=== PATIENT | female | born 1950 | race Caucasian/White ===

== ENCOUNTER → 2016-03-21 | Outpatient (CLI) | payer MEDICARE, BC ==
--- NOTE | 2016-03-21 13:51 | MM ---
Reason for exam: additional evaluation requested from prior study. Last mammogram was performed 1 year and 5 months ago. History: Patient is postmenopausal and history of other cancer. 2 implant removals of both breasts, 1997. Silicone gel implants in both breasts, 1973. Took estrogen for 5 years beginning at age 53. Took progesterone for 5 years beginning at age 53. Physical Findings: Nurse did not find any significant physical abnormalities on exam. MG 3D Diag Mammo W/Cad SLOANE Bilateral CC and MLO view(s) were taken. Prior study comparison: October 27, 2014, bilateral MG screening mammo w CAD. August 19, 2013, bilateral MG diagnostic mammo w CAD SLOANE. There are scattered fibroglandular densities. No significant new findings when compared with previous films. These results were verbally communicated with the patient and result sheet given to the patient on 03/21/16. ASSESSMENT: Benign, BI-RAD 2 RECOMMENDATION: Routine screening mammogram of both breasts in 1 year.
== END | disposition home or self-care (01) ==
LOC: RADMAMWWP 12:53
PROVIDERS: ATTEND Obstetrics & Gynecology
DX: R92.8 Other abnormal and inconclusive findings on diagnostic imaging of breast (principal)
CPT/HCPCS: G0204; G0279

== ENCOUNTER → 2016-11-25 | Outpatient (CLI) | payer MEDICARE ==
[2016-11-25 14:20] LABS: CH 33.5; CHCM 33.3; HCT 31.4 % (34.0-46.0); HDW 2.67; HGB 10.7 gm/dL (11.4-16.0); MCH 34.2 pg (25.0-35.0); MCHC 33.9 g/dL (31.0-37.0); MCV 100.9 fL (80.0-100.0); Macrocytosis Slight; Mean Platelet Volume 7.4; RBC 3.11 m/uL (3.80-5.40); RDW 15.2 % (11.5-15.5); WBC 5.2 k/uL (3.8-10.6)
[2016-11-25 14:25] LABS: Calcium 11.3 mg/dL (8.4-10.2); Potassium 4.4 mmol/L (3.5-5.1)
[2016-11-25 18:36] LABS: Iron Saturation 27.37 (12.00-45.00)
== END | disposition home or self-care (01) ==
LOC: LABWHC1 13:41
PROVIDERS: ATTEND Family Medicine
DX: R89.9 Unspecified abnormal finding in specimens from other organs, systems and tissues (principal)
CPT/HCPCS: 36415; 80048; 82728; 83540; 83550; 85027

== ENCOUNTER → 2016-11-25 | Outpatient (CLI) | payer MEDICARE ==
--- NOTE | 2016-11-25 16:06 | US ---
EXAMINATION TYPE: US kidneys/renal and bladder DATE OF EXAM: 11/25/2016 COMPARISON: [place] IVP 2010 CLINICAL HISTORY: R82.71 BACTERIURIA. Left renal stone; leukocyte esterase in urine; on Methotrexate for RA. EXAM MEASUREMENTS: Right Kidney: 10.5 x 4.8 x 3.7 cm Left Kidney: 10.6 x 4.1 x 3.7 cm Post Void Residual Volume: 0.2 mL Right Kidney: No hydronephrosis or masses seen Left Kidney: Hyperechoic, shadowing renal calcification is noted mid pole = 0.6 x 0.8 x 0.3cm Bladder: wnl Bilateral Jets seen: YesNormal Post Void Residual: Yes Cortical medullary differentiation is maintained bilaterally. IMPRESSION: Nonobstructive left nephrolithiasis.
== END | disposition home or self-care (01) ==
LOC: RADUSWWP 13:07
PROVIDERS: ATTEND Family Medicine
DX: N20.0 Calculus of kidney (principal); R82.71 Bacteriuria
CPT/HCPCS: 76770

== ENCOUNTER → 2016-12-23 | Outpatient (CLI) | payer MEDICARE ==
--- NOTE | 2016-12-25 12:45 | NM ---
EXAMINATION TYPE: NM bone scan whole body DATE OF EXAM: 12/23/2016 COMPARISON: NONE HISTORY: Pleural dyspnea Delayed whole-body scanning was performed following the injection of 27.7 mCi Tc 99m MDP. Images wer e acquired 3.5 hours post injection. FINDINGS: Spot images were obtained: There is some focal uptake in the lateral left 9th rib region. Posttraumatic change could be consider ed. Some slightly more subtle 8th rib uptake may be adjacent. There are couple of focal areas of uptake at the costovertebral junctions posterior left eighth and f ifth regions. This could be degenerative or posttraumatic. Whole-body imaging is performed. Some degenerative type uptake is at the bilateral shoulders and at t he ankles. Some degenerative type change appears to be at the bilateral hips. IMPRESSION: 1. Focal uptake left lateral ribs, most likely the eighth and ninth ribs, can be compatible with post traumatic change. Adjacent metastatic disease would be unusual. 2. Posterior left costovertebral junction uptake at the fifth and eighth levels most likely is degene rative. Posttraumatic change could be considered.
== END | disposition home or self-care (01) ==
LOC: RADBDWWP 11:33
PROVIDERS: ATTEND Family Medicine
DX: R07.81 Pleurodynia (principal)
CPT/HCPCS: 78306; A9503

== ENCOUNTER 2017-01-28 18:31 | Emergency (ER) | payer MEDICARE ==
[2017-01-28] MEDS ORDERED: SODIUM CHLORIDE 0.9% 500 ML IV STA (19:22)
[2017-01-28] MEDS ORDERED: MORPHINE SULFATE 2 MG/ML SYRINGE IVP STA (19:22)
[2017-01-28] MEDS ORDERED: SODIUM CHLORIDE 0.9% 1,000 ML IV STA (19:22)
--- NOTE | 2017-01-28 19:23 | ED ---
Recheck HPI - General Chief Complaint: Recheck/Abnormal Lab/Rx Stated Complaint: left rib pain Time Seen by Provider: 01/28/17 18:50 Source: patient, RN notes reviewed, old records reviewed Mode of arrival: ambulatory Limitations: no limitations - History of Present Illness Initial Comments: Patient is a 66-year-old female presents emergency Department chief complaint of left-sided rib pain has been intermittent since October. She reports that she 's been seen by her primary care provider multiple times. She states that they did bone scans which told her that she had a posttraumatic area over her ribs. She states that she's never had any falls or injuries to cause the pain. She denies any fever or chills. She reports is just getting over cold whenever she coughs or takes a deep breath she has to be. Patient states that she has been taking a lot of Motrin and was told that she has damaged her kidneys. She states that the pain is a 10 out of 10 whenever she takes a big deep breath. She denies any nausea or vomiting. She reports that she's had this occasional diarrhea as well. Patient states that she's had no falls or traumas to make the pain worse. It has been increasingly painful over the past 2 days. - Related Data Home Medications Medication Instructions Recorded Confirmed Brimonidine Tartrate [Alphagan P 1 drops BOTH EYES BID 01/28/17 01/28/17 0.1% Ophth Soln] Clopidogrel [Plavix] 75 mg PO W/LUNCH 01/28/17 01/28/17 Latanoprost Ophth [Xalatan 0.005%] 1 drops BOTH EYES HS 01/28/17 01/28/17 Losartan Potassium [Cozaar] 25 mg PO W/SUPPER 01/28/17 01/28/17 Methotrexate Sodium [Methotrexate] 12.5 mg PO GOMEZ 01/28/17 01/28/17 Rosuvastatin Calcium [Crestor] 5 mg PO MOWEFR 01/28/17 01/28/17 Sertraline [Zoloft] 200 mg PO W/LUNCH 01/28/17 01/28/17 Timolol [Betimol 0.5% Ophth Soln] 1 drop LEFT EYE BID 01/28/17 01/28/17 Previous Rx's Medication Instructions Recorded HYDROcodone/APAP 5-325MG [Alpine 1 tab PO Q6HR PRN #15 tab 01/28/17 5-325] Ondansetron Odt [Zofran Odt] 4 mg PO Q8HR PRN #15 tab 01/28/17 Allergies Allergy/AdvReac Type Severity Reaction Status Date / Time ciprofloxacin HCl Allergy Unknown Verified 01/28/17 19:12 [From Cipro] codeine Allergy Unknown Verified 01/28/17 19:12 Sulfa (Sulfonamide Allergy Unknown Verified 01/28/17 19:12 Antibiotics) Review of Systems ROS Statement: Those systems with pertinent positive or pertinent negative responses have been documented in the HPI. ROS Other: All systems not noted in ROS Statement are negative. Past Medical History Past Medical History: CVA/TIA, Rheumatoid Arthritis (RA) History of Any Multi-Drug Resistant Organisms: None Reported Past Surgical History: Back Surgery Past Psychological History: No Psychological Hx Reported Smoking Status: Current every day smoker Past Alcohol Use History: None Reported Past Drug Use History: None Reported General Exam - General Exam Comments Initial Comments: 66-year-old female. No acute distress. Limitations: no limitations General appearance: alert, in no apparent distress Head exam: Present: atraumatic, normocephalic, normal inspection Eye exam: Present: normal appearance, PERRL, EOMI. Absent: scleral icterus, conjunctival injection, periorbital swelling ENT exam: Present: normal exam, mucous membranes moist Neck exam: Present: normal inspection. Absent: tenderness, meningismus, lymphadenopathy Respiratory exam: Present: normal lung sounds bilaterally, chest wall tenderness (Patient has significant left-sided rib and chest wall tenderness.). Absent: respiratory distress, wheezes, rales, rhonchi, stridor Cardiovascular Exam: Present: regular rate, normal rhythm, normal heart sounds. Absent: systolic murmur, diastolic murmur, rubs, gallop, clicks GI/Abdominal exam: Present: soft, normal bowel sounds. Absent: distended, tenderness, guarding, rebound, rigid Extremities exam: Present: normal inspection, full ROM, normal capillary refill. Absent: tenderness, pedal edema, joint swelling, calf tenderness Back exam: Present: normal inspection Neurological exam: Present: alert, oriented X3, CN II-XII intact Psychiatric exam: Present: normal affect, normal mood Skin exam: Present: warm Course Vital Signs 01/28/17 01/28/17 18:39 20:43 Temperature 97.8 F Pulse Rate 96 Respiratory 18 18 Rate Blood Pressure 123/57 O2 Sat by Pulse 100 Oximetry Medical Decision Making - Medical Decision Making 66-year-old female presents emergency Department chief complaint of left-sided rib pain for the past few months due to intermittent periods and worse over the past few days. Worse over deep breath breath and coughing. Patient has significant tenderness to palpation over the left-sided rib cage. Patient labwork was reviewed, she has a known history of poor renal function, GFR today is 29. This is slightly improved from labs in November. We discussed that she cannot take any anti-inflammatory medicine as this will cause her kidney function to worsen. Patient has a history of rheumatoid arthritis as well. I discussed that combination of COPD causing chronic coughing plus are is most likely the cause of her rib pain. Discussed that she needs to follow-up with her primary care provider. Patient at this time will be discharged with pain medication and nausea medicine and she reports she does feel safe occasional she takes pain medicine. Patient will be discharged at this time. All questions were answered return parameters were discussed. - Lab Data Result diagrams: 01/28/17 19:40 01/28/17 19:40 Lab Results 01/28/17 01/28/17 01/28/17 Range/Units 19:40 19:40 19:40 WBC 6.5 (3.8-10.6) k/uL RBC 2.87 L (3.80-5.40) m/uL Hgb 9.6 L (11.4-16.0) gm/dL Hct 28.7 L (34.0-46.0) % MCV 100.2 H (80.0-100.0) fL MCH 33.6 (25.0-35.0) pg MCHC 33.5 (31.0-37.0) g/dL RDW 15.9 H (11.5-15.5) % Plt Count 193 (150-450) k/uL Neutrophils % 62 % Lymphocytes % 29 % Monocytes % 3 % Eosinophils % 3 % Basophils % 0 % Neutrophils # 4.0 (1.3-7.7) k/uL Lymphocytes # 1.9 (1.0-4.8) k/uL Monocytes # 0.2 (0-1.0) k/uL Eosinophils # 0.2 (0-0.7) k/uL Basophils # 0.0 (0-0.2) k/uL Macrocytosis Slight PT (9.0-12.0) sec INR (<1.2) APTT (22.0-30.0) sec Sodium 142 (137-145) mmol/L Potassium 4.2 (3.5-5.1) mmol/L Chloride 110 H (98-107) mmol/L Carbon Dioxide 21 L (22-30) mmol/L Anion Gap 11 mmol/L BUN 30 H (7-17) mg/dL Creatinine 2.10 H (0.52-1.04) mg/dL Est GFR (MDRD) Af Amer 29 (>60 ml/min/1.73 sqM) Est GFR (MDRD) Non-Af 24 (>60 ml/min/1.73 sqM) Glucose 126 H (74-99) mg/dL Calcium 10.0 (8.4-10.2) mg/dL Magnesium 2.0 (1.6-2.3) mg/dL Total Bilirubin 0.2 (0.2-1.3) mg/dL AST 23 (14-36) U/L ALT 32 (9-52) U/L Alkaline Phosphatase 72 (38-126) U/L Total Creatine Kinase 45 (30-135) U/L CK-MB (CK-2) 0.9 (0.0-2.4) ng/mL CK-MB (CK-2) Rel Index 2.0 Troponin I <0.012 (0.000-0.034) ng/mL C-Reactive Protein (<10.0) mg/L Total Protein 6.7 (6.3-8.2) g/dL Albumin 4.4 (3.5-5.0) g/dL Amylase 70 (30-110) U/L Lipase 157 (23-300) U/L 01/28/17 01/28/17 Range/Units 19:40 19:40 WBC (3.8-10.6) k/uL RBC (3.80-5.40) m/uL Hgb (11.4-16.0) gm/dL Hct (34.0-46.0) % MCV (80.0-100.0) fL MCH (25.0-35.0) pg MCHC (31.0-37.0) g/dL RDW (11.5-15.5) % Plt Count (150-450) k/uL Neutrophils % % Lymphocytes % % Monocytes % % Eosinophils % % Basophils % % Neutrophils # (1.3-7.7) k/uL Lymphocytes # (1.0-4.8) k/uL Monocytes # (0-1.0) k/uL Eosinophils # (0-0.7) k/uL Basophils # (0-0.2) k/uL Macrocytosis PT 10.3 (9.0-12.0) sec INR 1.0 (<1.2) APTT 23.2 (22.0-30.0) sec Sodium (137-145) mmol/L Potassium (3.5-5.1) mmol/L Chloride (98-107) mmol/L Carbon Dioxide (22-30) mmol/L Anion Gap mmol/L BUN (7-17) mg/dL Creatinine (0.52-1.04) mg/dL Est GFR (MDRD) Af Amer (>60 ml/min/1.73 sqM) Est GFR (MDRD) Non-Af (>60 ml/min/1.73 sqM) Glucose (74-99) mg/dL Calcium (8.4-10.2) mg/dL Magnesium (1.6-2.3) mg/dL Total Bilirubin (0.2-1.3) mg/dL AST (14-36) U/L ALT (9-52) U/L Alkaline Phosphatase (38-126) U/L Total Creatine Kinase (30-135) U/L CK-MB (CK-2) (0.0-2.4) ng/mL CK-MB (CK-2) Rel Index Troponin I (0.000-0.034) ng/mL C-Reactive Protein <5.0 (<10.0) mg/L Total Protein (6.3-8.2) g/dL Albumin (3.5-5.0) g/dL Amylase (30-110) U/L Lipase (23-300) U/L 01/28/17 21:07 EKG shows normal sinus rhythm, ventricular rate of 82 bpm. WV interval 196 ms. QRS duration 76. QT QTC reports that 397 ms. No evidence of ST elevation or T-wave inversions. No speech or ventricular arrhythmias. - Radiology Data Radiology results: report reviewed Chest x-ray today shows Chronic changes possible underlying COPD, no acute process noted. Bone scan on December 2016 shows Focal uptake in the left lateral ribs most likely the eighth and ninth ribs can be compatible with posttraumatic changes. Adjacent metastatic disease would be unusual. Posterior left costovertebral junction uptake at the fifth and eighth levels most likely is degenerative. Postemetic change could also be considered. Disposition Clinical Impression: Rib pain on left side, Poor kidney function Disposition: HOME SELF-CARE Condition: Good Instructions: Costochondritis (ED) Additional Instructions: Patient has a take the pain medication at night. Also use nausea medicine as needed. Patient should return to emergency department if any alarming signs or symptoms occur. Discussed close follow-up with primary care provider as well. Prescriptions: HYDROcodone/APAP 5-325MG [Alpine 5-325] 1 tab PO Q6HR PRN #15 tab PRN Reason: Pain Ondansetron Odt [Zofran Odt] 4 mg PO Q8HR PRN #15 tab PRN Reason: Nausea Referrals: Kirby Villalobos DO [Primary Care Provider] - 1-2 days Time of Disposition: 21:09
[2017-01-28 19:54] LABS: Basophils % (A) 0 %; CH 34.4; CHCM 34.5; Eosinophils # (A) 0.2 k/uL (0-0.7); Eosinophils % (A) 3 %; HCT 28.7 % (34.0-46.0); HDW 2.96; HGB 9.6 gm/dL (11.4-16.0); Luc # (Auto) 0.21; Luc % (Auto) 3; Lymphocytes # (A) 1.9 k/uL (1.0-4.8); Lymphocytes % (A) 29 %; MCH 33.6 pg (25.0-35.0); MCHC 33.5 g/dL (31.0-37.0); MCV 100.2 fL (80.0-100.0); Macrocytosis Slight; Mean Platelet Volume 7.4; Monocytes # (A) 0.2 k/uL (0-1.0); Monocytes % (A) 3 %; Neutrophils % (A) 62 %; RBC 2.87 m/uL (3.80-5.40); RDW 15.9 % (11.5-15.5); WBC 6.5 k/uL (3.8-10.6); WBC (Perox) 6.15
[2017-01-28 20:06] LABS: Potassium 4.2 mmol/L (3.5-5.1); Total Bilirubin 0.2 mg/dL (0.2-1.3); Total Protein 6.7 g/dL (6.3-8.2)
[2017-01-28 20:11] LABS: Partial Thromboplastin Time 23.2 sec (22.0-30.0); Prothrombin Time 10.3 sec (9.0-12.0)
[2017-01-28 20:14] LABS: Creatine Kinase 45 U/L (30-135)
[2017-01-28 20:27] LABS: Creatine Kinase MB 0.9 ng/mL (0.0-2.4); Troponin I <0.012 ng/mL (0.000-0.034)
--- NOTE | 2017-01-28 20:39 | XR ---
EXAMINATION TYPE: XR chest 2V DATE OF EXAM: 01/28/2017 COMPARISON: 06/03/2009 HISTORY: 66-year-old female with chest pain TECHNIQUE: PA and lateral views FINDINGS: Heart is normal size. Aorta and pulmonary vasculature within normal limits. Mild diffuse interstitial prominence is unchanged from 2009. Mild hyperinflation and flattening of the hemidiaphragms. No cons olidation or pleural effusion. IMPRESSION: Chronic changes, possible underlying COPD. No acute process seen.
[2017-01-28] MEDS ORDERED: traMADol 50 MG STARTER PACK 3 TAB BTL PO STA (21:11)
[2017-01-28 21:27] VITALS: BP 142/64; PULSE 77; RESP 16; TEMP 97
== END 2017-01-28 21:26 | disposition home or self-care (01) ==
LOC: EC 18:31
DX: R07.81 Pleurodynia (principal); N28.9 Disorder of kidney and ureter, unspecified; R19.7 Diarrhea, unspecified; M06.9 Rheumatoid arthritis, unspecified; F17.200 Nicotine dependence, unspecified, uncomplicated; Z79.02 Long term (current) use of antithrombotics/antiplatelets; Z79.899 Other long term (current) drug therapy; Z88.1 Allergy status to other antibiotic agents; Z88.2 Allergy status to sulfonamides; Z88.5 Allergy status to narcotic agent; Z86.73 Personal history of transient ischemic attack (TIA), and cerebral infarction without residual deficits
CPT/HCPCS: 99284; 96374; 96361; 36415; 93005; 80053; 82150; 82550; 82553; 83690; 83735; 84484; 85025; 85610; 85730; 86140; 71020; J2270

== ENCOUNTER → 2017-03-14 | Outpatient (CLI) | payer MEDICARE ==
--- NOTE | 2017-03-14 21:49 | CT ---
EXAMINATION TYPE: CT chest wo con DATE OF EXAM: 03/14/2017 COMPARISON: NONE HISTORY: Left sided chest pain. CT DLP: 403 mGycm. Automated Exposure Control for Dose Reduction was Utilized. TECHNIQUE: CT scan of the thorax is performed without IV contrast. FINDINGS: LUNGS: There is background moderate emphysematous change. Lungs are grossly clear. No concerning pare nchymal nodule or mass is present. No pleural effusion or pneumothorax is seen bilaterally. Tracheobr onchial tree is patent. MEDIASTINUM: Lack of IV contrast is noted to limit evaluation for mediastinal and especially hilar a denopathy. There are no definitive greater than 1 cm hilar or mediastinal lymph nodes. No cardiomeg kavon or pericardial effusion is seen. There are prominent right and left pulmonary arteries suggesting underlying pulmonary artery hypertension. There is mild to minimal calcified plaque in the visualize d thoracic aorta. More dense calcified plaque is seen in visualized portion of the infrarenal abdomin al aorta. Ascending aorta measures up to 3.2 cm in diameter. OTHER: There is mild multilevel spurring in the thoracic spine. Calcified disc is noted L1-L2 level. IMPRESSION: 1. No significant finding is seen to account for patient's symptoms of left-sided chest pain. 2. There is background moderate emphysematous change and probable underlying pulmonary artery hyperte nsion. No acute pulmonary process is seen.
== END ==
LOC: RADCTMAIN 16:30
PROVIDERS: ATTEND Family Medicine
DX: J43.9 Emphysema, unspecified (principal); R07.89 Other chest pain
CPT/HCPCS: 71250

== ENCOUNTER → 2017-03-31 | Outpatient (CLI) | payer MEDICARE ==
[2017-03-31 17:52] LABS: Albumin 3.9 g/dL (3.5-5.0); Calcium 12.2 mg/dL (8.4-10.2); Magnesium 2.1 mg/dL (1.6-2.3); Potassium 4.3 mmol/L (3.5-5.1); Uric Acid 9.5 mg/dL (3.7-7.4)
[2017-03-31 17:54] LABS: Anisocytosis Slight; Basophils % (A) 0 %; Eosinophils # (A) 0.2 k/uL (0-0.7); Eosinophils % (A) 3 %; HCT 26.2 % (34.0-46.0); HGB 8.3 gm/dL (11.4-16.0); Lymphocytes # (A) 0.7 k/uL (1.0-4.8); Lymphocytes % (A) 16 %; MCH 33.3 pg (25.0-35.0); MCHC 31.5 g/dL (31.0-37.0); Macrocytosis Moderate; Mean Platelet Volume 8.2; Monocytes # (A) 0.1 k/uL (0-1.0); Monocytes % (A) 2 %; Neutrophils # (A) 3.6 k/uL (1.3-7.7); Neutrophils % (A) 77 %; Platelet Count 159 k/uL (150-450); RBC 2.48 m/uL (3.80-5.40); WBC 4.7 k/uL (3.8-10.6)
[2017-03-31 18:00] LABS: MCV 105.8 fL (80.0-100.0)
[2017-03-31 18:14] LABS: Appearance,Urine Turbid (Clear); Bacteria,Urine Many /hpf; Bilirubin,Urine Negative (Negative); Blood,Urine Moderate (Negative); Calcium Oxalate Crystals,Urine Moderate /hpf; Color,Urine Yellow; Glucose,Urine (UA) Negative (Negative); Ketones,Urine Trace (Negative); Leukocyte Esterase,Urine Large (Negative); Mucus,Urine Occasional /hpf; Nitrite,Urine Negative (Negative); PH, Urine 5.5 (5.0-8.0); Protein,Urine 2+ (Negative); RBC,Urine 100 /hpf (0-5); Squamous Epithelial Cell,Urine 2 /hpf (0-4); Urobilinogen,Urine <2.0 mg/dL (<2.0); WBC,Urine >182 /hpf (0-5)
[2017-03-31 18:31] LABS: Creatinine,Urine Random 143.2 mg/dL
[2017-03-31 18:38] LABS: Total Protein,Urine Random >600 mg/dL (<12)
[2017-04-01 01:09] LABS: Anti-DNA, DS unit <1.0 IU/mL; DNA Double-Stranded NEGATIVE (NEGATIVE)
[2017-04-01 01:19] LABS: Iron Saturation 20.97 (12.00-45.00)
[2017-04-01 01:20] LABS: Vitamin D 25 Hydroxy 39.8 ng/mL (30.0-100.0)
[2017-04-01 02:02] LABS: Parathyroid Hormone Intact <5.5 pg/mL (14.0-72.0)
[2017-04-01 06:28] LABS: Angiotensin-1 Converting Enz. 42 U/L (8-52)
[2017-04-03 14:09] LABS: C-ANCA <1:20 Titer (<1:20); P-ANCA <1:20 Titer (<1:20)
== END | disposition home or self-care (01) ==
LOC: LABWHC1 17:02
PROVIDERS: ATTEND Nurse Practitioner Family
DX: E83.52 Hypercalcemia (principal); N17.9 Acute kidney failure, unspecified; R80.9 Proteinuria, unspecified; N39.0 Urinary tract infection, site not specified; D64.9 Anemia, unspecified; M10.9 Gout, unspecified
CPT/HCPCS: 36415; 80048; 81001; 82040; 82164; 82306; 82570; 82728; 83516; 83540; 83550; 83735; 83883; 83970; 84100; 84156; 84166; 84550; 85025; 86038; 86160; 86162; 86225; 86255; 86334

== ENCOUNTER 2017-04-05 17:10 | Inpatient (IN) | payer MEDICARE ==
[2017-04-05] MEDS ORDERED: ONDANSETRON 4 MG/2 ML VIAL IVP STA (19:47)
[2017-04-05] MEDS ORDERED: SODIUM CHLORIDE 0.9% 1,000 ML IV STA (19:47)
[2017-04-05] MEDS ORDERED: RX INFO: IV CONTRAST WAS GIVEN 1 EACH MISC MISCELLANE PRN (19:47)
[2017-04-05] MEDS ORDERED: SODIUM CHLORIDE 0.9% 500 ML IV STA (19:47)
[2017-04-05] MEDS ORDERED: MORPHINE SULFATE 5 MG/ML SYRINGE IV STA (19:49)
--- NOTE | 2017-04-05 19:50 | ED ---
General Adult HPI - General Chief complaint: Nausea/Vomiting/Diarrhea Stated complaint: Weakness Time Seen by Provider: 04/05/17 19:24 Source: patient, RN notes reviewed, old records reviewed Mode of arrival: wheelchair Limitations: no limitations - History of Present Illness Initial comments: This is a 66-year-old female to the ER for evaluation of chest pain, abdominal pain, nausea vomiting. Patient concern for nausea vomiting and change of her chest pain from her right side to her left side. Patient states she was taking [place] at the time for pain but currently is not taking any medication or no modifying factors. Pain is worse when she presses on it but is very severe. Patient states he feels like she is being stabbed with a knife. Patient denies shortness of breath no fevers. No recent travel history or sick contacts. Patient has had multiple evaluation regards to this pain with no significant findings - Related Data Home Medications Medication Instructions Recorded Confirmed Clopidogrel [Plavix] 75 mg PO W/LUNCH 01/28/17 04/05/17 Latanoprost Ophth [Xalatan 0.005%] 1 drops BOTH EYES HS 01/28/17 04/05/17 Losartan Potassium [Cozaar] 25 mg PO W/SUPPER 01/28/17 04/05/17 Methotrexate Sodium [Methotrexate] 12.5 mg PO GOMEZ 01/28/17 04/05/17 Rosuvastatin Calcium [Crestor] 5 mg PO MOWEFR 01/28/17 04/05/17 Sertraline [Zoloft] 200 mg PO W/LUNCH 01/28/17 04/05/17 Brimonidine Tartrate [Alphagan P 1 drops BOTH EYES BID 04/05/17 04/05/17 0.2% Ophth Soln] Allergies Allergy/AdvReac Type Severity Reaction Status Date / Time ciprofloxacin HCl Allergy Unknown Verified 04/05/17 19:31 [From Cipro] codeine Allergy Unknown Verified 04/05/17 19:31 Sulfa (Sulfonamide Allergy Unknown Verified 04/05/17 19:31 Antibiotics) Review of Systems ROS Statement: Those systems with pertinent positive or pertinent negative responses have been documented in the HPI. ROS Other: All systems not noted in ROS Statement are negative. Past Medical History Past Medical History: CVA/TIA, Rheumatoid Arthritis (RA) History of Any Multi-Drug Resistant Organisms: None Reported Past Surgical History: Back Surgery Past Psychological History: No Psychological Hx Reported Smoking Status: Current every day smoker Past Alcohol Use History: None Reported Past Drug Use History: None Reported General Exam Limitations: no limitations General appearance: alert, in no apparent distress Head exam: Present: atraumatic, normocephalic, normal inspection Eye exam: Present: normal appearance, PERRL, EOMI. Absent: scleral icterus, conjunctival injection, periorbital swelling ENT exam: Present: normal exam, mucous membranes moist Neck exam: Present: normal inspection. Absent: tenderness, meningismus, lymphadenopathy Respiratory exam: Present: normal lung sounds bilaterally. Absent: respiratory distress, wheezes, rales, rhonchi, stridor Cardiovascular Exam: Present: regular rate, normal rhythm, normal heart sounds. Absent: systolic murmur, diastolic murmur, rubs, gallop, clicks GI/Abdominal exam: Present: soft, normal bowel sounds. Absent: distended, tenderness, guarding, rebound, rigid Extremities exam: Present: normal inspection, full ROM, normal capillary refill. Absent: tenderness, pedal edema, joint swelling, calf tenderness Back exam: Present: normal inspection Neurological exam: Present: alert, oriented X3, CN II-XII intact Psychiatric exam: Present: normal affect, normal mood Skin exam: Present: warm, dry, intact, normal color. Absent: rash Course Vital Signs 04/05/17 04/05/17 17:13 21:39 Temperature 97.4 F L 97.7 F Pulse Rate 94 80 Respiratory 17 18 Rate Blood Pressure 133/59 147/77 O2 Sat by Pulse 100 99 Oximetry - Reevaluation(s) Reevaluation #1: 04/05/17 19:50 Medical records reviewed including prior CT, ultrasound, bone density scan Reevaluation #2: 04/05/17 19:50 Patient is achieved improved pain control at this time EKG Findings - EKG Comments: EKG Findings:: EKG shows normal sinus rhythm rate of 86, SD 180, QRS 80, QTC 397 Medical Decision Making - Medical Decision Making 66 female the ER for evaluation of chest pain rib pain body aches and pains, hypercalcemia dehydration, will admit for renal failure. He to be seen by nephrology - Lab Data Result diagrams: 04/05/17 20:18 04/05/17 20:18 Lab Results 0104/05/17 04/05/17 Range/Units 20:18 20:18 20:18 WBC 4.5 (3.8-10.6) k/uL RBC 2.63 L (3.80-5.40) m/uL Hgb 8.9 L (11.4-16.0) gm/dL Hct 27.4 L (34.0-46.0) % MCV 104.5 H (80.0-100.0) fL MCH 33.9 (25.0-35.0) pg MCHC 32.5 (31.0-37.0) g/dL RDW 17.5 H (11.5-15.5) % Plt Count 198 (150-450) k/uL Neutrophils % 74 % Lymphocytes % 18 % Monocytes % 2 % Eosinophils % 2 % Basophils % 0 % Neutrophils # 3.3 (1.3-7.7) k/uL Lymphocytes # 0.8 L (1.0-4.8) k/uL Monocytes # 0.1 (0-1.0) k/uL Eosinophils # 0.1 (0-0.7) k/uL Basophils # 0.0 (0-0.2) k/uL Hypochromasia Slight Anisocytosis Slight Macrocytosis Moderate PT (9.0-12.0) sec INR (<1.2) APTT (22.0-30.0) sec D-Dimer (<0.60) mg/L FEU Sodium 142 (137-145) mmol/L Potassium 4.5 (3.5-5.1) mmol/L Chloride 109 H (98-107) mmol/L Carbon Dioxide 22 (22-30) mmol/L Anion Gap 11 mmol/L BUN 37 H (7-17) mg/dL Creatinine 2.96 H (0.52-1.04) mg/dL Est GFR (MDRD) Af Amer 19 (>60 ml/min/1.73 sqM) Est GFR (MDRD) Non-Af 16 (>60 ml/min/1.73 sqM) Glucose 88 (74-99) mg/dL Calcium 13.4 H* (8.4-10.2) mg/dL Phosphorus 4.8 H (2.5-4.5) mg/dL Magnesium 2.1 (1.6-2.3) mg/dL Total Bilirubin 0.4 (0.2-1.3) mg/dL AST 47 H (14-36) U/L ALT 35 (9-52) U/L Alkaline Phosphatase 122 (38-126) U/L Total Creatine Kinase 28 L (30-135) U/L CK-MB (CK-2) 0.9 (0.0-2.4) ng/mL CK-MB (CK-2) Rel Index 3.2 Troponin I <0.012 (0.000-0.034) ng/mL Total Protein 6.7 (6.3-8.2) g/dL Albumin 3.9 (3.5-5.0) g/dL Lipase 109 (23-300) U/L 04/05/17 Range/Units 20:18 WBC (3.8-10.6) k/uL RBC (3.80-5.40) m/uL Hgb (11.4-16.0) gm/dL Hct (34.0-46.0) % MCV (80.0-100.0) fL MCH (25.0-35.0) pg MCHC (31.0-37.0) g/dL RDW (11.5-15.5) % Plt Count (150-450) k/uL Neutrophils % % Lymphocytes % % Monocytes % % Eosinophils % % Basophils % % Neutrophils # (1.3-7.7) k/uL Lymphocytes # (1.0-4.8) k/uL Monocytes # (0-1.0) k/uL Eosinophils # (0-0.7) k/uL Basophils # (0-0.2) k/uL Hypochromasia Anisocytosis Macrocytosis PT 9.8 (9.0-12.0) sec INR 1.0 (<1.2) APTT 19.7 L (22.0-30.0) sec D-Dimer 0.68 H (<0.60) mg/L FEU Sodium (137-145) mmol/L Potassium (3.5-5.1) mmol/L Chloride (98-107) mmol/L Carbon Dioxide (22-30) mmol/L Anion Gap mmol/L BUN (7-17) mg/dL Creatinine (0.52-1.04) mg/dL Est GFR (MDRD) Af Amer (>60 ml/min/1.73 sqM) Est GFR (MDRD) Non-Af (>60 ml/min/1.73 sqM) Glucose (74-99) mg/dL Calcium (8.4-10.2) mg/dL Phosphorus (2.5-4.5) mg/dL Magnesium (1.6-2.3) mg/dL Total Bilirubin (0.2-1.3) mg/dL AST (14-36) U/L ALT (9-52) U/L Alkaline Phosphatase (38-126) U/L Total Creatine Kinase (30-135) U/L CK-MB (CK-2) (0.0-2.4) ng/mL CK-MB (CK-2) Rel Index Troponin I (0.000-0.034) ng/mL Total Protein (6.3-8.2) g/dL Albumin (3.5-5.0) g/dL Lipase (23-300) U/L - Radiology Data Radiology results: report reviewed (Chest x-ray ultrasound gallbladder negative for acute disease), image reviewed Disposition Clinical Impression: Dehydration, Chest pain, ARF (acute renal failure), Hypercalcemia Disposition: HOME SELF-CARE Condition: Good Referrals: Kirby Villalobos DO [Primary Care Provider] - 1-2 days
[2017-04-05 20:37] LABS: Anisocytosis Slight; Basophils % (A) 0 %; Eosinophils # (A) 0.1 k/uL (0-0.7); Eosinophils % (A) 2 %; HCT 27.4 % (34.0-46.0); HGB 8.9 gm/dL (11.4-16.0); Hypochromasia Slight; Lymphocytes # (A) 0.8 k/uL (1.0-4.8); Lymphocytes % (A) 18 %; MCH 33.9 pg (25.0-35.0); MCHC 32.5 g/dL (31.0-37.0); MCV 104.5 fL (80.0-100.0); Macrocytosis Moderate; Mean Platelet Volume 9.2; Monocytes # (A) 0.1 k/uL (0-1.0); Monocytes % (A) 2 %; Neutrophils # (A) 3.3 k/uL (1.3-7.7); Neutrophils % (A) 74 %; Platelet Count 198 k/uL (150-450); RBC 2.63 m/uL (3.80-5.40); RDW 17.5 % (11.5-15.5); WBC 4.5 k/uL (3.8-10.6)
[2017-04-05 20:49] LABS: Albumin 3.9 g/dL (3.5-5.0); Magnesium 2.1 mg/dL (1.6-2.3); Phosphorus 4.8 mg/dL (2.5-4.5); Potassium 4.5 mmol/L (3.5-5.1); Total Bilirubin 0.4 mg/dL (0.2-1.3); Total Protein 6.7 g/dL (6.3-8.2)
[2017-04-05 20:55] LABS: Creatine Kinase 28 U/L (30-135)
[2017-04-05 20:56] LABS: Calcium 13.4 mg/dL (8.4-10.2)
[2017-04-05 21:08] LABS: Creatine Kinase MB 0.9 ng/mL (0.0-2.4); Troponin I <0.012 ng/mL (0.000-0.034)
[2017-04-05 21:15] LABS: D-Dimer 0.68 mg/L FEU (<0.60); Prothrombin Time 9.8 sec (9.0-12.0)
[2017-04-05 21:22] LABS: Partial Thromboplastin Time 19.7 sec (22.0-30.0)
--- NOTE | 2017-04-05 21:47 | XR ---
EXAMINATION TYPE: XR chest 2V DATE OF EXAM: 04/05/2017 COMPARISON: 01/28/2017 HISTORY: Weakness TECHNIQUE: Frontal and lateral views of the chest are obtained. FINDINGS: Heart and mediastinum are within normal limits. There is pulmonary hyperinflation and flat tening of the diaphragm. There are no hilar masses. There are chest leads. The bony thorax is intact. IMPRESSION: COPD. No acute lung disease. No change compared to old exam.
[2017-04-05] MEDS ORDERED: MORPHINE SULFATE 2 MG/ML SYRINGE IVP PRN (21:48)
[2017-04-05] MEDS ORDERED: SODIUM CHLORIDE 0.9% 1,000 ML IV ONE (21:48)
--- NOTE | 2017-04-05 22:22 | US ---
EXAMINATION TYPE: US gallbladder DATE OF EXAM: 04/05/2017 COMPARISON: CT 04/05/2017 CLINICAL HISTORY: Pain. EXAM MEASUREMENTS: Liver Length: 16.4 cm Gallbladder Wall: 0.1 cm CBD: 0.3 cm Right Kidney: 10.6 x 4.0 x 5.0 cm Liver: wnl Gallbladder: No stones seen Evidence for sonographic Julian's sign: no CBD: wnl Right Kidney: No hydronephrosis or masses seen Pancreas not seen. Essential normal scan. IMPRESSION: No gallstones or dilated ducts. Normal exam.
[2017-04-06] MEDS ORDERED: ENOXAPARIN 40 MG/0.4 ML SYRINGE SQ SCH (09:00)
--- NOTE | 2017-04-06 09:00 | NM ---
EXAMINATION TYPE: NM pul vent and perfuse DATE OF EXAM: 04/06/2017 COMPARISON: Chest radiograph dated 04/05/2017 HISTORY: COPD and shortness of breath TECHNIQUE: Utilizing inhalation of 76.1 mCi Tc 99m DTPA aerosol and intravenous injection of 5.4 mCi of Tc 99m MAA, ventilation and perfusion images are acquired post injection in multiple projections. FINDINGS: There is mild patchiness of the radiotracer uptake throughout the lungs with decreased uptake with mu ltiple matched defects and no distinct mismatched defects. Focal retention/trapping indicative of obs tructive lung disease. No focal opacity in the prior chest radiograph. IMPRESSION: Low probability for pulmonary embolus. Radiotracer trapping of COPD.
[2017-04-06] MEDS: BRIMONIDINE TARTRATE 0.2% DROPS 5 ML BTL BOTH EYES SCH ×2 (09:03→21:50)
--- NOTE | 2017-04-06 10:23 | P.NPCON ---
History of Present Illness - Reason for Consult acute renal failure - History of Present Illness Reason for consultation: Acute kidney injury on chronic kidney disease History of present illness: Patient is a 66-year-old female seen in renal consultation for acute kidney injury on chronic kidney disease. Her creatinine in November 2016 was 2.1 and was elevated at 2.9 as of March 31. This admission was 2.96. Patient does follow with us in the office and is unclear as to what her prior renal function was. Patient presented to the hospital with nausea and vomiting dusting going on for the last few days. She states she is having at least 2-3 episodes of vomiting and multiple episodes of loose bowel moments on a daily basis. She also admits to pain in her ribs. Gallbladder ultrasound was benign and VQ scan revealed low evidence of PE. She is currently resting in bed. States appetite is quite poor. Denies any dyspnea. She does have history of taking Motrin for several years which she stopped a few months ago. She also has serologic workup done last week which revealed significantly elevated Free light chains which was also positive immunofixation. No fever or chills. Hemodynamically stable. Vital signs are stable. General: The patient appeared well nourished and normally developed. HEENT: Head exam is unremarkable. Neck is without jugular venous distension. LUNGS: Lungs are clear to auscultation and percussion. Breath sounds decreased. HEART: Rate and Rhythm are regular. First and second heart sounds normal. No murmurs, rubs or gallops. ABDOMEN: Abdominal exam reveals normal bowel sounds. Non-tender and non- distended. No evidence of peritonitis. EXTREMITITES: No clubbing, cyanosis, or edema. Past Medical History Past Medical History: CVA/TIA, Hyperlipidemia, Hypertension, Rheumatoid Arthritis (RA) History of Any Multi-Drug Resistant Organisms: None Reported Past Surgical History: Back Surgery Additional Past Surgical History / Comment(s): LUMBAR FUSION 1.5 YRS AGO, BREAT IMPLANTS IN THE 70'S REMOVED MID 'S Past Anesthesia/Blood Transfusion Reactions: No Reported Reaction Past Psychological History: No Psychological Hx Reported Smoking Status: Former smoker Past Alcohol Use History: None Reported Past Drug Use History: None Reported - Past Family History Father Additional Family Medical History / Comment(s): FATHER 99 YRS OLD STILL LIVING [facility] PROSTATE ISSUES Mother Family Medical History: Cancer Additional Family Medical History / Comment(s): LUNG CANCER Medications and Allergies Home Medications Medication Instructions Recorded Confirmed Type Clopidogrel [Plavix] 75 mg PO W/LUNCH 01/28/17 04/05/17 History Latanoprost Ophth [Xalatan 0.005%] 1 drops BOTH EYES HS 01/28/17 04/05/17 History Losartan Potassium [Cozaar] 25 mg PO W/SUPPER 01/28/17 04/05/17 History Methotrexate Sodium [Methotrexate] 12.5 mg PO GOMEZ 01/28/17 04/05/17 History Rosuvastatin Calcium [Crestor] 5 mg PO MOWEFR 01/28/17 04/05/17 History Sertraline [Zoloft] 200 mg PO W/LUNCH 01/28/17 04/05/17 History Brimonidine Tartrate [Alphagan P 1 drops BOTH EYES BID 04/05/17 04/05/17 History 0.2% Ophth Soln] Allergies Allergy/AdvReac Type Severity Reaction Status Date / Time ciprofloxacin HCl Allergy Unknown Verified 04/05/17 19:31 [From Cipro] codeine Allergy Unknown Verified 04/05/17 19:31 Sulfa (Sulfonamide Allergy Unknown Verified 04/05/17 19:31 Antibiotics) Physical Exam Vitals: Vital Signs Temp Pulse Pulse Resp BP BP Pulse Ox 04/06/17 04:00 98.1 F 109 H 18 132/59 90 L 04/05/17 23:09 97.5 F L 83 18 140/63 95 04/05/17 23:00 97.5 F L 82 18 140/63 95 04/05/17 21:39 97.7 F 80 18 147/77 99 04/05/17 17:13 97.4 F L 94 17 133/59 100 Intake and Output 04/05/17 04/06/17 04/06/17 22:59 06:59 14:59 Other: Voiding Method Toilet # Voids 1 Weight 54.431 kg 54.43 kg Results - Lab Results Most recent lab results Calcium 13.4 mg/dL (8.4-10.2) H* 04/05/17 20:18 Phosphorus 4.8 mg/dL (2.5-4.5) H 04/05/17 20:18 Magnesium 2.1 mg/dL (1.6-2.3) 04/05/17 20:18 04/05/17 20:18 04/05/17 20:18 Assessment and Plan Plan: Assessment: #1. Nonoliguric acute kidney injury mostly prerenal from vomiting and diarrhea. Creatinine 2.96 on admission. #2. Chronic kidney disease stage 4 secondary to chronic interstitial nephritis from NSAID abuse and component of myeloma kidney as well. #3. Hypercalcemia secondary to multiple myeloma. She was taking calcium supplements which were discontinued as an outpatient. Her PTH was appropriately suppressed. Vitamin D and injury to the converting enzyme were in the normal limits. Her Light chains are noted to be significantly elevated. #4. Benign hypertension. Currently controlled. #5. Vomiting and diarrhea. Unclear etiology. Gallbladder ultrasound benign. Possibly gastroenteritis. Plan: Continue normal saline to be run at 100 mL an hour. Follow-up morning labs. If calcium not trending down, I will give her a dose of intramuscular calcitonin and a dose of intravenous pamidronate. Consider oncology consultation. Repeat electrolytes in the morning. Avoid nephrotoxic agents and hypotensive episodes. Thank you for the consultation. I will continue to follow the patient with you during her hospital stay.
[2017-04-06 10:55] LABS: Calcium 11.9 mg/dL (8.4-10.2); Potassium 4.3 mmol/L (3.5-5.1)
[2017-04-06] MEDS ORDERED: ACETAMINOPHEN TAB 325 MG TAB PO PRN (13:31)
[2017-04-06] MEDS: CLOPIDOGREL 75 MG TAB PO SCH (13:44)
[2017-04-06] MEDS: SERTRALINE 100 MG TAB PO SCH (13:44)
[2017-04-06] MEDS: ONDANSETRON 4 MG/2 ML VIAL IVP PRN (17:26)
[2017-04-06] MEDS ORDERED: LOSARTAN 25 MG TAB PO SCH (17:30)
[2017-04-06] MEDS ORDERED: PANTOPRAZOLE 40 MG TABLET PO SCH (18:30)
--- NOTE | 2017-04-06 20:04 | HP ---
HISTORY AND PHYSICAL DATE OF ADMISSION: 04/05/2017 PRESENTING COMPLAINT: Chest pain, nausea, vomiting. HISTORY OF PRESENTING COMPLAINT: A very pleasant 66-year-old patient of Dr. Villalobos whose chronic stable medical conditions include hypertension, hyperlipidemia and rheumatoid arthritis, the latter of which she follows with Dr. Plasencia, the cutter machine tender. The patient has rheumatoid arthritis, rather extensive, including hands, elbows, knees, ankles. The patient also has chronic kidney disease with a baseline creatinine of 2.1 as of January 2017. The patient presents with bilateral rib pain going on for several months. It is worse if she touches it or she moves her body. Hence, she is presenting here. She has not really talked to Dr. Plasencia about the same. The patient also is having nausea and oftentimes the patient states she was taking some pills, she will throw it right back up. The patient losing some weight because of the same. REVIEW OF SYSTEMS: CONSTITUTIONAL: Weak, tired, loss of appetite. HEENT: None. RESPIRATORY: None. CARDIOVASCULAR: None. MUSCULOSKELETAL: As above. DERMATOLOGICAL: None. HEMATOLOGIC: None. LYMPHATIC: None. PSYCHIATRY: None. NEUROLOGICAL: None. PAST HISTORY: Hypertension, hyperlipidemia, rheumatoid arthritis, chronic kidney disease. PAST SURGICAL HISTORY: Back surgery, lumbar fusion 1-1/2 years ago, breast implants in the , removed in the . SOCIAL HISTORY: The patient smoked in the past. . No alcohol. Family history of cancer. Father is 99, still around. HOME MEDICATIONS: 1. Zoloft 200 mg with lunch. 2. Crestor 5 mg Monday, Monday and Monday. 3. Methotrexate 12.5 p.o. on Monday. 4. Cozaar 25 mg with supper. 5. Xalatan 0.005% 1 drop to both eyes q.h.s. 6. Plavix 75 mg at lunch. 7. Alphagan 0.2% 1 drop to both eyes b.i.d. ALLERGIES: To CIPRO, CODEINE, SULFUR. EXAMINATION: VITAL SIGNS ON PRESENTATION: Temperature 97.4, pulse 94, respirations 17, blood pressure 133/59, pulse ox 100% on room air. GENERAL APPEARANCE: Average built, sitting up, very tired-appearing. EYES: Pupils normal. Conjunctivae pale. HEENT: Oral cavity normal. NECK: JVD not raised. Mass not palpable. RESPIRATORY: Effort normal. LUNGS: Fair air entry. CARDIOVASCULAR: First and second sounds normal. Minimal edema. ABDOMEN: Soft, nontender. Liver and spleen not palpable. LYMPHATIC: No lymph node palpable in neck or axillae. PSYCHIATRY: Alert and oriented x3. Mood and affect slightly anxious-appearing. MUSCULOSKELETAL: Patient has significant tenderness on both the anterior chest wall at the costochondral junction and also evidence of rheumatoid arthritis in the hands. INVESTIGATIONS: White count 4.5, hemoglobin 8.9 with macrocytosis with platelets 198. Potassium 4.5, BUN 37, creatinine 2.96. Calcium 13.4. EKG: Normal sinus rhythm. Ultrasound of the abdomen unremarkable. V/Q scan low probability. ASSESSMENT: 1. Acute renal failure, likely prerenal in a patient whose BUN and creatinine were 30/2.10 in January 2017, likely from poor oral intake. The patient is also on Cozaar. 2. Chronic kidney disease stage 4 from hypertensive nephrosclerosis. 3. Macrocytic anemia, cause unknown. Will check for B12, folate. 4. Essential hypertension. 5. Hyperlipidemia. 6. Depression, not otherwise specified. 7. Significant rheumatoid arthritis in multiple joints. 8. Bilateral chest pains, reproducible at the costochondral junction, likely costochondritis, could be related to rheumatoid arthritis. 9. Persistent nausea, vomiting. Oral cavity exam is unremarkable. This could be from reflux. The patient did take Motrin for quite a while and could be having underlying peptic ulcer disease. 10.Hypercalcemia. Could be from multiple myeloma. The patient's parathyroid hormone was suppressed. The patient had light chains as noted that were elevated. PLAN: At this point, patient's Cozaar will be discontinued. The patient is being hydrated. Nephrology, Dr. Gutierrez was consulted. Will also get a consultation from Oncology. Will consult GI with a view to EGD. The patient may well have underlying suspicious for peptic ulcer disease. Will use Reglan to see if that curtails the nausea. Will use for blood pressure control Norvasc 2.5 starting tonight. Other medications and treatment plan is to continue. Avoid the morphine, as will contribute to her nausea, vomiting. Care was discussed in detail with the patient. Questions were answered. We will also check patient's lipid profile to see whether she really needs Crestor and that could be contributing to muscle weakness. The patient seems to have very little muscle mass. MMODL / IJN: [id number] /
[2017-04-06] MEDS: Acetaminophen-Codeine 300-30mg TAB PO SCH ×2 (21:42→23:53)
[2017-04-06] MEDS: LATANOPROST 0.005% OPHTH DROPS 2.5 ML BTL BOTH EYES SCH (21:50)
[2017-04-06] MEDS: amLODIPine 2.5 MG TAB PO SCH (21:50)
[2017-04-06] MEDS: METOCLOPRAMIDE 5 MG TAB PO SCH (21:50)
[2017-04-07] MEDS: Acetaminophen-Codeine 300-30mg TAB PO SCH (06:09)
[2017-04-07] MEDS: PANTOPRAZOLE 40 MG TABLET PO SCH (06:25)
[2017-04-07] MEDS: METOCLOPRAMIDE 5 MG TAB PO SCH ×3 (06:25→18:58)
[2017-04-07 07:34] LABS: Calcium 11.2 mg/dL (8.4-10.2); Potassium 4.4 mmol/L (3.5-5.1)
[2017-04-07] MEDS ORDERED: ENOXAPARIN 30 MG/0.3 ML SYRINGE SQ SCH (09:00)
[2017-04-07] MEDS: BRIMONIDINE TARTRATE 0.2% DROPS 5 ML BTL BOTH EYES SCH ×2 (09:27→20:21)
[2017-04-07] MEDS: ACETAMINOPHEN TAB 500 MG TAB PO PRN (09:28)
[2017-04-07] MEDS: ATORVASTATIN 10 MG TAB PO SCH (09:28)
[2017-04-07] MEDS: amLODIPine 2.5 MG TAB PO SCH (09:28)
--- NOTE | 2017-04-07 10:34 | P.CONS ---
History of Present Illness - Reason for Consult Consult date: 04/07/17 Nausea vomiting diarrhea Requesting physician: Christopher Serrano - History of Present Illness 66-year-old female the history of possible multiple myeloma, rheumatoid arthritis, hypertension, chronic kidney disease admitted with chest discomfort, nonoliguric prerenal acute kidney injury secondary to intractable nausea vomiting and diarrhea. Serum calcium 13.4. Free [place] LC quantitative 4900. Patient reports nausea vomiting has been chronic for at least 3-4 months. Sometimes she vomits daily sometimes not. Diarrhea is new onset developed over the last week; 1 loose stool yesterday; upwards 2-3 times a day dependent on her diet. Tolerated her diet this morning. Last emesis yesterday. Chronic NSAID usage daily for arthritic pain until November when she stopped secondary to her kidney function. She is on Plavix unsure why. No history of EGD. Last colonoscopy 10 years ago. Denies fever chills hematemesis hematochezia melena. She reports an 15 pound weight loss over the last month. Current weight is 50.7 kg she was 57 kg in January 2017. Ultrasound abdomen no gallstones or dilated ducts; normal exam. Pulmonary perfusion exam low probability for PE. 03/14/2017 CT of chest for evaluation of left-sided chest pain no significant finding. White count 4.5. Hemoglobin 8.9. MCV 104. Platelet 198. INR 1.0. BUN 30. Creatinine 2.6. Iron 52. TIBC 248. Iron saturation 20%. Ferritin 357. LFTs within normal limits. Review of Systems Constitutional: Denies fever, chills, sweats, weight gain, or loss. HEENT: Negative for migraines, blurred vision or loss, earaches, drainage, tinnitus, oral mucosal lesions, dysphagia, or odynophagia. CARDIAC: Hypertension. Negative for chest pain, arrhythmias, or palpitation. RESPIRATORY: COPD. Negative for shortness of breath, hemoptysis, cough, or sputum production. GI: See HPI for pertinent findings. : Negative for hematuria, urgency, frequency, polyuria, or dysuria. GYNc: Denies possibility of . Negative vaginal discharge. MUSCULOSKELETAL: Rheumatoid arthritis. Negative for muscle aches, swelling, arthritis, and arthralgias. NEUROLOGIC: Negative for stroke or TIA. Nephrology: Chronic kidney disease. ENDOCRINE: Negative for thyroid problems. SKIN: Negative for rash or itching. PSYCHIATRIC: Negative history for depression and anxiety Past Medical History Past Medical History: CVA/TIA, Hyperlipidemia, Hypertension, Rheumatoid Arthritis (RA) History of Any Multi-Drug Resistant Organisms: None Reported Past Surgical History: Back Surgery Additional Past Surgical History / Comment(s): LUMBAR FUSION 1.5 YRS AGO, BREAT IMPLANTS IN THE 70'S REMOVED MID 90'S Past Anesthesia/Blood Transfusion Reactions: No Reported Reaction Past Psychological History: No Psychological Hx Reported Smoking Status: Former smoker Past Alcohol Use History: None Reported Past Drug Use History: None Reported - Past Family History Father Additional Family Medical History / Comment(s): FATHER 99 YRS OLD STILL LIVING [facility] PROSTATE ISSUES Mother Family Medical History: Cancer Additional Family Medical History / Comment(s): LUNG CANCER Medications and Allergies Home Medications Medication Instructions Recorded Confirmed Type Clopidogrel [Plavix] 75 mg PO W/LUNCH 01/28/17 04/05/17 History Latanoprost Ophth [Xalatan 0.005%] 1 drops BOTH EYES HS 01/28/17 04/05/17 History Losartan Potassium [Cozaar] 25 mg PO W/SUPPER 01/28/17 04/05/17 History Methotrexate Sodium [Methotrexate] 12.5 mg PO GOMEZ 01/28/17 04/05/17 History Rosuvastatin Calcium [Crestor] 5 mg PO MOWEFR 01/28/17 04/05/17 History Sertraline [Zoloft] 200 mg PO W/LUNCH 01/28/17 04/05/17 History Brimonidine Tartrate [Alphagan P 1 drops BOTH EYES BID 04/05/17 04/05/17 History 0.2% Ophth Soln] Allergies Allergy/AdvReac Type Severity Reaction Status Date / Time ciprofloxacin HCl Allergy Unknown Verified 04/05/17 19:31 [From Cipro] codeine Allergy Unknown Verified 04/05/17 19:31 Sulfa (Sulfonamide Allergy Unknown Verified 04/05/17 19:31 Antibiotics) Physical Exam Vitals: Vital Signs Temp Pulse Resp BP Pulse Ox 04/07/17 03:53 98.6 F 90 16 145/66 94 L 04/07/17 00:00 99.6 F 88 16 128/60 97 04/06/17 20:00 98.8 F 93 16 153/67 93 L 04/06/17 16:00 97.4 F L 92 18 139/62 95 04/06/17 12:00 97.6 F 90 18 126/70 95 Intake and Output 04/06/17 04/07/17 04/07/17 22:59 06:59 14:59 Intake Total 400 330 Balance 400 330 Intake: IV 400 Sodium Chloride 0.9% 1, 400 000 ml @ 100 mls/hr IV . Q10H ONE Rx#:[id number] Oral 330 Other: Voiding Method Toilet # Voids 2 0 Weight 50.7 kg General appearance: The patient is alert, oriented, in no acute distress. HET: Head is normocephalic and atraumatic. Pupils are equal and reactive. Oropharynx is clear without lesions. Neck: Supple without lymphadenopathy. Trachea midline. Heart: S1 S2. Regular rate and rhythm. Lungs: No crackles or wheezes are heard. Abdomen: Soft, nontender, nondistended with bowel sounds. No peritoneal signs. No palpable organomegaly or masses. Extremities: Normal skin color and turgor. No cyanosis, rash, ulceration, clubbing, or edema. Radial and pedal pulses are 2/4 bilaterally. Neurological: No focal deficits. Strength and sensation are grossly intact. Results CBC & Chem 7: 04/05/17 20:18 04/07/17 06:46 Labs: Abnormal Lab Results - Last 24 Hours (Table) 04/06/17 04/07/17 Range/Units 10:13 06:46 Chloride 115 H 117 H (98-107) mmol/L Carbon Dioxide 20 L 21 L (22-30) mmol/L BUN 35 H 30 H (7-17) mg/dL Creatinine 2.75 H 2.62 H (0.52-1.04) mg/dL Glucose 113 H (74-99) mg/dL Calcium 11.9 H 11.2 H (8.4-10.2) mg/dL US - abdomen: report reviewed (Dr. Bains) Assessment and Plan (1) Nausea & vomiting Narrative/Plan: 66-year-old female admitted with nonoliguric prerenal acute kidney injury underlying chronic kidney disease, chest discomfort with acute on chronic nausea vomiting 2-3 months duration with new onset diarrhea. Possible gastroenteritis gastritis. Chronic NSAID usage until November 2016. Current Visit: Yes Status: Acute Code(s): R11.2 - NAUSEA WITH VOMITING, UNSPECIFIED SNOMED Code(s): 93314177 (2) Chronic kidney disease Current Visit: Yes Status: Chronic Code(s): N18.9 - CHRONIC KIDNEY DISEASE, UNSPECIFIED SNOMED Code(s): 421137413 (3) Rheumatoid arthritis Current Visit: Yes Status: Chronic Code(s): M06.9 - RHEUMATOID ARTHRITIS, UNSPECIFIED SNOMED Code(s): 78626505 (4) ARF (acute renal failure) Current Visit: Yes Status: Acute Code(s): N17.9 - ACUTE KIDNEY FAILURE, UNSPECIFIED SNOMED Code(s): 59095299 (5) Hypercalcemia Current Visit: Yes Status: Acute Code(s): E83.52 - HYPERCALCEMIA SNOMED Code(s): 13707879 (6) Hypercalcemia Current Visit: Yes Status: Acute Code(s): E83.52 - HYPERCALCEMIA SNOMED Code(s): 08142122 (7) [place] light chain myeloma Narrative/Plan: Possible multiple myeloma with elevated quantitative free [place] light chain. Current Visit: Yes Status: Acute Code(s): C90.00 - MULTIPLE MYELOMA NOT HAVING ACHIEVED REMISSION SNOMED Code(s): 007525301 Plan: 1. Hematology evaluation. EGD evaluation tomorrow morning; patient received dose of Lovenox today. Lovenox discontinued. 2. Continue with bland diet small frequent meals. Nothing by mouth after midnight. 3. Protonix 40 mg daily. Zofran, Reglan as needed. The braille typist has discussed the risks, benefits and alternative therapies for the above-mentioned procedure and for both sedation/analgesia as well as necessary blood product administration, if indicated, as they pertain to this patient. The patient has indicated understanding and acceptance of the risks and procedures discussed. Thank you for this kind referral and the opportunity to participate in the care of your patient. This consultation was discussed with Dr. Bains. The impression and plan of care have been directed as dictated.
[2017-04-07] MEDS: CLOPIDOGREL 75 MG TAB PO SCH (11:31)
[2017-04-07] MEDS: SERTRALINE 100 MG TAB PO SCH (11:32)
[2017-04-07] MEDS: SODIUM CHLORIDE 0.9% 1,000 ML IV SCH ×2 (11:35→23:22)
[2017-04-07] MEDS ORDERED: LEVOFLOXACIN 750MG-D5W PMX 750 MG in DEXTROSE/WATER 1 150ML.BAG IVPB SCH (13:00)
[2017-04-07] MEDS: cefTRIAXone IN SWFI 1,000 MG/10 ML SYRINGE IVP SCH (14:02)
--- NOTE | 2017-04-07 14:03 | PN ---
PROGRESS NOTE Patient is seen for followup for acute kidney injury. Patient was admitted to the hospital with complaints of nausea, vomiting, not feeling well. She was found to be hypercalcemic with a calcium of 13.4. Serum creatinine was 2.9 mg/dL on initial admission, and it is now down to 2.6. Patient is currently maintained on normal saline. She states she is feeling better. Her previous creatinine was 2.1 in November of 2016. Workup revealed significantly elevated of 4900. The patient has been evaluated by Hematology. Patient received pamidronate yesterday. PHYSICAL EXAMINATION: Currently patient is comfortable. Blood pressure is 120/57, heart rate 83 per minute, she is afebrile. Examination of the heart, S1, S2. Examination of the lungs, bilateral breath sounds are heard. Abdomen is soft, nontender. Exam of the lower extremities shows no evidence of edema. ASSEMBLY MANAGER exam is grossly intact. LABS: Show sodium 143, potassium 4.4, chloride 117, BUN 30, serum creatinine 2.6, hemoglobin 8.9 g/dL, calcium down to 11.2. ASSESSMENT: 1. Acute kidney injury secondary to hypercalcemia and intravascular volume depletion, currently improving with IV hydration. 2. Chronic kidney disease, most likely secondary to underlying multiple myeloma and possibly related to chronic use of NSAIDs as well. Previous creatinine was 2.1, in November of 2016 at stage IV. 3. Hypercalcemia secondary to multiple myeloma, status post evaluation by Hematology. Patient will need a bone marrow biopsy. She is status post pamidronate. Calcium is decreasing. She is advised to avoid any calcium supplements upon discharge. 4. Hypertension, currently controlled. PLAN: Continue normal saline. Patient will need outpatient followup and avoid calcium supplements upon discharge. She will need to follow with Hematology as well. MMODL / IJN: [id number] /
--- NOTE | 2017-04-07 16:50 | P.CONS ---
History of Present Illness - Reason for Consult Consult date: 04/07/17 Hypercalcemia, light chain elevation - History of Present Illness The patient is a 66-year-old lady, with multiple medical problems. These are overall well controlled at baseline. She has extensive rheumatoid arthritis, currently stable on methotrexate. The patient also has chronic kidney disease with baseline creatinine in the low 2 range. Over the past 4-6 weeks, the patient had generally not been feeling well. She reports decrease in appetite, as well as some decreased endurance. She has been having nausea off and on due to which oral intake has declined. She has lost about 8-10 pounds during this time. She is also been having somewhat increased bone pain especially in the rib cage area. Due to progression of these symptoms, she came into the emergency room, where she was found to have elevation of creatinine from baseline into the 2.9 range. In addition calcium was elevated at 13.4. She was therefore admitted for further management. The patient had had labs done as an outpatient on 03/31/17. I'm not sure was the covering physician, but these labs included light chain levels showed marked elevation of A light chain at 4900 mg/dL, with lambda light chain normal. Review of Systems Constitutional: Reports chronic pain, Reports fatigue, Reports poor appetite, Reports weakness, Reports weight loss Eyes: denies blurred vision, denies pain Ears: deny: decreased hearing, ear discharge, earache, tinnitus Ears, nose, mouth and throat: Denies headache, Denies sore throat Cardiovascular: Reports decreased exercise tolerance Respiratory: Denies cough Gastrointestinal: Reports nausea, Reports vomiting Genitourinary: Denies dysuria, Denies hematuria Menstruation: Reports postmenopausal Musculoskeletal: Reports as per HPI (Polyarthralgia due to rheumatoid arthritis controlled. Increased pain in bilateral rib cages) Integumentary: Denies pruritus, Denies rash Neurological: Reports weakness, Denies numbness Psychiatric: Denies anxiety, Denies depression Endocrine: Reports fatigue, Reports weight change Hematologic/Lymphatic: Reports as per HPI Past Medical History Past Medical History: CVA/TIA, Hyperlipidemia, Hypertension, Rheumatoid Arthritis (RA) History of Any Multi-Drug Resistant Organisms: None Reported Past Surgical History: Back Surgery Additional Past Surgical History / Comment(s): LUMBAR FUSION 1.5 YRS AGO, BREAT IMPLANTS IN THE 70'S REMOVED MID 90'S Past Anesthesia/Blood Transfusion Reactions: No Reported Reaction Past Psychological History: No Psychological Hx Reported Smoking Status: Former smoker Past Alcohol Use History: None Reported Past Drug Use History: None Reported - Past Family History Father Additional Family Medical History / Comment(s): FATHER 99 YRS OLD STILL LIVING [facility] PROSTATE ISSUES Mother Family Medical History: Cancer Additional Family Medical History / Comment(s): LUNG CANCER Medications and Allergies Home Medications Medication Instructions Recorded Confirmed Type Clopidogrel [Plavix] 75 mg PO W/LUNCH 01/28/17 04/05/17 History Latanoprost Ophth [Xalatan 0.005%] 1 drops BOTH EYES HS 01/28/17 04/05/17 History Losartan Potassium [Cozaar] 25 mg PO W/SUPPER 01/28/17 04/05/17 History Methotrexate Sodium [Methotrexate] 12.5 mg PO GOMEZ 01/28/17 04/05/17 History Rosuvastatin Calcium [Crestor] 5 mg PO MOWEFR 01/28/17 04/05/17 History Sertraline [Zoloft] 200 mg PO W/LUNCH 01/28/17 04/05/17 History Brimonidine Tartrate [Alphagan P 1 drops BOTH EYES BID 04/05/17 04/05/17 History 0.2% Ophth Soln] Allergies Allergy/AdvReac Type Severity Reaction Status Date / Time ciprofloxacin HCl Allergy Lip Verified 04/07/17 11:35 [From Cipro] swelling, itching codeine Allergy Unknown Verified 04/05/17 19:31 Sulfa (Sulfonamide Allergy Unknown Verified 04/05/17 19:31 Antibiotics) Physical Exam Vitals: Vital Signs Temp Pulse Resp BP Pulse Ox 04/07/17 12:00 97.5 F L 83 16 120/57 95 04/07/17 08:00 97.4 F L 105 H 16 132/62 93 L 04/07/17 03:53 98.6 F 90 16 145/66 94 L 04/07/17 00:00 99.6 F 88 16 128/60 97 04/06/17 20:00 98.8 F 93 16 153/67 93 L Intake and Output 04/07/17 04/07/17 04/07/17 06:59 14:59 22:59 Intake Total 400 540 Balance 400 540 Intake: IV 400 Sodium Chloride 0.9% 1, 400 000 ml @ 100 mls/hr IV . Q10H ONE Rx#:[id number] Oral 540 Other: Voiding Method Toilet # Voids 1 1 # Bowel Movements 0 0 Weight 50.7 kg - Constitutional General appearance: no acute distress - EENT Eyes: EOMI, PERRLA ENT: hearing grossly normal, normal oropharynx - Neck Neck: no lymphadenopathy - Respiratory Respiratory: bilateral: CTA - Cardiovascular Rhythm: regular Heart sounds: normal: S1, S2 - Gastrointestinal General gastrointestinal: no organomegaly, soft, no tenderness - Integumentary Integumentary: normal - Neurologic Neurologic: CNII-XII intact - Musculoskeletal Musculoskeletal: generalized weakness, strength equal bilaterally - Psychiatric Psychiatric: A&O x's 3, appropriate affect Results CBC & Chem 7: 04/05/17 20:18 04/07/17 06:46 Labs: Abnormal Lab Results - Last 24 Hours (Table) 04/06/17 04/07/17 Range/Units 10:13 06:46 Chloride 117 H (98-107) mmol/L Carbon Dioxide 21 L (22-30) mmol/L BUN 30 H (7-17) mg/dL Creatinine 2.62 H (0.52-1.04) mg/dL Calcium 11.2 H (8.4-10.2) mg/dL Vit D 1,25-Dihydroxy 114 H (20 - 79) pg/mL Comments: VQ scan report reviewed Chest x-ray: report reviewed US - abdomen: report reviewed Assessment and Plan (1) [place] light chain myeloma Narrative/Plan: Based on the patient's clinical picture, with worsening of renal function, hypercalcemia as well as marked elevation of 1 light chain, multiple myeloma is strongly suspected. The clinical impression was discussed in detail with the patient. For additional workup, she will need a bone marrow aspiration biopsy, that'll be scheduled early next week. If the patient is stable and is discharged prior to that, this can be done as an outpatient. The procedure was discussed in detail with her. For additional workup, bone survey will be ordered. We will do a 24-hour urine for Bence-Ro protein as an outpatient Current Visit: Yes Status: Acute Code(s): C90.00 - MULTIPLE MYELOMA NOT HAVING ACHIEVED REMISSION SNOMED Code(s): 663493807 (2) Nausea & vomiting Narrative/Plan: This is more likely to be due to her hypercalcemia, as well as deterioration of renal function. Currently the patient is somewhat improved with some dramatic treatment. Monitor, with improvement in calcium. Gastroenterology is on the case. However his symptoms improved significantly but continues on calcium level, the GI workup would likely not be needed. Current Visit: Yes Status: Acute Code(s): R11.2 - NAUSEA WITH VOMITING, UNSPECIFIED SNOMED Code(s): 33258812 (3) Rheumatoid arthritis Narrative/Plan: The case was discussed with rheumatology. Methotrexate will be held given the likely new diagnosis, and worsening of renal function Current Visit: Yes Status: Chronic Code(s): M06.9 - RHEUMATOID ARTHRITIS, UNSPECIFIED SNOMED Code(s): 54804080 (4) Hypercalcemia Narrative/Plan: Calcium has improved with hydration. Given that I suspect that her symptoms are due to hypercalcemia, she will be administered pamidronate. I will start with a 30 mg dose, and administer additional doses if renal function remains stable. Current Visit: Yes Status: Acute Code(s): E83.52 - HYPERCALCEMIA SNOMED Code(s): 62735999 Plan: The above plan was discussed with the admitting service in detail
[2017-04-07] MEDS ORDERED: SODIUM CHLORIDE 0.9% 250 ML with PAMIDRONATE 30 MG IV ONE ×2 (18:00)
[2017-04-07] MEDS: LATANOPROST 0.005% OPHTH DROPS 2.5 ML BTL BOTH EYES SCH (20:39)
--- NOTE | 2017-04-07 22:24 | P.PN ---
Progress Note - Text Progress Note Date: 04/07/17 DATE OF SERVICE: 04/07/2017 PRESENTING COMPLAINT: Chest pain, nausea, vomiting HISTORY OF PRESENT ILLNESS: 66-year-old female who presents with bilateral rib pain for several months worse when she stretches or moves her body. Has also found herself having nausea and vomiting. Has lost some weight because of this. Was admitted for the same. INTERVAL HISTORY: 04/07/2017: Lying in bed appears comfortable. Patient states her rib pain still is fair but improved somewhat. Has been able to tolerate oral intake, no episodes of nausea or vomiting. Encouraged patient to be up out of bed at minimum for every meal. Tolerating her diet eating between 30 and 50%. Agreeable to sit on the edge of the bed and sit up in the chair for meals. Able to get around with some assistance. Last BM prior to admission REVIEW OF SYSTEMS: Done for constitutional ,cardiovascular, GI, pulmonary with relevant findings as above. CURRENT MEDICATIONS Tylenol, Norvasc, Lipitor, Alphagan, Rocephin, Plavix, latanoprost, Reglan, Zofran, Protonix, Zoloft, PHYSICAL EXAM VITAL SIGNS: Temperature 97.4, pulse 105, respiratory rate 16, blood pressure 132/62, oxygen saturation 93% on room air. GENERAL APPEARANCE: Lying in bed, not in distress. HENT: Normocephalic, JVD not raised. Mass not palpable. Oral cavity normal, external appearance of ears and nose normal. EYES:Pupils equal. Conjunctiva normal. RESPIRATORY: Respiratory effort normal. Lungs clear to auscultation. CARDIOVASCULAR: First and second sounds normal. No edema. ABDOMEN: Soft. Liver and spleen not palpable. No tenderness. No mass palpable. PSYCHIATRY: Alert and oriented x3. Mood and affect normal. NEUROLOGICAL: Cranial nerves grossly intact. No facial asymmetry. Power and sensation grossly intact INVESTIGATIONS: LABS: Chloride 117, carbon dioxide 21, BUN 30, creatinine 2.6 to, calcium 11.2. ASSESSMENT: -Acute renal failure likely prerenal in a patient whose BUN and creatinine were 30/2.10 in January 2017 likely from poor oral intake patient is also on Cozaar. -Chronic kidney disease stage IV from hypertensive nephrosclerosis. -Microcytic anemia, cause unknown. We'll check B12 and folate. -Essential hypertension. -Hyperlipidemia. -Depression not otherwise specified. -Significant rheumatoid arthritis to multiple joints. -Bilateral chest pains, reproducible at the costochondral junction likely costochondritis could be related to rheumatoid arthritis -Persistent nausea, vomiting. Oral cavity exam is unremarkable. This could be from reflux. Did take Motrin for quite a while and could be having underlying peptic ulcer disease. -Hypercalcemia, improving Could be from multiple myeloma, parathyroid hormone was suppressed. Had light chains that as noted were elevated PLAN: EGD planned for tomorrow. Nothing by mouth after midnight. Continue normal saline, clinical picture of worsening renal function hypercalcemia and marked elevation of one light chain makes multiple myeloma strongly suspected. Discussion was had by oncology with the patient and planning to give pamidronate per oncology. Will require additional workup of a bone marrow aspiration biopsy, bone survey, a 24-hour urine for Bence-Ro protein which can ideally be done outpatient. Methotrexate should be held given the new diagnosis and her current renal function. Plan of care discussed at the bedside with the patient she is agreeable. We will follow closely. ELECTRICAL INTEGRATOR statement: Patient was seen and examined by nurse practitioner Jessie Barksdale and all elements of the case discussed with attending Dr. Serrano
[2017-04-08] MEDS ORDERED: LIDOCAINE 1% INJ 10MG/ML (20 ML MDV) ONE (08:28)
[2017-04-08] MEDS ORDERED: PROPOFOL 10 MG/ML 20 ML VIAL IV ONE (08:28)
[2017-04-08] MEDS ORDERED: IV FLUID CONTINUATION 900 ML IV ONE (08:31)
--- NOTE | 2017-04-08 08:38 | P.PCN ---
Date of Procedure: 04/08/17 Procedure(s) Performed: BRIEF HISTORY: Patient is a 66-year-old, pleasant, white female, admitted to the hospital with intermittent nausea vomiting not feeling well on now for the last 2-3 months duration. She has these intermittent episodes of nausea vomiting happens once or twice a week. Has vague epigastric discomfort. Denies any heartburn, dysphagia or odynophagia. In view of this and she is scheduled for an upper endoscopy to evaluate further. PROCEDURE PERFORMED: Esophagogastroduodenoscopy. PREOPERATIVE DIAGNOSIS: Intermittent episodes of nausea vomiting weight loss of 10 pounds in the last 2-3 months duration. IV sedation per anesthesia. PROCEDURE: After informed consent was obtained, the patient was brought into the endoscopy unit. IV sedation was administered by Anesthesia under continuous monitoring. Initially the Olympus GIF-140 video endoscope was inserted into the mouth. Esophagus intubated without any difficulty. It was gradually advanced into the stomach and duodenum and carefully examined. The bulb and the second part of the duodenum appeared normal. The scope at this time was withdrawn to the stomach, adequately insufflated with air, and upon careful examination, mucosa of the antrum, body, cardia and the fundus appeared normal. The scope was then withdrawn into the esophagus. The GE junction was located at 39 cm from the incisors. Small sliding-type hiatal hernia noted. The esophagus appeared normal. There were no erosions or ulcerations seen and the patient tolerated the procedure well. IMPRESSION: 1. Small sliding-type hiatal hernia. 2. No evidence of esophagitis, gastritis or peptic ulcer disease. RECOMMENDATIONS: The findings of this examination were discussed with the patient. Diet will be advanced as tolerated. Continue antiemetics as needed.
[2017-04-08 09:03] LABS: Calcium 10.8 mg/dL (8.4-10.2); Phosphorus 2.9 mg/dL (2.5-4.5); Potassium 4.2 mmol/L (3.5-5.1)
--- NOTE | 2017-04-08 09:53 | PN ---
PROGRESS NOTE DATE OF SERVICE: 04/07/17 ATTENDING NOTE: Patient seen and examined by me on April 07, 2017. Discussed with nurse practitioner Ms. Barksdale. This patient admitted with multiple symptoms including diagnosis of acute renal failure has underlying chronic kidney disease, also hypercalcemia, strongly suspicious for multiple myeloma. The patient was seen by Dr. Larson who has given the patient IV pamidronate and will do a bone marrow biopsy as an outpatient. Feels a bit better. Also seen by Gastroenterology and planning to do EGD tomorrow. PHYSICAL EXAMINATION: Afebrile, pulse 105, respiratory 18, blood pressure 132/62, pulse ox 93% on room air. Lungs fair entry. Cardiovascular 1st and 2nd sounds normal. INVESTIGATIONS: BUN 30, creatinine 2.62, calcium 11.2, vitamin D came back a bit high. ASSESSMENT: 1. Acute renal failure on chronic kidney disease. 2. Anemia likely could be from anemia, could be nutritional. Also could be from renal failure. 3. Rheumatoid arthritis. 4. Nausea and vomiting blood, probably likely from underlying peptic ulcer disease, gastritis. 5. Hypercalcemia, multiple myeloma high probability. PLAN: We will have EGD planned. Did receive IV pamidronate. Repeat electrolytes in the morning. The patient to continue to get normal saline. MMODL / IJN: [id number] /
[2017-04-08] MEDS: amLODIPine 2.5 MG TAB PO SCH (10:28)
[2017-04-08] MEDS: PANTOPRAZOLE 40 MG TABLET PO SCH (10:28)
[2017-04-08] MEDS: BRIMONIDINE TARTRATE 0.2% DROPS 5 ML BTL BOTH EYES SCH ×2 (10:28→20:53)
[2017-04-08] MEDS: METOCLOPRAMIDE 5 MG TAB PO SCH ×3 (10:28→16:41)
[2017-04-08] MEDS: cefTRIAXone IN SWFI 1,000 MG/10 ML SYRINGE IVP SCH (10:29)
[2017-04-08] MEDS: SODIUM CHLORIDE 0.9% 1,000 ML IV SCH (10:29)
[2017-04-08 11:57] LABS: Protein, Total 4.9 g/dL (6.2-8.2)
--- NOTE | 2017-04-08 12:22 | P.PN ---
Subjective Progress Note Date: 04/08/17 Seen and examined for the follow-up of acute kidney injury Objective - Vital Signs Vital signs: Vital Signs Temp 98.6 F 04/08/17 08:00 Pulse 98 04/08/17 08:00 Resp 16 04/08/17 08:00 BP 139/63 04/08/17 08:00 Pulse Ox 98 04/08/17 08:00 Intake & Output 04/07/17 04/08/17 04/08/17 18:59 06:59 18:59 Intake Total 880 1110 1100 Balance 880 1110 1100 Weight 52.2 kg Intake: IV 50 Intake, IV Titration 1110 800 Amount Sodium Chloride 0.9% 1, 800 800 000 ml @ 100 mls/hr IV . Q10H OLIVE Rx#:[id number] Sodium Chloride 0.9% 250 310 ml @ 83 mls/hr IV .Q3H1M ONE with Pamidronate 30 mg Rx#:[id number] Oral 880 250 Other: Voiding Method Toilet Toilet Toilet # Voids 1 1 3 # Bowel Movements 0 - Exam Lying in bed no acute distress S1 and S2 heard lungs clear to auscultation No edema - Labs CBC & Chem 7: 04/05/17 20:18 04/08/17 05:58 Labs: Abnormal Lab Results - Last 24 Hours (Table) 04/06/17 04/08/17 04/08/17 Range/Units 10:13 05:58 05:58 Sodium 146 H (137-145) mmol/L Chloride 119 H (98-107) mmol/L Carbon Dioxide 18 L (22-30) mmol/L BUN 23 H (7-17) mg/dL Creatinine 2.44 H (0.52-1.04) mg/dL Calcium 10.7 H 10.8 H (8.4-10.2) mg/dL Vit D 1,25-Dihydroxy 114 H (20 - 79) pg/mL Assessment and Plan Assessment: Impression: #1 acute kidney injury secondary to prerenal process from intravascular volume depletion with hypercalcemia. #2 chronic kidney disease stage IV with baseline creatinine 2.1 secondary to underlying multiple myeloma #3 hypercalcemia secondary to multiple myeloma #4 hyponatremia secondary to IV fluid Recommendation: #1 change normal saline to half-normal saline. #2 renal functions improving monitor closely #3 appreciated hematology input. #4 repeat labs in the morning #5 avoid nephrotoxic agents and hypotensive episodes.
[2017-04-08] MEDS: CLOPIDOGREL 75 MG TAB PO SCH (12:38)
[2017-04-08] MEDS: SERTRALINE 100 MG TAB PO SCH (12:38)
[2017-04-08] MEDS: SODIUM CHLORIDE 0.45% 1,000 ML IV SCH (12:38)
[2017-04-08] MEDS: ACETAMINOPHEN TAB 500 MG TAB PO PRN (20:52)
[2017-04-08] MEDS: LATANOPROST 0.005% OPHTH DROPS 2.5 ML BTL BOTH EYES SCH (20:53)
--- NOTE | 2017-04-08 21:54 | XR ---
EXAMINATION TYPE: XR bone survey complete DATE OF EXAM: 04/07/2017 COMPARISON: NONE HISTORY: Multiple myeloma TECHNIQUE: Multiple images obtained over the axial and appendicular skeleton. COMPARISON: None FINDINGS: Chest x-ray: There is blunting of the right costophrenic angle. Some blunting left costophrenic angle is present. Minimal effusions may be present. Skull: Skull is examined in 2 projections. There is some lucency within the right parietal skull on t he frontal projection. Suspicious lytic areas on the lateral view are not identified. Sella appears u nremarkable. Bilateral humeri: Some subtle moth-eaten lucency within the proximal metaphyseal left humerus may be present. Cervical spine: Cervical spine is examined in 2 projections. Facet degenerative changes are present. There is narrowing of disc height C5-6. Prevertebral space is unremarkable. Posterior spinal lamellar line is intact. Thoracic spine: 3 view thoracic spine: Scoliosis is present. There are 12 thoracic type vertebral bod ies. The pedicles are intact. Lumbar spine: 2 view lumbar spine: Lumbar pedicle screws are present L5-S1. There 5 lumbar-type verte bral bodies. L1-L4 pedicles are intact. Bilateral femurs: No suspicious lytic lesions are evident. Joint spaces appear preserved. AP pelvis: Normal bowel gas is present. Femoral heads articulate with the acetabulum. Suspicious lyti c areas are not identified. IMPRESSION: 1. There is a questionable area of moth-eaten appearance of the proximal left humerus. 2. Suspicious lytic areas are not otherwise apparent. 3. Additional chronic changes discussed above
[2017-04-09] MEDS: SODIUM CHLORIDE 0.45% 1,000 ML IV SCH ×2 (02:45→15:07)
--- NOTE | 2017-04-09 07:01 | PN ---
PROGRESS NOTE DATE OF SERVICE: 04/08/17. PRESENTING COMPLAINT: Nausea, vomiting, chest pain. INTERVAL HISTORY: This is a patient who presented with bilateral chest pain now felt to be musculoskeletal. The patient pictures normal compatible kappa light chain multiple myeloma with hypercalcemia and renal failure, anemia. The patient's hypercalcemia is actually getting better and nausea actually much improved. Had the EGD done today reveals come back to be unremarkable. Overall feels better. The patient is able to actually tolerate some diet. Has been out of bed. REVIEW OF SYSTEMS: Done for constitutional, cardiovascular, GI, pulmonary; relevant findings as above. CURRENT MEDICATIONS: Reviewed that includes Norvasc, Lipitor, Plavix, Protonix, Zoloft. PHYSICAL EXAMINATION: On examination, afebrile, pulse 91, respirations 16, blood pressure 113/60, pulse ox 94% on room air. GENERAL APPEARANCE: The patient appears better, lying in bed. EYES: Pupils equal. Conjunctivae are pale. HEENT: External appearance of nose and ears normal. Oral cavity normal. NECK: JVD not raised. Mass not palpable. RESPIRATORY: Effort, lungs fair entry. CARDIOVASCULAR: First and second sounds no edema. ABDOMEN: Soft, nontender. Liver and spleen not palpable. PSYCHIATRY: Alert and oriented x3. Mood and affect slightly low. INVESTIGATIONS: Potassium 4.2, BUN 23, creatinine 2.44 down from 2.96. Calcium is down to 10.8, phosphorus down to 2.9. ASSESSMENT: 1. Acute renal failure likely prerenal from poor oral intake and the patient is on Cozaar, is improving. 2. Chronic kidney disease stage III to IV from multiple myeloma. 3. Microcytic anemia likely from underlying multiple myeloma. 4. Essential hypertension. 5. Hyperlipidemia. 6. Depression, not otherwise specified. 7. Persistent nausea vomiting from hypercalcemia. 8. Multiple myeloma kappa light chain type. PLAN: Overall doing better. If the patient is stable, patient should be able to be discharged tomorrow with outpatient bone marrow biopsy. The patient's methotrexate has been discontinued. I will stop the patient's ceftriaxone. The patient did have a bone survey done that did show some multi appearance of the proximal left humerus. MMODL / IJN: [id number] /
[2017-04-09] MEDS: amLODIPine 2.5 MG TAB PO SCH (08:35)
[2017-04-09] MEDS: BRIMONIDINE TARTRATE 0.2% DROPS 5 ML BTL BOTH EYES SCH ×2 (08:35→21:13)
[2017-04-09] MEDS ORDERED: METHOTREXATE SODIUM 2.5 MG TAB PO SCH (09:00)
--- NOTE | 2017-04-09 10:34 | P.PN ---
Subjective Progress Note Date: 04/09/17 Patient seen and examined for the follow-up of acute kidney injury. Doing better, anxious to go home Objective - Vital Signs Vital signs: Vital Signs Temp 98.6 F 04/09/17 08:00 Pulse 110 H 04/09/17 08:00 Resp 16 04/09/17 08:00 BP 142/61 04/09/17 08:00 Pulse Ox 93 L 04/09/17 08:00 Intake & Output 04/08/17 04/09/17 04/09/17 18:59 06:59 18:59 Intake Total 1880 345 Output Total 800 Balance 1080 345 Weight 52.9 kg Intake: IV 50 Intake, IV Titration 1200 45 Amount Sodium Chloride 0.45% 1, 45 000 ml @ 75 mls/hr IV . [id number] OLIVE Rx#:[id number] Sodium Chloride 0.9% 1, 1200 000 ml @ 100 mls/hr IV . Q10H OLIVE Rx#:[id number] Oral 630 300 Output: Urine 800 Other: Voiding Method Toilet Toilet Toilet # Voids 2 1 1 # Bowel Movements 1 - Exam No acute distress S1-S2 heard Lungs clear Or edema - Labs CBC & Chem 7: 04/05/17 20:18 04/08/17 05:58 Labs: Abnormal Lab Results - Last 24 Hours (Table) 04/08/17 Range/Units 05:58 Total Protein (PEP) 4.9 L (6.2-8.2) g/dL Assessment and Plan Assessment: Impression: #1 acute kidney injury secondary to prerenal process from intravascular volume depletion with hypercalcemia #2 CK D stage IV with a baseline creatinine of 2.1 MG per DL secondary to underlying multiple myeloma #3 hypercalcemia secondary to multiple myeloma #4 hypERnatremia secondary to IV fluids Recommendations: #1 no new labs today. Continue with half normal saline for today until we get repeat labs tomorrow. #2 calcium improving, no acute signs and symptoms. Continue with IV fluids #3 avoid nephrotoxic agents and hypotensive episodes. #4 supportive care
[2017-04-09] MEDS: CLOPIDOGREL 75 MG TAB PO SCH (11:32)
[2017-04-09] MEDS: SERTRALINE 100 MG TAB PO SCH (11:32)
[2017-04-09] MEDS ORDERED: SODIUM CHLORIDE 0.9% 250 ML with PAMIDRONATE 30 MG IV ONE ×2 (12:00)
[2017-04-09] MEDS ORDERED: RX INFO: IV CONTRAST WAS GIVEN 1 EACH MISC MISCELLANE PRN (13:15)
[2017-04-09 15:22] LABS: ABG Base Excess -7.4 mmol/L; ABG HCO3 17 mmol/L (21-25); ABG Oxygen Saturation 93.1 % (94-97); ABG PCO2 28 mmHg (35-45); ABG PH 7.41 (7.35-7.45); ABG PO2 65 mmHg (83-108); ABG TCO2 18 mmol/L (19-24)
[2017-04-09] MEDS: LATANOPROST 0.005% OPHTH DROPS 2.5 ML BTL BOTH EYES SCH (21:13)
[2017-04-09] MEDS: ONDANSETRON 4 MG/2 ML VIAL IVP PRN (21:33)
[2017-04-10] MEDS: ACETAMINOPHEN TAB 500 MG TAB PO PRN ×2 (00:10→08:52)
--- NOTE | 2017-04-10 05:49 | PN ---
PROGRESS NOTE DATE OF SERVICE: 04/09/2017 PRESENTING COMPLAINT: Short of breath. INTERVAL HISTORY: This patient initially presented with bilateral chest pain, felt to be musculoskeletal and the patient's picture has come back to be compatible with kappa light chain multiple myeloma with hypercalcemia, renal failure, anemia. The patient has received pamidronate. EGD was unremarkable. The patient is feeling better, was slightly short of breath earlier today, though overall looks much better a bit tired and anxious. REVIEW OF SYSTEMS: Review of systems done for constitutional, cardiovascular, GI, pulmonary; relevant findings as above. MEDICATIONS: Current medications are reviewed. PHYSICAL EXAMINATION: On examination, temperature 98.6, pulse 99, respiration 16, blood pressure 142/65, pulse ox 96% on room air, previously it was 89% on room air. GENERAL APPEARANCE: Lying in bed, comfortable. EYES: Pupils equal. Conjunctiva pale. HENT: External appearance of nose, ears and oral cavity normal. NECK: JVD not raised. Mass not palpable. RESPIRATORY: Effort normal. LUNGS: Fair entry. CARDIOVASCULAR: First and second sounds normal. No edema. ABDOMEN: Soft, nontender. Liver and spleen not palpable. No mass palpable. PSYCHIATRY: Alert and oriented x3. Mood and affect slightly low. INVESTIGATIONS: Blood gas on room air showed a pH of 7.41 and saturation 93.1%. The patient's BUN 23, creatinine 2.44. Calcium 10.8 as from yesterday. ASSESSMENT: 1. Acute renal failure likely prerenal from poor oral intake, which is improved. 2. Chronic kidney disease stage 3 to 4 from multiple myeloma. 3. Microcytic anemia likely from underlying multiple myeloma. 4. Essential hypertension. 5. Hyperlipidemia. 6. Depression, not otherwise specified. 7. Persistent nausea and vomiting from hypercalcemia, much improved. 8. Multiple myeloma, kappa light chain type. PLAN: Patient's pulse ox may be not reading correct I got blood gases done which is not too bad; hence, we will not do any further workup. Patient did get another dose of pamidronate today. The patient's labs will be checked tomorrow. I am hoping then patient can be discharged accordingly. MMODL / IJN: [id number] /
[2017-04-10 06:05] LABS: Albumin 2.5 g/dL (3.5-5.0); Calcium 10.4 mg/dL (8.4-10.2); Total Bilirubin 0.2 mg/dL (0.2-1.3); Total Protein 4.9 g/dL (6.3-8.2)
[2017-04-10 06:10] LABS: Potassium 3.7 mmol/L (3.5-5.1)
[2017-04-10] MEDS: BRIMONIDINE TARTRATE 0.2% DROPS 5 ML BTL BOTH EYES SCH ×2 (08:22→20:36)
[2017-04-10] MEDS: amLODIPine 2.5 MG TAB PO SCH (08:22)
[2017-04-10] MEDS: ATORVASTATIN 10 MG TAB PO SCH (08:22)
[2017-04-10] MEDS: SODIUM CHLORIDE 0.45% 1,000 ML IV SCH ×2 (08:26→20:36)
[2017-04-10] MEDS: SERTRALINE 100 MG TAB PO SCH (12:33)
[2017-04-10] MEDS: CLOPIDOGREL 75 MG TAB PO SCH (12:33)
[2017-04-10] MEDS: ONDANSETRON 4 MG/2 ML VIAL IVP PRN (12:37)
[2017-04-10 13:40] VITALS: BMI 22.6
[2017-04-10] MEDS: METOCLOPRAMIDE 5 MG TAB PO SCH (16:33)
--- NOTE | 2017-04-10 18:11 | P.PN ---
Subjective Progress Note Date: 04/10/17 The patient overall feels better, with less aching, as well as improvement in nausea and vomiting , and appetite. No fevers, chills, or obvious bleeding. Objective - Vital Signs Vital signs: Vital Signs Temp 96.1 F L 04/10/17 16:00 Pulse 92 04/10/17 16:00 Resp 18 04/10/17 16:00 BP 150/67 04/10/17 16:00 Pulse Ox 93 L 04/10/17 16:00 Intake & Output 04/09/17 04/10/17 04/10/17 18:59 06:59 18:59 Intake Total 465 625 Balance 465 625 Weight 52.5 kg 52.5 kg Intake: Intake, IV Titration 45 475 Amount Sodium Chloride 0.45% 1, 45 225 000 ml @ 75 mls/hr IV . [id number] [facility] Rx#:[id number] Sodium Chloride 0.9% 250 250 ml @ 83 mls/hr IV .Q3H1M ONE with Pamidronate 30 mg Rx#:[id number] Oral 420 150 Other: Voiding Method Toilet Toilet Toilet # Voids 1 1 1 - Constitutional General appearance: Present: no acute distress - EENT Eyes: Present: PERRLA ENT: Present: hearing grossly normal, normal oropharynx - Respiratory Respiratory: bilateral: CTA - Cardiovascular Rhythm: regular Heart sounds: normal: S1, S2 - Gastrointestinal General gastrointestinal: Present: soft - Integumentary Integumentary: Present: normal - Neurologic Neurologic: Present: CNII-XII intact - Musculoskeletal Musculoskeletal: Present: strength equal bilaterally - Psychiatric Psychiatric: Present: A&O x's 3, appropriate affect - Labs CBC & Chem 7: 04/05/17 20:18 04/10/17 05:23 Labs: Abnormal Lab Results - Last 24 Hours (Table) 04/10/17 Range/Units 05:23 Sodium 146 H (137-145) mmol/L Chloride 118 H (98-107) mmol/L Carbon Dioxide 18 L (22-30) mmol/L BUN 18 H (7-17) mg/dL Creatinine 2.47 H (0.52-1.04) mg/dL Calcium 10.4 H (8.4-10.2) mg/dL Total Protein 4.9 L (6.3-8.2) g/dL Albumin 2.5 L (3.5-5.0) g/dL Assessment and Plan (1) [place] light chain myeloma Narrative/Plan: The serum protein electrophoresis is not yet available, but primary physician showed only kappa light chain with no distinct complete M protein. Therefore a light chain only secreting myeloma suspected. Bone survey showed a couple of suspicious areas including proximal humerus. The plan is to proceed with bone marrow aspiration and biopsy on 04/11/17 to confirm tissue diagnosis. The procedure was explained in detail again to the patient. All questions were answered. She is willing to proceed Current Visit: Yes Status: Acute Code(s): C90.00 - MULTIPLE MYELOMA NOT HAVING ACHIEVED REMISSION SNOMED Code(s): 053473436 (2) Nausea & vomiting Narrative/Plan: Markedly improved Current Visit: Yes Status: Acute Code(s): R11.2 - NAUSEA WITH VOMITING, UNSPECIFIED SNOMED Code(s): 26507211 (3) Rheumatoid arthritis Narrative/Plan: Methotrexate has been placed on hold, after discussion with boring and filling machine operator Current Visit: Yes Status: Chronic Code(s): M06.9 - RHEUMATOID ARTHRITIS, UNSPECIFIED SNOMED Code(s): 17125102 (4) Hypercalcemia Narrative/Plan: This continues to improve, along with renal function. The patient got an additional dose of Aredia over the weekend. Calcium is now 10.4. Assuming renal function remains stable we will likely repeat a dose tomorrow. Current Visit: Yes Status: Acute Code(s): E83.52 - HYPERCALCEMIA SNOMED Code(s): 43169968
--- NOTE | 2017-04-10 18:20 | PN ---
PROGRESS NOTE The patient is seen for followup for chronic kidney disease and acute kidney injury and hypercalcemia secondary to underlying multiple myeloma most likely. Patient has significantly elevated kappa chains and is scheduled for a bone marrow biopsy tomorrow. The hypercalcemia has improved with calcium now down to 10.4 mg/dL. The patient remains on IV saline. Her creatinine has been staying at about 2.4 for the last 2 days. Her admission creatinine was at 2.9 mg/dL. In review of previous labs shows a creatinine of 2.1 in November of 2016 as well. EXAMINATION: Currently patient is comfortable, awake, alert, oriented x3, not in any acute distress. Blood pressure is 150/67, heart rate 92 per minute. She is afebrile. Examination of the heart: S1, S2. Examination lungs: Bilateral breath sounds are heard. Abdomen is soft, nontender. Examination lower extremity shows no significant edema. MOLD SHAKER exam is grossly intact. Patient moving all 4 extremities. LAB: Show sodium 146, potassium 3.7, chloride 118, CO2 is 18, BUN 18, serum creatinine 2.47, albumin 2.5. Vitamin D 125 was 114. ASSESSMENT: 1. Acute kidney injury secondary to hypercalcemia and volume depletion, currently improved. Serum creatinine staying at about 2.4 mg/dL. Continue with normal saline for now. 2. Hypercalcemia secondary to underlying multiple myeloma, status post pamidronate, maintained on normal saline for now, which we will continue. Patient is advised to avoid any calcium supplements and hold off on any calcium that she was taking at home. 3. Metabolic acidosis secondary to renal failure, currently stable. 4. Significantly elevated kappa light chains with underlying myeloma. Scheduled for bone marrow biopsy tomorrow. 5. Mild hypernatremia. IV fluids have been changed to half-normal saline, which I will continue for now as the sodium remains elevated. 6. Chronic kidney disease, most likely secondary to underlying multiple myeloma. I do not believe patient needs a kidney biopsy at this time. Need to proceed with a bone marrow biopsy and treat based on its findings. 7. Hypertension, currently controlled. Continue the current dose of Norvasc. MMODL / IJN: [id number] /
[2017-04-10] MEDS ORDERED: LACTATED RINGERS 1,000 ML IV SCH (19:56)
[2017-04-10] MEDS: LATANOPROST 0.005% OPHTH DROPS 2.5 ML BTL BOTH EYES SCH (20:36)
[2017-04-11] MEDS: SODIUM CHLORIDE 0.45% 1,000 ML IV SCH (03:17)
[2017-04-11 07:37] LABS: INR 1.2 (<1.2); Prothrombin Time 11.2 sec (9.0-12.0)
[2017-04-11 07:48] LABS: Albumin 2.8 g/dL (3.5-5.0); Potassium 3.5 mmol/L (3.5-5.1); Total Bilirubin 0.2 mg/dL (0.2-1.3); Total Protein 5.3 g/dL (6.3-8.2)
--- NOTE | 2017-04-11 07:51 | PN ---
PROGRESS NOTE DATE OF SERVICE: 04/10/2017 PRESENTING COMPLAINT: Tired. INTERVAL HISTORY: This is a patient now diagnosed with kappa light chain multiple myeloma with hypercalcemia. Received pamidronate. Has been having some nausea earlier today, given Reglan to which she is feeling better. Occasional diarrhea. Due for a bone marrow tomorrow. REVIEW OF SYSTEMS: Review of systems done for constitutional, cardiovascular, GI, pulmonary; relevant findings as above. MEDICATIONS: Current medications are reviewed. PHYSICAL EXAMINATION: On examination, temperature 96.1, pulse 92, respiratory 18, blood pressure 150/67, pulse ox 93% on room air. GENERAL APPEARANCE: Lying in bed, more comfortable. EYES: Pupils equal. Conjunctive normal. HENT: External appearance of nose and ears normal. Oral cavity normal. NECK : JVD not raised. Mass not palpable. RESPIRATORY: Effort normal. Lungs are clear. CARDIOVASCULAR: First and second sounds normal. No edema. ABDOMEN: Soft, nontender. Liver and spleen not palpable. PSYCHIATRY: Alert and oriented x3. Mood and affect normal. INVESTIGATIONS: Sodium 146, potassium 3.7, BUN 18, creatinine 2.47. Calcium 10.4. ASSESSMENT: 1. Acute renal failure likely prerenal from poor oral intake and secondary to fluid balance. 2. Chronic kidney disease stage 3 from multiple myeloma. 3. Microcytic anemia likely from underlying multiple myeloma. 4. Essential hypertension. 5. Hyperlipidemia. 6. Depression, not otherwise specified. 7. Multiple myeloma, kappa light chain type. PLAN: Patient did receive more pamidronate. Awaiting a bone marrow biopsy tomorrow. The patient's sodium is running on the higher side probably from the free water deficit. The patient has got metabolic acidosis. We will add some sodium bicarb. The patient is also on half-normal saline. MMODL / IJN: [id number] /
[2017-04-11 07:57] LABS: Anisocytosis Slight; HCT 21.2 % (34.0-46.0); Hypochromasia Moderate; MCH 33.4 pg (25.0-35.0); MCHC 31.2 g/dL (31.0-37.0); MCV 107.2 fL (80.0-100.0); Macrocytosis Marked; Mean Platelet Volume 8.1; Platelet Count 121 k/uL (150-450); RBC 1.98 m/uL (3.80-5.40); RDW 16.5 % (11.5-15.5)
[2017-04-11 08:05] LABS: HGB 6.6 gm/dL (11.4-16.0)
[2017-04-11] MEDS ORDERED: PROPOFOL 10 MG/ML 20 ML VIAL IV ONE (08:16)
[2017-04-11] MEDS ORDERED: IV FLUID CONTINUATION 1,000 ML IV ONE (08:19)
--- NOTE | 2017-04-11 09:06 | PCN ---
PROCEDURE NOTE DATE OF SERVICE: 04/11/2017. TYPE OF PROCEDURE: Bone marrow aspiration, biopsy. INDICATIONS FOR PROCEDURE: Multiple myeloma. TYPE OF ANESTHESIA: Local with IV sedation. PROCEDURE NOTE: The procedure was explained in detail to the patient on the floor. Informed consent was obtained on the floor. She was brought to the outpatient endoscopy suite and placed in the left lateral decubitus position. The area of both posterior iliac crest was cleaned and prepped with chlorhexidine and sterile draping. IV sedation was then initiated. Local anesthesia administered with lidocaine to the right posterior iliac crest. A Jamshidi needle was then inserted and bone marrow aspirate and biopsy obtained. On withdrawal of the needle, hemostasis was easily achieved. Blood loss was minimal and recovery from sedation was satisfactory. She appeared to have tolerated the procedure well without any obvious complications. MMODL / IJN: [id number] /
[2017-04-11] MEDS: SODIUM BICARBONATE TAB 650 MG TAB PO SCH ×2 (09:23→16:56)
[2017-04-11] MEDS: BRIMONIDINE TARTRATE 0.2% DROPS 5 ML BTL BOTH EYES SCH (09:23)
[2017-04-11] MEDS: METOCLOPRAMIDE 5 MG TAB PO SCH ×3 (09:24→16:56)
[2017-04-11] MEDS: amLODIPine 2.5 MG TAB PO SCH (09:24)
[2017-04-11 10:53] LABS: Basophils # (M) 0.12 k/uL (0-0.2); Lymphocytes # (M) 0.78 k/uL (1.0-4.8); Neutrophils % (M) 75 %; Nucleated Red Blood Cells 0 /100 WBC (0-0); Total Cells Counted 100
[2017-04-11 10:55] LABS: Hypersegmented Neutrophils Present
[2017-04-11 10:56] LABS: Poikilocytosis (M) Present; RBC Fragments Present
[2017-04-11] MEDS: SERTRALINE 100 MG TAB PO SCH (11:24)
[2017-04-11 11:28] VITALS: RESP 18
[2017-04-11] MEDS: CLOPIDOGREL 75 MG TAB PO SCH (12:10)
[2017-04-11 14:36] LABS: Albumin 2.88 g/dL (3.80-4.90); Gamma Globulin 0.41 g/dL (0.70-1.50)
[2017-04-11 14:54] VITALS: BP 151/66; TEMP 98.9
[2017-04-11 16:30] LABS: Anisocytosis Slight; HCT 24.9 % (34.0-46.0); Hypochromasia Slight; MCH 33.1 pg (25.0-35.0); MCHC 32.3 g/dL (31.0-37.0); MCV 102.5 fL (80.0-100.0); Macrocytosis Moderate; Mean Platelet Volume 8.5; Poikilocytosis Slight; RBC 2.43 m/uL (3.80-5.40); RDW 17.9 % (11.5-15.5)
[2017-04-11 16:58] LABS: Band Neutrophils % 2 %; Basophils # (M) 0.06 k/uL (0-0.2); Eosinophils # (M) 0.23 k/uL (0-0.7); Lymphocytes # (M) 0.99 k/uL (1.0-4.8); Monocytes # (M) 0.06 k/uL (0-1.0); Neutrophils % (M) 77 %; Nucleated Red Blood Cells 1 /100 WBC (0-0); Total Cells Counted 200; WBC 5.8 k/uL (3.8-10.6)
[2017-04-11 16:59] LABS: Anisocytosis (M) Present; Platelet Count 97 k/uL (150-450)
[2017-04-11 17:04] VITALS: PULSE 102
--- NOTE | 2017-04-11 21:30 | P.PN ---
Subjective Progress Note Date: 04/11/17 the patient was evaluated and examined prior to her bone marrow aspiration and biopsy. She denied any new complaints. Specifically, denied any fever or chills. She is able to tolerate by mouth well without any significant nausea or vomiting. She denied any dizziness on getting out of bed or significant new bone pain. Objective - Vital Signs Vital signs: Vital Signs Temp 98.9 F 04/11/17 14:53 Pulse 98 04/11/17 14:53 Resp 18 04/11/17 14:53 BP 151/66 04/11/17 14:53 Pulse Ox 91 L 04/11/17 17:03 Intake & Output 04/11/17 04/11/17 04/12/17 06:59 18:59 06:59 Intake Total 460 Balance 460 Weight 52.5 kg Intake: IV 150 Blood Product 310 Rc Pheresis As-3 Unit 310 [id number] Other: Voiding Method Toilet Toilet # Voids 1 1 # Bowel Movements 1 - Constitutional General appearance: Present: no acute distress - EENT Eyes: Present: EOMI, PERRLA ENT: Present: hearing grossly normal, normal oropharynx - Respiratory Respiratory: bilateral: CTA - Cardiovascular Rhythm: regular Heart sounds: normal: S1, S2 - Gastrointestinal General gastrointestinal: Present: normal bowel sounds, soft - Neurologic Neurologic: Present: CNII-XII intact - Musculoskeletal Musculoskeletal: Present: strength equal bilaterally - Psychiatric Psychiatric: Present: A&O x's 3, appropriate affect - Labs CBC & Chem 7: 04/11/17 16:22 04/11/17 07:07 Labs: Abnormal Lab Results - Last 24 Hours (Table) 04/08/17 04/11/17 04/11/17 Range/Units 05:58 07:07 07:07 RBC 1.98 L (3.80-5.40) m/uL Hgb 6.6 L* D (11.4-16.0) gm/dL Hct 21.2 L (34.0-46.0) % MCV 107.2 H (80.0-100.0) fL RDW 16.5 H (11.5-15.5) % Plt Count 121 L (150-450) k/uL Lymphocytes # (Manual) 0.78 L (1.0-4.8) k/uL Nucleated RBCs (0-0) /100 WBC INR 1.2 H (<1.2) Chloride (98-107) mmol/L Carbon Dioxide (22-30) mmol/L Creatinine (0.52-1.04) mg/dL Total Protein (6.3-8.2) g/dL Albumin (3.5-5.0) g/dL Albumin (PEP) 2.88 L (3.80-4.90) g/dL Gamma Globulins 0.41 L (0.70-1.50) g/dL Crossmatch 04/11/17 04/11/17 04/11/17 Range/Units 07:07 09:37 16:22 RBC 2.43 L (3.80-5.40) m/uL Hgb 8.0 L (11.4-16.0) gm/dL Hct 24.9 L (34.0-46.0) % MCV 102.5 H (80.0-100.0) fL RDW 17.9 H (11.5-15.5) % Plt Count 97 L (150-450) k/uL Lymphocytes # (Manual) 0.99 L (1.0-4.8) k/uL Nucleated RBCs 1 H (0-0) /100 WBC INR (<1.2) Chloride 118 H (98-107) mmol/L Carbon Dioxide 17 L (22-30) mmol/L Creatinine 2.50 H (0.52-1.04) mg/dL Total Protein 5.3 L (6.3-8.2) g/dL Albumin 2.8 L (3.5-5.0) g/dL Albumin (PEP) (3.80-4.90) g/dL Gamma Globulins (0.70-1.50) g/dL Crossmatch See Detail Assessment and Plan (1) [place] light chain myeloma Narrative/Plan: the patient will undergo bone marrow aspiration and biopsy for completion of currently planned workup. She will subsequently follow up in the office. 24- hour urine for completion of staging will be done as an outpatient. if the patient is stable post procedure, as she can be discharged. This was discussed with the admitting service. She'll then follow-up in the outpatient setting Status: Acute Code(s): C90.00 - MULTIPLE MYELOMA NOT HAVING ACHIEVED REMISSION SNOMED Code(s): 339040488 (2) Nausea & vomiting Narrative/Plan: resolved Status: Acute Code(s): R11.2 - NAUSEA WITH VOMITING, UNSPECIFIED SNOMED Code (s): 01754336 (3) Rheumatoid arthritis Status: Chronic Code(s): M06.9 - RHEUMATOID ARTHRITIS, UNSPECIFIED SNOMED Code(s): 51665477 (4) Hypercalcemia Narrative/Plan: resolved Status: Acute Code(s): E83.52 - HYPERCALCEMIA SNOMED Code(s): 59706045 (5) Bicytopenia Narrative/Plan: due to underlying myeloma. There may also be some marrow suppression due to effects of methotrexate in the setting of renal failure. Methotrexate has been discontinued. Hemoglobin was down to 2 every 6 hours today. One unit of blood transfusion will be ordered after completion of the bone marrow aspiration biopsy Status: Acute Code(s): D75.89 - OTHER SPECIFIED DISEASES OF BLOOD AND BLOOD- FORMING ORGANS SNOMED Code(s): 970471734
--- NOTE | 2017-04-11 22:48 | PN ---
PROGRESS NOTE Patient is seen for followup for chronic kidney disease and acute kidney injury. She had her bone marrow biopsy today. She will be discharged. The patient's serum creatinine is staying at about 2.5 mg/dL. Calcium has significantly improved and it is at 10.0 now. PHYSICAL EXAMINATION: Blood pressure is 148/71, heart rate 95 per minute. Patient is afebrile. EXAMINATION OF THE HEART: S1, S2. EXAMINATION OF LUNGS: Bilateral breath sounds are heard. ABDOMEN: Soft, non-tender. Examination of lower extremities shows no evidence of edema. SH[employer] F[employer]ER exam is grossly intact. LABS: Hemoglobin 8.0, sodium 144, potassium 3.5, chloride 118, BUN 15, serum creatinine 2.5 mg/dL. ASSESSMENT: 1. Chronic kidney disease secondary to multiple myeloma with element of acute kidney injury from hypercalcemia, currently improved. 2. Significantly elevated kappa light chain, status post bone marrow biopsy, being followed by Oncology. 3. Hypercalcemia secondary to multiple myeloma, currently improved, status post pamidronate and normal saline. PLAN: Patient is stable for discharge. Will follow up as outpatient in about 2 weeks' time. MMODL / IJN: [id number] /
--- NOTE | 2017-04-12 05:36 | DS ---
DISCHARGE SUMMARY DATE OF ADMISSION: 04/05/2017 DATE OF DISCHARGE: 04/11/2017 FINAL DIAGNOSES: 1. Acute renal failure likely prerenal from poor oral intake and secondary to multiple myeloma. 2. Chronic kidney disease stage 3 from multiple myeloma. 3. Microcytic anemia likely from underlying multiple myeloma. 4. Essential hypertension. 5. Hyperlipidemia. 6. Depression, not otherwise specified. 7. Hypercalcemia secondary to multiple myeloma. 8. Multiple myeloma kappa light chain type. HOSPITAL COURSE: This patient presented with nausea, vomiting, found to be hypercalcemic. The patient was given 2 doses of pamidronate saline and calcium did come down nicely from 13.4 on admission, it was down to 10 today. Patient's workup did show kappa light chain. Patient did undergo bone marrow biopsy today. Patient's hemoglobin had dropped down to 6.6 today, gave a unit of blood and before discharge it was back up to 8. The patient's creatinine also was up to 2.96 did come down to 2.50. The patient's methotrexate has been discontinued patient did have a bone survey that did show some moth eaten appearance of the proximal left humerus and there were some other chronic changes. Care was discussed with the patient. Overall feeling better. Methotrexate was discontinued. The patient did undergo EGD by Dr. Luis Fernando Bains that was essentially unremarkable. CONSULTATION: Dr. Larson from Hematology; Dr. De Jesus from Nephrology and Dr. Luis Fernando Bains from GI. Additional transportation consultant, Cardiology. DISCHARGE MEDICATIONS: 1. Plavix 75 mg with lunch. 2. Xalatan 0.005% 1 drop to both eyes q.h.s. 3. Cozaar 25 mg p.o. with supper. 4. Crestor 5 mg p.o. Monday, Monday and Monday. 5. Zoloft 200 mg with lunch. 6. Alphagan 0.2% 1 drop to both eyes b.i.d. It is to be noted patient's methotrexate has been discontinued. The patient is to follow up with Dr. Kirby Villalobos on 04/26/2017; Dr. Larson on 05/03/2017; nephrology. LABS: CMP and CBC in 1 week. ON EXAMINATION: Lungs are clear. CARDIOVASCULAR: First and second sounds normal. PSYCH: AO x3. Discussion and discharge planning more than 35 minutes. MMODL / IJN: [id number] /
== END 2017-04-11 18:15 | disposition home health service (06) | DRG 841 ==
LOC: EC 17:10 → 6SEL 21:48 → 5MS5E 04-10 18:32
PROVIDERS: ADMIT Hospitalist; ATTEND Hospitalist
PROC: 0DJ08ZZ Inspection of Upper Intestinal Tract, Via Natural or Artificial Opening Endoscopic (ICD-10-PCS; principal; 2017-04-08 08:20)
PROC: 07DR3ZX Extraction of Iliac Bone Marrow, Percutaneous Approach, Diagnostic (ICD-10-PCS; 2017-04-11)
PROC: 30233N1 Transfusion of Nonautologous Red Blood Cells into Peripheral Vein, Percutaneous Approach (ICD-10-PCS; 2017-04-11)
DX: C90.00 Multiple myeloma not having achieved remission (principal); E87.0 Hyperosmolality and hypernatremia; N17.9 Acute kidney failure, unspecified; E87.2 Acidosis; E83.52 Hypercalcemia; N11.9 Chronic tubulo-interstitial nephritis, unspecified; N18.4 Chronic kidney disease, stage 4 (severe); E86.9 Volume depletion, unspecified; D50.9 Iron deficiency anemia, unspecified; E78.5 Hyperlipidemia, unspecified; F32.9 Major depressive disorder, single episode, unspecified; I12.9 Hypertensive chronic kidney disease with stage 1 through stage 4 chronic kidney disease, or unspecified chronic kidney disease; K44.9 Diaphragmatic hernia without obstruction or gangrene; M06.9 Rheumatoid arthritis, unspecified; M94.0 Chondrocostal junction syndrome [Tietze]; R19.7 Diarrhea, unspecified; R63.4 Abnormal weight loss; T50.995A Adverse effect of other drugs, medicaments and biological substances, initial encounter; R11.2 Nausea with vomiting, unspecified; D63.8 Anemia in other chronic diseases classified elsewhere; Z79.02 Long term (current) use of antithrombotics/antiplatelets; Z79.899 Other long term (current) drug therapy; Z86.73 Personal history of transient ischemic attack (TIA), and cerebral infarction without residual deficits; Z87.891 Personal history of nicotine dependence; Z88.1 Allergy status to other antibiotic agents; Z88.5 Allergy status to narcotic agent; Z88.2 Allergy status to sulfonamides; Y92.239 Unspecified place in hospital as the place of occurrence of the external cause
CPT/HCPCS: 36415; 36600; 43235; 71046; 76705; 77075; 78582; 80048; 80053; 82310; 82550; 82553; 82652; 82805; 83690; 83735; 84100; 84165; 84484; 85025; 85379; 85610; 85730; 86850; 86900; 86901; 86920; 93005; 96361; 96374; 96375; 99285

== ENCOUNTER → 2017-05-15 | Outpatient (CLI) | payer MEDICARE ==
--- NOTE | 2017-05-15 19:46 | US ---
EXAMINATION TYPE: US venous doppler duplex LE BI DATE OF EXAM: 05/15/2017 5:33 PM COMPARISON: NONE CLINICAL HISTORY: Pain and Swelling R22.42 R22.41, M79.662 M79.661. SIDE PERFORMED: Bilateral TECHNIQUE: The lower extremity deep venous system is examined utilizing real time linear array sonog willow with graded compression, doppler sonography and color-flow sonography. VESSELS IMAGED: External Iliac Vein (EIV) Common Femoral Vein Deep Femoral Vein Greater Saphenous Vein * Femoral Vein Popliteal Vein Small Saphenous Vein * Proximal Calf Veins (* superficial vessels) Right Leg: Negative for DVT Left Leg: Negative for DVT No evidence of DVT bilateral legs. IMPRESSION: Normal exam. No evidence of deep venous thrombosis in both legs.
== END | disposition home or self-care (01) ==
LOC: RADUSMAIN 16:45
PROVIDERS: ATTEND Internal Medicine Hematology & Oncology
DX: M79.662 Pain in left lower leg (principal); M79.661 Pain in right lower leg; R22.43 Localized swelling, mass and lump, lower limb, bilateral
CPT/HCPCS: 93970

== ENCOUNTER 2017-05-24 13:25 | Inpatient (IN) | payer MEDICARE ==
[2017-05-24] MEDS ORDERED: IPRATROPIUM-ALBUTEROL 3 ML NEB INHALATION STA (14:19)
[2017-05-24] MEDS ORDERED: MORPHINE SULFATE/PF 10MG/10ML VL IVP STA (14:20)
--- NOTE | 2017-05-24 14:24 | ED ---
General Adult HPI - General Chief complaint: Shortness of Breath Stated complaint: ELIEZER Time Seen by Provider: 05/24/17 13:53 Source: patient, EMS Mode of arrival: EMS Limitations: no limitations - History of Present Illness Initial comments: Patient is a pleasant 66-year-old female presenting to the emergency department with difficulty in breathing. Patient has been having discomfort mostly on her left chest for several months and was recently diagnosed with multiple myeloma. Patient just started chemotherapy for this a couple of weeks ago. Patient developed difficulty in breathing over the past several days. Patient went to her oncologist Monday and was diagnosed with pneumonia. Patient is having increased dyspnea since that time. Patient does have cough with occasional yellow sputum. Patient is having some subjective fevers. Chest discomfort has been unchanged. Patient states she has a history of mild COPD. - Related Data Home Medications Medication Instructions Recorded Confirmed Clopidogrel [Plavix] 75 mg PO W/LUNCH 01/28/17 05/24/17 Latanoprost Ophth [Xalatan 0.005%] 1 drops BOTH EYES HS 01/28/17 05/24/17 Losartan Potassium [Cozaar] 25 mg PO W/SUPPER 01/28/17 05/24/17 Sertraline [Zoloft] 200 mg PO W/LUNCH 01/28/17 05/24/17 Brimonidine Tartrate [Alphagan P 1 drops BOTH EYES BID 04/05/17 05/24/17 0.2% Ophth Soln] Dexamethasone [Hexadrol] 20 mg PO DIRECTED 05/24/17 05/24/17 Lenalidomide [Revlimid] 15 mg PO DIRECTED 05/24/17 05/24/17 Prochlorperazine [Compazine] 10 mg PO Q6H PRN 05/24/17 05/24/17 Ranitidine HCl [Zantac] 150 mg PO HS 05/24/17 05/24/17 Allergies Allergy/AdvReac Type Severity Reaction Status Date / Time ciprofloxacin HCl Allergy Lip Verified 05/24/17 13:55 [From Cipro] swelling, itching codeine Allergy Unknown Verified 05/24/17 13:55 Sulfa (Sulfonamide Allergy Unknown Verified 05/24/17 13:55 Antibiotics) Review of Systems ROS Statement: Those systems with pertinent positive or pertinent negative responses have been documented in the HPI. ROS Other: All systems not noted in ROS Statement are negative. Constitutional: Reports: fever Eyes: Denies: eye pain ENT: Denies: ear pain Respiratory: Reports: cough, dyspnea Cardiovascular: Reports: chest pain Endocrine: Denies: fatigue Gastrointestinal: Denies: abdominal pain Genitourinary: Denies: dysuria Musculoskeletal: Denies: back pain Skin: Denies: rash Neurological: Denies: weakness Past Medical History Past Medical History: CVA/TIA, Hyperlipidemia, Hypertension, Rheumatoid Arthritis (RA) Additional Past Medical History / Comment(s): Tigist CA, multiple mylemoa History of Any Multi-Drug Resistant Organisms: None Reported Past Surgical History: Back Surgery Additional Past Surgical History / Comment(s): LUMBAR FUSION 1.5 YRS AGO, BREAT IMPLANTS IN THE 'S REMOVED MID 90'S Past Anesthesia/Blood Transfusion Reactions: No Reported Reaction Past Psychological History: No Psychological Hx Reported Smoking Status: Former smoker Past Alcohol Use History: None Reported Past Drug Use History: None Reported - Past Family History Father Additional Family Medical History / Comment(s): FATHER 99 YRS OLD STILL LIVING [facility] PROSTATE ISSUES Mother Family Medical History: Cancer Additional Family Medical History / Comment(s): LUNG CANCER General Exam Limitations: no limitations General appearance: alert, in no apparent distress Head exam: Present: atraumatic Eye exam: Present: normal appearance, PERRL ENT exam: Present: normal oropharynx Neck exam: Present: normal inspection Respiratory exam: Present: chest wall tenderness, decreased breath sounds Cardiovascular Exam: Present: regular rate, normal rhythm GI/Abdominal exam: Present: soft. Absent: tenderness Extremities exam: Present: pedal edema (+1 bilateral), calf tenderness (Mild bilateral) Back exam: Present: normal inspection Neurological exam: Present: alert Psychiatric exam: Present: normal affect, normal mood Skin exam: Present: normal color Course Vital Signs 05/24/17 05/24/17 05/24/17 13:36 14:39 14:48 Temperature 97.0 F L Pulse Rate 81 86 86 Respiratory 24 Rate Blood Pressure 153/67 O2 Sat by Pulse 100 Oximetry EKG Findings - EKG Comments: EKG Findings:: Normal sinus rhythm 80. AR 140. QRS 80. QT 390. QTC 449. Normal axis. Normal QRS. Nonspecific ST-T. Medical Decision Making - Medical Decision Making Patient reevaluated and resting comfortably in bed. Patient still appears slightly short of breath however states she does feel much better following advise her treatment. Case was discussed in detail with Dr. Johnson, who will admit for Dr. phillips, who admits for Dr. Villalobos. Dr. Abrams will be consult. - Lab Data Result diagrams: 05/24/17 13:50 05/24/17 13:50 Lab Results 05/24/17 05/24/17 05/24/17 Range/Units 13:50 13:50 13:50 WBC 6.8 (3.8-10.6) k/uL RBC 3.54 L (3.80-5.40) m/uL Hgb 11.4 (11.4-16.0) gm/dL Hct 35.8 (34.0-46.0) % MCV 101.1 H (80.0-100.0) fL MCH 32.4 (25.0-35.0) pg MCHC 32.0 (31.0-37.0) g/dL RDW 14.0 (11.5-15.5) % Plt Count 107 L D (150-450) k/uL Neutrophils % 68 % Lymphocytes % 11 % Monocytes % 7 % Eosinophils % 10 % Basophils % 1 % Neutrophils # 4.6 (1.3-7.7) k/uL Lymphocytes # 0.7 L (1.0-4.8) k/uL Monocytes # 0.5 (0-1.0) k/uL Eosinophils # 0.7 (0-0.7) k/uL Basophils # 0.0 (0-0.2) k/uL Macrocytosis Slight PT (9.0-12.0) sec INR (<1.2) APTT (22.0-30.0) sec Sodium 144 (137-145) mmol/L Potassium 5.2 H (3.5-5.1) mmol/L Chloride 116 H (98-107) mmol/L Carbon Dioxide 17 L (22-30) mmol/L Anion Gap 11 mmol/L BUN 38 H (7-17) mg/dL Creatinine 2.47 H (0.52-1.04) mg/dL Est GFR (CKD-EPI)AfAm 23 (>60 ml/min/1.73 sqM) Est GFR (CKD-EPI)NonAf 20 (>60 ml/min/1.73 sqM) Glucose 74 (74-99) mg/dL Plasma Lactic Acid Afshin (0.7-2.0) mmol/L Calcium 7.7 L (8.4-10.2) mg/dL Total Bilirubin 0.3 (0.2-1.3) mg/dL AST 18 (14-36) U/L ALT 19 (9-52) U/L Alkaline Phosphatase 104 (38-126) U/L Total Creatine Kinase 50 (30-135) U/L CK-MB (CK-2) 3.1 H* (0.0-2.4) ng/mL CK-MB (CK-2) Rel Index 6.2 Troponin I 0.017 (0.000-0.034) ng/mL NT-Pro-B Natriuret Pep pg/mL Total Protein 6.3 (6.3-8.2) g/dL Albumin 3.7 (3.5-5.0) g/dL 05/24/17 05/24/17 05/24/17 Range/Units 13:50 13:50 13:50 WBC (3.8-10.6) k/uL RBC (3.80-5.40) m/uL Hgb (11.4-16.0) gm/dL Hct (34.0-46.0) % MCV (80.0-100.0) fL MCH (25.0-35.0) pg MCHC (31.0-37.0) g/dL RDW (11.5-15.5) % Plt Count (150-450) k/uL Neutrophils % % Lymphocytes % % Monocytes % % Eosinophils % % Basophils % % Neutrophils # (1.3-7.7) k/uL Lymphocytes # (1.0-4.8) k/uL Monocytes # (0-1.0) k/uL Eosinophils # (0-0.7) k/uL Basophils # (0-0.2) k/uL Macrocytosis PT 9.8 (9.0-12.0) sec INR 1.0 (<1.2) APTT 22.6 (22.0-30.0) sec Sodium (137-145) mmol/L Potassium (3.5-5.1) mmol/L Chloride (98-107) mmol/L Carbon Dioxide (22-30) mmol/L Anion Gap mmol/L BUN (7-17) mg/dL Creatinine (0.52-1.04) mg/dL Est GFR (CKD-EPI)AfAm (>60 ml/min/1.73 sqM) Est GFR (CKD-EPI)NonAf (>60 ml/min/1.73 sqM) Glucose (74-99) mg/dL Plasma Lactic Acid Afshin 0.7 (0.7-2.0) mmol/L Calcium (8.4-10.2) mg/dL Total Bilirubin (0.2-1.3) mg/dL AST (14-36) U/L ALT (9-52) U/L Alkaline Phosphatase (38-126) U/L Total Creatine Kinase (30-135) U/L CK-MB (CK-2) (0.0-2.4) ng/mL CK-MB (CK-2) Rel Index Troponin I (0.000-0.034) ng/mL NT-Pro-B Natriuret Pep 2250 pg/mL Total Protein (6.3-8.2) g/dL Albumin (3.5-5.0) g/dL - Radiology Data Radiology results: image reviewed (Chest x-ray shows no acute process) Disposition Clinical Impression: Acute exacerbation of chronic obstructive airways disease Disposition: ADMITTED IP TO THIS HOSP Referrals: Kirby Villalobos DO [Primary Care Provider] - 1-2 days Decision Time: 16:19
[2017-05-24 14:43] LABS: Partial Thromboplastin Time 22.6 sec (22.0-30.0); Prothrombin Time 9.8 sec (9.0-12.0)
[2017-05-24 14:47] LABS: Albumin 3.7 g/dL (3.5-5.0); Calcium 7.7 mg/dL (8.4-10.2); Potassium 5.2 mmol/L (3.5-5.1); Total Bilirubin 0.3 mg/dL (0.2-1.3); Total Protein 6.3 g/dL (6.3-8.2)
[2017-05-24 14:53] LABS: Basophils % (A) 1 %; Eosinophils # (A) 0.7 k/uL (0-0.7); Eosinophils % (A) 10 %; HCT 35.8 % (34.0-46.0); HGB 11.4 gm/dL (11.4-16.0); Lymphocytes # (A) 0.7 k/uL (1.0-4.8); Lymphocytes % (A) 11 %; MCH 32.4 pg (25.0-35.0); MCV 101.1 fL (80.0-100.0); Macrocytosis Slight; Mean Platelet Volume 10.5; Monocytes # (A) 0.5 k/uL (0-1.0); Monocytes % (A) 7 %; Neutrophils # (A) 4.6 k/uL (1.3-7.7); Neutrophils % (A) 68 %; RBC 3.54 m/uL (3.80-5.40); WBC 6.8 k/uL (3.8-10.6)
[2017-05-24 14:55] LABS: Platelet Count 107 k/uL (150-450)
[2017-05-24 15:11] LABS: Troponin I 0.017 ng/mL (0.000-0.034)
[2017-05-24 15:21] LABS: Creatine Kinase MB 3.1 ng/mL (0.0-2.4)
--- NOTE | 2017-05-24 15:23 | XR ---
EXAMINATION TYPE: XR chest 2V DATE OF EXAM: 05/24/2017 COMPARISON: 04/05/2018 HISTORY: Shortness of breath TECHNIQUE: Frontal and lateral views of the chest are obtained. FINDINGS: There is no focal air space opacity, pleural effusion, or pneumothorax seen. . Pulmonary h yperinflation and flattening the diaphragms with biapical lucency indicative of underlying COPD. The cardiac silhouette size is within normal limits. The osseous structures are intact. Mild multilevel degenerative changes of the thoracic spine are noted. IMPRESSION: No acute cardiopulmonary process. Radiographic sequela of COPD.
--- NOTE | 2017-05-24 16:17 | US ---
EXAMINATION TYPE: US venous doppler duplex LE BI DATE OF EXAM: 05/24/2017 4:02 PM COMPARISON: Prior lower extremity venous ultrasound study from 9 days ago. CLINICAL HISTORY: Swelling. Bilateral ankle swelling. No redness. On blood thinners. No hx of DVT. SIDE PERFORMED: Bilateral TECHNIQUE: The lower extremity deep venous system is examined utilizing real time linear array sonog willow with graded compression, doppler sonography and color-flow sonography. VESSELS IMAGED: External Iliac Vein (EIV) Common Femoral Vein Deep Femoral Vein Greater Saphenous Vein * Femoral Vein Popliteal Vein Small Saphenous Vein * Proximal Calf Veins (* superficial vessels) Right Leg: Negative for DVT Left Leg: Negative for DVT Grayscale, color doppler, spectral doppler imaging performed of the deep veins of the bilateral lower extremities. There is normal flow, compressibility, vascular waveforms. IMPRESSION: No ultrasound evidence for acute DVT in either lower extremity on current study. No signi ficant change from prior.
[2017-05-24] MEDS ORDERED: methylPREDNISolone SOD SUCCI 125 MG/2 ML VIAL IV STA (16:20)
[2017-05-24] MEDS ORDERED: IPRATROPIUM-ALBUTEROL 3 ML NEB INHALATION PRN (16:20)
[2017-05-24] MEDS: IPRATROPIUM-ALBUTEROL 3 ML NEB INHALATION SCH (19:11)
[2017-05-24] MEDS: methylPREDNISolone SOD SUCCI 125 MG/2 ML VIAL IV SCH ×2 (19:21→23:49)
[2017-05-24 19:33] VITALS: BMI 17.0
--- NOTE | 2017-05-24 19:46 | NM ---
EXAMINATION TYPE: NM pul vent and perfuse DATE OF EXAM: 05/24/2017 COMPARISON: Chest radiographs 05/24/2017 at 3:21 PM HISTORY: Dyspnea with elevated d-dimer creatinine TECHNIQUE: Utilizing inhalation of 67.3 mCi Tc 99m DTPA aerosol and intravenous injection of 5.0 mCi of Tc 99m MAA, ventilation and perfusion images are acquired post injection in multiple projections. FINDINGS: There is mild left-sided heterogeneity of the radiotracer distribution on the left and mild -to-moderate on the right. However, there are no mismatched ventilation perfusion defects. IMPRESSION: LOW PROBABILITY FOR THE DIAGNOSIS OF PULMONARY EMBOLISM.
[2017-05-24] MEDS: SERTRALINE 100 MG TAB PO SCH (22:13)
[2017-05-24] MEDS: ACYCLOVIR 200 MG CAP PO SCH (22:13)
[2017-05-24] MEDS: FAMOTIDINE 20 MG TAB PO SCH (22:13)
[2017-05-24] MEDS: CLOPIDOGREL 75 MG TAB PO SCH (22:13)
[2017-05-24] MEDS: traMADol 50 MG TAB PO PRN (23:48)
[2017-05-25] MEDS ORDERED: PROCHLORPERAZINE 10 MG TAB PO PRN (01:13)
[2017-05-25] MEDS: CEFEPIME 2 GM in SODIUM CHLORIDE 0.9% 50 ML IVPB SCH ×2 (03:04→08:05)
[2017-05-25] MEDS: traMADol 50 MG TAB PO PRN ×3 (05:55→20:40)
[2017-05-25] MEDS: methylPREDNISolone SOD SUCCI 125 MG/2 ML VIAL IV SCH ×2 (05:56→11:35)
[2017-05-25 06:45] LABS: Glucose,Whole Blood 112 mg/dL (75-99)
--- NOTE | 2017-05-25 07:22 | HP ---
HISTORY AND PHYSICAL DATE OF SERVICE: 05/24/2017 CHIEF COMPLAINT: Shortness of breath and cough. HISTORY OF PRESENT ILLNESS: This is a 66-year-old woman with a past medical history of multiple medical problems including CVA, TIA, hypertension, hyperlipidemia, rheumatoid arthritis, history of recently diagnosed with multiple myeloma. The patient is followed by Dr. Villalobos in the outpatient setting. The patient started chemotherapy a couple weeks ago. The patient is complaining of shortness of breath. The patient has a cough also. With increasing difficulties, the patient came to [facility] and admitted for further evaluation and treatment. Evaluation at the hospital, the chest x-ray showed a suspicious pneumonia on the right side with probably some COPD. The venous Doppler was negative for an acute DVT and the V/Q scan was low probability. The patient was admitted for further evaluation and treatment. The patient does have features of renal failure. Influenza negative. PAST MEDICAL HISTORY: History of recently diagnosed with multiple myeloma, history of hypertension, hyperlipidemia, CVA, rheumatoid arthritis, history of back surgery. MEDICATIONS: Medications prior to admission included: 1. Acyclovir 400 mg p.o. daily. 2. Revlimid 15 mg p.r.n. 3. Zantac 150 mg q.h.s. 4. Compazine 10 mg q.6 p.r.n. 5. Hexadrol 20 mg p.r.n. 6. Zoloft 200 mg with lunch. 7. Cozaar 25 mg with supper. 8. Xalatan 0.005% 1 drop both eyes q.h.s. 9. Plavix 75 mg with lunch. 10.Alphagan 0.2% 1 drop both eyes b.i.d. ALLERGIES: Allergies are CIPRO, CODEINE, and SULFA. FAMILY HISTORY: History of cancer in the family, prostate issues. SOCIAL HISTORY: Previous history of smoking. No history of current smoking or alcohol intake. REVIEW OF SYSTEMS: ENT: No diminished hearing or diminished vision. CARDIOVASCULAR SYSTEM: No angina RESPIRATORY SYSTEM: As mentioned earlier. GI: No nausea or vomiting. : No dysuria. NERVOUS SYSTEM: No numbness or weakness. ALLERGY/IMMUNOLOGY: No history of asthma. MUSCULOSKELETAL: As mentioned earlier. HEMATOLOGY/ONCOLOGY: No history of anemia. ENDOCRINE: No history of diabetes or hypothyroidism. CONSTITUTIONAL: As mentioned earlier. DERMATOLOGY: Negative. RHEUMATOLOGY: PSYCHIATRY: As mentioned earlier. PHYSICAL EXAMINATION: The patient is alert and oriented x3. Pulse 93, blood pressure 139/61, respiration 18, temperature 97.7, pulse ox 97% on 3 L. HEENT: Conjunctivae normal. Oral mucosa moist. Neck is no jugular venous distention. No carotid bruit. No lymph node enlargement. CARDIOVASCULAR: S1 and S2 muffled. RESPIRATORY: Breath sounds diminished at the bases. Scattered rhonchi and crackles. Expiratory wheezing also present. ABDOMEN: Soft, nontender. No mass palpable. LEGS: No edema, no swelling. NERVOUS SYSTEM: Higher functions as mentioned earlier. Moves all 4 limbs. No focal motor or sensory deficits LYMPHATICS: No lymphadenopathy of the neck, axillae or groin. SKIN: No ulcer, rash or bleeding. JOINTS: No active deforming arthropathy. LABS: WBC 6.8, hemoglobin 11.4. D-dimer is 1.7. Otherwise, creatinine 2.47. ASSESSMENT: 1. Shortness with possible chronic obstructive pulmonary disease acute exacerbation with right lower lobe pneumonia. 2. Renal failure, chronic kidney disease stage 3. 3. Multiple myeloma on chemotherapy. 4. Thrombocytopenia. 5. Cerebrovascular accident, transient ischemic attack. 6. Hypertension. 7. Rheumatoid arthritis. 8. History of degenerative joint disease and back surgery. 9. Remote history of nicotine dependence. RECOMMENDATIONS AND DISCUSSION: This 66-year-old woman who presented with multiple complex medical issues, will monitor the patient closely. Continue the current medications, continue symptomatic treatment. Will initiate broad-spectrum antibiotics and as well as IV steroids. Monitor blood sugars closely. Also recommend Pulmonary and Hematology/Oncology and as well as Nephrology consultation also. Repeat labs will be ordered. Home medications are reconciled. Blood cultures also will be ordered and an urine culture has also been sought. UA with micro also will be requested. NT proBNP is 2250. I would also recommend a 2D echo with Doppler also to complete the workup. MMODL / IJN: [id number] / CORNELIUS
[2017-05-25] MEDS: IPRATROPIUM-ALBUTEROL 3 ML NEB INHALATION SCH ×4 (07:29→19:33)
[2017-05-25] MEDS: ACYCLOVIR 200 MG CAP PO SCH (08:04)
[2017-05-25] MEDS: INSULIN ASPART 100 UNIT/ML 1 ML 10 ML VIAL SQ SCH ×4 (08:11→20:38)
[2017-05-25] MEDS: BRIMONIDINE TARTRATE 0.2% DROPS 5 ML BTL BOTH EYES SCH ×2 (10:04→20:32)
[2017-05-25 10:21] LABS: Appearance,Urine Clear (Clear); Bilirubin,Urine Negative (Negative); Blood,Urine Moderate (Negative); Color,Urine Light Yellow; Glucose,Urine (UA) Negative (Negative); Ketones,Urine Negative (Negative); Leukocyte Esterase,Urine Negative (Negative); Mucus,Urine Rare /hpf; Nitrite,Urine Negative (Negative); Protein,Urine 1+ (Negative); RBC,Urine 39 /hpf (0-5); Specific Gravity,Urine 1.013 (1.001-1.035); Urobilinogen,Urine <2.0 mg/dL (<2.0); WBC,Urine 1 /hpf (0-5)
--- NOTE | 2017-05-25 10:50 | ECHOF ---
Referral Reason:CHF MEASUREMENTS -------- HEIGHT: 162.6 cm WEIGHT: 44.9 kg BP: 139/61 RVIDd: 2.5 cm (< 3.3) IVSd: 0.9 cm (0.6 - 1.1) LVIDd: 4.0 cm (3.9 - 5.3) LVPWd: 1.0 cm (0.6 - 1.1) IVSs: 1.2 cm LVIDs: 2.3 cm LVPWs: 1.2 cm LAESV Index (A-L): 32.20 ml/m Ao Diam: 2.6 cm (2.0 - 3.7) AV Cusp: 1.8 cm (1.5 - 2.6) LA Diam: 2.8 cm (2.7 - 3.8) EPSS: 0.3 cm MV E Toney: 0.75 m/s MV DecT: 319 ms MV A Toney: 0.90 m/s MV E/A Ratio: 0.83 RAP: 5.00 mmHg RVSP: 7.92 mmHg MV EF SLOPE: 69.05 mm/s (70 - 150) MV EXCURSION: 1.59 cm (> 18.000) FINDINGS -------- Sinus rhythm. This was a technically good study. The left ventricular size is normal. Left ventricular wall thickness is normal. Overall left vent ricular systolic function is normal with, an EF between 55 - 60 %. The right ventricle is normal in size and function. LA is midly dilated 29-33ml/m2. The right atrium is normal in size. The aortic valve is trileaflet, and appears structurally normal. No aortic stenosis or regurgitation. The mitral valve leaflets are mildly thickened. Mild mitral regurgitation is present. Trace tricuspid regurgitation present. Right ventricular systolic pressure is normal at < 35 mmHg. There is no evidence of pulmonary hypertension. The pulmonic valve was not well visualized. The aortic root size is normal. Normal inferior vena cava with normal inspiratory collapse consistent with estimated right atrial pre ssure of 5 mmHg. The pericardium is normal. There is no pericardial effusion. CONCLUSIONS -------- 1. Sinus rhythm. 2. This was a technically good study. 3. The left ventricular size is normal. 4. Left ventricular wall thickness is normal. 5. Overall left ventricular systolic function is normal with, an EF between 55 - 60 %. 6. LA is midly dilated 29-33ml/m2. 7. The aortic valve is trileaflet, and appears structurally normal. No aortic stenosis or regurgitati on. 8. The mitral valve leaflets are mildly thickened. 9. Mild mitral regurgitation is present. 10. Trace tricuspid regurgitation present. 11. Right ventricular systolic pressure is normal at < 35 mmHg. 12. There is no evidence of pulmonary hypertension. 13. The pulmonic valve was not well visualized. 14. The aortic root size is normal. 15. There is no pericardial effusion. PLASTIC DUPLICATOR: Nate Yeung RDCS
[2017-05-25 11:15] LABS: Glucose,Whole Blood 148 mg/dL (75-99)
[2017-05-25] MEDS: CLOPIDOGREL 75 MG TAB PO SCH (11:35)
[2017-05-25] MEDS: SERTRALINE 100 MG TAB PO SCH (11:35)
--- NOTE | 2017-05-25 13:30 | P.CNPUL ---
History of Present Illness Consult date: 05/25/17 Requesting physician: Christopher Serrano Reason for consult: dyspnea, cough, chest pain, COPD Chief complaint: Chest pain, shortness of breath, cough with phlegm production, wheezing History of present illness: Lucero is a 66-year-old white female patient that follows with Dr. Villalobos, who presented to the emergency department on 05/24/2017 at 1325 with complaints of increasing shortness of breath, wheezing, cough with production of yellow sputum, left chest discomfort. Patient was diagnosed with multiple myeloma, Bellerose light chain type, currently receiving chemotherapy for the past couple weeks, follows with Dr. Larson. She was seen by Dr. Larson on Monday and was told she has pneumonia. Patient did have some subjective fevers, her left chest discomfort along the left rib border is aggravated by coughing. She has never seen the technical maintenance specialist in the past, she was diagnosed with COPD by Dr. Villalobos, is not on any home oxygen, and is not on any inhalers or nebulized treatments. She is an ex-smoker, quit 2 years ago, but prior to that smoked 1 pack a day for 45 years since the age of 19. Chest x-ray completed in the emergency room showed no acute cardiopulmonary process, there was pulmonary hyperinflation and flattening of the diaphragms with biapical lucency indicative of underlying COPD. EKG showed normal sinus rhythm without acute ST elevation. Lab work was negative for any evidence of leukocytosis, diabetes he was 6.8, hemoglobin was 11.4, d-dimer was found to be elevated at 1.7, serum potassium was 5.2, chloride was 116, carbon dioxide was 17, BUN was 38, creatinine is was 2.47, CK-MB was 3.1, troponin was negative 1, proBNP was 2250 , lactic acid was 0.7. Influenza screen was negative, urinalysis showed 1+ protein, moderate amount of blood, negative nitrites, negative leuks. Patient has been afebrile while inpatient, hemodynamically stable, on 2 L per nasal cannula with O2 sat 95-98%. Pulmonary perfusion imaging showed low probability of pulmonary embolism. Echocardiogram showed preserved left ventricular systolic function with an EF between 55-60%, mild mitral regurg, trace tricuspid regurg, no evidence of pulmonary hypertension, with right ventricular systolic pressure less than 35 mmHg. Venous Doppler was negative for evidence of DVT. Other medical history includes hypertension, hyperlipidemia, CVA, rheumatoid arthritis, chronic kidney disease, stage III, history of degenerative joint disease. Patient was started on IV cefepime, Solu-Medrol, nebulized treatments and was admitted for further management. Review of Systems All systems: negative Constitutional: Denies chills, Denies fever Eyes: denies blurred vision, denies pain Ears, nose, mouth and throat: Denies headache, Denies sore throat Cardiovascular: Denies chest pain, Denies shortness of breath Respiratory: Reports cough with sputum, Reports dyspnea, Reports pain on inspiration, Denies cough Gastrointestinal: Denies abdominal pain, Denies diarrhea, Denies nausea, Denies vomiting Genitourinary: Denies dysuria, Denies hematuria Musculoskeletal: Denies myalgias Integumentary: Denies pruritus, Denies rash Neurological: Denies numbness, Denies weakness Psychiatric: Denies anxiety, Denies depression Endocrine: Denies fatigue, Denies weight change Past Medical History Past Medical History: CVA/TIA, Hyperlipidemia, Hypertension, Rheumatoid Arthritis (RA) Additional Past Medical History / Comment(s): Tigist CA, multiple mylemoa History of Any Multi-Drug Resistant Organisms: None Reported Past Surgical History: Back Surgery Additional Past Surgical History / Comment(s): LUMBAR FUSION 1.5 YRS AGO, BREAT IMPLANTS IN THE 'S REMOVED MID 'S Past Anesthesia/Blood Transfusion Reactions: No Reported Reaction Past Psychological History: No Psychological Hx Reported Smoking Status: Former smoker Past Alcohol Use History: None Reported Past Drug Use History: None Reported - Past Family History Father Additional Family Medical History / Comment(s): FATHER 99 YRS OLD STILL LIVING HAS PROSTATE ISSUES Mother Family Medical History: Cancer Additional Family Medical History / Comment(s): LUNG CANCER Medications and Allergies Home Medications Medication Instructions Recorded Confirmed Type Clopidogrel [Plavix] 75 mg PO W/LUNCH 01/28/17 05/24/17 History Latanoprost Ophth [Xalatan 0.005%] 1 drops BOTH EYES HS 01/28/17 05/24/17 History Losartan Potassium [Cozaar] 25 mg PO W/SUPPER 01/28/17 05/24/17 History Sertraline [Zoloft] 200 mg PO W/LUNCH 01/28/17 05/24/17 History Brimonidine Tartrate [Alphagan P 1 drops BOTH EYES BID 04/05/17 05/24/17 History 0.2% Ophth Soln] Acyclovir 400 mg PO DAILY 05/24/17 05/24/17 History Dexamethasone [Hexadrol] 20 mg PO DIRECTED 05/24/17 05/24/17 History Lenalidomide [Revlimid] 15 mg PO DIRECTED 05/24/17 05/24/17 History Prochlorperazine [Compazine] 10 mg PO Q6H PRN 05/24/17 05/24/17 History Ranitidine HCl [Zantac] 150 mg PO HS 05/24/17 05/24/17 History Allergies Allergy/AdvReac Type Severity Reaction Status Date / Time ciprofloxacin HCl Allergy Lip Verified 05/24/17 13:55 [From Cipro] swelling, itching codeine Allergy Unknown Verified 05/24/17 13:55 Sulfa (Sulfonamide Allergy Unknown Verified 05/24/17 13:55 Antibiotics) Physical Exam Vitals: Vital Signs Temp Pulse Pulse Resp BP BP Pulse Ox 05/25/17 11:18 78 05/25/17 11:07 72 05/25/17 08:00 74 20 05/25/17 07:44 76 05/25/17 07:32 68 98 05/25/17 07:00 97.9 F 74 20 132/70 98 05/24/17 23:06 97.7 F 93 18 139/61 97 05/24/17 19:30 98.0 F 95 20 166/74 95 05/24/17 19:22 98 05/24/17 19:13 94 05/24/17 18:47 97.8 F 84 18 143/64 97 05/24/17 16:43 97.9 F 89 18 146/65 99 05/24/17 14:48 86 05/24/17 14:39 86 05/24/17 13:36 97.0 F L 81 24 153/67 100 Intake and Output 05/24/17 05/25/17 05/25/17 22:59 06:59 14:59 Other: Voiding Method Toilet Toilet # Voids 1 1 Weight 45 kg 45 kg GENERAL EXAM: Alert, thin, 66-year-old white female comfortable in no apparent distress. HEAD: Normocephalic/atraumatic. EYES: Normal reaction of pupils, equal size. Conjunctiva pink, sclera white. NOSE: Clear with pink turbinates. THROAT: No erythema or exudates. NECK: No masses, no JVD, no thyroid enlargement, no adenopathy. CHEST: No chest wall deformity. Symmetrical expansion. LUNGS: Diminished air entry with no crackles, wheeze, rhonchi or dullness. CVS: Regular rate and rhythm, normal S1 and S2, no gallops, no murmurs, no rubs ABDOMEN: Soft, nontender. No hepatosplenomegaly, normal bowel sounds, no guarding or rigidity. EXTREMITIES: No clubbing, no edema, no cyanosis, 2+ pulses and upper and lower extremities. MUSCULOSKELETAL: Muscle strength and tone normal. SPINE: No scoliosis or deformity SKIN: No rashes CENTRAL NERVOUS SYSTEM: Alert and oriented -3. No focal deficits, tone is normal in all 4 extremities. PSYCHIATRIC: Alert and oriented -3. Appropriate affect. Intact judgment and insight. Results - Laboratory Findings CBC and BMP: 05/24/17 13:50 05/24/17 13:50 PT/INR, D-dimer PT 9.8 sec (9.0-12.0) 05/24/17 13:50 INR 1.0 (<1.2) 05/24/17 13:50 D-Dimer 1.70 mg/L FEU (<0.60) H 05/24/17 13:50 Abnormal lab findings: Abnormal Labs 05/24/17 05/24/17 05/24/17 13:50 13:50 13:50 RBC 3.54 L MCV 101.1 H Plt Count 107 L D Lymphocytes # 0.7 L D-Dimer Potassium 5.2 H Chloride 116 H Carbon Dioxide 17 L BUN 38 H Creatinine 2.47 H POC Glucose (mg/dL) Calcium 7.7 L CK-MB (CK-2) 3.1 H* Urine Protein Urine Blood Urine RBC Urine Mucus 05/24/17 05/25/17 05/25/17 13:50 06:41 09:39 RBC MCV Plt Count Lymphocytes # D-Dimer 1.70 H Potassium Chloride Carbon Dioxide BUN Creatinine POC Glucose (mg/dL) 112 H Calcium CK-MB (CK-2) Urine Protein 1+ H Urine Blood Moderate H Urine RBC 39 H Urine Mucus Rare H 05/25/17 11:14 RBC MCV Plt Count Lymphocytes # D-Dimer Potassium Chloride Carbon Dioxide BUN Creatinine POC Glucose (mg/dL) 148 H Calcium CK-MB (CK-2) Urine Protein Urine Blood Urine RBC Urine Mucus - Diagnostic Findings Chest x-ray: report reviewed Additional studies: 2-D echocardiogram, twelve-lead EKG, venous Doppler, and VQ scan reviewed Assessment and Plan Plan: Assessment: #1. Acute exacerbation of COPD complicated by purulent tracheobronchitis, chest x-ray shows no evidence of pneumonia #2. Elevated d-dimer, VQ scan showed low probability of pulmonary embolism, venous Dopplers was negative for any evidence of DVTs #3. Multiple myeloma, Bellerose Light chain type, currently receiving chemotherapy , on oral Revlimid and Dexamethasone. #4. Chronic kidney disease, stage III, secondary to multiple myeloma, and interstitial nephritis, nephrology is following #5. History of rheumatoid arthritis, previously treated with methotrexate, which has been discontinued in view of chronic kidney disease #6. Nicotine dependence, in remission, quit 2 years ago, carries a 45 year 1 pack a day smoking history #7. Thrombocytopenia, secondary to multiple myeloma #8. Hypertension, hyperlipidemia #9. History of CVA #10. Degenerative disc disease, history of lumbar fusion in 2016 Plan: Continue current antibiotic coverage with cefepime, continue IV Solu-Medrol, nebulized treatments. Patient will be treated for acute exacerbation of COPD with purulent tracheobronchitis. Chest x-ray has been reviewed, and shows no evidence of pneumonia. Patient will need to be set up for an outpatient follow- up with Dr. Hart in the office to quantify her lung function and stage her COPD , as well as optimize her medical management of COPD. We will add Symbicort. I performed a history & physical examination of the patient and discussed their management with my nurse practitioner, Bere Alves. I reviewed the nurse practitioner's note and agree with the documented findings and plan of care. Lung sounds are diminished. The findings and the impression was discussed with the patient. I attest to the documentation by the nurse practitioner. Time with Patient: Greater than 30
[2017-05-25 17:37] LABS: Glucose,Whole Blood 140 mg/dL (75-99)
[2017-05-25] MEDS: BUDESONIDE 1 MG/2 ML NEBU INHALATION SCH (19:34)
--- NOTE | 2017-05-25 19:43 | P.CONS ---
History of Present Illness - Reason for Consult Consult date: 05/25/17 Multiple Myeloma Requesting physician: Jeronimo Ro - Chief Complaint SOB, cough, failed outpt abx - History of Present Illness HPI : Ms Coleman is a pleasant white female, initially seen in consult at [facility] on 04/07/17. The patient had come in with complaints of not feeling well over the last 4-6 weeks, decreased appetite, decreased endurance, as well as nausea off and on. She had lost about 8-10 pounds during that time and was complaining of increased bone pain in the bilateral rib area. In the emergency room she was found to have increase in creatinine to 2.9 (baseline around 2), with calcium elevated at 13.4 as well as anemia. Labs ordered by nephrology as an outpatient on 03/31/17 had shown a markedly elevated Light chain at 4900 mg/dL with lambda light chains normal. Protein electrophoresis had been negative. The patient was treated with IV hydration and IV bisphosphonate with improvement in her calcium as well as partial improvement in renal function. She did require a blood transfusion for decline in hemoglobin. The patient then underwent a bone marrow aspiration biopsy in 04/11/17 and a subsequently discharged. The biopsy came back positive for myeloma, with monoclonal plasma cells occupying about 60% of the marrow elements. Cytogenetics were normal. a bone survey was negative for lytic lesions other than in the left upper humerus which had a moth-eaten appearance. 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 She is currently status post cycle 1 day 8 of revlimid, dexamethasone, Velcade. She was seen for follow-up on 05/11/17. She complained of cough and some increasing SOB . At that time Azithromycin was given, although symptoms did not go away and then became worse, she now presents to [facility] with increased SOB. She denies any Nausea or vomiting, No problems urinating. She has constant, chronic loose BMs. She has chronic pain. Pain and diarrhea are same as prior to admission and controlled on outpatient regimen. Her cough has become more productive, yellowish sputum. at bedside this morning. Review of Systems A 14 point review of systems assessed and completed and allnegative except HPI. Constitutional: Reports weakness Eyes: denies blurred vision, denies pain Ears, nose, mouth and throat: Reports nasal congestion Cardiovascular: Reports dyspnea on exertion Respiratory: Reports cough with sputum, Reports dyspnea Gastrointestinal: Reports diarrhea Genitourinary: Denies dysuria, Denies hematuria Menstruation: Reports postmenopausal Musculoskeletal: Reports muscle weakness Integumentary: Denies pruritus, Denies rash Neurological: Reports weakness, Denies numbness Psychiatric: Denies anxiety, Denies depression Endocrine: Reports fatigue, Denies weight change Hematologic/Lymphatic: Reports as per HPI Past Medical History Past Medical History: CVA/TIA, Hyperlipidemia, Hypertension, Rheumatoid Arthritis (RA) Additional Past Medical History / Comment(s): Tigist CA, multiple mylemoa History of Any Multi-Drug Resistant Organisms: None Reported Past Surgical History: Back Surgery Additional Past Surgical History / Comment(s): LUMBAR FUSION 1.5 YRS AGO, BREAT IMPLANTS IN THE 70'S REMOVED MID 'S Past Anesthesia/Blood Transfusion Reactions: No Reported Reaction Past Psychological History: No Psychological Hx Reported Smoking Status: Former smoker Past Alcohol Use History: None Reported Past Drug Use History: None Reported - Past Family History Father Additional Family Medical History / Comment(s): FATHER 99 YRS OLD STILL LIVING HAS PROSTATE ISSUES Mother Family Medical History: Cancer Additional Family Medical History / Comment(s): LUNG CANCER Medications and Allergies Home Medications Medication Instructions Recorded Confirmed Type Clopidogrel [Plavix] 75 mg PO W/LUNCH 01/28/17 05/24/17 History Latanoprost Ophth [Xalatan 0.005%] 1 drops BOTH EYES HS 01/28/17 05/24/17 History Losartan Potassium [Cozaar] 25 mg PO W/SUPPER 01/28/17 05/24/17 History Sertraline [Zoloft] 200 mg PO W/LUNCH 01/28/17 05/24/17 History Brimonidine Tartrate [Alphagan P 1 drops BOTH EYES BID 04/05/17 05/24/17 History 0.2% Ophth Soln] Acyclovir 400 mg PO DAILY 05/24/17 05/24/17 History Dexamethasone [Hexadrol] 20 mg PO DIRECTED 05/24/17 05/24/17 History Lenalidomide [Revlimid] 15 mg PO DIRECTED 05/24/17 05/24/17 History Prochlorperazine [Compazine] 10 mg PO Q6H PRN 05/24/17 05/24/17 History Ranitidine HCl [Zantac] 150 mg PO HS 05/24/17 05/24/17 History Allergies Allergy/AdvReac Type Severity Reaction Status Date / Time ciprofloxacin HCl Allergy Lip Verified 05/24/17 13:55 [From Cipro] swelling, itching codeine Allergy Unknown Verified 05/24/17 13:55 Sulfa (Sulfonamide Allergy Unknown Verified 05/24/17 13:55 Antibiotics) Physical Exam Vitals: Vital Signs Temp Pulse Pulse Resp BP BP Pulse Ox 05/25/17 15:46 88 05/25/17 15:37 88 05/25/17 14:23 97.1 F L 96 20 123/63 94 L 05/25/17 11:18 78 05/25/17 11:07 72 05/25/17 08:00 74 20 05/25/17 07:44 76 05/25/17 07:32 68 98 05/25/17 07:00 97.9 F 74 20 132/70 98 05/24/17 23:06 97.7 F 93 18 139/61 97 05/24/17 19:30 98.0 F 95 20 166/74 95 05/24/17 19:22 98 05/24/17 19:13 94 05/24/17 18:47 97.8 F 84 18 143/64 97 05/24/17 16:43 97.9 F 89 18 146/65 99 Intake and Output 05/25/17 05/25/17 05/25/17 06:59 14:59 22:59 Intake Total 240 Balance 240 Intake: Oral 240 Other: Voiding Method Toilet Toilet # Voids 1 3 Weight 45 kg - Constitutional General appearance: no acute distress - EENT Eyes: EOMI, PERRLA ENT: hearing grossly normal, normal oropharynx - Neck Neck: no lymphadenopathy Thyroid: bilateral: normal size - Respiratory Respiratory: bilateral: diminished, prolonged expiration - Cardiovascular Rhythm: regular Heart sounds: normal: S1, S2 - Gastrointestinal General gastrointestinal: normal bowel sounds, soft - Integumentary Integumentary: normal - Neurologic Neurologic: CNII-XII intact - Musculoskeletal Musculoskeletal: generalized weakness, strength equal bilaterally - Psychiatric Psychiatric: A&O x's 3, appropriate affect Results CBC & Chem 7: 05/24/17 13:50 05/25/17 17:22 Labs: Abnormal Lab Results - Last 24 Hours (Table) 05/24/17 05/25/17 05/25/17 Range/Units 13:50 06:41 09:39 D-Dimer 1.70 H (<0.60) mg/L FEU POC Glucose (mg/dL) 112 H (75-99) mg/dL Urine Protein 1+ H (Negative) Urine Blood Moderate H (Negative) Urine RBC 39 H (0-5) /hpf Urine Mucus Rare H (None) /hpf 05/25/17 Range/Units 11:14 D-Dimer (<0.60) mg/L FEU POC Glucose (mg/dL) 148 H (75-99) mg/dL Urine Protein (Negative) Urine Blood (Negative) Urine RBC (0-5) /hpf Urine Mucus (None) /hpf Microbiology - Last 24 Hours (Table) 05/25/17 09:39 Urine Culture - Preliminary Urine,Voided CT scan - chest: report reviewed Assessment and Plan (1) Acute exacerbation of chronic obstructive airways disease Narrative/Plan: Most Likely etiology. VQ scan was low probability for PE. She does have a h/o smoking. She failed outpt zithromax 1. Continue on IV antibiotics. 2. Assess for improvments, if no improvements will need to consider possibility of atypical infections with current disease myeloma and treatment regimen ( prophylactically on bactrim and acyclovir for viral and PCP prophylaxis) 3. Will hold Revlimid and Velcade at this time and resume when acute infection and symptoms improve/resolve 4. Continue supportive care 5. WIll check immunoglobulins as this may sometimes be decreased in patients with MM making it difficult to fight off infections. If low may give IVIG infusion, especially if nor responding to std therapy. Current Visit: Yes Status: Acute Code(s): J44.1 - CHRONIC OBSTRUCTIVE PULMONARY DISEASE W (ACUTE) EXACERBATION SNOMED Code(s): 036999480 (2) ARF (acute renal failure) Narrative/Plan: 1. Secondary to Underlying Myeloma and disease. Cr stable vs prior admission 2. Nephrology following 3. continue supportive care and monitor daily CMP Current Visit: No Status: Acute Code(s): N17.9 - ACUTE KIDNEY FAILURE, UNSPECIFIED SNOMED Code(s): 56786705 (3) Bicytopenia Narrative/Plan: Due to MM and chemo. Counts are in a safe range. Continue to monitor Current Visit: No Status: Acute Code(s): D75.89 - OTHER SPECIFIED DISEASES OF BLOOD AND BLOOD-FORMING ORGANS SNOMED Code(s): 882052514 (4) [place]re[place] light chain myeloma Narrative/Plan: Treatment currently on hold, refer to Number one problem and impression and plan. Current Visit: No Status: Acute Code(s): C90.00 - MULTIPLE MYELOMA NOT HAVING ACHIEVED REMISSION SNOMED Code(s): 197852083 (5) Chronic kidney disease Current Visit: No Status: Chronic Code(s): N18.9 - CHRONIC KIDNEY DISEASE, UNSPECIFIED SNOMED Code(s): 867620094
[2017-05-25] MEDS ORDERED: SYMBICORT 160-4.5 MCG INHALER INHALATION SCH (20:00)
--- NOTE | 2017-05-25 20:31 | PN ---
PROGRESS NOTE DATE OF SERVICE: 05/25/2017 PRESENTING COMPLAINT: Short of breath, cough, tired. INTERVAL HISTORY: This is a patient who started with chemotherapy for multiple myeloma about 2 weeks ago and presented with shortness of breath, felt to have acute COPD exacerbation with acute tracheobronchitis. She has a congested cough, bringing up some yellow sputum. Patient did eat her breakfast and lunch today. Did have a bowel movement yesterday. Has pain on the left side of the chest wall. She does feel tired and rundown. REVIEW OF SYSTEMS: Done for constitutional, cardiovascular, GI, pulmonary, musculoskeletal; relevant findings as above. CURRENT MEDICATIONS: Current medications are reviewed that include: 1. DuoNeb. 2. Symbicort. 3. Plavix. 4. Pepcid. 5. IV Solu-Medrol. PHYSICAL EXAMINATION: Afebrile. Pulse 96, respiration 20, blood pressure 123/63, pulse ox 94% on room air. GENERAL APPEARANCE: Lying in bed, tired-appearing. EYES: Pupils equal. Conjunctivae pale. HEENT: External appearance of nose and ears normal. Oral cavity normal. NECK: JVD not raised. Mass not palpable. RESPIRATORY: Effort increased. LUNGS: Decreased breath sounds with prolonged expiration. CARDIOVASCULAR: First and second sounds normal. No edema. ABDOMEN: Soft, nontender. Liver and spleen not palpable. PSYCHIATRY: Alert and oriented x3. Mood and affect slightly anxious-appearing. INVESTIGATIONS: White count 6.8 from yesterday. Hemoglobin 11.4, potassium 5.2, creatinine 2.47, close to the baseline. ASSESSMENT: 1. Acute chronic obstructive pulmonary disease exacerbation in an ex-smoker with acute tracheobronchitis. 2. Chronic kidney disease, stage IV, from hypertensive nephrosclerosis. 3. Essential hypertension. 4. Hyperlipidemia. 5. Depression not otherwise specified. 6. Left chest wall rib pain, likely from involvement of multiple myeloma. 7. Thrombocytopenia. 8. Metabolic acidosis, likely from renal failure. PLAN: Continue patient on DuoNeb. The patient is also on IV steroids. Will add some inhaled steroids. Will switch the patient over to oral antibiotics for the tracheobronchitis. Care was discussed with the patient. Patient is slow to respond from a COPD standpoint. Will send off for urgent potassium check right now. MMODL / IJN: [id number] /
[2017-05-25] MEDS: FAMOTIDINE 20 MG TAB PO SCH (20:32)
[2017-05-25] MEDS: LATANOPROST 0.005% OPHTH DROPS 2.5 ML BTL BOTH EYES SCH (20:32)
[2017-05-25] MEDS: CEFUROXIME 250 MG TAB PO SCH (20:33)
[2017-05-25 20:39] LABS: Glucose,Whole Blood 130 mg/dL (75-99)
--- NOTE | 2017-05-25 22:37 | CONS ---
CONSULTATION REASON FOR CONSULT: Renal failure. HISTORY OF PRESENT ILLNESS: The patient is a 66-year-old female with a history of chronic kidney disease and recently diagnosed multiple myeloma who was admitted to the hospital with complaints of shortness of breath which has been progressive over the past week or so. The patient stated that she started chemotherapy a couple of weeks ago. She has had cough and productive of a scant amount of phlegm. She denies use of any nonsteroidal anti- inflammatory agents. She is maintained on Revlimid. The patient is also on Cozaar at home. Her serum creatinine on admission was 2.47 mg/dL from yesterday. We do not have any labs today. Previous creatinine on 04/20 was 2.8 and on 04/11/2017 was 2.5 mg/dL. The patient was not hypotensive. PAST MEDICAL HISTORY: CKD, NKF stage IV secondary to nephrosclerosis and possibly chronic interstitial nephritis from previous chronic NSAID use and a component of multiple myeloma. It was diagnosed during her last admission in April when patient presented with hypercalcemia and acute kidney injury. Her serum creatinine has stayed about her current value at about 2.5-2.8 mg/dL. History of CVA/TIA, hyperlipidemia, hypertension, rheumatoid arthritis. PAST SURGICAL HISTORY: Lumbar fusion, breast implants. SOCIAL HISTORY: Patient is a former smoker. No history of drug abuse or alcohol abuse. HOME MEDICATIONS: Include: 1. Plavix. 2. Cozaar. 3. Methotrexate. 4. Zoloft. 5. Revlimid. 6. Hexadrol. 7. Plavix. 8. Compazine and. 9. Zantac. 10.Methotrexate is now discontinued. ALLERGIES: Include CIPRO, SULFA AND CODEINE. Social history is negative for smoking currently. Patient is a former smoker. No history of drug abuse or alcohol abuse. PHYSICAL EXAMINATION: Patient is comfortable. Blood pressure this morning was 132/70, heart rate 88 per minute. Patient is afebrile. HEART: S1, S2. LUNGS: Bilateral breath sounds are heard. Occasional wheezing is heard bilaterally. Abdomen is soft, nontender. Lower extremities show no evidence of edema. INFECTION CONTROL SPECIALIST is grossly intact. INFECTION CONTROL SPECIALIST is grossly intact. LABS: Show sodium 144, potassium 5.2, chloride 116, BUN 38, serum creatinine 2.47, hemoglobin 11.4 g/dL. ASSESSMENT: 1. Chronic kidney disease, multifactorial etiology, including previous chronic nonsteroidal anti-inflammatory drug use, a component of multiple myeloma. Currently maintained on chemotherapy. Renal function is at its baseline. 2. Possible pneumonia, being followed by Pulmonary. Maintained on Ceftin and steroids. 3. Multiple myeloma, currently on chemotherapy. PLAN: Continue current medication. Encourage increased oral intake. Avoid IV fluids or diuretics for now. Thank you for this consultation. We will continue to follow the patient with you during her hospitalization. MMODL / IJN: [id number] /
[2017-05-26] MEDS: methylPREDNISolone SOD SUCCI 40 MG/ML 1 ML VIAL IV SCH ×3 (00:36→16:32)
[2017-05-26 07:24] LABS: Glucose,Whole Blood 111 mg/dL (75-99)
[2017-05-26 07:44] LABS: Calcium 8.2 mg/dL (8.4-10.2)
[2017-05-26 07:46] LABS: Potassium 6.6 mmol/L (3.5-5.1)
[2017-05-26 07:52] LABS: Basophils % (A) 0 %; Eosinophils # (A) 0.1 k/uL (0-0.7); Eosinophils % (A) 2 %; HCT 31.8 % (34.0-46.0); Lymphocytes # (A) 0.9 k/uL (1.0-4.8); Lymphocytes % (A) 16 %; MCH 31.7 pg (25.0-35.0); MCHC 31.5 g/dL (31.0-37.0); MCV 100.5 fL (80.0-100.0); Mean Platelet Volume 10.5; Monocytes # (A) 0.4 k/uL (0-1.0); Monocytes % (A) 8 %; Neutrophils % (A) 71 %; RBC 3.16 m/uL (3.80-5.40); RDW 13.6 % (11.5-15.5); WBC 5.6 k/uL (3.8-10.6)
[2017-05-26] MEDS: BRIMONIDINE TARTRATE 0.2% DROPS 5 ML BTL BOTH EYES SCH ×2 (07:58→20:51)
[2017-05-26] MEDS: CEFUROXIME 250 MG TAB PO SCH ×2 (07:58→20:51)
[2017-05-26] MEDS: INSULIN ASPART 100 UNIT/ML 1 ML 10 ML VIAL SQ SCH ×4 (07:59→20:51)
[2017-05-26] MEDS: ACYCLOVIR 200 MG CAP PO SCH (07:59)
[2017-05-26] MEDS ORDERED: DEXTROSE 50%-WATER 50 ML SYRINGE IVP STA (08:26)
[2017-05-26] MEDS ORDERED: ALBUTEROL NEB (CONC) 2.5 MG/0.5 ML INHALATION ONE (08:32)
[2017-05-26] MEDS ORDERED: SODIUM BICARB 8.4% 50 ML SYR (1 MEQ/ML) IV STA (08:35)
[2017-05-26] MEDS ORDERED: SODIUM POLYSTYRENE SULFONATE 15 GM/60 ML BOTTLE PO STA (08:36)
[2017-05-26] MEDS: traMADol 50 MG TAB PO PRN ×2 (08:44→16:45)
[2017-05-26] MEDS ORDERED: INSULIN REGULAR 100 UNIT/ML VIAL IV ONE (08:45)
[2017-05-26] MEDS ORDERED: CALCIUM GLUCONATE 1,000 MG in SODIUM CHLORIDE 0.9% 100 ML IVPB ONE (09:00)
[2017-05-26] MEDS ORDERED: CEFEPIME 2 GM in SODIUM CHLORIDE 0.9% 50 ML IVPB SCH (09:00)
[2017-05-26] MEDS: IPRATROPIUM-ALBUTEROL 3 ML NEB INHALATION SCH ×4 (09:06→20:16)
[2017-05-26] MEDS: BUDESONIDE 1 MG/2 ML NEBU INHALATION SCH ×2 (09:06→20:16)
[2017-05-26 09:09] LABS: Large Platelets Present
[2017-05-26 09:10] LABS: Platelet Count 81 k/uL (150-450)
--- NOTE | 2017-05-26 11:12 | P.PN ---
Subjective Progress Note Date: 05/26/17 Principal diagnosis: Acute exacerbation of COPD company by purulent tracheobronchitis Lucero is a 66-year-old white female patient that follows with Dr. Villalobos, who presented to the emergency department on 05/24/2017 at 1325 with complaints of increasing shortness of breath, wheezing, cough with production of yellow sputum, left chest discomfort. Patient was diagnosed with multiple myeloma, [place] light chain type, currently receiving chemotherapy for the past couple weeks, follows with Dr. Larson. She was seen by Dr. Larson on Monday and was told she has pneumonia. Patient did have some subjective fevers, her left chest discomfort along the left rib border is aggravated by coughing. She has never seen the sales specialist in the past, she was diagnosed with COPD by Dr. Villalobos, is not on any home oxygen, and is not on any inhalers or nebulized treatments. She is an ex-smoker, quit 2 years ago, but prior to that smoked 1 pack a day for 45 years since the age of 19. Chest x-ray completed in the emergency room showed no acute cardiopulmonary process, there was pulmonary hyperinflation and flattening of the diaphragms with biapical lucency indicative of underlying COPD. EKG showed normal sinus rhythm without acute ST elevation. Lab work was negative for any evidence of leukocytosis, diabetes he was 6.8, hemoglobin was 11.4, d-dimer was found to be elevated at 1.7, serum potassium was 5.2, chloride was 116, carbon dioxide was 17, BUN was 38, creatinine is was 2.47, CK-MB was 3.1, troponin was negative 1, proBNP was 2250 , lactic acid was 0.7. Influenza screen was negative, urinalysis showed 1+ protein, moderate amount of blood, negative nitrites, negative leuks. Patient has been afebrile while inpatient, hemodynamically stable, on 2 L per nasal cannula with O2 sat 95-98%. Pulmonary perfusion imaging showed low probability of pulmonary embolism. Echocardiogram showed preserved left ventricular systolic function with an EF between 55-60%, mild mitral regurg, trace tricuspid regurg, no evidence of pulmonary hypertension, with right ventricular systolic pressure less than 35 mmHg. Venous Doppler was negative for evidence of DVT. Other medical history includes hypertension, hyperlipidemia, CVA, rheumatoid arthritis, chronic kidney disease, stage III, history of degenerative joint disease. Patient was started on IV cefepime, Solu-Medrol, nebulized treatments and was admitted for further management. On 05/26/2017 patient seen in follow-up. She states her breathing is a little easier today, lung sounds are diminished, particularly over posterior right lung. On 2 L per nasal cannula with O2 sat 97%. She's afebrile, vital signs are stable. She continues on oral Ceftin, she is on Pulmicort nebulized treatments, she is on DuoNeb, and her IV Solu-Medrol he has been decreased to 40 mg every 8 hours per attending physician. No wheezes, no rhonchi noted. Her cough is subsiding. Her left chest discomfort along the left rib margin persists. Patient was receiving oral Ultram for that. On today's blood work patient's potassium is acutely elevated at 6.6, renal profile is worsening, with B1 up to 43, and creatinine of 2.56. Nephrology is following. Patient was given sodium bicarb, amp of D50, calcium gluconate, and regular insulin per protocol. Objective - Vital Signs Vital signs: Vital Signs Temp 97.6 F 05/26/17 07:00 Pulse 89 05/26/17 09:34 Resp 16 05/26/17 09:20 BP 125/64 05/26/17 07:00 Pulse Ox 97 05/26/17 07:00 Intake & Output 05/25/17 05/26/17 05/26/17 18:59 06:59 18:59 Intake Total 240 250 Balance 240 250 Weight 45 kg Intake: Oral 240 250 Other: Voiding Method Toilet Toilet Toilet # Voids 3 1 - Exam GENERAL EXAM: Alert, thin, 66-year-old white female comfortable in no apparent distress. HEAD: Normocephalic/atraumatic. EYES: Normal reaction of pupils, equal size. Conjunctiva pink, sclera white. NOSE: Clear with pink turbinates. THROAT: No erythema or exudates. NECK: No masses, no JVD, no thyroid enlargement, no adenopathy. CHEST: No chest wall deformity. Symmetrical expansion. LUNGS: Diminished air entry with no crackles, wheeze, rhonchi or dullness. CVS: Regular rate and rhythm, normal S1 and S2, no gallops, no murmurs, no rubs ABDOMEN: Soft, nontender. No hepatosplenomegaly, normal bowel sounds, no guarding or rigidity. EXTREMITIES: No clubbing, no edema, no cyanosis, 2+ pulses and upper and lower extremities. MUSCULOSKELETAL: Muscle strength and tone normal. SPINE: No scoliosis or deformity SKIN: No rashes CENTRAL NERVOUS SYSTEM: Alert and oriented -3. No focal deficits, tone is normal in all 4 extremities. PSYCHIATRIC: Alert and oriented -3. Appropriate affect. Intact judgment and insight. - Labs CBC & Chem 7: 05/26/17 06:55 05/26/17 06:55 Labs: Abnormal Lab Results - Last 24 Hours (Table) 05/25/17 05/25/17 05/25/17 Range/Units 11:14 17:07 17:22 RBC (3.80-5.40) m/uL Hgb (11.4-16.0) gm/dL Hct (34.0-46.0) % MCV (80.0-100.0) fL Plt Count (150-450) k/uL Lymphocytes # (1.0-4.8) k/uL Potassium 5.6 H (3.5-5.1) mmol/L Chloride (98-107) mmol/L Carbon Dioxide (22-30) mmol/L BUN (7-17) mg/dL Creatinine (0.52-1.04) mg/dL Glucose (74-99) mg/dL POC Glucose (mg/dL) 148 H 140 H (75-99) mg/dL Calcium (8.4-10.2) mg/dL 05/25/17 05/26/17 05/26/17 Range/Units 20:37 06:55 06:55 RBC 3.16 L (3.80-5.40) m/uL Hgb 10.0 L (11.4-16.0) gm/dL Hct 31.8 L (34.0-46.0) % MCV 100.5 H (80.0-100.0) fL Plt Count 81 L (150-450) k/uL Lymphocytes # 0.9 L (1.0-4.8) k/uL Potassium 6.6 H* (3.5-5.1) mmol/L Chloride 114 H (98-107) mmol/L Carbon Dioxide 18 L (22-30) mmol/L BUN 43 H (7-17) mg/dL Creatinine 2.56 H (0.52-1.04) mg/dL Glucose 100 H (74-99) mg/dL POC Glucose (mg/dL) 130 H (75-99) mg/dL Calcium 8.2 L (8.4-10.2) mg/dL 05/26/17 Range/Units 07:22 RBC (3.80-5.40) m/uL Hgb (11.4-16.0) gm/dL Hct (34.0-46.0) % MCV (80.0-100.0) fL Plt Count (150-450) k/uL Lymphocytes # (1.0-4.8) k/uL Potassium (3.5-5.1) mmol/L Chloride (98-107) mmol/L Carbon Dioxide (22-30) mmol/L BUN (7-17) mg/dL Creatinine (0.52-1.04) mg/dL Glucose (74-99) mg/dL POC Glucose (mg/dL) 111 H (75-99) mg/dL Calcium (8.4-10.2) mg/dL Microbiology - Last 24 Hours (Table) 05/24/17 13:50 Blood Culture - Preliminary Blood No Growth after 24 hours 05/25/17 09:39 Urine Culture - Preliminary Urine,Voided Assessment and Plan Plan: Assessment: #1. Acute exacerbation of COPD complicated by purulent tracheobronchitis, chest x-ray shows no evidence of pneumonia #2. Elevated d-dimer, VQ scan showed low probability of pulmonary embolism, venous Dopplers was negative for any evidence of DVTs #3. Multiple myeloma, Combine Light chain type, currently receiving chemotherapy , on oral Revlimid and Dexamethasone. #4. Chronic kidney disease, stage III, secondary to multiple myeloma, and interstitial nephritis, nephrology is following #5. History of rheumatoid arthritis, previously treated with methotrexate, which has been discontinued in view of chronic kidney disease #6. Nicotine dependence, in remission, quit 2 years ago, carries a 45 year 1 pack a day smoking history #7. Thrombocytopenia, secondary to multiple myeloma #8. Hypertension, hyperlipidemia #9. History of CVA #10. Degenerative disc disease, history of lumbar fusion in 2016 Plan: Continue IV steroids, nebulized treatments, Pulmicort, will and Perforomist. Hyperkalemia is being treated. From pulmonary standpoint patient reports improvement in dyspnea, wheezing and coughing. Remains stable from pulmonary standpoint. Continue oral Ceftin. Patient will need to follow-up with Dr. Hart on outpatient basis, her appointment has been set up for June 02 at 10:00 in the morning. I performed a history & physical examination of the patient and discussed their management with my nurse practitioner, Bere Alves. I reviewed the nurse practitioner's note and agree with the documented findings and plan of care. Lung sounds are diminished. The findings and the impression was discussed with the patient. I attest to the documentation by the nurse practitioner. Time with Patient: Less than 30
[2017-05-26 11:16] LABS: Glucose,Whole Blood 96 mg/dL (75-99)
[2017-05-26] MEDS: SERTRALINE 100 MG TAB PO SCH (12:46)
[2017-05-26] MEDS: CLOPIDOGREL 75 MG TAB PO SCH (12:47)
--- NOTE | 2017-05-26 13:50 | PN ---
PROGRESS NOTE Patient is seen for followup for chronic kidney disease secondary to chronic NSAID use and possibly secondary to underlying multiple myeloma as well. The patient was admitted to the hospital with shortness of breath. She is being treated for pneumonia. She has recently been started on treatment for recently diagnosed multiple myeloma. PHYSICAL EXAMINATION: On examination, blood pressure is 125/64, heart rate 76 per minute. She is afebrile. EXAMINATION OF THE HEART: S1, S2. EXAMINATION OF THE LUNGS: Bilateral breath sounds are heard. No crackles or wheezing is heard. Abdomen is soft, nontender. Examination of the lower extremities shows no significant edema. LABS: Labs show sodium 142, potassium 6.6, chloride 114. CO2 is 18, BUN 43, serum creatinine 2.56. ASSESSMENT: 1. Chronic kidney disease NKF stage IV renal function close to baseline. Etiology is chronic history of chronic NSAID use as well as secondary to possibly underlying multiple myeloma, maintained on chemotherapy for multiple myeloma. 2. Hyperkalemia associated with chronic kidney disease. Patient is not on [place] inhibitors or angiotensin receptor blockers. She has received IV treatment for the hyperkalemia. We will recheck another serum potassium in about 4 hours. I will hold off on the Kayexalate as patient has had diarrhea prior to admission. She is maintained on a low-potassium diet. We may be able to use small dose loop diuretics to help with the hyperkalemia. 3. Multiple myeloma, currently under treatment with Dr. Larson. 4. Hypercalcemia on previous admission secondary to multiple myeloma, currently improved. 5. A lytic lesion left upper humerus. 6. Possible pneumonia. 7. Acute exacerbation of chronic obstructive pulmonary disease. 8. 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 PLAN: Hold off on Kayexalate. Repeat serum potassium about 4 hours later. Maintain patient on low-potassium diet. We can add low-dose loop diuretics to help with the hyperkalemia if her potassium remains elevated. MMODL / IJN: [id number] /
[2017-05-26 17:33] LABS: Glucose,Whole Blood 115 mg/dL (75-99)
[2017-05-26 20:12] LABS: Glucose,Whole Blood 158 mg/dL (75-99)
[2017-05-26] MEDS: FORMOTEROL FUMARATE 20 MCG/2 ML NEBU INHALATION SCH (20:33)
[2017-05-26] MEDS: FAMOTIDINE 20 MG TAB PO SCH (20:51)
[2017-05-26] MEDS: LATANOPROST 0.005% OPHTH DROPS 2.5 ML BTL BOTH EYES SCH (20:51)
--- NOTE | 2017-05-27 07:00 | PN ---
PROGRESS NOTE DATE OF SERVICE: 05/26/17. PRESENTING COMPLAINT: Short of breath. INTERVAL HISTORY: The patient being treated for multiple myeloma, presented with acute COPD exacerbation. Feels much better today. Sputum production has gone down. Eating better. Less wheezing. REVIEW OF SYSTEMS: Done for constitutional, cardiovascular, GI, pulmonary; relevant findings as above. CURRENT MEDICATIONS: Reviewed that include Ceftin, IV Solu-Medrol, DuoNeb. PHYSICAL EXAMINATION: Temperature 98.2, pulse 101, respiration 16, blood pressure 150/69, pulse ox 98% on room air. GENERAL APPEARANCE: Sitting at the edge of bed, doing much better today. EYES: Pupils equal. Conjunctivae pale. HEENT: External nose and ears normal. Oral cavity normal. NECK: JVD not raised. Mass not palpable. RESPIRATORY: Effort increased. Lungs, improved air entry. Decreased wheezing. CARDIOVASCULAR: 1st and 2nd sounds normal. No edema. ABDOMEN: Soft, nontender. Liver and spleen not palpable. PSYCHIATRY: Alert and oriented x3. Mood and affect normal. INVESTIGATIONS: White count 5.6, hemoglobin 10, potassium 5.4, earlier 6.6. Creatinine 2.56. ASSESSMENT: 1. Acute chronic obstructive pulmonary disease exacerbation in an ex-smoker and acute tracheobronchitis, improving. 2. Chronic kidney disease stage IV from hypertensive nephrosclerosis and probably effect from multiple myeloma. 3. Essential hypertension. 4. Hyperlipidemia. 5. Depression, not otherwise specified. 6. Left chest wall pain, likely from involvement of multiple myeloma. 7. Thrombocytopenia. 8. Metabolic acidosis from renal failure. 9. Severe hyperkalemia from renal failure. PLAN: Earlier ordered sodium bicarb, calcium gluconate, breathing treatment, EKG. Low- potassium diet. The patient is put on telemetry. Repeat potassium did come down to 5.4. The patient is clinically looking better. Follow with Nephrology. Will further cut back the dose of Solu-Medrol. MMODL / IJN: [id number] /
[2017-05-27 07:43] LABS: Glucose,Whole Blood 82 mg/dL (75-99)
[2017-05-27 08:13] LABS: HCT 33.6 % (34.0-46.0); HGB 10.7 gm/dL (11.4-16.0); MCH 31.8 pg (25.0-35.0); MCHC 31.8 g/dL (31.0-37.0); MCV 100.2 fL (80.0-100.0); Mean Platelet Volume 10.2; RBC 3.35 m/uL (3.80-5.40); RDW 13.6 % (11.5-15.5); WBC 8.4 k/uL (3.8-10.6)
[2017-05-27 08:17] LABS: Calcium 9.3 mg/dL (8.4-10.2); Potassium 5.6 mmol/L (3.5-5.1)
[2017-05-27] MEDS: BUDESONIDE 1 MG/2 ML NEBU INHALATION SCH ×2 (08:26→21:13)
[2017-05-27] MEDS: IPRATROPIUM-ALBUTEROL 3 ML NEB INHALATION SCH ×4 (08:26→21:13)
[2017-05-27] MEDS: FORMOTEROL FUMARATE 20 MCG/2 ML NEBU INHALATION SCH ×2 (08:26→21:13)
[2017-05-27 08:32] LABS: Platelet Count 96 k/uL (150-450)
[2017-05-27] MEDS: INSULIN ASPART 100 UNIT/ML 1 ML 10 ML VIAL SQ SCH ×4 (09:24→20:24)
[2017-05-27] MEDS: CEFUROXIME 250 MG TAB PO SCH ×2 (09:26→20:24)
[2017-05-27] MEDS: BRIMONIDINE TARTRATE 0.2% DROPS 5 ML BTL BOTH EYES SCH ×2 (09:26→20:25)
[2017-05-27] MEDS: predniSONE 20 MG TAB PO SCH (09:27)
[2017-05-27] MEDS: ACYCLOVIR 200 MG CAP PO SCH (09:27)
[2017-05-27] MEDS ORDERED: DEXTROSE 50%-WATER 50 ML SYRINGE IVP STA ×2 (10:33→15:04)
[2017-05-27] MEDS ORDERED: INSULIN REGULAR 100 UNIT/ML VIAL IV ONE ×2 (10:33→15:15)
[2017-05-27] MEDS ORDERED: FUROSEMIDE 20 MG TAB PO STA (10:34)
[2017-05-27 11:14] LABS: Glucose,Whole Blood 111 mg/dL (75-99)
--- NOTE | 2017-05-27 11:26 | P.PN ---
Subjective Patient is seen in follow-up for chronic kidney disease. Patient has chronic kidney disease stage IV with baseline creatinine near 2.5. GFR is at baseline. Patient's currently being treated for pneumonia. States her breathing is significantly improved. Oral intake is good. No vomiting or diarrhea. No active complaints at this time. Potassium is slightly elevated and she is also noted to be acidotic. Vital signs are stable. General: The patient appeared well nourished and normally developed. HEENT: Head exam is unremarkable. Neck is without jugular venous distension. LUNGS: Lungs are clear to auscultation and percussion. Breath sounds decreased. HEART: Rate and Rhythm are regular. First and second heart sounds normal. No murmurs, rubs or gallops. ABDOMEN: Abdominal exam reveals normal bowel sounds. Non-tender and non- distended. No evidence of peritonitis. EXTREMITITES: No clubbing, cyanosis, or edema. Objective - Vital Signs Vital signs: Vital Signs Temp 98.0 F 05/27/17 07:00 Pulse 88 05/27/17 08:47 Resp 20 05/27/17 07:00 BP 131/58 05/27/17 07:00 Pulse Ox 98 05/27/17 08:26 Intake & Output 05/26/17 05/27/17 05/27/17 18:59 06:59 18:59 Intake Total 300 Balance 300 Intake: Oral 300 Other: Voiding Method Toilet Toilet # Voids 2 3 - Labs CBC & Chem 7: 05/27/17 07:23 05/27/17 07:23 Labs: Abnormal Lab Results - Last 24 Hours (Table) 05/26/17 05/26/17 05/26/17 Range/Units 06:55 13:53 17:31 RBC (3.80-5.40) m/uL Hgb (11.4-16.0) gm/dL Hct (34.0-46.0) % MCV (80.0-100.0) fL Plt Count (150-450) k/uL Potassium 5.4 H (3.5-5.1) mmol/L Chloride (98-107) mmol/L Carbon Dioxide (22-30) mmol/L BUN (7-17) mg/dL Creatinine (0.52-1.04) mg/dL Glucose (74-99) mg/dL POC Glucose (mg/dL) 115 H (75-99) mg/dL IgG 554.0 L (700.0-1600.0) mg/dL 05/26/17 05/27/17 05/27/17 Range/Units 20:11 07:23 07:23 RBC 3.35 L (3.80-5.40) m/uL Hgb 10.7 L (11.4-16.0) gm/dL Hct 33.6 L (34.0-46.0) % MCV 100.2 H (80.0-100.0) fL Plt Count 96 L (150-450) k/uL Potassium 5.6 H (3.5-5.1) mmol/L Chloride 111 H (98-107) mmol/L Carbon Dioxide 19 L (22-30) mmol/L BUN 44 H (7-17) mg/dL Creatinine 2.30 H (0.52-1.04) mg/dL Glucose 63 L (74-99) mg/dL POC Glucose (mg/dL) 158 H (75-99) mg/dL IgG (700.0-1600.0) mg/dL 05/27/17 Range/Units 11:13 RBC (3.80-5.40) m/uL Hgb (11.4-16.0) gm/dL Hct (34.0-46.0) % MCV (80.0-100.0) fL Plt Count (150-450) k/uL Potassium (3.5-5.1) mmol/L Chloride (98-107) mmol/L Carbon Dioxide (22-30) mmol/L BUN (7-17) mg/dL Creatinine (0.52-1.04) mg/dL Glucose (74-99) mg/dL POC Glucose (mg/dL) 111 H (75-99) mg/dL IgG (700.0-1600.0) mg/dL Microbiology - Last 24 Hours (Table) 05/24/17 13:50 Blood Culture - Preliminary Blood No Growth after 48 hours 05/25/17 09:39 Urine Culture - Final Urine,Voided Assessment and Plan Plan: Assessment: #1. Chronic kidney disease stage IV with baseline creatinine near 2.5 secondary to chronic NSAID use and multiple myeloma. GFR at baseline. #2. CABG and multiple myeloma maintained on chemotherapy by oncology. #3. History of hypercalcemia. Currently in the normal range. #4. Hyperkalemia secondary to chronic kidney disease and metabolic acidosis. #5. Metabolic acidosis secondary to chronic kidney disease. Plan: 10 units of IV insulin with amp of D50 now. Add oral solute bicarbonate 1300 mg twice daily. Lasix 20 mg orally once. Maintain low potassium diet. Repeat potassium level this evening. Avoid nephrotoxic agents and hypotensive episodes.
[2017-05-27] MEDS: SODIUM BICARBONATE TAB 650 MG TAB PO SCH ×2 (11:47→21:10)
[2017-05-27] MEDS: HYDROcodone/APAP 5-325MG 1 EACH TAB PO PRN ×2 (11:47→22:57)
[2017-05-27] MEDS: CLOPIDOGREL 75 MG TAB PO SCH (11:58)
[2017-05-27] MEDS: SERTRALINE 100 MG TAB PO SCH (11:58)
[2017-05-27 12:21] LABS: Eosinophils # (M) 0.17 k/uL (0-0.7); Lymphocytes # (M) 2.69 k/uL (1.0-4.8); Monocytes # (M) 1.01 k/uL (0-1.0); Neutrophils # (M) 4.54 k/uL (1.3-7.7); Neutrophils % (M) 54 %; Nucleated Red Blood Cells 0 /100 WBC (0-0); Total Cells Counted 100
--- NOTE | 2017-05-27 12:40 | P.PN ---
Subjective Progress Note Date: 05/27/17 Principal diagnosis: Acute exacerbation of chronic obstructive pulmonary disease complicated by purulent tracheobronchitis Lucero is a 66-year-old white female patient that follows with Dr. Villalobos, who presented to the emergency department on 05/24/2017 at 1325 with complaints of increasing shortness of breath, wheezing, cough with production of yellow sputum, left chest discomfort. Patient was diagnosed with multiple myeloma, [place] light chain type, currently receiving chemotherapy for the past couple weeks, follows with Dr. Larson. She was seen by Dr. Larson on Monday and was told she has pneumonia. Patient did have some subjective fevers, her left chest discomfort along the left rib border is aggravated by coughing. She has never seen the web content specialist in the past, she was diagnosed with COPD by Dr. Villalobos, is not on any home oxygen, and is not on any inhalers or nebulized treatments. She is an ex-smoker, quit 2 years ago, but prior to that smoked 1 pack a day for 45 years since the age of 19. Chest x-ray completed in the emergency room showed no acute cardiopulmonary process, there was pulmonary hyperinflation and flattening of the diaphragms with biapical lucency indicative of underlying COPD. EKG showed normal sinus rhythm without acute ST elevation. Lab work was negative for any evidence of leukocytosis, diabetes he was 6.8, hemoglobin was 11.4, d-dimer was found to be elevated at 1.7, serum potassium was 5.2, chloride was 116, carbon dioxide was 17, BUN was 38, creatinine is was 2.47, CK-MB was 3.1, troponin was negative 1, proBNP was 2250 , lactic acid was 0.7. Influenza screen was negative, urinalysis showed 1+ protein, moderate amount of blood, negative nitrites, negative leuks. Patient has been afebrile while inpatient, hemodynamically stable, on 2 L per nasal cannula with O2 sat 95-98%. Pulmonary perfusion imaging showed low probability of pulmonary embolism. Echocardiogram showed preserved left ventricular systolic function with an EF between 55-60%, mild mitral regurg, trace tricuspid regurg, no evidence of pulmonary hypertension, with right ventricular systolic pressure less than 35 mmHg. Venous Doppler was negative for evidence of DVT. Other medical history includes hypertension, hyperlipidemia, CVA, rheumatoid arthritis, chronic kidney disease, stage III, history of degenerative joint disease. Patient was started on IV cefepime, Solu-Medrol, nebulized treatments and was admitted for further management. On 05/26/2017 patient seen in follow-up. She states her breathing is a little easier today, lung sounds are diminished, particularly over posterior right lung. On 2 L per nasal cannula with O2 sat 97%. She's afebrile, vital signs are stable. She continues on oral Ceftin, she is on Pulmicort nebulized treatments, she is on DuoNeb, and her IV Solu-Medrol he has been decreased to 40 mg every 8 hours per attending physician. No wheezes, no rhonchi noted. Her cough is subsiding. Her left chest discomfort along the left rib margin persists. Patient was receiving oral Ultram for that. On today's blood work patient's potassium is acutely elevated at 6.6, renal profile is worsening, with B1 up to 43, and creatinine of 2.56. Nephrology is following. Patient was given sodium bicarb, amp of D50, calcium gluconate, and regular insulin per protocol. The patient is seen again today 05/27/2017 in follow-up on the oncology unit. She is currently resting quite comfortably in bed. She is awake and alert in no acute distress. She is having some ongoing issues with rib pain secondary to multiple myeloma. She denies any worsening shortness of breath at this time. No cough or congestion. She is maintaining good O2 saturations in the high 90s on room air. She's been afebrile. Blood and urine cultures reveal no growth. White count 8.4. Hemoglobin 10.7. Creatinine 2.30. Potassium 5.6. Objective - Vital Signs Vital signs: Vital Signs Temp 98.0 F 05/27/17 07:00 Pulse 86 05/27/17 12:09 Resp 20 05/27/17 07:00 BP 131/58 05/27/17 07:00 Pulse Ox 98 05/27/17 08:26 Intake & Output 05/26/17 05/27/17 05/27/17 18:59 06:59 18:59 Intake Total 300 Balance 300 Intake: Oral 300 Other: Voiding Method Toilet Toilet # Voids 2 3 - Exam GENERAL EXAM: Alert, active, comfortable in no apparent distress. HEAD: Normocephalic. EYES: Normal reaction of pupils, equal size. NOSE: Clear with pink turbinates. THROAT: No erythema or exudates. NECK: No masses, no JVD. CHEST: No chest wall deformity. LUNGS: Equal air entry with no crackles, wheeze, rhonchi or dullness. CVS: S1 and S2 normal with no audible murmur, regular rhythm. ABDOMEN: No hepatosplenomegaly, normal bowel sounds, no guarding or rigidity. SPINE: No scoliosis or deformity SKIN: No rashes CENTRAL NERVOUS SYSTEM: No focal deficits, tone is normal in all 4 extremities. EXTREMITIES: There is no peripheral edema. No clubbing, no cyanosis. Peripheral pulses are intact. - Labs CBC & Chem 7: 05/27/17 07:23 05/27/17 07:23 Labs: Abnormal Lab Results - Last 24 Hours (Table) 05/26/17 05/26/17 05/26/17 Range/Units 13:53 17:31 20:11 RBC (3.80-5.40) m/uL Hgb (11.4-16.0) gm/dL Hct (34.0-46.0) % MCV (80.0-100.0) fL Plt Count (150-450) k/uL Monocytes # (Manual) (0-1.0) k/uL Potassium 5.4 H (3.5-5.1) mmol/L Chloride (98-107) mmol/L Carbon Dioxide (22-30) mmol/L BUN (7-17) mg/dL Creatinine (0.52-1.04) mg/dL Glucose (74-99) mg/dL POC Glucose (mg/dL) 115 H 158 H (75-99) mg/dL 05/27/17 05/27/17 05/27/17 Range/Units 07:23 07:23 11:13 RBC 3.35 L (3.80-5.40) m/uL Hgb 10.7 L (11.4-16.0) gm/dL Hct 33.6 L (34.0-46.0) % MCV 100.2 H (80.0-100.0) fL Plt Count 96 L (150-450) k/uL Monocytes # (Manual) 1.01 H (0-1.0) k/uL Potassium 5.6 H (3.5-5.1) mmol/L Chloride 111 H (98-107) mmol/L Carbon Dioxide 19 L (22-30) mmol/L BUN 44 H (7-17) mg/dL Creatinine 2.30 H (0.52-1.04) mg/dL Glucose 63 L (74-99) mg/dL POC Glucose (mg/dL) 111 H (75-99) mg/dL Microbiology - Last 24 Hours (Table) 05/24/17 13:50 Blood Culture - Preliminary Blood No Growth after 48 hours 05/25/17 09:39 Urine Culture - Final Urine,Voided Assessment and Plan Assessment: Assessment: #1. Acute exacerbation of COPD complicated by purulent tracheobronchitis, chest x-ray shows no evidence of pneumonia #2. Elevated d-dimer, VQ scan showed low probability of pulmonary embolism, venous Dopplers was negative for any evidence of DVTs #3. Multiple myeloma, [place] Light chain type, currently receiving chemotherapy , on oral Revlimid and Dexamethasone. #4. Chronic kidney disease, stage III, secondary to multiple myeloma, and interstitial nephritis, nephrology is following #5. History of rheumatoid arthritis, previously treated with methotrexate, which has been discontinued in view of chronic kidney disease #6. Nicotine dependence, in remission, quit 2 years ago, carries a 45 year 1 pack a day smoking history #7. Thrombocytopenia, secondary to multiple myeloma #8. Hypertension, hyperlipidemia #9. History of CVA #10. Degenerative disc disease, history of lumbar fusion in 2016 Plan: The patient was seen and evaluated by Dr. Hart. She is stable from the pulmonary standpoint. We will continue with her current medications. We'll follow the patient on as-needed basis. I, the cosigning physician, performed a history & physical examination of the patient. Lungs sounds are clear. Maintaining good O2 saturations in the 90s on room air. I discussed the assessment and plan of care with my nurse practitioner, Elida Rasheed. I attest to the above note as dictated by her.
[2017-05-27] MEDS ORDERED: FUROSEMIDE 10 MG/ML 2 ML VIAL IV STA (15:05)
[2017-05-27] MEDS ORDERED: SODIUM POLYSTYRENE SULFONATE 15 GM/60 ML BOTTLE PO STA (15:07)
[2017-05-27] MEDS ORDERED: SODIUM BICARB 8.4% 50 ML SYR (1 MEQ/ML) IV STA (15:07)
[2017-05-27] MEDS ORDERED: ALBUTEROL NEBULIZED 2.5 MG/3 ML INHALATION STA (15:25)
[2017-05-27 17:38] LABS: Glucose,Whole Blood 82 mg/dL (75-99)
--- NOTE | 2017-05-27 17:48 | PN ---
PROGRESS NOTE DATE OF SERVICE: 05/27/2017 PRESENTING COMPLAINT: Tired. INTERVAL HISTORY: Patient treated for multiple myeloma with acute COPD exacerbation. Breathing is getting better. Cough is getting better. Eating better. Slightly jittery. Patient's potassium had been running a bit high. Was put on a renal diet, low-potassium diet. REVIEW OF SYSTEMS: Done for constitutional, cardiovascular, GI, pulmonary; relevant findings as above. CURRENT MEDICATIONS: Reviewed include Ceftin, steroids, DuoNeb. PHYSICAL EXAMINATION: Temperature 97.3 pulse 94, respiratory 18, blood pressure 147/76, pulse ox 96% on room air. GENERAL APPEARANCE: Sitting up, slightly anxious. EYES: Pupils equal, conjunctivae normal. HEENT: External appearance of nose ands normal, oral cavity normal. NECK: JVD not raised. Mass not palpable. Respiratory effort increased. Lungs decreased wheezing. CARDIOVASCULAR: First and second sounds normal, no edema. ABDOMEN: Soft, nontender. Liver and spleen not palpable. PSYCHIATRY: Alert and oriented x3. Mood and affect normal. INVESTIGATIONS: Potassium 6.2, it was initially 5.6, then 6.2, BUN 45, creatinine 2.30. ASSESSMENT: 1. Acute chronic obstructive pulmonary disease exacerbation in an ex-smoker with acute tracheobronchitis, clinically improved. 2. Chronic kidney disease stage IV from hypertensive nephrosclerosis and probably from multiple myeloma. 3. Essential hypertension. 4. Hyperlipidemia. 5. Depression, not otherwise specified. 6. Left chest wall pain from involvement of multiple myeloma. 7. Thrombocytopenia. 8. Metabolic acidosis from renal failure. 9. Severe hypokalemia, renal failure worsening. The patient also being giving a cocktail for hyperkalemia, being followed by Nephrology. The patient will be put on a low-potassium diet. Care was discussed the patient. Will follow. MMODL / IJN: [id number] /
[2017-05-27 20:19] LABS: Glucose,Whole Blood 175 mg/dL (75-99)
[2017-05-27] MEDS: FAMOTIDINE 20 MG TAB PO SCH (20:24)
[2017-05-27] MEDS: LATANOPROST 0.005% OPHTH DROPS 2.5 ML BTL BOTH EYES SCH (20:25)
[2017-05-28 07:04] LABS: Glucose,Whole Blood 88 mg/dL (75-99)
[2017-05-28 07:32] LABS: MCH 32.1 pg (25.0-35.0); MCHC 32.8 g/dL (31.0-37.0); MCV 97.8 fL (80.0-100.0); Mean Platelet Volume 9.1; RBC 2.86 m/uL (3.80-5.40); RDW 13.6 % (11.5-15.5); WBC 7.1 k/uL (3.8-10.6)
[2017-05-28 07:45] LABS: Calcium 8.5 mg/dL (8.4-10.2); Potassium 4.8 mmol/L (3.5-5.1)
[2017-05-28 07:49] LABS: HGB 9.2 gm/dL (11.4-16.0); Platelet Count 96 k/uL (150-450)
[2017-05-28] MEDS: SODIUM BICARBONATE TAB 650 MG TAB PO SCH ×2 (07:52→20:02)
[2017-05-28] MEDS: CEFUROXIME 250 MG TAB PO SCH ×2 (07:52→20:02)
[2017-05-28] MEDS: predniSONE 20 MG TAB PO SCH (07:52)
[2017-05-28] MEDS: INSULIN ASPART 100 UNIT/ML 1 ML 10 ML VIAL SQ SCH ×4 (07:53→20:45)
[2017-05-28] MEDS: ACYCLOVIR 200 MG CAP PO SCH (07:53)
[2017-05-28] MEDS: BRIMONIDINE TARTRATE 0.2% DROPS 5 ML BTL BOTH EYES SCH ×2 (07:54→20:01)
[2017-05-28] MEDS: IPRATROPIUM-ALBUTEROL 3 ML NEB INHALATION SCH ×4 (08:49→19:31)
[2017-05-28] MEDS: FORMOTEROL FUMARATE 20 MCG/2 ML NEBU INHALATION SCH ×2 (08:49→19:31)
[2017-05-28] MEDS: BUDESONIDE 1 MG/2 ML NEBU INHALATION SCH ×2 (08:49→19:31)
[2017-05-28] MEDS: traMADol 50 MG TAB PO PRN (09:14)
[2017-05-28 10:06] LABS: Basophils # (M) 0.07 k/uL (0-0.2); Eosinophils # (M) 0.14 k/uL (0-0.7); Lymphocytes # (M) 2.27 k/uL (1.0-4.8); Monocytes # (M) 1.14 k/uL (0-1.0); Neutrophils # (M) 3.48 k/uL (1.3-7.7); Neutrophils % (M) 49 %; Nucleated Red Blood Cells 0 /100 WBC (0-0); Total Cells Counted 100
[2017-05-28] MEDS: HYDROcodone/APAP 5-325MG 1 EACH TAB PO PRN (10:29)
[2017-05-28 11:06] LABS: Glucose,Whole Blood 121 mg/dL (75-99)
--- NOTE | 2017-05-28 11:22 | P.PN ---
Subjective Patient is seen in follow-up for chronic kidney disease. Patient has chronic kidney disease stage IV with baseline creatinine near 2.5. GFR is near baseline. Patient's currently being treated for pneumonia. States her breathing is significantly improved. Oral intake is good. No vomiting or diarrhea. No active complaints at this time. Potassium level was elevated at 6.2 yesterday which was medically treated and is down to 4.8 this morning. Vital signs are stable. General: The patient appeared well nourished and normally developed. HEENT: Head exam is unremarkable. Neck is without jugular venous distension. LUNGS: Lungs are clear to auscultation and percussion. Breath sounds decreased. HEART: Rate and Rhythm are regular. First and second heart sounds normal. No murmurs, rubs or gallops. ABDOMEN: Abdominal exam reveals normal bowel sounds. Non-tender and non- distended. No evidence of peritonitis. EXTREMITITES: No clubbing, cyanosis, or edema. Objective - Vital Signs Vital signs: Vital Signs Temp 98.6 F 05/28/17 07:00 Pulse 101 H 05/28/17 08:00 Resp 20 05/28/17 08:00 BP 125/68 05/28/17 07:00 Pulse Ox 91 L 05/28/17 07:00 Intake & Output 05/27/17 05/28/17 05/28/17 18:59 06:59 18:59 Other: Voiding Method Toilet Toilet # Voids 2 - Labs CBC & Chem 7: 05/28/17 07:03 05/28/17 07:03 Labs: Abnormal Lab Results - Last 24 Hours (Table) 05/27/17 05/27/17 05/27/17 Range/Units 07:23 14:05 20:17 RBC (3.80-5.40) m/uL Hgb (11.4-16.0) gm/dL Hct (34.0-46.0) % Plt Count (150-450) k/uL Monocytes # (Manual) 1.01 H (0-1.0) k/uL Sodium (137-145) mmol/L Potassium 6.2 H* (3.5-5.1) mmol/L Carbon Dioxide (22-30) mmol/L BUN (7-17) mg/dL Creatinine (0.52-1.04) mg/dL POC Glucose (mg/dL) 175 H (75-99) mg/dL 05/28/17 05/28/17 05/28/17 Range/Units 07:03 07:03 11:04 RBC 2.86 L (3.80-5.40) m/uL Hgb 9.2 L D (11.4-16.0) gm/dL Hct 28.0 L (34.0-46.0) % Plt Count 96 L (150-450) k/uL Monocytes # (Manual) 1.14 H (0-1.0) k/uL Sodium 146 H (137-145) mmol/L Potassium (3.5-5.1) mmol/L Carbon Dioxide 31 H (22-30) mmol/L BUN 49 H (7-17) mg/dL Creatinine 2.63 H (0.52-1.04) mg/dL POC Glucose (mg/dL) 121 H (75-99) mg/dL Microbiology - Last 24 Hours (Table) 05/24/17 13:50 Blood Culture - Preliminary Blood No Growth after 72 hours Assessment and Plan Plan: Assessment: #1. Chronic kidney disease stage IV with baseline creatinine near 2.5 secondary to chronic NSAID use and multiple myeloma. GFR near baseline. #2. [place] light chain multiple myeloma maintained on chemotherapy by oncology. #3. History of hypercalcemia. Currently in the normal range. #4. Hyperkalemia secondary to chronic kidney disease and metabolic acidosis. Improved. #5. Metabolic acidosis secondary to chronic kidney disease. Improved. Plan: I will decrease sodium bicarbonate 650 mg twice daily. Add torsemide 10 mg once daily. Maintain low potassium diet. Avoid nephrotoxic agents and hypotensive episodes. Anticipate discharge soon. She will need to get basic metabolic panel checked within 2-3 days of discharge and follow-up as an outpatient in the next 1-2 weeks.
[2017-05-28] MEDS: SERTRALINE 100 MG TAB PO SCH (11:28)
[2017-05-28] MEDS: CLOPIDOGREL 75 MG TAB PO SCH (11:28)
[2017-05-28] MEDS: TORSEMIDE 20 MG TAB PO SCH (11:29)
[2017-05-28 17:19] LABS: Glucose,Whole Blood 164 mg/dL (75-99)
[2017-05-28] MEDS: LATANOPROST 0.005% OPHTH DROPS 2.5 ML BTL BOTH EYES SCH (20:01)
[2017-05-28] MEDS: FAMOTIDINE 20 MG TAB PO SCH (20:02)
[2017-05-28 20:46] LABS: Glucose,Whole Blood 160 mg/dL (75-99)
[2017-05-28 21:51] VITALS: RESP 22
--- NOTE | 2017-05-28 23:25 | PN ---
PROGRESS NOTE DATE OF SERVICE: 05/28/2017 PRESENTING COMPLAINT: Tired. INTERVAL HISTORY: This is a patient being treated for multiple myeloma, presented with acute COPD exacerbation. Continues to do better. The patient's potassium is doing well. The patient is on a renal diet. REVIEW OF SYSTEMS: Done for constitutional, cardiovascular, GI, pulmonary; relevant findings as above. CURRENT MEDICATIONS: Reviewed. PHYSICAL EXAMINATION: Temperature 98.3 pulse 100, respiratory 20, blood pressure 120/60, pulse ox 95%. GENERAL: Sitting up, awake. EYES: Pupils equal. Conjunctivae are normal. HEENT: External appearance of nose and ears normal. Oral cavity normal. NECK: JVD not raised. Mass not palpable. Respiratory effort increased. LUNGS: Decreased breath sounds, less wheezing. CARDIOVASCULAR: First and second heart sounds, no edema. ABDOMEN: Soft, nontender. Liver and spleen not palpable. PSYCHIATRY: Alert and oriented x3. Mood is slightly anxious-appearing. INVESTIGATIONS: Hemoglobin 9.2, potassium 4.8, BUN 49, creatinine 2.63. Accu-Cheks noted. ASSESSMENT: 1. Acute chronic obstructive pulmonary disease exacerbation in an ex-smoker with acute tracheobronchitis, improved. 2. Chronic kidney disease stage 4 from hypertensive nephrosclerosis, probably from underlying multiple myeloma. 3. Essential hypertension. 4. Hyperlipidemia. 5. Depression, not otherwise specified. 6. Left chest wall pain, likely from the ribs involving the multiple myeloma. 7. Thrombocytopenia. 8. Metabolic acidosis from renal failure. 9. Severe hyperkalemia from renal failure. PLAN: Overall the patient doing better. The patient should be able to be discharged tomorrow. Will arrange for a nebulizer at home. MMODL / IJN: [id number] /
[2017-05-29 07:18] LABS: Glucose,Whole Blood 85 mg/dL (75-99)
[2017-05-29] MEDS: HYDROcodone/APAP 5-325MG 1 EACH TAB PO PRN ×2 (07:24→11:47)
[2017-05-29 08:03] LABS: Basophils % (A) 0 %; Eosinophils # (A) 0.2 k/uL (0-0.7); Eosinophils % (A) 3 %; HCT 30.2 % (34.0-46.0); HGB 9.3 gm/dL (11.4-16.0); Lymphocytes # (A) 2.6 k/uL (1.0-4.8); Lymphocytes % (A) 30 %; MCH 30.5 pg (25.0-35.0); MCHC 30.8 g/dL (31.0-37.0); MCV 99.1 fL (80.0-100.0); Monocytes # (A) 0.3 k/uL (0-1.0); Monocytes % (A) 3 %; Neutrophils # (A) 5.1 k/uL (1.3-7.7); Neutrophils % (A) 60 %; Platelet Count 125 k/uL (150-450); RBC 3.05 m/uL (3.80-5.40); RDW 13.8 % (11.5-15.5); WBC 8.5 k/uL (3.8-10.6)
[2017-05-29 08:07] LABS: Potassium 4.4 mmol/L (3.5-5.1)
[2017-05-29 08:13] VITALS: BP 121/63; TEMP 98
[2017-05-29] MEDS: INSULIN ASPART 100 UNIT/ML 1 ML 10 ML VIAL SQ SCH (08:23)
[2017-05-29] MEDS: TORSEMIDE 20 MG TAB PO SCH (08:26)
[2017-05-29] MEDS: BRIMONIDINE TARTRATE 0.2% DROPS 5 ML BTL BOTH EYES SCH (08:26)
[2017-05-29] MEDS: CEFUROXIME 250 MG TAB PO SCH (08:27)
[2017-05-29] MEDS: predniSONE 20 MG TAB PO SCH (08:27)
[2017-05-29] MEDS: SODIUM BICARBONATE TAB 650 MG TAB PO SCH (08:27)
[2017-05-29] MEDS: ACYCLOVIR 200 MG CAP PO SCH (08:27)
[2017-05-29] MEDS: BUDESONIDE 1 MG/2 ML NEBU INHALATION SCH (08:51)
[2017-05-29] MEDS: FORMOTEROL FUMARATE 20 MCG/2 ML NEBU INHALATION SCH (08:51)
[2017-05-29] MEDS: IPRATROPIUM-ALBUTEROL 3 ML NEB INHALATION SCH ×2 (08:51→11:54)
[2017-05-29 09:13] VITALS: PULSE 90
[2017-05-29] MEDS ORDERED: TORSEMIDE 20 MG TAB PO SCH (09:39)
--- NOTE | 2017-05-29 10:03 | P.PN ---
Subjective Patient is seen in follow-up for chronic kidney disease. Patient has chronic kidney disease stage IV with baseline creatinine near 2.5-2.6. GFR is near baseline. Patient's currently being treated for pneumonia. States her breathing is significantly improved. Oral intake is good. No vomiting or diarrhea. No active complaints at this time. Potassium level now in normal range. Vital signs are stable. General: The patient appeared well nourished and normally developed. HEENT: Head exam is unremarkable. Neck is without jugular venous distension. LUNGS: Lungs are clear to auscultation and percussion. Breath sounds decreased. HEART: Rate and Rhythm are regular. First and second heart sounds normal. No murmurs, rubs or gallops. ABDOMEN: Abdominal exam reveals normal bowel sounds. Non-tender and non- distended. No evidence of peritonitis. EXTREMITITES: No clubbing, cyanosis, or edema. Objective - Vital Signs Vital signs: Vital Signs Temp 98 F 05/29/17 07:00 Pulse 90 05/29/17 09:12 Resp 22 05/29/17 07:00 BP 121/63 05/29/17 07:00 Pulse Ox 93 L 05/29/17 07:00 Intake & Output 05/28/17 05/29/17 05/29/17 18:59 06:59 18:59 Intake Total 360 100 Balance 360 100 Intake: Oral 360 100 Other: Voiding Method Toilet Toilet # Voids 2 1 - Labs CBC & Chem 7: 05/29/17 07:17 05/29/17 07:17 Labs: Abnormal Lab Results - Last 24 Hours (Table) 05/28/17 05/28/17 05/28/17 Range/Units 07:03 11:04 17:17 RBC (3.80-5.40) m/uL Hgb (11.4-16.0) gm/dL Hct (34.0-46.0) % MCHC (31.0-37.0) g/dL Plt Count (150-450) k/uL Monocytes # (Manual) 1.14 H (0-1.0) k/uL BUN (7-17) mg/dL Creatinine (0.52-1.04) mg/dL POC Glucose (mg/dL) 121 H 164 H (75-99) mg/dL 05/28/17 05/29/1718 Range/Units 20:34 07:17 07:17 RBC 3.05 L (3.80-5.40) m/uL Hgb 9.3 L (11.4-16.0) gm/dL Hct 30.2 L (34.0-46.0) % MCHC 30.8 L (31.0-37.0) g/dL Plt Count 125 L (150-450) k/uL Monocytes # (Manual) (0-1.0) k/uL BUN 50 H (7-17) mg/dL Creatinine 2.78 H (0.52-1.04) mg/dL POC Glucose (mg/dL) 160 H (75-99) mg/dL Microbiology - Last 24 Hours (Table) 05/24/17 13:50 Blood Culture - Preliminary Blood No Growth after 96 hours Assessment and Plan Plan: Assessment: #1. Chronic kidney disease stage IV with baseline creatinine near 2.5 secondary to chronic NSAID use and multiple myeloma. GFR near baseline. #2. 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 #3. History of hypercalcemia. Currently in the normal range. #4. Hyperkalemia secondary to chronic kidney disease and metabolic acidosis. Improved. #5. Metabolic acidosis secondary to chronic kidney disease. Improved. Plan: Continue sodium bicarbonate 650 mg twice daily. Decrease torsemide to 5 mg daily. Maintain low potassium diet. Avoid nephrotoxic agents and hypotensive episodes. Anticipate discharge soon. She will need to get basic metabolic panel checked within 2-3 days of discharge and follow-up as an outpatient in the next 1-2 weeks.
[2017-05-29] MEDS: CLOPIDOGREL 75 MG TAB PO SCH (11:48)
[2017-05-29] MEDS: SERTRALINE 100 MG TAB PO SCH (11:48)
--- NOTE | 2017-05-29 12:51 | P.PN ---
Subjective Progress Note Date: 05/29/17 Principal diagnosis: ELIEZER, pneumonia Pt seen today in follow up, she is breathing much better, the breathing treatments allow her to expectorate, denies fever, sore throat, she is tolerating oral intake, no nausea, diarrhea, she is ambulatory independently. Objective - Vital Signs Vital signs: Vital Signs Temp 98 F 05/29/17 07:00 Pulse 90 05/29/17 09:12 Resp 22 05/29/17 07:00 BP 121/63 05/29/17 07:00 Pulse Ox 93 L 05/29/17 07:00 Intake & Output 05/28/17 05/29/17 05/29/17 18:59 06:59 18:59 Intake Total 360 100 Balance 360 100 Intake: Oral 360 100 Other: Voiding Method Toilet Toilet # Voids 2 1 - Constitutional General appearance: Present: cooperative, no acute distress, thin - EENT Eyes: Present: anicteric sclerae - Respiratory Respiratory: bilateral: diminished (expiratory breath sounds are diminidhed but harsh) - Cardiovascular Heart sounds: normal: S1, S2 - Peripheral edema foot Peripheral Edema: bilateral: None - Gastrointestinal General gastrointestinal: Present: normal bowel sounds, soft - Integumentary Integumentary: Present: normal - Neurologic Neurologic: Present: CNII-XII intact - Musculoskeletal Musculoskeletal: Present: strength equal bilaterally - Psychiatric Psychiatric: Present: A&O x's 3, appropriate affect, intact judgment & insight - Labs CBC & Chem 7: 05/29/17 07:17 05/29/17 07:17 Labs: Abnormal Lab Results - Last 24 Hours (Table) 05/28/17 05/28/17 05/29/17 Range/Units 17:17 20:34 07:17 RBC 3.05 L (3.80-5.40) m/uL Hgb 9.3 L (11.4-16.0) gm/dL Hct 30.2 L (34.0-46.0) % MCHC 30.8 L (31.0-37.0) g/dL Plt Count 125 L (150-450) k/uL BUN (7-17) mg/dL Creatinine (0.52-1.04) mg/dL POC Glucose (mg/dL) 164 H 160 H (75-99) mg/dL 05/29/17 Range/Units 07:17 RBC (3.80-5.40) m/uL Hgb (11.4-16.0) gm/dL Hct (34.0-46.0) % MCHC (31.0-37.0) g/dL Plt Count (150-450) k/uL BUN 50 H (7-17) mg/dL Creatinine 2.78 H (0.52-1.04) mg/dL POC Glucose (mg/dL) (75-99) mg/dL Microbiology - Last 24 Hours (Table) 05/24/17 13:50 Blood Culture - Preliminary Blood No Growth after 96 hours Assessment and Plan (1) Bicytopenia Narrative/Plan: Due to myeloma and recent treatment, no intervention needed today. She has f/u appt in office in 2 days, CBC,CMP will be followed Current Visit: Yes Status: Acute Priority: Medium Code(s): D75.89 - OTHER SPECIFIED DISEASES OF BLOOD AND BLOOD-FORMING ORGANS SNOMED Code(s): 840616679 (2) Myeloma kidney disease Narrative/Plan: Pt kidney failure is in part r/t myeloma, her BUN/Cr are baseline for her when looking back in her office chart to Mar 2017. Current Visit: Yes Status: Chronic Priority: Medium Code(s): C90.00 - MULTIPLE MYELOMA NOT HAVING ACHIEVED REMISSION; N28.89 - OTHER SPECIFIED DISORDERS OF KIDNEY AND URETER SNOMED Code(s): 18619846 (3) [place] light chain myeloma Narrative/Plan: Pt completed all the the last half of the 2nd week of her 1st cycle. As long as pt is recovered she will start her treatment on schedule next week Current Visit: Yes Status: Acute Priority: High Code(s): C90.00 - MULTIPLE MYELOMA NOT HAVING ACHIEVED REMISSION SNOMED Code(s): 703419808 Plan: Pt will complete treatment for pneumonia per IM instructions
--- NOTE | 2017-05-30 05:53 | DS ---
DISCHARGE SUMMARY DATE OF ADMISSION: 05/24/2017 DATE OF DISCHARGE: 05/29/2017 FINAL DIAGNOSES: 1. Acute chronic obstructive pulmonary disease exacerbation in an ex-smoker with acute tracheobronchitis. 2. Chronic kidney disease stage 4 from hypertensive nephrosclerosis. 3. Essential hypertension with kidney disease. 4. Hyperlipidemia. 5. Depression, not otherwise specified. 6. Left chest wall pain, likely from ribs involving from multiple myeloma. 7. Thrombocytopenia. 8. Metabolic acidosis from renal failure. 9. Severe hyperkalemia from renal failure. 10.[place] light chain myeloma. 11.Chronic hypoxic respiratory failure from underlying chronic obstructive pulmonary disease. HOSPITAL COURSE: This is a patient with [place] light chain myeloma getting chemotherapy presented with acute COPD exacerbation with tracheobronchitis. Doing better by the time of discharge. Patient has got underlying chronic kidney disease. Creatinine by the time of discharge was 2.78. Also was hyperkalemic, was put on a low-potassium diet. Doing much better time at time of discharge. ON EXAM: LUNGS: Decreased breath sounds. PSYCH: AO x3. CONSULTATION: Dr. Gutierrez from Nephrology, Dr. Larson from Oncology and Dr. Hart from Pulmonary. DISCHARGE MEDICATIONS: 1. Plavix 75 mg a day. 2. Xalatan 0.005% 1 drop to both eyes q.h.s. 3. Zoloft 200 mg with lunch. 4. Al[place] 0.2% 1 drop to both eyes b.i.d. 5. Acyclovir 400 mg p.o. daily. 6. REVLIMID 15 mg p.o. as directed. 7. Compazine 10 mg q.6 p.r.n. 8. Zantac 150 mg q.h.s. 9. DuoNeb q.i.d. 10.Sodium bicarbonate 650 mg p.o. b.i.d. 11.Demadex 5 mg p.o. daily. 12.Prednisone taper. Follow up with Dr. Villalobos on 06/01/2017; Radha Louis on 05/31/2017; Dr. Hart on 06/02/2017; Dr. Gutierrez on 06/09/2017. BMP in 1 week. Home oxygen to continue. Additionally discharge medication include because of hyperkalemia. Discussion and discharge planning more than 35 minutes. MMODL / IJN: [id number] /
== END 2017-05-29 15:20 | disposition home or self-care (01) | DRG 191 ==
LOC: EC 13:25 → 5ONC 16:20
PROVIDERS: ADMIT Hospitalist; ATTEND Hospitalist
DX: J44.0 Chronic obstructive pulmonary disease with (acute) lower respiratory infection (principal); J96.11 Chronic respiratory failure with hypoxia; N17.9 Acute kidney failure, unspecified; C90.00 Multiple myeloma not having achieved remission; D69.6 Thrombocytopenia, unspecified; E87.2 Acidosis; E83.52 Hypercalcemia; N12 Tubulo-interstitial nephritis, not specified as acute or chronic; N18.4 Chronic kidney disease, stage 4 (severe); J44.1 Chronic obstructive pulmonary disease with (acute) exacerbation; J20.9 Acute bronchitis, unspecified; D64.9 Anemia, unspecified; E78.5 Hyperlipidemia, unspecified; E87.5 Hyperkalemia; F32.9 Major depressive disorder, single episode, unspecified; G89.3 Neoplasm related pain (acute) (chronic); I12.9 Hypertensive chronic kidney disease with stage 1 through stage 4 chronic kidney disease, or unspecified chronic kidney disease; I34.0 Nonrheumatic mitral (valve) insufficiency; M06.9 Rheumatoid arthritis, unspecified; R79.1 Abnormal coagulation profile; Z79.1 Long term (current) use of non-steroidal anti-inflammatories (NSAID); Z79.52 Long term (current) use of systemic steroids; Z79.899 Other long term (current) drug therapy; Z80.1 Family history of malignant neoplasm of trachea, bronchus and lung; Z86.73 Personal history of transient ischemic attack (TIA), and cerebral infarction without residual deficits; Z87.891 Personal history of nicotine dependence; Z95.1 Presence of aortocoronary bypass graft; Z98.1 Arthrodesis status; Z98.82 Breast implant status
CPT/HCPCS: 36415; 71046; 78582; 80048; 80053; 81001; 82550; 82553; 82784; 83036; 83605; 83880; 84132; 84484; 85025; 85379; 85610; 85730; 87040; 87086; 87502; 93005; 93306; 93970; 94640; 94645; 94760; 96374; 96375; 99285

== ENCOUNTER 2017-07-05 12:42 | Inpatient (IN) | payer MEDICARE ==
[2017-07-05] MEDS ORDERED: ONDANSETRON 4 MG/2 ML VIAL IVP STA (13:01)
[2017-07-05] MEDS ORDERED: MORPHINE SULFATE 4 MG/ML SYRINGE IVP STA (13:01)
[2017-07-05] MEDS ORDERED: ALBUTEROL NEBULIZED 2.5 MG/3 ML INHALATION STA ×2 (13:01→16:25)
[2017-07-05 13:08] LABS: Basophils # (A) 0.1 k/uL (0-0.2); Basophils % (A) 1 %; Eosinophils # (A) 0.2 k/uL (0-0.7); Eosinophils % (A) 2 %; HCT 26.5 % (34.0-46.0); HGB 8.5 gm/dL (11.4-16.0); Lymphocytes # (A) 1.8 k/uL (1.0-4.8); Lymphocytes % (A) 25 %; MCH 30.1 pg (25.0-35.0); MCHC 32.2 g/dL (31.0-37.0); Mean Platelet Volume 8.3; Monocytes # (A) 0.9 k/uL (0-1.0); Monocytes % (A) 13 %; Neutrophils # (A) 4.1 k/uL (1.3-7.7); Neutrophils % (A) 57 %; RBC 2.83 m/uL (3.80-5.40); RDW 13.9 % (11.5-15.5); WBC 7.2 k/uL (3.8-10.6)
--- NOTE | 2017-07-05 13:13 | ED ---
SOB HPI - General Chief Complaint: Shortness of Breath Stated Complaint: Difficulty Breathing Time Seen by Provider: 07/05/17 12:48 Source: patient, EMS, RN notes reviewed Mode of arrival: EMS Limitations: no limitations - History of Present Illness Initial Comments: This a 66-year-old female presents emergency department via EMS chief complaint shortness of breath. She's had increased shortness breath over the last couple days. Patient does have COPD, multiple myeloma. Patient currently is on chemotherapy. Patient reports no fevers or chills. She states her cough is mildly productive. Patient states she has severe left rib pain is worse with coughing and bending forward. Denies any back pain, abdominal pain, nausea vomiting diarrhea constipation. She does have mild swelling lower extremities states that worsened usual. She denies any orthopnea. - Related Data Home Medications Medication Instructions Recorded Confirmed Clopidogrel [Plavix] 75 mg PO AC-LUNCH 01/28/17 07/05/17 Latanoprost Ophth [Xalatan 0.005%] 1 drops BOTH EYES HS 01/28/17 07/05/17 Sertraline [Zoloft] 200 mg PO AC-LUNCH 01/28/17 07/05/17 Brimonidine Tartrate [Alphagan P 1 drops BOTH EYES BID 04/05/17 07/05/17 0.2% Ophth Soln] Acyclovir 400 mg PO DAILY 05/24/17 07/05/17 Lenalidomide [Revlimid] 15 mg PO DIRECTED 05/24/17 07/05/17 Prochlorperazine [Compazine] 10 mg PO Q6H PRN 05/24/17 07/05/17 Ranitidine HCl [Zantac] 150 mg PO HS 05/24/17 07/05/17 Dexamethasone [Hexadrol] 20 mg PO DIRECTED 07/05/17 07/05/17 HYDROcodone/APAP 7.5-325MG [[place] 1 tab PO TID PRN 07/05/17 07/05/17 7.5-325] Previous Rx's Medication Instructions Recorded Ipratropium-Albuterol Nebulize 3 ml INHALATION RT-QID #90 05/29/17 [Duoneb 0.5 mg-3 mg/3 ml Soln] ampul.neb Sodium Bicarbonate Tab 650 mg PO BID #60 tab 05/29/17 Torsemide [Demadex] 5 mg PO DAILY #30 tablet 05/29/17 Allergies Allergy/AdvReac Type Severity Reaction Status Date / Time ciprofloxacin HCl Allergy Lip Verified 07/05/17 13:18 [From Cipro] swelling, itching codeine Allergy Unknown Verified 07/05/17 13:18 Sulfa (Sulfonamide Allergy Unknown Verified 07/05/17 13:18 Antibiotics) Review of Systems ROS Statement: Those systems with pertinent positive or pertinent negative responses have been documented in the HPI. ROS Other: All systems not noted in ROS Statement are negative. Past Medical History Past Medical History: CVA/TIA, Hyperlipidemia, Hypertension, Rheumatoid Arthritis (RA) Additional Past Medical History / Comment(s): [place], multiple mylemoa History of Any Multi-Drug Resistant Organisms: None Reported Past Surgical History: Back Surgery Additional Past Surgical History / Comment(s): LUMBAR FUSION 1.5 YRS AGO, BREAT IMPLANTS IN THE 70'S REMOVED MID 90'S Past Anesthesia/Blood Transfusion Reactions: No Reported Reaction Past Psychological History: No Psychological Hx Reported Smoking Status: Former smoker Past Alcohol Use History: None Reported Past Drug Use History: None Reported - Past Family History Father Additional Family Medical History / Comment(s): FATHER 99 YRS OLD STILL LIVING HAS PROSTATE ISSUES Mother Family Medical History: Cancer Additional Family Medical History / Comment(s): LUNG CANCER General Exam General appearance: alert, in no apparent distress Head exam: Present: atraumatic, normocephalic, normal inspection Eye exam: Present: normal appearance, PERRL, EOMI. Absent: scleral icterus, conjunctival injection, periorbital swelling ENT exam: Present: normal exam, mucous membranes moist Neck exam: Present: normal inspection, full ROM. Absent: tenderness, meningismus, lymphadenopathy Respiratory exam: Present: wheezes, chest wall tenderness (Tenderness to the left lower ribs). Absent: normal lung sounds bilaterally, respiratory distress , rales, rhonchi, stridor Cardiovascular Exam: Present: regular rate, normal rhythm, normal heart sounds. Absent: systolic murmur, diastolic murmur, rubs, gallop, clicks GI/Abdominal exam: Present: soft, normal bowel sounds. Absent: distended, tenderness, guarding, rebound, rigid Skin exam: Present: warm, dry, intact, normal color. Absent: rash Course Vital Signs 0507/05/17 07/05/17 12:45 13:23 13:31 Temperature 97.3 F L Pulse Rate 83 76 78 Respiratory 21 Rate Blood Pressure 137/61 O2 Sat by Pulse 97 Oximetry 07/05/17 07/05/17 07/05/17 14:30 14:34 16:27 Temperature 99.9 F H Pulse Rate 87 83 Respiratory 19 16 16 Rate Blood Pressure 124/58 115/56 O2 Sat by Pulse 98 93 L Oximetry Medical Decision Making - Medical Decision Making 66-year-old female presented for shortness of breath. Patient had chest x-ray, lab work. Patient does have some noted rib fractures though they are old compared to prior. Patient had an. Pulse ox here was approximately 89-90. Patient had increased dyspnea. Patient will be admitted at this time for IV steroids, repeat DuoNeb treatments. - Lab Data Result diagrams: 07/05/17 12:54 07/05/17 12:54 Lab Results 07/05/17 07/05/17 07/05/17 Range/Units 12:54 12:54 12:54 WBC 7.2 (3.8-10.6) k/uL RBC 2.83 L (3.80-5.40) m/uL Hgb 8.5 L (11.4-16.0) gm/dL Hct 26.5 L (34.0-46.0) % MCV 93.6 D (80.0-100.0) fL MCH 30.1 (25.0-35.0) pg MCHC 32.2 (31.0-37.0) g/dL RDW 13.9 (11.5-15.5) % Plt Count 293 D (150-450) k/uL Neutrophils % 57 % Lymphocytes % 25 % Monocytes % 13 % Eosinophils % 2 % Basophils % 1 % Neutrophils # 4.1 (1.3-7.7) k/uL Lymphocytes # 1.8 (1.0-4.8) k/uL Monocytes # 0.9 (0-1.0) k/uL Eosinophils # 0.2 (0-0.7) k/uL Basophils # 0.1 (0-0.2) k/uL PT (9.0-12.0) sec INR (<1.2) APTT (22.0-30.0) sec Sodium 147 H (137-145) mmol/L Potassium 4.8 (3.5-5.1) mmol/L Chloride 115 H (98-107) mmol/L Carbon Dioxide 17 L (22-30) mmol/L Anion Gap 15 mmol/L BUN 47 H (7-17) mg/dL Creatinine 2.80 H (0.52-1.04) mg/dL Est GFR (CKD-EPI)AfAm 20 (>60 ml/min/1.73 sqM) Est GFR (CKD-EPI)NonAf 17 (>60 ml/min/1.73 sqM) Glucose 76 (74-99) mg/dL Calcium 7.2 L (8.4-10.2) mg/dL Magnesium 1.9 (1.6-2.3) mg/dL Total Bilirubin 0.1 L (0.2-1.3) mg/dL AST 17 (14-36) U/L ALT 29 (9-52) U/L Alkaline Phosphatase 86 (38-126) U/L Total Creatine Kinase 66 (30-135) U/L CK-MB (CK-2) 1.5 (0.0-2.4) ng/mL CK-MB (CK-2) Rel Index 2.3 Troponin I <0.012 (0.000-0.034) ng/mL NT-Pro-B Natriuret Pep pg/mL Total Protein 6.0 L (6.3-8.2) g/dL Albumin 3.7 (3.5-5.0) g/dL 07/05/17 07/05/17 Range/Units 12:54 12:54 WBC (3.8-10.6) k/uL RBC (3.80-5.40) m/uL Hgb (11.4-16.0) gm/dL Hct (34.0-46.0) % MCV (80.0-100.0) fL MCH (25.0-35.0) pg MCHC (31.0-37.0) g/dL RDW (11.5-15.5) % Plt Count (150-450) k/uL Neutrophils % % Lymphocytes % % Monocytes % % Eosinophils % % Basophils % % Neutrophils # (1.3-7.7) k/uL Lymphocytes # (1.0-4.8) k/uL Monocytes # (0-1.0) k/uL Eosinophils # (0-0.7) k/uL Basophils # (0-0.2) k/uL PT 10.2 (9.0-12.0) sec INR 1.0 (<1.2) APTT 23.5 (22.0-30.0) sec Sodium (137-145) mmol/L Potassium (3.5-5.1) mmol/L Chloride (98-107) mmol/L Carbon Dioxide (22-30) mmol/L Anion Gap mmol/L BUN (7-17) mg/dL Creatinine (0.52-1.04) mg/dL Est GFR (CKD-EPI)AfAm (>60 ml/min/1.73 sqM) Est GFR (CKD-EPI)NonAf (>60 ml/min/1.73 sqM) Glucose (74-99) mg/dL Calcium (8.4-10.2) mg/dL Magnesium (1.6-2.3) mg/dL Total Bilirubin (0.2-1.3) mg/dL AST (14-36) U/L ALT (9-52) U/L Alkaline Phosphatase (38-126) U/L Total Creatine Kinase (30-135) U/L CK-MB (CK-2) (0.0-2.4) ng/mL CK-MB (CK-2) Rel Index Troponin I (0.000-0.034) ng/mL NT-Pro-B Natriuret Pep 2310 pg/mL Total Protein (6.3-8.2) g/dL Albumin (3.5-5.0) g/dL Disposition Clinical Impression: Acute exacerbation of chronic obstructive airways disease, Chronic kidney disease Disposition: ADMITTED IP TO THIS HOSP Condition: Stable Referrals: Kirby Villalobos DO [Primary Care Provider] - 1-2 days
[2017-07-05 13:14] LABS: MCV 93.6 fL (80.0-100.0); Partial Thromboplastin Time 23.5 sec (22.0-30.0); Platelet Count 293 k/uL (150-450); Prothrombin Time 10.2 sec (9.0-12.0)
[2017-07-05 13:17] LABS: Albumin 3.7 g/dL (3.5-5.0); Calcium 7.2 mg/dL (8.4-10.2); Magnesium 1.9 mg/dL (1.6-2.3); Potassium 4.8 mmol/L (3.5-5.1); Total Bilirubin 0.1 mg/dL (0.2-1.3)
--- NOTE | 2017-07-05 13:20 | XR ---
EXAMINATION TYPE: XR chest 2V DATE OF EXAM: 07/05/2017 COMPARISON: 05/24/2017 TECHNIQUE: PA and lateral views submitted. HISTORY: Difficulty breathing FINDINGS: The lungs are clear and there is no pneumothorax, pleural effusion, or focal pneumonia. Hyperinflation suggests underlying COPD. Multilevel degenerative disc disease noted. There are multiple rib deformity noted involving the right rib cage correlate for fractures. IMPRESSION: 1. No acute process. Correlate for COPD. 2. Multiple rib deformities along the right lateral rib cage. Correlate for right-sided lateral rib f ractures.
[2017-07-05 13:24] LABS: Creatine Kinase 66 U/L (30-135)
[2017-07-05 13:37] LABS: Creatine Kinase MB 1.5 ng/mL (0.0-2.4); Troponin I <0.012 ng/mL (0.000-0.034)
[2017-07-05] MEDS ORDERED: methylPREDNISolone SOD SUCCI 125 MG/2 ML VIAL IV STA (16:25)
[2017-07-05] MEDS ORDERED: IPRATROPIUM-ALBUTEROL 3 ML NEB INHALATION PRN (16:39)
[2017-07-05 19:55] VITALS: BMI 18.5
[2017-07-06] MEDS ORDERED: PROCHLORPERAZINE 10 MG TAB PO PRN (00:21)
--- NOTE | 2017-07-06 00:28 | P.HPIM ---
History of Present Illness H&P Date: 07/05/17 Chief Complaint: Shortness of breath Patient is a 66-year-old female with a known history of hypertension, hyperlipidemia, rheumatoid arthritis and recently diagnosed multiple myeloma last chemotherapy started 5 weeks ago came to ER with complaints of worsening shortness of breath and cough with grayish sputum production. Shortness of breath is worsening for the past 2-3 days. Patient states she has severe left rib pain is worse with coughing and bending forward. Denies any back pain, abdominal pain, nausea vomiting diarrhea constipation. She does have mild swelling lower extremities states that worsened usual. She denies any orthopnea. Patient is not on home oxygen . No complaints of fever or chills. No nausea vomiting or abdominal pain. No complaints of chest pain. Chest x-ray showed no acute process multiple deformities along the right lateral rib cage correlate for drip fractures EKG showed normal sinus rhythm. Review of Systems Constitutional: Patient denies any fever or chills . No generalized weakness or weight loss. Abdomen: Patient denied nausea vomiting and diarrhea and abdominal pain. Cardiovascular: Patient denies any chest pain or short of breath no palpitations. Respiratory: Patient does have cough is from production and shortness of breath Neurologic: Patient denied any numbness or tingling headache. Musculoskeletal: Patient denies any complaints of joint swelling or deformity. Skin: Negative Psychiatric: Negative Endocrine: No heat or cold intolerance. No recent weight gain. Genitourinary: No dysuria or hematuria. All other 14 point ROS negative except the above Past Medical History Past Medical History: CVA/TIA, Hyperlipidemia, Hypertension, Rheumatoid Arthritis (RA) Additional Past Medical History / Comment(s): Bone CA, multiple mylemoa History of Any Multi-Drug Resistant Organisms: None Reported Past Surgical History: Back Surgery Additional Past Surgical History / Comment(s): LUMBAR FUSION 1.5 YRS AGO, BREAST IMPLANTS IN THE 70'S REMOVED MID 90'S Past Anesthesia/Blood Transfusion Reactions: No Reported Reaction Past Psychological History: No Psychological Hx Reported Smoking Status: Former smoker Past Alcohol Use History: None Reported Past Drug Use History: None Reported - Past Family History Father Additional Family Medical History / Comment(s): FATHER 99 YRS OLD STILL LIVING HAS PROSTATE ISSUES Mother Family Medical History: Cancer Additional Family Medical History / Comment(s): LUNG CANCER Medications and Allergies Home Medications Medication Instructions Recorded Confirmed Type Clopidogrel [Plavix] 75 mg PO AC-LUNCH 01/28/17 07/05/17 History Latanoprost Ophth [Xalatan 0.005%] 1 drops BOTH EYES HS 01/28/17 07/05/17 History Sertraline [Zoloft] 200 mg PO AC-LUNCH 01/28/17 07/05/17 History Brimonidine Tartrate [Alphagan P 1 drops BOTH EYES BID 04/05/17 07/05/17 History 0.2% Ophth Soln] Acyclovir 400 mg PO DAILY 05/24/17 07/05/17 History Lenalidomide [Revlimid] 15 mg PO DIRECTED 05/24/17 07/05/17 History Prochlorperazine [Compazine] 10 mg PO Q6H PRN 05/24/17 07/05/17 History Ranitidine HCl [Zantac] 150 mg PO HS 05/24/17 07/05/17 History Ipratropium-Albuterol Nebulize 3 ml INHALATION RT-QID #90 05/29/17 07/05/17 Rx [Duoneb 0.5 mg-3 mg/3 ml Soln] ampul.neb Sodium Bicarbonate Tab 650 mg PO BID #60 tab 05/29/17 07/05/17 Rx Torsemide [Demadex] 5 mg PO DAILY #30 tablet 05/29/17 07/05/17 Rx Dexamethasone [Hexadrol] 20 mg PO DIRECTED 07/05/17 07/05/17 History HYDROcodone/APAP 7.5-325MG [[place] 1 tab PO TID PRN 07/05/17 07/05/17 History 7.5-325] Allergies Allergy/AdvReac Type Severity Reaction Status Date / Time ciprofloxacin HCl Allergy Lip Verified 07/05/17 13:18 [From Cipro] swelling, itching codeine Allergy Unknown Verified 07/05/17 13:18 Sulfa (Sulfonamide Allergy Unknown Verified 07/05/17 13:18 Antibiotics) Physical Exam Vitals: Vital Signs Temp Pulse Pulse Resp BP BP Pulse Ox 07/05/17 22:57 98.3 F 88 18 132/61 96 07/05/17 19:56 91 18 07/05/17 18:13 97.2 F L 84 16 135/63 93 L 07/05/17 18:03 98.3 F 91 18 123/54 97 07/05/17 17:13 84 07/05/17 16:52 88 07/05/17 16:27 99.9 F H 83 16 115/56 93 L 07/05/17 14:34 87 16 124/58 98 07/05/17 14:30 19 07/05/17 13:31 78 07/05/17 13:23 76 07/05/17 12:45 97.3 F L 83 21 137/61 97 Intake and Output 07/05/17 07/05/17 07/06/17 14:59 22:59 06:59 Intake Total 340 Balance 340 Intake: Oral 340 Other: Voiding Method Toilet # Voids 2 # Bowel Movements 1 Weight 48.988 kg 48.9 kg PHYSICAL EXAMINATION: Patient is lying in the bed comfortably, no acute distress, awake alert and oriented.. HEENT: Normocephalic. Neck is supple. Pupils reactive. Nostrils clear. Oral cavity is moist. Ears reveal no drainage. Neck reveals no JVD, carotid bruits, or thyromegaly. CHEST EXAMINATION: Trachea is central. Symmetrical expansion. Bilateral diminished air entry with minimal expiratory wheeze. CARDIAC: Normal S1, S2 with no gallops. No murmurs ABDOMEN: Soft. Bowel sounds normal. No organomegaly. No abdominal bruits. Extremities: reveal no edema. No clubbing or cyanosis Neurologically awake, alert, oriented x3 with well-coordinated movements. No focal deficits noted Skin: No rash or skin lesions. Psychiatric: Cooperative. Nonsuicidal Musculoskeletal: No joint swelling or deformity. Normal range of motion. Results CBC & Chem 7: 07/05/17 12:54 07/05/17 12:54 Labs: Abnormal Lab Results - Last 24 Hours (Table) 07/05/17 07/05/17 Range/Units 12:54 12:54 RBC 2.83 L (3.80-5.40) m/uL Hgb 8.5 L (11.4-16.0) gm/dL Hct 26.5 L (34.0-46.0) % Sodium 147 H (137-145) mmol/L Chloride 115 H (98-107) mmol/L Carbon Dioxide 17 L (22-30) mmol/L BUN 47 H (7-17) mg/dL Creatinine 2.80 H (0.52-1.04) mg/dL Calcium 7.2 L (8.4-10.2) mg/dL Total Bilirubin 0.1 L (0.2-1.3) mg/dL Total Protein 6.0 L (6.3-8.2) g/dL Thrombosis Risk Factor Assmnt - DVT/VTE Prophylaxis DVT/VTE Prophylaxis: Pharmacologic Prophylaxis ordered - Choose All That Apply Any of the Below Risk Factors Present?: Yes Each Factor Represents 1 point: Abnormal pulmonary function (COPD) Each Risk Factor Represents 2 Points: Age 61-74 years, Malignancy Thrombosis Risk Factor Assessment Total Risk Factor Score: 5 Thrombosis Risk Factor Assessment Level: High Risk Assessment and Plan Assessment: Shortness of breath secondary to Acute COPD exacerbation Acute on Chronic kidney disease stage IV with baseline creatinine near 2.5 secondary to chronic NSAID use and multiple myeloma. Normocytic anemia Metabolic acidosis secondary to CKD Multiple myeloma currently undergoing chemotherapy Hypernatremia age dehydration and volume depletion Previous history of smoking Hyperlipidemia Depression Chronic hypoxic respiratory failure secondary to COPD DVT prophylaxis Plan: Patient will be continued on DuoNeb's and IV steroids. Continue with breathing treatments and home medications and follow up closely. Gentle hydration with half-normal saline and follow-up renal function. Further recommendations based on the clinical course. Prognosis is guarded with multiple medical problems and comorbid conditions. Time with Patient: Greater than 30
[2017-07-06] MEDS ORDERED: LENALIDOMIDE 15 MG PO SCH (00:30)
[2017-07-06] MEDS: SODIUM CHLORIDE 0.45% 1,000 ML IV SCH ×2 (01:14→18:57)
[2017-07-06] MEDS: methylPREDNISolone SOD SUCCI 125 MG/2 ML VIAL IV SCH ×2 (01:14→05:43)
[2017-07-06 07:42] LABS: Basophils % (A) 0 %; Eosinophils % (A) 0 %; HCT 27.6 % (34.0-46.0); HGB 8.7 gm/dL (11.4-16.0); Hypochromasia Slight; Lymphocytes # (A) 0.6 k/uL (1.0-4.8); Lymphocytes % (A) 14 %; MCH 30.3 pg (25.0-35.0); MCHC 31.5 g/dL (31.0-37.0); MCV 96.1 fL (80.0-100.0); Mean Platelet Volume 8.1; Monocytes # (A) 0.2 k/uL (0-1.0); Monocytes % (A) 3 %; Neutrophils # (A) 3.7 k/uL (1.3-7.7); Neutrophils % (A) 82 %; Platelet Count 290 k/uL (150-450); RBC 2.88 m/uL (3.80-5.40); RDW 13.6 % (11.5-15.5); WBC 4.5 k/uL (3.8-10.6)
[2017-07-06 07:55] LABS: Calcium 7.2 mg/dL (8.4-10.2)
[2017-07-06 07:56] LABS: Potassium 5.2 mmol/L (3.5-5.1)
[2017-07-06] MEDS: ACYCLOVIR 200 MG CAP PO SCH (09:06)
[2017-07-06] MEDS: HEPARIN SODIUM,PORCINE 5,000 UNIT/ML 1 ML VIAL SQ SCH ×3 (09:06→23:37)
[2017-07-06] MEDS: TORSEMIDE 20 MG TAB PO SCH (09:07)
[2017-07-06] MEDS: BRIMONIDINE TARTRATE 0.2% DROPS 5 ML BTL BOTH EYES SCH ×2 (09:07→21:25)
[2017-07-06] MEDS: SODIUM BICARBONATE TAB 650 MG TAB PO SCH ×2 (09:08→21:25)
[2017-07-06] MEDS: INSULIN ASPART 100 UNIT/ML 1 ML 10 ML VIAL SQ SCH ×4 (09:09→21:25)
[2017-07-06] MEDS: HYDROcodone/APAP 7.5-325MG 1 EACH TAB PO PRN ×2 (09:30→21:26)
[2017-07-06 11:34] LABS: Glucose,Whole Blood 151 mg/dL (75-99)
[2017-07-06] MEDS ORDERED: DEXTROSE 50%-WATER 50 ML SYRINGE IVP STA (12:11)
[2017-07-06] MEDS ORDERED: INSULIN REGULAR 100 UNIT/ML VIAL SQ ONE (12:15)
[2017-07-06] MEDS: CLOPIDOGREL 75 MG TAB PO SCH (14:08)
[2017-07-06] MEDS: SERTRALINE 100 MG TAB PO SCH (14:08)
[2017-07-06] MEDS: IPRATROPIUM-ALBUTEROL 3 ML NEB INHALATION SCH ×2 (15:04→19:13)
--- NOTE | 2017-07-06 15:09 | P.CONS ---
History of Present Illness - Reason for Consult Consult date: 07/06/17 multiple myeloma, on treatment Requesting physician: John Olsen - Chief Complaint SOB, ELIEZER - History of Present Illness Ms Coleman is a pleasant white female, initially seen in consult at [facility] on 04/07/17. The patient had come to hospital with complaints of not feeling well over the last 4-6 weeks, decreased appetite, endurance, intermittent nausea, 8-10lb weight loss, increased bone pain in the bilateral ribs, creatinine was 2.9 (baseline around 2), calcium 13.4, she was anemia, 03/31 labs from Nephrology showed markedly elevated light chain at 4900 mg/dL, protein electrophoresis was negative, bone marrow aspiration biopsy 04/11/17, positive for myeloma, monoclonal plasma cells occupying about 60% of the marrow elements, normal cytogenetics, bone survey was negative for lytic lesions other than in the left upper humerus which had a moth-eaten appearance, fish panel showed 13q deletion, associated with intermediate prognosis in the absence of other accompanying abnormalities. She started Revlimid QOD x 7 doses every 21 days, dexamathasone 20mg on days of velcade injections, acyclovir 400mg daily, pt has sulfa allergy so, she cannot take the bactrim PCP prophylaxis. Pt was due for cycle 3 day 4 today. Pt was hospitalized after cycle 1 with COPD exacerbation, she is admitted for the same today. She came to the hospital due to progressive ELIEZER, denied fever, chills, cough is congested, no hemoptysis or purulent sputum, oral irritation, nausea, abd pain, appetite is good, no acute changes in bowel or bladder habits, rib pain is stable, no new or progressive pain to report. She is fully ambulatory. Review of Systems 10 point ROS as stated in HPI Past Medical History Past Medical History: CVA/TIA, Hyperlipidemia, Hypertension, Rheumatoid Arthritis (RA) Additional Past Medical History / Comment(s): Bone CA, multiple mylemoa History of Any Multi-Drug Resistant Organisms: None Reported Past Surgical History: Back Surgery Additional Past Surgical History / Comment(s): LUMBAR FUSION 1.5 YRS AGO, BREAST IMPLANTS IN THE 70'S REMOVED MID 90'S Past Anesthesia/Blood Transfusion Reactions: No Reported Reaction Past Psychological History: No Psychological Hx Reported Smoking Status: Former smoker Past Alcohol Use History: None Reported Past Drug Use History: None Reported - Past Family History Father Additional Family Medical History / Comment(s): FATHER 99 YRS OLD STILL LIVING HAS PROSTATE ISSUES Mother Family Medical History: Cancer Additional Family Medical History / Comment(s): LUNG CANCER Medications and Allergies Home Medications Medication Instructions Recorded Confirmed Type Clopidogrel [Plavix] 75 mg PO AC-LUNCH 01/28/17 07/05/17 History Latanoprost Ophth [Xalatan 0.005%] 1 drops BOTH EYES HS 01/28/17 07/05/17 History Sertraline [Zoloft] 200 mg PO AC-LUNCH 01/28/17 07/05/17 History Brimonidine Tartrate [Alphagan P 1 drops BOTH EYES BID 04/05/17 07/05/17 History 0.2% Ophth Soln] Acyclovir 400 mg PO DAILY 05/24/17 07/05/17 History Lenalidomide [Revlimid] 15 mg PO DIRECTED 05/24/17 07/05/17 History Prochlorperazine [Compazine] 10 mg PO Q6H PRN 05/24/17 07/05/17 History Ranitidine HCl [Zantac] 150 mg PO HS 05/24/17 07/05/17 History Ipratropium-Albuterol Nebulize 3 ml INHALATION RT-QID #90 05/29/17 07/05/17 Rx [Duoneb 0.5 mg-3 mg/3 ml Soln] ampul.neb Sodium Bicarbonate Tab 650 mg PO BID #60 tab 05/29/17 07/05/17 Rx Torsemide [Demadex] 5 mg PO DAILY #30 tablet 05/29/17 07/05/17 Rx Dexamethasone [Hexadrol] 20 mg PO DIRECTED 07/05/17 07/05/17 History HYDROcodone/APAP 7.5-325MG [[place] 1 tab PO TID PRN 07/05/17 07/05/17 History 7.5-325] Allergies Allergy/AdvReac Type Severity Reaction Status Date / Time ciprofloxacin HCl Allergy Lip Verified 07/05/17 13:18 [From Cipro] swelling, itching codeine Allergy Unknown Verified 07/05/17 13:18 Sulfa (Sulfonamide Allergy Unknown Verified 07/05/17 13:18 Antibiotics) Physical Exam Vitals: Vital Signs Temp Pulse Pulse Resp BP BP Pulse Ox 07/06/17 08:30 97.8 F 87 24 134/55 98 07/06/17 00:00 18 07/05/17 22:57 98.3 F 88 18 132/61 96 07/05/17 19:56 91 18 07/05/17 18:13 97.2 F L 84 16 135/63 93 L 07/05/17 18:03 98.3 F 91 18 123/54 97 07/05/17 17:13 84 07/05/17 16:52 88 07/05/17 16:27 99.9 F H 83 16 115/56 93 L 07/05/17 14:34 87 16 124/58 98 07/05/17 14:30 19 Intake and Output 07/05/17 07/06/17 07/06/17 22:59 06:59 14:59 Intake Total 340 Balance 340 Intake: Oral 340 Other: Voiding Method Toilet Toilet Toilet # Voids 2 2 2 # Bowel Movements 1 Weight 48.9 kg 48.9 kg - Constitutional General appearance: average body habitus, cooperative, mild distress - EENT Eyes: anicteric sclerae, EOMI ENT: hearing grossly normal, normal oropharynx - Neck Neck: no lymphadenopathy - Respiratory Respiratory: right: diminished (base and RML), rhonchi (end expiratory), left: rales (end expiratory), bilateral: wheezing (few scattered) - Cardiovascular Rhythm: regular Heart sounds: normal: S1, S2 Abnormal Heart Sounds: no systolic murmur, no diastolic murmur, no rub, no S3 Gallop, no S4 Gallop, no click, no other leg Peripheral Edema: bilateral: Trace - Gastrointestinal General gastrointestinal: no absent bowel sounds, no decreased bowel sounds, no distended, no hepatomegaly, no hyperactive bowel sounds, normal bowel sounds, no organomegaly, no rigid, no scaphoid, soft, no splenomegaly, no tenderness, no umbilical hernia, no ventral hernia - Integumentary Integumentary: normal - Neurologic Neurologic: CNII-XII intact - Musculoskeletal Musculoskeletal: strength equal bilaterally - Psychiatric Psychiatric: A&O x's 3, appropriate affect, intact judgment & insight Results CBC & Chem 7: 07/06/17 07:13 07/06/17 07:13 Labs: Abnormal Lab Results - Last 24 Hours (Table) 07/06/17 07/06/17 07/06/17 Range/Units 07:13 07:13 11:32 RBC 2.88 L (3.80-5.40) m/uL Hgb 8.7 L (11.4-16.0) gm/dL Hct 27.6 L (34.0-46.0) % Lymphocytes # 0.6 L (1.0-4.8) k/uL Potassium 5.2 H (3.5-5.1) mmol/L Chloride 114 H (98-107) mmol/L Carbon Dioxide 16 L (22-30) mmol/L BUN 45 H (7-17) mg/dL Creatinine 2.89 H (0.52-1.04) mg/dL Glucose 135 H (74-99) mg/dL POC Glucose (mg/dL) 151 H (75-99) mg/dL Calcium 7.2 L (8.4-10.2) mg/dL Chest x-ray: report reviewed Assessment and Plan (1) Multiple myeloma not having achieved remission Narrative/Plan: Hold Oral revlimid, velcade and dexamethasone for now. Continue with prophylaxctic acyclovir daily. Pt will continue with treatment once her COPD exacerbation is resolved. Appt for f/u is in chart Current Visit: Yes Status: Acute Priority: Medium Code(s): C90.00 - MULTIPLE MYELOMA NOT HAVING ACHIEVED REMISSION SNOMED Code(s): 205299828 (2) Myeloma kidney disease Narrative/Plan: BUN/Cr are baseline at this time. Current Visit: No Status: Chronic Priority: Medium Code(s): C90.00 - MULTIPLE MYELOMA NOT HAVING ACHIEVED REMISSION; N28.89 - OTHER SPECIFIED DISORDERS OF KIDNEY AND URETER SNOMED Code(s): 80088527 Plan: Recommend Pulmonary Consult for recurrent COPD exacerbation. Pt will benefit from follow up and monitoring by Pulmonary in the outpatient setting as well as she cannot take the PCP prophylaxis due to allergy, she is at increased risk for this opportunistic infection.
[2017-07-06] MEDS: methylPREDNISolone SOD SUCCI 40 MG/ML 1 ML VIAL IV SCH ×2 (16:53→23:39)
[2017-07-06 17:38] LABS: Glucose,Whole Blood 89 mg/dL (75-99)
[2017-07-06 20:03] LABS: Hemoglobin A1C 5.1 % (4.0-6.0)
[2017-07-06 20:49] LABS: Glucose,Whole Blood 159 mg/dL (75-99)
[2017-07-06] MEDS ORDERED: LATANOPROST 0.005% OPHTH DROPS 2.5 ML BTL BOTH EYES SCH (21:00)
[2017-07-06] MEDS ORDERED: FAMOTIDINE 20 MG TAB PO SCH (21:00)
[2017-07-06 23:17] VITALS: RESP 16
[2017-07-07] MEDS: IPRATROPIUM-ALBUTEROL 3 ML NEB INHALATION SCH ×4 (01:00→10:56)
[2017-07-07 07:18] LABS: Glucose,Whole Blood 148 mg/dL (75-99)
[2017-07-07 08:46] VITALS: BP 145/64; TEMP 98
[2017-07-07] MEDS: BRIMONIDINE TARTRATE 0.2% DROPS 5 ML BTL BOTH EYES SCH (10:04)
[2017-07-07] MEDS: INSULIN ASPART 100 UNIT/ML 1 ML 10 ML VIAL SQ SCH ×2 (10:04→13:03)
[2017-07-07] MEDS: HEPARIN SODIUM,PORCINE 5,000 UNIT/ML 1 ML VIAL SQ SCH ×2 (10:05→10:10)
[2017-07-07] MEDS: methylPREDNISolone SOD SUCCI 40 MG/ML 1 ML VIAL IV SCH (10:05)
[2017-07-07] MEDS: TORSEMIDE 20 MG TAB PO SCH (10:07)
[2017-07-07] MEDS: ACYCLOVIR 200 MG CAP PO SCH (10:07)
[2017-07-07] MEDS: SODIUM BICARBONATE TAB 650 MG TAB PO SCH (10:07)
[2017-07-07] MEDS: HYDROcodone/APAP 7.5-325MG 1 EACH TAB PO PRN (10:19)
[2017-07-07 11:08] VITALS: PULSE 69
--- NOTE | 2017-07-07 11:16 | P.CNPUL ---
History of Present Illness Consult date: 07/07/17 Requesting physician: Fidel Back Reason for consult: dyspnea, COPD Chief complaint: Shortness of breath History of present illness: This is a very pleasant 66-year-old female patient who follows with Dr. Villalobos as her primary care physician. She has a history of CVA/TIA, hyperlipidemia, hypertension, rheumatoid arthritis, renal failure. She also has a history of multiple myeloma diagnosed in April 2017 and initiated on Revlimid. She was admitted here on 07/05/2017 with complaints of increasing shortness of breath, cough and congestion. She does have a 30 year pack per day smoking history. She utilizes a nebulizer with DuoNeb inhalations as needed. She is scheduled to see Dr. Hart in our office on 07/11/2017 as a new patient. Her chest x-ray here reveals evidence of COPD but no acute pulmonary process. There is some multiple rib deformities of the right lateral rib cage. A computed tomography scan of the chest from March 2017 revealed no significant findings. There is some background moderate emphysematous changes and possibly underlying pulmonary artery hypertension. She is seen today in consultation on the oncology unit. She is awake and alert in no acute distress. She's been up ambulating in the hallway without any significant dyspnea on exertion. She is maintaining good O2 saturations in the upper 90s on room air. She's been afebrile. Hemodynamically stable. She was initiated on DuoNeb inhalations and IV Solu-Medrol. White count 4.5. Hemoglobin 8.7. Creatinine 2.89. Review of Systems 14 point review of system was conducted. All negative other than as mentioned in the HPI. Past Medical History Past Medical History: CVA/TIA, Hyperlipidemia, Hypertension, Rheumatoid Arthritis (RA) Additional Past Medical History / Comment(s): Bone CA, multiple mylemoa History of Any Multi-Drug Resistant Organisms: None Reported Past Surgical History: Back Surgery Additional Past Surgical History / Comment(s): LUMBAR FUSION 1.5 YRS AGO, BREAST IMPLANTS IN THE 70'S REMOVED MID 90'S Past Anesthesia/Blood Transfusion Reactions: No Reported Reaction Past Psychological History: No Psychological Hx Reported Smoking Status: Former smoker Past Alcohol Use History: None Reported Past Drug Use History: None Reported - Past Family History Father Additional Family Medical History / Comment(s): FATHER 99 YRS OLD STILL LIVING HAS PROSTATE ISSUES Mother Family Medical History: Cancer Additional Family Medical History / Comment(s): LUNG CANCER Medications and Allergies Home Medications Medication Instructions Recorded Confirmed Type Clopidogrel [Plavix] 75 mg PO AC-LUNCH 01/28/17 07/05/17 History Latanoprost Ophth [Xalatan 0.005%] 1 drops BOTH EYES HS 01/28/17 07/05/17 History Sertraline [Zoloft] 200 mg PO AC-LUNCH 01/28/17 07/05/17 History Brimonidine Tartrate [Alphagan P 1 drops BOTH EYES BID 04/05/17 07/05/17 History 0.2% Ophth Soln] Acyclovir 400 mg PO DAILY 05/24/17 07/05/17 History Lenalidomide [Revlimid] 15 mg PO DIRECTED 05/24/17 07/05/17 History Prochlorperazine [Compazine] 10 mg PO Q6H PRN 05/24/17 07/05/17 History Ranitidine HCl [Zantac] 150 mg PO HS 05/24/17 07/05/17 History Ipratropium-Albuterol Nebulize 3 ml INHALATION RT-QID #90 05/29/17 07/05/17 Rx [Duoneb 0.5 mg-3 mg/3 ml Soln] ampul.neb Sodium Bicarbonate Tab 650 mg PO BID #60 tab 05/29/17 07/05/17 Rx Torsemide [Demadex] 5 mg PO DAILY #30 tablet 05/29/17 07/05/17 Rx Dexamethasone [Hexadrol] 20 mg PO DIRECTED 07/05/17 07/05/17 History HYDROcodone/APAP 7.5-325MG [[place] 1 tab PO TID PRN 07/05/17 07/05/17 History 7.5-325] Allergies Allergy/AdvReac Type Severity Reaction Status Date / Time ciprofloxacin HCl Allergy Lip Verified 07/05/17 13:18 [From Cipro] swelling, itching codeine Allergy Unknown Verified 07/05/17 13:18 Sulfa (Sulfonamide Allergy Unknown Verified 07/05/17 13:18 Antibiotics) Physical Exam Vitals: Vital Signs Temp Pulse Pulse Resp BP Pulse Ox 07/07/17 07:18 98.0 F 97 16 145/64 98 07/07/17 07:15 72 07/07/17 07:05 70 07/07/17 04:50 76 07/07/17 04:38 84 07/07/17 01:13 76 07/07/17 01:01 76 07/06/17 22:15 98.1 F 88 16 128/56 97 07/06/17 19:26 88 07/06/17 19:13 90 96 07/06/17 15:15 98 18 07/06/17 15:04 99 18 98 07/06/17 15:00 97.6 F 104 H 16 118/54 93 L Intake and Output 07/06/17 07/07/17 07/07/17 22:59 06:59 14:59 Intake Total 1380 Balance 1380 Intake: IV 400 Sodium Chloride 0.45% 1, 400 000 ml @ 50 mls/hr IV . Q20H [facility]IVE Rx#:[id number] Intake, IV Titration 200 Amount Sodium Chloride 0.45% 1, 200 000 ml @ 50 mls/hr IV . Q20H [facility] Rx#:[id number] Oral 780 Other: Voiding Method Toilet Toilet Toilet # Voids 2 Weight 48.9 kg GENERAL EXAM: Alert, active, comfortable in no apparent distress. HEAD: Normocephalic. EYES: Normal reaction of pupils, equal size. NOSE: Clear with pink turbinates. THROAT: No erythema or exudates. NECK: No masses, no JVD. CHEST: No chest wall deformity. LUNGS: Equal air entry with no crackles, wheeze, rhonchi or dullness. CVS: S1 and S2 normal with no audible murmur, regular rhythm. ABDOMEN: No hepatosplenomegaly, normal bowel sounds, no guarding or rigidity. SPINE: No scoliosis or deformity SKIN: No rashes CENTRAL NERVOUS SYSTEM: No focal deficits, tone is normal in all 4 extremities. EXTREMITIES: There is no peripheral edema. No clubbing, no cyanosis. Peripheral pulses are intact. Results - Laboratory Findings CBC and BMP: 07/06/17 07:13 07/06/17 07:13 PT/INR, D-dimer PT 10.2 sec (9.0-12.0) 07/05/17 12:54 INR 1.0 (<1.2) 07/05/17 12:54 Abnormal lab findings: Abnormal Labs 07/05/17 07/05/17 07/06/17 12:54 12:54 07:13 RBC 2.83 L 2.88 L Hgb 8.5 L 8.7 L Hct 26.5 L 27.6 L Lymphocytes # 0.6 L Sodium 147 H Potassium Chloride 115 H Carbon Dioxide 17 L BUN 47 H Creatinine 2.80 H Glucose POC Glucose (mg/dL) Calcium 7.2 L Total Bilirubin 0.1 L Total Protein 6.0 L 07/06/17 07/06/17 07/06/17 07:13 11:32 20:28 RBC Hgb Hct Lymphocytes # Sodium Potassium 5.2 H Chloride 114 H Carbon Dioxide 16 L BUN 45 H Creatinine 2.89 H Glucose 135 H POC Glucose (mg/dL) 151 H 159 H Calcium 7.2 L Total Bilirubin Total Protein 07/07/17 07:16 RBC Hgb Hct Lymphocytes # Sodium Potassium Chloride Carbon Dioxide BUN Creatinine Glucose POC Glucose (mg/dL) 148 H Calcium Total Bilirubin Total Protein - Diagnostic Findings Chest x-ray: image reviewed Assessment and Plan Assessment: Impression: #1 Acute exacerbation of chronic obstructive pulmonary disease. #2 Chronic tobacco dependence however quit approximately 2 years ago. #3 Multiple myeloma currently on Revlimid and dexamethasone. #4 Acute on chronic renal failure with interstitial nephritis secondary to multiple myeloma. #5 History of CVA/TIA. #6 Hypertension. #7 Hyperlipidemia. #8 Rheumatoid arthritis previously on methotrexate, discontinued secondary to kidney disease Plan: The patient was seen and evaluated by Dr. Hart. Chest x-ray and labs were reviewed. She is cleared for discharge from the pulmonary standpoint. She should be on Symbicort 160/4.5 2 inhalations twice a day, DuoNeb inhalations 4 times a day. Prednisone taper. Keep her appointment for 07/11/2017 we'll perform full pulmonary function testing to evaluate the severity of her COPD and make further recommendations regarding maintenance medications. She is agreeable to the plan and encouraged to call sooner with any recurrence of symptoms or other questions or concerns. I, the cosigning physician, performed a history & physical examination of the patient. Lungs sounds are clear with end expiratory wheeze. Maintaining good O2 saturations in the 90s on room air. I discussed the assessment and plan of care with my nurse practitioner, Elida Rasheed. I attest to the above consultation as dictated by her. Time with Patient: Greater than 30
[2017-07-07 11:23] LABS: Glucose,Whole Blood 100 mg/dL (75-99)
[2017-07-07 11:50] LABS: Calcium 7.6 mg/dL (8.4-10.2); Potassium 4.9 mmol/L (3.5-5.1)
--- NOTE | 2017-07-07 12:32 | CDI ---
Last Revision, February 2017 Documentation Clarification Form Date: 07/07/17 From: Rosa Brooks RN, CCDS Admit Date: 07/06/2017 1:52:00 PM Patient Name: Lucero Coleman Visit Number: [id number] Discharge Date: ATTENTION: The Clinical Documentation Specialists (CDI) and [facility] Coding Staff appreciate your assistance in clarifying documentation. Please respond to the clarification below the line at the bottom and electronically sign. The CDI & [facility] Coding staff will review the response and follow-up if needed. Please note: Queries are made part of the Legal Health Record. If you have any questions, please contact the author of this message via ITS. Dr. Efren Larson A diagnosis of anemia lacks specificity to accurately reflect your patients severity of condition and clarification is needed. History/Risk Factors: Multiple Myeloma, CVA/TIA, Hypertension, Former smoker, Clinical indicators: 04/11/17 bone marrow aspiration biopsy positive for myeloma. She has anemia. She presents with shortness of breath cough and congestion. Her chest x-ray reveals evidence of COPD. Vitals signs on admission; 137/61 83 21 97.3 97 % 2/L NC Hemoglobin on admission: 8.5 Hematocrit on admission 26.5 Treatment: Monitor Labs In order to capture the severity of condition, please clarify the type of anemia and etiology if known: Acute blood loss anemia Acute on chronic blood loss anemia Chronic blood loss anemia Iron deficiency anemia Hemolytic anemia Drug induced anemia Anemia due to malignancy Nutritional anemia Anemia of chronic kidney disease Unable to determine Other, please specify Please continue to document in your progress notes and discharge summary in order to capture severity of illness and risk of mortality. Include clinical findings that support your diagnosis. MTDD
[2017-07-07] MEDS ORDERED: DEXTROSE 5% IN WATER 1,000 ML IV SCH (13:00)
[2017-07-07] MEDS: SERTRALINE 100 MG TAB PO SCH (13:05)
[2017-07-07] MEDS: CLOPIDOGREL 75 MG TAB PO SCH (13:05)
--- NOTE | 2017-07-07 13:08 | P.PN ---
Subjective Progress Note Date: 07/06/17 Principal diagnosis: acute COPD exacerbation Patient is a 66-year-old female with a known history of hypertension, hyperlipidemia, rheumatoid arthritis and recently diagnosed multiple myeloma last chemotherapy started 5 weeks ago came to ER with complaints of worsening shortness of breath and cough with grayish sputum production. Shortness of breath is worsening for the past 2-3 days. Patient states she has severe left rib pain is worse with coughing and bending forward. Denies any back pain, abdominal pain, nausea vomiting diarrhea constipation. She does have mild swelling lower extremities states that worsened usual. She denies any orthopnea. Patient is not on home oxygen . No complaints of fever or chills. No nausea vomiting or abdominal pain. No complaints of chest pain. Chest x-ray showed no acute process multiple deformities along the right lateral rib cage correlate for drip fractures EKG showed normal sinus rhythm. And 07/06/2017 Patient says that her breathing status is improving today. Otherwise creatinine level is 2.89. Potassium level 5.2 today Overall patient is clinically improving. No fever no chills. No worsening cough or sputum production. No other acute overnight issues. No chest pain. All other review of systems negative except above Active Medications Generic Name Dose Route Start Last Admin Trade Name Freq PRN Reason Stop Dose Admin Hydrocodone Bitart/Acetaminophen 1 each 07/06/17 00:21 07/06/17 09:30 [place] 7.5-325 PO 1 each TID PRN Administration Pain Acyclovir 400 mg 07/06/17 09:00 07/06/17 09:06 Zovirax PO 400 mg DAILY OLIVE Administration Albuterol/Ipratropium 3 ml 07/05/17 16:39 Duoneb 0.5 Mg-3 Mg/3 Ml Soln INHALATION RT-Q4H PRN Shortness Of Breath Or Wheezing Brimonidine Tartrate 1 drops 07/06/17 09:00 07/06/17 09:07 Alphagan P 0.2% Ophth Soln BOTH EYES 1 drops BID OLIVE Administration Clopidogrel Bisulfate 75 mg 07/06/17 12:30 Plavix PO AC-LUNCH OLIVE Famotidine 20 mg 07/06/17 21:00 Pepcid PO HS OLIVE Heparin Sodium (Porcine) 5,000 unit 07/06/17 08:00 07/06/17 09:06 Heparin SQ 5,000 unit Q8HR OLIVE Administration Sodium Chloride 1,000 mls @ 50 mls/hr 07/06/17 00:30 07/06/17 01:14 Saline 0.45% IV 50 mls/hr .Q20H OLIVE Administration Insulin Aspart 0 unit 07/06/17 07:30 07/06/17 09:09 Novolog SQ Not Given ACHS [facility] Protocol Latanoprost 1 drops 07/06/17 21:00 Xalatan 0.005% BOTH EYES HS [facility] Methylprednisolone Sodium Succinate 40 mg 07/06/17 16:00 Solu-Medrol IV Q8HR [facility] Non-Formulary Medication 15 mg 07/06/17 00:30 Lenalidomide [Revlimid] PO DIRECTED [facility] Prochlorperazine Maleate 10 mg 07/06/17 00:21 Compazine PO Q6H PRN Nausea Sertraline HCl 200 mg 07/06/17 12:30 Zoloft PO AC-LUNCH OLIVE Sodium Bicarbonate 650 mg 07/06/17 09:00 07/06/17 09:08 Sodium Bicarbonate Tab PO 650 mg BID OLIVE Administration Torsemide 5 mg 07/06/17 09:00 07/06/17 09:07 Demadex PO 5 mg DAILY OLIVE Administration Objective - Vital Signs Vital signs: Vital Signs Temp 97.8 F 07/06/17 08:30 Pulse 87 07/06/17 08:30 Resp 24 07/06/17 08:30 BP 134/55 07/06/17 08:30 Pulse Ox 98 07/06/17 08:30 Intake & Output 07/05/17 07/06/17 07/06/17 18:59 06:59 18:59 Intake Total 340 Balance 340 Weight 48.9 kg 48.9 kg Intake: Oral 340 Other: Voiding Method Toilet Toilet # Voids 2 2 # Bowel Movements 1 - Exam PHYSICAL EXAMINATION: Patient is lying in the bed comfortably, no acute distress, awake alert and oriented.. HEENT: Normocephalic. Neck is supple. Pupils reactive. Nostrils clear. Oral cavity is moist. Ears reveal no drainage. Neck reveals no JVD, carotid bruits, or thyromegaly. CHEST EXAMINATION: Trachea is central. Symmetrical expansion. Lung stewart clear to auscultation and percussion. CARDIAC: Normal S1, S2 with no gallops. No murmurs ABDOMEN: Soft. Bowel sounds normal. No organomegaly. No abdominal bruits. Extremities: reveal no edema. No clubbing or cyanosis Neurologically awake, alert, oriented x3 with well-coordinated movements. No focal deficits noted Skin: No rash or skin lesions. Psychiatric: Coperative. Nonsuicidal Musculoskeletal: No joint swelling or deformity. Normal range of motion. - Labs CBC & Chem 7: 07/06/17 07:13 07/07/17 11:01 Labs: Abnormal Lab Results - Last 24 Hours (Table) 07/05/17 07/05/17 07/06/17 Range/Units 12:54 12:54 07:13 RBC 2.83 L 2.88 L (3.80-5.40) m/uL Hgb 8.5 L 8.7 L (11.4-16.0) gm/dL Hct 26.5 L 27.6 L (34.0-46.0) % Lymphocytes # 0.6 L (1.0-4.8) k/uL Sodium 147 H (137-145) mmol/L Potassium (3.5-5.1) mmol/L Chloride 115 H (98-107) mmol/L Carbon Dioxide 17 L (22-30) mmol/L BUN 47 H (7-17) mg/dL Creatinine 2.80 H (0.52-1.04) mg/dL Glucose (74-99) mg/dL POC Glucose (mg/dL) (75-99) mg/dL Calcium 7.2 L (8.4-10.2) mg/dL Total Bilirubin 0.1 L (0.2-1.3) mg/dL Total Protein 6.0 L (6.3-8.2) g/dL 07/06/17 07/06/17 Range/Units 07:13 11:32 RBC (3.80-5.40) m/uL Hgb (11.4-16.0) gm/dL Hct (34.0-46.0) % Lymphocytes # (1.0-4.8) k/uL Sodium (137-145) mmol/L Potassium 5.2 H (3.5-5.1) mmol/L Chloride 114 H (98-107) mmol/L Carbon Dioxide 16 L (22-30) mmol/L BUN 45 H (7-17) mg/dL Creatinine 2.89 H (0.52-1.04) mg/dL Glucose 135 H (74-99) mg/dL POC Glucose (mg/dL) 151 H (75-99) mg/dL Calcium 7.2 L (8.4-10.2) mg/dL Total Bilirubin (0.2-1.3) mg/dL Total Protein (6.3-8.2) g/dL Assessment and Plan Assessment: Shortness of breath secondary to Acute COPD exacerbation Acute on Chronic kidney disease stage IV with baseline creatinine near 2.5 secondary to chronic NSAID use and multiple myeloma. Hyperkalemia due to CK D and acidosis Normocytic anemia Metabolic acidosis secondary to CKD Multiple myeloma currently undergoing chemotherapy Hypernatremia age dehydration and volume depletion Previous history of smoking Hyperlipidemia Depression Chronic hypoxic respiratory failure secondary to COPD DVT prophylaxis Plan: Patient will be continued on DuoNeb's and IV steroids. Continue with breathing treatments and home medications and follow up closely. Gentle hydration with half-normal saline and follow-up renal function. Further recommendations based on the clinical course. Prognosis is guarded with multiple medical problems and comorbid conditions. Time with Patient: Greater than 30
--- NOTE | 2017-07-07 13:11 | P.DS ---
Providers Date of admission: 07/06/17 13:52 Expected date of discharge: 07/07/17 Attending physician: Fidel Back Consults: 07/06/17 09:57 Consult Physician Routine Consulting Provider: Efren Larson Consult Reason/Comments: Recent chemotherapy Do you want consulting provider notified?: Already Contacted 07/07/17 10:16 Consult Physician Routine Consulting Provider: Chriss Hart Consult Reason/Comments: COPD Do you want consulting provider notified?: Yes Primary care physician: [facility] Course: Discharge diagnosis Shortness of breath secondary to Acute COPD exacerbation Acute on Chronic kidney disease stage IV with baseline creatinine near 2.5 secondary to chronic NSAID use and multiple myeloma. Hyperkalemia due to CK D and acidosis. Normocytic anemia Metabolic acidosis secondary to CKD Multiple myeloma currently undergoing chemotherapy Hypernatremia age dehydration and volume depletion Previous history of smoking Hyperlipidemia Depression Chronic hypoxic respiratory failure secondary to COPD DVT prophylaxis Hospital course Patient is a 66-year-old female with a known history of hypertension, hyperlipidemia, rheumatoid arthritis and recently diagnosed multiple myeloma last chemotherapy started 5 weeks ago came to ER with complaints of worsening shortness of breath and cough with grayish sputum production. Shortness of breath is worsening for the past 2-3 days. Patient states she has severe left rib pain is worse with coughing and bending forward. Denies any back pain, abdominal pain, nausea vomiting diarrhea constipation. She does have mild swelling lower extremities states that worsened usual. She denies any orthopnea. Patient is not on home oxygen . No complaints of fever or chills. No nausea vomiting or abdominal pain. No complaints of chest pain. Chest x-ray showed no acute process multiple deformities along the right lateral rib cage correlate for drip fractures EKG showed normal sinus rhythm. And 07/06/2017 Patient says that her breathing status is improving today. Otherwise creatinine level is 2.89. Potassium level 5.2 today Overall patient is clinically improving. No fever no chills. No worsening cough or sputum production. No other acute overnight issues. No chest pain. 07/07/2017 Patient denied any complaints of chest pain or shortness of breath. They'll function improved and the K+ level came down to 4.9 Patient was seen by pulmonary and recommended tapering steroid dose and Symbicort along with duo nebs Patient was continued on DuoNeb's and IV steroids. Continued with breathing treatments and home medications and followed up closely. Gentle hydration with half-normal saline and follow-up renal function. Seen by pulmonary. Patient did improve clinically and is stable to be discharged home. PHYSICAL EXAMINATION: Patient is lying in the bed comfortably, no acute distress, awake alert and oriented.. HEENT: Normocephalic. Neck is supple. Pupils reactive. Nostrils clear. Oral cavity is moist. Ears reveal no drainage. Neck reveals no JVD, carotid bruits, or thyromegaly. CHEST EXAMINATION: Trachea is central. Symmetrical expansion. Lung stewart clear to auscultation and percussion. CARDIAC: Normal S1, S2 with no gallops. No murmurs ABDOMEN: Soft. Bowel sounds normal. No organomegaly. No abdominal bruits. Extremities: reveal no edema. No clubbing or cyanosis Neurologically awake, alert, oriented x3 with well-coordinated movements. No focal deficits noted Skin: No rash or skin lesions. Psychiatric: Coperative. Nonsuicidal Musculoskeletal: No joint swelling or deformity. Normal range of motion. Vital Signs - 24 hr 07/06/17 07/06/17 07/06/17 15:00 15:04 15:15 Temperature 97.6 F Pulse Rate 99 98 Pulse Rate [ 104 H Right Supine Pulse Oximetery ] Respiratory 16 18 18 Rate Blood Pressure 118/54 [Left Arm Supine] O2 Sat by Pulse 93 L 98 Oximetry 07/06/17 07/06/17 07/06/17 19:13 19:26 22:15 Temperature 98.1 F Pulse Rate 90 88 Pulse Rate [ 88 Right Supine Pulse Oximetery ] Respiratory 16 Rate Blood Pressure 128/56 [Left Arm Supine] O2 Sat by Pulse 96 97 Oximetry 07/07/17 07/07/17 07/07/17 01:01 01:13 04:38 Temperature Pulse Rate 76 76 84 Pulse Rate [ Right Supine Pulse Oximetery ] Respiratory Rate Blood Pressure [Left Arm Supine] O2 Sat by Pulse Oximetry 07/07/17 07/07/17 07/07/17 04:50 07:05 07:15 Temperature Pulse Rate 76 70 72 Pulse Rate [ Right Supine Pulse Oximetery ] Respiratory Rate Blood Pressure [Left Arm Supine] O2 Sat by Pulse Oximetry 07/07/17 07/07/17 07/07/17 07:18 10:56 11:06 Temperature 98.0 F Pulse Rate 68 69 Pulse Rate [ 97 Right Supine Pulse Oximetery ] Respiratory 16 Rate Blood Pressure 145/64 [Left Arm Supine] O2 Sat by Pulse 98 Oximetry Total time taken greater than 35 minutes including 18 minutes for counseling and coordination of care. Patient Condition at Discharge: Stable Plan - Discharge Summary Discharge Rx Participant: No New Discharge Prescriptions: New Budesonide-Formot 160-4.5 Mcg [Symbicort 160-4.5 Mcg Inhaler] 2 puff INHALATION BID #1 inhaler predniSONE See Taper PO DAILY #30 tab Continue Latanoprost Ophth [Xalatan 0.005%] 1 drops BOTH EYES HS Sertraline [Zoloft] 200 mg PO AC-LUNCH Clopidogrel [Plavix] 75 mg PO AC-LUNCH Brimonidine Tartrate [Alphagan P 0.2% Ophth Soln] 1 drops BOTH EYES BID Ranitidine HCl [Zantac] 150 mg PO HS Prochlorperazine [Compazine] 10 mg PO Q6H PRN PRN Reason: Nausea Lenalidomide [Revlimid] 15 mg PO DIRECTED Acyclovir 400 mg PO DAILY Ipratropium-Albuterol Nebulize [Duoneb 0.5 mg-3 mg/3 ml Soln] 3 ml INHALATION RT-QID #90 ampul.neb Sodium Bicarbonate Tab 650 mg PO BID #60 tab Torsemide [Demadex] 5 mg PO DAILY #30 tablet HYDROcodone/APAP 7.5-325MG [[place] 7.5-325] 1 tab PO TID PRN PRN Reason: Pain Discontinued Dexamethasone [Hexadrol] 20 mg PO DIRECTED Discharge Medication List Clopidogrel [Plavix] 75 mg PO AC-LUNCH 01/28/17 [History] Latanoprost Ophth [Xalatan 0.005%] 1 drops BOTH EYES HS 01/28/17 [History] Sertraline [Zoloft] 200 mg PO AC-LUNCH 01/28/17 [History] Brimonidine Tartrate [Alphagan P 0.2% Ophth Soln] 1 drops BOTH EYES BID [History] Acyclovir 400 mg PO DAILY 05/24/17 [History] Lenalidomide [Revlimid] 15 mg PO DIRECTED 05/24/17 [History] Prochlorperazine [Compazine] 10 mg PO Q6H PRN 05/24/17 [History] Ranitidine HCl [Zantac] 150 mg PO HS 05/24/17 [History] Ipratropium-Albuterol Nebulize [Duoneb 0.5 mg-3 mg/3 ml Soln] 3 ml INHALATION RT -QID #90 ampul.neb 05/29/17 [Rx] Sodium Bicarbonate Tab 650 mg PO BID #60 tab 05/29/17 [Rx] Torsemide [Demadex] 5 mg PO DAILY #30 tablet 05/29/17 [Rx] HYDROcodone/APAP 7.5-325MG [[place] 7.5-325] 1 tab PO TID PRN 07/05/17 [History] Budesonide-Formot 160-4.5 Mcg [Symbicort 160-4.5 Mcg Inhaler] 2 puff INHALATION BID #1 inhaler 07/07/17 [Rx] predniSONE See Taper PO DAILY #30 tab 07/07/17 [Rx] Follow up Appointment(s)/Referral(s): Efren Larson MD [STAFF PHYSICIAN] - 07/10/17 2:30 pm Kirby Villalobos DO [Primary Care Provider] - 07/11/17 11:20 am Chriss Hart DO [Doctor of Osteopathic Medicine] - 07/11/17 1:15 pm Patient Instructions/Handouts: Chronic Kidney Disease (DC), COPD (Chronic Obstructive Pulmonary Disease) (DC) Discharge Disposition: HOME SELF-CARE
[2017-07-07] MEDS ORDERED: predniSONE 20 MG TAB PO SCH (13:15)
== END 2017-07-07 14:37 | disposition home or self-care (01) | DRG 191 ==
LOC: EC 12:42 → 5ONC 17:24 → OBSVTOIN 07-06 13:52
PROVIDERS: ADMIT Internal Medicine; ATTEND Internal Medicine
DX: J44.1 Chronic obstructive pulmonary disease with (acute) exacerbation (principal); J96.11 Chronic respiratory failure with hypoxia; C90.00 Multiple myeloma not having achieved remission; E87.0 Hyperosmolality and hypernatremia; E87.2 Acidosis; N12 Tubulo-interstitial nephritis, not specified as acute or chronic; N17.9 Acute kidney failure, unspecified; N18.4 Chronic kidney disease, stage 4 (severe); I12.9 Hypertensive chronic kidney disease with stage 1 through stage 4 chronic kidney disease, or unspecified chronic kidney disease; D63.0 Anemia in neoplastic disease; E78.5 Hyperlipidemia, unspecified; E86.0 Dehydration; E87.5 Hyperkalemia; F32.9 Major depressive disorder, single episode, unspecified; M06.9 Rheumatoid arthritis, unspecified; Z79.1 Long term (current) use of non-steroidal anti-inflammatories (NSAID); Z79.4 Long term (current) use of insulin; Z79.899 Other long term (current) drug therapy; Z80.1 Family history of malignant neoplasm of trachea, bronchus and lung; Z85.830 Personal history of malignant neoplasm of bone; Z86.73 Personal history of transient ischemic attack (TIA), and cerebral infarction without residual deficits; Z87.891 Personal history of nicotine dependence; Z88.2 Allergy status to sulfonamides; Z98.82 Breast implant status; Z98.1 Arthrodesis status; Z79.02 Long term (current) use of antithrombotics/antiplatelets; Z79.891 Long term (current) use of opiate analgesic; Z88.5 Allergy status to narcotic agent; Z88.1 Allergy status to other antibiotic agents
CPT/HCPCS: 36415; 71046; 80048; 80053; 82550; 82553; 83036; 83735; 83880; 84484; 85025; 85610; 85730; 93005; 94640; 94760; 96374; 96375; 99285

== ENCOUNTER → 2017-07-27 | Outpatient (CLI) | payer MEDICARE ==
--- NOTE | 2017-07-27 16:16 | XR ---
EXAMINATION TYPE: XR chest 2V DATE OF EXAM: 07/27/2017 COMPARISON: NONE HISTORY: Cough for 2 weeks with history of COPD TECHNIQUE: Frontal and lateral views of the chest are obtained. FINDINGS: There is pulmonary hyperinflation compatible the patient's known underlying history of COPD . There is no focal air space opacity, pleural effusion, or sizable pneumothorax seen. The cardiac s ilhouette size is within normal limits. The osseous structures are intact. Small multilevel anterio r osteophytes are seen of the thoracic spine. Probable skinfold is seen right laterally. IMPRESSION: No acute cardiopulmonary process. However, there is a probable skin fold laterally not a ppreciated on the lateral view within the right midlung for which repeat chest radiograph is recommen ded to ensure no small pneumothorax.
== END | disposition home or self-care (01) ==
LOC: RADXRMAIN 15:41
PROVIDERS: ATTEND Nurse Practitioner Adult Health
DX: I10 Essential (primary) hypertension (principal); C90.00 Multiple myeloma not having achieved remission; M12.9 Arthropathy, unspecified; Z71.3 Dietary counseling and surveillance
CPT/HCPCS: 71046

== ENCOUNTER 2017-08-03 16:34 | Inpatient (IN) | payer MEDICARE ==
[2017-08-03] MEDS ORDERED: KETOROLAC 30 MG/ML 1 ML VIAL IVP STA (16:39)
[2017-08-03] MEDS ORDERED: ONDANSETRON 4 MG/2 ML VIAL IVP STA (16:39)
[2017-08-03] MEDS ORDERED: SODIUM CHLORIDE 0.9% 500 ML IV STA (16:39)
[2017-08-03 17:02] LABS: Basophils % (A) 0 %; Eosinophils # (A) 0.4 k/uL (0-0.7); Eosinophils % (A) 6 %; HCT 25.7 % (34.0-46.0); HGB 8.3 gm/dL (11.4-16.0); Lymphocytes # (A) 1.1 k/uL (1.0-4.8); Lymphocytes % (A) 16 %; MCH 30.5 pg (25.0-35.0); MCHC 32.4 g/dL (31.0-37.0); Mean Platelet Volume 9.3; Monocytes # (A) 0.6 k/uL (0-1.0); Monocytes % (A) 9 %; Neutrophils # (A) 4.5 k/uL (1.3-7.7); Neutrophils % (A) 66 %; RBC 2.73 m/uL (3.80-5.40); RDW 15.7 % (11.5-15.5); WBC 6.8 k/uL (3.8-10.6)
[2017-08-03 17:03] LABS: Platelet Count 110 k/uL (150-450)
[2017-08-03 17:15] LABS: Calcium 6.9 mg/dL (8.4-10.2); Potassium 4.1 mmol/L (3.5-5.1)
--- NOTE | 2017-08-03 17:31 | ED ---
Back Pain HPI - General Chief Complaint: Abdominal Pain Stated Complaint: FLANK PAIN Time Seen by Provider: 08/03/17 16:39 Source: patient, EMS Limitations: no limitations - History of Present Illness Initial Comments: 56-year-old female with past medical history of multiple myeloma presenting for evaluation of left sided back pain with radiation around into her abdomen. She states that her symptoms of been ongoing for the last 4-5 days and have been constant with a waxing and waning nature. She stridor, medications without significant relief in her symptoms and states certain movements make her pain worse. She describes quality is sharp and there is no radiation as it is throughout her entire abdomen and left back. There is associated diarrhea and loose stools however she denies vomiting. She states a history of kidney stones however this feels distinctly different. - Related Data Home Medications Medication Instructions Recorded Confirmed Clopidogrel [Plavix] 75 mg PO AC-LUNCH 01/28/17 08/03/17 Latanoprost Ophth [Xalatan 0.005%] 1 drops BOTH EYES HS 01/28/17 08/03/17 Sertraline [Zoloft] 200 mg PO AC-LUNCH 01/28/17 08/03/17 Brimonidine Tartrate [Alphagan P 1 drops BOTH EYES BID 04/05/17 08/03/17 0.2% Ophth Soln] Acyclovir 400 mg PO DAILY 05/24/17 08/03/17 Lenalidomide [Revlimid] 15 mg PO DIRECTED 05/24/17 08/03/17 Ranitidine HCl [Zantac] 150 mg PO HS 05/24/17 08/03/17 HYDROcodone/APAP 7.5-325MG [[place] 1 tab PO TID PRN 07/05/17 08/03/17 7.5-325] Timolol 0.5% Ophth Soln [Timoptic 1 drop LEFT EYE BID 08/03/17 08/03/17 0.5% Ophth Soln] Previous Rx's Medication Instructions Recorded Ipratropium-Albuterol Nebulize 3 ml INHALATION RT-QID #90 05/29/17 [Duoneb 0.5 mg-3 mg/3 ml Soln] ampul.neb Sodium Bicarbonate Tab 650 mg PO BID #60 tab 05/29/17 Torsemide [Demadex] 5 mg PO DAILY #30 tablet 05/29/17 Budesonide-Formot 160-4.5 Mcg 2 puff INHALATION BID #1 inhaler 07/07/17 [Symbicort 160-4.5 Mcg Inhaler] predniSONE See Taper PO DAILY #30 tab 07/07/17 Allergies Allergy/AdvReac Type Severity Reaction Status Date / Time ciprofloxacin HCl Allergy Lip Verified 08/03/17 18:41 [From Cipro] swelling, itching codeine Allergy Unknown Verified 08/03/17 18:41 Sulfa (Sulfonamide Allergy Unknown Verified 08/03/17 18:41 Antibiotics) Review of Systems ROS Statement: Those systems with pertinent positive or pertinent negative responses have been documented in the HPI. ROS Other: All systems not noted in ROS Statement are negative. Constitutional: Denies: fever, chills Eyes: Denies: eye pain, vision change ENT: Denies: ear pain, throat pain Respiratory: Denies: cough, dyspnea Cardiovascular: Denies: chest pain, palpitations Endocrine: Denies: fatigue, polydipsia, polyuria Gastrointestinal: Reports: abdominal pain, nausea, diarrhea. Denies: vomiting, constipation, hematemesis, melena, hematochezia Genitourinary: Denies: urgency, dysuria Musculoskeletal: Reports: back pain. Denies: arthralgia, myalgia Skin: Denies: rash, lesions Neurological: Denies: headache, weakness Psychiatric: Denies: anxiety, depression Hematological/Lymphatic: Denies: easy bleeding, easy bruising Past Medical History Past Medical History: CVA/TIA, Hyperlipidemia, Hypertension, Rheumatoid Arthritis (RA) Additional Past Medical History / Comment(s): Bone CA, multiple mylemoa History of Any Multi-Drug Resistant Organisms: None Reported Past Surgical History: Back Surgery Additional Past Surgical History / Comment(s): LUMBAR FUSION 1.5 YRS AGO, BREAST IMPLANTS IN THE 70'S REMOVED MID 90'S Past Anesthesia/Blood Transfusion Reactions: No Reported Reaction Past Psychological History: No Psychological Hx Reported Smoking Status: Former smoker Past Alcohol Use History: None Reported Past Drug Use History: None Reported - Past Family History Father Additional Family Medical History / Comment(s): FATHER 99 YRS OLD STILL LIVING HAS PROSTATE ISSUES Mother Family Medical History: Cancer Additional Family Medical History / Comment(s): LUNG CANCER General Exam Limitations: no limitations General appearance: alert, in distress (Mild) Head exam: Present: atraumatic, normocephalic, normal inspection Eye exam: Present: normal appearance, PERRL, EOMI. Absent: scleral icterus, conjunctival injection, periorbital swelling ENT exam: Present: normal exam, mucous membranes moist Neck exam: Present: normal inspection. Absent: tenderness, meningismus, lymphadenopathy Respiratory exam: Present: normal lung sounds bilaterally. Absent: respiratory distress, wheezes, rales, rhonchi, stridor Cardiovascular Exam: Present: regular rate, normal rhythm, normal heart sounds. Absent: systolic murmur, diastolic murmur, rubs, gallop, clicks GI/Abdominal exam: Present: soft, tenderness, normal bowel sounds. Absent: distended, guarding, rebound, rigid Rectal exam: Present: deferred Extremities exam: Present: normal inspection, full ROM, normal capillary refill. Absent: tenderness, pedal edema, joint swelling, calf tenderness Back exam: Present: tenderness, paraspinal tenderness. Absent: full ROM, muscle spasm, vertebral tenderness Neurological exam: Present: alert, oriented X3, CN II-XII intact Psychiatric exam: Present: normal affect, normal mood Skin exam: Present: warm, dry, intact, normal color. Absent: rash Course Vital Signs 08/03/17 08/03/17 08/03/17 16:35 18:15 19:48 Temperature 97.0 F L 97.9 F Pulse Rate 85 82 68 Respiratory 19 20 17 Rate Blood Pressure 141/63 132/62 139/63 O2 Sat by Pulse 98 99 97 Oximetry Medical Decision Making - Medical Decision Making 66-year-old female with past medical history of multiple myeloma and kidney stones presented for evaluation of left flank/back pain with radiation throughout her entire abdomen. Onset about 45 days ago. On physical examination she appears to be in mild distress and is holding her left flank. Abdomen is soft however there are tenderness throughout the entire abdomen. Left-sided CVA tenderness. Remainder of physical exam is benign. Patient is anxious that this could be a recurrence of her multiple myeloma. Labs revealed a hemoglobin of 8.3 however this is stable for her baseline as is her creatinine of 3.53. Urinalysis shows moderate urine blood and urine RBCs. CT renal stone shows no obstructive uropathy however there is caloric change of the small bowel that suggests low-grade partial small bowel obstruction. There are also multifocal skeletal findings in keeping with the clinical history of multiple myeloma. The patient was reevaluated and had improvement in her symptoms. She was informed of all results and agreed with plan to admit for further treatment and evaluation of bowel obstruction. Dr. Serrano accepted the admission with request for consult to Dr. Kaplan who accepted without further request. Pt made NPO, admission order placed, and bed request submitted. - Lab Data Result diagrams: 08/03/17 16:46 08/03/17 16:46 Lab Results 08/03/17 08/03/17 Range/Units 16:46 16:46 WBC 6.8 (3.8-10.6) k/uL RBC 2.73 L (3.80-5.40) m/uL Hgb 8.3 L (11.4-16.0) gm/dL Hct 25.7 L (34.0-46.0) % MCV 94.0 (80.0-100.0) fL MCH 30.5 (25.0-35.0) pg MCHC 32.4 (31.0-37.0) g/dL RDW 15.7 H (11.5-15.5) % Plt Count 110 L D (150-450) k/uL Neutrophils % 66 % Lymphocytes % 16 % Monocytes % 9 % Eosinophils % 6 % Basophils % 0 % Neutrophils # 4.5 (1.3-7.7) k/uL Lymphocytes # 1.1 (1.0-4.8) k/uL Monocytes # 0.6 (0-1.0) k/uL Eosinophils # 0.4 (0-0.7) k/uL Basophils # 0.0 (0-0.2) k/uL Sodium 144 (137-145) mmol/L Potassium 4.1 (3.5-5.1) mmol/L Chloride 111 H (98-107) mmol/L Carbon Dioxide 16 L (22-30) mmol/L Anion Gap 17 mmol/L BUN 50 H (7-17) mg/dL Creatinine 3.53 H (0.52-1.04) mg/dL Est GFR (CKD-EPI)AfAm 15 (>60 ml/min/1.73 sqM) Est GFR (CKD-EPI)NonAf 13 (>60 ml/min/1.73 sqM) Glucose 95 (74-99) mg/dL Calcium 6.9 L (8.4-10.2) mg/dL Disposition Clinical Impression: Small bowel obstruction Disposition: ADMITTED IP TO THIS [facility] Decision to Admit Reason: Admit from EC Decision Date: 08/03/17 Decision Time: 19:33
--- NOTE | 2017-08-03 18:07 | CT ---
EXAMINATION TYPE: CT renal stones wo con DATE OF EXAM: 08/03/2017 HISTORY: Left flank pain. History of multiple myeloma. CT DLP: 192.6 mGycm. Automated Exposure Control for Dose Reduction was Utilized. TECHNIQUE: CT scan of the abdomen and pelvis is performed without oral or IV contrast. COMPARISON: NONE FINDINGS: Within the limitations of a non-contrast study, the following observations are made. LUNG BASES: No significant abnormality is appreciated. LIVER/GB: No significant abnormality is appreciated. PANCREAS: No significant abnormality is seen. SPLEEN: No significant abnormality is seen. ADRENALS: No significant abnormality is seen. KIDNEYS, URETERS, AND BLADDER: No hydronephrosis or hydroureter, 12 mm nonobstructing renal calcifica tion is seen in the left kidney midpole. 2 mm nonobstructing calcification of the lower right pelvis. Ureters are unremarkable. Urinary bladder is unremarkable. BOWEL: The jejunal and proximal ileal small bowel loops are fluid distended and more prominent in [place] iber, though not dilated, then the distal ileal bowel loops. GENITAL ORGANS: No gross abnormality seen. LYMPH NODES: No greater than 1cm abdominal or pelvic lymph nodes are appreciated. OSSEOUS STRUCTURES: There is generalized osteopenia and there are multiple focal lytic lesions apprec iated. Lateral right lower rib fractures are appreciated, appearing chronic VASCULATURE: There are nonaneurysmal atherosclerotic calcifications throughout the aortoiliac system. IMPRESSION: 1. No obstructive uropathy; bilateral nonobstructing renal calcifications greater in size on the left . 2. Caliber change of the small bowel suggests low grade partial small bowel obstruction. 3. Multifocal skeletal findings, in keeping with the clinical history of multiple myeloma.
[2017-08-03] MEDS ORDERED: NALOXONE 0.4 MG/ML 1 ML VIAL IV PRN (19:30)
[2017-08-03] MEDS ORDERED: MORPHINE SULFATE 2 MG/ML SYRINGE IV PRN (19:30)
[2017-08-03] MEDS ORDERED: ONDANSETRON 4 MG/2 ML VIAL IVP PRN (19:30)
[2017-08-03] MEDS ORDERED: HYDROcodone/APAP 7.5-325MG 1 EACH TAB PO PRN (19:32)
[2017-08-03 19:43] LABS: Appearance,Urine Clear (Clear); Bilirubin,Urine Negative (Negative); Blood,Urine Moderate (Negative); Color,Urine Light Yellow; Glucose,Urine (UA) 2+ (Negative); Ketones,Urine Negative (Negative); Leukocyte Esterase,Urine Negative (Negative); Mucus,Urine Rare /hpf; Nitrite,Urine Negative (Negative); Protein,Urine 1+ (Negative); RBC,Urine 42 /hpf (0-5); Urobilinogen,Urine <2.0 mg/dL (<2.0); WBC,Urine 1 /hpf (0-5)
[2017-08-03] MEDS: IPRATROPIUM-ALBUTEROL 3 ML NEB INHALATION SCH (19:47)
[2017-08-03] MEDS: SYMBICORT 160-4.5 MCG INHALER INHALATION SCH (19:47)
[2017-08-03] MEDS: DEXTROSE 5%-0.45% NACL 1,000 ML IV SCH (20:26)
[2017-08-03] MEDS: LATANOPROST 0.005% OPHTH DROPS 2.5 ML BTL BOTH EYES SCH (20:27)
[2017-08-03] MEDS: BRIMONIDINE TARTRATE 0.2% DROPS 5 ML BTL BOTH EYES SCH (20:27)
[2017-08-03] MEDS: TIMOLOL 0.5% OPHTH DROPS 5 ML BTL LEFT EYE SCH (20:27)
[2017-08-03] MEDS: FAMOTIDINE 20 MG TAB PO SCH (22:22)
[2017-08-03] MEDS: SODIUM BICARBONATE TAB 650 MG TAB PO SCH (22:22)
[2017-08-03] MEDS ORDERED: MAGNESIUM HYDROXIDE 2,400 MG/10 ML CUP PO PRN (22:33)
[2017-08-03] MEDS ORDERED: CALCIUM CARBONATE 500 MG CHEWABLE PO PRN (22:33)
[2017-08-03] MEDS ORDERED: ALPRAZolam 0.25 MG TAB PO PRN (22:33)
[2017-08-03] MEDS ORDERED: ACETAMINOPHEN TAB 325 MG TAB PO PRN (22:33)
[2017-08-03] MEDS ORDERED: LACTULOSE 20 GM/30 ML CUP PO PRN (22:33)
[2017-08-03] MEDS ORDERED: MELATONIN 3 MG TABLET PO PRN (22:33)
--- NOTE | 2017-08-03 23:31 | HP ---
HISTORY AND PHYSICAL DATE OF SERVICE: 08/03/2017 PRESENTING COMPLAINT: Acute low back pain. HISTORY OF PRESENTING COMPLAINT: This is a very pleasant 66-year-old patient who follows with Dr. Villalobos. Chronic stable medical conditions include COPD, hyperlipidemia, hypertension, chronic kidney disease, rheumatoid arthritis, multiple myeloma, CVA affecting the left leg with some left leg weakness anxiety. The patient also has musculoskeletal pain and involvement of multiple myeloma. The patient has [place]appa light chain myeloma and on home oxygen from underlying COPD. The patient presented with a few days of increasing lower back pain just above the sacrum, getting worse. It became rather severe yesterday and was related to movement, did not radiate down the legs. No change in bowel movement. No fever. No chills. No injury. Appetite is fair. The patient is getting chemotherapy for multiple myeloma. The patient denies any nausea, vomiting or abdominal pain, admitted for the same. There is a concern from the ER physician there was a GI source of the presentation; hence, we have consulted surgery. REVIEW OF SYSTEMS: CONSTITUTIONAL: Tired. HEENT: None. RESPIRATORY: Baseline some shortness of breath cardiovascular none. GASTROINTESTINAL: None. GENITOURINARY: None. MUSCULOSKELETAL: Aches and pains in different joints, including his presentation. DERMATOLOGICAL: None. HEMATOLOGIC: None. LYMPHATIC: None. PSYCHIATRY: None. NEUROLOGICAL: None. PAST MEDICAL HISTORY: COPD, chronic kidney disease stage 4, hypertension, hyperlipidemia, depression, metabolic acidosis, [place] light chain myeloma, chronic hypoxic respiratory failure from COPD. PAST SURGICAL HISTORY: Back surgery, lumbar fusion 1-1/2 years ago, breast implants in the 70s removed later on. SOCIAL HISTORY: , alcohol rarely. Smoked less than a pack a day for about 44 years, stopped in 2014. FAMILY HISTORY: Prostate cancer. Father is 99 years of age. He is still living. HOME MEDICATIONS: 1. Zantac 150 mg q.h.s. 2. Prednisone taper. 3. Demadex 5 mg p.o. daily. 4. Timoptic 1 drop to left eye b.i.d. 5. Sodium bicarb 650 mg b.i.d. 6. Zoloft 250 mg before lunch. 7. Revlimid 15 mg as directed. 8. Lantus 0.005% 1 drop to both eyes q.h.s. 9. DuoNeb q.i.d. 10.[place] 7.5 one tablet p.o. t.i.d. p.r.n. 11.Plavix 75 mg with lunch. 12.Symbicort 160/4.5, 2 puffs b.i.d. 13.Alphagan 0.2% 1 drop to both eyes b.i.d. 14.Acyclovir 400 mg p.o. daily. ALLERGIES: To CIPRO, CODEINE, SULFUR. EXAMINATION: Temperature 97, pulse 85, respirations 19, blood pressure 141/63, pulse ox 98% on room air. GENERAL APPEARANCE: Thin built, BMI 8, lying in bed, tired-appearing. EYES: Pupils equal. Conjunctivae pale. HEENT: External appearance of nose and ears normal. Oral cavity normal. NECK: JVD not raised. Mass not palpable. RESPIRATORY: Effort normal. LUNGS: Decreased breath sounds. CARDIOVASCULAR: First and second sounds normal. No edema. ABDOMEN: Soft, nontender. Liver, spleen not palpable. LYMPHATIC: No lymph nodes palpable in neck or axillae. PSYCHIATRY: Alert and oriented x3. Mood and affect normal. MUSCULOSKELETAL: Pain in the lower lumbar area just above the sacrum and it is worse with movement. INVESTIGATIONS: White count 6.8, hemoglobin 8.3, platelets 110. BUN 15, 3.53. Renal CT scan was done. ASSESSMENT: 1. Patient has acute lower back pain in the lower lumbar area, does not radiate anywhere, much more severe and sharp with movement, likely cleared from a combination of osteoarthritis, multiple myeloma and osteoporosis likely cause if the presentation. The patient's history is not compatible really with the gastrointestinal symptoms. 2. Chronic obstructive pulmonary disease in an ex-smoker. 3. Chronic kidney stage 4 from hypertensive nephrosclerosis. 4. Essential hypertension. 5. Hyperlipidemia. 6. [place] light chain myeloma involving the bones. 7. Depression, not otherwise specified. 8. Chronic hypoxic respiratory failure on home oxygen. 9. Rheumatoid arthritis. PLAN: I ordered a plain x-ray and CT scan of the lumbar spine. Will order a heating pad. Cannot give any NSAIDs because of renal function. Are was discussed with the patient. The patient's calcium is 6.9. We will get Physical Therapy involved. MMODL / IJN: [id number] /
[2017-08-04] MEDS: DEXTROSE 5%-0.45% NACL 1,000 ML IV SCH ×2 (04:18→17:15)
[2017-08-04] MEDS: IPRATROPIUM-ALBUTEROL 3 ML NEB INHALATION SCH ×4 (08:55→20:03)
[2017-08-04] MEDS: SYMBICORT 160-4.5 MCG INHALER INHALATION SCH ×2 (08:55→20:03)
[2017-08-04 09:03] LABS: Magnesium 1.7 mg/dL (1.6-2.3); Potassium 4.2 mmol/L (3.5-5.1)
[2017-08-04] MEDS: BRIMONIDINE TARTRATE 0.2% DROPS 5 ML BTL BOTH EYES SCH ×2 (09:10→20:28)
[2017-08-04] MEDS: TIMOLOL 0.5% OPHTH DROPS 5 ML BTL LEFT EYE SCH ×2 (09:10→20:29)
[2017-08-04 09:13] LABS: Basophils % (A) 0 %; Eosinophils # (A) 0.3 k/uL (0-0.7); Eosinophils % (A) 5 %; HCT 23.3 % (34.0-46.0); HGB 7.5 gm/dL (11.4-16.0); Lymphocytes # (A) 1.5 k/uL (1.0-4.8); Lymphocytes % (A) 26 %; MCH 31.1 pg (25.0-35.0); MCHC 32.2 g/dL (31.0-37.0); MCV 96.4 fL (80.0-100.0); Mean Platelet Volume 8.7; Monocytes # (A) 0.4 k/uL (0-1.0); Monocytes % (A) 7 %; Neutrophils # (A) 3.5 k/uL (1.3-7.7); Neutrophils % (A) 58 %; RBC 2.42 m/uL (3.80-5.40); RDW 15.6 % (11.5-15.5)
[2017-08-04] MEDS: HYDROmorphone 0.5 MG/0.5 ML SYRINGE IVP PRN ×2 (09:23→17:07)
[2017-08-04] MEDS ORDERED: LENALIDOMIDE 15 MG PO ONE (10:00)
[2017-08-04 10:24] LABS: Platelet Count 95 k/uL (150-450); Poikilocytosis (M) Present
--- NOTE | 2017-08-04 10:44 | P.GSCN ---
History of Present Illness Consult date: 08/04/17 Reason for Consult: Abdominal pain left flank pain History of present illness: Pleasant 66-year-old female who was diagnosed in March this year with multiple myeloma presented to the emergency room to be evaluated for left-sided flank pain radiating to the left abdominal wall onset 4-5 days prior. Patient stated on the day of admission to the emergency room the pain was unbearable activated the EMS system because she could not tolerate the pain. She stated movement seemed to make the pain worse. She described it as a sharp stabbing sensation. Patient holds her left flank area. As to the reference point stated that over the last several days she has been having frequent loose stools. She states she is on cycle 3 for her multiple myeloma. Stated that she thought that the frequent stools could be contributed to the chemotherapy. Patient states he does have a history of having kidney stones in the past feels that this pain is similar in nature. Nursing reports patient is able to ambulate from bed to the bathroom and patient states there is less discomfort Did note the patient does have CVA on the left side this tenderness abdomen is flat bowel tones present no guarding no tenderness patient gets teary-eyed she states she's concerned that there is a reoccurrence of her multiple myeloma. CT renal stones showed no obstructive uropathy caliber change of a small bowel the report indicates suggestive of a low-grade partial small bowel obstruction. Patient states that she has had no surgical procedures done on the abdomen not certain when she had a colonoscopy past surgical history lumbar fusion urine a half ago, bilateral breast implants removed in the EGD report reviewed done in April 2017 small sliding type hiatal hernia no evidence of esophagitis gastritis or peptic ulcer disease Review of Systems Essentially unremarkable except as mentioned in the present illness Past Medical History Past Medical History: COPD, CVA/TIA, Hyperlipidemia, Hypertension, Renal Disease , Rheumatoid Arthritis (RA) Additional Past Medical History / Comment(s): Bone CA, multiple myeloma,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 anxiety History of Any Multi-Drug Resistant Organisms: None Reported Past Surgical History: Back Surgery Additional Past Surgical History / Comment(s): LUMBAR FUSION 1.5 YRS AGO, BREAST IMPLANTS IN THE 'S REMOVED MID 90'S Past Anesthesia/Blood Transfusion Reactions: No Reported Reaction Smoking Status: Former smoker - Past Family History Father Additional Family Medical History / Comment(s): FATHER 99 YRS OLD STILL LIVING HAS PROSTATE ISSUES Mother Family Medical History: Cancer Additional Family Medical History / Comment(s): LUNG CANCER Medications and Allergies Home Medications Medication Instructions Recorded Confirmed Type Clopidogrel [Plavix] 75 mg PO AC-LUNCH 01/28/17 08/03/17 History Latanoprost Ophth [Xalatan 0.005%] 1 drops BOTH EYES HS 01/28/17 08/03/17 History Sertraline [Zoloft] 200 mg PO AC-LUNCH 01/28/17 08/03/17 History Brimonidine Tartrate [Alphagan P 1 drops BOTH EYES BID 04/05/17 08/03/17 History 0.2% Ophth Soln] Acyclovir 400 mg PO DAILY 05/24/17 08/03/17 History Lenalidomide [Revlimid] 15 mg PO DIRECTED 05/24/17 08/03/17 History Ranitidine HCl [Zantac] 150 mg PO HS 05/24/17 08/03/17 History Ipratropium-Albuterol Nebulize 3 ml INHALATION RT-QID #90 05/29/17 08/03/17 Rx [Duoneb 0.5 mg-3 mg/3 ml Soln] ampul.neb Sodium Bicarbonate Tab 650 mg PO BID #60 tab 05/29/17 08/03/17 Rx Torsemide [Demadex] 5 mg PO DAILY #30 tablet 05/29/17 08/03/17 Rx HYDROcodone/APAP 7.5-325MG [[place] 1 tab PO TID PRN 07/05/17 08/03/17 History 7.5-325] Budesonide-Formot 160-4.5 Mcg 2 puff INHALATION BID #1 inhaler 07/07/17 Rx [Symbicort 160-4.5 Mcg Inhaler] predniSONE See Taper PO DAILY #30 tab 07/07/17 08/03/17 Rx Timolol 0.5% Ophth Soln [Timoptic 1 drop LEFT EYE BID 08/03/17 08/03/17 History 0.5% Ophth Soln] Allergies Allergy/AdvReac Type Severity Reaction Status Date / Time ciprofloxacin HCl Allergy Lip Verified 08/03/17 18:41 [From Cipro] swelling, itching codeine Allergy Unknown Verified 08/03/17 18:41 Sulfa (Sulfonamide Allergy Unknown Verified 08/03/17 18:41 Antibiotics) Surgical - Exam Vital Signs Temp Pulse Resp BP Pulse Ox 97.0 F L 85 19 141/63 98 08/03/17 16:35 08/03/17 16:35 08/03/17 16:35 08/03/17 16:35 08/03/17 16:35 GENERAL APPEARANCE: Pleasant 66-year-old female patient is alert, oriented, in no acute distress. States the left flank pain improving VITAL SIGNS: Reviewed HEENT: Head is normocephalic and atraumatic. Pupils are equal and reactive. The nares are patent. Oropharynx is clear without lesions. NECK: Supple without lymphadenopathy. Traches midline. HEART: S1, S2. Regular rate and rhythm. Denying chest pain LUNGS: No crackles or wheezes are heard. Adequate air bilaterally no cough noted no shortness of breath ABDOMEN: Soft, mild tenderness to the left flank area, nondistended with good bowel sounds. No peritoneal signs. No palpable organomegaly or masses. States having loose stools EXTREMITIES: Normal skin color and turgor. No cyanosis, rash, ulceration, clubbing or edema. Radial pedal pulses are 2/4 bilaterally. NEUROLOGICAL: No focal deficits. Strength and sensation are grossly intact. Results - Labs 08/04/17 08:35 08/04/17 08:35 Abnormal Lab Results - Last 24 Hours (Table) 08/03/17 08/03/17 08/03/17 Range/Units 16:46 16:46 19:30 RBC 2.73 L (3.80-5.40) m/uL Hgb 8.3 L (11.4-16.0) gm/dL Hct 25.7 L (34.0-46.0) % RDW 15.7 H (11.5-15.5) % Plt Count 110 L D (150-450) k/uL Chloride 111 H (98-107) mmol/L Carbon Dioxide 16 L (22-30) mmol/L BUN 50 H (7-17) mg/dL Creatinine 3.53 H (0.52-1.04) mg/dL Calcium 6.9 L (8.4-10.2) mg/dL Urine Protein 1+ H (Negative) Urine Glucose (UA) 2+ H (Negative) Urine Blood Moderate H (Negative) Urine RBC 42 H (0-5) /hpf Urine Mucus Rare H (None) /hpf 08/04/17 08/04/17 Range/Units 08:35 08:35 RBC 2.42 L (3.80-5.40) m/uL Hgb 7.5 L (11.4-16.0) gm/dL Hct 23.3 L (34.0-46.0) % RDW 15.6 H (11.5-15.5) % Plt Count (150-450) k/uL Chloride 114 H (98-107) mmol/L Carbon Dioxide 17 L (22-30) mmol/L BUN 50 H (7-17) mg/dL Creatinine 3.41 H (0.52-1.04) mg/dL Calcium 6.0 L* (8.4-10.2) mg/dL Urine Protein (Negative) Urine Glucose (UA) (Negative) Urine Blood (Negative) Urine RBC (0-5) /hpf Urine Mucus (None) /hpf Diabetes panel 08/03/17 08/04/17 Range/Units 16:46 08:35 Sodium 144 144 (137-145) mmol/L Potassium 4.1 4.2 (3.5-5.1) mmol/L Chloride 111 H 114 H (98-107) mmol/L Carbon Dioxide 16 L 17 L (22-30) mmol/L BUN 50 H 50 H (7-17) mg/dL Creatinine 3.53 H 3.41 H (0.52-1.04) mg/dL Glucose 95 78 (74-99) mg/dL Calcium 6.9 L 6.0 L* (8.4-10.2) mg/dL Calcium panel 08/03/17 08/04/17 Range/Units 16:46 08:35 Calcium 6.9 L 6.0 L* (8.4-10.2) mg/dL Pituitary panel 08/03/17 08/04/17 Range/Units 16:46 08:35 Sodium 144 144 (137-145) mmol/L Potassium 4.1 4.2 (3.5-5.1) mmol/L Chloride 111 H 114 H (98-107) mmol/L Carbon Dioxide 16 L 17 L (22-30) mmol/L BUN 50 H 50 H (7-17) mg/dL Creatinine 3.53 H 3.41 H (0.52-1.04) mg/dL Glucose 95 78 (74-99) mg/dL Calcium 6.9 L 6.0 L* (8.4-10.2) mg/dL Adrenal panel 08/03/17 08/04/17 Range/Units 16:46 08:35 Sodium 144 144 (137-145) mmol/L Potassium 4.1 4.2 (3.5-5.1) mmol/L Chloride 111 H 114 H (98-107) mmol/L Carbon Dioxide 16 L 17 L (22-30) mmol/L BUN 50 H 50 H (7-17) mg/dL Creatinine 3.53 H 3.41 H (0.52-1.04) mg/dL Glucose 95 78 (74-99) mg/dL Calcium 6.9 L 6.0 L* (8.4-10.2) mg/dL Assessment and Plan Assessment: Impression Present on admission left-sided flank back pain radiating to abdomen onset 4 days prior History of multiple myeloma diagnosed March 2017 cycle 3 chemotherapy Present on admission frequent loose stools unclear etiology Present on admission anemia suspect from chronic illness CAT scan renal show no obstructive uropathy suggestive of possible low-grade small bowel partial obstruction Hypocalcemia present on admission suspect due to malignancy Chronic renal failure stage III Plan No evidence of an acute surgical abdomen at this time Keep nothing by mouth with IV fluid We'll repeat an abdominal x-ray in the morning IV fluid as ordered Pain control per the attending Repeat labs in the morning Will follow with you with further recommendations Surgical consultation note dictated for Dr. rodas The above impression and plan of care have been discussed and directed by signing physician. Flora Sutton nurse practitioner acting as scribe for signing physician.
[2017-08-04 10:54] VITALS: BMI 18.0
[2017-08-04] MEDS: CLOPIDOGREL 75 MG TAB PO SCH (15:00)
[2017-08-04] MEDS: SODIUM BICARBONATE TAB 650 MG TAB PO SCH ×3 (15:00→21:38)
[2017-08-04] MEDS: ACYCLOVIR 200 MG CAP PO SCH (15:01)
[2017-08-04] MEDS: TORSEMIDE 20 MG TAB PO SCH (15:01)
[2017-08-04] MEDS: SERTRALINE 100 MG TAB PO SCH (15:01)
[2017-08-04] MEDS ORDERED: CYCLOBENZAPRINE 10 MG TAB PO PRN (16:23)
--- NOTE | 2017-08-04 16:27 | P.CONS ---
History of Present Illness - Reason for Consult Consult date: 08/04/17 Intractable back pain. Multiple myeloma - History of Present Illness Ms Coleman is a pleasant white female, initially seen in consult at [facility] on 04/07/17. The patient had come in with complaints of not feeling well over the last 4-6 weeks, decreased appetite, decreased endurance, as well as nausea off and on. She had lost about 8-10 pounds during that time and was complaining of increased bone pain in the bilateral rib area. In the emergency room she was found to have increase in creatinine to 2.9 (baseline around 2), with calcium elevated at 13.4 as well as anemia. Labs ordered by nephrology as an outpatient on 03/31/17 had shown a markedly elevated Light chain at 4900 mg/dL with lambda light chains normal. Protein electrophoresis had been negative. The patient was treated with IV hydration and IV bisphosphonate with improvement in her calcium as well as partial improvement in renal function. She did require a blood transfusion for decline in hemoglobin. The patient then underwent a bone marrow aspiration biopsy in 04/11/17 and a subsequently discharged. The biopsy came back positive for myeloma, with monoclonal plasma cells occupying about 60% of the marrow elements. Cytogenetics were normal. a bone survey was negative for lytic lesions other than in the left upper humerus which had a moth-eaten appearance. 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 she was seen for her first office visit on 05/03/17. She was started on Rev/ Velcade/Dex and is s/p 4 cycles The patient was recently seen in the office, when she was noted to be tolerating the regimen well. He has some chronic mild to moderate back pain. However about 4 days prior to this admission she developed pain in the lower mid back. This became progressively severe, quite rapidly. Some radiation of the pain down the lower extremities. If progressive symptoms that her pain had become intractable, the patient came into the emergency room and was admitted. The patient had a renal dose computed tomography scan done, which did not show any evidence of organomegaly or hemorrhage. Myeloma type lesions were noted in the visualized skeletal structures. Consult was placed for further evaluation and recommendations Review of Systems Constitutional: Reports fatigue, Reports weakness, Reports weight loss Eyes: denies blurred vision, denies pain Ears: deny: decreased hearing, ear discharge, earache, tinnitus Ears, nose, mouth and throat: Denies headache, Denies sore throat Cardiovascular: Reports decreased exercise tolerance Respiratory: Denies cough Gastrointestinal: Denies abdominal pain, Denies diarrhea, Denies nausea, Denies vomiting Genitourinary: Denies dysuria, Denies hematuria Menstruation: Reports postmenopausal Musculoskeletal: Reports hot joints, Reports low back pain Integumentary: Denies pruritus, Denies rash Neurological: Denies numbness, Denies weakness Psychiatric: Denies anxiety, Denies depression Endocrine: Denies fatigue, Denies weight change Hematologic/Lymphatic: Reports as per HPI Past Medical History Past Medical History: COPD, CVA/TIA, Hyperlipidemia, Hypertension, Renal Disease , Rheumatoid Arthritis (RA) Additional Past Medical History / Comment(s): Bone CA, multiple myeloma,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 anxiety History of Any Multi-Drug Resistant Organisms: None Reported Past Surgical History: Back Surgery Additional Past Surgical History / Comment(s): LUMBAR FUSION 1.5 YRS AGO, BREAST IMPLANTS IN THE 70'S REMOVED MID 'S Past Anesthesia/Blood Transfusion Reactions: No Reported Reaction Smoking Status: Former smoker - Past Family History Father Additional Family Medical History / Comment(s): FATHER 99 YRS OLD STILL LIVING HAS PROSTATE ISSUES Mother Family Medical History: Cancer Additional Family Medical History / Comment(s): LUNG CANCER Medications and Allergies Home Medications Medication Instructions Recorded Confirmed Type Clopidogrel [Plavix] 75 mg PO AC-LUNCH 01/28/17 08/03/17 History Latanoprost Ophth [Xalatan 0.005%] 1 drops BOTH EYES HS 01/28/17 08/03/17 History Sertraline [Zoloft] 200 mg PO AC-LUNCH 01/28/17 08/03/17 History Brimonidine Tartrate [Alphagan P 1 drops BOTH EYES BID 04/05/17 08/03/17 History 0.2% Ophth Soln] Acyclovir 400 mg PO DAILY 05/24/17 08/03/17 History Lenalidomide [Revlimid] 15 mg PO DIRECTED 05/24/17 08/03/17 History Ranitidine HCl [Zantac] 150 mg PO HS 05/24/17 08/03/17 History Ipratropium-Albuterol Nebulize 3 ml INHALATION RT-QID #90 05/29/17 08/03/17 Rx [Duoneb 0.5 mg-3 mg/3 ml Soln] ampul.neb Sodium Bicarbonate Tab 650 mg PO BID #60 tab 05/29/17 08/03/17 Rx Torsemide [Demadex] 5 mg PO DAILY #30 tablet 05/29/17 08/03/17 Rx HYDROcodone/APAP 7.5-325MG [[place] 1 tab PO TID PRN 07/05/17 08/03/17 History 7.5-325] Budesonide-Formot 160-4.5 Mcg 2 puff INHALATION BID #1 inhaler 07/07/17 Rx [Symbicort 160-4.5 Mcg Inhaler] predniSONE See Taper PO DAILY #30 tab 07/07/17 08/03/17 Rx Timolol 0.5% Ophth Soln [Timoptic 1 drop LEFT EYE BID 08/03/17 08/03/17 History 0.5% Ophth Soln] Allergies Allergy/AdvReac Type Severity Reaction Status Date / Time ciprofloxacin HCl Allergy Lip Verified 08/03/17 18:41 [From Cipro] swelling, itching codeine Allergy Unknown Verified 08/03/17 18:41 Sulfa (Sulfonamide Allergy Unknown Verified 08/03/17 18:41 Antibiotics) Physical Exam Vitals: Vital Signs Temp Pulse Pulse Resp BP BP Pulse Ox 08/04/17 11:57 74 16 08/04/17 11:45 78 16 08/04/17 09:10 77 16 08/04/17 08:57 78 16 08/04/17 08:00 78 16 08/04/17 05:00 97.8 F 78 16 129/59 97 08/03/17 23:20 16 08/03/17 21:15 98.1 F 72 16 133/60 96 08/03/17 20:34 97.6 F 77 16 159/66 95 08/03/17 19:48 97.9 F 68 17 139/63 97 08/03/17 18:15 82 20 132/62 99 08/03/17 16:35 97.0 F L 85 19 141/63 98 Intake and Output 08/03/17 08/04/17 08/04/17 22:59 06:59 14:59 Intake Total 0 Balance 0 Intake: Oral 0 Other: # Voids 1 Weight 47.627 kg 47.627 kg 47.627 kg - Constitutional General appearance: no acute distress - EENT Eyes: EOMI, PERRLA ENT: hearing grossly normal, normal oropharynx - Neck Neck: no lymphadenopathy Thyroid: bilateral: normal size - Respiratory Respiratory: bilateral: CTA - Cardiovascular Rhythm: regular Heart sounds: normal: S1, S2 - Gastrointestinal General gastrointestinal: normal bowel sounds, soft - Integumentary Integumentary: normal - Neurologic Neurologic: CNII-XII intact - Musculoskeletal Marked tenderness to palpation around level of L5, slightly to the left of median Musculoskeletal: strength equal bilaterally - Psychiatric Psychiatric: A&O x's 3, appropriate affect, intact judgment & insight Results CBC & Chem 7: 08/04/17 08:35 08/04/17 08:35 Labs: Abnormal Lab Results - Last 24 Hours (Table) 08/03/17 08/03/17 08/03/17 Range/Units 16:46 16:46 19:30 RBC 2.73 L (3.80-5.40) m/uL Hgb 8.3 L (11.4-16.0) gm/dL Hct 25.7 L (34.0-46.0) % RDW 15.7 H (11.5-15.5) % Plt Count 110 L D (150-450) k/uL Chloride 111 H (98-107) mmol/L Carbon Dioxide 16 L (22-30) mmol/L BUN 50 H (7-17) mg/dL Creatinine 3.53 H (0.52-1.04) mg/dL Calcium 6.9 L (8.4-10.2) mg/dL Urine Protein 1+ H (Negative) Urine Glucose (UA) 2+ H (Negative) Urine Blood Moderate H (Negative) Urine RBC 42 H (0-5) /hpf Urine Mucus Rare H (None) /hpf 18 08/04/17 Range/Units 08:35 08:35 RBC 2.42 L (3.80-5.40) m/uL Hgb 7.5 L (11.4-16.0) gm/dL Hct 23.3 L (34.0-46.0) % RDW 15.6 H (11.5-15.5) % Plt Count 95 L (150-450) k/uL Chloride 114 H (98-107) mmol/L Carbon Dioxide 17 L (22-30) mmol/L BUN 50 H (7-17) mg/dL Creatinine 3.41 H (0.52-1.04) mg/dL Calcium 6.0 L* (8.4-10.2) mg/dL Urine Protein (Negative) Urine Glucose (UA) (Negative) Urine Blood (Negative) Urine RBC (0-5) /hpf Urine Mucus (None) /hpf CT scan - abdomen: report reviewed Assessment and Plan (1) Intractable low back pain Narrative/Plan: The patient came in due to acute onset of severe low mid back pain. On examination, there is definite area of tenderness around the L5. This was discussed extensively with the admitting service and the orthopedic service. Based on her history, there is suspicion for a compression fracture due to myeloma and osteoporosis. - Pain is currently controlled on Dilaudid every 4 hours or so. - Start steroids for better pain control - Case discussed in internal medicine and orthopedic service. Consult was placed to Ortho spine who will the patient for additional interventions. Defer to them regarding ordering of any additional imaging - Depending on her response and appearance of the affected area, there may be a role for radiation for palliation. Current Visit: Yes Status: Acute Code(s): M54.5 - LOW BACK PAIN SNOMED Code(s): [id number] (2) [place] light chain myeloma Narrative/Plan: The patient is currently on aggressive induction therapy with the RVD regimen. She is tolerating it relatively well so far. She she was to have the last dose of Velcade from cycle 4 as well as her scheduled dose of Zometa, today. Upcoming week is her week off. She will continue follow-up in the outpatient setting. Current Visit: No Status: Acute Priority: High Code(s): C90.00 - MULTIPLE MYELOMA NOT HAVING ACHIEVED REMISSION SNOMED Code(s): 174713779
--- NOTE | 2017-08-04 16:28 | P.CNOR ---
<ToddbuzzBozena Bev - Last Filed: 08/04/17 16:58> History of Present Illness - HPI Consult date: 08/04/17 Requesting physician: Efren Larson Consult reason: low back pain History of present illness: The patient is a 66 y/o female that presented to the hospital with severe low back pain. She has a history of multiple myeloma, COPD, RA, hypertension, hyperlipidemia, and chronic kidney disease. We were consulted for evaluation of her back pain. She states the low back pain started 4 days ago but become more severe yesterday. The patient does have a history of lumbar fusion by a surgeon at [place] 2 years ago. The pain is located on the left lower back and radiates into the buttock area. She states her legs feel weak. She denies numbness or tingling in her legs. 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 anxiety History of Any Multi-Drug Resistant Organisms: None Reported Past Surgical History: Back Surgery Additional Past Surgical History / Comment(s): LUMBAR FUSION 1.5 YRS AGO, BREAST IMPLANTS IN THE 70'S REMOVED MID 90'S Past Anesthesia/Blood Transfusion Reactions: No Reported Reaction Smoking Status: Former smoker - Past Family History Father Additional Family Medical History / Comment(s): FATHER 99 YRS OLD STILL LIVING HAS PROSTATE ISSUES Mother Family Medical History: Cancer Additional Family Medical History / Comment(s): LUNG CANCER Medications and Allergies Home Medications Medication Instructions Recorded Confirmed Type Clopidogrel [Plavix] 75 mg PO AC-LUNCH 01/28/17 08/03/17 History Latanoprost Ophth [Xalatan 0.005%] 1 drops BOTH EYES HS 01/28/17 08/03/17 History Sertraline [Zoloft] 200 mg PO AC-LUNCH 01/28/17 08/03/17 History Brimonidine Tartrate [Alphagan P 1 drops BOTH EYES BID 04/05/17 08/03/17 History 0.2% Ophth Soln] Acyclovir 400 mg PO DAILY 05/24/17 08/03/17 History Lenalidomide [Revlimid] 15 mg PO DIRECTED 05/24/17 08/03/17 History Ranitidine HCl [Zantac] 150 mg PO HS 05/24/17 08/03/17 History Ipratropium-Albuterol Nebulize 3 ml INHALATION RT-QID #90 05/29/17 08/03/17 Rx [Duoneb 0.5 mg-3 mg/3 ml Soln] ampul.neb Sodium Bicarbonate Tab 650 mg PO BID #60 tab 05/29/17 08/03/17 Rx Torsemide [Demadex] 5 mg PO DAILY #30 tablet 05/29/17 08/03/17 Rx HYDROcodone/APAP 7.5-325MG [Callao 1 tab PO TID PRN 07/05/17 08/03/17 History 7.5-325] Budesonide-Formot 160-4.5 Mcg 2 puff INHALATION BID #1 inhaler 07/07/17 Rx [Symbicort 160-4.5 Mcg Inhaler] predniSONE See Taper PO DAILY #30 tab 07/07/17 08/03/17 Rx Timolol 0.5% Ophth Soln [Timoptic 1 drop LEFT EYE BID 08/03/17 08/03/17 History 0.5% Ophth Soln] Allergies Allergy/AdvReac Type Severity Reaction Status Date / Time ciprofloxacin HCl Allergy Lip Verified 08/03/17 18:41 [From Cipro] swelling, itching codeine Allergy Unknown Verified 08/03/17 18:41 Sulfa (Sulfonamide Allergy Unknown Verified 08/03/17 18:41 Antibiotics) Results - Labs Labs: Abnormal Lab Results - Last 24 Hours (Table) 08/03/17 08/03/17 08/03/17 Range/Units 16:46 16:46 19:30 RBC 2.73 L (3.80-5.40) m/uL Hgb 8.3 L (11.4-16.0) gm/dL Hct 25.7 L (34.0-46.0) % RDW 15.7 H (11.5-15.5) % Plt Count 110 L D (150-450) k/uL Chloride 111 H (98-107) mmol/L Carbon Dioxide 16 L (22-30) mmol/L BUN 50 H (7-17) mg/dL Creatinine 3.53 H (0.52-1.04) mg/dL Calcium 6.9 L (8.4-10.2) mg/dL Urine Protein 1+ H (Negative) Urine Glucose (UA) 2+ H (Negative) Urine Blood Moderate H (Negative) Urine RBC 42 H (0-5) /hpf Urine Mucus Rare H (None) /hpf 08/04/17 08/04/17 Range/Units 08:35 08:35 RBC 2.42 L (3.80-5.40) m/uL Hgb 7.5 L (11.4-16.0) gm/dL Hct 23.3 L (34.0-46.0) % RDW 15.6 H (11.5-15.5) % Plt Count 95 L (150-450) k/uL Chloride 114 H (98-107) mmol/L Carbon Dioxide 17 L (22-30) mmol/L BUN 50 H (7-17) mg/dL Creatinine 3.41 H (0.52-1.04) mg/dL Calcium 6.0 L* (8.4-10.2) mg/dL Urine Protein (Negative) Urine Glucose (UA) (Negative) Urine Blood (Negative) Urine RBC (0-5) /hpf Urine Mucus (None) /hpf H & H 08/03/17 08/04/17 Range/Units 16:46 08:35 Hgb 8.3 L 7.5 L (11.4-16.0) gm/dL Hct 25.7 L 23.3 L (34.0-46.0) % Result Diagrams: 08/04/17 08:35 08/04/17 08:35 Assessment and Plan (1) Intractable low back pain Current Visit: Yes Status: Acute Code(s): M54.5 - LOW BACK PAIN SNOMED Code(s): 63450408137667884 (2) [place] light chain myeloma Current Visit: No Status: Acute Priority: High Code(s): C90.00 - MULTIPLE MYELOMA NOT HAVING ACHIEVED REMISSION SNOMED Code(s): 091523378 Plan: IV [id number] May order MRI tomorrow if she does not improve after a few doses of steriods <Iftikhar Dang - Last Filed: 08/04/17 20:07> Physical Examination Osteopathic Statement: *. No significant issues noted on an osteopathic structural exam other than those noted in the History and Physical/Consult. Results - Labs Labs: Abnormal Lab Results - Last 24 Hours (Table) 08/04/17 08/04/17 Range/Units 08:35 08:35 RBC 2.42 L (3.80-5.40) m/uL Hgb 7.5 L (11.4-16.0) gm/dL Hct 23.3 L (34.0-46.0) % RDW 15.6 H (11.5-15.5) % Plt Count 95 L (150-450) k/uL Chloride 114 H (98-107) mmol/L Carbon Dioxide 17 L (22-30) mmol/L BUN 50 H (7-17) mg/dL Creatinine 3.41 H (0.52-1.04) mg/dL Calcium 6.0 L* (8.4-10.2) mg/dL H & H 08/03/17 08/04/17 Range/Units 16:46 08:35 Hgb 8.3 L 7.5 L (11.4-16.0) gm/dL Hct 25.7 L 23.3 L (34.0-46.0) % Result Diagrams: 08/04/17 08:35 08/04/17 08:35 Assessment and Plan Plan: the patient is seen and examined today at bedside. I was able to discuss the case with Bozena Fine and I reviewed the H&P as above. I am in agreement with the above-stated H&P. The patient had prior surgery at her low back and L5-S1 approximately [address] Johnson at [place]. She says at that well. She says that over the past 4 days she has been having worsening pain in her low back. She denies any specific trauma or incident. She's not having numbness tingling or weakness in her lower extremities. She is not having any bowel incontinence. She was started on some pain medication and steroids and she may be feeling slightly better this evening. She is wondering if she'll be able to go home tomorrow. On exam she is alert and oriented 3. Her lower extremity is have full active and passive range of motion. She is nontender to palpation over her lower back though she is somewhat slow in motion when she sits up. Abdomen soft. Her incisions are well-healed and her lower back. Her x-rays are reviewed which show well healed L5-S1 posterior spinal fusion with interbody fusion. There is some mild vertebral height loss at L4 about 5% height loss. I reviewed the computed tomography scan from a few days ago and there is no obvious fracture area there are some spots of lytic areas representing the myeloma. I discussed the patient's pain issues with her at bedside. We will see if she has some improvement with her steroid and pain medication. It is okay for her to mobilize. She does have an LSO brace at home from her prior surgery and I have asked her to try to obtain the brace or go ahead and use it when she gets home when she is out of bed to help control some of her pain. She would like to see if her symptoms continue to improve with conservative management. I discussed possibility of getting an MRI but she would like to try to hold off on an MRI if she is able. I think that is reasonable. From an orthopedic spine standpoint it is okay for him to be discharged home when she is comfortable with her medication and ambulation. I do not have a plan for acute surgical intervention on this admitted and she may follow up on an outpatient basis in the next 1-2 weeks to see how she is doing. If she is not having any significant benefit we can obtain an MRI then to further determine the possibility of acute or pathologic fracture as well as further intervention is necessary. I discussed this with her answered her questions and she is agreeable.
[2017-08-04] MEDS: methylPREDNISolone SOD SUCCI 125 MG/2 ML VIAL IV SCH ×2 (17:09→23:39)
--- NOTE | 2017-08-04 19:34 | XR ---
EXAMINATION TYPE: XR lumbosacral spine min 4V DATE OF EXAM: 08/04/2017 CLINICAL HISTORY: Left-sided pain. TECHNIQUE: Frontal, lateral, and oblique images of the lumbar spine are obtained. COMPARISON: CT renal stones from yesterday FINDINGS: There are 5 lumbar type vertebral bodies identified. There is transitional 6 type lumbar v ertebra. Osseous structures are demineralized. The lumbar spine redemonstrates dextroconvex scolioti c curvature centered mid lumbar spine without evidence of acute fracture or dislocation. Posterior in terpedicular rods and screws transfix L5-L6 level bilaterally. Artificial disc material at this level is seen. Calcified disc L1-L2 level is redemonstrated. Left-sided renal calculi are again seen. Vert ebral body heights and disc space heights above L5 level are felt satisfactory. Vascular calcificatio n of overlying aorta is present. Lytic lesions are seen better on CT for reference anterior right L1 lesion sagittal image 40. IMPRESSION: As above.
[2017-08-04] MEDS: FAMOTIDINE 20 MG TAB PO SCH (20:27)
[2017-08-04] MEDS: LATANOPROST 0.005% OPHTH DROPS 2.5 ML BTL BOTH EYES SCH (20:29)
--- NOTE | 2017-08-04 21:49 | PN ---
PROGRESS NOTE DATE OF SERVICE: 08/04/2017 PRESENTING COMPLAINT: Acute low back pain. INTERVAL HISTORY: This is a patient who is being treated for multiple myeloma, presented with acute low back pain felt to be more musculoskeletal. Of course, the possibility of multiple myeloma itself causing the symptoms was present. The patient's pain is better controlled today compared to yesterday. Did tolerate a diet. REVIEW OF SYSTEMS: Done for constitutional, cardiovascular, GI, pulmonary, musculoskeletal; relevant findings as above. CURRENT MEDICATIONS: Reviewed that include Solu-Medrol. EXAMINATION: Temperature 97.8, pulse 82, respirations blood pressure 135/60, pulse ox 96% on room air. GENERAL APPEARANCE: Sitting up, more comfortable. EYES: Pupils equal, conjunctivae normal. HEENT: External appearance of nose and ears normal. Oral cavity normal. NECK: JVD not raised. Mass not palpable. RESPIRATORY: Effort normal. LUNGS: Decreased breath sounds. CARDIOVASCULAR: First and second sounds normal. No edema. ABDOMEN: Soft nontender. Liver, spleen not palpable. PSYCHIATRY: Alert and oriented x3. Mood and affect were normal. MUSCULOSKELETAL: Lower lumbar area mild tenderness. INVESTIGATIONS: White count 6, hemoglobin 7.5, platelets 95. Potassium 4.2, bicarb 17, BUN 50, creatinine 3.41, calcium 6. Lumbar spine x-ray shows some osteoporosis and some osteoarthritic changes. ASSESSMENT: 1. Acute lumbar area pain. No obvious fracture noted, possibly from osteoarthritis; less likely, though possibly from multiple myeloma involvement by itself. 2. Chronic obstructive pulmonary disease in an ex-smoker. 3. Chronic kidney disease stage 4 from hypertensive nephrosclerosis and multiple myeloma. 4. Essential hypertension. 5. Hyperlipidemia. 6. [place] light chain myeloma involving the bones. 7. Depression, not otherwise specified. 8. Chronic hypoxic respiratory failure on home oxygen. 9. Rheumatoid arthritis. PLAN: I had a lengthy talk with Dr. Larson. Consultation was made with Dr. Dang with whom also I had discussed. Earlier in the day, I discussed with the patient and a friend who was present. The patient is overall doing better. The patient has a lumbar support and K- pad. Activity is to be encouraged at this point, most likely will proceed with a conservative management, as patient is already responding to the current treatment plan. We will check ionized calcium in the morning. Total time spent today was about 40 minutes with over 25 minutes of discussion. MMODL / IJN: [id number] /
[2017-08-04 22:18] VITALS: RESP 16
[2017-08-05] MEDS ORDERED: methylPREDNISolone SOD SUCCI 125 MG/2 ML VIAL IV SCH
[2017-08-05] MEDS: HYDROmorphone 0.5 MG/0.5 ML SYRINGE IVP PRN (06:14)
[2017-08-05 06:34] VITALS: BP 141/61; TEMP 97.7
[2017-08-05] MEDS: SYMBICORT 160-4.5 MCG INHALER INHALATION SCH (07:40)
[2017-08-05] MEDS: IPRATROPIUM-ALBUTEROL 3 ML NEB INHALATION SCH ×2 (07:41→11:16)
--- NOTE | 2017-08-05 07:52 | XR ---
EXAMINATION TYPE: XR abdomen 2V DATE OF EXAM: 08/05/2017 HISTORY: Pain. Technique: 2 views of the abdomen are submitted. Comparison: None. Findings: There is no convincing evidence of pneumoperitoneum. The Bowel gas pattern is nonspecific and nonobstructive. No sizable air-fluid levels are seen. No mass effects are noted. Left renal calculus noted measuring 8.5 mm. IMPRESSION: 1. Nonspecific nonobstructive bowel gas pattern
[2017-08-05] MEDS: TIMOLOL 0.5% OPHTH DROPS 5 ML BTL LEFT EYE SCH (08:09)
[2017-08-05] MEDS: methylPREDNISolone SOD SUCCI 125 MG/2 ML VIAL IV SCH (08:10)
[2017-08-05] MEDS: BRIMONIDINE TARTRATE 0.2% DROPS 5 ML BTL BOTH EYES SCH (08:10)
[2017-08-05] MEDS: ACYCLOVIR 200 MG CAP PO SCH (08:11)
[2017-08-05] MEDS: SODIUM BICARBONATE TAB 650 MG TAB PO SCH ×2 (08:11→12:38)
[2017-08-05] MEDS: TORSEMIDE 20 MG TAB PO SCH (08:12)
[2017-08-05] MEDS ORDERED: LENALIDOMIDE 15 MG PO ONE (09:00)
--- NOTE | 2017-08-05 09:36 | P.PN ---
Progress Note - Text Progress Note Date: 08/05/17 Patient is seen and examined today at bedside. She still having some back pain but she feels that it has made some improvement. She has been able to mobilize and ambulate around the halls. On exam she is alert and oriented 3 she is afebrile Abdomen soft nontender There is some paravertebral spasm in her low back. Her incisions are well- healed. There is no point tenderness or crepitus. She had a computed tomography scan of her abdomen pelvis August 01.-I have been able to review these images and visualized the skeletal structures. I do not see obvious new fracture. There is a lytic lesion at L1 likely relating to multiple myeloma. She has prior fusion at L5-S1 which appears stable. I do not see evidence of acute new fracture on the computed tomography scan. A new computed tomography scan was ordered for today but I I think that we can forego that new scan given the ability to visualize the osseous structures from the computed tomography scan a few days ago. Assessment and plan Low back pain History multiple myeloma with lytic lesion at L1 History of prior spinal fusion L5-S1 approximately 2 years ago done at [place] It is difficult to fully discern her origin of her back pain. I do not see an obvious new fracture at this point. She has an LSO brace at home and I think she should use this for conservative treatment for her back pain. If she were to have a fracture the brace would be useful as well. I do not plan surgical intervention at this point. If she continues to have pain I think that an MRI scan of her lumbar spine would be more effective to delineate the possibility of new fracture or other process at her lumbar spine. At this point she declines to go through with a MRI. I think that she is okay from an orthopedic spine standpoint for discharge to home with follow-up in approximately 2 weeks as an outpatient. She should continue her medical management for pain as per medicine.
--- NOTE | 2017-08-05 10:37 | P.PN ---
Subjective Progress Note Date: 08/05/17 Patient is a 66-year-old female who had ileus. Yesterday she had abdominal pain. Now her abdominal pain is completely resolved. She is tolerated liquids. She's pass flatus. No bowel movements. No nausea or vomiting. Objective - Vital Signs Vital signs: Vital Signs Temp 97.7 F 08/05/17 05:45 Pulse 75 08/05/17 08:15 Resp 16 08/05/17 08:15 BP 141/61 08/05/17 05:45 Pulse Ox 99 08/05/17 05:45 Intake & Output 08/04/17 08/05/17 08/05/17 18:59 06:59 18:59 Intake Total 590 Balance 590 Weight 47.627 kg Intake: Oral 590 Other: Voiding Method Toilet Toilet # Voids 1 1 - Exam GENERAL: Well developed and in no acute distress. Pleasant. HEENT: No sclera icterus. Extraocular movements grossly intact. Moist buccal mucosa. Head is atraumatic, normocephalic. Hears conversational speech. No nasal drainage. NECK: Supple without lymphadenopathy. No JV distention. CHEST: Non-labored respirations and equal bilateral excursions. CARDIOVASCULAR: Regular rate and rhythm. Palpable 2+ radial pulses. ABDOMEN: Soft, nontender. Nondistended. MUSCULOSKELETAL: No clubbing, cyanosis or edema. NEUROLOGIC: No focal or lateralizing signs. PSYCH: Appropriate affect. Alert and oriented to person, place and time. SKIN: Good skin turgor. Well perfused. - Labs CBC & Chem 7: 08/04/17 08:35 08/04/17 08:35 Labs: Abnormal Lab Results - Last 24 Hours (Table) 08/05/17 Range/Units 06:49 Ionized Calcium [place] 3.7 L (4.5-5.3) mg/dL Assessment and Plan (1) Abdominal pain Current Visit: Yes Status: Acute Code(s): R10.9 - UNSPECIFIED ABDOMINAL PAIN SNOMED Code(s): 50958886 (2) Ileus Current Visit: Yes Status: Acute Code(s): K56.7 - ILEUS, UNSPECIFIED SNOMED Code(s): 253444449 (3) Intractable low back pain Current Visit: Yes Status: Acute Code(s): M54.5 - LOW BACK PAIN SNOMED Code(s): 51135367577512293 (4) Nausea & vomiting Current Visit: No Status: Acute Code(s): R11.2 - NAUSEA WITH VOMITING, UNSPECIFIED SNOMED Code(s): 28911411 Plan: 1. She is tolerating her liquid diet. Bowel function has resumed. 2. May start soft diet for breakfast tomorrow. 3. Will follow.
[2017-08-05 11:19] VITALS: PULSE 80
[2017-08-05] MEDS: SERTRALINE 100 MG TAB PO SCH (12:39)
[2017-08-05] MEDS: CLOPIDOGREL 75 MG TAB PO SCH (12:39)
--- NOTE | 2017-08-06 17:28 | DS ---
DISCHARGE SUMMARY DATE OF ADMISSION: 08/03/17. DATE OF DISCHARGE: 08/05/17 FINAL DIAGNOSES: 1. Acute lumbar area pain probably flare-up of posterior osteoarthritis though multiple myeloma cannot be ruled out. 2. Chronic obstructive pulmonary disease in an ex-smoker. 3. Chronic kidney stage IV from hypertensive nephrosclerosis and multiple myeloma. 4. Essential hypertension. 5. Hyperlipidemia. 6. [place] light chain myeloma involving the bones. 7. Depression, not otherwise specified. 8. Chronic hypoxic respiratory failure on home oxygen. 9. Rheumatoid arthritis. 10.Hypocalcemia including decreased ionized calcium. CONSULTATION: 1. Dr. Kaplan from General Surgery. 2. Dr. Larson from Oncology. 3. Dr. Dang from Orthopedic Spine. HOSPITAL COURSE: This very pleasant lady has multiple myeloma presented with acute low back pain coming on over 2 weeks. Patient did have a lumbar spine x-ray and it was felt more a flare up of osteoarthritis. Compression fracture was felt to be unlikely. It is possible multiple myeloma may be causing the presentation. The patient's pain is already doing better. The patient is walking better. The patient may need dedicated radiation treatment as an outpatient, but felt to be unlikely per Dr. Dang. The patient already has a brace at home to be used. The patient actually doing better. EXAM: Lungs: Decreased breath sounds. Cardiovascular: First and second sounds normal. Patient is able to get to the bathroom. Discussion and discharge planning more than 35 minutes. DISCHARGE MEDICATIONS: 1. Plavix 75 mg with lunch. 2. Xalatan 0.005% 1 drop to both eyes q.h.s. 3. Zoloft 200 mg with lunch. 4. Alphagan 0.2% 1 drop to both eyes b.i.d. 5. Acyclovir 400 mg p.o. daily. 6. Revlimid 50 mg p.o. as directed. 7. Zantac 150 mg p.o. q.h.s. 8. DuoNeb q.i.d. 9. Sodium bicarb 650 mg p.o. b.i.d. 10.Torsemide 5 mg p.o. daily. 11.Symbicort 160/4.5, 2 puffs b.i.d. 12.Timoptic 0.5% 1 drop to left eye b.i.d. 13.[place] 7.5 p.o. t.i.d. p.r.n. 14.Prednisone taper. Follow up with Dr. Larson in 1 week, follow with Dr. Villalobos in 1 week. ADDENDUM: I will call the patient at home and ask her to start on calcium supplements. XENIA / CHARLINEN: [id number] /
== END 2017-08-05 15:07 | disposition home or self-care (01) | DRG 552 ==
LOC: EC 16:34 → 5ONC 19:30
PROVIDERS: ADMIT Hospitalist; ATTEND Hospitalist
DX: M47.816 Spondylosis without myelopathy or radiculopathy, lumbar region (principal); N18.4 Chronic kidney disease, stage 4 (severe); C90.00 Multiple myeloma not having achieved remission; J96.11 Chronic respiratory failure with hypoxia; K56.7 Ileus, unspecified; E83.51 Hypocalcemia; J44.9 Chronic obstructive pulmonary disease, unspecified; I69.944 Monoplegia of lower limb following unspecified cerebrovascular disease affecting left non-dominant side; R40.2362 Coma scale, best motor response, obeys commands, at arrival to emergency department; R40.2142 Coma scale, eyes open, spontaneous, at arrival to emergency department; R40.2252 Coma scale, best verbal response, oriented, at arrival to emergency department; I12.9 Hypertensive chronic kidney disease with stage 1 through stage 4 chronic kidney disease, or unspecified chronic kidney disease; H40.9 Unspecified glaucoma; F41.9 Anxiety disorder, unspecified; D64.9 Anemia, unspecified; N20.0 Calculus of kidney; E78.5 Hyperlipidemia, unspecified; K44.9 Diaphragmatic hernia without obstruction or gangrene; M81.0 Age-related osteoporosis without current pathological fracture; M06.9 Rheumatoid arthritis, unspecified; F32.9 Major depressive disorder, single episode, unspecified; Z99.81 Dependence on supplemental oxygen; Z79.51 Long term (current) use of inhaled steroids; Z79.02 Long term (current) use of antithrombotics/antiplatelets; Z79.52 Long term (current) use of systemic steroids; Z79.899 Other long term (current) drug therapy; Z87.891 Personal history of nicotine dependence; Z87.442 Personal history of urinary calculi; Z88.1 Allergy status to other antibiotic agents; Z88.5 Allergy status to narcotic agent; Z88.2 Allergy status to sulfonamides; Z98.1 Arthrodesis status; Z80.1 Family history of malignant neoplasm of trachea, bronchus and lung; Z80.42 Family history of malignant neoplasm of prostate
CPT/HCPCS: 36415; 72110; 74019; 74150; 80048; 81001; 82330; 83735; 85025; 94640; 96374; 96375; 99285

== ENCOUNTER → 2017-08-17 | Outpatient (CLI) | payer MEDICARE ==
--- NOTE | 2017-08-17 15:39 | CT ---
EXAMINATION TYPE: CT thoracic spine wo con DATE OF EXAM: 08/17/2017 COMPARISON: NONE HISTORY: Mid back pain x1 month. No known injury. History of multiple myeloma. CT DLP: 745 mGycm Automated exposure control for dose reduction was used. FINDINGS: Vertebral body heights and alignment are maintained of the thoracic spine. There are multilevel anter ior osteophytes and intervertebral disc space narrowing. At T10-T11 there is calcification of the int ervertebral disc space. Additionally at the right anterior lateral margin of T10 there is a lytic les ion with a solid component measuring 1.3 cm in craniocaudal dimension, 1.3 cm in anterior posterior d imension, and 1.2 cm in transverse dimension overall there appears to be mild diffuse osseous deminer alization. Motion artifact is noted at multiple levels on the sagittal images, slightly limiting eval uation. There is a small broad-based disc bulge T5-T6. No spinal canal stenosis or neural foraminal narrowing . There is also a broad-based disc bulge at T11-T12 resulting in mild bilateral neural foraminal narr owing and no significant spinal canal stenosis. No spinal canal stenosis is seen at any other thoraci c vertebral level nor neural foraminal narrowing. There is no evidence of acute fracture of the thora cic spine or visualized portions of the central ribs. Partially healed fracture deformities of the po sterior second, third, fourth, fifth, sixth, seventh, eighth, ninth, 10th, and 12 ribs on the left ar e seen suggesting subacute fractures. Moderate atherosclerosis is seen of the abdominal aorta and its branches. Densely calcified left pretty l calculi creates spray artifact and would be inaccurately measured. No paraspinal masses are seen. IMPRESSION: 1. NO EVIDENCE OF COMPRESSION DEFORMITY OR ACUTE THORACIC SPINE FRACTURE. 2. MULTIPLE SUBACUTE APPEARING LEFT POSTERIOR AND POSTERIOR LATERAL PARTIALLY HEALED RIB FRACTURES AR E MINIMALLY DISPLACED AND SOME NONDISPLACED FROM T2-T12. 3. SMALL LYTIC LESION OF THE T10 VERTEBRAL BODY WITH SOLID COMPONENT MEASURING 1.3 CM. MRI WITH CONTR AST IS RECOMMENDED TO ASSESS FOR ENHANCEMENT AND BONE MARROW REPLACEMENT.
== END | disposition home or self-care (01) ==
LOC: RADCTMAIN 14:38
PROVIDERS: ATTEND Internal Medicine Hematology & Oncology
DX: M54.6 Pain in thoracic spine (principal); Z88.1 Allergy status to other antibiotic agents; Z88.5 Allergy status to narcotic agent; Z88.2 Allergy status to sulfonamides; Z88.8 Allergy status to other drugs, medicaments and biological substances
CPT/HCPCS: 72128

== ENCOUNTER 2017-10-23 18:38 | Inpatient (IN) | payer MEDICARE ==
[2017-10-23] MEDS ORDERED: ACETAMINOPHEN TAB 325 MG TAB PO STA (18:54)
--- NOTE | 2017-10-23 18:56 | ED ---
General Adult HPI - General Chief complaint: Weakness Stated complaint: Weakness Time Seen by Provider: 10/23/17 18:47 Source: patient, RN notes reviewed Mode of arrival: EMS Limitations: no limitations - History of Present Illness Initial comments: Patient is a pleasant 66-year-old female presenting to the emergency department with general weakness. Symptoms have been present for around 5 days or so now. Patient feels weak and achy all over. Patient does admit to having a cough. Patient states she is also getting over urinary tract infection. Patient has had some subjective fevers. 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 Patient does have history of multiple myeloma and is on chemotherapy for this. - Related Data Home Medications Medication Instructions Recorded Confirmed Clopidogrel [Plavix] 75 mg PO AC-LUNCH 01/28/17 10/23/17 Latanoprost Ophth [Xalatan 0.005%] 1 drops BOTH EYES HS 01/28/17 10/23/17 Sertraline [Zoloft] 200 mg PO AC-LUNCH 01/28/17 10/23/17 Brimonidine Tartrate [Alphagan P 1 drops BOTH EYES BID 04/05/17 10/23/17 0.2% Ophth Soln] Lenalidomide [Revlimid] 15 mg PO DIRECTED 05/24/17 10/23/17 Timolol 0.5% Ophth Soln [Timoptic 1 drop LEFT EYE BID 08/03/17 10/23/17 0.5% Ophth Soln] Budesonide-Formot 160-4.5 Mcg 2 puff INHALATION RT-BID 10/23/17 10/23/17 [Symbicort 160-4.5 Mcg Inhaler] Calcitriol 0.25 mcg PO DAILY 10/23/17 10/23/17 Cefuroxime [Ceftin] 250 mg PO BID 10/23/17 10/23/17 Dexamethasone 20 mg PO DIRECTED 10/23/17 10/23/17 Previous Rx's Medication Instructions Recorded Sodium Bicarbonate Tab 650 mg PO BID #60 tab 05/29/17 HYDROcodone/APAP 7.5-325MG [[place] 1 tab PO TID PRN #30 tab 08/05/17 7.5-325] Allergies Allergy/AdvReac Type Severity Reaction Status Date / Time ciprofloxacin HCl Allergy Lip Verified 10/23/17 19:01 [From Cipro] swelling, itching codeine Allergy Unknown Verified 10/23/17 19:01 Sulfa (Sulfonamide Allergy Unknown Verified 10/23/17 19:01 Antibiotics) Review of Systems ROS Statement: Those systems with pertinent positive or pertinent negative responses have been documented in the HPI. ROS Other: All systems not noted in ROS Statement are negative. Constitutional: Denies: fever Eyes: Denies: eye pain ENT: Denies: ear pain Respiratory: Reports: cough. Denies: dyspnea Cardiovascular: Denies: chest pain Endocrine: Reports: fatigue Gastrointestinal: Reports: nausea. Denies: abdominal pain Genitourinary: Denies: dysuria Musculoskeletal: Denies: back pain Skin: Denies: rash Neurological: Denies: weakness Past Medical History Past Medical History: COPD, CVA/TIA, Hyperlipidemia, Hypertension, Renal Disease , Rheumatoid Arthritis (RA) Additional Past Medical History / Comment(s): Bone CA, multiple myeloma,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 anxiety History of Any Multi-Drug Resistant Organisms: None Reported Past Surgical History: Back Surgery Additional Past Surgical History / Comment(s): LUMBAR FUSION 1.5 YRS AGO, BREAST IMPLANTS IN THE 70'S REMOVED MID 90'S Past Anesthesia/Blood Transfusion Reactions: No Reported Reaction Past Psychological History: No Psychological Hx Reported Smoking Status: Former smoker - Past Family History Father Additional Family Medical History / Comment(s): FATHER 99 YRS OLD STILL LIVING HAS PROSTATE ISSUES Mother Family Medical History: Cancer Additional Family Medical History / Comment(s): LUNG CANCER General Exam Limitations: no limitations General appearance: alert, in no apparent distress Head exam: Present: atraumatic Eye exam: Present: normal appearance, PERRL ENT exam: Present: normal oropharynx Neck exam: Present: normal inspection Respiratory exam: Present: normal lung sounds bilaterally Cardiovascular Exam: Present: tachycardia GI/Abdominal exam: Present: soft. Absent: distended, tenderness Rectal exam: Present: normal inspection Extremities exam: Present: normal inspection Neurological exam: Present: alert Psychiatric exam: Present: normal affect, normal mood Skin exam: Present: normal color Course Vital Signs 10/23/17 10/23/17 10/23/17 18:40 19:05 19:56 Temperature 101.8 F H 99.1 F Pulse Rate 105 H 103 H 97 Respiratory 20 18 18 Rate Blood Pressure 168/72 150/66 155/63 O2 Sat by Pulse 99 100 100 Oximetry 10/23/17 10/23/17 10/23/17 20:53 21:37 23:06 Temperature 100.6 F H 99.2 F Pulse Rate 90 81 92 Respiratory 18 18 18 Rate Blood Pressure 129/61 127/58 138/64 O2 Sat by Pulse 100 100 99 Oximetry EKG Findings - EKG Comments: EKG Findings:: Normal sinus rhythm 100. [place] 168. QRS 84. QT 374. QTC 482. Normal axis. Normal QRS. Normal ST-T. Medical Decision Making - Medical Decision Making Patient reevaluated and resting comfortably in bed. Patient updated on results and plan. Case was discussed with practitioner Ki, covering for Dr. Johnson, covering for Dr. lozada, who will admit for Dr. Villalobos. Case also discussed in detail with Dr. Abrams who does recommend irradiated blood. Blood bank was notified of this just following order been placed. Dr. Larson also requests cefepime. No source of infection is present at this time. Patient does not meet criteria. Cause of fever is unclear. - Lab Data Result diagrams: 10/23/17 19:02 10/23/17 19:02 Lab Results 10/23/17 10/23/17 10/23/17 Range/Units 19:02 19:02 19:02 WBC 3.7 L (3.8-10.6) k/uL RBC 1.81 L (3.80-5.40) m/uL Hgb 5.7 L* D (11.4-16.0) gm/dL Hct 16.8 L* (34.0-46.0) % MCV 92.8 (80.0-100.0) fL MCH 31.3 (25.0-35.0) pg MCHC 33.7 (31.0-37.0) g/dL RDW 15.5 (11.5-15.5) % Plt Count 58 L D (150-450) k/uL Neutrophils % 57 % Lymphocytes % 16 % Monocytes % 13 % Eosinophils % 9 % Basophils % 1 % Neutrophils # 2.1 (1.3-7.7) k/uL Lymphocytes # 0.6 L (1.0-4.8) k/uL Monocytes # 0.5 (0-1.0) k/uL Eosinophils # 0.4 (0-0.7) k/uL Basophils # 0.0 (0-0.2) k/uL Manual Slide Review Performed PT (9.0-12.0) sec INR (<1.2) APTT (22.0-30.0) sec Sodium 139 (137-145) mmol/L Potassium 4.0 (3.5-5.1) mmol/L Chloride 111 H (98-107) mmol/L Carbon Dioxide 18 L (22-30) mmol/L Anion Gap 10 mmol/L BUN 51 H (7-17) mg/dL Creatinine 3.30 H (0.52-1.04) mg/dL Est GFR (CKD-EPI)AfAm 16 (>60 ml/min/1.73 sqM) Est GFR (CKD-EPI)NonAf 14 (>60 ml/min/1.73 sqM) Glucose 95 (74-99) mg/dL Plasma Lactic Acid Afshin 1.0 (0.7-2.0) mmol/L Calcium 6.4 L* (8.4-10.2) mg/dL Ionized Calcium Albino (4.5-5.3) mg/dL Total Bilirubin 0.6 (0.2-1.3) mg/dL AST 14 (14-36) U/L ALT 27 (9-52) U/L Alkaline Phosphatase 58 (38-126) U/L Total Protein 6.1 L (6.3-8.2) g/dL Albumin 3.8 (3.5-5.0) g/dL Urine Color Urine Appearance (Clear) Urine pH (5.0-8.0) Ur Specific Crary (1.001-1.035) Urine Protein (Negative) Urine Glucose (UA) (Negative) Urine Ketones (Negative) Urine Blood (Negative) Urine Nitrite (Negative) Urine Bilirubin (Negative) Urine Urobilinogen (<2.0) mg/dL Ur Leukocyte Esterase (Negative) Urine RBC (0-5) /hpf Urine WBC (0-5) /hpf Urine Mucus (None) /hpf Stool Occult Blood (Negative) Blood Type Blood Type Recheck Antibody Screen Spec Expiration Date 10/23/17 10/23/17 10/23/17 Range/Units 19:02 19:02 19:35 WBC (3.8-10.6) k/uL RBC (3.80-5.40) m/uL Hgb (11.4-16.0) gm/dL Hct (34.0-46.0) % MCV (80.0-100.0) fL MCH (25.0-35.0) pg MCHC (31.0-37.0) g/dL RDW (11.5-15.5) % Plt Count (150-450) k/uL Neutrophils % % Lymphocytes % % Monocytes % % Eosinophils % % Basophils % % Neutrophils # (1.3-7.7) k/uL Lymphocytes # (1.0-4.8) k/uL Monocytes # (0-1.0) k/uL Eosinophils # (0-0.7) k/uL Basophils # (0-0.2) k/uL Manual Slide Review PT 10.7 (9.0-12.0) sec INR 1.1 (<1.2) APTT 26.8 (22.0-30.0) sec Sodium (137-145) mmol/L Potassium (3.5-5.1) mmol/L Chloride (98-107) mmol/L Carbon Dioxide (22-30) mmol/L Anion Gap mmol/L BUN (7-17) mg/dL Creatinine (0.52-1.04) mg/dL Est GFR (CKD-EPI)AfAm (>60 ml/min/1.73 sqM) Est GFR (CKD-EPI)NonAf (>60 ml/min/1.73 sqM) Glucose (74-99) mg/dL Plasma Lactic Acid Afshin (0.7-2.0) mmol/L Calcium (8.4-10.2) mg/dL Ionized Calcium Albino (4.5-5.3) mg/dL Total Bilirubin (0.2-1.3) mg/dL AST (14-36) U/L ALT (9-52) U/L Alkaline Phosphatase (38-126) U/L Total Protein (6.3-8.2) g/dL Albumin (3.5-5.0) g/dL Urine Color Urine Appearance (Clear) Urine pH (5.0-8.0) Ur Specific Crary (1.001-1.035) Urine Protein (Negative) Urine Glucose (UA) (Negative) Urine Ketones (Negative) Urine Blood (Negative) Urine Nitrite (Negative) Urine Bilirubin (Negative) Urine Urobilinogen (<2.0) mg/dL Ur Leukocyte Esterase (Negative) Urine RBC (0-5) /hpf Urine WBC (0-5) /hpf Urine Mucus (None) /hpf Stool Occult Blood Negative (Negative) Blood Type O Positive Blood Type Recheck No Antibody Screen NEGATIVE Spec Expiration Date 10/26/2017233410/23/17 10/23/17 Range/Units 19:46 19:50 WBC (3.8-10.6) k/uL RBC (3.80-5.40) m/uL Hgb (11.4-16.0) gm/dL Hct (34.0-46.0) % MCV (80.0-100.0) fL MCH (25.0-35.0) pg MCHC (31.0-37.0) g/dL RDW (11.5-15.5) % Plt Count (150-450) k/uL Neutrophils % % Lymphocytes % % Monocytes % % Eosinophils % % Basophils % % Neutrophils # (1.3-7.7) k/uL Lymphocytes # (1.0-4.8) k/uL Monocytes # (0-1.0) k/uL Eosinophils # (0-0.7) k/uL Basophils # (0-0.2) k/uL Manual Slide Review PT (9.0-12.0) sec INR (<1.2) APTT (22.0-30.0) sec Sodium (137-145) mmol/L Potassium (3.5-5.1) mmol/L Chloride (98-107) mmol/L Carbon Dioxide (22-30) mmol/L Anion Gap mmol/L BUN (7-17) mg/dL Creatinine (0.52-1.04) mg/dL Est GFR (CKD-EPI)AfAm (>60 ml/min/1.73 sqM) Est GFR (CKD-EPI)NonAf (>60 ml/min/1.73 sqM) Glucose (74-99) mg/dL Plasma Lactic Acid Afshin (0.7-2.0) mmol/L Calcium (8.4-10.2) mg/dL Ionized Calcium Albino 3.5 L* (4.5-5.3) mg/dL Total Bilirubin (0.2-1.3) mg/dL AST (14-36) U/L ALT (9-52) U/L Alkaline Phosphatase (38-126) U/L Total Protein (6.3-8.2) g/dL Albumin (3.5-5.0) g/dL Urine Color Light Yellow Urine Appearance Clear (Clear) Urine pH 6.5 (5.0-8.0) Ur Specific Crary 1.010 (1.001-1.035) Urine Protein 1+ H (Negative) Urine Glucose (UA) Negative (Negative) Urine Ketones Negative (Negative) Urine Blood Small H (Negative) Urine Nitrite Negative (Negative) Urine Bilirubin Negative (Negative) Urine Urobilinogen <2.0 (<2.0) mg/dL Ur Leukocyte Esterase Negative (Negative) Urine RBC 1 (0-5) /hpf Urine WBC 1 (0-5) /hpf Urine Mucus Rare H (None) /hpf Stool Occult Blood (Negative) Blood Type Blood Type Recheck Antibody Screen Spec Expiration Date - Radiology Data Radiology results: image reviewed (Chest x-ray shows no acute process) Disposition Clinical Impression: Anemia, Fever Disposition: ADMITTED IP TO THIS HOSP Is patient prescribed a controlled substance at d/c from ED?: No Referrals: Kirby Villalobos DO [Primary Care Provider] - 1-2 days Decision Time: 23:35
[2017-10-23] MEDS ORDERED: SODIUM CHLORIDE 0.9% 500 ML IV SCH (19:00)
[2017-10-23 19:14] LABS: Basophils % (A) 1 %; Eosinophils # (A) 0.4 k/uL (0-0.7); Eosinophils % (A) 9 %; Lymphocytes # (A) 0.6 k/uL (1.0-4.8); Lymphocytes % (A) 16 %; MCH 31.3 pg (25.0-35.0); MCHC 33.7 g/dL (31.0-37.0); MCV 92.8 fL (80.0-100.0); Mean Platelet Volume 10.3; Monocytes # (A) 0.5 k/uL (0-1.0); Monocytes % (A) 13 %; Neutrophils # (A) 2.1 k/uL (1.3-7.7); Neutrophils % (A) 57 %; RBC 1.81 m/uL (3.80-5.40); RDW 15.5 % (11.5-15.5); WBC 3.7 k/uL (3.8-10.6)
[2017-10-23 19:24] LABS: Albumin 3.8 g/dL (3.5-5.0); Total Bilirubin 0.6 mg/dL (0.2-1.3); Total Protein 6.1 g/dL (6.3-8.2)
[2017-10-23 19:25] LABS: HCT 16.8 % (34.0-46.0); HGB 5.7 gm/dL (11.4-16.0)
[2017-10-23 19:26] LABS: Calcium 6.4 mg/dL (8.4-10.2)
--- NOTE | 2017-10-23 19:36 | XR ---
EXAMINATION TYPE: XR chest 2V DATE OF EXAM: 10/23/2017 COMPARISON: 07/27/2017 HISTORY: Weakness TECHNIQUE: Frontal and lateral views of the chest are obtained. FINDINGS: There is no heart failure nor confluent pneumonic infiltrate. Costophrenic angles are atilio r. There are chest leads. Bony thorax is intact. IMPRESSION: No active cardiopulmonary disease. Normal heart. No change.
[2017-10-23 19:43] LABS: Platelet Count 58 k/uL (150-450)
[2017-10-23 19:50] LABS: INR 1.1 (<1.2); Partial Thromboplastin Time 26.8 sec (22.0-30.0); Prothrombin Time 10.7 sec (9.0-12.0)
[2017-10-23 20:08] LABS: Appearance,Urine Clear (Clear); Bilirubin,Urine Negative (Negative); Blood,Urine Small (Negative); Color,Urine Light Yellow; Glucose,Urine (UA) Negative (Negative); Ketones,Urine Negative (Negative); Leukocyte Esterase,Urine Negative (Negative); Mucus,Urine Rare /hpf; Nitrite,Urine Negative (Negative); PH, Urine 6.5 (5.0-8.0); Protein,Urine 1+ (Negative); RBC,Urine 1 /hpf (0-5); Urobilinogen,Urine <2.0 mg/dL (<2.0); WBC,Urine 1 /hpf (0-5)
[2017-10-23] MEDS ORDERED: CALCIUM CARBONATE 500 MG CHEWABLE PO PRN (20:17)
[2017-10-23] MEDS ORDERED: CALCIUM GLUCONATE 1,000 MG in SODIUM CHLORIDE 0.9% 100 ML IVPB ONE (20:30)
[2017-10-23] MEDS ORDERED: CEFEPIME 1 GM in SODIUM CHLORIDE 0.9% 50 ML IVPB STA (23:35)
[2017-10-23] MEDS ORDERED: ACETAMINOPHEN TAB 325 MG TAB PO PRN (23:36)
[2017-10-23] MEDS ORDERED: NALOXONE 0.4 MG/ML 1 ML VIAL IV PRN (23:36)
[2017-10-23] MEDS ORDERED: SODIUM CHLORIDE 0.9% 1,000 ML IV SCH (23:45)
[2017-10-24 04:34] VITALS: BMI 17.2
[2017-10-24] MEDS ORDERED: DEXAMETHASONE 4 MG TAB PO SCH (09:00)
[2017-10-24 10:14] LABS: Calcium 5.7 mg/dL (8.4-10.2)
[2017-10-24 10:26] LABS: Basophils % (A) 1 %; Eosinophils # (A) 0.2 k/uL (0-0.7); Eosinophils % (A) 5 %; HCT 25.6 % (34.0-46.0); Lymphocytes # (A) 0.4 k/uL (1.0-4.8); Lymphocytes % (A) 10 %; MCH 31.6 pg (25.0-35.0); MCHC 33.8 g/dL (31.0-37.0); MCV 93.6 fL (80.0-100.0); Mean Platelet Volume 9.4; Monocytes # (A) 0.5 k/uL (0-1.0); Monocytes % (A) 12 %; Neutrophils # (A) 2.7 k/uL (1.3-7.7); Neutrophils % (A) 69 %; RBC 2.73 m/uL (3.80-5.40); WBC 3.9 k/uL (3.8-10.6)
[2017-10-24 10:44] LABS: Platelet Count 41 k/uL (150-450)
[2017-10-24 10:45] LABS: HGB 8.6 gm/dL (11.4-16.0)
--- NOTE | 2017-10-24 12:18 | P.HPIM ---
History of Present Illness Patient is a pleasant 61-year-old female came in with compensative for generalized fatigue and found to have low hemoglobin of 5.7 received 2 units of blood transfusion. Patient has history of multiple myeloma failed therapy with lenalidomide and the subsequently was started on Carflizomib, patient has worsening creatinine from her baseline patient had was in creatinine after she will was diagnosed with multiple myeloma, now much worse. Patient is a is on IV fluids and. Patient's the was recently treated for urinary tract infection and is on Ceftin at home in spite of which patient had high-grade fevers patient presently denied any dysuria is comparing of cough with yellow sputum production although chest x-ray did not show any pneumonia is not impressive for urinary tract infection patient blood cultures were obtained will obtain sputum cultures patient was started on cefepime which will be continued. The other significant abnormality is severe hypo-Seamy which is normally not expected from multiple myeloma. Patient is on the vitamin D and calcium supplementation. We will obtain a PTH and 25-hydroxy vitamin D levels and the patient was given the calcium IV supplementation and patient was started on calcium carbonate 3 times a day which will be continued and repeat the calcium levels tomorrow. Review of Systems REVIEW OF SYSTEMS: CONSTITUTIONAL: As mentioned in HPI HEENT: No recent visual problems or hearing problems. Denied any sore throat. CARDIOVASCULAR: No chest pain, orthopnea, PND, no palpitations, no syncope. PULMONARY: No shortness of breath, no cough, no hemoptysis. GASTROINTESTINAL: No diarrhea, no nausea, no vomiting, no abdominal pain. Normoactive bowel sounds. NEUROLOGICAL: No headaches, no weakness, no numbness. HEMATOLOGICAL: Denies any bleeding or petechiae. GENITOURINARY: Denies any burning micturition, frequency, or urgency. MUSCULOSKELETAL/RHEUMATOLOGICAL: Denies any joint pain, swelling, or any muscle pain. ENDOCRINE: Denies any polyuria or polydipsia. The rest of the 14-point review of systems is negative. 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 anxiety History of Any Multi-Drug Resistant Organisms: None Reported Past Surgical History: Back Surgery Additional Past Surgical History / Comment(s): LUMBAR FUSION 1.5 YRS AGO, BREAST IMPLANTS IN THE 70'S REMOVED MID 'S Past Anesthesia/Blood Transfusion Reactions: No Reported Reaction Past Psychological History: No Psychological Hx Reported Smoking Status: Former smoker Past Alcohol Use History: Rare Additional Past Alcohol Use History / Comment(s): started smoking at age 19 smoked just under 1 ppd. quit 2014 Past Drug Use History: None Reported - Past Family History Father Additional Family Medical History / Comment(s): FATHER 99 YRS OLD STILL LIVING HAS PROSTATE ISSUES Mother Family Medical History: Cancer Additional Family Medical History / Comment(s): LUNG CANCER Medications and Allergies Home Medications Medication Instructions Recorded Confirmed Type Clopidogrel [Plavix] 75 mg PO AC-LUNCH 01/28/17 10/23/17 History Latanoprost Ophth [Xalatan 0.005%] 1 drops BOTH EYES HS 01/28/17 10/23/17 History Sertraline [Zoloft] 200 mg PO AC-LUNCH 01/28/17 10/23/17 History Brimonidine Tartrate [Alphagan P 1 drops BOTH EYES BID 04/05/17 10/23/17 History 0.2% Ophth Soln] Lenalidomide [Revlimid] 15 mg PO DIRECTED 05/24/17 10/23/17 History Sodium Bicarbonate Tab 650 mg PO BID #60 tab 05/29/17 10/23/17 Rx Timolol 0.5% Ophth Soln [Timoptic 1 drop LEFT EYE BID 08/03/17 10/23/17 History 0.5% Ophth Soln] HYDROcodone/APAP 7.5-325MG [[employer] 1 tab PO TID PRN #30 tab 08/05/17 10/23/17 Rx 7.5-325] Budesonide-Formot 160-4.5 Mcg 2 puff INHALATION RT-BID 10/23/17 10/23/17 History [Symbicort 160-4.5 Mcg Inhaler] Calcitriol 0.25 mcg PO DAILY 10/23/17 10/23/17 History Cefuroxime [Ceftin] 250 mg PO BID 10/23/17 10/23/17 History Dexamethasone 20 mg PO DIRECTED 10/23/17 10/23/17 History Allergies Allergy/AdvReac Type Severity Reaction Status Date / Time ciprofloxacin HCl Allergy Lip Verified 10/23/17 19:01 [From Cipro] swelling, itching codeine Allergy Unknown Verified 10/23/17 19:01 Sulfa (Sulfonamide Allergy Unknown Verified 10/23/17 19:01 Antibiotics) Physical Exam Vitals: Vital Signs Temp Pulse Pulse Resp BP BP Pulse Ox 10/24/17 08:54 99.3 F 87 12 143/60 94 L 10/24/17 07:00 99.5 F 90 18 153/67 95 10/24/17 05:40 98.6 F 88 20 135/68 10/24/17 05:10 98.6 F 91 20 143/72 10/24/17 05:00 98.9 F 92 20 141/72 94 L 10/24/17 04:42 99.1 F 85 20 132/70 96 10/24/17 01:48 98.1 F 80 18 132/65 10/24/17 01:18 98.3 F 85 18 136/65 95 10/24/17 01:08 98.2 F 92 20 134/58 96 10/24/17 01:00 97.5 F L 99 16 146/62 93 L 10/24/17 00:01 88 18 142/94 95 10/23/17 23:06 99.2 F 92 18 138/64 99 10/23/17 21:37 81 18 127/58 100 10/23/17 20:53 100.6 F H 90 18 129/61 100 10/23/17 19:56 99.1 F 97 18 155/63 100 10/23/17 19:05 103 H 18 150/66 100 10/23/17 18:40 101.8 F H 105 H 20 168/72 99 Intake and Output 10/23/17 10/24/17 10/24/17 22:59 06:59 14:59 Intake Total 1000 310 Balance 1000 310 Intake: Intake, IV Titration 450 Amount Sodium Chloride 0.9% 1, 450 000 ml @ 75 mls/hr IV . [id number] [facility] Rx#:[id number] Oral 240 Blood Product 310 310 Rc Irr As1 Unit 0 310 [id number] Rc Irr As1 Unit 310 [id number] Other: Voiding Method Toilet # Voids 2 # Bowel Movements 1 Weight 45.359 kg 45.359 kg PHYSICAL EXAMINATION: GENERAL: The patient is alert and oriented x3, not in any acute distress. Well developed, well nourished. Does look pale HEENT: Pupils are round and equally reacting to light. EOMI. No scleral icterus. Does have conjunctival pallor. Normocephalic, atraumatic. No pharyngeal erythema. No thyromegaly. CARDIOVASCULAR: S1 and S2 present. No murmurs, rubs, or gallops. PULMONARY: Chest is clear to auscultation, no wheezing or crackles. ABDOMEN: Soft, nontender, nondistended, normoactive bowel sounds. No palpable organomegaly. MUSCULOSKELETAL: No joint swelling or deformity. EXTREMITIES: No cyanosis, clubbing, or pedal edema. NEUROLOGICAL: Gross neurological examination did not reveal any focal deficits. SKIN: No rashes. Results CBC & Chem 7: 10/24/17 09:47 10/24/17 09:47 Labs: Abnormal Lab Results - Last 24 Hours (Table) 10/23/17 10/23/17 10/23/17 Range/Units 19:02 19:02 19:35 WBC 3.7 L (3.8-10.6) k/uL RBC 1.81 L (3.80-5.40) m/uL Hgb 5.7 L* D (11.4-16.0) gm/dL Hct 16.8 L* (34.0-46.0) % RDW (11.5-15.5) % Plt Count 58 L D (150-450) k/uL Lymphocytes # 0.6 L (1.0-4.8) k/uL Chloride 111 H (98-107) mmol/L Carbon Dioxide 18 L (22-30) mmol/L BUN 51 H (7-17) mg/dL Creatinine 3.30 H (0.52-1.04) mg/dL Calcium 6.4 L* (8.4-10.2) mg/dL Ionized Calcium Albino (4.5-5.3) mg/dL Total Protein 6.1 L (6.3-8.2) g/dL Urine Protein (Negative) Urine Blood (Negative) Urine Mucus (None) /hpf Crossmatch See Detail 10/23/17 10/23/17 10/24/17 Range/Units 19:46 19:50 09:47 WBC (3.8-10.6) k/uL RBC 2.73 L (3.80-5.40) m/uL Hgb 8.6 L D (11.4-16.0) gm/dL Hct 25.6 L (34.0-46.0) % RDW 16.0 H (11.5-15.5) % Plt Count 41 L* (150-450) k/uL Lymphocytes # 0.4 L (1.0-4.8) k/uL Chloride (98-107) mmol/L Carbon Dioxide (22-30) mmol/L BUN (7-17) mg/dL Creatinine (0.52-1.04) mg/dL Calcium (8.4-10.2) mg/dL Ionized Calcium Albino 3.5 L* (4.5-5.3) mg/dL Total Protein (6.3-8.2) g/dL Urine Protein 1+ H (Negative) Urine Blood Small H (Negative) Urine Mucus Rare H (None) /hpf Crossmatch 10/24/17 Range/Units 09:47 WBC (3.8-10.6) k/uL RBC (3.80-5.40) m/uL Hgb (11.4-16.0) gm/dL Hct (34.0-46.0) % RDW (11.5-15.5) % Plt Count (150-450) k/uL Lymphocytes # (1.0-4.8) k/uL Chloride 115 H (98-107) mmol/L Carbon Dioxide 14 L (22-30) mmol/L BUN 40 H (7-17) mg/dL Creatinine 3.12 H (0.52-1.04) mg/dL Calcium 5.7 L* (8.4-10.2) mg/dL Ionized Calcium Albino (4.5-5.3) mg/dL Total Protein (6.3-8.2) g/dL Urine Protein (Negative) Urine Blood (Negative) Urine Mucus (None) /hpf Crossmatch Microbiology - Last 24 Hours (Table) 10/23/17 19:46 Urine Culture - Preliminary Urine,Catheterized Thrombosis Risk Factor Assmnt - Choose All That Apply Each Risk Factor Represents 2 Points: Age 61-74 years, Malignancy Thrombosis Risk Factor Assessment Total Risk Factor Score: 4 Thrombosis Risk Factor Assessment Level: Moderate Risk Assessment and Plan Plan: -Fatigue, symptomatically anemia: His blood transfusion after which patient is feeling well. -Fever and patient is definitely immunosuppressed because of her multiple myeloma. Patient was started on cefepime. Patient is already receiving Ceftin which she is supposed to be done by tomorrow. No source of infection is evident will obtain sputum cultures. Blood awaiting blood cultures -Hypocalcemia: We'll obtain PTH levels and 25-hydroxy vitamin D levels. Patient 's calcium will be supplemented albumin is essentially within normal limits. -Multiple myeloma: Further management as per oncology. -COPD without any acute exacerbation -Hypertension -Acute kidney injury: Secondary to multiple myeloma patient will be continued on IV fluids patient does have acidosis secondary to hyperchloremia. Which to half-normal saline. 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 I cannot stage IV chronic kidney disease as her creatinine is not stabilized yet. -Metabolic acidosis: Both anion gap and non-anion gap metabolic acidosis secondary to uremia and hyperchloremia. -Hyperlipidemia
[2017-10-24] MEDS: BRIMONIDINE TARTRATE 0.2% DROPS 5 ML BTL BOTH EYES SCH ×2 (13:25→20:27)
[2017-10-24] MEDS: CLOPIDOGREL 75 MG TAB PO SCH (13:25)
[2017-10-24] MEDS: SERTRALINE 100 MG TAB PO SCH (13:25)
[2017-10-24] MEDS: SODIUM CHLORIDE 0.45% 1,000 ML IV SCH (15:44)
[2017-10-24] MEDS: ONDANSETRON 4 MG/2 ML VIAL IVP PRN (16:23)
[2017-10-24] MEDS ORDERED: diphenhydrAMINE 25 MG CAP PO STA (16:28)
--- NOTE | 2017-10-24 17:34 | P.CONS ---
History of Present Illness - Reason for Consult Consult date: 10/24/17 Treatment for multiple myeloma Requesting physician: Jeronimo Ro - Chief Complaint Fever, progressive weakness, N, V, D - History of Present Illness Ms. Coleman is a very pleasant female pt of Dr. Larson who was initially seen in consult at [facility] 04/07/17, admitted with c/o general malaise x 4-6 weeks, decreased appetite, 8-10 lb wt. loss, decreased endurance, intermittent nausea, increased bone pain in the bilateral rib area, Cr. 2.9 (baseline around 2), Ca++ 13.4 and anemia, previously ordered labs by Nephrology outpatient showed a markedly elevated light chain at 4900 mg/dL with lambda light chains normal, SPEP negative. Treated with IV hydration and IV bisphosphonates , did have blood transfusion. 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 She was started on Rev/Velcade/Dex at the end of Apr. She has had multiple hospitalizations over the last 4 months for COPD exacerbations and bone pain. Pt completed 6 cycles. F/U labs showed progressively worsening renal function and increasing light chain. Pt was started on Kyprolis/Revlimid/Dex and has 1st 2 week cycle, which she completed 10/17. She states progressive decline over the last week, weak, eating and drinking less and less due to nausea, some vomiting, diarrhea a few times a day, she then had fever so was directed to hospital. She is uncomfortable when seen, fever on admit, feels warm now, denies oral irritation , she has congested cough, small amt of sputum, no hemoptysis, chest pain, overt ELIEZER, abd pain, distension, dysuria, hematuria, black or bloody stool, swelling or pain. 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 anxiety History of Any Multi-Drug Resistant Organisms: None Reported Past Surgical History: Back Surgery Additional Past Surgical History / Comment(s): LUMBAR FUSION 1.5 YRS AGO, BREAST IMPLANTS IN THE 70'S REMOVED MID 90'S Past Anesthesia/Blood Transfusion Reactions: No Reported Reaction Past Psychological History: No Psychological Hx Reported Smoking Status: Former smoker Past Alcohol Use History: Rare Additional Past Alcohol Use History / Comment(s): started smoking at age 19 smoked just under 1 ppd. quit 2014 Past Drug Use History: None Reported - Past Family History Father Additional Family Medical History / Comment(s): FATHER 99 YRS OLD STILL LIVING HAS PROSTATE ISSUES Mother Family Medical History: Cancer Additional Family Medical History / Comment(s): LUNG CANCER Medications and Allergies Home Medications Medication Instructions Recorded Confirmed Type Clopidogrel [Plavix] 75 mg PO AC-LUNCH 01/28/17 10/23/17 History Latanoprost Ophth [Xalatan 0.005%] 1 drops BOTH EYES HS 01/28/17 10/23/17 History Sertraline [Zoloft] 200 mg PO AC-LUNCH 01/28/17 10/23/17 History Brimonidine Tartrate [Alphagan P 1 drops BOTH EYES BID 04/05/17 10/23/17 History 0.2% Ophth Soln] Lenalidomide [Revlimid] 15 mg PO DIRECTED 05/24/17 10/23/17 History Sodium Bicarbonate Tab 650 mg PO BID #60 tab 05/29/17 10/23/17 Rx Timolol 0.5% Ophth Soln [Timoptic 1 drop LEFT EYE BID 08/03/17 10/23/17 History 0.5% Ophth Soln] HYDROcodone/APAP 7.5-325MG [[place] 1 tab PO TID PRN #30 tab 08/05/17 10/23/17 Rx 7.5-325] Budesonide-Formot 160-4.5 Mcg 2 puff INHALATION RT-BID 10/23/17 10/23/17 History [Symbicort 160-4.5 Mcg Inhaler] Calcitriol 0.25 mcg PO DAILY 10/23/17 10/23/17 History Cefuroxime [Ceftin] 250 mg PO BID 10/23/17 10/23/17 History Dexamethasone 20 mg PO MO 10/23/17 10/24/17 History Allergies Allergy/AdvReac Type Severity Reaction Status Date / Time ciprofloxacin HCl Allergy Lip Verified 10/23/17 19:01 [From Cipro] swelling, itching codeine Allergy Unknown Verified 10/23/17 19:01 Sulfa (Sulfonamide Allergy Unknown Verified 10/23/17 19:01 Antibiotics) Physical Exam Vitals: Vital Signs Temp Pulse Pulse Resp BP BP Pulse Ox 10/24/17 08:54 99.3 F 87 12 143/60 94 L 10/24/17 07:00 99.5 F 90 18 153/67 95 10/24/17 05:40 98.6 F 88 20 135/68 10/24/17 05:10 98.6 F 91 20 143/72 10/24/17 05:00 98.9 F 92 20 141/72 94 L 10/24/17 04:42 99.1 F 85 20 132/70 96 10/24/17 01:48 98.1 F 80 18 132/65 10/24/17 01:18 98.3 F 85 18 136/65 95 10/24/17 01:08 98.2 F 92 20 134/58 96 10/24/17 01:00 97.5 F L 99 16 146/62 93 L 10/24/17 00:01 88 18 142/94 95 10/23/17 23:06 99.2 F 92 18 138/64 99 10/23/17 21:37 81 18 127/58 100 10/23/17 20:53 100.6 F H 90 18 129/61 100 10/23/17 19:56 99.1 F 97 18 155/63 100 10/23/17 19:05 103 H 18 150/66 100 10/23/17 18:40 101.8 F H 105 H 20 168/72 99 Intake and Output 10/23/17 10/24/17 10/24/17 22:59 06:59 14:59 Intake Total 1000 310 Balance 1000 310 Intake: Intake, IV Titration 450 Amount Sodium Chloride 0.9% 1, 450 000 ml @ 75 mls/hr IV . [id number] [facility] Rx#:[id number] Oral 240 Blood Product 310 310 Rc Irr As1 Unit 0 310 [id number] Rc Irr As1 Unit 310 [id number] Other: Voiding Method Toilet # Voids 2 # Bowel Movements 1 Weight 45.359 kg 45.359 kg - Constitutional General appearance: cooperative, no acute distress, thin - EENT Dry mucous membranes, tongue is reddened, no ulcers or thrush Eyes: anicteric sclerae - Neck Neck: no lymphadenopathy - Respiratory Respiratory: bilateral: rales (Bilateral lower lobes left greater than right) - Cardiovascular Rhythm: regular Heart sounds: normal: S1, S2 Abnormal Heart Sounds: no systolic murmur, no diastolic murmur, no rub, no S3 Gallop, no S4 Gallop, no click, no other leg Peripheral Edema: bilateral: None - Gastrointestinal General gastrointestinal: no absent bowel sounds, no decreased bowel sounds, no distended, no hepatomegaly, no hyperactive bowel sounds, normal bowel sounds, no organomegaly, no rigid, no scaphoid, soft, no splenomegaly, no tenderness, no umbilical hernia, no ventral hernia - Integumentary Integumentary: decreased turgor, pale - Neurologic Neurologic: CNII-XII intact - Musculoskeletal Musculoskeletal: generalized weakness, strength equal bilaterally - Psychiatric Psychiatric: A&O x's 3, appropriate affect, intact judgment & insight Results CBC & Chem 7: 10/24/17 09:47 10/24/17 09:47 Labs: Abnormal Lab Results - Last 24 Hours (Table) 10/23/17 10/23/17 10/23/17 Range/Units 19:02 19:02 19:35 WBC 3.7 L (3.8-10.6) k/uL RBC 1.81 L (3.80-5.40) m/uL Hgb 5.7 L* D (11.4-16.0) gm/dL Hct 16.8 L* (34.0-46.0) % RDW (11.5-15.5) % Plt Count 58 L D (150-450) k/uL Lymphocytes # 0.6 L (1.0-4.8) k/uL Chloride 111 H (98-107) mmol/L Carbon Dioxide 18 L (22-30) mmol/L BUN 51 H (7-17) mg/dL Creatinine 3.30 H (0.52-1.04) mg/dL Calcium 6.4 L* (8.4-10.2) mg/dL Ionized Calcium Albino (4.5-5.3) mg/dL Total Protein 6.1 L (6.3-8.2) g/dL Urine Protein (Negative) Urine Blood (Negative) Urine Mucus (None) /hpf Crossmatch See Detail 10/23/17 10/23/17 10/24/17 Range/Units 19:46 19:50 09:47 WBC (3.8-10.6) k/uL RBC 2.73 L (3.80-5.40) m/uL Hgb 8.6 L D (11.4-16.0) gm/dL Hct 25.6 L (34.0-46.0) % RDW 16.0 H (11.5-15.5) % Plt Count 41 L* (150-450) k/uL Lymphocytes # 0.4 L (1.0-4.8) k/uL Chloride (98-107) mmol/L Carbon Dioxide (22-30) mmol/L BUN (7-17) mg/dL Creatinine (0.52-1.04) mg/dL Calcium (8.4-10.2) mg/dL Ionized Calcium Albino 3.5 L* (4.5-5.3) mg/dL Total Protein (6.3-8.2) g/dL Urine Protein 1+ H (Negative) Urine Blood Small H (Negative) Urine Mucus Rare H (None) /hpf Crossmatch 10/24/17 Range/Units 09:47 WBC (3.8-10.6) k/uL RBC (3.80-5.40) m/uL Hgb (11.4-16.0) gm/dL Hct (34.0-46.0) % RDW (11.5-15.5) % Plt Count (150-450) k/uL Lymphocytes # (1.0-4.8) k/uL Chloride 115 H (98-107) mmol/L Carbon Dioxide 14 L (22-30) mmol/L BUN 40 H (7-17) mg/dL Creatinine 3.12 H (0.52-1.04) mg/dL Calcium 5.7 L* (8.4-10.2) mg/dL Ionized Calcium Albino (4.5-5.3) mg/dL Total Protein (6.3-8.2) g/dL Urine Protein (Negative) Urine Blood (Negative) Urine Mucus (None) /hpf Crossmatch Microbiology - Last 24 Hours (Table) 10/23/17 19:46 Urine Culture - Preliminary Urine,Catheterized Chest x-ray: report reviewed Assessment and Plan (1) Fever Narrative/Plan: Patient is on empiric antibiotics, urinary analysis not suspicious, chest x-ray report does not describe an acute process, blood cultures are pending. Patient is not neutropenic at this time. Current Visit: Yes Status: Acute Priority: High Code(s): R50.9 - FEVER, UNSPECIFIED SNOMED Code(s): 321986484 (2) Multiple myeloma not having achieved remission Narrative/Plan: Patient regimen recently changed. Patient is on kyprolis/Revlimid/Dex regimen status post first cycle. Hold Revlimid for now, Dex not due yet. Current Visit: Yes Status: Chronic Priority: Medium Code(s): C90.00 - MULTIPLE MYELOMA NOT HAVING ACHIEVED REMISSION SNOMED Code(s): 139709191 (3) Myeloma kidney disease Narrative/Plan: Patient's renal function is worse than previously documented in the office. BUN and creatinine have improved with some hydration already. Continue hydration and monitoring of labs Current Visit: Yes Status: Acute Priority: High Code(s): C90.00 - MULTIPLE MYELOMA NOT HAVING ACHIEVED REMISSION; N28.89 - OTHER SPECIFIED DISORDERS OF KIDNEY AND URETER SNOMED Code(s): 10155170
[2017-10-24] MEDS: SYMBICORT 160-4.5 MCG INHALER INHALATION SCH (19:54)
[2017-10-24] MEDS: LATANOPROST 0.005% OPHTH DROPS 2.5 ML BTL BOTH EYES SCH (20:26)
[2017-10-24] MEDS: TIMOLOL 0.5% OPHTH DROPS 5 ML BTL LEFT EYE SCH (20:26)
[2017-10-24] MEDS ORDERED: CEFEPIME 1 GM in SODIUM CHLORIDE 0.9% 50 ML IVPB SCH (23:00)
[2017-10-25] MEDS: SODIUM CHLORIDE 0.45% 1,000 ML IV SCH ×3 (04:33→21:28)
[2017-10-25] MEDS: ONDANSETRON 4 MG/2 ML VIAL IVP PRN (06:07)
[2017-10-25] MEDS: SYMBICORT 160-4.5 MCG INHALER INHALATION SCH ×2 (08:11→19:48)
[2017-10-25 08:41] LABS: HCT 27.9 % (34.0-46.0); HGB 9.1 gm/dL (11.4-16.0); MCH 30.4 pg (25.0-35.0); MCHC 32.7 g/dL (31.0-37.0); MCV 92.8 fL (80.0-100.0); Mean Platelet Volume 9.5; RBC 3.01 m/uL (3.80-5.40); RDW 15.9 % (11.5-15.5); WBC 6.2 k/uL (3.8-10.6)
[2017-10-25 08:44] LABS: Potassium 4.4 mmol/L (3.5-5.1)
[2017-10-25 08:45] LABS: Platelet Count 69 k/uL (150-450)
[2017-10-25 08:54] LABS: Calcium 5.5 mg/dL (8.4-10.2)
[2017-10-25] MEDS: CALCITRIOL 0.25 MCG CAP PO SCH (08:57)
[2017-10-25] MEDS: TIMOLOL 0.5% OPHTH DROPS 5 ML BTL LEFT EYE SCH ×2 (08:57→20:05)
[2017-10-25] MEDS: PANTOPRAZOLE 40 MG/10 ML VIAL IVP SCH (08:57)
[2017-10-25] MEDS: BRIMONIDINE TARTRATE 0.2% DROPS 5 ML BTL BOTH EYES SCH ×2 (08:57→20:05)
[2017-10-25] MEDS ORDERED: DEXAMETHASONE 4 MG TAB PO SCH (09:00)
[2017-10-25] MEDS ORDERED: diphenhydrAMINE 25 MG CAP PO STA (09:13)
[2017-10-25] MEDS ORDERED: CALCIUM CHLORIDE 100 MG/ML 10 ML SYRINGE IVP ONE (09:57)
[2017-10-25] MEDS ORDERED: CALCIUM CHLORIDE 1,000 MG in SODIUM CHLORIDE 0.9% 100 ML IVPB STA (10:04)
--- NOTE | 2017-10-25 10:05 | XR ---
EXAMINATION TYPE: XR chest 2V DATE OF EXAM: 10/25/2017 COMPARISON: Prior chest x-ray 10/23/2017, CT thoracic spine 08/17/2017 HISTORY: Shortness of breath TECHNIQUE: Frontal and lateral views of the chest are obtained. FINDINGS: There is no focal air space opacity, pleural effusion, or pneumothorax seen. The cardiac silhouette size is within normal limits. The osseous structures are remarkable for multiple healing rib fractures, callus formation, displaced posterior left third rib fracture present. Prominent lung volume compatible with emphysema. IMPRESSION: No acute cardiopulmonary process. Multiple healing rib fractures
--- NOTE | 2017-10-25 10:20 | P.PN ---
Subjective 66-year-old female admitted for generalized pitting and some chronic anemia received 2 units of blood transfusion patient does have history of multiple myeloma patient is hypocalcemic receiving or discharge him IV calcium today. Patient the had fever and his immunosuppressive state because of which patient was started on cefepime patient started having diarrhea quite a bit. Infectious disease is being consulted patient is having cough which is not clearly explained and fever for which is not clearly explained by infectious process because of which patient had a CAT scan of the chest rule out pulmonary embolism which is appropriate and patient had a rash which is believed to be secondary to blood transfusion and is receiving high doses of steroids at this time. Patient's intact PTH is elevated which is in response to hypocalcemia and vitamin D levels are essentially within normal limits. All the cultures are so far negative. Patient does have a metabolic acidosis secondary to hyperchloremia and uremia serum creatinine did improve a little bit can you with IV fluids if her creatinine worsens we'll increase the rate of IV fluids. Constitutional: Denied any fatigue denied any fever. Cardio vascular: denied any chest pain, palpitations Gastrointestinal diarrhea as mentioned above Pulmonary: Denied any shortness of breath cough Neurologic denied any new focal deficits Objective - Vital Signs Vital signs: Vital Signs Temp 97.4 F L 10/25/17 09:06 Pulse 84 10/25/17 09:06 Resp 12 10/25/17 09:06 BP 111/57 10/25/17 09:06 Pulse Ox 97 10/25/17 09:06 Intake & Output 10/24/17 10/25/17 10/25/17 18:59 06:59 18:59 Intake Total 310 Balance 310 Weight 45.359 kg Intake: Blood Product 310 Rc Irr As1 Unit 310 [id number] Other: Voiding Method Toilet Toilet # Voids 2 2 # Bowel Movements 4 2 - Exam PHYSICAL EXAMINATION: GENERAL: The patient is alert and oriented x3, not in any acute distress. Thin built. Does look pale HEENT: Pupils are round and equally reacting to light. EOMI. No scleral icterus. Does have conjunctival pallor. Normocephalic, atraumatic. No pharyngeal erythema. No thyromegaly. CARDIOVASCULAR: S1 and S2 present. No murmurs, rubs, or gallops. PULMONARY: Chest is clear to auscultation, no wheezing or crackles. ABDOMEN: Soft, nontender, nondistended, normoactive bowel sounds. No palpable organomegaly. MUSCULOSKELETAL: No joint swelling or deformity. EXTREMITIES: No cyanosis, clubbing, or pedal edema. NEUROLOGICAL: Gross neurological examination did not reveal any focal deficits. SKIN: She and has multiple areas of redness appears to be ALLERGIC reaction round and cellulitis. - Labs CBC & Chem 7: 10/25/17 07:12 10/25/17 07:12 Labs: Abnormal Lab Results - Last 24 Hours (Table) 10/24/17 10/24/17 10/25/17 Range/Units 09:47 09:47 07:12 RBC 2.73 L 3.01 L (3.80-5.40) m/uL Hgb 8.6 L D 9.1 L (11.4-16.0) gm/dL Hct 25.6 L 27.9 L (34.0-46.0) % RDW 16.0 H 15.9 H (11.5-15.5) % Plt Count 41 L* 69 L D (150-450) k/uL Lymphocytes # 0.4 L (1.0-4.8) k/uL Chloride (98-107) mmol/L Carbon Dioxide (22-30) mmol/L BUN (7-17) mg/dL Creatinine (0.52-1.04) mg/dL Calcium (8.4-10.2) mg/dL PTH Intact 85.7 H (14.0-72.0) pg/mL 10/25/17 Range/Units 07:12 RBC (3.80-5.40) m/uL Hgb (11.4-16.0) gm/dL Hct (34.0-46.0) % RDW (11.5-15.5) % Plt Count (150-450) k/uL Lymphocytes # (1.0-4.8) k/uL Chloride 114 H (98-107) mmol/L Carbon Dioxide 15 L (22-30) mmol/L BUN 42 H (7-17) mg/dL Creatinine 3.17 H (0.52-1.04) mg/dL Calcium 5.5 L* (8.4-10.2) mg/dL PTH Intact (14.0-72.0) pg/mL Microbiology - Last 24 Hours (Table) 10/23/17 19:46 Urine Culture - Final Urine,Catheterized 10/23/17 19:35 Blood Culture - Preliminary Blood No Growth after 24 hours 10/23/17 19:02 Blood Culture - Preliminary Blood No Growth after 24 hours Assessment and Plan Plan: -Fatigue, symptomatically anemia: Patient had 2 units of blood transfusion blood transfusion with improvement in her symptoms -Fever and patient is definitely immunosuppressed because of her multiple myeloma. Patient was started on cefepime. Patient is already receiving Ceftin which she is supposed to be done by tomorrow. No source of infection is evident will obtain sputum cultures. Blood awaiting blood cultures -Rash: Probably ALLERGIC secondary to blood transfusion patient is receiving high-dose steroids -Rule out pulmonary embolism patient will go for CAT scan since her fever and cough which were unexplained rule out pulmonary embolism -Hypocalcemia: Management as mentioned above calcium gluconate and oral calcium supplementation. -Multiple myeloma: Further management as per oncology. -COPD without any acute exacerbation -Hypertension -Acute kidney injury: Secondary to multiple myeloma patient will be continued on IV fluids patient does have acidosis secondary to hyperchloremia. Which to half-normal saline. 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 I cannot stage IV chronic kidney disease as her creatinine is not stabilized yet. -Metabolic acidosis: Both anion gap and non-anion gap metabolic acidosis secondary to uremia and hyperchloremia. -Hyperlipidemia
[2017-10-25] MEDS: methylPREDNISolone SOD SUCCI 125 MG/2 ML VIAL IV SCH ×3 (10:29→23:46)
--- NOTE | 2017-10-25 12:46 | NM ---
EXAMINATION TYPE: NM pul vent and perfuse DATE OF EXAM: 10/25/2017 COMPARISON: Chest x-ray same date, prior nuclear medicine ventilation/perfusion scan 05/24/2017 HISTORY: Difficulty breathing TECHNIQUE: Utilizing inhalation of 40 mCi Tc 99m DTPA aerosol and intravenous injection of 5.11 mCi of Tc 99m MAA, ventilation and perfusion images are acquired post injection in multiple projections. FINDINGS: Normal radiotracer distribution is noted in the lungs. There is no evidence of mismatched defects. Pe rfusion is somewhat improved as compared to ventilation images. Central clumping of the radiopharmace utical on ventilation imaging may be due to underlying COPD. There are apparent prominent lung volume s. IMPRESSION: Low probability for pulmonary embolism.
[2017-10-25] MEDS: CLOPIDOGREL 75 MG TAB PO SCH (12:58)
[2017-10-25] MEDS: SERTRALINE 100 MG TAB PO SCH (12:59)
[2017-10-25] MEDS: CALCIUM CARBONATE 500 MG CHEWABLE PO SCH ×3 (13:00→21:30)
[2017-10-25] MEDS: LATANOPROST 0.005% OPHTH DROPS 2.5 ML BTL BOTH EYES SCH (20:05)
--- NOTE | 2017-10-25 20:47 | P.PN ---
Subjective Progress Note Date: 10/25/17 Principal diagnosis: fever, in treatment for MM Pt seen in f/u, she has a non-puritic rash that started yesterday afternoon, it covers the trunk, back and scattered on the extremities, c/o labored breathing, denies wheezing, in general does not feel good, no fevers, no appetite, watery diarrhea, no bleeding. Objective - Vital Signs Vital signs: Vital Signs Temp 98 F 10/25/17 13:09 Pulse 87 10/25/17 13:09 Resp 20 10/25/17 13:09 BP 113/64 10/25/17 13:09 Pulse Ox 98 10/25/17 13:09 Intake & Output 10/25/17 10/25/17 10/26/17 06:59 18:59 06:59 Intake Total 600 Balance 600 Intake: Intake, IV Titration 600 Amount Sodium Chloride 0.45% 1, 600 000 ml @ 75 mls/hr IV . [id number] [facility] Rx#:[id number] Other: Voiding Method Toilet Toilet # Voids 2 # Bowel Movements 2 3 - Constitutional General appearance: Present: cooperative, mild distress, thin - EENT Eyes: Present: anicteric sclerae ENT: Present: normal oropharynx - Respiratory Respiratory: bilateral: CTA - Cardiovascular Heart sounds: normal: S1, S2 - Gastrointestinal General gastrointestinal: Present: normal bowel sounds, soft - Integumentary Integumentary: Present: rash (red, macular, confluent, trunk and back, scattered on upper arms) - Neurologic Neurologic: Present: CNII-XII intact - Musculoskeletal Musculoskeletal: Present: generalized weakness, strength equal bilaterally - Psychiatric Psychiatric: Present: A&O x's 3, appropriate affect, intact judgment & insight - Labs CBC & Chem 7: 10/25/17 07:12 10/25/17 07:12 Labs: Abnormal Lab Results - Last 24 Hours (Table) 10/24/17 10/25/17 10/25/17 Range/Units 09:47 07:12 07:12 RBC 3.01 L (3.80-5.40) m/uL Hgb 9.1 L (11.4-16.0) gm/dL Hct 27.9 L (34.0-46.0) % RDW 15.9 H (11.5-15.5) % Plt Count 69 L D (150-450) k/uL Chloride 114 H (98-107) mmol/L Carbon Dioxide 15 L (22-30) mmol/L BUN 42 H (7-17) mg/dL Creatinine 3.17 H (0.52-1.04) mg/dL Calcium 5.5 L* (8.4-10.2) mg/dL PTH Intact 85.7 H (14.0-72.0) pg/mL Microbiology - Last 24 Hours (Table) 10/23/17 19:46 Urine Culture - Final Urine,Catheterized 10/23/17 19:35 Blood Culture - Preliminary Blood No Growth after 24 hours 10/23/17 19:02 Blood Culture - Preliminary Blood No Growth after 24 hours Assessment and Plan (1) Fever Narrative/Plan: Afebrile since admit, pancultures negative to today. Current Visit: Yes Status: Acute Priority: High Code(s): R50.9 - FEVER, UNSPECIFIED SNOMED Code(s): 581081491 (2) Multiple myeloma not having achieved remission Narrative/Plan: Pt just started kyprolis, Revlimid and dex regimen and has had 1st cycle, she is on her week off of meds. She will continue with treatment, likely on schedule, as long as she is completely recovered from her current acute illness.. Current Visit: Yes Status: Chronic Priority: Medium Code(s): C90.00 - MULTIPLE MYELOMA NOT HAVING ACHIEVED REMISSION SNOMED Code(s): 267094094 (3) Myeloma kidney disease Narrative/Plan: Renal function stable at this time. Current Visit: Yes Status: Acute Priority: High Code(s): C90.00 - MULTIPLE MYELOMA NOT HAVING ACHIEVED REMISSION; N28.89 - OTHER SPECIFIED DISORDERS OF KIDNEY AND URETER SNOMED Code(s): 63283515 (4) Rash Narrative/Plan: Pt had blood transfsuion yesterday and was given abx yesterday. Unclear the cause of rash but the presentation is suggestive of drug rash. Pt is being treated for the reaction with benadryl and solumedrol, abx stopped. ID has been consulted for abcx recommendations. Current Visit: Yes Status: Acute Priority: High Code(s): R21 - RASH AND OTHER NONSPECIFIC SKIN ERUPTION SNOMED Code(s): 822522499 (5) Diarrhea Narrative/Plan: Stool studies pending. Current Visit: Yes Status: Acute Priority: High Code(s): R19.7 - DIARRHEA , UNSPECIFIED SNOMED Code(s): 02820330 Plan: VQ scan and CXR ordered for SOB Labs and f/u in AM Doctor Attests: I have interviewed and examined patient, reviewed case with MANUFACTURER , documenting as a scribe
[2017-10-25] MEDS: metroNIDAZOLE 500 MG TAB PO SCH (23:45)
--- NOTE | 2017-10-26 06:19 | CONS ---
CONSULTATION DATE OF SERVICE: 10/25/2017 REASON FOR CONSULTATION: 1. Fever. 2. Drug rash. HISTORY OF PRESENT ILLNESS: The patient is a 66-year-old female with a past medical history significant for multiple myeloma diagnosed back in April of 2017 and the patient has been on chemotherapy. The last chemo she completed on 10/17/2017. The patient has been feeling progressively weak since her chemotherapy with low appetite. The patient has been complaining of nausea, vomiting and has multiple loose stools. The patient denies having any blood or mucus in the stool. With these symptoms, the patient was otherwise to be evaluated in the ER. On arrival to the ER, the patient was febrile with a fever of 101.8 degrees Fahrenheit. The patient did have a blood culture done. She was noted to be slightly leukopenic with a white count of 3.7. She did have a UA that was negative. Stool for C difficile checked the next day was negative as well. Stool for occult blood was negative. The patient did have a chest x-ray on admission, which was negative for any acute cardiopulmonary process, but repeat x-ray done this morning has been suggestive of no acute cardiopulmonary process, a pulmonary perfusion testing was low probability for PE. The patient has been treated with cefepime. However, the patient developed generalized maculopapular rash and this was discontinued. I was asked to see the patient for further recommendation regarding antibiotic therapy. REVIEW OF SYSTEMS: CONSTITUTIONAL: Positive for weakness and fever. EYES: No complaint. ENT: No complaint. RESPIRATORY: Occasional cough. CARDIOVASCULAR: No complaint. GENITOURINARY: No complaint. GASTROINTESTINAL: As per HPI. MUSCULOSKELETAL: No complaint. INTEGUMENTARY: No complaint. PSYCHOLOGICAL: No complaint. ENDOCRINE: No complaint. NEUROLOGICAL: No complaint. PAST MEDICAL HISTORY: Her past medical history is multiple myeloma, renal insufficiency, hypertension, hyperlipidemia, CVA, TIA, rheumatoid arthritis, anxiety, glaucoma. PAST SURGICAL HISTORY: Bone marrow biopsy, breast implant, lumbar fusion. SOCIAL HISTORY: The patient quit smoking back in 2014. Has been smoking since the age of 19. Rarely drinks. No drug use. FAMILY HISTORY: Father history of lung cancer. ALLERGIES: Allergies to CIPROFLOXACIN, CODEINE and SULFA. MEDICATIONS: Medications include the patient is currently on Tylenol, [place], Symbicort, Rocaltrol, Tums, Plavix, dexamethasone, Solu-Medrol, Narcan, Zofran, Protonix, Zoloft, Timoptic. PHYSICAL EXAMINATION: On examination, blood pressure is 113/64 with a pulse of 87, temperature of 98. She is 98% on room air. General description is an elderly female lying in bed in no distress. No tachypnea or accessory muscle for respiration use. HEENT examination shows pallor. No scleral icterus. Oral mucous membrane is dry. NECK: Trachea central. No thyromegaly. LUNGS: Unlabored breathing, clear to auscultation. No wheeze or crackle. HEART: S1, S2. Regular rate and rhythm. ABDOMEN: Soft, no tenderness. No guarding or rigidity. EXTREMITIES: No edema of the feet. SKIN EXAMINATION: A generalized maculopapular rash. NEUROLOGICAL: Patient is awake, alert, oriented x3. Mood and affect normal. LABS: Hemoglobin 9.1, white count 6.2, BUN of 42, creatinine 3.17. Electrolytes have been normal. Lactic acid was 1. UA negative. Blood culture negative. Urine culture negative. Chest x-ray with no pneumonia. DIAGNOSTIC IMPRESSION AND PLAN: Patient admitted to the hospital with generalized weakness, did have significant diarrhea in a patient who did have history of multiple myeloma with chemo completed about a week ago in a patient who did have a fever on admission. However, the fever subsequently has resolved. Now the patient has generalized maculopapular rash, more likely secondary cefepime that has been discontinued. The patient currently chest x- ray has been negative for any pneumonia and no clinical findings on lung auscultation. UA has been negative but predominant symptoms has been diarrhea and patient being high risk for Clostridium difficile colitis though the initial testing was done using that has been negative. PLAN: 1. We will check stool for C difficile, PCR and more definite testing for it. 2. Will add oral Flagyl 500 mg 3 times a day. 3. IV fluid. 4. We will follow up on clinical condition and investigation to adjust the medication further if needed. Thank you for this consultation. Will follow this patient along with you. MMODL / IJN: [id number] /
[2017-10-26 08:01] LABS: Anisocytosis Slight; Basophils % (A) 1 %; Eosinophils # (A) 0.1 k/uL (0-0.7); Eosinophils % (A) 2 %; HCT 29.9 % (34.0-46.0); HGB 9.3 gm/dL (11.4-16.0); Hypochromasia Moderate; Lymphocytes # (A) 0.8 k/uL (1.0-4.8); Lymphocytes % (A) 14 %; MCH 30.3 pg (25.0-35.0); MCHC 31.1 g/dL (31.0-37.0); MCV 97.4 fL (80.0-100.0); Macrocytosis Slight; Mean Platelet Volume 9.3; Monocytes # (A) 0.7 k/uL (0-1.0); Monocytes % (A) 12 %; Neutrophils # (A) 3.8 k/uL (1.3-7.7); Neutrophils % (A) 68 %; RBC 3.07 m/uL (3.80-5.40); WBC 5.7 k/uL (3.8-10.6)
[2017-10-26 08:02] LABS: Platelet Count 86 k/uL (150-450)
[2017-10-26] MEDS: SYMBICORT 160-4.5 MCG INHALER INHALATION SCH ×2 (08:28→18:41)
[2017-10-26] MEDS: HYDROcodone/APAP 7.5-325MG 1 EACH TAB PO PRN ×2 (08:50→17:48)
[2017-10-26] MEDS: CALCIUM CARBONATE 500 MG CHEWABLE PO SCH ×4 (08:51→21:09)
[2017-10-26] MEDS: TIMOLOL 0.5% OPHTH DROPS 5 ML BTL LEFT EYE SCH ×2 (08:51→21:10)
[2017-10-26] MEDS: CALCITRIOL 0.25 MCG CAP PO SCH (08:51)
[2017-10-26] MEDS: metroNIDAZOLE 500 MG TAB PO SCH ×3 (08:51→21:09)
[2017-10-26] MEDS: BRIMONIDINE TARTRATE 0.2% DROPS 5 ML BTL BOTH EYES SCH ×2 (08:51→21:10)
[2017-10-26] MEDS: PANTOPRAZOLE 40 MG/10 ML VIAL IVP SCH (08:52)
[2017-10-26] MEDS: methylPREDNISolone SOD SUCCI 125 MG/2 ML VIAL IV SCH ×3 (08:52→23:48)
[2017-10-26] MEDS: diphenhydrAMINE 25 MG CAP PO PRN ×3 (10:25→23:49)
[2017-10-26] MEDS: CHOLESTYRAMINE (WITH SUGAR) 4 GM PACKET PO SCH ×2 (10:30→17:44)
--- NOTE | 2017-10-26 10:30 | P.PN ---
Subjective 66-year-old female admitted for generalized pitting and some chronic anemia received 2 units of blood transfusion patient does have history of multiple myeloma patient is hypocalcemic receiving or discharge him IV calcium today. Patient the had fever and his immunosuppressive state because of which patient was started on cefepime patient started having diarrhea quite a bit. Infectious disease is being consulted patient is having cough which is not clearly explained and fever for which is not clearly explained by infectious process because of which patient had a CAT scan of the chest rule out pulmonary embolism which is appropriate and patient had a rash which is believed to be secondary to blood transfusion and is receiving high doses of steroids at this time. Patient's intact PTH is elevated which is in response to hypocalcemia and vitamin D levels are essentially within normal limits. All the cultures are so far negative. Patient does have a metabolic acidosis secondary to hyperchloremia and uremia serum creatinine did improve a little bit can you with IV fluids if her creatinine worsens we'll increase the rate of IV fluids. 10/26/2017 Patient's VQ scan showed low probably for pulmonary embolism patient has musculoskeletal chest pain probably due to metastatic disease from multiple myeloma patient's ALLERGIC rash improved will use as needed Benadryl. Patient' s cefepime was discontinued as there is no obvious source of infection C. diff DNA PCR is being ordered and patient is anephric metronidazole her diarrhea completely resolved at this time Constitutional: Denied any fatigue denied any fever. Cardio vascular: denied any chest pain, palpitations Gastrointestinal diarrhea as mentioned above Pulmonary: Denied any shortness of breath cough Neurologic denied any new focal deficits Objective - Vital Signs Vital signs: Vital Signs Temp 96.5 F L 10/26/17 05:00 Pulse 79 10/26/17 05:00 Resp 16 10/26/17 05:00 BP 135/61 10/26/17 05:00 Pulse Ox 95 10/26/17 05:00 Intake & Output 10/25/17 10/26/17 10/26/17 18:59 06:59 18:59 Intake Total 600 590 Balance 600 590 Intake: Intake, IV Titration 600 Amount Sodium Chloride 0.45% 1, 600 000 ml @ 75 mls/hr IV . [id number] [facility] Rx#:[id number] Oral 590 Other: Voiding Method Toilet Toilet # Voids 1 # Bowel Movements 3 - Exam PHYSICAL EXAMINATION: GENERAL: The patient is alert and oriented x3, not in any acute distress. Thin built. Does look pale HEENT: Pupils are round and equally reacting to light. EOMI. No scleral icterus. Does have conjunctival pallor. Normocephalic, atraumatic. No pharyngeal erythema. No thyromegaly. CARDIOVASCULAR: S1 and S2 present. No murmurs, rubs, or gallops. PULMONARY: Chest is clear to auscultation, no wheezing or crackles. ABDOMEN: Soft, nontender, nondistended, normoactive bowel sounds. No palpable organomegaly. MUSCULOSKELETAL: No joint swelling or deformity. EXTREMITIES: No cyanosis, clubbing, or pedal edema. NEUROLOGICAL: Gross neurological examination did not reveal any focal deficits. SKIN: She and has multiple areas of redness appears to be ALLERGIC reaction round and cellulitis. - Labs CBC & Chem 7: 10/26/17 06:46 10/25/17 07:12 Labs: Abnormal Lab Results - Last 24 Hours (Table) 10/26/17 Range/Units 06:46 RBC 3.07 L (3.80-5.40) m/uL Hgb 9.3 L (11.4-16.0) gm/dL Hct 29.9 L (34.0-46.0) % RDW 16.0 H (11.5-15.5) % Plt Count 86 L (150-450) k/uL Lymphocytes # 0.8 L (1.0-4.8) k/uL Microbiology - Last 24 Hours (Table) 10/23/17 19:35 Blood Culture - Preliminary Blood No Growth after 48 hours 10/23/17 19:02 Blood Culture - Preliminary Blood No Growth after 48 hours Assessment and Plan Plan: -Fatigue, symptomatically anemia: Patient had 2 units of blood transfusion blood transfusion with improvement in her symptoms -Fever and patient is definitely immunosuppressed because of her multiple myeloma. All the cultures are negative no obvious source of infection no more fevers cefepime was discontinued patient was started on metronidazole diarrhea improved now patient is on cholestyramine and metronidazole and pending C. diff DNA PCR -Rash: Probably ALLERGIC secondary to blood transfusion patient is receiving high-dose steroids, improved today -Ruled out pulmonary embolism with VQ scan which showed low probably pulmonary embolism -Hypocalcemia: Continue with oral supplementation -Multiple myeloma: Further management as per oncology. -COPD without any acute exacerbation -Hypertension -Acute kidney injury: Secondary to multiple myeloma patient will be continued on IV fluids patient does have acidosis secondary to hyperchloremia. Which to half-normal saline. 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 I cannot stage IV chronic kidney disease as her creatinine is not stabilized yet. -Metabolic acidosis: Both anion gap and non-anion gap metabolic acidosis secondary to uremia and hyperchloremia. -Hyperlipidemia
[2017-10-26 10:31] LABS: Potassium 4.3 mmol/L (3.5-5.1)
[2017-10-26 10:39] LABS: Calcium 6.4 mg/dL (8.4-10.2)
[2017-10-26] MEDS: SERTRALINE 100 MG TAB PO SCH (12:04)
[2017-10-26] MEDS: CLOPIDOGREL 75 MG TAB PO SCH (12:05)
--- NOTE | 2017-10-26 13:38 | P.PN ---
Subjective Progress Note Date: 10/26/17 Principal diagnosis: fever, in treatment for MM Pt seen in follow up, her rash is stable, dry and itchy today, no fevers, tolerating oral intake, no nausea, denies SOB, ELIEZER, VQ had low probability for PE, pt has not had diarrhea since yesterday, she states feeling better today, no pain. Objective - Vital Signs Vital signs: Vital Signs Temp 96.5 F L 10/26/17 05:00 Pulse 79 10/26/17 05:00 Resp 16 10/26/17 05:00 BP 135/61 10/26/17 05:00 Pulse Ox 95 10/26/17 05:00 Intake & Output 10/25/17 10/26/17 10/26/17 18:59 06:59 18:59 Intake Total 600 590 Balance 600 590 Intake: Intake, IV Titration 600 Amount Sodium Chloride 0.45% 1, 600 000 ml @ 75 mls/hr IV . [id number] [facility] Rx#:[id number] Oral 590 Other: Voiding Method Toilet Toilet # Voids 1 # Bowel Movements 3 - Constitutional General appearance: Present: cooperative, no acute distress, thin - EENT Eyes: Present: anicteric sclerae - Respiratory Respiratory: bilateral: CTA, diminished - Cardiovascular Heart sounds: normal: S1, S2 - Peripheral edema leg Peripheral Edema: bilateral: None - Gastrointestinal General gastrointestinal: Present: normal bowel sounds, soft - Integumentary Integumentary Comment(s): reddened rash on the trunk, upper arms and upper thighs is stable, no open lesions, skin is dry - Neurologic Neurologic: Present: CNII-XII intact - Musculoskeletal Musculoskeletal: Present: strength equal bilaterally - Psychiatric Psychiatric: Present: A&O x's 3, appropriate affect, intact judgment & insight - Labs CBC & Chem 7: 10/26/17 06:46 10/26/17 06:46 Labs: Abnormal Lab Results - Last 24 Hours (Table) 10/26/17 10/26/17 Range/Units 06:46 06:46 RBC 3.07 L (3.80-5.40) m/uL Hgb 9.3 L (11.4-16.0) gm/dL Hct 29.9 L (34.0-46.0) % RDW 16.0 H (11.5-15.5) % Plt Count 86 L (150-450) k/uL Lymphocytes # 0.8 L (1.0-4.8) k/uL Chloride 118 H (98-107) mmol/L Carbon Dioxide 11 L (22-30) mmol/L BUN 48 H (7-17) mg/dL Creatinine 3.35 H (0.52-1.04) mg/dL Calcium 6.4 L* (8.4-10.2) mg/dL Microbiology - Last 24 Hours (Table) 10/23/17 19:35 Blood Culture - Preliminary Blood No Growth after 48 hours 10/23/17 19:02 Blood Culture - Preliminary Blood No Growth after 48 hours - Imaging and Cardiology VQ report reviewed Assessment and Plan (1) Fever Narrative/Plan: Pancultures are negative at this time. ID consulted, abx adjusted due to concerns for allergic reaction. Pt afebrile Current Visit: Yes Status: Acute Priority: High Code(s): R50.9 - FEVER, UNSPECIFIED SNOMED Code(s): 237233494 (2) Multiple myeloma not having achieved remission Narrative/Plan: Pt just started new regimen 3 weeks ago. She completed kyprolis infusions and 21 days of Revlimid. She takes dexamathasone weekly, this weeks dose was held as pt was on steroids for suspect allergic reaction. She is due to start 2nd cycle next Monday. Labs to evaluate myeloma have been ordered and will decide if pt will proceed with treatment next Monday Current Visit: Yes Status: Chronic Priority: Medium Code(s): C90.00 - MULTIPLE MYELOMA NOT HAVING ACHIEVED REMISSION SNOMED Code(s): 962550812 (3) Myeloma kidney disease Narrative/Plan: Renal function is slightly worse today, labs daily, cont gentle hydration and increase oral intake Current Visit: Yes Status: Acute Priority: High Code(s): C90.00 - MULTIPLE MYELOMA NOT HAVING ACHIEVED REMISSION; N28.89 - OTHER SPECIFIED DISORDERS OF KIDNEY AND URETER SNOMED Code(s): 20765927 (4) Rash Narrative/Plan: Stable, benadryl was ordered for puritis, her steroid was reduced Current Visit: Yes Status: Acute Priority: High Code(s): R21 - RASH AND OTHER NONSPECIFIC SKIN ERUPTION SNOMED Code(s): 050027856 (5) Diarrhea Narrative/Plan: No episodes of diarrhea today, pending ID request for stool specimen Current Visit: Yes Status: Acute Priority: High Code(s): R19.7 - DIARRHEA , UNSPECIFIED SNOMED Code(s): 41793862 Plan: VQ scan low probability for PE, pt previous breathing c/o resolved. Labs and f/u in AM
[2017-10-26 18:55] LABS: Protein, Total 5.7 g/dL (6.2-8.2)
[2017-10-26] MEDS: LATANOPROST 0.005% OPHTH DROPS 2.5 ML BTL BOTH EYES SCH (21:09)
[2017-10-26] MEDS: SODIUM CHLORIDE 0.45% 1,000 ML IV SCH (21:18)
--- NOTE | 2017-10-26 23:10 | PN ---
PROGRESS NOTE DATE OF SERVICE: 10/26/2017 REASON FOR FOLLOWUP: 1. Fever. 2. Diarrhea. INTERVAL HISTORY: The patient's fever has resolved. She is breathing comfortably. Denies having any chest pain or shortness of breath or cough. The patient also has had no bowel movement since yesterday. No nausea or vomiting. Overall feeling better compared to yesterday. The rash has decreased in intensity. PHYSICAL EXAMINATION: Blood pressure 146/69 with a pulse of 86, temperature 97.9. She is 99% on room air. General description is an elderly female up in the bed in no distress. RESPIRATORY SYSTEM: Unlabored breathing. Clear to auscultation anteriorly. HEART: S1, S2. Regular rate and rhythm. ABDOMEN: Soft. No tenderness. SKIN EXAMINATION: Rash, maculopapular, but no worsening. LABS: Hemoglobin 9.3, white count 5.7, BUN of 48, creatinine 3.35. DIAGNOSTIC IMPRESSION AND PLAN: 1. Patient admitted to hospital with fever and generalized weakness which is likely multifactorial. Patient currently with no clinical focus of infection. 2. Diarrhea, though, has resolved. Stool for C difficile could not be completed. She will continue on a short course of Questran and oral Flagyl. 3. Rash, likely secondary to cefepime. That should be documented as her ALLERGY in the future. Continue with the Benadryl. Continue with supportive care. MMODL / IJN: [id number] /
[2017-10-27 05:57] VITALS: BP 127/62; PULSE 82; TEMP 97.9
[2017-10-27] MEDS: SYMBICORT 160-4.5 MCG INHALER INHALATION SCH (08:21)
[2017-10-27] MEDS: diphenhydrAMINE 25 MG CAP PO PRN (08:25)
[2017-10-27] MEDS: methylPREDNISolone SOD SUCCI 125 MG/2 ML VIAL IV SCH (08:26)
[2017-10-27] MEDS: TIMOLOL 0.5% OPHTH DROPS 5 ML BTL LEFT EYE SCH (08:30)
[2017-10-27] MEDS: BRIMONIDINE TARTRATE 0.2% DROPS 5 ML BTL BOTH EYES SCH (08:30)
[2017-10-27] MEDS: PANTOPRAZOLE 40 MG/10 ML VIAL IVP SCH (08:30)
[2017-10-27] MEDS: CALCIUM CARBONATE 500 MG CHEWABLE PO SCH (08:31)
[2017-10-27] MEDS: CALCITRIOL 0.25 MCG CAP PO SCH (08:31)
[2017-10-27] MEDS: metroNIDAZOLE 500 MG TAB PO SCH (08:31)
[2017-10-27 08:39] LABS: Anisocytosis Slight; HCT 25.6 % (34.0-46.0); Hypochromasia Slight; MCH 29.9 pg (25.0-35.0); MCHC 31.1 g/dL (31.0-37.0); MCV 96.4 fL (80.0-100.0); Mean Platelet Volume 8.4; Platelet Count 115 k/uL (150-450); RBC 2.66 m/uL (3.80-5.40); RDW 16.3 % (11.5-15.5); WBC 6.3 k/uL (3.8-10.6)
[2017-10-27] MEDS: CHOLESTYRAMINE (WITH SUGAR) 4 GM PACKET PO SCH (09:33)
[2017-10-27 09:39] VITALS: RESP 18
[2017-10-27 09:42] LABS: Eosinophils # (M) 0.32 k/uL (0-0.7); Lymphocytes # (M) 0.88 k/uL (1.0-4.8); Monocytes # (M) 0.63 k/uL (0-1.0); Neutrophils # (M) 4.47 k/uL (1.3-7.7); Neutrophils % (M) 71 %; Nucleated Red Blood Cells 0 /100 WBC (0-0); Total Cells Counted 100
[2017-10-27 09:43] LABS: Poikilocytosis (M) Present
--- NOTE | 2017-10-27 10:50 | P.DS ---
Providers Date of admission: 10/23/17 23:35 Attending physician: Derrek Johnson Consults: 10/23/17 23:36 Consult Physician Urgent Consulting Provider: Efren Larson Consult Reason/Comments: Oncological care Do you want consulting provider notified?: Yes 10/25/17 09:13 Consult Physician Routine Consulting Provider: Bette Cole Consult Reason/Comments: possible abx reaction, abx mgmt Do you want consulting provider notified?: Yes Primary care physician: [facility] Course: 66-year-old female admitted for generalized pitting and some chronic anemia received 2 units of blood transfusion patient does have history of multiple myeloma patient is hypocalcemic receiving or discharge him IV calcium today. Patient the had fever and his immunosuppressive state because of which patient was started on cefepime patient started having diarrhea quite a bit. Infectious disease is being consulted patient is having cough which is not clearly explained and fever for which is not clearly explained by infectious process because of which patient had a CAT scan of the chest rule out pulmonary embolism which is appropriate and patient had a rash which is believed to be secondary to blood transfusion and is receiving high doses of steroids at this time. Patient's intact PTH is elevated which is in response to hypocalcemia and vitamin D levels are essentially within normal limits. All the cultures are so far negative. Patient does have a metabolic acidosis secondary to hyperchloremia and uremia serum creatinine did improve a little bit can you with IV fluids if her creatinine worsens we'll increase the rate of IV fluids. 10/26/2017 Patient's VQ scan showed low probably for pulmonary embolism patient has musculoskeletal chest pain probably due to metastatic disease from multiple myeloma patient's ALLERGIC rash improved will use as needed Benadryl. Patient' s cefepime was discontinued as there is no obvious source of infection C. diff DNA PCR is being ordered and patient is On metronidazole her diarrhea completely resolved at this time 10/27/2017 Patient is clinically doing well still has the rash patient will discharge on weaning dose of steroids diarrhea resolved no fevers patient will be discharged on metronidazole if agreeable with the oncology, patient was cleared by infectious disease. PHYSICAL EXAMINATION: GENERAL: The patient is alert and oriented x3, not in any acute distress. Thin built. Does look pale HEENT: Pupils are round and equally reacting to light. EOMI. No scleral icterus. Does have conjunctival pallor. Normocephalic, atraumatic. No pharyngeal erythema. No thyromegaly. CARDIOVASCULAR: S1 and S2 present. No murmurs, rubs, or gallops. PULMONARY: Chest is clear to auscultation, no wheezing or crackles. ABDOMEN: Soft, nontender, nondistended, normoactive bowel sounds. No palpable organomegaly. MUSCULOSKELETAL: No joint swelling or deformity. EXTREMITIES: No cyanosis, clubbing, or pedal edema. NEUROLOGICAL: Gross neurological examination did not reveal any focal deficits. SKIN: She and has multiple areas of redness appears to be ALLERGIC reaction round and cellulitis. Assessment and Plan Plan: -Fatigue, symptomatically anemia: Patient had 2 units of blood transfusion blood transfusion with improvement in her symptoms -Fever and patient is definitely immunosuppressed because of her multiple myeloma. All the cultures are negative no obvious source of infection no more fevers cefepime was discontinued patient was started on metronidazole diarrhea improved now patient is on cholestyramine and metronidazole and no more diarrhea -Rash: Probably ALLERGIC secondary to blood transfusion patient will be discharged on weaning dose of steroids -Ruled out pulmonary embolism with VQ scan which showed low probably pulmonary embolism -Hypocalcemia: Continue with oral supplementation, improved -Multiple myeloma: Further management as per oncology as an outpatient. -COPD without any acute exacerbation -Hypertension -Acute kidney injury: Secondary to multiple myeloma patient -Metabolic acidosis: Both anion gap and non-anion gap metabolic acidosis secondary to uremia and hyperchloremia. Improved -Hyperlipidemia Plan - Discharge Summary New Discharge Prescriptions: New Calcium Carbonate [Tums] 1,000 mg PO QID #90 chew metroNIDAZOLE [Flagyl] 500 mg PO TID #20 tab predniSONE 10 mg PO DAILY #30 tab Ranitidine HCl [Zantac] 150 mg PO BID #30 tab Continue Budesonide-Formot 160-4.5 Mcg [Symbicort 160-4.5 Mcg Inhaler] 2 puff INHALATION RT-BID Dexamethasone 20 mg PO MO Calcitriol 0.25 mcg PO DAILY Discontinued Lenalidomide [Revlimid] 15 mg PO DIRECTED Cefuroxime [Ceftin] 250 mg PO BID No Action Latanoprost Ophth [Xalatan 0.005%] 1 drops BOTH EYES HS Sertraline [Zoloft] 200 mg PO AC-LUNCH Clopidogrel [Plavix] 75 mg PO AC-LUNCH Brimonidine Tartrate [Alphagan P 0.2% Ophth Soln] 1 drops BOTH EYES BID Sodium Bicarbonate Tab 650 mg PO BID #60 tab Timolol 0.5% Ophth Soln [Timoptic 0.5% Ophth Soln] 1 drop LEFT EYE BID HYDROcodone/APAP 7.5-325MG [[place] 7.5-325] 1 tab PO TID PRN #30 tab PRN Reason: Pain Discharge Medication List Clopidogrel [Plavix] 75 mg PO AC-LUNCH 01/28/17 [History] Latanoprost Ophth [Xalatan 0.005%] 1 drops BOTH EYES HS 01/28/17 [History] Sertraline [Zoloft] 200 mg PO AC-LUNCH 01/28/17 [History] Brimonidine Tartrate [Alphagan P 0.2% Ophth Soln] 1 drops BOTH EYES BID [History] Sodium Bicarbonate Tab 650 mg PO BID #60 tab 05/29/17 [Rx] Timolol 0.5% Ophth Soln [Timoptic 0.5% Ophth Soln] 1 drop LEFT EYE BID 08/03/17 [History] HYDROcodone/APAP 7.5-325MG [[place] 7.5-325] 1 tab PO TID PRN #30 tab 08/05/17 [Rx ] Budesonide-Formot 160-4.5 Mcg [Symbicort 160-4.5 Mcg Inhaler] 2 puff INHALATION RT-BID 10/23/17 [History] Calcitriol 0.25 mcg PO DAILY 10/23/17 [History] Dexamethasone 20 mg PO MO 10/23/17 [History] Calcium Carbonate [Tums] 1,000 mg PO QID #90 chew 10/27/17 [Rx] Ranitidine HCl [Zantac] 150 mg PO BID #30 tab 10/27/17 [Rx] metroNIDAZOLE [Flagyl] 500 mg PO TID #20 tab 10/27/17 [Rx] predniSONE 10 mg PO DAILY #30 tab 10/27/17 [Rx] Follow up Appointment(s)/Referral(s): Efren Larson MD [STAFF PHYSICIAN] - 10/30/17 2:00 pm (this appt is at [facility]. ) Kirby Villalobos DO [Primary Care Provider] - 1-2 days
[2017-10-27] MEDS: SODIUM CHLORIDE 0.45% 1,000 ML IV SCH (11:25)
[2017-10-27 13:40] LABS: Albumin 3.36 g/dL (3.80-4.90); Gamma Globulin 0.37 g/dL (0.70-1.50)
--- NOTE | 2017-10-27 14:13 | P.PN ---
Subjective Progress Note Date: 10/27/17 Principal diagnosis: Blood counts recovery Yessenia is doing better, her blood counts are recovering and she is afebrile. Her skin rash is still diffuse, it extends to her under arms, rectum, and vaginal creeses causing discomfort. Objective - Vital Signs Vital signs: Vital Signs Temp 97.9 F 10/27/17 05:00 Pulse 82 10/27/17 05:00 Resp 18 10/27/17 08:00 BP 127/62 10/27/17 05:00 Pulse Ox 98 10/27/17 05:00 Intake & Output 10/26/17 10/27/17 10/27/17 18:59 06:59 18:59 Intake Total 600 1310 Balance 600 1310 Weight 45.359 kg Intake: Intake, IV Titration 600 600 Amount Sodium Chloride 0.45% 1, 600 600 000 ml @ 75 mls/hr IV . [id number] OLIVE Rx#:[id number] Oral 710 Other: Voiding Method Toilet # Voids 1 2 - Constitutional General appearance: Present: cooperative, no acute distress - EENT Eyes: Present: EOMI, PERRLA, dentition normal ENT: Present: NA/AT, normal oropharynx - Neck Details: supple, trachea midline Neck: Present: normal ROM - Respiratory Respiratory: bilateral: CTA (no increased effort) - Cardiovascular Rhythm: regular Heart sounds: normal: S1, S2 - Gastrointestinal General gastrointestinal: Present: normal bowel sounds, soft - Integumentary Integumentary Comment(s): Raised papular erythema rash to under arms and anterior posterior thoracic, vaginal creases, inner thighs and down to rectum Integumentary: Present: rash - Neurologic Neurologic: Present: CNII-XII intact - Musculoskeletal Musculoskeletal Comment(s): no focal defects Musculoskeletal: Present: gait normal - Psychiatric Psychiatric: Present: A&O x's 3, appropriate affect, intact judgment & insight - Labs CBC & Chem 7: 10/27/17 07:30 10/26/17 06:46 Labs: Abnormal Lab Results - Last 24 Hours (Table) 10/26/17 10/27/17 Range/Units 06:46 07:30 RBC 2.66 L (3.80-5.40) m/uL Hgb 8.0 L (11.4-16.0) gm/dL Hct 25.6 L (34.0-46.0) % RDW 16.3 H (11.5-15.5) % Plt Count 115 L (150-450) k/uL Lymphocytes # (Manual) 0.88 L (1.0-4.8) k/uL Total Protein (PEP) 5.7 L (6.2-8.2) g/dL Free [place] LC, Quant 15.80 H (0.33-1.94) mg/dL Microbiology - Last 24 Hours (Table) 10/26/17 13:55 Gram Stain - Preliminary Sputum 10/23/17 19:35 Blood Culture - Preliminary Blood No Growth after 72 hours 10/23/17 19:02 Blood Culture - Preliminary Blood No Growth after 72 hours Assessment and Plan Plan: Assessment and Plan (1) Fever Narrative/Plan: Pancultures are negative at this time. ID consulted, abx adjusted due to concerns for allergic reaction. Pt afebrile greater than 24 hours, overall improved/resolved Current Visit: Yes Status: Acute Priority: High Code(s): R50.9 - FEVER, UNSPECIFIED SNOMED Code(s): 347160234 (2) Multiple myeloma not having achieved remission Narrative/Plan: Pt just started new regimen 3 weeks ago. She completed kyprolis infusions and 21 days of Revlimid. She takes dexamathasone weekly, this weeks dose was held as pt was on steroids for suspect allergic reaction. She is due to start 2nd cycle next Monday. Labs to evaluate myeloma have been ordered and will decide if pt will proceed with treatment next Monday - A follow-up appointment to re-assess in [facility] has been made Current Visit: Yes Status: Chronic Priority: Medium Code(s): C90.00 - MULTIPLE MYELOMA NOT HAVING ACHIEVED REMISSION SNOMED Code(s): 682380943 (3) Myeloma kidney disease Narrative/Plan: Renal function remains same labs daily, cont gentle hydration and increase oral intake Current Visit: Yes Status: Acute Priority: High Code(s): C90.00 - MULTIPLE MYELOMA NOT HAVING ACHIEVED REMISSION; N28.89 - OTHER SPECIFIED DISORDERS OF KIDNEY AND URETER SNOMED Code(s): 23314076 (4) Rash Narrative/Plan: - Diffuse and very irritating, no change per patient: - I have sent a prescription throughoutpatient pharmacy for topical numbing, itching, and emollient to assist with symptoms - Continue on steroids at discharge and benadryl. Current Visit: Yes Status: Acute Priority: High Code(s): R21 - RASH AND OTHER NONSPECIFIC SKIN ERUPTION SNOMED Code(s): 861215890 (5) Bicytopenia: Narrative/Plan: Platelets are recovering and hemoglobin stable today Ok for discharge from oncology standpoint. She is to continue on acyclovir and corticosteroids along with ID recs.
--- NOTE | 2017-10-27 17:20 | PN ---
PROGRESS NOTE DATE OF SERVICE: 10/27/2017. REASON FOR FOLLOW UP: 1. Fever, resolved. 2. Drug rash secondary to cefepime. 3. Diarrhea, questionable infection. INTERVAL HISTORY: The patient is afebrile. She is breathing comfortably. Denies any chest pain. No shortness of breath or cough. No abdominal pain. Her diarrhea has resolved. No nausea, no vomiting. EXAMINATION: Blood pressure 127/52 with a pulse of 82. Temperature 97.9. She is 98% on room air. General description is a elderly female up in the room in no distress. RESPIRATORY SYSTEM: Unlabored breathing. Clear to auscultation anteriorly. HEART: S1, S2. Regular rate and rhythm. ABDOMEN: Soft, no tenderness. SKIN: Rash decreased intensity. LABS: Hemoglobin is 8 with white count 6.3. Sputum culture has been negative so far. Blood cultures negative. Urine is negative. DIAGNOSTIC IMPRESSION AND PLAN: 1. Patient with fever; however, the patient did have extensive workup all of which has been negative. She has been afebrile for the last few days now. 2. Patient with a rash secondary to CEFEPIME that should be documented as ALLERGY. 3. The patient with diarrhea with question of possible infectious etiology, resolved. Will give a short course of Questran as needed and 1 week of Flagyl with close outpatient followup. MMODL / IJN: [id number] /
[2017-10-27] MEDS ORDERED: predniSONE 20 MG TAB PO SCH (21:00)
[2017-10-28] MEDS ORDERED: PANTOPRAZOLE 40 MG TABLET PO SCH (07:30)
--- NOTE | 2017-10-30 17:11 | CDI ---
Last Revision, February 2017 Documentation Clarification Form Date: 10/30/17 From: Krista Martinez Phone: If you have a question regarding this query, please contact Lucero Pemberton at [phone] between 8am and 5pm. Admit Date: 10/23/2017 11:35:00 PM Patient Name: Lucero Coleman Visit Number: [id number] Discharge Date: 10/27/17 ATTENTION: The Clinical Documentation Specialists (CDI) and [facility] Coding Staff appreciate your assistance in clarifying documentation. Please respond to the clarification below the line at the bottom and electronically sign. The CDI & [facility] Coding staff will review the response and follow-up if needed. Please note: Queries are made part of the Legal Health Record. If you have any questions, please contact the author of this message via ITS. John Pantoja MD A diagnosis of anemia lacks specificity to accurately reflect your patients severity of condition and clarification is needed. History/Risk Factors: Patient has a history of multiple myeloma and chronic kidney disease Clinical indicators: Generalized fatigue. Hemoglobin: 5.7 Hematocrit: 16.8 Treatment: 2 units of PRBCs transfused, monitoring labs In order to capture the severity of condition, please clarify the type of anemia and etiology if known: Acute blood loss anemia Acute on chronic blood loss anemia Chronic blood loss anemia Iron deficiency anemia Hemolytic anemia Drug induced anemia Anemia due to malignancy Nutritional anemia Anemia of chronic kidney disease Unable to determine Other, please specify Anemia due to malignancy MTDD
== END 2017-10-27 14:15 | disposition home or self-care (01) | DRG 841 ==
LOC: EC 18:38 → 5ONC 23:35
PROVIDERS: ADMIT Hospitalist; ATTEND Hospitalist
PROC: 30233N1 Transfusion of Nonautologous Red Blood Cells into Peripheral Vein, Percutaneous Approach (ICD-10-PCS; principal; 2017-10-24)
DX: C90.00 Multiple myeloma not having achieved remission (principal); E87.2 Acidosis; N17.9 Acute kidney failure, unspecified; N39.0 Urinary tract infection, site not specified; N18.4 Chronic kidney disease, stage 4 (severe); E83.51 Hypocalcemia; E87.8 Other disorders of electrolyte and fluid balance, not elsewhere classified; D63.0 Anemia in neoplastic disease; D64.9 Anemia, unspecified; D72.819 Decreased white blood cell count, unspecified; E78.5 Hyperlipidemia, unspecified; G89.3 Neoplasm related pain (acute) (chronic); H40.9 Unspecified glaucoma; I12.9 Hypertensive chronic kidney disease with stage 1 through stage 4 chronic kidney disease, or unspecified chronic kidney disease; J44.9 Chronic obstructive pulmonary disease, unspecified; L27.0 Generalized skin eruption due to drugs and medicaments taken internally; M06.9 Rheumatoid arthritis, unspecified; T36.1X5A Adverse effect of cephalosporins and other beta-lactam antibiotics, initial encounter; R19.7 Diarrhea, unspecified; F41.9 Anxiety disorder, unspecified; R50.9 Fever, unspecified; N28.89 Other specified disorders of kidney and ureter; Z79.51 Long term (current) use of inhaled steroids; Z79.899 Other long term (current) drug therapy; Z88.1 Allergy status to other antibiotic agents; Z88.5 Allergy status to narcotic agent; Z88.2 Allergy status to sulfonamides; Z98.82 Breast implant status; Z87.440 Personal history of urinary (tract) infections; Z85.830 Personal history of malignant neoplasm of bone; Z98.1 Arthrodesis status; Z87.891 Personal history of nicotine dependence; I69.944 Monoplegia of lower limb following unspecified cerebrovascular disease affecting left non-dominant side; Z80.1 Family history of malignant neoplasm of trachea, bronchus and lung
CPT/HCPCS: 36415; 71046; 78582; 80048; 80053; 81001; 82272; 82306; 82330; 83605; 83883; 83970; 84165; 85025; 85027; 85610; 85730; 86850; 86900; 86901; 86920; 87040; 87070; 87086; 87205; 87324; 93005; 94640; 96361; 96365; 99285

== ENCOUNTER 2017-11-09 13:36 | Inpatient (IN) | payer MEDICARE ==
[2017-11-09] MEDS ORDERED: ALBUTEROL NEBULIZED 2.5 MG/3 ML INHALATION STA (14:01)
[2017-11-09] MEDS ORDERED: LORazepam 2 MG/ML INJ IV STA (14:01)
[2017-11-09] MEDS ORDERED: SODIUM CHLORIDE 0.9% 500 ML IV STA (14:01)
[2017-11-09] MEDS ORDERED: SODIUM CHLORIDE 0.9% 1,000 ML IV STA ×2 (14:01)
[2017-11-09] MEDS ORDERED: methylPREDNISolone SOD SUCCI 125 MG/2 ML VIAL IV STA (14:01)
[2017-11-09] MEDS ORDERED: IPRATROPIUM 0.5 MG/2.5 ML NEBU INHALATION STA (14:01)
[2017-11-09] MEDS ORDERED: MORPHINE SULFATE 2 MG/ML SYRINGE IVP STA (14:01)
[2017-11-09] MEDS ORDERED: DILTIAZEM DRIP BOLUS FROM BAG 1 MG SOLN IV ONE (14:04)
--- NOTE | 2017-11-09 14:06 | ED ---
General Adult HPI - General Chief complaint: Shortness of Breath Stated complaint: ELIEZER Time Seen by Provider: 11/09/17 13:41 Source: patient, RN notes reviewed, old records reviewed Mode of arrival: EMS Limitations: no limitations, language barrier - History of Present Illness Initial comments: This is a 66-year-old female the ER for evaluation. Patient has underlying COPD heart disease. She is in significant distress unable to give history secondary to stress. History is obtained from patient transferred report, EMS prior chart - Related Data Home Medications Medication Instructions Recorded Confirmed Clopidogrel [Plavix] 75 mg PO AC-LUNCH 01/28/17 11/09/17 Latanoprost Ophth [Xalatan 0.005%] 1 drops BOTH EYES HS 01/28/17 11/09/17 Sertraline [Zoloft] 200 mg PO AC-LUNCH 01/28/17 11/09/17 Brimonidine Tartrate [Alphagan P 1 drops BOTH EYES BID 04/05/17 11/09/17 0.2% Ophth Soln] Timolol 0.5% Ophth Soln [Timoptic 1 drop LEFT EYE BID 08/03/17 11/09/17 0.5% Ophth Soln] Budesonide-Formot 160-4.5 Mcg 2 puff INHALATION RT-BID 10/23/17 11/09/17 [Symbicort 160-4.5 Mcg Inhaler] Calcitriol 0.25 mcg PO DAILY 10/23/17 11/09/17 Dexamethasone 20 mg PO MO 10/23/17 11/09/17 Previous Rx's Medication Instructions Recorded Sodium Bicarbonate Tab 650 mg PO BID #60 tab 05/29/17 HYDROcodone/APAP 7.5-325MG [Jupiter 1 tab PO TID PRN #30 tab 08/05/17 7.5-325] Calcium Carbonate [Tums] 1,000 mg PO QID #90 chew 10/27/17 Cholestyramine (with Sugar) 4 gm PO BID@1000,1800 PRN #20 10/27/17 [Questran Packet] packet Ranitidine HCl [Zantac] 150 mg PO BID #30 tab 10/27/17 metroNIDAZOLE [Flagyl] 500 mg PO TID #20 tab 10/27/17 Allergies Allergy/AdvReac Type Severity Reaction Status Date / Time ciprofloxacin HCl Allergy Lip Verified 11/09/17 14:21 [From Cipro] swelling, itching codeine Allergy Unknown Verified 11/09/17 14:21 Sulfa (Sulfonamide Allergy Unknown Verified 11/09/17 14:21 Antibiotics) Review of Systems ROS Statement: Those systems with pertinent positive or pertinent negative responses have been documented in the HPI. ROS Other: All systems not noted in ROS Statement are negative. 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 anxiety History of Any Multi-Drug Resistant Organisms: None Reported Past Surgical History: Back Surgery Additional Past Surgical History / Comment(s): LUMBAR FUSION 1.5 YRS AGO, BREAST IMPLANTS IN THE 70'S REMOVED MID 90'S Past Anesthesia/Blood Transfusion Reactions: No Reported Reaction Past Psychological History: No Psychological Hx Reported Smoking Status: Former smoker Past Alcohol Use History: Rare Past Drug Use History: None Reported - Past Family History Father Additional Family Medical History / Comment(s): FATHER 99 YRS OLD STILL LIVING HAS PROSTATE ISSUES Mother Family Medical History: Cancer Additional Family Medical History / Comment(s): LUNG CANCER General Exam Limitations: no limitations, language barrier General appearance: alert, anxious, in distress Head exam: Present: atraumatic, normocephalic, normal inspection Eye exam: Present: normal appearance, PERRL, EOMI. Absent: scleral icterus, conjunctival injection, periorbital swelling ENT exam: Present: normal exam, mucous membranes moist Neck exam: Present: normal inspection. Absent: tenderness, meningismus, lymphadenopathy Respiratory exam: Present: respiratory distress, wheezes, accessory muscle use, decreased breath sounds, prolonged expiratory. Absent: rales, rhonchi, stridor Cardiovascular Exam: Present: tachycardia, irregular rhythm, normal heart sounds. Absent: systolic murmur, diastolic murmur, rubs, gallop, clicks GI/Abdominal exam: Present: soft, normal bowel sounds. Absent: distended, tenderness, guarding, rebound, rigid Extremities exam: Present: normal inspection, full ROM, normal capillary refill. Absent: tenderness, pedal edema, joint swelling, calf tenderness Back exam: Present: normal inspection Neurological exam: Present: alert, oriented X3, CN II-XII intact Psychiatric exam: Present: normal affect, normal mood Skin exam: Present: warm, dry, intact, normal color. Absent: rash Course Vital Signs 11/09/17 11/09/17 11/09/17 13:46 14:39 14:53 Temperature 96.7 F L Pulse Rate 155 H 146 H 160 H Respiratory 32 H 32 H Rate Blood Pressure 155/78 159/77 O2 Sat by Pulse 96 97 Oximetry 11/09/17 15:10 Temperature Pulse Rate 109 H Respiratory Rate Blood Pressure O2 Sat by Pulse Oximetry - Reevaluation(s) Reevaluation #1: 11/09/17 16:39 Patient placed on BiPAP and did show significant improvement on BiPAP with breathing machine and breathing treatments Reevaluation #2: 11/09/17 16:39 Patient looks like he may have underlying liver CHF will be treated for both appropriately Reevaluation #3: 11/09/17 16:40 Severely elevated d-dimer, patient to be started on high-dose heparin therapy, patient received echo and nuclear medicine tests are hopefully low probability PE EKG Findings - EKG Comments: EKG Findings:: EKG shows a flutter rate of 134, QRS 88, QTC 381 Medical Decision Making - Medical Decision Making 66 female the ER for evasive significant shortness of breath, multifactorial respiratory failure secondary COPD, CHF and likely pneumonia. Patient has possibility of PE as well as history of cancer significantly elevated d-dimer, started on high-dose heparin, unable to get VQ scan secondary to BiPAP, unable to get CTA secondary to increased creatinine, patient will get echo for evaluation of further right heart strain. - Lab Data Result diagrams: 11/09/17 14:16 11/09/17 14:16 Lab Results 11/09/17 11/09/17 11/09/17 Range/Units 14:16 14:16 14:16 WBC 10.9 H (3.8-10.6) k/uL RBC 2.57 L (3.80-5.40) m/uL Hgb 8.3 L (11.4-16.0) gm/dL Hct 26.2 L (34.0-46.0) % MCV 101.9 H D (80.0-100.0) fL MCH 32.1 (25.0-35.0) pg MCHC 31.5 (31.0-37.0) g/dL RDW 17.9 H (11.5-15.5) % Plt Count 120 L (150-450) k/uL Neutrophils % 65 % Lymphocytes % 20 % Monocytes % 5 % Eosinophils % 7 % Basophils % 1 % Neutrophils # 7.0 (1.3-7.7) k/uL Lymphocytes # 2.2 (1.0-4.8) k/uL Monocytes # 0.6 (0-1.0) k/uL Eosinophils # 0.7 (0-0.7) k/uL Basophils # 0.1 (0-0.2) k/uL Hypochromasia Marked Anisocytosis Slight Macrocytosis Moderate PT (9.0-12.0) sec INR (<1.2) APTT (22.0-30.0) sec D-Dimer (<0.60) mg/L FEU Sodium 143 (137-145) mmol/L Potassium 5.4 H (3.5-5.1) mmol/L Chloride 113 H (98-107) mmol/L Carbon Dioxide 14 L (22-30) mmol/L Anion Gap 16 mmol/L BUN 73 H (7-17) mg/dL Creatinine 3.46 H (0.52-1.04) mg/dL Est GFR (CKD-EPI)AfAm 15 (>60 ml/min/1.73 sqM) Est GFR (CKD-EPI)NonAf 13 (>60 ml/min/1.73 sqM) Glucose 296 H (74-99) mg/dL Calcium 8.1 L (8.4-10.2) mg/dL Magnesium 2.0 (1.6-2.3) mg/dL Total Bilirubin 0.5 (0.2-1.3) mg/dL AST 153 H (14-36) U/L ALT 209 H (9-52) U/L Alkaline Phosphatase 78 (38-126) U/L Total Creatine Kinase 43 (30-135) U/L CK-MB (CK-2) 2.2 (0.0-2.4) ng/mL CK-MB (CK-2) Rel Index 5.1 Troponin I 0.057 H* (0.000-0.034) ng/mL NT-Pro-B Natriuret Pep pg/mL Total Protein 5.1 L (6.3-8.2) g/dL Albumin 3.1 L (3.5-5.0) g/dL 11/09/17 11/09/17 Range/Units 14:16 15:10 WBC (3.8-10.6) k/uL RBC (3.80-5.40) m/uL Hgb (11.4-16.0) gm/dL Hct (34.0-46.0) % MCV (80.0-100.0) fL MCH (25.0-35.0) pg MCHC (31.0-37.0) g/dL RDW (11.5-15.5) % Plt Count (150-450) k/uL Neutrophils % % Lymphocytes % % Monocytes % % Eosinophils % % Basophils % % Neutrophils # (1.3-7.7) k/uL Lymphocytes # (1.0-4.8) k/uL Monocytes # (0-1.0) k/uL Eosinophils # (0-0.7) k/uL Basophils # (0-0.2) k/uL Hypochromasia Anisocytosis Macrocytosis PT 11.8 (9.0-12.0) sec INR 1.2 H (<1.2) APTT 19.9 L (22.0-30.0) sec D-Dimer 11.33 H (<0.60) mg/L FEU Sodium (137-145) mmol/L Potassium (3.5-5.1) mmol/L Chloride (98-107) mmol/L Carbon Dioxide (22-30) mmol/L Anion Gap mmol/L BUN (7-17) mg/dL Creatinine (0.52-1.04) mg/dL Est GFR (CKD-EPI)AfAm (>60 ml/min/1.73 sqM) Est GFR (CKD-EPI)NonAf (>60 ml/min/1.73 sqM) Glucose (74-99) mg/dL Calcium (8.4-10.2) mg/dL Magnesium (1.6-2.3) mg/dL Total Bilirubin (0.2-1.3) mg/dL AST (14-36) U/L ALT (9-52) U/L Alkaline Phosphatase (38-126) U/L Total Creatine Kinase (30-135) U/L CK-MB (CK-2) (0.0-2.4) ng/mL CK-MB (CK-2) Rel Index Troponin I (0.000-0.034) ng/mL NT-Pro-B Natriuret Pep 23316 pg/mL Total Protein (6.3-8.2) g/dL Albumin (3.5-5.0) g/dL Critical Care Time Critical Care Time: Yes Total Critical Care Time: 31 Disposition Clinical Impression: Congestive heart failure, Acute pulmonary edema, Community acquired pneumonia, Adult respiratory distress syndrome, ARF (acute renal failure), Acute exacerbation of chronic obstructive airways disease Disposition: ADMITTED IP TO THIS [facility] Condition: Critical Is patient prescribed a controlled substance at d/c from ED?: No Referrals: Kirby Villalobos DO [Primary Care Provider] - 1-2 days
[2017-11-09 14:27] LABS: Anisocytosis Slight; Basophils # (A) 0.1 k/uL (0-0.2); Basophils % (A) 1 %; Eosinophils # (A) 0.7 k/uL (0-0.7); Eosinophils % (A) 7 %; HCT 26.2 % (34.0-46.0); HGB 8.3 gm/dL (11.4-16.0); Hypochromasia Marked; Lymphocytes # (A) 2.2 k/uL (1.0-4.8); Lymphocytes % (A) 20 %; MCH 32.1 pg (25.0-35.0); MCHC 31.5 g/dL (31.0-37.0); Macrocytosis Moderate; Mean Platelet Volume 8.5; Monocytes # (A) 0.6 k/uL (0-1.0); Monocytes % (A) 5 %; Neutrophils % (A) 65 %; Platelet Count 120 k/uL (150-450); RBC 2.57 m/uL (3.80-5.40); RDW 17.9 % (11.5-15.5); WBC 10.9 k/uL (3.8-10.6)
[2017-11-09 14:30] LABS: MCV 101.9 fL (80.0-100.0)
--- NOTE | 2017-11-09 14:37 | XR ---
EXAMINATION TYPE: XR chest 1V portable DATE OF EXAM: 11/09/2017 COMPARISON: 10/25/2017 INDICATION: Short of breath TECHNIQUE: Single frontal view of the chest is obtained. FINDINGS: The heart size is enlarged. The pulmonary vasculature is prominent. Mild diffuse increased lung markings are present. Small left pleural effusion has developed. Old left rib fractures are again evident. Lateral right rib healing fractures are evident. IMPRESSION: 1. Cardiomegaly. 2. Small left pleural effusion. 3. Healing right and left rib fractures. Some acute fracture along the lateral seventh lateral rib ma y be present.
[2017-11-09 14:39] LABS: Albumin 3.1 g/dL (3.5-5.0); Calcium 8.1 mg/dL (8.4-10.2); Potassium 5.4 mmol/L (3.5-5.1); Total Bilirubin 0.5 mg/dL (0.2-1.3); Total Protein 5.1 g/dL (6.3-8.2)
[2017-11-09] MEDS: DILTIAZEM 50 MG in SODIUM CHLORIDE 0.9% 40 ML IV SCH ×2 (14:50→18:50)
[2017-11-09 15:18] LABS: Creatine Kinase MB 2.2 ng/mL (0.0-2.4)
[2017-11-09 15:20] LABS: Troponin I 0.057 ng/mL (0.000-0.034)
[2017-11-09] MEDS ORDERED: PNEUMONIA PROTOCOL UTILIZED 1 EACH MISC PO PRN (16:26)
[2017-11-09 16:27] LABS: INR 1.2 (<1.2); Prothrombin Time 11.8 sec (9.0-12.0)
[2017-11-09] MEDS ORDERED: AZITHROMYCIN 500 MG in DEXTROSE 5% IN WATER 250 ML IVPB STA ×2 (16:31)
[2017-11-09 16:32] LABS: D-Dimer 11.33 mg/L FEU (<0.60); Partial Thromboplastin Time 19.9 sec (22.0-30.0)
[2017-11-09] MEDS ORDERED: HEPARIN SODIUM,PORCINE 5,000 UNIT/ML 1 ML VIAL IV ONE (16:35)
[2017-11-09] MEDS ORDERED: HEPARIN SOD,PORK IN 0.45% NACL 25,000 UNIT in 0.45% NACL 1 500ML.BAG IV SCH (16:45)
[2017-11-09] MEDS ORDERED: AZITHROMYCIN 500 MG in SODIUM CHLORIDE 0.9% 250 ML IVPB STA (16:48)
[2017-11-09] MEDS: IPRATROPIUM-ALBUTEROL 3 ML NEB INHALATION SCH (20:47)
[2017-11-09] MEDS ORDERED: HYDROcodone/APAP 7.5-325MG 1 EACH TAB PO PRN (20:59)
[2017-11-09] MEDS: ALPRAZolam 0.25 MG TAB PO PRN (21:11)
[2017-11-09] MEDS: FUROSEMIDE 10 MG/ML 4 ML VIAL IV SCH (21:11)
[2017-11-09] MEDS: BRIMONIDINE TARTRATE 0.2% DROPS 5 ML BTL BOTH EYES SCH (21:25)
[2017-11-09] MEDS: TIMOLOL 0.5% OPHTH DROPS 5 ML BTL LEFT EYE SCH (21:25)
[2017-11-09] MEDS: SODIUM BICARBONATE TAB 650 MG TAB PO SCH (21:26)
[2017-11-09] MEDS: LATANOPROST 0.005% OPHTH DROPS 2.5 ML BTL BOTH EYES SCH (21:26)
[2017-11-09] MEDS: FAMOTIDINE 20 MG TAB PO SCH (21:27)
[2017-11-09] MEDS: metroNIDAZOLE 500 MG TAB PO SCH (21:27)
[2017-11-09] MEDS: cefTRIAXone IN SWFI 1,000 MG/10 ML SYRINGE IVP SCH (22:59)
[2017-11-09] MEDS: HEPARIN SODIUM,PORCINE 5,000 UNIT/ML 1 ML VIAL IV PRN (23:56)
[2017-11-10] MEDS: ALPRAZolam 0.25 MG TAB PO PRN ×3 (03:54→22:39)
[2017-11-10 04:48] LABS: Anisocytosis Slight; Basophils % (A) 0 %; Eosinophils % (A) 0 %; HCT 25.4 % (34.0-46.0); Hypochromasia Moderate; Lymphocytes # (A) 0.6 k/uL (1.0-4.8); Lymphocytes % (A) 6 %; MCH 31.2 pg (25.0-35.0); MCHC 31.4 g/dL (31.0-37.0); MCV 99.3 fL (80.0-100.0); Macrocytosis Slight; Mean Platelet Volume 8.6; Monocytes # (A) 0.6 k/uL (0-1.0); Monocytes % (A) 6 %; Neutrophils % (A) 87 %; RBC 2.56 m/uL (3.80-5.40); WBC 10.4 k/uL (3.8-10.6)
[2017-11-10 05:02] LABS: INR 1.6 (<1.2); Partial Thromboplastin Time 38.7 sec (22.0-30.0); Prothrombin Time 14.6 sec (9.0-12.0)
[2017-11-10] MEDS: HEPARIN SODIUM,PORCINE 5,000 UNIT/ML 1 ML VIAL IV PRN (05:23)
[2017-11-10] MEDS: FUROSEMIDE 10 MG/ML 4 ML VIAL IV SCH ×2 (05:23→17:42)
[2017-11-10 06:31] LABS: Platelet Count 65 k/uL (150-450)
[2017-11-10] MEDS: SYMBICORT 160-4.5 MCG INHALER INHALATION SCH ×2 (07:23→20:54)
[2017-11-10] MEDS: IPRATROPIUM-ALBUTEROL 3 ML NEB INHALATION SCH ×4 (07:23→20:54)
[2017-11-10] MEDS: FAMOTIDINE 20 MG TAB PO SCH (09:31)
[2017-11-10] MEDS: metroNIDAZOLE 500 MG TAB PO SCH ×3 (09:31→22:39)
[2017-11-10] MEDS: SODIUM BICARBONATE TAB 650 MG TAB PO SCH ×2 (09:31→19:45)
[2017-11-10] MEDS: CALCITRIOL 0.25 MCG CAP PO SCH (09:31)
--- NOTE | 2017-11-10 09:35 | ECHOF ---
Referral Reason:Heart Failure MEASUREMENTS -------- HEIGHT: 157.5 cm WEIGHT: 45.4 kg BP: 159/7 RVIDd: 2.4 cm (< 3.3) IVSd: 1.1 cm (0.6 - 1.1) LVIDd: 4.5 cm (3.9 - 5.3) LVPWd: 1.1 cm (0.6 - 1.1) IVSs: 1.3 cm LVIDs: 3.7 cm LVPWs: 1.5 cm LA Diam: 4.2 cm (2.7 - 3.8) LAESV Index (A-L): 50.09 ml/m Ao Diam: 2.7 cm (2.0 - 3.7) AV Cusp: 2.1 cm (1.5 - 2.6) MV EXCURSION: 19.436 mm (> 18.000) MV EF SLOPE: 166 mm/s (70 - 150) EPSS: 0.9 cm MV E Toney: 1.31 m/s MV DecT: 80 ms MV A Toney: 0.94 m/s MV E/A Ratio: 1.38 RAP: 15.00 mmHg RVSP: 48.95 mmHg FINDINGS -------- Resting tachycardia (HR>100bpm). This was a technically good study. The left ventricular size is normal. There is borderline concentric left ventricular hypertrophy. Overall left ventricular systolic function is severely impaired with, an EF between 25 - 30 %. The right ventricle is normal in size. LA is severely dilated >40 ml/m2 The right atrium is normal in size. There is mild aortic valve sclerosis. The mitral valve leaflets are mildly thickened. Mild mitral annular calcification present. Severe mitral regurgitation is present. Moderate tricuspid regurgitation present. There is moderate pulmonary hypertension. The right hailey tricular systolic pressure, as measured by Doppler, is 48.95mmHg. Trace/mild (physiologic) pulmonic regurgitation. The aortic root size is normal. The inferior vena cava is dilated with no significant inspiratory collapse which is consistent estima osvaldo right atrial pressure of >15 mmHg. There is no pericardial effusion. CONCLUSIONS -------- 1. Resting tachycardia (HR>100bpm). 2. This was a technically good study. 3. The left ventricular size is normal. 4. There is borderline concentric left ventricular hypertrophy. 5. Overall left ventricular systolic function is severely impaired with, an EF between 25 - 30 %. 6. The right ventricle is normal in size. 7. LA is severely dilated >40 ml/m2 8. The right atrium is normal in size. 9. There is mild aortic valve sclerosis. 10. The mitral valve leaflets are mildly thickened. 11. Mild mitral annular calcification present. 12. Severe mitral regurgitation is present. 13. Moderate tricuspid regurgitation present. 14. There is moderate pulmonary hypertension. 15. The right ventricular systolic pressure, as measured by Doppler, is 48.95mmHg. 16. Trace/mild (physiologic) pulmonic regurgitation. 17. The aortic root size is normal. 18. The inferior vena cava is dilated with no significant inspiratory collapse which is consistent es timated right atrial pressure of >15 mmHg. 19. There is no pericardial effusion. VOICE INTERCEPT TECHNICIAN: Sue Nayak RDCS
[2017-11-10] MEDS: ENOXAPARIN 40 MG/0.4 ML SYRINGE SQ SCH (09:39)
[2017-11-10] MEDS ORDERED: CHOLESTYRAMINE (WITH SUGAR) 4 GM PACKET PO PRN (10:00)
--- NOTE | 2017-11-10 11:24 | XR ---
EXAMINATION TYPE: XR chest 1V portable DATE OF EXAM: 11/10/2017 CLINICAL HISTORY: Difficulty breathing progress study. TECHNIQUE: Single AP portable upright view of the chest is obtained. COMPARISON: Chest x-ray from one day earlier and older studies. FINDINGS: There is persistent cardiomegaly with increasing bibasilar opacity felt to reflect develop ing small to moderate-sized bilateral pleural effusions and associated bibasilar atelectasis and/or i nfiltrate. Background reticulonodular opacities bilaterally remain present bilaterally. Age-indetermi windy left posterior lateral rib fractures are redemonstrated. IMPRESSION: New or enlarging small to moderate-sized bilateral pleural effusions and new bibasilar in filtrate and/or atelectasis. Background cardiomegaly and reticulonodular interstitial changes bilater ally.
[2017-11-10] MEDS: DILTIAZEM 50 MG in SODIUM CHLORIDE 0.9% 40 ML IV SCH (12:05)
[2017-11-10] MEDS ORDERED: CLOPIDOGREL 75 MG TAB PO SCH (12:30)
[2017-11-10] MEDS: VERAPAMIL 40 MG TAB PO SCH ×3 (12:34→22:39)
[2017-11-10] MEDS: BRIMONIDINE TARTRATE 0.2% DROPS 5 ML BTL BOTH EYES SCH ×2 (12:35→19:45)
[2017-11-10] MEDS: SERTRALINE 100 MG TAB PO SCH (12:35)
[2017-11-10] MEDS: TIMOLOL 0.5% OPHTH DROPS 5 ML BTL LEFT EYE SCH ×2 (12:35→19:44)
--- NOTE | 2017-11-10 13:09 | US ---
EXAMINATION TYPE: US liver DATE OF EXAM: 11/10/2017 COMPARISON: CT renal stones August 03, 2017 DATE OF EXAM: 11/10/2017 CLINICAL HISTORY: increased LFTs. increased LFTs. patient in respiratory distress and sitting almost fully upright for exam, no symptoms per patient EXAM MEASUREMENTS: Liver Length: 16.0 cm Gallbladder Wall: 0.1 cm CBD: 0.3 cm Right Kidney: 9.6 x 4.2 x 3.7 cm Pancreas: wnl Liver: wnl Gallbladder: wnl Evidence for sonographic Julian's sign: no CBD: wnl Right Kidney: scant amount of free fluid around right renal right sided pleural effusion IMPRESSION: Persistent hepatomegaly without intrahepatic mass or hepatic ductal dilatation. New small right pleural effusion correlates with chest x-ray earlier today.
--- NOTE | 2017-11-10 15:05 | P.CONS ---
History of Present Illness - Reason for Consult Consult date: 11/10/17 Multiple Myeloma Requesting physician: Brent Boo - Chief Complaint Shortness of breath - History of Present Illness Ms. Coleman is a very pleasant female pt of Dr. Larson who was initially seen in consult at [facility] 04/07/17, admitted with c/o general malaise x 4-6 weeks, decreased appetite, 8-10 lb wt. loss, decreased endurance, intermittent nausea, increased bone pain in the bilateral rib area, Cr. 2.9 (baseline around 2), Ca++ 13.4 and anemia, previously ordered labs by Nephrology outpatient showed a markedly elevated light chain at 4900 mg/dL with lambda light chains normal, SPEP negative. Treated with IV hydration and IV bisphosphonates , did have blood transfusion. 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 She was started on Rev/Velcade/Dex at the end of Apr. She has had multiple hospitalizations over the last 4 months for COPD exacerbations and bone pain. Pt completed 6 cycles. F/U labs showed progressively worsening renal function and increasing light chain. Pt was started on Kyprolis/Revlimid/Dex and has 1st 2 week cycle, which she completed 10/17. She was recentlt admitted on 10/23/17 with progressive decline , weak, eating and drinking less and less due to nausea, some vomiting, diarrhea a few times a day, she then had fever so was directed to hospital. She is uncomfortable when seen, fever on admit, feels warm now, denies oral irritation, she has congested cough, small amt of sputum, no hemoptysis, chest pain, overt ELIEZER, abd pain, distension, dysuria, hematuria, black or bloody stool, swelling or pain. She was treated with antibiotics and developed a systemic raised rash, treated supportively. Seen after admission and supportive treatment with IV hydration, antiemetics, benadryl, and topical steroids was continued. Her kyprolis was given as scheduled, last 11/02/17, along with her monthly XGEVA on 10/30/17 and continued on Revlimid. Her last creatinine was 3.56 in office which did not vary much from previous in September She now presents to [facility] via EMS for significant increased respiratory distress, apon presentation she improved on Bipap. VQ scan low probaility of Pulmonary embolism. D-Dimer elevated and started on heparin Drip in Emergency. She has known Heart Failure and emyphsema. Her liver functions are elevated, this is new. She has received steroids with her cancer therapy as usual as well as increased doses of systemic steroids for her recent systemic rash. During todays evaluation she is alert and oriented, has bipap on. Review of Systems A 14 point review of systems assessed and completed and all negative except HPI. 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 anxiety, anemia recent admission she recieved blood History of Any Multi-Drug Resistant Organisms: None Reported Past Surgical History: Back Surgery Additional Past Surgical History / Comment(s): LUMBAR FUSION 1.5 YRS AGO, BREAST IMPLANTS IN THE 70'S REMOVED MID 'S Past Anesthesia/Blood Transfusion Reactions: No Reported Reaction Smoking Status: Current some day smoker - Past Family History Father Additional Family Medical History / Comment(s): FATHER 99 YRS OLD STILL LIVING HAS PROSTATE ISSUES Mother Family Medical History: Cancer Additional Family Medical History / Comment(s): LUNG CANCER Medications and Allergies Home Medications Medication Instructions Recorded Confirmed Type Clopidogrel [Plavix] 75 mg PO AC-LUNCH 01/28/17 11/09/17 History Latanoprost Ophth [Xalatan 0.005%] 1 drops BOTH EYES HS 01/28/17 11/09/17 History Sertraline [Zoloft] 200 mg PO AC-LUNCH 01/28/17 11/09/17 History Brimonidine Tartrate [Alphagan P 1 drops BOTH EYES BID 04/05/17 11/09/17 History 0.2% Ophth Soln] Sodium Bicarbonate Tab 650 mg PO BID #60 tab 05/29/17 11/09/17 Rx Timolol 0.5% Ophth Soln [Timoptic 1 drop LEFT EYE BID 08/03/17 11/09/17 History 0.5% Ophth Soln] HYDROcodone/APAP 7.5-325MG [[place] 1 tab PO TID PRN #30 tab 08/05/17 11/09/17 Rx 7.5-325] Budesonide-Formot 160-4.5 Mcg 2 puff INHALATION RT-BID 10/23/17 11/09/17 History [Symbicort 160-4.5 Mcg Inhaler] Calcitriol 0.25 mcg PO DAILY 10/23/17 11/09/17 History Dexamethasone 20 mg PO MO 10/23/17 11/09/17 History Calcium Carbonate [Tums] 1,000 mg PO QID #90 chew 10/27/17 11/09/17 Rx Cholestyramine (with Sugar) 4 gm PO BID@1000,1800 PRN #20 10/27/17 11/09/17 Rx [Questran Packet] packet Ranitidine HCl [Zantac] 150 mg PO BID #30 tab 10/27/17 11/09/17 Rx metroNIDAZOLE [Flagyl] 500 mg PO TID #20 tab 10/27/17 11/09/17 Rx Allergies Allergy/AdvReac Type Severity Reaction Status Date / Time ciprofloxacin HCl Allergy Lip Verified 11/09/17 14:21 [From Cipro] swelling, itching codeine Allergy Unknown Verified 11/09/17 14:21 Sulfa (Sulfonamide Allergy Unknown Verified 11/09/17 14:21 Antibiotics) Physical Exam Vitals: Vital Signs Temp Pulse Pulse Resp BP BP Pulse Ox 11/10/17 12:00 97.5 F L 85 18 158/72 98 11/10/17 11:37 80 11/10/17 11:27 80 18 11/10/17 09:40 97.4 F L 104 H 28 H 161/85 96 11/10/17 07:33 103 H 11/10/17 07:30 96 11/10/17 07:23 105 H 18 11/10/17 04:00 97.5 F L 109 H 28 H 136/89 96 11/10/17 00:00 97.8 F 91 30 H 124/82 96 11/09/17 21:08 128 H 11/09/17 20:47 144 H 11/09/17 18:50 110 H 32 H 144/70 99 11/09/17 17:45 112 H 32 H 145/68 97 11/09/17 16:20 114 H 32 H 149/81 93 L 11/09/17 15:10 109 H 11/09/17 14:53 160 H 32 H 159/77 97 11/09/17 14:39 146 H Intake and Output 11/09/17 11/10/17 11/10/17 22:59 06:59 14:59 Intake Total 583.96 224.708 Output Total 250 Balance 583.96 -25.292 Intake: IV 563.96 45 Azithromycin 500 mg In 500 Sodium Chloride 0.9% 250 ml @ 125 mls/hr IVPB ONCE STA Rx#:[id number] Diltiazem 50 mg In Sodium 15 45 Chloride 0.9% 40 ml @ 5 MG/HR 5 mls/hr IV .Q10H [facility] Rx#:[id number] Heparin Sod,Pork in 0.45% 48.96 NaCl 25,000 unit In 0.45 % NaCl 1 500ml.bag @ 18 UNITS/KG/HR 16.32 mls/hr IV .Q24H [facility] Rx#: [id number] Intake, IV Titration 20 179.708 Amount Diltiazem 50 mg In Sodium 20 Chloride 0.9% 40 ml @ 5 MG/HR 5 mls/hr IV .Q10H [facility] Rx#:[id number] Heparin Sod,Pork in 0.45% 179.708 NaCl 25,000 unit In 0.45 % NaCl 1 500ml.bag @ 18 UNITS/KG/HR 16.32 mls/hr IV .Q24H [facility] Rx#: [id number] Output: Urine 250 Other: Voiding Method Bedpan Bedpan Diaper # Voids 2 Weight 45 kg 45 kg General appearance: alert, little respiratory distress Head exam:NC, NT Eye exam: PERRL, EOMI. nonicterus ENT exam: Neck Supple, Trachea Midline, Oral Thrush, dry mucus membranes Respiratory exam: mild respiratory distress, scattered expiratory wheezes, accessory muscle use noted, decreased breath sounds bibasilar, Cardiovascular Exam: tachycardia, irregular rhythm, GI/Abdominal exam: soft, normal bowel sounds, non-distended, non tender Extremities exam: no edema, Positive peripheral pulses Neurological exam: alert, oriented X3, CN II-XII intact Psychiatric exam: normal affect, normal mood Skin exam: Present: warm, dry, intact, normal color. Hyperpigmented areas from recent systemic rash, which has improved since evaluation last week. Results CBC & Chem 7: 11/10/17 04:13 11/10/17 15:06 Labs: Abnormal Lab Results - Last 24 Hours (Table) 11/09/17 11/09/17 11/09/17 Range/Units 14:16 14:16 14:16 WBC 10.9 H (3.8-10.6) k/uL RBC 2.57 L (3.80-5.40) m/uL Hgb 8.3 L (11.4-16.0) gm/dL Hct 26.2 L (34.0-46.0) % MCV 101.9 H D (80.0-100.0) fL RDW 17.9 H (11.5-15.5) % Plt Count 120 L (150-450) k/uL Neutrophils # (1.3-7.7) k/uL Lymphocytes # (1.0-4.8) k/uL PT (9.0-12.0) sec INR (<1.2) APTT (22.0-30.0) sec D-Dimer (<0.60) mg/L FEU Potassium 5.4 H (3.5-5.1) mmol/L Chloride 113 H (98-107) mmol/L Carbon Dioxide 14 L (22-30) mmol/L BUN 73 H (7-17) mg/dL Creatinine 3.46 H (0.52-1.04) mg/dL Glucose 296 H (74-99) mg/dL Calcium 8.1 L (8.4-10.2) mg/dL AST 153 H (14-36) U/L ALT 209 H (9-52) U/L Troponin I 0.057 H* (0.000-0.034) ng/mL Total Protein 5.1 L (6.3-8.2) g/dL Albumin 3.1 L (3.5-5.0) g/dL 11/09/17 11/09/17 11/09/17 Range/Units 15:10 22:57 22:57 WBC (3.8-10.6) k/uL RBC (3.80-5.40) m/uL Hgb (11.4-16.0) gm/dL Hct (34.0-46.0) % MCV (80.0-100.0) fL RDW (11.5-15.5) % Plt Count (150-450) k/uL Neutrophils # (1.3-7.7) k/uL Lymphocytes # (1.0-4.8) k/uL PT (9.0-12.0) sec INR 1.2 H (<1.2) APTT 19.9 L 44.2 H (22.0-30.0) sec D-Dimer 11.33 H (<0.60) mg/L FEU Potassium (3.5-5.1) mmol/L Chloride (98-107) mmol/L Carbon Dioxide (22-30) mmol/L BUN (7-17) mg/dL Creatinine (0.52-1.04) mg/dL Glucose (74-99) mg/dL Calcium (8.4-10.2) mg/dL AST (14-36) U/L ALT (9-52) U/L Troponin I 0.223 H* (0.000-0.034) ng/mL Total Protein (6.3-8.2) g/dL Albumin (3.5-5.0) g/dL 11/10/17 11/10/17 11/10/17 Range/Units 04:13 04:13 04:13 WBC (3.8-10.6) k/uL RBC 2.56 L (3.80-5.40) m/uL Hgb 8.0 L (11.4-16.0) gm/dL Hct 25.4 L (34.0-46.0) % MCV (80.0-100.0) fL RDW 18.0 H (11.5-15.5) % Plt Count 65 L (150-450) k/uL Neutrophils # 9.0 H (1.3-7.7) k/uL Lymphocytes # 0.6 L (1.0-4.8) k/uL PT 14.6 H (9.0-12.0) sec INR 1.6 H (<1.2) APTT 38.7 H (22.0-30.0) sec D-Dimer (<0.60) mg/L FEU Potassium (3.5-5.1) mmol/L Chloride (98-107) mmol/L Carbon Dioxide (22-30) mmol/L BUN (7-17) mg/dL Creatinine (0.52-1.04) mg/dL Glucose (74-99) mg/dL Calcium (8.4-10.2) mg/dL AST (14-36) U/L ALT (9-52) U/L Troponin I 0.242 H* (0.000-0.034) ng/mL Total Protein (6.3-8.2) g/dL Albumin (3.5-5.0) g/dL Comments: Abdominal Ultrasound, with hepatomegaly no other abnormalities except Right pleural effusion mentioned VQ scan seen from 10/25/17, ER note states completed 11/09/17 - although I do not see. Results from 10/25/17 show low probability Echocardiogram and chest xray reviewed. Assessment and Plan Plan: Assessment and Recommendations: 1. Multiple Myeloma - Not in Remission - Kyprolis, Revlimid and Dex - New reigmen started 6 weeks ago. Last treatment , cycle 2 completed on 11/02/17 - Monthly Xgeva, last received 10/30/17 - Hold Revlimid at this time secondary to thrombocytopenia - She takes weekly dexamethasone 2. Chronic Myeloma Renal Disease - Nephrology Following - Renal Function does not vary from her baseline abnormal - Continue Gentle Hydration and monitor closely 3. Acute on Chronic Respiratory Failure - Acute Respiratory Distress on Admission, improving with Bipap - Right Pleural Effusion - Pulmonary Following - Recent treatment Pneumonia - In the immunocompromised patient with recent identified infection it is also reasonable to jacobs culture - Also on Solumedrol, with steroids and thrombocytopenia a PPI will be initiated and pepcid discontinued (pepcid can sometime pose a higher risk on decreasing platlets) 4. Increased LFTs, Transiminitis - - Ultrasound of liver reviewed no acute obstruction or etiology mentioned from exam 5. Increased D-Dimer, prolonged PT, INR, Coagulopathy - Check Fibrinogen - Reviewed Echocardiogram - Reviewed recent VQ scan from 10/25/17, if not completed this admission would recommend repeat VQ scan for Pulmonary Embolism Assessment 6. Normocytic Anemia - Secondary to Chronic Kidney Disease and Myeloma - Monitor CBC, Transfuse Hemoglobin less than 7, Hemoglobin is 8 today, no intervention needed 7. Thrombocytopenia - Secondary to Treatment for Multiple Myeloma and likely component of Infection - With coagulopathy and elevated d-dimer, check fibrinogen - Monitor Closely for s/s bleeding - If platlet count drops below 50K, stop prophylaxic anticogulation - Hold Revlimid until platelets recover closer to 80-100K - Transfuse Platelets if less than 10 or if any signs of bleeding less than 50K 8. Hypocalcemia - Likely secondary to Biphosphonate but also can be sign of sepsis considered one of the oncologic destinee in cancer patients. - Check blood cultures x2 Thank you for allowing us to follow along on this patient with you. Radha Louis NP
--- NOTE | 2017-11-10 15:35 | P.CNPUL ---
History of Present Illness Consult date: 11/10/17 Reason for consult: dyspnea History of present illness: This is a 66-year-old female patient with a recent diagnosis of multiple myeloma as the patient presented with typical features of hypercalcemia, renal failure and further evaluation with blood work showed elevated light chains and the bone marrow biopsy was positive for myeloma with monoclonal plasma cells and playing 6% of the bone marrow. The patient was a she started on a combination of Revlimid and Velcade and Decadron and her labs showed progressive worsening the renal function and increase in the light chain. Subsequently she was started on Keprolis and Revlimid and Decadron. Note that she has had multiple hospitalizations over the past 4 months for pulmonary issues and infections and bone pain. The patient was recently admitted to the hospital on 10/23/2017 for progressive weakness, declining oral intake, some nausea and diarrhea and she had also fever. She had multitude of complaints at the same time. She was treated with antibiotics and she developed a systemic rash that was treated with steroids and the patient is currently on a prednisone burst taper she reports that this rash is gradually improving. Exact cause of the rash is not clear. She has undergone outpatient skin biopsy. Suspicion is that this is a either antibiotic versus drug-induced rash. She presented yesterday to the hospital because of an acute shortness of breath. Chest x-ray was consistent with pulmonary edema. ProBNP level was elevated and the patient had an acute on top of chronic renal failure in addition. She was found to be in atrial fibrillation with rapid ventricular response. The initial EKG showed A. fib/flutter with variable AV block and Q waves involving the septal wall. Patient is known to have CHF and therapeutic cardiac exam was done and showed borderline concentric left hypertrophy, ejection fraction of 25-30%, dilated LA, severe mitral regurgitation, moderate to severe pulmonary hypertension with a PA pressure of 48 mmHg. At the same time the IVC was dilated and there was no significant inspiratory collapse consistent with elevation of the right atrial pressure. She is currently on IV heparin knowing that her troponins were minimally elevated also and there was evidence of troponin leak. The patient was started on Lasix 40 mg IV push every 12 hours and she is already feeling better. She was taken off the BiPAP and she is currently on 4l by nasal cannula. Note that she has been diagnosed having COPD and she's never been on oxygen on a permanent basis and she has been using on and put her nebulizer when necessary. No previous history of DVT or pulmonary embolism. Antibiotic coverage is emphatic right now with a combination of Rocephin and Zithromax. Review of Systems Constitutional: Reports chronic pain, Reports fatigue, Reports lethargy, Reports weakness Eyes: denies blurred vision, denies bulging eye, denies decreased vision Ears: deny: decreased hearing, ear discharge, earache, tinnitus Ears, nose, mouth and throat: Denies headache, Denies sore throat Cardiovascular: Reports decreased exercise tolerance, Reports dyspnea on exertion, Reports orthopnea, Reports palpitations, Reports paroxysmal nocturnal dyspnea, Reports rapid heart beat, Reports shortness of breath Respiratory: Reports dyspnea, Reports respiratory infections, Reports wheezing Gastrointestinal: Reports loss of appetite, Reports nausea Genitourinary: Denies dysuria, Denies hematuria Musculoskeletal: Reports limitation of motion, Reports low back pain, Reports muscle weakness, Reports myalgias Musculoskeletal: absent: ankle pain, ankle stiffness, ankle swelling Integumentary: Reports rash Neurological: Reports numbness, Reports weakness Psychiatric: Denies anxiety, Denies depression Endocrine: Reports fatigue Hematologic/Lymphatic: Reports as per HPI Allergic/Immunologic: Reports as per HPI Past Medical History Past Medical History: Cancer, COPD, CVA/TIA, Hyperlipidemia, Hypertension, Renal Disease, Rheumatoid Arthritis (RA) Additional Past Medical History / Comment(s): Bone CA, multiple myeloma,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 anxiety, anemia recent admission she recieved blood History of Any Multi-Drug Resistant Organisms: None Reported Past Surgical History: Back Surgery Additional Past Surgical History / Comment(s): LUMBAR FUSION 1.5 YRS AGO, BREAST IMPLANTS IN THE 70'S REMOVED MID 'S Past Anesthesia/Blood Transfusion Reactions: No Reported Reaction Smoking Status: Current some day smoker - Past Family History Father Additional Family Medical History / Comment(s): FATHER 99 YRS OLD STILL LIVING HAS PROSTATE ISSUES Mother Family Medical History: Cancer Additional Family Medical History / Comment(s): LUNG CANCER Medications and Allergies Home Medications Medication Instructions Recorded Confirmed Type Clopidogrel [Plavix] 75 mg PO AC-LUNCH 01/28/17 11/09/17 History Latanoprost Ophth [Xalatan 0.005%] 1 drops BOTH EYES HS 01/28/17 11/09/17 History Sertraline [Zoloft] 200 mg PO AC-LUNCH 01/28/17 11/09/17 History Brimonidine Tartrate [Alphagan P 1 drops BOTH EYES BID 04/05/17 11/09/17 History 0.2% Ophth Soln] Sodium Bicarbonate Tab 650 mg PO BID #60 tab 05/29/17 11/09/17 Rx Timolol 0.5% Ophth Soln [Timoptic 1 drop LEFT EYE BID 08/03/17 11/09/17 History 0.5% Ophth Soln] HYDROcodone/APAP 7.5-325MG [[place] 1 tab PO TID PRN #30 tab 08/05/17 11/09/17 Rx 7.5-325] Budesonide-Formot 160-4.5 Mcg 2 puff INHALATION RT-BID 10/23/17 11/09/17 History [Symbicort 160-4.5 Mcg Inhaler] Calcitriol 0.25 mcg PO DAILY 10/23/17 11/09/17 History Dexamethasone 20 mg PO MO 10/23/17 11/09/17 History Calcium Carbonate [Tums] 1,000 mg PO QID #90 chew 10/27/17 11/09/17 Rx Cholestyramine (with Sugar) 4 gm PO BID@1000,1800 PRN #20 10/27/17 11/09/17 Rx [Questran Packet] packet Ranitidine HCl [Zantac] 150 mg PO BID #30 tab 10/27/17 11/09/17 Rx metroNIDAZOLE [Flagyl] 500 mg PO TID #20 tab 10/27/17 11/09/17 Rx Allergies Allergy/AdvReac Type Severity Reaction Status Date / Time ciprofloxacin HCl Allergy Lip Verified 11/09/17 14:21 [From Cipro] swelling, itching codeine Allergy Unknown Verified 11/09/17 14:21 Sulfa (Sulfonamide Allergy Unknown Verified 11/09/17 14:21 Antibiotics) Physical Exam Vitals: Vital Signs Temp Pulse Pulse Resp BP BP Pulse Ox 11/10/17 12:00 97.5 F L 85 18 158/72 98 11/10/17 11:37 80 11/10/17 11:27 80 18 11/10/17 09:40 97.4 F L 104 H 28 H 161/85 96 11/10/17 07:33 103 H 11/10/17 07:30 96 11/10/17 07:23 105 H 18 11/10/17 04:00 97.5 F L 109 H 28 H 136/89 96 11/10/17 00:00 97.8 F 91 30 H 124/82 96 11/09/17 21:08 128 H 11/09/17 20:47 144 H 11/09/17 18:50 110 H 32 H 144/70 99 11/09/17 17:45 112 H 32 H 145/68 97 11/09/17 16:20 114 H 32 H 149/81 93 L Intake and Output 11/10/17 11/10/17 11/10/17 06:59 14:59 22:59 Intake Total 224.708 Output Total 250 Balance -25.292 Intake: IV 45 Diltiazem 50 mg In Sodium 45 Chloride 0.9% 40 ml @ 5 MG/HR 5 mls/hr IV .Q10H [facility] Rx#:[id number] Intake, IV Titration 179.708 Amount Heparin Sod,Pork in 0.45% 179.708 NaCl 25,000 unit In 0.45 % NaCl 1 500ml.bag @ 18 UNITS/KG/HR 16.32 mls/hr IV .Q24H [facility] Rx#: [id number] Output: Urine 250 Other: Voiding Method Bedpan Bedpan Diaper # Voids 2 Weight 45 kg 45 kg General appearance: alert, little respiratory distress, currently off the BiPAP and the patient is on 42 by by nasal cannula. Head exam: Head exam was generally normal. There was no scleral icterus or corneal arcus. Mucous membranes were moist. Eye exam: PERRL, EOMI. nonicterus ENT exam: Neck Supple, Trachea Midline, Oral Thrush, dry mucus membranes Respiratory exam: mild respiratory distress, scattered expiratory wheezes, accessory muscle use noted, decreased breath sounds bibasilar, Cardiovascular Exam: tachycardia, irregular rhythm, GI/Abdominal exam: soft, normal bowel sounds, non-distended, non tender Extremities exam: no edema, Positive peripheral pulses Neurological exam: alert, oriented X3, CN II-XII intact Psychiatric exam: normal affect, normal mood Skin exam: Present: warm, dry, intact, normal color. Hyperpigmented areas from recent systemic rash, which has improved since evaluation last week. Results - Laboratory Findings CBC and BMP: 11/10/17 04:13 11/09/17 14:16 PT/INR, D-dimer PT 14.6 sec (9.0-12.0) H 11/10/17 04:13 INR 1.6 (<1.2) H 11/10/17 04:13 D-Dimer 11.33 mg/L FEU (<0.60) H 11/09/17 15:10 Abnormal lab findings: Abnormal Labs 11/09/17 11/09/17 11/09/17 14:16 14:16 14:16 WBC 10.9 H RBC 2.57 L Hgb 8.3 L Hct 26.2 L MCV 101.9 H D RDW 17.9 H Plt Count 120 L Neutrophils # Lymphocytes # PT INR APTT D-Dimer Potassium 5.4 H Chloride 113 H Carbon Dioxide 14 L BUN 73 H Creatinine 3.46 H Glucose 296 H Calcium 8.1 L AST 153 H ALT 209 H Troponin I 0.057 H* Total Protein 5.1 L Albumin 3.1 L 11/09/17 11/09/17 11/09/17 15:10 22:57 22:57 WBC RBC Hgb Hct MCV RDW Plt Count Neutrophils # Lymphocytes # PT INR 1.2 H APTT 19.9 L 44.2 H D-Dimer 11.33 H Potassium Chloride Carbon Dioxide BUN Creatinine Glucose Calcium AST ALT Troponin I 0.223 H* Total Protein Albumin 11/10/17 11/10/17 11/10/17 04:13 04:13 04:13 WBC RBC 2.56 L Hgb 8.0 L Hct 25.4 L MCV RDW 18.0 H Plt Count 65 L Neutrophils # 9.0 H Lymphocytes # 0.6 L PT 14.6 H INR 1.6 H APTT 38.7 H D-Dimer Potassium Chloride Carbon Dioxide BUN Creatinine Glucose Calcium AST ALT Troponin I 0.242 H* Total Protein Albumin - Diagnostic Findings Chest x-ray: image reviewed Assessment and Plan Plan: Assessment 1 acute decompensated heart failure as the patient is known to have systolic heart failure with ejection fraction of 25-30% and the patient's presentation is typical of acute heart failure and pulmonary edema in the setting of troponin leak and acute A. fib flutter with rapid ventricular response. Patient responded to diuretics and the patient is currently off BiPAP 2 acute hypoxic respiratory failure secondary to above 3 severe mitral regurgitation secondary pulmonary hypertension 4 questionable coronary artery disease and the patient has some minor troponin leak and Q waves involving the anterior leads. 5 multiple myeloma currently not in remission and the patient is currently on a combination of kYPROLIS and Revlimid and Decadron and this is a new regimen and lasts treatment which is cycle 2 was given on 11/02/2017. 6 chronic renal failure/myeloma kidney with a component of acute decompensation renal function secondary to above 7 COPD currently inactive in stable 8 abnormal LFTs 9 elevated d-dimer, nonspecific findings, pulmonary embolism is doubtful 10 previous history of CVA 11 hypertension 12 Hyperlipidemia 13 chronic bony aches and pain secondary to multiple myeloma 14 chronic anemia, cytopenia secondary to multiple myeloma Plan I do not see the need for a VQ scan as the presentation is not typical of pulmonary embolism. I do not see the need for antibiotics at this point for pulmonary coverage as the presentation is typical of CHF and pulmonary edema and the patient is responding nicely to diuretics. Management of atrial fibrillation/flutter per cardiology. Rate is under better control for now. Echocardiogram was noted. Continue diuretics. Monitor renal function. Repeat chest x-ray in a.m. The patient will need to be seen by various consultants including nephrology, cardiology, and oncology.
--- NOTE | 2017-11-10 15:37 | P.CRDCN ---
History of Present Illness Consult date: 11/10/17 Requesting physician: Christopher Serrano Reason for Consult (text): CHF Chief complaint: difficulty in breathing History of present illness: This is a pleasant 66-year-old female patient with history of COPD, hyperlipidemia, hypertension, chronic renal failure, rheumatoid arthritis, history of significant anemia with a hemoglobin as low as 5.7, and multiple myeloma currently undergoing treatment with chemotherapy. Presented to the emergency department in significant distress. Significant shortness of breath. Chest x-ray showed small left pleural effusion with healing right and left rib fractures and some acute fracture along the seventh lateral rib. Pulmonary vasculature is prominent with mild diffuse increased lung markings. EKG showed atrial flutter with rapid ventricular response. Laboratory value showed a potassium of 5.4, BUN 73, creatinine 3.46, NT proBNP of 24,600 and troponins of 0.057, 0.2-3 and 0.242. She was started on IV heparin and IV Cardizem. She is also been started on Lasix 40 mg IV push every 12 hours. She is on Plavix at home. Echocardiogram done yesterday shows an ejection fraction of 25-30% which is significantly lower from previous echocardiogram from earlier this year. Upon examination, patient is resting comfortably in bed. She feels her breathing is significantly improved. 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 anxiety, anemia recent admission she recieved blood History of Any Multi-Drug Resistant Organisms: None Reported Past Surgical History: Back Surgery Additional Past Surgical History / Comment(s): LUMBAR FUSION 1.5 YRS AGO, BREAST IMPLANTS IN THE 70'S REMOVED MID 90'S Past Anesthesia/Blood Transfusion Reactions: No Reported Reaction Smoking Status: Current some day smoker - Past Family History Father Additional Family Medical History / Comment(s): FATHER 99 YRS OLD STILL LIVING HAS PROSTATE ISSUES Mother Family Medical History: Cancer Additional Family Medical History / Comment(s): LUNG CANCER Medications and Allergies Home Medications Medication Instructions Recorded Confirmed Type Clopidogrel [Plavix] 75 mg PO AC-LUNCH 01/28/17 11/09/17 History Latanoprost Ophth [Xalatan 0.005%] 1 drops BOTH EYES HS 01/28/17 11/09/17 History Sertraline [Zoloft] 200 mg PO AC-LUNCH 01/28/17 11/09/17 History Brimonidine Tartrate [Alphagan P 1 drops BOTH EYES BID 04/05/17 11/09/17 History 0.2% Ophth Soln] Sodium Bicarbonate Tab 650 mg PO BID #60 tab 05/29/17 11/09/17 Rx Timolol 0.5% Ophth Soln [Timoptic 1 drop LEFT EYE BID 08/03/17 11/09/17 History 0.5% Ophth Soln] HYDROcodone/APAP 7.5-325MG [Hamill 1 tab PO TID PRN #30 tab 08/05/17 11/09/17 Rx 7.5-325] Budesonide-Formot 160-4.5 Mcg 2 puff INHALATION RT-BID 10/23/17 11/09/17 History [Symbicort 160-4.5 Mcg Inhaler] Calcitriol 0.25 mcg PO DAILY 10/23/17 11/09/17 History Dexamethasone 20 mg PO MO 10/23/17 11/09/17 History Calcium Carbonate [Tums] 1,000 mg PO QID #90 chew 10/27/17 11/09/17 Rx Cholestyramine (with Sugar) 4 gm PO BID@1000,1800 PRN #20 10/27/17 11/09/17 Rx [Questran Packet] packet Ranitidine HCl [Zantac] 150 mg PO BID #30 tab 10/27/17 11/09/17 Rx metroNIDAZOLE [Flagyl] 500 mg PO TID #20 tab 10/27/17 11/09/17 Rx Allergies Allergy/AdvReac Type Severity Reaction Status Date / Time ciprofloxacin HCl Allergy Lip Verified 11/09/17 14:21 [From Cipro] swelling, itching codeine Allergy Unknown Verified 11/09/17 14:21 Sulfa (Sulfonamide Allergy Unknown Verified 11/09/17 14:21 Antibiotics) Physical Exam Vitals: Vital Signs Temp Pulse Pulse Resp BP BP Pulse Ox 11/10/17 12:00 97.5 F L 85 18 158/72 98 11/10/17 11:37 80 11/10/17 11:27 80 18 11/10/17 09:40 97.4 F L 104 H 28 H 161/85 96 11/10/17 07:33 103 H 11/10/17 07:30 96 11/10/17 07:23 105 H 18 11/10/17 04:00 97.5 F L 109 H 28 H 136/89 96 11/10/17 00:00 97.8 F 91 30 H 124/82 96 11/09/17 21:08 128 H 11/09/17 20:47 144 H 11/09/17 18:50 110 H 32 H 144/70 99 11/09/17 17:45 112 H 32 H 145/68 97 11/09/17 16:20 114 H 32 H 149/81 93 L Intake and Output 11/10/17 11/10/17 11/10/17 06:59 14:59 22:59 Intake Total 224.708 Output Total 250 Balance -25.292 Intake: IV 45 Diltiazem 50 mg In Sodium 45 Chloride 0.9% 40 ml @ 5 MG/HR 5 mls/hr IV .Q10H OLIVE Rx#:[id number] Intake, IV Titration 179.708 Amount Heparin Sod,Pork in 0.45% 179.708 NaCl 25,000 unit In 0.45 % NaCl 1 500ml.bag @ 18 UNITS/KG/HR 16.32 mls/hr IV .Q24H OLIVE Rx#: [id number] Output: Urine 250 Other: Voiding Method Bedpan Bedpan Diaper # Voids 2 Weight 45 kg 45 kg PHYSICAL EXAMINATION: HEENT: [Head is atraumatic, normocephalic. Pupils equal, round. Neck is supple. There is elevated jugular venous pressure.] HEART EXAMINATION: [Heart sounds irregularly irregular, S1 and S2 with a systolic murmur.] CHEST EXAMINATION:[ Lungs reveal coarse expiratory wheezing and scattered rhonchi throughout. No chest wall tenderness is noted on palpation or with deep breathing.] ABDOMEN: [ Soft, nontender. Bowel sounds are heard. No organomegaly noted]. EXTREMITIES:[ 2+ peripheral pulses with no evidence of peripheral edema and no calf tenderness noted]. NEUROLOGIC [patient is awake, alert and oriented x3.] . Results 11/10/17 04:13 11/09/17 14:16 Cardiac Enzymes 11/09/17 11/10/17 Range/Units 22:57 04:13 Troponin I 0.223 H* 0.242 H* (0.000-0.034) ng/mL Coagulation 11/09/17 11/09/17 11/10/17 Range/Units 15:10 22:57 04:13 PT 11.8 14.6 H (9.0-12.0) sec APTT 19.9 L 44.2 H 38.7 H (22.0-30.0) sec CBC 11/10/17 Range/Units 04:13 WBC 10.4 (3.8-10.6) k/uL RBC 2.56 L (3.80-5.40) m/uL Hgb 8.0 L (11.4-16.0) gm/dL Hct 25.4 L (34.0-46.0) % Plt Count 65 L (150-450) k/uL Current Medications Generic Name Dose Route Start Last Admin Trade Name Freq PRN Reason Stop Dose Admin Hydrocodone Bitart/Acetaminophen 1 each 11/09/17 20:59 Hamill 7.5-325 PO TID PRN Pain Albuterol/Ipratropium 3 ml 11/09/17 20:00 11/10/17 11:27 Duoneb 0.5 Mg-3 Mg/3 Ml Soln INHALATION 3 ml RT-QID OLIVE Administration Alprazolam 0.25 mg 11/09/17 20:56 11/10/17 03:54 Xanax PO 0.25 mg QID PRN Administration Anxiety Brimonidine Tartrate 1 drops 11/09/17 21:00 11/10/17 12:35 Alphagan P 0.2% Ophth Soln BOTH EYES 1 drops BID OLIVE Administration Budesonide/Formoterol Fumarate 2 puff 11/10/17 08:00 11/10/17 07:23 Symbicort 160-4.5 Mcg Inhaler INHALATION 2 puff RT-BID OLIVE Administration Calcitriol 0.25 mcg 11/10/17 09:00 11/10/17 09:31 Rocaltrol PO 0.25 mcg DAILY OLIVE Administration Ceftriaxone Sodium 1,000 mg 11/10/17 00:00 11/09/17 22:59 Rocephin IVP 1,000 mg Q24H OLIVE Administration Cholestyramine Resin 4 gm 11/10/17 10:00 Questran PO BID@1000,1800 PRN Diarrhea Clopidogrel Bisulfate 75 mg 11/10/17 12:30 11/10/17 12:34 Plavix PO 75 mg AC-LUNCH OLIEV Administration Enoxaparin Sodium 40 mg 11/10/17 09:00 11/10/17 09:39 Lovenox SQ Not Given DAILY OLIVE Famotidine 20 mg 11/11/17 09:00 Pepcid PO DAILY OLIVE Furosemide 40 mg 11/09/17 18:00 11/10/17 05:23 Lasix IV 40 mg Q12H OLIVE Administration Azithromycin 500 mg/ Sodium 250 mls @ 125 mls/hr 11/10/17 18:00 Chloride IVPB Q24H OLIVE Latanoprost 1 drops 11/09/17 21:00 11/09/17 21:26 Xalatan 0.005% BOTH EYES 1 drops HS OLIVE Administration Metronidazole 500 mg 11/09/17 22:00 11/10/17 09:31 Flagyl PO 500 mg TID OLIVE Administration Miscellaneous Information 1 each 11/09/17 16:26 Pneumonia Protocol Utilized PO ONCE PRN Per Protocol Sertraline HCl 200 mg 11/10/17 12:30 11/10/17 12:35 Zoloft PO 200 mg AC-LUNCH OLIVE Administration Sodium Bicarbonate 650 mg 11/09/17 21:00 11/10/17 09:31 Sodium Bicarbonate Tab PO 650 mg BID OLIVE Administration Timolol Maleate 1 drops 11/09/17 21:00 11/10/17 12:35 Timoptic LEFT EYE 1 drops BID OLIVE Administration Verapamil HCl 40 mg 11/10/17 11:15 11/10/17 12:34 Isoptin PO 40 mg TID OLIVE Administration Intake and Output 11/10/17 11/10/17 11/10/17 06:59 14:59 22:59 Intake Total 224.708 Output Total 250 Balance -25.292 Intake: IV 45 Diltiazem 50 mg In Sodium 45 Chloride 0.9% 40 ml @ 5 MG/HR 5 mls/hr IV .Q10H OLIVE Rx#:[id number] Intake, IV Titration 179.708 Amount Heparin Sod,Pork in 0.45% 179.708 NaCl 25,000 unit In 0.45 % NaCl 1 500ml.bag @ 18 UNITS/KG/HR 16.32 mls/hr IV .Q24H OLIVE Rx#: [id number] Output: Urine 250 Other: Voiding Method Bedpan Bedpan Diaper # Voids 2 Weight 45 kg 45 kg Patient Weight 11/11/17 06:59 Weight 45 kg 11/10/17 04:13 11/09/17 14:16 Assessment and Plan Assessment: #1 paroxysmal atrial fibrillation with rapid ventricular response. #2 chronic renal failure #3 anemia #4 multiple myeloma #5 acute systolic congestive heart failure, ejection fraction 25-30%, previously 55-60% earlier this year. #6 COPD #7 abnormal troponins, cannot entirely exclude non-ST elevation [place] Plan: From cardiology's perspective, we'll start the patient on verapamil 40 mg by mouth 3 times a day. Discontinue IV Cardizem. Discontinue IV heparin and Plavix. Patient is not a candidate for anticoagulation due to history of significant anemia. At this time we recommend conservative medical management. We will continue to follow the patient provide further recommendations accordingly. QUALIFICATION ENGINEER note has been reviewed, I agree with a documented findings and plan of care. Patient was seen and examined.
[2017-11-10 15:48] LABS: Calcium 6.8 mg/dL (8.4-10.2); Potassium 4.7 mmol/L (3.5-5.1)
--- NOTE | 2017-11-10 16:01 | CONS ---
CONSULTATION REASON FOR CONSULT: Renal failure. HISTORY OF PRESENT ILLNESS: The patient is a 66-year-old female who was admitted to the hospital with sudden onset shortness of breath. The patient stated that she slept and when she woke up she was quite short of breath. She had been on steroids as outpatient. The patient denied any fever, chills. No nausea, vomiting. No abdominal pain or diarrhea. She denies any significant urinary symptoms. Serum creatinine was 3.46 on admission. Previous creatinine about a week ago was 3.3, and in July, it was 2.8 mg/dL. The patient had an echocardiogram which showed ejection fraction 25-30 percent with severely dilated left atrium. Moderate pulmonary hypertension was noted. The patient has not been hypotensive. She has not had a fever. Chest x-ray showed cardiomegaly with small left pleural effusion. Currently, patient is maintained on IV Lasix at 40 mg q.12 hours. Her heart rate was 155 on initial admission. The patient had been on Cardizem drip for a short period of time, which is now discontinued. PAST MEDICAL HISTORY: Chronic kidney disease NKF stage IV, COPD, CKD mineral bone disorder, metabolic acidosis, history of CVA/TIA, hyperlipidemia, history of multiple myeloma, previous history of cerebrovascular accident. PAST SURGICAL HISTORY: Back surgery, lumbar fusion, breast implants. SOCIAL HISTORY: Patient is a former smoker. No history of drug abuse or alcohol abuse. REVIEW OF SYSTEMS: As per HPI. Other systems negative. MEDICATIONS: Medications at home included Zoloft, sodium bicarb, Zantac, Plavix, Tums, calcitriol, inhalers. EXAMINATION: Patient is currently comfortable, awake. She is not in any acute distress. She is short of breath. Blood pressure is 158/72, heart rate 109 per minute. Patient is afebrile. Examination of the heart: S1, S2. Examination of the lungs: Bilateral breath sounds are heard. Abdomen is soft, nontender. Exam of lower extremities shows no significant edema. CHAR FILTER TANK TENDER exam is grossly intact. Patient moving all 4 extremities. LABS: Sodium 143, potassium 5.4, chloride 113, CO2 is 14, BUN 73, serum creatinine 3.46. Troponin is 0.242. Hemoglobin 8.0 g/dL. INR was 1.6. ASSESSMENT: 1. Chronic kidney disease and NKF stage IV with renal function not far from baseline. The etiology is multiple myeloma. 2. Acute onset of dyspnea, most likely secondary to atrial fibrillation with rapid ventricular rate. Heart rate is much better controlled. The patient remains on IV heparin. Chest x-ray otherwise did not reveal any new infiltrates. However, there was pleural effusion noted. I will continue with the IV Lasix for now. 3. Hypertension. Continue with the Verapamil, which will also help with heart rate controlled. 4. Metabolic acidosis secondary to renal failure and multiple myeloma, maintained on sodium bicarb. PLAN: Continue with the current dose of Lasix. Repeat labs today as well as in a.m. Continue to avoid nephrotoxic agents. Thank you for this consultation. We will continue to follow the patient with you during her hospitalization. MMODL / IJN: [id number] /
--- NOTE | 2017-11-10 17:31 | HP ---
HISTORY AND PHYSICAL DATE OF ADMISSION: 11/09/2017 DATE OF SERVICE: 11/09/2017 PRESENTING COMPLAINT: Short of breath. HISTORY OF PRESENTING COMPLAINT: This is a very pleasant 66-year-old patient who was diagnosed with multiple myeloma and multiple complications thereof. The patient was recently started on combination of Revlimid and Velcade and Decadron, and renal function continued to worsen and increasing of light chain piece. The patient subsequently was started on Kyprolis and Revlimid and Decadron. The patient was recently in the hospital for poor oral intake, some diarrhea, some nausea, some fever and multiple symptoms. The patient also with history of antibiotics and also developed generalized rash that was treated with steroids. Exact cause was not determined. Now patient presents with 1-day history of increasing shortness of breath, some edema and also patient has underlying renal failure. Also patient was found to have associated atrial fibrillation with rapid ventricular rate and admitted for the same. The patient's EF was found to be 25%-30%. The patient initially put on IV heparin, IV Lasix and was put on BiPAP. The patient empirically was started on antibiotics. The patient is rather short of breath at rest, barely able to speak in full sentences, rather . The patient's other chronic stable conditions include hyperlipidemia, hypertension, rheumatoid arthritis, glaucoma. REVIEW OF SYSTEMS: CONSTITUTIONAL: Weak, tired. HEENT: None. RESPIRATORY: As above. CARDIOVASCULAR: As above. Some edema. GASTROINTESTINAL: None. GENITOURINARY: None. MUSCULOSKELETAL: Aches and pains in different joints. DERMATOLOGICAL: Slight rash. PSYCHIATRY: Very anxious. NEUROLOGICAL: None. PAST MEDICAL HISTORY: 1. COPD. 2. Chronic kidney disease stage 4, probably from multiple myeloma. 3. Hypertension. 4. Hyperlipidemia. 5. [place] light chain myeloma involving the bones. 6. Depression. 7. Chronic hypoxic respiratory failure. 8. Rheumatoid arthritis. PAST SURGICAL HISTORY: Back surgery, lumbar fusion a year and a half ago, breast implants in the 1970s, removed in the . SOCIAL HISTORY: The patient is smoking since the age of 19, that is close to 50 years, about a pack a day, stopped in 2014. Alcohol rarely. The patient is . FAMILY HISTORY: Prostate cancer. HOME MEDICATIONS: 1. Flagyl 500 mg p.o. t.i.d. 2. Timoptic 0.5% 1 drop to left eye b.i.d. 3. Sodium bicarb 60 mg b.i.d. 4. Zoloft 200 mg before lunch. 5. Zantac 150 mg b.i.d. 6. Xalatan 0.005% 1 drop to both eyes q.h.s. 7. Mcdaniel 7.5 t.i.d. p.r.n. 8. Dexamethasone 20 mg p.o. on Monday. 9. Plavix 75 mg p.o. with lunch. 10.Questran 4 g p.o. b.i.d. 11.Tums 1000 mg p.o. q.i.d. 12.Calcitriol 0.25 mcg p.o. daily. 13.Symbicort 160/4.5, 2 puffs b.i.d. 14.Alphagan 0.2% 1 drop to both eyes b.i.d. ALLERGIES: CIPRO, CODEINE, SULFUR. EXAMINATION: Temperature 97.5, pulse 85, respirations 13, blood pressure 150/72, pulse ox 98% on 4L. GENERAL APPEARANCE: Very thin built, sitting up BMI 18.1. Short of breath at rest with BiPAP in place. EYES: PERRLA. Conjunctivae pale. HEENT: External nose and ears normal. Oral cavity dry. BiPAP in place. NECK: JVD unable to assess. Mass not palpable. RESPIRATORY: Effort increased. The patient's accessory muscles are working. Patient not able to speak in full sentences. LUNGS: Diminished breath sounds. Prolonged expiration. Some crackles CARDIOVASCULAR: Heart sounds irregular. Edema present. ABDOMEN: Soft, nontender. Liver and spleen not palpable. LYMPHATIC: No lymph node palpable in neck or axillae. PSYCHIATRY: Alert and oriented x3. Mood and affect anxious-appearing. NEUROLOGICAL: Pupils equal. Cranial nerves grossly intact. Power and sensation grossly intact. INVESTIGATIONS: White count 10.6, hemoglobin 8.3. Potassium 5.4, repeat 4.7, BUN 33, creatinine 3.46. Troponin 0.05, 0.02. ProBNP 24,600. Chest x-ray film interpreted by me shows cardiomegaly, small pleural effusion, vascular prominence. 2D echo, EF of 25%-30%, severe mitral regurgitation, moderate tricuspid regurgitation, moderate pulmonary hypertension. EKG: Atrial flutter with a rapid ventricular rate up to 150s. ASSESSMENT: 1. Acute congestive heart failure exacerbation from systolic dysfunction, ejection fraction 25%-30%. 2. Atrial flutter/fibrillation with rapid ventricular rate, uncontrolled on presentation. 3. Acute hypoxic respiratory failure from congestive heart failure and chronic obstructive pulmonary disease, currently on BiPAP. 4. Moderate tricuspid regurgitation. 5. Severe mitral regurgitation, nonrheumatic. 6. Secondary pulmonary hypertension, combination of congestive heart failure and chronic obstructive pulmonary disease. 7. Acute chronic obstructive pulmonary disease exacerbation in an ex-smoker. 8. Multiple myeloma, currently on combination of Kyprolis, Revlimid and Decadron. 9. 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 10.Essential hypertension. 11.Hyperlipidemia. 12.Chronic anemia, normocytic, secondary to chronic kidney disease. 13.Medical debility. 14.Thrombocytopenia, probably secondary to chemotherapy. 15.Hyperkalemia secondary to renal failure. 16.Troponin leak, not acute coronary syndrome, secondary to congestive heart failure. 17.Hypoalbuminemia from moderate protein-calorie malnutrition from decreased oral intake. The patient has wasting of muscles on bony prominences. PLAN: The patient is on DuoNeb, IV azithromycin, calcitriol, IV ceftriaxone, Questran, Lovenox, IV Lasix p.o. Flagyl, sodium bicarbonate, verapamil. Consultation is done to Cardiology, Pulmonary and Oncology. Prognosis is guarded. MMODL / IJN: [id number] /
[2017-11-10] MEDS ORDERED: AZITHROMYCIN 500 MG in SODIUM CHLORIDE 0.9% 250 ML IVPB SCH (18:00)
[2017-11-10] MEDS: PANTOPRAZOLE 40 MG/10 ML VIAL IVP SCH (19:44)
[2017-11-10] MEDS: LATANOPROST 0.005% OPHTH DROPS 2.5 ML BTL BOTH EYES SCH (19:45)
[2017-11-10] MEDS: cefTRIAXone IN SWFI 1,000 MG/10 ML SYRINGE IVP SCH (22:40)
[2017-11-11] MEDS: FUROSEMIDE 10 MG/ML 4 ML VIAL IV SCH ×2 (05:29→16:17)
[2017-11-11 06:48] LABS: Anisocytosis Slight; Basophils % (A) 0 %; Eosinophils # (A) 0.1 k/uL (0-0.7); Eosinophils % (A) 1 %; HCT 24.3 % (34.0-46.0); HGB 7.7 gm/dL (11.4-16.0); Hypochromasia Slight; Lymphocytes # (A) 0.5 k/uL (1.0-4.8); Lymphocytes % (A) 8 %; MCH 31.2 pg (25.0-35.0); MCHC 31.8 g/dL (31.0-37.0); Macrocytosis Slight; Mean Platelet Volume 8.9; Monocytes # (A) 0.4 k/uL (0-1.0); Monocytes % (A) 6 %; Neutrophils # (A) 5.5 k/uL (1.3-7.7); Neutrophils % (A) 84 %; RBC 2.48 m/uL (3.80-5.40); RDW 18.7 % (11.5-15.5); WBC 6.5 k/uL (3.8-10.6)
[2017-11-11 06:55] LABS: Platelet Count 39 k/uL (150-450)
[2017-11-11 07:00] LABS: INR 1.4 (<1.2); Prothrombin Time 13.1 sec (9.0-12.0)
[2017-11-11] MEDS: SYMBICORT 160-4.5 MCG INHALER INHALATION SCH ×2 (08:03→20:44)
[2017-11-11] MEDS: IPRATROPIUM-ALBUTEROL 3 ML NEB INHALATION SCH ×4 (08:04→20:46)
[2017-11-11] MEDS: TIMOLOL 0.5% OPHTH DROPS 5 ML BTL LEFT EYE SCH ×2 (08:23→20:34)
[2017-11-11] MEDS: BRIMONIDINE TARTRATE 0.2% DROPS 5 ML BTL BOTH EYES SCH ×2 (08:23→20:35)
[2017-11-11] MEDS: PANTOPRAZOLE 40 MG/10 ML VIAL IVP SCH (08:24)
[2017-11-11] MEDS: VERAPAMIL 40 MG TAB PO SCH ×3 (08:25→22:24)
[2017-11-11] MEDS: CALCITRIOL 0.25 MCG CAP PO SCH (08:25)
[2017-11-11] MEDS: metroNIDAZOLE 500 MG TAB PO SCH ×3 (08:25→20:37)
[2017-11-11] MEDS: SODIUM BICARBONATE TAB 650 MG TAB PO SCH ×2 (08:25→20:35)
[2017-11-11] MEDS: ENOXAPARIN 40 MG/0.4 ML SYRINGE SQ SCH (08:26)
[2017-11-11] MEDS: ALPRAZolam 0.25 MG TAB PO PRN ×2 (08:29→19:05)
[2017-11-11] MEDS ORDERED: FAMOTIDINE 20 MG TAB PO SCH (09:00)
[2017-11-11] MEDS ORDERED: DARBEPOETIN ALFA 40 MCG/0.4 ML SYRINGE SQ SCH (10:00)
[2017-11-11] MEDS: SERTRALINE 100 MG TAB PO SCH (11:29)
--- NOTE | 2017-11-11 12:51 | P.PN ---
Subjective Progress Note Date: 11/11/17 This is a pleasant 66-year-old female patient with history of COPD, hyperlipidemia, hypertension, chronic renal failure, rheumatoid arthritis, history of significant anemia with a hemoglobin as low as 5.7, and multiple myeloma currently undergoing treatment with chemotherapy. Presented to the emergency department in significant distress. Significant shortness of breath. Chest x-ray showed small left pleural effusion with healing right and left rib fractures and some acute fracture along the seventh lateral rib. Pulmonary vasculature is prominent with mild diffuse increased lung markings. EKG showed atrial flutter with rapid ventricular response. Laboratory value showed a potassium of 5.4, BUN 73, creatinine 3.46, NT proBNP of 24,600 and troponins of 0.057, 0.2-3 and 0.242. She is also been started on Lasix 40 mg IV push every 12 hours. Echocardiogram done yesterday shows an ejection fraction of 25-30% which is significantly lower from previous echocardiogram from earlier this year. IV heparin, IV Cardizem and Plavix were discontinued yesterday. She is maintaining sinus rhythm at this time. Objective - Vital Signs Vital signs: Vital Signs Temp 97.0 F L 11/11/17 11:47 Pulse 77 11/11/17 11:53 Resp 17 11/11/17 11:53 BP 129/74 11/11/17 11:47 Pulse Ox 98 11/11/17 11:47 Intake & Output 11/10/17 11/11/17 11/11/17 18:59 06:59 18:59 Intake Total 270 126 Balance 270 126 Weight 45 kg 45.5 kg Intake: IV 30 10 0.9 30 Invasive Line 4 10 Oral 240 116 Other: Voiding Method Bedpan Bedpan Bedpan Diaper Diaper Diaper # Voids 2 0 - Exam PHYSICAL EXAMINATION: HEENT: [Head is atraumatic, normocephalic. Pupils equal, round. Neck is supple. There is elevated jugular venous pressure.] HEART EXAMINATION: [Heart sounds irregularly irregular, S1 and S2 with a systolic murmur.] CHEST EXAMINATION:[ Lungs reveal coarse expiratory wheezing and scattered rhonchi throughout. No chest wall tenderness is noted on palpation or with deep breathing.] ABDOMEN: [ Soft, nontender. Bowel sounds are heard. No organomegaly noted]. EXTREMITIES:[ 2+ peripheral pulses with no evidence of peripheral edema and no calf tenderness noted]. NEUROLOGIC [patient is awake, alert and oriented x3.] - Labs CBC & Chem 7: 11/11/17 06:35 11/10/17 15:06 Labs: Abnormal Lab Results - Last 24 Hours (Table) 11/10/17 11/11/17 11/11/17 Range/Units 15:06 06:35 06:35 RBC 2.48 L (3.80-5.40) m/uL Hgb 7.7 L (11.4-16.0) gm/dL Hct 24.3 L (34.0-46.0) % RDW 18.7 H (11.5-15.5) % Plt Count 39 L (150-450) k/uL Lymphocytes # 0.5 L (1.0-4.8) k/uL PT 13.1 H (9.0-12.0) sec INR 1.4 H (<1.2) Chloride 113 H (98-107) mmol/L Carbon Dioxide 19 L (22-30) mmol/L BUN 85 H (7-17) mg/dL Creatinine 3.31 H (0.52-1.04) mg/dL Glucose 112 H (74-99) mg/dL Calcium 6.8 L (8.4-10.2) mg/dL Microbiology - Last 24 Hours (Table) 11/10/17 14:40 Gram Stain - Preliminary Sputum Sputum Culture - Preliminary 11/09/17 14:16 Blood Culture - Preliminary Blood No Growth after 24 hours Assessment and Plan Assessment: #1 paroxysmal atrial fibrillation with rapid ventricular response. #2 chronic renal failure #3 anemia #4 multiple myeloma #5 acute systolic congestive heart failure, ejection fraction 25-30%, previously 55-60% earlier this year. #6 COPD #7 abnormal troponins, cannot entirely exclude non-ST elevation [place] Plan: From cardiology's perspective, medications were reviewed, will continue the same. Again, no anticoagulation at this time due to underlying anemia and comorbid conditions. We will follow the patient on an as-needed basis. Please do not hesitate to contact us with questions. TECHNOLOGY DIRECTOR note has been reviewed, I agree with a documented findings and plan of care. Patient was seen and examined.
--- NOTE | 2017-11-11 13:08 | P.PN ---
Subjective Progress Note Date: 11/11/17 This is a 66-year-old female patient with a recent diagnosis of multiple myeloma as the patient presented with typical features of hypercalcemia, renal failure and further evaluation with blood work showed elevated light chains and the bone marrow biopsy was positive for myeloma with monoclonal plasma cells and playing 6% of the bone marrow. The patient was a she started on a combination of Revlimid and Velcade and Decadron and her labs showed progressive worsening the renal function and increase in the light chain. Subsequently she was started on Keprolis and Revlimid and Decadron. Note that she has had multiple hospitalizations over the past 4 months for pulmonary issues and infections and bone pain. The patient was recently admitted to the hospital on 10/23/2017 for progressive weakness, declining oral intake, some nausea and diarrhea and she had also fever. She had multitude of complaints at the same time. She was treated with antibiotics and she developed a systemic rash that was treated with steroids and the patient is currently on a prednisone burst taper she reports that this rash is gradually improving. Exact cause of the rash is not clear. She has undergone outpatient skin biopsy. Suspicion is that this is a either antibiotic versus drug-induced rash. She presented yesterday to the hospital because of an acute shortness of breath. Chest x-ray was consistent with pulmonary edema. ProBNP level was elevated and the patient had an acute on top of chronic renal failure in addition. She was found to be in atrial fibrillation with rapid ventricular response. The initial EKG showed A. fib/flutter with variable AV block and Q waves involving the septal wall. Patient is known to have CHF and therapeutic cardiac exam was done and showed borderline concentric left hypertrophy, ejection fraction of 25-30%, dilated LA, severe mitral regurgitation, moderate to severe pulmonary hypertension with a PA pressure of 48 mmHg. At the same time the IVC was dilated and there was no significant inspiratory collapse consistent with elevation of the right atrial pressure. She is currently on IV heparin knowing that her troponins were minimally elevated also and there was evidence of troponin leak. The patient was started on Lasix 40 mg IV push every 12 hours and she is already feeling better. She was taken off the BiPAP and she is currently on 4l by nasal cannula. Note that she has been diagnosed having COPD and she's never been on oxygen on a permanent basis and she has been using on and put her nebulizer when necessary. No previous history of DVT or pulmonary embolism. Antibiotic coverage is emphatic right now with a combination of Rocephin and Zithromax. On 11/11/2017 the patient is much improved and she is less short of breath. She wore the BiPAP overnight and she is very much improved on today's evaluation. No chest pain. No altered mentation. No cough or sputum production. Cardiology evaluated this patient and the patient will be treated conservatively with medicine. The patient has troponin leak probably a component of non-ST segment elevation myocardial infarction. Nevertheless she is on a candidate for any further intervention other than medical therapy. Renal function stable with a creatinine of 3.3 and follow-up levels are still pending for now. Hemoglobin is down to 7.7. The patient is on Lasix 40 mg IV push every 12 hours. Objective - Vital Signs Vital signs: Vital Signs Temp 97.0 F L 11/11/17 11:47 Pulse 77 11/11/17 11:53 Resp 17 11/11/17 11:53 BP 129/74 11/11/17 11:47 Pulse Ox 98 11/11/17 11:47 Intake & Output 11/10/17 11/11/17 11/11/17 18:59 06:59 18:59 Intake Total 270 126 Balance 270 126 Weight 45 kg 45.5 kg Intake: IV 30 10 0.9 30 Invasive Line 4 10 Oral 240 116 Other: Voiding Method Bedpan Bedpan Bedpan Diaper Diaper Diaper # Voids 2 0 - Exam General appearance: alert, little respiratory distress, currently off the BiPAP and the patient is on [address] by nasal cannula. Head exam: Head exam was generally normal. There was no scleral icterus or corneal arcus. Mucous membranes were moist. Eye exam: PERRL, EOMI. nonicterus ENT exam: Neck Supple, Trachea Midline, Oral Thrush, dry mucus membranes Respiratory exam: mild respiratory distress, scattered expiratory wheezes, accessory muscle use noted, decreased breath sounds bibasilar, Cardiovascular Exam: tachycardia, irregular rhythm, GI/Abdominal exam: soft, normal bowel sounds, non-distended, non tender Extremities exam: no edema, Positive peripheral pulses Neurological exam: alert, oriented X3, CN II-XII intact Psychiatric exam: normal affect, normal mood Skin exam: Present: warm, dry, intact, normal color. Hyperpigmented areas from recent systemic rash, which has improved since evaluation last week - Labs CBC & Chem 7: 11/11/17 06:35 11/10/17 15:06 Labs: Abnormal Lab Results - Last 24 Hours (Table) 11/10/17 11/11/17 11/11/17 Range/Units 15:06 06:35 06:35 RBC 2.48 L (3.80-5.40) m/uL Hgb 7.7 L (11.4-16.0) gm/dL Hct 24.3 L (34.0-46.0) % RDW 18.7 H (11.5-15.5) % Plt Count 39 L (150-450) k/uL Lymphocytes # 0.5 L (1.0-4.8) k/uL PT 13.1 H (9.0-12.0) sec INR 1.4 H (<1.2) Chloride 113 H (98-107) mmol/L Carbon Dioxide 19 L (22-30) mmol/L BUN 85 H (7-17) mg/dL Creatinine 3.31 H (0.52-1.04) mg/dL Glucose 112 H (74-99) mg/dL Calcium 6.8 L (8.4-10.2) mg/dL Microbiology - Last 24 Hours (Table) 11/10/17 14:40 Gram Stain - Preliminary Sputum Sputum Culture - Preliminary 11/09/17 14:16 Blood Culture - Preliminary Blood No Growth after 24 hours Assessment and Plan Plan: Assessment 1 acute decompensated heart failure as the patient is known to have systolic heart failure with ejection fraction of 25-30% and the patient's presentation is typical of acute heart failure and pulmonary edema in the setting of troponin leak and acute A. fib flutter with rapid ventricular response. Patient responded to diuretics and the patient is currently off BiPAP 2 acute hypoxic respiratory failure secondary to above 3 severe mitral regurgitation secondary pulmonary hypertension 4 questionable coronary artery disease and the patient has some minor troponin leak and Q waves involving the anterior leads. 5 multiple myeloma currently not in remission and the patient is currently on a combination of kYPROLIS and Revlimid and Decadron and this is a new regimen and lasts treatment which is cycle 2 was given on 11/02/2017. 6 chronic renal failure/myeloma kidney with a component of acute decompensation renal function secondary to above 7 COPD currently inactive in stable 8 abnormal LFTs 9 elevated d-dimer, nonspecific findings, pulmonary embolism is doubtful 10 previous history of CVA 11 hypertension 12 Hyperlipidemia 13 chronic bony aches and pain secondary to multiple myeloma 14 chronic anemia, cytopenia secondary to multiple myeloma Plan Patient is improved significantly over the past 24 hours. Continue IV Lasix for another 24 hours. Stop Rocephin and Zithromax. Repeat chest x-ray in the morning. BiPAP on and off if still needed. Awaiting follow-up labs from today with special attention to the renal function and creatinine. We'll continue to follow.
[2017-11-11] MEDS: LATANOPROST 0.005% OPHTH DROPS 2.5 ML BTL BOTH EYES SCH (20:35)
--- NOTE | 2017-11-11 21:29 | PN ---
PROGRESS NOTE Patient is seen for followup for renal failure, chronic kidney disease and acute kidney injury. Renal function is fairly stable. The patient was admitted to the hospital with acute shortness of breath. She was also found to be in atrial fibrillation with RVR. She had evidence of volume overload and is currently being diuresed. She states she is feeling much better. PHYSICAL EXAMINATION: On examination today, blood pressure is 129/74, heart rate 77 per minute, patient is afebrile. Examination of the heart: S1, S2. Examination of the lungs: Bilateral breath sounds are heard. Decreased breath sounds at bases with basal crackles heard. Abdomen is soft, nontender. Examination lower extremity shows no significant edema. CONTINUITY PERSON exam is grossly intact. LABS: Sodium 143, potassium 4.7, chloride 198, CO2 is 19, BUN 85, serum creatinine 3.3, hemoglobin 7.7 g/dL. ASSESSMENT: 1. Chronic kidney disease secondary to multiple myeloma. Renal function not far from baseline. 2. Acute kidney injury secondary to atrial fibrillation with RVR and CHF exacerbation, currently being diuresed. We will continue with the current dose of Lasix. 3. CKD mineral bone disorder. Continue with the Rocaltrol. 4. Atrial fibrillation with RVR, currently with improved ventricular response. 5. History of rash status post steroids, most likely allergic reaction. 6. Underlying multiple myeloma, being followed by Oncology, currently under chemotherapy. 7. Cardiomyopathy with ejection fraction 25-30 percent. PLAN: Continue with Lasix. Repeat labs in a.m.. MMODL / IJN: [id number] /
--- NOTE | 2017-11-11 23:05 | HP ---
HISTORY AND PHYSICAL CORRECTION: My H and P from yesterday the correct date of service should read 11/10/17. MMMELISSAL / IJN: [id number] /
--- NOTE | 2017-11-11 23:26 | PN ---
PROGRESS NOTE DATE OF SERVICE: 11/11/17. PRESENTING ILLNESS: Short of breath. INTERVAL HISTORY: This is a patient with known congestive heart failure, atrial flutter fibrillation, presented with uncontrolled acute hypoxic respiratory failure and acute COPD exacerbation. The patient is on a BiPAP. Today patient is doing better, lying back off the BiPAP. Did eat a little bit. More restful, less anxious. The patient's sister at the bedside. Slight cough. The patient's antibiotics were discontinued and pneumonia is not felt to be present. REVIEW OF SYSTEMS: None for constitutional, cardiovascular, GI. Pulmonary, findings as above. CURRENT MEDICATIONS: Reviewed that include DuoNeb q.i.d., IV Lasix 40 mg q.12, verapamil. PHYSICAL EXAMINATION: Temperature 97.4 pulse 86, respirations 16, blood pressure 130/70, pulse ox 100 percent on 2 L. GENERAL APPEARANCE: Propped up in bed, more relaxed, awake. EYES: Pupils equal, conjunctivae pale. HEENT: External ears and nose normal. Oral cavity normal. NECK: JVD unable to assess. Mass not palpable. Respiratory effort increased. LUNGS: Improved air entry. No decreased breath sounds. CARDIOVASCULAR: Heart sounds regular. Edema present. ABDOMEN: Soft, nontender. Liver and spleen not palpable. PSYCHIATRY: Alert and oriented x3, less anxious. INVESTIGATIONS: White count 6.5, hemoglobin 7.7, platelets 39. INR 1.4. Potassium 4.7, BUN 85, creatinine 3.31. Troponin 0.2, 0.2. ASSESSMENT: 1. Acute on chronic congestive heart failure exacerbation from systolic dysfunction, EF 25-30 percent with clinical improvement. 2. Atrial flutter fibrillation with rapid ventricular rate on presentation, now improved. 3. Acute hypoxic respiratory failure from congestive heart failure and chronic obstructive pulmonary disease. The patient is currently off the BiPAP. 4. Moderate tricuspid regurgitation and severe mitral regurgitation, nonrheumatic. 5. Secondary pulmonary hypertension secondary to congestive heart failure and chronic obstructive pulmonary disease. 6. Acute chronic obstructive pulmonary disease exacerbation in an ex-smoker improving. 7. Multiple myeloma, currently on combination of Revlimid and Decadron. 8. 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 9. Essential hypertension. 10.Hyperlipidemia. 11.Chronic anemia normocytic secondary to chronic kidney disease. 12.Medical debility. 13.Bicytopenia, probably secondary to chemotherapy. 14.Hyperkalemia secondary to renal failure improved. 15.Troponin leak, not acute coronary syndrome, secondary to congestive heart failure. 16.Hypoalbuminemia from moderate protein-calorie malnutrition from decreased oral intake. PLAN: Continue medication and treatment plan. Antibiotics were rightfully discontinued. The patient remains on IV Lasix. Keep a close eye on renal function. Care was discussed with the patient's sister at bedside. Prognosis is guarded. It may be noted that the patient did convert to sinus rhythm yesterday. MMODL / IJN: [id number] /
[2017-11-12] MEDS: FUROSEMIDE 10 MG/ML 4 ML VIAL IV SCH (05:04)
[2017-11-12 06:33] LABS: Anisocytosis Slight; Basophils % (A) 0 %; Eosinophils # (A) 0.3 k/uL (0-0.7); Eosinophils % (A) 4 %; HCT 24.3 % (34.0-46.0); HGB 7.8 gm/dL (11.4-16.0); Lymphocytes # (A) 0.6 k/uL (1.0-4.8); Lymphocytes % (A) 9 %; MCHC 31.9 g/dL (31.0-37.0); Macrocytosis Slight; Mean Platelet Volume 9.8; Monocytes # (A) 0.3 k/uL (0-1.0); Monocytes % (A) 5 %; Neutrophils % (A) 79 %; RBC 2.51 m/uL (3.80-5.40); RDW 18.7 % (11.5-15.5); WBC 6.3 k/uL (3.8-10.6)
[2017-11-12 06:35] LABS: INR 1.4 (<1.2); Prothrombin Time 12.9 sec (9.0-12.0)
[2017-11-12 06:38] LABS: Platelet Count 41 k/uL (150-450)
--- NOTE | 2017-11-12 07:00 | XR ---
EXAMINATION TYPE: XR chest 1V DATE OF EXAM: 11/12/2017 HISTORY: CHF. REFERENCE: Previous study dated 11/10/2017. FINDINGS: The patient's right-sided pleural effusion has improved. There continues to be a small left effusion. The lungs are overinflated. Heart size upper limits of normal. Interstitial change is beco me more confluent in the right upper and lower lobes. IMPRESSION: 1. COPD. 2. CARDIOMEGALY. 3. MORE CONFLUENT INTERSTITIAL CHANGE. 4. LEFT-SIDED EFFUSION.
[2017-11-12] MEDS: ALPRAZolam 0.25 MG TAB PO PRN ×2 (08:09→18:45)
[2017-11-12] MEDS: BRIMONIDINE TARTRATE 0.2% DROPS 5 ML BTL BOTH EYES SCH ×2 (08:10→20:01)
[2017-11-12] MEDS: TIMOLOL 0.5% OPHTH DROPS 5 ML BTL LEFT EYE SCH ×2 (08:10→20:01)
[2017-11-12] MEDS: metroNIDAZOLE 500 MG TAB PO SCH ×3 (08:11→20:01)
[2017-11-12] MEDS: VERAPAMIL 40 MG TAB PO SCH ×3 (08:11→20:01)
[2017-11-12] MEDS: SODIUM BICARBONATE TAB 650 MG TAB PO SCH ×2 (08:11→20:02)
[2017-11-12] MEDS: CALCITRIOL 0.25 MCG CAP PO SCH (08:12)
[2017-11-12] MEDS: ENOXAPARIN 40 MG/0.4 ML SYRINGE SQ SCH (08:12)
[2017-11-12] MEDS: PANTOPRAZOLE 40 MG/10 ML VIAL IVP SCH (08:12)
[2017-11-12] MEDS: IPRATROPIUM-ALBUTEROL 3 ML NEB INHALATION SCH ×4 (08:55→20:09)
[2017-11-12] MEDS: SYMBICORT 160-4.5 MCG INHALER INHALATION SCH ×2 (08:55→20:09)
[2017-11-12 09:20] LABS: Potassium 3.4 mmol/L (3.5-5.1)
[2017-11-12 09:33] LABS: Calcium 6.4 mg/dL (8.4-10.2)
[2017-11-12] MEDS ORDERED: POTASSIUM CHLORIDE ER 20 MEQ TAB.ER PO STA (10:18)
[2017-11-12] MEDS: SERTRALINE 100 MG TAB PO SCH (12:56)
[2017-11-12] MEDS: CALCIUM CARBONATE 500 MG CHEWABLE PO SCH ×2 (12:56→20:01)
--- NOTE | 2017-11-12 13:58 | P.PN ---
Subjective Progress Note Date: 11/12/17 This is a 66-year-old female patient with a recent diagnosis of multiple myeloma as the patient presented with typical features of hypercalcemia, renal failure and further evaluation with blood work showed elevated light chains and the bone marrow biopsy was positive for myeloma with monoclonal plasma cells and playing 6% of the bone marrow. The patient was a she started on a combination of Revlimid and Velcade and Decadron and her labs showed progressive worsening the renal function and increase in the light chain. Subsequently she was started on Keprolis and Revlimid and Decadron. Note that she has had multiple hospitalizations over the past 4 months for pulmonary issues and infections and bone pain. The patient was recently admitted to the hospital on 10/23/2017 for progressive weakness, declining oral intake, some nausea and diarrhea and she had also fever. She had multitude of complaints at the same time. She was treated with antibiotics and she developed a systemic rash that was treated with steroids and the patient is currently on a prednisone burst taper she reports that this rash is gradually improving. Exact cause of the rash is not clear. She has undergone outpatient skin biopsy. Suspicion is that this is a either antibiotic versus drug-induced rash. She presented yesterday to the hospital because of an acute shortness of breath. Chest x-ray was consistent with pulmonary edema. ProBNP level was elevated and the patient had an acute on top of chronic renal failure in addition. She was found to be in atrial fibrillation with rapid ventricular response. The initial EKG showed A. fib/flutter with variable AV block and Q waves involving the septal wall. Patient is known to have CHF and therapeutic cardiac exam was done and showed borderline concentric left hypertrophy, ejection fraction of 25-30%, dilated LA, severe mitral regurgitation, moderate to severe pulmonary hypertension with a PA pressure of 48 mmHg. At the same time the IVC was dilated and there was no significant inspiratory collapse consistent with elevation of the right atrial pressure. She is currently on IV heparin knowing that her troponins were minimally elevated also and there was evidence of troponin leak. The patient was started on Lasix 40 mg IV push every 12 hours and she is already feeling better. She was taken off the BiPAP and she is currently on 4l by nasal cannula. Note that she has been diagnosed having COPD and she's never been on oxygen on a permanent basis and she has been using on and put her nebulizer when necessary. No previous history of DVT or pulmonary embolism. Antibiotic coverage is emphatic right now with a combination of Rocephin and Zithromax. On 11/11/2017 the patient is much improved and she is less short of breath. She wore the BiPAP overnight and she is very much improved on today's evaluation. No chest pain. No altered mentation. No cough or sputum production. Cardiology evaluated this patient and the patient will be treated conservatively with medicine. The patient has troponin leak probably a component of non-ST segment elevation myocardial infarction. Nevertheless she is on a candidate for any further intervention other than medical therapy. Renal function stable with a creatinine of 3.3 and follow-up levels are still pending for now. Hemoglobin is down to 7.7. The patient is on Lasix 40 mg IV push every 12 hours. 11/12/2017, patient is feeling better. She is currently off the BiPAP. Lasix and was switched to 60 mg by mouth twice a day. She has diuresed adequately. No significant respiratory difficulties. Minimal cough and congestion. She is on DuoNeb treatments around the clock. Renal function is stable with a creatinine of 3.2. Hemoglobin stable at 7.8. No leukocytosis. INR is at 1.4 Objective - Vital Signs Vital signs: Vital Signs Temp 98.5 F 11/12/17 12:00 Pulse 79 11/12/17 12:00 Resp 18 11/12/17 12:00 BP 131/65 11/12/17 12:00 Pulse Ox 95 11/12/17 12:00 Intake & Output 11/11/17 11/12/17 11/12/17 18:59 06:59 18:59 Intake Total 466 190 240 Output Total 1200 Balance 466 -1010 240 Weight 44 kg Intake: IV 10 190 0.9 190 Invasive Line 4 10 Oral 456 240 Output: Urine 1200 Other: Voiding Method Bedpan Bedpan Bedpan Diaper Diaper Diaper # Voids 2 3 - Exam General appearance: alert, little respiratory distress, currently off the BiPAP and the patient is on 42 by by nasal cannula. Head exam: Head exam was generally normal. There was no scleral icterus or corneal arcus. Mucous membranes were moist. Eye exam: PERRL, EOMI. nonicterus ENT exam: Neck Supple, Trachea Midline, Oral Thrush, dry mucus membranes Respiratory exam: mild respiratory distress, scattered expiratory wheezes, accessory muscle use noted, decreased breath sounds bibasilar, Cardiovascular Exam: tachycardia, irregular rhythm, GI/Abdominal exam: soft, normal bowel sounds, non-distended, non tender Extremities exam: no edema, Positive peripheral pulses Neurological exam: alert, oriented X3, CN II-XII intact Psychiatric exam: normal affect, normal mood Skin exam: Present: warm, dry, intact, normal color. Hyperpigmented areas from recent systemic rash, which has improved since evaluation last week - Labs CBC & Chem 7: 11/12/17 06:03 11/12/17 06:03 Labs: Abnormal Lab Results - Last 24 Hours (Table) 11/12/17 11/12/17 11/12/17 Range/Units 06:03 06:03 06:03 RBC 2.51 L (3.80-5.40) m/uL Hgb 7.8 L (11.4-16.0) gm/dL Hct 24.3 L (34.0-46.0) % RDW 18.7 H (11.5-15.5) % Plt Count 41 L (150-450) k/uL Lymphocytes # 0.6 L (1.0-4.8) k/uL PT 12.9 H (9.0-12.0) sec INR 1.4 H (<1.2) Potassium 3.4 L (3.5-5.1) mmol/L Chloride 112 H (98-107) mmol/L BUN 70 H (7-17) mg/dL Creatinine 3.28 H (0.52-1.04) mg/dL Calcium 6.4 L* (8.4-10.2) mg/dL Microbiology - Last 24 Hours (Table) 11/10/17 14:40 Gram Stain - Preliminary Sputum Sputum Culture - Preliminary Pseudomonas spec 11/09/17 14:16 Blood Culture - Preliminary Blood No Growth after 48 hours Assessment and Plan Plan: Assessment 1 acute decompensated heart failure as the patient is known to have systolic heart failure with ejection fraction of 25-30% and the patient's presentation is typical of acute heart failure and pulmonary edema in the setting of troponin leak and acute A. fib flutter with rapid ventricular response. Patient responded to diuretics and the patient is currently off BiPAP 2 acute hypoxic respiratory failure secondary to above 3 severe mitral regurgitation secondary pulmonary hypertension 4 questionable coronary artery disease and the patient has some minor troponin leak and Q waves involving the anterior leads. 5 multiple myeloma currently not in remission and the patient is currently on a combination of kYPROLIS and Revlimid and Decadron and this is a new regimen and lasts treatment which is cycle 2 was given on 11/02/2017. 6 chronic renal failure/myeloma kidney with a component of acute decompensation renal function secondary to above 7 COPD currently inactive in stable 8 abnormal LFTs 9 elevated d-dimer, nonspecific findings, pulmonary embolism is doubtful 10 previous history of CVA 11 hypertension 12 Hyperlipidemia 13 chronic bony aches and pain secondary to multiple myeloma 14 chronic anemia, cytopenia secondary to multiple myeloma Plan This patient was switched to oral Lasix 60 mg by mouth twice a day. Renal function is stable. Discontinue the BiPAP. Monitor renal function. Monitor electrolytes. We'll continue to follow. Possible discharge within next 24 hours. No further cardiac intervention and treatment will be essentially conservative and medical. Discontinue oxygen as the patient's oxygenation is also improved.
--- NOTE | 2017-11-12 14:10 | PN ---
PROGRESS NOTE Patient is seen for followup for chronic kidney disease and acute kidney injury. She was admitted with fluid overload and CHF exacerbation. Patient has been diuresed. Volume status has improved. Overall, she states she is feeling better. Lasix is at 40 mg IV q.12 hours. PHYSICAL EXAMINATION: On examination today, blood pressure was 131/65, heart rate 80 per minute. She is afebrile. Examination of the heart: S1, S2. Examination of the lungs: Bilateral breath sounds are heard. Abdomen is soft, nontender. Examination lower extremity shows no significant edema. LOC[employer] SAL[employer] ASSOCIATE exam is grossly intact. LABS: Show sodium 144, potassium 3.4, chloride 112, BUN 70, serum creatinine 3.28, calcium was 6.4, hemoglobin 7.8 g/dL. ASSESSMENT: 1. Acute kidney injury associated with atrial fibrillation with rapid ventricular response and congestive heart failure exacerbation, currently slightly better. I will switch the IV Lasix to p.o. Lasix. 2. Hypokalemia associated with diuretics. Will replace. 3. Chronic kidney disease stage IV secondary to multiple myeloma, being followed by Oncology. The patient has received chemotherapy. She is not in remission. She is still maintained on therapy. 4. Cardiomyopathy with ejection fraction on echocardiogram on November 09 showing it to be 25-30 percent with severely dilated left atrium and moderate pulmonary hypertension. 5. Anemia, multifactorial being followed by Hematology/Oncology. PLAN: Change Lasix to p.o. Repeat labs in a.m. We will maintain patient on Aranesp. No active bleeding noted. MMODL / IJN: [id number] /
[2017-11-12] MEDS: FUROSEMIDE 20 MG TAB PO SCH (15:18)
[2017-11-12] MEDS: LATANOPROST 0.005% OPHTH DROPS 2.5 ML BTL BOTH EYES SCH (20:01)
--- NOTE | 2017-11-12 21:28 | PN ---
PROGRESS NOTE DATE OF SERVICE: November 12, 2017. CHIEF COMPLAINT: Tired. HISTORY: Bertha is seen today as a followup. She feels much better. Her breathing is much better. She is ambulating well, moving well. No fever or chills. No melena, hematochezia, hematuria hemoptysis. MEDICATIONS: Reviewed in the electronic record. PHYSICAL EXAMINATION: She is alert, oriented x3. No acute distress. Her vital signs are temperature 97.7 afebrile, pulse 85 regular, respirations 16, blood pressure 123/70. HEENT: Normocephalic, atraumatic. NECK: Supple. Chest equal expansion bilaterally. LUNGS: Clear to auscultation. HEART: Regular rate and rhythm. ABDOMEN: Soft. No tenderness. EXTREMITIES: No edema. LABORATORY DATA: WBC are 6.3, hemoglobin 7.8, hematocrit 24.3, platelets are 41. Sodium 144, potassium 3.4, chloride 112, and CO2 is 22, BUN is 70, and creatinine is 3.32. IMPRESSION: 1. Multiple myeloma. The patient has progress through first-line treatment with VRD regimen and she was started on Revlimid dexamethasone regimen. 2. Kidney failure in part related to her multiple myeloma. 3. Acute decompensated heart failure. The patient is known to have ejection fraction of 25-30 percent. Certainly the use of could have led to more decompensation of her heart failure. 4. Multiple other comorbidities. 5. Pancytopenia. This is related to her multiple myeloma and related to also recent systemic treatment as well. RECOMMENDATION: 1. The patient will continue to monitor her blood count. 2. Continue current medical management for her heart failure. 3. In regard to further systemic treatment for her multiple myeloma is may not be a candidate for further treatment given her decompensation of her heart failure, also may not be a good candidate for Revlimid therapy due to her renal failure and the pancytopenia associated from Revlimid. The other alternative treatment may consider treatment monoclonal antibody data daratumumab along with Pomalyst which is safer given the setting of renal failure and dexamethasone. This issue will be addressed in the outpatient setting. Thank you very much. MMODL / IJN: [id number] /
[2017-11-13] MEDS: ALPRAZolam 0.25 MG TAB PO PRN ×2 (04:39→22:42)
[2017-11-13] MEDS: IPRATROPIUM-ALBUTEROL 3 ML NEB INHALATION SCH ×4 (07:00→20:25)
[2017-11-13] MEDS: SYMBICORT 160-4.5 MCG INHALER INHALATION SCH ×2 (07:00→20:25)
[2017-11-13 07:28] LABS: Anisocytosis Slight; Basophils % (A) 0 %; Eosinophils # (A) 0.9 k/uL (0-0.7); Eosinophils % (A) 17 %; HCT 24.1 % (34.0-46.0); Lymphocytes # (A) 0.7 k/uL (1.0-4.8); Lymphocytes % (A) 13 %; MCH 32.7 pg (25.0-35.0); MCHC 33.4 g/dL (31.0-37.0); MCV 98.1 fL (80.0-100.0); Macrocytosis Slight; Mean Platelet Volume 8.8; Monocytes # (A) 0.3 k/uL (0-1.0); Monocytes % (A) 5 %; Neutrophils # (A) 3.6 k/uL (1.3-7.7); Neutrophils % (A) 64 %; RBC 2.46 m/uL (3.80-5.40); WBC 5.7 k/uL (3.8-10.6)
[2017-11-13 07:29] LABS: INR 1.3 (<1.2); Prothrombin Time 12.1 sec (9.0-12.0)
[2017-11-13 07:36] LABS: Platelet Count 40 k/uL (150-450)
[2017-11-13 07:42] LABS: Calcium 6.6 mg/dL (8.4-10.2); Potassium 3.8 mmol/L (3.5-5.1)
[2017-11-13] MEDS: ENOXAPARIN 40 MG/0.4 ML SYRINGE SQ SCH (08:41)
[2017-11-13] MEDS: CALCITRIOL 0.25 MCG CAP PO SCH (08:41)
[2017-11-13] MEDS: CALCIUM CARBONATE 500 MG CHEWABLE PO SCH ×2 (08:41→20:13)
[2017-11-13] MEDS: SODIUM BICARBONATE TAB 650 MG TAB PO SCH ×2 (08:41→20:14)
[2017-11-13] MEDS: PANTOPRAZOLE 40 MG/10 ML VIAL IVP SCH (08:41)
[2017-11-13] MEDS: FUROSEMIDE 20 MG TAB PO SCH ×2 (08:42→15:39)
[2017-11-13] MEDS: VERAPAMIL 40 MG TAB PO SCH ×3 (08:42→20:14)
[2017-11-13] MEDS: metroNIDAZOLE 500 MG TAB PO SCH ×3 (08:43→20:14)
[2017-11-13] MEDS: TIMOLOL 0.5% OPHTH DROPS 5 ML BTL LEFT EYE SCH ×2 (08:45→20:13)
[2017-11-13] MEDS: BRIMONIDINE TARTRATE 0.2% DROPS 5 ML BTL BOTH EYES SCH ×2 (08:45→20:13)
--- NOTE | 2017-11-13 12:33 | P.PN ---
Subjective Progress Note Date: 11/13/17 Principal diagnosis: Acute decompensated heart failure, with known history of systolic dysfunction, and hypoxic respiratory failure, related to the above, improved This is a 66-year-old female patient with a recent diagnosis of multiple myeloma as the patient presented with typical features of hypercalcemia, renal failure and further evaluation with blood work showed elevated light chains and the bone marrow biopsy was positive for myeloma with monoclonal plasma cells and playing 6% of the bone marrow. The patient was a she started on a combination of Revlimid and Velcade and Decadron and her labs showed progressive worsening the renal function and increase in the light chain. Subsequently she was started on Keprolis and Revlimid and Decadron. Note that she has had multiple hospitalizations over the past 4 months for pulmonary issues and infections and bone pain. The patient was recently admitted to the hospital on 10/23/2017 for progressive weakness, declining oral intake, some nausea and diarrhea and she had also fever. She had multitude of complaints at the same time. She was treated with antibiotics and she developed a systemic rash that was treated with steroids and the patient is currently on a prednisone burst taper she reports that this rash is gradually improving. Exact cause of the rash is not clear. She has undergone outpatient skin biopsy. Suspicion is that this is a either antibiotic versus drug-induced rash. She presented yesterday to the hospital because of an acute shortness of breath. Chest x-ray was consistent with pulmonary edema. ProBNP level was elevated and the patient had an acute on top of chronic renal failure in addition. She was found to be in atrial fibrillation with rapid ventricular response. The initial EKG showed A. fib/flutter with variable AV block and Q waves involving the septal wall. Patient is known to have CHF and therapeutic cardiac exam was done and showed borderline concentric left hypertrophy, ejection fraction of 25-30%, dilated LA, severe mitral regurgitation, moderate to severe pulmonary hypertension with a PA pressure of 48 mmHg. At the same time the IVC was dilated and there was no significant inspiratory collapse consistent with elevation of the right atrial pressure. She is currently on IV heparin knowing that her troponins were minimally elevated also and there was evidence of troponin leak. The patient was started on Lasix 40 mg IV push every 12 hours and she is already feeling better. She was taken off the BiPAP and she is currently on 4l by nasal cannula. Note that she has been diagnosed having COPD and she's never been on oxygen on a permanent basis and she has been using on and put her nebulizer when necessary. No previous history of DVT or pulmonary embolism. Antibiotic coverage is emphatic right now with a combination of Rocephin and Zithromax. On 11/11/2017 the patient is much improved and she is less short of breath. She wore the BiPAP overnight and she is very much improved on today's evaluation. No chest pain. No altered mentation. No cough or sputum production. Cardiology evaluated this patient and the patient will be treated conservatively with medicine. The patient has troponin leak probably a component of non-ST segment elevation myocardial infarction. Nevertheless she is on a candidate for any further intervention other than medical therapy. Renal function stable with a creatinine of 3.3 and follow-up levels are still pending for now. Hemoglobin is down to 7.7. The patient is on Lasix 40 mg IV push every 12 hours. 11/12/2017, patient is feeling better. She is currently off the BiPAP. Lasix and was switched to 60 mg by mouth twice a day. She has diuresed adequately. No significant respiratory difficulties. Minimal cough and congestion. She is on DuoNeb treatments around the clock. Renal function is stable with a creatinine of 3.2. Hemoglobin stable at 7.8. No leukocytosis. INR is at 1.4 On the 2017 patient seen in follow-up on selective care unit. She is on room air, denies BiPAP last night, pulse ox is 95%, on room air, afebrile, respirations are even and nonlabored, lung sounds are positive for a few rales at the bases, overall patient's breathing is much improved, bilateral lower extremity edema has completely resolved. He is down by 2.1 kg in last 24 hours , patient is diuresing. Currently on oral Lasix at 60 mg twice daily. Denies shortness of breath or chest pain. Continues on nebulized treatments, no wheezing. No rhonchi. Labs were negative for any leukocytosis, WBCs 5.7, hemoglobin is 8.0 INR is 1.3, profile is improving, BUN is 61, creatinine is 2.97. Objective - Vital Signs Vital signs: Vital Signs Temp 98.1 F 11/13/17 08:00 Pulse 78 11/13/17 11:40 Resp 16 11/13/17 08:00 BP 116/57 11/13/17 08:00 Pulse Ox 95 11/13/17 08:00 Intake & Output 11/12/17 11/13/17 11/13/17 18:59 06:59 18:59 Intake Total 820 455 Output Total 300 Balance 820 155 Weight 41.9 kg Intake: IV 60 15 0.9 60 15 Oral 760 440 Output: Urine 300 Other: Voiding Method Bedpan Bedpan Bedpan Diaper Diaper Diaper # Voids 2 1 - Exam General appearance: alert, little respiratory distress, currently off the BiPAP and the patient is on 42 by by nasal cannula. Head exam: Head exam was generally normal. There was no scleral icterus or corneal arcus. Mucous membranes were moist. Eye exam: PERRL, EOMI. nonicterus ENT exam: Neck Supple, Trachea Midline, Oral Thrush, dry mucus membranes Respiratory exam: Lungs sounds are positive for a few scattered rales at the bilateral bases, no wheezing, no rhonchi noted on today's exam. Cardiovascular Exam: tachycardia, irregular rhythm, GI/Abdominal exam: soft, normal bowel sounds, non-distended, non tender Extremities exam: no edema, Positive peripheral pulses Neurological exam: alert, oriented X3, CN II-XII intact Psychiatric exam: normal affect, normal mood Skin exam: Present: warm, dry, intact, normal color. Hyperpigmented areas from recent systemic rash, which has improved since evaluation last week - Labs CBC & Chem 7: 11/13/17 07:02 11/13/17 07:02 Labs: Abnormal Lab Results - Last 24 Hours (Table) 11/13/17 11/13/17 11/13/17 Range/Units 07:02 07:02 07:02 RBC 2.46 L (3.80-5.40) m/uL Hgb 8.0 L (11.4-16.0) gm/dL Hct 24.1 L (34.0-46.0) % RDW 19.0 H (11.5-15.5) % Plt Count 40 L (150-450) k/uL Lymphocytes # 0.7 L (1.0-4.8) k/uL Eosinophils # 0.9 H (0-0.7) k/uL PT 12.1 H (9.0-12.0) sec INR 1.3 H (<1.2) Chloride 115 H (98-107) mmol/L Carbon Dioxide 20 L (22-30) mmol/L BUN 61 H (7-17) mg/dL Creatinine 2.97 H (0.52-1.04) mg/dL Calcium 6.6 L (8.4-10.2) mg/dL Microbiology - Last 24 Hours (Table) 11/10/17 14:40 Gram Stain - Final Sputum Sputum Culture - Final Pseudomonas aeruginosa 11/09/17 14:16 Blood Culture - Preliminary Blood No Growth after 72 hours Assessment and Plan Plan: Assessment: 1 acute decompensated heart failure as the patient is known to have systolic heart failure with ejection fraction of 25-30% and the patient's presentation is typical of acute heart failure and pulmonary edema in the setting of troponin leak and acute A. fib flutter with rapid ventricular response. Patient responded to diuretics and the patient is currently off BiPAP 2 acute hypoxic respiratory failure secondary to above, resolved 3 severe mitral regurgitation secondary pulmonary hypertension 4 questionable coronary artery disease and the patient has some minor troponin leak and Q waves involving the anterior leads. 5 multiple myeloma currently not in remission and the patient is currently on a combination of kYPROLIS and Revlimid and Decadron and this is a new regimen and lasts treatment which is cycle 2 was given on 11/02/2017. 6 chronic renal failure/myeloma kidney with a component of acute decompensation renal function secondary to above 7 COPD currently inactive in stable 8 abnormal LFTs 9 elevated d-dimer, nonspecific findings, pulmonary embolism is doubtful 10 previous history of CVA 11 hypertension 12 Hyperlipidemia 13 chronic bony aches and pain secondary to multiple myeloma 14 chronic anemia, cytopenia secondary to multiple myeloma Plan: Continue current medical treatment, continue oral diuretics, continue nebulized bronchodilators, Symbicort. Patient's breathing has much improved, bilateral lower extremity is resolved. Increase activity as tolerated, patient is on BiPAP support, not requiring any oxygen. Her profile is improving, continue monitoring renal profile and electrolytes. No chest pain, no shortness of breath, we will continue to follow I performed a history & physical examination of the patient and discussed their management with my nurse practitioner, Bere Alves. I reviewed the nurse practitioner's note and agree with the documented findings and plan of care. Lung sounds are bibasilar crackles. The findings and the impression was discussed with the patient. I attest to the documentation by the nurse practitioner. Time with Patient: Less than 30
[2017-11-13] MEDS: SERTRALINE 100 MG TAB PO SCH (12:53)
--- NOTE | 2017-11-13 14:31 | P.PN ---
Subjective Progress Note Date: 11/13/17 Principal diagnosis: congestive heart failure, multiple myeloma treatment Patient seen today in follow-up. She states feeling significantly better than on admission. All of the swelling in her extremities is resolved, she can now ambulate without difficulty in breathing, no cough, fevers, nausea, she is eating and drinking, Objective - Vital Signs Vital signs: Vital Signs Temp 98.0 F 11/13/17 12:00 Pulse 83 11/13/17 12:00 Resp 18 11/13/17 12:00 BP 130/56 11/13/17 12:00 Pulse Ox 97 11/13/17 12:00 Intake & Output 11/12/17 11/13/17 11/13/17 18:59 06:59 18:59 Intake Total 820 455 Output Total 300 Balance 820 155 Weight 41.9 kg Intake: IV 60 15 0.9 60 15 Oral 760 440 Output: Urine 300 Other: Voiding Method Bedpan Bedpan Bedpan Diaper Diaper Diaper # Voids 2 1 - Constitutional General appearance: Present: average body habitus, cooperative, no acute distress - EENT Eyes: Present: anicteric sclerae - Respiratory Respiratory: bilateral: diminished - Cardiovascular Rhythm: regular - Gastrointestinal General gastrointestinal: Present: soft - Neurologic Neurologic: Present: CNII-XII intact - Psychiatric Psychiatric: Present: A&O x's 3, appropriate affect, intact judgment & insight - Labs CBC & Chem 7: 11/13/17 07:02 11/13/17 07:02 Labs: Abnormal Lab Results - Last 24 Hours (Table) 11/13/17 11/13/17 11/13/17 Range/Units 07:02 07:02 07:02 RBC 2.46 L (3.80-5.40) m/uL Hgb 8.0 L (11.4-16.0) gm/dL Hct 24.1 L (34.0-46.0) % RDW 19.0 H (11.5-15.5) % Plt Count 40 L (150-450) k/uL Lymphocytes # 0.7 L (1.0-4.8) k/uL Eosinophils # 0.9 H (0-0.7) k/uL PT 12.1 H (9.0-12.0) sec INR 1.3 H (<1.2) Chloride 115 H (98-107) mmol/L Carbon Dioxide 20 L (22-30) mmol/L BUN 61 H (7-17) mg/dL Creatinine 2.97 H (0.52-1.04) mg/dL Calcium 6.6 L (8.4-10.2) mg/dL Microbiology - Last 24 Hours (Table) 11/10/17 14:40 Gram Stain - Final Sputum Sputum Culture - Final Pseudomonas aeruginosa 11/09/17 14:16 Blood Culture - Preliminary Blood No Growth after 72 hours Assessment and Plan (1) Multiple myeloma not having achieved remission Narrative/Plan: Patient unfortunately has not achieved disease control/remission on current therapy. Plans are to reevaluate her treatment, adjusted as appropriate. Patient did verbalize understanding the plan Current Visit: Yes Status: Chronic Priority: High Code(s): C90.00 - MULTIPLE MYELOMA NOT HAVING ACHIEVED REMISSION SNOMED Code(s): 344314600 (2) Bicytopenia Narrative/Plan: Anemia and thrombocytopenia, due to disease as well as treatment. Nephrology following, Aranesp has been initiated for anemia, no other intervention today. Continue CBC monitoring outpt, continue epo supplementation , conservative transfusions PRN. Patient is supposed to be on antiplatelet therapy. Platelets are 40,000 today. Typically antiplatelet therapy is not recommended for platelet counts less than 50,000. Defer risk vs benefit to Cardiology. Did review bleeding precautions, signs and symptoms of bleeding with patient. DVT prophylaxis with lovenox has been on hold. Current Visit: No Status: Chronic Priority: Medium Code(s): D75.89 - OTHER SPECIFIED DISEASES OF BLOOD AND BLOOD-FORMING ORGANS SNOMED Code(s): 099720053 (3) Myeloma kidney disease Narrative/Plan: Nephrology following. Creatinine is stable. Current Visit: Yes Status: Chronic Priority: High Code(s): C90.00 - MULTIPLE MYELOMA NOT HAVING ACHIEVED REMISSION; N28.89 - OTHER SPECIFIED DISORDERS OF KIDNEY AND URETER SNOMED Code(s): 54878190
--- NOTE | 2017-11-13 14:47 | PN ---
PROGRESS NOTE DATE OF SERVICE: PRESENTING COMPLAINT: Short of breath. INTERVAL HISTORY: The patient was seen by me yesterday on 11/12/2017. The patient has known congestive heart failure, atrial flutter fibrillation, presents with uncontrolled acute hypoxic respiratory failure and acute COPD exacerbation. Doing much better. Sitting up, tolerating a diet. Breathing is improved. Minimal edema if any, breathing is better. REVIEW OF SYSTEMS: Done for constitutional, cardiovascular, GI, pulmonary; relevant findings as above. CURRENT MEDICATIONS: Reviewed. PHYSICAL EXAMINATION: Examination temperature 97.7, pulse 85, respiration 16, blood pressure 122/70, pulse 95% on room air. GENERAL: Sitting at the edge of bed, far more improved. EYES: Pupils are normal. Conjunctivae are pale. HEENT: External appearance of nose and ears normal, oral cavity normal. NECK: JVD unable to assess. Mass not palpable. Respiratory effort increased. Lungs " =improved air entry. Cardiovascular 1st 2nd sounds normal minimal edema. ABDOMEN: Soft, nontender. Liver and spleen palpable. PSYCHIATRY: Alert and oriented x3, mood and affect more relaxed. INVESTIGATIONS: White count 6.3, hemoglobin 7.8, INR 1.4, potassium 3.4, BUN 70, creatinine 3.28. ASSESSMENT: 1. Acute on chronic congestive heart failure exacerbation from systolic dysfunction EF 25%-30% percent with significant improvement. 2. Atrial flutter fibrillation with rapid ventricular rate on presentation, now in sinus rhythm status paroxysmal. 3. Acute hypoxic respiratory failure from congestive heart failure and chronic obstructive pulmonary disease. The patient is off BiPAP now. 4. Moderate tricuspid regurgitation, severe mitral regurgitation, nonrheumatic. 5. Secondary pulmonary hypertension secondary to congestive heart failure and chronic obstructive pulmonary disease. 6. Acute chronic obstructive pulmonary disease exacerbation an ex-smoker improved. 7. Multiple myeloma, currently on chemotherapy. 8. 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 9. Essential hypertension. 10.Hyperlipidemia. 11.Chronic anemia, normocytic secondary to chronic kidney disease. 12.Medical debility. 13.Bicytopenia, probably centered with therapy. 14.Hyperkalemia, secondary to renal failure, improved. 15.Troponin leak secondary to congestive heart failure. 16.Hypoalbuminemia from moderate protein calorie malnutrition. PLAN: Patient overall doing much better. Patient has been switched to oral Lasix. Care was discussed with the patient. Encouraged to ambulate. MMODL / IJN: [id number] /
--- NOTE | 2017-11-13 15:14 | PN ---
PROGRESS NOTE Patient is seen for followup for acute kidney injury and chronic kidney disease. Currently, she is doing much better. She was admitted with volume overload and CHF exacerbation. Patient has been diuresed. PHYSICAL EXAMINATION: Blood pressure is 130/56, heart rate 83 per minute. She is afebrile. Examination of the heart, S1, S2. Examination of the lungs, bilateral breath sounds are heard. Abdomen is soft, nontender. Examination of the lower extremities shows no significant edema. C[employer] exam is grossly intact. LABS: Show sodium 144, potassium 3.8, BUN 61, serum creatinine 2.97, hemoglobin 8.0 g/dL. ASSESSMENT: 1. Acute kidney injury, cardiorenal, currently improved. 2. Congestive heart failure, volume overload, now improved. 3. Cardiomyopathy, ejection fraction 25%-30%. 4. Congestive heart failure exacerbation, acute on top of chronic, mainly systolic. 5. Moderate pulmonary hypertension. 6. Multiple myeloma, being followed by Heme-Onc. Patient is maintained on chemotherapy. 7. Chronic obstructive pulmonary disease with multiple admissions for exacerbations. 8. Recent systemic rash, status post supportive treatment. PLAN: Patient can be discharged from nephrology standpoint. She will need to continue with the oral Lasix. Follow up with the [facility] as outpatient. MMODL / IJN: [id number] /
[2017-11-13] MEDS: LATANOPROST 0.005% OPHTH DROPS 2.5 ML BTL BOTH EYES SCH (20:14)
--- NOTE | 2017-11-13 20:26 | PN ---
PROGRESS NOTE DATE OF SERVICE: November 13, 2017. PRESENTING COMPLAINT: Tired. INTERVAL HISTORY: The patient presented with congestive heart failure, atrial flutter fibrillation, that was uncontrolled and acute COPD exacerbation. Doing much better. Sitting up. Did tolerate a diet. Did walk up to the hallway. Overall feeling much better. REVIEW OF SYSTEMS: Done for constitutional, cardiovascular, GI, pulmonary; relevant findings as above. CURRENT MEDICATIONS: Reviewed that include DuoNeb, p.o. Lasix. PHYSICAL EXAMINATION: VITAL SIGNS: Temperature 98, pulse 83, respiratory 18, blood pressure 130/56, pulse ox 97 percent on room air. GENERAL APPEARANCE: In general, he was sitting up, more comfortable. EYES: Pupils equal. Conjunctivae pale. HEENT: External appearance of nose and ears normal. Oral cavity normal. NECK: JVD unable to assess. Mass not palpable. RESPIRATORY: Effort normal. LUNGS improved air entry. CARDIOVASCULAR: 1st and 2nd sounds normal. No edema. ABDOMEN: Soft, nontender. Liver and spleen is not palpable. PSYCHIATRY: Alert and oriented x3. Mood and affect normal. INVESTIGATIONS: White count 5.7, potassium 3.8, BUN 61, creatinine 2.97. ASSESSMENT: 1. Acute on chronic congestive heart failure exacerbation from systolic dysfunction, ejection fraction 25-30 percent with significant improvement. 2. Atrial flutter fibrillation with rapid ventricular rate on presentation, now in sinus rhythm. That is paroxysmal. 3. Acute hypoxic respiratory failure from congestive heart failure and chronic obstructive pulmonary disease exacerbation, on presentation, now much improved. 4. Moderate tricuspid regurgitation, severe mitral regurgitation, nonrheumatic. 5. Secondary pulmonary hypertension secondary to congestive heart failure and chronic obstructive pulmonary disease. 6. Acute chronic obstructive pulmonary disease exacerbation in an ex-smoker, much improved. 7. Multiple myeloma, currently on chemotherapy. 8. Chronic kidney disease secondary to myeloma disease stage IV. 9. Essential hypertension. 10.Hyperlipidemia. 11.Chronic anemia, normocytic secondary to chronic kidney disease. 12.Medical debility. 13.Bicytopenia, probably secondary to chemotherapy. 14.Hyperkalemia secondary to renal failure improved. 15.Troponin leak secondary to congestive heart failure. 16.Hypoalbuminemia probably from moderate protein-calorie malnutrition. PLAN: Care was discussed with the patient. Overall doing much better. Looking at probably discharge home tomorrow. MMODL / IJN: [id number] /
[2017-11-13] MEDS ORDERED: DEXAMETHASONE 4 MG TAB PO SCH (20:59)
[2017-11-14 06:52] LABS: Anisocytosis Slight; Basophils % (A) 0 %; Eosinophils # (A) 1.4 k/uL (0-0.7); Eosinophils % (A) 30 %; HCT 24.4 % (34.0-46.0); HGB 8.1 gm/dL (11.4-16.0); Lymphocytes # (A) 1.1 k/uL (1.0-4.8); Lymphocytes % (A) 23 %; MCH 32.1 pg (25.0-35.0); MCV 97.3 fL (80.0-100.0); Macrocytosis Slight; Mean Platelet Volume 9.4; Monocytes # (A) 0.2 k/uL (0-1.0); Monocytes % (A) 5 %; Neutrophils # (A) 1.8 k/uL (1.3-7.7); Neutrophils % (A) 38 %; Platelet Count 42 k/uL (150-450); Poikilocytosis Slight; RBC 2.51 m/uL (3.80-5.40); RDW 18.9 % (11.5-15.5); WBC 4.7 k/uL (3.8-10.6)
[2017-11-14] MEDS: IPRATROPIUM-ALBUTEROL 3 ML NEB INHALATION SCH ×3 (07:07→16:02)
[2017-11-14] MEDS: SYMBICORT 160-4.5 MCG INHALER INHALATION SCH (07:08)
[2017-11-14 07:15] LABS: Polychromasia Present
[2017-11-14 07:18] LABS: INR 1.2 (<1.2); Prothrombin Time 11.2 sec (9.0-12.0)
[2017-11-14] MEDS: metroNIDAZOLE 500 MG TAB PO SCH ×2 (08:20→15:52)
[2017-11-14] MEDS ORDERED: ENOXAPARIN 30 MG/0.3 ML SYRINGE SQ SCH (09:00)
[2017-11-14 10:32] VITALS: BMI 16.9
[2017-11-14] MEDS: PANTOPRAZOLE 40 MG/10 ML VIAL IVP SCH (11:22)
[2017-11-14] MEDS: SODIUM BICARBONATE TAB 650 MG TAB PO SCH (11:23)
[2017-11-14] MEDS: CALCIUM CARBONATE 500 MG CHEWABLE PO SCH (11:23)
[2017-11-14] MEDS: VERAPAMIL 40 MG TAB PO SCH ×2 (11:24→15:54)
[2017-11-14] MEDS: FUROSEMIDE 20 MG TAB PO SCH ×2 (11:24→15:53)
[2017-11-14] MEDS: CALCITRIOL 0.25 MCG CAP PO SCH (11:25)
[2017-11-14 11:37] VITALS: RESP 16
[2017-11-14] MEDS: TIMOLOL 0.5% OPHTH DROPS 5 ML BTL LEFT EYE SCH (12:14)
[2017-11-14] MEDS: SERTRALINE 100 MG TAB PO SCH (12:15)
[2017-11-14] MEDS: BRIMONIDINE TARTRATE 0.2% DROPS 5 ML BTL BOTH EYES SCH (12:15)
--- NOTE | 2017-11-14 12:26 | P.PN ---
Subjective Progress Note Date: 11/14/17 Principal diagnosis: Acute decompensated heart failure, with known history of systolic dysfunction, and hypoxic respiratory failure, related to the above, improved This is a 66-year-old female patient with a recent diagnosis of multiple myeloma as the patient presented with typical features of hypercalcemia, renal failure and further evaluation with blood work showed elevated light chains and the bone marrow biopsy was positive for myeloma with monoclonal plasma cells and playing 6% of the bone marrow. The patient was a she started on a combination of Revlimid and Velcade and Decadron and her labs showed progressive worsening the renal function and increase in the light chain. Subsequently she was started on Keprolis and Revlimid and Decadron. Note that she has had multiple hospitalizations over the past 4 months for pulmonary issues and infections and bone pain. The patient was recently admitted to the hospital on 10/23/2017 for progressive weakness, declining oral intake, some nausea and diarrhea and she had also fever. She had multitude of complaints at the same time. She was treated with antibiotics and she developed a systemic rash that was treated with steroids and the patient is currently on a prednisone burst taper she reports that this rash is gradually improving. Exact cause of the rash is not clear. She has undergone outpatient skin biopsy. Suspicion is that this is a either antibiotic versus drug-induced rash. She presented yesterday to the hospital because of an acute shortness of breath. Chest x-ray was consistent with pulmonary edema. ProBNP level was elevated and the patient had an acute on top of chronic renal failure in addition. She was found to be in atrial fibrillation with rapid ventricular response. The initial EKG showed A. fib/flutter with variable AV block and Q waves involving the septal wall. Patient is known to have CHF and therapeutic cardiac exam was done and showed borderline concentric left hypertrophy, ejection fraction of 25-30%, dilated LA, severe mitral regurgitation, moderate to severe pulmonary hypertension with a PA pressure of 48 mmHg. At the same time the IVC was dilated and there was no significant inspiratory collapse consistent with elevation of the right atrial pressure. She is currently on IV heparin knowing that her troponins were minimally elevated also and there was evidence of troponin leak. The patient was started on Lasix 40 mg IV push every 12 hours and she is already feeling better. She was taken off the BiPAP and she is currently on 4l by nasal cannula. Note that she has been diagnosed having COPD and she's never been on oxygen on a permanent basis and she has been using on and put her nebulizer when necessary. No previous history of DVT or pulmonary embolism. Antibiotic coverage is emphatic right now with a combination of Rocephin and Zithromax. On 11/11/2017 the patient is much improved and she is less short of breath. She wore the BiPAP overnight and she is very much improved on today's evaluation. No chest pain. No altered mentation. No cough or sputum production. Cardiology evaluated this patient and the patient will be treated conservatively with medicine. The patient has troponin leak probably a component of non-ST segment elevation myocardial infarction. Nevertheless she is on a candidate for any further intervention other than medical therapy. Renal function stable with a creatinine of 3.3 and follow-up levels are still pending for now. Hemoglobin is down to 7.7. The patient is on Lasix 40 mg IV push every 12 hours. 11/12/2017, patient is feeling better. She is currently off the BiPAP. Lasix and was switched to 60 mg by mouth twice a day. She has diuresed adequately. No significant respiratory difficulties. Minimal cough and congestion. She is on DuoNeb treatments around the clock. Renal function is stable with a creatinine of 3.2. Hemoglobin stable at 7.8. No leukocytosis. INR is at 1.4 On the 2017 patient seen in follow-up on selective care unit. She is on room air, denies BiPAP last night, pulse ox is 95%, on room air, afebrile, respirations are even and nonlabored, lung sounds are positive for a few rales at the bases, overall patient's breathing is much improved, bilateral lower extremity edema has completely resolved. He is down by 2.1 kg in last 24 hours , patient is diuresing. Currently on oral Lasix at 60 mg twice daily. Denies shortness of breath or chest pain. Continues on nebulized treatments, no wheezing. No rhonchi. Labs were negative for any leukocytosis, WBCs 5.7, hemoglobin is 8.0 INR is 1.3, profile is improving, BUN is 61, creatinine is 2.97. On 11/14/2017 patient seen again in follow-up on selective care unit. Respirations are even and nonlabored, she denies any acute distress, no shortness of breath or chest pain, bilateral lower extremity edema has resolved. Lung sounds are positive for a few rales at the bases, good air entry noted bilaterally, no rhonchi, no wheezes. Room air pulse ox is 98%. Patient remains on oral diuretics with Lasix 60 mg twice daily. Today's labs show WBC of 4.7, hemoglobin of 8.1, INR of 1.2. No BMP. She has been tolerating ambulation. Overall is stable, and could be considered for discharge home today. Objective - Vital Signs Vital signs: Vital Signs Temp 97.7 F 11/14/17 11:37 Pulse 79 11/14/17 11:39 Resp 16 11/14/17 11:39 BP 129/62 11/14/17 11:37 Pulse Ox 98 11/14/17 11:37 Intake & Output 11/13/17 11/14/17 11/14/17 18:59 06:59 18:59 Intake Total 1013 10 378 Output Total 300 0 Balance 713 10 378 Weight 42.1 kg 42.1 kg Intake: IV 15 10 0.9 15 Invasive Line 4 10 Oral 998 378 Output: Urine 300 0 Other: Voiding Method Bedpan Toilet Toilet Diaper # Voids 1 - Exam General appearance: alert, little respiratory distress, currently off the BiPAP and the patient is on 42 by by nasal cannula. Head exam: Head exam was generally normal. There was no scleral icterus or corneal arcus. Mucous membranes were moist. Eye exam: PERRL, EOMI. nonicterus ENT exam: Neck Supple, Trachea Midline, Oral Thrush, dry mucus membranes Respiratory exam: Lungs sounds are positive for a few scattered rales at the bilateral bases, no wheezing, no rhonchi noted on today's exam. Cardiovascular Exam: tachycardia, irregular rhythm, GI/Abdominal exam: soft, normal bowel sounds, non-distended, non tender Extremities exam: no edema, Positive peripheral pulses Neurological exam: alert, oriented X3, CN II-XII intact Psychiatric exam: normal affect, normal mood Skin exam: Present: warm, dry, intact, normal color. Hyperpigmented areas from recent systemic rash, which has improved since evaluation last week - Labs CBC & Chem 7: 11/14/17 06:30 11/13/17 07:02 Labs: Abnormal Lab Results - Last 24 Hours (Table) 11/14/17 11/14/17 Range/Units 06:30 06:30 RBC 2.51 L (3.80-5.40) m/uL Hgb 8.1 L (11.4-16.0) gm/dL Hct 24.4 L (34.0-46.0) % RDW 18.9 H (11.5-15.5) % Plt Count 42 L (150-450) k/uL Eosinophils # 1.4 H (0-0.7) k/uL INR 1.2 H (<1.2) Microbiology - Last 24 Hours (Table) 11/09/17 14:16 Blood Culture - Preliminary Blood No Growth after 96 hours 11/10/17 14:40 Gram Stain - Final Sputum Sputum Culture - Final Pseudomonas aeruginosa Assessment and Plan Plan: Assessment: 1 acute decompensated heart failure as the patient is known to have systolic heart failure with ejection fraction of 25-30% and the patient's presentation is typical of acute heart failure and pulmonary edema in the setting of troponin leak and acute A. fib flutter with rapid ventricular response. Patient responded to diuretics and the patient is currently off BiPAP 2 acute hypoxic respiratory failure secondary to above, resolved 3 severe mitral regurgitation secondary pulmonary hypertension 4 questionable coronary artery disease and the patient has some minor troponin leak and Q waves involving the anterior leads. 5 multiple myeloma currently not in remission and the patient is currently on a combination of kYPROLIS and Revlimid and Decadron and this is a new regimen and lasts treatment which is cycle 2 was given on 11/02/2017. 6 chronic renal failure/myeloma kidney with a component of acute decompensation renal function secondary to above 7 COPD currently inactive in stable 8 abnormal LFTs 9 elevated d-dimer, nonspecific findings, pulmonary embolism is doubtful 10 previous history of CVA 11 hypertension 12 Hyperlipidemia 13 chronic bony aches and pain secondary to multiple myeloma 14 chronic anemia, cytopenia secondary to multiple myeloma Plan: Continue current medical treatment, continue nebulized bronchodilators, Symbicort, diuretics per nephrology. Overall patient remains stable, she is on room air, tolerating ablation, no chest pain or shortness of breath. Bilateral lower extremity edema has resolved. We will order a BMP, to monitor for changes in the renal profile, and electrolytes. I performed a history & physical examination of the patient and discussed their management with my nurse practitioner, Bere Alves. I reviewed the nurse practitioner's note and agree with the documented findings and plan of care. Lung sounds are bibasilar crackles. The findings and the impression was discussed with the patient. I attest to the documentation by the nurse practitioner. Time with Patient: Less than 30
[2017-11-14 12:40] LABS: Calcium 7.4 mg/dL (8.4-10.2); Potassium 3.9 mmol/L (3.5-5.1)
--- NOTE | 2017-11-14 13:49 | P.PN ---
Subjective Progress Note Date: 11/14/17 Principal diagnosis: congestive heart failure, multiple myeloma treatment Patient seen today in follow-up. She continues to do well after treatment for CHF. She is on antibiotics for pseudomonas sputum positivity. Patient denies fevers, shortness of breath, productive cough, nausea, diarrhea or constipation. She denies any bleeding. Objective - Vital Signs Vital signs: Vital Signs Temp 97.7 F 11/14/17 11:37 Pulse 79 11/14/17 11:39 Resp 16 11/14/17 11:39 BP 129/62 11/14/17 11:37 Pulse Ox 98 11/14/17 11:37 Intake & Output 11/13/17 11/14/17 11/14/17 18:59 06:59 18:59 Intake Total 1013 10 378 Output Total 300 0 Balance 713 10 378 Weight 42.1 kg 42.1 kg Intake: IV 15 10 0.9 15 Invasive Line 4 10 Oral 998 378 Output: Urine 300 0 Other: Voiding Method Bedpan Toilet Toilet Diaper # Voids 1 - Exam alert and oriented 4, no acute distress, respirations even and unlabored, no swelling of lower extremities, patient is independent - Constitutional General appearance: Present: no acute distress, thin - EENT Eyes: Present: anicteric sclerae - Labs CBC & Chem 7: 11/14/17 06:30 11/14/17 06:30 Labs: Abnormal Lab Results - Last 24 Hours (Table) 11/14/17 11/14/17 11/14/17 Range/Units 06:30 06:30 06:30 RBC 2.51 L (3.80-5.40) m/uL Hgb 8.1 L (11.4-16.0) gm/dL Hct 24.4 L (34.0-46.0) % RDW 18.9 H (11.5-15.5) % Plt Count 42 L (150-450) k/uL Eosinophils # 1.4 H (0-0.7) k/uL INR 1.2 H (<1.2) Chloride 111 H (98-107) mmol/L BUN 59 H (7-17) mg/dL Creatinine 2.99 H (0.52-1.04) mg/dL Calcium 7.4 L (8.4-10.2) mg/dL Microbiology - Last 24 Hours (Table) 11/09/17 14:16 Blood Culture - Preliminary Blood No Growth after 96 hours Assessment and Plan (1) Multiple myeloma not having achieved remission Narrative/Plan: Patient unfortunately has not achieved disease control/remission on current therapy. Plans are to reevaluate her treatment plan. She sees Dr. Larson in the next 10 days. Current Visit: Yes Status: Chronic Priority: High Code(s): C90.00 - MULTIPLE MYELOMA NOT HAVING ACHIEVED REMISSION SNOMED Code(s): 406952713 (2) Bicytopenia Narrative/Plan: Anemia and thrombocytopenia, due to disease as well as treatment. Nephrology following, Aranesp has initiated for anemia, no other intervention today. Continue CBC monitoring outpt, continue epo supplementation, conservative transfusions PRN. Resumption of antiplatelet therapy per Cardiology. Typically antiplatelet therapy is not recommended for platelet counts less than 50,000. Defer risk vs benefit to Cardiology. Current Visit: No Status: Chronic Priority: Medium Code(s): D75.89 - OTHER SPECIFIED DISEASES OF BLOOD AND BLOOD-FORMING ORGANS SNOMED Code(s): 766326423 (3) Myeloma kidney disease Narrative/Plan: Nephrology following. Current Visit: Yes Status: Chronic Priority: High Code(s): C90.00 - MULTIPLE MYELOMA NOT HAVING ACHIEVED REMISSION; N28.89 - OTHER SPECIFIED DISORDERS OF KIDNEY AND URETER SNOMED Code(s): 79688361
[2017-11-14 15:57] VITALS: BP 140/64; TEMP 97
[2017-11-14 16:15] VITALS: PULSE 72
--- NOTE | 2017-11-14 21:38 | PN ---
PROGRESS NOTE The patient is seen for followup for acute kidney injury. She was admitted with CHF exacerbation and volume overload. Patient has been diuresed. She is feeling better. PHYSICAL EXAMINATION: Blood pressure is 140/64, heart rate 82 per minute. She is afebrile. EXAMINATION OF THE HEART: S1, S2. EXAMINATION OF LUNGS: Bilateral breath sounds are heard. Abdomen is soft, nontender. Examination of the lower extremity shows no evidence of edema. HYDRAULIC J[employer] ADJUSTER exam is grossly intact. LABS: Show sodium 142, potassium 3.9, BUN 59, serum creatinine 2.9, hemoglobin 8.1 g/dL. ASSESSMENT: 1. Acute kidney injury secondary to congestive heart failure and cardiorenal syndrome, currently improved. Serum creatinine about 2.9, which is close to her baseline. 2. Congestive heart failure, systolic, acute on top of chronic, currently improved. 3. Fluid overload, now improved. Lasix is currently oral and at 60 mg b.i.d. 4. CKD mineral bone disorder maintained on calcitriol. 5. Anemia of chronic disease maintained on Aranesp. 6. Chronic kidney disease stage IV secondary to multiple myeloma and being followed by the [facility]. 7. Recent rash, most likely allergic, currently improved. PLAN: Follow up with [facility] as outpatient regarding chemotherapy and we will see her as outpatient as well for followup for CKD and to monitor the volume status. Continue the current dose of Lasix for now. MMODL / IJN: [id number] /
--- NOTE | 2017-11-15 08:10 | DS ---
DISCHARGE SUMMARY DATE OF ADMISSION: November 09, 2017. DATE OF DISCHARGE: November 14, 2017. FINAL DIAGNOSES: 1. Acute on chronic congestive heart failure exacerbation from systolic dysfunction, ejection fraction 20-25 percent, POA. 2. Atrial flutter fibrillation rapid ventricular rate on presentation, paroxysmal, now in sinus rhythm, POA. 3. Acute hypoxic respiratory failure from congestive heart failure and chronic obstructive pulmonary disease exacerbation, POA. 4. Moderate tricuspid regurgitation and severe mitral regurgitation, nonrheumatic. 5. Secondary pulmonary hypertension secondary to congestive heart failure and chronic obstructive pulmonary disease. 6. Acute chronic obstructive pulmonary disease exacerbation in an ex-smoker, POA. 7. Multiple myeloma, currently on chemotherapy. 8. Chronic kidney disease secondary to myeloma stage IV. 9. Essential hypertension. 10.Hyperlipidemia. 11.Chronic anemia normocytic secondary to chronic kidney disease. 12.Medical debility. 13.Bicytopenia, probably secondary to chemotherapy. 14.Hyperkalemia secondary to renal failure. 15.Troponin leak secondary to congestive heart failure. 16.Hypoalbuminemia probably from moderate protein-calorie malnutrition. HOSPITAL COURSE: This patient undergoing treatment of multiple myeloma, presented with acute shortness of breath felt to be CHF exacerbation and COPD exacerbation. Also found to be in atrial flutter fibrillation with rapid ventricular rate. Responded well to breathing treatments and diuretics. The patient has underlying chronic kidney disease. At the time of discharge, BUN and creatinine was 59 and 2.99. Overall patient doing much better. Patient's platelets 42. EXAMINATION: Afebrile, pulse 82, blood pressure 140/64, pulse ox 98 percent on room air. Lungs fair entry. Cardiovascular 1st and second sounds normal. The patient has been up and about in the hallway. CONSULTATION: Dr. Larson from Oncology, Dr. Del Cid from Pulmonary, Dr. De Jesus from Nephrology, Dr. Sully Murphy from Cardiology. DISCUSSION: Discharge planning more than 35 minutes. DISCHARGE MEDICATIONS: 1. Plavix 75 mg with lunch. 2. Xalatan 0.005% 1 drop to both eyes q.h.s. 3. Zoloft 200 mg before lunch. 4. Alphagan 0.2% 1 drop to both eyes b.i.d. 5. Sodium bicarb 650 mg p.o. b.i.d. 6. Timoptic 0.5% 1 drop to left eye b.i.d. 7. Cosby 7.5 one tab p.o. t.i.d. p.r.n. 8. Symbicort 160/4.5, 2 puffs b.i.d. 9. Calcitriol 0.25 mcg p.o. daily. 10.Dexamethasone 20 mg p.o. daily on Mondays. 11.Tums 1000 mg p.o. q.i.d. 12.Questran 4 grams p.o. b.i.d. p.r.n. 13.Zantac 150 mg p.o. b.i.d. 14.Flagyl 500 mg p.o. t.i.d. from before. 15.Lasix 40 mg p.o. b.i.d. 16.DuoNeb t.i.d. 17.Potassium 20 mEq a day. 18.Verapamil 40 mg p.o. t.i.d. FOLLOWUP: Follow up with Dr. Larson on November 20, 2017, Dr. Villalobos in a week, Dr. Hart on November 22, 2017, Dr. Vivar on November 28, 2017, [facility] in [address] Villalobos. XENIA / IJN: [id number] /
== END 2017-11-14 18:00 | disposition home or self-care (01) | DRG 280 ==
LOC: EC 13:36 → 6SEL 16:26
PROVIDERS: ADMIT Hospitalist; ATTEND Hospitalist
DX: I13.0 Hypertensive heart and chronic kidney disease with heart failure and stage 1 through stage 4 chronic kidney disease, or unspecified chronic kidney disease (principal); I21.4 Non-ST elevation (NSTEMI) myocardial infarction; I50.23 Acute on chronic systolic (congestive) heart failure; J96.21 Acute and chronic respiratory failure with hypoxia; S22.42XA Multiple fractures of ribs, left side, initial encounter for closed fracture; C90.00 Multiple myeloma not having achieved remission; D61.818 Other pancytopenia; E44.0 Moderate protein-calorie malnutrition; E87.2 Acidosis; I48.92 Unspecified atrial flutter; J44.1 Chronic obstructive pulmonary disease with (acute) exacerbation; N17.9 Acute kidney failure, unspecified; N18.4 Chronic kidney disease, stage 4 (severe); D63.8 Anemia in other chronic diseases classified elsewhere; D69.59 Other secondary thrombocytopenia; E78.5 Hyperlipidemia, unspecified; E87.5 Hyperkalemia; E87.6 Hypokalemia; F17.200 Nicotine dependence, unspecified, uncomplicated; G89.3 Neoplasm related pain (acute) (chronic); H40.9 Unspecified glaucoma; I36.1 Nonrheumatic tricuspid (valve) insufficiency; I34.0 Nonrheumatic mitral (valve) insufficiency; I27.29 Other secondary pulmonary hypertension; I42.9 Cardiomyopathy, unspecified; I44.30 Unspecified atrioventricular block; I48.0 Paroxysmal atrial fibrillation; M06.9 Rheumatoid arthritis, unspecified; T45.1X5A Adverse effect of antineoplastic and immunosuppressive drugs, initial encounter; Z79.02 Long term (current) use of antithrombotics/antiplatelets; Z79.51 Long term (current) use of inhaled steroids; Z80.1 Family history of malignant neoplasm of trachea, bronchus and lung; Z85.830 Personal history of malignant neoplasm of bone; Z86.73 Personal history of transient ischemic attack (TIA), and cerebral infarction without residual deficits; Z98.82 Breast implant status; Z79.891 Long term (current) use of opiate analgesic; Z79.899 Other long term (current) drug therapy; Z88.1 Allergy status to other antibiotic agents; Z88.5 Allergy status to narcotic agent; Z88.2 Allergy status to sulfonamides; Z98.1 Arthrodesis status
CPT/HCPCS: 36415; 71045; 76705; 80048; 80053; 82550; 82553; 83735; 83880; 84484; 85025; 85379; 85384; 85610; 85730; 87040; 87070; 87077; 87186; 87205; 93005; 93306; 94640; 94660; 94760; 96365; 96366; 96368; 96375; 96376; 99291

== ENCOUNTER 2017-12-28 16:57 | Inpatient (IN) | payer MEDICARE ==
[2017-12-28] MEDS ORDERED: DILTIAZEM DRIP BOLUS FROM BAG 1 MG SOLN IV ONE (17:33)
[2017-12-28] MEDS ORDERED: SODIUM CHLORIDE 0.9% 1,000 ML IV STA (17:33)
--- NOTE | 2017-12-28 17:34 | ED ---
Arrhythmia/Palpitations HPI - General Chief Complaint: Arrhythmia/Palpitations Stated Complaint: irregular heart rate Time Seen by Provider: 12/28/17 17:33 Source: patient, RN notes reviewed, old records reviewed Mode of arrival: wheelchair Limitations: no limitations - History of Present Illness Initial Comments: This is a 67-year-old female ER for evaluation. Presents today for evaluation regarding chest pain palpitations shortness of breath cough and congestion. No fevers. Patient is multiple medical issues including underlying multiple myeloma myeloma. Patient was seen in Dr. Larson in the office and sent to ER for evaluation of elevated heart rate and difficulty breathing MD Complaint: rapid heart beat, "heart racing", atrial fibrillation -: hour(s), days(s) Context: occurred during rest, occurred during exertion Arrhythmia History: atrial fibrillation Associated Symptoms: shortness of breath, cough - Related Data Home Medications Medication Instructions Recorded Confirmed Clopidogrel [Plavix] 75 mg PO AC-LUNCH 01/28/17 12/28/17 Latanoprost Ophth [Xalatan 0.005%] 1 drops BOTH EYES HS 01/28/17 12/28/17 Sertraline [Zoloft] 200 mg PO AC-LUNCH 01/28/17 12/28/17 Brimonidine Tartrate [Alphagan P 1 drops BOTH EYES BID 04/05/17 12/28/17 0.2% Ophth Soln] Timolol 0.5% Ophth Soln [Timoptic 1 drop LEFT EYE BID 08/03/17 12/28/17 0.5% Ophth Soln] Budesonide-Formot 160-4.5 Mcg 2 puff INHALATION RT-BID 10/23/17 12/28/17 [Symbicort 160-4.5 Mcg Inhaler] Calcitriol 0.25 mcg PO DAILY 10/23/17 12/28/17 Dexamethasone 20 mg PO MO 10/23/17 12/28/17 Acyclovir 400 mg PO DAILY 12/28/17 12/28/17 Furosemide [Lasix] 40 mg PO BID 12/28/17 12/28/17 Ipratropium-Albuterol Nebulize 3 ml INHALATION RT-TID 12/28/17 12/28/17 [Duoneb 0.5 mg-3 mg/3 ml Soln] Ixazomib Citrate [Ninlaro] 4 mg PO DIRECTED 12/28/17 12/28/17 Lenalidomide [Revlimid] 25 mg PO DAILY 12/28/17 12/28/17 Previous Rx's Medication Instructions Recorded Sodium Bicarbonate Tab 650 mg PO BID #60 tab 05/29/17 HYDROcodone/APAP 7.5-325MG [[place] 1 tab PO TID PRN #30 tab 08/05/17 7.5-325] Calcium Carbonate [Tums] 1,000 mg PO QID #90 chew 10/27/17 Cholestyramine (with Sugar) 4 gm PO BID@1000,1800 PRN #20 10/27/17 [Questran Packet] packet Ranitidine HCl [Zantac] 150 mg PO BID #30 tab 10/27/17 Potassium Chloride [Klor-Con 20] 20 meq PO DAILY #30 tab 11/14/17 Verapamil [Isoptin] 40 mg PO TID #90 tab 11/14/17 Allergies Allergy/AdvReac Type Severity Reaction Status Date / Time Penicillins Allergy Unknown Unknown Verified 12/28/17 18:01 Cephalosporins Allergy Unknown Verified 12/28/17 18:01 ciprofloxacin HCl Allergy Lip Verified 12/28/17 18:01 [From Cipro] swelling, itching codeine Allergy Unknown Verified 12/28/17 18:01 Sulfa (Sulfonamide Allergy Unknown Verified 12/28/17 18:01 Antibiotics) Review of Systems ROS Statement: Those systems with pertinent positive or pertinent negative responses have been documented in the HPI. ROS Other: All systems not noted in ROS Statement are negative. 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 anxiety, anemia recent admission she recieved blood History of Any Multi-Drug Resistant Organisms: None Reported Past Surgical History: Back Surgery Additional Past Surgical History / Comment(s): LUMBAR FUSION 1.5 YRS AGO, BREAST IMPLANTS IN THE 70'S REMOVED MID 90'S Past Anesthesia/Blood Transfusion Reactions: No Reported Reaction Past Psychological History: No Psychological Hx Reported Smoking Status: Former smoker Past Alcohol Use History: None Reported Past Drug Use History: None Reported - Past Family History Father Additional Family Medical History / Comment(s): FATHER 99 YRS OLD STILL LIVING HAS PROSTATE ISSUES Mother Family Medical History: Cancer Additional Family Medical History / Comment(s): LUNG CANCER General Exam Limitations: no limitations General appearance: alert, in no apparent distress, anxious Head exam: Present: atraumatic, normocephalic, normal inspection Eye exam: Present: normal appearance, PERRL, EOMI. Absent: scleral icterus, conjunctival injection, periorbital swelling ENT exam: Present: normal exam, mucous membranes moist Neck exam: Present: normal inspection. Absent: tenderness, meningismus, lymphadenopathy Respiratory exam: Present: normal lung sounds bilaterally. Absent: respiratory distress, wheezes, rales, rhonchi, stridor Cardiovascular Exam: Present: tachycardia, irregular rhythm, normal heart sounds. Absent: systolic murmur, diastolic murmur, rubs, gallop, clicks GI/Abdominal exam: Present: soft, normal bowel sounds. Absent: distended, tenderness, guarding, rebound, rigid Extremities exam: Present: normal inspection, full ROM, normal capillary refill. Absent: tenderness, pedal edema, joint swelling, calf tenderness Back exam: Present: normal inspection Neurological exam: Present: alert, oriented X3, CN II-XII intact Psychiatric exam: Present: normal affect, normal mood Skin exam: Present: warm, dry, intact, normal color. Absent: rash Course Vital Signs 12/28/17 12/28/17 17:05 17:50 Temperature 97.4 F L Pulse Rate 139 H 93 Respiratory 24 Rate Blood Pressure 116/58 113/59 O2 Sat by Pulse 100 Oximetry - Reevaluation(s) Reevaluation #1: 12/28/17 18:28 Medical record is reviewed Reevaluation #2: 12/28/17 18:28 Patient's A. fib is resolved here in the emergency room Medical Decision Making - Medical Decision Making 67 female the ER for evaluation shortness of breath cough and A. fib with RVR. Patient will admit for IV steroids IV fluids and breathing treatments - Lab Data Result diagrams: 12/28/17 17:45 12/28/17 17:45 Lab Results 12/28/17 12/28/17 12/28/17 Range/Units 17:45 17:45 17:45 WBC 5.4 (3.8-10.6) k/uL RBC 2.64 L (3.80-5.40) m/uL Hgb 9.2 L (11.4-16.0) gm/dL Hct 27.7 L (34.0-46.0) % MCV 104.8 H D (80.0-100.0) fL MCH 34.7 (25.0-35.0) pg MCHC 33.1 (31.0-37.0) g/dL RDW 14.6 (11.5-15.5) % Plt Count 76 L D (150-450) k/uL Neutrophils % 63 % Lymphocytes % 17 % Monocytes % 12 % Eosinophils % 6 % Basophils % 0 % Neutrophils # 3.4 (1.3-7.7) k/uL Lymphocytes # 0.9 L (1.0-4.8) k/uL Monocytes # 0.6 (0-1.0) k/uL Eosinophils # 0.3 (0-0.7) k/uL Basophils # 0.0 (0-0.2) k/uL Macrocytosis Slight PT 9.8 (9.0-12.0) sec INR 1.0 (<1.2) APTT 22.5 (22.0-30.0) sec Sodium 139 (137-145) mmol/L Potassium 4.2 (3.5-5.1) mmol/L Chloride 102 (98-107) mmol/L Carbon Dioxide 24 (22-30) mmol/L Anion Gap 13 mmol/L BUN 63 H (7-17) mg/dL Creatinine 3.33 H (0.52-1.04) mg/dL Est GFR (CKD-EPI)AfAm 16 (>60 ml/min/1.73 sqM) Est GFR (CKD-EPI)NonAf 14 (>60 ml/min/1.73 sqM) Glucose 80 (74-99) mg/dL Calcium 9.2 (8.4-10.2) mg/dL Phosphorus 4.2 (2.5-4.5) mg/dL Magnesium 2.2 (1.6-2.3) mg/dL Total Bilirubin 0.4 (0.2-1.3) mg/dL AST 19 (14-36) U/L ALT 31 (9-52) U/L Alkaline Phosphatase 77 (38-126) U/L Total Protein 6.7 (6.3-8.2) g/dL Albumin 4.3 (3.5-5.0) g/dL - Radiology Data Radiology results: report reviewed (Chest x-rays negative for acute disease), image reviewed Disposition Clinical Impression: Acute exacerbation of chronic obstructive airways disease, Multiple myeloma not having achieved remission, Chest pain, Atrial fibrillation with RVR Disposition: ADMITTED IP TO THIS HOSP Condition: Fair Is patient prescribed a controlled substance at d/c from ED?: No Referrals: Kirby Villalobos DO [Primary Care Provider] - 1-2 days
[2017-12-28] MEDS ORDERED: DILTIAZEM 50 MG in SODIUM CHLORIDE 0.9% 40 ML IV SCH (18:00)
[2017-12-28 18:20] LABS: Basophils % (A) 0 %; Eosinophils # (A) 0.3 k/uL (0-0.7); Eosinophils % (A) 6 %; HCT 27.7 % (34.0-46.0); HGB 9.2 gm/dL (11.4-16.0); Lymphocytes # (A) 0.9 k/uL (1.0-4.8); Lymphocytes % (A) 17 %; MCH 34.7 pg (25.0-35.0); MCHC 33.1 g/dL (31.0-37.0); Macrocytosis Slight; Mean Platelet Volume 9.3; Monocytes # (A) 0.6 k/uL (0-1.0); Monocytes % (A) 12 %; Neutrophils # (A) 3.4 k/uL (1.3-7.7); Neutrophils % (A) 63 %; RBC 2.64 m/uL (3.80-5.40); RDW 14.6 % (11.5-15.5); WBC 5.4 k/uL (3.8-10.6)
[2017-12-28 18:24] LABS: Albumin 4.3 g/dL (3.5-5.0); Calcium 9.2 mg/dL (8.4-10.2); Magnesium 2.2 mg/dL (1.6-2.3); Phosphorus 4.2 mg/dL (2.5-4.5); Platelet Count 76 k/uL (150-450); Potassium 4.2 mmol/L (3.5-5.1); Total Bilirubin 0.4 mg/dL (0.2-1.3); Total Protein 6.7 g/dL (6.3-8.2)
[2017-12-28] MEDS ORDERED: methylPREDNISolone SOD SUCCI 125 MG/2 ML VIAL IV STA (18:24)
[2017-12-28] MEDS ORDERED: NITROGLYCERIN SL TABS 0.4 MG TAB SUBLINGUAL PRN (18:24)
[2017-12-28 18:25] LABS: MCV 104.8 fL (80.0-100.0); Partial Thromboplastin Time 22.5 sec (22.0-30.0); Prothrombin Time 9.8 sec (9.0-12.0)
[2017-12-28 18:59] LABS: Creatine Kinase MB 2.8 ng/mL (0.0-2.4)
[2017-12-28 19:01] LABS: Troponin I 0.049 ng/mL (0.000-0.034)
--- NOTE | 2017-12-28 19:01 | XR ---
EXAMINATION TYPE: XR chest 2V DATE OF EXAM: 12/28/2017 COMPARISON: 11/12/2017 HISTORY: Chest pain TECHNIQUE: Frontal and lateral views of the chest are obtained. FINDINGS: There are numerous bilateral old healed rib fractures. There is no heart failure nor confl uent pneumonic infiltrate. Costophrenic angles are clear. There is mild pulmonary hyperinflation. The bony thorax is intact. IMPRESSION: There is probably COPD. There is clearing of the heart failure compared to last exam.
[2017-12-28] MEDS ORDERED: AZITHROMYCIN 500 MG in SODIUM CHLORIDE 0.9% 250 ML IVPB STA (19:53)
[2017-12-28] MEDS ORDERED: CHOLESTYRAMINE (WITH SUGAR) 4 GM PACKET PO PRN (21:50)
[2017-12-28] MEDS ORDERED: HYDROcodone/APAP 7.5-325MG 1 EACH TAB PO PRN (21:50)
--- NOTE | 2017-12-28 23:03 | HP ---
HISTORY AND PHYSICAL DATE OF ADMISSION AND SERVICE: 12/28/2017. PRESENTING COMPLAINT: Short of breath, cough, congested. HISTORY OF PRESENTING COMPLAINT: This is a very pleasant 67-year-old patient who is diagnosed with multiple myeloma and multiple other medical problems. Patient is being given chemotherapy and has received medications, including Revlimid, Velcade and Decadron, and has also chronic kidney disease. The patient also has received Kyprolis and Revlimid and Decadron. Patient also has had paroxysmal atrial fibrillation. The patient was in the hospital over a month ago, discharged on 11/14/2017. The patient then was admitted with CHF exacerbation, EF being 20% to 25%, and also atrial flutter/fibrillation with a rapid ventricular rate. Patient's chronic stable medical conditions include moderate tricuspid regurgitation, severe mitral regurgitation, secondary pulmonary hypertension, COPD, multiple myeloma, chronic kidney disease secondary to myeloma, hypertension, hyperlipidemia, chronic anemia. Patient for the last few days has had a cold, cough, congestion, just feeling a bit tired and rundown. She has some phlegm, yellow in color. No fever or chills. Appetite has been okay. Went down to see CARLITOS Garcia at the oncologist's office. She was sounding congested and Radha decided to send her down here after patient also was found to be in atrial fibrillation with rapid ventricular rate. The patient had no obvious palpitation but did feel a bit short of breath. Cardizem drip was ordered in the ER, but before it could be started, the patient reverted back to normal sinus rhythm. REVIEW OF SYSTEMS: CONSTITUTIONAL: Weak, tired. HEENT: None. RESPIRATORY: As above. CARDIOVASCULAR: As above. GASTROINTESTINAL: None. GENITOURINARY: None. MUSCULOSKELETAL: Pain in different joints. DERMATOLOGICAL: None. HEMATOLOGICAL: None. LYMPHATICS: None. PSYCHIATRY: Anxious. NEUROLOGICAL: None. PAST MEDICAL HISTORY: 1. Congestive heart failure, EF 20% to 25%. 2. Atrial flutter/fibrillation. 3. Moderate tricuspid regurgitation and severe mitral regurgitation. 4. Secondary pulmonary hypertension. 5. COPD. 6. Multiple myeloma. 7. Chronic kidney disease from myeloma. 8. Hypertension. 9. Hyperlipidemia. 10.Chronic anemia. 11.Medical debility. PAST SURGICAL HISTORY: 1. Back surgery. 2. Lumbar fusion a year and a half ago. 3. Breast implants in 1969, removed in the . SOCIAL HISTORY: Patient smoked from the age of 19 for about 50 years, smoked about a pack a day; stopped in 2014. Alcohol rarely. Lives with her . FAMILY HISTORY: Prostate cancer. HOME MEDICATIONS: 1. Revlimid 25 mg p.o. daily. 2. Ninlaro as directed. 3. DuoNeb 3 times a day. 4. Symbicort 160/4.5 two puffs b.i.d. 5. Isoptin 40 mg t.i.d. 6. Timoptic 0.5% one drop in left eye b.i.d. 7. Sodium bicarb 650 mg b.i.d. 8. Zoloft 200 mg before lunch. 9. Zantac 150 mg b.i.d. 10.Klor-Con 20 mEq a day. 11.Xalatan 0.005% one drop to both eyes at bedtime. 12.Temple 7.5 one tablet p.o. t.i.d. p.r.n. 13.Lasix 40 mg p.o. b.i.d. 14.Dexamethasone 20 mg p.o. Mondays. 15.Plavix 75 mg before lunch. 16.Questran 4 grams p.o. b.i.d. 17.Tums 1000 mg p.o. q.i.d. 18.Calcitriol 0.25 mcg p.o. daily. 19.Alphagan 0.2% one drop to both eyes b.i.d. 20.Acyclovir 400 mg p.o. daily. ALLERGIES: 1. PENICILLIN. 2. CEPHALOSPORIN. 3. CIPRO. 4. CODEINE. 5. SULFA. PHYSICAL EXAMINATION: VITAL SIGNS ON PRESENTATION: Temperature 97.4, pulse 139, respiration 24, blood pressure 116/58, pulse ox 1005 on room air. GENERAL APPEARANCE: Thin build. BMI 16.3. Sitting on bed. A bit tired-appearing. EYES: Pupils equal. Conjunctivae pale. HEENT: External appearance of nose and ears normal. Oral cavity normal. NECK: JVD not raised. Mass not palpable. RESPIRATORY: Effort increased. LUNGS: Decreased breath sounds. Some expiratory crackles. CARDIOVASCULAR: First and second sounds normal. No edema. ABDOMEN: Soft, non-tender. Liver and spleen not palpable. LYMPHATIC: No lymph node palpable in neck or axillae. PSYCHIATRY: Alert and oriented x3. Mood and affect slightly anxious-appearing. NEUROLOGICAL: Pupils equal. Cranial nerves grossly intact. Power and sensation grossly intact. MUSCULOSKELETAL: Evidence of osteoarthritis, especially in the hands. Diffuse wasting of the muscles, loss of subcutaneous fat. INVESTIGATIONS: White count 5.4, hemoglobin 9.2, platelets 76, potassium 4.2, BUN 63, creatinine 3.33. Troponin 0.049. ProBNP 1770. EKG tracing, personally reviewed by me, shows normal sinus rhythm. Chest x-ray film, personally reviewed by me, shows hyperinflation; no obvious infiltrate. ASSESSMENT: 1. Paroxysmal atrial flutter/fibrillation with rapid ventricular rate on presentation, now spontaneously reverted to sinus rhythm. 2. Acute chronic obstructive pulmonary disease exacerbation in an ex-smoker. 3. Chronic congestive heart failure from systolic dysfunction, ejection fraction 20% to 255. 4. Moderate tricuspid and severe mitral regurgitation, non-rheumatic. 5. Secondary pulmonary hypertension secondary to congestive heart failure and chronic obstructive pulmonary disease. 6. Multiple myeloma, currently on chemotherapy. 7. 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 8. Essential hypertension. 9. Hyperlipidemia. 10.Bicytopenia secondary to chemotherapy and chronic kidney disease. 11.Troponin leak, probably due to underlying renal failure. No evidence of acute coronary syndrome. 12.Hypoalbuminemia from moderate protein-calorie malnutrition. PLAN: Patient will be started on nebulized bronchodilators, IV steroids, Mucinex. Sputum will be sent off for Gram stain and culture. Patient is back in sinus rhythm, already on verapamil. That will be continued. Cardizem drip is not to be initiated. Other home medications are to be reviewed. Care was discussed with the patient. Questions were answered. Cardiology will be consulted. MMODL / IJN: [id number] /
[2017-12-29] MEDS ORDERED: methylPREDNISolone SOD SUCCI 125 MG/2 ML VIAL IV SCH
[2017-12-29 01:34] LABS: Creatine Kinase MB 2.3 ng/mL (0.0-2.4)
[2017-12-29 01:38] LABS: Troponin I 0.068 ng/mL (0.000-0.034)
[2017-12-29 06:44] LABS: Cholesterol 156 mg/dL (<200); HDL Cholesterol 57 mg/dL (40-60); LDL Cholesterol,Calculated 76 mg/dL (0-99); Triglycerides 115 mg/dL (<150)
[2017-12-29 07:02] LABS: Creatine Kinase MB 2.1 ng/mL (0.0-2.4)
[2017-12-29 07:03] LABS: Troponin I 0.04 ng/mL (0.000-0.034)
[2017-12-29] MEDS: SYMBICORT 160-4.5 MCG INHALER INHALATION SCH ×2 (08:52→18:58)
[2017-12-29] MEDS: IPRATROPIUM-ALBUTEROL 3 ML NEB INHALATION SCH ×5 (08:52→18:57)
[2017-12-29] MEDS ORDERED: INFLUENZA VACCINE (6 MOS+) 60 MCG/0.5 ML SYRINGE IM ONE (10:00)
[2017-12-29] MEDS: BRIMONIDINE TARTRATE 0.2% DROPS 5 ML BTL BOTH EYES SCH ×3 (10:26→21:10)
[2017-12-29] MEDS: LATANOPROST 0.005% OPHTH DROPS 2.5 ML BTL BOTH EYES SCH ×2 (10:26→21:11)
[2017-12-29] MEDS: FAMOTIDINE 20 MG TAB PO SCH ×2 (10:26→10:31)
[2017-12-29] MEDS: guaiFENesin 600 MG TABLET.ER PO SCH ×3 (10:26→21:12)
[2017-12-29] MEDS: SODIUM CHLORIDE 0.9% 1,000 ML IV SCH ×4 (10:26→21:15)
[2017-12-29] MEDS: CALCIUM CARBONATE 500 MG CHEWABLE PO SCH ×5 (10:26→21:12)
[2017-12-29] MEDS: TIMOLOL 0.5% OPHTH DROPS 5 ML BTL LEFT EYE SCH ×3 (10:27→21:11)
[2017-12-29] MEDS: ACYCLOVIR 200 MG CAP PO SCH (10:28)
[2017-12-29] MEDS: SODIUM BICARBONATE TAB 650 MG TAB PO SCH ×3 (10:28→17:28)
[2017-12-29] MEDS: Lenalidomide [Revlimid] 25 MG PO SCH (10:32)
[2017-12-29] MEDS: methylPREDNISolone SOD SUCCI 40 MG/ML 1 ML VIAL IV SCH ×4 (10:37→23:43)
[2017-12-29] MEDS: CALCITRIOL 0.25 MCG CAP PO SCH (11:55)
[2017-12-29] MEDS: FUROSEMIDE 20 MG TAB PO SCH ×2 (11:55→21:12)
[2017-12-29] MEDS: VERAPAMIL 40 MG TAB PO SCH ×3 (11:55→21:12)
[2017-12-29] MEDS: POTASSIUM CHLORIDE ER 20 MEQ TAB.ER PO SCH (12:01)
[2017-12-29] MEDS ORDERED: CLOPIDOGREL 75 MG TAB PO SCH (12:30)
[2017-12-29 13:56] VITALS: BMI 16.2
[2017-12-29] MEDS: SERTRALINE 100 MG TAB PO SCH (14:58)
--- NOTE | 2017-12-29 17:10 | P.CNPUL ---
History of Present Illness Consult date: 12/29/17 Reason for consult: dyspnea, cough, chest pain Chief complaint: Cough, phlegm production, chest congestion, shortness of breath History of present illness: This 67-year-old white female patient of Dr. Villalobos, with underlying history of multiple myeloma, currently on a combination of Revlimid, dexamethasone, and Ninlaro, presented to the emergency department on 12/28/2017 evaluation of worsening shortness of breath, chest pain, palpitations, cough, congestion. She started with an upper respiratory infection last week, which progressed to the above mentioned symptoms. She was seen by treating medical oncologist in the office, and was sent to the emergency room for evaluation of difficulty breathing, and tachycardia. Patient does have history of atrial fibrillation in the past, she has a known history of chronic failure with impaired left ventricular systolic function with ejection fraction of 25-30%, mitral regurgitation, moderate to severe pulmonary hypertension, COPD, CVA/TIA, hypertension, hyperlipidemia, rheumatoid arthritis, chronic renal failure, chronic anemia, chronic pain secondary to multiple myeloma. EGD was completed, showed normal sinus rhythm, without acute ischemic changes. Chest x-ray showed numerous bilateral old healed rib fractures, pulmonary hyperinflation significant with history of COPD. No heart failure. No pulmonary infiltrates. Lab was reviewed, shows WBC of 5.4, hemoglobin 9.2, electrolytes were within normal limits, B1 of 63, creatinine is 3.3. Patient had troponins, 0.049, 2.068 , 0.040, proBNP was 1770. No fever or chills, and 2 L per nasal cannula pulse ox is 98%, and she is in sinus rhythm with a controlled rate. She was started on empiric antibiotics in the form of Zithromax and Rocephin, nebulized bronchodilators, IV steroids, she was given a liter of IV bolus, starting to improve. Review of Systems All systems: negative Constitutional: Denies chills, Denies fever Eyes: denies blurred vision, denies pain Ears, nose, mouth and throat: Denies headache, Denies sore throat Cardiovascular: Denies chest pain, Denies shortness of breath Respiratory: Reports congestion, Reports cough with sputum, Reports dyspnea, Denies cough Gastrointestinal: Denies abdominal pain, Denies diarrhea, Denies nausea, Denies vomiting Genitourinary: Denies dysuria, Denies hematuria Musculoskeletal: Denies myalgias Integumentary: Denies pruritus, Denies rash Neurological: Denies numbness, Denies weakness Psychiatric: Denies anxiety, Denies depression Endocrine: Denies fatigue, Denies weight change Past Medical History Past Medical History: Atrial Fibrillation, Atrial Flutter, Cancer, Heart Failure , COPD, CVA/TIA, Eye Disorder, Hyperlipidemia, Hypertension, Osteoarthritis (OA) , Renal Disease, Rheumatoid Arthritis (RA) Additional Past Medical History / Comment(s): Pt recently admitted 11/09/17 with acute on chronic CHF exacerbation, aflutter/afib with RVR/acute hypoxic respiratory failure/vavluar disease, pulmonary htn. 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 Past Anesthesia/Blood Transfusion Reactions: No Reported Reaction Additional Past Anesthesia/Blood Transfusion Reaction / Comment(s): Pt has received blood in past and last time 10/2017 developed rash and was tx with steroids. Smoking Status: Former smoker - Past Family History Father Family Medical History: Pneumonia, Prostate Disorder Additional Family Medical History / Comment(s): FATHER RECENTLY FROM PNEUMONIA. HE WAS 100 YRS OLD. Mother Family Medical History: Cancer Additional Family Medical History / Comment(s): LUNG CANCER. MOTHER WAS A SMOKER. Medications and Allergies Home Medications Medication Instructions Recorded Confirmed Type Clopidogrel [Plavix] 75 mg PO AC-LUNCH 01/28/17 12/28/17 History Latanoprost Ophth [Xalatan 0.005%] 1 drops BOTH EYES HS 01/28/17 12/28/17 History Sertraline [Zoloft] 200 mg PO AC-LUNCH 01/28/17 12/28/17 History Brimonidine Tartrate [Alphagan P 1 drops BOTH EYES BID 04/05/17 12/28/17 History 0.2% Ophth Soln] Sodium Bicarbonate Tab 650 mg PO BID #60 tab 05/29/17 12/28/17 Rx Timolol 0.5% Ophth Soln [Timoptic 1 drop LEFT EYE BID 08/03/17 12/28/17 History 0.5% Ophth Soln] HYDROcodone/APAP 7.5-325MG [[place] 1 tab PO TID PRN #30 tab 08/05/17 12/28/17 Rx 7.5-325] Budesonide-Formot 160-4.5 Mcg 2 puff INHALATION RT-BID 10/23/17 12/28/17 History [Symbicort 160-4.5 Mcg Inhaler] Calcitriol 0.25 mcg PO DAILY 10/23/17 12/28/17 History Dexamethasone 20 mg PO MO 10/23/17 12/28/17 History Calcium Carbonate [Tums] 1,000 mg PO QID #90 chew 10/27/17 12/28/17 Rx Cholestyramine (with Sugar) 4 gm PO BID@1000,1800 PRN #20 10/27/17 12/28/17 Rx [Questran Packet] packet Ranitidine HCl [Zantac] 150 mg PO BID #30 tab 10/27/17 12/28/17 Rx Potassium Chloride [Klor-Con 20] 20 meq PO DAILY #30 tab 11/14/17 12/28/17 Rx Verapamil [Isoptin] 40 mg PO TID #90 tab 11/14/17 12/28/17 Rx Acyclovir 400 mg PO DAILY 12/28/17 12/28/17 History Furosemide [Lasix] 40 mg PO BID 12/28/17 12/28/17 History Ipratropium-Albuterol Nebulize 3 ml INHALATION RT-TID 12/28/17 12/28/17 History [Duoneb 0.5 mg-3 mg/3 ml Soln] Ixazomib Citrate [Ninlaro] 4 mg PO DIRECTED 12/28/17 12/28/17 History Lenalidomide [Revlimid] 25 mg PO DAILY 12/28/17 12/28/17 History Allergies Allergy/AdvReac Type Severity Reaction Status Date / Time Penicillins Allergy Unknown Unknown Verified 12/28/17 18:01 Cephalosporins Allergy Unknown Verified 12/28/17 18:01 ciprofloxacin HCl Allergy Lip Verified 12/28/17 18:01 [From Cipro] swelling, itching codeine Allergy Unknown Verified 12/28/17 18:01 Sulfa (Sulfonamide Allergy Unknown Verified 12/28/17 18:01 Antibiotics) Physical Exam Vitals: Vital Signs Temp Pulse Pulse Resp BP BP Pulse Ox 12/29/17 15:55 84 12/29/17 15:45 87 18 98 12/29/17 12:32 84 12/29/17 12:23 86 12/29/17 12:00 96.7 F L 72 16 144/74 100 12/29/17 09:03 80 12/29/17 08:53 85 12/29/17 08:00 97.6 F 86 20 125/60 97 12/29/17 06:00 73 126/63 99 12/29/17 05:30 71 126/65 98 12/29/17 05:00 71 127/61 100 12/29/17 04:30 72 128/61 99 12/29/17 04:00 71 121/63 99 12/29/17 03:00 71 18 132/59 12/29/17 02:30 70 16 130/61 100 12/29/17 01:00 75 111/64 100 12/29/17 00:00 80 121/59 99 12/28/17 23:00 85 118/59 99 12/28/17 22:30 89 124/61 99 12/28/17 22:00 87 134/64 98 12/28/17 21:30 89 121/58 98 12/28/17 21:00 88 117/59 98 12/28/17 20:30 87 112/60 98 12/28/17 20:00 84 121/60 100 12/28/17 19:30 86 129/63 12/28/17 19:20 92 12/28/17 19:06 98.1 F 12/28/17 19:00 131/57 12/28/17 18:50 131/57 12/28/17 18:00 92 113/59 12/28/17 17:50 93 113/59 12/28/17 17:05 97.4 F L 139 H 24 116/58 100 Intake and Output 12/29/17 12/29/17 12/29/17 06:59 14:59 22:59 Intake Total 1002 Balance 1002 Intake: Intake, IV Titration 300 Amount Sodium Chloride 0.9% 1, 200 000 ml @ 100 mls/hr IV . Q10H [facility] Rx#:[id number] cefTRIAXone 1,000 mg In 100 Sodium Chloride 0.9% 50 ml @ 100 mls/hr IVPB Q24HR [facility] Rx#:[id number] Oral 702 Other: Weight 43.091 kg GENERAL EXAM: Alert, pleasant 67-year-old white female comfortable in no apparent distress. HEAD: Normocephalic/atraumatic. EYES: Normal reaction of pupils, equal size. Conjunctiva pink, sclera white. NOSE: Clear with pink turbinates. THROAT: No erythema or exudates. NECK: No masses, no JVD, no thyroid enlargement, no adenopathy. CHEST: No chest wall deformity. Symmetrical expansion. LUNGS: Equal air entry with no crackles, wheeze, rhonchi or dullness. CVS: Regular rate and rhythm, normal S1 and S2, no gallops, no murmurs, no rubs ABDOMEN: Soft, nontender. No hepatosplenomegaly, normal bowel sounds, no guarding or rigidity. EXTREMITIES: No clubbing, no edema, no cyanosis, 2+ pulses and upper and lower extremities. MUSCULOSKELETAL: Muscle strength and tone normal. SPINE: No scoliosis or deformity SKIN: No rashes CENTRAL NERVOUS SYSTEM: Alert and oriented -3. No focal deficits, tone is normal in all 4 extremities. PSYCHIATRIC: Alert and oriented -3. Appropriate affect. Intact judgment and insight. - Constitutional General appearance: no acute distress Results - Laboratory Findings CBC and BMP: 12/28/17 17:45 12/28/17 17:45 PT/INR, D-dimer PT 9.8 sec (9.0-12.0) 12/28/17 17:45 INR 1.0 (<1.2) 12/28/17 17:45 Abnormal lab findings: Abnormal Labs 12/28/17 12/28/17 12/28/17 17:45 17:45 17:45 RBC 2.64 L Hgb 9.2 L Hct 27.7 L MCV 104.8 H D Plt Count 76 L D Lymphocytes # 0.9 L BUN 63 H Creatinine 3.33 H CK-MB (CK-2) 2.8 H Troponin I 0.049 H* 12/29/17 12/29/17 00:10 06:03 RBC Hgb Hct MCV Plt Count Lymphocytes # BUN Creatinine CK-MB (CK-2) Troponin I 0.068 H* 0.040 H* - Diagnostic Findings Chest x-ray: report reviewed, image reviewed Additional studies: EKG reviewed Assessment and Plan Plan: Assessment: #1. Acute exacerbation of chronic obstructive pulmonary disease and tracheobronchitis, chest x-ray was negative for any acute process #2. A. fib RVR, currently in sinus rhythm #3. History of multiple myeloma, not in remission, currently on a combination of Revlimid, dexamethasone and Ninlaro #4. Chest pain, chest congestion, dyspnea. EKG was negative for any ischemic changes #5. Mild elevation of troponins #6. Chronic congestive heart failure, with impaired systolic function, with ejection fraction of 25-30% #7. History of severe mitral regurgitation, and moderate pulmonary hypertension #8. Chronic kidney disease #9. Previous history of CVA #10. Hypertension, hyperlipidemia #11. Chronic pain syndrome, related to bony aches secondary to multiple myeloma #12. Chronic anemia, thrombocytopenia due to multiple myeloma Plan: Continue IV steroids, continue current antibiotic coverage, nebulized bronchodilators. X-ray was reviewed, did not show any acute process. No fever or chills. Patient is starting to feel better, breathing easier. Patient remains in sinus rhythm. No chest pain, worsening shortness of breath. The sputum culture. We'll continue to follow I performed a history & physical examination of the patient and discussed their management with my nurse practitioner, Bere Alves. I reviewed the nurse practitioner's note and agree with the documented findings and plan of care. Lung sounds are positive for diminished breath sounds. The findings and the impression was discussed with the patient. I attest to the documentation by the nurse practitioner. Time with Patient: Greater than 30
[2017-12-29] MEDS ORDERED: AZITHROMYCIN 500 MG TAB PO SCH (18:00)
--- NOTE | 2017-12-29 18:34 | PN ---
PROGRESS NOTE DATE OF SERVICE: December 29, 2017. PRESENTLY: Short of breath. INTERVAL HISTORY: The patient presented with acute COPD exacerbation, also had atrial flutter fibrillation in the doctor's office, but reverted back to sinus rhythm. The patient is feeling less congested, less sputum. Breathing is getting better. Did tolerate a diet. Sitting up. REVIEW OF SYSTEMS: Done for constitutional, cardiovascular, GI, pulmonary and relevant findings as above. CURRENT MEDICATIONS: Reviewed that include bronchodilators, IV ceftriaxone, IV Solu-Medrol, p.o. Lasix. PHYSICAL EXAMINATION: VITAL SIGNS: Temperature 96.7, pulse 72, respirations 18, blood pressure 144/74, pulse 100 percent on 2 L. GENERAL APPEARANCE: Sitting up on the bed. Feeling better. EYES: Pupils equal. Conjunctivae pale. HEENT: External appearance of nose and ears normal. Oral cavity normal. NECK: JVD not raised. Mass not palpable. LUNGS: Decreased breath sounds, improved air entry. CARDIOVASCULAR: 1st and 2nd sounds normal. No edema. ABDOMEN: Soft, nontender. Liver and spleen not palpable. PSYCHIATRY: Alert and oriented x3. Mood and affect normal. INVESTIGATIONS: Troponin 0.049, 0.068 and 0.047. ASSESSMENT: 1. Paroxysmal atrial flutter fibrillation with rapid ventricular rate now. Hence patient has remained in sinus rhythm. 2. Troponin leak from uncontrolled atrial flutter/fibrillation. Clinically no evidence of acute coronary syndrome. 3. Acute chronic obstructive pulmonary disease exacerbation in an ex-smoker improving. 4. Chronic congestive heart failure from systolic dysfunction EF 20 to 25%. 5. Moderate tricuspid and severe mitral regurgitation, nonrheumatic. 6. Severe secondary pulmonary hypertension secondary to congestive heart failure and chronic obstructive pulmonary disease. 7. Multiple myeloma currently on chemotherapy. 8. Chronic kidney disease secondary to myeloma stage IV. 9. Essential hypertension. 10.Hyperlipidemia. 11.Bicytopenia secondary to chemotherapy and chronic kidney disease. 12.Hypoalbuminemia from moderate protein-calorie malnutrition. PLAN: Patient is overall doing much better. Cut back on steroids. Continue bronchodilators. Care was discussed with the patient. We will get a cardiology opinion. MMODL / IJN: [id number] /
[2017-12-29] MEDS: INSULIN ASPART 100 UNIT/ML 1 ML 10 ML VIAL SQ SCH (21:19)
[2017-12-29 21:20] LABS: Glucose,Whole Blood 124 mg/dL (75-99)
[2017-12-30 01:13] VITALS: RESP 18
[2017-12-30 06:17] LABS: Glucose,Whole Blood 121 mg/dL (75-99)
[2017-12-30] MEDS: INSULIN ASPART 100 UNIT/ML 1 ML 10 ML VIAL SQ SCH ×3 (06:24→17:30)
--- NOTE | 2017-12-30 08:15 | P.CRDCN ---
History of Present Illness Consult date: 12/30/17 Requesting physician: Derrek Johnson Consult reason: atrial fibrillation Chief complaint: Palpitations History of present illness: This is a pleasant 67-year-old female with known history of COPD, hyperlipidemia, hypertension, chronic renal failure, rheumatoid arthritis, renal disease, multiple myeloma for which the patient has undergone chemotherapy , anemia secondary to prior, history of CVA in the past, history of paroxysmal atrial fibrillation. She was at her oncology appointment yesterday, it was noted that her heart was beating quite fast. An EKG was performed there which revealed atrial fibrillation with rapid ventricular response and for this reason the patient was advised to come to the hospital for further evaluation. According to the patient, she's recently been experiencing cold symptoms, and her sinuses and chest. She states that she did feel her heart racing fast, denies any overt shortness of breath or lightheadedness. Patient has been told to have atrial fibrillation in the past however she is not on anticoagulation. She does take Plavix for prior history of CVA but according to her has never been initiated on anticoagulation in the past. According to the ER documentation, patient was in atrial fibrillation on arrival and converted to sinus while in the ER. The first EKG I have available shows normal sinus rhythm. We will attempt to get rhythm strips or EKG performed there that shows atrial fibrillation. Chest x-ray reveals COPD and clearing of heart failure as compared with last exam. She was in the hospital in November, at which time she had an echocardiogram with Doppler study performed, the ejection fraction at that time 25-30%, severe mitral regurgitation, moderate tricuspid regurg, moderate pulmonary hypertension. The patient's home medications included Revlimid, Ninlaro, albuterol and Symbicort, Isoptin, atenolol, Zoloft, Zantac, potassium, Xalatan eyedrops, Mil[place], Lasix 40 twice a day, Plavix, Questran, Calcitrol, and acyclovir. Blood pressure on arrival here 116/58 with a heart rate of 140, 100% on room air. Blood pressure this morning 140/70 with a heart rate in the 70s, temperature 99.0. White blood cell count 5.4, hemoglobin 9.2, platelet count 76. Sodium 139, potassium 4.2, BUN 63 and creatinine 3.3. Troponins 0.049, 0.068, 0.040. BNP level 1770. At the time of my examination this morning, patient states that she slept well through the night last night, she denies any palpitations this morning, breathing is stable Past Medical History Past Medical History: Atrial Fibrillation, Atrial Flutter, Cancer, Heart Failure , COPD, CVA/TIA, Eye Disorder, Hyperlipidemia, Hypertension, Osteoarthritis (OA) , Renal Disease, Rheumatoid Arthritis (RA) Additional Past Medical History / Comment(s): Pt recently admitted 11/09/17 with acute on chronic CHF exacerbation, aflutter/afib with RVR/acute hypoxic respiratory failure/vavluar disease, pulmonary htn. Other hx: 04/2017 pt diagnosed with multiple myeloma/bone cancer/CRD stage IV d/t myeloma per pt and currently receiving chemotherapy, bicytopenia 2ndary to chemo, low albumin, chronic anemia, 2009 CVA with L leg weakness, cervical cancer with surgery, bilateral glaucoma, L eye macular degeneration, past back and R leg pain but none since lumbar fusion, History of Any Multi-Drug Resistant Organisms: None Reported Past Surgical History: Back Surgery Additional Past Surgical History / Comment(s): LUMBAR FUSION 1.5 YRS AGO, BREAST IMPLANTS IN THE 70'S REMOVED MID 'S, CERVIX REMOVED D/T CANCER. Past Anesthesia/Blood Transfusion Reactions: No Reported Reaction Additional Past Anesthesia/Blood Transfusion Reaction / Comment(s): Pt has received blood in past and last time 10/2017 developed rash and was tx with steroids. Smoking Status: Former smoker - Past Family History Father Family Medical History: Pneumonia, Prostate Disorder Additional Family Medical History / Comment(s): FATHER RECENTLY FROM PNEUMONIA. HE WAS 100 YRS OLD. Mother Family Medical History: Cancer Additional Family Medical History / Comment(s): LUNG CANCER. MOTHER WAS A SMOKER. Medications and Allergies Home Medications Medication Instructions Recorded Confirmed Type Clopidogrel [Plavix] 75 mg PO AC-LUNCH 01/28/17 12/28/17 History Latanoprost Ophth [Xalatan 0.005%] 1 drops BOTH EYES HS 01/28/17 12/28/17 History Sertraline [Zoloft] 200 mg PO AC-LUNCH 01/28/17 12/28/17 History Brimonidine Tartrate [Alphagan P 1 drops BOTH EYES BID 04/05/17 12/28/17 History 0.2% Ophth Soln] Sodium Bicarbonate Tab 650 mg PO BID #60 tab 05/29/17 12/28/17 Rx Timolol 0.5% Ophth Soln [Timoptic 1 drop LEFT EYE BID 08/03/17 12/28/17 History 0.5% Ophth Soln] HYDROcodone/APAP 7.5-325MG [Milford 1 tab PO TID PRN #30 tab 08/05/17 12/28/17 Rx 7.5-325] Budesonide-Formot 160-4.5 Mcg 2 puff INHALATION RT-BID 10/23/17 12/28/17 History [Symbicort 160-4.5 Mcg Inhaler] Calcitriol 0.25 mcg PO DAILY 10/23/17 12/28/17 History Dexamethasone 20 mg PO MO 10/23/17 12/28/17 History Calcium Carbonate [Tums] 1,000 mg PO QID #90 chew 10/27/17 12/28/17 Rx Cholestyramine (with Sugar) 4 gm PO BID@1000,1800 PRN #20 10/27/17 12/28/17 Rx [Questran Packet] packet Ranitidine HCl [Zantac] 150 mg PO BID #30 tab 10/27/17 12/28/17 Rx Potassium Chloride [Klor-Con 20] 20 meq PO DAILY #30 tab 11/14/17 12/28/17 Rx Verapamil [Isoptin] 40 mg PO TID #90 tab 11/14/17 12/28/17 Rx Acyclovir 400 mg PO DAILY 12/28/17 12/28/17 History Furosemide [Lasix] 40 mg PO BID 12/28/17 12/28/17 History Ipratropium-Albuterol Nebulize 3 ml INHALATION RT-TID 12/28/17 12/28/17 History [Duoneb 0.5 mg-3 mg/3 ml Soln] Ixazomib Citrate [Ninlaro] 4 mg PO DIRECTED 12/28/17 12/28/17 History Lenalidomide [Revlimid] 25 mg PO DAILY 12/28/17 12/28/17 History Allergies Allergy/AdvReac Type Severity Reaction Status Date / Time Penicillins Allergy Unknown Unknown Verified 12/28/17 18:01 Cephalosporins Allergy Unknown Verified 12/28/17 18:01 ciprofloxacin HCl Allergy Lip Verified 12/28/17 18:01 [From Cipro] swelling, itching codeine Allergy Unknown Verified 12/28/17 18:01 Sulfa (Sulfonamide Allergy Unknown Verified 12/28/17 18:01 Antibiotics) Physical Exam Vitals: Vital Signs Temp Pulse Pulse Resp BP Pulse Ox 12/30/17 04:00 71 18 141/70 98 12/30/17 00:00 99.0 F 78 18 125/66 100 12/29/17 20:15 97.0 F L 80 17 143/75 98 12/29/17 20:00 97.0 F L 90 17 138/75 95 12/29/17 19:15 88 12/29/17 19:00 90 18 12/29/17 16:00 97.1 F L 90 16 147/65 99 12/29/17 15:55 84 12/29/17 15:45 87 18 98 12/29/17 12:32 84 12/29/17 12:23 86 12/29/17 12:00 96.7 F L 72 16 144/74 100 12/29/17 09:03 80 12/29/17 08:53 85 Intake and Output 12/29/17 12/30/17 12/30/17 22:59 06:59 14:59 Intake Total 540 Output Total 800 Balance 540 -800 Intake: IV 300 Sodium Chloride 0.9% 1, 300 000 ml @ 100 mls/hr IV . Q10H [facility] Rx#:[id number] Oral 240 Output: Urine 800 PHYSICAL EXAMINATION: GENERAL: 67-year-old female in no acute distress at the time of my examination HEENT: Head is atraumatic, normocephalic. Pupils equal, round. Sclera anicteric. Conjunctiva are clear. Mucous membranes of the mouth are moist. Neck is supple. There is no elevated jugular venous pressure. No carotid bruit is heard. HEART EXAMINATION: Heart S1 S2 1 systolic murmur is heard. CHEST EXAMINATION: Lungs reveal some diminished air entry to the bases with fine wheezing throughout. ABDOMEN: Soft, nontender. Bowel sounds are heard. No organomegaly noted. EXTREMITIES: 2+ peripheral pulses with no evidence of peripheral edema and no calf tenderness noted. NEUROLOGIC patient is awake, alert and oriented 3 . . Results 12/28/17 17:45 12/28/17 17:45 Current Medications Generic Name Dose Route Start Last Admin Trade Name Nandoq PRN Reason Stop Dose Admin Hydrocodone Bitart/Acetaminophen 1 each 12/28/17 21:50 Milford 7.5-325 PO TID PRN Pain Acyclovir 400 mg 12/29/17 09:00 12/29/17 10:28 Zovirax PO 400 mg DAILY [facility] Administration Albuterol/Ipratropium 3 ml 12/28/17 21:55 12/29/17 18:57 Duoneb 0.5 Mg-3 Mg/3 Ml Soln INHALATION 3 ml RT-QID [facility] Administration Brimonidine Tartrate 1 drops 12/28/17 22:00 12/29/17 21:10 Alphagan P 0.2% Ophth Soln BOTH EYES 1 drops BID [facility] Administration Budesonide/Formoterol Fumarate 2 puff 12/29/17 08:00 12/29/17 18:58 Symbicort 160-4.5 Mcg Inhaler INHALATION 2 puff RT-BID [facility] Administration Calcitriol 0.25 mcg 12/29/17 09:00 12/29/17 11:55 Rocaltrol PO 0.25 mcg DAILY [facility] Administration Calcium Carbonate/Glycine 1,000 mg 12/28/17 22:00 12/29/17 21:12 Tums PO 1,000 mg QID [facility] Administration Cholestyramine Resin 4 gm 12/28/17 21:50 Questran PO BID@1000,1800 PRN Diarrhea Clopidogrel Bisulfate 75 mg 12/29/17 12:30 12/29/17 14:58 Plavix PO 75 mg AC-LUNCH [facility]IVE Administration Dexamethasone 20 mg 01/01/18 09:00 Hexadrol PO MO OLIVE Famotidine 20 mg 12/30/17 09:00 Pepcid PO DAILY [facility] Furosemide 40 mg 12/29/17 09:00 12/29/17 21:12 Lasix PO 40 mg BID [facility] Administration Guaifenesin 1,200 mg 12/28/17 22:00 12/29/17 21:12 Mucinex PO 1,200 mg Q12HR [facility] Administration Sodium Chloride 1,000 mls @ 100 mls/hr 12/28/17 18:30 12/29/17 21:15 Saline 0.9% IV 100 mls/hr .Q10H [facility] Administration Ceftriaxone Sodium 1,000 mg/ 50 mls @ 100 mls/hr 12/29/17 09:00 12/29/17 10: 36 Sodium Chloride IVPB 100 mls/hr Q24HR [facility] Administration Insulin Aspart 0 unit 12/29/17 21:00 12/30/17 06:24 Novolog SQ Not Given ACHS [facility] Protocol Latanoprost 1 drops 12/28/17 22:00 12/29/17 21:11 Xalatan 0.005% BOTH EYES 1 drops HS [facility] Administration Methylprednisolone Sodium Succinate 40 mg 12/29/17 00:00 12/29/17 23:43 Solu-Medrol IV 40 mg Q8HR [facility] Administration Nitroglycerin 0.4 mg 12/28/17 18:24 Nitrostat SUBLINGUAL Q5M PRN Chest Pain Lenalidomide [ 25 mg 12/29/17 09:00 12/29/17 10:32 Revlimid] 25 Mg PO Not Given DAILY [facility] Potassium Chloride 20 meq 12/29/17 09:00 12/29/17 12:01 K-Dur 20 PO 20 meq DAILY [facility] Administration Sertraline HCl 200 mg 12/29/17 12:30 12/29/17 14:58 Zoloft PO 200 mg AC-LUNCH [facility] Administration Sodium Bicarbonate 650 mg 12/28/17 22:00 12/29/17 17:28 Sodium Bicarbonate Tab PO 650 mg BID [facility] Administration Timolol Maleate 1 drops 12/28/17 22:00 12/29/17 21:11 Timoptic LEFT EYE 1 drops BID [facility] Administration Verapamil HCl 40 mg 12/29/17 09:00 12/29/17 21:12 Isoptin PO 40 mg TID [facility]IVE Administration Intake and Output 12/29/17 12/30/17 12/30/17 22:59 06:59 14:59 Intake Total 540 Output Total 800 Balance 540 -800 Intake: IV 300 Sodium Chloride 0.9% 1, 300 000 ml @ 100 mls/hr IV . Q10H [facility] Rx#:[id number] Oral 240 Output: Urine 800 12/28/17 17:45 12/28/17 17:45 EKG Interpretations (text) Initial EKG shows a normal sinus rhythm with no acute changes. Assessment and Plan Plan: Assessment and plan #1 atrial fibrillation with rapid ventricular response, currently in normal sinus rhythm, paroxysmal. #2 history of prior CVA #3 COPD #4 hyperlipidemia #5 hypertension #6 chronic renal failure #7 rheumatoid arthritis #8 hyperlipidemia and thrombocytopenia in a patient with known history of multiple myeloma and prior chemotherapy #9 history of paroxysmal atrial fibrillation, not on anticoagulation. #10 cardiomyopathy, etiology unknown. Echo performed in November of this year revealed an ejection fraction of 25-30%, severe MR and moderate TR as well as moderate pulmonary hypertension noted at that time. Plan We will repeat an echocardiogram with Doppler study and obtain a TSH level. We' ll discontinue the verapamil as patient has a documented ejection fraction of 25 %. Start the patient on beta vanessa. Patient is not currently on an MLITON inhibitor, likely secondary to renal function. We will also discuss with Dr. Larson regarding whether or not the patient can be initiated on anticoagulation for stroke prevention. Further recommendations to follow. DNP note has been reviewed, I agree with a documented findings and plan of care. Patient was seen and examined.
--- NOTE | 2017-12-30 08:16 | P.PN ---
Progress Note - Text Progress Note Date: 12/30/17 This is an addendum to the cardiology consultation dictated. We were able to obtain an EKG from the emergency room which did verify atrial fibrillation with rapid ventricular response on arrival here, left bundle-branch block pattern, heart rate at that time 130. DNP note has been reviewed, I agree with a documented findings and plan of care. Patient was seen and examined.
[2017-12-30] MEDS: IPRATROPIUM-ALBUTEROL 3 ML NEB INHALATION SCH ×3 (08:20→14:44)
[2017-12-30] MEDS: SYMBICORT 160-4.5 MCG INHALER INHALATION SCH (08:20)
[2017-12-30] MEDS: methylPREDNISolone SOD SUCCI 40 MG/ML 1 ML VIAL IV SCH ×2 (08:22→17:11)
[2017-12-30] MEDS: FUROSEMIDE 20 MG TAB PO SCH (08:23)
[2017-12-30] MEDS: ACYCLOVIR 200 MG CAP PO SCH (08:23)
[2017-12-30] MEDS: CALCITRIOL 0.25 MCG CAP PO SCH (08:23)
[2017-12-30] MEDS: guaiFENesin 600 MG TABLET.ER PO SCH (08:23)
[2017-12-30] MEDS: POTASSIUM CHLORIDE ER 20 MEQ TAB.ER PO SCH (08:24)
[2017-12-30] MEDS: SODIUM BICARBONATE TAB 650 MG TAB PO SCH ×2 (08:24→17:11)
[2017-12-30] MEDS: CALCIUM CARBONATE 500 MG CHEWABLE PO SCH ×3 (08:24→18:27)
[2017-12-30] MEDS: TIMOLOL 0.5% OPHTH DROPS 5 ML BTL LEFT EYE SCH (08:24)
[2017-12-30] MEDS: BRIMONIDINE TARTRATE 0.2% DROPS 5 ML BTL BOTH EYES SCH (08:25)
[2017-12-30] MEDS: Lenalidomide [Revlimid] 25 MG PO SCH (08:38)
[2017-12-30] MEDS ORDERED: FAMOTIDINE 20 MG TAB PO SCH (09:00)
[2017-12-30] MEDS ORDERED: METOPROLOL TARTRATE 25 MG TAB PO SCH (09:00)
[2017-12-30] MEDS ORDERED: APIXABAN 2.5 MG TABLET PO SCH (11:15)
[2017-12-30] MEDS: SODIUM CHLORIDE 0.9% 1,000 ML IV SCH (11:49)
[2017-12-30] MEDS: SERTRALINE 100 MG TAB PO SCH (11:49)
[2017-12-30 12:04] LABS: Glucose,Whole Blood 90 mg/dL (75-99)
[2017-12-30 12:25] VITALS: TEMP 97.3
--- NOTE | 2017-12-30 15:08 | P.PN ---
Subjective Progress Note Date: 12/30/17 This 67-year-old white female patient of Dr. Villalobos, with underlying history of multiple myeloma, currently on a combination of Revlimid, dexamethasone, and Ninlaro, presented to the emergency department on 12/28/2017 evaluation of worsening shortness of breath, chest pain, palpitations, cough, congestion. She started with an upper respiratory infection last week, which progressed to the above mentioned symptoms. She was seen by treating medical oncologist in the office, and was sent to the emergency room for evaluation of difficulty breathing, and tachycardia. Patient does have history of atrial fibrillation in the past, she has a known history of chronic failure with impaired left ventricular systolic function with ejection fraction of 25-30%, mitral regurgitation, moderate to severe pulmonary hypertension, COPD, CVA/TIA, hypertension, hyperlipidemia, rheumatoid arthritis, chronic renal failure, chronic anemia, chronic pain secondary to multiple myeloma. EGD was completed, showed normal sinus rhythm, without acute ischemic changes. Chest x-ray showed numerous bilateral old healed rib fractures, pulmonary hyperinflation significant with history of COPD. No heart failure. No pulmonary infiltrates. Lab was reviewed, shows WBC of 5.4, hemoglobin 9.2, electrolytes were within normal limits, B1 of 63, creatinine is 3.3. Patient had troponins, 0.049, 2.068 , 0.040, proBNP was 1770. No fever or chills, and 2 L per nasal cannula pulse ox is 98%, and she is in sinus rhythm with a controlled rate. She was started on empiric antibiotics in the form of Zithromax and Rocephin, nebulized bronchodilators, IV steroids, she was given a liter of IV bolus, starting to improve. On today's evaluation, the patient is looking well. No specific respiratory difficulties. Her cough and congestion is improved compared to yesterday. No fever chills or night sweats. The patient is on room air. The patient is still on a combination of bronchodilators and systemic steroids and antibiotics. Her cardiac evaluation was also done. She is in current normal sinus rhythm although she has had paroxysmal atrial fibrillation. Echocardiogram was ordered. The patient was seen by cardiology. Note that her previous cardiac evaluation noted today. Other function with ejection fraction of 20%. She did have also troponin leak during this current admission. The patient is taking Mucinex for cough and congestion. She remains on IV Solu- Medrol. Her myeloma is still on the treatment. Antibiotic coverage includes IV Rocephin. Objective - Vital Signs Vital signs: Vital Signs Temp 97.3 F L 12/30/17 12:00 Pulse 92 12/30/17 15:00 Resp 18 12/30/17 12:00 BP 118/64 12/30/17 12:00 Pulse Ox 99 12/30/17 12:00 Intake & Output 12/29/17 12/30/17 12/30/17 18:59 06:59 18:59 Intake Total 5781 670 5946 Output Total 800 400 Balance 1242 -500 680 Weight 43.091 kg Intake: IV 300 Sodium Chloride 0.9% 1, 300 000 ml @ 100 mls/hr IV . Q10H [facility] Rx#:[id number] Intake, IV Titration 300 850 Amount Sodium Chloride 0.9% 1, 200 800 000 ml @ 100 mls/hr IV . Q10H [facility] Rx#:[id number] cefTRIAXone 1,000 mg In 100 50 Sodium Chloride 0.9% 50 ml @ 100 mls/hr IVPB Q24HR [facility] Rx#:[id number] Oral 942 230 Output: Urine 800 400 Other: Voiding Method Bedside Commode - Exam GENERAL EXAM: Alert, pleasant 67-year-old white female comfortable in no apparent distress. HEAD: Normocephalic/atraumatic. EYES: Normal reaction of pupils, equal size. Conjunctiva pink, sclera white. NOSE: Clear with pink turbinates. THROAT: No erythema or exudates. NECK: No masses, no JVD, no thyroid enlargement, no adenopathy. CHEST: No chest wall deformity. Symmetrical expansion. LUNGS: Equal air entry with no crackles, wheeze, rhonchi or dullness. CVS: Regular rate and rhythm, normal S1 and S2, no gallops, no murmurs, no rubs ABDOMEN: Soft, nontender. No hepatosplenomegaly, normal bowel sounds, no guarding or rigidity. EXTREMITIES: No clubbing, no edema, no cyanosis, 2+ pulses and upper and lower extremities. MUSCULOSKELETAL: Muscle strength and tone normal. SPINE: No scoliosis or deformity SKIN: No rashes CENTRAL NERVOUS SYSTEM: Alert and oriented -3. No focal deficits, tone is normal in all 4 extremities. PSYCHIATRIC: Alert and oriented -3. Appropriate affect. Intact judgment and insight. - Labs CBC & Chem 7: 12/28/17 17:45 12/28/17 17:45 Labs: Abnormal Lab Results - Last 24 Hours (Table) 12/29/17 12/30/17 Range/Units 21:19 06:07 POC Glucose (mg/dL) 124 H 121 H (75-99) mg/dL Assessment and Plan Plan: #1. Acute exacerbation of chronic obstructive pulmonary disease and tracheobronchitis, chest x-ray was negative for any acute process, the patient is clinically improving. #2. A. fib RVR, currently in sinus rhythm, the patient on long-term and to coagulation with Eliquis and the rate is controlled for now. Echocardiogram from previous evaluation showed an impaired ejection fraction of 25% and repeat echocardiac Long will be done. There is some minor troponin leak. #3. History of multiple myeloma, not in remission, currently on a combination of Revlimid, dexamethasone and Ninlaro #4. Chest pain, chest congestion, dyspnea. EKG was negative for any ischemic changes #5. Mild elevation of troponins , rule out a component of non-STEMI. #6. Chronic congestive heart failure, with impaired systolic function, with ejection fraction of 25-30% #7. History of severe mitral regurgitation, and moderate pulmonary hypertension #8. Chronic kidney disease #9. Previous history of CVA #10. Hypertension, hyperlipidemia #11. Chronic pain syndrome, related to bony aches secondary to multiple myeloma #12. Chronic anemia, thrombocytopenia due to multiple myeloma Plan Continue IV Rocephin. Continue IV Solu-Medrol. Continue bronchodilators. Mucinex for cough and congestion. Cardiology evaluation. Repeat echocardiac Long. She is currently on room air. Overall feeling better. We'll continue to follow.
[2017-12-30 15:52] VITALS: BP 148/73; PULSE 80
--- NOTE | 2017-12-30 17:06 | ECHOF ---
Referral Reason:afib MEASUREMENTS -------- HEIGHT: 162.6 cm WEIGHT: 43.1 kg BP: RVIDd: 2.7 cm (< 3.3) IVSd: 0.7 cm (0.6 - 1.1) LVIDd: 3.9 cm (3.9 - 5.3) LVPWd: 1.1 cm (0.6 - 1.1) IVSs: 1.5 cm LVIDs: 2.5 cm LVPWs: 1.7 cm LAESV Index (A-L): 39.97 ml/m Ao Diam: 2.7 cm (2.0 - 3.7) AV Cusp: 2.2 cm (1.5 - 2.6) LA Diam: 2.3 cm (2.7 - 3.8) MV EXCURSION: 16.095 mm (> 18.000) MV EF SLOPE: 95 mm/s (70 - 150) EPSS: 0.4 cm MV E Toney: 0.96 m/s MV DecT: 198 ms MV A Toney: 1.16 m/s MV E/A Ratio: 0.83 RAP: 15.00 mmHg RVSP: 33.85 mmHg FINDINGS -------- Sinus rhythm. This was a technically adequate study. The left ventricular size is normal. Left ventricular wall thickness is normal. Overall left vent ricular systolic function is low-normal with, an EF between 50 - 55 %. The right ventricle is normal in size and function. LA is moderately dilated 34-39 ml/m2 The right atrium is normal in size. The aortic valve is trileaflet and appears structurally normal. The mitral valve leaflets are mildly thickened. Jhcvzjsa-ni-xezciy mitral regurgitation is present. Egoe-dz-llhcmmab tricuspid regurgitation present. There is no evidence of pulmonary hypertension. The right ventricular systolic pressure, as measured by Doppler, is 33.85mmHg. There is no pulmonic regurgitation present. The aortic root size is normal. The inferior vena cava is mildly dilated. There is no pericardial effusion. CONCLUSIONS -------- 1. Sinus rhythm. 2. This was a technically adequate study. 3. The left ventricular size is normal. 4. Left ventricular wall thickness is normal. 5. Overall left ventricular systolic function is low-normal with, an EF between 50 - 55 %. 6. LA is moderately dilated 34-39 ml/m2 7. The aortic valve is trileaflet and appears structurally normal. 8. The mitral valve leaflets are mildly thickened. 9. Gnixxrlo-hq-mbexfi mitral regurgitation is present. 10. Zfqx-zk-gplzzzco tricuspid regurgitation present. 11. There is no evidence of pulmonary hypertension. 12. There is no pulmonic regurgitation present. 13. The aortic root size is normal. 14. The inferior vena cava is mildly dilated. 15. There is no pericardial effusion. INTERNAL AUDIT MANAGER: Fariba Cornell RDCS
[2017-12-30 17:16] LABS: Glucose,Whole Blood 83 mg/dL (75-99)
[2017-12-31] MEDS ORDERED: FUROSEMIDE 20 MG TAB PO SCH (09:00)
--- NOTE | 2017-12-31 09:06 | DS ---
DISCHARGE SUMMARY DATE OF ADMISSION: 12/28/2017 DATE OF DISCHARGE: 12/30/2017. FINAL DIAGNOSES: 1. Paroxysmal atrial flutter fibrillation with rapid ventricular rate, back to sinus rhythm. 2. Troponin leak, uncontrolled from atrial flutter fibrillation. No evidence of acute coronary syndrome. 3. Acute chronic obstructive pulmonary disease exacerbation in an ex-smoker POA. 4. Chronic congestive heart failure from systolic dysfunction and diastolic dysfunction. Ejection fraction 50-55 percent. 5. Moderate tricuspid and severe mitral regurgitation, nonrheumatic. 6. Severe secondary pulmonary hypertension secondary to congestive heart failure and chronic obstructive pulmonary disease. 7. Multiple myeloma, currently on chemotherapy. 8. Chronic kidney disease secondary to myeloma stage IV. 9. Essential hypertension. 10.Hyperlipidemia. 11.Bicytopenia secondary to chemotherapy and chronic kidney disease. 12.Hypoalbuminemia from moderate protein-calorie malnutrition. 13.Acute tracheobronchitis. HOSPITAL COURSE: This patient at the [facility] place was rather congested, was found to have COPD exacerbation and A flutter/fibrillation with rapid ventricular rate. By the time she got down to the ER, was about to be started on Cardizem drip, she reverted back to sinus rhythm. The patient also was treated for acute tracheobronchitis. Doing much better by the time of discharge. EXAMINATION: Temp 97.3, pulse 58, respiratory 18, blood pressure 108/64. Pulse ox 99% on room air. Lungs improved air entry. Cardiovascular: 1st and 2nd sounds normal. LABS: White count 5.4, hemoglobin 9.2, platelets 26, potassium 4.2, BUN 63, creatinine 3.33. CONSULTATIONS: With Dr. Del Cid from Pulmonary, Dr. Jackson from Cardiology. Additionally, patient did have a 2-D echocardiogram. Showed moderate to severe mitral regurgitation. EF 50%. DISCHARGE MEDICATIONS: 1. Xalatan 0.005% 1 drop to both eyes q.h.s. 2. Zoloft 100 mg p.o. before lunch. 3. Alphagan 0.2% 1 drop to both eyes b.i.d. 4. Sodium bicarb 650 mg p.o. b.i.d. 5. Timoptic 0.5% 1 drop to left eye b.i.d. 6. Carlton 7.5 one tab p.o. t.i.d. p.r.n. 7. Symbicort 160/4.5, 2 puffs b.i.d. 8. Calcitriol 0.25 mcg p.o. daily. 9. Dexamethasone 20 mg p.o. on Monday. 10.TUMS 1000 mg p.o. q.i.d. 11.Questran 4 grams p.o. b.i.d. 12.Zantac 150 mg p.o. b.i.d. 13.Klor-Con 20 mEq p.o. daily. 14.Acyclovir 400 mg p.o. daily. 15.DuoNeb t.i.d. 16. 4 mg as directed. 17.Revlimid 25 mg p.o. daily. 18.Eliquis 2.5 mg p.o. b.i.d. 19.Ceftin 500 mg p.o. b.i.d. for 3 days. 20.Lasix 40 mg p.o. daily. 21.Lopressor 25 mg p.o. b.i.d. 22.Mucinex 200 mg p.o. q.12. 23.Prednisone rapid taper. FOLLOWUP: With her oncologist in 1 week, follow up with Dr. Jackson in 1 week. Follow up with Dr. Villalobos in 1 week. Discussion and discharge planning more than [address] Villalobos. MMMELISSAL / CHARLINEN: [id number] /
[2018-01-01] MEDS ORDERED: DEXAMETHASONE 4 MG TAB PO SCH (09:00)
== END 2017-12-30 19:07 | disposition home or self-care (01) | DRG 191 ==
LOC: EC 16:57 → 3SCARD 18:24
PROVIDERS: ADMIT Hospitalist; ATTEND Hospitalist
DX: J44.0 Chronic obstructive pulmonary disease with (acute) lower respiratory infection (principal); C90.00 Multiple myeloma not having achieved remission; E44.0 Moderate protein-calorie malnutrition; I13.0 Hypertensive heart and chronic kidney disease with heart failure and stage 1 through stage 4 chronic kidney disease, or unspecified chronic kidney disease; I50.42 Chronic combined systolic (congestive) and diastolic (congestive) heart failure; I69.354 Hemiplegia and hemiparesis following cerebral infarction affecting left non-dominant side; N18.4 Chronic kidney disease, stage 4 (severe); I48.92 Unspecified atrial flutter; I42.9 Cardiomyopathy, unspecified; Z68.1 Body mass index [BMI] 19.9 or less, adult; I48.0 Paroxysmal atrial fibrillation; J44.1 Chronic obstructive pulmonary disease with (acute) exacerbation; D64.9 Anemia, unspecified; D69.59 Other secondary thrombocytopenia; E78.5 Hyperlipidemia, unspecified; G89.3 Neoplasm related pain (acute) (chronic); G89.4 Chronic pain syndrome; H35.30 Unspecified macular degeneration; H40.9 Unspecified glaucoma; I08.1 Rheumatic disorders of both mitral and tricuspid valves; I27.29 Other secondary pulmonary hypertension; J20.9 Acute bronchitis, unspecified; M06.9 Rheumatoid arthritis, unspecified; T45.1X5A Adverse effect of antineoplastic and immunosuppressive drugs, initial encounter; Z79.51 Long term (current) use of inhaled steroids; Z80.1 Family history of malignant neoplasm of trachea, bronchus and lung; Z85.41 Personal history of malignant neoplasm of cervix uteri; Z87.891 Personal history of nicotine dependence; Z98.82 Breast implant status; Z79.02 Long term (current) use of antithrombotics/antiplatelets; Z79.899 Other long term (current) drug therapy; Z88.1 Allergy status to other antibiotic agents; Z88.5 Allergy status to narcotic agent; Z88.0 Allergy status to penicillin; Z88.2 Allergy status to sulfonamides; Z85.830 Personal history of malignant neoplasm of bone; Z98.1 Arthrodesis status
CPT/HCPCS: 36415; 71046; 80053; 80061; 82550; 82553; 83735; 83880; 84100; 84443; 84484; 85025; 85610; 85730; 93005; 93306; 94640; 94760; 96361; 96365; 96367; 96375; 99285

== ENCOUNTER → 2018-03-01 | Outpatient (CLI) | payer MEDICARE ==
--- NOTE | 2018-03-01 15:47 | CT ---
EXAMINATION TYPE: CT brain wo con DATE OF EXAM: 03/01/2018 COMPARISON: Prior MR brain 11/17/2009 HISTORY: Multiple myeloma CT DLP: 1082 mGycm Automated exposure control for dose reduction was used. Helical imaging through the brain. FINDINGS: White matter low-attenuation is extensive. No hemorrhage or hydrocephalus. Cortical atrophy is noted. Lacunar infarct right thalamus not significantly changed. Calvarium shows some scattered subcentimet er lucencies. Cerebral vascular calcifications are present. Orbits show symmetric appearance. IMPRESSION: WHITE MATTER DEMYELINATION CHANGES ARE AGAIN NOTED AND MAY BE DUE TO CHRONIC SMALL VESSEL ISCHEMIA. F INDINGS IN THE CALVARIUM MAY BE DUE TO PATIENT'S KNOWN MULTIPLE MYELOMA.
== END | disposition home or self-care (01) ==
LOC: RADCTMAIN 14:01
PROVIDERS: ATTEND Internal Medicine Hematology & Oncology
DX: G37.8 Other specified demyelinating diseases of central nervous system (principal); C90.00 Multiple myeloma not having achieved remission; Z88.1 Allergy status to other antibiotic agents; Z88.2 Allergy status to sulfonamides; Z88.5 Allergy status to narcotic agent; Z88.8 Allergy status to other drugs, medicaments and biological substances
CPT/HCPCS: 70450

== ENCOUNTER → 2018-03-27 | Outpatient (CLI) | payer MEDICARE ==
--- NOTE | 2018-03-27 16:58 | ECHOF ---
Referral Reason:C90.00 MEASUREMENTS -------- HEIGHT: 162.6 cm WEIGHT: 45.4 kg BP: IVSd: 1.0 cm (0.6 - 1.1) LVIDd: 4.8 cm (3.9 - 5.3) LVPWd: 0.9 cm (0.6 - 1.1) IVSs: 1.3 cm LVIDs: 3.1 cm LVPWs: 1.3 cm LA Diam: 3.4 cm (2.7 - 3.8) RVIDd: 2.7 cm (< 3.3) LAESV Index (A-L): 34.78 ml/m Ao Diam: 2.8 cm (2.0 - 3.7) LA Diam: 3.2 cm (2.7 - 3.8) AV Cusp: 1.9 cm (1.5 - 2.6) EPSS: 0.5 cm MV E Toney: 0.67 m/s MV DecT: 332 ms MV A Toney: 0.95 m/s MV E/A Ratio: 0.70 RAP: 5.00 mmHg RVSP: 18.27 mmHg MV EF SLOPE: 98.74 mm/s (70 - 150) MV EXCURSION: 1.94 cm (> 18.000) FINDINGS -------- Sinus rhythm. This was a technically adequate study. The left ventricular size is normal. Left ventricular wall thickness is normal. Overall left vent ricular systolic function is normal with, an EF between 55 - 60 %. The right ventricle is normal in size and function. LA is moderately dilated 34-39 ml/m2 The right atrium is normal in size. Aortic valve is trileaflet and is mildly thickened. There is no evidence of aortic regurgitation. There is no evidence of aortic stenosis. The mitral valve leaflets are mildly thickened. Mild mitral annular calcification present. There is trace to mild mitral regurgitation. Trace tricuspid regurgitation present. Right ventricular systolic pressure is normal at < 35 mmHg. There is no evidence of pulmonary hypertension. Trace/mild (physiologic) pulmonic regurgitation. The aortic root size is normal. Normal inferior vena cava with normal inspiratory collapse consistent with estimated right atrial pre ssure of 5 mmHg. There is no pericardial effusion. CONCLUSIONS -------- 1. Sinus rhythm. 2. This was a technically adequate study. 3. The left ventricular size is normal. 4. Left ventricular wall thickness is normal. 5. Overall left ventricular systolic function is normal with, an EF between 55 - 60 %. 6. LA is moderately dilated 34-39 ml/m2 7. Aortic valve is trileaflet and is mildly thickened. 8. The mitral valve leaflets are mildly thickened. 9. Mild mitral annular calcification present. 10. There is trace to mild mitral regurgitation. 11. Trace tricuspid regurgitation present. 12. Right ventricular systolic pressure is normal at < 35 mmHg. 13. There is no evidence of pulmonary hypertension. 14. Trace/mild (physiologic) pulmonic regurgitation. 15. The aortic root size is normal. 16. There is no pericardial effusion. BUILDING APPRAISER: Monica Sorenson RDCS
== END | disposition home or self-care (01) ==
LOC: RADECHMAIN 11:03
PROVIDERS: ATTEND Internal Medicine Hematology & Oncology
DX: Z01.818 Encounter for other preprocedural examination (principal); J44.9 Chronic obstructive pulmonary disease, unspecified; I08.3 Combined rheumatic disorders of mitral, aortic and tricuspid valves; C90.00 Multiple myeloma not having achieved remission
CPT/HCPCS: 93306; 94060; 94726; 94729

== ENCOUNTER 2018-08-15 15:32 | Inpatient (IN) | payer MEDICARE ==
[2018-08-15] MEDS ORDERED: IBUPROFEN IV 600 MG in SODIUM CHLORIDE 0.9% 250 ML IV STA (15:53)
[2018-08-15] MEDS ORDERED: ACETAMINOPHEN TAB 500 MG TAB PO STA (15:53)
[2018-08-15] MEDS ORDERED: IPRATROPIUM-ALBUTEROL 3 ML NEB INHALATION STA (16:05)
[2018-08-15 16:34] LABS: Basophils % (A) 0 %; Eosinophils # (A) 0.5 k/uL (0-0.7); Eosinophils % (A) 14 %; HCT 29.1 % (34.0-46.0); HGB 9.8 gm/dL (11.4-16.0); Lymphocytes # (A) 0.5 k/uL (1.0-4.8); Lymphocytes % (A) 17 %; MCH 31.7 pg (25.0-35.0); MCHC 33.5 g/dL (31.0-37.0); MCV 94.6 fL (80.0-100.0); Mean Platelet Volume 10.2; Monocytes # (A) 0.2 k/uL (0-1.0); Monocytes % (A) 6 %; Neutrophils # (A) 1.9 k/uL (1.3-7.7); Neutrophils % (A) 59 %; RBC 3.08 m/uL (3.80-5.40); RDW 15.4 % (11.5-15.5); WBC 3.1 k/uL (3.8-10.6)
[2018-08-15 16:40] LABS: Partial Thromboplastin Time 27.9 sec (22.0-30.0); Prothrombin Time 10.4 sec (9.0-12.0)
[2018-08-15 16:44] LABS: Albumin 4.1 g/dL (3.5-5.0); Calcium 8.3 mg/dL (8.4-10.2); Potassium 4.5 mmol/L (3.5-5.1); Total Bilirubin 0.5 mg/dL (0.2-1.3); Total Protein 6.6 g/dL (6.3-8.2)
[2018-08-15] MEDS: SODIUM CHLORIDE 0.9% 500 ML 500 ML IV SCH ×3 (16:44→17:55)
--- NOTE | 2018-08-15 16:44 | ED ---
SOB HPI - General Chief Complaint: Shortness of Breath Stated Complaint: SOB Time Seen by Provider: 08/15/18 15:46 Source: EMS, RN notes reviewed, old records reviewed Mode of arrival: EMS Limitations: no limitations - History of Present Illness Initial Comments: Patient is 67-year-old female who presents emergency Department today with complaints of increased cough, shortness of breath fevers and general illness. Patient reports that her symptoms have been progressive over the past 2 days. She has history of COPD, kidney disease as well as multiple myeloma. She follows with Dr. Dang, Dr. De Jesus, and Dr. Larson. Patient reports that she does not wear oxygen at home. Patient denies any recent chest pain, back pain, abdominal pain, nausea vomiting, numbness or tingling, dysuria or hematuria, constipation or diarrhea, headaches or visual changes, or any other current symptoms - Related Data Home Medications Medication Instructions Recorded Confirmed Sertraline [Zoloft] 200 mg PO AC-LUNCH 01/28/17 08/15/18 Calcitriol 0.25 mcg PO DAILY 10/23/17 08/15/18 Acyclovir 400 mg PO DAILY 12/28/17 08/15/18 Calcium Carb-Vit D 500Mg-200Un 1 tab PO BID 08/15/18 08/15/18 [Oscal 500+D] Fluticasone/Vilanterol [Breo 1 inhalation INHALATION RT-BID 08/15/18 08/15/18 Ellipta 200-25 Mcg INH] Lenalidomide [Revlimid] 10 mg PO DAILY 08/15/18 08/15/18 Metoprolol Tartrate [Lopressor] 12.5 mg PO BID 08/15/18 08/15/18 Sodium Bicarbonate Tab 650 mg PO TID 08/15/18 08/15/18 guaiFENesin [Mucinex] 1,200 mg PO DAILY 08/15/18 08/15/18 Previous Rx's Medication Instructions Recorded Potassium Chloride [Klor-Con 20] 20 meq PO DAILY #30 tab 11/14/17 Apixaban [Eliquis] 2.5 mg PO BID tablet 12/30/17 Allergies Allergy/AdvReac Type Severity Reaction Status Date / Time Penicillins Allergy Unknown Unknown Verified 08/15/18 16:54 Cephalosporins Allergy Unknown Verified 08/15/18 16:54 ciprofloxacin HCl Allergy Lip Verified 08/15/18 16:54 [From Cipro] swelling, itching codeine Allergy Unknown Verified 08/15/18 16:54 Sulfa (Sulfonamide Allergy Unknown Verified 08/15/18 16:54 Antibiotics) Review of Systems ROS Statement: Those systems with pertinent positive or pertinent negative responses have been documented in the HPI. ROS Other: All systems not noted in ROS Statement are negative. Past Medical History Past Medical History: Atrial Fibrillation, Atrial Flutter, Cancer, Heart Failure, COPD, CVA/TIA, Eye Disorder, Hyperlipidemia, Hypertension, Osteoarthritis (OA), Renal Disease, Rheumatoid Arthritis (RA) Additional Past Medical History / Comment(s): Pt recently admitted 11/09/17 with acute on chronic CHF exacerbation, aflutter/afib with RVR/acute hypoxic respiratory failure/vavluar disease, pulmonary htn. 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 Past Anesthesia/Blood Transfusion Reactions: No Reported Reaction Additional Past Anesthesia/Blood Transfusion Reaction / Comment(s): Pt has received blood in past and last time 10/2017 developed rash and was tx with steroids. Smoking Status: Former smoker - Past Family History Father Family Medical History: Pneumonia, Prostate Disorder Additional Family Medical History / Comment(s): FATHER RECENTLY FROM PNEUMONIA. HE WAS 100 YRS OLD. Mother Family Medical History: Cancer Additional Family Medical History / Comment(s): LUNG CANCER. MOTHER WAS A SM OKER. General Exam - General Exam Comments Initial Comments: 67-year-old female. Alert and oriented. Limitations: no limitations General appearance: alert, in no apparent distress Head exam: Present: atraumatic, normocephalic, normal inspection Eye exam: Present: normal appearance, PERRL, EOMI. Absent: scleral icterus, conjunctival injection, periorbital swelling ENT exam: Present: normal exam, mucous membranes moist Neck exam: Present: normal inspection. Absent: tenderness, meningismus, lymphadenopathy Respiratory exam: Present: wheezes, decreased breath sounds. Absent: normal lung sounds bilaterally, respiratory distress, rales, rhonchi, stridor Cardiovascular Exam: Present: normal rhythm, tachycardia, normal heart sounds. Absent: regular rate, systolic murmur, diastolic murmur, rubs, gallop, clicks GI/Abdominal exam: Present: soft, normal bowel sounds. Absent: distended, tenderness, guarding, rebound, rigid Extremities exam: Present: normal inspection, full ROM, normal capillary refill. Absent: tenderness, pedal edema, joint swelling, calf tenderness Back exam: Present: normal inspection Neurological exam: Present: alert, oriented X3, CN II-XII intact Psychiatric exam: Present: normal affect, normal mood Skin exam: Present: warm, dry, intact, normal color. Absent: rash Course Vital Signs 08/15/18 08/15/18 08/15/18 15:32 16:48 17:02 Temperature 98.6 F Pulse Rate 120 H 87 88 Respiratory 16 18 Rate Blood Pressure 125/72 134/82 O2 Sat by Pulse 94 L 96 Oximetry 08/15/18 08/15/18 08/15/18 17:11 17:19 17:59 Temperature Pulse Rate 92 116 H Respiratory 20 24 Rate Blood Pressure 117/56 O2 Sat by Pulse 93 L Oximetry Medical Decision Making - Medical Decision Making Patient is a 67-year-old male presents to the emergency room today with worsening shortness breath opacities Patient has history multiple myeloma, and kidney disease. She also told that she had a recent urinary tract infection by Dr. De Jesus. She has not started antibiotics at this time. Discharged emergency department tech tachycardic, with diffuse wheezing, and rhonchus lung sounds over her left lower lung field. Patient was started on IV fluids, given 2 L bolus and Motrin and Tylenol. Patient's labwork was reviewed. Patient is a low white blood cell count 3.1. Hemoglobin 9.8. Platelets are low as well. All these laboratory seen to be chronic. Patient's troponin test was negative. Lactic acid was normal. Patient does have elevated creatinine today of 3.3. This is increased from her last lab values December. Patient lung sounds did improve after receiving a double DuoNeb treatment and IV steroids. Patient's case discussed with Dr. Thompson who discussed case with Dr. Olsen. Patient will be admitted at this time for COPD exacerbation,UTI. Concerns for COPD exacerbation, as well as UTI C Patient was started on Levaquin. She reports that she has an ALLERGY to ciprofloxacin but has taken Levaquin in the past without any difficulties. - Lab Data Result diagrams: 08/15/18 16:17 08/15/18 16:17 Lab Results 08/15/18 08/15/18 08/15/18 Range/Units 16:17 16:17 16:17 WBC 3.1 L (3.8-10.6) k/uL RBC 3.08 L (3.80-5.40) m/uL Hgb 9.8 L (11.4-16.0) gm/dL Hct 29.1 L (34.0-46.0) % MCV 94.6 (80.0-100.0) fL MCH 31.7 (25.0-35.0) pg MCHC 33.5 (31.0-37.0) g/dL RDW 15.4 (11.5-15.5) % Plt Count 44 L (150-450) k/uL Neutrophils % 59 % Lymphocytes % 17 % Monocytes % 6 % Eosinophils % 14 % Basophils % 0 % Neutrophils # 1.9 (1.3-7.7) k/uL Lymphocytes # 0.5 L (1.0-4.8) k/uL Monocytes # 0.2 (0-1.0) k/uL Eosinophils # 0.5 (0-0.7) k/uL Basophils # 0.0 (0-0.2) k/uL Manual Slide Review Performed PT (9.0-12.0) sec INR (<1.2) APTT (22.0-30.0) sec Sodium 142 (137-145) mmol/L Potassium 4.5 (3.5-5.1) mmol/L Chloride 114 H (98-107) mmol/L Carbon Dioxide 19 L (22-30) mmol/L Anion Gap 9 mmol/L BUN 49 H (7-17) mg/dL Creatinine 3.34 H (0.52-1.04) mg/dL Est GFR (CKD-EPI)AfAm 16 (>60 ml/min/1.73 sqM) Est GFR (CKD-EPI)NonAf 14 (>60 ml/min/1.73 sqM) Glucose 125 H (74-99) mg/dL Plasma Lactic Acid Afshin 1.2 (0.7-2.0) mmol/L Calcium 8.3 L (8.4-10.2) mg/dL Total Bilirubin 0.5 (0.2-1.3) mg/dL AST 14 (14-36) U/L ALT 12 (9-52) U/L Alkaline Phosphatase 70 (38-126) U/L Total Protein 6.6 (6.3-8.2) g/dL Albumin 4.1 (3.5-5.0) g/dL Influenza Type A RNA (Not Detectd) Influenza Type B (PCR) (Not Detectd) 08/15/18 08/15/18 Range/Units 16:17 16:20 WBC (3.8-10.6) k/uL RBC (3.80-5.40) m/uL Hgb (11.4-16.0) gm/dL Hct (34.0-46.0) % MCV (80.0-100.0) fL MCH (25.0-35.0) pg MCHC (31.0-37.0) g/dL RDW (11.5-15.5) % Plt Count (150-450) k/uL Neutrophils % % Lymphocytes % % Monocytes % % Eosinophils % % Basophils % % Neutrophils # (1.3-7.7) k/uL Lymphocytes # (1.0-4.8) k/uL Monocytes # (0-1.0) k/uL Eosinophils # (0-0.7) k/uL Basophils # (0-0.2) k/uL Manual Slide Review PT 10.4 (9.0-12.0) sec INR 1.0 (<1.2) APTT 27.9 (22.0-30.0) sec Sodium (137-145) mmol/L Potassium (3.5-5.1) mmol/L Chloride (98-107) mmol/L Carbon Dioxide (22-30) mmol/L Anion Gap mmol/L BUN (7-17) mg/dL Creatinine (0.52-1.04) mg/dL Est GFR (CKD-EPI)AfAm (>60 ml/min/1.73 sqM) Est GFR (CKD-EPI)NonAf (>60 ml/min/1.73 sqM) Glucose (74-99) mg/dL Plasma Lactic Acid Afshin (0.7-2.0) mmol/L Calcium (8.4-10.2) mg/dL Total Bilirubin (0.2-1.3) mg/dL AST (14-36) U/L ALT (9-52) U/L Alkaline Phosphatase (38-126) U/L Total Protein (6.3-8.2) g/dL Albumin (3.5-5.0) g/dL Influenza Type A RNA Not Detected (Not Detectd) Influenza Type B (PCR) Not Detected (Not Detectd) 08/15/18 16:52 EKG shows normal sinus rhythm with sinus arrhythmia, multiple voltage criteria for all region may be normal. Nonspecific ST abnormality. Ventricular rate of 87 bpm. Was 166 most seconds. QRS duration is 80 ms. QT QTc is 364/438 ms. - Radiology Data Radiology results: report reviewed No acute process, left lower lobe opacities such as possibility of early developing bronchopneumonia. Disposition Clinical Impression: ARF (acute renal failure), COPD exacerbation, Anemia, Pneumonia Disposition: ADMITTED IP TO THIS HOSP Condition: Stable Is patient prescribed a controlled substance at d/c from ED?: No Referrals: Kirby Villalobos DO [Primary Care Provider] - 1-2 days Time of Disposition: 18:14
[2018-08-15 17:06] LABS: Platelet Count 44 k/uL (150-450)
[2018-08-15] MEDS ORDERED: LEVOFLOXACIN 750MG-D5W PMX 750 MG in DEXTROSE/WATER 1 150ML.BAG IVPB STA (18:08)
--- NOTE | 2018-08-15 18:17 | XR ---
EXAMINATION: XR chest 2V DATE AND TIME: 08/15/2018 5:33 PM CLINICAL INDICATION: PHH; Fever TECHNIQUE: Departmental protocol COMPARISON: 12/28/2017 FINDINGS: The lungs are predominantly clear as seen. However, there may be a small area of developing opacity i n the left lower lobe. The pleural spaces are negative. The cardiac silhouette is not enlarged. The remainder of the mediastinal silhouette is unremarkable. No acute soft tissue findings are evident. Skeletal structures: No definite acute findings. The patient carries a diagnosis of multiple myeloma. The previously seen hypersclerotic foci are redemonstrated, with one new area being the posterior la teral left eighth rib.. IMPRESSION: No definite acute process, but left lower lobe opacity suggests the possibility of early developing b ronchopneumonia.
[2018-08-15 19:44] LABS: Appearance,Urine Cloudy (Clear); Bacteria,Urine Moderate /hpf; Bilirubin,Urine Negative (Negative); Blood,Urine Small (Negative); Color,Urine Light Yellow; Glucose,Urine (UA) Negative (Negative); Ketones,Urine Negative (Negative); Leukocyte Esterase,Urine Moderate (Negative); Mucus,Urine Rare /hpf; Nitrite,Urine Positive (Negative); PH, Urine 5.5 (5.0-8.0); Protein,Urine 1+ (Negative); RBC,Urine 5 /hpf (0-5); Specific Gravity,Urine 1.011 (1.001-1.035); Squamous Epithelial Cell,Urine 1 /hpf (0-4); Urobilinogen,Urine <2.0 mg/dL (<2.0); WBC,Urine 89 /hpf (0-5)
[2018-08-15] MEDS: guaiFENesin 600 MG TABLET.ER PO SCH (22:24)
[2018-08-15] MEDS: methylPREDNISolone SOD SUCCI 125 MG/2 ML VIAL IV SCH (23:33)
[2018-08-15] MEDS: METOPROLOL TARTRATE 12.5 MG TAB PO SCH (23:34)
[2018-08-15] MEDS: APIXABAN 2.5 MG TABLET PO SCH (23:34)
[2018-08-16] MEDS: IPRATROPIUM-ALBUTEROL 3 ML NEB INHALATION PRN ×4 (00:58→15:57)
[2018-08-16] MEDS: BENZONATATE 100 MG CAP PO SCH ×4 (02:17→21:35)
[2018-08-16] MEDS: methylPREDNISolone SOD SUCCI 125 MG/2 ML VIAL IV SCH ×4 (06:16→23:54)
[2018-08-16] MEDS: guaiFENesin 600 MG TABLET.ER PO SCH ×2 (08:09→20:54)
[2018-08-16] MEDS: METOPROLOL TARTRATE 12.5 MG TAB PO SCH ×2 (08:09→20:55)
[2018-08-16] MEDS: APIXABAN 2.5 MG TABLET PO SCH (08:09)
--- NOTE | 2018-08-16 12:46 | P.HPIM ---
History of Present Illness This is a pleasant 67 years old female with past medical history of multiple myeloma on combination of Revlimid and dexamethasone and ninlaro, COPD, A. fib RVR, chronic congestive heart failure with ejection fraction 25-30%, chronic kidney disease stage III, previous history of CVA, hypertension, hyperlipidemia, chronic pain syndrome secondary to multiple myeloma, chronic anemia and thrombocytopenia. This time patient Presents with dyspnea of 2 days of duration, patient had common called about one week ago. She has some wet cough but she is unable to bring phlegm up. She denies chest pain or abdominal pain however she has loose bowel movement about 3-4 times per day which is watery. She vomited a couple days ago but not anymore. And she has some burning in her urine suspicious for urinary tract infection. Patient Vitas looks stable, she is saturating 98% on 2 L. She's been afebrile. WBC 3.1, hemoglobin 9.8. Platelets 44. Creatinine 3.34, it was 3.33 on 12/2017. EKG showing normal sinus rhythm at [address]-T abnormality. Chest x-ray: Possible early left lower lobe pneumonia. Urinalysis is suggestive to infection too. Urine culture is pending. In the emergency room patient was given ibuprofen, Tylenol and Levaquin Also she is on Eliquis 2.5 mg, hold that in view of her low platelets at 44 Review of Systems CONSTITUTIONAL: No fever, no malaise, no fatigue. HEENT: No recent visual problems or hearing problems. Denied any sore throat. CARDIOVASCULAR: No orthopnea, PND, no palpitations, no syncope. PULMONARY: No shortness of breath, no cough, no hemoptysis. GASTROINTESTINAL: No diarrhea, no nausea, no vomiting, no abdominal pain. Normoactive bowel sounds. NEUROLOGICAL: No headaches, no weakness, no numbness. HEMATOLOGICAL: Denies any bleeding or petechiae. GENITOURINARY: Denies any burning micturition, frequency, or urgency. MUSCULOSKELETAL/RHEUMATOLOGICAL: Denies any joint pain, swelling, or any muscle pain. ENDOCRINE: Denies any polyuria or polydipsia. Past Medical History Past Medical History: Atrial Fibrillation, Atrial Flutter, Cancer, Heart Failure, COPD, CVA/TIA, Eye Disorder, Hyperlipidemia, Hypertension, Osteoarthritis (OA), Renal Disease, Rheumatoid Arthritis (RA) Additional Past Medical History / Comment(s): Pt admitted 11/09/17 with acute on chronic CHF exacerbation, aflutter/afib with RVR/acute hypoxic respiratory failure/vavluar disease, pulmonary htn. Other hx: 04/2017 pt diagnosed with multiple myeloma/bone cancer/CRD stage IV d/t myeloma per pt and currently receiving chemotherapy, bicytopenia 2ndary to chemo, low albumin, chronic anem ia, 2010 CVA with L leg weakness, cervical cancer with surgery, bilateral glaucoma, L eye macular degeneration, past back and R leg pain but none since lumbar fusion, History of Any Multi-Drug Resistant Organisms: None Reported Past Surgical History: Back Surgery Additional Past Surgical History / Comment(s): LUMBAR FUSION 1.5 YRS AGO, BREAST IMPLANTS IN THE 'S REMOVED MID S, CERVIX REMOVED D/T CANCER. Past Anesthesia/Blood Transfusion Reactions: No Reported Reaction Additional Past Anesthesia/Blood Transfusion Reaction / Comment(s): Pt has received blood in past and last time 10/2017 developed rash and was tx with steroids. Past Psychological History: No Psychological Hx Reported Additional Psychological History / Comment(s): Pt resides with her spouse. She ambulates with a cane. She no longer drives, since her cancer diagnosis. She gets to appts by family, friends or takes a cab. Smoking Status: Former smoker Past Alcohol Use History: None Reported Additional Past Alcohol Use History / Comment(s): started smoking at age 19 smo ked just under 1 ppd. quit 2014 Past Drug Use History: None Reported - Past Family History Father Family Medical History: Pneumonia, Prostate Disorder Additional Family Medical History / Comment(s): FATHER RECENTLY FROM PNEUMONIA. HE WAS 100 YRS OLD. Mother Family Medical History: Cancer Additional Family Medical History / Comment(s): LUNG CANCER. MOTHER WAS A SMOKER. Medications and Allergies Home Medications Medication Instructions Recorded Confirmed Type Sertraline [Zoloft] 200 mg PO AC-LUNCH 01/28/17 08/15/18 History Calcitriol 0.25 mcg PO DAILY 10/23/17 08/15/18 History Potassium Chloride [Klor-Con 20] 20 meq PO DAILY #30 tab 11/14/17 08/15/18 Rx Acyclovir 400 mg PO DAILY 12/28/17 08/15/18 History Apixaban [Eliquis] 2.5 mg PO BID tablet 12/30/17 08/15/18 Rx Calcium Carb-Vit D 500Mg-200Un 1 tab PO BID 08/15/18 08/15/18 History [Oscal 500+D] Fluticasone/Vilanterol [Breo 1 inhalation INHALATION RT-BID 08/15/18 08/15/18 History Ellipta 200-25 Mcg INH] Lenalidomide [Revlimid] 10 mg PO DAILY 08/15/18 08/15/18 History Metoprolol Tartrate [Lopressor] 12.5 mg PO BID 08/15/18 08/15/18 History Sodium Bicarbonate Tab 650 mg PO TID 08/15/18 08/15/18 History guaiFENesin [Mucinex] 1,200 mg PO DAILY 08/15/18 08/15/18 History Allergies Allergy/AdvReac Type Severity Reaction Status Date / Time Penicillins Allergy Unknown Unknown Verified 08/15/18 16:54 Cephalosporins Allergy Unknown Verified 08/15/18 16:54 ciprofloxacin HCl Allergy Lip Verified 08/15/18 16:54 [From Cipro] swelling, itching codeine Allergy Unknown Verified 08/15/18 16:54 Sulfa (Sulfonamide Allergy Unknown Verified 08/15/18 16:54 Antibiotics) Physical Exam Vitals: Vital Signs Temp Pulse Pulse Resp BP BP Pulse Ox 08/16/18 11:31 90 08/16/18 11:21 88 08/16/18 07:07 86 08/16/18 06:57 84 08/16/18 05:38 97.5 F L 69 24 120/66 98 08/16/18 01:10 85 08/16/18 01:01 85 08/15/18 21:00 97.4 F L 80 20 116/64 98 08/15/18 20:43 97.9 F 86 16 116/52 98 08/15/18 20:07 97.8 F 82 16 116/59 98 08/15/18 19:33 97.8 F 83 18 116/60 97 08/15/18 18:44 88 16 118/59 96 08/15/18 17:59 116 H 24 117/56 93 L 08/15/18 17:19 92 08/15/18 17:11 20 08/15/18 17:02 88 08/15/18 16:48 87 18 134/82 96 08/15/18 15:32 98.6 F 120 H 16 125/72 94 L Intake and Output 08/15/18 08/16/18 08/16/18 22:59 06:59 14:59 Intake Total 240 590 Balance 240 590 Intake: Oral 240 590 Other: Voiding Method Toilet Toilet Bedside Commode Bedside Commode # Voids 1 Weight 39.463 kg 39.463 kg GENERAL: The patient is alert and oriented x3, not in any acute distress. Cachectic HEENT: Pupils are round and equally reacting to light. EOMI. No scleral icterus. No conjunctival pallor. Normocephalic, atraumatic. No pharyngeal erythema. No thyromegaly. CARDIOVASCULAR: S1 and S2 present. No murmurs, rubs, or gallops. -PULMONARY: Chest is clear to auscultation, mild wheezing, Tachypneic. No crepitation ABDOMEN: Soft, nontender, nondistended, normoactive bowel sounds. No palpable organomegaly. MUSCULOSKELETAL: No joint swelling or deformity. EXTREMITIES: No cyanosis, clubbing, or pedal edema. NEUROLOGICAL: Gross neurological examination did not reveal any focal deficits. SKIN: No rashes. Results CBC & Chem 7: 08/15/18 16:17 08/15/18 16:17 Labs: Abnormal Lab Results - Last 24 Hours (Table) 08/15/18 08/15/18 08/15/18 Range/Units 16:17 16:17 19:30 WBC 3.1 L (3.8-10.6) k/uL RBC 3.08 L (3.80-5.40) m/uL Hgb 9.8 L (11.4-16.0) gm/dL Hct 29.1 L (34.0-46.0) % Plt Count 44 L (150-450) k/uL Lymphocytes # 0.5 L (1.0-4.8) k/uL Chloride 114 H (98-107) mmol/L Carbon Dioxide 19 L (22-30) mmol/L BUN 49 H (7-17) mg/dL Creatinine 3.34 H (0.52-1.04) mg/dL Glucose 125 H (74-99) mg/dL Calcium 8.3 L (8.4-10.2) mg/dL Urine Appearance Cloudy H (Clear) Urine Protein 1+ H (Negative) Urine Blood Small H (Negative) Urine Nitrite Positive H (Negative) Ur Leukocyte Esterase Moderate H (Negative) Urine WBC 89 H (0-5) /hpf Urine WBC Clumps Many H (None) /hpf Urine Bacteria Moderate H (None) /hpf Urine Mucus Rare H (None) /hpf Microbiology - Last 24 Hours (Table) 08/15/18 19:30 Urine Culture - Preliminary Urine,Voided Thrombosis Risk Factor Assmnt - Choose All That Apply Any of the Below Risk Factors Present?: Yes Each Factor Represents 1 point: Abnormal pulmonary function (COPD) Other Risk Factors: Yes Each Risk Factor Represents 2 Points: Age 61-74 years, Malignancy Other congenital or acquired thrombophilia - If yes, enter type in comment: No Thrombosis Risk Factor Assessment Total Risk Factor Score: 5 Thrombosis Risk Factor Assessment Level: High Risk Assessment and Plan Assessment: Acute lower lobe pneumonia Urinary tract infection Possible Acute COPD exacerbation History of A. fib with RVR multiple myeloma on chemotherapy Anemia and thrombocytopenia secondary to multiple myeloma Chronic pain syndrome secondary to multiple myeloma Hypertension Hyperlipidemia History of CVA Chronic kidney disease, stage IV History of congestive heart failure, ejection fraction 25-30% History of severe mitral regurgitation and moderate pulmonary hypertension Plan: This is a pleasant 67 years old female who presents with COPD exacerbation and pneumonia. Continue with steroids, bronchodilators, oxygen, and antibiotic. Follow-up culture results. Check C. diff Labs and medication were reviewed.. Continue same treatment. Continue with symptomatic treatment. Resume home medication. Monitor lytes and vitals. DVT and GI prophylaxis. Further recommendations of the clinical course of the patient DVT prophylaxis Eliquis, on hold due to thrombocytopenia GI Prophylaxis: Pepcid PT/OT: Pending Prognosis is guarded
[2018-08-16] MEDS ORDERED: DARBEPOETIN ALFA 40 MCG/0.4 ML SYRINGE SQ SCH (14:00)
[2018-08-16] MEDS: FAMOTIDINE 20 MG/2 ML VIAL IV SCH ×2 (14:53→20:54)
--- NOTE | 2018-08-16 15:10 | CONS ---
CONSULTATION REASON FOR CONSULT: Renal failure. HISTORY OF PRESENT ILLNESS: The patient is a 67-year-old female with history of multiple myeloma, status post stem cell transplant. She also has advanced CKD almost at stage V with the plans for starting renal replacement therapy soon. Patient also has underlying cardiomyopathy with EF of 25%-30% and COPD and previous history of CHF. She was seen at my office 2 days ago for followup. At that time, patient was having some cough, however, she did not have a fever. She was not short of breath. It appears that her symptoms worsened and she got significantly more short of breath with increased weakness and therefore came into the hospital. Chest x-ray shows possible left lower lobe pneumonia. Patient has been started on IV antibiotics. She states she is feeling slightly better. Serum creatinine is 3.34 and it is at her baseline. PAST MEDICAL HISTORY: CKD stage IV to V secondary to multiple myeloma and nephrosclerosis, cardiomyopathy, EF of about 30%, multiple myeloma status post stem cell transplant and chemotherapy by history of cervical cancer, , rheumatoid arthritis, COPD, atrial fibrillation, atrial flutter, hyperlipidemia, hypertension, CKD, mineral bone disorder. PAST SURGICAL HISTORY: Multiple port placements during the chemotherapy and stem cell transplant, lumbar fusion, breast implants, and then removal of the implants. Surgery for cervical cancer. SOCIAL HISTORY: Patient is a former smoker. No history of drug abuse or alcohol abuse. MEDICATIONS: At home prior to admission include Zoloft, calcitriol, potassium, acyclovir, Eliquis, calcium, , Lopressor, sodium bicarb, Mucinex. ALLERGIES: Include penicillin, cephalosporins, Cipro, codeine, sulfa. REVIEW OF SYSTEMS: As per HPI. Other systems negative. On examination, patient is comfortable, awake, alert, oriented x3, not in any acute distress. Blood pressure was 120/66, heart rate 85 per minute. She is afebrile. Examination of the heart, S1, S2. Examination of the lungs, bilateral breath sounds are heard. Abdomen is soft, nontender x4. Examination of the lower extremities shows no significant edema. TOOL REPAIRER exam is grossly intact. Occasional crackles and wheezing is heard on exam of the lungs. LABS: Show sodium of 142, potassium 4.5, chloride 114, CO2 is 19, BUN 49, serum creatinine 3.34. UA shows small blood, WBC IS 18. Influenza serology was negative. Hemoglobin 9.8. ASSESSMENT: 1. Chronic kidney disease, endstage IV-V secondary to multiple myeloma, nephrosclerosis with plans to start renal replacement therapy down the road. However, patient's renal function has been fairly stable. 2. Multiple myeloma, status post stem cell transplant recently and status post chemotherapy. 3. Anemia, multifactorial. 4. Left lower lobe pneumonia. 5. Pyuria, rule out urinary tract infection. Plan is to check urine culture. Continue empiric antibiotics for pneumonia and gentle IV hydration. However, we need to monitor the volume status closely, as patient has developed fluid overload quickly. 6. Cardiomyopathy, ejection fraction of about 30%. 7. Chronic obstructive pulmonary disease. 8. History of atrial fibrillation, currently rate is controlled. Patient was on Eliquis. PLAN: Gentle IV hydration with close monitoring of volume status. Continue empiric antibiotics. Repeat labs in a.m. I will also maintain the patient on Aranesp. Thank you for this consultation. Will continue to follow the patient with you during her hospitalization. MMODL / IJN: [id number] /
[2018-08-16] MEDS ORDERED: LEVOFLOXACIN 750MG-D5W PMX 750 MG in DEXTROSE/WATER 1 150ML.BAG IVPB SCH (16:00)
[2018-08-16] MEDS: DEXTROSE 5%-0.9% NACL 1,000 ML IV SCH (16:00)
--- NOTE | 2018-08-16 16:56 | P.CNPUL ---
History of Present Illness Consult date: 08/16/18 Reason for consult: dyspnea History of present illness: 67-year-old female patient with known history of COPD and multiple myeloma who is status post bone marrow transplantation at was performed in May 2018, in addition to congestion heart failure with an ejection fraction of 25-30% and chronic kidney disease with a stage III kidney failure and history of CVA, hypertension, hyperlipidemia and chronic pain in addition to chronic anemia thro mbocytopenia. The patient has been maintained on a combination of Revlimid Decadron and Keprolis , and she has had multiple hospitalizations in the past for pulmonary issues/chronic pain. My last encounter with this patient was back in November 2016. At that time I diagnosed this patient having acute decompensated congestion heart failure as the patient is known to systolic heart failure with an ejection fraction of 25-30%. She did have pulmonary edema along with some troponin leak in acute atrial fibrillation with rapid ventricular response. She responded nicely to diuretics and she was supported with BiPAP and subsequently she was taken off the BiPAP. Further investigation indicated the patient has severe mitral regurgitation with secondary pulmonary hypertension. The patient was ultimately discharged home. During this current admission, the patient is coming in with some congested cough and unable to bring up any sputum. No chest pain. She did have some emesis a few days ago. She also had some dysuria. On admission, her white cell count was 3.1 with a normal coagulation profile. Her creatinine was at 3.34 with a BUN of 49 and this has been comparable to her previous studies UA. The UA was abnormal with increased white cell count and positive leukocyte esterase and nitrates. Influenza screen was negative. The lactic acid level was at 1.2. The EKG showing a normal sinus rhythm with LVH. Chest x-ray shows hyperinflation. There is evidence of hyper sclerotic foci bilaterally involving the ribs and Chronic interstitial changes questionable left lower lobe pulmonary infiltrates/pneumonia with small effusion. In the ED, there was a concern for left lower lobe pneumonia and UTI. The patient was started on Levaquin. The patient has been reported to have Cipro ALLERGY however she has taken Levaquin in the past without any major difficulties. In the ED, the patient was given a total of 2 L of bolus features was given Motrin and Tylenol. She was admitted to the medical floor. Review of Systems Constitutional: Reports chronic pain, Reports fatigue, Reports lethargy, Reports weakness Eyes: denies blurred vision, denies bulging eye, denies decreased vision Ears: deny: decreased hearing, ear discharge, earache, tinnitus Ears, nose, mouth and throat: Denies headache, Denies sore throat Cardiovascular: Reports decreased exercise tolerance, Reports dyspnea on exertion, Reports orthopnea, Reports palpitations, Reports paroxysmal nocturnal dyspnea, Reports rapid heart beat, Reports shortness of breath Respiratory: Reports dyspnea, Reports respiratory infections, Reports wheezing Gastrointestinal: Reports loss of appetite, Reports nausea Genitourinary: Reports dysuria, Denies hematuria Musculoskeletal: Reports limitation of motion, Reports low back pain, Reports muscle weakness, Reports myalgias Musculoskeletal: absent: ankle pain, ankle stiffness, ankle swelling Integumentary: Reports rash Neurological: Reports numbness, Reports weakness Psychiatric: Denies anxiety, Denies depression Endocrine: Reports fatigue Hematologic/Lymphatic: Reports as per HPI Allergic/Immunologic: Reports as per HPI Past Medical History Past Medical History: Atrial Fibrillation, Atrial Flutter, Cancer, Heart Failure, COPD, CVA/TIA, Eye Disorder, Hyperlipidemia, Hypertension, Osteoarthritis (OA), Renal Disease, Rheumatoid Arthritis (RA) Additional Past Medical History / Comment(s): Pt admitted 11/09/17 with acute on chronic CHF exacerbation, aflutter/afib with RVR/acute hypoxic respiratory failure/vavluar disease, pulmonary htn. Other hx: 04/2017 pt diagnosed with multiple myeloma/bone cancer/CRD stage IV d/t myeloma per pt and currently rec eiving chemotherapy, bicytopenia 2ndary to chemo, low albumin, chronic anemia, 2009 CVA with L leg weakness, cervical cancer with surgery, bilateral glaucoma, L eye macular degeneration, past back and R leg pain but none since lumbar fusion, History of Any Multi-Drug Resistant Organisms: None Reported Past Surgical History: Back Surgery Additional Past Surgical History / Comment(s): LUMBAR FUSION 1.5 YRS AGO, BREAST IMPLANTS IN THE 70'S REMOVED MID 'S, CERVIX REMOVED D/T CANCER. Past Anesthesia/Blood Transfusion Reactions: No Reported Reaction Additional Past Anesthesia/Blood Transfusion Reaction / Comment(s): Pt has received blood in past and last time 10/2017 developed rash and was tx with steroids. Past Psychological History: No Psychological Hx Reported Additional Psychological History / Comment(s): Pt resides with her spouse. She ambulates with a cane. She no longer drives, since her cancer diagnosis. She gets to app by family, friends or takes a cab. Smoking Status: Former smoker Past Alcohol Use History: None Reported Additional Past Alcohol Use History / Comment(s): started smoking at age 19 smoked just under 1 ppd. quit 2014 Past Drug Use History: None Reported - Past Family History Father Family Medical History: Pneumonia, Prostate Disorder Additional Family Medical History / Comment(s): FATHER RECENTLY FROM PNEUMONIA. HE WAS 100 YRS OLD. Mother Family Medical History: Cancer Additional Family Medical History / Comment(s): LUNG CANCER. MOTHER WAS A SMOKER. Medications and Allergies Home Medications Medication Instructions Recorded Confirmed Type Sertraline [Zoloft] 200 mg PO AC-LUNCH 01/28/17 08/15/18 History Calcitriol 0.25 mcg PO DAILY 10/23/17 08/15/18 History Potassium Chloride [Klor-Con 20] 20 meq PO DAILY #30 tab 11/14/17 08/15/18 Rx Acyclovir 400 mg PO DAILY 12/28/17 08/15/18 History Apixaban [Eliquis] 2.5 mg PO BID tablet 12/30/17 08/15/18 Rx Calcium Carb-Vit D 500Mg-200Un 1 tab PO BID 08/15/18 08/15/18 History [Oscal 500+D] Fluticasone/Vilanterol [Breo 1 inhalation INHALATION RT-BID 08/15/18 08/15/18 History Ellipta 200-25 Mcg INH] Lenalidomide [Revlimid] 10 mg PO DAILY 08/15/18 08/15/18 History Metoprolol Tartrate [Lopressor] 12.5 mg PO BID 08/15/18 08/15/18 History Sodium Bicarbonate Tab 650 mg PO TID 08/15/18 08/15/18 History guaiFENesin [Mucinex] 1,200 mg PO DAILY 08/15/18 08/15/18 History Allergies Allergy/AdvReac Type Severity Reaction Status Date / Time Penicillins Allergy Unknown Unknown Verified 08/15/18 16:54 Cephalosporins Allergy Unknown Verified 08/15/18 16:54 ciprofloxacin HCl Allergy Lip Verified 08/15/18 16:54 [From Cipro] swelling, itching codeine Allergy Unknown Verified 08/15/18 16:54 Sulfa (Sulfonamide Allergy Unknown Verified 08/15/18 16:54 Antibiotics) Physical Exam Vitals: Vital Signs Temp Pulse Pulse Resp BP BP Pulse Ox 08/16/18 12:27 97.5 F L 77 19 126/48 98 08/16/18 11:31 90 08/16/18 11:21 88 08/16/18 07:07 86 08/16/18 06:57 84 08/16/18 05:38 97.5 F L 69 24 120/66 98 08/16/18 01:10 85 08/16/18 01:01 85 08/15/18 21:00 97.4 F L 80 20 116/64 98 08/15/18 20:43 97.9 F 86 16 116/52 98 08/15/18 20:07 97.8 F 82 16 116/59 98 08/15/18 19:33 97.8 F 83 18 116/60 97 08/15/18 18:44 88 16 118/59 96 08/15/18 17:59 116 H 24 117/56 93 L 08/15/18 17:19 92 08/15/18 17:11 20 08/15/18 17:02 88 08/15/18 16:48 87 18 134/82 96 Intake and Output 08/16/18 08/16/18 08/16/18 06:59 14:59 22:59 Intake Total 590 Balance 590 Intake: Oral 590 Other: Voiding Method Toilet Toilet Bedside Commode Bedside Commode # Voids 1 2 Weight 39.463 kg General appearance: alert, little respiratory distress, currently off the BiPAP and the patient is on [address] by nasal cannula. Head exam: Head exam was generally normal. There was no scleral icterus or corneal arcus. Mucous membranes were moist. Eye exam: PERRL, EOMI. nonicterus ENT exam: Neck Supple, Trachea Midline, Oral Thrush, dry mucus membranes Respiratory exam: mild respiratory distress, scattered expiratory wheezes, accessory muscle use noted, decreased breath sounds bibasilar, Cardiovascular Exam: tachycardia, irregular rhythm, GI/Abdominal exam: soft, normal bowel sounds, non-distended, non tender Extremities exam: no edema, Positive peripheral pulses Neurological exam: alert, oriented X3, CN II-XII intact Psychiatric exam: normal affect, normal mood Skin exam: Present: warm, dry, intact, normal color. Hyperpigmented areas from recent systemic rash, which has improved since evaluation last week. Results - Laboratory Findings CBC and BMP: 08/15/18 16:17 08/15/18 16:17 PT/INR, D-dimer PT 10.4 sec (9.0-12.0) 08/15/18 16:17 INR 1.0 (<1.2) 08/15/18 16:17 Abnormal lab findings: Abnormal Labs 08/15/18 08/15/18 08/15/18 16:17 16:17 19:30 WBC 3.1 L RBC 3.08 L Hgb 9.8 L Hct 29.1 L Plt Count 44 L Lymphocytes # 0.5 L Chloride 114 H Carbon Dioxide 19 L BUN 49 H Creatinine 3.34 H Glucose 125 H Calcium 8.3 L Urine Appearance Cloudy H Urine Protein 1+ H Urine Blood Small H Urine Nitrite Positive H Ur Leukocyte Esterase Moderate H Urine WBC 89 H Urine WBC Clumps Many H Urine Bacteria Moderate H Urine Mucus Rare H - Diagnostic Findings Chest x-ray: image reviewed Assessment and Plan Plan: 1 acute COPD exacerbation with a questionable left lower lobe pneumonia. There is some sclerotic changes involving the ribs bilaterally probably related to her history of myeloma. There is a vague infiltrate in the left lung base with a small effusion. 2 UTI, suspected and the patient was given a dose of Levaquin cultures are still pending for now 3 multiple myeloma maintained on a combination of Revlimid and the patient is post bone marrow transplantation 4 chronic kidney disease stage 4 5 congestion heart failure with an ejection fraction of 25-30% and previous hospital physician for pulmonary edema and decompensated heart failure 6 previous hospitalization for A. 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 Obtain sputum culture. Obtain blood culture. Continue Levaquin for now. Bronchodilators [id number]. Patient is on DuoNeb nebulized treatments. IV Solu-Medrol. Monitor hematologic profile. Pain control. We'll continue to follow. Suggest holding the Eliquis right now for her issues with renal failure and thrombocytopenia. Monitor renal function.
--- NOTE | 2018-08-16 17:52 | P.CONS ---
History of Present Illness - Reason for Consult Consult date: 08/16/18 Multiple Myeloma Requesting physician: John Olsen - Chief Complaint SOB - History of Present Illness Ms. Coleman is a very pleasant female pt of Dr. Larson who was initially seen in consult at [facility] 04/07/17, admitted with c/o general malaise x 4-6 weeks, decreased appetite, 8-10 lb wt. loss, decreased endurance, intermittent nausea, increased bone pain in the bilateral rib area, Cr. 2.9 (baseline around 2), Ca++ 13.4 and anemia, previously ordered labs by Nephrology outpatient 03/31/17 showed a markedly elevated light chain at 4900 mg/dL with lambda light chains normal, SPEP negative. Treated with IV hydration and IV bisphosphonates, did have blood transfusion. 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 She was started on Rev/Velcade/Dex at the end of Apr. She has had multiple hospitalizations over the last 4 months for COPD exacerbations and bone pain. Pt completed 6 cycles. F/U labs showed progressively worsening renal function and increasing light chain. Pt was started on Kyprolis/Revlimid/Dex and has 1st 2 week cycle, which she completed 10/17. She was recentlt admitted on 10/23/17 with progressive decline , weak, eating and drinking less and less due to nausea, some vomiting, diarrhea a few times a day, she then had fever so was directed to hospital. She is uncomfortable when seen, fever on admit, feels warm now, denies oral irritation, she has congested cough, small amt of sputum, no hemoptysis, chest pain, overt ELIEZER, abd pain, distension, dysuria, hematuria, black or bloody stool, swelling or pain. She was treated with antibiotics and developed a systemic raised rash, treated supportively. Seen after admission and supportive treatment with IV hydration, antiemetics, benadryl, and topical steroids was continued. Her kyprolis was given as scheduled, last 11/02/17, along with her monthly XGEVA on 10/30/17 and continued on Revlimid. Her last creatinine was 3.56 in office which did not vary much from previous in September She has most recently been doing well on maintenance revlimid and Xgeva. Review of Systems A 14 point review of systems was assessed and completed and are all negative except for HPI Past Medical History Past Medical History: Atrial Fibrillation, Atrial Flutter, Cancer, Heart Failure, COPD, CVA/TIA, Eye Disorder, Hyperlipidemia, Hypertension, Osteoarthritis (OA), Renal Disease, Rheumatoid Arthritis (RA) Additional Past Medical History / Comment(s): Pt admitted 11/09/17 with acute on chronic CHF exacerbation, aflutter/afib with RVR/acute hypoxic respiratory failure/vavluar disease, pulmonary htn. Other hx: 04/2017 pt diagnosed with multiple myeloma/bone cancer/CRD stage IV d/t myeloma per pt and currently receiving chemotherapy, bicytopenia 2ndary to chemo, low albumin, chronic anemia, 2009 CVA with L leg weakness, cervical cancer with surgery, bilateral glaucoma, L eye macular degeneration, past back and R leg pain but none since lumbar fusion, History of Any Multi-Drug Resistant Organisms: None Reported Past Surgical History: Back Surgery Additional Past Surgical History / Comment(s): LUMBAR FUSION 1.5 YRS AGO, BREAST IMPLANTS IN THE 'S REMOVED MID S, CERVIX REMOVED D/T CANCER. Past Anesthesia/Blood Transfusion Reactions: No Reported Reaction Additional Past Anesthesia/Blood Transfusion Reaction / Comm: Pt has received blood in past and last time 10/2017 developed rash and was tx with steroids. Past Psychological History: No Psychological Hx Reported Additional Psychological History / Comment(s): Pt resides with her spouse. She ambulates with a cane. She no longer drives, since her cancer diagnosis. She gets to appts by family, friends or takes a cab. Smoking Status: Former smoker Past Alcohol Use History: None Reported Additional Past Alcohol Use History / Comment(s): started smoking at age 19 smoked just under 1 ppd. quit 2014 Past Drug Use History: None Reported - Past Family History Father Family Medical History: Pneumonia, Prostate Disorder Additional Family Medical History / Comment(s): FATHER RECENTLY FROM PNEUMONIA. HE WAS 100 YRS OLD. Mother Family Medical History: Cancer Additional Family Medical History / Comment(s): LUNG CANCER. MOTHER WAS A SMOKER. Medications and Allergies Home Medications Medication Instructions Recorded Confirmed Type Sertraline [Zoloft] 200 mg PO AC-LUNCH 01/28/17 08/15/18 History Calcitriol 0.25 mcg PO DAILY 10/23/17 08/15/18 History Potassium Chloride [Klor-Con 20] 20 meq PO DAILY #30 tab 11/14/17 08/15/18 Rx Acyclovir 400 mg PO DAILY 12/28/17 08/15/18 History Apixaban [Eliquis] 2.5 mg PO BID tablet 12/30/17 08/15/18 Rx Calcium Carb-Vit D 500Mg-200Un 1 tab PO BID 08/15/18 08/15/18 History [Oscal 500+D] Fluticasone/Vilanterol [Breo 1 inhalation INHALATION RT-BID 08/15/18 08/15/18 History Ellipta 200-25 Mcg INH] Lenalidomide [Revlimid] 10 mg PO DAILY 08/15/18 08/15/18 History Metoprolol Tartrate [Lopressor] 12.5 mg PO BID 08/15/18 08/15/18 History Sodium Bicarbonate Tab 650 mg PO TID 08/15/18 08/15/18 History guaiFENesin [Mucinex] 1,200 mg PO DAILY 08/15/18 08/15/18 History Allergies Allergy/AdvReac Type Severity Reaction Status Date / Time Penicillins Allergy Unknown Unknown Verified 08/15/18 16:54 Cephalosporins Allergy Unknown Verified 08/15/18 16:54 ciprofloxacin HCl Allergy Lip Verified 08/15/18 16:54 [From Cipro] swelling, itching codeine Allergy Unknown Verified 08/15/18 16:54 Sulfa (Sulfonamide Allergy Unknown Verified 08/15/18 16:54 Antibiotics) Physical Exam Vitals: Vital Signs Temp Pulse Pulse Resp BP BP Pulse Ox 08/16/18 16:09 86 08/16/18 15:57 84 08/16/18 12:27 97.5 F L 77 19 126/48 98 08/16/18 11:31 90 08/16/18 11:21 88 08/16/18 07:07 86 08/16/18 06:57 84 08/16/18 05:38 97.5 F L 69 24 120/66 98 08/16/18 01:10 85 08/16/18 01:01 85 08/15/18 21:00 97.4 F L 80 20 116/64 98 08/15/18 20:43 97.9 F 86 16 116/52 98 08/15/18 20:07 97.8 F 82 16 116/59 98 08/15/18 19:33 97.8 F 83 18 116/60 97 08/15/18 18:44 88 16 118/59 96 08/15/18 17:59 116 H 24 117/56 93 L Intake and Output 08/16/18 08/16/18 08/16/18 06:59 14:59 22:59 Intake Total 590 Balance 590 Intake: Oral 590 Other: Voiding Method Toilet Toilet Bedside Commode Bedside Commode # Voids 1 2 Weight 39.463 kg General: Alert and Oriented x3, No Acute Distress Head: Normocytic, Atraumatic Neck: Supple Mouth: No Lesions, No Thrush Eyes: Non-sclerotic No Palpable cervical, supraclavicular, axillary adenopathy Heart: Regular Rate, Regular Rhythm Lungs: increased effort and expiratory Wheeze, Abdomen: Soft, Non-Distended, Non-Tended, BSx4 Extremities: No Edema, Equal Strength Neurological: No Focal Defects: No sensory or motor deficits noted Psych: Calm and cooperative Results CBC & Chem 7: 08/15/18 16:17 08/15/18 16:17 Labs: Abnormal Lab Results - Last 24 Hours (Table) 08/15/18 Range/Units 19:30 Urine Appearance Cloudy H (Clear) Urine Protein 1+ H (Negative) Urine Blood Small H (Negative) Urine Nitrite Positive H (Negative) Ur Leukocyte Esterase Moderate H (Negative) Urine WBC 89 H (0-5) /hpf Urine WBC Clumps Many H (None) /hpf Urine Bacteria Moderate H (None) /hpf Urine Mucus Rare H (None) /hpf Microbiology - Last 24 Hours (Table) 08/15/18 19:30 Urine Culture - Preliminary Urine,Voided Chest x-ray: report reviewed Assessment and Plan Plan: Multiple Myeloma: - Revlimid and Xgeva maintenance Pancytopenia: - Secondary to chemotherapy and exacerbated with acute illness - Hold Anticoag untill platlet greater than 50K and hol revlimid until platlet increase Exacerbation COPD: - Per Pulmonary.
[2018-08-16] MEDS ORDERED: SYMBICORT 160-4.5 MCG INHALER INHALATION SCH (20:00)
[2018-08-16] MEDS: IPRATROPIUM-ALBUTEROL 3 ML NEB INHALATION SCH (20:05)
[2018-08-16] MEDS: SODIUM BICARBONATE TAB 650 MG TAB PO SCH (20:54)
[2018-08-16] MEDS: CALCIUM CARB-VIT D 500MG-200UN 1 EACH TAB PO SCH (20:54)
[2018-08-17] MEDS: methylPREDNISolone SOD SUCCI 125 MG/2 ML VIAL IV SCH ×4 (05:41→23:26)
[2018-08-17] MEDS: SYMBICORT 160-4.5 MCG INHALER INHALATION SCH ×2 (07:43→20:14)
[2018-08-17] MEDS: IPRATROPIUM-ALBUTEROL 3 ML NEB INHALATION SCH ×4 (07:43→20:14)
[2018-08-17] MEDS: guaiFENesin 600 MG TABLET.ER PO SCH ×3 (08:25→20:46)
[2018-08-17] MEDS: METOPROLOL TARTRATE 12.5 MG TAB PO SCH ×2 (08:25→20:48)
[2018-08-17] MEDS: ACYCLOVIR 200 MG CAP PO SCH (08:25)
[2018-08-17] MEDS: FAMOTIDINE 20 MG/2 ML VIAL IV SCH (08:25)
[2018-08-17] MEDS: CALCIUM CARB-VIT D 500MG-200UN 1 EACH TAB PO SCH ×2 (08:26→20:46)
[2018-08-17] MEDS: CALCITRIOL 0.25 MCG CAP PO SCH (08:26)
[2018-08-17] MEDS: POTASSIUM CHLORIDE ER 20 MEQ TAB.ER PO SCH (08:26)
[2018-08-17] MEDS: SODIUM BICARBONATE TAB 650 MG TAB PO SCH ×3 (08:26→20:46)
[2018-08-17] MEDS: BENZONATATE 100 MG CAP PO SCH ×3 (08:26→20:46)
[2018-08-17] MEDS: LENALIDOMIDE 10 MG PO SCH (08:29)
[2018-08-17] MEDS: DEXTROSE 5%-0.9% NACL 1,000 ML IV SCH (08:36)
--- NOTE | 2018-08-17 09:17 | PN ---
PROGRESS NOTE Patient is seen for followup for chronic kidney disease, NKF stage IV-V secondary to multiple myeloma and nephrosclerosis. Patient is status post stem cell transplant. She was admitted to the hospital with significant shortness of breath. Chest x-ray showed evidence of left lower lobe pneumonia. Patient is maintained on antibiotics. She states she is feeling better. Renal function is at baseline. On examination, blood pressure is 149/68, heart rate 80 per minute. She is afebrile. Examination of the heart, S1, S2. Examination of the lungs, decreased breath sounds at the bases, bilateral crackles and wheezing is heard. Abdomen is soft, nontender. Examination of the the lower extremities shows no significant edema. BLACK TOP ROLLER exam is grossly intact. LABS: From 08/15 show sodium 142, potassium 4.5, serum creatinine 3.34. ASSESSMENT: 1. Chronic kidney disease, endstage IV-V, secondary to multiple myeloma and nephrosclerosis. Renal function is at baseline. I will repeat labs today. 2. Left lower lobe pneumonia maintained on antibiotics and improving. 3. Anemia, multifactorial. 4. Metabolic acidosis. Maintained on sodium bicarb. 5. History of congestive heart failure. 6. History of chronic obstructive pulmonary disease, maintained on prednisone. PLAN: Check labs today, continue to encourage increased oral intake. Continue antibiotics. MMODL / IJN: [id number] /
[2018-08-17 09:35] LABS: Calcium 6.8 mg/dL (8.4-10.2); Potassium 4.1 mmol/L (3.5-5.1)
[2018-08-17] MEDS: SERTRALINE 100 MG TAB PO SCH (12:59)
--- NOTE | 2018-08-17 13:09 | P.PN ---
Subjective Progress Note Date: 08/17/18 Principal diagnosis: Acute exacerbation of COPD, with a questionable left lower lobe pneumonia 67-year-old female patient with known history of COPD and multiple myeloma who is status post bone marrow transplantation at was performed in May 2018, in addition to congestion heart failure with an ejection fraction of 25-30% and chronic kidney disease with a stage III kidney failure and history of CVA, hypertension, hyperlipidemia and chronic pain in addition to chronic anemia thrombocytopenia. The patient has been maintained on a combination of Revlimid Decadron and Keprolis , and she has had multiple hospitalizations in the past for pulmonary issues/chronic pain. My last encounter with this patient was back in November 2016. At that time I diagnosed this patient having acute decompensated congestion heart failure as the patient is known to systolic heart failure with an ejection fraction of 25-30%. She did have pulmonary edema along with some troponin leak in acute atrial fibrillation with rapid ventricular response. She responded nicely to diuretics and she was supported with BiPAP and subsequently she was taken off the BiPAP. Further investigation indicated the patient has severe mitral regurgitation with secondary pulmonary hypertension. The patient was ultimately discharged home. During this current admission, the patient is coming in with some congested cough and unable to bring up any sputum. No chest pain. She did have some emesis a few days ago. She also had some dysuria. On admission, her white cell count was 3.1 with a normal coagulation profile. Her creatinine was at 3.34 with a BUN of 49 and this has been comparable to her previous studies UA. The UA was abnormal with increased white cell count and positive leukocyte esterase and nitrates. Influenza screen was negative. The lactic acid level was at 1.2. The EKG showing a normal sinus rhythm with LVH. Chest x-ray shows hyperinflation. There is evidence of hyper sclerotic foci bilaterally involving the ribs and Chronic interstitial changes questionable left lower lobe pulmonary infiltrates/pneumonia with small effusion. In the ED, there was a concern for left lower lobe pneumonia and UTI. The patient was started on Levaquin. The patient has been reported to have Cipro ALLERGY however she has taken Levaquin in the past without any major difficulties. In the ED, the patient was given a total of 2 L of bolus features was given Motrin and Tylenol. She was admitted to the medical floor. On 08/17/2018 patient is seen in follow-up on medical surgical floor. She states her breathing is improving, but still dyspneic, and wheezy, sounds less congested on today's exam. Afebrile, hemodynamically stable, pulse ox is 96% on 3 L. She started to bring up small amount sputum. Today's labs have been reviewed, serum sodium is 145, potassium is 4.1, chloride is 118, CO2 is 16, BUN is 51, creatinine is 2.77, urinalysis showed moderate amount of leukocyte est erase, clumps of white blood cells, 89 of urine WBCs. Urine cultures pending, blood culture showed no growth. Antibiotic coverage in the form of Levaquin, nebulized bronchodilators and IV steroids. Objective - Vital Signs Vital signs: Vital Signs Temp 97.6 F 08/17/18 12:19 Pulse 81 08/17/18 12:19 Resp 20 08/17/18 12:19 BP 139/61 08/17/18 12:19 Pulse Ox 96 08/17/18 12:19 Intake & Output 08/16/18 08/17/18 08/17/18 18:59 06:59 18:59 Intake Total 1180 Balance 1180 Weight 39.463 kg 41 kg Intake: Oral 1180 Other: Voiding Method Toilet Toilet Toilet Bedside Commode Bedside Commode Bedside Commode # Voids 2 2 - Exam GENERAL EXAM: Alert, pleasant, 67-year-old white female on 3 L of oxygen, with a pulse ox of 96%, comfortable in no apparent distress. HEAD: Normocephalic/atraumatic. EYES: Normal reaction of pupils, equal size. Conjunctiva pink, sclera white. NOSE: Clear with pink turbinates. THROAT: No erythema or exudates. NECK: No masses, no JVD, no thyroid enlargement, no adenopathy. CHEST: No chest wall deformity. Symmetrical expansion. LUNGS: Equal air entry with no diffuse rhonchi and wheezes CVS: Regular rate and rhythm, normal S1 and S2, no gallops, no murmurs, no rubs ABDOMEN: Soft, nontender. No hepatosplenomegaly, normal bowel sounds, no guarding or rigidity. EXTREMITIES: No clubbing, no edema, no cyanosis, 2+ pulses and upper and lower extremities. MUSCULOSKELETAL: Muscle strength and tone normal. SPINE: No scoliosis or deformity SKIN: No rashes CENTRAL NERVOUS SYSTEM: Alert and oriented -3. No focal deficits, tone is normal in all 4 extremities. PSYCHIATRIC: Alert and oriented -3. Appropriate affect. Intact judgment and insight. - Labs CBC & Chem 7: 08/15/18 16:17 08/17/18 08:43 Labs: Abnormal Lab Results - Last 24 Hours (Table) 08/17/18 Range/Units 08:43 Chloride 118 H (98-107) mmol/L Carbon Dioxide 16 L (22-30) mmol/L BUN 51 H (7-17) mg/dL Creatinine 2.77 H (0.52-1.04) mg/dL Glucose 116 H (74-99) mg/dL Calcium 6.8 L (8.4-10.2) mg/dL Microbiology - Last 24 Hours (Table) 08/15/18 16:17 Blood Culture - Preliminary Blood No Growth after 24 hours Assessment and Plan Plan: 1 acute COPD exacerbation with a questionable left lower lobe pneumonia. There is some sclerotic changes involving the ribs bilaterally probably related to her history of myeloma. There is a vague infiltrate in the left lung base with a small effusion. 2 UTI, suspected and the patient was given a dose of Levaquin cultures are still pending for now 3 multiple myeloma maintained on a combination of Revlimid and the patient is post bone marrow transplantation 4 chronic kidney disease stage 4 5 congestion heart failure with an ejection fraction of 25-30% and previous hospital physician for pulmonary edema and decompensated heart failure 6 previous hospitalization for A. 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 Follow up chest x-ray tomorrow, I performed a history & physical examination of the patient and discussed their management with my nurse practitioner, Bere Alves. I reviewed the nurse practitioner's note and agree with the documented findings and plan of care. Lung sounds are positive for diffuse wheezes throughout the lung stewart. The findings and the impression was discussed with the patient. I attest to the documentation by the nurse practitioner. Time with Patient: Less than 30
--- NOTE | 2018-08-17 13:39 | P.PN ---
Subjective This is a pleasant 67 years old female with past medical history of multiple myeloma on combination of Revlimid and dexamethasone and ninlaro, COPD, A. fib RVR, chronic congestive heart failure with ejection fraction 25-30%, chronic kidney disease stage III, previous history of CVA, hypertension, hyperlipidemia, chronic pain syndrome secondary to multiple myeloma, chronic anemia and thrombocytopenia. This time patient Presents with dyspnea of 2 days of duration, patient had common called about one week ago. She has some wet cough but she is unable to bring phlegm up. She denies chest pain or abdominal pain however she has loose bowel movement about 3-4 times per day which is watery. She vomited a couple days ago but not anymore. And she has some burning in her urine suspicious for urinary tract infection. Patient Vitas looks stable, she is saturating 98% on 2 L. She's been afebrile. WBC 3.1, hemoglobin 9.8. Platelets 44. Creatinine 3.34, it was 3.33 on 12/2017. EKG showing normal sinus rhythm at [address]-T a bnormality. Chest x-ray: Possible early left lower lobe pneumonia. Urinalysis is suggestive to infection too. Urine culture is pending. In the emergency room patient was given ibuprofen, Tylenol and Levaquin Also she is on Eliquis 2.5 mg, hold that in view of her low platelets at 44 08/17/2018 Patient still dyspneic today, she was able to make some of phlegm with her comfortable and was sent for culture and sensitivity. Chest pain is mild and only with coughing. Diarrhea stopped. Dysuria improved significantly with antibiotics. Her urine cultures, investing for gram-negative bacilli and final culture is pending. Hemodynamically stable and she is afebrile. She saturating 96% on 3 L. Labs from today reviewed. Her creatinine is improving from 3.3 down to 2.7. Influenza is negative. Pulmonary and nephrology team and ports are appreciated. Patient is currently on Levaquin and Solu-Medrol, acyclovir. Eliquis is on hold for thrombocytopenia. Repeat platelet count from today is pending CONSTITUTIONAL: No fever, no malaise, no fatigue. HEENT: No recent visual problems or hearing problems. Denied any sore throat. CARDIOVASCULAR: No orthopnea, PND, no palpitations, no syncope. PULMONARY: No shortness of breath, no cough, no hemoptysis. GASTROINTESTINAL: No diarrhea, no nausea, no vomiting, no abdominal pain. Normoactive bowel sounds. NEUROLOGICAL: No headaches, no weakness, no numbness. HEMATOLOGICAL: Denies any bleeding or petechiae. GENITOURINARY: Denies any burning micturition, frequency, or urgency. MUSCULOSKELETAL/RHEUMATOLOGICAL: Denies any joint pain, swelling, or any muscle pain. ENDOCRINE: Denies any polyuria or polydipsia. Medication: Acyclovir 400 mg, albuterol 0.5 mg, Tessalon 100 mg, Symbicort 160- 4.5 g, calcitriol 0.25 micrograms, calcium carbonate 1 tablet, Chandni is a 40 g, dextrose 5% normal saline at 50 mm per hour, Pepcid 20 mg, Mucinex 1200 mg, Revlimid 10 mg, Levaquin 500 mg, solid Medrol 60 mg, Lopressor 12.5 mg, potassium chloride 20 mEq, Zoloft 200 mg, sodium bicarbonate 650 mg. Objective - Vital Signs Vital signs: Vital Signs Temp 97.6 F 08/17/18 12:19 Pulse 81 08/17/18 12:19 Resp 20 08/17/18 12:19 BP 139/61 08/17/18 12:19 Pulse Ox 96 08/17/18 12:19 Intake & Output 08/16/18 08/17/18 08/17/18 18:59 06:59 18:59 Intake Total 1180 Balance 1180 Weight 39.463 kg 41 kg Intake: Oral 1180 Other: Voiding Method Toilet Toilet Toilet Bedside Commode Bedside Commode Bedside Commode # Voids 2 2 - Exam GENERAL: The patient is alert and oriented x3, not in any acute distress. Cachectic HEENT: Pupils are round and equally reacting to light. EOMI. No scleral icterus. No conjunctival pallor. Normocephalic, atraumatic. No pharyngeal erythema. No thyromegaly. CARDIOVASCULAR: S1 and S2 present. No murmurs, rubs, or gallops. -PULMONARY: Chest is clear to auscultation, mild wheezing, Tachypneic. No crepitation. Decreased air entry on both lungs ABDOMEN: Soft, nontender, nondistended, normoactive bowel sounds. No palpable organomegaly. MUSCULOSKELETAL: No joint swelling or deformity. EXTREMITIES: No cyanosis, clubbing, or pedal edema. NEUROLOGICAL: Gross neurological examination did not reveal any focal deficits. SKIN: No rashes. - Labs CBC & Chem 7: 08/15/18 16:17 08/17/18 08:43 Labs: Abnormal Lab Results - Last 24 Hours (Table) 08/17/18 Range/Units 08:43 Chloride 118 H (98-107) mmol/L Carbon Dioxide 16 L (22-30) mmol/L BUN 51 H (7-17) mg/dL Creatinine 2.77 H (0.52-1.04) mg/dL Glucose 116 H (74-99) mg/dL Calcium 6.8 L (8.4-10.2) mg/dL Microbiology - Last 24 Hours (Table) 08/15/18 19:30 Urine Culture - Preliminary Urine,Voided Gram Neg Bacilli 08/15/18 16:17 Blood Culture - Preliminary Blood No Growth after 24 hours Assessment and Plan Assessment: Acute COPD exacerbation Urinary tract infection, with gram-negative bacilli possible acute lower lobe pneumonia Possible elements of acute kidney injury Thrombocytopenia Diarrhea on admission. Resolved. Mostly reactive History of A. fib with RVR multiple myeloma on chemotherapy Anemia and thrombocytopenia secondary to multiple myeloma Chronic pain syndrome secondary to multiple myeloma Hypertension Hyperlipidemia History of CVA Chronic kidney disease, stage IV History of congestive heart failure, ejection fraction 25-30% History of severe mitral regurgitation and moderate pulmonary hypertension Plan: This is a pleasant 67 years old female who presents with COPD exacerbation and pneumonia. Continue with steroids, bronchodilators, oxygen, and antibiotic. Follow-up culture results. Labs and medication were reviewed.. Continue same treatment. Continue with symptomatic treatment. Resume home medication. Monitor lytes and vitals. DVT and GI prophylaxis. Further recommendations of the clinical course of the patient DVT prophylaxis Eliquis, on hold due to thrombocytopenia GI Prophylaxis: Pepcid PT/OT: Pending Prognosis is guarded
--- NOTE | 2018-08-17 14:05 | P.PN ---
Subjective Progress Note Date: 08/17/18 Principal diagnosis: pneumonia, multiple myeloma weak and thin, appears chronically ill Objective - Vital Signs Vital signs: Vital Signs Temp 97.6 F 08/17/18 12:19 Pulse 81 08/17/18 12:19 Resp 20 08/17/18 12:19 BP 139/61 08/17/18 12:19 Pulse Ox 96 08/17/18 12:19 Intake & Output 08/16/18 08/17/18 08/17/18 18:59 06:59 18:59 Intake Total 1180 Balance 1180 Weight 39.463 kg 41 kg 41 kg Intake: Oral 1180 Other: Voiding Method Toilet Toilet Toilet Bedside Commode Bedside Commode Bedside Commode # Voids 2 2 - Labs CBC & Chem 7: 08/17/18 15:04 08/17/18 15:04 Labs: Abnormal Lab Results - Last 24 Hours (Table) 08/17/18 Range/Units 08:43 Chloride 118 H (98-107) mmol/L Carbon Dioxide 16 L (22-30) mmol/L BUN 51 H (7-17) mg/dL Creatinine 2.77 H (0.52-1.04) mg/dL Glucose 116 H (74-99) mg/dL Calcium 6.8 L (8.4-10.2) mg/dL Microbiology - Last 24 Hours (Table) 08/15/18 19:30 Urine Culture - Preliminary Urine,Voided Gram Neg Bacilli 08/15/18 16:17 Blood Culture - Preliminary Blood No Growth after 24 hours Assessment and Plan Plan: Multiple Myeloma: - Revlimid and Xgeva maintenance - Status Post Stem cell Pancytopenia: - Secondary to chemotherapy and exacerbated with acute illness - Hold Anticoag untill platlet greater than 50K and hol revlimid until platlet increase Exacerbation COPD: Pneumonia - Antibiotics - Per Pulmonary. Unexplained weight loss.
[2018-08-17 15:32] LABS: Basophils % (A) 1 %; Eosinophils % (A) 0 %; HCT 28.8 % (34.0-46.0); HGB 8.8 gm/dL (11.4-16.0); Hypochromasia Slight; Lymphocytes # (A) 0.3 k/uL (1.0-4.8); Lymphocytes % (A) 14 %; MCH 30.5 pg (25.0-35.0); MCHC 30.5 g/dL (31.0-37.0); Macrocytosis Slight; Mean Platelet Volume 11.2; Monocytes # (A) 0.1 k/uL (0-1.0); Monocytes % (A) 6 %; Neutrophils # (A) 1.5 k/uL (1.3-7.7); Neutrophils % (A) 76 %; RBC 2.89 m/uL (3.80-5.40); RDW 15.6 % (11.5-15.5); Reticulocyte % 2.6 % (0.5-2.0); WBC 1.9 k/uL (3.8-10.6)
[2018-08-17 15:38] LABS: MCV 99.7 fL (80.0-100.0); Platelet Count 43 k/uL (150-450)
[2018-08-17 15:45] LABS: Albumin 3.7 g/dL (3.5-5.0); Calcium 6.8 mg/dL (8.4-10.2); Magnesium 1.8 mg/dL (1.6-2.3); Potassium 4.8 mmol/L (3.5-5.1); Total Bilirubin 0.4 mg/dL (0.2-1.3); Total Protein 6.1 g/dL (6.3-8.2)
[2018-08-17] MEDS ORDERED: LEVOFLOXACIN 500MG-D5W PMX 500 MG in DEXTROSE/WATER 1 100ML.BAG IVPB SCH (16:00)
[2018-08-17 18:06] LABS: Protein, Total 5.5 g/dL (6.2-8.2)
[2018-08-17 18:07] LABS: Iron Saturation 26.23 (12.00-45.00)
[2018-08-17 18:25] LABS: Folate, Serum 10.6 ng/mL
[2018-08-18] MEDS: methylPREDNISolone SOD SUCCI 125 MG/2 ML VIAL IV SCH ×4 (05:07→23:05)
[2018-08-18 07:19] LABS: Basophils % (A) 0 %; Eosinophils % (A) 1 %; HCT 25.2 % (34.0-46.0); Lymphocytes # (A) 0.4 k/uL (1.0-4.8); Lymphocytes % (A) 18 %; MCH 31.1 pg (25.0-35.0); MCHC 31.9 g/dL (31.0-37.0); MCV 97.5 fL (80.0-100.0); Macrocytosis Slight; Mean Platelet Volume 9.4; Monocytes # (A) 0.2 k/uL (0-1.0); Monocytes % (A) 8 %; Neutrophils # (A) 1.3 k/uL (1.3-7.7); Neutrophils % (A) 69 %; RBC 2.59 m/uL (3.80-5.40); RDW 15.8 % (11.5-15.5); WBC 1.9 k/uL (3.8-10.6)
[2018-08-18 07:34] LABS: Calcium 6.8 mg/dL (8.4-10.2); Potassium 4.6 mmol/L (3.5-5.1)
[2018-08-18 07:59] LABS: Platelet Count 45 k/uL (150-450)
[2018-08-18] MEDS: IPRATROPIUM-ALBUTEROL 3 ML NEB INHALATION SCH ×4 (08:28→20:47)
[2018-08-18] MEDS: SYMBICORT 160-4.5 MCG INHALER INHALATION SCH ×2 (08:28→20:48)
--- NOTE | 2018-08-18 09:05 | XR ---
EXAMINATION TYPE: XR chest 2V DATE OF EXAM: 08/18/2018 HISTORY: follow up. REFERENCE: Previous study dated 08/15/2018. FINDINGS: The patient has a history of multiple myeloma. There are multiple rib lesions, unchanged fr om previous. The lungs are overinflated. Heart size is within normal limits. The size of the left pleural effusion has decreased. Minimal pleural fluid remains. I do not see evidence of pneumonia or edema. IMPRESSION: 1. NO ACUTE INTRATHORACIC ABNORMALITY. 2. MULTIPLE RIB LESIONS. 3. COPD. 4. IMPROVING LEFT-SIDED EFFUSION.
[2018-08-18] MEDS: guaiFENesin 600 MG TABLET.ER PO SCH ×3 (09:40→20:46)
[2018-08-18] MEDS: SODIUM BICARBONATE TAB 650 MG TAB PO SCH ×4 (09:40→20:46)
[2018-08-18] MEDS: ACYCLOVIR 200 MG CAP PO SCH (09:40)
[2018-08-18] MEDS: CALCITRIOL 0.25 MCG CAP PO SCH (09:40)
[2018-08-18] MEDS: BENZONATATE 100 MG CAP PO SCH ×3 (09:40→20:46)
[2018-08-18] MEDS: CALCIUM CARB-VIT D 500MG-200UN 1 EACH TAB PO SCH ×2 (09:40→20:45)
[2018-08-18] MEDS: METOPROLOL TARTRATE 12.5 MG TAB PO SCH ×2 (09:40→20:46)
[2018-08-18] MEDS: POTASSIUM CHLORIDE ER 20 MEQ TAB.ER PO SCH (09:40)
[2018-08-18] MEDS: LENALIDOMIDE 10 MG PO SCH (09:41)
[2018-08-18] MEDS: FAMOTIDINE 20 MG TAB PO SCH (09:41)
[2018-08-18] MEDS: DEXTROSE 5%-0.9% NACL 1,000 ML IV SCH ×2 (09:42→09:43)
[2018-08-18] MEDS: SERTRALINE 100 MG TAB PO SCH (12:14)
--- NOTE | 2018-08-18 12:58 | P.PN ---
Subjective Progress Note Date: 08/18/18 This is a 67-year-old female seen with chronic kidney disease stage IV to 5, who was admitted with pneumonia. She has history of multiple myeloma who has had a stem cell transplant in May 2018 3 months ago. She is on chemotherapy including Revlimid. Previously she was also on dexamethasone and ninlaro( proreosome inhibitor) which have been discontinued. She is also known with atrial fibrillation and congestive heart failure ejection fraction of 25-30%. She has chronic cytopenias Today on exam she is feeling better less short of breath mild cough with creamy sputum. No nausea vomiting some minimal diarrhea. Appetite is fair. No dizziness no fever chills no abdominal pain. Objective - Vital Signs Vital signs: Vital Signs Temp 97.5 F L 08/18/18 03:55 Pulse 84 08/18/18 12:07 Resp 16 08/18/18 03:55 BP 144/65 08/18/18 03:55 Pulse Ox 100 08/18/18 03:55 Intake & Output 08/17/18 08/18/18 08/18/18 18:59 06:59 18:59 Output Total 1 Balance -1 Weight 41 kg Output: Urine 1 Other: Voiding Method Toilet Toilet Bedside Commode Bedside Commode # Voids 3 # Bowel Movements 1 Awake alert oriented comfortable, she is somewhat emaciated HEENT exam no JVP lymphadenopathy neck is supple no facial asymmetry Lungs are clear to auscultation good air entry bilaterally. Heart sounds are unremarkable for any murmur rub gallop Normal sinus rhythm Abdomen soft nontender Extremity exam was no edema Neurologically awake alert oriented - Labs CBC & Chem 7: 08/18/18 06:36 08/18/18 06:36 Labs: Abnormal Lab Results - Last 24 Hours (Table) 08/17/18 08/17/18 08/17/18 Range/Units 15:04 15:04 15:04 WBC 1.9 L (3.8-10.6) k/uL RBC 2.89 L (3.80-5.40) m/uL Hgb 8.8 L (11.4-16.0) gm/dL Hct 28.8 L (34.0-46.0) % MCHC 30.5 L (31.0-37.0) g/dL RDW 15.6 H (11.5-15.5) % Plt Count 43 L (150-450) k/uL Lymphocytes # 0.3 L (1.0-4.8) k/uL Retic Count 2.6 H (0.5-2.0) % Chloride 117 H (98-107) mmol/L Carbon Dioxide 17 L (22-30) mmol/L BUN 48 H (7-17) mg/dL Creatinine 2.58 H (0.52-1.04) mg/dL Glucose 105 H (74-99) mg/dL Calcium 6.8 L (8.4-10.2) mg/dL Ferritin 376.1 H (10.0-291.0) ng/mL Total Protein 6.1 L (6.3-8.2) g/dL Total Protein (PEP) 5.5 L (6.2-8.2) g/dL Free [place] LC, Quant 2.27 H (0.33-1.94) mg/dL 08/18/18 08/18/18 Range/Units 06:36 06:36 WBC 1.9 L (3.8-10.6) k/uL RBC 2.59 L (3.80-5.40) m/uL Hgb 8.0 L (11.4-16.0) gm/dL Hct 25.2 L (34.0-46.0) % MCHC (31.0-37.0) g/dL RDW 15.8 H (11.5-15.5) % Plt Count 45 L (150-450) k/uL Lymphocytes # 0.4 L (1.0-4.8) k/uL Retic Count (0.5-2.0) % Chloride 120 H (98-107) mmol/L Carbon Dioxide 16 L (22-30) mmol/L BUN 52 H (7-17) mg/dL Creatinine 2.52 H (0.52-1.04) mg/dL Glucose 104 H (74-99) mg/dL Calcium 6.8 L (8.4-10.2) mg/dL Ferritin (10.0-291.0) ng/mL Total Protein (6.3-8.2) g/dL Total Protein (PEP) (6.2-8.2) g/dL Free [place] LC, Quant (0.33-1.94) mg/dL Microbiology - Last 24 Hours (Table) 08/15/18 19:30 Urine Culture - Final Urine,Voided Escherichia coli 08/17/18 08:00 Gram Stain - Preliminary Sputum 08/15/18 16:17 Blood Culture - Preliminary Blood No Growth after 48 hours Assessment and Plan Assessment: Impression 1. Chronic kidney disease secondary to multiple myeloma. Baseline creatinine is 2.2 as of 06/25/2018. 2. Admitted with pneumonia and acute kidney injury creatinine went up to 3.34 and is down to 2.52. 3. Pneumonia. On antibiotics. 4. Worsening of chronic metabolic acidosis secondary to diarrhea and acute kidney injury on sodium bicarb 650 3 times a day. 5. History of atrial fibrillation, COPD, rheumatoid arthritis. 6. Cytopenias. 7. Anemia getting worse, B12 and folate are normal iron saturation not available Recommendation 1. Increase sodium bicarbonate to 6 and 54 times a day because of worsening acidosis. 2. DC potassium and and monitor 3. Anemia is getting worse hemoglobin is down from 9.8-8. Check iron saturation
--- NOTE | 2018-08-18 13:28 | P.PN ---
Subjective Progress Note Date: 08/18/18 She'll still has significant generalized weakness. Being on oxygen. However she feels stronger with decrease workup breathing. Appetite is also improved. No nausea or vomiting. Fever pattern has improved though she does get chills easily Objective - Vital Signs Vital signs: Vital Signs Temp 98 F 08/18/18 12:49 Pulse 89 08/18/18 12:49 Resp 18 08/18/18 12:49 BP 143/67 08/18/18 12:49 Pulse Ox 97 08/18/18 12:49 Intake & Output 08/17/18 08/18/18 08/18/18 18:59 06:59 18:59 Output Total 1 Balance -1 Weight 41 kg Output: Urine 1 Other: Voiding Method Toilet Toilet Bedside Commode Bedside Commode # Voids 3 # Bowel Movements 1 - Constitutional General appearance: Present: no acute distress - EENT Eyes: Present: EOMI ENT: Present: hearing grossly normal, normal oropharynx - Respiratory Respiratory: bilateral: diminished - Cardiovascular Rhythm: regular Heart sounds: normal: S1, S2 - Gastrointestinal General gastrointestinal: Present: normal bowel sounds, soft - Integumentary Integumentary: Present: normal - Neurologic Neurologic: Present: CNII-XII intact - Musculoskeletal Musculoskeletal: Present: generalized weakness, strength equal bilaterally - Psychiatric Psychiatric: Present: A&O x's 3, appropriate affect - Labs CBC & Chem 7: 08/18/18 06:36 08/18/18 06:36 Labs: Abnormal Lab Results - Last 24 Hours (Table) 08/17/18 08/17/18 08/17/18 Range/Units 15:04 15:04 15:04 WBC 1.9 L (3.8-10.6) k/uL RBC 2.89 L (3.80-5.40) m/uL Hgb 8.8 L (11.4-16.0) gm/dL Hct 28.8 L (34.0-46.0) % MCHC 30.5 L (31.0-37.0) g/dL RDW 15.6 H (11.5-15.5) % Plt Count 43 L (150-450) k/uL Lymphocytes # 0.3 L (1.0-4.8) k/uL Retic Count 2.6 H (0.5-2.0) % Chloride 117 H (98-107) mmol/L Carbon Dioxide 17 L (22-30) mmol/L BUN 48 H (7-17) mg/dL Creatinine 2.58 H (0.52-1.04) mg/dL Glucose 105 H (74-99) mg/dL Calcium 6.8 L (8.4-10.2) mg/dL Ferritin 376.1 H (10.0-291.0) ng/mL Total Protein 6.1 L (6.3-8.2) g/dL Total Protein (PEP) 5.5 L (6.2-8.2) g/dL Free [place] LC, Quant 2.27 H (0.33-1.94) mg/dL 08/18/18 08/18/18 Range/Units 06:36 06:36 WBC 1.9 L (3.8-10.6) k/uL RBC 2.59 L (3.80-5.40) m/uL Hgb 8.0 L (11.4-16.0) gm/dL Hct 25.2 L (34.0-46.0) % MCHC (31.0-37.0) g/dL RDW 15.8 H (11.5-15.5) % Plt Count 45 L (150-450) k/uL Lymphocytes # 0.4 L (1.0-4.8) k/uL Retic Count (0.5-2.0) % Chloride 120 H (98-107) mmol/L Carbon Dioxide 16 L (22-30) mmol/L BUN 52 H (7-17) mg/dL Creatinine 2.52 H (0.52-1.04) mg/dL Glucose 104 H (74-99) mg/dL Calcium 6.8 L (8.4-10.2) mg/dL Ferritin (10.0-291.0) ng/mL Total Protein (6.3-8.2) g/dL Total Protein (PEP) (6.2-8.2) g/dL Free [place] LC, Quant (0.33-1.94) mg/dL Microbiology - Last 24 Hours (Table) 08/15/18 19:30 Urine Culture - Final Urine,Voided Escherichia coli 08/17/18 08:00 Gram Stain - Preliminary Sputum 08/15/18 16:17 Blood Culture - Preliminary Blood No Growth after 48 hours Assessment and Plan (1) Acute exacerbation of chronic obstructive airways disease Narrative/Plan: The patient continues on oxygen and is still short of breath, but is improved from her presentation. Continue treatment for admitting service and pulmonary medicine. She is on oxygen, aerosols, and IV steroids. Current Visit: No Status: Acute Code(s): J44.1 - CHRONIC OBSTRUCTIVE PULMONARY DISEASE W (ACUTE) EXACERBATION SNOMED Code(s): 106725121 (2) Pneumonia Narrative/Plan: The patient's chest x-ray had shown a pleural effusion on the left that was new. Given her presentation, pneumonia with inflammatory effusion is more likely. With ongoing treatment effusion is improved. Continue antibiotics for admitting service/pulmonary. I will check immunoglobulin levels, as she may benefit from IVIG, if she is not improving with current treatment Current Visit: Yes Status: Acute Code(s): J18.9 - PNEUMONIA, UNSPECIFIED ORGANISM SNOMED Code(s): 706110729 (3) UTI (urinary tract infection) Narrative/Plan: Urine culture is positive for gram-negative bacilli with ID and susceptibility pending. The patient is on broad-spectrum gram-negative coverage. Final susceptibility awaited for adjustment of antibiotics if needed Current Visit: Yes Status: Acute Code(s): N39.0 - URINARY TRACT INFECTION, SITE NOT SPECIFIED SNOMED Code(s): 85986209 (4) Pancytopenia Narrative/Plan: This is due to chronic marrow compromise from her prior treatment, as well as ongoing maintenance therapy. Acute drop in counts is because of stress of acute infection. Counts are in a safe range. 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 Patient will continue on maintenance treatment, after resolution of her acute problems Current Visit: No Status: Acute Priority: High Code(s): C90.00 - MULTIPLE MYELOMA NOT HAVING ACHIEVED REMISSION SNOMED Code(s): 508399140
--- NOTE | 2018-08-18 13:52 | P.PN ---
Subjective Progress Note Date: 08/18/18 Principal diagnosis: Acute exacerbation of chronic obstructive pulmonary disease 67-year-old female patient with known history of COPD and multiple myeloma who is status post bone marrow transplantation at was performed in May 2018, in addition to congestion heart failure with an ejection fraction of 25-30% and chronic kidney disease with a stage III kidney failure and history of CVA, hypertension, hyperlipidemia and chronic pain in addition to chronic anemia thrombocytopenia. The patient has been maintained on a combination of Revlimid Decadron and Keprolis , and she has had multiple hospitalizations in the past for pulmonary issues/chronic pain. My last encounter with this patient was back in November 2016. At that time I diagnosed this patient having acute dec ompensated congestion heart failure as the patient is known to systolic heart failure with an ejection fraction of 25-30%. She did have pulmonary edema along with some troponin leak in acute atrial fibrillation with rapid ventricular response. She responded nicely to diuretics and she was supported with BiPAP and subsequently she was taken off the BiPAP. Further investigation indicated the patient has severe mitral regurgitation with secondary pulmonary hypertension. The patient was ultimately discharged home. During this current admission, the patient is coming in with some congested cough and unable to bring up any sputum. No chest pain. She did have some emesis a few days ago. She also had some dysuria. On admission, her white cell count was 3.1 with a normal coagulation profile. Her creatinine was at 3.34 with a BUN of 49 and this has been comparable to her previous studies UA. The UA was abnormal with increased white cell count and positive leukocyte esterase and nitrates. Influenza screen was negative. The lactic acid level was at 1.2. The EKG showing a normal sinus rhythm with LVH. Chest x-ray shows hyperinflation. There is evidence of hyper sclerotic foci bilaterally involving the ribs and Chronic interstitial changes questionable left lower lobe pulmonary infiltrates/pneumonia with small effusion. In the ED, there was a concern for left lower lobe pneumonia and UTI. The patient was started on Levaquin. The patient has been reported to have Cipro ALLERGY however she has taken Levaquin in the past without any major difficulties. In the ED, the patient was given a total of 2 L of bolus features was given Motrin and Tylenol. She was admitted to the medical floor. On 08/17/2018 patient is seen in follow-up on medical surgical floor. She states her breathing is improving, but still dyspneic, and wheezy, sounds less congested on today's exam. Afebrile, hemodynamically stable, pulse ox is 96% on 3 L. She started to bring up small amount sputum. Today's labs have been reviewed, serum sodium is 145, potassium is 4.1, chloride is 118, CO2 is 16, BUN is 51, creatinine is 2.77, urinalysis showed moderate amount of leukocyte esterase, clumps of white blood cells, 89 of urine WBCs. Urine cultures pending, blood culture showed no growth. Antibiotic coverage in the form of Levaquin, nebulized bronchodilators and IV steroids. The patient is seen today 08/18/2018 in follow-up on the regular medical floor. She is alert in no acute distress. Breathing better today as compared to yesterday. Still not quite back to her baseline. Maintaining O2 saturations in the upper 90s on 2 L/m per nasal cannula. She's afebrile. Hemodynamically stable. Blood cultures reveal no growth. Urine culture positive for E. coli. Sputum culture pending. White count 1.9. Hemoglobin 8.0. Platelet count 45,000, bicarb 16. Creatinine 2.52. She remains on DuoNeb inhalations, Tessalon Perles, Symbicort, IV Solu-Medrol. Antibiotics in the form of Levaquin. Chest x-ray shows no acute intrathoracic abnormality. There is multiple rib lesions. COPD. Improving left-sided effusion. Objective - Vital Signs Vital signs: Vital Signs Temp 98 F 08/18/18 12:49 Pulse 89 08/18/18 12:49 Resp 18 08/18/18 12:49 BP 143/67 08/18/18 12:49 Pulse Ox 97 08/18/18 12:49 Intake & Output 08/17/18 08/18/18 08/18/18 18:59 06:59 18:59 Intake Total 450 Output Total 1 Balance -1 450 Weight 41 kg Intake: Intake, IV Titration 450 Amount Dextrose 5%-0.9% NaCl 1, 350 000 ml @ 50 mls/hr IV . Q20H [facility] Rx#:[id number] Levofloxacin 500Mg-D5w 100 Pmx 500 mg In Dextrose/ Water 1 100ml.bag @ 100 mls/hr IVPB Q48H [facility] Rx#: [id number] Output: Urine 1 Other: Voiding Method Toilet Toilet Bedside Commode Bedside Commode # Voids 3 # Bowel Movements 1 - Exam GENERAL EXAM: Alert, pleasant, 67-year-old female on 2 L of oxygen, with a pulse ox of 97%, comfortable in no apparent distress. HEAD: Normocephalic/atraumatic. EYES: Normal reaction of pupils, equal size. Conjunctiva pink, sclera white. NOSE: Clear with pink turbinates. THROAT: No erythema or exudates. NECK: No masses, no JVD, no thyroid enlargement, no adenopathy. CHEST: No chest wall deformity. Symmetrical expansion. LUNGS: Equal air entry with no diffuse rhonchi and wheezes CVS: Regular rate and rhythm, normal S1 and S2, no gallops, no murmurs, no rubs ABDOMEN: Soft, nontender. No hepatosplenomegaly, normal bowel sounds, no guarding or rigidity. EXTREMITIES: No clubbing, no edema, no cyanosis, 2+ pulses and upper and lower extremities. MUSCULOSKELETAL: Muscle strength and tone normal. SPINE: No scoliosis or deformity SKIN: No rashes CENTRAL NERVOUS SYSTEM: No focal deficits, tone is normal in all 4 extremities. PSYCHIATRIC: Alert and oriented -3. Appropriate affect. Intact judgment and insight. - Labs CBC & Chem 7: 08/18/18 06:36 08/18/18 06:36 Labs: Abnormal Lab Results - Last 24 Hours (Table) 08/17/18 08/17/18 08/17/18 Range/Units 15:04 15:04 15:04 WBC 1.9 L (3.8-10.6) k/uL RBC 2.89 L (3.80-5.40) m/uL Hgb 8.8 L (11.4-16.0) gm/dL Hct 28.8 L (34.0-46.0) % MCHC 30.5 L (31.0-37.0) g/dL RDW 15.6 H (11.5-15.5) % Plt Count 43 L (150-450) k/uL Lymphocytes # 0.3 L (1.0-4.8) k/uL Retic Count 2.6 H (0.5-2.0) % Chloride 117 H (98-107) mmol/L Carbon Dioxide 17 L (22-30) mmol/L BUN 48 H (7-17) mg/dL Creatinine 2.58 H (0.52-1.04) mg/dL Glucose 105 H (74-99) mg/dL Calcium 6.8 L (8.4-10.2) mg/dL Ferritin 376.1 H (10.0-291.0) ng/mL Total Protein 6.1 L (6.3-8.2) g/dL Total Protein (PEP) 5.5 L (6.2-8.2) g/dL Free [place] LC, Quant 2.27 H (0.33-1.94) mg/dL 08/18/18 08/18/18 Range/Units 06:36 06:36 WBC 1.9 L (3.8-10.6) k/uL RBC 2.59 L (3.80-5.40) m/uL Hgb 8.0 L (11.4-16.0) gm/dL Hct 25.2 L (34.0-46.0) % MCHC (31.0-37.0) g/dL RDW 15.8 H (11.5-15.5) % Plt Count 45 L (150-450) k/uL Lymphocytes # 0.4 L (1.0-4.8) k/uL Retic Count (0.5-2.0) % Chloride 120 H (98-107) mmol/L Carbon Dioxide 16 L (22-30) mmol/L BUN 52 H (7-17) mg/dL Creatinine 2.52 H (0.52-1.04) mg/dL Glucose 104 H (74-99) mg/dL Calcium 6.8 L (8.4-10.2) mg/dL Ferritin (10.0-291.0) ng/mL Total Protein (6.3-8.2) g/dL Total Protein (PEP) (6.2-8.2) g/dL Free [place] LC, Quant (0.33-1.94) mg/dL Microbiology - Last 24 Hours (Table) 08/15/18 19:30 Urine Culture - Final Urine,Voided Escherichia coli 08/17/18 08:00 Gram Stain - Preliminary Sputum 08/15/18 16:17 Blood Culture - Preliminary Blood No Growth after 48 hours Assessment and Plan Assessment: Impression: 1 acute COPD exacerbation with a questionable left lower lobe pneumonia. There is some sclerotic changes involving the ribs bilaterally probably related to her history of myeloma. There is a vague infiltrate in the left lung base with a small effusion. 2 UTI, suspected and the patient was given a dose of Levaquin cultures are still pending for now 3 multiple myeloma maintained on a combination of Revlimid and the patient is post bone marrow transplantation 4 chronic kidney disease stage 4 5 congestion heart failure with an ejection fraction of 25-30% and previous h ospital physician for pulmonary edema and decompensated heart failure 6 previous hospitalization for A. 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 Del Cid. Chest x-ray showing improvement. She is improved today as compared to yesterday. Not quite back to her baseline. We'll continue with the current treatment plan. Increase her activity as tolerated. We will continue to follow make further recommendations based on her clinical status. I, the cosigning physician, performed a history & physical examination of the patient. Lungs sounds with end expiratory wheeze, crackles in left base. Diminished.. Maintaining good O2 saturations in the 90s on 2 L/m per nasal cannula. I discussed the assessment and plan of care with my nurse practitioner, Elida Rasheed. I attest to the above note as dictated by her.
[2018-08-19] MEDS: methylPREDNISolone SOD SUCCI 125 MG/2 ML VIAL IV SCH ×4 (05:03→23:47)
[2018-08-19] MEDS: DEXTROSE 5%-0.9% NACL 1,000 ML IV SCH ×2 (05:18→21:42)
[2018-08-19 05:51] VITALS: RESP 16
[2018-08-19] MEDS: METOPROLOL TARTRATE 12.5 MG TAB PO SCH ×2 (07:53→21:40)
[2018-08-19] MEDS: SODIUM BICARBONATE TAB 650 MG TAB PO SCH ×4 (07:53→21:41)
[2018-08-19] MEDS: POTASSIUM CHLORIDE ER 20 MEQ TAB.ER PO SCH (07:54)
[2018-08-19] MEDS: FAMOTIDINE 20 MG TAB PO SCH (07:54)
[2018-08-19] MEDS: guaiFENesin 600 MG TABLET.ER PO SCH ×2 (07:54→07:58)
[2018-08-19] MEDS: CALCIUM CARB-VIT D 500MG-200UN 1 EACH TAB PO SCH ×2 (07:54→21:40)
[2018-08-19] MEDS: CALCITRIOL 0.25 MCG CAP PO SCH (07:55)
[2018-08-19] MEDS: SYMBICORT 160-4.5 MCG INHALER INHALATION SCH ×2 (07:56→18:57)
[2018-08-19] MEDS: IPRATROPIUM-ALBUTEROL 3 ML NEB INHALATION SCH ×4 (07:56→18:57)
[2018-08-19] MEDS: BENZONATATE 100 MG CAP PO SCH ×3 (07:56→21:40)
[2018-08-19] MEDS: LENALIDOMIDE 10 MG PO SCH (07:58)
[2018-08-19] MEDS: ACYCLOVIR 200 MG CAP PO SCH (08:29)
--- NOTE | 2018-08-19 10:41 | P.PN ---
Subjective Progress Note Date: 08/19/18 Principal diagnosis: Acute exacerbation of chronic obstructive pulmonary disease 67-year-old female patient with known history of COPD and multiple myeloma who is status post bone marrow transplantation at was performed in May 2018, in addition to congestion heart failure with an ejection fraction of 25-30% and chronic kidney disease with a stage III kidney failure and history of CVA, hypertension, hyperlipidemia and chronic pain in addition to chronic anemia thrombocytopenia. The patient has been maintained on a combination of Revlimid Decadron and Keprolis , and she has had multiple hospitalizations in the past for pulmonary issues/chronic pain. My last encounter with this patient was back in November 2016. At that time I diagnosed this patient having acute dec ompensated congestion heart failure as the patient is known to systolic heart failure with an ejection fraction of 25-30%. She did have pulmonary edema along with some troponin leak in acute atrial fibrillation with rapid ventricular response. She responded nicely to diuretics and she was supported with BiPAP and subsequently she was taken off the BiPAP. Further investigation indicated the patient has severe mitral regurgitation with secondary pulmonary hypertension. The patient was ultimately discharged home. During this current admission, the patient is coming in with some congested cough and unable to bring up any sputum. No chest pain. She did have some emesis a few days ago. She also had some dysuria. On admission, her white cell count was 3.1 with a normal coagulation profile. Her creatinine was at 3.34 with a BUN of 49 and this has been comparable to her previous studies UA. The UA was abnormal with increased white cell count and positive leukocyte esterase and nitrates. Influenza screen was negative. The lactic acid level was at 1.2. The EKG showing a normal sinus rhythm with LVH. Chest x-ray shows hyperinflation. There is evidence of hyper sclerotic foci bilaterally involving the ribs and Chronic interstitial changes questionable left lower lobe pulmonary infiltrates/pneumonia with small effusion. In the ED, there was a concern for left lower lobe pneumonia and UTI. The patient was started on Levaquin. The patient has been reported to have Cipro ALLERGY however she has taken Levaquin in the past without any major difficulties. In the ED, the patient was given a total of 2 L of bolus features was given Motrin and Tylenol. She was admitted to the medical floor. On 08/17/2018 patient is seen in follow-up on medical surgical floor. She states her breathing is improving, but still dyspneic, and wheezy, sounds less congested on today's exam. Afebrile, hemodynamically stable, pulse ox is 96% on 3 L. She started to bring up small amount sputum. Today's labs have been reviewed, serum sodium is 145, potassium is 4.1, chloride is 118, CO2 is 16, BUN is 51, creatinine is 2.77, urinalysis showed moderate amount of leukocyte esterase, clumps of white blood cells, 89 of urine WBCs. Urine cultures pending, blood culture showed no growth. Antibiotic coverage in the form of Levaquin, nebulized bronchodilators and IV steroids. The patient is seen today 08/18/2018 in follow-up on the regular medical floor. She is alert in no acute distress. Breathing better today as compared to yesterday. Still not quite back to her baseline. Maintaining O2 saturations in the upper 90s on 2 L/m per nasal cannula. She's afebrile. Hemodynamically stable. Blood cultures reveal no growth. Urine culture positive for E. coli. Sputum culture pending. White count 1.9. Hemoglobin 8.0. Platelet count 45,000, bicarb 16. Creatinine 2.52. She remains on DuoNeb inhalations, Tessalon Perles, Symbicort, IV Solu-Medrol. Antibiotics in the form of Levaquin. Chest x-ray shows no acute intrathoracic abnormality. There is multiple rib lesions. COPD. Improving left-sided effusion. Patient seen today 08/19/2017 in follow-up on the regular medical floor. She is currently resting quite comfortably in bed. Denies any worsening shortness of breath cough or congestion. Not quite back to her baseline. She did rest well last night. Continue good O2 saturations in the upper 90s on 2 L/m per nasal cannula. She's been afebrile. Hemodynamically stable. Blood culture reveals no growth. Sputum culture reveals no growth. Urine culture positive for E. coli. White count 1.9. Hemoglobin 8.0. Creatinine 2.52. Continued on DuoNeb inhalations, Symbicort, IV Solu-Medrol. Antibiotics in the form of Levaquin. Objective - Vital Signs Vital signs: Vital Signs Temp 97.7 F 08/19/18 05:00 Pulse 82 08/19/18 08:07 Resp 16 08/19/18 08:00 BP 137/62 08/19/18 05:00 Pulse Ox 98 08/19/18 07:59 Intake & Output 08/18/18 08/19/18 08/19/18 18:59 06:59 18:59 Intake Total 450 Output Total 1 Balance 450 -1 Weight 41 kg Intake: Intake, IV Titration 450 Amount Dextrose 5%-0.9% NaCl 1, 350 000 ml @ 50 mls/hr IV . Q20H [facility] Rx#:[id number] Levofloxacin 500Mg-D5w 100 Pmx 500 mg In Dextrose/ Water 1 100ml.bag @ 100 mls/hr IVPB Q48H [facility] Rx#: [id number] Output: Urine 1 Other: Voiding Method Toilet Bedside Commode Bedside Commode # Voids 2 - Exam GENERAL EXAM: Alert, pleasant, 67-year-old female on 2 L of oxygen, with a pulse ox of 98%, comfortable in no apparent distress. HEAD: Normocephalic/atraumatic. EYES: Normal reaction of pupils, equal size. Conjunctiva pink, sclera white. NOSE: Clear with pink turbinates. THROAT: No erythema or exudates. NECK: No masses, no JVD, no thyroid enlargement, no adenopathy. CHEST: No chest wall deformity. Symmetrical expansion. LUNGS: Equal air entry with few scattered rhonchi, diminished CVS: Regular rate and rhythm, normal S1 and S2, no gallops, no murmurs, no rubs ABDOMEN: Soft, nontender. No hepatosplenomegaly, normal bowel sounds, no guarding or rigidity. EXTREMITIES: No clubbing, no edema, no cyanosis, 2+ pulses and upper and lower extremities. MUSCULOSKELETAL: Muscle strength and tone normal. SPINE: No scoliosis or deformity SKIN: No rashes CENTRAL NERVOUS SYSTEM: No focal deficits, tone is normal in all 4 extremities. PSYCHIATRIC: Alert and oriented -3. Appropriate affect. Intact judgment and insight. - Labs CBC & Chem 7: 08/18/18 06:36 08/18/18 06:36 Labs: Abnormal Lab Results - Last 24 Hours (Table) 08/17/18 Range/Units 15:04 Free [place] LC, Quant 2.27 H (0.33-1.94) mg/dL Microbiology - Last 24 Hours (Table) 08/17/18 08:00 Gram Stain - Final Sputum Sputum Culture - Final 08/15/18 16:17 Blood Culture - Preliminary Blood No Growth after 72 hours 08/15/18 19:30 Urine Culture - Final Urine,Voided Escherichia coli Assessment and Plan Assessment: Impression: 1 acute COPD exacerbation with a questionable left lower lobe pneumonia. There is some sclerotic changes involving the ribs bilaterally probably related to her history of myeloma. There is a vague infiltrate in the left lung base with a small effusion. 2 UTI positive for E. coli. Currently on Levaquin. 3 multiple myeloma maintained on a combination of Revlimid and the patient is post bone marrow transplantation 4 chronic kidney disease stage 4 5 congestion heart failure with an ejection fraction of 25-30% and previous hospital physician for pulmonary edema and decompensated heart failure 6 previous hospitalization for A. 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 Del Cid. We'll continue with the current treatment plan. Probably home in the a.m. Increase her activity as tolerated. We will continue to follow make further recommendations based on her clinical status. I, the cosigning physician, performed a history & physical examination of the patient. Lungs sounds with end expiratory wheeze, crackles in left base. Diminished.. Maintaining good O2 saturations in the 90s on 2 L/m per nasal cannula. I discussed the assessment and plan of care with my nurse practitioner, Elida Rasheed. I attest to the above note as dictated by her.
--- NOTE | 2018-08-19 11:58 | P.PN ---
Subjective Progress Note Date: 08/19/18 This is a 67-year-old female seen with chronic kidney disease stage IV to 5, who was admitted with pneumonia. She has history of multiple myeloma has had a autologous stem cell transplant in May 2018, 3 months ago. She is on chemotherapy including Revlimid. Previously she was also on dexamethasone and ninlaro( proreosome inhibitor) which have been discontinued. She is also known with atrial fibrillation and congestive heart failure ejection fraction of 25-30%. She has chronic cytopenias. Today on exam she is feeling better less short of breath. She continues to have mild cough with creamy sputum. No nausea vomiting some minimal diarrhea. Appetite is fair. No dizziness no fever chills no abdominal pain. Objective - Vital Signs Vital signs: Vital Signs Temp 97.8 F 08/19/18 11:42 Pulse 80 08/19/18 11:42 Resp 16 08/19/18 11:42 BP 113/55 08/19/18 11:42 Pulse Ox 99 08/19/18 11:42 Intake & Output 08/18/18 08/19/18 08/19/18 18:59 06:59 18:59 Intake Total 450 Output Total 1 Balance 450 -1 Weight 41 kg Intake: Intake, IV Titration 450 Amount Dextrose 5%-0.9% NaCl 1, 350 000 ml @ 50 mls/hr IV . Q20H [facility] Rx#:[id number] Levofloxacin 500Mg-D5w 100 Pmx 500 mg In Dextrose/ Water 1 100ml.bag @ 100 mls/hr IVPB Q48H [facility] Rx#: [id number] Output: Urine 1 Other: Voiding Method Toilet Bedside Commode Bedside Commode # Voids 2 On examination she is awake alert oriented comfortable. HEENT exam no JVP neck is supple no facial asymmetry Lungs are clear to auscultation with occasional coarse crackle good air entry bilaterally. No wheezing Abdomen is soft nontender no organomegaly status masses Heart sounds are unremarkable for any murmur rub gallop Extremity exam shows no edema Neurologically awake alert oriented - Labs CBC & Chem 7: 08/18/18 06:36 08/18/18 06:36 Labs: Microbiology - Last 24 Hours (Table) 08/17/18 08:00 Gram Stain - Final Sputum Sputum Culture - Final 08/15/18 16:17 Blood Culture - Preliminary Blood No Growth after 72 hours 08/15/18 19:30 Urine Culture - Final Urine,Voided Escherichia coli Assessment and Plan Assessment: Impression 1. Chronic kidney disease secondary to multiple myeloma. Baseline creatinine is 2.2 as of 06/25/2018. 2. Admitted with pneumonia and acute kidney injury creatinine went up to 3.34 and is down to 2.52 as of yesterday no labs available today. 3. Pneumonia. On antibiotics. Improved 4. Worsening of chronic metabolic acidosis secondary to diarrhea and acute kidney injury on sodium bicarb 650 3 times a day. Bicarb has been increased to 6 and 54 times a day as of 08/18/2018 5. History of atrial fibrillation, COPD, rheumatoid arthritis. 6. Cytopenias. 7. Anemia getting worse, B12 and folate are normal iron saturation not available. Iron saturation is adequate at 26% Recommendation 1. Continue sodium bicarb 650 g 4 times a day. 2. Repeat labs tomorrow 3. Anemia is getting worse hemoglobin is down from 9.8-8. redo labs tomorrow
[2018-08-19] MEDS: SERTRALINE 100 MG TAB PO SCH (12:35)
[2018-08-19] MEDS ORDERED: LEVOFLOXACIN 500 MG TAB PO SCH (16:00)
--- NOTE | 2018-08-19 23:13 | P.PN ---
Subjective Progress Note Date: 08/18/18 Principal diagnosis: Acute COPD exacerbation This is a pleasant 67 years old female with past medical history of multiple myeloma on combination of Revlimid and dexamethasone and ninlaro, COPD, A. fib RVR, chronic congestive heart failure with ejection fraction 25-30%, chronic k idney disease stage III, previous history of CVA, hypertension, hyperlipidemia, chronic pain syndrome secondary to multiple myeloma, chronic anemia and thrombocytopenia. This time patient Presents with dyspnea of 2 days of duration, patient had common called about one week ago. She has some wet cough but she is unable to bring phlegm up. She denies chest pain or abdominal pain however she has loose bowel movement about 3-4 times per day which is watery. She vomited a couple days ago but not anymore. And she has some burning in her urine suspicious for urinary tract infection. Patient Vitas looks stable, she is saturating 98% on 2 L. She's been afebrile. WBC 3.1, hemoglobin 9.8. Platelets 44. Creatinine 3.34, it was 3.33 on 12/2017. EKG showing normal sinus rhythm at [address]-T abnormality. Chest x-ray: Possible early left lower lobe pneumonia. Urinalysis is suggestive to infection too. Urine culture is pending. In the emergency room patient was given ibuprofen, Tylenol and Levaquin Also she is on Eliquis 2.5 mg, hold that in view of her low platelets at 44 08/17/2018 Patient still dyspneic today, she was able to make some of phlegm with her comfortable and was sent for culture and sensitivity. Chest pain is mild and only with coughing. Diarrhea stopped. Dysuria improved significantly with antibiotics. Her urine cultures, investing for gram-negative bacilli and final culture is pending. Hemodynamically stable and she is afebrile. She saturating 96% on 3 L. Labs from today reviewed. Her creatinine is improving from 3.3 down to 2.7. Influenza is negative. Pulmonary and nephrology team and ports are appreciated. Patient is currently on Levaquin and Solu-Medrol, acyclovir. Eliquis is on hold for thrombocytopenia. Repeat platelet count from today is pending 08/18/2018 Patient denied any complaints of chest pain. Breathing status is improved compared to yesterday but not back to baseline. Still having cough with out much sputum production. Blood cultures showed no growth. Currently saturating well on 2 L nausea cannula oxygen. Urine culture showed E. coli. Patient is being continued on antibiotics in the form of Levaquin. Chest x-ray showed no acute intrathoracic process. Patient does have multiple rib lesions. Improving left-sided effusion. COPD noted on the chest x-ray. Pulmonary is following. No fever no chills. Current medications reviewed. Objective - Vital Signs Vital signs: Vital Signs Temp 98 F 08/18/18 12:49 Pulse 92 08/18/18 16:57 Resp 18 08/18/18 12:49 BP 143/67 08/18/18 12:49 Pulse Ox 97 08/18/18 12:49 Intake & Output 08/18/18 08/18/18 08/19/18 06:59 18:59 06:59 Intake Total 450 Output Total 1 Balance -1 450 Weight 39.236 kg Intake: Intake, IV Titration 450 Amount Dextrose 5%-0.9% NaCl 1, 350 000 ml @ 50 mls/hr IV . Q20H [facility] Rx#:[id number] Levofloxacin 500Mg-D5w 100 Pmx 500 mg In Dextrose/ Water 1 100ml.bag @ 100 mls/hr IVPB Q48H [facility] Rx#: [id number] Output: Urine 1 Other: Voiding Method Toilet Bedside Commode - Exam GENERAL: The patient is alert and oriented x3, not in any acute distress. Cachectic HEENT: Pupils are round and equally reacting to light. EOMI. No scleral icterus. No conjunctival pallor. Normocephalic, atraumatic. No pharyngeal erythema. No thyromegaly. CARDIOVASCULAR: S1 and S2 present. No murmurs, rubs, or gallops. -PULMONARY: mild wheezing, Tachypneic. No crepitation. Rectal scattered rhonchi and crackles. ABDOMEN: Soft, nontender, nondistended, normoactive bowel sounds. No palpable organomegaly. MUSCULOSKELETAL: No joint swelling or deformity. EXTREMITIES: No cyanosis, clubbing, or pedal edema. NEUROLOGICAL: Gross neurological examination did not reveal any focal deficits. SKIN: No rashes. - Labs CBC & Chem 7: 08/18/18 06:36 08/18/18 06:36 Labs: Abnormal Lab Results - Last 24 Hours (Table) 08/17/18 08/18/18 08/18/18 Range/Units 15:04 06:36 06:36 WBC 1.9 L (3.8-10.6) k/uL RBC 2.59 L (3.80-5.40) m/uL Hgb 8.0 L (11.4-16.0) gm/dL Hct 25.2 L (34.0-46.0) % RDW 15.8 H (11.5-15.5) % Plt Count 45 L (150-450) k/uL Lymphocytes # 0.4 L (1.0-4.8) k/uL Chloride 120 H (98-107) mmol/L Carbon Dioxide 16 L (22-30) mmol/L BUN 52 H (7-17) mg/dL Creatinine 2.52 H (0.52-1.04) mg/dL Glucose 104 H (74-99) mg/dL Calcium 6.8 L (8.4-10.2) mg/dL Free [place] LC, Quant 2.27 H (0.33-1.94) mg/dL Microbiology - Last 24 Hours (Table) 08/15/18 16:17 Blood Culture - Preliminary Blood No Growth after 72 hours 08/17/18 08:00 Gram Stain - Preliminary Sputum Sputum Culture - Preliminary 08/15/18 19:30 Urine Culture - Final Urine,Voided Escherichia coli Assessment and Plan Assessment: Acute COPD exacerbation Urinary tract infection, with gram-negative bacilli possible acute lower lobe pneumonia Possible elements of acute kidney injury Thrombocytopenia Diarrhea on admission. Resolved. Mostly reactive History of A. fib with RVR multiple myeloma on chemotherapy Anemia and thrombocytopenia secondary to multiple myeloma Chronic pain syndrome secondary to multiple myeloma Hypertension Hyperlipidemia History of CVA Chronic kidney disease, stage IV History of congestive heart failure, ejection fraction 25-30% History of severe mitral regurgitation and moderate pulmonary hypertension Plan: This is a pleasant 67 years old female who presents with COPD exacerbation and pneumonia. Continue with steroids, bronchodilators, oxygen, and antibiotic. Follow-up culture results. Labs and medication were reviewed.. Continue same treatment. Continue with symptomatic treatment. Resume home medication. Monitor lytes and vitals. DVT and GI prophylaxis. Further recommendations of the clinical course of the patient DVT prophylaxis Eliquis, on hold due to thrombocytopenia GI Prophylaxis: Pepcid PT/OT: Pending Prognosis is guarded Time with Patient: Greater than 30
[2018-08-20] MEDS: methylPREDNISolone SOD SUCCI 125 MG/2 ML VIAL IV SCH (05:52)
[2018-08-20 08:39] LABS: Anisocytosis Slight; HCT 25.6 % (34.0-46.0); HGB 8.3 gm/dL (11.4-16.0); Hypochromasia Slight; MCH 31.5 pg (25.0-35.0); MCHC 32.4 g/dL (31.0-37.0); MCV 97.1 fL (80.0-100.0); Macrocytosis Slight; Mean Platelet Volume 8.9; RBC 2.63 m/uL (3.80-5.40); WBC 2.2 k/uL (3.8-10.6)
[2018-08-20 08:41] LABS: Platelet Count 55 k/uL (150-450)
[2018-08-20 08:57] LABS: Potassium 5.3 mmol/L (3.5-5.1)
--- NOTE | 2018-08-20 08:58 | P.PN ---
Subjective Patient is seen in follow-up for acute kidney injury on chronic kidney disease. Patient has chronic any disease stage IV secondary to chronic interstitial nephritis from NSAID use and multiple myeloma. Creatinine 2.5 to as of August 18. Patient was to good urine output. Oral intake is good. No vomiting or diarrhea. Has a mild cough. Vital signs are stable. General: The patient appeared well nourished and normally developed. HEENT: Head exam is unremarkable. Neck is without jugular venous distension. LUNGS: Lungs are clear to auscultation and percussion. Breath sounds decreased. HEART: Rate and Rhythm are regular. First and second heart sounds normal. No murmurs, rubs or gallops. ABDOMEN: Abdominal exam reveals normal bowel sounds. Non-tender and non- distended. No evidence of peritonitis. EXTREMITITES: No clubbing, cyanosis, or edema. Objective - Vital Signs Vital signs: Vital Signs Temp 97.6 F 08/20/18 05:00 Pulse 61 08/20/18 05:00 Resp 16 08/20/18 05:00 BP 132/61 08/20/18 05:00 Pulse Ox 99 08/20/18 05:00 Intake & Output 08/19/18 08/20/18 08/20/18 18:59 06:59 18:59 Intake Total 1440 Balance 1440 Weight 43 kg Intake: Intake, IV Titration 600 Amount Dextrose 5%-0.9% NaCl 1, 600 000 ml @ 50 mls/hr IV . Q20H [facility] Rx#:[id number] Oral 840 Other: Voiding Method Bedside Commode Bedside Commode # Voids 4 1 - Labs CBC & Chem 7: 08/20/18 08:24 08/18/18 06:36 Labs: Abnormal Lab Results - Last 24 Hours (Table) 08/20/18 Range/Units 08:24 WBC 2.2 L (3.8-10.6) k/uL RBC 2.63 L (3.80-5.40) m/uL Hgb 8.3 L (11.4-16.0) gm/dL Hct 25.6 L (34.0-46.0) % RDW 16.0 H (11.5-15.5) % Plt Count 55 L (150-450) k/uL Microbiology - Last 24 Hours (Table) 08/15/18 16:17 Blood Culture - Preliminary Blood No Growth after 96 hours 08/17/18 08:00 Gram Stain - Final Sputum Sputum Culture - Final Assessment and Plan Plan: Assessment: 1. Acute kidney injury mostly prerenal improved with IV hydration. Creatinine 2.52 to as of August 18. It was 3.34 on admission. 2. Chronic kidney disease stage IV secondary to chronic interstitial nephritis and multiple myeloma. Baseline creatinine in the range of 2.5-3. 3. E. coli UTI. 4. Pneumonia maintained on antibiotics. 5. Systolic CHF with ejection fraction of 25-30%. Compensated. 6. Anemia of chronic kidney disease maintained on Aranesp. 7. Metabolic acidosis secondary to IV fluids and chronic kidney disease. Maintained on oral sodium bicarbonate. 8. Chronic kidney disease mineral bone disease maintained on calcitriol. 9. Multiple myeloma status post stem cell transplant in May 2018. Maintained on chemotherapy per oncology. Plan: Hep-Lock IV fluids. Encouraged oral intake. Morning labs pending. No urgent need for renal replacement therapy at this time. Follow up outpatient in the next 2 weeks.
[2018-08-20] MEDS: SYMBICORT 160-4.5 MCG INHALER INHALATION SCH (08:59)
[2018-08-20] MEDS: IPRATROPIUM-ALBUTEROL 3 ML NEB INHALATION SCH ×2 (08:59→12:21)
[2018-08-20] MEDS: FAMOTIDINE 20 MG TAB PO SCH (10:19)
[2018-08-20] MEDS: SODIUM BICARBONATE TAB 650 MG TAB PO SCH ×2 (10:20→13:16)
[2018-08-20] MEDS: METOPROLOL TARTRATE 12.5 MG TAB PO SCH (10:20)
[2018-08-20] MEDS: guaiFENesin 600 MG TABLET.ER PO SCH (10:20)
[2018-08-20] MEDS: ACYCLOVIR 200 MG CAP PO SCH (10:20)
[2018-08-20] MEDS: CALCITRIOL 0.25 MCG CAP PO SCH (10:20)
[2018-08-20] MEDS: POTASSIUM CHLORIDE ER 20 MEQ TAB.ER PO SCH (10:21)
[2018-08-20] MEDS: BENZONATATE 100 MG CAP PO SCH (10:21)
[2018-08-20] MEDS: CALCIUM CARB-VIT D 500MG-200UN 1 EACH TAB PO SCH (10:22)
[2018-08-20 11:40] LABS: Glucose,Whole Blood 173 mg/dL (75-99)
[2018-08-20] MEDS: LENALIDOMIDE 10 MG PO SCH (11:51)
[2018-08-20 13:10] VITALS: BP 124/58; PULSE 83; TEMP 97.7
[2018-08-20] MEDS: SERTRALINE 100 MG TAB PO SCH (13:16)
[2018-08-20 13:27] LABS: Albumin 3.26 g/dL (3.80-4.90); Gamma Globulin 0.56 g/dL (0.70-1.50)
[2018-08-20 13:48] VITALS: BMI 16.2
--- NOTE | 2018-08-20 14:05 | P.PN ---
Subjective Progress Note Date: 08/20/18 Principal diagnosis: Acute exacerbation of chronic obstructive pulmonary disease 67-year-old female patient with known history of COPD and multiple myeloma who is status post bone marrow transplantation at was performed in May 2018, in addition to congestion heart failure with an ejection fraction of 25-30% and chronic kidney disease with a stage III kidney failure and history of CVA, hypertension, hyperlipidemia and chronic pain in addition to chronic anemia thrombocytopenia. The patient has been maintained on a combination of Revlimid Decadron and Keprolis , and she has had multiple hospitalizations in the past for pulmonary issues/chronic pain. My last encounter with this patient was back in November 2016. At that time I diagnosed this patient having acute dec ompensated congestion heart failure as the patient is known to systolic heart failure with an ejection fraction of 25-30%. She did have pulmonary edema along with some troponin leak in acute atrial fibrillation with rapid ventricular response. She responded nicely to diuretics and she was supported with BiPAP and subsequently she was taken off the BiPAP. Further investigation indicated the patient has severe mitral regurgitation with secondary pulmonary hypertension. The patient was ultimately discharged home. During this current admission, the patient is coming in with some congested cough and unable to bring up any sputum. No chest pain. She did have some emesis a few days ago. She also had some dysuria. On admission, her white cell count was 3.1 with a normal coagulation profile. Her creatinine was at 3.34 with a BUN of 49 and this has been comparable to her previous studies UA. The UA was abnormal with increased white cell count and positive leukocyte esterase and nitrates. Influenza screen was negative. The lactic acid level was at 1.2. The EKG showing a normal sinus rhythm with LVH. Chest x-ray shows hyperinflation. There is evidence of hyper sclerotic foci bilaterally involving the ribs and Chronic interstitial changes questionable left lower lobe pulmonary infiltrates/pneumonia with small effusion. In the ED, there was a concern for left lower lobe pneumonia and UTI. The patient was started on Levaquin. The patient has been reported to have Cipro ALLERGY however she has taken Levaquin in the past without any major difficulties. In the ED, the patient was given a total of 2 L of bolus features was given Motrin and Tylenol. She was admitted to the medical floor. On 08/17/2018 patient is seen in follow-up on medical surgical floor. She states her breathing is improving, but still dyspneic, and wheezy, sounds less congested on today's exam. Afebrile, hemodynamically stable, pulse ox is 96% on 3 L. She started to bring up small amount sputum. Today's labs have been reviewed, serum sodium is 145, potassium is 4.1, chloride is 118, CO2 is 16, BUN is 51, creatinine is 2.77, urinalysis showed moderate amount of leukocyte esterase, clumps of white blood cells, 89 of urine WBCs. Urine cultures pending, blood culture showed no growth. Antibiotic coverage in the form of Levaquin, nebulized bronchodilators and IV steroids. The patient is seen today 08/18/2018 in follow-up on the regular medical floor. She is alert in no acute distress. Breathing better today as compared to yesterday. Still not quite back to her baseline. Maintaining O2 saturations in the upper 90s on 2 L/m per nasal cannula. She's afebrile. Hemodynamically stable. Blood cultures reveal no growth. Urine culture positive for E. coli. Sputum culture pending. White count 1.9. Hemoglobin 8.0. Platelet count 45,000, bicarb 16. Creatinine 2.52. She remains on DuoNeb inhalations, Tessalon Perles, Symbicort, IV Solu-Medrol. Antibiotics in the form of Levaquin. Chest x-ray shows no acute intrathoracic abnormality. There is multiple rib lesions. COPD. Improving left-sided effusion. Patient seen today 08/19/2017 in follow-up on the regular medical floor. She is currently resting quite comfortably in bed. Denies any worsening shortness of breath cough or congestion. Not quite back to her baseline. She did rest well last night. Continue good O2 saturations in the upper 90s on 2 L/m per nasal cannula. She's been afebrile. Hemodynamically stable. Blood culture reveals no growth. Sputum culture reveals no growth. Urine culture positive for E. coli. White count 1.9. Hemoglobin 8.0. Creatinine 2.52. Continued on DuoNeb inhalations, Symbicort, IV Solu-Medrol. Antibiotics in the form of Levaquin. The patient is seen today 08/20/2018 in follow-up on the regular medical floor. She is awake and alert in no acute distress. She is breathing quite a bit better today as compared to yesterday. Continue good O2 saturations in the upper 90s on room air. She's afebrile. Hemodynamically stable. White count 2.2. Hemoglobin 8.3. Creatinine 2.22. Urine culture positive for E. coli. Sputum culture negative. Blood cultures negative. Julieth on DuoNeb inhalations, Symbicort, Tessalon Perles, prednisone. Objective - Vital Signs Vital signs: Vital Signs Temp 97.7 F 08/20/18 13:00 Pulse 83 08/20/18 13:00 Resp 16 08/20/18 13:00 BP 124/58 08/20/18 13:00 Pulse Ox 98 08/20/18 13:00 Intake & Output 08/19/18 08/20/18 08/20/18 18:59 06:59 18:59 Intake Total 1440 Balance 1440 Weight 43 kg 43 kg Intake: Intake, IV Titration 600 Amount Dextrose 5%-0.9% NaCl 1, 600 000 ml @ 50 mls/hr IV . Q20H [facility] Rx#:[id number] Oral 840 Other: Voiding Method Bedside Commode Bedside Commode Bedside Commode # Voids 4 1 - Exam GENERAL EXAM: Alert, pleasant, 67-year-old female on air, comfortable in no apparent distress. HEAD: Normocephalic/atraumatic. EYES: Normal reaction of pupils, equal size. Conjunctiva pink, sclera white. NOSE: Clear with pink turbinates. THROAT: No erythema or exudates. NECK: No masses, no JVD, no thyroid enlargement, no adenopathy. CHEST: No chest wall deformity. Symmetrical expansion. LUNGS: Equal air entry with few scattered rhonchi, diminished CVS: Regular rate and rhythm, normal S1 and S2, no gallops, no murmurs, no rubs ABDOMEN: Soft, nontender. No hepatosplenomegaly, normal bowel sounds, no guard ing or rigidity. EXTREMITIES: No clubbing, no edema, no cyanosis, 2+ pulses and upper and lower extremities. MUSCULOSKELETAL: Muscle strength and tone normal. SPINE: No scoliosis or deformity SKIN: No rashes CENTRAL NERVOUS SYSTEM: No focal deficits, tone is normal in all 4 extremities. PSYCHIATRIC: Alert and oriented -3. Appropriate affect. Intact judgment and insight. - Labs CBC & Chem 7: 06/17/19 08:24 08/20/18 08:24 Labs: Abnormal Lab Results - Last 24 Hours (Table) 08/17/18 08/20/18 08/20/18 Range/Units 15:04 08:24 08:24 WBC 2.2 L (3.8-10.6) k/uL RBC 2.63 L (3.80-5.40) m/uL Hgb 8.3 L (11.4-16.0) gm/dL Hct 25.6 L (34.0-46.0) % RDW 16.0 H (11.5-15.5) % Plt Count 55 L (150-450) k/uL Potassium 5.3 H (3.5-5.1) mmol/L Chloride 120 H (98-107) mmol/L Carbon Dioxide 18 L (22-30) mmol/L BUN 49 H (7-17) mg/dL Creatinine 2.22 H (0.52-1.04) mg/dL Glucose 114 H (74-99) mg/dL POC Glucose (mg/dL) (75-99) mg/dL Calcium 7.0 L (8.4-10.2) mg/dL Albumin (PEP) 3.26 L (3.80-4.90) g/dL Eyxvf-7-Dkdkmhlts 0.63 H (0.10-0.40) g/dL Beta Globulins 0.42 L (0.60-1.30) g/dL Gamma Globulins 0.56 L (0.70-1.50) g/dL 08/20/18 Range/Units 11:36 WBC (3.8-10.6) k/uL RBC (3.80-5.40) m/uL Hgb (11.4-16.0) gm/dL Hct (34.0-46.0) % RDW (11.5-15.5) % Plt Count (150-450) k/uL Potassium (3.5-5.1) mmol/L Chloride (98-107) mmol/L Carbon Dioxide (22-30) mmol/L BUN (7-17) mg/dL Creatinine (0.52-1.04) mg/dL Glucose (74-99) mg/dL POC Glucose (mg/dL) 173 H (75-99) mg/dL Calcium (8.4-10.2) mg/dL Albumin (PEP) (3.80-4.90) g/dL Efkiz-9-Olfabfbos (0.10-0.40) g/dL Beta Globulins (0.60-1.30) g/dL Gamma Globulins (0.70-1.50) g/dL Microbiology - Last 24 Hours (Table) 08/15/18 16:17 Blood Culture - Preliminary Blood No Growth after 96 hours 08/17/18 08:00 Gram Stain - Final Sputum Sputum Culture - Final Assessment and Plan Assessment: Impression: 1 acute COPD exacerbation with a questionable left lower lobe pneumonia. There is some sclerotic changes involving the ribs bilaterally probably related to her history of myeloma. There is a vague infiltrate in the left lung base with a small effusion. 2 UTI positive for E. coli. Currently on Levaquin. 3 multiple myeloma maintained on a combination of Revlimid and the patient is post bone marrow transplantation 4 chronic kidney disease stage 4 5 congestion heart failure with an ejection fraction of 25-30% and previous hospital physician for pulmonary edema and decompensated heart failure 6 previous hospitalization for A. 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 Sainz. She is cleared for discharge from the pulmonary standpoint. Complete a prednisone taper. Complete a course of antibiotics. Follow-up in our office in 1-2 weeks' time. She is encouraged to call sooner with any recurrence of symptoms or other questions or concerns. I, the cosigning physician, performed a history & physical examination of the patient. Lungs sounds with end expiratory wheeze, crackles in left base. Diminished.. Maintaining good O2 saturations in the 90s on room air. I discussed the assessment and plan of care with my nurse practitioner, Elida Rasheed. I attest to the above note as dictated by her.
--- NOTE | 2018-08-20 14:44 | P.PN ---
Subjective Progress Note Date: 08/20/18 Principal diagnosis: On maintenance treatment for MM, COPD exacerbation IN f/u pt states feeling much better then on admit, breathing is comfortable, she can ambulate, cough has nearly subsided, no purulent sputum, fevers, she did not have any symptoms of UTI other then mild dysuria, that has resolve, no hematuria Objective - Vital Signs Vital signs: Vital Signs Temp 97.7 F 08/20/18 13:00 Pulse 83 08/20/18 13:00 Resp 16 08/20/18 13:00 BP 124/58 08/20/18 13:00 Pulse Ox 98 08/20/18 13:00 Intake & Output 08/19/18 08/20/18 08/20/18 18:59 06:59 18:59 Intake Total 1440 Balance 1440 Weight 43 kg 43 kg Intake: Intake, IV Titration 600 Amount Dextrose 5%-0.9% NaCl 1, 600 000 ml @ 50 mls/hr IV . Q20H [facility] Rx#:[id number] Oral 840 Other: Voiding Method Bedside Commode Bedside Commode Bedside Commode # Voids 4 1 - Constitutional General appearance: Present: cooperative, no acute distress, thin - EENT Eyes: Present: anicteric sclerae, EOMI ENT: Present: hearing grossly normal, normal oropharynx - Neck Neck: Absent: lymphadenopathy, normal ROM, other, rigidity, stridor, thyromegaly - Respiratory Respiratory: right: wheezing, bilateral: CTA, diminished - Cardiovascular Rhythm: regular Heart sounds: normal: S1, S2 Abnormal Heart Sounds: Absent: systolic murmur, diastolic murmur, rub, S3 Gallop, S4 Gallop, click, other - Peripheral edema leg Peripheral Edema: bilateral: None - Gastrointestinal General gastrointestinal: Present: normal bowel sounds, soft. Absent: absent bowel sounds, decreased bowel sounds, distended, hepatomegaly, hyperactive bowel sounds, organomegaly, rigid, scaphoid, splenomegaly, tenderness, umbilical herni a, ventral hernia - Musculoskeletal Musculoskeletal: Present: strength equal bilaterally - Psychiatric Psychiatric: Present: A&O x's 3, appropriate affect, intact judgment & insight - Labs CBC & Chem 7: 08/20/18 08:24 08/20/18 08:24 Labs: Abnormal Lab Results - Last 24 Hours (Table) 08/17/18 08/20/18 08/20/18 Range/Units 15:04 08:24 08:24 WBC 2.2 L (3.8-10.6) k/uL RBC 2.63 L (3.80-5.40) m/uL Hgb 8.3 L (11.4-16.0) gm/dL Hct 25.6 L (34.0-46.0) % RDW 16.0 H (11.5-15.5) % Plt Count 55 L (150-450) k/uL Potassium 5.3 H (3.5-5.1) mmol/L Chloride 120 H (98-107) mmol/L Carbon Dioxide 18 L (22-30) mmol/L BUN 49 H (7-17) mg/dL Creatinine 2.22 H (0.52-1.04) mg/dL Glucose 114 H (74-99) mg/dL POC Glucose (mg/dL) (75-99) mg/dL Calcium 7.0 L (8.4-10.2) mg/dL Albumin (PEP) 3.26 L (3.80-4.90) g/dL Rssry-0-Ohczfwphf 0.63 H (0.10-0.40) g/dL Beta Globulins 0.42 L (0.60-1.30) g/dL Gamma Globulins 0.56 L (0.70-1.50) g/dL 08/20/18 Range/Units 11:36 WBC (3.8-10.6) k/uL RBC (3.80-5.40) m/uL Hgb (11.4-16.0) gm/dL Hct (34.0-46.0) % RDW (11.5-15.5) % Plt Count (150-450) k/uL Potassium (3.5-5.1) mmol/L Chloride (98-107) mmol/L Carbon Dioxide (22-30) mmol/L BUN (7-17) mg/dL Creatinine (0.52-1.04) mg/dL Glucose (74-99) mg/dL POC Glucose (mg/dL) 173 H (75-99) mg/dL Calcium (8.4-10.2) mg/dL Albumin (PEP) (3.80-4.90) g/dL Zjeth-9-Nkiuemban (0.10-0.40) g/dL Beta Globulins (0.60-1.30) g/dL Gamma Globulins (0.70-1.50) g/dL Microbiology - Last 24 Hours (Table) 08/15/18 16:17 Blood Culture - Preliminary Blood No Growth after 96 hours Assessment and Plan (1) COPD exacerbation Narrative/Plan: Treated by Pulmonary-pt symptoms have resolved Current Visit: Yes Status: Acute Priority: High Code(s): J44.1 - CHRONIC OBSTRUCTIVE PULMONARY DISEASE W (ACUTE) EXACERBATION SNOMED Code(s): 711179145 (2) Pancytopenia Narrative/Plan: Secondary to Auto-SCT and maintenance Revlimid, counts are stable for her Current Visit: Yes Status: Chronic Priority: Medium Code(s): D61.818 - OTHER PANCYTOPENIA SNOMED Code(s): 195771534 (3) UTI (urinary tract infection) Narrative/Plan: Asymptomatic, pt is on abx therapy for the same Current Visit: Yes Status: Acute Priority: High Code(s): N39.0 - URINARY TRACT INFECTION, SITE NOT SPECIFIED SNOMED Code(s): 03626845 (4) Myeloma kidney disease Narrative/Plan: Followed by Nephrology, stable Current Visit: No Status: Chronic Priority: High Code(s): C90.00 - MULTIPLE MYELOMA NOT HAVING ACHIEVED REMISSION; N28.89 - OTHER SPECIFIED DISORDERS OF KIDNEY AND URETER SNOMED Code(s): 97712549 (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 Pt instructed to complete abx as prescribed then resume revlimid the next day. She verbalized understanding. Current Visit: No Status: Chronic Priority: Low Code(s): C90.00 - MULTIPLE MYELOMA NOT HAVING ACHIEVED REMISSION SNOMED Code(s): 563700298
[2018-08-21] MEDS ORDERED: predniSONE 50 MG TAB PO SCH (09:00)
== END 2018-08-20 15:18 | disposition home or self-care (01) | DRG 190 ==
LOC: EC 15:32 → INTOOBSV 19:36 → 3NMEDONC 19:36 → OBSVTOIN 08-16 13:30
PROVIDERS: ADMIT Internal Medicine; ATTEND Internal Medicine
DX: J44.0 Chronic obstructive pulmonary disease with (acute) lower respiratory infection (principal); J18.1 Lobar pneumonia, unspecified organism; I69.354 Hemiplegia and hemiparesis following cerebral infarction affecting left non-dominant side; N11.9 Chronic tubulo-interstitial nephritis, unspecified; N17.9 Acute kidney failure, unspecified; E87.2 Acidosis; C90.00 Multiple myeloma not having achieved remission; D61.818 Other pancytopenia; I13.2 Hypertensive heart and chronic kidney disease with heart failure and with stage 5 chronic kidney disease, or end stage renal disease; I42.9 Cardiomyopathy, unspecified; I50.22 Chronic systolic (congestive) heart failure; N18.5 Chronic kidney disease, stage 5; Z94.81 Bone marrow transplant status; Z94.84 Stem cells transplant status; J44.1 Chronic obstructive pulmonary disease with (acute) exacerbation; M06.9 Rheumatoid arthritis, unspecified; M89.8X9 Other specified disorders of bone, unspecified site; B96.20 Unspecified Escherichia coli [E. coli] as the cause of diseases classified elsewhere; D63.1 Anemia in chronic kidney disease; D69.59 Other secondary thrombocytopenia; E78.5 Hyperlipidemia, unspecified; F41.9 Anxiety disorder, unspecified; G89.4 Chronic pain syndrome; H35.30 Unspecified macular degeneration; H40.9 Unspecified glaucoma; I27.29 Other secondary pulmonary hypertension; I34.0 Nonrheumatic mitral (valve) insufficiency; I48.91 Unspecified atrial fibrillation; Z79.01 Long term (current) use of anticoagulants; Z79.52 Long term (current) use of systemic steroids; Z80.1 Family history of malignant neoplasm of trachea, bronchus and lung; Z85.41 Personal history of malignant neoplasm of cervix uteri; Z87.891 Personal history of nicotine dependence; Z88.1 Allergy status to other antibiotic agents; Z92.21 Personal history of antineoplastic chemotherapy; Z98.1 Arthrodesis status; Z98.82 Breast implant status; Z79.899 Other long term (current) drug therapy; Z88.5 Allergy status to narcotic agent; Z88.2 Allergy status to sulfonamides; Z88.8 Allergy status to other drugs, medicaments and biological substances; R19.7 Diarrhea, unspecified
CPT/HCPCS: 36415; 71046; 80048; 80053; 81001; 82607; 82728; 82746; 83540; 83550; 83605; 83615; 83735; 83883; 84165; 85025; 85027; 85045; 85610; 85730; 87040; 87070; 87077; 87086; 87186; 87205; 87502; 93005; 94640; 94760; 96365; 96366; 96367; 99285

== ENCOUNTER 2018-09-10 16:54 | Inpatient (IN) | payer MEDICARE ==
[2018-09-10] MEDS ORDERED: NALOXONE 0.4 MG/ML 1 ML VIAL IV PRN (19:16)
--- NOTE | 2018-09-10 19:31 | ED ---
General Adult HPI - General Chief complaint: Recheck/Abnormal Lab/Rx Stated complaint: abn labs Time Seen by Provider: 09/10/18 19:04 Source: patient Mode of arrival: wheelchair Limitations: no limitations - History of Present Illness Initial comments: Patient is 67-year-old female with multiple myeloma that presents to the emergency department for a blood transfusion. Patient reports that she saw Dr. Larson with a collected her blood and noticed her hemoglobin was 6.6. Patient was instructed to directly come to the emergency department for a blood transfusion. Patient reports feeling weak and slightly nauseous but denies vomiting. Patient reports fatigue and wants to sleep. Patient reports daily treatment for multiple myeloma. - Related Data Home Medications Medication Instructions Recorded Confirmed Sertraline [Zoloft] 200 mg PO AC-LUNCH 01/28/17 08/15/18 Calcitriol 0.25 mcg PO DAILY 10/23/17 08/15/18 Acyclovir 400 mg PO DAILY 12/28/17 08/15/18 Calcium Carb-Vit D 500Mg-200Un 1 tab PO BID 08/15/18 08/15/18 [Oscal 500+D] Fluticasone/Vilanterol [Breo 1 inhalation INHALATION RT-BID 08/15/18 08/15/18 Ellipta 200-25 Mcg INH] Lenalidomide [Revlimid] 10 mg PO DAILY 08/15/18 08/15/18 Metoprolol Tartrate [Lopressor] 12.5 mg PO BID 08/15/18 08/15/18 Sodium Bicarbonate Tab 650 mg PO TID 08/15/18 08/15/18 guaiFENesin [Mucinex] 1,200 mg PO DAILY 08/15/18 08/15/18 Previous Rx's Medication Instructions Recorded Potassium Chloride [Klor-Con 20] 20 meq PO DAILY #30 tab 11/14/17 Apixaban [Eliquis] 2.5 mg PO BID tablet 12/30/17 Budesonide-Formot 160-4.5 Mcg 2 puff INHALATION RT-BID #1 each 08/20/18 [Symbicort 160-4.5 Mcg Inhaler] Darbepoetin Jamel [Aranesp] 40 mcg SQ Q7D syringe 08/20/18 Levofloxacin [Levaquin] 500 mg PO Q48H #3 tab 08/20/18 predniSONE See Taper PO DIRECTED #30 tab 08/20/18 Allergies Allergy/AdvReac Type Severity Reaction Status Date / Time Penicillins Allergy Unknown Unknown Verified 09/10/18 18:44 Cephalosporins Allergy Unknown Verified 09/10/18 18:44 ciprofloxacin HCl Allergy Lip Verified 09/10/18 18:44 [From Cipro] swelling, itching codeine Allergy Unknown Verified 09/10/18 18:44 Sulfa (Sulfonamide Allergy Unknown Verified 09/10/18 18:44 Antibiotics) Review of Systems ROS Statement: Those systems with pertinent positive or pertinent negative responses have been documented in the HPI. ROS Other: All systems not noted in ROS Statement are negative. Past Medical History Past Medical History: Atrial Fibrillation, Atrial Flutter, Cancer, Heart Failure, COPD, CVA/TIA, Eye Disorder, Hyperlipidemia, Hypertension, Osteoarthritis (OA), Renal Disease, Rheumatoid Arthritis (RA) Additional Past Medical History / Comment(s): Pt admitted 11/09/17 with acute on chronic CHF exacerbation, aflutter/afib with RVR/acute hypoxic respiratory failure/vavluar disease, pulmonary htn. 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 Past Anesthesia/Blood Transfusion Reactions: No Reported Reaction Additional Past Anesthesia/Blood Transfusion Reaction / Comment(s): Pt has received blood in past and last time 10/2017 developed rash and was tx with steroids. Past Psychological History: No Psychological Hx Reported Smoking Status: Former smoker Past Alcohol Use History: None Reported Past Drug Use History: None Reported - Past Family History Father Family Medical History: Pneumonia, Prostate Disorder Additional Family Medical History / Comment(s): FATHER RECENTLY FROM PNEUMONIA. HE WAS 100 YRS OLD. Mother Family Medical History: Cancer Additional Family Medical History / Comment(s): LUNG CANCER. MOTHER WAS A SMOKER. General Exam Limitations: no limitations General appearance: alert, in no apparent distress Head exam: Present: atraumatic, normocephalic, normal inspection Eye exam: Present: normal appearance, PERRL, EOMI Pupils: Present: normal accommodation ENT exam: Present: normal exam, mucous membranes dry, mucous membranes moist, normal external ear exam Neck exam: Present: normal inspection, full ROM Respiratory exam: Present: normal lung sounds bilaterally Cardiovascular Exam: Present: regular rate, normal rhythm, normal heart sounds Extremities exam: Present: normal inspection, full ROM Back exam: Present: normal inspection, full ROM Neurological exam: Present: alert, oriented X3 Psychiatric exam: Present: normal affect, normal mood Skin exam: Present: warm, intact, normal color Course Vital Signs 09/10/18 18:42 Temperature 98 F Pulse Rate 93 Respiratory 16 Rate Blood Pressure 105/64 O2 Sat by Pulse 97 Oximetry Medical Decision Making - Medical Decision Making Patient is a 67-year-old female presents emergency Department for blood transfusion. Patient will be admitted for further management. Packed red blood cells and the screen were ordered. I spoke with case management to speed of the admission process. The admitting physician is Dr. Serrano. Case discussed with Dr. Ahuja Who is in agreement with the treatment plan. Disposition Clinical Impression: Anemia Disposition: ADMITTED IP TO THIS HOSP Condition: Stable Instructions (If sedation given, give patient instructions): Anemia (ED) Additional Instructions: Patient will be admitted. Is patient prescribed a controlled substance at d/c from ED?: No Referrals: Kirby Villalobos DO [Primary Care Provider] - 1-2 days Time of Disposition: 19:30
[2018-09-10 20:34] LABS: MCH 29.8 pg (25.0-35.0); MCHC 33.3 g/dL (31.0-37.0); Mean Platelet Volume 8.6; Poikilocytosis Slight; RBC 2.11 m/uL (3.80-5.40); RDW 15.8 % (11.5-15.5)
[2018-09-10 20:37] LABS: WBC 0.6 k/uL (3.8-10.6)
[2018-09-10 20:38] LABS: HCT 18.9 % (34.0-46.0); HGB 6.3 gm/dL (11.4-16.0); MCV 89.6 fL (80.0-100.0)
[2018-09-10 20:44] LABS: Albumin 3.4 g/dL (3.5-5.0); Magnesium 2.2 mg/dL (1.6-2.3); Phosphorus 4.4 mg/dL (2.5-4.5); Potassium 4.3 mmol/L (3.5-5.1); Total Bilirubin 0.8 mg/dL (0.2-1.3); Total Protein 5.9 g/dL (6.3-8.2)
[2018-09-10 20:51] LABS: Platelet Count 6 k/uL (150-450)
[2018-09-10] MEDS: ACYCLOVIR 200 MG CAP PO SCH (23:34)
[2018-09-10] MEDS: CALCIUM CARB-VIT D 500MG-200UN 1 EACH TAB PO SCH (23:37)
[2018-09-10] MEDS: guaiFENesin 600 MG TABLET.ER PO SCH (23:37)
[2018-09-10] MEDS: APIXABAN 2.5 MG TABLET PO SCH (23:37)
[2018-09-10] MEDS: Lenalidomide [Revlimid] 10 MG PO SCH (23:37)
[2018-09-10] MEDS: CALCITRIOL 0.25 MCG CAP PO SCH (23:37)
[2018-09-10] MEDS: SODIUM BICARBONATE TAB 650 MG TAB PO SCH (23:38)
[2018-09-10] MEDS: POTASSIUM CHLORIDE ER 20 MEQ TAB.ER PO SCH (23:38)
[2018-09-10] MEDS: METOPROLOL TARTRATE 12.5 MG TAB PO SCH (23:38)
[2018-09-11] MEDS ORDERED: NON-FORMULARY DRUG (Fluticasone/Vilanterol [Breo Ellipta 200-25 Mcg Inh] 1 INHALATION) INHALATION SCH (08:00)
[2018-09-11] MEDS: APIXABAN 2.5 MG TABLET PO SCH (08:11)
[2018-09-11] MEDS: CALCIUM CARB-VIT D 500MG-200UN 1 EACH TAB PO SCH ×2 (08:13→21:17)
[2018-09-11] MEDS: METOPROLOL TARTRATE 12.5 MG TAB PO SCH ×2 (08:13→21:17)
[2018-09-11] MEDS: SODIUM BICARBONATE TAB 650 MG TAB PO SCH ×3 (08:13→22:07)
[2018-09-11] MEDS: SYMBICORT 160-4.5 MCG INHALER INHALATION SCH ×2 (09:26→19:59)
[2018-09-11 09:31] LABS: Anisocytosis Slight; HCT 21.7 % (34.0-46.0); HGB 7.6 gm/dL (11.4-16.0); MCH 31.1 pg (25.0-35.0); MCHC 34.9 g/dL (31.0-37.0); MCV 89.2 fL (80.0-100.0); Mean Platelet Volume 7.4; Poikilocytosis Slight; RBC 2.43 m/uL (3.80-5.40); RDW 16.2 % (11.5-15.5)
[2018-09-11 09:54] LABS: Platelet Count 5 k/uL (150-450); WBC 0.7 k/uL (3.8-10.6)
[2018-09-11 09:59] LABS: Albumin 2.9 g/dL (3.5-5.0); Potassium 3.8 mmol/L (3.5-5.1); Total Bilirubin 0.8 mg/dL (0.2-1.3); Total Protein 5.3 g/dL (6.3-8.2)
[2018-09-11] MEDS: SERTRALINE 100 MG TAB PO SCH (13:07)
--- NOTE | 2018-09-11 13:21 | P.CONS ---
History of Present Illness - Reason for Consult Consult date: 09/11/18 Multiple Myeloma Requesting physician: Christopher Serrano - Chief Complaint Anemia and thrombocytopenia - History of Present Illness Ms. Coleman is a very pleasant female pt of Dr. Larson who was initially seen in consult at [facility] 04/07/17, admitted with c/o general malaise x 4-6 weeks, decreased appetite, 8-10 lb wt. loss, decreased endurance, intermittent nausea, increased bone pain in the bilateral rib area, Cr. 2.9 (baseline around 2), Ca++ 13.4 and anemia, previously ordered labs by Nephrology outpatient 03/31/17 showed a markedly elevated light chain at 4900 mg/dL with lambda light chains normal, SPEP negative. Treated with IV hydration and IV bisphosphonates, did have blood transfusion. 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 She was started on Rev/Velcade/Dex at the end of Apr. She has had multiple hospitalizations over the last 4 months for COPD exacerbations and bone pain. Pt completed 6 cycles. F/U labs showed progressively worsening renal function and increasing light chain. Pt was started on Kyprolis/Revlimid/Dex and has 1st 2 week cycle, which she completed 10/17. She was recentlt admitted on 10/23/17 with progressive decline , weak, eating and drinking less and less due to nausea, some vomiting, diarrhea a few times a day, she then had fever so was directed to hospital. She is uncomfortable when seen, fever on admit, feels warm now, denies oral irritation, she has congested cough, small amt of sputum, no hemoptysis, chest pain, overt ELIEZER, abd pain, distension, dysuria, hematuria, black or bloody stool, swelling or pain. She was treated with antibiotics and developed a systemic raised rash, treated supportively. Seen after admission and supportive treatment with IV hydration, antiemetics, benadryl, and topical steroids was continued. Her kyprolis was given as scheduled, last 11/02/17, along with her monthly XGEVA on 10/30/17 and continued on Revlimid. Her last creatinine was 3.56 in office which did not vary much from previous in September She has most recently been doing well on maintenance revlimid and Xgeva. She was sent to emergency for further evaluation when she presented yesterday and her platlet count 7, hemoglobin 6.6. Review of Systems 14 point review of systems was assessed and completed in all negative except for HPI Past Medical History Past Medical History: Atrial Fibrillation, Atrial Flutter, Cancer, Heart Failure, COPD, CVA/TIA, Eye Disorder, Hyperlipidemia, Hypertension, Osteoarthritis (OA), Renal Disease, Rheumatoid Arthritis (RA) Additional Past Medical History / Comment(s): Pt admitted 11/09/17 with acute on chronic CHF exacerbation, aflutter/afib with RVR/acute hypoxic respiratory fail ure/vavluar disease, pulmonary htn. 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 Past Anesthesia/Blood Transfusion Reactions: No Reported Reaction Additional Past Anesthesia/Blood Transfusion Reaction / Comm: Pt has received blood in past and last time 10/2017 developed rash and was tx with steroids. Pt had tranfusion in May 2018 and reports no reaction. Past Psychological History: No Psychological Hx Reported Additional Psychological History / Comment(s): Pt resides with her spouse. She ambulates with a cane. She no longer drives, since her cancer diagnosis. She gets to appts by family, friends or takes a cab, if instrumentation and controls technician is available she takes her. Smoking Status: Former smoker Past Alcohol Use History: None Reported Additional Past Alcohol Use History / Comment(s): started smoking at age 19 smoked just under 1 ppd. quit 2014 Past Drug Use History: None Reported - Past Family History Father Family Medical History: Pneumonia, Prostate Disorder Additional Family Medical History / Comment(s): FATHER RECENTLY FROM PNEUMONIA. HE WAS 100 YRS OLD. Mother Family Medical History: Cancer Additional Family Medical History / Comment(s): LUNG CANCER. MOTHER WAS A SMOKER. Medications and Allergies Home Medications Medication Instructions Recorded Confirmed Type Sertraline [Zoloft] 200 mg PO AC-LUNCH 01/28/17 09/10/18 History Calcitriol 0.25 mcg PO HS 10/23/17 09/10/18 History Acyclovir 400 mg PO HS 12/28/17 09/10/18 History Apixaban [Eliquis] 2.5 mg PO BID tablet 12/30/17 09/10/18 Rx Calcium Carb-Vit D 500Mg-200Un 1 tab PO BID 08/15/18 09/10/18 History [Oscal 500+D] Fluticasone/Vilanterol [Breo 1 inhalation INHALATION RT-BID 08/15/18 09/10/18 History Ellipta 200-25 Mcg INH] Lenalidomide [Revlimid] 10 mg PO HS 08/15/18 09/10/18 History Metoprolol Tartrate [Lopressor] 12.5 mg PO BID 08/15/18 09/10/18 History Sodium Bicarbonate Tab 650 mg PO TID 08/15/18 09/10/18 History guaiFENesin [Mucinex] 1,200 mg PO HS 08/15/18 09/10/18 History Budesonide-Formot 160-4.5 Mcg 2 puff INHALATION RT-BID #1 each 08/20/18 09/10/18 Rx [Symbicort 160-4.5 Mcg Inhaler] Potassium Chloride [Klor-Con 20] 20 meq PO HS 09/10/18 09/10/18 History Allergies Allergy/AdvReac Type Severity Reaction Status Date / Time Penicillins Allergy Unknown Unknown Verified 09/10/18 19:50 Cephalosporins Allergy Unknown Verified 09/10/18 19:50 ciprofloxacin HCl Allergy Lip Verified 09/10/18 19:50 [From Cipro] swelling, itching codeine Allergy Unknown Verified 09/10/18 19:50 Sulfa (Sulfonamide Allergy Unknown Verified 09/10/18 19:50 Antibiotics) Physical Exam Vitals: Vital Signs Temp Pulse Pulse Resp BP BP Pulse Ox 09/11/18 05:39 97.9 F 85 16 109/56 98 09/11/18 03:28 98.2 F 80 16 106/58 99 09/11/18 01:11 98.7 F 96 16 117/59 99 09/11/18 00:41 98.3 F 94 16 120/51 95 09/11/18 00:31 98.1 F 95 18 116/52 95 09/11/18 00:00 18 09/10/18 21:18 97.9 F 89 16 106/58 96 09/10/18 20:28 98 F 84 18 100/58 97 09/10/18 18:42 98 F 93 16 105/64 97 Intake and Output 09/10/18 09/11/18 09/11/18 22:59 06:59 14:59 Intake Total 310 Balance 310 Intake: Blood Product 310 Rc Irr As1 Unit 310 [id number] Other: Voiding Method Toilet # Voids 0 1 Weight 39.463 kg 37.285 kg General: Chronically ill appearing, malnourished Head: Normocytic, Atraumatic Neck: Supple Mouth: No Lesions, No Thrush Eyes: Non-sclerotic No Palpable cervical, supraclavicular, axillary adenopathy Heart: Regular Rate, Regular Rhythm Lungs: Clear to Ausculations, No Wheeze, No Rhonchi, Diminishe bilateral lower lobes, No increased respiratory effort noted Abdomen: Soft, Non-Distended, Non-Tended, BSx4 Extremities: No Edema, Equal Strength Neurological: No Focal Defects: No sensory or motor deficits noted Psych: Calm and cooperative Results CBC & Chem 7: 09/11/18 08:46 09/11/18 08:46 Labs: Abnormal Lab Results - Last 24 Hours (Table) 09/10/18 09/10/18 09/10/18 Range/Units 20:12 20:12 20:12 WBC 0.6 L* (3.8-10.6) k/uL RBC 2.11 L (3.80-5.40) m/uL Hgb 6.3 L* D (11.4-16.0) gm/dL Hct 18.9 L* (34.0-46.0) % RDW 15.8 H (11.5-15.5) % Plt Count 6 L* D (150-450) k/uL Sodium 136 L (137-145) mmol/L Carbon Dioxide 21 L (22-30) mmol/L BUN 71 H (7-17) mg/dL Creatinine 3.44 H (0.52-1.04) mg/dL Calcium (8.4-10.2) mg/dL Total Protein 5.9 L (6.3-8.2) g/dL Albumin 3.4 L (3.5-5.0) g/dL Crossmatch See Detail 09/11/18 09/11/18 Range/Units 08:46 08:46 WBC 0.7 L* (3.8-10.6) k/uL RBC 2.43 L (3.80-5.40) m/uL Hgb 7.6 L (11.4-16.0) gm/dL Hct 21.7 L (34.0-46.0) % RDW 16.2 H (11.5-15.5) % Plt Count 5 L* (150-450) k/uL Sodium (137-145) mmol/L Carbon Dioxide (22-30) mmol/L BUN 62 H (7-17) mg/dL Creatinine 3.19 H (0.52-1.04) mg/dL Calcium 8.0 L (8.4-10.2) mg/dL Total Protein 5.3 L (6.3-8.2) g/dL Albumin 2.9 L (3.5-5.0) g/dL Crossmatch Assessment and Plan Plan: Assessment and Recommendations: Multiple Myeloma: - Revlimid and Xgeva maintenance - Hold Revlimid for thrombocytopenia Pancytopenia: - Secondary to chemotherapy and exacerbated with acute illness - Hold Anticoag untill platelet greater than 50K -Transfuse PRBC less than 7, and platelets less than 10 Acute on Chronic Renal Failure: - Nephrology to follow
--- NOTE | 2018-09-11 16:45 | P.HPIM ---
History of Present Illness H&P Date: 09/11/18 Chief Complaint: Low hemoglobin History of presenting complaint: This is a very pleasant 67-year-old patient of Dr. Villalobos. Chronic stable medical conditions include paroxysmal atrial flutter fibrillation, COPD, CHF with an EF of 50-55%, tricuspid and mitral regurgitation, secondary pulmonary hypertension, chronic kidney disease stage IV, hypertension, hyperlipidemia,. P atient also being treated for multiple myeloma. Patient had gone down to see her physician/ophthalmologist Dr. Larson and was found to have a hemoglobin of 6.6. Patient with therefore sent to the hospital. Patient did receive a unit of blood. Patient has been feeling weak and tired. Dizzy lightheaded. Appetite has been low. Patient is also on REVLIMID that she takes daily. Otherwise tired and rundown. Denies any fever and chills. Review of systems: GEN.: Weak tired loss of appetite EYES: None HEENT: None NECK: None RESPIRATORY: None CARDIOVASCULAR: None GASTROINTESTINAL: None GENITOURINARY: None MUSCULOSKELETAL: Pain in different joints LYMPHATICS: None HEMATOLOGICAL: None PSYCHIATRY: Anxious NEUROLOGICAL: None Past medical history: To include CHF EF 50-55%, atrial flutter fibrillation, moderate tricuspid and severe mitral regurgitation, secondary portal hypertension, COPD, multiple myeloma, chronic kidney disease, essential hypertension, hyperlipidemia, chronic anemia from multiple myeloma, medical debility. Social history: Smoked from the age of 19 for about 50 years about a pack a day stopped in 2014. Alcohol rarely. . Family history: Prostate cancer Physical examination: VITAL SIGNS: 98, 16, 105/64, 97% room air GENERAL: BMI 14.1, with wasting of muscles propped up in bed tired appearing, . EYES: [Pupils equal. Conjunctiva pale l. HEENT: External appearance of nose and ears normal, oral cavity grossly normal. NECK: JVD not raised; masses not palpable. HEART: First and second heart sounds are normal; no edema. LUNGS: Respiratory rate normal; decreased breath sounds. ABDOMEN: Soft, nontender, liver spleen not palpable, no masses palpable. PSYCH: [Alert and oriented x3; mood and affect anxious l. NEUROLOGICAL: Cranial nerves grossly intact; no facial asymmetry, power and sensation grossly intact. LYMPHATICS: No lymph nodes palpable in the axilla and neck MUSCULOSKELETAL: Diffuse wasting of muscles Investigations, reviewed in the clinical context: White count 0.6, hemoglobin 6.3, platelets 6 Potassium 4.3 bun 71, creatinine 3.44 Patient's bun and creatinine on August 20 was 49 and 2.2 Assessment: -Severe pancytopenia including severe anemia and severe thrombocytopenia secondary to chemotherapy and also order patient from multiple myeloma, severely symptomatic -Paroxysmal atrial flutter and fibrillation -COPD in an ex-smoker -Chronic congestive heart failure from systolic and diastolic dysfunction EF 50- 55% -Moderate tricuspid and severe mitral regurgitation, nontraumatic -Severe secondary pulmonary hypertension secondary to CHF and COPD -Multiple myeloma on chemotherapy -Chronic kidney disease secondary to multiple myeloma stage IV -Essential hypertension -Hyperlipidemia -Severe protein calorie malnutrition due to poor oral intake -Chronic medical debility -Acute kidney injury possibly a combination of acute tubular necrosis and prerenal Plan: Patient was transfuse unit of blood. Patient to continue on Revlimid. Patient is also on X Geva. Patient's anticoagulants have been held. Patient has also has been ordered platelets poor hematology. Care was discussed with the patient. Questions were answered. Dietitian consultation also in place. Prognosis is guarded. Past Medical History Past Medical History: Atrial Fibrillation, Atrial Flutter, Cancer, Heart Failure, COPD, CVA/TIA, Eye Disorder, Hyperlipidemia, Hypertension, Osteoarthritis (OA), Renal Disease, Rheumatoid Arthritis (RA) Additional Past Medical History / Comment(s): Pt admitted 11/09/17 with acute on chronic CHF exacerbation, aflutter/afib with RVR/acute hypoxic respiratory failure/vavluar disease, pulmonary htn. 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 Past Anesthesia/Blood Transfusion Reactions: No Reported Reaction Additional Past Anesthesia/Blood Transfusion Reaction / Comment(s): Pt has received blood in past and last time 10/2017 developed rash and was tx with steroids. Pt had tranfusion in May 2018 and reports no reaction. Past Psychological History: No Psychological Hx Reported Additional Psychological History / Comment(s): Pt resides with her spouse. She ambulates with a cane. She no longer drives, since her cancer diagnosis. She gets to appts by family, friends or takes a cab, if make up operator is available she takes her. Smoking Status: Former smoker Past Alcohol Use History: None Reported Additional Past Alcohol Use History / Comment(s): started smoking at age 19 smoked just under 1 ppd. quit 2014 Past Drug Use History: None Reported - Past Family History Father Family Medical History: Pneumonia, Prostate Disorder Additional Family Medical History / Comment(s): FATHER RECENTLY FROM PNEUMONIA. HE WAS 100 YRS OLD. Mother Family Medical History: Cancer Additional Family Medical History / Comment(s): LUNG CANCER. MOTHER WAS A SMOKER. Medications and Allergies Home Medications Medication Instructions Recorded Confirmed Type Sertraline [Zoloft] 200 mg PO AC-LUNCH 01/28/17 09/10/18 History Calcitriol 0.25 mcg PO HS 10/23/17 09/10/18 History Acyclovir 400 mg PO HS 12/28/17 09/10/18 History Apixaban [Eliquis] 2.5 mg PO BID tablet 12/30/17 09/10/18 Rx Calcium Carb-Vit D 500Mg-200Un 1 tab PO BID 08/15/18 09/10/18 History [Oscal 500+D] Fluticasone/Vilanterol [Breo 1 inhalation INHALATION RT-BID 08/15/18 09/10/18 History Ellipta 200-25 Mcg INH] Lenalidomide [Revlimid] 10 mg PO HS 08/15/18 09/10/18 History Metoprolol Tartrate [Lopressor] 12.5 mg PO BID 08/15/18 09/10/18 History Sodium Bicarbonate Tab 650 mg PO TID 08/15/18 09/10/18 History guaiFENesin [Mucinex] 1,200 mg PO HS 08/15/18 09/10/18 History Budesonide-Formot 160-4.5 Mcg 2 puff INHALATION RT-BID #1 each 08/20/18 09/10/18 Rx [Symbicort 160-4.5 Mcg Inhaler] Potassium Chloride [Klor-Con 20] 20 meq PO HS 09/10/18 09/10/18 History Allergies Allergy/AdvReac Type Severity Reaction Status Date / Time Penicillins Allergy Unknown Unknown Verified 09/10/18 19:50 Cephalosporins Allergy Unknown Verified 09/10/18 19:50 ciprofloxacin HCl Allergy Lip Verified 09/10/18 19:50 [From Cipro] swelling, itching codeine Allergy Unknown Verified 09/10/18 19:50 Sulfa (Sulfonamide Allergy Unknown Verified 09/10/18 19:50 Antibiotics) Physical Exam Vitals: Vital Signs Temp Pulse Pulse Resp BP BP Pulse Ox 09/11/18 12:32 97.8 F 66 16 96/44 98 09/11/18 05:39 97.9 F 85 16 109/56 98 09/11/18 03:28 98.2 F 80 16 106/58 99 09/11/18 01:11 98.7 F 96 16 117/59 99 09/11/18 00:41 98.3 F 94 16 120/51 95 09/11/18 00:31 98.1 F 95 18 116/52 95 09/11/18 00:00 18 09/10/18 21:18 97.9 F 89 16 106/58 96 09/10/18 20:28 98 F 84 18 100/58 97 09/10/18 18:42 98 F 93 16 105/64 97 Intake and Output 09/10/18 09/11/18 09/11/18 22:59 06:59 14:59 Intake Total 310 Balance 310 Intake: Blood Product 310 Rc Irr As1 Unit 310 [id number] Other: Voiding Method Toilet # Voids 0 1 Weight 39.463 kg 37.285 kg Results CBC & Chem 7: 09/11/18 08:46 09/11/18 08:46 Labs: Abnormal Lab Results - Last 24 Hours (Table) 09/10/18 09/10/18 09/10/18 Range/Units 20:12 20:12 20:12 WBC 0.6 L* (3.8-10.6) k/uL RBC 2.11 L (3.80-5.40) m/uL Hgb 6.3 L* D (11.4-16.0) gm/dL Hct 18.9 L* (34.0-46.0) % RDW 15.8 H (11.5-15.5) % Plt Count 6 L* D (150-450) k/uL Sodium 136 L (137-145) mmol/L Carbon Dioxide 21 L (22-30) mmol/L BUN 71 H (7-17) mg/dL Creatinine 3.44 H (0.52-1.04) mg/dL Calcium (8.4-10.2) mg/dL Total Protein 5.9 L (6.3-8.2) g/dL Albumin 3.4 L (3.5-5.0) g/dL Crossmatch See Detail 09/11/18 09/11/18 Range/Units 08:46 08:46 WBC 0.7 L* (3.8-10.6) k/uL RBC 2.43 L (3.80-5.40) m/uL Hgb 7.6 L (11.4-16.0) gm/dL Hct 21.7 L (34.0-46.0) % RDW 16.2 H (11.5-15.5) % Plt Count 5 L* (150-450) k/uL Sodium (137-145) mmol/L Carbon Dioxide (22-30) mmol/L BUN 62 H (7-17) mg/dL Creatinine 3.19 H (0.52-1.04) mg/dL Calcium 8.0 L (8.4-10.2) mg/dL Total Protein 5.3 L (6.3-8.2) g/dL Albumin 2.9 L (3.5-5.0) g/dL Crossmatch Thrombosis Risk Factor Assmnt - Choose All That Apply Any of the Below Risk Factors Present?: Yes Each Factor Represents 1 point: Serious lung disease incl. pneumonia (< 1month) Other Risk Factors: Yes Each Risk Factor Represents 2 Points: Age 61-74 years, Malignancy Each Risk Factor Represents 5 Points: Major surgery lasting over 3 hours Thrombosis Risk Factor Assessment Total Risk Factor Score: 10 Thrombosis Risk Factor Assessment Level: High Risk
[2018-09-11] MEDS: Lenalidomide [Revlimid] 10 MG PO SCH (21:09)
[2018-09-11] MEDS: guaiFENesin 600 MG TABLET.ER PO SCH (21:16)
[2018-09-11] MEDS: ACYCLOVIR 200 MG CAP PO SCH (21:16)
[2018-09-11] MEDS: CALCITRIOL 0.25 MCG CAP PO SCH (21:16)
[2018-09-11] MEDS: POTASSIUM CHLORIDE ER 20 MEQ TAB.ER PO SCH (21:17)
[2018-09-12 03:13] LABS: Anisocytosis Slight; MCH 31.4 pg (25.0-35.0); MCHC 34.8 g/dL (31.0-37.0); MCV 90.2 fL (80.0-100.0); Mean Platelet Volume 8.6; Poikilocytosis Slight; RBC 2.22 m/uL (3.80-5.40); RDW 16.2 % (11.5-15.5)
[2018-09-12 03:19] LABS: WBC 0.7 k/uL (3.8-10.6)
[2018-09-12 03:20] LABS: Platelet Count 29 k/uL (150-450)
[2018-09-12] MEDS: SYMBICORT 160-4.5 MCG INHALER INHALATION SCH ×2 (07:53→21:57)
[2018-09-12] MEDS: CALCIUM CARB-VIT D 500MG-200UN 1 EACH TAB PO SCH ×2 (08:54→19:56)
[2018-09-12] MEDS: SODIUM BICARBONATE TAB 650 MG TAB PO SCH ×3 (08:54→19:55)
[2018-09-12] MEDS: METOPROLOL TARTRATE 12.5 MG TAB PO SCH ×2 (08:54→19:56)
[2018-09-12 11:44] LABS: Calcium 7.8 mg/dL (8.4-10.2)
--- NOTE | 2018-09-12 12:06 | P.PN ---
Subjective Progress Note Date: 09/12/18 Principal diagnosis: bicytopenia OVerall feeling better, Blood counts still low. But improved. Objective - Vital Signs Vital signs: Vital Signs Temp 98.1 F 09/12/18 04:58 Pulse 87 09/12/18 04:58 Resp 16 09/12/18 04:58 BP 112/62 09/12/18 04:58 Pulse Ox 97 09/12/18 04:58 Intake & Output 09/11/18 09/12/18 09/12/18 18:59 06:59 18:59 Intake Total 925 Balance 925 Weight 37.285 kg 37.9 kg Intake: Oral 720 Blood Product 205 Platelet Irr Pheresis 205 Acda1 Unit [id number] Other: Voiding Method Bedside Commode # Voids 1 2 - Exam General: Alert and Oriented x3, No Acute Distress Head: Normocytic, Atraumatic Neck: Supple Mouth: No Lesions, No Thrush Eyes: Non-sclerotic No Palpable cervical, supraclavicular, axillary adenopathy Heart: Regular Rate, Regular Rhythm Lungs: Clear to Ausculations, No Wheeze, No Rhonchi, Diminishe bilateral lower lobes, No increased respiratory effort noted Abdomen: Soft, Non-Distended, Non-Tended, BSx4 Extremities: No Edema, Equal Strength Neurological: No Focal Defects: No sensory or motor deficits noted Psych: Calm and cooperative - Labs CBC & Chem 7: 09/12/18 01:57 09/12/18 11:01 Labs: Abnormal Lab Results - Last 24 Hours (Table) 09/12/18 09/12/18 Range/Units 01:57 11:01 WBC 0.7 L* (3.8-10.6) k/uL RBC 2.22 L (3.80-5.40) m/uL Hgb 7.0 L (11.4-16.0) gm/dL Hct 20.0 L (34.0-46.0) % RDW 16.2 H (11.5-15.5) % Plt Count 29 L D (150-450) k/uL Chloride 108 H (98-107) mmol/L BUN 58 H (7-17) mg/dL Creatinine 2.80 H (0.52-1.04) mg/dL Glucose 118 H (74-99) mg/dL Calcium 7.8 L (8.4-10.2) mg/dL Assessment and Plan Plan: Assessment and Recommendations: Multiple Myeloma: - Revlimid and Xgeva maintenance - Hold Revlimid for thrombocytopenia Pancytopenia: - Secondary to chemotherapy and exacerbated with acute illness - Hold Anticoag untill platelet greater than 50K -Transfuse PRBC less than 7, and platelets less than 10 Acute on Chronic Renal Failure: - Nephrology to follow Plan: - Continue to hold Anticoagulation until platlets greater than 50K - COntinue to hold Revlimid, until follow-up in office.
--- NOTE | 2018-09-12 12:20 | CONS ---
CONSULTATION REASON FOR CONSULT: Renal failure. HISTORY OF PRESENT ILLNESS: The patient is a 67-year-old female with history of multiple myeloma status post stem cell transplant. The patient was admitted to the hospital with complaints of increased weakness, body aches. She was found to have hemoglobin of 6.3, white cell count of 0.6, and platelet count of 6000. The patient has been transfused platelets and packed RBCs; her count is improved to 29,000 and hemoglobin is at 7. Overall, she states she is feeling better. The patient has CKD stage 5 secondary to nephrosclerosis and multiple myeloma. Her creatinine has been at about the 2.5 to 3 mg/dL as outpatient, stage 4. We have discussed renal replacement therapy and patient is supposed to get an access in her arm to prepare for renal replacement therapy. Her creatinine on admission was 3.4, it is down to 3.1. The patient has been voiding. She denies any other significant complaints. Overall, she states she is feeling better. PAST MEDICAL HISTORY: Multiple myeloma, CKD stage 4secondary to nephrosclerosis and multiple myeloma, COPD, CHF, history of CVA/TIA, hypertension, hyperlipidemia, rheumatoid arthritis, macular degeneration, history of breast . PAST SURGICAL HISTORY: Lumbar fusion, breast implants in 70s, removed late 90s. SOCIAL HISTORY: Negative for smoking, drug abuse or alcohol abuse. MEDICATIONS: Medications prior to admission revealed Zoloft, Calcitriol, acyclovir, Eliquis, calcium, Revlimid, Lopressor, sodium bicarb, Mucinex, potassium, Symbicort. ALLERGIES: Allergies Include PENICILLIN, CEPHALOSPORINS, CIPRO, CODEINE, SULFA. PHYSICAL EXAMINATION: On examination, patient is currently comfortable, awake. She is not in any acute distress. Blood pressure is 112/62, heart rate 87 per minute. Patient is afebrile. EXAMINATION OF THE HEART: S1, S2. EXAMINATION OF THE LUNGS: Bilateral breath sounds are heard. Abdomen is soft, nontender. Examination of the lower extremities shows no significant edema. PAINT BOOTH OPERATOR EXAM: Grossly intact. LABS: Labs from yesterday show sodium 137, BUN 62, serum creatinine 3.19, hemoglobin 7.0 g/dL, white cell count 0.7, platelet count up to 29,000. UA is not available, ASSESSMENT: 1. Chronic kidney disease NKF stage 4 secondary to nephrosclerosis and multiple myeloma. Renal function close to baseline. No indication to proceed with renal replacement therapy. Expect further improvement in renal function with improvement in anemia post RBC transfusion. I will also repeat labs today. 2. Pancytopenia secondary to Revlimid, status post platelet transfusion and packed RBCs transfusion. 3. History of chronic obstructive pulmonary disease, currently stable. 4. Metabolic acidosis. Maintained on oral sodium bicarb. 5. Hypokalemia. Maintained on potassium supplementation, which I will continue. 6. Multiple myeloma, status post stem cell transplant. Maintained on Revlimid as an outpatient, being followed by Hematology-Oncology. PLAN: Repeat labs today. Check urinalysis. Continue with the Calcitriol and sodium bicarb and repeat labs again in a.m. Thank you for this consultation. We will continue to follow this patient with you during her hospitalization. MMODL / IJN: [id number] /
[2018-09-12] MEDS: SERTRALINE 100 MG TAB PO SCH (14:30)
[2018-09-12] MEDS: FILGRASTIM-SNDZ 300 MCG/0.5 ML SYRINGE SQ SCH (14:30)
[2018-09-12] MEDS: ACYCLOVIR 200 MG CAP PO SCH (19:55)
[2018-09-12] MEDS: CALCITRIOL 0.25 MCG CAP PO SCH (19:55)
[2018-09-12] MEDS: POTASSIUM CHLORIDE ER 20 MEQ TAB.ER PO SCH (19:56)
[2018-09-12] MEDS: guaiFENesin 600 MG TABLET.ER PO SCH (19:56)
--- NOTE | 2018-09-12 22:18 | P.PN ---
Progress Note - Text Progress Note Date: 09/12/18 Chief Complaint: Low hemoglobin Interval history: This is a very pleasant 67-year-old patient of Dr. Villalobos. Chronic stable medical conditions include paroxysmal atrial flutter fibrillation, COPD, CHF with an EF of 50-55%, tricuspid and mitral regurgitation, secondary pulmonary hypertension, chronic kidney disease stage IV, hypertension, hyperlipidemia,. Patient also being treated for multiple myeloma. Patient had gone down to see her card checker Dr. Larson and was found to have a hemoglobin of 6.6. Patient with therefore sent to the hospital. Patient did receive a unit of blood. Patient has been feeling weak and tired. Dizzy lightheaded. Appetite has been low. Patient is also on REVLIMID that she takes daily. Otherwise tired and rundown. Denies any fever and chills. Today-Revlimid has been held because of low platelets. Patient does feel a bit better. No mostly tired. Had remained in bed. Appetite is somewhat better. Review of systems: Was done for constitutional, cardiovascular, GI, pulmonary. relevant finding as above Current medications are reviewed that include:: Revlimid has been held. Patient on sodium bicarbonate. MELIDARXIO Physical examination: VITAL SIGNS: 98, 90, 16, 102/62, 98% on 1 L GENERAL: Laying in bed, tired appearing . EYES: [Pupils equal. Conjunctiva pale l. HEENT: External appearance of nose and ears normal, oral cavity grossly normal. NECK: JVD not raised; masses not palpable. HEART: First and second heart sounds are normal; no edema. LUNGS: Respiratory rate normal; decreased breath sounds. ABDOMEN: Soft, nontender, liver spleen not palpable, no masses palpable. PSYCH: [Alert and oriented x3; mood and affect anxious l. Investigations, reviewed in the clinical context: White count 0.7 hemoglobin 7 platelets 29 BUN 58 creatinine 2.80 Patient's bun and creatinine on August 20 was 49 and 2.2 Assessment: -Severe pancytopenia including severe anemia and severe thrombocytopenia secondary to chemotherapy and also order patient from multiple myeloma, severely symptomatic -Paroxysmal atrial flutter and fibrillation -COPD in an ex-smoker -Chronic congestive heart failure from systolic and diastolic dysfunction EF 50- 55% -Moderate tricuspid and severe mitral regurgitation, nontraumatic -Severe secondary pulmonary hypertension secondary to CHF and COPD -Multiple myeloma on chemotherapy -Chronic kidney disease secondary to multiple myeloma stage IV -Essential hypertension -Hyperlipidemia -Severe protein calorie malnutrition due to poor oral intake -Chronic medical debility -Acute kidney injury possibly a combination of acute tubular necrosis and prerenal, some improved Plan: Revlimid has been helped by hematology. Has patient continues to feel weak and tired hemoglobin is borderline at 7 Will give another unit of blood. Encouraged patient to be out of bed. Prognosis is guarded.
[2018-09-13 07:47] LABS: HCT 24.1 % (34.0-46.0); HGB 8.3 gm/dL (11.4-16.0); MCH 30.7 pg (25.0-35.0); MCHC 34.3 g/dL (31.0-37.0); MCV 89.4 fL (80.0-100.0); Mean Platelet Volume 8.3; Poikilocytosis Slight; RBC 2.69 m/uL (3.80-5.40); RDW 15.6 % (11.5-15.5)
[2018-09-13] MEDS: SYMBICORT 160-4.5 MCG INHALER INHALATION SCH (08:00)
[2018-09-13 08:02] LABS: WBC 0.9 k/uL (3.8-10.6)
[2018-09-13 08:35] LABS: Calcium 7.4 mg/dL (8.4-10.2); Potassium 4.3 mmol/L (3.5-5.1)
[2018-09-13 08:54] LABS: Rouleaux Present
[2018-09-13 08:56] LABS: Platelet Count 19 k/uL (150-450)
[2018-09-13] MEDS: SODIUM BICARBONATE TAB 650 MG TAB PO SCH (09:09)
[2018-09-13] MEDS: FILGRASTIM-SNDZ 300 MCG/0.5 ML SYRINGE SQ SCH (09:09)
[2018-09-13] MEDS: CALCIUM CARB-VIT D 500MG-200UN 1 EACH TAB PO SCH (09:09)
[2018-09-13] MEDS: METOPROLOL TARTRATE 12.5 MG TAB PO SCH (09:09)
[2018-09-13] MEDS: SERTRALINE 100 MG TAB PO SCH (09:09)
--- NOTE | 2018-09-13 12:03 | PN ---
PROGRESS NOTE Patient is seen for followup for chronic kidney disease and acute kidney injury. She was admitted with pancytopenia and has been transfused packed RBCs and platelets. Renal function has improved significantly. Creatinine down to 2.5 from 3.4. PHYSICAL EXAMINATION: On examination today, patient is comfortable, awake, alert, oriented x3. Blood pressure is 111/67, heart rate 79 per minute. She is afebrile. EXAMINATION OF THE HEART: S1, S2. EXAMINATION OF THE LUNGS: Decreased breath sounds at the bases. Abdomen is soft, nontender. Examination of lower extremities shows no significant edema. LABS: Labs show sodium 139, potassium 4.3, CO2 is 18, BUN 49, serum creatinine 2.51, hemoglobin 8.3 g/dL. ASSESSMENT: 1. Chronic kidney disease NKF stage 4 to 5 stable with some improvement in renal function. 2. Acute kidney injury secondary to severe anemia, currently improving. 3. Pancytopenia secondary to chemotherapy, currently improved, post transfusion of packed RBCs and platelets. is also on hold. 4. Metabolic acidosis secondary to renal failure. Patient is maintained on oral sodium bicarb at home, which we will continue. PLAN: Continue to encourage increased oral intake. Continue oral sodium bicarb. Follow up as an outpatient post discharge. MMODL / IJN: [id number] /
[2018-09-13 12:07] VITALS: BP 115/63; PULSE 77; RESP 20; TEMP 97.8
[2018-09-13 13:32] VITALS: BMI 14.3
--- NOTE | 2018-09-13 14:15 | CDI ---
Documentation Clarification Form Date: 09/13/2018 2:04:16 PM From: Allie BeckerNealVIDLA jordan, CCDS Admit Date: 09/10/2018 7:51:00 PM Patient Name: Lucero Coleman Visit Number: [id number] Discharge Date: ATTENTION: The Clinical Documentation Specialists (CDI) and [facility] Coding Staff appreciate your assistance in clarifying documentation. Please respond to the clarification below the line at the bottom and electronically sign. The CDI & [facility] Coding staff will review the response and follow-up if needed. Please note: Queries are made part of the Legal Health Record. If you have any questions, please contact the author of this message via ITS. Dr. Christopher Serrano: Atrial Flutter is documented in the ED & the History & Physical and Nephrology consultation as a history. Per the 09/12 attending progress note: "Paroxysmal atrial flutter and fibrillation." History/Risk factors: COPD, CHF, Multiple Myeloma, Hypertension, Hyperlipidemia, Atrial flutter, Atrial fibrillation, Secondary portal hypertension & CKD IV. Former smoker. Clinical Indicators: Presented with low hemoglobin, Hgb 6.6. Dizzy, lightheaded, appetite low. Known documented CHF with EF 50-55%, Tricuspid & mitral regurgitation. Treatment: Transfused PRBCs & Platelets. po Eliquis, Rocaltrol, Calcium Carbonate, Lopressor, Revlimid, KDur, NaBicarb, INH: Symbicort & Breo. Consults: Nephrology & Hem/Onc In your professional opinion, in order to capture the severity of condition; can you please clarify the type of Atrial Flutter if known? Typical/Type I Atypical/Type II Other, please specify Unable to determine (Last Revision: June 2017) MTDD
--- NOTE | 2018-09-13 22:01 | P.DS ---
Providers Date of admission: 09/10/18 19:51 Expected date of discharge: 09/13/18 Attending physician: Christopher Serrano Consults: 09/11/18 10:18 Consult Physician Urgent Consulting Provider: Efren Larson Consult Reason/Comments: anemia, known to physician Do you want consulting provider notified?: Yes 09/11/18 13:18 Consult Physician Routine Consulting Provider: Lewis Gutierrez Consult Reason/Comments: Acute on chronic renal failure Do you want consulting provider notified?: Yes Primary care physician: [facility] Hospital Course: Hospital course: This is a very pleasant 67-year-old patient of Dr. Villalobos. Chronic stable medical conditions include paroxysmal atrial flutter fibrillation, COPD, CHF with an EF of 50-55%, tricuspid and mitral regurgitation, secondary pulmonary hypertension, chronic kidney disease stage IV, hypertension, hyperlipidemia,. Patient also being treated for multiple myeloma. Patient had gone down to see her lodging house keeper Dr. Larson and was found to have a hemoglobin of 6.6. Patient with therefore sent to the hospital. Patient did receive a unit of blood. Patient has been feeling weak and tired. Dizzy lightheaded. Appetite has been low. Patient is also on REVLIMID that she takes daily. Otherwise tired and rundown. Denies any fever and chills. Patient did receive total of 2 units of blood. Also received unit of platelets. This morning feeling much better. Less tired. Did tolerate her diet. I did speak to Radha from oncology. Okay to discharge patient. Care was discussed the patient. Discussion discharge planning more than 35 minutes Consultation: Dr. larson from oncology Review of systems: Was done for constitutional, cardiovascular, GI, pulmonary. relevant finding as above Physical examination: VITAL SIGNS: 98.1, 79, 16, 111/67, 98% on 1 L GENERAL: Laying in bed, looking better. EYES: [Pupils equal. Conjunctiva pale l. HEENT: External appearance of nose and ears normal, oral cavity grossly normal. NECK: JVD not raised; masses not palpable. HEART: First and second heart sounds are normal; no edema. LUNGS: Respiratory rate normal; decreased breath sounds. ABDOMEN: Soft, nontender, liver spleen not palpable, no masses palpable. PSYCH: [Alert and oriented x3; mood and affect anxious l. Investigations, reviewed in the clinical context: White count 0.9 hemoglobin 8.3 platelets 19 BUN 49 creatine 2.51 Patient's bun and creatinine on August 20 was 49 and 2.2 Assessment: -Severe pancytopenia including severe anemia and severe thrombocytopenia secondary to chemotherapy and also order patient from multiple myeloma, severely symptomatic -Paroxysmal atrial flutter and fibrillation -COPD in an ex-smoker -Chronic congestive heart failure from systolic and diastolic dysfunction EF 50- 55% -Moderate tricuspid and severe mitral regurgitation, nontraumatic -Severe secondary pulmonary hypertension secondary to CHF and COPD -Multiple myeloma on chemotherapy -Chronic kidney disease secondary to multiple myeloma stage IV -Essential hypertension -Hyperlipidemia -Severe protein calorie malnutrition due to poor oral intake -Chronic medical debility -Acute kidney injury possibly a combination of acute tubular necrosis and prerenal, much improved Plan: DC home Patient Condition at Discharge: Stable Plan - Discharge Summary Discharge Rx Participant: No New Discharge Prescriptions: Continue Sertraline [Zoloft] 200 mg PO AC-LUNCH Calcitriol 0.25 mcg PO HS Acyclovir 400 mg PO HS guaiFENesin [Mucinex] 1,200 mg PO HS Calcium Carb-Vit D 500Mg-200Un [Oscal 500+D] 1 tab PO BID Metoprolol Tartrate [Lopressor] 12.5 mg PO BID Sodium Bicarbonate Tab 650 mg PO TID Fluticasone/Vilanterol [Breo Ellipta 200-25 Mcg INH] 1 inhalation INHALATION RT-BID Budesonide-Formot 160-4.5 Mcg [Symbicort 160-4.5 Mcg Inhaler] 2 puff INHA LATION RT-BID #1 each Potassium Chloride [Klor-Con 20] 20 meq PO HS Discontinued Apixaban [Eliquis] 2.5 mg PO BID tablet Lenalidomide [Revlimid] 10 mg PO HS Discharge Medication List Sertraline [Zoloft] 200 mg PO AC-LUNCH 01/28/17 [History] Calcitriol 0.25 mcg PO HS 10/23/17 [History] Acyclovir 400 mg PO HS 12/28/17 [History] Calcium Carb-Vit D 500Mg-200Un [Oscal 500+D] 1 tab PO BID 08/15/18 [History] Fluticasone/Vilanterol [Breo Ellipta 200-25 Mcg INH] 1 inhalation INHALATION RT- BID 08/15/18 [History] Metoprolol Tartrate [Lopressor] 12.5 mg PO BID 08/15/18 [History] Sodium Bicarbonate Tab 650 mg PO TID 08/15/18 [History] guaiFENesin [Mucinex] 1,200 mg PO HS 08/15/18 [History] Budesonide-Formot 160-4.5 Mcg [Symbicort 160-4.5 Mcg Inhaler] 2 puff INHALATION RT-BID #1 each 08/20/18 [Rx] Potassium Chloride [Klor-Con 20] 20 meq PO HS 09/10/18 [History] Follow up Appointment(s)/Referral(s): Efren Larson MD [STAFF PHYSICIAN] - 09/19/18 2:15 pm Ariella De Jesus MD [STAFF PHYSICIAN] - 10/22/18 1:40 pm Kirby Villalobos DO [Primary Care Provider] - 09/18/18 11:40 am Ambulatory/Diagnostic Orders: Complete Blood Count w/diff [LAB.AMB] Time Frame: 3 Days, Location: None Selected Patient Instructions/Handouts: Anemia (ED) Activity/Diet/Wound Care/Special Instructions: Patient will be admitted. Discharge Disposition: HOME SELF-CARE
== END 2018-09-13 15:54 | disposition home or self-care (01) | DRG 808 ==
LOC: EC 16:54 → 3NMEDONC 19:51
PROVIDERS: ADMIT Hospitalist; ATTEND Hospitalist
PROC: 30233R1 Transfusion of Nonautologous Platelets into Peripheral Vein, Percutaneous Approach (ICD-10-PCS; principal; 2018-09-11)
PROC: 30233N1 Transfusion of Nonautologous Red Blood Cells into Peripheral Vein, Percutaneous Approach (ICD-10-PCS; 2018-09-11)
DX: D61.810 Antineoplastic chemotherapy induced pancytopenia (principal); E43 Unspecified severe protein-calorie malnutrition; N17.0 Acute kidney failure with tubular necrosis; C90.00 Multiple myeloma not having achieved remission; E87.2 Acidosis; I13.2 Hypertensive heart and chronic kidney disease with heart failure and with stage 5 chronic kidney disease, or end stage renal disease; I48.92 Unspecified atrial flutter; I50.42 Chronic combined systolic (congestive) and diastolic (congestive) heart failure; N18.4 Chronic kidney disease, stage 4 (severe); Z94.84 Stem cells transplant status; I48.0 Paroxysmal atrial fibrillation; I27.29 Other secondary pulmonary hypertension; I08.1 Rheumatic disorders of both mitral and tricuspid valves; I69.344 Monoplegia of lower limb following cerebral infarction affecting left non-dominant side; J44.9 Chronic obstructive pulmonary disease, unspecified; T45.1X5A Adverse effect of antineoplastic and immunosuppressive drugs, initial encounter; E78.5 Hyperlipidemia, unspecified; E87.6 Hypokalemia; H35.30 Unspecified macular degeneration; H40.9 Unspecified glaucoma; M06.9 Rheumatoid arthritis, unspecified; D63.0 Anemia in neoplastic disease; M19.90 Unspecified osteoarthritis, unspecified site; Z79.01 Long term (current) use of anticoagulants; Z79.51 Long term (current) use of inhaled steroids; Z79.899 Other long term (current) drug therapy; Z88.1 Allergy status to other antibiotic agents; Z88.0 Allergy status to penicillin; Z88.2 Allergy status to sulfonamides; Z88.8 Allergy status to other drugs, medicaments and biological substances; Z85.41 Personal history of malignant neoplasm of cervix uteri; Z87.891 Personal history of nicotine dependence; Z98.1 Arthrodesis status; Z90.712 Acquired absence of cervix with remaining uterus; Z80.1 Family history of malignant neoplasm of trachea, bronchus and lung
CPT/HCPCS: 80048; 80053; 83735; 84100; 85025; 86850; 86900; 86901; 86920; 94640; 99284

== ENCOUNTER 2019-03-15 14:21 | Inpatient (IN) | payer MEDICARE ==
[2019-03-15] MEDS ORDERED: SODIUM CHLORIDE 0.9% 1,000 ML IV STA (14:54)
--- NOTE | 2019-03-15 15:11 | ED ---
SOB HPI - General Chief Complaint: Shortness of Breath Stated Complaint: ELIEZER Time Seen by Provider: 03/15/19 14:39 Source: patient, EMS Mode of arrival: EMS Limitations: no limitations - History of Present Illness Initial Comments: Patient is 68-year-old female with history of multiple myeloma presenting to emergency Department with a chief complaint of cough and shortness of breath. She reports her last 2 weeks she developed increased shortness of breath and a cough. Patient reports she said nausea with several episodes of vomiting and diarrhea over the last few days which is causing her to be dehydrated and tired. She also reports fevers and chills over the last 2 days. Patient is a history of COPD and was a chronic smoker. She does take albuterol updrafts and Symbicort daily. Patient denies any chest pain, abdominal pain, back pain, n ausea vomiting or diarrhea. Patient takes oral chemotherapy daily but has not taken her medication in 2 weeks due to decreased white blood count. - Related Data Home Medications Medication Instructions Recorded Confirmed Sertraline [Zoloft] 200 mg PO AC-LUNCH 01/28/17 09/10/18 Calcitriol 0.25 mcg PO HS 10/23/17 09/10/18 Acyclovir 400 mg PO HS 12/28/17 09/10/18 Calcium Carb-Vit D 500Mg-200Un 1 tab PO BID 08/15/18 09/10/18 [Oscal 500+D] Fluticasone/Vilanterol [Breo 1 inhalation INHALATION RT-BID 08/15/18 09/10/18 Ellipta 200-25 Mcg INH] Metoprolol Tartrate [Lopressor] 12.5 mg PO BID 08/15/18 09/10/18 Sodium Bicarbonate Tab 650 mg PO TID 08/15/18 09/10/18 guaiFENesin [Mucinex] 1,200 mg PO HS 08/15/18 09/10/18 Potassium Chloride [Klor-Con 20] 20 meq PO HS 09/10/18 09/10/18 Previous Rx's Medication Instructions Recorded Budesonide-Formot 160-4.5 Mcg 2 puff INHALATION RT-BID #1 each 08/20/18 [Symbicort 160-4.5 Mcg Inhaler] Allergies Allergy/AdvReac Type Severity Reaction Status Date / Time Penicillins Allergy Unknown Unknown Verified 03/15/19 14:29 Cephalosporins Allergy Unknown Verified 03/15/19 14:29 ciprofloxacin HCl Allergy Lip Verified 03/15/19 14:29 [From Cipro] swelling, itching codeine Allergy Unknown Verified 03/15/19 14:29 Sulfa (Sulfonamide Allergy Unknown Verified 03/15/19 14:29 Antibiotics) Review of Systems ROS Statement: Those systems with pertinent positive or pertinent negative responses have been documented in the HPI. ROS Other: All systems not noted in ROS Statement are negative. Past Medical History Past Medical History: Atrial Fibrillation, Atrial Flutter, Cancer, Heart Failure, COPD, CVA/TIA, Eye Disorder, Hyperlipidemia, Hypertension, Osteoarthritis (OA), Renal Disease, Rheumatoid Arthritis (RA) Additional Past Medical History / Comment(s): Pt admitted 11/09/17 with acute on chronic CHF exacerbation, aflutter/afib with RVR/acute hypoxic respiratory failu re/vavluar disease, pulmonary htn. 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 Past Anesthesia/Blood Transfusion Reactions: No Reported Reaction Additional Past Anesthesia/Blood Transfusion Reaction / Comment(s): Pt has received blood in past and last time 10/2017 developed rash and was tx with s teroids. Pt had tranfusion in May 2018 and reports no reaction. Past Psychological History: No Psychological Hx Reported Smoking Status: Former smoker Past Alcohol Use History: None Reported Past Drug Use History: None Reported - Past Family History Father Family Medical History: Pneumonia, Prostate Disorder Additional Family Medical History / Comment(s): FATHER RECENTLY FROM PNEUMONIA. HE WAS 100 YRS OLD. Mother Family Medical History: Cancer Additional Family Medical History / Comment(s): LUNG CANCER. MOTHER WAS A SMOKER. General Exam Limitations: no limitations General appearance: alert, in no apparent distress Head exam: Present: atraumatic, normocephalic, normal inspection Eye exam: Present: normal appearance, PERRL, EOMI Pupils: Present: normal accommodation ENT exam: Present: normal exam Neck exam: Present: normal inspection, full ROM Respiratory exam: Present: rhonchi Cardiovascular Exam: Present: normal rhythm, tachycardia, normal heart sounds GI/Abdominal exam: Present: soft. Absent: distended, tenderness, guarding Extremities exam: Present: normal inspection, full ROM, normal capillary refill Back exam: Present: normal inspection, full ROM Neurological exam: Present: alert, oriented X3 Psychiatric exam: Present: normal affect, normal mood Skin exam: Present: warm, dry, intact, normal color Course Vital Signs 03/15/19 03/15/19 03/15/19 14:28 14:38 15:00 Temperature 100.2 F H Pulse Rate 120 H 101 H Respiratory 22 25 H Rate Blood Pressure 116/55 116/55 O2 Sat by Pulse 96 67 L 97 Oximetry 03/15/19 03/15/19 17:12 17:30 Temperature 99.0 F Pulse Rate 104 H 93 Respiratory 22 16 Rate Blood Pressure 108/57 108/57 O2 Sat by Pulse 96 97 Oximetry Medical Decision Making - Medical Decision Making Patient is 68-year-old female history of multiple myeloma and COPD presenting to the emergency department with a chief complaint of cough and a fever. On physical examination patient is wheezing bilaterally. She does appear slightly pale but states that is somewhat her baseline. Patient given a breathing treatment. Patient has a fever and she was given Tylenol. She does not have any chest pain at this time. Chest x-ray obtained shows chronic pulmonary disease. new Lesions are detected on the the ribs which are not typical for myeloma. CTs advised. Patient has a positive d-dimer. V/Q obtained shows low probability for a CT. CT pending at this time. CBC anemia and thrombocytopenia although this appears to be close to the patient's baseline. CMP does show poor renal function but that is her typical baseline for patient. Patient is not on dialysis. Lactic within normal limits. Blood cultures obtained. Case discussed with Dr. Ro. Patient will be admitted for further medical management. Admitting physician is Dr. Serrano. Pulmonology consulted. - Lab Data Result diagrams: 03/15/19 14:51 03/15/19 14:51 Lab Results 03/15/19 03/15/19 03/15/19 Range/Units 14:51 14:51 14:51 WBC 5.2 (3.8-10.6) k/uL RBC 2.16 L (3.80-5.40) m/uL Hgb 7.2 L (11.4-16.0) gm/dL Hct 22.0 L (34.0-46.0) % MCV 101.7 H (80.0-100.0) fL MCH 33.3 (25.0-35.0) pg MCHC 32.7 (31.0-37.0) g/dL RDW 17.0 H (11.5-15.5) % Plt Count 33 L (150-450) k/uL Neutrophils % 81 % Lymphocytes % 10 % Monocytes % 7 % Eosinophils % 0 % Basophils % 0 % Neutrophils # 4.2 (1.3-7.7) k/uL Lymphocytes # 0.5 L (1.0-4.8) k/uL Monocytes # 0.3 (0-1.0) k/uL Eosinophils # 0.0 (0-0.7) k/uL Basophils # 0.0 (0-0.2) k/uL Manual Slide Review Performed Polychromasia Present Hypochromasia Slight Hypochromasia (manual) Present Poikilocytosis Moderate Anisocytosis Slight Anisocytosis (manual) Present Macrocytosis Slight PT 10.4 (9.0-12.0) sec INR 1.0 (<1.2) APTT 29.7 (22.0-30.0) sec D-Dimer 0.71 H (<0.60) mg/L FEU Sodium 143 (137-145) mmol/L Potassium 4.3 (3.5-5.1) mmol/L Chloride 116 H (98-107) mmol/L Carbon Dioxide 15 L (22-30) mmol/L Anion Gap 12 mmol/L BUN 31 H (7-17) mg/dL Creatinine 2.13 H (0.52-1.04) mg/dL Est GFR (CKD-EPI)AfAm 27 (>60 ml/min/1.73 sqM) Est GFR (CKD-EPI)NonAf 23 (>60 ml/min/1.73 sqM) Glucose 119 H (74-99) mg/dL Plasma Lactic Acid Afshin (0.7-2.0) mmol/L Calcium 7.0 L (8.4-10.2) mg/dL Total Bilirubin 0.4 (0.2-1.3) mg/dL AST 28 (14-36) U/L ALT 33 (4-34) U/L Alkaline Phosphatase 88 (38-126) U/L Troponin I (0.000-0.034) ng/mL Total Protein 6.1 L (6.3-8.2) g/dL Albumin 3.4 L (3.5-5.0) g/dL Influenza Type A RNA (Not Detectd) Influenza Type B (PCR) (Not Detectd) 03/15/19 03/15/19 03/15/19 Range/Units 14:51 14:51 14:53 WBC (3.8-10.6) k/uL RBC (3.80-5.40) m/uL Hgb (11.4-16.0) gm/dL Hct (34.0-46.0) % MCV (80.0-100.0) fL MCH (25.0-35.0) pg MCHC (31.0-37.0) g/dL RDW (11.5-15.5) % Plt Count (150-450) k/uL Neutrophils % % Lymphocytes % % Monocytes % % Eosinophils % % Basophils % % Neutrophils # (1.3-7.7) k/uL Lymphocytes # (1.0-4.8) k/uL Monocytes # (0-1.0) k/uL Eosinophils # (0-0.7) k/uL Basophils # (0-0.2) k/uL Manual Slide Review Polychromasia Hypochromasia Hypochromasia (manual) Poikilocytosis Anisocytosis Anisocytosis (manual) Macrocytosis PT (9.0-12.0) sec INR (<1.2) APTT (22.0-30.0) sec D-Dimer (<0.60) mg/L FEU Sodium (137-145) mmol/L Potassium (3.5-5.1) mmol/L Chloride (98-107) mmol/L Carbon Dioxide (22-30) mmol/L Anion Gap mmol/L BUN (7-17) mg/dL Creatinine (0.52-1.04) mg/dL Est GFR (CKD-EPI)AfAm (>60 ml/min/1.73 sqM) Est GFR (CKD-EPI)NonAf (>60 ml/min/1.73 sqM) Glucose (74-99) mg/dL Plasma Lactic Acid Afshin 0.9 (0.7-2.0) mmol/L Calcium (8.4-10.2) mg/dL Total Bilirubin (0.2-1.3) mg/dL AST (14-36) U/L ALT (4-34) U/L Alkaline Phosphatase (38-126) U/L Troponin I 0.016 (0.000-0.034) ng/mL Total Protein (6.3-8.2) g/dL Albumin (3.5-5.0) g/dL Influenza Type A RNA Not Detected (Not Detectd) Influenza Type B (PCR) Not Detected (Not Detectd) Disposition Clinical Impression: COPD exacerbation, Cough Disposition: ADMITTED IP TO THIS HOSP Condition: Good Instructions (If sedation given, give patient instructions): Chronic Cough (ED) Additional Instructions: Patient will be admitted Is patient prescribed a controlled substance at d/c from ED?: No Referrals: Kirby Villalobos DO [Primary Care Provider] - 1-2 days Time of Disposition: 20:17
[2019-03-15] MEDS ORDERED: ONDANSETRON 4 MG/2 ML VIAL IVP STA (15:12)
[2019-03-15] MEDS ORDERED: ACETAMINOPHEN TAB 325 MG TAB PO STA (15:12)
[2019-03-15 15:33] LABS: Albumin 3.4 g/dL (3.5-5.0); Partial Thromboplastin Time 29.7 sec (22.0-30.0); Potassium 4.3 mmol/L (3.5-5.1); Prothrombin Time 10.4 sec (9.0-12.0); Total Bilirubin 0.4 mg/dL (0.2-1.3); Total Protein 6.1 g/dL (6.3-8.2)
[2019-03-15 15:35] LABS: Anisocytosis Slight; Basophils % (A) 0 %; D-Dimer 0.71 mg/L FEU (<0.60); Eosinophils % (A) 0 %; HGB 7.2 gm/dL (11.4-16.0); Hypochromasia Slight; Lymphocytes # (A) 0.5 k/uL (1.0-4.8); Lymphocytes % (A) 10 %; MCH 33.3 pg (25.0-35.0); MCHC 32.7 g/dL (31.0-37.0); MCV 101.7 fL (80.0-100.0); Macrocytosis Slight; Mean Platelet Volume 10.6; Monocytes # (A) 0.3 k/uL (0-1.0); Monocytes % (A) 7 %; Neutrophils # (A) 4.2 k/uL (1.3-7.7); Neutrophils % (A) 81 %; Poikilocytosis Moderate; RBC 2.16 m/uL (3.80-5.40); WBC 5.2 k/uL (3.8-10.6)
--- NOTE | 2019-03-15 15:47 | XR ---
EXAMINATION TYPE: XR chest 2V DATE OF EXAM: 03/15/2019 COMPARISON: Chest x-ray August 18, 2018 and older x-rays. Most recent chest CT March 14, 2017 and thor [address] spine [address] August 17, 2017. HISTORY: History of COPD with difficulty breathing. TECHNIQUE: Frontal and lateral views of the chest are obtained. FINDINGS: There is background chronic emphysematous change with new small left greater than right pl eural effusions. Scattered sclerotic foci bilaterally redemonstrated with continued progression from older studies. Cardiac silhouette size upper limits of normal more prominent from prior. IMPRESSION: Chronic emphysematous and parenchymal fibrotic changes with new small right greater than left pleural effusions. There are multiple bilateral rib fractures of varying age. Correlate to exc lude nonaccidental elderly trauma. Some lesions are difficult to localize distinctly to ribs and unde rlying metastatic disease needs to be excluded. Lesions are not typical of myeloma. Follow-up repeat chest CT is advised as lesions are new from 2018 CTs.
[2019-03-15 16:13] LABS: Anisocytosis (M) Present; Hypochromasia (M) Present; Platelet Count 33 k/uL (150-450); Polychromasia Present
--- NOTE | 2019-03-15 19:31 | NM ---
EXAMINATION TYPE: NM pul vent and perfuse DATE OF EXAM: 03/15/2019 COMPARISON: NONE HISTORY: Short of breath TECHNIQUE: Utilizing inhalation of 35 mCi Tc 99m DTPA aerosol and intravenous injection of 4.77 mCi of Tc 99m MAA, ventilation and perfusion images are acquired post injection in multiple projections. FINDINGS: There is decreased ventilation in the periphery of the lungs consistent with diffuse airway disease. I see no significant ventilation/perfusion mismatch. The perfusion images appear more normal than the ventilation images. IMPRESSION: There is evidence of bilateral diffuse airway disease. There is a low probability of pulmonary emboli sm. No significant perfusion abnormality.
[2019-03-15] MEDS ORDERED: IPRATROPIUM-ALBUTEROL 3 ML NEB INHALATION STA (20:09)
--- NOTE | 2019-03-15 20:29 | CT ---
EXAMINATION TYPE: CT chest wo con DATE OF EXAM: 03/15/2019 COMPARISON: 03/14/2017 HISTORY: Observe for mets, history of multiple myeloma. CT DLP: 138.1 mGycm Automated exposure control for dose reduction was used. Multiple axial sections were obtained from the thoracic inlet to the diaphragm without contrast. There is extensive coarse subpleural infiltrate in both lungs and more severe in the right lower lobe . There is pleural thickening on the right chest wall. There is a 2.2 cm spiculated mass in the poste rior segment of the right upper lobe near the major fissure. Thoracic aorta is atheromatous. There are few mediastinal lymph nodes that measure up to 1 cm. Exam l imited by lack of contrast. There are no definite hilar masses. There is no pericardial effusion. The re is 1 cm calculus in the left kidney. There are numerous bilateral old rib fractures. There is 1.5 cm osteolytic area in the anterior L1 ve rtebral body. This is slightly increased in size compared to old CT scan. IMPRESSION: Extensive bilateral peripheral pulmonary infiltrates probably related to inflammatory disease. There is a stellate density right upper lobe suspicious for tumor. Pulmonary infiltrates and stellate density appear new compared to old CT scan. Multiple old rib fractures are probably traumatic. Lucent area in the L1 vertebral body is nonspecifi c and slightly increased compared to old exam and could relate to myeloma. Left renal calculus unchan ged.
[2019-03-15] MEDS ORDERED: AZITHROMYCIN 500 MG in SODIUM CHLORIDE 0.9% 250 ML IVPB ONE (21:30)
[2019-03-15] MEDS: SODIUM CHLORIDE 0.9% 1,000 ML IV SCH (22:31)
[2019-03-15] MEDS: IPRATROPIUM-ALBUTEROL 3 ML NEB INHALATION PRN (23:24)
[2019-03-15] MEDS: methylPREDNISolone SOD SUCCI 125 MG/2 ML VIAL IV SCH (23:33)
[2019-03-16] MEDS: IPRATROPIUM-ALBUTEROL 3 ML NEB INHALATION PRN (04:18)
[2019-03-16 06:50] LABS: Glucose,Whole Blood 194 mg/dL (75-99)
[2019-03-16] MEDS: methylPREDNISolone SOD SUCCI 125 MG/2 ML VIAL IV SCH ×2 (06:54→12:25)
[2019-03-16] MEDS: SYMBICORT 160-4.5 MCG INHALER INHALATION SCH ×2 (07:45→19:05)
[2019-03-16] MEDS: IPRATROPIUM-ALBUTEROL 3 ML NEB INHALATION SCH ×4 (07:45→19:05)
[2019-03-16] MEDS ORDERED: APIXABAN 2.5 MG TABLET PO SCH (09:00)
[2019-03-16] MEDS: BRIMONIDINE TARTRATE 0.2% DROPS 5 ML BTL BOTH EYES SCH ×2 (10:09→20:59)
[2019-03-16] MEDS: AZITHROMYCIN 500 MG in SODIUM CHLORIDE 0.9% 250 ML IVPB SCH (10:10)
[2019-03-16] MEDS: METOPROLOL TARTRATE 12.5 MG TAB PO SCH ×2 (10:13→21:00)
[2019-03-16] MEDS: LENALIDOMIDE 5 MG PO SCH (10:13)
[2019-03-16] MEDS: VIT A,C & E-LUTEIN-MINERALS 1 EACH TAB PO SCH (10:14)
[2019-03-16] MEDS: CALCIUM CARB-VIT D 500MG-200UN 1 EACH TAB PO SCH ×2 (10:14→20:59)
[2019-03-16] MEDS: SODIUM CHLORIDE 0.9% 1,000 ML IV SCH (10:17)
[2019-03-16] MEDS: SODIUM BICARBONATE TAB 650 MG TAB PO SCH ×3 (10:17→23:34)
[2019-03-16] MEDS: INSULIN ASPART (NovoLOG) 100 UNIT/ML VIAL SQ SCH ×4 (10:19→20:58)
[2019-03-16 12:14] LABS: Glucose,Whole Blood 204 mg/dL (75-99)
--- NOTE | 2019-03-16 12:56 | P.CNPUL ---
History of Present Illness Consult date: 03/16/19 Reason for consult: dyspnea, pneumonia History of present illness: 67-year-old female patient with known history of COPD and multiple myeloma who is status post bone marrow transplantation at was performed in May 2018, in addition to and chronic kidney disease with a stage III kidney failure and history of CVA, hypertension, hyperlipidemia and previous history of decompensated heart failure and paroxysmal atrial fibrillation for which the patient is on long-term anticoagulation with Eliquis, and chronic pain in addition to chronic anemia thrombocytopenia. The patient has been maintained on a combination of Revlimid Decadron and Keprolis , and she has had multiple hospitalizations in the past for pulmonary issues/chronic pain. This patient presented to the ED yesterday because of increased cough and congestion and worsening shortness of breath. Apparently she's been getting short of breath for the past 1 week. Note that she has history of mild level myeloma. And she has been off her Revlimid for almost 3 weeks for recommen dations that was given to her by her oncologist. The patient was also having increased nausea, episodes of vomiting in diarrhea over the past few days. She felt quite dehydrated and weak and tired and for that reason she came into the ED. She was hemodynamically stable. She underwent a CAT scan of the chest and the CAT scan of the chest showed emphysema. There was extensive bilateral peripheral pulmonary infiltrates related to inflammation/pneumonia. There was also another stellate density in the right upper lobe that looked a bit suspicious for tumor. Nevertheless, this cannot be completely characterized specially the patient is going through with a bout of pneumonia for now. She blake s multiple old rib fractures and she has L1 vertebral compression fracture. She also has a left kidney calculus that has unchanged compared to review his scans. This patient has had multiple bouts of infection/pneumonia. She has been infected also with pseudomonas in the past. She has taken her pneumonia shot and she has taken her flu shot for this current year. Review of Systems Constitutional: Reports chronic pain, Reports fatigue, Reports lethargy, Reports weakness Eyes: denies blurred vision, denies bulging eye, denies decreased vision Ears: deny: decreased hearing, ear discharge, earache, tinnitus Ears, nose, mouth and throat: Denies headache, Denies sore throat Cardiovascular: Reports decreased exercise tolerance, Reports dyspnea on exertion, Reports orthopnea, Reports palpitations, Reports paroxysmal nocturnal dyspnea, Reports rapid heart beat, Reports shortness of breath Respiratory: Reports dyspnea, Reports respiratory infections, Reports wheezing Gastrointestinal: Reports loss of appetite, Reports nausea and the patient had increased emesis and diarrhea prior to her coming into the hospital. Genitourinary: Reports dysuria, Denies hematuria Musculoskeletal: Reports limitation of motion, Reports low back pain, Reports muscle weakness, Reports myalgias Musculoskeletal: absent: ankle pain, ankle stiffness, ankle swelling Integumentary: Reports rash Neurological: Reports numbness, Reports weakness Psychiatric: Denies anxiety, Denies depression Endocrine: Reports fatigue Hematologic/Lymphatic: Reports as per HPI Allergic/Immunologic: Reports as per HPI Past Medical History Past Medical History: Atrial Fibrillation, Atrial Flutter, Cancer, Heart Failure, COPD, CVA/TIA, Eye Disorder, Hyperlipidemia, Hypertension, Osteoarthritis (OA), Renal Disease, Rheumatoid Arthritis (RA) Additional Past Medical History / Comment(s): 11/09/17 acute on chronic CHF exacer bation, aflutter/afib with RVR/acute hypoxic respiratory failure/vavluar disease, pulmonary htn; 04/2017 pt diagnosed with multiple myeloma/bone cancer/CRD stage IV d/t myeloma per pt and currently receiving chemotherapy pill for maintance, bicytopenia 2ndary to chemo, low albumin, chronic anemia, 2009 CVA with L leg weakness, cervical cancer with surgery, bilateral glaucoma, L eye macular degeneration, past back and R leg pain but none since lumbar fusion History of Any Multi-Drug Resistant Organisms: None Reported Past Surgical History: Back Surgery, Breast Surgery Additional Past Surgical History / Comment(s): LUMBAR FUSION 2015, BREAST IMPLANTS IN THE 70'S REMOVED MID 'S, CERVIX REMOVED D/T CANCER. Past Anesthesia/Blood Transfusion Reactions: No Reported Reaction Additional Past Anesthesia/Blood Transfusion Reaction / Comment(s): Pt has received blood in past and last time 10/2017 developed rash and was tx with steroids. Pt had blood tranfusion in May 2018 and reports no reaction. Past Psychological History: Anxiety Additional Psychological History / Comment(s): Pt resides with her spouse and nonfamily caregiver. She ambulates with a cane. She no longer drives, since her cancer diagnosis. She gets to appts by family, friends or takes a cab, if carton and can supply supervisor is available she takes her. Smoking Status: Former smoker Past Alcohol Use History: None Reported Additional Past Alcohol Use History / Comment(s): started smoking at age 19 smoked just under 1 ppd. quit 2014 Past Drug Use History: None Reported - Past Family History Father Family Medical History: Pneumonia Additional Family Medical History / Comment(s): FATHER RECENTLY FROM PNEUMONIA. HE WAS 100 YRS OLD. Mother Family Medical History: Cancer Additional Family Medical History / Comment(s): LUNG CANCER. MOTHER WAS A SMOKER. Medications and Allergies Home Medications Medication Instructions Recorded Confirmed Type Sertraline [Zoloft] 200 mg PO AC-LUNCH 01/28/17 03/15/19 History Calcitriol 0.25 mcg PO HS 10/23/17 03/15/19 History Acyclovir 400 mg PO HS 12/28/17 03/15/19 History Calcium Carb-Vit D 500Mg-200Un 1 tab PO BID 08/15/18 03/15/19 History [Oscal 500+D] Metoprolol Tartrate [Lopressor] 12.5 mg PO BID 08/15/18 03/15/19 History Sodium Bicarbonate Tab 650 mg PO TID 08/15/18 03/15/19 History guaiFENesin [Mucinex] 1,200 mg PO HS 08/15/18 03/15/19 History Budesonide-Formot 160-4.5 Mcg 2 puff INHALATION RT-BID #1 each 08/20/18 03/15/19 Rx [Symbicort 160-4.5 Mcg Inhaler] Potassium Chloride [Klor-Con 20] 20 meq PO HS 09/10/18 03/15/19 History Albuterol Nebulized [Ventolin 2.5 mg INHALATION RT-Q6H PRN 03/15/19 03/15/19 History Nebulized] Apixaban [Eliquis] 2.5 mg PO BID 03/15/19 03/15/19 History Brimonidine Tartrate [Alphagan P 1 drops BOTH EYES BID 03/15/19 03/15/19 History 0.1% Ophth Soln] Latanoprost [Xalatan 0.005%] 1 drop BOTH EYES HS 03/15/19 03/15/19 History Lenalidomide [Revlimid] 5 mg PO DAILY 03/15/19 03/15/19 History Vit C/E/Zn/Coppr/Lutein/Zeaxan 1 cap PO DAILY 03/15/19 03/15/19 History [Preservision Areds 2 Softgel] Allergies Allergy/AdvReac Type Severity Reaction Status Date / Time Penicillins Allergy Unknown Unknown Verified 03/15/19 20:54 Cephalosporins Allergy Unknown Verified 03/15/19 20:54 ciprofloxacin HCl Allergy Lip Verified 03/15/19 20:54 [From Cipro] swelling, itching codeine Allergy Unknown Verified 03/15/19 20:54 Sulfa (Sulfonamide Allergy Unknown Verified 03/15/19 20:54 Antibiotics) Physical Exam Vitals: Vital Signs Temp Pulse Pulse Resp BP BP Pulse Ox 03/16/19 11:39 96 03/16/19 11:28 98 03/16/19 10:09 116/55 03/16/19 10:05 102 H 116/53 03/16/19 07:59 92 03/16/19 07:45 90 03/16/19 07:00 98.2 F 93 20 119/50 98 03/16/19 04:37 84 03/16/19 04:18 84 03/16/19 04:16 16 03/16/19 00:43 98.4 F 117 H 17 146/60 97 03/16/19 00:00 100 18 03/15/19 23:39 84 03/15/19 23:24 88 96 03/15/19 21:29 98.1 F 100 18 124/47 98 03/15/19 20:53 87 03/15/19 20:38 86 03/15/19 17:30 93 16 108/57 97 03/15/19 17:12 99.0 F 104 H 22 108/57 96 03/15/19 15:00 101 H 25 H 116/55 97 03/15/19 14:38 67 L 03/15/19 14:28 100.2 F H 120 H 22 116/55 96 Intake and Output 03/15/19 03/16/19 03/16/19 22:59 06:59 14:59 Other: Voiding Method Toilet Toilet Diaper Diaper # Voids 0 # Bowel Movements 0 Weight 45.359 kg General appearance: alert, little respiratory distress, currently on 4 l by by nasal cannula. Head exam: Head exam was generally normal. There was no scleral icterus or corneal arcus. Mucous membranes were moist. Eye exam: PERRL, EOMI. nonicterus ENT exam: Neck Supple, Trachea Midline, Oral Thrush, dry mucus membranes Respiratory exam: mild respiratory distress, scattered expiratory wheezes, accessory muscle use noted, decreased breath sounds bibasilar, Cardiovascular Exam: tachycardia, irregular rhythm, GI/Abdominal exam: soft, normal bowel sounds, non-distended, non tender Extremities exam: no edema, Positive peripheral pulses Neurological exam: alert, oriented X3, CN II-XII intact Psychiatric exam: normal affect, normal mood Skin exam: Present: warm, dry, intact, normal color. Hyperpigmented areas from recent systemic rash, which has improved since evaluation last week. Results - Laboratory Findings CBC and BMP: 03/15/19 14:51 03/15/19 14:51 ABG WBC 5.2 k/uL (3.8-10.6) 03/15/19 14:51 RBC 2.16 m/uL (3.80-5.40) L 03/15/19 14:51 Hgb 7.2 gm/dL (11.4-16.0) L 03/15/19 14:51 Hct 22.0 % (34.0-46.0) L 03/15/19 14:51 MCV 101.7 fL (80.0-100.0) H 03/15/19 14:51 MCH 33.3 pg (25.0-35.0) 03/15/19 14:51 MCHC 32.7 g/dL (31.0-37.0) 03/15/19 14:51 RDW 17.0 % (11.5-15.5) H 03/15/19 14:51 Plt Count 33 k/uL (150-450) L 03/15/19 14:51 Neutrophils % 81 % 03/15/19 14:51 Lymphocytes % 10 % 03/15/19 14:51 Monocytes % 7 % 03/15/19 14:51 Eosinophils % 0 % 03/15/19 14:51 Basophils % 0 % 03/15/19 14:51 Neutrophils # 4.2 k/uL (1.3-7.7) 03/15/19 14:51 Lymphocytes # 0.5 k/uL (1.0-4.8) L 03/15/19 14:51 Monocytes # 0.3 k/uL (0-1.0) 03/15/19 14:51 Eosinophils # 0.0 k/uL (0-0.7) 03/15/19 14:51 Basophils # 0.0 k/uL (0-0.2) 03/15/19 14:51 Manual Slide Review Performed 03/15/19 14:51 Polychromasia Present 03/15/19 14:51 Hypochromasia Slight 03/15/19 14:51 Hypochromasia (manual) Present 03/15/19 14:51 Poikilocytosis Moderate 03/15/19 14:51 Anisocytosis Slight 03/15/19 14:51 Anisocytosis (manual) Present 03/15/19 14:51 Macrocytosis Slight 03/15/19 14:51 PT 10.4 sec (9.0-12.0) 03/15/19 14:51 INR 1.0 (<1.2) 03/15/19 14:51 APTT 29.7 sec (22.0-30.0) 03/15/19 14:51 D-Dimer 0.71 mg/L FEU (<0.60) H 03/15/19 14:51 Sodium 143 mmol/L (137-145) 03/15/19 14:51 Potassium 4.3 mmol/L (3.5-5.1) 03/15/19 14:51 Chloride 116 mmol/L (98-107) H 03/15/19 14:51 Carbon Dioxide 15 mmol/L (22-30) L 03/15/19 14:51 Anion Gap 12 mmol/L 03/15/19 14:51 BUN 31 mg/dL (7-17) H 03/15/19 14:51 Creatinine 2.13 mg/dL (0.52-1.04) H 03/15/19 14:51 Est GFR (CKD-EPI)AfAm 27 (>60 ml/min/1.73 sqM) 03/15/19 14:51 Est GFR (CKD-EPI)NonAf 23 (>60 ml/min/1.73 sqM) 03/15/19 14:51 Glucose 119 mg/dL (74-99) H 03/15/19 14:51 POC Glucose (mg/dL) 204 mg/dL (75-99) H 03/16/19 11:29 POC Glu [employer] ID Fariba Coronado 03/16/19 11:29 Plasma Lactic Acid Afshin 0.9 mmol/L (0.7-2.0) 03/15/19 14:51 Calcium 7.0 mg/dL (8.4-10.2) L 03/15/19 14:51 Total Bilirubin 0.4 mg/dL (0.2-1.3) 03/15/19 14:51 AST 28 U/L (14-36) 03/15/19 14:51 ALT 33 U/L (4-34) 03/15/19 14:51 Alkaline Phosphatase 88 U/L (38-126) 03/15/19 14:51 Troponin I 0.016 ng/mL (0.000-0.034) 03/15/19 14:51 Total Protein 6.1 g/dL (6.3-8.2) L 03/15/19 14:51 Albumin 3.4 g/dL (3.5-5.0) L 03/15/19 14:51 Influenza Type A RNA Not Detected (Not Detectd) 03/15/19 14:53 Influenza Type B (PCR) Not Detected (Not Detectd) 03/15/19 14:53 PT/INR, D-dimer PT 10.4 sec (9.0-12.0) 03/15/19 14:51 INR 1.0 (<1.2) 03/15/19 14:51 D-Dimer 0.71 mg/L FEU (<0.60) H 03/15/19 14:51 Abnormal lab findings: Abnormal Labs 03/15/19 03/15/19 03/15/19 14:51 14:51 14:51 RBC 2.16 L Hgb 7.2 L Hct 22.0 L MCV 101.7 H RDW 17.0 H Plt Count 33 L Lymphocytes # 0.5 L D-Dimer 0.71 H Chloride 116 H Carbon Dioxide 15 L BUN 31 H Creatinine 2.13 H Glucose 119 H POC Glucose (mg/dL) Calcium 7.0 L Total Protein 6.1 L Albumin 3.4 L 03/16/19 03/16/19 06:45 11:29 RBC Hgb Hct MCV RDW Plt Count Lymphocytes # D-Dimer Chloride Carbon Dioxide BUN Creatinine Glucose POC Glucose (mg/dL) 194 H 204 H Calcium Total Protein Albumin - Diagnostic Findings Chest x-ray: image reviewed CT scan - chest: image reviewed Assessment and Plan Plan: 1 acute bilateral pneumonia right more than left with secondary COPD exacerbation . This patient has had multiple bouts of respiratory tract infec tion pneumonias in the past. She is chronically immunosuppressed related to her myeloma. She has been infected with pseudomonas in the past. Currently she is coming in with some gastrointestinal symptoms of worsening shortness of breath and she has been diagnosed having bilateral pneumonia based on the CAT scan findings. 2 right upper lobe stellate lesion that looks a bit spiculated. Note that she is known to have COPD. Underlying malignancy needs to be ruled out of a lung primary type. I would suggest completing the course of antibiotics and treating the pneumonia repeating the CAT scan prior to making any commitments regarding the right upper lobe lesion. 3 multiple myeloma maintained on a combination of Revlimid and the patient is post bone marrow transplantation 4 chronic kidney disease stage 3-4 5 congestion heart failure with improved left ventricular function and based on the echocardiogram that was done recently her EF is back to normal 6 paroxysmal atrial fibrillation, current rhythm is sinus 7 COPD 8 previous history of CVA 9 hypertension 10 hyperlipidemia 11 chronic bony aches secondary to multiple myeloma 12 pancytopenia with a component of anemia, leukopenia and thrombocytopenia, all related to multiple myeloma 13 remote history of cervical cancer 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 There is a possibility this may be a primary bronchogenic carcinoma. Nevertheless, I do not want to commit any further workup until the patient is fully treated for pneumonia and repeat CAT scan of the chest done Keep the Revlimid on hold The patient has thrombocytopenia and I think is reasonable to stop Eliquis for now We'll continue to follow
[2019-03-16] MEDS ORDERED: CEFEPIME 2 GM in SODIUM CHLORIDE 0.9% 100 ML IVPB ONE (13:00)
[2019-03-16 13:49] VITALS: BMI 17.2
[2019-03-16] MEDS: SERTRALINE 100 MG TAB PO SCH (14:29)
--- NOTE | 2019-03-16 16:11 | P.HPIM ---
History of Present Illness H&P Date: 03/16/19 Chief Complaint: Short of breath cough congested History of presenting complaint: This is a very pleasant 68-year-old patient of Dr. Villalobos. Chronic stable medical conditions include paroxysmal atrial flutter fibrillation, , CHF with an EF of 50-55%, tricuspid and mitral regurgitation, secondary pulmonary hypertension, chronic kidney disease stage IV, hypertension, hyperlipidemia,. Patient also being treated for multiple myeloma. on REVLIMID that she takes daily . Patient now presents with cough and sputum production short of breath some wheezing. For about a week. Also had nausea vomiting and diarrhea for a week. Feels totally rundown exhausted. Admitted for the same. Appetite poor. Also had fever Review of systems: GEN.: Weak tired loss of appetite EYES: None HEENT: None NECK: None RESPIRATORY: As above CARDIOVASCULAR: None GASTROINTESTINAL: As above GENITOURINARY: None MUSCULOSKELETAL: Pain in different joints LYMPHATICS: None HEMATOLOGICAL: None PSYCHIATRY: Anxious NEUROLOGICAL: None Past medical history: To include CHF EF 50-55%, atrial flutter fibrillation, moderate tricuspid and severe mitral regurgitation, secondary portal hypertension, COPD, multiple myeloma, chronic kidney disease, essential hypertension, hyperlipidemia, chronic anemia from multiple myeloma, medical debility. Social history: Smoked from the age of 19 for about 50 years about a pack a day stopped in 2014. Alcohol rarely. . Family history: Prostate cancer Physical examination: VITAL SIGNS: 100.2, 120, 22, 106/55, 96% on 2 L GENERAL: BMI 17.2, with some loss of subcutaneous fat tired EYES: [Pupils equal. Conjunctiva pale HEENT: External appearance of nose and ears normal, oral cavity grossly normal. NECK: JVD not raised; masses not palpable. HEART: First and second heart sounds are normal; no edema. LUNGS: Respiratory rate increased, decreased breath sounds prolonged expiration and occasional crackle ABDOMEN: Soft, nontender, liver spleen not palpable, no masses palpable. PSYCH: [Alert and oriented x3; mood and affect anxious . NEUROLOGICAL: Cranial nerves grossly intact; no facial asymmetry, power and sensation grossly intact. LYMPHATICS: No lymph nodes palpable in the axilla and neck MUSCULOSKELETAL: Diffuse wasting of muscles Investigations, reviewed in the clinical context: White count 5.2 hemoglobin 7.2 platelets 33 potassium 4.3 white count 15 BUN 31 and creatinine 2.13 Patient's labs from September 2018 show Licha 40 nitrogen of 2.51 Chest x-ray film personally reviewed by me-scattered infiltrates CT chest without contrast extensive coarse subpleural infiltrates in both lungs more severe of the right side, 2.2 cm spiculated mass in the posterior segment of the right upper lobe near the major fissure, left kidney calculus, numerous bilateral old rib fractures Assessment: -Bilateral extensive pneumonia, suspect gram-negative organism in an immunosuppressed patient, causing sepsis, POA -Bicytopenia due to multiple myeloma -Paroxysmal atrial flutter and fibrillation -Acute COPD exacerbation an ex-smoker -Chronic congestive heart failure from systolic and diastolic dysfunction EF 50- 55% -Moderate tricuspid and severe mitral regurgitation, nontraumatic -Severe secondary pulmonary hypertension secondary to CHF and COPD -Multiple myeloma on chemotherapy -Chronic kidney disease secondary to multiple myeloma stage IV -Essential hypertension -Hyperlipidemia -Severe protein calorie malnutrition due to poor oral intake -Chronic medical debility -Multiple old rib fractures due to multiple myeloma -New spiculated lung mass 2.2 cm Plan: Patient is an IV cefepime, IV Solu-Medrol, DuoNeb. Home medications resumed. Care was discussed with the patient. Questions were answered. Pulmonary Dr. Del Cid was consulted. Also consult hematology with whom patient follows victoria mai. Past Medical History Past Medical History: Atrial Fibrillation, Atrial Flutter, Cancer, Heart Failure, COPD, CVA/TIA, Eye Disorder, Hyperlipidemia, Hypertension, Osteoarthritis (OA), Renal Disease, Rheumatoid Arthritis (RA) Additional Past Medical History / Comment(s): 11/09/17 acute on chronic CHF exacerbation, aflutter/afib with RVR/acute hypoxic respiratory failure/vavluar disease, pulmonary htn; 04/2017 pt diagnosed with multiple myeloma/bone cancer/CRD stage IV d/t myeloma per pt and currently receiving chemotherapy pill for maintance, bicytopenia 2ndary to chemo, low albumin, chronic anemia, 2010 CVA with L leg weakness, cervical cancer with surgery, bilateral glaucoma, L eye macular degeneration, past back and R leg pain but none since lumbar fusion History of Any Multi-Drug Resistant Organisms: None Reported Past Surgical History: Back Surgery, Breast Surgery Additional Past Surgical History / Comment(s): LUMBAR FUSION 2015, BREAST IMP LANTS IN THE 70'S REMOVED MID 'S, CERVIX REMOVED D/T CANCER. Past Anesthesia/Blood Transfusion Reactions: No Reported Reaction Additional Past Anesthesia/Blood Transfusion Reaction / Comment(s): Pt has received blood in past and last time 10/2017 developed rash and was tx with steroids. Pt had blood tranfusion in May 2018 and reports no reaction. Past Psychological History: Anxiety Additional Psychological History / Comment(s): Pt resides with her spouse and nonfamily caregiver. She ambulates with a cane. She no longer drives, since her cancer diagnosis. She gets to [facility] by family, friends or takes a cab, if extension agent is available she takes her. Smoking Status: Former smoker Past Alcohol Use History: None Reported Additional Past Alcohol Use History / Comment(s): started smoking at age 19 smoked just under 1 ppd. quit 2014 Past Drug Use History: None Reported - Past Family History Father Family Medical History: Pneumonia Additional Family Medical History / Comment(s): FATHER RECENTLY FROM PNEUMONIA. HE WAS 100 YRS OLD. Mother Family Medical History: Cancer Additional Family Medical History / Comment(s): LUNG CANCER. MOTHER WAS A SMOKER. Medications and Allergies Home Medications Medication Instructions Recorded Confirmed Type Sertraline [Zoloft] 200 mg PO AC-LUNCH 01/28/17 03/15/19 History Calcitriol 0.25 mcg PO HS 10/23/17 03/15/19 History Acyclovir 400 mg PO HS 12/28/17 03/15/19 History Calcium Carb-Vit D 500Mg-200Un 1 tab PO BID 08/15/18 03/15/19 History [Oscal 500+D] Metoprolol Tartrate [Lopressor] 12.5 mg PO BID 08/15/18 03/15/19 History Sodium Bicarbonate Tab 650 mg PO TID 08/15/18 03/15/19 History guaiFENesin [Mucinex] 1,200 mg PO HS 08/15/18 03/15/19 History Budesonide-Formot 160-4.5 Mcg 2 puff INHALATION RT-BID #1 each 08/20/18 03/15/19 Rx [Symbicort 160-4.5 Mcg Inhaler] Potassium Chloride [Klor-Con 20] 20 meq PO HS 09/10/18 03/15/19 History Albuterol Nebulized [Ventolin 2.5 mg INHALATION RT-Q6H PRN 03/15/19 03/15/19 History Nebulized] Apixaban [Eliquis] 2.5 mg PO BID 03/15/19 03/15/19 History Brimonidine Tartrate [Alphagan P 1 drops BOTH EYES BID 03/15/19 03/15/19 History 0.1% Ophth Soln] Latanoprost [Xalatan 0.005%] 1 drop BOTH EYES HS 03/15/19 03/15/19 History Lenalidomide [Revlimid] 5 mg PO DAILY 03/15/19 03/15/19 History Vit C/E/Zn/Coppr/Lutein/Zeaxan 1 cap PO DAILY 03/15/19 03/15/19 History [Preservision Areds 2 Softgel] Allergies Allergy/AdvReac Type Severity Reaction Status Date / Time Penicillins Allergy Unknown Unknown Verified 03/15/19 20:54 Cephalosporins Allergy Unknown Verified 03/15/19 20:54 ciprofloxacin HCl Allergy Lip Verified 03/15/19 20:54 [From Cipro] swelling, itching codeine Allergy Unknown Verified 03/15/19 20:54 Sulfa (Sulfonamide Allergy Unknown Verified 03/15/19 20:54 Antibiotics) Physical Exam Vitals: Vital Signs Temp Pulse Pulse Resp BP BP Pulse Ox 03/16/19 10:09 116/55 03/16/19 10:05 102 H 116/53 03/16/19 07:59 92 03/16/19 07:45 90 03/16/19 07:00 98.2 F 93 20 119/50 98 03/16/19 04:37 84 03/16/19 04:18 84 03/16/19 04:16 16 03/16/19 00:43 98.4 F 117 H 17 146/60 97 03/16/19 00:00 100 18 03/15/19 23:39 84 03/15/19 23:24 88 96 03/15/19 21:29 98.1 F 100 18 124/47 98 03/15/19 20:53 87 03/15/19 20:38 86 03/15/19 17:30 93 16 108/57 97 03/15/19 17:12 99.0 F 104 H 22 108/57 96 03/15/19 15:00 101 H 25 H 116/55 97 03/15/19 14:38 67 L 03/15/19 14:28 100.2 F H 120 H 22 116/55 96 Intake and Output 03/15/19 03/16/19 03/16/19 22:59 06:59 14:59 Other: Voiding Method Toilet Toilet Diaper Diaper # Voids 0 # Bowel Movements 0 Weight 45.359 kg Results CBC & Chem 7: 03/15/19 14:51 03/15/19 14:51 Labs: Abnormal Lab Results - Last 24 Hours (Table) 03/15/19 03/15/19 03/15/19 Range/Units 14:51 14:51 14:51 RBC 2.16 L (3.80-5.40) m/uL Hgb 7.2 L (11.4-16.0) gm/dL Hct 22.0 L (34.0-46.0) % MCV 101.7 H (80.0-100.0) fL RDW 17.0 H (11.5-15.5) % Plt Count 33 L (150-450) k/uL Lymphocytes # 0.5 L (1.0-4.8) k/uL D-Dimer 0.71 H (<0.60) mg/L FEU Chloride 116 H (98-107) mmol/L Carbon Dioxide 15 L (22-30) mmol/L BUN 31 H (7-17) mg/dL Creatinine 2.13 H (0.52-1.04) mg/dL Glucose 119 H (74-99) mg/dL POC Glucose (mg/dL) (75-99) mg/dL Calcium 7.0 L (8.4-10.2) mg/dL Total Protein 6.1 L (6.3-8.2) g/dL Albumin 3.4 L (3.5-5.0) g/dL 03/16/19 Range/Units 06:45 RBC (3.80-5.40) m/uL Hgb (11.4-16.0) gm/dL Hct (34.0-46.0) % MCV (80.0-100.0) fL RDW (11.5-15.5) % Plt Count (150-450) k/uL Lymphocytes # (1.0-4.8) k/uL D-Dimer (<0.60) mg/L FEU Chloride (98-107) mmol/L Carbon Dioxide (22-30) mmol/L BUN (7-17) mg/dL Creatinine (0.52-1.04) mg/dL Glucose (74-99) mg/dL POC Glucose (mg/dL) 194 H (75-99) mg/dL Calcium (8.4-10.2) mg/dL Total Protein (6.3-8.2) g/dL Albumin (3.5-5.0) g/dL
[2019-03-16 17:07] LABS: Glucose,Whole Blood 203 mg/dL (75-99)
[2019-03-16] MEDS: methylPREDNISolone SOD SUCCI 40 MG/ML 1 ML VIAL IV SCH ×2 (17:20→23:34)
[2019-03-16 20:41] LABS: Glucose,Whole Blood 215 mg/dL (75-99)
[2019-03-16] MEDS: CALCITRIOL 0.25 MCG CAP PO SCH (20:59)
[2019-03-16] MEDS: POTASSIUM CHLORIDE ER 20 MEQ TAB.ER PO SCH (20:59)
[2019-03-16] MEDS: LATANOPROST 0.005% OPHTH DROPS 2.5 ML BTL BOTH EYES SCH (20:59)
[2019-03-16] MEDS: ACYCLOVIR 200 MG CAP PO SCH (20:59)
[2019-03-16] MEDS: guaiFENesin 600 MG TABLET.ER PO SCH (20:59)
[2019-03-17] MEDS: SODIUM CHLORIDE 0.9% 1,000 ML IV SCH ×2 (02:24→12:50)
[2019-03-17 06:58] LABS: Glucose,Whole Blood 145 mg/dL (75-99)
[2019-03-17] MEDS: IPRATROPIUM-ALBUTEROL 3 ML NEB INHALATION SCH ×4 (08:07→19:57)
[2019-03-17] MEDS: SYMBICORT 160-4.5 MCG INHALER INHALATION SCH ×2 (08:07→19:57)
[2019-03-17] MEDS: methylPREDNISolone SOD SUCCI 40 MG/ML 1 ML VIAL IV SCH ×2 (08:30→16:49)
[2019-03-17] MEDS: CEFEPIME 1 GM in SODIUM CHLORIDE 0.9% 50 ML IVPB SCH (08:33)
[2019-03-17] MEDS: INSULIN ASPART (NovoLOG) 100 UNIT/ML VIAL SQ SCH ×4 (08:35→20:56)
[2019-03-17] MEDS: METOPROLOL TARTRATE 12.5 MG TAB PO SCH ×2 (08:37→20:45)
[2019-03-17] MEDS: BRIMONIDINE TARTRATE 0.2% DROPS 5 ML BTL BOTH EYES SCH ×2 (08:39→20:46)
[2019-03-17] MEDS: SODIUM BICARBONATE TAB 650 MG TAB PO SCH ×3 (08:40→20:46)
[2019-03-17] MEDS: CALCIUM CARB-VIT D 500MG-200UN 1 EACH TAB PO SCH ×2 (08:40→20:45)
[2019-03-17] MEDS: VIT A,C & E-LUTEIN-MINERALS 1 EACH TAB PO SCH (08:40)
[2019-03-17] MEDS: LENALIDOMIDE 5 MG PO SCH (08:43)
[2019-03-17] MEDS: AZITHROMYCIN 500 MG in SODIUM CHLORIDE 0.9% 250 ML IVPB SCH (10:03)
[2019-03-17 11:49] LABS: Glucose,Whole Blood 121 mg/dL (75-99)
--- NOTE | 2019-03-17 12:10 | P.PN ---
Subjective Progress Note Date: 03/17/19 67-year-old female patient with known history of COPD and multiple myeloma who is status post bone marrow transplantation at was performed in May 2018, in addition to and chronic kidney disease with a stage III kidney failure and history of CVA, hypertension, hyperlipidemia and previous history of dec ompensated heart failure and paroxysmal atrial fibrillation for which the patient is on long-term anticoagulation with Eliquis, and chronic pain in addition to chronic anemia thrombocytopenia. The patient has been maintained on a combination of Revlimid Decadron and Keprolis , and she has had multiple hospitalizations in the past for pulmonary issues/chronic pain. This patient presented to the ED yesterday because of increased cough and congestion and worsening shortness of breath. Apparently she's been getting short of breath for the past 1 week. Note that she has history of mild level my eloma. And she has been off her Revlimid for almost 3 weeks for recommendations that was given to her by her oncologist. The patient was also having increased nausea, episodes of vomiting in diarrhea over the past few days. She felt quite dehydrated and weak and tired and for that reason she came into the ED. She was hemodynamically stable. She underwent a CAT scan of the chest and the CAT scan of the chest showed emphysema. There was extensive bilateral peripheral pulmonary infiltrates related to inflammation/pneumonia. There was also another stellate density in the right upper lobe that looked a bit suspicious for tumor. Nevertheless, this cannot be completely characterized specially the patient is going through with a bout of pneumonia for now. She has multiple old rib fractures and she has L1 vertebral compression fracture. She also has a left kidney calculus that has unchanged compared to review his scans. This patient has had multiple bouts of infection/pneumonia. She has been infected also with pseudomonas in the past. She has taken her pneumonia shot and she has taken her flu shot for this current year. On 03/17/2019, Lucero is being seen for a follow-up. She is feeling better. She is less congested. She is unable to bring up much sputum. She is not hav ing any specific complaints patient on 2 L of oxygen by nasal cannula. She is currently on a combination of cefepime and Zithromax. As mentioned earlier, there is bilateral pneumonia in addition to a stellate lesion in the right upper lobe that needs to be monitored at a later stage. Objective - Vital Signs Vital signs: Vital Signs Temp 98.0 F 03/17/19 07:00 Pulse 92 03/17/19 11:53 Resp 18 03/17/19 07:00 BP 127/78 03/17/19 07:00 Pulse Ox 98 03/17/19 07:00 Intake & Output 03/16/19 03/17/19 03/17/19 18:59 06:59 18:59 Intake Total 800 400 Output Total 800 Balance 800 -400 Weight 45.359 kg Intake: IV 800 400 Sodium Chloride 0.9% 1, 800 400 000 ml @ 100 mls/hr IV . Q10H [facility] Rx#:[id number] Output: Urine 800 Other: Voiding Method Toilet Bedside Commode Diaper # Voids 2 1 - Exam General appearance: alert, little respiratory distress, currently on 2 l by by nasal cannula. Head exam: Head exam was generally normal. There was no scleral icterus or corneal arcus. Mucous membranes were moist. Eye exam: PERRL, EOMI. nonicterus ENT exam: Neck Supple, Trachea Midline, Oral Thrush, dry mucus membranes Respiratory exam: mild respiratory distress, scattered expiratory wheezes, accessory muscle use noted, decreased breath sounds bibasilar, Cardiovascular Exam: tachycardia, irregular rhythm, GI/Abdominal exam: soft, normal bowel sounds, non-distended, non tender Extremities exam: no edema, Positive peripheral pulses Neurological exam: alert, oriented X3, CN II-XII intact Psychiatric exam: normal affect, normal mood Skin exam: Present: warm, dry, intact, normal color. Hyperpigmented areas from recent systemic rash, which has improved since evaluation last week. - Labs CBC & Chem 7: 03/15/19 14:51 03/15/19 14:51 Labs: Abnormal Lab Results - Last 24 Hours (Table) 03/16/19 03/16/19 03/16/19 Range/Units 11:29 16:45 20:40 POC Glucose (mg/dL) 204 H 203 H 215 H (75-99) mg/dL 03/17/19 03/17/19 Range/Units 06:55 11:35 POC Glucose (mg/dL) 145 H 121 H (75-99) mg/dL Microbiology - Last 24 Hours (Table) 03/15/19 14:51 Blood Culture - Preliminary Blood No Growth after 24 hours Assessment and Plan Plan: 1 acute bilateral pneumonia right more than left with secondary COPD exacerbation . This patient has had multiple bouts of respiratory tract infection pneumonias in the past. She is chronically immunosuppressed related to her myeloma. She has been infected with pseudomonas in the past. Currently she is coming in with some gastrointestinal symptoms of worsening shortness of breath and she has been diagnosed having bilateral pneumonia based on the CAT scan findings. 2 right upper lobe stellate lesion that looks a bit spiculated. Note that she is known to have COPD. Underlying malignancy needs to be ruled out of a lung primary type. I would suggest completing the course of antibiotics and treating the pneumonia repeating the CAT scan prior to making any commitments regarding the right upper lobe lesion. 3 multiple myeloma maintained on a combination of Revlimid and the patient is post bone marrow transplantation 4 chronic kidney disease stage 3-4 5 congestion heart failure with improved left ventricular function and based on the echocardiogram that was done recently her EF is back to normal 6 paroxysmal atrial fibrillation, current rhythm is sinus 7 COPD 8 previous history of CVA 9 hypertension 10 hyperlipidemia 11 chronic bony aches secondary to multiple myeloma 12 pancytopenia with a component of anemia, leukopenia and thrombocytopenia, all related to multiple myeloma 13 remote history of cervical cancer 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 There is a possibility this may be a primary bronchogenic carcinoma. Nevertheless, I do not want to commit any further workup until the patient is fully treated for pneumonia and repeat CAT scan of the chest done. Also, the patient has thrombocytopenia and this needs to be handled by oncology be far being considered for biopsy. This was discussed with the patient. Keep the Revlimid on hold The patient has thrombocytopenia and I think is reasonable to stop Eliquis for now We'll continue to follow
[2019-03-17] MEDS: SERTRALINE 100 MG TAB PO SCH (12:49)
[2019-03-17 17:08] LABS: Glucose,Whole Blood 151 mg/dL (75-99)
--- NOTE | 2019-03-17 18:19 | P.CONS ---
History of Present Illness - Reason for Consult Consult date: 03/17/19 multiple myeloma, lung mass - Chief Complaint lung lesion - History of Present Illness This is a pleasant 67-year-old female with a past medical history of COPD, multiple myeloma, coronary artery disease congestive heart failure, hyperlipidemia hypertension and osteoarthritis currently admitted with COPD exacerbation, on chronic anticoagulation with Eliquis with chronic pain issues. Patient has a long-standing history of multiple myeloma status autologous stem cell transplant, currently on maintenance lenalidomide,Carfilzomib and and Decadron with the lenalidomide 5 mg on currently has been off for last 3 weeks. She complains of weakness, nausea vomiting and diarrhea. She has felt weak and tired. CAT scan of chest was done which showed emphysema no pulmonary embolism however patient continues to be on anticoagulation. There was suspected pulmonary infiltrates consistent with pneumonia. Also showed compression vertebral fractures consistent with multiple myeloma history.. Currently being treated with antibiotics. CAT scan showed new spiculated lung nodules suspicious for primary lung malignancy. she had ongoing significant shortness of breath. Past surgical family medical history reviewed, patient denies history of cervical cancer in the past. Review of Systems shortness of breath, pain rest of the review of systems negative Past Medical History Past Medical History: Atrial Fibrillation, Atrial Flutter, Cancer, Heart Failure, COPD, CVA/TIA, Eye Disorder, Hyperlipidemia, Hypertension, Osteoarthritis (OA), Renal Disease, Rheumatoid Arthritis (RA) Additional Past Medical History / Comment(s): 11/09/17 acute on chronic CHF exacerbation, aflutter/afib with RVR/acute hypoxic respiratory failure/vavluar disease, pulmonary htn; 04/2017 pt diagnosed with multiple myeloma/bone cancer/CRD stage IV d/t myeloma per pt and currently receiving chemotherapy pill for maintance, bicytopenia 2ndary to chemo, low albumin, chronic anemia, 2009 CVA with L leg weakness, cervical cancer with surgery, bilateral glaucoma, L eye macular degeneration, past back and R leg pain but none since lumbar fusion History of Any Multi-Drug Resistant Organisms: None Reported Past Surgical History: Back Surgery, Breast Surgery Additional Past Surgical History / Comment(s): LUMBAR FUSION 2015, BREAST IMPLANTS IN THE 70'S REMOVED MID 'S, CERVIX REMOVED D/T CANCER. Past Anesthesia/Blood Transfusion Reactions: No Reported Reaction Additional Past Anesthesia/Blood Transfusion Reaction / Comm: Pt has received blood in past and last time 10/2017 developed rash and was tx with steroids. Pt had blood tranfusion in May 2018 and reports no reaction. Past Psychological History: Anxiety Additional Psychological History / Comment(s): Pt resides with her spouse and nonfamily caregiver. She ambulates with a cane. She no longer drives, since her cancer diagnosis. She gets to appts by family, friends or takes a cab, if furniture restorer is available she takes her. Smoking Status: Former smoker Past Alcohol Use History: None Reported Additional Past Alcohol Use History / Comment(s): started smoking at age 19 smoked just under 1 ppd. quit 2014 Past Drug Use History: None Reported - Past Family History Father Family Medical History: Pneumonia Additional Family Medical History / Comment(s): FATHER RECENTLY FROM PNEUMONIA. HE WAS 100 YRS OLD. Mother Family Medical History: Cancer Additional Family Medical History / Comment(s): LUNG CANCER. MOTHER WAS A SMOKER. Medications and Allergies Home Medications Medication Instructions Recorded Confirmed Type Sertraline [Zoloft] 200 mg PO AC-LUNCH 01/28/17 03/15/19 History Calcitriol 0.25 mcg PO HS 10/23/17 03/15/19 History Acyclovir 400 mg PO HS 12/28/17 03/15/19 History Calcium Carb-Vit D 500Mg-200Un 1 tab PO BID 08/15/18 03/15/19 History [Oscal 500+D] Metoprolol Tartrate [Lopressor] 12.5 mg PO BID 08/15/18 03/15/19 History Sodium Bicarbonate Tab 650 mg PO TID 08/15/18 03/15/19 History guaiFENesin [Mucinex] 1,200 mg PO HS 08/15/18 03/15/19 History Budesonide-Formot 160-4.5 Mcg 2 puff INHALATION RT-BID #1 each 08/20/18 03/15/19 Rx [Symbicort 160-4.5 Mcg Inhaler] Potassium Chloride [Klor-Con 20] 20 meq PO HS 09/10/18 03/15/19 History Albuterol Nebulized [Ventolin 2.5 mg INHALATION RT-Q6H PRN 03/15/19 03/15/19 History Nebulized] Apixaban [Eliquis] 2.5 mg PO BID 03/15/19 03/15/19 History Brimonidine Tartrate [Alphagan P 1 drops BOTH EYES BID 03/15/19 03/15/19 History 0.1% Ophth Soln] Latanoprost [Xalatan 0.005%] 1 drop BOTH EYES HS 03/15/19 03/15/19 History Lenalidomide [Revlimid] 5 mg PO DAILY 03/15/19 03/15/19 History Vit C/E/Zn/Coppr/Lutein/Zeaxan 1 cap PO DAILY 03/15/19 03/15/19 History [Preservision Areds 2 Softgel] Allergies Allergy/AdvReac Type Severity Reaction Status Date / Time Penicillins Allergy Unknown Unknown Verified 03/15/19 20:54 Cephalosporins Allergy Unknown Verified 03/15/19 20:54 ciprofloxacin HCl Allergy Lip Verified 03/15/19 20:54 [From Cipro] swelling, itching codeine Allergy Unknown Verified 03/15/19 20:54 Sulfa (Sulfonamide Allergy Unknown Verified 03/15/19 20:54 Antibiotics) Physical Exam Vitals: Vital Signs Temp Pulse Pulse Resp BP Pulse Ox 03/17/19 15:57 82 03/17/19 15:45 96 03/17/19 15:44 80 03/17/19 15:00 98.3 F 100 16 130/78 97 03/17/19 11:53 92 03/17/19 11:46 96 03/17/19 08:20 92 03/17/19 08:09 88 03/17/19 07:00 98.0 F 103 H 18 127/78 98 03/17/19 02:30 97.9 F 102 H 126/77 98 03/16/19 20:00 20 03/16/19 19:40 97.5 F L 103 H 17 133/54 99 03/16/19 19:17 90 03/16/19 19:06 90 Intake and Output 03/17/19 03/17/19 03/17/19 06:59 14:59 22:59 Intake Total 650 Output Total 800 Balance -800 650 Intake: IV 600 Sodium Chloride 0.9% 1, 600 000 ml @ 100 mls/hr IV . Q10H [facility] Rx#:[id number] Intake, IV Titration 50 Amount Cefepime 1 gm In Sodium 50 Chloride 0.9% 50 ml @ 100 mls/hr IVPB DAILY [facility] Rx #:[id number] Output: Urine 800 Other: # Voids 1 1 The patient appeared well nourished and normally developed. Vital signs as documented. Head exam is unremarkable. No scleral icterus or corneal arcus noted. Neck is without jugular venous distension, thyromegaly, or carotid bru its. Carotid upstrokes are brisk bilaterally. Lungs are clear to auscultation and percussion. Cardiac exam reveals the PMI to be normally sized and situated. Rhythm is regular. First and second heart sounds normal. No murmurs, rubs or gallops. Abdominal exam reveals normal bowel sounds, no masses, no organomegaly and no aortic enlargement. Extremities are nonedematous and both femoral and pedal pulses are normal. Results CBC & Chem 7: 03/15/19 14:51 03/15/19 14:51 Labs: Abnormal Lab Results - Last 24 Hours (Table) 03/16/19 03/17/19 03/17/19 Range/Units 20:40 06:55 11:35 POC Glucose (mg/dL) 215 H 145 H 121 H (75-99) mg/dL 03/17/19 Range/Units 16:58 POC Glucose (mg/dL) 151 H (75-99) mg/dL Microbiology - Last 24 Hours (Table) 03/15/19 14:51 Blood Culture - Preliminary Blood No Growth after 48 hours Assessment and Plan Assessment: Impression and plan: 1. History of multiple myeloma status post stem cell transplant. Currently on maintenance Revlimid, which is on hold for last 3 weeks., history of compression fractures. - status post Carfilzomib, lenalidomide and Decadron. - Will repeat myeloma labs.check protein electrophoresis, free light chains, immunoglobulins - Continue to hold lenalidomide. - Outpatient follow-up. 2. CT finding of spiculated Nodule /lung mass: - 2.2 cm spiculated mass in the posterior segment of the right upper lobe suspicious for malignancy. - Plan for CT-guided biopsy. PET scan as outpatient. 3. Normocytic anemia with hemoglobin of 7.2, thrombocytopenia with platelets of 33. No active bleeding. - Check fibrinogen, B12 folate, iron profile. - Likely secondary to bone marrow suppression secondary to lenalidomide. - transfusions to keep hemoglobin above 7 and platelets about 10,000. 4. Acute kidney injury on chronic kidney disease, and creatinine 2.1 5. Pneumonia in immune compromised patient. - Antibiotics as per the primary team and pulmonary. Thank you for allowing us to participate in the care of your patient. Please feel free to call us with any questions. Zoran Garnica MD Manager System, [facility] Hematology Oncology [id number], [address] [place] [address] Office: [phone], Time with Patient: Greater than 30
[2019-03-17] MEDS: ACYCLOVIR 200 MG CAP PO SCH (20:45)
[2019-03-17] MEDS: guaiFENesin 600 MG TABLET.ER PO SCH (20:45)
[2019-03-17] MEDS: CALCITRIOL 0.25 MCG CAP PO SCH (20:46)
[2019-03-17] MEDS: POTASSIUM CHLORIDE ER 20 MEQ TAB.ER PO SCH (20:46)
[2019-03-17] MEDS: LATANOPROST 0.005% OPHTH DROPS 2.5 ML BTL BOTH EYES SCH (20:47)
[2019-03-17 20:53] LABS: Glucose,Whole Blood 141 mg/dL (75-99)
--- NOTE | 2019-03-17 21:44 | P.PN ---
Progress Note - Text Progress Note Date: 03/17/19 Chief Complaint: Short of breath cough congested Interval history: This is a very pleasant 68-year-old patient of Dr. Villalobos. Chronic stable medical conditions include paroxysmal atrial flutter fibrillation, , CHF with an EF of 50-55%, tricuspid and mitral regurgitation, secondary pulmonary hypertension, chronic kidney disease stage IV, hypertension, hyperlipidemia,. Patient also being treated for multiple myeloma. on REVLIMID that she takes daily . Patient now presents with cough and sputum production short of breath some wheezing. For about a week. Also had nausea vomiting and diarrhea for a week. Feels totally rundown exhausted. Admitted for the same. Appetite poor. Also had fever Admitted with bilateral pneumonia severe and COPD exacerbation. Started on IV cefepime, IV steroids bronchodilators Today-feeling significantly better. Sitting up. Did tolerate some breakfast. Decreased cough decreased sputum. No fever no chills Review of systems: Was done for constitutional, cardiovascular, GI, pulmonary. relevant finding as above Active Medications Acyclovir (Zovirax) 400 mg PO [facility] Last Admin: 03/17/19 20:45 Dose: 400 mg Documented by: Albuterol/Ipratropium (Duoneb 0.5 Mg-3 Mg/3 Ml Soln) 3 ml INHALATION RT-QID [facility] Last Admin: 03/17/19 19:57 Dose: 3 ml Documented by: Albuterol/Ipratropium (Duoneb 0.5 Mg-3 Mg/3 Ml Soln) 3 ml INHALATION RT-Q4H PRN PRN Reason: Shortness Of Breath Or Wheezing Last Admin: 03/16/19 04:18 Dose: 3 ml Documented by: Azithromycin (Zithromax) 500 mg PO DAILY [facility] Brimonidine Tartrate (Alphagan P 0.2% Ophth Soln) 1 drops BOTH EYES BID [facility] Last Admin: 03/17/19 20:46 Dose: 1 drops Documented by: Budesonide/Formoterol Fumarate (Symbicort 160-4.5 Mcg Inhaler) 2 puff INHALATION RT-BID [facility] Last Admin: 03/17/19 19:57 Dose: 2 puff Documented by: Calcitriol (Rocaltrol) 0.25 mcg PO [facility] Last Admin: 03/17/19 20:46 Dose: 0.25 mcg Documented by: Calcium Carbonate (Oscal 500+D) 1 each PO BID [facility] Last Admin: 03/17/19 20:45 Dose: 1 each Documented by: Guaifenesin (Mucinex) 1,200 mg PO HS [facility] Last Admin: 03/17/19 20:45 Dose: 1,200 mg Documented by: Sodium Chloride (Saline 0.9%) 1,000 mls @ 100 mls/hr IV .Q10H [facility] Last Admin: 03/17/19 12:50 Dose: Not Given Documented by: Cefepime HCl 1 gm/ Sodium (Chloride) 50 mls @ 100 mls/hr IVPB DAILY [facility] Last Admin: 03/17/19 08:33 Dose: 100 mls/hr Documented by: Insulin Aspart (Novolog) 0 unit SQ ACHS [facility]; Protocol Last Admin: 03/17/19 20:56 Dose: 1 unit Documented by: Latanoprost (Xalatan 0.005%) 1 drops BOTH EYES [facility] Last Admin: 03/17/19 20:47 Dose: 1 drops Documented by: Methylprednisolone Sodium Succinate (Solu-Medrol) 40 mg IV Q8HR [facility] Last Admin: 03/17/19 16:49 Dose: 40 mg Documented by: Metoprolol Tartrate (Lopressor) 12.5 mg PO BID [facility] Last Admin: 03/17/19 20:45 Dose: 12.5 mg Documented by: Multivitamins/Minerals (Ivite) 1 each PO DAILY [facility] Last Admin: 03/17/19 08:40 Dose: 1 each Documented by: Non-Formulary Medication (Lenalidomide [Revlimid]) 5 mg PO DAILY [facility] Last Admin: 03/17/19 08:43 Dose: Not Given Documented by: Potassium Chloride (K-Dur 20) 20 meq PO HS [facility] Last Admin: 03/17/19 20:46 Dose: 20 meq Documented by: Sertraline HCl (Zoloft) 200 mg PO AC-LUNCH [facility] Last Admin: 03/17/19 12:49 Dose: 200 mg Documented by: Sodium Bicarbonate (Sodium Bicarbonate Tab) 650 mg PO TID [facility] Last Admin: 03/17/19 20:46 Dose: 650 mg Documented by: Physical examination: VITAL SIGNS: 98, 103, 18, 127/78, 98% on 2 L GENERAL: Sitting at the edge of the bed, looking better EYES: [Pupils equal. Conjunctiva pale HEENT: External appearance of nose and ears normal, oral cavity grossly normal. NECK: JVD not raised; masses not palpable. HEART: First and second heart sounds are normal; no edema. LUNGS: Respiratory rate increased, decreased breath sounds prolonged expiration, improved air entry ABDOMEN: Soft, nontender, liver spleen not palpable, no masses palpable. PSYCH: [Alert and oriented x3; mood and affect anxious . MUSCULOSKELETAL: Diffuse wasting of muscles Investigations, reviewed in the clinical context: Accu-Cheks noted Previous labs White count 5.2 hemoglobin 7.2 platelets 33 potassium 4.3 white count 15 BUN 31 and creatinine 2.13 Patient's labs from September 2018 show BUN 40 nitrogen of 2.51 Chest x-ray film personally reviewed by me-scattered infiltrates CT chest without contrast extensive coarse subpleural infiltrates in both lungs more severe of the right side, 2.2 cm spiculated mass in the posterior segment of the right upper lobe near the major fissure, left kidney calculus, numerous bilateral old rib fractures Assessment: -Bilateral extensive pneumonia, suspect gram-negative organism in an immunosuppressed patient, causing sepsis, POA, improving -Bicytopenia due to multiple myeloma -Paroxysmal atrial flutter and fibrillation -Acute COPD exacerbation an ex-smoker, POA, improving -Chronic congestive heart failure from systolic and diastolic dysfunction EF 50- 55% -Moderate tricuspid and severe mitral regurgitation, nontraumatic -Severe secondary pulmonary hypertension secondary to CHF and COPD -Multiple myeloma on chemotherapy -Chronic kidney disease secondary to multiple myeloma stage IV -Essential hypertension -Hyperlipidemia -Severe protein calorie malnutrition due to poor oral intake -Chronic medical debility -Multiple old rib fractures due to multiple myeloma -New spiculated lung mass 2.2 cm Plan: Continue with IV cefepime, Solu-Medrol bronchodilators. Patient has shown significant improvement. Encouraged to ambulate. Cut back IV fluids. Repeat labs in the morning.
[2019-03-18] MEDS: methylPREDNISolone SOD SUCCI 40 MG/ML 1 ML VIAL IV SCH ×3 (00:42→18:21)
[2019-03-18] MEDS: SODIUM CHLORIDE 0.45% 1,000 ML IV SCH ×2 (06:07→18:22)
[2019-03-18 06:57] LABS: Glucose,Whole Blood 125 mg/dL (75-99)
[2019-03-18] MEDS: INSULIN ASPART (NovoLOG) 100 UNIT/ML VIAL SQ SCH ×4 (07:13→21:24)
[2019-03-18] MEDS: SODIUM CHLORIDE 0.9% 1,000 ML IV SCH (07:17)
[2019-03-18 07:54] LABS: Anisocytosis Slight; Hypochromasia Marked; MCH 34.8 pg (25.0-35.0); MCHC 32.1 g/dL (31.0-37.0); MCV 108.5 fL (80.0-100.0); Macrocytosis Marked; Poikilocytosis Slight; RBC 1.69 m/uL (3.80-5.40); RDW 17.3 % (11.5-15.5); WBC 4.9 k/uL (3.8-10.6)
[2019-03-18] MEDS: SYMBICORT 160-4.5 MCG INHALER INHALATION SCH ×2 (07:56→19:00)
[2019-03-18] MEDS: IPRATROPIUM-ALBUTEROL 3 ML NEB INHALATION SCH ×4 (07:56→19:00)
[2019-03-18 08:07] LABS: HCT 18.3 % (34.0-46.0); HGB 5.9 gm/dL (11.4-16.0); Platelet Count 52 k/uL (150-450)
[2019-03-18] MEDS: AZITHROMYCIN 500 MG TAB PO SCH (08:37)
[2019-03-18] MEDS: SERTRALINE 100 MG TAB PO SCH (08:37)
[2019-03-18] MEDS: VIT A,C & E-LUTEIN-MINERALS 1 EACH TAB PO SCH (08:37)
[2019-03-18] MEDS: CALCIUM CARB-VIT D 500MG-200UN 1 EACH TAB PO SCH ×2 (08:38→21:25)
[2019-03-18] MEDS: METOPROLOL TARTRATE 12.5 MG TAB PO SCH ×2 (08:38→21:25)
[2019-03-18] MEDS: CEFEPIME 1 GM in SODIUM CHLORIDE 0.9% 50 ML IVPB SCH (08:43)
[2019-03-18] MEDS: BRIMONIDINE TARTRATE 0.2% DROPS 5 ML BTL BOTH EYES SCH ×2 (08:44→21:26)
[2019-03-18] MEDS: SODIUM BICARBONATE TAB 650 MG TAB PO SCH ×3 (08:45→21:25)
[2019-03-18] MEDS: LENALIDOMIDE 5 MG PO SCH (08:45)
--- NOTE | 2019-03-18 10:40 | P.PN ---
Subjective Progress Note Date: 03/18/19 Principal diagnosis: COPD exacerbation In f/u today she states that she is feeling much better since admit, no nausea, vomiting, diarrhea, she is tolerating oral intake, no fever, sore throat, cough is improved, sputum less purulent. Objective - Vital Signs Vital signs: Vital Signs Temp 97.6 F 03/18/19 07:00 Pulse 84 03/18/19 08:20 Resp 15 03/18/19 07:00 BP 131/54 03/18/19 07:00 Pulse Ox 97 03/18/19 09:28 Intake & Output 03/17/19 03/18/19 03/18/19 18:59 06:59 18:59 Intake Total 650 630 100 Balance 650 630 100 Intake: IV 600 Sodium Chloride 0.9% 1, 600 000 ml @ 100 mls/hr IV . Q10H [facility] Rx#:[id number] Intake, IV Titration 50 Amount Cefepime 1 gm In Sodium 50 Chloride 0.9% 50 ml @ 100 mls/hr IVPB DAILY [facility] Rx #:[id number] Oral 630 100 Other: Voiding Method Bedside Commode # Voids 1 1 - Constitutional General appearance: Present: average body habitus, cooperative, no acute distress - EENT Eyes: Present: anicteric sclerae, EOMI ENT: Present: hearing grossly normal, normal oropharynx - Respiratory Respiratory: right: rhonchi (anterior ), bilateral: diminished - Cardiovascular Heart sounds: normal: S1, S2 Abnormal Heart Sounds: Absent: systolic murmur, diastolic murmur, rub, S3 Gallop, S4 Gallop, click, other - Peripheral edema leg Peripheral Edema: bilateral: None - Gastrointestinal General gastrointestinal: Present: normal bowel sounds, soft. Absent: absent bowel sounds, decreased bowel sounds, distended, hepatomegaly, hyperactive bowel sounds, organomegaly, rigid, scaphoid, splenomegaly, tenderness, umbilical hernia, ventral hernia - Neurologic Neurologic: Present: CNII-XII intact - Musculoskeletal Musculoskeletal: Present: strength equal bilaterally - Psychiatric Psychiatric: Present: A&O x's 3, appropriate affect, intact judgment & insight - Labs CBC & Chem 7: 03/18/19 07:24 03/18/19 07:24 Labs: Abnormal Lab Results - Last 24 Hours (Table) 03/17/19 03/17/19 03/17/19 Range/Units 11:35 16:58 20:52 RBC (3.80-5.40) m/uL Hgb (11.4-16.0) gm/dL Hct (34.0-46.0) % MCV (80.0-100.0) fL RDW (11.5-15.5) % Plt Count (150-450) k/uL Macrocytosis Potassium (3.5-5.1) mmol/L Chloride (98-107) mmol/L Carbon Dioxide (22-30) mmol/L BUN (7-17) mg/dL Creatinine (0.52-1.04) mg/dL Glucose (74-99) mg/dL POC Glucose (mg/dL) 121 H 151 H 141 H (75-99) mg/dL Calcium (8.4-10.2) mg/dL 03/18/19 03/18/19 03/18/19 Range/Units 06:55 07:24 07:24 RBC 1.69 L (3.80-5.40) m/uL Hgb 5.9 L* (11.4-16.0) gm/dL Hct 18.3 L* (34.0-46.0) % MCV 108.5 H D (80.0-100.0) fL RDW 17.3 H (11.5-15.5) % Plt Count 52 L D (150-450) k/uL Macrocytosis Marked A Potassium 6.0 H (3.5-5.1) mmol/L Chloride 122 H (98-107) mmol/L Carbon Dioxide 16 L (22-30) mmol/L BUN 38 H (7-17) mg/dL Creatinine 1.91 H (0.52-1.04) mg/dL Glucose 107 H (74-99) mg/dL POC Glucose (mg/dL) 125 H (75-99) mg/dL Calcium 7.0 L (8.4-10.2) mg/dL Microbiology - Last 24 Hours (Table) 03/15/19 14:51 Blood Culture - Preliminary Blood No Growth after 48 hours Assessment and Plan (1) Cough Current Visit: Yes Status: Acute Priority: High Code(s): R05 - COUGH SNOMED Code(s): 04221607 (2) COPD exacerbation Current Visit: Yes Status: Acute Priority: High Code(s): J44.1 - CHRONIC OBSTRUCTIVE PULMONARY DISEASE W (ACUTE) EXACERBATION SNOMED Code(s): 190586699 (3) Multiple myeloma not having achieved remission Narrative/Plan: Hold revlimid until completion of abx course Current Visit: No Status: Chronic Priority: Medium Code(s): C90.00 - MULTIPLE MYELOMA NOT HAVING ACHIEVED REMISSION SNOMED Code(s): 356686794 (4) Pulmonary nodule, right Narrative/Plan: RUL, 2.2cm, spiculated. Plan is for PET outpatient then f/u with Pulmonary Current Visit: Yes Status: Acute Code(s): R91.1 - SOLITARY PULMONARY NODULE SNOMED Code(s): 432708463 (5) Bicytopenia Narrative/Plan: 1 unit PRBCs for Hgb 5.9, CBC in AM. Transfuse to keep Hgb 7 or greater Low platelets, no acute intervention. Transfuse to keep >10,000 or if symptomatic. No ASA, NSAIDs, anticoagulation Current Visit: Yes Status: Chronic Priority: Medium Code(s): D75.89 - OTHER SPECIFIED DISEASES OF BLOOD AND BLOOD-FORMING ORGANS SNOMED Code(s): 19038115 (6) Myeloma kidney disease Narrative/Plan: Pt near baseline. She was dehydrated on admit. Gentle hydration Current Visit: No Status: Chronic Priority: Medium Code(s): C90.00 - MULTIPLE MYELOMA NOT HAVING ACHIEVED REMISSION; N28.89 - OTHER SPECIFIED DISORDERS OF KIDNEY AND URETER SNOMED Code(s): 73092720
[2019-03-18 11:18] LABS: Glucose,Whole Blood 137 mg/dL (75-99)
[2019-03-18 11:25] LABS: Protein, Total 4.8 g/dL (6.2-8.2)
--- NOTE | 2019-03-18 12:18 | P.PN ---
Subjective Progress Note Date: 03/18/19 Principal diagnosis: Acute bilateral pneumonia, right upper lobe spiculated lesion 67-year-old female patient with known history of COPD and multiple myeloma who is status post bone marrow transplantation at was performed in May 2018, in addition to and chronic kidney disease with a stage III kidney failure and history of CVA, hypertension, hyperlipidemia and previous history of decompensated heart failure and paroxysmal atrial fibrillation for which the patient is on long-term anticoagulation with Eliquis, and chronic pain in addition to chronic anemia thrombocytopenia. The patient has been maintained on a combination of Revlimid Decadron and Keprolis , and she has had multiple hospitalizations in the past for pulmonary issues/chronic pain. This patient presented to the ED yesterday because of increased cough and congestion and worsening shortness of breath. Apparently she's been getting short of breath for the past 1 week. Note that she has history of mild level myeloma. And she has been off her Revlimid for almost 3 weeks for recommendations that was given to her by her oncologist. The patient was also having increased nausea, episodes of vomiting in diarrhea over the past few days. She felt quite dehydrated and weak and tired and for that reason she came into the ED. She was hemodynamically stable. She underwent a CAT scan of the chest and the CAT scan of the chest showed emphysema. There was extensive bilateral peripheral pulmonary infiltrates related to inflammation/pneumonia. There was also another stellate density in the right upper lobe that looked a bit suspicious for tumor. Nevertheless, this cannot be completely characterized specially the patient is going through with a bout of pneumonia for now. She has multiple old rib fractures and she has L1 vertebral compression fracture. She also has a left kidney calculus that has unchanged compared to review his scans. This patient has had multiple bouts of infection/pneumonia. She has been infected also with pseudomonas in the past. She has taken her pneumonia shot and she has taken her flu shot for this current year. On 03/17/2019, Lucero is being seen for a follow-up. She is feeling better. She is less congested. She is unable to bring up much sputum. She is not having any specific complaints patient on 2 L of oxygen by nasal cannula. She is currently on a combination of cefepime and Zithromax. As mentioned earlier, there is bilateral pneumonia in addition to a stellate lesion in the right upper lobe that needs to be monitored at a later stage. On 03/18/2019 patient seen in follow-up on medical surgical floor. She is sitting up on the side of the bed, in no acute distress, she states her breathing is improving, lung sounds are still positive for coarse rales at mid to lower lobes bilaterally, no signs of any acute distress, room air pulse ox is 97%, distal nonproductive cough.On combination of cefepime and Zithromax. cultures have been negative, today's labs have been reviewed, showing white blood cell count of 4.9, hemoglobin is 5.9 without evidence of any active bleeding, platelet count is up to 52, sodium is 144, potassium 6.0, chloride is 122, CO2 16, B1 is 38 and creatinine is 1.91, patient's potassium chloride supplements have been put on hold, and we will obtain a repeat serum potassium level now Objective - Vital Signs Vital signs: Vital Signs Temp 97.6 F 03/18/19 07:00 Pulse 82 03/18/19 11:24 Resp 15 03/18/19 07:00 BP 131/54 03/18/19 07:00 Pulse Ox 97 03/18/19 09:28 Intake & Output 03/17/19 03/18/19 03/18/19 18:59 06:59 18:59 Intake Total 650 630 100 Balance 650 630 100 Intake: IV 600 Sodium Chloride 0.9% 1, 600 000 ml @ 100 mls/hr IV . Q10H [facility] Rx#:[id number] Intake, IV Titration 50 Amount Cefepime 1 gm In Sodium 50 Chloride 0.9% 50 ml @ 100 mls/hr IVPB DAILY [facility] Rx #:[id number] Oral 630 100 Other: Voiding Method Bedside Commode # Voids 1 1 - Exam GENERAL EXAM: Alert, very pleasant, 68-year-old white female, on room air, with a pulse ox of 97% comfortable in no apparent distress. HEAD: Normocephalic/atraumatic. EYES: Normal reaction of pupils, equal size. Conjunctiva pink, sclera white. NOSE: Clear with pink turbinates. THROAT: No erythema or exudates. NECK: No masses, no JVD, no thyroid enlargement, no adenopathy. CHEST: No chest wall deformity. Symmetrical expansion. LUNGS: Equal air entry with coarse crackles in the mid and lower posterior lower lobes wheeze, rhonchi or dullness. CVS: Regular rate and rhythm, normal S1 and S2, no gallops, no murmurs, no rubs ABDOMEN: Soft, nontender. No hepatosplenomegaly, normal bowel sounds, no guarding or rigidity. EXTREMITIES: No clubbing, no edema, no cyanosis, 2+ pulses and upper and lower extremities. MUSCULOSKELETAL: Muscle strength and tone normal. SPINE: No scoliosis or deformity SKIN: No rashes CENTRAL NERVOUS SYSTEM: Alert and oriented -3. No focal deficits, tone is normal in all 4 extremities. PSYCHIATRIC: Alert and oriented -3. Appropriate affect. Intact judgment and insight. - Labs CBC & Chem 7: 03/18/19 07:24 03/18/19 07:24 Labs: Abnormal Lab Results - Last 24 Hours (Table) 03/17/19 03/17/19 03/18/19 Range/Units 16:58 20:52 06:55 RBC (3.80-5.40) m/uL Hgb (11.4-16.0) gm/dL Hct (34.0-46.0) % MCV (80.0-100.0) fL RDW (11.5-15.5) % Plt Count (150-450) k/uL Macrocytosis Potassium (3.5-5.1) mmol/L Chloride (98-107) mmol/L Carbon Dioxide (22-30) mmol/L BUN (7-17) mg/dL Creatinine (0.52-1.04) mg/dL Glucose (74-99) mg/dL POC Glucose (mg/dL) 151 H 141 H 125 H (75-99) mg/dL Calcium (8.4-10.2) mg/dL Total Protein (PEP) (6.2-8.2) g/dL 03/18/19 03/18/19 03/18/19 Range/Units 07:24 07:24 07:24 RBC 1.69 L (3.80-5.40) m/uL Hgb 5.9 L* (11.4-16.0) gm/dL Hct 18.3 L* (34.0-46.0) % MCV 108.5 H D (80.0-100.0) fL RDW 17.3 H (11.5-15.5) % Plt Count 52 L D (150-450) k/uL Macrocytosis Marked A Potassium 6.0 H (3.5-5.1) mmol/L Chloride 122 H (98-107) mmol/L Carbon Dioxide 16 L (22-30) mmol/L BUN 38 H (7-17) mg/dL Creatinine 1.91 H (0.52-1.04) mg/dL Glucose 107 H (74-99) mg/dL POC Glucose (mg/dL) (75-99) mg/dL Calcium 7.0 L (8.4-10.2) mg/dL Total Protein (PEP) 4.8 L (6.2-8.2) g/dL 03/18/19 Range/Units 11:16 RBC (3.80-5.40) m/uL Hgb (11.4-16.0) gm/dL Hct (34.0-46.0) % MCV (80.0-100.0) fL RDW (11.5-15.5) % Plt Count (150-450) k/uL Macrocytosis Potassium (3.5-5.1) mmol/L Chloride (98-107) mmol/L Carbon Dioxide (22-30) mmol/L BUN (7-17) mg/dL Creatinine (0.52-1.04) mg/dL Glucose (74-99) mg/dL POC Glucose (mg/dL) 137 H (75-99) mg/dL Calcium (8.4-10.2) mg/dL Total Protein (PEP) (6.2-8.2) g/dL Microbiology - Last 24 Hours (Table) 03/15/19 14:51 Blood Culture - Preliminary Blood No Growth after 48 hours Assessment and Plan Plan: 1 acute bilateral pneumonia right more than left with secondary COPD exacerbation . This patient has had multiple bouts of respiratory tract infection pneumonias in the past. She is chronically immunosuppressed related to her myeloma. She has been infected with pseudomonas in the past. Currently she is coming in with some gastrointestinal symptoms of worsening shortness of breath and she has been diagnosed having bilateral pneumonia based on the CAT scan findings. 2 right upper lobe stellate lesion that looks a bit spiculated. Note that she is known to have COPD. Underlying malignancy needs to be ruled out of a lung primary type. I would suggest completing the course of antibiotics and treating the pneumonia repeating the CAT scan prior to making any commitments regarding the right upper lobe lesion. 3 multiple myeloma maintained on a combination of Revlimid and the patient is post bone marrow transplantation 4 chronic kidney disease stage 3-4 5 congestion heart failure with improved left ventricular function and based on the echocardiogram that was done recently her EF is back to normal 6 paroxysmal atrial fibrillation, current rhythm is sinus 7 COPD 8 previous history of CVA 9 hypertension 10 hyperlipidemia 11 chronic bony aches secondary to multiple myeloma 12 pancytopenia with a component of anemia, leukopenia and thrombocytopenia, all related to multiple myeloma 13 remote history of cervical cancer 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 Continue nebulized bronchodilators, obtain follow-up chest x-ray in the morning. I performed a history & physical examination of the patient and discussed their management with my nurse practitioner, Bere Alves. I reviewed the nurse practitioner's note and agree with the documented findings and plan of care. Lung sounds are positive for coarse basilar crackles. The findings and the impression was discussed with the patient. I attest to the documentation by the nurse practitioner. Time with Patient: Less than 30
[2019-03-18 12:38] LABS: Free Kappa Lt Chain Qnt, Serum 2.21 mg/dL (0.33-1.94)
[2019-03-18] MEDS ORDERED: SODIUM POLYSTYRENE SULFONATE 15 GM/60 ML BOTTLE PO STA ×2 (14:16→23:45)
[2019-03-18] MEDS ORDERED: DEXTROSE 10 % IN WATER 250 ML IV STA (14:23)
[2019-03-18] MEDS ORDERED: INSULIN REGULAR 100 UNIT/ML VIAL IV ONE (14:30)
[2019-03-18] MEDS ORDERED: SODIUM BICARB 8.4% 50 ML SYR (1 MEQ/ML) IV STA (14:31)
[2019-03-18 16:54] LABS: Glucose,Whole Blood 116 mg/dL (75-99)
[2019-03-18 18:38] LABS: % Iron Saturation 25.12 (12.00-45.00)
[2019-03-18 18:46] LABS: Folate, Serum 5.3 ng/mL
[2019-03-18 19:57] LABS: Glucose,Whole Blood 149 mg/dL (75-99)
[2019-03-18] MEDS: ACYCLOVIR 200 MG CAP PO SCH (21:25)
[2019-03-18] MEDS: CALCITRIOL 0.25 MCG CAP PO SCH (21:25)
[2019-03-18] MEDS: guaiFENesin 600 MG TABLET.ER PO SCH (21:25)
[2019-03-18] MEDS: LATANOPROST 0.005% OPHTH DROPS 2.5 ML BTL BOTH EYES SCH (21:26)
--- NOTE | 2019-03-18 23:48 | P.PN ---
Progress Note - Text Progress Note Date: 03/18/19 Chief Complaint: Short of breath cough congested Interval history: This is a very pleasant 68-year-old patient of Dr. Villalobos. Chronic stable medical conditions include paroxysmal atrial flutter fibrillation, , CHF with an EF of 50-55%, tricuspid and mitral regurgitation, secondary pulmonary hypertension, chronic kidney disease stage IV, hypertension, hyperlipidemia,. Patient also being treated for multiple myeloma. on REVLIMID that she takes daily . Patient now presents with cough and sputum production short of breath some wheezing. For about a week. Also had nausea vomiting and diarrhea for a week. Feels totally rundown exhausted. Admitted for the same. Appetite poor. Also had fever Admitted with bilateral pneumonia severe and COPD exacerbation. Started on IV cefepime, IV steroids bronchodilators Today-feeling better today. Breathing is improved. Minimal cough. Appetite is improving. Hemoglobin came back at 5.9. One unit of blood ordered. Review of systems: Was done for constitutional, cardiovascular, GI, pulmonary. relevant finding as above Active Medications Acyclovir (Zovirax) 400 mg PO [facility] Last Admin: 03/18/19 21:25 Dose: 400 mg Documented by: Albuterol/Ipratropium (Duoneb 0.5 Mg-3 Mg/3 Ml Soln) 3 ml INHALATION RT-QID [facility] Last Admin: 03/18/19 19:00 Dose: 3 ml Documented by: Albuterol/Ipratropium (Duoneb 0.5 Mg-3 Mg/3 Ml Soln) 3 ml INHALATION RT-Q4H PRN PRN Reason: Shortness Of Breath Or Wheezing Last Admin: 03/16/19 04:18 Dose: 3 ml Documented by: Azithromycin (Zithromax) 500 mg PO DAILY [facility] Last Admin: 03/18/19 08:37 Dose: 500 mg Documented by: Brimonidine Tartrate (Alphagan P 0.2% Ophth Soln) 1 drops BOTH EYES BID [facility] Last Admin: 03/18/19 21:26 Dose: 1 drops Documented by: Budesonide/Formoterol Fumarate (Symbicort 160-4.5 Mcg Inhaler) 2 puff INHALATION RT-BID [facility] Last Admin: 03/18/19 19:00 Dose: 2 puff Documented by: Calcitriol (Rocaltrol) 0.25 mcg PO [facility] Last Admin: 03/18/19 21:25 Dose: 0.25 mcg Documented by: Calcium Carbonate (Oscal 500+D) 1 each PO BID [facility] Last Admin: 03/18/19 21:25 Dose: 1 each Documented by: Guaifenesin (Mucinex) 1,200 mg PO HS [facility] Last Admin: 03/18/19 21:25 Dose: 1,200 mg Documented by: Cefepime HCl 1 gm/ Sodium (Chloride) 50 mls @ 100 mls/hr IVPB DAILY [facility] Last Admin: 03/18/19 08:43 Dose: 100 mls/hr Documented by: Sodium Chloride (Saline 0.45%) 1,000 mls @ 50 mls/hr IV .Q20H [facility] Last Admin: 03/18/19 18:22 Dose: Not Given Documented by: Insulin Aspart (Novolog) 0 unit SQ ACHS [facility]; Protocol Last Admin: 03/18/19 21:24 Dose: 1 unit Documented by: Latanoprost (Xalatan 0.005%) 1 drops BOTH EYES [facility] Last Admin: 03/18/19 21:26 Dose: 1 drops Documented by: Methylprednisolone Sodium Succinate (Solu-Medrol) 40 mg IV Q8HR [facility] Last Admin: 03/18/19 18:21 Dose: 40 mg Documented by: Metoprolol Tartrate (Lopressor) 12.5 mg PO BID [facility] Last Admin: 03/18/19 21:25 Dose: 12.5 mg Documented by: Multivitamins/Minerals (Ivite) 1 each PO DAILY [facility] Last Admin: 03/18/19 08:37 Dose: 1 each Documented by: Non-Formulary Medication (Lenalidomide [Revlimid]) 5 mg PO DAILY [facility] Last Admin: 03/18/19 08:45 Dose: Not Given Documented by: Sertraline HCl (Zoloft) 200 mg PO AC-LUNCH [facility] Last Admin: 03/18/19 08:37 Dose: 200 mg Documented by: Sodium Bicarbonate (Sodium Bicarbonate Tab) 650 mg PO TID [facility] Last Admin: 03/18/19 21:25 Dose: 650 mg Documented by: Physical examination: VITAL SIGNS: 97.8, 100, 18, 125/60, 98% room air GENERAL: Sitting at the edge of the bed, comfortable EYES: [Pupils equal. Conjunctiva pale HEENT: External appearance of nose and ears normal, oral cavity grossly normal. NECK: JVD not raised; masses not palpable. HEART: First and second heart sounds are normal; no edema. LUNGS: Respiratory rate increased, decreased breath sounds , improved air entry ABDOMEN: Soft, nontender, liver spleen not palpable, no masses palpable. PSYCH: [Alert and oriented x3; mood and affect anxious . MUSCULOSKELETAL: Diffuse wasting of muscles Investigations, reviewed in the clinical context: White count 4.9 hemoglobin 5.9 platelets 52 potassium 6 bun 38 crit 1.91 Previous labs White count 5.2 hemoglobin 7.2 platelets 33 potassium 4.3 white count 15 BUN 31 and creatinine 2.13 Patient's labs from September 2018 show BUN 40 nitrogen of 2.51 Chest x-ray film personally reviewed by me-scattered infiltrates CT chest without contrast extensive coarse subpleural infiltrates in both lungs more severe of the right side, 2.2 cm spiculated mass in the posterior segment of the right upper lobe near the major fissure, left kidney calculus, numerous bilateral old rib fractures Assessment: -Bilateral extensive pneumonia, suspect gram-negative organism in an immunosuppressed patient, causing sepsis, POA, clinically much improving -Severe hyperkalemia -Severe macrocytic anemia, to transfer unit of blood today -Bicytopenia due to multiple myeloma -Paroxysmal atrial flutter and fibrillation -Acute COPD exacerbation an ex-smoker, POA, improving -Chronic congestive heart failure from systolic and diastolic dysfunction EF 50- 55% -Moderate tricuspid and severe mitral regurgitation, nontraumatic -Severe secondary pulmonary hypertension secondary to CHF and COPD -Multiple myeloma on chemotherapy -Chronic kidney disease secondary to multiple myeloma stage IV -Essential hypertension -Hyperlipidemia -Severe protein calorie malnutrition due to poor oral intake -Chronic medical debility -Multiple old rib fractures due to multiple myeloma -New spiculated lung mass 2.2 cm Plan: Patient to continue IV cefepime. One unit blood ordered. For the hyperkalemia, wanted to calcium gluconate, sodium bicarbonate, 10 units of Regular Insulin, half an amp of D50 and 30 g of takes it ordered. Repeat potassium was ordered. Later came back at 6.1. Another 30 g of Kayexalate ordered.
[2019-03-19 07:09] LABS: Glucose,Whole Blood 97 mg/dL (75-99)
[2019-03-19 07:42] LABS: Anisocytosis Moderate; Basophils % (A) 0 %; Eosinophils % (A) 0 %; HCT 22.1 % (34.0-46.0); Hypochromasia Moderate; Lymphocytes # (A) 0.7 k/uL (1.0-4.8); Lymphocytes % (A) 13 %; MCH 31.5 pg (25.0-35.0); MCHC 31.5 g/dL (31.0-37.0); Macrocytosis Moderate; Mean Platelet Volume 9.8; Monocytes # (A) 0.3 k/uL (0-1.0); Monocytes % (A) 5 %; Neutrophils # (A) 4.1 k/uL (1.3-7.7); Neutrophils % (A) 77 %; Poikilocytosis Moderate; RBC 2.21 m/uL (3.80-5.40); RDW 21.6 % (11.5-15.5); WBC 5.3 k/uL (3.8-10.6)
[2019-03-19 08:10] LABS: Calcium 6.9 mg/dL (8.4-10.2); MCV 99.8 fL (80.0-100.0); Platelet Count 34 k/uL (150-450)
[2019-03-19] MEDS: SYMBICORT 160-4.5 MCG INHALER INHALATION SCH ×3 (08:35→21:42)
[2019-03-19] MEDS: IPRATROPIUM-ALBUTEROL 3 ML NEB INHALATION SCH ×4 (08:35→21:29)
[2019-03-19] MEDS: INSULIN ASPART (NovoLOG) 100 UNIT/ML VIAL SQ SCH (09:24)
[2019-03-19] MEDS: LENALIDOMIDE 5 MG PO SCH (09:24)
[2019-03-19] MEDS: CEFEPIME 1 GM in SODIUM CHLORIDE 0.9% 50 ML IVPB SCH (09:43)
[2019-03-19] MEDS: CALCIUM CARB-VIT D 500MG-200UN 1 EACH TAB PO SCH ×2 (09:45→21:29)
[2019-03-19] MEDS: VIT A,C & E-LUTEIN-MINERALS 1 EACH TAB PO SCH (09:45)
[2019-03-19] MEDS: SERTRALINE 100 MG TAB PO SCH (09:46)
[2019-03-19] MEDS: METOPROLOL TARTRATE 12.5 MG TAB PO SCH ×2 (09:46→21:28)
[2019-03-19] MEDS: predniSONE 20 MG TAB PO SCH (09:46)
[2019-03-19] MEDS: BRIMONIDINE TARTRATE 0.2% DROPS 5 ML BTL BOTH EYES SCH ×2 (09:46→21:29)
[2019-03-19] MEDS: AZITHROMYCIN 500 MG TAB PO SCH (09:46)
[2019-03-19] MEDS: SODIUM BICARBONATE TAB 650 MG TAB PO SCH ×3 (09:47→21:29)
[2019-03-19 11:45] LABS: Glucose,Whole Blood 116 mg/dL (75-99)
--- NOTE | 2019-03-19 12:27 | P.PN ---
Subjective Progress Note Date: 03/19/19 Principal diagnosis: Acute bilateral pneumonia, right upper lobe spiculated lesion 67-year-old female patient with known history of COPD and multiple myeloma who is status post bone marrow transplantation at was performed in May 2018, in addition to and chronic kidney disease with a stage III kidney failure and history of CVA, hypertension, hyperlipidemia and previous history of decompensated heart failure and paroxysmal atrial fibrillation for which the patient is on long-term anticoagulation with Eliquis, and chronic pain in addition to chronic anemia thrombocytopenia. The patient has been maintained on a combination of Revlimid Decadron and Keprolis , and she has had multiple hospitalizations in the past for pulmonary issues/chronic pain. This patient presented to the ED yesterday because of increased cough and congestion and worsening shortness of breath. Apparently she's been getting short of breath for the past 1 week. Note that she has history of mild level myeloma. And she has been off her Revlimid for almost 3 weeks for recommendations that was given to her by her oncologist. The patient was also having increased nausea, episodes of vomiting in diarrhea over the past few days. She felt quite dehydrated and weak and tired and for that reason she came into the ED. She was hemodynamically stable. She underwent a CAT scan of the chest and the CAT scan of the chest showed emphysema. There was extensive bilateral peripheral pulmonary infiltrates related to inflammation/pneumonia. There was also another stellate density in the right upper lobe that looked a bit suspicious for tumor. Nevertheless, this cannot be completely characterized specially the patient is going through with a bout of pneumonia for now. She has multiple old rib fractures and she has L1 vertebral compression fracture. She also has a left kidney calculus that has unchanged compared to review his scans. This patient has had multiple bouts of infection/pneumonia. She has been infected also with pseudomonas in the past. She has taken her pneumonia shot and she has taken her flu shot for this current year. On 03/17/2019, Lucero is being seen for a follow-up. She is feeling better. She is less congested. She is unable to bring up much sputum. She is not having any specific complaints patient on 2 L of oxygen by nasal cannula. She is currently on a combination of cefepime and Zithromax. As mentioned earlier, there is bilateral pneumonia in addition to a stellate lesion in the right upper lobe that needs to be monitored at a later stage. On 03/18/2019 patient seen in follow-up on medical surgical floor. She is sitting up on the side of the bed, in no acute distress, she states her breathing is improving, lung sounds are still positive for coarse rales at mid to lower lobes bilaterally, no signs of any acute distress, room air pulse ox is 97%, distal nonproductive cough.On combination of cefepime and Zithromax. cultures have been negative, today's labs have been reviewed, showing white blood cell count of 4.9, hemoglobin is 5.9 without evidence of any active bleeding, platelet count is up to 52, sodium is 144, potassium 6.0, chloride is 122, CO2 16, B1 is 38 and creatinine is 1.91, patient's potassium chloride supplements have been put on hold, and we will obtain a repeat serum potassium level now On 03/19/2019 patient seen in follow-up on medical surgical floor. Doing well, no specific complaints, she is on room air, denies any shortness of breath, lung sounds reveal some fine rales at the right base. Patient continues on empiric antibiotics currently on cefepime and Zithromax, cultures show no growth, patient has not been able to produce a sputum culture. Today's labs have been reviewed, yesterday patient was transfused with 1 unit of packed red blood cells 5.9, today's labs show hemoglobin of 7.0, platelet count is 34, potassium is 5.0, chloride was 120, CO2 16, BUN was 30 and creatinine is 1.83 Objective - Vital Signs Vital signs: Vital Signs Temp 97.2 F L 03/19/19 07:00 Pulse 80 03/19/19 08:50 Resp 15 03/19/19 07:00 BP 155/53 03/19/19 07:00 Pulse Ox 94 L 03/19/19 07:00 Intake & Output 03/18/19 03/19/19 03/19/19 18:59 06:59 18:59 Intake Total 425 560 Balance 425 560 Intake: Intake, IV Titration 250 Amount Sodium Chloride 0.45% 1, 250 000 ml @ 50 mls/hr IV . Q20H [facility] Rx#:[id number] Oral 425 Blood Product 0 310 Rc Irr As1 Unit 0 310 [id number] Other: Voiding Method Bedside Commode # Voids 1 1 - Exam GENERAL EXAM: Alert, very pleasant, 68-year-old white female, on room air, with a pulse ox of 94% comfortable in no apparent distress. HEAD: Normocephalic/atraumatic. EYES: Normal reaction of pupils, equal size. Conjunctiva pink, sclera white. NOSE: Clear with pink turbinates. THROAT: No erythema or exudates. NECK: No masses, no JVD, no thyroid enlargement, no adenopathy. CHEST: No chest wall deformity. Symmetrical expansion. LUNGS: Equal air entry with coarse crackles in the mid and lower posterior lower lobes wheeze, rhonchi or dullness. CVS: Regular rate and rhythm, normal S1 and S2, no gallops, no murmurs, no rubs ABDOMEN: Soft, nontender. No hepatosplenomegaly, normal bowel sounds, no guarding or rigidity. EXTREMITIES: No clubbing, no edema, no cyanosis, 2+ pulses and upper and lower extremities. MUSCULOSKELETAL: Muscle strength and tone normal. SPINE: No scoliosis or deformity SKIN: No rashes CENTRAL NERVOUS SYSTEM: Alert and oriented -3. No focal deficits, tone is normal in all 4 extremities. PSYCHIATRIC: Alert and oriented -3. Appropriate affect. Intact judgment and insight. - Labs CBC & Chem 7: 03/19/19 07:01 03/19/19 07:01 Labs: Abnormal Lab Results - Last 24 Hours (Table) 03/18/19 03/18/19 03/18/19 Range/Units 07:24 07:24 07:24 RBC (3.80-5.40) m/uL Hgb (11.4-16.0) gm/dL Hct (34.0-46.0) % RDW (11.5-15.5) % Plt Count (150-450) k/uL Lymphocytes # (1.0-4.8) k/uL Haptoglobin 380.0 H (31.2-198.0) mg/dL Potassium (3.5-5.1) mmol/L Chloride (98-107) mmol/L Carbon Dioxide (22-30) mmol/L BUN (7-17) mg/dL Creatinine (0.52-1.04) mg/dL POC Glucose (mg/dL) (75-99) mg/dL Calcium (8.4-10.2) mg/dL TIBC 203 L (228-460) ug/dL IgG 390.0 L (700.0-1600.0) mg/dL Free [place] LC, Quant 2.21 H (0.33-1.94) mg/dL Crossmatch 03/18/19 03/18/19 03/18/19 Range/Units 11:06 12:45 16:52 RBC (3.80-5.40) m/uL Hgb (11.4-16.0) gm/dL Hct (34.0-46.0) % RDW (11.5-15.5) % Plt Count (150-450) k/uL Lymphocytes # (1.0-4.8) k/uL Haptoglobin (31.2-198.0) mg/dL Potassium 6.1 H* (3.5-5.1) mmol/L Chloride (98-107) mmol/L Carbon Dioxide (22-30) mmol/L BUN (7-17) mg/dL Creatinine (0.52-1.04) mg/dL POC Glucose (mg/dL) 116 H (75-99) mg/dL Calcium (8.4-10.2) mg/dL TIBC (228-460) ug/dL IgG (700.0-1600.0) mg/dL Free [place] LC, Quant (0.33-1.94) mg/dL Crossmatch See Detail 03/18/19 03/19/19 03/19/19 Range/Units 19:56 07:01 07:01 RBC 2.21 L (3.80-5.40) m/uL Hgb 7.0 L (11.4-16.0) gm/dL Hct 22.1 L (34.0-46.0) % RDW 21.6 H (11.5-15.5) % Plt Count 34 L (150-450) k/uL Lymphocytes # 0.7 L (1.0-4.8) k/uL Haptoglobin (31.2-198.0) mg/dL Potassium (3.5-5.1) mmol/L Chloride 120 H (98-107) mmol/L Carbon Dioxide 16 L (22-30) mmol/L BUN 38 H (7-17) mg/dL Creatinine 1.83 H (0.52-1.04) mg/dL POC Glucose (mg/dL) 149 H (75-99) mg/dL Calcium 6.9 L (8.4-10.2) mg/dL TIBC (228-460) ug/dL IgG (700.0-1600.0) mg/dL Free [place] LC, Quant (0.33-1.94) mg/dL Crossmatch 03/19/19 Range/Units 11:43 RBC (3.80-5.40) m/uL Hgb (11.4-16.0) gm/dL Hct (34.0-46.0) % RDW (11.5-15.5) % Plt Count (150-450) k/uL Lymphocytes # (1.0-4.8) k/uL Haptoglobin (31.2-198.0) mg/dL Potassium (3.5-5.1) mmol/L Chloride (98-107) mmol/L Carbon Dioxide (22-30) mmol/L BUN (7-17) mg/dL Creatinine (0.52-1.04) mg/dL POC Glucose (mg/dL) 116 H (75-99) mg/dL Calcium (8.4-10.2) mg/dL TIBC (228-460) ug/dL IgG (700.0-1600.0) mg/dL Free [place] LC, Quant (0.33-1.94) mg/dL Crossmatch Microbiology - Last 24 Hours (Table) 03/15/19 14:51 Blood Culture - Preliminary Blood No Growth after 72 hours Assessment and Plan Plan: 1 acute bilateral pneumonia right more than left with secondary COPD exacerbation . This patient has had multiple bouts of respiratory tract infect ion pneumonias in the past. She is chronically immunosuppressed related to her myeloma. She has been infected with pseudomonas in the past. Currently she is coming in with some gastrointestinal symptoms of worsening shortness of breath and she has been diagnosed having bilateral pneumonia based on the CAT scan findings. 2 right upper lobe stellate lesion that looks a bit spiculated. Note that she is known to have COPD. Underlying malignancy needs to be ruled out of a lung primary type. I would suggest completing the course of antibiotics and treating the pneumonia repeating the CAT scan prior to making any commitments regarding the right upper lobe lesion. 3 multiple myeloma maintained on a combination of Revlimid and the patient is post bone marrow transplantation 4 chronic kidney disease stage 3-4 5 congestion heart failure with improved left ventricular function and based on the echocardiogram that was done recently her EF is back to normal 6 paroxysmal atrial fibrillation, current rhythm is sinus 7 COPD 8 previous history of CVA 9 hypertension 10 hyperlipidemia 11 chronic bony aches secondary to multiple myeloma 12 pancytopenia with a component of anemia, leukopenia and thrombocytopenia, all related to multiple myeloma 13 remote history of cervical cancer 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 CT chest guided right upper lobe lesion biopsy has been canceled, patient will need outpatient bronchoscopy with transbronchial biopsies once she recovers from her current episode of pneumonia. Continue to follow I performed a history & physical examination of the patient and discussed their management with my nurse practitioner, Bere Alves. I reviewed the nurse practitioner's note and agree with the documented findings and plan of care. Lung sounds are positive for coarse basilar crackles. The findings and the impression was discussed with the patient. I attest to the documentation by the nurse practitioner. Time with Patient: Less than 30
--- NOTE | 2019-03-19 15:07 | XR ---
EXAMINATION TYPE: XR chest 2V DATE OF EXAM: 03/19/2019 COMPARISON: 03/15/2019 HISTORY: Bilateral pneumonia. Shortness of breath. TECHNIQUE: Frontal and lateral views of the chest are obtained. FINDINGS: There are increasing small pleural effusions and associated bibasilar airspace disease. Th ere are numerous bilateral old healed rib fractures and chronic interstitial prominence throughout. R ight-sided pleural thickening is redemonstrated. Pulmonary hyperinflation of underlying COPD. Heart is within normal limits of size. IMPRESSION: Increasing bilateral pleural effusions, now small and trace on the prior. COPD and other chronic changes.
--- NOTE | 2019-03-19 17:08 | P.PN ---
Subjective Progress Note Date: 03/19/19 Principal diagnosis: COPD exacerbation In f/u today she states that she feels good, even better after transfusion. No nausea, diarrhea, tolerating oral intake, cough is stable, she is ambulating. Objective - Vital Signs Vital signs: Vital Signs Temp 98.2 F 03/19/19 16:41 Pulse 76 03/19/19 16:41 Resp 16 03/19/19 16:41 BP 159/62 03/19/19 16:41 Pulse Ox 96 03/19/19 16:41 Intake & Output 03/18/19 03/19/19 03/19/19 18:59 06:59 18:59 Intake Total 425 560 0 Balance 425 560 0 Intake: Intake, IV Titration 250 Amount Sodium Chloride 0.45% 1, 250 000 ml @ 50 mls/hr IV . Q20H [facility] Rx#:[id number] Oral 425 Blood Product 0 310 0 Rc Irr As1 Unit 0 [id number] Rc Irr As1 Unit 0 310 [id number] Other: Voiding Method Bedside Commode # Voids 1 1 1 # Bowel Movements 1 - Constitutional General appearance: Present: cooperative, no acute distress, thin - EENT Eyes: Present: anicteric sclerae, EOMI ENT: Present: hearing grossly normal - Respiratory Respiratory: bilateral: diminished (tight) - Cardiovascular Heart sounds: normal: S1, S2 - Peripheral edema leg Peripheral Edema: bilateral: None - Gastrointestinal General gastrointestinal: Present: normal bowel sounds, soft - Integumentary Integumentary: Present: pale - Neurologic Neurologic: Present: CNII-XII intact - Musculoskeletal Musculoskeletal: Present: strength equal bilaterally - Psychiatric Psychiatric: Present: A&O x's 3, appropriate affect, intact judgment & insight - Labs CBC & Chem 7: 03/19/19 07:01 03/19/19 07:01 Labs: Abnormal Lab Results - Last 24 Hours (Table) 03/18/19 03/18/19 03/18/19 Range/Units 07:24 11:06 19:56 RBC (3.80-5.40) m/uL Hgb (11.4-16.0) gm/dL Hct (34.0-46.0) % RDW (11.5-15.5) % Plt Count (150-450) k/uL Lymphocytes # (1.0-4.8) k/uL Chloride (98-107) mmol/L Carbon Dioxide (22-30) mmol/L BUN (7-17) mg/dL Creatinine (0.52-1.04) mg/dL POC Glucose (mg/dL) 149 H (75-99) mg/dL Calcium (8.4-10.2) mg/dL TIBC 203 L (228-460) ug/dL Crossmatch See Detail 03/19/19 03/19/19 03/19/19 Range/Units 07:01 07:01 11:43 RBC 2.21 L (3.80-5.40) m/uL Hgb 7.0 L (11.4-16.0) gm/dL Hct 22.1 L (34.0-46.0) % RDW 21.6 H (11.5-15.5) % Plt Count 34 L (150-450) k/uL Lymphocytes # 0.7 L (1.0-4.8) k/uL Chloride 120 H (98-107) mmol/L Carbon Dioxide 16 L (22-30) mmol/L BUN 38 H (7-17) mg/dL Creatinine 1.83 H (0.52-1.04) mg/dL POC Glucose (mg/dL) 116 H (75-99) mg/dL Calcium 6.9 L (8.4-10.2) mg/dL TIBC (228-460) ug/dL Crossmatch Microbiology - Last 24 Hours (Table) 03/15/19 14:51 Blood Culture - Preliminary Blood No Growth after 72 hours Assessment and Plan (1) Cough Current Visit: Yes Status: Acute Priority: High Code(s): R05 - COUGH SNOMED Code(s): 42538759 (2) COPD exacerbation Current Visit: Yes Status: Acute Priority: High Code(s): J44.1 - CHRONIC OBSTRUCTIVE PULMONARY DISEASE W (ACUTE) EXACERBATION SNOMED Code(s): 672786568 (3) Multiple myeloma not having achieved remission Narrative/Plan: Pt will hold revlimid for now, this has been noted in her DC plan. She will follow up in the office 1-2 times a week (based on her counts) for PRN transfusions. I will shced her 1st appt based on her discharge date. CBC daily while inpatient Current Visit: No Status: Chronic Priority: Medium Code(s): C90.00 - MULTIPLE MYELOMA NOT HAVING ACHIEVED REMISSION SNOMED Code(s): 877368636 (4) Pulmonary nodule, right Narrative/Plan: RUL, 2.2cm, spiculated. Plan is for PET outpatient then f/u with Pulmonary for bronchoscopy and biopsy. Pt is in agreement with this plane. PET sched, appt date and time in DC Current Visit: Yes Status: Acute Code(s): R91.1 - SOLITARY PULMONARY NODULE SNOMED Code(s): 713263885 (5) Bicytopenia Narrative/Plan: Hgb 7, no transfusion today. Transfuse to keep Hgb 7 or greater Low platelets, no acute intervention. Transfuse to keep >10,000 or if symptomatic. No ASA, NSAIDs, anticoagulation Current Visit: Yes Status: Chronic Priority: Medium Code(s): D75.89 - OTHER SPECIFIED DISEASES OF BLOOD AND BLOOD-FORMING ORGANS SNOMED Code(s): 44709097 (6) Myeloma kidney disease Narrative/Plan: Pt near baseline. She was dehydrated on admit. Gentle hydration Current Visit: No Status: Chronic Priority: Medium Code(s): C90.00 - MULTIPLE MYELOMA NOT HAVING ACHIEVED REMISSION; N28.89 - OTHER SPECIFIED DISORDERS OF KIDNEY AND URETER SNOMED Code(s): 57555287
[2019-03-19] MEDS: SODIUM CHLORIDE 0.45% 1,000 ML IV SCH (17:19)
[2019-03-19 20:40] LABS: Glucose,Whole Blood 119 mg/dL (75-99)
[2019-03-19] MEDS: CALCITRIOL 0.25 MCG CAP PO SCH (21:28)
[2019-03-19] MEDS: ACYCLOVIR 200 MG CAP PO SCH (21:29)
[2019-03-19] MEDS: guaiFENesin 600 MG TABLET.ER PO SCH (21:29)
[2019-03-19] MEDS: LATANOPROST 0.005% OPHTH DROPS 2.5 ML BTL BOTH EYES SCH (21:30)
--- NOTE | 2019-03-19 23:23 | P.PN ---
Progress Note - Text Progress Note Date: 03/19/19 Chief Complaint: Short of breath cough congested Interval history: This is a very pleasant 68-year-old patient of Dr. Villalobos. Chronic stable medical conditions include paroxysmal atrial flutter fibrillation, , CHF with an EF of 50-55%, tricuspid and mitral regurgitation, secondary pulmonary hypertension, chronic kidney disease stage IV, hypertension, hyperlipidemia,. Patient also being treated for multiple myeloma. on REVLIMID that she takes daily . Patient now presents with cough and sputum production short of breath some wheezing. For about a week. Also had nausea vomiting and diarrhea for a week. Feels totally rundown exhausted. Admitted for the same. Appetite poor. Also had fever Admitted with bilateral pneumonia severe and COPD exacerbation. Started on IV cefepime, IV steroids bronchodilators. Hemoglobin dropped down to 5.9. One blood ordered. Today-continues to feel better. Breathing much improved. Cough is decreased. Eating better. Repeat hemoglobin around 7. Based on the clinical picture decided to proceed with unit of blood. Review of systems: Was done for constitutional, cardiovascular, GI, pulmonary. relevant finding as above Active Medications Acyclovir (Zovirax) 400 mg PO HS [facility], [facility]1983 Last Admin: 03/19/19 21:29 Dose: 400 mg Documented by: Albuterol/Ipratropium (Duoneb 0.5 Mg-3 Mg/3 Ml Soln) 3 ml INHALATION RT-QID [facility], [facility]1983 Last Admin: 03/19/19 21:29 Dose: 3 ml Documented by: Albuterol/Ipratropium (Duoneb 0.5 Mg-3 Mg/3 Ml Soln) 3 ml INHALATION RT-Q4H PRN PRN Reason: Shortness Of Breath Or Wheezing Last Admin: 03/16/19 04:18 Dose: 3 ml Documented by: Azithromycin (Zithromax) 500 mg PO DAILY [facility], [facility]1983 Last Admin: 03/19/19 09:46 Dose: 500 mg Documented by: Brimonidine Tartrate (Alphagan P 0.2% Ophth Soln) 1 drops BOTH EYES BID [facility], 1928–1983 Last Admin: 03/19/19 21:29 Dose: 1 drops Documented by: Budesonide/Formoterol Fumarate (Symbicort 160-4.5 Mcg Inhaler) 2 puff INHALATION RT-BID [facility], 1928–1983 Last Admin: 03/19/19 21:42 Dose: Not Given Documented by: Calcitriol (Rocaltrol) 0.25 mcg PO HS [facility], [facility]1983 Last Admin: 03/19/19 21:28 Dose: 0.25 mcg Documented by: Calcium Carbonate (Oscal 500+D) 1 each PO BID [facility] Last Admin: 03/19/19 21:29 Dose: 1 each Documented by: Guaifenesin (Mucinex) 1,200 mg PO HS [facility] Last Admin: 03/19/19 21:29 Dose: 1,200 mg Documented by: Cefepime HCl 1 gm/ Sodium (Chloride) 50 mls @ 100 mls/hr IVPB DAILY [facility] Last Admin: 03/19/19 09:43 Dose: 100 mls/hr Documented by: Sodium Chloride (Saline 0.45%) 1,000 mls @ 50 mls/hr IV .Q20H [facility] Last Admin: 03/19/19 17:19 Dose: Not Given Documented by: Latanoprost (Xalatan 0.005%) 1 drops BOTH EYES [facility] Last Admin: 03/19/19 21:30 Dose: 1 drops Documented by: Metoprolol Tartrate (Lopressor) 12.5 mg PO BID [facility] Last Admin: 03/19/19 21:28 Dose: 12.5 mg Documented by: Multivitamins/Minerals (Ivite) 1 each PO DAILY [facility] Last Admin: 03/19/19 09:45 Dose: 1 each Documented by: Non-Formulary Medication (Lenalidomide [Revlimid]) 5 mg PO DAILY [facility] Last Admin: 03/19/19 09:24 Dose: Not Given Documented by: Prednisone () 40 mg PO DAILY [facility] Last Admin: 03/19/19 09:46 Dose: 40 mg Documented by: Sertraline HCl (Zoloft) 200 mg PO AC-LUNCH [facility], [facility] Last Admin: 03/19/19 09:46 Dose: 200 mg Documented by: Sodium Bicarbonate (Sodium Bicarbonate Tab) 650 mg PO TID [facility] Last Admin: 03/19/19 21:29 Dose: 650 mg Documented by: Physical examination: VITAL SIGNS: 98.4, 77, 18, 151/64, 96% room air GENERAL: sitting up, more comfortable EYES: [Pupils equal. Conjunctiva pale HEENT: External appearance of nose and ears normal, oral cavity grossly normal. NECK: JVD not raised; masses not palpable. HEART: First and second heart sounds are normal; no edema. LUNGS: Respiratory rate increased, decreased breath sounds , ABDOMEN: Soft, nontender, liver spleen not palpable, no masses palpable. PSYCH: [Alert and oriented x3; mood and affect anxious . MUSCULOSKELETAL: Diffuse wasting of muscles Investigations, reviewed in the clinical context: Hemoglobin 7 creatinine 1.83 Previous labs White count 5.2 hemoglobin 7.2 platelets 33 potassium 4.3 white count 15 BUN 31 and creatinine 2.13 Patient's labs from September 2018 show BUN 40 nitrogen of 2.51 Chest x-ray film personally reviewed by me-scattered infiltrates CT chest without contrast extensive coarse subpleural infiltrates in both lungs more severe of the right side, 2.2 cm spiculated mass in the posterior segment of the right upper lobe near the major fissure, left kidney calculus, numerous bilateral old rib fractures Assessment: -Bilateral extensive pneumonia, suspect gram-negative organism in an immunosuppressed patient, causing sepsis, POA, much improved -Severe hyperkalemia, improving -Severe macrocytic anemia, secondary unit of blood ordered today -Bicytopenia due to multiple myeloma -Paroxysmal atrial flutter and fibrillation -Acute COPD exacerbation an ex-smoker, POA, improving -Chronic congestive heart failure from systolic and diastolic dysfunction EF 50- 55% -Moderate tricuspid and severe mitral regurgitation, nontraumatic -Severe secondary pulmonary hypertension secondary to CHF and COPD -Multiple myeloma on chemotherapy -Chronic kidney disease secondary to multiple myeloma stage IV -Essential hypertension -Hyperlipidemia -Severe protein calorie malnutrition due to poor oral intake -Chronic medical debility -Multiple old rib fractures due to multiple myeloma -New spiculated lung mass 2.2 cm Plan: -second unit off blood ordered today. Continue with antibiotics.hopefully patient to be discharged home tomorrow.
[2019-03-20] MEDS: SODIUM CHLORIDE 0.45% 1,000 ML IV SCH (04:48)
[2019-03-20] MEDS ORDERED: FUROSEMIDE 10 MG/ML 2 ML VIAL IV SCH (07:00)
[2019-03-20 07:01] LABS: Anisocytosis Moderate; Basophils % (A) 0 %; Eosinophils # (A) 0.1 k/uL (0-0.7); Eosinophils % (A) 1 %; HCT 24.8 % (34.0-46.0); HGB 8.4 gm/dL (11.4-16.0); Hypochromasia Slight; Lymphocytes # (A) 0.6 k/uL (1.0-4.8); Lymphocytes % (A) 12 %; MCH 31.8 pg (25.0-35.0); Macrocytosis Slight; Mean Platelet Volume 9.7; Monocytes # (A) 0.3 k/uL (0-1.0); Monocytes % (A) 5 %; Neutrophils # (A) 4.3 k/uL (1.3-7.7); Neutrophils % (A) 81 %; Platelet Count 34 k/uL (150-450); Poikilocytosis Moderate; RBC 2.65 m/uL (3.80-5.40); RDW 21.4 % (11.5-15.5); WBC 5.4 k/uL (3.8-10.6)
[2019-03-20 07:03] LABS: Glucose,Whole Blood 88 mg/dL (75-99)
[2019-03-20 07:14] LABS: Calcium 7.8 mg/dL (8.4-10.2); Potassium 4.9 mmol/L (3.5-5.1)
[2019-03-20 07:17] LABS: MCV 93.4 fL (80.0-100.0)
[2019-03-20] MEDS: IPRATROPIUM-ALBUTEROL 3 ML NEB INHALATION SCH ×2 (08:32→11:52)
[2019-03-20] MEDS: SYMBICORT 160-4.5 MCG INHALER INHALATION SCH (08:32)
[2019-03-20 08:49] VITALS: BP 150/62; RESP 16; TEMP 98.2
[2019-03-20] MEDS: CEFEPIME 1 GM in SODIUM CHLORIDE 0.9% 50 ML IVPB SCH (09:35)
[2019-03-20] MEDS: SERTRALINE 100 MG TAB PO SCH (09:36)
[2019-03-20] MEDS: METOPROLOL TARTRATE 12.5 MG TAB PO SCH (09:36)
[2019-03-20] MEDS: SODIUM BICARBONATE TAB 650 MG TAB PO SCH (09:36)
[2019-03-20] MEDS: VIT A,C & E-LUTEIN-MINERALS 1 EACH TAB PO SCH (09:36)
[2019-03-20] MEDS: predniSONE 20 MG TAB PO SCH (09:36)
[2019-03-20] MEDS: CALCIUM CARB-VIT D 500MG-200UN 1 EACH TAB PO SCH (09:37)
[2019-03-20] MEDS: AZITHROMYCIN 500 MG TAB PO SCH (09:37)
[2019-03-20] MEDS: CALCITRIOL 0.25 MCG CAP PO SCH (09:37)
[2019-03-20] MEDS: ACYCLOVIR 200 MG CAP PO SCH (09:37)
[2019-03-20] MEDS: LENALIDOMIDE 5 MG PO SCH (09:38)
[2019-03-20] MEDS: BRIMONIDINE TARTRATE 0.2% DROPS 5 ML BTL BOTH EYES SCH (09:38)
--- NOTE | 2019-03-20 11:42 | CDI ---
Documentation Clarification Form Date: 03/20/2019 11:14:20 AM From: Rosa Brooks RN, CCDS Admit Date: 03/16/2019 02:18:00 PM Patient Name: Lucero Coleman Visit Number: [id number] Discharge Date: ATTENTION: The Clinical Documentation Specialists (CDI) and [facility] Coding Staff appreciate your assistance in clarifying documentation. Please respond to the clarification below the line at the bottom and electronically sign. The CDI & [facility] Coding staff will review the response and follow-up if needed. Please note: Queries are made part of the Legal Health Record. If you have any questions, please contact the author of this message via ITS. Dr. Christopher Serrano Paroxysmal Atrial Flutter is documented in your H&P and ongoing progress notes and further clarification is need to accurately capture the diagnosis. History/Risk factors: Atrial Flutter, Paroxysmal atrial fibrillation, Congestive heart failure, chronic systolic and diastolic, COPD, Multiple Myeloma, Clinical Indicators: 68-year-old female who present with cough, shortness of breath, nausea, vomiting and poor appetite. She has past medical history of atrial flutter and paroxysmal atrial fibrillation with current ongoing treatment. Cardiovascular exam: (Per Dr. Dr. Del Cid on 03/16/19: Tachycardia, irregular rhythm Vital signs: (03/16/19 10:05) 116/53 102 Treatment: Eliquis 2.5 PO BID (DC) Monitor CBC In your professional opinion, in order to capture the severity of condition; can you please clarify the type of Atrial Flutter if known? Typical/Type I Atypical/Type II Other, please specify Unable to determine (Last Revision: June 2017) Unable to determine MTDD
[2019-03-20 12:03] VITALS: PULSE 80
[2019-03-20 12:13] LABS: Albumin 2.51 g/dL (3.80-4.90); Gamma Globulin 0.38 g/dL (0.70-1.50)
--- NOTE | 2019-03-20 15:17 | P.PN ---
Subjective Progress Note Date: 03/20/19 Principal diagnosis: Acute bilateral pneumonia, right upper lobe spiculated lesion 67-year-old female patient with known history of COPD and multiple myeloma who is status post bone marrow transplantation at was performed in May 2018, in addition to and chronic kidney disease with a stage III kidney failure and history of CVA, hypertension, hyperlipidemia and previous history of decompensated heart failure and paroxysmal atrial fibrillation for which the patient is on long-term anticoagulation with Eliquis, and chronic pain in addition to chronic anemia thrombocytopenia. The patient has been maintained on a combination of Revlimid Decadron and Keprolis , and she has had multiple hospitalizations in the past for pulmonary issues/chronic pain. This patient presented to the ED yesterday because of increased cough and congestion and worsening shortness of breath. Apparently she's been getting short of breath for the past 1 week. Note that she has history of mild level myeloma. And she has been off her Revlimid for almost 3 weeks for recommendations that was given to her by her oncologist. The patient was also having increased nausea, episodes of vomiting in diarrhea over the past few days. She felt quite dehydrated and weak and tired and for that reason she came into the ED. She was hemodynamically stable. She underwent a CAT scan of the chest and the CAT scan of the chest showed emphysema. There was extensive bilateral peripheral pulmonary infiltrates related to inflammation/pneumonia. There was also another stellate density in the right upper lobe that looked a bit suspicious for tumor. Nevertheless, this cannot be completely characterized specially the patient is going through with a bout of pneumonia for now. She has multiple old rib fractures and she has L1 vertebral compression fracture. She also has a left kidney calculus that has unchanged compared to review his scans. This patient has had multiple bouts of infection/pneumonia. She has been infected also with pseudomonas in the past. She has taken her pneumonia shot and she has taken her flu shot for this current year. On 03/17/2019, Lucero is being seen for a follow-up. She is feeling better. She is less congested. She is unable to bring up much sputum. She is not having any specific complaints patient on 2 L of oxygen by nasal cannula. She is currently on a combination of cefepime and Zithromax. As mentioned earlier, there is bilateral pneumonia in addition to a stellate lesion in the right upper lobe that needs to be monitored at a later stage. On 03/18/2019 patient seen in follow-up on medical surgical floor. She is sitting up on the side of the bed, in no acute distress, she states her breathing is improving, lung sounds are still positive for coarse rales at mid to lower lobes bilaterally, no signs of any acute distress, room air pulse ox is 97%, distal nonproductive cough.On combination of cefepime and Zithromax. cultures have been negative, today's labs have been reviewed, showing white blood cell count of 4.9, hemoglobin is 5.9 without evidence of any active bleeding, platelet count is up to 52, sodium is 144, potassium 6.0, chloride is 122, CO2 16, B1 is 38 and creatinine is 1.91, patient's potassium chloride supplements have been put on hold, and we will obtain a repeat serum potassium level now On 03/19/2019 patient seen in follow-up on medical surgical floor. Doing well, no specific complaints, she is on room air, denies any shortness of breath, lung sounds reveal some fine rales at the right base. Patient continues on empiric antibiotics currently on cefepime and Zithromax, cultures show no growth, patient has not been able to produce a sputum culture. Today's labs have been reviewed, yesterday patient was transfused with 1 unit of packed red blood cells 5.9, today's labs show hemoglobin of 7.0, platelet count is 34, potassium is 5.0, chloride was 120, CO2 16, BUN was 30 and creatinine is 1.83 On 03/20/2019 patient seen in follow-up on selective care unit, she continues to improve, reading is stable, no shortness of breath, no chest pain, no significant cough or congestion, lung sounds are positive for some limited crackles at the right posterior lower lobe, no wheezing, no rhonchi, patient treated with a combination of cefepime and vancomycin, follow-up chest x-ray was reviewed that showed increased bilateral pleural effusions, are still small. Clinical patient is stable, and his labs have been reviewed, showing white blood cell count of 5.4, hemoglobin of 8.4, with a count is stable at 34, sodium is 143, potassium is 4.9, chloride is 117, CO2 is improving at 19, renal profile BUN of 39, and creatinine of 1.94. Cultures showed no growth, Objective - Vital Signs Vital signs: Vital Signs Temp 98.2 F 03/20/19 07:17 Pulse 80 03/20/19 12:02 Resp 16 03/20/19 07:17 BP 150/62 03/20/19 07:17 Pulse Ox 97 03/20/19 07:17 Intake & Output 03/19/19 03/20/19 03/20/19 18:59 06:59 18:59 Intake Total 0 430 240 Output Total 1 Balance 0 429 240 Weight 45.359 kg Intake: Oral 120 240 Blood Product 0 310 Rc Irr As1 Unit 0 310 [id number] Output: Stool 1 Other: Voiding Method Bedside Commode Bedside Commode # Voids 1 2 2 # Bowel Movements 1 - Exam GENERAL EXAM: Alert, very pleasant, 68-year-old white female, on room air, with a pulse ox of 94% comfortable in no apparent distress. HEAD: Normocephalic/atraumatic. EYES: Normal reaction of pupils, equal size. Conjunctiva pink, sclera white. NOSE: Clear with pink turbinates. THROAT: No erythema or exudates. NECK: No masses, no JVD, no thyroid enlargement, no adenopathy. CHEST: No chest wall deformity. Symmetrical expansion. LUNGS: Equal air entry with coarse crackles in the mid and lower posterior lower lobes wheeze, rhonchi or dullness. CVS: Regular rate and rhythm, normal S1 and S2, no gallops, no murmurs, no rubs ABDOMEN: Soft, nontender. No hepatosplenomegaly, normal bowel sounds, no guarding or rigidity. EXTREMITIES: No clubbing, no edema, no cyanosis, 2+ pulses and upper and lower extremities. MUSCULOSKELETAL: Muscle strength and tone normal. SPINE: No scoliosis or deformity SKIN: No rashes CENTRAL NERVOUS SYSTEM: Alert and oriented -3. No focal deficits, tone is normal in all 4 extremities. PSYCHIATRIC: Alert and oriented -3. Appropriate affect. Intact judgment and insight. - Labs CBC & Chem 7: 03/20/19 06:43 03/20/19 06:43 Labs: Abnormal Lab Results - Last 24 Hours (Table) 03/18/19 03/18/19 03/19/19 Range/Units 07:24 11:06 20:38 RBC (3.80-5.40) m/uL Hgb (11.4-16.0) gm/dL Hct (34.0-46.0) % RDW (11.5-15.5) % Plt Count (150-450) k/uL Lymphocytes # (1.0-4.8) k/uL Chloride (98-107) mmol/L Carbon Dioxide (22-30) mmol/L BUN (7-17) mg/dL Creatinine (0.52-1.04) mg/dL POC Glucose (mg/dL) 119 H (75-99) mg/dL Calcium (8.4-10.2) mg/dL Albumin (PEP) 2.51 L (3.80-4.90) g/dL Rnajr-2-Lhntchryi 0.49 H (0.10-0.40) g/dL Beta Globulins 0.54 L (0.60-1.30) g/dL Gamma Globulins 0.38 L (0.70-1.50) g/dL Crossmatch See Detail 03/20/19 03/20/19 Range/Units 06:43 06:43 RBC 2.65 L (3.80-5.40) m/uL Hgb 8.4 L (11.4-16.0) gm/dL Hct 24.8 L (34.0-46.0) % RDW 21.4 H (11.5-15.5) % Plt Count 34 L (150-450) k/uL Lymphocytes # 0.6 L (1.0-4.8) k/uL Chloride 117 H (98-107) mmol/L Carbon Dioxide 19 L (22-30) mmol/L BUN 39 H (7-17) mg/dL Creatinine 1.94 H (0.52-1.04) mg/dL POC Glucose (mg/dL) (75-99) mg/dL Calcium 7.8 L (8.4-10.2) mg/dL Albumin (PEP) (3.80-4.90) g/dL Iyvvr-4-Gvtqdpcsh (0.10-0.40) g/dL Beta Globulins (0.60-1.30) g/dL Gamma Globulins (0.70-1.50) g/dL Crossmatch Microbiology - Last 24 Hours (Table) 03/15/19 14:51 Blood Culture - Preliminary Blood No Growth after 96 hours Assessment and Plan Plan: 1 acute bilateral pneumonia right more than left with secondary COPD exacerbation . This patient has had multiple bouts of respiratory tract infection pneumonias in the past. She is chronically immunosuppressed related to her myeloma. She has been infected with pseudomonas in the past. Currently she is coming in with some gastrointestinal symptoms of worsening shortness of breath and she has been diagnosed having bilateral pneumonia based on the CAT scan findings. 2 right upper lobe stellate lesion that looks a bit spiculated. Note that she is known to have COPD. Underlying malignancy needs to be ruled out of a lung primary type. I would suggest completing the course of antibiotics and treating the pneumonia repeating the CAT scan prior to making any commitments regarding the right upper lobe lesion. 3 multiple myeloma maintained on a combination of Revlimid and the patient is post bone marrow transplantation 4 chronic kidney disease stage 3-4 5 congestion heart failure with improved left ventricular function and based on the echocardiogram that was done recently her EF is back to normal 6 paroxysmal atrial fibrillation, current rhythm is sinus 7 COPD 8 previous history of CVA 9 hypertension 10 hyperlipidemia 11 chronic bony aches secondary to multiple myeloma 12 pancytopenia with a component of anemia, leukopenia and thrombocytopenia, all related to multiple myeloma 13 remote history of cervical cancer 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 Hart in the 1-2 weeks. I performed a history & physical examination of the patient and discussed their management with my nurse practitioner, Bere Alves. I reviewed the nurse practitioner's note and agree with the documented findings and plan of care. Lung sounds are positive for coarse basilar crackles. The findings and the i mpression was discussed with the patient. I attest to the documentation by the nurse practitioner. Time with Patient: Less than 30
--- NOTE | 2019-03-26 23:41 | P.DS ---
Providers Date of admission: 03/16/19 14:18 Expected date of discharge: 03/20/19 Attending physician: Christopher Serrano Consults: 03/15/19 20:10 Consult Physician Stat Consulting Provider: Enriqueta Del Cid Consult Reason/Comments: COPD exacerbation Do you want consulting provider notified?: Yes 03/16/19 16:12 Consult Physician Routine Consulting Provider: Efren Larson Consult Reason/Comments: Multiple myeloma Do you want consulting provider notified?: Yes [facility] care [facility] Course: Chief Complaint: Short of breath cough congested Hospital course: This is a very pleasant 68-year-old patient of Dr. Villalobos. Chronic stable medical conditions include paroxysmal atrial flutter fibrillation, , CHF with an EF of 50-55%, tricuspid and mitral regurgitation, secondary pulmonary hypertension, chronic kidney disease stage IV, hypertension, hyperlipidemia,. Patient also being treated for multiple myeloma. on REVLIMID that she takes daily . Patient now presents with cough and sputum production short of breath some wheezing. For about a week. Also had nausea vomiting and diarrhea for a week. Feels totally rundown exhausted. Admitted for the same. Appetite poor. Also had fever Admitted with bilateral pneumonia severe and COPD exacerbation. Started on IV cefepime, IV steroids bronchodilators. Hemoglobin dropped down to 5.9. Transfuse total of 2 units of blood. Today-feeling much better. Respiratory symptoms greatly improved. Up and about. Hemoglobin stable. Care discussed with the patient detail. Discussion and discharge planning more than 35 minutes Consultation: Dr. Del Cid from pulmonary Dr. Larson from oncology Physical examination: VITAL SIGNS: 98.4, 77, 18, 151/64, 96% room air GENERAL: sitting up, more comfortable EYES: [Pupils equal. Conjunctiva pale HEENT: External appearance of nose and ears normal, oral cavity grossly normal. NECK: JVD not raised; masses not palpable. HEART: First and second heart sounds are normal; no edema. LUNGS: Respiratory rate increased, decreased breath sounds , ABDOMEN: Soft, nontender, liver spleen not palpable, no masses palpable. PSYCH: [Alert and oriented x3; mood and affect anxious . MUSCULOSKELETAL: Diffuse wasting of muscles Investigations, reviewed in the clinical context: White count 5.4 hemoglobin 8.4 L 34 pressure 4.9 bun 39 creatinine 1. 94 Previous labs White count 5.2 hemoglobin 7.2 platelets 33 potassium 4.3 white count 15 BUN 31 and creatinine 2.13 Patient's labs from September 2018 show BUN 40 nitrogen of 2.51 Chest x-ray film personally reviewed by me-scattered infiltrates CT chest without contrast extensive coarse subpleural infiltrates in both lungs more severe of the right side, 2.2 cm spiculated mass in the posterior segment of the right upper lobe near the major fissure, left kidney calculus, numerous bilateral old rib fractures Assessment: -Bilateral extensive pneumonia, suspect gram-negative organism in an immunosuppressed patient, causing sepsis, POA, improved -Severe hyperkalemia, corrected -Severe macrocytic anemia, combination of multiple myeloma and infection. Patient did receive 2 units of blood -Bicytopenia due to multiple myeloma -Paroxysmal atrial flutter and fibrillation -Acute COPD exacerbation an ex-smoker, POA, -Chronic congestive heart failure from systolic and diastolic dysfunction EF 50- 55% -Moderate tricuspid and severe mitral regurgitation, nontraumatic -Severe secondary pulmonary hypertension secondary to CHF and COPD -Multiple myeloma on chemotherapy -Chronic kidney disease secondary to multiple myeloma stage IV -Essential hypertension -Hyperlipidemia -Severe protein calorie malnutrition due to poor oral intake -Chronic medical debility -Multiple old rib fractures due to multiple myeloma -New spiculated lung mass 2.2 cm Disposition: Home Plan - Discharge Summary Discharge Rx Participant: No New Discharge Prescriptions: New Levofloxacin [Levaquin] 750 mg PO DAILY 7 Days #7 tab predniSONE 10 mg PO DAILY #30 tab Continue Sertraline [Zoloft] 200 mg PO AC-LUNCH Calcitriol 0.25 mcg PO HS Acyclovir 400 mg PO HS guaiFENesin [Mucinex] 1,200 mg PO HS Calcium Carb-Vit D 500Mg-200Un [Oscal 500+D] 1 tab PO BID Metoprolol Tartrate [Lopressor] 12.5 mg PO BID Sodium Bicarbonate Tab 650 mg PO TID Budesonide-Formot 160-4.5 Mcg [Symbicort 160-4.5 Mcg Inhaler] 2 puff INHALATION RT-BID #1 each Latanoprost [Xalatan 0.005%] 1 drop BOTH EYES HS Albuterol Nebulized [Ventolin Nebulized] 2.5 mg INHALATION RT-Q6H PRN PRN Reason: Shortness Of Breath Brimonidine Tartrate [Alphagan P 0.1% Ophth Soln] 1 drops BOTH EYES BID Vit C/E/Zn/Coppr/Lutein/Zeaxan [Preservision Areds 2 Softgel] 1 cap PO DAILY Discontinued Potassium Chloride [Klor-Con 20] 20 meq PO HS Lenalidomide [Revlimid] 5 mg PO DAILY Apixaban [Eliquis] 2.5 mg PO BID Discharge Medication List Sertraline [Zoloft] 200 mg PO AC-LUNCH 01/28/17 [History] Calcitriol 0.25 mcg PO HS 10/23/17 [History] Acyclovir 400 mg PO HS 12/28/17 [History] Calcium Carb-Vit D 500Mg-200Un [Oscal 500+D] 1 tab PO BID 08/15/18 [History] Metoprolol Tartrate [Lopressor] 12.5 mg PO BID 08/15/18 [History] Sodium Bicarbonate Tab 650 mg PO TID 08/15/18 [History] guaiFENesin [Mucinex] 1,200 mg PO HS 08/15/18 [History] Budesonide-Formot 160-4.5 Mcg [Symbicort 160-4.5 Mcg Inhaler] 2 puff INHALATION RT-BID #1 each 08/20/18 [Rx] Albuterol Nebulized [Ventolin Nebulized] 2.5 mg INHALATION RT-Q6H PRN 03/15/19 [History] Brimonidine Tartrate [Alphagan P 0.1% Ophth Soln] 1 drops BOTH EYES BID 03/15/19 [History] Latanoprost [Xalatan 0.005%] 1 drop BOTH EYES HS 03/15/19 [History] Vit C/E/Zn/Coppr/Lutein/Zeaxan [Preservision Areds 2 Softgel] 1 cap PO DAILY 03/15/19 [History] Levofloxacin [Levaquin] 750 mg PO DAILY 7 Days #7 tab 03/20/19 [Rx] predniSONE 10 mg PO DAILY #30 tab 03/20/19 [Rx] Follow up Appointment(s)/Referral(s): Efren Larson MD [STAFF PHYSICIAN] - 03/25/19 11:00 am (this is the [facility] office ) Kirby Villalobos DO [Primary Care Provider] - 04/03/19 3:40 pm Chriss Hart DO [Doctor of Osteopathic Medicine] - 04/05/19 9:45 am Patient Instructions/Handouts: Chronic Cough (ED) Activity/Diet/Wound Care/Special Instructions: Patient will be admitted HOLD ABEBE FOR NOW CBC AT DR. HERRERA OFFICE 3-4 DAYS AFTER DISCHARGE PET SCAN 04/19/19 AT 2:15 PM AT [facility] FOLLOW UP DR. LARSON 04/24/19 AT 11:30AM Discharge Disposition: HOME SELF-CARE
== END 2019-03-20 14:48 | disposition home or self-care (01) | DRG 871 ==
LOC: EC 14:21 → 4SSUR 20:10 → OBSVTOIN 03-16 14:18
PROVIDERS: ADMIT Hospitalist; ATTEND Hospitalist
PROC: 30233N1 Transfusion of Nonautologous Red Blood Cells into Peripheral Vein, Percutaneous Approach (ICD-10-PCS; principal; 2019-03-16)
DX: A41.59 Other Gram-negative sepsis (principal); J15.6 Pneumonia due to other Gram-negative bacteria; E43 Unspecified severe protein-calorie malnutrition; Z94.84 Stem cells transplant status; Z94.81 Bone marrow transplant status; K76.6 Portal hypertension; C90.00 Multiple myeloma not having achieved remission; I13.0 Hypertensive heart and chronic kidney disease with heart failure and stage 1 through stage 4 chronic kidney disease, or unspecified chronic kidney disease; N18.4 Chronic kidney disease, stage 4 (severe); I50.42 Chronic combined systolic (congestive) and diastolic (congestive) heart failure; N17.9 Acute kidney failure, unspecified; D61.818 Other pancytopenia; M19.90 Unspecified osteoarthritis, unspecified site; M06.9 Rheumatoid arthritis, unspecified; J43.9 Emphysema, unspecified; E78.5 Hyperlipidemia, unspecified; E86.0 Dehydration; E87.5 Hyperkalemia; F41.9 Anxiety disorder, unspecified; D69.6 Thrombocytopenia, unspecified; D53.9 Nutritional anemia, unspecified; I08.1 Rheumatic disorders of both mitral and tricuspid valves; I25.10 Atherosclerotic heart disease of native coronary artery without angina pectoris; I27.29 Other secondary pulmonary hypertension; I48.0 Paroxysmal atrial fibrillation; N20.0 Calculus of kidney; R53.81 Other malaise; Z98.82 Breast implant status; Z98.1 Arthrodesis status; Z87.891 Personal history of nicotine dependence; Z85.41 Personal history of malignant neoplasm of cervix uteri; Z80.1 Family history of malignant neoplasm of trachea, bronchus and lung; Z79.51 Long term (current) use of inhaled steroids; Z79.01 Long term (current) use of anticoagulants; Z88.1 Allergy status to other antibiotic agents; Z88.5 Allergy status to narcotic agent; Z88.0 Allergy status to penicillin; Z88.2 Allergy status to sulfonamides; Z86.73 Personal history of transient ischemic attack (TIA), and cerebral infarction without residual deficits; Z98.890 Other specified postprocedural states; Z83.6 Family history of other diseases of the respiratory system; Z80.42 Family history of malignant neoplasm of prostate
CPT/HCPCS: 36415; 71046; 71250; 78582; 80048; 80053; 82607; 82746; 82784; 83010; 83540; 83550; 83605; 83615; 83883; 84132; 84165; 84484; 85025; 85027; 85379; 85610; 85730; 86334; 86850; 86900; 86901; 86920; 87040; 87502; 93005; 94640; 94760; 96360; 96361; 99285

== ENCOUNTER → 2019-04-19 | Outpatient (CLI) | payer MEDICARE ==
--- NOTE | 2019-04-25 14:23 | PE ---
Nuclear medicine PET/CT HISTORY: Multiple myeloma, subsequent Patient received 11.9 mCi F-18 FDG intravenously in delayed scanning was performed from skull base to the mid thighs. Localization and attenuation correction CT scan was performed. Correlation to chest CT dated 03/15/2019 Neck and chest: Stellate density present within the right upper lobe is again noted and shows associa osvaldo hypermetabolic uptake, SUV is 2.7. There are associated subcentimeter daughter lesions at this [place] There is no mediastinal, axillary, or hilar adenopathy no supraclavicular, cervical adenopathy. N o pleural or pericardial effusion. There is improved aeration at the lung bases as compared to prior exam. Some bandlike areas of increased attenuation persist at the lung bases. There are coronary shelley ry calcifications present. Prominence of pulmonary artery may be indicative of pulmonary artery hyper tension. ABDOMEN: No retroperitoneal adenopathy. The spleen is enlarged atheromatous changes present within th e aorta. There is a nonobstructive calculus within the midpole the left kidney measuring approximatel y 13 mm in AP dimension. Calcification present towards the hilus of the right kidney is indeterminate . No suspicious hypermetabolic uptake. Extensive diverticular change noted in the sigmoid colon. Uter us and adnexal structures not definitively seen. Osseous structures show degenerative disc changes in the lower lumbar spine, patient is post lumbosac ral fusion. There are sclerotic foci involving the left posterior ribs second through 12,, multiple a dditional abnormalities within multiple ribs bilaterally suggesting healing fractures, there is focal cortical thickening. Xiphoid also shows a focus of sclerosis. No evident associated hypermetabolic u ptake however. Lytic lesion present in the L1 vertebral body. No associated hypermetabolic uptake. Le ft L3 transverse process also shows a sclerotic focus. Muscular uptake is noted within the neck. Upta ke within the mandible is noted but is indeterminate and is somewhat symmetric. Lower extremities show no suspicious hypermetabolic uptake. IMPRESSION: Findings consistent with patient's multiple myeloma. Abnormal uptake associated with joseluis ent's right lower lobe lung mass. Splenomegaly. Left nephrolithiasis, possible right nephrolithiasis.
== END | disposition home or self-care (01) ==
LOC: RADPETMAIN 11:55
PROVIDERS: ATTEND Internal Medicine Hematology & Oncology
DX: C90.00 Multiple myeloma not having achieved remission (principal); N20.0 Calculus of kidney; R91.8 Other nonspecific abnormal finding of lung field
CPT/HCPCS: 78815; A9552

== ENCOUNTER 2019-05-09 08:50 | Day surgery (SDC) | payer MEDICARE | END 2019-05-09 09:18 | disposition home or self-care (01) | LOC: RADPROMAIN 08:50 | PROVIDERS: ATTEND Internal Medicine Hematology & Oncology | DX: R91.1 Solitary pulmonary nodule (principal); Z53.8 Procedure and treatment not carried out for other reasons ==

== ENCOUNTER → 2019-07-23 | Outpatient (CLI) | payer MEDICARE ==
--- NOTE | 2019-07-23 17:29 | CT ---
EXAMINATION TYPE: CT chest wo con DATE OF EXAM: 07/23/2019 COMPARISON: Chest CT March 15, [address] March 14, 2017. Most recent PET/CT April 19 020. HISTORY: follow up lung cancer CT DLP: 245 mGycm. Automated Exposure Control for Dose Reduction was Utilized. TECHNIQUE: CT scan of the thorax is performed without IV contrast. FINDINGS: LUNGS: Background mild to moderate underlying emphysematous change redemonstrated greatest in the upp er lobes anteriorly. Persistent spiculated 2.2 x 2.1 cm nodule or nodular consolidation posteriorly r ight upper lung axial image 26 with an air bronchogram along superior margin. Some adjacent nodularit y inferiorly is noted for reference there is 6 mm nodule axial image [address] Inte rval improvement in reticulonodular opacities in bilateral lung bases and areas of irregular consolid ation towards the diaphragm bilaterally. Mild to moderate residual linear scarring and/or atelectasis in the bases most prominent near the diaphragms. No pleural effusion or pneumothorax. MEDIASTINUM: Lack of IV contrast is noted to limit evaluation for mediastinal and especially hilar ad enopathy. There are no definitive greater than 1 cm hilar or mediastinal lymph nodes. No cardiomega ly or pericardial effusion is seen. Enlarged right and left pulmonary arteries, CT findings suggestiv e of underlying pulmonary artery hypertension. Coronary artery catheterization redemonstrated which i s noted marked of underlying coronary artery disease. OTHER: Persistent roughly 9 mm calculus left kidney midpole level axial image 62. Slight scoliotic cu rvature in the spine on coronal images with mild multilevel spurring. IMPRESSION: Background mild to moderate emphysematous change with interval resolution of bilateral mi d to lower lung infiltrates and consolidation. Persistent 2.2 cm spiculated posterior right upper lob e nodule worrisome for primary lung neoplasm with mild hypermetabolic uptake noted on PET/CT.
== END | disposition home or self-care (01) ==
LOC: RADCTMAIN 16:18
PROVIDERS: ATTEND Radiology Radiation Oncology
DX: J43.9 Emphysema, unspecified (principal); R91.1 Solitary pulmonary nodule; C34.11 Malignant neoplasm of upper lobe, right bronchus or lung
CPT/HCPCS: 71250

== ENCOUNTER → 2019-09-30 | Outpatient (CLI) | payer MEDICARE ==
--- NOTE | 2019-09-30 12:09 | CT ---
EXAMINATION TYPE: CT chest wo con DATE OF EXAM: 09/30/2019 COMPARISON: 07/23/2019 HISTORY: Upper lobe right lung cancer CT DLP: 108.[address] of the chest was performed with lung and mediastinal window settings submitted. The la ck of contrast limits evaluation of the vascular, mediastinal and parenchymal structures including th e upper abdomen. LUNGS: Spiculated mass right upper lobe is redemonstrated and currently measures 1.75 x 1.75 cm versu s 2.2 x 2.1 cm previously. Satellite nodules are redemonstrated and appear to be essentially unchange d changed. Basilar parenchymal scarring. Upper lobe emphysematous changes. MEDIASTINUM/SANTA: Thoracic aorta is of normal caliber with limited evaluation given lack of contrast . The heart is not enlarged. No evidence for mediastinal mass. No lymph nodes greater than 1cm. UPPER ABDOMEN: No significant abnormality is seen. OTHER: No significant other abnormality. IMPRESSION: 1. Spiculated right upper lobe mass with adjacent satellite nodules redemonstrated. Dominant mass is slightly smaller in size. No new lesions seen.
== END | disposition home or self-care (01) ==
LOC: RADCTMAIN 11:19
PROVIDERS: ATTEND Radiology Radiation Oncology
DX: R91.8 Other nonspecific abnormal finding of lung field (principal); C34.11 Malignant neoplasm of upper lobe, right bronchus or lung; Z87.891 Personal history of nicotine dependence
CPT/HCPCS: 71250

== ENCOUNTER 2019-11-17 16:54 | Emergency (ER) | payer MEDICARE ==
--- NOTE | 2019-11-17 17:24 | ED ---
General Adult HPI - General Chief complaint: Back Pain/Injury Stated complaint: Flank Pain Time Seen by Provider: 11/17/19 17:08 Source: patient Mode of arrival: EMS Limitations: no limitations - History of Present Illness Initial comments: Patient presents the ED complaining of having diffuse lumbar back pain for the past week or so. Patient states that her pain is present while at rest, but is worse with changes in position. Patient also states that she has had difficulty urinating and mild burning dysuria for the past week or so. Patient admits to having intermittent nausea and vomiting over the past week as well. Patient states that she has a known left kidney stone. Patient denies known trauma or injury, leg pain/numbness/weakness, incontinence, fever or chills, headache, chest pain, dyspnea, dizziness, abdominal pain, diarrhea or constipation, hematuria, or any other symptoms or complaints. Patient states that she is on oral chemotherapy for treatment of multiple myeloma. - Related Data Home Medications Medication Instructions Recorded Confirmed Sertraline [Zoloft] 200 mg PO PC-LUNCH 01/28/17 11/17/19 calcitrioL [Calcitriol] 0.25 mcg PO PC-LUNCH 10/23/17 11/17/19 Acyclovir 400 mg PO PC-LUNCH 12/28/17 11/17/19 Calcium Carb-Vit D 500Mg-200Un 1 tab PO BID 08/15/18 11/17/19 [Oscal 500+D] Metoprolol Tartrate [Lopressor] 12.5 mg PO BID 08/15/18 11/17/19 Sodium Bicarbonate Tab 650 mg PO TID 08/15/18 11/17/19 Latanoprost [Xalatan 0.005%] 1 drop BOTH EYES HS 03/15/19 11/17/19 Apixaban [Eliquis] 2.5 mg PO BID 05/03/19 11/17/19 Lenalidomide [Revlimid] 5 mg PO Q48H 05/03/19 11/17/19 Potassium Chloride [Klor-Con 20] 20 meq PO PC-LUNCH 05/03/19 11/17/19 Brimonidine Tartrate [Alphagan P 1 drop BOTH EYES BID 11/17/19 11/17/19 0.2% Ophth Soln] Cyclobenzaprine [Flexeril] 10 mg PO TID PRN 11/17/19 11/17/19 Diphenoxylate HCl/Atropine 1 tab PO TID PRN 11/17/19 11/17/19 [Lomotil 2.5-0.025 mg Tablet] Ipratropium-Albuterol Nebulize 3 ml INHALATION RT-BID 11/17/19 11/17/19 [Duoneb 0.5 mg-3 mg/3 ml Soln] Previous Rx's Medication Instructions Recorded Budesonide-Formot 160-4.5 Mcg 2 puff INHALATION RT-BID #1 each 08/20/18 [Symbicort 160-4.5 Mcg Inhaler] Azithromycin [Zithromax Z-pack] 250 mg PO DIRECTED #6 tab 11/17/19 Allergies Allergy/AdvReac Type Severity Reaction Status Date / Time Penicillins Allergy Unknown Unknown Verified 11/17/19 21:47 Cephalosporins Allergy Unknown Verified 11/17/19 21:47 ciprofloxacin HCl Allergy Lip Verified 11/17/19 21:47 [From Cipro] swelling, itching codeine Allergy Unknown Verified 11/17/19 21:47 Sulfa (Sulfonamide Allergy Unknown Verified 11/17/19 21:47 Antibiotics) Review of Systems ROS Statement: Those systems with pertinent positive or pertinent negative responses have been documented in the HPI. ROS Other: All systems not noted in ROS Statement are negative. Past Medical History Past Medical History: Atrial Fibrillation, Atrial Flutter, Cancer, Heart Failure, COPD, CVA/TIA, Eye Disorder, Hyperlipidemia, Hypertension, Osteoarthritis (OA), Renal Disease, Rheumatoid Arthritis (RA) Additional Past Medical History / Comment(s): 11/09/17 acute on chronic CHF exace rbation, aflutter/afib with RVR/acute hypoxic respiratory failure/vavluar disease, pulmonary htn; 04/2017 pt diagnosed with multiple myeloma/bone cancer/CRD stage IV d/t myeloma per pt and currently receiving chemotherapy pill for maintance, bicytopenia 2ndary to chemo, low albumin, chronic anemia, 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 Lung biopsy scheduled for May 08 Past Anesthesia/Blood Transfusion Reactions: No Reported Reaction Additional Past Anesthesia/Blood Transfusion Reaction / Comment(s): Pt has received blood in past and last time 10/2017 developed rash and was tx with steroids. Pt had blood tranfusion in May 2018 and reports no reaction. Past Psychological History: Anxiety Smoking Status: Never smoker Past Alcohol Use History: None Reported Past Drug Use History: None Reported - Past Family History Father Family Medical History: Pneumonia Additional Family Medical History / Comment(s): FATHER RECENTLY FROM PNEUMONIA. HE WAS 100 YRS OLD. Mother Family Medical History: Cancer Additional Family Medical History / Comment(s): LUNG CANCER. MOTHER WAS A SMOKER. General Exam Limitations: no limitations General appearance: alert, in no apparent distress Head exam: Present: atraumatic, normocephalic Eye exam: Present: normal appearance, EOMI ENT exam: Present: mucous membranes moist Neck exam: Present: other (Trachea is in midline) Respiratory exam: Present: normal lung sounds bilaterally. Absent: respiratory distress, wheezes, rales, rhonchi Cardiovascular Exam: Present: regular rate, normal rhythm, normal heart sounds, other (Normal radial pulses bilaterally) GI/Abdominal exam: Present: soft. Absent: distended, tenderness, guarding Back exam: Present: normal inspection, full ROM, other (Mild diffuse lumbar tenderness). Absent: CVA tenderness (R), CVA tenderness (L) Neurological exam: Present: alert, oriented X3, other (No evidence of lower extremity neurological deficit or saddle anesthesia). Absent: motor sensory deficit Psychiatric exam: Present: normal affect, normal mood Skin exam: Present: warm, dry, intact, normal color Course Vital Signs 11/17/19 11/17/19 11/17/19 17:00 18:06 19:54 Temperature 98.3 F Pulse Rate 89 89 86 Respiratory 14 12 12 Rate Blood Pressure 110/51 97/45 97/45 O2 Sat by Pulse 95 96 95 Oximetry 11/17/19 11/17/19 20:57 22:17 Temperature Pulse Rate 83 84 Respiratory 12 12 Rate Blood Pressure 105/45 101/49 O2 Sat by Pulse 95 94 L Oximetry - Reevaluation(s) Reevaluation #1: 11/17/19 22:46 Patient states that her pain has improved with ED treatment, and she denies development of any new pain or symptoms while in the ED. Patient remains alert and breathing comfortably. Patient is aware of her test results. I have discussed hospital admission with the patient, but she states that she prefers to be discharged home and she prefers outpatient treatment. Patient was counseled about lumbar back pain, UTIs and pneumonia. Patient was clearly explained return and follow-up instructions, and she feels comfortable with this plan. Patient states that she has a ride home from the ED tonight. Patient was instructed to follow up closely with her primary care provider. Medical Decision Making - Medical Decision Making I suspect that the patient's symptoms are likely secondary to musculoskeletal lumbar back pain and a UTI. Patient's anemia and renal insufficiency are chronic. Patient denies having a cough, and she is afebrile and without leukocytosis. Patient's lactic acid level is within normal limits. I think that pneumonia is unlikely, but given the patient's imaging report, will cover her with a course of azithromycin for possible pneumonia. Patient was also provided with a written paper prescription for Monurol (one-time dose, recommended by pharmacist) for her UTI given her multiple reported antibiotic ALLERGIES and renal insufficiency. Will discharge patient home at this time per her preference. - Lab Data Result diagrams: 11/17/19 17:20 11/17/19 17:20 Lab Results 11/17/19 11/17/19 11/17/19 Range/Units 17:20 17:20 17:20 WBC 3.9 (3.8-10.6) k/uL RBC 2.64 L (3.80-5.40) m/uL Hgb 7.9 L (11.4-16.0) gm/dL Hct 25.6 L (34.0-46.0) % MCV 97.0 (80.0-100.0) fL MCH 30.1 (25.0-35.0) pg MCHC 31.1 (31.0-37.0) g/dL RDW 17.2 H (11.5-15.5) % Plt Count 108 L (150-450) k/uL Neutrophils % Not Reportable Neutrophils % (Manual) 69 % Lymphocytes % Not Reportable Lymphocytes % (Manual) 15 % Monocytes % Not Reportable Monocytes % (Manual) 13 % Eosinophils % Not Reportable Eosinophils % (Manual) 3 % Basophils % Not Reportable Neutrophils # Not Reportable Neutrophils # (Manual) 2.69 (1.3-7.7) k/uL Lymphocytes # Not Reportable Lymphocytes # (Manual) 0.59 L (1.0-4.8) k/uL Monocytes # Not Reportable Monocytes # (Manual) 0.51 (0-1.0) k/uL Eosinophils # Not Reportable Eosinophils # (Manual) 0.12 (0-0.7) k/uL Basophils # Not Reportable Nucleated RBCs 0 (0-0) /100 WBC Manual Slide Review Performed Hypochromasia Slight Anisocytosis Slight Macrocytosis Slight PT 11.4 (9.0-12.0) sec INR 1.1 (<1.2) APTT 36.1 H (22.0-30.0) sec Sodium 135 L (137-145) mmol/L Potassium 4.1 (3.5-5.1) mmol/L Chloride 108 H (98-107) mmol/L Carbon Dioxide 20 L (22-30) mmol/L Anion Gap 7 mmol/L BUN 45 H (7-17) mg/dL Creatinine 2.86 H (0.52-1.04) mg/dL Est GFR (CKD-EPI)AfAm 19 (>60 ml/min/1.73 sqM) Est GFR (CKD-EPI)NonAf 16 (>60 ml/min/1.73 sqM) Glucose 129 H (74-99) mg/dL Plasma Lactic Acid Afshin (0.7-2.0) mmol/L Calcium 8.8 (8.4-10.2) mg/dL Total Bilirubin 0.4 (0.2-1.3) mg/dL AST 16 (14-36) U/L ALT 15 (4-34) U/L Alkaline Phosphatase 74 (38-126) U/L Total Protein 5.4 L (6.3-8.2) g/dL Albumin 2.9 L (3.5-5.0) g/dL Urine Color Urine Appearance (Clear) Urine pH (5.0-8.0) Ur Specific Antonito (1.001-1.035) Urine Protein (Negative) Urine Glucose (UA) (Negative) Urine Ketones (Negative) Urine Blood (Negative) Urine Nitrite (Negative) Urine Bilirubin (Negative) Urine Urobilinogen (<2.0) mg/dL Ur Leukocyte Esterase (Negative) Urine RBC (0-5) /hpf Urine WBC (0-5) /hpf Urine WBC Clumps (None) /hpf Urine Bacteria (None) /hpf Urine Mucus (None) /hpf 11/17/19 11/17/19 Range/Units 18:02 20:55 WBC (3.8-10.6) k/uL RBC (3.80-5.40) m/uL Hgb (11.4-16.0) gm/dL Hct (34.0-46.0) % MCV (80.0-100.0) fL MCH (25.0-35.0) pg MCHC (31.0-37.0) g/dL RDW (11.5-15.5) % Plt Count (150-450) k/uL Neutrophils % Neutrophils % (Manual) % Lymphocytes % Lymphocytes % (Manual) % Monocytes % Monocytes % (Manual) % Eosinophils % Eosinophils % (Manual) % Basophils % Neutrophils # Neutrophils # (Manual) (1.3-7.7) k/uL Lymphocytes # Lymphocytes # (Manual) (1.0-4.8) k/uL Monocytes # Monocytes # (Manual) (0-1.0) k/uL Eosinophils # Eosinophils # (Manual) (0-0.7) k/uL Basophils # Nucleated RBCs (0-0) /100 WBC Manual Slide Review Hypochromasia Anisocytosis Macrocytosis PT (9.0-12.0) sec INR (<1.2) APTT (22.0-30.0) sec Sodium (137-145) mmol/L Potassium (3.5-5.1) mmol/L Chloride (98-107) mmol/L Carbon Dioxide (22-30) mmol/L Anion Gap mmol/L BUN (7-17) mg/dL Creatinine (0.52-1.04) mg/dL Est GFR (CKD-EPI)AfAm (>60 ml/min/1.73 sqM) Est GFR (CKD-EPI)NonAf (>60 ml/min/1.73 sqM) Glucose (74-99) mg/dL Plasma Lactic Acid Afshin 0.5 L (0.7-2.0) mmol/L Calcium (8.4-10.2) mg/dL Total Bilirubin (0.2-1.3) mg/dL AST (14-36) U/L ALT (4-34) U/L Alkaline Phosphatase (38-126) U/L Total Protein (6.3-8.2) g/dL Albumin (3.5-5.0) g/dL Urine Color Yellow Urine Appearance Cloudy H (Clear) Urine pH 5.5 (5.0-8.0) Ur Specific Antonito 1.015 (1.001-1.035) Urine Protein Trace H (Negative) Urine Glucose (UA) Negative (Negative) Urine Ketones Negative (Negative) Urine Blood Moderate H (Negative) Urine Nitrite Positive H (Negative) Urine Bilirubin Negative (Negative) Urine Urobilinogen <2.0 (<2.0) mg/dL Ur Leukocyte Esterase Large H (Negative) Urine RBC 3 (0-5) /hpf Urine WBC 32 H (0-5) /hpf Urine WBC Clumps Few H (None) /hpf Urine Bacteria Many H (None) /hpf Urine Mucus Rare H (None) /hpf - Radiology Data Radiology results: report reviewed (CT abdomen/pelvis without contrast: Mildly dilated small bowel with wall thickening and upper abdomen consistent with gastroenteritis, dense consolidation in right lower lobe- this could relate to bronchopneumonia, no renal obstruction, colonic diverticulosis) Disposition Clinical Impression: Lumbar back pain, UTI (urinary tract infection) Disposition: HOME SELF-CARE Condition: Stable Instructions (If sedation given, give patient instructions): Urinary Tract Infection in Women (ED), Acute Low Back Pain (ED), Pneumonia (ED) Additional Instructions: Return to the ER immediately should you develop new or worsening pain, a fever, chest pain, shortness of breath, vomiting, feeling dizzy or faint, leg numbness or weakness, trouble controlling your bladder or bowels, or new or worsening symptoms. Follow up closely with your primary care provider. Prescriptions: Azithromycin [Zithromax Z-pack] 250 mg PO DIRECTED #6 tab Is patient prescribed a controlled substance at d/c from ED?: No Referrals: Kirby Villalobos DO [Primary Care Provider] - 1-2 days Time of Disposition: 22:55
[2019-11-17] MEDS ORDERED: SODIUM CHLORIDE 0.9% 500 ML 500 ML IV ONE (17:30)
[2019-11-17] MEDS ORDERED: MORPHINE SULFATE 4 MG/ML SYRINGE IVP STA (17:30)
[2019-11-17 17:46] LABS: INR 1.1 (<1.2); Partial Thromboplastin Time 36.1 sec (22.0-30.0); Prothrombin Time 11.4 sec (9.0-12.0)
[2019-11-17 17:53] LABS: Albumin 2.9 g/dL (3.5-5.0); Calcium 8.8 mg/dL (8.4-10.2); Potassium 4.1 mmol/L (3.5-5.1); Total Bilirubin 0.4 mg/dL (0.2-1.3); Total Protein 5.4 g/dL (6.3-8.2)
[2019-11-17 18:00] LABS: Anisocytosis Slight; HCT 25.6 % (34.0-46.0); HGB 7.9 gm/dL (11.4-16.0); Hypochromasia Slight; MCH 30.1 pg (25.0-35.0); MCHC 31.1 g/dL (31.0-37.0); Macrocytosis Slight; Mean Platelet Volume 8.9; Platelet Count 108 k/uL (150-450); RBC 2.64 m/uL (3.80-5.40); RDW 17.2 % (11.5-15.5); WBC 3.9 k/uL (3.8-10.6)
[2019-11-17 18:35] LABS: Appearance,Urine Cloudy (Clear); Bacteria,Urine Many /hpf; Bilirubin,Urine Negative (Negative); Blood,Urine Moderate (Negative); Color,Urine Yellow; Glucose,Urine (UA) Negative (Negative); Ketones,Urine Negative (Negative); Leukocyte Esterase,Urine Large (Negative); Mucus,Urine Rare /hpf; Nitrite,Urine Positive (Negative); PH, Urine 5.5 (5.0-8.0); Protein,Urine Trace (Negative); RBC,Urine 3 /hpf (0-5); Specific Gravity,Urine 1.015 (1.001-1.035); Urobilinogen,Urine <2.0 mg/dL (<2.0); WBC,Urine 32 /hpf (0-5)
[2019-11-17 18:47] LABS: Eosinophils # (M) 0.12 k/uL (0-0.7); Lymphocytes # (M) 0.59 k/uL (1.0-4.8); Monocytes # (M) 0.51 k/uL (0-1.0); Neutrophils # (M) 2.69 k/uL (1.3-7.7); Neutrophils % (M) 69 %; Nucleated Red Blood Cells 0 /100 WBC (0-0); Total Cells Counted 100
--- NOTE | 2019-11-17 19:19 | CT ---
EXAMINATION TYPE: CT abdomen pelvis wo con DATE OF EXAM: 11/17/2019 COMPARISON: 08/03/2017 HISTORY: flank pain CT DLP: 271.9 mGycm Automated exposure control for dose reduction was used. Images were obtained from the diaphragm to the floor the pelvis with no contrast. There is dense consolidation in the right lower lobe. This area measures 9 x 6 cm. There is small ple ural effusion. Liver shows no focal defect. Spleen is intact. Stomach is intact. Gallbladder appears normal. The gerhard e ducts are not dilated. There is no adrenal mass. Kidneys have normal size. There is 2 cm calculus in the central left kidney . There is 6 mm calcification at the right renal hilum. This could be vascular. There is no hydroneph rosis. Ureters are not dilated. Abdominal aorta is atheromatous. There are multiple dilated loops of small bowel in the upper abdomen. There are numerous diverticula in the sigmoid colon. Bladder distends smoothly. There is no ascites. There is no free air. There is some jejunal wall thickening. Appendix is not definitely seen. There is no sign of thickened appendix . There is posterior fusion surgery at L5-S1. There is no lumbar compression fracture. Bony pelvis is intact. IMPRESSION: Mildly dilated small bowel with wall thickening in the upper abdomen consistent with gastroenteritis. Dense consolidation in the right lower lobe. This could relate to bronchopneumonia. Follow-up recomme nded to show clearing. Abnormalities appear new compared to old exam. Bilateral renal calcifications similar to old exam. No renal obstruction. Colonic diverticulosis without diverticulitis.
[2019-11-17 22:18] VITALS: BP 101/49
[2019-11-17] MEDS ORDERED: NITROFURANTOIN MONOHYD/M-CRYST 100 MG CAP PO STA (22:37)
[2019-11-17] MEDS ORDERED: AZITHROMYCIN 500 MG TAB PO STA (22:38)
[2019-11-17 22:59] VITALS: PULSE 86; RESP 14; TEMP 98.2
== END 2019-11-17 23:15 | disposition home or self-care (01) ==
LOC: EC 16:54
DX: N39.0 Urinary tract infection, site not specified (principal); M54.5 Low back pain; I48.91 Unspecified atrial fibrillation; I48.92 Unspecified atrial flutter; I13.0 Hypertensive heart and chronic kidney disease with heart failure and stage 1 through stage 4 chronic kidney disease, or unspecified chronic kidney disease; N18.4 Chronic kidney disease, stage 4 (severe); I50.9 Heart failure, unspecified; F41.9 Anxiety disorder, unspecified; J44.9 Chronic obstructive pulmonary disease, unspecified; Z79.01 Long term (current) use of anticoagulants; Z79.51 Long term (current) use of inhaled steroids; Z79.899 Other long term (current) drug therapy; Z88.0 Allergy status to penicillin; Z88.1 Allergy status to other antibiotic agents; Z88.2 Allergy status to sulfonamides; Z88.5 Allergy status to narcotic agent; Z86.73 Personal history of transient ischemic attack (TIA), and cerebral infarction without residual deficits; Z85.41 Personal history of malignant neoplasm of cervix uteri
CPT/HCPCS: 36415; 80053; 83605; 85025; 85610; 85730; 81001; 87040; 87086; 74176; 99284; 96374; J2270

== ENCOUNTER 2019-12-01 18:51 | Inpatient (IN) | payer MEDICARE ==
--- NOTE | 2019-12-01 19:02 | ED ---
General Adult HPI <Chriss Alexandre - Last Filed: 12/01/19 20:27> - General Source: patient Mode of arrival: wheelchair Limitations: no limitations <Robert Read - Last Filed: 12/01/19 20:48> - General Chief complaint: Back Pain/Injury Stated complaint: UTI Time Seen by Provider: 12/01/19 18:57 - History of Present Illness Initial comments: Patient is 68-year-old female presenting to emergency Department with a chief complaint of kidney pain. Patient states she was in emergency department 1 week ago and diagnosed with a urinary tract infection and early pneumonia. States she was started on azithromycin and an antibiotic for urinary tract infection. Patient states the dysuria has gradual improvement although it is still persistent. States she is diagnosed multiple myeloma and takes oral chemotherapy which is greatly impacting her renal function. States she is barely urinating on daily basis. States she only urinates about twice per day even though she is drinking plenty of water she denies any night sweats residuals. States she has COPD and continues to have a cough with some wh eezing. She states ever since her discharge, she continues to have increased weakness especially over the last 2 days. (Robert Read) - Related Data Home Medications Medication Instructions Recorded Confirmed Sertraline [Zoloft] 200 mg PO PC-LUNCH 01/28/17 11/17/19 calcitrioL [Calcitriol] 0.25 mcg PO PC-LUNCH 10/23/17 11/17/19 Acyclovir 400 mg PO PC-LUNCH 12/28/17 11/17/19 Calcium Carb-Vit D 500Mg-200Un 1 tab PO BID 08/15/18 11/17/19 [Oscal 500+D] Metoprolol Tartrate [Lopressor] 12.5 mg PO BID 08/15/18 11/17/19 Sodium Bicarbonate Tab 650 mg PO TID 08/15/18 11/17/19 Latanoprost [Xalatan 0.005%] 1 drop BOTH EYES HS 03/15/19 11/17/19 Apixaban [Eliquis] 2.5 mg PO BID 05/03/19 11/17/19 Lenalidomide [Revlimid] 5 mg PO Q48H 05/03/19 11/17/19 Potassium Chloride [Klor-Con 20] 20 meq PO PC-LUNCH 05/03/19 11/17/19 Brimonidine Tartrate [Alphagan P 1 drop BOTH EYES BID 11/17/19 11/17/19 0.2% Ophth Soln] Cyclobenzaprine [Flexeril] 10 mg PO TID PRN 11/17/19 11/17/19 Diphenoxylate HCl/Atropine 1 tab PO TID PRN 11/17/19 11/17/19 [Lomotil 2.5-0.025 mg Tablet] Ipratropium-Albuterol Nebulize 3 ml INHALATION RT-BID 11/17/19 11/17/19 [Duoneb 0.5 mg-3 mg/3 ml Soln] Previous Rx's Medication Instructions Recorded Budesonide-Formot 160-4.5 Mcg 2 puff INHALATION RT-BID #1 each 08/20/18 [Symbicort 160-4.5 Mcg Inhaler] Azithromycin [Zithromax Z-pack (6 250 mg PO DIRECTED #6 tab 11/17/19 tabs)] Allergies Allergy/AdvReac Type Severity Reaction Status Date / Time Penicillins Allergy Unknown Unknown Verified 12/01/19 18:57 Cephalosporins Allergy Unknown Verified 12/01/19 18:57 ciprofloxacin HCl Allergy Lip Verified 12/01/19 18:57 [From Cipro] swelling, itching codeine Allergy Unknown Verified 12/01/19 18:57 Sulfa (Sulfonamide Allergy Unknown Verified 12/01/19 18:57 Antibiotics) Review of Systems ROS Other: All systems not noted in ROS Statement are negative. <Chriss Alexandre - Last Filed: 12/01/19 20:27> ROS Other: All systems not noted in ROS Statement are negative. <Robert Read - Last Filed: 12/01/19 20:48> ROS Statement: Those systems with pertinent positive or pertinent negative responses have been documented in the HPI. Past Medical History Past Medical History: Atrial Fibrillation, Atrial Flutter, Cancer, Heart Failure, COPD, CVA/TIA, Eye Disorder, Hyperlipidemia, Hypertension, Osteoarthritis (OA), Renal Disease, Rheumatoid Arthritis (RA) Additional Past Medical History / Comment(s): 11/09/17 acute on chronic CHF exacerbation, aflutter/afib with RVR/acute hypoxic respiratory failure/vavluar disease, pulmonary htn; 04/2017 pt diagnosed with multiple myeloma/bone cancer/CRD stage IV d/t myeloma per pt and currently receiving chemotherapy pill for maintance, bicytopenia 2ndary to chemo, low albumin, chronic anemia, 2010 CVA with L leg weakness, cervical cancer with surgery, bilateral glaucoma, L eye macular degeneration, past back and R leg pain but none since lumbar fusion History of Any Multi-Drug Resistant Organisms: None Reported Past Surgical History: Back Surgery, Breast Surgery Additional Past Surgical History / Comment(s): LUMBAR FUSION 2015, BREAST IMPLANTS IN THE 70'S REMOVED MID , CERVIX REMOVED D/T CANCER. Lung biopsy scheduled for May 08 Past Anesthesia/Blood Transfusion Reactions: No Reported Reaction Additional Past Anesthesia/Blood Transfusion Reaction / Comment(s): Pt has received blood in past and last time 10/2017 developed rash and was tx with steroids. Pt had blood tranfusion in May 2018 and reports no reaction. Past Psychological History: Anxiety Smoking Status: Never smoker Past Alcohol Use History: None Reported Past Drug Use History: None Reported - Past Family History Father Family Medical History: Pneumonia Additional Family Medical History / Comment(s): FATHER RECENTLY FROM PNEUMONIA. HE WAS 100 YRS OLD. Mother Family Medical History: Cancer Additional Family Medical History / Comment(s): LUNG CANCER. MOTHER WAS A SMOKER. <Robert Read - Last Filed: 12/01/19 20:48> General Exam Limitations: no limitations General appearance: alert, in no apparent distress Head exam: Present: atraumatic, normocephalic, normal inspection Eye exam: Present: normal appearance, PERRL, EOMI Pupils: Present: normal accommodation ENT exam: Present: normal exam, normal oropharynx, mucous membranes dry Neck exam: Present: normal inspection, full ROM. Absent: tenderness Respiratory exam: Present: rhonchi (Bilateral) Cardiovascular Exam: Present: regular rate, normal rhythm, normal heart sounds Extremities exam: Present: normal inspection, full ROM, normal capillary refill, other (Skin tenting). Absent: tenderness Back exam: Present: normal inspection, full ROM. Absent: tenderness, CVA tenderness (R), CVA tenderness (L) Neurological exam: Present: alert, oriented X3 Psychiatric exam: Present: normal affect, normal mood Skin exam: Present: warm, dry, intact, normal color <Robert Read Last Filed: 12/01/19 20:48> Course <BaldomeroChriss - Last Filed: 12/01/19 20:27> Vital Signs 12/01/19 18:54 Temperature 98.1 F Pulse Rate 100 Respiratory 18 Rate Blood Pressure 95/63 O2 Sat by Pulse 96 Oximetry - Reevaluation(s) Reevaluation #1: 12/01/19 20:27 PA supervision: I did personally evaluate this case patient did present with complaints of shortness of breath. X-ray demonstrates a right lower lobe infil trate. Patient is currently under treatment for myeloma and does demonstrate chronic anemia and worsening renal insufficiency. Visual be admitted case discussed with Desean for Dr. Johnson (Chriss Alexandre) Medical Decision Making - Lab Data Result diagrams: 12/01/19 19:26 12/01/19 19:26 <Chriss Alexandre - Last Filed: 12/01/19 20:27> - Lab Data Result diagrams: 12/01/19 19:26 12/01/19 19:26 <Robert Read - Last Filed: 12/01/19 20:48> - Medical Decision Making Patient is 68-year-old female presenting to emergency Department chief complaint of kidney pain. Physical examination patient appears quite dry. She does have skin tenting along with dry mucous members. She is not been drinking or eating much. Hemoglobin appears to be improving compared to last week at 8.7, currently. Although, her renal function appears to be decreasing with BUN of 48 and creatinine of3.44. Patient was started on IV fluids. She does have lactate of 2.3, although I suspect this is secondary to dehydration. X-ray reveals right lower lobe consolidation that appears to be new compared to last time. There is failure of outpatient treatment with azithromycin for pneumonia. I spoke with inpatient pharmacy, who suggested the patient be started on 1 g Azactem. Patient also given IV fluids. I spoke with Desean, from Dr Johnson's group, who will admit the patient for further medical management. Case discussed with Dr. Alexandre. Admitting physician is . Infectious disease consulted. Nephrology consulted. (Robert Read) - Lab Data Lab Results 12/01/19 12/01/19 12/01/19 Range/Units 19:26 19:26 19: WBC 6.3 (3.8-10.6) k/uL RBC 2.92 L (3.80-5.40) m/uL Hgb 8.6 L (11.4-16.0) gm/dL Hct 27.6 L (34.0-46.0) % MCV 94.5 (80.0-100.0) fL MCH 29.6 (25.0-35.0) pg MCHC 31.3 (31.0-37.0) g/dL RDW 18.0 H (11.5-15.5) % Plt Count 118 L (150-450) k/uL Neutrophils % 62 % Lymphocytes % 12 % Monocytes % 7 % Eosinophils % 14 % Basophils % 1 % Neutrophils # 3.9 (1.3-7.7) k/uL Lymphocytes # 0.8 L (1.0-4.8) k/uL Monocytes # 0.4 (0-1.0) k/uL Eosinophils # 0.9 H (0-0.7) k/uL Basophils # 0.1 (0-0.2) k/uL Hypochromasia Slight Anisocytosis Slight Sodium 139 (137-145) mmol/L Potassium 3.8 (3.5-5.1) mmol/L Chloride 101 (98-107) mmol/L Carbon Dioxide 27 (22-30) mmol/L Anion Gap 11 mmol/L BUN 48 H (7-17) mg/dL Creatinine 3.44 H (0.52-1.04) mg/dL Est GFR (CKD-EPI)AfAm 15 (>60 ml/min/1.73 sqM) Est GFR (CKD-EPI)NonAf 13 (>60 ml/min/1.73 sqM) Glucose 102 H (74-99) mg/dL Plasma Lactic Acid Afshin 2.3 H* (0.7-2.0) mmol/L Calcium 9.7 (8.4-10.2) mg/dL Total Bilirubin 0.4 (0.2-1.3) mg/dL AST 18 (14-36) U/L ALT 14 (4-34) U/L Alkaline Phosphatase 76 (38-126) U/L Total Protein 5.5 L (6.3-8.2) g/dL Albumin 3.2 L (3.5-5.0) g/dL Disposition <Chriss Alexandre - Last Filed: 12/01/19 20:27> Is patient prescribed a controlled substance at d/c from ED?: No Time of Disposition: 20:48 <Robert Read - Last Filed: 12/01/19 20:48> Clinical Impression: Acute renal failure, Pneumonia Disposition: ADMITTED IP TO THIS HOSP Condition: Fair Referrals: Kirby Villalobos DO [Primary Care Provider] - 1-2 days
[2019-12-01] MEDS ORDERED: SODIUM CHLORIDE 0.9% 1,000 ML IV STA (19:12)
[2019-12-01 19:54] LABS: Anisocytosis Slight; Basophils # (A) 0.1 k/uL (0-0.2); Basophils % (A) 1 %; Eosinophils # (A) 0.9 k/uL (0-0.7); Eosinophils % (A) 14 %; HCT 27.6 % (34.0-46.0); HGB 8.6 gm/dL (11.4-16.0); Hypochromasia Slight; Lymphocytes # (A) 0.8 k/uL (1.0-4.8); Lymphocytes % (A) 12 %; MCH 29.6 pg (25.0-35.0); MCHC 31.3 g/dL (31.0-37.0); MCV 94.5 fL (80.0-100.0); Mean Platelet Volume 8.7; Monocytes # (A) 0.4 k/uL (0-1.0); Monocytes % (A) 7 %; Neutrophils # (A) 3.9 k/uL (1.3-7.7); Neutrophils % (A) 62 %; Platelet Count 118 k/uL (150-450); RBC 2.92 m/uL (3.80-5.40); WBC 6.3 k/uL (3.8-10.6)
--- NOTE | 2019-12-01 20:00 | XR ---
EXAMINATION TYPE: XR chest 2V DATE OF EXAM: 12/01/2019 COMPARISON: 03/19/2019 HISTORY: Abdominal pain chest pain TECHNIQUE: 2 views FINDINGS: There is some airspace consolidation at the right lung base. There is blunting right costop hrenic angle. There are multiple old bilateral rib fractures. There are no hilar masses. Heart size i s normal. IMPRESSION: There is new consolidation at the right lung base compared to old exam. There is clearing of the left pleural effusion compared to old exam. Right pleural effusion is unchanged. No heart raman lure. Pulmonary vascularity is improved compared to old exam.
[2019-12-01 20:24] LABS: Albumin 3.2 g/dL (3.5-5.0); Calcium 9.7 mg/dL (8.4-10.2); Potassium 3.8 mmol/L (3.5-5.1); Total Bilirubin 0.4 mg/dL (0.2-1.3); Total Protein 5.5 g/dL (6.3-8.2)
[2019-12-01] MEDS ORDERED: AZTREONAM 1 GM in SODIUM CHLORIDE 0.9% 50 ML IVPB STA (20:37)
[2019-12-01] MEDS ORDERED: LORazepam 2 MG/ML INJ IV PRN (20:41)
[2019-12-01] MEDS ORDERED: NALOXONE 0.4 MG/ML 1 ML VIAL IV PRN (20:41)
[2019-12-01] MEDS ORDERED: ONDANSETRON 4 MG/2 ML VIAL IVP STA (21:31)
[2019-12-01] MEDS ORDERED: ONDANSETRON 4 MG/2 ML VIAL IVP PRN (21:31)
[2019-12-01] MEDS: SODIUM CHLORIDE 0.9% 1,000 ML IV SCH (21:36)
[2019-12-02] MEDS: AZTREONAM 0.5 GM in SODIUM CHLORIDE 0.9% 50 ML IVPB SCH ×2 (05:13→12:31)
[2019-12-02 09:09] LABS: Appearance,Urine Cloudy (Clear); Bacteria,Urine Many /hpf; Bilirubin,Urine Negative (Negative); Blood,Urine Small (Negative); Color,Urine Light Yellow; Glucose,Urine (UA) Negative (Negative); Ketones,Urine Negative (Negative); Leukocyte Esterase,Urine Large (Negative); Mucus,Urine Rare /hpf; Nitrite,Urine Positive (Negative); PH, Urine 6.5 (5.0-8.0); Protein,Urine Trace (Negative); RBC,Urine 8 /hpf (0-5); Specific Gravity,Urine 1.014 (1.001-1.035); Squamous Epithelial Cell,Urine 2 /hpf (0-4); Urobilinogen,Urine <2.0 mg/dL (<2.0); WBC,Urine >182 /hpf (0-5)
[2019-12-02] MEDS: SODIUM CHLORIDE 0.9% 1,000 ML IV SCH (09:50)
[2019-12-02] MEDS ORDERED: NON FORMULARY DRUG (Lenalidomide [Revlimid] 5 MG Capsule) PO SCH (10:45)
--- NOTE | 2019-12-02 11:03 | P.HPIM ---
History of Present Illness This is a pleasant 68 years old female with past medical history of multiple myeloma kept on Revlimid, status post bone marrow transplantation with right lower lobe lung mass, splenomegaly, left nephrolithiasis and possible right ne phrolithiasis, COPD, chronic kidney disease stage 3-4, she has bilateral pneumonia earlier this year. Also she has history of paroxysmal atrial fibrillation, chronic heart failure, all CVA, hypertension, hyperlipidemia, glaucoma, anxiety, chronic back pain. She is a patient of Dr. Villalobos and Dr. Larson and Dr. De Jesus. Presents because of urinary symptoms and so numerous coughing. Patient had chest tightness with coughing one week ago associated with inability to urinate very well, she came to emergency room and she was discharged home however she came getting worse over the week and she came yesterday didn't emergency room. She maxilla phlegm but no chest pain however she feels achy all over, she has little dyspnea with little dysuria and difficulty to urinate, she has right flank pain and right costovertebral angle tenderness. She denies history of smoking. Vitals are stable, blood pressure on low normal side 97/61. Labs including unremarkable CBC except for mild anemia of 8.6, elevated creatinine of 3.4, which is slightly above her baseline of 1.9-3.2. Elevated lactic acid 2.3 came back to normal at 0.7. Urinalysis is suspicious of infection Chest x-ray: No consolidation of the right lung base compared to old exam In the emergency room she received normal saline 1 L and started on aztreonam and continued with normal saline at 75 mL/h ID and nephrology team were consulted from ED Review of Systems CONSTITUTIONAL: No fever, no malaise, no fatigue. HEENT: No recent visual problems or hearing problems. Denied any sore throat. CARDIOVASCULAR: No orthopnea, PND, no palpitations, no syncope. PULMONARY: no hemoptysis. No chest wall tenderness GASTROINTESTINAL: No diarrhea, no nausea, no vomiting, no abdominal pain. Normoactive bowel sounds. NEUROLOGICAL: No headaches, no weakness, no numbness. HEMATOLOGICAL: Denies any bleeding or petechiae. GENITOURINARY: Denies any burning micturition, frequency, or urgency. MUSCULOSKELETAL/RHEUMATOLOGICAL: Denies any joint pain, swelling, or any muscle pain. ENDOCRINE: Denies any polyuria or polydipsia. Past Medical History Past Medical History: Atrial Fibrillation, Atrial Flutter, Cancer, Heart Failure, COPD, CVA/TIA, Eye Disorder, Hyperlipidemia, Hypertension, Osteoarthritis (OA), Pneumonia, Renal Disease, Rheumatoid Arthritis (RA) Additional Past Medical History / Comment(s): CHF exacerbation, aflutter/afib with RVR/acute hypoxic respiratory failure/vavluar disease, pulmonary htn; 04/2017 pt diagnosed with multiple myeloma/bone cancer/CRD stage IV d/t myeloma per pt and currently receiving chemotherapy pill for maintance, bicytopenia 2ndary to chemo, last dose of chemo 11/30. low albumin, chronic anemia, 2010 CVA with L leg weakness, cervical cancer with surgery, bilateral glaucoma, L eye macular degeneration, past back and R leg pain but none since lumbar fusion History of Any Multi-Drug Resistant Organisms: None Reported Past Surgical History: Back Surgery, Breast Surgery Additional Past Surgical History / Comment(s): LUMBAR FUSION 2015, BREAST IMPLANTS IN THE 70'S REMOVED MID 'S, CERVIX REMOVED D/T CANCER. Past Anesthesia/Blood Transfusion Reactions: No Reported Reaction Additional Past Anesthesia/Blood Transfusion Reaction / Comment(s): Pt has received blood in past, on 10/2017 developed rash and was tx with steroids. Pt had blood tranfusion after with no recactions. Past Psychological History: Anxiety Additional Psychological History / Comment(s): Pt resides with her spouse and nonfamily caregiver. She ambulates with a cane. She no longer drives, since her cancer diagnosis. She gets to appts by family, friends or takes a cab, if shoe stock associate is available she takes her. Smoking Status: Never smoker Past Alcohol Use History: None Reported Additional Past Alcohol Use History / Comment(s): started smoking at age 19 smoked just under 1 ppd. quit 2015 Past Drug Use History: None Reported - Past Family History Father Family Medical History: Pneumonia Additional Family Medical History / Comment(s): FATHER RECENTLY FROM PNEUMONIA. HE WAS 100 YRS OLD. Mother Family Medical History: Cancer Additional Family Medical History / Comment(s): LUNG CANCER. MOTHER WAS A SMOKER. Medications and Allergies Home Medications Medication Instructions Recorded Confirmed Type Sertraline [Zoloft] 200 mg PO PC-LUNCH 01/28/12/01/19 History calcitrioL [Calcitriol] 0.25 mcg PO PC-LUNCH 10/23/17 12/01/19 History Acyclovir 400 mg PO PC-LUNCH 12/28/17 12/01/19 History Calcium Carb-Vit D 500Mg-200Un 2 tab PO DAILY@1200 08/15/18 12/01/19 History [Oscal 500+D] Metoprolol Tartrate [Lopressor] 12.5 mg PO BID@1200,2100 08/15/18 12/01/19 History Sodium Bicarbonate Tab 1,300 mg PO DAILY@1200 08/15/18 12/01/19 History Budesonide-Formot 160-4.5 Mcg 2 puff INHALATION RT-BID #1 each 08/20/18 12/01/19 Rx [Symbicort 160-4.5 Mcg Inhaler] Latanoprost [Xalatan 0.005%] 1 drop BOTH EYES HS 03/15/19 12/01/19 History Apixaban [Eliquis] 2.5 mg PO BID@1200,2100 05/03/19 12/01/19 History Lenalidomide [Revlimid] 5 mg PO Q48H 05/03/19 12/01/19 History Potassium Chloride [Klor-Con 20] 20 meq PO PC-LUNCH 05/03/19 12/01/19 History Cyclobenzaprine [Flexeril] 10 mg PO BID@1200,209911/17/19 12/01/19 History Ipratropium-Albuterol Nebulize 3 ml INHALATION RT-BID@1200,209911/17/19 12/01/19 History [Duoneb 0.5 mg-3 mg/3 ml Soln] Sodium Bicarbonate Tab 650 mg PO HS 12/01/19 12/01/19 History Allergies Allergy/AdvReac Type Severity Reaction Status Date / Time Penicillins Allergy Unknown Unknown Verified 12/01/19 21:50 Cephalosporins Allergy Unknown Verified 12/01/19 21:50 ciprofloxacin HCl Allergy Lip Verified 12/01/19 21:50 [From Cipro] swelling, itching codeine Allergy Unknown Verified 12/01/19 21:50 Sulfa (Sulfonamide Allergy Unknown Verified 12/01/19 21:50 Antibiotics) Physical Exam Vitals: Vital Signs Temp Pulse Pulse Resp BP BP Pulse Ox 12/02/19 07:00 98.4 F 86 18 97/61 94 L 12/02/19 03:49 16 12/02/19 03:40 98.2 F 80 16 101/45 96 12/01/19 20:53 91 16 110/50 96 12/01/19 18:54 98.1 F 100 18 95/63 96 Intake and Output 12/01/19 12/02/19 12/02/19 22:59 06:59 14:59 Other: # Voids 0 0 Weight 42.184 kg 42.184 kg -GENERAL: The patient is alert and oriented x3, not in any acute distress. Thin built HEENT: Pupils are round and equally reacting to light. EOMI. No scleral icterus. No conjunctival pallor. Normocephalic, atraumatic. No pharyngeal erythema. No thyromegaly. CARDIOVASCULAR: S1 and S2 present. No murmurs, rubs, or gallops. PULMONARY: Chest is clear to auscultation, no wheezing or crackles. -ABDOMEN: Soft, right flank and right costovertebral angle tenderness with no rebound tenderness, nondistended, normoactive bowel sounds. No palpable organomegaly. MUSCULOSKELETAL: No joint swelling or deformity. EXTREMITIES: No cyanosis, clubbing, or pedal edema. NEUROLOGICAL: Gross neurological examination did not reveal any focal deficits. SKIN: No rashes. No petechiae Results CBC & Chem 7: 12/01/19 19:26 12/01/19 19:26 Labs: Abnormal Lab Results - Last 24 Hours (Table) 12/01/19 12/01/19 12/01/19 Range/Units 19:26 19:26 19:26 RBC 2.92 L (3.80-5.40) m/uL Hgb 8.6 L (11.4-16.0) gm/dL Hct 27.6 L (34.0-46.0) % RDW 18.0 H (11.5-15.5) % Plt Count 118 L (150-450) k/uL Lymphocytes # 0.8 L (1.0-4.8) k/uL Eosinophils # 0.9 H (0-0.7) k/uL BUN 48 H (7-17) mg/dL Creatinine 3.44 H (0.52-1.04) mg/dL Glucose 102 H (74-99) mg/dL Plasma Lactic Acid Afshin 2.3 H* (0.7-2.0) mmol/L Total Protein 5.5 L (6.3-8.2) g/dL Albumin 3.2 L (3.5-5.0) g/dL Urine Appearance (Clear) Urine Protein (Negative) Urine Blood (Negative) Urine Nitrite (Negative) Ur Leukocyte Esterase (Negative) Urine RBC (0-5) /hpf Urine WBC (0-5) /hpf Urine WBC Clumps (None) /hpf Urine Bacteria (None) /hpf Urine Mucus (None) /hpf 12/02/19 Range/Units 08:53 RBC (3.80-5.40) m/uL Hgb (11.4-16.0) gm/dL Hct (34.0-46.0) % RDW (11.5-15.5) % Plt Count (150-450) k/uL Lymphocytes # (1.0-4.8) k/uL Eosinophils # (0-0.7) k/uL BUN (7-17) mg/dL Creatinine (0.52-1.04) mg/dL Glucose (74-99) mg/dL Plasma Lactic Acid Afshin (0.7-2.0) mmol/L Total Protein (6.3-8.2) g/dL Albumin (3.5-5.0) g/dL Urine Appearance Cloudy H (Clear) Urine Protein Trace H (Negative) Urine Blood Small H (Negative) Urine Nitrite Positive H (Negative) Ur Leukocyte Esterase Large H (Negative) Urine RBC 8 H (0-5) /hpf Urine WBC >182 H (0-5) /hpf Urine WBC Clumps Many H (None) /hpf Urine Bacteria Many H (None) /hpf Urine Mucus Rare H (None) /hpf Thrombosis Risk Factor Assmnt - Choose All That Apply Each Risk Factor Represents 2 Points: Age 61-74 years, Malignancy Thrombosis Risk Factor Assessment Total Risk Factor Score: 4 Thrombosis Risk Factor Assessment Level: Moderate Risk Assessment and Plan Assessment: -Acute urinary tract infection in immunocompromised patient, with suspicion for right pyelonephritis -new consolidation on the right lung base, patient with history of right lower lobe lung mass, per PET scan -multiple myeloma kept on Revlimid, status post bone marrow transplantation with splenomegaly, left nephrolithiasis and possible right nephrolithiasis -Mild to moderate protein calorie malnutrition -Chronic kidney disease stage 3-4 -COPD -Paroxysmal atrial fibrillation -Chronic heart failure -Old CVA -Hypertension -Hyperlipidemia -Glaucoma -Chronic anxiety -Chronic back pain Plan: This is a pleasant 68 years old female who presents with UTI, and right lung consolidation. Continue with antibiotics per infectious disease team. Since sputum for culture. Follow-up recommendation by auto research engineer. Also we'll consult pulmonary service for her right lung new consolidation check influenza. Labs and medication were reviewed.. Continue same treatment. Continue with symptomatic treatment. Resume home medication. Monitor lytes and vitals. DVT and GI prophylaxis. Further recommendations depends on the clinical course of the patient DVT prophylaxis: Eliquis GI Prophylaxis: Pepcid PT/OT: Pending Prognosis is guarded
[2019-12-02] MEDS: APIXABAN 2.5 MG TABLET PO SCH ×2 (12:30→21:51)
[2019-12-02] MEDS: SERTRALINE 100 MG TAB PO SCH (12:30)
[2019-12-02] MEDS: POTASSIUM CHLORIDE ER 20 MEQ TAB.ER PO SCH (12:30)
[2019-12-02] MEDS: METOPROLOL TARTRATE 12.5 MG TAB PO SCH ×2 (12:30→21:50)
[2019-12-02] MEDS: CALCIUM CARB-VIT D 500MG-200UN 1 EACH TAB PO SCH (12:30)
[2019-12-02] MEDS: CYCLOBENZAPRINE 10 MG TAB PO SCH ×2 (12:30→21:50)
[2019-12-02] MEDS: MENTHOL (NICE) LOZENGE MUCOUS MEM PRN ×2 (14:37→18:11)
[2019-12-02] MEDS: guaiFENesin-DM 100-10MG/5ML 10 ML CUP PO PRN (14:37)
[2019-12-02] MEDS: SYMBICORT 160-4.5 MCG INHALER INHALATION SCH (19:39)
--- NOTE | 2019-12-02 20:40 | P.CONS ---
History of Present Illness - Reason for Consult Consult date: 12/02/19 UTI and pneumonia Requesting physician: Mina E Sheet - Chief Complaint Cough and urinary burning x few days - History of Present Illness Patient is a 68 year old female presenting to the ER at [facility] yesterday evening for evaluation of kidney pain patient has been complaining of pain mostly in the right flank area apparently the patient was recently evaluated this facility and has been diagnosed with UTI and pneumonia patient has been treated with the Zithromax antibiotic for UTI patient unclear about the name patient mentioned. Have initial improvement with her urinary symptoms however the patient now having decreased urine output some burning patient also having a cough which has been moderate intensity with occasional sputum production no hemoptysis or pleuritic chest pain with these symptoms the patient was evaluated by the ER physician on arrival to the ER the patient was afebrile and did have a normal white count with a creatinine of 3.44 mildly elevated lactate use of 2.3 she did have a positive UA chest x-ray showing a right lung base consolidation, patient has been started on Azactam because of her multiple antibiotic ALLERGIES infection disease was consulted for further management of antibiotic therapy Review of Systems Positive point has been mentioned in the HPI rest of the systems are negative Past Medical History Past Medical History: Atrial Fibrillation, Atrial Flutter, Cancer, Heart Failure, COPD, CVA/TIA, Eye Disorder, Hyperlipidemia, Hypertension, Osteoarthritis (OA), Pneumonia, Renal Disease, Rheumatoid Arthritis (RA) Additional Past Medical History / Comment(s): CHF exacerbation, aflutter/afib with RVR/acute hypoxic respiratory failure/vavluar disease, pulmonary htn; 04/2017 pt diagnosed with multiple myeloma/bone cancer/CRD stage IV d/t myeloma per pt and currently receiving chemotherapy pill for maintance, bicytopenia 2ndary to chemo, last dose of chemo 11/30. low albumin, chronic anemia, 2010 CVA with L leg weakness, cervical cancer with surgery, bilateral glaucoma, L eye macular degeneration, past back and R leg pain but none since lumbar fusion History of Any Multi-Drug Resistant Organisms: None Reported Past Surgical History: Back Surgery, Breast Surgery Additional Past Surgical History / Comment(s): LUMBAR FUSION 2015, BREAST IMPLANTS IN THE 70'S REMOVED MID 'S, CERVIX REMOVED D/T CANCER. Past Anesthesia/Blood Transfusion Reactions: No Reported Reaction Additional Past Anesthesia/Blood Transfusion Reaction / Comm: Pt has received blood in past, on 10/2017 developed rash and was tx with steroids. Pt had blood tranfusion after with no recactions. Past Psychological History: Anxiety Additional Psychological History / Comment(s): Pt resides with her spouse and nonfamily caregiver. She ambulates with a cane. She no longer drives, since her cancer diagnosis. She gets to appts by family, friends or takes a cab, if district court bailiff is available she takes her. Smoking Status: Never smoker Past Alcohol Use History: None Reported Additional Past Alcohol Use History / Comment(s): started smoking at age 19 smoked just under 1 ppd. quit 2015 Past Drug Use History: None Reported - Past Family History Father Family Medical History: Pneumonia Additional Family Medical History / Comment(s): FATHER RECENTLY FROM PNEUMONIA. HE WAS 100 YRS OLD. Mother Family Medical History: Cancer Additional Family Medical History / Comment(s): LUNG CANCER. MOTHER WAS A SMOKE R. Medications and Allergies Home Medications Medication Instructions Recorded Confirmed Type Sertraline [Zoloft] 200 mg PO PC-LUNCH 01/28/17 12/01/19 History calcitrioL [Calcitriol] 0.25 mcg PO PC-LUNCH 10/23/17 12/01/19 History Acyclovir 400 mg PO PC-LUNCH 12/28/17 12/01/19 History Calcium Carb-Vit D 500Mg-200Un 2 tab PO DAILY@1200 08/15/18 12/01/19 History [Oscal 500+D] Metoprolol Tartrate [Lopressor] 12.5 mg PO BID@1200,2100 08/15/18 12/01/19 History Sodium Bicarbonate Tab 1,300 mg PO DAILY@1200 08/15/18 12/01/19 History Budesonide-Formot 160-4.5 Mcg 2 puff INHALATION RT-BID #1 each 08/20/18 12/01/19 Rx [Symbicort 160-4.5 Mcg Inhaler] Latanoprost [Xalatan 0.005%] 1 drop BOTH EYES HS 03/15/19 12/01/19 History Apixaban [Eliquis] 2.5 mg PO BID@1200,2100 05/03/19 12/01/19 History Lenalidomide [Revlimid] 5 mg PO Q48H 05/03/19 12/01/19 History Potassium Chloride [Klor-Con ] 20 meq PO PC-LUNCH 05/03/19 12/01/19 History Cyclobenzaprine [Flexeril] 10 mg PO BID@1200,2100 11/17/19 12/01/19 History Ipratropium-Albuterol Nebulize 3 ml INHALATION RT-BID@1200,2100 11/17/19 12/01/19 History [Duoneb 0.5 mg-3 mg/3 ml Soln] Sodium Bicarbonate Tab 650 mg PO HS 12/01/19 12/01/19 History Allergies Allergy/AdvReac Type Severity Reaction Status Date / Time Penicillins Allergy Unknown Unknown Verified 12/01/19 21:50 Cephalosporins Allergy Unknown Verified 12/01/19 21:50 ciprofloxacin HCl Allergy Lip Verified 12/01/19 21:50 [From Cipro] swelling, itching codeine Allergy Unknown Verified 12/01/19 21:50 Sulfa (Sulfonamide Allergy Unknown Verified 12/01/19 21:50 Antibiotics) Physical Exam Vitals: Vital Signs Temp Pulse Pulse Resp BP BP Pulse Ox 12/02/19 15:00 98.2 F 83 18 90/41 96 12/02/19 07:00 98.4 F 86 18 97/61 94 L 12/02/19 03:49 16 12/02/19 03:40 98.2 F 80 16 101/45 96 12/01/19 20:53 91 16 110/50 96 12/01/19 18:54 98.1 F 100 18 95/63 96 Intake and Output 12/02/19 12/02/19 12/02/19 06:59 14:59 22:59 Other: # Voids 0 2 # Bowel Movements 1 Weight 42.184 kg GENERAL DESCRIPTION: Elderly female lying in bed, no distress. No tachypnea or accessory muscle of respiration use. HEENT: Shows Pallor , no scleral icterus. Oral mucous membrane is dry. No pharyngeal erythema or thrush NECK: Trachea central, no thyromegaly. LUNGS: Unlabored breathing. Decreased this to the base. No wheeze or crackle. HEART: S1, S2, regular rate and rhythm. No loud murmur ABDOMEN: Soft, no tenderness , guarding or rigidity, no organomegaly EXTREMITIES: No edema of feet. SKIN: No rash, no masses palpable. NEUROLOGICAL: The patient is awake, alert, oriented x3, mood and affect normal. Results CBC & Chem 7: 12/01/19 19:26 12/01/19 19:26 Labs: Abnormal Lab Results - Last 24 Hours (Table) 12/01/19 12/01/19 12/01/19 Range/Units 19:26 19:26 19:26 RBC 2.92 L (3.80-5.40) m/uL Hgb 8.6 L (11.4-16.0) gm/dL Hct 27.6 L (34.0-46.0) % RDW 18.0 H (11.5-15.5) % Plt Count 118 L (150-450) k/uL Lymphocytes # 0.8 L (1.0-4.8) k/uL Eosinophils # 0.9 H (0-0.7) k/uL BUN 48 H (7-17) mg/dL Creatinine 3.44 H (0.52-1.04) mg/dL Glucose 102 H (74-99) mg/dL Plasma Lactic Acid Afshin 2.3 H* (0.7-2.0) mmol/L Total Protein 5.5 L (6.3-8.2) g/dL Albumin 3.2 L (3.5-5.0) g/dL Urine Appearance (Clear) Urine Protein (Negative) Urine Blood (Negative) Urine Nitrite (Negative) Ur Leukocyte Esterase (Negative) Urine RBC (0-5) /hpf Urine WBC (0-5) /hpf Urine WBC Clumps (None) /hpf Urine Bacteria (None) /hpf Urine Mucus (None) /hpf 12/02/19 Range/Units 08:53 RBC (3.80-5.40) m/uL Hgb (11.4-16.0) gm/dL Hct (34.0-46.0) % RDW (11.5-15.5) % Plt Count (150-450) k/uL Lymphocytes # (1.0-4.8) k/uL Eosinophils # (0-0.7) k/uL BUN (7-17) mg/dL Creatinine (0.52-1.04) mg/dL Glucose (74-99) mg/dL Plasma Lactic Acid Afshin (0.7-2.0) mmol/L Total Protein (6.3-8.2) g/dL Albumin (3.5-5.0) g/dL Urine Appearance Cloudy H (Clear) Urine Protein Trace H (Negative) Urine Blood Small H (Negative) Urine Nitrite Positive H (Negative) Ur Leukocyte Esterase Large H (Negative) Urine RBC 8 H (0-5) /hpf Urine WBC >182 H (0-5) /hpf Urine WBC Clumps Many H (None) /hpf Urine Bacteria Many H (None) /hpf Urine Mucus Rare H (None) /hpf Microbiology - Last 24 Hours (Table) 12/02/19 08:53 Urine Culture - Preliminary Urine,Voided Assessment and Plan Assessment: 1-patient presented to the hospital generalized weakness patient did have a cough and urinary symptoms this patient who did have a positive UA and evidence of right lower lobe pneumonia on chest x-ray with recent hospitalization. Call for the gram-negative the likely pathogen for her UTI as well as pneumonia 2-Patient with multiple antibiotic ALLERGIES that would limit the number of antibiotic safe to use (1) UTI (urinary tract infection) Current Visit: Yes Status: Acute Code(s): N39.0 - URINARY TRACT INFECTION, SITE NOT SPECIFIED SNOMED Code(s): 53053297 (2) Allergy to multiple antibiotics Current Visit: Yes Status: Acute Code(s): Z88.1 - ALLERGY STATUS TO OTHER ANTIBIOTIC AGENTS STATUS SNOMED Code(s): 348061510 (3) Pneumonia Current Visit: Yes Status: Acute Code(s): J18.9 - PNEUMONIA, UNSPECIFIED ORGANISM SNOMED Code(s): 234181838 Plan: 1-obtain sputum for grams and culture 2-discontinue Azactam 3-start the patient on Invanz 500 mg daily and should cover for both the pneumonia as well as a UTI We will follow on clinical condition and cultures to further adjust medication if needed Thank you for this consultation will follow this patient with you Time with Patient: Greater than 30
[2019-12-02] MEDS ORDERED: FAMOTIDINE 20 MG/2 ML VIAL IV SCH (21:00)
--- NOTE | 2019-12-02 21:50 | CONS ---
CONSULTATION REASON FOR CONSULT: Renal failure. HISTORY OF PRESENT ILLNESS: The patient is a 68-year-old female with history of chronic kidney disease NKF stage 4 secondary to interstitial nephropathy and multiple myeloma. The patient is a status post treatment for multiple myeloma as well as including a stem cell transplant about a year ago. Her serum creatinine has been around the high 2s to 3 mg/dL. She was admitted to the hospital with complaints of increasing cough. The patient felt feverish. She was extremely weak as well. Currently, she is being treated for pneumonia. Serum creatinine on admission was 3.4 mg/dL yesterday. We do not have any labs today and we have a creatinine of 2.8 on 11/17/2019. The patient stated that she had not been passing urine for more than a day prior to admission. Blood pressures have been on the lower side with systolic around 100-97 mmHg. No history of use of NSAIDs prior to admission. Currently patient is maintained on IV fluids at 75 mL an hour. PAST MEDICAL HISTORY: CKD, history of multiple myeloma status post stem cell transplant, atrial fibrillation, CHF, COPD, CVA, TIA, hypertension, history of rheumatoid arthritis, hyperlipidemia, chronic anemia, macular degeneration, chronic back pain, previous history of cerebrovascular accident with left leg weakness 2009. PAST SURGICAL HISTORY: Lumbar fusion, surgery for removal of cervix for cervical cancer, MediPort placement and removal, breast implants followed by removal. SOCIAL HISTORY: Negative for smoking, drug abuse or alcohol abuse. MEDICATIONS: Medications at home prior to admission included Zoloft, Calcitriol, acyclovir, vitamin D and calcium, Lopressor, sodium bicarb, Eliquis, Revlimid, potassium. ALLERGIES: INCLUDE PENICILLIN, CEPHALOSPORIN, SULFA, CODEINE, CIPRO. PHYSICAL EXAMINATION: Patient is currently comfortable, awake, not in any acute distress. She appears weak. Blood pressure is 97/61, heart rate 86 per minute. She is afebrile examination of the heart S1, S2. Examination of the lungs, bilateral breath sounds are heard. Decreased breath sounds at bases. Abdomen is soft, nontender. Examination of lower extremities shows no evidence of edema. ADMISSION LIAISON exam grossly intact. LAB: Show hemoglobin 8.6, white cell count 6.3, platelet count 118,000. Sodium 139, potassium 3.8, chloride 101, BUN 48, creatinine 3.4. Lactic acid 2.3 down to 0.7. UA shows nitrite positive, blood small, trace protein. WBCs more than 182. ASSESSMENT: 1. Acute kidney injury secondary to low blood pressure, hypovolemia, and pneumonia. Repeat labs today. Continue with IV fluids. 2. Pyuria rule out urinary tract infection. 3. Pneumonia with chest x-ray showing right lower lung infiltrate. 4. History of multiple myeloma status post stem cell transplant, currently maintained on Revlimid. 5. Anemia, multifactorial. 6. Chronic kidney disease stage 4 secondary to multiple myeloma, chronic interstitial nephropathy. Baseline creatinine about 2.8-3 mg/dL. 7. Lactic acidosis secondary to hypotension, sepsis, now improved. 8. CKD mineral bone disorder maintained on Rocaltrol. PLAN: Continue with IV fluids. Continue antibiotics. Repeat labs in a.m. Avoid nephrotoxic medications. MMODL / IJN: [id number] /
[2019-12-02] MEDS: LATANOPROST 0.005% OPHTH DROPS 2.5 ML BTL BOTH EYES SCH (21:51)
--- NOTE | 2019-12-03 00:10 | CONS ---
CONSULTATION PULMONARY/CRITICAL CARE CONSULTATION: DATE OF CONSULTATION: December 02, 2019 HISTORY OF PRESENT ILLNESS: This is a 68-year-old female who sees Dr. Villalobos as well as Dr. Larson. She apparently has a history of multiple myeloma and presents to the emergency department with chief complaint of "kidney pain". She was in the emergency department 1 week prior and was diagnosed having urinary tract infection and possible early pneumonia. She was started on azithromycin for the infection. She states that the dysuria that she was having had gradually improved but was still persistent. She does take chemotherapy for her multiple myeloma. The patient apparently has been drinking lots of water. In addition, the patient complains of some chills and night sweats as well as some difficulty breathing, cough, wheezing, and phlegm production. She was evaluated in the emergency room and a chest x-ray revealed a right lower lobe infiltrate and she was admitted with a diagnosis of pneumonia. MEDICATIONS: Reviewed. They were quite extensive and include Zoloft, calcitriol, acyclovir, Os-Miah, metoprolol, sodium bicarbonate tablets, eye drops, Eliquis, Revlimid, potassium chloride, Flexeril, Lomotil, DuoNeb, Symbicort, and Zithromax. ALLERGIES: Include PENICILLIN, CEPHALOSPORINS, CIPROFLOXACIN, CODEINE, AND SULFA ANTIBIOTICS. MEDICAL HISTORY: Reviewed. She has a history of atrial fibrillation, atrial flutter, multiple myeloma, heart failure, COPD, CVA, hyperlipidemia, hypertension, DJD, chronic kidney disease, rheumatoid arthritis, acute hypoxemic respiratory failure, pulmonary hypertension, stage 4 chronic kidney disease, chronic anemia, cervical cancer, glaucoma, macular degeneration, and chronic back and leg pain. SURGICAL HISTORY: Includes breast surgery, back surgery, lumbar fusion, breast implants, hysterectomy, and lung biopsy. SOCIAL HISTORY: Negative for tobacco or alcohol use. She denies illicit drug use. FAMILY HISTORY: Positive for a father with pneumonia. Just recently at age 100. Mother has a history of lung cancer. Mother was a smoker. REVIEW OF SYSTEMS: CONSTITUTIONAL weakness. NEUROLOGIC negative. HEENT negative. CARDIOVASCULAR negative. PULMONARY: Shortness of breath, cough, chest congestion, phlegm production, wheezing. GI decreased appetite. : Dysuria. RHEUMATOLOGIC negative. IMMUNOLOGIC negative. ENDOCRINOLOGIC negative. DERMATOLOGIC negative. PHYSICAL EXAMINATION: VITAL SIGNS: Current vital signs are reviewed. Temperature is 98.2, heart rate 83, respiratory rate 18, blood pressure 98/41, mean 57, room air saturation 96%. GENERAL: Appears in no acute distress. HEENT: Examination is grossly unremarkable. NECK: Supple. Full range of motion. No adenopathy. Neck veins are flat. CARDIOVASCULAR: Examination reveals regular rhythm and rate. Heart rate mid 80s. S1, S2 normal. Heart sounds distant. LUNGS: A few scattered rhonchi. No wheezes or crackles. Breath sounds equal. ABDOMEN: Soft. EXTREMITIES are intact. No edema. SKIN: Without rash. NEUROLOGIC: Examination is nonfocal. LABS: Reviewed. White count 6.3, hemoglobin 8.6, hematocrit 27.6, and platelet count 118,000, sodium, potassium chloride, CO2 all normal; anion gap is 11 BUN and creatinine were 48 and 3.44. Urine is cloudy and light yellow in color. Blood is small positive nitrite with positive, leukocyte esterase was large positive. WBCs were greater than 182, and there were many bacteria and many white blood cell clumps. This urine is consistent with a urinary tract infection. Microbiology is currently pending or negative. Chest x-ray shows a right lower lobe infiltrates. Medications are reviewed. ASSESSMENT: 1. Right lower lobe pneumonia. 2. Urinary tract infection/urosepsis. 3. History of atrial fibrillation/flutter. 4. History of heart failure. 5. History of chronic obstructive pulmonary disease. 6. History of cerebrovascular accident. 7. History of hyperlipidemia. 8. History of hypertension. 9. History of macular degeneration. 10.History of glaucoma. 11.Degenerative joint disease. 12.Stage 4 chronic kidney disease. 13.Rheumatoid arthritis. 14.History of multiple myeloma. 15.Valvular heart disease. 16.Pulmonary hypertension. 17.Multiple other medical problems and comorbidities. PLAN: The patient is currently on antibiotics in the form of aztreonam. This is probably not enough coverage for both her urinary tract infection and her pneumonia. I would recommend an ID consultation. The other medications seem appropriate. We will continue to follow. Prognosis is guarded. Clinically, she looks reasonably stable. MMODL / IJN: [id number] /
[2019-12-03] MEDS: SODIUM CHLORIDE 0.9% 1,000 ML IV SCH ×2 (01:56→13:07)
[2019-12-03 07:56] LABS: Anisocytosis Slight; Basophils % (A) 1 %; Eosinophils # (A) 0.6 k/uL (0-0.7); Eosinophils % (A) 23 %; HCT 25.1 % (34.0-46.0); HGB 7.8 gm/dL (11.4-16.0); Hypochromasia Marked; Lymphocytes # (A) 0.4 k/uL (1.0-4.8); Lymphocytes % (A) 13 %; MCH 30.7 pg (25.0-35.0); MCHC 31.1 g/dL (31.0-37.0); MCV 98.6 fL (80.0-100.0); Macrocytosis Slight; Mean Platelet Volume 9.1; Monocytes # (A) 0.2 k/uL (0-1.0); Monocytes % (A) 7 %; Neutrophils # (A) 1.5 k/uL (1.3-7.7); Neutrophils % (A) 54 %; RBC 2.54 m/uL (3.80-5.40); WBC 2.7 k/uL (3.8-10.6)
[2019-12-03 08:28] LABS: Poikilocytosis (M) Present; Target Cells Present
[2019-12-03 08:29] LABS: Platelet Count 98 k/uL (150-450)
[2019-12-03] MEDS: SYMBICORT 160-4.5 MCG INHALER INHALATION SCH ×2 (08:49→20:06)
[2019-12-03] MEDS ORDERED: LENALIDOMIDE 5 MG PO SCH (09:00)
[2019-12-03] MEDS: ERTAPENEM 0.5 GM in SODIUM CHLORIDE 0.9% 50 ML IVPB SCH (09:43)
[2019-12-03] MEDS: FAMOTIDINE 20 MG/2 ML VIAL IV SCH (09:43)
--- NOTE | 2019-12-03 09:57 | P.PN ---
Subjective This is a pleasant 68 years old female with past medical history of multiple myeloma kept on Revlimid, status post bone marrow transplantation with right lower lobe lung mass, splenomegaly, left nephrolithiasis and possible right nephrolithiasis, COPD, chronic kidney disease stage 3-4, she has bilateral pneumonia earlier this year. Also she has history of paroxysmal atrial fibrillation, chronic heart failure, all CVA, hypertension, hyperlipidemia, glaucoma, anxiety, chronic back pain. She is a patient of Dr. Villalobos and Dr. Larson and Dr. De Jesus. Presents because of urinary symptoms and so numerous coughing. Patient had chest tightness with coughing one week ago associated with inability to urinate very well, she came to emergency room and she was discharged home however she came getting worse over the week and she came yesterday didn't emergency room. She maxilla phlegm but no chest pain however she feels achy all over, she has little dyspnea with little dysuria and difficulty to urinate, she has right flank pain and right costovertebral angle tenderness. She denies history of smoking. Vitals are stable, blood pressure on low normal side 97/61. Labs including unremarkable CBC except for mild anemia of 8.6, elevated creatinine of 3.4, which is slightly above her baseline of 1.9-3.2. Elevated lactic acid 2.3 came back to normal at 0.7. Urinalysis is suspicious of infection Chest x-ray: No consolidation of the right lung base compared to old exam In the emergency room she received normal saline 1 L and started on aztreonam and continued with normal saline at 75 mL/h ID and nephrology team were consulted from ED 12/03/2019 She has significant coughing with yellow phlegm but no dyspnea even with exertion and no chest pain, Her right flank pain and back pain feeling better today, still have dysuria Vitals are stable. WBC is 2.7K, hemoglobin 7.8 and platelets are 90 8K. Lactic acid came back to normal 0.7. Urine and blood culture are pending IV temp is appreciated and change aztreonam to Invanz Review of Systems CONSTITUTIONAL: No fever, no malaise, no fatigue. HEENT: No recent visual problems or hearing problems. Denied any sore throat. CARDIOVASCULAR: No orthopnea, PND, no palpitations, no syncope. PULMONARY: no hemoptysis. No chest wall tenderness GASTROINTESTINAL: No diarrhea, no nausea, no vomiting, no abdominal pain. Normoactive bowel sounds. NEUROLOGICAL: No headaches, no weakness, no numbness. HEMATOLOGICAL: Denies any bleeding or petechiae. GENITOURINARY: Denies any burning micturition, frequency, or urgency. MUSCULOSKELETAL/RHEUMATOLOGICAL: Denies any joint pain, swelling, or any muscle pain. ENDOCRINE: Denies any polyuria or polydipsia. Active Medications Generic Name Dose Route Start Last Admin Trade Name Freq PRN Reason Stop Dose Admin Apixaban 2.5 mg 12/02/19 12:00 12/02/19 21:51 Apixaban 2.5 Mg Tablet PO 2.5 mg BID@1200,2100 OLIVE Administration Budesonide/Formoterol Fumarate 2 puff 12/02/19 20:00 12/03/19 08:49 Symbicort 160-4.5 Mcg Inhaler INHALATION 2 puff RT-BID OLIVE Administration Calcitriol 0.25 mcg 12/02/19 13:30 12/02/19 12:30 Calcitriol 0.25 Mcg Cap PO 0.25 mcg PC-LUNCH OLIVE Administration Calcium Carbonate 2 each 12/02/19 12:00 12/02/19 12:30 Calcium Carb-Vit D 500mg-200un 1 Each Tab PO 2 each DAILY@1200 OLIVE Administration Cyclobenzaprine HCl 10 mg 12/02/19 12:00 12/02/19 21:50 Cyclobenzaprine 10 Mg Tab PO 10 mg BID@1200,2100 OLIVE Administration Famotidine 20 mg 12/03/19 09:00 12/03/19 09:43 Famotidine 20 Mg/2 Ml Vial IV 20 mg Q24HR OLIVE Administration Guaifenesin/Dextromethorphan 10 ml 12/02/19 10:09 12/02/19 14:37 Guaifenesin-Dm 100-10mg/5ml 10 Ml Cup PO 10 ml Q8H PRN Administration Cough Sodium Chloride 1,000 mls @ 75 mls/hr 12/01/19 20:45 12/03/19 01:56 Saline 0.9% IV 75 mls/hr .[id number] OLIVE Administration Ertapenem 0.5 gm/ Sodium 50 mls @ 100 mls/hr 12/03/19 09:00 12/03/19 09:43 Chloride IVPB 100 mls/hr DAILY OLIVE Administration Protocol Latanoprost 1 drops 12/02/19 21:00 12/02/19 21:51 Latanoprost 0.005% Ophth Drops 2.5 Ml Btl BOTH EYES 1 drops HS OLIVE Administration Lorazepam 0.5 mg 12/01/19 20:41 Lorazepam 2 Mg/Ml Inj IV Q6HR PRN Anxiety Menthol 1 each 12/02/19 10:15 12/02/19 18:11 Menthol (Nice) Lozenge MUCOUS MEM 1 each Q2H PRN Administration Sore Throat Metoprolol Tartrate 12.5 mg 12/02/19 12:00 12/02/19 21:50 Metoprolol Tartrate 12.5 Mg Tab PO 12.5 mg BID@1200,2100 OLIVE Administration Naloxone HCl 0.2 mg 12/01/19 20:41 Naloxone 0.4 Mg/Ml 1 Ml Vial IV Q2M PRN Opioid Reversal Non-Formulary Medication 5 mg 12/03/19 09:00 Lenalidomide [Revlimid] PO Q48H OLIVE Ondansetron HCl 4 mg 12/01/19 21:31 Ondansetron 4 Mg/2 Ml Vial IVP ONCE PRN Nausea Potassium Chloride 20 meq 12/02/19 13:30 12/02/19 12:30 Potassium Chloride Er 20 Meq Tab.Er PO 20 meq PC-LUNCH OLIVE Administration Sertraline HCl 200 mg 12/02/19 13:30 12/02/19 12:30 Sertraline 100 Mg Tab PO 200 mg PC-LUNCH OLIVE Administration Objective - Vital Signs Vital signs: Vital Signs Temp 98.1 F 12/03/19 07:00 Pulse 86 12/03/19 07:00 Resp 20 12/03/19 07:00 BP 95/50 12/03/19 07:00 Pulse Ox 94 L 12/03/19 07:00 Intake & Output 12/02/19 12/03/19 12/03/19 18:59 06:59 18:59 Intake Total 100 Output Total 350 Balance -250 Intake: Oral 100 Output: Urine 350 Other: # Voids 2 0 # Bowel Movements 1 - Exam -GENERAL: The patient is alert and oriented x3, not in any acute distress. Thin built HEENT: Pupils are round and equally reacting to light. EOMI. No scleral icterus. No conjunctival pallor. Normocephalic, atraumatic. No pharyngeal erythema. No thyromegaly. CARDIOVASCULAR: S1 and S2 present. No murmurs, rubs, or gallops. PULMONARY: Chest is clear to auscultation, no wheezing or crackles. -ABDOMEN: Soft, right flank and right costovertebral angle tenderness with no rebound tenderness, nondistended, normoactive bowel sounds. No palpable organomegaly. MUSCULOSKELETAL: No joint swelling or deformity. EXTREMITIES: No cyanosis, clubbing, or pedal edema. NEUROLOGICAL: Gross neurological examination did not reveal any focal deficits. SKIN: No rashes. No petechiae - Labs CBC & Chem 7: 12/03/19 07:13 12/01/19 19:26 Labs: Abnormal Lab Results - Last 24 Hours (Table) 12/03/19 Range/Units 07:13 WBC 2.7 L (3.8-10.6) k/uL RBC 2.54 L (3.80-5.40) m/uL Hgb 7.8 L (11.4-16.0) gm/dL Hct 25.1 L (34.0-46.0) % RDW 18.0 H (11.5-15.5) % Plt Count 98 L (150-450) k/uL Lymphocytes # 0.4 L (1.0-4.8) k/uL Microbiology - Last 24 Hours (Table) 12/01/19 19:26 Blood Culture - Preliminary Blood No Growth after 24 hours 12/02/19 08:53 Urine Culture - Preliminary Urine,Voided Assessment and Plan Assessment: -Acute urinary tract infection in immunocompromised patient, with suspicion for right pyelonephritis -new consolidation on the right lung base, patient with history of right lower lobe lung mass, per PET scan -multiple myeloma kept on Revlimid, status post bone marrow transplantation with splenomegaly, left nephrolithiasis and possible right nephrolithiasis -Mild to moderate protein calorie malnutrition -Chronic kidney disease stage 3-4 -COPD -Paroxysmal atrial fibrillation -Chronic heart failure -Old CVA -Hypertension -Hyperlipidemia -Glaucoma -Chronic anxiety -Chronic back pain Plan: This is a pleasant 68 years old female who presents with UTI, and right lung consolidation. Continue with antibiotics per infectious disease team. Since sputum for culture. Continue with IV hydration. Cough medicine Follow-up recommendation by painting trades worker. Follow-up recommendation by extension specialist Labs and medication were reviewed.. Continue same treatment. Continue with symptomatic treatment. Resume home medication. Monitor lytes and vitals. DVT and GI prophylaxis. Further recommendations depends on the clinical course of the patient DVT prophylaxis: Eliquis GI Prophylaxis: Pepcid PT/OT: Pending Prognosis is guarded
[2019-12-03] MEDS: APIXABAN 2.5 MG TABLET PO SCH ×2 (11:43→20:15)
[2019-12-03] MEDS: CYCLOBENZAPRINE 10 MG TAB PO SCH ×2 (11:43→20:15)
[2019-12-03] MEDS: CALCIUM CARB-VIT D 500MG-200UN 1 EACH TAB PO SCH (11:43)
[2019-12-03] MEDS: METOPROLOL TARTRATE 12.5 MG TAB PO SCH ×2 (11:43→20:15)
[2019-12-03] MEDS: POTASSIUM CHLORIDE ER 20 MEQ TAB.ER PO SCH (12:58)
[2019-12-03] MEDS: guaiFENesin-DM 100-10MG/5ML 10 ML CUP PO PRN (12:58)
[2019-12-03] MEDS: MENTHOL (NICE) LOZENGE MUCOUS MEM PRN (12:58)
[2019-12-03] MEDS: SERTRALINE 100 MG TAB PO SCH (12:58)
[2019-12-03 13:01] LABS: African American GFR (CKD) 20.3 (60.0-200.0); Anion Gap 8.1 mmol/L (4.00-12.00); BUN/Creat Ratio 12.96 Ratio (12.00-20.00); Calcium 7.5 mg/dL (8.7-10.3); Carbon Dioxide 20.9 mmol/L (21.6-31.8); Non-African American GFR(CKD) 17.5 (60.0-200.0); Potassium 4.4 mmol/L (3.5-5.5)
[2019-12-03] MEDS: LENALIDOMIDE 5 MG PO SCH (14:24)
--- NOTE | 2019-12-03 14:53 | PN ---
PROGRESS NOTE Patient is seen for followup for acute kidney injury on top of chronic kidney disease. The patient's cough has improved. She is currently having a new IV placed. She is trying to increase her oral intake as well. No nausea, vomiting, abdominal pain. The patient has had improved urine output as well. PHYSICAL EXAMINATION: On examination today, blood pressure 102/56, heart rate 80 per minute, she is afebrile. Examination of the heart S1, S2. Examination of the lungs, bilateral breath sounds are heard. Abdomen is soft, nontender. Examination of the lower extremities shows no evidence of edema. ASSISTANT FRONT OFFICE MANAGER exam grossly intact. LABS: Show sodium of 142, potassium 4.4, serum creatinine 2.7 from 3.4 yesterday, BUN at 35. Hemoglobin 7.8 g/dL. Baseline creatinine 2.8-3 mg/dL. ASSESSMENT: 1. Acute kidney injury, prerenal and secondary to pneumonia, currently improved. I will decrease the IV fluids. 2. Chronic kidney disease, NKF stage IV secondary to multiple myeloma, chronic interstitial nephropathy. 3. Pneumonia with chest x-ray showing right lung infiltrate, maintained on antibiotics. 4. Pyuria with urine culture growing group D Enterococcus. PLAN: Decrease IV fluids. Encourage increased oral intake. Repeat labs in a.m. Avoid nephrotoxic agents. MMODL / IJN: [id number] /
--- NOTE | 2019-12-03 15:03 | P.PN ---
Subjective Progress Note Date: 12/03/19 Principal diagnosis: Flank pain, urinary tract infection, possible early pneumonia This is 68-year-old white female patient of Dr. Villalobos who was admitted to the hospital on 12/01/2019 when she presented to the emergency department for evaluation of flank pain, patient was diagnosed with the acute urinary tract infection, and possibility of early pneumonia, and patient was also having symptoms of increased shortness of breath, cough and wheezing and some phlegm production. Patient was started on broad-spectrum antibiotics. Also patient has history of multiple myeloma, and she does take chemotherapy for it. Her admission chest x-ray showed a new consolidation at the right lung base. Current antibiotic coverage includes ertapenem, ID service is following, urine culture showed group D enterococcus, final culture is pending, blood culture has shown no growth. She's had no fever or chills since admission, room air pulse ox is 94%, she is resting comfortably in bed, appears to be in no acute distress, breathing seems to be comfortable, he was dynamically stable, no hemoptysis, no chest pain. Her right flank pain has improved, his dyspnea has significantly improved. Objective - Vital Signs Vital signs: Vital Signs Temp 98.1 F 12/03/19 07:00 Pulse 80 12/03/19 11:44 Resp 20 12/03/19 07:00 BP 102/56 12/03/19 11:44 Pulse Ox 94 L 12/03/19 07:00 Intake & Output 12/02/19 12/03/19 12/03/19 18:59 06:59 18:59 Intake Total 100 775 Output Total 350 Balance -250 775 Intake: Intake, IV Titration 575 Amount Ertapenem 0.5 gm In 50 Sodium Chloride 0.9% 50 ml @ 100 mls/hr IVPB DAILY OLIVE Rx#:[id number] Sodium Chloride 0.9% 1, 525 000 ml @ 75 mls/hr IV . [id number] OLIVE Rx#:[id number] Oral 100 200 Output: Urine 350 Other: Voiding Method Toilet # Voids 2 0 # Bowel Movements 1 - Exam GENERAL EXAM: Alert, very pleasant, 68-year-old white female, on room air, with a pulse ox of 94% comfortable in no apparent distress. HEAD: Normocephalic/atraumatic. EYES: Normal reaction of pupils, equal size. Conjunctiva pink, sclera white. NOSE: Clear with pink turbinates. THROAT: No erythema or exudates. NECK: No masses, no JVD, no thyroid enlargement, no adenopathy. CHEST: No chest wall deformity. Symmetrical expansion. LUNGS: Equal air entry with no crackles, wheeze, rhonchi or dullness. CVS: Regular rate and rhythm, normal S1 and S2, no gallops, no murmurs, no rubs ABDOMEN: Soft, nontender. No hepatosplenomegaly, normal bowel sounds, no guarding or rigidity. EXTREMITIES: No clubbing, no edema, no cyanosis, 2+ pulses and upper and lower extremities. MUSCULOSKELETAL: Muscle strength and tone normal. SPINE: No scoliosis or deformity SKIN: No rashes CENTRAL NERVOUS SYSTEM: Alert and oriented -3. No focal deficits, tone is normal in all 4 extremities. PSYCHIATRIC: Alert and oriented -3. Appropriate affect. Intact judgment and insight. - Labs CBC & Chem 7: 12/03/19 07:13 12/03/19 07:13 Labs: Abnormal Lab Results - Last 24 Hours (Table) 12/03/19 12/03/19 Range/Units 07:13 07:13 WBC 2.7 L (3.8-10.6) k/uL RBC 2.54 L (3.80-5.40) m/uL Hgb 7.8 L (11.4-16.0) gm/dL Hct 25.1 L (34.0-46.0) % RDW 18.0 H (11.5-15.5) % Plt Count 98 L (150-450) k/uL Lymphocytes # 0.4 L (1.0-4.8) k/uL Chloride 113 H (96-109) mmol/L Carbon Dioxide 20.9 L (21.6-31.8) mmol/L BUN 35.0 H (9.0-27.0) mg/dL Creatinine 2.7 H (0.6-1.5) mg/dL Est GFR (CKD-EPI)AfAm 20.3 L (60.0-200.0) Est GFR (CKD-EPI)NonAf 17.5 L (60.0-200.0) Calcium 7.5 L (8.7-10.3) mg/dL Microbiology - Last 24 Hours (Table) 12/02/19 08:53 Urine Culture - Preliminary Urine,Voided Group D Enterococcus 12/01/19 19:26 Blood Culture - Preliminary Blood No Growth after 24 hours Assessment and Plan Plan: Assessment: #1. Acute right lower lobe pneumonia, community acquired #2. Acute urinary tract infection, with sepsis, with urine culture positive for group D enterococcus, currently on ertapenem #3. History of A. fib with flutter, on chronic anticoagulation in the form of Eliquis #4. History of CHF #5. History of chronic obstructive pulmonary disease #6. History of hypertension #7. History of hyperlipidemia #8. History of macular degeneration #9. History of glaucoma #10. Degenerative joint disease #12. Stage IV chronic kidney disease #13. Rheumatoid arthritis #14. History of multiple myeloma #15. Valvular heart disease #16. Pulmonary hypertension #17. Multiple other medical problems and comorbidities Plan: Continue current medical treatment, continue antibiotics, follow-up chest x-ray in the morning, clinically patient is doing better, no fever or chills, vital signs are stable, no altered mentation, urine culture showed group D enterococcus, ID service is following. I performed a history & physical examination of the patient and discussed their management with my nurse practitioner, Bere Alves. I reviewed the nurse practitioner's note and agree with the documented findings and plan of care. Lung sounds are positive for bibasilar crackles. The findings and the impression was discussed with the patient. I attest to the documentation by the nurse practitioner. Time with Patient: Less than 30
[2019-12-03 15:57] VITALS: BMI 16.0
[2019-12-03] MEDS: guaiFENesin-DM 100-10MG/5ML 10 ML CUP PO SCH (20:15)
[2019-12-03] MEDS: LATANOPROST 0.005% OPHTH DROPS 2.5 ML BTL BOTH EYES SCH (20:15)
[2019-12-04] MEDS: SODIUM CHLORIDE 0.9% 1,000 ML IV SCH ×2 (00:04→15:53)
--- NOTE | 2019-12-04 00:45 | PN ---
PROGRESS NOTE DATE OF SERVICE: 12/03/2019 REASON FOR FOLLOWUP: Urinary tract infection and pneumonia. INTERVAL HISTORY: Patient is currently afebrile. The patient is breathing more comfortably. Denies having any chest pain. Did have some cough but no sputum. No nausea. No vomiting. No abdominal pain. No diarrhea. PHYSICAL EXAMINATION: Blood pressure 97/46, pulse of 73, temperature 98.1. She is 93% on room air. General description is an elderly female lying in bed in no distress. Respiratory system: Unlabored breathing, clear to auscultation anteriorly. Heart S1, S2. Regular rate and rhythm. Abdomen soft, no tenderness. LABS: Hemoglobin 7.2, white count 2.7, BUN of 35, creatinine is 2.7. DIAGNOSTIC IMPRESSION AND PLAN: Patient admitted to the hospital with weakness. This patient did have a component of urinary tract infection and possible pneumonia. The patient has multiple antibiotic allergies currently covered with Invanz to continue and monitor clinical course closely. MMODL / IJN: [id number] /
[2019-12-04] MEDS: guaiFENesin-DM 100-10MG/5ML 10 ML CUP PO SCH ×3 (04:34→21:00)
[2019-12-04 07:16] LABS: Anisocytosis Slight; Basophils % (A) 0 %; Eosinophils % (A) 27 %; HCT 23.9 % (34.0-46.0); HGB 7.3 gm/dL (11.4-16.0); Hypochromasia Marked; Lymphocytes # (A) 0.5 k/uL (1.0-4.8); Lymphocytes % (A) 14 %; MCHC 30.7 g/dL (31.0-37.0); Macrocytosis Slight; Mean Platelet Volume 8.3; Monocytes # (A) 0.3 k/uL (0-1.0); Monocytes % (A) 8 %; Neutrophils # (A) 1.9 k/uL (1.3-7.7); Neutrophils % (A) 48 %; RBC 2.43 m/uL (3.80-5.40); RDW 18.1 % (11.5-15.5); WBC 3.9 k/uL (3.8-10.6)
[2019-12-04 07:26] LABS: Platelet Count 86 k/uL (150-450)
--- NOTE | 2019-12-04 07:26 | XR ---
EXAMINATION TYPE: XR chest 1V portable DATE OF EXAM: 12/04/2019 COMPARISON: 12/01/2019 HISTORY: Pain TECHNIQUE: Single frontal view of the chest is obtained. FINDINGS: There are numerous rib fractures are seen. Hyperinflation compatible with COPD and there i s improving right lower lobe infiltrate. Degenerative change of the spine is seen. Heart size normal. No overt failure. Linear densities overlying the right lung likely related to soft tissue artifact. IMPRESSION: 1. COPD with improving right lower lobe infiltrate.
[2019-12-04 08:13] LABS: Poikilocytosis (M) Present
[2019-12-04] MEDS: FAMOTIDINE 20 MG/2 ML VIAL IV SCH (08:39)
[2019-12-04] MEDS: ERTAPENEM 0.5 GM in SODIUM CHLORIDE 0.9% 50 ML IVPB SCH (09:38)
--- NOTE | 2019-12-04 09:38 | P.PN ---
Subjective This is a pleasant 68 years old female with past medical history of multiple myeloma kept on Revlimid, status post bone marrow transplantation with right lower lobe lung mass, splenomegaly, left nephrolithiasis and possible right nephrolithiasis, COPD, chronic kidney disease stage 3-4, she has bilateral pneumonia earlier this year. Also she has history of paroxysmal atrial fibrillation, chronic heart failure, all CVA, hypertension, hyperlipidemia, glaucoma, anxiety, chronic back pain. She is a patient of Dr. Villalobos and Dr. Larson and Dr. De Jesus. Presents because of urinary symptoms and so numerous coughing. Patient had chest tightness with coughing one week ago associated with inability to urinate very well, she came to emergency room and she was discharged home however she came getting worse over the week and she came yesterday didn't emergency room. She maxilla phlegm but no chest pain however she feels achy all over, she has little dyspnea with little dysuria and difficulty to urinate, she has right flank pain and right costovertebral angle tenderness. She denies history of smoking. Vitals are stable, blood pressure on low normal side 97/61. Labs including unremarkable CBC except for mild anemia of 8.6, elevated creatinine of 3.4, which is slightly above her baseline of 1.9-3.2. Elevated lactic acid 2.3 came back to normal at 0.7. Urinalysis is suspicious of infection Chest x-ray: No consolidation of the right lung base compared to old exam In the emergency room she received normal saline 1 L and started on aztreonam and continued with normal saline at 75 mL/h ID and nephrology team were consulted from ED 12/03/2019 She has significant coughing with yellow phlegm but no dyspnea even with exertion and no chest pain, Her right flank pain and back pain feeling better today, still have dysuria Vitals are stable. WBC is 2.7K, hemoglobin 7.8 and platelets are 90 8K. Lactic acid came back to normal 0.7. Urine and blood culture are pending IV temp is appreciated and change aztreonam to Invanz 12/04/2019 Patient is awake and alert, she is improving gradually, her cough is less severe, she denies pain in her side for specific urinary symptoms. Patient ambulatory with no difficulty. No diarrhea. Vitals are stable, blood pressure is low normal and patient is asymptomatic. WBC is normal 3.9K, hemoglobin slightly low at 7.3, platelet count is 86 which is slightly trending down. Urine culture is growing group D enterococcus. Chest x-ray showed COPD with improving right lower lobe infiltrate Patient to continue on Invanz. And normal saline lower to 50 mL per hour. Objective - Vital Signs Vital signs: Vital Signs Temp 97.7 F 12/04/19 07:00 Pulse 73 12/04/19 07:00 Resp 16 12/04/19 07:00 BP 96/42 12/04/19 07:00 Pulse Ox 97 12/04/19 07:00 Intake & Output 12/03/19 12/04/19 12/04/19 18:59 06:59 18:59 Intake Total 775 200 Balance 775 200 Weight 42.184 kg Intake: Intake, IV Titration 575 Amount Ertapenem 0.5 gm In 50 Sodium Chloride 0.9% 50 ml @ 100 mls/hr IVPB DAILY [facility] Rx#:[id number] Sodium Chloride 0.9% 1, 525 000 ml @ 75 mls/hr IV . [id number] [facility] Rx#:[id number] Oral 200 200 Other: Voiding Method Toilet Toilet # Voids 2 - Exam -GENERAL: The patient is alert and oriented x3, not in any acute distress. Thin built HEENT: Pupils are round and equally reacting to light. EOMI. No scleral icterus. No conjunctival pallor. Normocephalic, atraumatic. No pharyngeal erythema. No thyromegaly. CARDIOVASCULAR: S1 and S2 present. No murmurs, rubs, or gallops. PULMONARY: Chest is clear to auscultation, no wheezing or crackles. -ABDOMEN: Soft, right flank and right costovertebral angle tenderness with no rebound tenderness, nondistended, normoactive bowel sounds. No palpable organomegaly. MUSCULOSKELETAL: No joint swelling or deformity. EXTREMITIES: No cyanosis, clubbing, or pedal edema. NEUROLOGICAL: Gross neurological examination did not reveal any focal deficits. SKIN: No rashes. No petechiae - Labs CBC & Chem 7: 12/04/19 06:28 12/03/19 07:13 Labs: Abnormal Lab Results - Last 24 Hours (Table) 12/03/19 12/04/19 Range/Units 07:13 06:28 RBC 2.43 L (3.80-5.40) m/uL Hgb 7.3 L (11.4-16.0) gm/dL Hct 23.9 L (34.0-46.0) % MCHC 30.7 L (31.0-37.0) g/dL RDW 18.1 H (11.5-15.5) % Plt Count 86 L (150-450) k/uL Lymphocytes # 0.5 L (1.0-4.8) k/uL Eosinophils # 1.0 H (0-0.7) k/uL Chloride 113 H (96-109) mmol/L Carbon Dioxide 20.9 L (21.6-31.8) mmol/L BUN 35.0 H (9.0-27.0) mg/dL Creatinine 2.7 H (0.6-1.5) mg/dL Est GFR (CKD-EPI)AfAm 20.3 L (60.0-200.0) Est GFR (CKD-EPI)NonAf 17.5 L (60.0-200.0) Calcium 7.5 L (8.7-10.3) mg/dL Microbiology - Last 24 Hours (Table) 12/01/19 19:26 Blood Culture - Preliminary Blood No Growth after 48 hours 12/02/19 08:53 Urine Culture - Preliminary Urine,Voided Group D Enterococcus Assessment and Plan Assessment: -Acute urinary tract infection in immunocompromised patient, with suspicion for right pyelonephritis -new consolidation on the right lung base, suspicious for pneumonia, pulmonary service on the case -multiple myeloma kept on Revlimid, status post bone marrow transplantation with splenomegaly, left nephrolithiasis and possible right nephrolithiasis -Mild to moderate protein calorie malnutrition -Chronic kidney disease stage 3-4 -COPD -Paroxysmal atrial fibrillation -Chronic heart failure -Old CVA -Hypertension -Hyperlipidemia -Glaucoma -Chronic anxiety -Chronic back pain Plan: This is a pleasant 68 years old female who presents with UTI, and right lung consolidation. Continue with antibiotics per infectious disease team. Since sputum for culture. Continue with IV hydration. Cough medicine Follow-up recommendation by lime sludge kiln operator. Follow-up recommendation by venetian blind worker Labs and medication were reviewed.. Continue same treatment. Continue with symptomatic treatment. Resume home medication. Monitor lytes and vitals. DVT and GI prophylaxis. Further recommendations depends on the clinical course of the patient DVT prophylaxis: Eliquis GI Prophylaxis: Pepcid PT/OT: Pending Prognosis is guarded
[2019-12-04] MEDS: SYMBICORT 160-4.5 MCG INHALER INHALATION SCH ×2 (10:40→20:38)
[2019-12-04] MEDS: CYCLOBENZAPRINE 10 MG TAB PO SCH ×2 (12:45→21:00)
[2019-12-04] MEDS: POTASSIUM CHLORIDE ER 20 MEQ TAB.ER PO SCH (12:46)
[2019-12-04] MEDS: METOPROLOL TARTRATE 12.5 MG TAB PO SCH ×2 (12:46→20:49)
[2019-12-04] MEDS: CALCIUM CARB-VIT D 500MG-200UN 1 EACH TAB PO SCH (12:46)
[2019-12-04] MEDS: SERTRALINE 100 MG TAB PO SCH (12:46)
[2019-12-04] MEDS: APIXABAN 2.5 MG TABLET PO SCH ×2 (12:46→21:00)
[2019-12-04 13:14] LABS: African American GFR (CKD) 21.3 (60.0-200.0); Anion Gap 9.7 mmol/L (4.00-12.00); BUN/Creat Ratio 11.54 Ratio (12.00-20.00); Carbon Dioxide 18.3 mmol/L (21.6-31.8); Non-African American GFR(CKD) 18.3 (60.0-200.0); Potassium 3.9 mmol/L (3.5-5.5)
[2019-12-04 13:15] LABS: Calcium 7.3 mg/dL (8.7-10.3)
--- NOTE | 2019-12-04 15:16 | P.PN ---
Subjective Progress Note Date: 12/04/19 Principal diagnosis: Flank pain, urinary tract infection, possible early pneumonia This is 68-year-old white female patient of Dr. Villalobos who was admitted to the hospital on 12/01/2019 when she presented to the emergency department for evaluation of flank pain, patient was diagnosed with the acute urinary tract infection, and possibility of early pneumonia, and patient was also having symptoms of increased shortness of breath, cough and wheezing and some phlegm production. Patient was started on broad-spectrum antibiotics. Also patient has history of multiple myeloma, and she does take chemotherapy for it. Her admission chest x-ray showed a new consolidation at the right lung base. Current antibiotic coverage includes ertapenem, ID service is following, urine culture showed group D enterococcus, final culture is pending, blood culture has shown no growth. She's had no fever or chills since admission, room air pulse ox is 94%, she is resting comfortably in bed, appears to be in no acute distress, breathing seems to be comfortable, he was dynamically stable, no hemoptysis, no chest pain. Her right flank pain has improved, his dyspnea has significantly improved. On 12/04/2019 patient seen in follow-up on medical surgical floor. Patient is doing well, she is resting comfortably in bed, in no acute distress, today's chest x-ray was reviewed showing improvement in the appearance of a right lower lobe infiltrate. Minimal crackles on today's exam, no significant rhonchi or wheezing. Today's labs were reviewed, blood cell count of 7.9, hemoglobin is 7.3, sodium is 141, potassium is 3.9, chloride is 113, CO2 is 18, BUN is 30 creatinine is 2.6. Urinalysis showed evidence of infection, urine culture showed Enterococcus faecalis and Citrobacter youngae, current antibiotic coverage is with ertapenem. Patient does have a mild cough, no significant phlegm production Objective - Vital Signs Vital signs: Vital Signs Temp 97.7 F 12/04/19 07:00 Pulse 73 12/04/19 07:00 Resp 16 12/04/19 07:00 BP 96/42 12/04/19 07:00 Pulse Ox 97 12/04/19 07:00 Intake & Output 12/03/19 12/04/19 12/04/19 18:59 06:59 18:59 Intake Total 775 200 Balance 775 200 Weight 42.184 kg Intake: Intake, IV Titration 575 Amount Ertapenem 0.5 gm In 50 Sodium Chloride 0.9% 50 ml @ 100 mls/hr IVPB DAILY [facility] Rx#:[id number] Sodium Chloride 0.9% 1, 525 000 ml @ 50 mls/hr IV . Q20H [facility] Rx#:[id number] Oral 200 200 Other: Voiding Method Toilet Toilet # Voids 2 2 - Exam GENERAL EXAM: Alert, very pleasant, 68-year-old white female, on room air, with a pulse ox of 94% comfortable in no apparent distress. HEAD: Normocephalic/atraumatic. EYES: Normal reaction of pupils, equal size. Conjunctiva pink, sclera white. NOSE: Clear with pink turbinates. THROAT: No erythema or exudates. NECK: No masses, no JVD, no thyroid enlargement, no adenopathy. CHEST: No chest wall deformity. Symmetrical expansion. LUNGS: Equal air entry with no crackles, wheeze, rhonchi or dullness. CVS: Regular rate and rhythm, normal S1 and S2, no gallops, no murmurs, no rubs ABDOMEN: Soft, nontender. No hepatosplenomegaly, normal bowel sounds, no guarding or rigidity. EXTREMITIES: No clubbing, no edema, no cyanosis, 2+ pulses and upper and lower extremities. MUSCULOSKELETAL: Muscle strength and tone normal. SPINE: No scoliosis or deformity SKIN: No rashes CENTRAL NERVOUS SYSTEM: Alert and oriented -3. No focal deficits, tone is normal in all 4 extremities. PSYCHIATRIC: Alert and oriented -3. Appropriate affect. Intact judgment and insight. - Labs CBC & Chem 7: 12/04/19 06:28 12/04/19 06:28 Labs: Abnormal Lab Results - Last 24 Hours (Table) 12/04/19 12/04/19 Range/Units 06:28 06:28 RBC 2.43 L (3.80-5.40) m/uL Hgb 7.3 L (11.4-16.0) gm/dL Hct 23.9 L (34.0-46.0) % MCHC 30.7 L (31.0-37.0) g/dL RDW 18.1 H (11.5-15.5) % Plt Count 86 L (150-450) k/uL Lymphocytes # 0.5 L (1.0-4.8) k/uL Eosinophils # 1.0 H (0-0.7) k/uL Chloride 113 H (96-109) mmol/L Carbon Dioxide 18.3 L (21.6-31.8) mmol/L BUN 30.0 H (9.0-27.0) mg/dL Creatinine 2.6 H (0.6-1.5) mg/dL Est GFR (CKD-EPI)AfAm 21.3 L (60.0-200.0) Est GFR (CKD-EPI)NonAf 18.3 L (60.0-200.0) BUN/Creatinine Ratio 11.54 L (12.00-20.00) Ratio Calcium 7.3 L (8.7-10.3) mg/dL Microbiology - Last 24 Hours (Table) 12/02/19 08:53 Urine Culture - Final Urine,Voided Enterococcus faecalis Citrobacter youngae 12/01/19 19:26 Blood Culture - Preliminary Blood No Growth after 48 hours Assessment and Plan Plan: Assessment: #1. Acute right lower lobe pneumonia, community acquired #2. Acute urinary tract infection, with sepsis, with urine culture positive for Enterococcus faecalies and Citrobacter youngae #3. History of A. fib with flutter, on chronic anticoagulation in the form of Eliquis #4. History of CHF #5. History of chronic obstructive pulmonary disease #6. History of hypertension #7. History of hyperlipidemia #8. History of macular degeneration #9. History of glaucoma #10. Degenerative joint disease #12. Stage IV chronic kidney disease #13. Rheumatoid arthritis #14. History of multiple myeloma #15. Valvular heart disease #16. Pulmonary hypertension #17. Multiple other medical problems and comorbidities Plan: Continue per ID service recommendations, from pulmonary perspective patient is doing better, today's follow-up chest x-ray shows improvement in the appearance of right lower lobe pneumonia, encourage the patient to sit up in the chair, deep breathe and cough. Continue nebulized bronchodilators. GI and DVT prophylaxis. I performed a history & physical examination of the patient and discussed their management with my nurse practitioner, Bere Alves. I reviewed the nurse practitioner's note and agree with the documented findings and plan of care. Lung sounds are positive for bibasilar crackles. The findings and the impression was discussed with the patient. I attest to the documentation by the nurse practitioner. Time with Patient: Less than 30
--- NOTE | 2019-12-04 15:48 | PN ---
PROGRESS NOTE Patient is seen for followup for acute kidney injury on top of chronic kidney disease. Patient is feeling better. She has been maintained on IV fluids. She is tolerating oral intake. Her cough has improved as well. Renal function has improved, with creatinine down from 3.4 on admission to about 2.6 to 2.7 mg/dL. PHYSICAL EXAMINATION: On examination today, blood pressure is 103/58, heart rate 83 per minute. She is afebrile. EXAMINATION OF THE HEART: S1 and S2. EXAMINATION OF LUNGS: Decreased breath sounds at bases. ABDOMEN: Soft, non-tender. Examination of lower extremities shows no evidence of edema. AUDIOPROSTHOLOGIST exam is grossly intact. LABS: Labs show sodium of 141, potassium 3.9, chloride 113. CO2 is 18.3, BUN 30, serum creatinine 2.6 mg/dL. ASSESSMENT: 1. Chronic kidney disease, NKF stage 4, secondary to chronic interstitial nephropathy and multiple myeloma with baseline creatinine in the high 2s to 3 mg/dL. 2. Chronic obstructive pulmonary disease. 3. Urinary tract infection with urine culture growing group D Enterococcus. 4. Right lower lobe pneumonia, maintained on antibiotics. 5. Paroxysmal atrial fibrillation. 6. Mild non-gap metabolic acidosis. 7. Anemia, multifactorial. 8. Hypokalemia, maintained on supplementation. PLAN: Encourage increased oral intake. Decrease IV fluids. Continue antibiotics. Continue Rocaltrol for CKD mineral bone disorder. May continue with the Eliquis as well. Add Aranesp for the anemia of chronic disease. MMODL / IJN: [id number] /
[2019-12-04] MEDS ORDERED: DARBEPOETIN ALFA 60 MCG/0.3 ML SYRINGE SQ SCH (16:00)
[2019-12-04] MEDS: diphenhydrAMINE 25 MG CAP PO PRN (16:18)
[2019-12-04] MEDS: LATANOPROST 0.005% OPHTH DROPS 2.5 ML BTL BOTH EYES SCH (21:01)
[2019-12-05] MEDS ORDERED: NALOXONE 0.4 MG/ML 1 ML VIAL IV PRN (01:45)
[2019-12-05] MEDS ORDERED: ONDANSETRON 4 MG/2 ML VIAL IVP PRN (01:45)
--- NOTE | 2019-12-05 02:16 | PN ---
PROGRESS NOTE DATE OF SERVICE: 12/04/2019 REASON FOR FOLLOWUP: Urinary tract infection and pneumonia with multiple antibiotic allergies. INTERVAL HISTORY: The patient is currently afebrile. The patient is breathing comfortably. Did have a cough but not bringing up any sputum. No nausea. No vomiting. No abdominal pain. Still complaining of rash and significant itching started this morning. PHYSICAL EXAMINATION: Blood pressure 105/57, pulse of 78, temperature 97.9. She is 98% on room air. General description is an elderly female lying in bed in no distress. RESPIRATORY SYSTEM: Unlabored breathing, decreased breath sounds at the bases, no wheeze. HEART: S1, S2. Regular rate and rhythm. ABDOMEN: Soft, no tenderness. Skin examination did show generalized maculopapular rash. LABS: Hemoglobin 7.3, white count 3.9, BUN of 30, creatinine is 2.6. Urine has been finalized with Enterococcus faecalis and Citrobacter. DIAGNOSTIC IMPRESSION AND PLAN: Patient admitted to the hospital with urinary tract infection as well as pneumonia in this patient who did have multiple antibiotic allergies. She was started on Invanz, however, developing a rash. We will discontinue the Invanz, start the patient on daptomycin and Azactam to cover for these two pathogens. Repeat urine cultures. Continue supportive care. MMODL / IJN: [id number] /
[2019-12-05] MEDS: guaiFENesin-DM 100-10MG/5ML 10 ML CUP PO SCH ×3 (04:50→20:10)
[2019-12-05] MEDS: SYMBICORT 160-4.5 MCG INHALER INHALATION SCH ×2 (07:48→19:36)
[2019-12-05] MEDS: AZTREONAM 1 GM in SODIUM CHLORIDE 0.9% 50 ML IVPB SCH ×2 (08:04→20:09)
[2019-12-05] MEDS: FAMOTIDINE 20 MG/2 ML VIAL IV SCH (08:04)
[2019-12-05 08:17] LABS: Anisocytosis Slight; HCT 23.8 % (34.0-46.0); HGB 7.3 gm/dL (11.4-16.0); Hypochromasia Marked; MCH 30.2 pg (25.0-35.0); MCHC 30.6 g/dL (31.0-37.0); MCV 98.5 fL (80.0-100.0); Macrocytosis Slight; Mean Platelet Volume 8.7; RBC 2.42 m/uL (3.80-5.40); WBC 3.8 k/uL (3.8-10.6)
[2019-12-05 08:21] LABS: Platelet Count 73 k/uL (150-450)
[2019-12-05] MEDS ORDERED: DAPTOmycin 200 MG in SODIUM CHLORIDE 0.9% 50 ML IVPB SCH (09:00)
[2019-12-05 09:16] LABS: Basophils # (M) 0.04 k/uL (0-0.2); Eosinophils # (M) 1.14 k/uL (0-0.7); Lymphocytes # (M) 0.68 k/uL (1.0-4.8); Metamyelocytes # (M) 0.04 k/uL (0); Metamyelocytes % 1 %; Monocytes # (M) 0.23 k/uL (0-1.0); Neutrophils # (M) 1.75 k/uL (1.3-7.7); Neutrophils % (M) 46 %; Nucleated Red Blood Cells 0 /100 WBC (0-0); Poikilocytosis (M) Present; Total Cells Counted 200
[2019-12-05] MEDS: POTASSIUM CHLORIDE ER 20 MEQ TAB.ER PO SCH (11:55)
[2019-12-05] MEDS: CYCLOBENZAPRINE 10 MG TAB PO SCH ×2 (11:55→20:10)
[2019-12-05] MEDS: APIXABAN 2.5 MG TABLET PO SCH ×2 (11:55→20:10)
[2019-12-05] MEDS: METOPROLOL TARTRATE 12.5 MG TAB PO SCH ×2 (11:55→20:10)
[2019-12-05] MEDS: CALCIUM CARB-VIT D 500MG-200UN 1 EACH TAB PO SCH (11:56)
[2019-12-05] MEDS: SERTRALINE 100 MG TAB PO SCH (11:56)
[2019-12-05] MEDS: SODIUM CHLORIDE 0.9% 1,000 ML IV SCH (11:57)
[2019-12-05 12:22] LABS: African American GFR (CKD) 21.3 (60.0-200.0); Anion Gap 7.2 mmol/L (4.00-12.00); BUN/Creat Ratio 10.38 Ratio (12.00-20.00); Calcium 7.1 mg/dL (8.7-10.3); Carbon Dioxide 19.8 mmol/L (21.6-31.8); Non-African American GFR(CKD) 18.3 (60.0-200.0)
[2019-12-05 14:10] LABS: Appearance,Urine Clear (Clear); Bilirubin,Urine Negative (Negative); Blood,Urine Negative (Negative); Color,Urine Light Yellow; Glucose,Urine (UA) Negative (Negative); Ketones,Urine Negative (Negative); Leukocyte Esterase,Urine Negative (Negative); Nitrite,Urine Negative (Negative); PH, Urine 5.5 (5.0-8.0); Protein,Urine Trace (Negative); Specific Gravity,Urine 1.013 (1.001-1.035); Urobilinogen,Urine <2.0 mg/dL (<2.0)
[2019-12-05] MEDS: LENALIDOMIDE 5 MG PO SCH (14:24)
--- NOTE | 2019-12-05 14:48 | P.PN ---
Subjective Progress Note Date: 12/05/19 Principal diagnosis: Flank pain, urinary tract infection, possible early pneumonia This is 68-year-old white female patient of Dr. Villalobos who was admitted to the hospital on 12/01/2019 when she presented to the emergency department for evaluation of flank pain, patient was diagnosed with the acute urinary tract infection, and possibility of early pneumonia, and patient was also having symptoms of increased shortness of breath, cough and wheezing and some phlegm production. Patient was started on broad-spectrum antibiotics. Also patient has history of multiple myeloma, and she does take chemotherapy for it. Her admission chest x-ray showed a new consolidation at the right lung base. Current antibiotic coverage includes ertapenem, ID service is following, urine culture showed group D enterococcus, final culture is pending, blood culture has shown no growth. She's had no fever or chills since admission, room air pulse ox is 94%, she is resting comfortably in bed, appears to be in no acute distress, breathing seems to be comfortable, he was dynamically stable, no hemoptysis, no chest pain. Her right flank pain has improved, his dyspnea has significantly improved. On 12/04/2019 patient seen in follow-up on medical surgical floor. Patient is doing well, she is resting comfortably in bed, in no acute distress, today's chest x-ray was reviewed showing improvement in the appearance of a right lower lobe infiltrate. Minimal crackles on today's exam, no significant rhonchi or wheezing. Today's labs were reviewed, blood cell count of 7.9, hemoglobin is 7.3, sodium is 141, potassium is 3.9, chloride is 113, CO2 is 18, BUN is 30 creatinine is 2.6. Urinalysis showed evidence of infection, urine culture showed Enterococcus faecalis and Citrobacter youngae, current antibiotic coverage is with ertapenem. Patient does have a mild cough, no significant phlegm production On 12/05/2019 patient seen in follow-up on medical surgical floor, he is awake and alert, in no acute distress, she is on room air, with pulse ox of 96-90%, vital signs are stable, no acute events overnight, she's had no fever or chills, breathing is nonlabored. Still has some some cough, with no significant phlegm production. Sputum culture was sent, Gram stain showed many budding yeast with pseudo-mycelia, few gram-positive cocci in pairs and chains, rare gram-positive bacilli. Patient had enterococcus faecalis in the urine culture, and Citrobacter youngae, ID service is following, current coverages with Azactam and daptomycin. No cognitive chest pain, no hemoptysis. No nausea or vomiting, no abdominal pain or diarrhea Objective - Vital Signs Vital signs: Vital Signs Temp 97.9 F 12/05/19 07:00 Pulse 83 12/05/19 07:00 Resp 18 12/05/19 08:00 BP 104/49 12/05/19 07:00 Pulse Ox 96 12/05/19 07:00 Intake & Output 12/04/19 12/05/19 12/05/19 18:59 06:59 18:59 Intake Total 100 Balance 100 Intake: Oral 100 Other: Voiding Method Toilet Toilet # Voids 2 2 # Bowel Movements 1 - Exam GENERAL EXAM: Alert, very pleasant, 68-year-old white female, on room air, with a pulse ox of 94% comfortable in no apparent distress. HEAD: Normocephalic/atraumatic. EYES: Normal reaction of pupils, equal size. Conjunctiva pink, sclera white. NOSE: Clear with pink turbinates. THROAT: No erythema or exudates. NECK: No masses, no JVD, no thyroid enlargement, no adenopathy. CHEST: No chest wall deformity. Symmetrical expansion. LUNGS: Equal air entry with no crackles, wheeze, rhonchi or dullness. CVS: Regular rate and rhythm, normal S1 and S2, no gallops, no murmurs, no rubs ABDOMEN: Soft, nontender. No hepatosplenomegaly, normal bowel sounds, no guarding or rigidity. EXTREMITIES: No clubbing, no edema, no cyanosis, 2+ pulses and upper and lower extremities. MUSCULOSKELETAL: Muscle strength and tone normal. SPINE: No scoliosis or deformity SKIN: No rashes CENTRAL NERVOUS SYSTEM: Alert and oriented -3. No focal deficits, tone is normal in all 4 extremities. PSYCHIATRIC: Alert and oriented -3. Appropriate affect. Intact judgment and insight. - Labs CBC & Chem 7: 12/05/19 07:28 12/05/19 07:28 Labs: Abnormal Lab Results - Last 24 Hours (Table) 12/05/19 12/05/19 12/05/19 Range/Units 07:28 07:28 13:30 RBC 2.42 L (3.80-5.40) m/uL Hgb 7.3 L (11.4-16.0) gm/dL Hct 23.8 L (34.0-46.0) % MCHC 30.6 L (31.0-37.0) g/dL RDW 18.0 H (11.5-15.5) % Plt Count 73 L (150-450) k/uL Lymphocytes # (Manual) 0.68 L (1.0-4.8) k/uL Eosinophils # (Manual) 1.14 H (0-0.7) k/uL Metamyelocytes # (Man) 0.04 H (0) k/uL Chloride 115 H (96-109) mmol/L Carbon Dioxide 19.8 L (21.6-31.8) mmol/L Creatinine 2.6 H (0.6-1.5) mg/dL Est GFR (CKD-EPI)AfAm 21.3 L (60.0-200.0) Est GFR (CKD-EPI)NonAf 18.3 L (60.0-200.0) BUN/Creatinine Ratio 10.38 L (12.00-20.00) Ratio Calcium 7.1 L (8.7-10.3) mg/dL Urine Protein Trace H (Negative) Microbiology - Last 24 Hours (Table) 12/04/19 20:40 Gram Stain - Preliminary Sputum Sputum Culture - Preliminary 12/01/19 19:26 Blood Culture - Preliminary Blood No Growth after 72 hours 12/02/19 08:53 Urine Culture - Final Urine,Voided Enterococcus faecalis Citrobacter youngae Assessment and Plan Plan: Assessment: #1. Acute right lower lobe pneumonia, community acquired #2. Acute urinary tract infection, with sepsis, with urine culture positive for Enterococcus faecalies and Citrobacter youngae #3. History of A. fib with flutter, on chronic anticoagulation in the form of Eliquis #4. History of CHF #5. History of chronic obstructive pulmonary disease #6. History of hypertension #7. History of hyperlipidemia #8. History of macular degeneration #9. History of glaucoma #10. Degenerative joint disease #12. Stage IV chronic kidney disease #13. Rheumatoid arthritis #14. History of multiple myeloma #15. Valvular heart disease #16. Pulmonary hypertension #17. Multiple other medical problems and comorbidities Plan: Continue with antibiotic as per ID service recommendations, from pulmonary perspective patient is improving, no acute events overnight, no chest pain, no altered mentation, no significant wheezing, or congestion. Increase activity as tolerated. Follow-up chest x-ray tomorrow. Possible discharge home in the next 24-48 hours I performed a history & physical examination of the patient and discussed their management with my nurse practitioner, Bere Alves. I reviewed the nurse practitioner's note and agree with the documented findings and plan of care. Lung sounds are positive for bibasilar crackles. The findings and the im pression was discussed with the patient. I attest to the documentation by the nurse practitioner. Time with Patient: Less than 30
--- NOTE | 2019-12-05 17:09 | PN ---
PROGRESS NOTE Patient is seen for followup for acute kidney injury on top of chronic kidney disease. She is currently stable and states that she is feeling much better with improvement in cough. Oral intake is fair. PHYSICAL EXAMINATION: On examination, blood pressure was 104/49, heart rate 83 per minute. She is afebrile. EXAMINATION OF THE HEART: S1 and S2. EXAMINATION OF LUNGS: Bilateral breath sounds are heard. ABDOMEN: Soft, non-tender. Examination of lower extremities shows no significant edema. There is edema noted in the upper extremities bilaterally. JIG HAND exam is grossly intact. LABS: Labs show hemoglobin 7.3 sodium 142, potassium 4.0, BUN 27, serum creatinine 2.6. ASSESSMENT: 1. Chronic kidney disease secondary to multiple myeloma and chronic interstitial nephropathy, NKF stage 4. Renal function at baseline or slightly improved. 2. Acute kidney injury, prerenal, currently improved. 3. Chronic obstructive pulmonary disease. 4. Urinary tract infection. Urine culture growing group D Enterococcus. 5. Right lower lobe pneumonia, maintained on antibiotics and improving. 6. Paroxysmal atrial fibrillation. Rate is controlled. 7. Hypokalemia, status post supplementation. 8. Anemia, multifactorial, currently maintained on Aranesp. No active bleeding noted at this time. PLAN: Discontinue IV fluids. Encourage increased oral intake. Continue antibiotics. MMODL / IJN: [id number] /
[2019-12-05] MEDS: LATANOPROST 0.005% OPHTH DROPS 2.5 ML BTL BOTH EYES SCH (20:10)
--- NOTE | 2019-12-05 22:32 | P.PN ---
Progress Note - Text Progress Note Date: 12/05/19 Interval history: This is a very pleasant 68-year-old patient of Dr. Villalobos. Chronic stable me dical conditions include paroxysmal atrial flutter fibrillation, , CHF with an EF of 50-55%, tricuspid and mitral regurgitation, secondary pulmonary hypertension, chronic kidney disease stage IV, hypertension, hyperlipidemia,. Patient also being treated for multiple myeloma. on REVLIMID that she takes daily . Admitted with acute UTI with cystitis, pneumonia. Urine culture positive for the organisms below. Patient on IV aztreonam., IV daptomycin. Patient gently done of the rash with Invanz. Today-feeling better. Some cough is present. Little sputum. Up to the bathroom. Appetite improving. Sister is visiting Review of systems: Was done for constitutional, cardiovascular, GI, pulmonary. relevant finding as above Active Medications Apixaban (Apixaban 2.5 Mg Tablet) 2.5 mg PO BID@1200,2100 [facility] Last Admin: 12/05/19 20:10 Dose: 2.5 mg Documented by: Budesonide/Formoterol Fumarate (Symbicort 160-4.5 Mcg Inhaler) 2 puff INHALATION RT-BID [facility] Last Admin: 12/05/19 19:36 Dose: 2 puff Documented by: Calcitriol (Calcitriol 0.25 Mcg Cap) 0.25 mcg PO PC-LUNCH [facility] Last Admin: 12/05/19 11:56 Dose: 0.25 mcg Documented by: Calcium Carbonate (Calcium Carb-Vit D 500mg-200un 1 Each Tab) 2 each PO DAILY@1200 [facility] Last Admin: 12/05/19 11:56 Dose: 2 each Documented by: Cyclobenzaprine HCl (Cyclobenzaprine 10 Mg Tab) 10 mg PO BID@1200,2100 [facility] Last Admin: 12/05/19 20:10 Dose: 10 mg Documented by: Darbepoetin Jamel (Darbepoetin Jamel 60 Mcg/0.3 Ml Syringe) 60 mcg SQ Q7D [facility] Last Admin: 12/04/19 16:15 Dose: 60 mcg Documented by: Diphenhydramine HCl (Diphenhydramine 25 Mg Cap) 25 mg PO TID PRN PRN Reason: Itching Last Admin: 12/04/19 16:18 Dose: 25 mg Documented by: Famotidine (Famotidine 20 Mg/2 Ml Vial) 20 mg IV Q24HR [facility] Last Admin: 12/05/19 08:04 Dose: 20 mg Documented by: Guaifenesin/Dextromethorphan (Guaifenesin-Dm 100-10mg/5ml 10 Ml Cup) 10 ml PO Q8H [facility] Last Admin: 12/05/19 20:10 Dose: 10 ml Documented by: Aztreonam 1 gm/ Sodium (Chloride) 50 mls @ 16.67 mls/hr IVPB Q12HR [facility]; Protocol Last Admin: 12/05/19 20:09 Dose: 16.67 mls/hr Documented by: Daptomycin 200 mg/ Sodium (Chloride) 50 mls @ 100 mls/hr IVPB Q48H [facility]; Protocol Latanoprost (Latanoprost 0.005% Ophth Drops 2.5 Ml Btl) 1 drops BOTH EYES HS [facility] Last Admin: 12/05/19 20:10 Dose: Not Given Documented by: Lorazepam (Lorazepam 2 Mg/Ml Inj) 0.5 mg IV Q6HR PRN PRN Reason: Anxiety Menthol (Menthol (Nice) Lozenge) 1 each MUCOUS MEM Q2H PRN PRN Reason: Sore Throat Last Admin: 12/03/19 12:58 Dose: 1 each Documented by: Metoprolol Tartrate (Metoprolol Tartrate 12.5 Mg Tab) 12.5 mg PO BID@1200,2100 [facility] Last Admin: 12/05/19 20:10 Dose: 12.5 mg Documented by: Naloxone HCl (Naloxone 0.4 Mg/Ml 1 Ml Vial) 0.2 mg IV Q2M PRN PRN Reason: Opioid Reversal (Lenalidomide [ Revlimid] 5 Mg Capsule 5 mg PO Q48H [facility] Last Admin: 12/05/19 14:24 Dose: 5 mg Documented by: Ondansetron HCl (Ondansetron 4 Mg/2 Ml Vial) 4 mg IVP ONCE PRN PRN Reason: Nausea Potassium Chloride (Potassium Chloride Er 20 Meq Tab.Er) 20 meq PO PC-LUNCH [facility] Last Admin: 12/05/19 11:55 Dose: 20 meq Documented by: Sertraline HCl (Sertraline 100 Mg Tab) 200 mg PO PC-LUNCH [facility] Last Admin: 12/05/19 11:56 Dose: 200 mg Documented by: Physical examination: VITAL SIGNS: 97.8, 72, 16, 102/54, 100% on room air GENERAL: Laying in bed, comfortable EYES: [Pupils equal. Conjunctiva pale HEENT: External appearance of nose and ears normal, oral cavity grossly normal. NECK: JVD not raised; masses not palpable. HEART: First and second heart sounds are normal; no edema. LUNGS: Respiratory rate increased, decreased breath sounds , ABDOMEN: Soft, nontender, liver spleen not palpable, no masses palpable. PSYCH: [Alert and oriented x3; mood and affect normal. MUSCULOSKELETAL: Diffuse wasting of muscles Investigations, reviewed in the clinical context: White count 3.8 hemoglobin 7.3 platelets 73 potassium 4 creatinine 2.6 UA positive Urine culture positive for Enterococcus faecalis, Citrobacter Youngae Assessment: -Right lower lobe pneumonia, suspect gram-negative organism in an immunosuppressed patient, , POA, improving -Acute UTI with cystitis from Enterococcus faecalis and Citrobacter Youngae -jacobs/Bicytopenia due to multiple myeloma -Paroxysmal atrial flutter and fibrillation -Acute COPD exacerbation an ex-smoker, -Chronic congestive heart failure from systolic and diastolic dysfunction EF 50- 55% -Acute kidney injury possibly ATN-improved -Moderate tricuspid and severe mitral regurgitation, nontraumatic -Severe secondary pulmonary hypertension secondary to CHF and COPD -Multiple myeloma on chemotherapy -Chronic kidney disease secondary to multiple myeloma stage IV and chronic interstitial nephropathy -Essential hypertension -Hyperlipidemia -Severe protein calorie malnutrition due to poor oral intake -Chronic medical debility -Multiple old rib fractures due to multiple myeloma Plan: Continue current antibiotics. Hopefully can be discharged tomorrow as with antibiotics with Dr. Sánchez from ID. Discussed with the patient. Encouraged to be up in a chair.
[2019-12-06] MEDS: diphenhydrAMINE 25 MG CAP PO PRN
--- NOTE | 2019-12-06 03:52 | PN ---
PROGRESS NOTE DATE OF SERVICE: 12/05/2019 REASON FOR FOLLOWUP: Pneumonia and urinary tract infection with multiple antibiotic allergies. INTERVAL HISTORY: The patient is currently afebrile. Patient is breathing more comfortably. The patient denies having any chest pain. She did have a cough, not bringing up any sputum. No nausea, no vomiting. No abdominal pain or diarrhea. PHYSICAL EXAMINATION: On examination, her blood pressure is 102/54 with a pulse of 72, temperature 97.8. She is 100% on room air. General description is an elderly female lying in bed in no distress. RESPIRATORY SYSTEM: Unlabored breathing, clear to auscultation anteriorly. HEART: S1, S2. Regular rate and rhythm. ABDOMEN: Soft, no tenderness. LABS: Sputum cultures currently pending. DIAGNOSTIC IMPRESSION AND PLAN: Patient with urinary tract infection with urine showing Enterococcus and Citrobacter, also with a component of pneumonia. The patient did have multiple antibiotic allergies developing a rash possibly related to Invanz, which has been discontinued. Patient currently covered with Azactam and daptomycin to continue. We will repeat a chest x- ray, procalcitonin in the morning. Continue with daptomycin and the Azactam. Continue with supportive care. MMODL / IJN: [id number] /
[2019-12-06 04:01] VITALS: RESP 18
[2019-12-06] MEDS: guaiFENesin-DM 100-10MG/5ML 10 ML CUP PO SCH (05:38)
--- NOTE | 2019-12-06 07:24 | XR ---
EXAMINATION TYPE: XR chest 2V DATE OF EXAM: 12/06/2019 COMPARISON: 12/04/2019 HISTORY: Shortness of breath TECHNIQUE: Frontal and lateral views of the chest are obtained. FINDINGS: Scattered senescent parenchymal changes noted. Hyperinflation compatible with COPD. Increasing right lower lobe infiltrate. Continued follow-up is advised. Heart size is stable. Mediastinal structures are stable and grossly unremarkable. No evidence for hilar prominence. Degenerative changes dorsal spine. Multiple healed bilateral rib fractures are noted. IMPRESSION: 1. Increasing right lower lobe infiltrate. Continued follow-up is advised.
[2019-12-06] MEDS: AZTREONAM 1 GM in SODIUM CHLORIDE 0.9% 50 ML IVPB SCH (08:00)
[2019-12-06] MEDS: SYMBICORT 160-4.5 MCG INHALER INHALATION SCH (08:08)
[2019-12-06 08:14] LABS: Anisocytosis Slight; Basophils % (A) 0 %; Eosinophils # (A) 1.3 k/uL (0-0.7); Eosinophils % (A) 32 %; HCT 24.2 % (34.0-46.0); HGB 7.4 gm/dL (11.4-16.0); Hypochromasia Marked; Lymphocytes # (A) 0.7 k/uL (1.0-4.8); Lymphocytes % (A) 17 %; MCH 30.1 pg (25.0-35.0); MCHC 30.7 g/dL (31.0-37.0); MCV 98.1 fL (80.0-100.0); Macrocytosis Slight; Mean Platelet Volume 8.8; Monocytes # (A) 0.2 k/uL (0-1.0); Monocytes % (A) 6 %; Neutrophils # (A) 1.7 k/uL (1.3-7.7); Neutrophils % (A) 41 %; RBC 2.46 m/uL (3.80-5.40); RDW 17.9 % (11.5-15.5); WBC 4.1 k/uL (3.8-10.6)
[2019-12-06 08:16] LABS: Platelet Count 84 k/uL (150-450)
[2019-12-06] MEDS: FAMOTIDINE 20 MG/2 ML VIAL IV SCH (08:31)
[2019-12-06 10:05] LABS: Toxic Granulation Present
[2019-12-06] MEDS: APIXABAN 2.5 MG TABLET PO SCH (10:46)
[2019-12-06] MEDS: METOPROLOL TARTRATE 12.5 MG TAB PO SCH (10:46)
[2019-12-06] MEDS: CALCIUM CARB-VIT D 500MG-200UN 1 EACH TAB PO SCH (10:46)
[2019-12-06] MEDS: CYCLOBENZAPRINE 10 MG TAB PO SCH (10:46)
--- NOTE | 2019-12-06 13:59 | P.PN ---
Subjective Progress Note Date: 12/06/19 Principal diagnosis: Flank pain, urinary tract infection, possible early pneumonia This is 68-year-old white female patient of Dr. Villalobos who was admitted to the hospital on 12/01/2019 when she presented to the emergency department for evaluation of flank pain, patient was diagnosed with the acute urinary tract infection, and possibility of early pneumonia, and patient was also having symptoms of increased shortness of breath, cough and wheezing and some phlegm production. Patient was started on broad-spectrum antibiotics. Also patient has history of multiple myeloma, and she does take chemotherapy for it. Her admission chest x-ray showed a new consolidation at the right lung base. Current antibiotic coverage includes ertapenem, ID service is following, urine culture showed group D enterococcus, final culture is pending, blood culture has shown no growth. She's had no fever or chills since admission, room air pulse ox is 94%, she is resting comfortably in bed, appears to be in no acute distress, breathing seems to be comfortable, he was dynamically stable, no hemoptysis, no chest pain. Her right flank pain has improved, his dyspnea has significantly improved. On 12/04/2019 patient seen in follow-up on medical surgical floor. Patient is doing well, she is resting comfortably in bed, in no acute distress, today's chest x-ray was reviewed showing improvement in the appearance of a right lower lobe infiltrate. Minimal crackles on today's exam, no significant rhonchi or wheezing. Today's labs were reviewed, blood cell count of 7.9, hemoglobin is 7.3, sodium is 141, potassium is 3.9, chloride is 113, CO2 is 18, BUN is 30 creatinine is 2.6. Urinalysis showed evidence of infection, urine culture showed Enterococcus faecalis and Citrobacter youngae, current antibiotic coverage is with ertapenem. Patient does have a mild cough, no significant phlegm production On 12/05/2019 patient seen in follow-up on medical surgical floor, he is awake and alert, in no acute distress, she is on room air, with pulse ox of 96-90%, vital signs are stable, no acute events overnight, she's had no fever or chills, breathing is nonlabored. Still has some some cough, with no significant phlegm production. Sputum culture was sent, Gram stain showed many budding yeast with pseudo-mycelia, few gram-positive cocci in pairs and chains, rare gram-positive bacilli. Patient had enterococcus faecalis in the urine culture, and Citrobacter youngae, ID service is following, current coverages with Azactam and daptomycin. No cognitive chest pain, no hemoptysis. No nausea or vomiting, no abdominal pain or diarrhea On 12/06/2019 patient seen in follow-up on medical surgical floor, she is awake and alert, in no acute distress. She's had no fever or chills, breathing is comfortable, no chest pain, no cough or congestion, patient is currently on Azactam and daptomycin for Enterococcus faecalis and Citrobacter urinary tract infection, sputum culture just showed Nicolle albicans. Vital signs have been stable, she has had no acute events overnight, today's labs have been reviewed, showing white blood cell count of 4.1, hemoglobin is 7.4, pro calcitonin level is 0.37, CRP is 2.3, urinalysis showed no evidence of urinary tract infection, today's chest x-ray report reports increasing right lower lobe infiltrate however clinically patient is absolutely stable. Doing quite well. Objective - Vital Signs Vital signs: Vital Signs Temp 97.5 F L 12/06/19 07:00 Pulse 74 12/06/19 08:00 Resp 18 12/06/19 08:00 BP 95/55 12/06/19 07:00 Pulse Ox 99 12/06/19 07:00 Intake & Output 12/05/19 12/06/19 12/06/19 18:59 06:59 18:59 Intake Total 100 100 Balance 100 100 Weight 42.184 kg Intake: Oral 100 100 Other: Voiding Method Toilet Toilet Toilet # Voids 3 2 2 # Bowel Movements 1 2 - Exam GENERAL EXAM: Alert, very pleasant, 68-year-old white female, on room air, with a pulse ox of 99% comfortable in no apparent distress. HEAD: Normocephalic/atraumatic. EYES: Normal reaction of pupils, equal size. Conjunctiva pink, sclera white. NOSE: Clear with pink turbinates. THROAT: No erythema or exudates. NECK: No masses, no JVD, no thyroid enlargement, no adenopathy. CHEST: No chest wall deformity. Symmetrical expansion. LUNGS: Equal air entry with no crackles, wheeze, rhonchi or dullness. CVS: Regular rate and rhythm, normal S1 and S2, no gallops, no murmurs, no rubs ABDOMEN: Soft, nontender. No hepatosplenomegaly, normal bowel sounds, no guarding or rigidity. EXTREMITIES: No clubbing, no edema, no cyanosis, 2+ pulses and upper and lower extremities. MUSCULOSKELETAL: Muscle strength and tone normal. SPINE: No scoliosis or deformity SKIN: No rashes CENTRAL NERVOUS SYSTEM: Alert and oriented -3. No focal deficits, tone is normal in all 4 extremities. PSYCHIATRIC: Alert and oriented -3. Appropriate affect. Intact judgment and insight. - Labs CBC & Chem 7: 12/06/19 08:00 12/05/19 07:28 Labs: Abnormal Lab Results - Last 24 Hours (Table) 12/05/19 12/06/19 12/06/19 Range/Units 13:30 08:00 08:00 RBC 2.46 L (3.80-5.40) m/uL Hgb 7.4 L (11.4-16.0) gm/dL Hct 24.2 L (34.0-46.0) % MCHC 30.7 L (31.0-37.0) g/dL RDW 17.9 H (11.5-15.5) % Plt Count 84 L (150-450) k/uL Lymphocytes # 0.7 L (1.0-4.8) k/uL Eosinophils # 1.3 H (0-0.7) k/uL C-Reactive Protein (0.0-0.8) mg/dL Procalcitonin 0.37 H (0.02-0.09) ng/mL Urine Protein Trace H (Negative) 12/06/19 Range/Units 08:00 RBC (3.80-5.40) m/uL Hgb (11.4-16.0) gm/dL Hct (34.0-46.0) % MCHC (31.0-37.0) g/dL RDW (11.5-15.5) % Plt Count (150-450) k/uL Lymphocytes # (1.0-4.8) k/uL Eosinophils # (0-0.7) k/uL C-Reactive Protein 2.3 H (0.0-0.8) mg/dL Procalcitonin (0.02-0.09) ng/mL Urine Protein (Negative) Microbiology - Last 24 Hours (Table) 12/04/19 20:40 Gram Stain - Preliminary Sputum Sputum Culture - Preliminary Nicolle albicans 12/01/19 19:26 Blood Culture - Preliminary Blood No Growth after 96 hours Assessment and Plan Plan: Assessment: #1. Acute right lower lobe pneumonia, community acquired #2. Acute urinary tract infection, with sepsis, with urine culture positive for Enterococcus faecalies and Citrobacter youngae #3. History of A. fib with flutter, on chronic anticoagulation in the form of Eliquis #4. History of CHF #5. History of chronic obstructive pulmonary disease #6. History of hypertension #7. History of hyperlipidemia #8. History of macular degeneration #9. History of glaucoma #10. Degenerative joint disease #12. Stage IV chronic kidney disease #13. Rheumatoid arthritis #14. History of multiple myeloma #15. Valvular heart disease #16. Pulmonary hypertension #17. Multiple other medical problems and comorbidities Plan: Patient is doing well, vital signs are stable, room air pulse ox 90%, she's had no cough or congestion, no chest pain, no fever or chills, ID service is managing the antibiotics, today's chest x-ray has been reviewed with Dr. Hart, labs have been reviewed, no acute events overnight, from pulmonary perspective patient can be positive for discharge home today, with outpatient follow-up with Dr. Hart in the office in 7-10 days. I performed a history & physical examination of the patient and discussed their management with my nurse practitioner, Bere Alves. I reviewed the nurse practitioner's note and agree with the documented findings and plan of care. Lung sounds are positive for bibasilar crackles. The findings and the impression was discussed with the patient. I attest to the documentation by the nurse practitioner. Time with Patient: Less than 30
--- NOTE | 2019-12-06 14:10 | PN ---
PROGRESS NOTE Patient is seen for followup for CKD and acute kidney injury. Overall, patient is comfortable. She states she is feeling much better. Shortness of breath has improved. PHYSICAL EXAMINATION: On examination today, blood pressure 95/55, heart rate 74 per minute, she is afebrile. Examination of the heart S1, S2. Examination of the lungs, bilateral breath sounds are heard. Decreased breath sounds at bases, but particularly right side. [employer]MING TE[employer]ER exam grossly intact. No lower extremity edema noted. Abdomen is soft, nontender. LAB: Show sodium of 142, potassium 4.0. On 12/05/2019 creatinine was 2.6, hemoglobin 7.3 to 7.4 g/dL. ASSESSMENT: 1. Acute kidney injury secondary to pneumonia and mild volume depletion, currently improved. 2. Chronic kidney disease stage 4 secondary to multiple myeloma and chronic interstitial nephropathy, currently stable. 3. Chronic obstructive pulmonary disease. 4. Right lower lobe pneumonia maintained on antibiotics and improving. 5. Paroxysmal atrial fibrillation with controlled ventricular response. 6. Anemia multifactorial including anemia of chronic disease as well as multiple myeloma, maintained on Aranesp. 7. Urinary tract infection. Urine culture grew group D Enterococcus. PLAN: Continue antibiotics. Follow up as outpatient for CKD. MMODL / IJN: [id number] /
[2019-12-06] MEDS ORDERED: ERAVACYCLINE DI HYDROCHLORIDE IVPB STA (14:33)
[2019-12-06] MEDS ORDERED: SODIUM CHLORIDE 0.9% IVPB STA (14:33)
[2019-12-06 15:37] VITALS: BP 102/57; PULSE 72; TEMP 97.4
--- NOTE | 2019-12-06 19:17 | PN ---
PROGRESS NOTE DATE OF SERVICE: 12/06/2019 REASON FOR FOLLOWUP: 1. UTI. 2. Pneumonia with multiple antibiotic allergies. INTERVAL HISTORY: The patient is currently afebrile. The patient is breathing slightly comfortably. She did have a cough. No nausea, no vomiting. No abdominal pain, no diarrhea. PHYSICAL EXAMINATION: Blood pressure 102/57, pulse of 72, temperature 97.4, she is 92% on room air. General description is an elderly female up in the bed in no distress. Respiratory system: Unlabored breathing, decreased breath sounds at bases, no wheeze. Heart S1, S2. Regular rate and rhythm. Abdomen soft, no tenderness. LABS: Hemoglobin 7.4, white count 4.1, ( ) 0.37. CRP is 2.3. Repeat urine is negative. However, chest x-ray did show increased right lower lobe infiltrate. DIAGNOSTIC IMPRESSION AND PLAN: Patient with right lower lobe pneumonia and urinary tract infection in this patient who does have multiple antibiotic allergies. She has been switched over to Xerava 1.5 mg daily for another 10 days. She currently has a med line and close outpatient followup. MMODL / IJN: [id number] /
--- NOTE | 2019-12-06 23:15 | P.DS ---
Providers Date of admission: 12/01/19 20:27 Expected date of discharge: 12/06/19 Attending physician: Christopher Serrano Consults: 12/01/19 20:41 Consult Physician Stat Consulting Provider: Bette Cole Consult Reason/Comments: Pneumonia Do you want consulting provider notified?: Yes Consult Physician Stat Consulting Provider: Mehran Landaverde Consult Reason/Comments: Acute renal failure Do you want consulting provider notified?: Yes 12/02/19 11:05 Consult Physician Urgent Consulting Provider: Chriss Hart Consult Reason/Comments: right lung consolidation Do you want consulting provider notified?: Yes Primary care physician: [facility][1] Course: Interval history: This is a very pleasant 68-year-old patient of Dr. Villalobos. Chronic stable medical conditions include paroxysmal atrial flutter fibrillation, , CHF with an EF of 50-55%, tricuspid and mitral regurgitation, secondary pulmonary hypertension, chronic kidney disease stage IV, hypertension, hyperlipidemia,. Patient also being treated for multiple myeloma. on REVLIMID that she takes daily . Admitted with acute UTI with cystitis, pneumonia. Urine culture positive for the organisms below. Patient on IV aztreonam., IV daptomycin. Patient gently done of the rash with Invanz. Today-feeling better. Cough improved Little sputum. Up to the bathroom. Appetite better. Discussed with patient. Discussed with Dr. Hart team. Okay to [place]. Patient being discharged onXERAVA antibiotic per Dr. Sánchez. For 10 days. Discussion and discharge planning more than 35 minutes Consultation: Dr. Cole from ID Dr. Hart from pulmonary Dr. De Jesus from nephrology Physical examination: VITAL SIGNS: 97.4, 72, 18, 102/57, 100% on room air GENERAL: Sitting up, comfortable EYES: Pupils equal. Conjunctiva pale NECK: JVD not raised; masses not palpable. HEART: First and second heart sounds are normal; no edema. LUNGS: Respiratory rate normal, decreased breath sounds , ABDOMEN: Soft, nontender, liver spleen not palpable, no masses palpable. PSYCH: [Alert and oriented x3; mood and affect normal. MUSCULOSKELETAL: Diffuse wasting of muscles Investigations, reviewed in the clinical context: White count 4.1 hemoglobin 7.4 CRP 2.3 pro-calcitonin 0.37 White count 3.8 hemoglobin 7.3 platelets 73 potassium 4 creatinine 2.6 UA positive Urine culture positive for Enterococcus faecalis, Citrobacter Youngae Assessment: -Right lower lobe pneumonia, suspect gram-negative organism in an immunosuppressed patient, , POA, -Acute UTI with cystitis from Enterococcus faecalis and Citrobacter Youngae -jacobs/Bicytopenia due to multiple myeloma -Paroxysmal atrial flutter and fibrillation -Anemia multifactorial including that of chronic disease including multiple myeloma -Acute COPD exacerbation in a ex-smoker, -Chronic congestive heart failure from systolic and diastolic dysfunction EF 50- 55% -Acute kidney injury possibly ATN from pneumonia-improved Chronic kidney disease stage IV secondary to multiple myeloma and chronic interstitial nephropathy -Moderate tricuspid and severe mitral regurgitation, nontraumatic -Severe secondary pulmonary hypertension secondary to CHF and COPD -Multiple myeloma on chemotherapy -Chronic kidney disease secondary to multiple myeloma stage IV and chronic interstitial nephropathy -Essential hypertension -Hyperlipidemia -Severe protein calorie malnutrition due to poor oral intake -Chronic medical debility -Multiple old rib fractures due to multiple myeloma Disposition: Home Patient Condition at Discharge: Stable Plan - Discharge Summary Discharge Rx Participant: No New Discharge Prescriptions: New Eravacycline Di-Hydrochloride [Xerava] 65 mg IV. DAILY #10 vial Continue Sertraline [Zoloft] 200 mg PO PC-LUNCH calcitrioL [Calcitriol] 0.25 mcg PO PC-LUNCH Acyclovir 400 mg PO PC-LUNCH Calcium Carb-Vit D 500Mg-200Un [Oscal 500+D] 2 tab PO DAILY@1200 Metoprolol Tartrate [Lopressor] 12.5 mg PO BID@1200,2100 Sodium Bicarbonate Tab 1,300 mg PO DAILY@1200 Budesonide-Formot 160-4.5 Mcg [Symbicort 160-4.5 Mcg Inhaler] 2 puff INHALATION RT-BID #1 each Latanoprost [Xalatan 0.005%] 1 drop BOTH EYES HS Potassium Chloride [Klor-Con 20] 20 meq PO PC-LUNCH Lenalidomide [Revlimid] 5 mg PO Q48H Apixaban [Eliquis] 2.5 mg PO BID@1200,2100 Cyclobenzaprine [Flexeril] 10 mg PO BID@1200,2100 Ipratropium-Albuterol Nebulize [Duoneb 0.5 mg-3 mg/3 ml Soln] 3 ml INHALATION RT-BID@1200,2100 Sodium Bicarbonate Tab 650 mg PO HS Discharge Medication List Sertraline [Zoloft] 200 mg PO PC-LUNCH 01/28/17 [History] calcitrioL [Calcitriol] 0.25 mcg PO PC-LUNCH 10/23/17 [History] Acyclovir 400 mg PO PC-LUNCH 12/28/17 [History] Calcium Carb-Vit D 500Mg-200Un [Oscal 500+D] 2 tab PO DAILY@119908/15/18 [History] Metoprolol Tartrate [Lopressor] 12.5 mg PO BID@1199,209908/15/18 [History] Sodium Bicarbonate Tab 1,300 mg PO DAILY@119908/15/18 [History] Budesonide-Formot 160-4.5 Mcg [Symbicort 160-4.5 Mcg Inhaler] 2 puff INHALATION RT-BID #1 each 08/20/18 [Rx] Latanoprost [Xalatan 0.005%] 1 drop BOTH EYES HS 03/15/19 [History] Apixaban [Eliquis] 2.5 mg PO BID@1200,209905/03/19 [History] Lenalidomide [Revlimid] 5 mg PO Q48H 05/03/19 [History] Potassium Chloride [Klor-Con 20] 20 meq PO PC-LUNCH 05/03/19 [History] Cyclobenzaprine [Flexeril] 10 mg PO BID@1199,209911/17/19 [History] Ipratropium-Albuterol Nebulize [Duoneb 0.5 mg-3 mg/3 ml Soln] 3 ml INHALATION RT-BID@1199,209911/17/19 [History] Sodium Bicarbonate Tab 650 mg PO HS 12/01/19 [History] Eravacycline Di-Hydrochloride [Xerava] 65 mg IV. DAILY #10 vial 12/06/19 [Rx] Follow up Appointment(s)/Referral(s): Efren Larson MD [STAFF PHYSICIAN] - 12/11/19 1:45 pm Kirby Villalobos DO [Primary Care Provider] - 1-2 days (Office will call you with your appt date and time. Thank you.) Bette Cole MD [STAFF PHYSICIAN] - 2 Weeks Patient Instructions/Handouts: Viral Pneumonia (DC) Activity/Diet/Wound Care/Special Instructions: Report to [facility] (Dr. Cole's office) tomorrow 12/07/2019 @0945 a.m. for your antibiotic infusion - [address], [address], [facility] [address] cbc/bmp - 5 days Discharge Disposition: HOME SELF-CARE
[2019-12-07] MEDS ORDERED: DAPTOmycin 200 MG in SODIUM CHLORIDE 0.9% 50 ML IVPB SCH (09:00)
[2019-12-07] MEDS ORDERED: FAMOTIDINE 20 MG TAB PO SCH (09:00)
--- NOTE | 2019-12-07 22:47 | CDI ---
Documentation Clarification Form Date: 12/08/2019 From: Ezio Murphy Phone: If you have a question about this query, please contact Lucero Pemberton, Paint P[employer]rer at [phone] between 8am and 5pm. Admit Date: 12/01/2019 Discharge Date: 12/06/2019 Patient Name: Lucero Coleman Visit Number: [id number] ATTENTION: The Clinical Documentation Specialists (CDI) and [facility] Coding Staff appreciate your assistance in clarifying documentation. Please respond to the clarification below the line at the bottom and electronically sign. The CDI & [facility] Coding staff will review the response and follow-up if needed. Please note: Queries are made part of the Legal Health Record. If you have any questions, please contact the author of this message via ITS. Dear Christopher Bhatt MD., The patient presented with the Right lower lobe pneumonia, suspect gram-negative organism in an immunosuppressed patient, , POA, History/Risk Factors: CKD , Hypertension, Multiple myeloma, COPD WBC : 6.3 Lactic acid: YES Vitals signs on admission: 12/02/19 07:00 98.4 F 86 18 97/61 94 L Treatment:Antibiotics Per Dr. Chriss Hart MD notes "Acute urinary tract infection, with sepsis, with urine culture positive for Enterococcus faecalies and Citrobacter youngae". Per Ariella Beckman notes "Lactic acidosis secondary to hypotension, sepsis, now improved". Per DS note "Acute UTI with cystitis from Enterococcus faecalis and Citrobacter Youngae,Right lower lobe pneumonia, suspect gram-negative organism". In your professional opinion, please clarify if these findings signify one of the following conditions, Sepsis Ruled in Sepsis Ruled out Other, Please specify__ Unable to determine Sepsis, ruled in MTDD
== END 2019-12-06 18:01 | disposition home or self-care (01) | DRG 871 ==
LOC: EC 18:51 → 4SSUR 20:27
PROVIDERS: ADMIT Hospitalist; ATTEND Hospitalist
PROC: 05HB33Z Insertion of Infusion Device into Right Basilic Vein, Percutaneous Approach (ICD-10-PCS; principal; 2019-12-06 12:55)
DX: A41.59 Other Gram-negative sepsis (principal); J15.6 Pneumonia due to other Gram-negative bacteria; E43 Unspecified severe protein-calorie malnutrition; N17.0 Acute kidney failure with tubular necrosis; E87.2 Acidosis; I13.0 Hypertensive heart and chronic kidney disease with heart failure and stage 1 through stage 4 chronic kidney disease, or unspecified chronic kidney disease; I50.42 Chronic combined systolic (congestive) and diastolic (congestive) heart failure; J44.0 Chronic obstructive pulmonary disease with (acute) lower respiratory infection; J44.1 Chronic obstructive pulmonary disease with (acute) exacerbation; N18.4 Chronic kidney disease, stage 4 (severe); C90.00 Multiple myeloma not having achieved remission; Z94.81 Bone marrow transplant status; Z94.84 Stem cells transplant status; D61.818 Other pancytopenia; Z68.1 Body mass index [BMI] 19.9 or less, adult; E78.5 Hyperlipidemia, unspecified; E86.1 Hypovolemia; E87.6 Hypokalemia; I08.1 Rheumatic disorders of both mitral and tricuspid valves; G89.29 Other chronic pain; I27.29 Other secondary pulmonary hypertension; I48.0 Paroxysmal atrial fibrillation; M06.9 Rheumatoid arthritis, unspecified; M19.90 Unspecified osteoarthritis, unspecified site; N30.90 Cystitis, unspecified without hematuria; F41.9 Anxiety disorder, unspecified; H40.9 Unspecified glaucoma; M54.9 Dorsalgia, unspecified; R53.81 Other malaise; E83.89 Other disorders of mineral metabolism; H35.30 Unspecified macular degeneration; D63.1 Anemia in chronic kidney disease; B95.2 Enterococcus as the cause of diseases classified elsewhere; Z79.51 Long term (current) use of inhaled steroids; Z79.01 Long term (current) use of anticoagulants; Z88.1 Allergy status to other antibiotic agents; Z88.5 Allergy status to narcotic agent; Z88.0 Allergy status to penicillin; Z88.2 Allergy status to sulfonamides; Z90.710 Acquired absence of both cervix and uterus; Z87.891 Personal history of nicotine dependence; Z87.442 Personal history of urinary calculi; Z85.41 Personal history of malignant neoplasm of cervix uteri; Z98.1 Arthrodesis status; Z98.890 Other specified postprocedural states; Z98.82 Breast implant status; Z80.1 Family history of malignant neoplasm of trachea, bronchus and lung; Z83.6 Family history of other diseases of the respiratory system
CPT/HCPCS: 36410; 36415; 71045; 71046; 76937; 80048; 80053; 81001; 81003; 83605; 84145; 85025; 86140; 87040; 87070; 87077; 87086; 87186; 87205; 94640; 96361; 96365; 96375; 99284

== ENCOUNTER 2019-12-23 21:36 | Emergency (ER) | payer MEDICARE ==
[2019-12-23 21:48] VITALS: TEMP 97.9
[2019-12-23] MEDS ORDERED: ONDANSETRON 4 MG/2 ML VIAL IVP STA (22:23)
[2019-12-23] MEDS ORDERED: SODIUM CHLORIDE 0.9% 1,000 ML IV STA (22:23)
--- NOTE | 2019-12-23 22:56 | XR ---
EXAMINATION TYPE: XR chest 2V DATE OF EXAM: 12/23/2019 COMPARISON: December 06, 2019 HISTORY: Weakness cough TECHNIQUE: 2 views FINDINGS: There are multiple bilateral old rib fractures with osteosclerosis. There is some patchy in filtrate and atelectasis right lung base. There is blunting right costophrenic angle. There is slight blunting left costophrenic angle. There is no heart failure. There is flattening of the diaphragm. IMPRESSION: There is some airspace infiltrate and atelectasis and pleural fluid on the right side unc hanged. No heart failure seen. Small left pleural effusion unchanged. COPD.
[2019-12-23 23:04] LABS: Anisocytosis Moderate; Basophils % (A) 1 %; Eosinophils # (A) 0.3 k/uL (0-0.7); Eosinophils % (A) 9 %; HCT 29.3 % (34.0-46.0); Hypochromasia Marked; Lymphocytes # (A) 0.6 k/uL (1.0-4.8); Lymphocytes % (A) 20 %; MCH 32.9 pg (25.0-35.0); MCHC 31.6 g/dL (31.0-37.0); Macrocytosis Marked; Mean Platelet Volume 7.9; Monocytes # (A) 0.3 k/uL (0-1.0); Monocytes % (A) 10 %; Neutrophils # (A) 1.7 k/uL (1.3-7.7); Neutrophils % (A) 57 %; RBC 2.81 m/uL (3.80-5.40); RDW 20.4 % (11.5-15.5)
--- NOTE | 2019-12-23 23:12 | ED ---
Nausea/Vomiting/Diarrhea HPI - General Chief complaint: Nausea/Vomiting/Diarrhea Stated complaint: Vomiting, Weight Loss, Weakness Time Seen by Provider: 12/23/19 21:51 Source: patient Mode of arrival: wheelchair Limitations: no limitations - History of Present Illness Initial comments: Patient is a 69-year-old female, currently undergoing chemotherapy treatment for multiple myeloma, presenting to the emergency Department with complaints of nausea, vomiting, weight loss over the past 1-2 weeks. Patient states she was recently hospitalized and diagnosed with a UTI as well as pneumonia and was sent home on an antibiotic call Xerwest [place] for 10 days. She states that each day she was on this medication she had episodes of vomiting and diarrhea. Patient states she did complete the entire 10 day course, 3 days ago. Patient states she continues to be nauseous, vomit and have intermittent diarrhea. Patient states she has lost 10 pounds the last 2 weeks because of this. She has been able to drink a lot of water but has not had much of an appetite. She denies any fever, chills. She takes her oral chemotherapy pill every other day. She has some abdominal cramping, no severe specific areas of pain. She denies any urinary symptoms, she states she normally only goes about twice a day which has been her normal since undergoing cancer treatment. She states the chemotherapy has caused kidney damage. She denies any chest pain or shortness of breath, cough. She does have a history of COPD. She has no further complaints at this time. Upon arrival to the ER, her vital signs are stable. - Related Data Home Medications Medication Instructions Recorded Confirmed Sertraline [Zoloft] 200 mg PO PC-LUNCH 01/28/17 12/01/19 calcitrioL [Calcitriol] 0.25 mcg PO PC-LUNCH 10/23/17 12/01/19 Acyclovir 400 mg PO PC-LUNCH 12/28/17 12/01/19 Calcium Carb-Vit D 500Mg-200Un 2 tab PO DAILY@1200 08/15/18 12/01/19 [Oscal 500+D] Metoprolol Tartrate [Lopressor] 12.5 mg PO BID@1200,2100 08/15/18 12/01/19 Sodium Bicarbonate Tab 1,300 mg PO DAILY@1200 08/15/18 12/01/19 Latanoprost [Xalatan 0.005%] 1 drop BOTH EYES HS 03/15/19 12/01/19 Apixaban [Eliquis] 2.5 mg PO BID@1200,209905/03/19 12/01/19 Lenalidomide [Revlimid] 5 mg PO Q48H 05/03/19 12/01/19 Potassium Chloride [Klor-Con 20] 20 meq PO PC-LUNCH 05/03/19 12/01/19 Cyclobenzaprine [Flexeril] 10 mg PO BID@1200,209911/17/19 12/01/19 Ipratropium-Albuterol Nebulize 3 ml INHALATION RT-BID@1200,209911/17/19 12/01/19 [Duoneb 0.5 mg-3 mg/3 ml Soln] Sodium Bicarbonate Tab 650 mg PO HS 12/01/19 12/01/19 Previous Rx's Medication Instructions Recorded Budesonide-Formot 160-4.5 Mcg 2 puff INHALATION RT-BID #1 each 08/20/18 [Symbicort 160-4.5 Mcg Inhaler] Eravacycline Di-Hydrochloride 65 mg IV. DAILY #10 vial 12/06/19 [Xerava] Allergies Allergy/AdvReac Type Severity Reaction Status Date / Time Penicillins Allergy Unknown Unknown Verified 12/01/19 21:50 Cephalosporins Allergy Unknown Verified 12/01/19 21:50 ciprofloxacin HCl Allergy Lip Verified 12/01/19 21:50 [From Cipro] swelling, itching codeine Allergy Unknown Verified 12/01/19 21:50 Sulfa (Sulfonamide Allergy Unknown Verified 12/01/19 21:50 Antibiotics) Review of Systems ROS Statement: Those systems with pertinent positive or pertinent negative responses have been documented in the HPI. ROS Other: All systems not noted in ROS Statement are negative. Past Medical History Past Medical History: Atrial Fibrillation, Atrial Flutter, Cancer, Heart Failure, COPD, CVA/TIA, Eye Disorder, Hyperlipidemia, Hypertension, Osteoarthritis (OA), Pneumonia, Renal Disease, Rheumatoid Arthritis (RA) Additional Past Medical History / Comment(s): CHF exacerbation, aflutter/afib with RVR/acute hypoxic respiratory failure/vavluar disease, pulmonary htn; 04/2017 pt diagnosed with multiple myeloma/bone cancer/CRD stage IV d/t myeloma per pt and currently receiving chemotherapy pill for maintance, bicytopenia 2ndary to chemo, last dose of chemo 11/30. 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 Past Anesthesia/Blood Transfusion Reactions: No Reported Reaction Additional Past Anesthesia/Blood Transfusion Reaction / Comment(s): Pt has received blood in past, on 10/2017 developed rash and was tx with steroids. Pt had blood tranfusion after with no recactions. Past Psychological History: Anxiety Smoking Status: Never smoker Past Alcohol Use History: None Reported Past Drug Use History: None Reported - Past Family History Father Family Medical History: Pneumonia Additional Family Medical History / Comment(s): FATHER RECENTLY FROM PNEUMONIA. HE WAS 100 YRS OLD. Mother Family Medical History: Cancer Additional Family Medical History / Comment(s): LUNG CANCER. MOTHER WAS A SMOKER. General Exam - General Exam Comments Initial Comments: GENERAL: Patient is well-developed and well-nourished. Patient is nontoxic and in no acute distress. HEAD: Atraumatic, normocephalic. EYES: Pupils equal round and reactive to light, extraocular movements intact, sclera anicteric, conjunctiva are normal. Eyelids were unremarkable. ENT: TMs normal, nares patent, oropharynx clear without exudates. Dry mucous membranes. NECK: Normal range of motion, supple without lymphadenopathy or JVD. LUNGS: Unlabored respirations. Breath sounds clear to auscultation bilaterally and equal. No wheezes rales or rhonchi. HEART: Regular rate and rhythm without murmurs, rubs or gallops. ABDOMEN: Soft, nontender, normoactive bowel sounds. No guarding, no rebound. No masses appreciated. : Deferred MUSCULOSKELETAL: Normal extremities with adequate strength and normal range of motion. Mild bilateral ankle edema. No clubbing or cyanosis. NEUROLOGICAL: Patient is alert and oriented x 3. Motor and sensory are also intact. Cranial nerves II through XII grossly intact. Symmetrical smile. Normal speech, normal gait. PSYCH: Normal mood, normal affect. SKIN: Warm, Dry, decreased turgor, no rashes or lesions noted. Limitations: no limitations Course Vital Signs 12/23/19 12/23/19 12/24/19 21:41 23:06 01:43 Temperature 97.9 F Pulse Rate 69 69 70 Respiratory 16 20 18 Rate Blood Pressure 131/65 119/42 121/67 O2 Sat by Pulse 97 100 98 Oximetry Medical Decision Making - Medical Decision Making Patient is 69-year-old female currently being treated for multiple melanoma pr esenting with nausea, vomiting, diarrhea and weight loss for the past 10 days. She just finished a 10 day course of Xerava. Her vital signs are stable upon arrival. He does appears very dry, dry mucous membranes. She does have some mild bilateral ankle edema. Labs reveal a 3.0 white count which has been stable, hemoglobin is elevated at 9.3 from baseline of 7.4, 2 weeks ago. Potassium is 5.3, BUN and creatinine is stable at 22, 2.85. Lactic acid is normal at 1.3. Given fluids and Zofran. Chest x-ray reveals some mild atelectasis and pleural effusion on the right side it is unchanged, small left pleural effusion is also unchanged, no acute process. She has been resting comfortably in the ER, no vomiting, no diarrhea. I was trying to obtain a urinalysis however patient has been unable to urinate in the ER. She states she only urinates about twice a day. Patient states she is feeling better after the fluids. We did discuss option of being admitted to continue with hydration or being discharged home. Patient states she does not want to stay in the hospital and wishes to go home. She will continue to increase his fluid intake and will follow up with her oncologist. Patient is stable for discharge. She is in agreement with this plan of care. Strict return parameters were discussed with the patient and she verbalized understanding. I will send her home with a Zofra n starter pack. Case discussed with Dr. Blackwood. - Lab Data Result diagrams: 12/23/19 22:49 12/23/19 22:49 Lab Results 12/23/19 12/23/19 12/23/19 Range/Units 22:49 22:49 22:49 WBC 3.0 L (3.8-10.6) k/uL RBC 2.81 L (3.80-5.40) m/uL Hgb 9.3 L D (11.4-16.0) gm/dL Hct 29.3 L (34.0-46.0) % MCV 104.3 H D (80.0-100.0) fL MCH 32.9 (25.0-35.0) pg MCHC 31.6 (31.0-37.0) g/dL RDW 20.4 H (11.5-15.5) % Plt Count 138 L D (150-450) k/uL Neutrophils % 57 % Lymphocytes % 20 % Monocytes % 10 % Eosinophils % 9 % Basophils % 1 % Neutrophils # 1.7 (1.3-7.7) k/uL Lymphocytes # 0.6 L (1.0-4.8) k/uL Monocytes # 0.3 (0-1.0) k/uL Eosinophils # 0.3 (0-0.7) k/uL Basophils # 0.0 (0-0.2) k/uL Manual Slide Review Performed Large Platelets Present Hypochromasia Marked Anisocytosis Moderate Macrocytosis Marked A Sodium 144 (137-145) mmol/L Potassium 5.3 H (3.5-5.1) mmol/L Chloride 114 H (98-107) mmol/L Carbon Dioxide 25 (22-30) mmol/L Anion Gap 5 mmol/L BUN 22 H (7-17) mg/dL Creatinine 2.85 H (0.52-1.04) mg/dL Est GFR (CKD-EPI)AfAm 19 (>60 ml/min/1.73 sqM) Est GFR (CKD-EPI)NonAf 16 (>60 ml/min/1.73 sqM) Glucose 119 H (74-99) mg/dL Plasma Lactic Acid Afshin 1.3 (0.7-2.0) mmol/L Calcium 7.9 L (8.4-10.2) mg/dL Magnesium 2.1 (1.6-2.3) mg/dL Total Bilirubin 0.4 (0.2-1.3) mg/dL AST 24 (14-36) U/L ALT 14 (4-34) U/L Alkaline Phosphatase 109 (38-126) U/L Total Protein 5.5 L (6.3-8.2) g/dL Albumin 3.1 L (3.5-5.0) g/dL Disposition Clinical Impression: Nausea vomiting and diarrhea, Dehydration Disposition: HOME SELF-CARE Condition: Stable Instructions (If sedation given, give patient instructions): Dehydration (ED) Additional Instructions: Please return to the Emergency Department if symptoms worsen or any other concerns. Lab work today reveals dehydration. May take Zofran for additional nausea. Continue to increase fluid and food intake. Follow-up with oncologist. Is patient prescribed a controlled substance at d/c from ED?: No Referrals: Kirby Villalobos DO [Primary Care Provider] - 1-2 days Efren Larson MD [STAFF PHYSICIAN] - 1-2 days
[2019-12-23 23:20] LABS: HGB 9.3 gm/dL (11.4-16.0); MCV 104.3 fL (80.0-100.0); Platelet Count 138 k/uL (150-450)
[2019-12-23 23:26] LABS: Albumin 3.1 g/dL (3.5-5.0); Calcium 7.9 mg/dL (8.4-10.2); Magnesium 2.1 mg/dL (1.6-2.3); Potassium 5.3 mmol/L (3.5-5.1); Total Bilirubin 0.4 mg/dL (0.2-1.3); Total Protein 5.5 g/dL (6.3-8.2)
[2019-12-23] MEDS ORDERED: SODIUM CHLORIDE 0.9% 800 ML IV STA (23:32)
[2019-12-24 00:21] LABS: Large Platelets Present
[2019-12-24] MEDS ORDERED: ONDANSETRON 4 MG ODT STARTER PACK 2 TAB BTL PO STA (01:00)
[2019-12-24 01:43] VITALS: BP 121/67; PULSE 70; RESP 18
== END 2019-12-24 01:43 | disposition home or self-care (01) ==
LOC: EC 21:36
DX: E86.0 Dehydration (principal); R11.2 Nausea with vomiting, unspecified; R19.7 Diarrhea, unspecified; J98.11 Atelectasis; J90 Pleural effusion, not elsewhere classified; F41.9 Anxiety disorder, unspecified; I48.91 Unspecified atrial fibrillation; I48.92 Unspecified atrial flutter; I13.0 Hypertensive heart and chronic kidney disease with heart failure and stage 1 through stage 4 chronic kidney disease, or unspecified chronic kidney disease; N18.4 Chronic kidney disease, stage 4 (severe); I50.9 Heart failure, unspecified; E78.5 Hyperlipidemia, unspecified; J44.9 Chronic obstructive pulmonary disease, unspecified; M06.9 Rheumatoid arthritis, unspecified; Z79.01 Long term (current) use of anticoagulants; Z79.899 Other long term (current) drug therapy; Z88.0 Allergy status to penicillin; Z88.1 Allergy status to other antibiotic agents; Z88.2 Allergy status to sulfonamides; Z88.5 Allergy status to narcotic agent; Z86.73 Personal history of transient ischemic attack (TIA), and cerebral infarction without residual deficits; Z85.830 Personal history of malignant neoplasm of bone; Z85.79 Personal history of other malignant neoplasms of lymphoid, hematopoietic and related tissues; Z98.1 Arthrodesis status
CPT/HCPCS: 80053; 83605; 83735; 85025; 71046; 99285; 96374; 96361 ×2; J2405

== ENCOUNTER → 2020-01-10 | Outpatient (CLI) | payer MEDICARE ==
--- NOTE | 2020-01-12 21:30 | CT ---
EXAMINATION TYPE: CT chest wo con DATE OF EXAM: 01/10/2020 COMPARISON: PET/CT 04/19/2019, CT chest 07/23/2019, CT chest 09/30/2019. CT abdomen pelvis 11/17/2019. HISTORY: Lung cancer. History of multiple myeloma. CT DLP: 208 mGycm Automated exposure control for dose reduction was used. CONTRAST: CT scan of the chest is performed without intravenous contrast. FINDINGS: LUNGS: The right upper lobe spiculated pulmonary lung mass measures 1.6 x 1.8 cm (4:28), mildly decre ased in size versus 09/30/2019 and 07/23/2019 CT comparison when it measured 2.0 x 2.0 cm and 2.3 x 2.4 cm respectively. There are multilobar tree-in-bud opacities of the bilateral lung bases, and decreas ed size of confluent consolidative opacity of the right lower lobe measuring up to approximately 5.5 x 3.2 cm. There is new trace right pleural effusion. Upper lobe emphysematous changes redemonstrated. No pneumothorax. The tracheobronchial tree is patent. MEDIASTINUM/SOFT TISSUES: Left axillary lymph node measuring up to 8 x 9 mm (3:13) is mildly increase d in size, measuring 5 x 6 mm mildly decreased size of right lower lobe on 07/23/2019 comparison. No h ilar or mediastinal lymphadenopathy greater than 1 cm. Cardiac size is normal. No pericardial effusio n. Calcified coronary artery disease and calcified atherosclerotic disease. No thoracic aortic aneury sm. UPPER ABDOMEN: Redemonstrated 9 mm calcification of the left kidney. OSSEOUS: Multiple redemonstrated sclerotic foci and healing rib fractures. Sclerotic focus of the xip hoid redemonstrated. Incompletely visualized left L3 transverse process sclerotic fracture deformity. Lytic lesions of L3 redemonstrated. IMPRESSION: 1. Mildly decreased size of dominant spiculated right upper lobe pulmonary mass versus 07/23/2019 and 09/30/2019 CT comparisons. Satellite lesions appears similar. 2. Multilobar tree-in-bud opacities of the bilateral lung bases and decreased size of the consolidati ve opacity of the right lower lobe versus 11/17/2019. 3. Increased size of 9 mm left axillary lymph node, previously 6 mm on 07/23/2019 comparison. Findings may be reactive or metastatic. Attention on follow-up imaging.
== END | disposition home or self-care (01) ==
LOC: RADCTMAIN 11:01
PROVIDERS: ATTEND Radiology Radiation Oncology
DX: J98.4 Other disorders of lung (principal); R91.8 Other nonspecific abnormal finding of lung field; R59.0 Localized enlarged lymph nodes; C34.11 Malignant neoplasm of upper lobe, right bronchus or lung; Z87.891 Personal history of nicotine dependence
CPT/HCPCS: 71250

== ENCOUNTER 2020-03-08 03:53 | Inpatient (IN) | payer MEDICARE ==
[2020-03-08] MEDS ORDERED: DILTIAZEM DRIP BOLUS FROM BAG 1 MG SOLN IV ONE (04:22)
[2020-03-08] MEDS ORDERED: DILTIAZEM 125 MG in SODIUM CHLORIDE 0.9% 100 ML IV SCH (04:30)
[2020-03-08 04:33] LABS: Anisocytosis Slight; Basophils % (A) 0 %; Eosinophils % (A) 0 %; HCT 26.1 % (34.0-46.0); HGB 8.1 gm/dL (11.4-16.0); Hypochromasia Marked; Lymphocytes # (A) 0.5 k/uL (1.0-4.8); Lymphocytes % (A) 4 %; MCH 30.7 pg (25.0-35.0); MCHC 31.2 g/dL (31.0-37.0); MCV 98.7 fL (80.0-100.0); Macrocytosis Slight; Mean Platelet Volume 8.7; Monocytes # (A) 0.5 k/uL (0-1.0); Monocytes % (A) 4 %; Neutrophils # (A) 12.8 k/uL (1.3-7.7); Neutrophils % (A) 92 %; Platelet Count 134 k/uL (150-450); RBC 2.64 m/uL (3.80-5.40); RDW 16.4 % (11.5-15.5)
--- NOTE | 2020-03-08 04:47 | XR ---
EXAM: XR Chest, 2 Views CLINICAL HISTORY: Difficulty breathing. TECHNIQUE: Frontal and lateral views of the chest. COMPARISON: December 06, 2019 FINDINGS: Lungs: Severe infiltration throughout the right upper lobe likely within the superior segment of the right lower lobe. Pleural space: Unremarkable. No pneumothorax. No pleural fluid. Heart: Unremarkable. No cardiomegaly. Mediastinum: Unremarkable. Bones/joints: Numerous bilateral healing rib fractures. IMPRESSION: Severe infiltration throughout the right upper lobe likely within the superior segment of the right lower lobe.
[2020-03-08 04:48] LABS: D-Dimer 1.61 mg/L FEU (<0.60); INR 1.1 (<1.2); Partial Thromboplastin Time 28.9 sec (22.0-30.0)
[2020-03-08 04:51] LABS: Albumin 3.4 g/dL (3.5-5.0); Calcium 9.3 mg/dL (8.4-10.2); Potassium 4.2 mmol/L (3.5-5.1); Total Bilirubin 0.3 mg/dL (0.2-1.3); Total Protein 7.1 g/dL (6.3-8.2)
[2020-03-08] MEDS ORDERED: SODIUM CHLORIDE 0.9% 1,000 ML IV STA (05:42)
[2020-03-08] MEDS ORDERED: SODIUM CHLORIDE 0.9% 500 ML 500 ML IV STA (05:42)
[2020-03-08] MEDS ORDERED: ALBUTEROL NEBULIZED 2.5 MG/3 ML INHALATION PRN (05:56)
[2020-03-08] MEDS ORDERED: PNEUMONIA PROTOCOL UTILIZED 1 EACH MISC PO PRN (05:56)
[2020-03-08] MEDS ORDERED: AZITHROMYCIN 500 MG in SODIUM CHLORIDE 0.9% 250 ML IVPB STA (05:56)
[2020-03-08] MEDS ORDERED: AZTREONAM 2 GM in SODIUM CHLORIDE 0.9% 100 ML IVPB STA (05:56)
[2020-03-08] MEDS: SODIUM CHLORIDE 0.9% 1,000 ML IV SCH ×3 (06:38→21:38)
[2020-03-08] MEDS: IPRATROPIUM-ALBUTEROL 3 ML NEB INHALATION SCH ×4 (07:30→19:36)
[2020-03-08] MEDS: SYMBICORT 160-4.5 MCG INHALER INHALATION SCH ×2 (07:30→19:36)
--- NOTE | 2020-03-08 07:56 | ED ---
SOB HPI - General Chief Complaint: Shortness of Breath Stated Complaint: ELIEZER Time Seen by Provider: 03/08/20 04:04 Source: patient, EMS Mode of arrival: EMS Limitations: altered mental status - History of Present Illness Initial Comments: This patient is a 69-year-old woman with history of underlying multiple myeloma, COPD, possible history of CHF, who presents with progressive dyspnea over the past 3 days, much worse tonight. On arrival, patient appears somewhat delirious, not able to give much more history. She does have some mild right upper chest aching discomfort. Patient does acknowledge cough with occasional thick sputum. MD Complaint: shortness of breath, cough Onset/Timin -: days(s) Severity: mild Quality: dull Consistency: constant Improves With: nothing Worsens With: nothing Known History Of: COPD, congestive heart failure, other Associated Symptoms: cough, sputum production Treatments Prior to Arrival: none - Related Data Home Oxygen Therapy: No Home Medications Medication Instructions Recorded Confirmed Sertraline [Zoloft] 200 mg PO PC-LUNCH 01/28/17 03/08/20 calcitrioL [Calcitriol] 0.25 mcg PO PC-LUNCH 10/23/17 03/08/20 Acyclovir 400 mg PO PC-LUNCH 12/28/17 03/08/20 Calcium Carb-Vit D 500Mg-200Un 2 tab PO DAILY@1200 08/15/18 03/08/20 [Oscal 500+D] Metoprolol Tartrate [Lopressor] 12.5 mg PO BID@1200,209908/15/18 03/08/20 Sodium Bicarbonate Tab 1,300 mg PO DAILY@1200 08/15/18 03/08/20 Latanoprost [Xalatan 0.005%] 1 drop BOTH EYES HS 03/15/19 03/08/20 Apixaban [Eliquis] 2.5 mg PO BID@1200,209905/03/19 03/08/20 Lenalidomide [Revlimid] 5 mg PO Q48H 05/03/19 03/08/20 Potassium Chloride [Klor-Con 20] 20 meq PO PC-LUNCH 05/03/19 03/08/20 Cyclobenzaprine [Flexeril] 10 mg PO BID@1200,209911/17/19 03/08/20 Ipratropium-Albuterol Nebulize 3 ml INHALATION RT-BID@1200,2100 11/17/19 03/08/20 [Duoneb 0.5 mg-3 mg/3 ml Soln] Sodium Bicarbonate Tab 650 mg PO HS 12/01/19 03/08/20 Previous Rx's Medication Instructions Recorded Budesonide-Formot 160-4.5 Mcg 2 puff INHALATION RT-BID #1 each 08/20/18 [Symbicort 160-4.5 Mcg Inhaler] Allergies Allergy/AdvReac Type Severity Reaction Status Date / Time Penicillins Allergy Unknown Unknown Verified 03/08/20 08:01 Cephalosporins Allergy Unknown Verified 03/08/20 08:01 ciprofloxacin HCl Allergy Lip Verified 03/08/20 08:01 [From Cipro] swelling, itching codeine Allergy Unknown Verified 03/08/20 08:01 Sulfa (Sulfonamide Allergy Unknown Verified 03/08/20 08:01 Antibiotics) Review of Systems ROS Statement: Those systems with pertinent positive or pertinent negative responses have been documented in the HPI. ROS Other: All systems not noted in ROS Statement are negative. Limitations: ROS unobtainable due to patients medical condition Constitutional: Reports: chills, weakness Respiratory: Reports: cough, dyspnea Cardiovascular: Reports: chest pain Gastrointestinal: Reports: nausea. Denies: abdominal pain, vomiting Genitourinary: Denies: dysuria Musculoskeletal: Denies: back pain Skin: Denies: rash Neurological: Denies: headache Past Medical History Past Medical History: Atrial Fibrillation, Atrial Flutter, Cancer, Heart Failure, COPD, CVA/TIA, Eye Disorder, Hyperlipidemia, Hypertension, Osteoarthritis (OA), Pneumonia, Renal Disease, Rheumatoid Arthritis (RA) Additional Past Medical History / Comment(s): CHF exacerbation, aflutter/afib with RVR/acute hypoxic respiratory failure/vavluar disease, pulmonary htn; 04/2017 pt diagnosed with multiple myeloma/bone cancer/CRD stage IV d/t myeloma per pt and currently receiving chemotherapy pill for maintance, bicytopenia 2ndary to chemo, last dose of chemo 11/30. 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 Past Anesthesia/Blood Transfusion Reactions: No Reported Reaction Additional Past Anesthesia/Blood Transfusion Reaction / Comment(s): Pt has received blood in past, on 10/2017 developed rash and was tx with steroids. Pt had blood tranfusion after with no recactions. Past Psychological History: Anxiety Smoking Status: Former smoker Past Alcohol Use History: None Reported Past Drug Use History: None Reported - Past Family History Father Family Medical History: Pneumonia Additional Family Medical History / Comment(s): FATHER RECENTLY FROM PNEUMONIA. HE WAS 100 YRS OLD. Mother Family Medical History: Cancer Additional Family Medical History / Comment(s): LUNG CANCER. MOTHER WAS A SMOKER. General Exam General appearance: alert, in distress, cachectic Head exam: Present: atraumatic, normocephalic Eye exam: Present: normal appearance, PERRL, EOMI. Absent: scleral icterus, conjunctival injection ENT exam: Present: mucous membranes dry Neck exam: Present: normal inspection. Absent: meningismus Respiratory exam: Present: respiratory distress (Mild tachypnea), wheezes (Trace expiratory wheeze), rales (Right upper) Cardiovascular Exam: Present: tachycardia, irregular rhythm, normal heart sounds. Absent: systolic murmur, diastolic murmur, rubs, gallop GI/Abdominal exam: Present: soft. Absent: distended, tenderness, guarding, rebound, rigid, mass Extremities exam: Present: normal inspection. Absent: pedal edema, calf tenderness Back exam: Present: normal inspection. Absent: CVA tenderness (R), CVA tenderness (L), vertebral tenderness Neurological exam: Present: alert, oriented X3. Absent: motor sensory deficit Skin exam: Present: dry, intact, mottled. Absent: rash, erythema, urticaria, vesicles, petechiae, pallor Course Vital Signs 03/08/20 03/08/20 03/08/20 03:56 04:03 04:41 Temperature 98.2 F Pulse Rate 61 152 H Respiratory 20 24 18 Rate Blood Pressure 91/69 98/47 O2 Sat by Pulse 92 L 96 Oximetry 03/08/20 03/08/20 03/08/20 04:45 05:00 05:15 Temperature Pulse Rate 115 H 135 H 138 H Respiratory 18 18 18 Rate Blood Pressure 102/60 111/54 108/51 O2 Sat by Pulse 100 100 100 Oximetry 03/08/20 03/08/20 03/08/20 06:00 06:30 06:45 Temperature Pulse Rate 134 H 102 H 130 H Respiratory 18 18 18 Rate Blood Pressure 104/60 98/52 103/56 O2 Sat by Pulse 100 98 99 Oximetry 03/08/20 03/08/20 03/08/20 07:00 07:05 07:10 Temperature Pulse Rate 110 H 105 H 101 H Respiratory 18 18 18 Rate Blood Pressure 105/54 100/55 103/62 O2 Sat by Pulse 99 99 99 Oximetry 03/08/20 03/08/20 03/08/20 07:15 07:20 07:31 Temperature Pulse Rate 101 H 101 H 105 H Respiratory 18 18 18 Rate Blood Pressure 98/54 99/60 O2 Sat by Pulse 99 99 Oximetry 03/08/20 03/08/20 07:36 07:44 Temperature 98.9 F Pulse Rate 101 H 103 H Respiratory 20 18 Rate Blood Pressure 97/43 O2 Sat by Pulse 100 Oximetry Procedures - [facility] Protocol (Time Out) Procedure Performed:: central line placement Performing Provider: Flaco Wooten Nurse: Marlena Latham Patient Identification (2 identifiers required): Chart, Verbal, Arm Band, Name Patient/Legal [employer]cker has Confirmed: Identity, Site, Procedure, Consent Site: right groin Site Marked: Yes Site Verified With Patient/Guardian: Yes - Central Line Placement Right Femoral Consent Obtained: written consent Patient Placed on Monitor/Pulse Ox: Yes MD Prep: mask, gown, gloves Central Line Prep: Chlorhexidine scrub, sterile drapes applied Local Anesthesia Used: Lidocaine 1% Ultrasound Used for Placement: Yes Central Line Lumen Inserted: triple Central Line Position: good blood return, all ports aspirated, flushed, capped, sutured in place with nylon Dressing Applied: Tegaderm Patient Tolerated Procedure: well, no complications - Sepsis Sepsis Focused Exam #1 Sepsis Focused Exam Date: 03/08/20 Sepsis Focused Exam Time: 06:05 Sepsis Focused Exam Complete: Yes Vital Signs & RN Notes Reviewed: Yes Capillary Refill: < 2 Seconds: Fingers Peripheral Pulses: Normal: Radial (R) Skin Color: Normal for Patient Respiratory Exam: rhonchi (Right upper) Cardiovascular Exam: tachycardia, irregular rhythm Medical Decision Making - Medical Decision Making This patient is a 69-year-old woman presenting with progressive dyspnea over past 3 days. The patient does have dense right upper lobe infiltrate. Patient also tachycardic and found to have atrial flutter with ventricular rate in the 130s. Patient is mildly hypotensive. Found to have elevated lactic acid and consistent with sepsis. Patient is given sepsis bolus, Cardizem is started, IV antibiotics. Discussed CODE STATUS, at this point patient would like all treatment. The patient is responding to fluid and Cardizem, she is much more alert and skin color has improved capillary refill normal. Is discussed with admitting physician and with Dr. Hart and there treatment recommendations incorporated. - Lab Data Result diagrams: 03/08/20 04:20 03/08/20 04:08 Lab Results 03/08/20 03/08/20 03/08/20 Range/Units 04:08 04:08 04:08 WBC (3.8-10.6) k/uL RBC (3.80-5.40) m/uL Hgb (11.4-16.0) gm/dL Hct (34.0-46.0) % MCV (80.0-100.0) fL MCH (25.0-35.0) pg MCHC (31.0-37.0) g/dL RDW (11.5-15.5) % Plt Count (150-450) k/uL MPV Neutrophils % % Lymphocytes % % Monocytes % % Eosinophils % % Basophils % % Neutrophils # (1.3-7.7) k/uL Lymphocytes # (1.0-4.8) k/uL Monocytes # (0-1.0) k/uL Eosinophils # (0-0.7) k/uL Basophils # (0-0.2) k/uL Hypochromasia Anisocytosis Macrocytosis PT 11.0 (9.0-12.0) sec INR 1.1 (<1.2) APTT 28.9 (22.0-30.0) sec D-Dimer 1.61 H (<0.60) mg/L FEU Sodium 139 (137-145) mmol/L Potassium 4.2 (3.5-5.1) mmol/L Chloride 108 H (98-107) mmol/L Carbon Dioxide 18 L (22-30) mmol/L Anion Gap 13 mmol/L BUN 47 H (7-17) mg/dL Creatinine 2.64 H (0.52-1.04) mg/dL Est GFR (CKD-EPI)AfAm 21 (>60 ml/min/1.73 sqM) Est GFR (CKD-EPI)NonAf 18 (>60 ml/min/1.73 sqM) Glucose 188 H (74-99) mg/dL Lactic Ac Sepsis Rflx Plasma Lactic Acid Afshin 4.9 H* (0.7-2.0) mmol/L Calcium 9.3 (8.4-10.2) mg/dL Total Bilirubin 0.3 (0.2-1.3) mg/dL AST 32 (14-36) U/L ALT 35 H (4-34) U/L Alkaline Phosphatase 151 H (38-126) U/L Troponin I (0.000-0.034) ng/mL NT-Pro-B Natriuret Pep pg/mL Total Protein 7.1 (6.3-8.2) g/dL Albumin 3.4 L (3.5-5.0) g/dL 03/08/20 03/08/20 03/08/20 Range/Units 04:08 04:08 04:20 WBC 14.0 H (3.8-10.6) k/uL RBC 2.64 L (3.80-5.40) m/uL Hgb 8.1 L (11.4-16.0) gm/dL Hct 26.1 L (34.0-46.0) % MCV 98.7 (80.0-100.0) fL MCH 30.7 (25.0-35.0) pg MCHC 31.2 (31.0-37.0) g/dL RDW 16.4 H (11.5-15.5) % Plt Count 134 L (150-450) k/uL MPV 8.7 Neutrophils % 92 % Lymphocytes % 4 % Monocytes % 4 % Eosinophils % 0 % Basophils % 0 % Neutrophils # 12.8 H (1.3-7.7) k/uL Lymphocytes # 0.5 L (1.0-4.8) k/uL Monocytes # 0.5 (0-1.0) k/uL Eosinophils # 0.0 (0-0.7) k/uL Basophils # 0.0 (0-0.2) k/uL Hypochromasia Marked Anisocytosis Slight Macrocytosis Slight PT (9.0-12.0) sec INR (<1.2) APTT (22.0-30.0) sec D-Dimer (<0.60) mg/L FEU Sodium (137-145) mmol/L Potassium (3.5-5.1) mmol/L Chloride (98-107) mmol/L Carbon Dioxide (22-30) mmol/L Anion Gap mmol/L BUN (7-17) mg/dL Creatinine (0.52-1.04) mg/dL Est GFR (CKD-EPI)AfAm (>60 ml/min/1.73 sqM) Est GFR (CKD-EPI)NonAf (>60 ml/min/1.73 sqM) Glucose (74-99) mg/dL Lactic Ac Sepsis Rflx Plasma Lactic Acid Afshin (0.7-2.0) mmol/L Calcium (8.4-10.2) mg/dL Total Bilirubin (0.2-1.3) mg/dL AST (14-36) U/L ALT (4-34) U/L Alkaline Phosphatase (38-126) U/L Troponin I 0.014 (0.000-0.034) ng/mL NT-Pro-B Natriuret Pep 2540 pg/mL Total Protein (6.3-8.2) g/dL Albumin (3.5-5.0) g/dL 03/08/20 Range/Units 04:55 WBC (3.8-10.6) k/uL RBC (3.80-5.40) m/uL Hgb (11.4-16.0) gm/dL Hct (34.0-46.0) % MCV (80.0-100.0) fL MCH (25.0-35.0) pg MCHC (31.0-37.0) g/dL RDW (11.5-15.5) % Plt Count (150-450) k/uL MPV Neutrophils % % Lymphocytes % % Monocytes % % Eosinophils % % Basophils % % Neutrophils # (1.3-7.7) k/uL Lymphocytes # (1.0-4.8) k/uL Monocytes # (0-1.0) k/uL Eosinophils # (0-0.7) k/uL Basophils # (0-0.2) k/uL Hypochromasia Anisocytosis Macrocytosis PT (9.0-12.0) sec INR (<1.2) APTT (22.0-30.0) sec D-Dimer (<0.60) mg/L FEU Sodium (137-145) mmol/L Potassium (3.5-5.1) mmol/L Chloride (98-107) mmol/L Carbon Dioxide (22-30) mmol/L Anion Gap mmol/L BUN (7-17) mg/dL Creatinine (0.52-1.04) mg/dL Est GFR (CKD-EPI)AfAm (>60 ml/min/1.73 sqM) Est GFR (CKD-EPI)NonAf (>60 ml/min/1.73 sqM) Glucose (74-99) mg/dL Lactic Ac Sepsis Rflx Y Plasma Lactic Acid Afshin (0.7-2.0) mmol/L Calcium (8.4-10.2) mg/dL Total Bilirubin (0.2-1.3) mg/dL AST (14-36) U/L ALT (4-34) U/L Alkaline Phosphatase (38-126) U/L Troponin I (0.000-0.034) ng/mL NT-Pro-B Natriuret Pep pg/mL Total Protein (6.3-8.2) g/dL Albumin (3.5-5.0) g/dL - EKG Data -: EKG Interpreted by De EKG shows normal: axis (Normal), intervals (Normal), QRS complexes (Possible old septal infarct), ST-T waves (Possible) Rate: tachycardia Interpretation: other (Underlying rhythm appears to be atrial flutter with rapid ventricular response 136 bpm) Critical Care Time Critical Care Time: Yes (35 minutes) Disposition Clinical Impression: Chronic kidney disease, Pneumonia, Atrial flutter with rapid ventricular response, Lactic acidosis, Anemia Disposition: ADMITTED IP TO THIS [facility] Condition: Serious
[2020-03-08] MEDS ORDERED: AZTREONAM 2 GM in SODIUM CHLORIDE 0.9% 100 ML IVPB SCH (08:00)
--- NOTE | 2020-03-08 10:59 | P.CRDCN ---
History of Present Illness Consult date: 03/08/20 Chief complaint: Increasing shortness of breath History of present illness: This is a 69-year-old female patient who was consulted to see for further evaluation of atrial fibrillation with rapid ventricular response. The patient does have history of paroxysmal atrial fibrillation and she is on oral anticoagulation with Eliquis as well as metoprolol. Beside that the patient does have an extensive past medical history consistent of chronic obstructive pulmonary disease, history of TIA/CVA, hypertension, dyslipidemia, and history of multiple myeloma. She was in her usual state of health until yesterday when she started experiencing increasing shortness of breath without any symptoms of chest pain or chest discomfort. Beside that she was feeling and tired. She did have cough without any sputum. She did not have any symptoms of her chills. She was not in contact with anybody who is sick around her. Because of that she decided to come to the hospital. The workup including chest x-ray showed right upper lobe pneumonia. Currently the patient is on antibiotics. She was tested negative for COVID 19. When she presented to the hospital she was in atrial fibrillation with rapid ventricular response and she was started on Cardizem drip and subsequently converted to normal sinus mechanism. Reviewing the initial EKG showed what it seems to be in atrial flutter with differential diagnosis of multifocal atrial tachycardia but subsequently the patient was converted to normal sinus mechanism and she is in process of getting an EKG. Now she is on Cardizem at 5 mg per hour which I'm going to stop an increase the dose of metoprolol to 25 mg by mouth twice a day. She is on oral anticoagulation with Eliquis which I am going to continue. The rest of workup was reviewed. Hemoglobin is 8.1. The creatinine is 2.65. The chest x-ray showed right upper lobe infiltrate. An echocardiogram from 2019 revealed normal left ventricular systolic function was only mild valvular abnormalities. Past Medical History Past Medical History: Atrial Fibrillation, Atrial Flutter, Cancer, Heart Fail ure, COPD, CVA/TIA, Eye Disorder, Hyperlipidemia, Hypertension, Osteoarthritis (OA), Pneumonia, Renal Disease, Rheumatoid Arthritis (RA) Additional Past Medical History / Comment(s): CHF exacerbation, aflutter/afib with RVR/acute hypoxic respiratory failure/vavluar disease, pulmonary htn; 04/2017 pt diagnosed with multiple myeloma/bone cancer/CRD stage IV d/t myeloma per pt and currently receiving chemotherapy pill for maintance, bicytopenia 2ndary to chemo, last dose of chemo 11/30. low albumin, chronic anemia, 2010 CVA with L leg weakness, cervical cancer with surgery, bilateral glaucoma, L eye macular degeneration, past back and R leg pain but none since lumbar fusion History of Any Multi-Drug Resistant Organisms: None Reported Past Surgical History: Back Surgery, Breast Surgery Additional Past Surgical History / Comment(s): LUMBAR FUSION 2015, BREAST IMPLANTS IN THE 70'S REMOVED MID S, CERVIX REMOVED D/T CANCER. Past Anesthesia/Blood Transfusion Reactions: No Reported Reaction Additional Past Anesthesia/Blood Transfusion Reaction / Comment(s): Pt has received blood in past, on 10/2017 developed rash and was tx with steroids. Pt had blood tranfusion after with no recactions. Past Psychological History: Anxiety Smoking Status: Former smoker Past Alcohol Use History: None Reported Past Drug Use History: None Reported - Past Family History Father Family Medical History: Pneumonia Additional Family Medical History / Comment(s): FATHER RECENTLY FROM PNEUMONIA. HE WAS 100 YRS OLD. Mother Family Medical History: Cancer Additional Family Medical History / Comment(s): LUNG CANCER. MOTHER WAS A SMOKER. Medications and Allergies Home Medications Medication Instructions Recorded Confirmed Type Sertraline [Zoloft] 200 mg PO PC-LUNCH 01/28/17 03/08/20 History calcitrioL [Calcitriol] 0.25 mcg PO PC-LUNCH 10/23/17 03/08/20 History Acyclovir 400 mg PO PC-LUNCH 12/28/17 03/08/20 History Calcium Carb-Vit D 500Mg-200Un 2 tab PO DAILY@1200 08/15/18 03/08/20 History [Oscal 500+D] Metoprolol Tartrate [Lopressor] 12.5 mg PO BID@1200,2100 08/15/18 03/08/20 History Sodium Bicarbonate Tab 1,300 mg PO DAILY@1200 08/15/18 03/08/20 History Budesonide-Formot 160-4.5 Mcg 2 puff INHALATION RT-BID #1 each 08/20/18 03/08/20 Rx [Symbicort 160-4.5 Mcg Inhaler] Latanoprost [Xalatan 0.005%] 1 drop BOTH EYES HS 03/15/19 03/08/20 History Apixaban [Eliquis] 2.5 mg PO BID@1200,2100 05/03/19 03/08/20 History Lenalidomide [Revlimid] 5 mg PO Q48H 05/03/19 03/08/20 History Potassium Chloride [Klor-Con 20] 20 meq PO PC-LUNCH 05/03/19 03/08/20 History Cyclobenzaprine [Flexeril] 10 mg PO BID@1200,2100 11/17/19 03/08/20 History Ipratropium-Albuterol Nebulize 3 ml INHALATION RT-BID@1200,2100 11/17/19 03/08/20 History [Duoneb 0.5 mg-3 mg/3 ml Soln] Sodium Bicarbonate Tab 650 mg PO HS 12/01/19 03/08/20 History Allergies Allergy/AdvReac Type Severity Reaction Status Date / Time Penicillins Allergy Unknown Unknown Verified 03/08/20 08:01 Cephalosporins Allergy Unknown Verified 03/08/20 08:01 ciprofloxacin HCl Allergy Lip Verified 03/08/20 08:01 [From Cipro] swelling, itching codeine Allergy Unknown Verified 03/08/20 08:01 Sulfa (Sulfonamide Allergy Unknown Verified 03/08/20 08:01 Antibiotics) Physical Exam Vitals: Vital Signs Temp Pulse Pulse Resp BP BP Pulse Ox 03/08/20 08:00 98.7 F 98 16 94/52 100 03/08/20 07:44 103 H 18 03/08/20 07:36 98.9 F 101 H 20 97/43 100 03/08/20 07:31 105 H 18 03/08/20 07:20 101 H 18 99/60 99 03/08/20 07:15 101 H 18 98/54 99 03/08/20 07:10 101 H 18 103/62 99 03/08/20 07:05 105 H 18 100/55 99 03/08/20 07:00 110 H 18 105/54 99 03/08/20 06:45 130 H 18 103/56 99 03/08/20 06:30 102 H 18 98/52 98 03/08/20 06:00 134 H 18 104/60 100 03/08/20 05:15 138 H 18 108/51 100 03/08/20 05:00 135 H 18 111/54 100 03/08/20 04:45 115 H 18 102/60 100 03/08/20 04:41 152 H 18 98/47 96 03/08/20 04:03 24 03/08/20 03:56 98.2 F 61 20 91/69 92 L Intake and Output 03/07/20 03/08/20 03/08/20 22:59 06:59 14:59 Intake Total 100 Balance 100 Intake: Intake, IV Titration 100 Amount Azithromycin 500 mg In 100 Sodium Chloride 0.9% 250 ml @ 125 mls/hr IVPB ONCE STA Rx#:[id number] Oral 0 Other: Voiding Method Diaper Weight 39.463 kg 37.5 kg - Constitutional General appearance: no acute distress - Respiratory Respiratory: bilateral: diminished - Cardiovascular Rhythm: regular Heart sounds: normal: S1, S2 Results 03/08/20 04:20 03/08/20 04:08 Cardiac Enzymes 03/08/20 03/08/20 Range/Units 04:08 04:08 AST 32 (14-36) U/L Troponin I 0.014 (0.000-0.034) ng/mL Coagulation 03/08/20 Range/Units 04:08 PT 11.0 (9.0-12.0) sec APTT 28.9 (22.0-30.0) sec CBC 03/08/20 Range/Units 04:20 WBC 14.0 H (3.8-10.6) k/uL RBC 2.64 L (3.80-5.40) m/uL Hgb 8.1 L (11.4-16.0) gm/dL Hct 26.1 L (34.0-46.0) % Plt Count 134 L (150-450) k/uL Comprehensive Metabolic Panel 03/08/20 Range/Units 04:08 Sodium 139 (137-145) mmol/L Potassium 4.2 (3.5-5.1) mmol/L Chloride 108 H (98-107) mmol/L Carbon Dioxide 18 L (22-30) mmol/L BUN 47 H (7-17) mg/dL Creatinine 2.64 H (0.52-1.04) mg/dL Glucose 188 H (74-99) mg/dL Calcium 9.3 (8.4-10.2) mg/dL AST 32 (14-36) U/L ALT 35 H (4-34) U/L Alkaline Phosphatase 151 H (38-126) U/L Total Protein 7.1 (6.3-8.2) g/dL Albumin 3.4 L (3.5-5.0) g/dL Current Medications Generic Name Dose Route Start Last Admin Trade Name Freq PRN Reason Stop Dose Admin Albuterol Sulfate 2.5 mg 03/08/20 05:56 Albuterol Nebulized 2.5 Mg/3 Ml INHALATION RT-Q4H PRN Shortness Of Breath Or Wheezing Albuterol/Ipratropium 3 ml 03/08/20 08:00 03/08/20 07:30 Ipratropium-Albuterol 3 Ml Neb INHALATION 3 ml RT-QID OLIVE Administration Apixaban 2.5 mg 03/08/20 12:00 Apixaban 2.5 Mg Tablet PO BID@1200,2100 OLIVE Budesonide/Formoterol Fumarate 2 puff 03/08/20 08:00 03/08/20 07:30 Symbicort 160-4.5 Mcg Inhaler INHALATION 2 puff RT-BID OLIVE Administration Calcitriol 0.25 mcg 03/08/20 13:30 Calcitriol 0.25 Mcg Cap PO PC-LUNCH OLIVE Calcium Carbonate 2 each 03/08/20 12:00 Calcium Carb-Vit D 500mg-200un 1 Each Tab PO DAILY@1200 LOIVE Sodium Chloride 1,000 mls @ 130 mls/hr 03/08/20 05:42 03/08/20 05:54 Saline 0.9% IV 03/08/20 13:23 130 mls/hr .Q7H42M STA Administration Sodium Chloride 1,000 mls @ 130 mls/hr 03/08/20 06:00 03/08/20 06:38 Saline 0.9% IV Not Given .Q7H42M OLIVE Azithromycin 500 mg/ Sodium 250 mls @ 250 mls/hr 03/09/20 09:00 Chloride IVPB 03/13/20 09:01 DAILY OLIVE Aztreonam 1 gm/ Sodium 50 mls @ 16.667 mls/hr 03/08/20 16:00 Chloride IVPB Q8HR OLIVE Latanoprost 1 drops 03/08/20 21:00 Latanoprost 0.005% Ophth Drops 2.5 Ml Btl BOTH EYES HS OLIVE Metoprolol Tartrate 25 mg 03/08/20 12:00 Metoprolol Tartrate 25 Mg Tab PO BID@1200,2100 OLIVE Miscellaneous Information 1 each 03/08/20 05:56 Pneumonia Protocol Utilized 1 Each Misc PO ONCE PRN Per Protocol Non-Formulary Medication 5 mg 03/09/20 09:00 Lenalidomide [Revlimid] PO Q48H OLIVE Potassium Chloride 20 meq 03/08/20 13:30 Potassium Chloride Er 20 Meq Tab.Er PO PC-LUNCH OLIVE Sertraline HCl 200 mg 03/08/20 13:30 Sertraline 100 Mg Tab PO PC-LUNCH OLIVE Sodium Bicarbonate 1,300 mg 03/08/20 12:00 Sodium Bicarbonate Tab 650 Mg Tab PO DAILY@1200 OLIVE Sodium Bicarbonate 650 mg 03/08/20 21:00 Sodium Bicarbonate Tab 650 Mg Tab PO HS [facility] Intake and Output 03/07/20 03/08/20 03/08/20 22:59 06:59 14:59 Intake Total 100 Balance 100 Intake: Intake, IV Titration 100 Amount Azithromycin 500 mg In 100 Sodium Chloride 0.9% 250 ml @ 125 mls/hr IVPB ONCE STA Rx#:[id number] Oral 0 Other: Voiding Method Diaper Weight 39.463 kg 37.5 kg Patient Weight 03/09/20 06:59 Weight 37.5 kg 03/08/20 04:20 03/08/20 04:08 Assessment and Plan Assessment: Assessment #1 right upper lobe pneumonia #2 COPD exacerbation #3 atrial fibrillation with a rapid ventricular response. The patient converted to normal sinus mechanism #4 history of paroxysmal atrial fibrillation #5 history of TIA/CVA #6 chronic kidney disease Plan 1 DC Cardizem IV and increase the dose of metoprolol #2 continue oral anticoagulation #3 obtain an echocardiogram #4 follow-up with the patient
[2020-03-08] MEDS ORDERED: METOPROLOL TARTRATE 25 MG TAB PO SCH (12:00)
--- NOTE | 2020-03-08 12:41 | NM ---
EXAMINATION TYPE: NM pul vent and perfuse DATE OF EXAM: 03/08/2020 COMPARISON: Prior nuclear medicine VQ study March 15, 2019. Chest CT January 10, 2020. Chest x-ray from earlier today HISTORY: Elevated d-dimer and shortness of breath. History of lung cancer. TECHNIQUE: Utilizing inhalation of 36.4 mCi Tc 99m DTPA aerosol and intravenous injection of 4.8 mCi of Tc 99m MAA, ventilation and perfusion images are acquired post injection in multiple projections. FINDINGS: Diminished radiotracer uptake on ventilation and perfusion images in the right lung corresponds to ar ea of increased opacity in the upper to mid lung. Additional scattered small matching defects. There is no evidence of mismatched defects. IMPRESSION: Low scintigraphic evidence for acute pulmonary embolism.
--- NOTE | 2020-03-08 12:44 | P.CNPUL ---
History of Present Illness Consult date: 03/08/20 Requesting physician: Sam Villagran Reason for consult: dyspnea Chief complaint: Shortness of breath, right-sided chest discomfort History of present illness: This a very pleasant 69-year-old female patient who follows with Dr. Villalobos as her primary care provider. She has a history of atrial fibrillation/flutter, congestive heart failure, chronic obstructive pulmonary disease with chronic hypoxic respiratory failure, CVA/TIA, hypertension, hyperlipidemia, rheumatoid arthritis, COPD with previous chronic tobacco dependence. She also has a history of multiple myeloma and is currently on Revlimid. She follows with Dr. Larson in this regard. She presented here to the emergency room early this morning with a 2-3 day history of increasing shortness of breath cough congestion chest tightness in the right upper chest and wheezing. No fever, chills or night sweats. No nausea vomiting or diarrhea. CoVID 19 not detected. Chest x-ray reveals evidence of a right upper lobe pneumonia. She was initiated on Rocephin and Zithromax and admitted for the same. She was also found to be in atrial flutter with a rapid ventricular response and started on Cardizem drip at 5 mg per hour. She has 0.9 normal saline at 130 ML's per hour. Her lactic acid initially was for currently down to 0.8. She is maintaining O2 saturations up to 100% on 2 L/m per nasal cannula. White count 14.0. Hemoglobin 8.1. Platelet count 134. D-dimer 1.61. Sodium 139. Potassium 4.2. Bicarb 18. Creatinine 2.64. Glucose 188. Troponin 0.014. ProBNP 2540. VQ scan pending. She is seen this morning in consultation on the selective care unit. She is currently resting flat in bed. Awake and alert in no acute distress. Feeling a bit better today compared to yesterday. Still with a loose nonproductive cough. Remains afebrile. Heart rate better controlled currently in sinus rhythm. Hemodynamically stable. Review of Systems REVIEW OF SYSTEMS: CONSTITUTIONAL: Denies any recent significant weight loss or weight gain. EYES: Denies change in vision. EARS, NOSE, MOUTH, THROAT: Denies headaches, denies sore throat. CARDIOVASCULAR: Positive for right-sided chest pain, palpitations no syncopal episodes. RESPIRATORY: Positive for shortness of breath, cough, congestion no hemoptysis. GASTROINTESTINAL: Denies change in appetite, denies abdominal pain GENITOURINARY: Denies hematuria, denies infections. MUSKULOSKELETAL: Denies pain, denies swelling. INTEGUMENTARY: Denies rash, denies eczema. NEUROLOGICAL: Denies recent memory loss, no recent seizure activity. PSYCHIATRIC: Denies anxiety, denies depression. HEMATOLOGIC/LYMPHATIC: Denies anemia, denies enlarged lymph nodes. Past Medical History Past Medical History: Atrial Fibrillation, Atrial Flutter, Cancer, Heart Failure, COPD, CVA/TIA, Eye Disorder, Hyperlipidemia, Hypertension, Osteoarthritis (OA), Pneumonia, Renal Disease, Rheumatoid Arthritis (RA) Additional Past Medical History / Comment(s): CHF exacerbation, aflutter/afib with RVR/acute hypoxic respiratory failure/vavluar disease, pulmonary htn; 04/2017 pt diagnosed with multiple myeloma/bone cancer/CRD stage IV d/t myeloma per pt and currently receiving chemotherapy pill for maintance, bicytopenia 2ndary to chemo, last dose of chemo 11/30. 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 Past Anesthesia/Blood Transfusion Reactions: No Reported Reaction Additional Past Anesthesia/Blood Transfusion Reaction / Comment(s): Pt has received blood in past, on 10/2017 developed rash and was tx with steroids. Pt had blood tranfusion after with no recactions. Past Psychological History: Anxiety Smoking Status: Former smoker Past Alcohol Use History: None Reported Past Drug Use History: None Reported - Past Family History Father Family Medical History: Pneumonia Additional Family Medical History / Comment(s): FATHER RECENTLY FROM PNEUMONIA. HE WAS 100 YRS OLD. Mother Family Medical History: Cancer Additional Family Medical History / Comment(s): LUNG CANCER. MOTHER WAS A SMOKER. Medications and Allergies Home Medications Medication Instructions Recorded Confirmed Type Sertraline [Zoloft] 200 mg PO PC-LUNCH 01/28/17 03/08/20 History calcitrioL [Calcitriol] 0.25 mcg PO PC-LUNCH 10/23/17 03/08/20 History Acyclovir 400 mg PO PC-LUNCH 12/28/17 03/08/20 History Calcium Carb-Vit D 500Mg-200Un 2 tab PO DAILY@1200 08/15/18 03/08/20 History [Oscal 500+D] Metoprolol Tartrate [Lopressor] 12.5 mg PO BID@1200,2100 08/15/18 03/08/20 History Sodium Bicarbonate Tab 1,300 mg PO DAILY@1200 08/15/18 03/08/20 History Budesonide-Formot 160-4.5 Mcg 2 puff INHALATION RT-BID #1 each 08/20/18 03/08/20 Rx [Symbicort 160-4.5 Mcg Inhaler] Latanoprost [Xalatan 0.005%] 1 drop BOTH EYES HS 03/15/19 03/08/20 History Apixaban [Eliquis] 2.5 mg PO BID@1200,2100 05/03/19 03/08/20 History Lenalidomide [Revlimid] 5 mg PO Q48H 05/03/19 03/08/20 History Potassium Chloride [Klor-Con 20] 20 meq PO PC-LUNCH 05/03/19 03/08/20 History Cyclobenzaprine [Flexeril] 10 mg PO BID@1200,2100 11/17/19 03/08/20 History Ipratropium-Albuterol Nebulize 3 ml INHALATION RT-BID@1200,2100 11/17/19 03/08/20 History [Duoneb 0.5 mg-3 mg/3 ml Soln] Sodium Bicarbonate Tab 650 mg PO HS 12/01/19 03/08/20 History Allergies Allergy/AdvReac Type Severity Reaction Status Date / Time Penicillins Allergy Unknown Unknown Verified 03/08/20 08:01 Cephalosporins Allergy Unknown Verified 03/08/20 08:01 ciprofloxacin HCl Allergy Lip Verified 03/08/20 08:01 [From Cipro] swelling, itching codeine Allergy Unknown Verified 03/08/20 08:01 Sulfa (Sulfonamide Allergy Unknown Verified 03/08/20 08:01 Antibiotics) Physical Exam Vitals: Vital Signs Temp Pulse Pulse Resp BP BP Pulse Ox 03/08/20 08:00 98.7 F 98 16 94/52 100 03/08/20 07:44 103 H 18 03/08/20 07:36 98.9 F 101 H 20 97/43 100 03/08/20 07:31 105 H 18 03/08/20 07:20 101 H 18 99/60 99 03/08/20 07:15 101 H 18 98/54 99 03/08/20 07:10 101 H 18 103/62 99 03/08/20 07:05 105 H 18 100/55 99 03/08/20 07:00 110 H 18 105/54 99 03/08/20 06:45 130 H 18 103/56 99 03/08/20 06:30 102 H 18 98/52 98 03/08/20 06:00 134 H 18 104/60 100 03/08/20 05:15 138 H 18 108/51 100 03/08/20 05:00 135 H 18 111/54 100 03/08/20 04:45 115 H 18 102/60 100 03/08/20 04:41 152 H 18 98/47 96 03/08/20 04:03 24 03/08/20 03:56 98.2 F 61 20 91/69 92 L Intake and Output 03/07/20 03/08/20 03/08/20 22:59 06:59 14:59 Intake Total 100 Balance 100 Intake: Intake, IV Titration 100 Amount Azithromycin 500 mg In 100 Sodium Chloride 0.9% 250 ml @ 125 mls/hr IVPB ONCE STA Rx#:[id number] Oral 0 Other: Voiding Method Diaper Weight 39.463 kg 37.5 kg GENERAL EXAM: Alert, very pleasant frail, cachectic 69-year-old female patient, on 2 L nasal cannula, fairly comfortable in no apparent distress. HEAD: Normocephalic. EYES: Normal reaction of pupils, equal size. NOSE: Clear with pink turbinates. THROAT: No erythema or exudates. NECK: No masses, no JVD. CHEST: No chest wall deformity. LUNGS: Equal air entry with bilateral scattered rhonchi more so on the right lung CVS: S1 and S2 normal with no audible murmur, regular rhythm. ABDOMEN: No hepatosplenomegaly, normal bowel sounds, no guarding or rigidity. SPINE: No scoliosis or deformity SKIN: No rashes CENTRAL NERVOUS SYSTEM: No focal deficits, tone is normal in all 4 extremities. EXTREMITIES: There is no peripheral edema. No clubbing, no cyanosis. Peripheral pulses are intact. Results - Laboratory Findings CBC and BMP: 03/08/20 04:20 03/08/20 04:08 PT/INR, D-dimer PT 11.0 sec (9.0-12.0) 03/08/20 04:08 INR 1.1 (<1.2) 03/08/20 04:08 D-Dimer 1.61 mg/L FEU (<0.60) H 03/08/20 04:08 Abnormal lab findings: Abnormal Labs 03/08/20 03/08/20 03/08/20 04:08 04:08 04:08 WBC RBC Hgb Hct RDW Plt Count Neutrophils # Lymphocytes # D-Dimer 1.61 H Chloride 108 H Carbon Dioxide 18 L BUN 47 H Creatinine 2.64 H Glucose 188 H Plasma Lactic Acid Afshin 4.9 H* ALT 35 H Alkaline Phosphatase 151 H Albumin 3.4 L 03/08/20 04:20 WBC 14.0 H RBC 2.64 L Hgb 8.1 L Hct 26.1 L RDW 16.4 H Plt Count 134 L Neutrophils # 12.8 H Lymphocytes # 0.5 L D-Dimer Chloride Carbon Dioxide BUN Creatinine Glucose Plasma Lactic Acid Afshin ALT Alkaline Phosphatase Albumin - Diagnostic Findings Chest x-ray: image reviewed Assessment and Plan Assessment: 1 Acute hypoxic respiratory failure secondary to an acute right upper lung the pneumonia, suspect community-acquired in a compromised patient 2 Right-sided atypical chest pain secondary to above 3 Leukocytosis secondary to above 4 Anemia, current hemoglobin 8.1 5 Acute renal failure, current creatinine 2.64, suspect dehydration 6 Lactic acidosis secondary to above, recovered 7 Multiple myeloma with abnormal uptake associated sedated with the patient's right lower lobe lung mass, currently on Revlimid 8 Chronic obstructive pulmonary disease with previous chronic tobacco dependence 9 Acute on chronic kidney disease, stage IIIIV 10 History of diastolic congestive heart failure 11 Paroxysmal atrial fibrillation/flutter with RVR, on a Cardizem drip, currently in sinus rhythm and maintained on Eliquis 12 Previous history of CVA 13 Hypertension 14 Hyperlipidemia 15 Chronic anxiety Plan: The patient was seen and evaluated by Dr. Hart Chest x-ray, labs reviewed. VQ scan pending Currently on Eliquis Antibiotics per ID services Continue Symbicort and albuterol Follow-up chest x-ray in a.m. We'll continue to follow and make further recommendations based on her clinical status I, the cosigning physician, performed a history & physical examination of the patient. Lungs sounds scattered rhonchi more so on the right lung. Maintaining good O2 saturations in the 90s on 2 L/m per nasal cannula. I discussed the assessment and plan of care with my nurse practitioner, Elida Rasheed. I attest to the above consultation as dictated by her. Time with Patient: Greater than 30
--- NOTE | 2020-03-08 15:24 | P.HPIM ---
History of Present Illness H&P Date: 03/08/20 Chief Complaint: Shortness of breath This is a 69-year-old female with history of multiple medical problems including COPD, multiple myeloma and history of heart failure, patient has been having problems associated with shortness of breath started about 3 days ago, some disc omfort in the upper part of the chest has been present, ongoing cough with thick sputum, patient prior history significant for major depression, hypertension hypertensive cardiovascular disease, chronic atrial fibrillation has been on direct oral anticoagulants, also on bronchodilators, a she noted to have a upper lobe infiltrate on the right side due to pneumonia likely community acquired likely also has a atrial fibrillation and flutter with a rate of 1:30, admitted into the hospital on broad spectrum antibiotic with cardiology and primary pulmonary in consultation, patient has been started on Cardizem drip and antibiotic Review of Systems All systems: negative Past Medical History Past Medical History: Atrial Fibrillation, Atrial Flutter, Cancer, Heart Failure, COPD, CVA/TIA, Eye Disorder, Hyperlipidemia, Hypertension, Osteoarthritis (OA), Pneumonia, Renal Disease, Rheumatoid Arthritis (RA) Additional Past Medical History / Comment(s): CHF exacerbation, aflutter/afib with RVR/acute hypoxic respiratory failure/vavluar disease, pulmonary htn; 04/2017 pt diagnosed with multiple myeloma/bone cancer/CRD stage IV d/t myeloma per pt and currently receiving chemotherapy pill for maintance, bicytopenia 2ndary to chemo, last dose of chemo 11/30. low albumin, chronic anemia, 2009 CVA with L leg weakness, cervical cancer with surgery, bilateral glaucoma, L eye macular degeneration, past back and R leg pain but none since lumbar fusion History of Any Multi-Drug Resistant Organisms: None Reported Past Surgical History: Back Surgery, Breast Surgery Additional Past Surgical History / Comment(s): LUMBAR FUSION 2015, BREAST IMPLANTS IN THE 'S REMOVED MID , CERVIX REMOVED D/T CANCER. Past Anesthesia/Blood Transfusion Reactions: No Reported Reaction Additional Past Anesthesia/Blood Transfusion Reaction / Comment(s): Pt has received blood in past, on 10/2017 developed rash and was tx with steroids. Pt had blood tranfusion after with no recactions. Past Psychological History: Anxiety Smoking Status: Former smoker Past Alcohol Use History: None Reported Past Drug Use History: None Reported - Past Family History Father Family Medical History: Pneumonia Additional Family Medical History / Comment(s): FATHER RECENTLY FROM PNEUMONIA. HE WAS 100 YRS OLD. Mother Family Medical History: Cancer Additional Family Medical History / Comment(s): LUNG CANCER. MOTHER WAS A SMOKER. Medications and Allergies Home Medications Medication Instructions Recorded Confirmed Type Sertraline [Zoloft] 200 mg PO PC-LUNCH 01/28/17 03/08/20 History calcitrioL [Calcitriol] 0.25 mcg PO PC-LUNCH 10/23/17 03/08/20 History Acyclovir 400 mg PO PC-LUNCH 12/28/17 03/08/20 History Calcium Carb-Vit D 500Mg-200Un 2 tab PO DAILY@1200 08/15/18 03/08/20 History [Oscal 500+D] Metoprolol Tartrate [Lopressor] 12.5 mg PO BID@1200,209908/15/18 03/08/20 History Sodium Bicarbonate Tab 1,300 mg PO DAILY@1200 08/15/18 03/08/20 History Budesonide-Formot 160-4.5 Mcg 2 puff INHALATION RT-BID #1 each 08/20/18 03/08/20 Rx [Symbicort 160-4.5 Mcg Inhaler] Latanoprost [Xalatan 0.005%] 1 drop BOTH EYES HS 03/15/19 03/08/20 History Apixaban [Eliquis] 2.5 mg PO BID@1200,209905/03/19 03/08/20 History Lenalidomide [Revlimid] 5 mg PO Q48H 05/03/19 03/08/20 History Potassium Chloride [Klor-Con 20] 20 meq PO PC-LUNCH 05/03/19 03/08/20 History Cyclobenzaprine [Flexeril] 10 mg PO BID@1200,209911/17/19 03/08/20 History Ipratropium-Albuterol Nebulize 3 ml INHALATION RT-BID@1200,209911/17/19 03/08/20 History [Duoneb 0.5 mg-3 mg/3 ml Soln] Sodium Bicarbonate Tab 650 mg PO HS 12/01/19 03/08/20 History Allergies Allergy/AdvReac Type Severity Reaction Status Date / Time Penicillins Allergy Unknown Unknown Verified 03/08/20 08:01 Cephalosporins Allergy Unknown Verified 03/08/20 08:01 ciprofloxacin HCl Allergy Lip Verified 03/08/20 08:01 [From Cipro] swelling, itching codeine Allergy Unknown Verified 03/08/20 08:01 Sulfa (Sulfonamide Allergy Unknown Verified 03/08/20 08:01 Antibiotics) Physical Exam Vitals: Vital Signs Temp Pulse Pulse Resp BP BP Pulse Ox 03/08/20 11:30 97.8 F 78 18 103/41 98 03/08/20 08:00 98.7 F 98 16 94/52 100 03/08/20 07:44 103 H 18 03/08/20 07:36 98.9 F 101 H 20 97/43 100 03/08/20 07:31 105 H 18 03/08/20 07:20 101 H 18 99/60 99 03/08/20 07:15 101 H 18 98/54 99 03/08/20 07:10 101 H 18 103/62 99 03/08/20 07:05 105 H 18 100/55 99 03/08/20 07:00 110 H 18 105/54 99 03/08/20 06:45 130 H 18 103/56 99 03/08/20 06:30 102 H 18 98/52 98 03/08/20 06:00 134 H 18 104/60 100 03/08/20 05:15 138 H 18 108/51 100 03/08/20 05:00 135 H 18 111/54 100 03/08/20 04:45 115 H 18 102/60 100 03/08/20 04:41 152 H 18 98/47 96 03/08/20 04:03 24 03/08/20 03:56 98.2 F 61 20 91/69 92 L Intake and Output 03/08/20 03/08/20 03/08/20 06:59 14:59 22:59 Intake Total 100 Balance 100 Intake: Intake, IV Titration 100 Amount Azithromycin 500 mg In 100 Sodium Chloride 0.9% 250 ml @ 125 mls/hr IVPB ONCE STA Rx#:[id number] Oral 0 Other: Voiding Method Diaper Weight 39.463 kg 37.5 kg - Constitutional General appearance: average body habitus, disheveled - EENT Eyes: PERRLA Ears: bilateral: normal - Neck Neck: normal ROM Carotids: bilateral: upstroke normal - Respiratory Respiratory: bilateral: diminished - Cardiovascular Rhythm: regular Heart sounds: normal: S1, S2 - Gastrointestinal General gastrointestinal: normal bowel sounds - Neurologic Neurologic: CNII-XII intact - Musculoskeletal Musculoskeletal: gait normal, generalized weakness - Psychiatric Psychiatric: A&O x's 3 Results CBC & Chem 7: 03/08/20 04:20 03/08/20 04:08 Labs: Abnormal Lab Results - Last 24 Hours (Table) 03/08/20 03/08/20 03/08/20 Range/Units 04:08 04:08 04:08 WBC (3.8-10.6) k/uL RBC (3.80-5.40) m/uL Hgb (11.4-16.0) gm/dL Hct (34.0-46.0) % RDW (11.5-15.5) % Plt Count (150-450) k/uL Neutrophils # (1.3-7.7) k/uL Lymphocytes # (1.0-4.8) k/uL D-Dimer 1.61 H (<0.60) mg/L FEU Chloride 108 H (98-107) mmol/L Carbon Dioxide 18 L (22-30) mmol/L BUN 47 H (7-17) mg/dL Creatinine 2.64 H (0.52-1.04) mg/dL Glucose 188 H (74-99) mg/dL Plasma Lactic Acid Afshin 4.9 H* (0.7-2.0) mmol/L ALT 35 H (4-34) U/L Alkaline Phosphatase 151 H (38-126) U/L Albumin 3.4 L (3.5-5.0) g/dL 03/08/20 Range/Units 04:20 WBC 14.0 H (3.8-10.6) k/uL RBC 2.64 L (3.80-5.40) m/uL Hgb 8.1 L (11.4-16.0) gm/dL Hct 26.1 L (34.0-46.0) % RDW 16.4 H (11.5-15.5) % Plt Count 134 L (150-450) k/uL Neutrophils # 12.8 H (1.3-7.7) k/uL Lymphocytes # 0.5 L (1.0-4.8) k/uL D-Dimer (<0.60) mg/L FEU Chloride (98-107) mmol/L Carbon Dioxide (22-30) mmol/L BUN (7-17) mg/dL Creatinine (0.52-1.04) mg/dL Glucose (74-99) mg/dL Plasma Lactic Acid Afshin (0.7-2.0) mmol/L ALT (4-34) U/L Alkaline Phosphatase (38-126) U/L Albumin (3.5-5.0) g/dL Chest x-ray: report reviewed, image reviewed Thrombosis Risk Factor Assmnt - Choose All That Apply Each Factor Represents 1 point: Abnormal pulmonary function (COPD) Each Risk Factor Represents 2 Points: Age 61-74 years Thrombosis Risk Factor Assessment Total Risk Factor Score: 3 Thrombosis Risk Factor Assessment Level: Moderate Risk Assessment and Plan Assessment: Right upper lobe pneumonia Acute exacerbation of congestive heart failure likely diastolic heart failure Atrial flutter fibrillation likely related to sepsis Immune suppressed is status due to multiple myeloma Chronic anemia Acute kidney injury Sepsis due to lactic acidosis due to above Rheumatoid arthritis hypertension hypertensive cardiovascular disease History of CVA Dyslipidemia Plan: Gentle rehydration Broad-spectrum antibiotics Supplemental oxygen Bronchodilator Cardiovascular and pulmonary consultation Resume home medications Time with Patient: Greater than 30
[2020-03-08] MEDS: POTASSIUM CHLORIDE ER 20 MEQ TAB.ER PO SCH (15:44)
[2020-03-08] MEDS: APIXABAN 2.5 MG TABLET PO SCH ×2 (15:44→20:20)
[2020-03-08] MEDS: CALCIUM CARB-VIT D 500 MG-5 MCG TAB PO SCH (15:45)
[2020-03-08] MEDS: SODIUM BICARBONATE TAB 650 MG TAB PO SCH ×2 (15:45→20:20)
[2020-03-08] MEDS: METOPROLOL TARTRATE 25 MG TAB PO SCH ×2 (15:46→20:20)
[2020-03-08] MEDS: SERTRALINE 100 MG TAB PO SCH (15:46)
[2020-03-08] MEDS: AZTREONAM 1 GM in SODIUM CHLORIDE 0.9% 50 ML IVPB SCH ×2 (15:52→23:47)
[2020-03-08 19:37] LABS: Appearance,Urine Clear (Clear); Bilirubin,Urine Negative (Negative); Blood,Urine Negative (Negative); Color,Urine Yellow; Glucose,Urine (UA) Negative (Negative); Ketones,Urine Negative (Negative); Leukocyte Esterase,Urine Negative (Negative); Nitrite,Urine Negative (Negative); PH, Urine 5.5 (5.0-8.0); Protein,Urine Trace (Negative); Specific Gravity,Urine 1.015 (1.001-1.035); Urobilinogen,Urine <2.0 mg/dL (<2.0)
[2020-03-08] MEDS: LATANOPROST 0.005% OPHTH DROPS 2.5 ML BTL BOTH EYES SCH (20:20)
--- NOTE | 2020-03-08 23:29 | CONS ---
CONSULTATION DATE OF SERVICE: 03/08/2020 REASON FOR STAY: Pneumonia and MULTIPLE ANTIBIOTIC ALLERGIES. HISTORY OF PRESENT ILLNESS: The patient is a 69-year-old female with a past medical history of COPD, CHF in this patient who presented to the ER at [facility] last night for evaluation of increasing shortness of breath. The patient's symptoms have been getting worse for the last 3 days before presenting to the hospital. The patient also complained of some right-sided chest pain, more of a dull aching and no radiation. The patient denies any nausea. No vomiting. No choking on food. No abdominal pain. No diarrhea. The patient also had minimal cough, not bringing up any sputum. With these symptoms, the patient was evaluated by the ER physician. On arrival to the ER, the patient was afebrile. The patient did have white count of 14,000 with a left shift. Urine was negative. Morris PCR was negative. Kidney function, creatinine was 2.64. Lactic acid was 4.9, ALT was 35. Urine negative, Morris PCR was negative. The patient did have a chest x-ray reported by radiologist with severe infiltration throughout the right upper lobe likely within the superior segment of the right lower lobe. The patient did have an ALLERGIES TO PENICILLIN, CEPHALOSPORIN AND as well as SULFA. She has been admitted to the hospital. She was started on Zithromax and Azactam. Infectious Disease was consulted for further management of antibiotic therapy. REVIEW OF SYSTEMS: Positive points have been mentioned in HPI. Rest of the systems are negative. PAST MEDICAL HISTORY: Multiple myeloma, COPD, CHF, atrial fibrillation, atrial flutter, history of pneumonia, rheumatoid arthritis. PAST SURGICAL HISTORY: Back surgery, lumbar fusion/ cancer and breast implants. SOCIAL HISTORY: Remote history of smoking. No drinking or drug use. FAMILY HISTORY: Father from pneumonia. Mother with history of lung cancer. ALLERGIES: TO PENICILLIN, CEPHALOSPORIN, CIPROFLOXACIN, SULFA WITH RASH. MEDICATIONS: Currently include the patient is on Ventolin, DuoNeb, Eliquis, and Zithromax, Aztreonam, Symbicort, Rocaltrol, Lopressor, K-Dur, Zoloft. PHYSICAL EXAMINATION: Blood pressure 119/43 with a pulse of 80, temperature 98.1. She is 100% on 2 L nasal cannula. General description is an elderly female lying in bed in no distress. No tachypnea or accessory muscles of respiration use. HEENT: Examination shows slight pallor. No scleral icterus. Oral mucous membranes dry. No pharyngeal erythema or thrush. NECK: Trachea central. No thyromegaly. Lungs unlabored breathing, decreased intensity of breath sounds. No wheeze. HEART: S1, S2. Regular rate and rhythm. Abdomen soft. No tenderness. No guarding. No rigidity. Extremities: No edema of the feet. masses palpable. Neurological: Patient is awake, alert, oriented. Mood and affect normal. LABS: Hemoglobin is 8.1, white count 45359. BUN of 47, creatinine 2.6. Electrolytes have been normal. 4.9, 0.8. DIAGNOSTIC IMPRESSION AND PLAN: Patient admitted to the hospital with sepsis in this patient who did have increasing shortness of breath and elevated lactic acid with evidence of right lower lobe pneumonia possible community-acquired in this patient who did have MULTIPLE ANTIBIOTIC ALLERGIES that limit the number of antibiotics that will be safe to use. PLAN: 1. We will try to obtain sputum for Gram stain and culture. 2. Check procalcitonin and CRP. 3. Continue with aztreonam and azithromycin at this point. 4. We will follow on clinical condition and culture to further adjust medication if needed. Thank you for this consultation. Will follow this patient along with you. MMMELISSAL / CHARLINEN: [id number] /
[2020-03-09] MEDS: SODIUM CHLORIDE 0.9% 1,000 ML IV SCH ×3 (06:12→20:24)
[2020-03-09] MEDS: SYMBICORT 160-4.5 MCG INHALER INHALATION SCH ×2 (07:30→19:14)
[2020-03-09] MEDS: IPRATROPIUM-ALBUTEROL 3 ML NEB INHALATION SCH ×4 (07:30→19:14)
[2020-03-09] MEDS: AZTREONAM 1 GM in SODIUM CHLORIDE 0.9% 50 ML IVPB SCH ×3 (09:10→22:50)
[2020-03-09] MEDS: NON FORMULARY DRUG (Lenalidomide [Revlimid] 5 MG Capsule) PO SCH (09:10)
[2020-03-09] MEDS: AZITHROMYCIN 500 MG in SODIUM CHLORIDE 0.9% 250 ML IVPB SCH (09:10)
[2020-03-09] MEDS: CALCIUM CARB-VIT D 500 MG-5 MCG TAB PO SCH (12:47)
[2020-03-09] MEDS: APIXABAN 2.5 MG TABLET PO SCH ×2 (12:47→20:20)
[2020-03-09] MEDS: SODIUM BICARBONATE TAB 650 MG TAB PO SCH ×2 (12:47→20:22)
[2020-03-09] MEDS: SERTRALINE 100 MG TAB PO SCH (12:49)
[2020-03-09] MEDS: METOPROLOL TARTRATE 25 MG TAB PO SCH ×2 (12:49→20:20)
[2020-03-09] MEDS: POTASSIUM CHLORIDE ER 20 MEQ TAB.ER PO SCH (12:49)
--- NOTE | 2020-03-09 15:05 | P.PN ---
Subjective This is a pleasant 69-year-old female who presented to the hospital with FanyJanette jose alfredo with RVR. She has subsequently spontaneously converted back to sinus mechanism. She is seen and examined resting comfortably in no acute distress. She continues to feel short of breath and is coughing. She denies chest pain, dizziness or palpitations. Blood pressure 119/47 heart rate 85 afebrile maintaining oxygen saturation on nasal cannula. Laboratory data reviewed, pro-calcitonin level is 1.84 and C-reactive protein 195. She is currently maintained on IV antibiotics. GENERAL: Well-appearing, well-nourished and in no acute distress. NECK: Supple without JVD or thyromegaly. LUNGS: Breath sounds clear to auscultation bilaterally. Respiration equal and unlabored. No wheezes, rales or rhonchi. Diminished bilaterally. HEART: Regular rate and rhythm without murmurs, rubs or gallops. S1 and S2 heard. EXTREMITIES: Normal range of motion, no edema. No clubbing or cyanosis. Peripheral pulses intact. ASSESSMENT Right upper lobe pneumonia Paroxysmal atrial fibrillation with RVR, resolved. Currently maintaining sinus mechanism Acute exacerbation of COPD Chronic kidney disease PLAN Follow up on results of echocardiogram. Continue eliquis and beta blockers as previously ordered. Nurse Practitioner note has been reviewed, I agree with a documented findings and plan of care. Patient was seen and examined. Objective - Vital Signs Vital signs: Vital Signs Temp 98.1 F 03/09/20 08:00 Pulse 85 03/09/20 12:12 Resp 18 03/09/20 08:00 BP 119/47 03/09/20 08:00 Pulse Ox 99 03/09/20 08:00 Intake & Output 03/08/20 03/09/20 03/09/20 18:59 06:59 18:59 Intake Total 2487 632 4314 Output Total 500 Balance 1100 -400 1200 Weight 37.5 kg 38 kg Intake: Intake, IV Titration 1100 Amount Azithromycin 500 mg In 100 Sodium Chloride 0.9% 250 ml @ 125 mls/hr IVPB ONCE STA Rx#:[id number] Sodium Chloride 0.9% 1, 1000 000 ml @ 130 mls/hr IV . Q7H42M [facility] Rx#:[id number] Oral 0 100 1200 Output: Urine 500 Straight 500 Post Void Residual 0 Other: Voiding Method Diaper Diaper Diaper # Voids 0 # Bowel Movements 2 - Labs CBC & Chem 7: 03/08/20 04:20 03/08/20 04:08 Labs: Abnormal Lab Results - Last 24 Hours (Table) 03/08/20 03/09/20 03/09/20 Range/Units 19:13 06:36 06:36 C-Reactive Protein 195.1 H (<10.0) mg/L Procalcitonin 1.84 H (0.02-0.09) ng/mL Urine Protein Trace H (Negative) Microbiology - Last 24 Hours (Table) 03/08/20 06:45 Blood Culture - Preliminary Blood No Growth after 24 hours 03/08/20 06:30 Blood Culture - Preliminary Blood No Growth after 24 hours
--- NOTE | 2020-03-09 15:23 | P.PN ---
Subjective Progress Note Date: 03/09/20 Principal diagnosis: Shortness of breath, right-sided chest discomfort This a very pleasant 69-year-old female patient who follows with Dr. Villalobos as her primary care provider. She has a history of atrial fibrillation/flutter, congestive heart failure, chronic obstructive pulmonary disease with chronic hypoxic respiratory failure, CVA/TIA, hypertension, hyperlipidemia, rheumatoid arthritis, COPD with previous chronic tobacco dependence. She also has a history of multiple myeloma and is currently on Revlimid. She follows with Dr. Larson in this regard. She presented here to the emergency room early this morning with a 2-3 day history of increasing shortness of breath cough congestion chest tightness in the right upper chest and wheezing. No fever, chills or night swea ts. No nausea vomiting or diarrhea. CoVID 19 not detected. Chest x-ray reveals evidence of a right upper lobe pneumonia. She was initiated on Rocephin and Zithromax and admitted for the same. She was also found to be in atrial flutter with a rapid ventricular response and started on Cardizem drip at 5 mg per hour. She has 0.9 normal saline at 130 ML's per hour. Her lactic acid initially was for currently down to 0.8. She is maintaining O2 saturations up to 100% on 2 L/m per nasal cannula. White count 14.0. Hemoglobin 8.1. Platelet count 134. D-dimer 1.61. Sodium 139. Potassium 4.2. Bicarb 18. Creatinine 2.64. Glucose 188. Troponin 0.014. ProBNP 2540. VQ scan pending. She is seen this morning in consultation on the selective care unit. She is currently resting flat in bed. Awake and alert in no acute distress. Feeling a bit better today compared to yesterday. Still with a loose nonproductive cough. Remains afebrile. Heart rate better controlled currently in sinus rhythm. Hemodynamically stable. On 03/09/2020 patient seen in follow-up on selective care unit, she is awake and alert, in no acute distress, she is on 2 L of oxygen per pulse ox of 99%, she does have a congested cough, but she denies any worsening dyspnea, she has no complaints of chest discomfort, she seems to be comfortably, she has been afebrile. She states at times she is bringing up some whitish colored phlegm, no hemoptysis, she is being treated for right upper lobe pneumonia, with a combination of azithromycin and aztreonam. So far her blood culture data has been negative. She tested negative for COVID 19, today's labs have been reviewed showing CRP of 195, and pro-calcitonin level of 1.84. Objective - Vital Signs Vital signs: Vital Signs Temp 98.1 F 03/09/20 08:00 Pulse 85 03/09/20 12:12 Resp 18 03/09/20 08:00 BP 119/47 03/09/20 08:00 Pulse Ox 99 03/09/20 08:00 Intake & Output 03/08/20 03/09/20 03/09/20 18:59 06:59 18:59 Intake Total 5817 321 1504 Output Total 500 Balance 1100 -400 1200 Weight 37.5 kg 38 kg Intake: Intake, IV Titration 1100 Amount Azithromycin 500 mg In 100 Sodium Chloride 0.9% 250 ml @ 125 mls/hr IVPB ONCE STA Rx#:[id number] Sodium Chloride 0.9% 1, 1000 000 ml @ 130 mls/hr IV . Q7H42M [facility] Rx#:[id number] Oral 0 100 1200 Output: Urine 500 Straight 500 Post Void Residual 0 Other: Voiding Method Diaper Diaper Diaper # Voids 0 # Bowel Movements 2 - Exam GENERAL EXAM: Alert, very pleasant, 61-year-old frail looking white female on 2 L of oxygen with pulse ox of 99% comfortable in no apparent distress. HEAD: Normocephalic/atraumatic. EYES: Normal reaction of pupils, equal size. Conjunctiva pink, sclera white. NOSE: Clear with pink turbinates. THROAT: No erythema or exudates. NECK: No masses, no JVD, no thyroid enlargement, no adenopathy. CHEST: No chest wall deformity. Symmetrical expansion. LUNGS: Equal air entry with diminished breath over right upper lobe, wheeze, rho nchi or dullness. CVS: Regular rate and rhythm, normal S1 and S2, no gallops, no murmurs, no rubs ABDOMEN: Soft, nontender. No hepatosplenomegaly, normal bowel sounds, no guarding or rigidity. EXTREMITIES: No clubbing, no edema, no cyanosis, 2+ pulses and upper and lower extremities. MUSCULOSKELETAL: Muscle strength and tone normal. SPINE: No scoliosis or deformity SKIN: No rashes CENTRAL NERVOUS SYSTEM: Alert and oriented -3. No focal deficits, tone is normal in all 4 extremities. PSYCHIATRIC: Alert and oriented -3. Appropriate affect. Intact judgment and insight. - Labs CBC & Chem 7: 03/08/20 04:20 03/08/20 04:08 Labs: Abnormal Lab Results - Last 24 Hours (Table) 03/08/20 03/09/20 03/09/20 Range/Units 19:13 06:36 06:36 C-Reactive Protein 195.1 H (<10.0) mg/L Procalcitonin 1.84 H (0.02-0.09) ng/mL Urine Protein Trace H (Negative) Microbiology - Last 24 Hours (Table) 03/08/20 06:45 Blood Culture - Preliminary Blood No Growth after 24 hours 03/08/20 06:30 Blood Culture - Preliminary Blood No Growth after 24 hours Assessment and Plan Plan: 1 Acute hypoxic respiratory failure secondary to an acute right upper lung the pneumonia, suspect community-acquired in a compromised patient 2 Right-sided atypical chest pain secondary to above 3 Leukocytosis secondary to above 4 Anemia, current hemoglobin 8.1 5 Acute renal failure, current creatinine 2.64, suspect dehydration 6 Lactic acidosis secondary to above, recovered 7 Multiple myeloma with abnormal uptake associated sedated with the patient's right lower lobe lung mass, currently on Revlimid 8 Chronic obstructive pulmonary disease with previous chronic tobacco dependence 9 Acute on chronic kidney disease, stage IIIIV 10 History of diastolic congestive heart failure 11 Paroxysmal atrial fibrillation/flutter with RVR, on a Cardizem drip, currently in sinus rhythm and maintained on Eliquis 12 Previous history of CVA 13 Hypertension 14 Hyperlipidemia 15 Chronic anxiety Plan: Continue current antibiotic coverage, including azithromycin and Azactam, send a sputum culture, continue bronchodilators, u do a follow-up chest x-ray in 48 hours. Clinically feeling better, no worsening dyspnea, we'll continue to foll ow I performed a history & physical examination of the patient and discussed their management with my nurse practitioner, Bere Alves. I reviewed the nurse practitioner's note and agree with the documented findings and plan of care. Lung sounds are positive for diminished breath sounds over right upper lobe. The findings and the impression was discussed with the patient. I attest to the documentation by the nurse practitioner. Time with Patient: Less than 30
[2020-03-09] MEDS: LATANOPROST 0.005% OPHTH DROPS 2.5 ML BTL BOTH EYES SCH (20:23)
--- NOTE | 2020-03-09 21:37 | P.PN ---
Progress Note - Text Progress Note Date: 03/09/20 Interval history: This is a very pleasant 69-year-old patient of Dr. Villalobos. Chronic stable me dical conditions include paroxysmal atrial flutter fibrillation, , CHF with an EF of 50-55%, tricuspid and mitral regurgitation, secondary pulmonary hypertension, chronic kidney disease stage IV, hypertension, hyperlipidemia,. Patient also being treated for multiple myeloma. on REVLIMID Patient presented with shortness of breath confusion cough congestion. Admitted with right upper lobe pneumonia, acute delirium. Started on IV aztreonam and azithromycin. Today-laying in bed. Tired. Some oral intake. Congested cough. Review of systems: Was done for constitutional, cardiovascular, GI, pulmonary. relevant finding as above Active Medications Albuterol Sulfate (Albuterol Nebulized 2.5 Mg/3 Ml) 2.5 mg INHALATION RT-Q4H PRN PRN Reason: Shortness Of Breath Or Wheezing Albuterol/Ipratropium (Ipratropium-Albuterol 3 Ml Neb) 3 ml INHALATION RT-QID [facility] Last Admin: 03/09/20 19:14 Dose: Not Given Documented by: Apixaban (Apixaban 2.5 Mg Tablet) 2.5 mg PO BID@1200,2100 [facility] Last Admin: 03/09/20 20:20 Dose: 2.5 mg Documented by: Budesonide/Formoterol Fumarate (Symbicort 160-4.5 Mcg Inhaler) 2 puff INHALATION RT-BID [facility] Last Admin: 03/09/20 19:14 Dose: Not Given Documented by: Calcitriol (Calcitriol 0.25 Mcg Cap) 0.25 mcg PO PC-LUNCH [facility] Last Admin: 03/09/20 12:47 Dose: 0.25 mcg Documented by: Calcium Carbonate (Calcium Carb-Vit D 500mg-200un 1 Each Tab) 2 each PO DAILY@1200 [facility] Last Admin: 03/09/20 12:47 Dose: 2 each Documented by: Sodium Chloride (Saline 0.9%) 1,000 mls @ 130 mls/hr IV .Q7H42M [facility] Last Admin: 03/09/20 20:24 Dose: 130 mls/hr Documented by: Azithromycin 500 mg/ Sodium (Chloride) 250 mls @ 250 mls/hr IVPB DAILY [facility] Stop: 03/13/20 09:01 Last Admin: 03/09/20 09:10 Dose: 250 mls/hr Documented by: Aztreonam 1 gm/ Sodium (Chloride) 50 mls @ 16.667 mls/hr IVPB Q8HR [facility] Last Admin: 03/09/20 17:23 Dose: 16.667 mls/hr Documented by: Latanoprost (Latanoprost 0.005% Ophth Drops 2.5 Ml Btl) 1 drops [facility] Last Admin: 03/09/20 20:23 Dose: 1 drops Documented by: Metoprolol Tartrate (Metoprolol Tartrate 25 Mg Tab) 25 mg PO BID@1200,2100 [facility] Last Admin: 03/09/20 20:20 Dose: 25 mg Documented by: Miscellaneous Information (Pneumonia Protocol Utilized 1 Each Misc) 1 each PO ONCE PRN PRN Reason: Per Protocol Non-Formulary Medication (Lenalidomide [Revlimid]) 5 mg PO Q48H [facility] Last Admin: 03/09/20 09:10 Dose: Not Given Documented by: Potassium Chloride (Potassium Chloride Er 20 Meq Tab.Er) 20 meq PO PC-LUNCH [facility] Last Admin: 03/09/20 12:49 Dose: 20 meq Documented by: Sertraline HCl (Sertraline 100 Mg Tab) 200 mg PO PC-LUNCH [facility] Last Admin: 03/09/20 12:49 Dose: 200 mg Documented by: Sodium Bicarbonate (Sodium Bicarbonate Tab 650 Mg Tab) 1,300 mg PO DAILY@1200 [facility] Last Admin: 03/09/20 12:47 Dose: 1,300 mg Documented by: Sodium Bicarbonate (Sodium Bicarbonate Tab 650 Mg Tab) 650 mg PO [facility] Last Admin: 03/09/20 20:22 Dose: 650 mg Documented by: Physical examination: VITAL SIGNS: 98.1, 86, 18, 119/47, 99% on 2 L GENERAL: Laying in bed, tired EYES: Pupils equal. Conjunctiva pale HEENT: External appearance of nose and ears normal, oral cavity grossly normal. NECK: JVD not raised; masses not palpable. HEART: First and second heart sounds are normal; no edema. LUNGS: Respiratory rate increased, decreased breath sounds , ABDOMEN: Soft, nontender, liver spleen not palpable, no masses palpable. PSYCH: Alert and oriented x3; mood and affect tired. MUSCULOSKELETAL: Diffuse wasting of muscles Investigations, reviewed in the clinical context: Pro-calcitonin 1.84 White count 14 hemoglobin 8.1 platelets 134 potassium 4.2 BUN 47 creatinine 2.64 Lactic acid 4.9 Coronavirus P/Cr-not detected VQ scan-low probability for PE EKG tracing personally reviewed by me-normal sinus rhythm some ST segment changes Chest [id number] infiltrate throughout the right upper lobe and the superior segment of the right lower lobe Assessment: -Right upper lobe pneumonia, suspect gram-negative organism in an immunosuppressed patient, , POA,-slow to respond -Paroxysmal atrial flutter and fibrillation-with rapid ventricular rate then went back into sinus rhythm -Anemia multifactorial including that of chronic disease including multiple myeloma -Acute COPD exacerbation in a ex-smoker, -Chronic congestive heart failure from systolic and diastolic dysfunction EF 50- 55% -Moderate tricuspid and severe mitral regurgitation, nontraumatic -Severe secondary pulmonary hypertension secondary to CHF and COPD -Multiple myeloma on chemotherapy -Chronic kidney disease secondary to multiple myeloma stage IV and chronic interstitial nephropathy -Essential hypertension -Hyperlipidemia -Severe protein calorie malnutrition due to poor oral intake. BMI 14.4 -Chronic medical debility -Multiple old rib fractures due to multiple myeloma -Normocytic anemia due to multiple myeloma and chronic kidney disease Plan: DuoNeb every 4. Continue with IV antibiotics to include IVaztreonam and Zithromax. Decrease IV fluids. Add Mucinex. Discussed with patient
[2020-03-09] MEDS: guaiFENesin 600 MG TABLET.ER PO SCH ×2 (22:50→23:02)
--- NOTE | 2020-03-09 23:46 | PN ---
PROGRESS NOTE DATE OF SERVICE: 03/09/2020 REASON FOR FOLLOWUP: Pneumonia with multiple antibiotic allergies. INTERVAL HISTORY: Patient is currently afebrile. Patient is breathing more comfortably. The patient denies any chest pain. She did have some cough, not bringing up any sputum. No nausea. No vomiting. No abdominal pain. No diarrhea. PHYSICAL EXAMINATION: Blood pressure 118/50 with a pulse of 74, temperature 99. She is 98% on 2 L nasal cannula. General description is an elderly female up in the bed in no distress. Respiratory system: Unlabored breathing, decreased breath sounds in the bases. No wheeze. Heart S1, S2. Regular rate and rhythm. Abdomen soft, no tenderness. LAB: CRP is 195 with procalcitonin 1.84. DIAGNOSTIC IMPRESSION AND PLAN: Patient with right lower lobe pneumonia in this patient who did have MULTIPLE ANTIBIOTIC ALLERGIES. Patient is currently covered with Azactam and Zithromax because of multiple antibiotic allergies to continue. Try to obtain a sputum to narrow down antibiotics and continue supportive care. MMODL / IJN: [id number] /
[2020-03-10] MEDS: IPRATROPIUM-ALBUTEROL 3 ML NEB INHALATION SCH ×8 (00:18→20:16)
[2020-03-10] MEDS: SODIUM CHLORIDE 0.9% 1,000 ML IV SCH ×3 (05:17→20:17)
[2020-03-10] MEDS: AZTREONAM 1 GM in SODIUM CHLORIDE 0.9% 50 ML IVPB SCH ×3 (09:08→23:16)
[2020-03-10] MEDS: guaiFENesin 600 MG TABLET.ER PO SCH ×3 (09:08→23:16)
[2020-03-10] MEDS: SYMBICORT 160-4.5 MCG INHALER INHALATION SCH ×2 (09:14→20:16)
--- NOTE | 2020-03-10 10:30 | ECHOF ---
Referral Reason:afib MEASUREMENTS -------- HEIGHT: 162.6 cm WEIGHT: 37.6 kg BP: RVIDd: 2.6 cm (< 3.3) IVSd: 0.9 cm (0.6 - 1.1) LVIDd: 3.8 cm (3.9 - 5.3) LVPWd: 1.1 cm (0.6 - 1.1) IVSs: 1.3 cm LVIDs: 1.9 cm LVPWs: 1.3 cm LA Diam: 3.3 cm (2.7 - 3.8) Ao Diam: 2.6 cm (2.0 - 3.7) AV Cusp: 1.8 cm (1.5 - 2.6) LA Diam: 4.0 cm (2.7 - 3.8) MV EXCURSION: 17.180 mm (> 18.000) MV EF SLOPE: 56 mm/s (70 - 150) MV E Toney: 0.70 m/s MV DecT: 234 ms MV A Toney: 0.84 m/s MV E/A Ratio: 0.83 RAP: 5.00 mmHg RVSP: 40.20 mmHg FINDINGS -------- Sinus rhythm. This was a technically adequate study. LV size, wall thickness and systolic function are normal, with an EF greater than 55%. The left hailey tricular size is normal. The right ventricle is normal in size. The left atrial size is normal. The right atrial size is normal. The aortic valve is trileaflet, and appears structurally normal. No aortic stenosis or regurgitation. Mild mitral regurgitation is present. Mild tricuspid regurgitation present. There is mild pulmonary hypertension. The right ventricular systolic pressure, as measured by Doppler, is 40.20mmHg. There is no pulmonic regurgitation present. The aortic root size is normal. There is no pericardial effusion. CONCLUSIONS -------- 1. LV size, wall thickness and systolic function are normal, with an EF greater than 55%. 2. The left ventricular size is normal. 3. The right ventricle is normal in size. 4. The left atrial size is normal. 5. The right atrial size is normal. 6. Mild mitral regurgitation is present. 7. Mild tricuspid regurgitation present. 8. There is mild pulmonary hypertension. 9. The right ventricular systolic pressure, as measured by Doppler, is 40.20mmHg. 10. There is no pulmonic regurgitation present. 11. The aortic root size is normal. 12. There is no pericardial effusion. MINE PATROL: Monica Sorenson RDCS
--- NOTE | 2020-03-10 11:56 | P.PN ---
Subjective This is a pleasant 69-year-old female who presented to the hospital with Sophia veliz with RVR. She has subsequently spontaneously converted back to sinus mechanism. She continues to maintain sinus rhythm on the monitor. She is seen and examined resting comfortably laying flat in bed in no acute distress. She denies chest pain or palpitations. Blood pressure 123/65 heart rate 84 afebrile maintaining oxygen saturation on room air. Echocardiogram obtained reveals preserved LV systolic function with ejection fraction greater than 55%, mild mitral regurgitation, mild tricuspid regurgitation and mild pulmonary hypertension with RVSP of 40 mmHg. GENERAL: Well-appearing, well-nourished and in no acute distress. NECK: Supple without JVD or thyromegaly. LUNGS: Breath sounds clear to auscultation bilaterally. Respiration equal and unlabored. No wheezes, rales or rhonchi. Diminished bilaterally. HEART: Regular rate and rhythm without murmurs, rubs or gallops. S1 and S2 heard. EXTREMITIES: Normal range of motion, no edema. No clubbing or cyanosis. Peripheral pulses intact. ASSESSMENT Right upper lobe pneumonia Paroxysmal atrial fibrillation with RVR, resolved. Currently maintaining sinus mechanism Acute exacerbation of COPD Chronic kidney disease PLAN Clinically stable from a cardiac perspective. She continues to maintain sinus rhythm on the monitor. Continue eliquis and beta blockers as previously ordered. We will follow along as needed, follow-up with Dr. Morse upon discharge. Nurse Practitioner note has been reviewed, I agree with a documented findings and plan of care. Patient was seen and examined. Objective - Vital Signs Vital signs: Vital Signs Temp 98.1 F 03/10/20 04:00 Pulse 84 03/10/20 09:26 Resp 18 03/10/20 04:00 BP 135/69 03/10/20 04:00 Pulse Ox 92 L 03/10/20 09:15 Intake & Output 03/09/20 03/10/20 03/10/20 18:59 06:59 18:59 Intake Total 1680 240 480 Output Total 2 1 Balance 1678 239 480 Weight 38 kg Intake: Oral 1680 240 480 Output: Urine 2 Stool 1 Other: Voiding Method Diaper Diaper # Voids 1 # Bowel Movements 3 2 - Labs CBC & Chem 7: 03/08/20 04:20 03/08/20 04:08 Labs: Microbiology - Last 24 Hours (Table) 03/08/20 06:45 Blood Culture - Preliminary Blood No Growth after 48 hours 03/08/20 06:30 Blood Culture - Preliminary Blood No Growth after 48 hours
[2020-03-10] MEDS: CALCIUM CARB-VIT D 500 MG-5 MCG TAB PO SCH (11:58)
[2020-03-10] MEDS: SERTRALINE 100 MG TAB PO SCH (11:58)
[2020-03-10] MEDS: SODIUM BICARBONATE TAB 650 MG TAB PO SCH ×2 (11:58→20:17)
[2020-03-10] MEDS: AZITHROMYCIN 500 MG in SODIUM CHLORIDE 0.9% 250 ML IVPB SCH (11:58)
[2020-03-10] MEDS: APIXABAN 2.5 MG TABLET PO SCH ×2 (11:59→20:17)
[2020-03-10] MEDS: METOPROLOL TARTRATE 25 MG TAB PO SCH ×2 (11:59→20:16)
[2020-03-10] MEDS: POTASSIUM CHLORIDE ER 20 MEQ TAB.ER PO SCH (11:59)
--- NOTE | 2020-03-10 15:05 | P.PN ---
Subjective Progress Note Date: 03/10/20 Principal diagnosis: Shortness of breath, right-sided chest discomfort This a very pleasant 69-year-old female patient who follows with Dr. Villalobos as her primary care provider. She has a history of atrial fibrillation/flutter, congestive heart failure, chronic obstructive pulmonary disease with chronic hypoxic respiratory failure, CVA/TIA, hypertension, hyperlipidemia, rheumatoid arthritis, COPD with previous chronic tobacco dependence. She also has a history of multiple myeloma and is currently on Revlimid. She follows with Dr. Larson in this regard. She presented here to the emergency room early this morning with a 2-3 day history of increasing shortness of breath cough congestion chest tightness in the right upper chest and wheezing. No fever, chills or night swea ts. No nausea vomiting or diarrhea. CoVID 19 not detected. Chest x-ray reveals evidence of a right upper lobe pneumonia. She was initiated on Rocephin and Zithromax and admitted for the same. She was also found to be in atrial flutter with a rapid ventricular response and started on Cardizem drip at 5 mg per hour. She has 0.9 normal saline at 130 ML's per hour. Her lactic acid initially was for currently down to 0.8. She is maintaining O2 saturations up to 100% on 2 L/m per nasal cannula. White count 14.0. Hemoglobin 8.1. Platelet count 134. D-dimer 1.61. Sodium 139. Potassium 4.2. Bicarb 18. Creatinine 2.64. Glucose 188. Troponin 0.014. ProBNP 2540. VQ scan pending. She is seen this morning in consultation on the selective care unit. She is currently resting flat in bed. Awake and alert in no acute distress. Feeling a bit better today compared to yesterday. Still with a loose nonproductive cough. Remains afebrile. Heart rate better controlled currently in sinus rhythm. Hemodynamically stable. On 03/09/2020 patient seen in follow-up on selective care unit, she is awake and alert, in no acute distress, she is on 2 L of oxygen per pulse ox of 99%, she does have a congested cough, but she denies any worsening dyspnea, she has no complaints of chest discomfort, she seems to be comfortably, she has been afebrile. She states at times she is bringing up some whitish colored phlegm, no hemoptysis, she is being treated for right upper lobe pneumonia, with a combination of azithromycin and aztreonam. So far her blood culture data has been negative. She tested negative for COVID 19, today's labs have been reviewed showing CRP of 195, and pro-calcitonin level of 1.84. On 03/10/2019 patient seen in follow-up on selective care unit. She reports feeling better on today's exam, she is resting comfortably in bed, still has a congested cough, not bringing up much phlegm, denies any chest pain denies any hemoptysis, she remains on 2 L pulse ox of 92%, monocytes signs have been stable, she's been afebrile, breathing seems to be nonlabored. She remains on bronchodilators, and Zithromax and Azactam for right upper lobe pneumonia, no new labs today, C. diff was negative, patient was ruled out for Covid 19, pro- calcitonin was still significantly elevated at 1.84 on yesterday's labs however patient also has a degree of renal impairment. No repeat labs today. Echocardiogram was completed today showing EF greater than 55%, mild MR, mild TR, mild pending hypertension with right-sided pressures of 40 mmHg. Objective - Vital Signs Vital signs: Vital Signs Temp 98.0 F 03/10/20 12:00 Pulse 84 03/10/20 14:00 Resp 14 03/10/20 14:00 BP 123/65 03/10/20 08:00 Pulse Ox 99 03/10/20 12:00 Intake & Output 03/09/20 03/10/20 03/10/20 18:59 06:59 18:59 Intake Total 9079 072 6789 Output Total 2 1 2 Balance 7363 662 1114 Weight 38 kg 38 kg Intake: Oral 5590 301 3416 Output: Urine 2 Stool 1 2 Other: Voiding Method Diaper Diaper Bedpan Diaper # Voids 1 1 # Bowel Movements 3 2 - Exam GENERAL EXAM: Alert, very pleasant, 61-year-old frail looking white female on 2 L of oxygen with pulse ox of 99% comfortable in no apparent distress. HEAD: Normocephalic/atraumatic. EYES: Normal reaction of pupils, equal size. Conjunctiva pink, sclera white. NOSE: Clear with pink turbinates. THROAT: No erythema or exudates. NECK: No masses, no JVD, no thyroid enlargement, no adenopathy. CHEST: No chest wall deformity. Symmetrical expansion. LUNGS: Equal air entry with diminished breath over right upper lobe, wheeze, rhonchi or dullness. CVS: Regular rate and rhythm, normal S1 and S2, no gallops, no murmurs, no rubs ABDOMEN: Soft, nontender. No hepatosplenomegaly, normal bowel sounds, no guarding or rigidity. EXTREMITIES: No clubbing, no edema, no cyanosis, 2+ pulses and upper and lower extremities. MUSCULOSKELETAL: Muscle strength and tone normal. SPINE: No scoliosis or deformity SKIN: No rashes CENTRAL NERVOUS SYSTEM: Alert and oriented -3. No focal deficits, tone is normal in all 4 extremities. PSYCHIATRIC: Alert and oriented -3. Appropriate affect. Intact judgment and insight. - Labs CBC & Chem 7: 03/08/20 04:20 03/08/20 04:08 Labs: Microbiology - Last 24 Hours (Table) 03/08/20 06:45 Blood Culture - Preliminary Blood No Growth after 48 hours 03/08/20 06:30 Blood Culture - Preliminary Blood No Growth after 48 hours Assessment and Plan Plan: Assessment: #1. Acute hypoxic respiratory failure secondary to an acute right upper lung the pneumonia, suspect community-acquired in a compromised patient #2. Right-sided atypical chest pain secondary to above #3. Leukocytosis secondary to above #4. Anemia, current hemoglobin 8.1 #5. Acute renal failure, current creatinine 2.64, suspect dehydration #6. Lactic acidosis secondary to above, recovered #7. Multiple myeloma with abnormal uptake associated sedated with the patient's right lower lobe lung mass, currently on Revlimid #8. Chronic obstructive pulmonary disease with previous chronic tobacco dependence #9. Acute on chronic kidney disease, stage IIIIV #10. History of diastolic congestive heart failure #11. Paroxysmal atrial fibrillation/flutter with RVR, on a Cardizem drip, currently in sinus rhythm and maintained on Eliquis #12. Previous history of CVA #13. Hypertension #14. Hyperlipidemia #15. Chronic anxiety Plan: Repeat chest x-ray in the morning, no worsening dyspnea, repeat blood work in the morning, continue same antibiotics. Continue to follow I performed a history & physical examination of the patient and discussed their management with my nurse practitioner, Bere Alves. I reviewed the nurse practitioner's note and agree with the documented findings and plan of care. Lung sounds are positive for diminished breath sounds over right upper lobe. The findings and the impression was discussed with the patient. I attest to the documentation by the nurse practitioner. Time with Patient: Less than 30
[2020-03-10] MEDS: LATANOPROST 0.005% OPHTH DROPS 2.5 ML BTL BOTH EYES SCH (20:17)
--- NOTE | 2020-03-10 22:52 | P.PN ---
Progress Note - Text Progress Note Date: 03/10/20 Interval history: This is a very pleasant 69-year-old patient of Dr. Villalobos. Chronic stable me dical conditions include paroxysmal atrial flutter fibrillation, , CHF with an EF of 50-55%, tricuspid and mitral regurgitation, secondary pulmonary hypertension, chronic kidney disease stage IV, hypertension, hyperlipidemia,. Patient also being treated for multiple myeloma. on REVLIMID Patient presented with shortness of breath confusion cough congestion. Admitted with right upper lobe pneumonia, acute delirium. Started on IV aztreonam and azithromycin. Today-feeling a bit better. Congested cough. Little expectoration. Eating better. Sitting up in bed. Review of systems: Was done for constitutional, cardiovascular, GI, pulmonary. relevant finding as above Active Medications Albuterol/Ipratropium (Ipratropium-Albuterol 3 Ml Neb) 3 ml INHALATION RT-Q4H S Last Admin: 03/10/20 20:16 Dose: 3 ml Documented by: Apixaban (Apixaban 2.5 Mg Tablet) 2.5 mg PO BID@1200,2100 [facility] Last Admin: 03/10/20 20:17 Dose: 2.5 mg Documented by: Budesonide/Formoterol Fumarate (Symbicort 160-4.5 Mcg Inhaler) 2 puff INHALATION RT-BID [facility] Last Admin: 03/10/20 20:16 Dose: 2 puff Documented by: Calcitriol (Calcitriol 0.25 Mcg Cap) 0.25 mcg PO PC-LUNCH [facility] Last Admin: 03/10/20 11:59 Dose: 0.25 mcg Documented by: Calcium Carbonate (Calcium Carb-Vit D 500mg-200un 1 Each Tab) 2 each PO DAILY@1200 [facility] Last Admin: 03/10/20 11:58 Dose: 2 each Documented by: Guaifenesin (Guaifenesin 600 Mg Tablet.Er) 600 mg PO Q8HR [facility] Last Admin: 03/10/20 16:00 Dose: 600 mg Documented by: Sodium Chloride (Saline 0.9%) 1,000 mls @ 130 mls/hr IV .Q7H42M [facility] Last Admin: 03/10/20 20:17 Dose: 130 mls/hr Documented by: Azithromycin 500 mg/ Sodium (Chloride) 250 mls @ 250 mls/hr IVPB DAILY [facility] Stop: 03/13/20 09:01 Last Admin: 03/10/20 11:58 Dose: 250 mls/hr Documented by: Aztreonam 1 gm/ Sodium (Chloride) 50 mls @ 16.667 mls/hr IVPB Q8HR [facility] Last Admin: 03/10/20 16:00 Dose: 16.667 mls/hr Documented by: Latanoprost (Latanoprost 0.005% Ophth Drops 2.5 Ml Btl) 1 drops BOTH EYES [facility] Last Admin: 03/10/20 20:17 Dose: 1 drops Documented by: Metoprolol Tartrate (Metoprolol Tartrate 25 Mg Tab) 25 mg PO BID@1200,2100 [facility] Last Admin: 03/10/20 20:16 Dose: 25 mg Documented by: Miscellaneous Information (Pneumonia Protocol Utilized 1 Each Misc) 1 each PO ONCE PRN PRN Reason: Per Protocol Non-Formulary Medication (Lenalidomide [Revlimid]) 5 mg PO Q48H [facility] Last Admin: 03/09/20 09:10 Dose: Not Given Documented by: Potassium Chloride (Potassium Chloride Er 20 Meq Tab.Er) 20 meq PO PC-LUNCH [facility] Last Admin: 03/10/20 11:59 Dose: 20 meq Documented by: Sertraline HCl (Sertraline 100 Mg Tab) 200 mg PO PC-LUNCH [facility] Last Admin: 03/10/20 11:58 Dose: 200 mg Documented by: Sodium Bicarbonate (Sodium Bicarbonate Tab 650 Mg Tab) 1,300 mg PO DAILY@1200 [facility] Last Admin: 03/10/20 11:58 Dose: 1,300 mg Documented by: Sodium Bicarbonate (Sodium Bicarbonate Tab 650 Mg Tab) 650 mg PO [facility] Last Admin: 03/10/20 20:17 Dose: 650 mg Documented by: Physical examination: VITAL SIGNS: 98, 83, 16, 116/59, 94% room air GENERAL: Sitting up in bed, more awake EYES: Pupils equal. Conjunctiva pale HEENT: External appearance of nose and ears normal, oral cavity grossly normal. NECK: JVD not raised; masses not palpable. HEART: First and second heart sounds are normal; no edema. LUNGS: Respiratory rate increased, decreased breath sounds , ABDOMEN: Soft, nontender, liver spleen not palpable, no masses palpable. PSYCH: Alert and oriented x3; mood and affect normal MUSCULOSKELETAL: Diffuse wasting of muscles Investigations, reviewed in the clinical context: Pro-calcitonin 1.84 White count 14 hemoglobin 8.1 platelets 134 potassium 4.2 BUN 47 creatinine 2.64 Lactic acid 4.9 Coronavirus P/Cr-not detected VQ scan-low probability for PE EKG tracing personally reviewed by me-normal sinus rhythm some ST segment changes Chest [id number] infiltrate throughout the right upper lobe and the superior segment of the right lower lobe Assessment: -Right upper lobe pneumonia, suspect gram-negative organism in an immunosuppressed patient, , POA,-slow to respond -Paroxysmal atrial flutter and fibrillation-with rapid ventricular rate then went back into sinus rhythm -Anemia multifactorial including that of chronic disease including multiple myeloma -Acute COPD exacerbation in a ex-smoker, -Chronic congestive heart failure from systolic and diastolic dysfunction EF 50- 55% -Moderate tricuspid and severe mitral regurgitation, nontraumatic -Severe secondary pulmonary hypertension secondary to CHF and COPD -Multiple myeloma on chemotherapy -Chronic kidney disease secondary to multiple myeloma stage IV and chronic interstitial nephropathy -Essential hypertension -Hyperlipidemia -Severe protein calorie malnutrition due to poor oral intake. BMI 14.4 -Chronic medical debility -Multiple old rib fractures due to multiple myeloma -Normocytic anemia due to multiple myeloma and chronic kidney disease Plan: DuoNeb every 4. IVaztreonam and Zithromax. Discussed with patient. Encouraged to sit up in a chair.
--- NOTE | 2020-03-10 23:18 | PN ---
PROGRESS NOTE DATE OF SERVICE: 03/10/2019 REASON FOR FOLLOWUP: Pneumonia with MULTIPLE ANTIBIOTIC ALLERGIES. INTERVAL HISTORY: The patient is currently afebrile. The patient is breathing more comfortably. Did mention her chest pressure has improved. She did have a cough with decreased intensity, not bringing up any sputum. No nausea, no vomiting. No abdominal pain or diarrhea. PHYSICAL EXAMINATION: Blood pressure 127/57 with a pulse of 90, temperature 98.2. She is 95% on 2 L nasal cannula. General description is an elderly female lying in bed in no distress. RESPIRATORY SYSTEM: Unlabored breathing with decreased intensity of breath sounds. No wheeze. HEART: S1, S2. Regular rate and rhythm. ABDOMEN: Soft. No tenderness. LABS: Blood culture has been negative so far. DIAGNOSTIC IMPRESSION AND PLAN: Patient admitted to hospital with shortness of breath and cough with evidence of right- sided pneumonia with MULTIPLE ANTIBIOTIC ALLERGIES. Currently covered with Azactam and Zithromax. Will try to obtain a sputum sample to narrow down her antibiotics and continue supportive care. MMODL / IJN: [id number] /
[2020-03-11] MEDS: IPRATROPIUM-ALBUTEROL 3 ML NEB INHALATION SCH ×6 (01:52→21:08)
[2020-03-11] MEDS: SODIUM CHLORIDE 0.9% 1,000 ML IV SCH ×4 (06:08→23:05)
--- NOTE | 2020-03-11 06:37 | XR ---
EXAMINATION TYPE: XR chest 1V portable DATE OF EXAM: 03/11/2020 CLINICAL HISTORY: Difficulty breathing and right lung pneumonia progress study. History of lung canc er. TECHNIQUE: Single AP portable upright view of the chest is obtained. COMPARISON: Chest x-ray from March 08, 2020. CT chest January 10, 2020. FINDINGS: Osseous structures are demineralized with underlying cysts gliotic curvature and multifoca l sclerotic rib lesions consistent with healing or healed fractures bilaterally. Cardiac silhouette size is stable and within normal limits. Background chronic emphysematous change with persistent righ t upper lung consolidation. New left basilar and right infrahilar opacities on current study. Suspect new tiny bilateral pleural effusions. IMPRESSION: Chronic emphysematous changes with persistent right upper lung pneumonic consolidation. N ew right infrahilar and left basilar acute infiltrates are present.
[2020-03-11 07:34] LABS: Anisocytosis Slight; HCT 21.5 % (34.0-46.0); Hypochromasia Marked; MCH 29.6 pg (25.0-35.0); MCHC 29.2 g/dL (31.0-37.0); MCV 101.2 fL (80.0-100.0); Macrocytosis Slight; Mean Platelet Volume 9.1; Poikilocytosis Slight; RBC 2.12 m/uL (3.80-5.40); RDW 16.9 % (11.5-15.5); WBC 9.9 k/uL (3.8-10.6)
[2020-03-11 07:41] LABS: HGB 6.3 gm/dL (11.4-16.0)
[2020-03-11] MEDS: SYMBICORT 160-4.5 MCG INHALER INHALATION SCH ×2 (07:49→21:08)
[2020-03-11 07:53] LABS: Calcium 8.6 mg/dL (8.4-10.2)
[2020-03-11 08:02] LABS: Platelet Count 91 k/uL (150-450)
[2020-03-11] MEDS: guaiFENesin 600 MG TABLET.ER PO SCH ×3 (08:43→23:05)
[2020-03-11] MEDS: AZTREONAM 1 GM in SODIUM CHLORIDE 0.9% 50 ML IVPB SCH ×3 (08:44→23:07)
[2020-03-11] MEDS: NON FORMULARY DRUG (Lenalidomide [Revlimid] 5 MG Capsule) PO SCH (11:50)
[2020-03-11] MEDS: AZITHROMYCIN 500 MG in SODIUM CHLORIDE 0.9% 250 ML IVPB SCH (12:07)
[2020-03-11] MEDS: CALCIUM CARB-VIT D 500 MG-5 MCG TAB PO SCH (12:08)
[2020-03-11] MEDS: SODIUM BICARBONATE TAB 650 MG TAB PO SCH ×3 (12:08→22:01)
[2020-03-11] MEDS: POTASSIUM CHLORIDE ER 20 MEQ TAB.ER PO SCH (12:08)
[2020-03-11] MEDS: METOPROLOL TARTRATE 25 MG TAB PO SCH ×2 (12:08→22:01)
[2020-03-11] MEDS: SERTRALINE 100 MG TAB PO SCH (12:08)
--- NOTE | 2020-03-11 13:44 | P.PN ---
Subjective Progress Note Date: 03/11/20 Principal diagnosis: Anemia, right-sided chest discomfort, shortness of breath This a very pleasant 69-year-old female patient who follows with Dr. Villalobos as her primary care provider. She has a history of atrial fibrillation/flutter, congestive heart failure, chronic obstructive pulmonary disease with chronic hypoxic respiratory failure, CVA/TIA, hypertension, hyperlipidemia, rheumatoid arthritis, COPD with previous chronic tobacco dependence. She also has a history of multiple myeloma and is currently on Revlimid. She follows with Dr. Larson in this regard. She presented here to the emergency room early this morning with a 2-3 day history of increasing shortness of breath cough congestion chest tightness in the right upper chest and wheezing. No fever, chills or night sweats. No nausea vomiting or diarrhea. CoVID 19 not detected. Chest x-ray reveals evidence of a right upper lobe pneumonia. She was initiated on Rocephin and Zithromax and admitted for the same. She was also found to be in atrial flutter with a rapid ventricular response and started on Cardizem drip at 5 mg per hour. She has 0.9 normal saline at 130 ML's per hour. Her lactic acid init ially was for currently down to 0.8. She is maintaining O2 saturations up to 100% on 2 L/m per nasal cannula. White count 14.0. Hemoglobin 8.1. Platelet count 134. D-dimer 1.61. Sodium 139. Potassium 4.2. Bicarb 18. Creatinine 2.64. Glucose 188. Troponin 0.014. ProBNP 2540. VQ scan pending. She is seen this morning in consultation on the selective care unit. She is currently resting flat in bed. Awake and alert in no acute distress. Feeling a bit better today compared to yesterday. Still with a loose nonproductive cough. Remains afebrile. Heart rate better controlled currently in sinus rhythm. Hemodynamically stable. The patient is seen today 03/11/2019 in follow-up on the selective care unit. He is currently sitting up in bed. Awake and alert in no acute distress. She was found to be quite anemic as morning with a hemoglobin of 6.3. Eliquis on hold. White count 9.9. Sodium 144. Potassium 5.0. Creatinine 1.56. Pro- calcitonin 1.34. Chest x-ray reveals chronic emphysematous changes with persistent right upper lung pneumonia consolidation. Right infrahilar and left basilar acute infiltrates are present. She is continued on aztreonam, azithromycin. Objective - Vital Signs Vital signs: Vital Signs Temp 97.9 F 03/11/20 12:00 Pulse 103 H 03/11/20 12:00 Resp 18 03/11/20 12:00 BP 126/58 03/11/20 12:00 Pulse Ox 90 L 03/11/20 12:00 Intake & Output 03/10/20 03/11/20 03/11/20 18:59 06:59 18:59 Intake Total 1200 2020 Output Total 2 0 0 Balance 1198 0 2020 Weight 38 kg 38.5 kg Intake: Intake, IV Titration 1080 Amount Azithromycin 500 mg In 250 Sodium Chloride 0.9% 250 ml @ 250 mls/hr IVPB DAILY [facility] Rx#:[id number] Aztreonam 1 gm In Sodium 50 Chloride 0.9% 50 ml @ 16. 667 mls/hr IVPB Q8HR [facility] Rx#:[id number] Sodium Chloride 0.9% 1, 780 000 ml @ 130 mls/hr IV . Q7H42M [facility] Rx#:[id number] Oral 1200 940 Output: Stool 2 0 0 Other: Voiding Method Bedpan Bedpan Bedpan Diaper Diaper Diaper # Voids 1 1 # Bowel Movements 1 - Exam GENERAL EXAM: Alert, very pleasant, 61-year-old frail looking female patient on 2 L of oxygen with pulse ox of 90% comfortable in no apparent distress. HEAD: Normocephalic/atraumatic. EYES: Normal reaction of pupils, equal size. Conjunctiva pink, sclera white. NOSE: Clear with pink turbinates. THROAT: No erythema or exudates. NECK: No masses, no JVD, no thyroid enlargement, no adenopathy. CHEST: No chest wall deformity. Symmetrical expansion. LUNGS: Equal air entry with diminished breath over right upper lobe, wheeze, rhonchi or dullness. CVS: Regular rate and rhythm, normal S1 and S2, no gallops, no murmurs, no rubs ABDOMEN: Soft, nontender. No hepatosplenomegaly, normal bowel sounds, no guarding or rigidity. EXTREMITIES: No clubbing, no edema, no cyanosis, 2+ pulses and upper and lower extremities. MUSCULOSKELETAL: Muscle strength and tone normal. SPINE: No scoliosis or deformity SKIN: No rashes CENTRAL NERVOUS SYSTEM: No focal deficits, tone is normal in all 4 extremities. PSYCHIATRIC: Alert and oriented -3. Appropriate affect. Intact judgment and insight. - Labs CBC & Chem 7: 03/11/20 07:21 03/11/20 07:21 Labs: Abnormal Lab Results - Last 24 Hours (Table) 03/11/20 03/11/20 03/11/20 Range/Units 07:21 07:21 07:21 RBC 2.12 L (3.80-5.40) m/uL Hgb 6.3 L* D (11.4-16.0) gm/dL Hct 21.5 L (34.0-46.0) % MCV 101.2 H (80.0-100.0) fL MCHC 29.2 L (31.0-37.0) g/dL RDW 16.9 H (11.5-15.5) % Plt Count 91 L (150-450) k/uL Chloride 121 H (98-107) mmol/L Carbon Dioxide 18 L (22-30) mmol/L BUN 32 H (7-17) mg/dL Creatinine 1.56 H (0.52-1.04) mg/dL Glucose 107 H (74-99) mg/dL Procalcitonin 1.34 H (0.02-0.09) ng/mL Microbiology - Last 24 Hours (Table) 03/08/20 06:30 Blood Culture - Preliminary Blood No Growth after 72 hours 03/08/20 06:45 Blood Culture - Preliminary Blood No Growth after 72 hours Assessment and Plan Assessment: 1 Acute hypoxic respiratory failure secondary to an acute right upper lung the pneumonia, suspect community-acquired in a compromised patient 2 Right-sided atypical chest pain secondary to above 3 Leukocytosis secondary to above 4 Anemia, current hemoglobin 6.3, 1 unit packed red blood cells pending 5 Acute renal failure, current creatinine 2.64, suspect dehydration 6 Lactic acidosis secondary to above, recovered 7 Multiple myeloma with abnormal uptake associated sedated with the patient's right lower lobe lung mass, currently on Revlimid 8 Chronic obstructive pulmonary disease with previous chronic tobacco dependence 9 Acute on chronic kidney disease, stage IIIIV 10 History of diastolic congestive heart failure 11 Paroxysmal atrial fibrillation/flutter with RVR, on a Cardizem drip, currently in sinus rhythm and maintained on Eliquis 12 Previous history of CVA 13 Hypertension 14 Hyperlipidemia 15 Chronic anxiety Plan: The patient was seen and evaluated by Dr. Sainz Chest x-ray, labs reviewed. Worsening pneumonia, plan for bronchoscopy in a.m. Hemoglobin 6.3, receiving 1 unit of PRBCs Eliquis on hold Antibiotics per ID services Continue Symbicort and albuterol We'll continue to follow and make further recommendations based on her clinical status I, the cosigning physician, performed a history & physical examination of the patient. Lungs sounds scattered rhonchi more so on the right lung. Maintaining good O2 saturations in the 90s on 2 L/m per nasal cannula. I discussed the assessment and plan of care with my nurse practitioner, Elida Rasheed. I attest to the above note as dictated by her.
--- NOTE | 2020-03-11 14:22 | CDI ---
Documentation Clarification Form Date: 03/11/2020 01:59:23 PM From: Allie Neal CCS, CCDS Admit Date: 03/08/2020 05:56:00 AM Patient Name: Lucero Coleman Visit Number: [id number] Discharge Date: ATTENTION: The Clinical Documentation Specialists (CDI) and [facility] Coding Staff appreciate your assistance in clarifying documentation. Please respond to the clarification below the line at the bottom and electronically sign. The CDI & [facility] Coding staff will review the response and follow-up if needed. Please note: Queries are made part of the Legal Health Record. If you have any questions, please contact the author of this message via ITS. Dr. Christopher Serrano: Sepsis is documented in the 03/08 ED Note, the 03/08 History & Physical and the 03/08 Infectious Disease Consult. Sepsis has not been documented in subsequent documentation. 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 Clinical Indicators: Presented to the ED on 03/08 with SOB and cough via EMS. Found to have a RUL infiltrate, tachycardic, hypotensive, elevated lactic acidosis & in atrial flutter. Given Sepsis bolus & started on Cardizem & IV Antibiotics in ED. 03/08 VS: T 98.2, P 61 - 152^, R 20 - 24^, BP 91/69*, PO 92 3Lnc 03/08 LAB: WBC 14.0^, RBC 2.64*, Hgb 8.1*, Hct 26.1*, Pl Ct 134*, Neut 12.8*, Lymph 0.5*, D Dimer 1.61^, Cl 108^, CO2 18*, BUN 47^, Cr 2.64^, Glucose 188^, Lactic Acid (0.8), ALT 35^, Alk Phos 151^. UA: clear, trace protein 03/08 Blood Cultures x2:Negative @ 72 hours, final pending. COVID: Negative RAD 03/08: CXR: Severe infiltration throughout the RUL likely within the superior segment of the RLL. VQ: Low evidence of acute PE. Consults: Cardiology 03/08: RUL Pneumonia, COPD exacerbation and Atrial Fibrillation w/RVR. Pulmonary 03/08: Acute Hypoxic Respiratory Failure secondary to acute RUL Pneumonia, suspect community acquired, GREGORY, Lactic Acidosis. Treatment: IV Cardizem Drip Bolus, IV Cardizem, IV fluid 1,000 mls @ 130 mls/hr q7, IV fluid 500 mls @ 1000 mls/hr q30M, IV Azithromycin, IV Aztreonam, IV fluid 1,000 mls @ 130 mls/hr q7, INH Duoneb, INH Symbicort, po Eliquis In your professional opinion, please clarify if these findings signify one of the following conditions, whether the condition is POA, and cause, if known: Sepsis ruled out Sepsis ruled in o Please specify cause & suspected organism if know: Severe Sepsis: o Please specify organ failure: Other, please specify Unable to determine Present on Admission o Yes o No (Last Revision: June 2017) Sepsis, ruled in from pneumonia MTDD
--- NOTE | 2020-03-11 14:53 | P.CONS ---
History of Present Illness - Reason for Consult Consult date: 03/11/20 Anemia Requesting physician: Christopher Serrano - History of Present Illness Ms Coleman is a pleasant white female, initially seen in consult at [facility] on 04/07/17. The patient had come in with complaints of not feeling well over the last 4-6 weeks, decreased appetite, decreased endurance, as well as nausea off and on. She had lost about 8-10 pounds during that time and was complaining of increased bone pain in the bilateral rib area. In the emergency room she was found to have increase in creatinine to 2.9 (baseline around 2), with calcium elevated at 13.4 as well as anemia. Labs ordered by nephrology as an outpatient on 03/31/17 had shown a markedly elevated Light chain at 4900 mg/dL with lambda light chains normal. Protein electrophoresis had been negative. The patient was treated with IV hydration and IV bisphosphonate with improvement in her calcium as well as partial improvement in renal function. She did require a blood transfusion for decline in hemoglobin. The patient then underwent a bone marrow aspiration biopsy in 04/11/17 and a subsequently dischar ged. The biopsy came back positive for myeloma, with monoclonal plasma cells occupying about 60% of the marrow elements. Cytogenetics were normal. a bone survey was negative for lytic lesions other than in the left upper humerus which had a moth-eaten appearance. 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 she was seen for her first office visit on 05/03/17. She was started on Rev/Velcade/Dex and is s/p 6 cycles. She was also on Xgeva She was hospitalised post C 1, with COPD exacerbation with tr acheobronchitis,which resolved with treatment. She had another admission after C 3 for the same She was admitted again on 08/04/17 with intractable mid and lower back pain. She improved with steroids and was discharged on 08/05/17. She missed her C [address] spine showed one small lesion at T10, with multiple rib fractures, which were the likely cause of her pain. She was switched to Kyprolis/Rev /Dex on 10/02/17 as her light chain levels had started to increase. She completed 1 cycle, and D 1,2 of C2. She then developed an extensive, itchy, maculopapular rash. Treatment was held, and she was treated with steroids. She was slow to improve, and was therefore referred to Dermatology, with skin biopsy on 11/02/17 showing dermal hypersensitivity reaction. She was admitted to [facility] again for COPD exacerbation and CHF. She was discharged on 11/14/17. She was then switched to Ixazomib/Rev/Dex, in 11/21 and is s/p 2 cycles. This was then held due to progressive GI side effects. She was then referred to BMT at the [facility], and felt to be an appropriate candidate. She had an auto SCT on 05/10/18, with Melphalan used as the preparatory regimen. Her post transplant course was complicated by MRSA and Pseudomonas bacteremia. She was discharged on 05/29/18. She started maintenance Revlimid at 10 mg/d in 07/22 She was admitted x2 for COPD exacerbation and pneumonia, with most recent in mid 09/21. Her counts were markedly low, requiring transfusion, and GCSF. Revlimid was on hold since about 09/12/18 She had an admission in 03/25 for COPD exacerbation and possible pneumonia. Her counts did drop further during her hospitalization. Rev continued to be held She was discharged on abx and completed those 03/26/19 Rev continued to be held as his PS was still compromised. She had a PET scan ordered by Pulmonary medicine to w/u a lung opacity noted on imaging during her hospitalization. this showed uptake in her known bone lesions from her myeloma. However the PET was positive in the right lower lobe lung mass. She was to have a bronchoscopy on 05/24/19, but this was put on hold due to the COVID pandemic She resumed Rev at 5 mg Po QOD after her visit in 04/25. 07/04/19: Dialysis was to be started due to lack of improvement in her renal function, but continues on hold due to stability of GFR. Her ROS is otherwise as per HPI and negative out of 10. As it was not clear when the patient would be able to have a bronchoscopy, she was referred to radiation oncology and was felt to be an appropriate candidate for SBRT without biopsy, based on imaging criteria. She underwent the same and completed that on 08/09/19 she was admitted to the hospital with UTI, pneumonia and sepsis on 12/02/19 and released on 12/06/19. She has been holding the Revlimid since 12/02/19. she had another visit to the ER on 12/23/19 nausea and vomiting, but was able to be discharged with supportive treatment. Revlimid was resumed at 5 mg every other day on 01/06/20 as counts were showing stability. This was again discontinued at her visit on 01/22/20 as c ount showed a decline with hemoglobin at 8 and platelets in the 40,000 range. Last seen on March 03, 2020 - The patient continued to do poorly, despite holding Revlimid. Hemoglobin remains low at 7.6 though white count is now increased to 11.9 and platelets are 116. Recent labs ordered including 24-hour urine studies for any evidence of myeloma progression. Serum therapy pheresis studies were negative at her last visit for any evidence of progression. If repeat studies this time show the same, then her persistently poor performance status is more likely due to her decreased renal function and COPD. - As hemoglobin remains low despite holding Revlimid, and despite improvement in her WBC and platelets, this is more likely due to CK D. Check iron studies and erythropoietin level. Plan was to begin ELVIS although now patient has been re- admitted to hospital a few days ago. . Review of Systems All systems: negative Constitutional: Reports as per HPI Past Medical History Past Medical History: Atrial Fibrillation, Atrial Flutter, Cancer, Heart Failure, COPD, CVA/TIA, Eye Disorder, Hyperlipidemia, Hypertension, Osteoarthritis (OA), Pneumonia, Renal Disease, Rheumatoid Arthritis (RA) Additional Past Medical History / Comment(s): CHF exacerbation, aflutter/afib with RVR/acute hypoxic respiratory failure/vavluar disease, pulmonary htn; 04/2017 pt diagnosed with multiple myeloma/bone cancer/CRD stage IV d/t myeloma per pt and currently receiving chemotherapy pill for maintance, bicytopenia 2ndary to chemo, last dose of chemo 11/30. 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 Past Anesthesia/Blood Transfusion Reactions: No Reported Reaction Additional Past Anesthesia/Blood Transfusion Reaction / Comm: Pt has received blood in past, on 10/2017 developed rash and was tx with steroids. Pt had blood tranfusion after with no recactions. Past Psychological History: Anxiety Smoking Status: Former smoker Past Alcohol Use History: None Reported Past Drug Use History: None Reported - Past Family History Father Family Medical History: Pneumonia Additional Family Medical History / Comment(s): FATHER RECENTLY FROM PNEUMONIA. HE WAS 100 YRS OLD. Mother Family Medical History: Cancer Additional Family Medical History / Comment(s): LUNG CANCER. MOTHER WAS A SMOKER. Medications and Allergies Home Medications Medication Instructions Recorded Confirmed Type Sertraline [Zoloft] 200 mg PO PC-LUNCH 01/28/17 03/08/20 History calcitrioL [Calcitriol] 0.25 mcg PO PC-LUNCH 10/23/17 03/08/20 History Acyclovir 400 mg PO PC-LUNCH 12/28/17 03/08/20 History Calcium Carb-Vit D 500Mg-200Un 2 tab PO DAILY@1200 08/15/18 03/08/20 History [Oscal 500+D] Metoprolol Tartrate [Lopressor] 12.5 mg PO BID@1200,2100 08/15/18 03/08/20 History Sodium Bicarbonate Tab 1,300 mg PO DAILY@1200 08/15/18 03/08/20 History Budesonide-Formot 160-4.5 Mcg 2 puff INHALATION RT-BID #1 each 08/20/18 03/08/20 Rx [Symbicort 160-4.5 Mcg Inhaler] Latanoprost [Xalatan 0.005%] 1 drop BOTH EYES HS 03/15/19 03/08/20 History Apixaban [Eliquis] 2.5 mg PO BID@1200,2100 05/03/19 03/08/20 History Lenalidomide [Revlimid] 5 mg PO Q48H 05/03/19 03/08/20 History Potassium Chloride [Klor-Con 20] 20 meq PO PC-LUNCH 05/03/19 03/08/20 History Cyclobenzaprine [Flexeril] 10 mg PO BID@1200,2100 11/17/19 03/08/20 History Ipratropium-Albuterol Nebulize 3 ml INHALATION RT-BID@1200,2100 11/17/19 03/08/20 History [Duoneb 0.5 mg-3 mg/3 ml Soln] Sodium Bicarbonate Tab 650 mg PO HS 12/01/19 03/08/20 History Allergies Allergy/AdvReac Type Severity Reaction Status Date / Time Penicillins Allergy Unknown Unknown Verified 03/08/20 08:01 Cephalosporins Allergy Unknown Verified 03/08/20 08:01 ciprofloxacin HCl Allergy Lip Verified 03/08/20 08:01 [From Cipro] swelling, itching codeine Allergy Unknown Verified 03/08/20 08:01 Sulfa (Sulfonamide Allergy Unknown Verified 03/08/20 08:01 Antibiotics) Physical Exam Vitals: Vital Signs Temp Pulse Pulse Pulse Resp BP Pulse Ox 03/11/20 12:00 97.9 F 103 H 18 126/58 90 L 03/11/20 11:36 82 03/11/20 11:25 82 03/11/20 08:01 85 03/11/20 08:00 97.9 F 88 82 16 139/80 90 L 03/11/20 07:49 85 95 03/11/20 04:00 98.6 F 82 19 122/62 94 L 03/11/20 00:00 98.2 F 87 17 141/65 94 L 03/10/20 20:28 80 03/10/20 20:16 80 03/10/20 20:00 98.2 F 90 18 127/57 95 03/10/20 16:37 80 03/10/20 16:25 80 03/10/20 16:00 98.0 F 83 16 116/59 94 L Intake and Output 03/10/20 03/11/20 03/11/20 22:59 06:59 14:59 Intake Total 120 2020 Output Total 0 0 0 Balance 120 0 2020 Intake: Intake, IV Titration 1080 Amount Azithromycin 500 mg In 250 Sodium Chloride 0.9% 250 ml @ 250 mls/hr IVPB DAILY [facility] Rx#:[id number] Aztreonam 1 gm In Sodium 50 Chloride 0.9% 50 ml @ 16. 667 mls/hr IVPB Q8HR [facility] Rx#:[id number] Sodium Chloride 0.9% 1, 780 000 ml @ 130 mls/hr IV . Q7H42M [facility] Rx#:[id number] Oral 120 940 Output: Stool 0 0 0 Other: Voiding Method Bedpan Bedpan Bedpan Diaper Diaper Diaper # Voids 1 # Bowel Movements 1 Weight 38.5 kg - Constitutional General appearance: Present: cooperative, no acute distress, thin - EENT Eyes: Present: anicteric sclerae, EOMI ENT: Present: hearing grossly normal - Respiratory Respiratory: bilateral: diminished (tight) - Cardiovascular Heart sounds: normal: S1, S2 - Peripheral edema leg Peripheral Edema: bilateral: None - Gastrointestinal General gastrointestinal: Present: normal bowel sounds, soft - Integumentary Integumentary: Present: pale - Neurologic Neurologic: Present: CNII-XII intact - Musculoskeletal Musculoskeletal: Present: strength equal bilaterally - Psychiatric Psychiatric: Present: A&O x's 3, appropriate affect, intact judgment & insight Results CBC & Chem 7: 03/12/20 07:57 03/12/20 07:57 Labs: Abnormal Lab Results - Last 24 Hours (Table) 03/11/20 03/11/20 03/11/20 Range/Units 07:21 07:21 07:21 RBC 2.12 L (3.80-5.40) m/uL Hgb 6.3 L* D (11.4-16.0) gm/dL Hct 21.5 L (34.0-46.0) % MCV 101.2 H (80.0-100.0) fL MCHC 29.2 L (31.0-37.0) g/dL RDW 16.9 H (11.5-15.5) % Plt Count 91 L (150-450) k/uL Chloride 121 H (98-107) mmol/L Carbon Dioxide 18 L (22-30) mmol/L BUN 32 H (7-17) mg/dL Creatinine 1.56 H (0.52-1.04) mg/dL Glucose 107 H (74-99) mg/dL Procalcitonin 1.34 H (0.02-0.09) ng/mL Microbiology - Last 24 Hours (Table) 03/08/20 06:30 Blood Culture - Preliminary Blood No Growth after 72 hours 03/08/20 06:45 Blood Culture - Preliminary Blood No Growth after 72 hours Assessment and Plan (1) Atrial flutter with rapid ventricular response Narrative/Plan: Cardiology Following Current Visit: Yes Status: Acute Code(s): I48.92 - UNSPECIFIED ATRIAL FLUTTER SNOMED Code(s): 5867480 (2) Chronic kidney disease Narrative/Plan: Nephrology Following Current Visit: Yes Status: Chronic Code(s): N18.9 - CHRONIC KIDNEY DISEASE, UNSPECIFIED SNOMED Code(s): 116949786 (3) Acute exacerbation of chronic obstructive airways disease Current Visit: No Status: Acute Code(s): J44.1 - CHRONIC OBSTRUCTIVE PULMONARY DISEASE W (ACUTE) EXACERBATION SNOMED Code(s): 351461224 (4) Multiple myeloma not having achieved remission Current Visit: No Status: Chronic Priority: Medium Code(s): C90.00 - MULTIPLE MYELOMA NOT HAVING ACHIEVED REMISSION SNOMED Code(s): 992178190 (5) Pancytopenia Narrative/Plan: Secondary to Chronic disease, acute on chronic infectious/inflammatory response, Multiple myeloma, and chemotherapy Hold Revlamid for now Daily CBC with differential and repeat work-up ordered last visit in anticipation to begin epogen Transfuse hemoglobin less than 7 Recheck coags/ Current Visit: No Status: Chronic Priority: Medium Code(s): D61.818 - OTHER PANCYTOPENIA SNOMED Code(s): 290735446 Plan: If Iron Saturation is less then 15% will need to give parental iron for the start of epogen. Daily CBC Monitoring Physician Attest: I have completed the full history and physical and agree with above dictation, dictated as a scribe.
[2020-03-11 15:42] LABS: Anisocytosis Slight; Basophils % (A) 0 %; Eosinophils % (A) 0 %; Hypochromasia Marked; Lymphocytes # (A) 0.3 k/uL (1.0-4.8); Lymphocytes % (A) 3 %; MCH 30.7 pg (25.0-35.0); MCHC 30.2 g/dL (31.0-37.0); MCV 101.6 fL (80.0-100.0); Macrocytosis Slight; Mean Platelet Volume 9.3; Monocytes # (A) 0.3 k/uL (0-1.0); Monocytes % (A) 3 %; Neutrophils # (A) 8.5 k/uL (1.3-7.7); Neutrophils % (A) 93 %; Poikilocytosis Slight; RBC 1.96 m/uL (3.80-5.40); RDW 16.6 % (11.5-15.5); WBC 9.2 k/uL (3.8-10.6)
[2020-03-11 15:55] LABS: Platelet Count 86 k/uL (150-450)
[2020-03-11] MEDS: PANTOPRAZOLE 40 MG TABLET PO SCH (16:27)
[2020-03-11 16:28] LABS: D-Dimer 1.77 mg/L FEU (<0.60); INR 1.1 (<1.2); Partial Thromboplastin Time 27.5 sec (22.0-30.0); Prothrombin Time 11.7 sec (9.0-12.0)
--- NOTE | 2020-03-11 19:48 | CONS ---
CONSULTATION DATE OF DICTATION: 03/11/2020 REASON FOR CONSULTATION: Anemia and melena. HISTORY OF PRESENT ILLNESS: The patient is a 69-year-old pleasant white female with history of COPD, multiple myeloma, history of congestive heart failure, admitted to the hospital for shortness of breath for the last 3-4 days' duration. She has history of chronic atrial fibrillation and has been on Eliquis, but she was noted to have rapid ventricular heart rate and Cardiology has been consulted. She also had a chest x-ray that showed left upper lobe infiltrate and is presently on broad-spectrum antibiotics for community-acquired pneumonia. While in the hospital she developed black tarry stools 2 days ago. Her initial hemoglobin at the time of admission to the hospital was 8.1 g/dL; that was 3 days ago, and today it dropped to 6.3 g/dL. Hence we are consulted for further evaluation. The patient denies any abdominal pain. No nausea, no vomiting. No rectal bleeding, but she had black tarry stools. She has no prior history of peptic ulcer disease. She had an upper endoscopy done by 2 years ago that was unremarkable. Her last colonoscopy was more than 5 years ago. She was seen by Dr. Sainz and scheduled for a bronchoscopy tomorrow. PAST MEDICAL HISTORY: Her past medical history is significant for COPD, pneumonia, congestive heart failure, history of atrial fibrillation, on Eliquis, history of CVA in the past, hypertension, hyperlipidemia, degenerative joint disease. SURGICAL HISTORY: History of breast implants. MEDICATIONS: Medications at home include , Eliquis, Revlimid, sodium bicarb, Lipitor, Os- Miah, K-Adriana, Flexeril, DuoNeb and bicarb. ALLERGIES: PENICILLIN, CEPHALOSPORIN, CODEINE, SULFA AND CIPRO. SOCIAL HISTORY: Former smoker. No alcohol use. FAMILY HISTORY: Father had pneumonia and mother had lung cancer. REVIEW OF SYSTEMS: CARDIOPULMONARY: She does still complain of some shortness of breath but no chest pain. GENITOURINARY: No dysuria or hematuria. MUSCULOSKELETAL: Chronic back pain. NEUROLOGY: Unremarkable. PSYCHIATRY: Unremarkable. ENT/VISION: Unremarkable. GI: As mentioned above. HEMATOLOGY: Severe anemia. CONSTITUTIONAL: No recent weight loss. No fever, chills, night sweats. PHYSICAL EXAMINATION: She appears comfortable. distress. Vital signs are stable. Blood pressure is 133/82, pulse rate 86 per minute and afebrile. HEENT examination unremarkable. Conjunctivae pink. Sclerae anicteric. Oral cavity no lesions. NECK: No JVD or lymph node enlargement. CHEST: Clear to auscultation. HEART: Regular rate and rhythm. ABDOMEN: Soft. It is non-tender, non-distended. Bowel sounds are positive. No organomegaly. EXTREMITIES: No pedal edema. NEUROLOGIC: Alert and oriented x3. No focal deficits. LABS: Labs done at the time of admission to the hospital: WBC was 14, hemoglobin 8.1, platelets 134. Today hemoglobin is 6.3, WBC 9.9, and platelets are 91,000. BUN is 47, creatinine 2.64. Albumin 3.4. Coronavirus PCR is negative. IMPRESSION: 1. Severe anemia with drop in hemoglobin from 8.3 to 6.3 g/dL in the last 3 days, accompanied by black tarry stools for the last 2 days, consistent with upper gastrointestinal bleed. The patient has been on Eliquis for atrial fibrillation with RVR, currently on hold. We are possibly dealing with an upper GI source of bleeding. 2. Shortness of breath/pneumonia, on broad-spectrum antibiotics. Dr. Sainz is following the patient closely. She is scheduled for a bronchoscopy tomorrow. 3. History of chronic obstructive pulmonary disease. 4. History of chronic kidney disease with elevated BUN and creatinine. 5. History of hypertension. 6. History of multiple myeloma. RECOMMENDATIONS: 1. Start on Protonix 40 mg twice daily. 2. Agree with PRBC transfusion. 3. Monitor CBC on a daily basis. 4. We will schedule her for an upper endoscopy to evaluate for upper GI source of bleeding at the same time as bronchoscopy that is scheduled by Dr. Sainz tomorrow. The plan was discussed with the patient. She is agreeable to it. In the meantime, continue with her current diet and we will follow with you closely. Thank you for this consultation. MMODL / IJN: [id number] /
[2020-03-11] MEDS: ACETAMINOPHEN TAB 325 MG TAB PO PRN (22:00)
[2020-03-11] MEDS: LATANOPROST 0.005% OPHTH DROPS 2.5 ML BTL BOTH EYES SCH (22:01)
[2020-03-11 23:00] LABS: Anisocytosis Moderate; HCT 27.2 % (34.0-46.0); Hypochromasia Marked; MCH 28.7 pg (25.0-35.0); MCHC 30.8 g/dL (31.0-37.0); Mean Platelet Volume 8.6; Poikilocytosis Moderate; RBC 2.91 m/uL (3.80-5.40); RDW 20.5 % (11.5-15.5); WBC 14.8 k/uL (3.8-10.6)
[2020-03-11 23:01] LABS: MCV 93.2 fL (80.0-100.0); Platelet Count 99 k/uL (150-450)
[2020-03-11 23:02] LABS: HGB 8.4 gm/dL (11.4-16.0)
--- NOTE | 2020-03-11 23:35 | PN ---
PROGRESS NOTE DATE OF SERVICE: 03/11/2020 REASON FOR FOLLOWUP: Pneumonia with MULTIPLE ANTIBIOTIC ALLERGIES. INTERVAL HISTORY: The patient is currently afebrile. The patient is breathing more comfortably. The patient denies having any chest pain. She continues to have a cough. No nausea, no vomiting, no abdominal pain or diarrhea. PHYSICAL EXAMINATION: Blood pressure 153/70 with a pulse of 103, temperature 100.2. She is 100% on 6 L nasal cannula. General description is an elderly female lying in bed in no distress. RESPIRATORY SYSTEM: Unlabored breathing with decreased breath sounds at the base. No wheeze. HEART: S1, S2. Regular rate and rhythm. ABDOMEN: Soft. No tenderness. LABS: Hemoglobin is 6.3, white count 9.2, creatinine 1.56. DIAGNOSTIC IMPRESSION AND PLAN: Patient with right upper lobe pneumonia in this patient who did have MULTIPLE ANTIBIOTIC ALLERGIES, currently being maintained on Azactam, Zithromax. Try to obtain a sputum sample to narrow down her antibiotics and monitor her clinical course closely. MMODL / IJN: [id number] /
--- NOTE | 2020-03-11 23:40 | P.PN ---
Progress Note - Text Progress Note Date: 03/11/20 Interval history: This is a very pleasant 69-year-old patient of Dr. Villalobos. Chronic stable me dical conditions include paroxysmal atrial flutter fibrillation, , CHF with an EF of 50-55%, tricuspid and mitral regurgitation, secondary pulmonary hypertension, chronic kidney disease stage IV, hypertension, hyperlipidemia,. Patient also being treated for multiple myeloma. on REVLIMID Patient presented with shortness of breath confusion cough congestion. Admitted with right upper lobe pneumonia, acute delirium. Started on IV aztreonam and azithromycin. Today-patient had dark. stools. Drop hemoglobin. Blood was ordered. Feels weak and tired. Congested cough. little expectoration. Decreased appetite. Review of systems: Was done for constitutional, cardiovascular, GI, pulmonary. relevant finding as above Active Medications Acetaminophen (Acetaminophen Tab 325 Mg Tab) 650 mg PO Q4HR PRN PRN Reason: Fever and/ or Pain Last Admin: 03/11/20 22:00 Dose: 650 mg Documented by: Albuterol/Ipratropium (Ipratropium-Albuterol 3 Ml Neb) 3 ml INHALATION RT-Q4H [facility] Last Admin: 03/11/20 21:08 Dose: 3 ml Documented by: Budesonide/Formoterol Fumarate (Symbicort 160-4.5 Mcg Inhaler) 2 puff INHALATION RT-BID [facility] Last Admin: 03/11/20 21:08 Dose: 2 puff Documented by: Calcitriol (Calcitriol 0.25 Mcg Cap) 0.25 mcg PO PC-LUNCH [facility] Last Admin: 03/11/20 12:08 Dose: 0.25 mcg Documented by: Calcium Carbonate (Calcium Carb-Vit D 500mg-200un 1 Each Tab) 2 each PO DAILY@1200 [facility] Last Admin: 03/11/20 12:08 Dose: 2 each Documented by: Guaifenesin (Guaifenesin 600 Mg Tablet.Er) 600 mg PO Q8HR [facility] Last Admin: 03/11/20 23:05 Dose: 600 mg Documented by: Sodium Chloride (Saline 0.9%) 1,000 mls @ 130 mls/hr IV .Q7H42M [facility] Last Admin: 03/11/20 23:05 Dose: 130 mls/hr Documented by: Azithromycin 500 mg/ Sodium (Chloride) 250 mls @ 250 mls/hr IVPB DAILY [facility] Stop: 03/13/20 09:01 Last Admin: 03/11/20 12:07 Dose: 250 mls/hr Documented by: Aztreonam 1 gm/ Sodium (Chloride) 50 mls @ 16.667 mls/hr IVPB Q8HR [facility] Last Admin: 03/11/20 23:07 Dose: 16.667 mls/hr Documented by: Lactated Ringer's (Lactated Ringers) 1,000 mls @ 20 mls/hr IV .Q24H [facility] Latanoprost (Latanoprost 0.005% Ophth Drops 2.5 Ml Btl) 1 drops BOTH EYES [facility] Last Admin: 03/11/20 22:01 Dose: 1 drops Documented by: Metoprolol Tartrate (Metoprolol Tartrate 25 Mg Tab) 25 mg PO BID@1200,2100 [facility] Last Admin: 03/11/20 22:01 Dose: 25 mg Documented by: Miscellaneous Information (Pneumonia Protocol Utilized 1 Each Misc) 1 each PO ONCE PRN PRN Reason: Per Protocol Pantoprazole Sodium (Pantoprazole 40 Mg Tablet) 40 mg PO AC-BID [facility] Last Admin: 03/11/20 16:27 Dose: 40 mg Documented by: Potassium Chloride (Potassium Chloride Er 20 Meq Tab.Er) 20 meq PO PC-LUNCH [facility] Last Admin: 03/11/20 12:08 Dose: 20 meq Documented by: Sertraline HCl (Sertraline 100 Mg Tab) 200 mg PO PC-LUNCH [facility] Last Admin: 03/11/20 12:08 Dose: 200 mg Documented by: Sodium Bicarbonate (Sodium Bicarbonate Tab 650 Mg Tab) 1,300 mg PO DAILY@1200 [facility] Last Admin: 03/11/20 22:00 Dose: 1,300 mg Documented by: Sodium Bicarbonate (Sodium Bicarbonate Tab 650 Mg Tab) 650 mg PO [facility] Last Admin: 03/11/20 22:01 Dose: Not Given Documented by: Physical examination: VITAL SIGNS: 98, 88, 16, 129 /88, 93% on 2 L GENERAL: Sitting up in bed, tired EYES: Pupils equal. Conjunctiva pale HEENT: External appearance of nose and ears normal, oral cavity grossly normal. NECK: JVD not raised; masses not palpable. HEART: First and second heart sounds are normal; no edema. LUNGS: Respiratory rate increased, decreased breath sounds , ABDOMEN: Soft, nontender, liver spleen not palpable, no masses palpable. PSYCH: Alert and oriented x3; mood and affect normal MUSCULOSKELETAL: Diffuse wasting of muscles Investigations, reviewed in the clinical context: March 11: White count 9.2 hemoglobin 6 platelets 86potassium 5 creatinine 1.56 pro-calcitonin 1.34 Pro-calcitonin 1.84 White count 14 hemoglobin 8.1 platelets 134 potassium 4.2 BUN 47 creatinine 2.64 Lactic acid 4.9 Coronavirus P/Cr-not detected VQ scan-low probability for PE EKG tracing personally reviewed by me-normal sinus rhythm some ST segment changes Chest [id number] infiltrate throughout the right upper lobe and the superior segment of the right lower lobe Assessment: -Right upper lobe pneumonia, suspect gram-negative organism in an immunosuppressed patient, , POA,-slow to respond -Acute GI bleed patient having dark stools.-new diagnosis -Paroxysmal atrial flutter and fibrillation-with rapid ventricular rate then went back into sinus rhythm -Anemia multifactorial including that of chronic disease including multiple myeloma -Acute COPD exacerbation in a ex-smoker, -Chronic congestive heart failure from systolic and diastolic dysfunction EF 50- 55% -Moderate tricuspid and severe mitral regurgitation, nontraumatic -Severe secondary pulmonary hypertension secondary to CHF and COPD -Multiple myeloma on chemotherapy -Chronic kidney disease secondary to multiple myeloma stage IV and chronic interstitial nephropathy -Essential hypertension -Hyperlipidemia -Severe protein calorie malnutrition due to poor oral intake. BMI 14.4 -Chronic medical debility -Multiple old rib fractures due to multiple myeloma -Normocytic anemia due to multiple myeloma and chronic kidney disease -Acute GI bleed dropping hemoglobin down to 6. Plan: continue antibiotics including IVs aztreonam. Bronchodilators.PRBC was ordered. Consultation to GI oncology. Discussed with patient..
[2020-03-12 00:14] LABS: Protein, Total 4.5 g/dL (6.2-8.2)
[2020-03-12] MEDS: IPRATROPIUM-ALBUTEROL 3 ML NEB INHALATION SCH ×6 (00:40→19:32)
[2020-03-12] MEDS: LACTATED RINGERS 1,000 ML IV SCH (03:58)
[2020-03-12] MEDS: PANTOPRAZOLE 40 MG TABLET PO SCH ×2 (07:39→18:03)
[2020-03-12] MEDS: SYMBICORT 160-4.5 MCG INHALER INHALATION SCH ×2 (07:45→19:32)
[2020-03-12 08:11] LABS: Free Kappa Lt Chain Qnt, Serum 9.17 mg/dL (0.33-1.94); Immunoglobulin M 18.7 mg/dL (40.0-280.0)
--- NOTE | 2020-03-12 08:46 | XR ---
EXAMINATION TYPE: XR chest 1V portable DATE OF EXAM: 03/12/2020 COMPARISON: 03/11/2020 INDICATION: Pneumonia, short of breath TECHNIQUE: Single frontal view of the chest is obtained. FINDINGS: The heart size is normal. The pulmonary vasculature is normal. There is a large consolidation to the right upper lobe. Overall groundglass opacities through the rem aining portions of the lungs. There are old multiple bilateral mid and lower rib fractures. IMPRESSION: 1. Right upper lobe consolidation compatible with pneumonia. Diffuse infiltrates are present through the remaining portions of the lung stewart may have slight improvement. 2. Multiple subacute or old rib fractures.
[2020-03-12 09:02] LABS: Glucose,Whole Blood 87 mg/dL (75-99)
[2020-03-12] MEDS ORDERED: VANCOMYCIN IV PER PHARMACY 1 EACH MISC MISCELLANE PRN (09:11)
[2020-03-12 09:13] LABS: Anisocytosis Moderate; Basophils % (A) 0 %; Eosinophils % (A) 0 %; HCT 31.4 % (34.0-46.0); HGB 9.2 gm/dL (11.4-16.0); Hypochromasia Marked; Lymphocytes # (A) 0.9 k/uL (1.0-4.8); Lymphocytes % (A) 4 %; MCHC 29.5 g/dL (31.0-37.0); MCV 94.9 fL (80.0-100.0); Macrocytosis Slight; Mean Platelet Volume 8.9; Monocytes # (A) 0.6 k/uL (0-1.0); Monocytes % (A) 2 %; Neutrophils # (A) 21.8 k/uL (1.3-7.7); Neutrophils % (A) 93 %; Platelet Count 113 k/uL (150-450); Poikilocytosis Moderate; RBC 3.31 m/uL (3.80-5.40); RDW 20.5 % (11.5-15.5); WBC 23.4 k/uL (3.8-10.6)
[2020-03-12] MEDS: guaiFENesin 600 MG TABLET.ER PO SCH ×2 (09:14→18:03)
[2020-03-12] MEDS ORDERED: VANCOMYCIN 750 MG in SODIUM CHLORIDE 0.9% 250 ML IVPB ONE (09:30)
[2020-03-12 09:33] LABS: Albumin 2.3 g/dL (3.5-5.0); Calcium 8.7 mg/dL (8.4-10.2); Potassium 4.2 mmol/L (3.5-5.1); Total Bilirubin 0.5 mg/dL (0.2-1.3)
[2020-03-12] MEDS: methylPREDNISolone SOD SUCCI 125 MG/2 ML VIAL IV SCH ×3 (09:34→18:05)
[2020-03-12 09:40] LABS: ABG Base Excess -8.3 mmol/L; ABG HCO3 17 mmol/L (21-25); ABG Oxygen Saturation 98.2 % (94-97); ABG PCO2 28 mmHg (35-45); ABG PH 7.38 (7.35-7.45); ABG PO2 91 mmHg (83-108); ABG TCO2 18 mmol/L (19-24); Allen Test Performed? Yes
[2020-03-12 11:12] LABS: % Iron Saturation 8.16 (12.00-45.00); Ferritin 1634.7 ng/mL (10.0-291.0)
--- NOTE | 2020-03-12 11:52 | P.PN ---
Subjective Progress Note Date: 03/12/20 Principal diagnosis: Anemia and melena Is a 69-year-old pleasant female patient with a history of COPD, multiple myeloma and congestive heart failure admitted to the hospital for shortness of breath. Still has a history of atrial fibrillation has been on eliquis which is on hold. The patient was diagnosed with community-acquired pneumonia and placed on broad-spectrum antibiotics. While in the hospital she developed some dark tarry stools for 1 day duration a drop in her hemoglobin. She was transfused with 1 unit of packed red blood cell, today's hemoglobin is stable at 9.2. She denies any further episodes of dark tarry stools, abdominal pain, nausea or vomiting. The patient had an acute event through the evening with increased difficulty of breathing and shortness of breath. She was transferred to the ICU and is currently on nonrebreather with high flow oxygen. The patient was scheduled for a bronchoscopy and upper endoscopy today. Was discussed with pulmonology and recommendation was to hold off on both bronchoscopy and upper endoscopy today. Objective - Vital Signs Vital signs: Vital Signs Temp 97.9 F 03/12/20 07:45 Pulse 107 H 03/12/20 07:55 Resp 36 H 03/12/20 07:45 BP 176/75 03/12/20 07:45 Pulse Ox 88 L 03/12/20 08:22 Intake & Output 03/11/20 03/12/20 03/12/20 18:59 06:59 18:59 Intake Total 3610 0 0 Output Total 450 0 Balance 3160 0 0 Weight 40 kg Intake: Intake, IV Titration 2160 Amount Azithromycin 500 mg In 500 Sodium Chloride 0.9% 250 ml @ 250 mls/hr IVPB DAILY [facility] Rx#:[id number] Aztreonam 1 gm In Sodium 100 Chloride 0.9% 50 ml @ 16. 667 mls/hr IVPB Q8HR [facility] Rx#:[id number] Sodium Chloride 0.9% 1, 1560 000 ml @ 130 mls/hr IV . Q7H42M [facility] Rx#:[id number] Oral 1140 0 0 Blood Product 310 Rc Irr As1 Unit 310 [id number] Output: Urine 450 Stool 0 0 Other: Voiding Method Bedpan Diaper Diaper Diaper # Voids 1 # Bowel Movements 1 - Exam General appearance: The patient is alert, oriented, in no acute distress. HET: Head is normocephalic and atraumatic. Neck: Supple Heart: S1 S2. Regular rate and rhythm. Lungs: Diminished breath sounds over right lower lobe, without any wheezes, rhonchi or rales noted. Abdomen: Soft, nontender, nondistended with bowel sounds. No peritoneal signs. No palpable organomegaly or masses. Extremities: Normal skin color and turgor. No pedal edema. Neurological: No focal deficits. Alert and Oriented 3. - Labs CBC & Chem 7: 03/12/20 07:57 03/12/20 07:57 Labs: Abnormal Lab Results - Last 24 Hours (Table) 03/11/20 03/11/20 03/11/20 Range/Units 07: 08:19 14:59 WBC (3.8-10.6) k/uL RBC (3.80-5.40) m/uL Hgb (11.4-16.0) gm/dL Hct (34.0-46.0) % MCV (80.0-100.0) fL MCHC (31.0-37.0) g/dL RDW (11.5-15.5) % Plt Count (150-450) k/uL Neutrophils # (1.3-7.7) k/uL Lymphocytes # (1.0-4.8) k/uL Fibrinogen 906 H (200-500) mg/dL D-Dimer 1.77 H (<0.60) mg/L FEU ABG pCO2 (35-45) mmHg ABG HCO3 (21-25) mmol/L ABG Total CO2 (19-24) mmol/L ABG O2 Saturation (94-97) % Chloride (98-107) mmol/L Carbon Dioxide (22-30) mmol/L BUN (7-17) mg/dL Creatinine (0.52-1.04) mg/dL Alkaline Phosphatase (38-126) U/L Total Protein (6.3-8.2) g/dL Total Protein (PEP) (6.2-8.2) g/dL Albumin (3.5-5.0) g/dL Procalcitonin 1.34 H (0.02-0.09) ng/mL IgG (700.0-1600.0) mg/dL IgM (40.0-280.0) mg/dL Free [place] LC, Quant (0.33-1.94) mg/dL Free Lambda LC, Quant (0.57-2.63) mg/dL Crossmatch See Detail 03/11/20 03/11/20 03/11/20 Range/Units 14:59 14:59 22:28 WBC 14.8 H (3.8-10.6) k/uL RBC 1.96 L 2.91 L (3.80-5.40) m/uL Hgb 6.0 L* 8.4 L D (11.4-16.0) gm/dL Hct 20.0 L 27.2 L (34.0-46.0) % MCV 101.6 H (80.0-100.0) fL MCHC 30.2 L 30.8 L (31.0-37.0) g/dL RDW 16.6 H 20.5 H (11.5-15.5) % Plt Count 86 L 99 L (150-450) k/uL Neutrophils # 8.5 H (1.3-7.7) k/uL Lymphocytes # 0.3 L (1.0-4.8) k/uL Fibrinogen (200-500) mg/dL D-Dimer (<0.60) mg/L FEU ABG pCO2 (35-45) mmHg ABG HCO3 (21-25) mmol/L ABG Total CO2 (19-24) mmol/L ABG O2 Saturation (94-97) % Chloride (98-107) mmol/L Carbon Dioxide (22-30) mmol/L BUN (7-17) mg/dL Creatinine (0.52-1.04) mg/dL Alkaline Phosphatase (38-126) U/L Total Protein (6.3-8.2) g/dL Total Protein (PEP) 4.5 L (6.2-8.2) g/dL Albumin (3.5-5.0) g/dL Procalcitonin (0.02-0.09) ng/mL IgG 489.0 L (700.0-1600.0) mg/dL IgM 18.7 L (40.0-280.0) mg/dL Free [place] LC, Quant 9.17 H (0.33-1.94) mg/dL Free Lambda LC, Quant 5.29 H (0.57-2.63) mg/dL Crossmatch 03/12/20 03/12/20 03/12/20 Range/Units 07:57 07:57 09:31 WBC 23.4 H (3.8-10.6) k/uL RBC 3.31 L (3.80-5.40) m/uL Hgb 9.2 L (11.4-16.0) gm/dL Hct 31.4 L (34.0-46.0) % MCV (80.0-100.0) fL MCHC 29.5 L (31.0-37.0) g/dL RDW 20.5 H (11.5-15.5) % Plt Count 113 L (150-450) k/uL Neutrophils # 21.8 H (1.3-7.7) k/uL Lymphocytes # 0.9 L (1.0-4.8) k/uL Fibrinogen (200-500) mg/dL D-Dimer (<0.60) mg/L FEU ABG pCO2 28 L (35-45) mmHg ABG HCO3 17 L (21-25) mmol/L ABG Total CO2 18 L (19-24) mmol/L ABG O2 Saturation 98.2 H (94-97) % Chloride 118 H (98-107) mmol/L Carbon Dioxide 15 L (22-30) mmol/L BUN 31 H (7-17) mg/dL Creatinine 1.52 H (0.52-1.04) mg/dL Alkaline Phosphatase 161 H (38-126) U/L Total Protein 5.0 L (6.3-8.2) g/dL Total Protein (PEP) (6.2-8.2) g/dL Albumin 2.3 L (3.5-5.0) g/dL Procalcitonin (0.02-0.09) ng/mL IgG (700.0-1600.0) mg/dL IgM (40.0-280.0) mg/dL Free [place] LC, Quant (0.33-1.94) mg/dL Free Lambda LC, Quant (0.57-2.63) mg/dL Crossmatch Microbiology - Last 24 Hours (Table) 03/08/20 06:45 Blood Culture - Preliminary Blood No Growth after 96 hours 03/08/20 06:30 Blood Culture - Preliminary Blood No Growth after 96 hours Assessment and Plan (1) Anemia Narrative/Plan: This is a patient with severe anemia with drop in hemoglobin from 8.3-6.3 in the last 3 days duration, accompanied by black tarry stools for 1 day duration consistent with upper gastrointestinal bleed. The patient has been onEliquis h er atrial fibrillation with RVR, currently on hold. We are possibly dealing with an upper GI source of bleeding. Patient was scheduled for upper endoscopy today, however will be canceled due to overnight changes in respiratory status. Current Visit: Yes Status: Acute Code(s): D64.9 - ANEMIA, UNSPECIFIED SNOMED Code(s): 115664272 (2) Pneumonia Narrative/Plan: Patient having shortness of breath diagnosed with community-acquired pneumonia on broad-spectrum antibiotics. Dr. Montalvo is following patient closely. The patient was scheduled for bronchoscopy, that has been canceled as patient was having worsening respiratory distress and transferred to the ICU. Current Visit: Yes Status: Acute Code(s): J18.9 - PNEUMONIA, UNSPECIFIED ORGANISM SNOMED Code(s): 715296841 (3) Chronic kidney disease Current Visit: Yes Status: Chronic Code(s): N18.9 - CHRONIC KIDNEY DISEASE, UNSPECIFIED SNOMED Code(s): 032295096 (4) Acute exacerbation of chronic obstructive airways disease Current Visit: No Status: Acute Code(s): J44.1 - CHRONIC OBSTRUCTIVE PULMONARY DISEASE W (ACUTE) EXACERBATION SNOMED Code(s): 294537958 (5) Atrial fibrillation with RVR Current Visit: No Status: Acute Code(s): I48.91 - UNSPECIFIED ATRIAL FIBRILLATION SNOMED Code(s): 823179078669425 (6) Multiple myeloma not having achieved remission Narrative/Plan: Oncology following patient Current Visit: No Status: Chronic Priority: Medium Code(s): C90.00 - M ULTIPLE MYELOMA NOT HAVING ACHIEVED REMISSION SNOMED Code(s): 355077563 Plan: 1. Continue symptomatic and supportive care 2. Continue Protonix 40 mg twice daily 3. CBC daily, transfuse if hemoglobin less than 7 4. We'll consider rescheduling upper endoscopy for tomorrow if respiratory status improves and cleared by pulmonology 5. Oncology on consult, appreciate their recommendations 6. May start clear liquid diet Dr. Alesia Bains I agree with the dictator's note, documented as a scribe by Kristyn Gómez.
[2020-03-12] MEDS: MEROPENEM 1 GM in SODIUM CHLORIDE 0.9% 100 ML IVPB SCH ×2 (12:13→21:48)
[2020-03-12] MEDS: SODIUM CHLORIDE 0.9% 1,000 ML IV SCH ×2 (12:26→12:31)
[2020-03-12] MEDS: METOPROLOL TARTRATE 25 MG TAB PO SCH ×2 (12:29→21:49)
[2020-03-12] MEDS: POTASSIUM CHLORIDE ER 20 MEQ TAB.ER PO SCH (12:29)
[2020-03-12] MEDS: CALCIUM CARB-VIT D 500 MG-5 MCG TAB PO SCH (12:29)
[2020-03-12] MEDS: SERTRALINE 100 MG TAB PO SCH (12:47)
--- NOTE | 2020-03-12 13:35 | P.PN ---
Subjective Progress Note Date: 03/12/20 Principal diagnosis: Acute hypoxic respiratory failure secondary to acute right upper lobe pneumonia This a very pleasant 69-year-old female patient who follows with Dr. Villalobos as her primary care provider. She has a history of atrial fibrillation/flutter, congestive heart failure, chronic obstructive pulmonary disease with chronic hypoxic respiratory failure, CVA/TIA, hypertension, hyperlipidemia, rheumatoid arthritis, COPD with previous chronic tobacco dependence. She also has a history of multiple myeloma and is currently on Revlimid. She follows with Dr. Larson in this regard. She presented here to the emergency room early this morning with a 2-3 day history of increasing shortness of breath cough congestion chest tightness in the right upper chest and wheezing. No fever, chills or night sweats. No nausea vomiting or diarrhea. CoVID 19 not detected. Chest x-ray reveals evidence of a right upper lobe pneumonia. She was initiated on Rocephin and Zithromax and admitted for the same. She was also found to be in atrial flutter with a rapid ventricular response and started on Cardizem drip at 5 mg per hour. She has 0.9 normal saline at 130 ML's per hour. Her lactic acid initially was for currently down to 0.8. She is maintaining O2 saturations up to 100% on 2 L/m per nasal cannula. White count 14.0. Hemoglobin 8.1. Platelet count 134. D-dimer 1.61. Sodium 139. Potassium 4.2. Bicarb 18. Creatinine 2.64. Glucose 188. Troponin 0.014. ProBNP 2540. VQ scan pending. She is seen this morning in consultation on the selective care unit. She is currently resting flat in bed. Awake and alert in no acute distress. Feeling a bit better today compared to yesterday. Still with a loose nonproductive cough. Remains afebrile. Heart rate better controlled currently in sinus rhythm. Hemodynamically stable. The patient is seen today 03/11/2019 in follow-up on the selective care unit. He is currently sitting up in bed. Awake and alert in no acute distress. She was found to be quite anemic as morning with a hemoglobin of 6.3. Eliquis on hold. White count 9.9. Sodium 144. Potassium 5.0. Creatinine 1.56. Pro- calcitonin 1.34. Chest x-ray reveals chronic emphysematous changes with persistent right upper lung pneumonia consolidation. Right infrahilar and left basilar acute infiltrates are present. She is continued on aztreonam, azithromycin. Reevaluated today on 03/12/2020, patient developed worsening shortness of breath t his morning, she had to be placed on a nonrebreather mask, and I have made arrangements for the patient to transfer to the ICU. Chest x-ray is showing showing worsening right upper lobe pneumonia, her ABG is marginal, and I went ahead and canceled the plans for bronchoscopy and biopsy of the right upper lobe. In the meantime I have changed her antibiotics and went to full antibiotics coverage including Merrem and vancomycin, and again I counseled the bronchoscopy for today. I have explained to the patient that if I were to proceed with bronchoscopy, she would likely end up on mechanical ventilation, and would be difficult to extubate post bronchoscopy considering her worsening status today. The plan is to do bronchoscopy if her condition worsens and ends up on mechanical ventilation. Patient seems to be quite agreeable to this approach. WBC count today is up to 23.4 hemoglobin is 9.2. ABG showed a pO2 of 91 pCO2 of 28 pH of 7.38 electrolytes are normal however her bicarb is 15. Renal profile showed a BUN of 31 creatinine 1.52. Objective - Vital Signs Vital signs: Vital Signs Temp 98.9 F 03/12/20 12:00 Pulse 101 H 03/12/20 13:00 Resp 34 H 03/12/20 13:00 BP 120/56 03/12/20 13:00 Pulse Ox 92 L 03/12/20 13:00 Intake & Output 03/11/20 03/12/20 03/12/20 18:59 06:59 18:59 Intake Total 3610 0 300 Output Total 450 0 450 Balance 3160 0 -150 Weight 40 kg Intake: IV 300 Sodium Chloride 0.9% 1, 300 000 ml @ 130 mls/hr IV . Q7H42M [facility] Rx#:[id number] Intake, IV Titration 2160 Amount Azithromycin 500 mg In 500 Sodium Chloride 0.9% 250 ml @ 250 mls/hr IVPB DAILY [facility] Rx#:[id number] Aztreonam 1 gm In Sodium 100 Chloride 0.9% 50 ml @ 16. 667 mls/hr IVPB Q8HR [facility] Rx#:[id number] Sodium Chloride 0.9% 1, 1560 000 ml @ 130 mls/hr IV . Q7H42M [facility] Rx#:[id number] Oral 1140 0 0 Blood Product 310 Rc Irr As1 Unit 310 [id number] Output: Urine 450 450 Stool 0 0 Other: Voiding Method Bedpan Diaper Indwelling Catheter Diaper # Voids 1 # Bowel Movements 1 - Exam GENERAL EXAM: Revealed a 61-year-old female, frail looking, chronically ill, on a nonrebreather mask. ENT: PERRLA, EOMI, nonicteric, no neck masses, no JVD, no stridor. CHEST: No chest wall deformity. Symmetrical expansion. LUNGS: Equal air entry with diminished breath over right upper lobe, rhonchi noted bilaterally. Especially on the right side. CVS: Regular rate and rhythm, normal S1 and S2, no gallops, no murmurs, no rubs ABDOMEN: Soft, nontender. No hepatosplenomegaly, normal bowel sounds, no guarding or rigidity. EXTREMITIES: No clubbing, no edema, no cyanosis, 2+ pulses and upper and lower extremities. MUSCULOSKELETAL: Muscle strength and tone normal. SPINE: No scoliosis or deformity SKIN: No rashes CENTRAL NERVOUS SYSTEM: Alert and oriented 3, no gross focal neurologic deficits. PSYCHIATRIC: Normal mood affect and normal mental status examination - Labs CBC & Chem 7: 03/12/20 07:57 03/12/20 07:57 Labs: Abnormal Lab Results - Last 24 Hours (Table) 03/11/20 03/11/20 03/11/20 Range/Units 08:19 14:59 14:59 WBC (3.8-10.6) k/uL RBC (3.80-5.40) m/uL Hgb (11.4-16.0) gm/dL Hct (34.0-46.0) % MCV (80.0-100.0) fL MCHC (31.0-37.0) g/dL RDW (11.5-15.5) % Plt Count (150-450) k/uL Neutrophils # (1.3-7.7) k/uL Lymphocytes # (1.0-4.8) k/uL Fibrinogen 906 H (200-500) mg/dL D-Dimer 1.77 H (<0.60) mg/L FEU ABG pCO2 (35-45) mmHg ABG HCO3 (21-25) mmol/L ABG Total CO2 (19-24) mmol/L ABG O2 Saturation (94-97) % Chloride (98-107) mmol/L Carbon Dioxide (22-30) mmol/L BUN (7-17) mg/dL Creatinine (0.52-1.04) mg/dL Iron 12 L (50-170) ug/dL TIBC 147 L (228-460) ug/dL % Saturation 8.16 L (12.00-45.00) Ferritin 1634.7 H (10.0-291.0) ng/mL Alkaline Phosphatase (38-126) U/L Total Protein (6.3-8.2) g/dL Total Protein (PEP) (6.2-8.2) g/dL Albumin (3.5-5.0) g/dL IgG (700.0-1600.0) mg/dL IgM (40.0-280.0) mg/dL Free [place] LC, Quant (0.33-1.94) mg/dL Free Lambda LC, Quant (0.57-2.63) mg/dL Crossmatch See Detail 03/11/20 03/11/20 03/11/20 Range/Units 14:59 14:59 22:28 WBC 14.8 H (3.8-10.6) k/uL RBC 1.96 L 2.91 L (3.80-5.40) m/uL Hgb 6.0 L* 8.4 L D (11.4-16.0) gm/dL Hct 20.0 L 27.2 L (34.0-46.0) % MCV 101.6 H (80.0-100.0) fL MCHC 30.2 L 30.8 L (31.0-37.0) g/dL RDW 16.6 H 20.5 H (11.5-15.5) % Plt Count 86 L 99 L (150-450) k/uL Neutrophils # 8.5 H (1.3-7.7) k/uL Lymphocytes # 0.3 L (1.0-4.8) k/uL Fibrinogen (200-500) mg/dL D-Dimer (<0.60) mg/L FEU ABG pCO2 (35-45) mmHg ABG HCO3 (21-25) mmol/L ABG Total CO2 (19-24) mmol/L ABG O2 Saturation (94-97) % Chloride (98-107) mmol/L Carbon Dioxide (22-30) mmol/L BUN (7-17) mg/dL Creatinine (0.52-1.04) mg/dL Iron (50-170) ug/dL TIBC (228-460) ug/dL % Saturation (12.00-45.00) Ferritin (10.0-291.0) ng/mL Alkaline Phosphatase (38-126) U/L Total Protein (6.3-8.2) g/dL Total Protein (PEP) 4.5 L (6.2-8.2) g/dL Albumin (3.5-5.0) g/dL IgG 489.0 L (700.0-1600.0) mg/dL IgM 18.7 L (40.0-280.0) mg/dL Free [place] LC, Quant 9.17 H (0.33-1.94) mg/dL Free Lambda LC, Quant 5.29 H (0.57-2.63) mg/dL Crossmatch 03/12/20 03/12/20 03/12/20 Range/Units 07:57 07:57 09:31 WBC 23.4 H (3.8-10.6) k/uL RBC 3.31 L (3.80-5.40) m/uL Hgb 9.2 L (11.4-16.0) gm/dL Hct 31.4 L (34.0-46.0) % MCV (80.0-100.0) fL MCHC 29.5 L (31.0-37.0) g/dL RDW 20.5 H (11.5-15.5) % Plt Count 113 L (150-450) k/uL Neutrophils # 21.8 H (1.3-7.7) k/uL Lymphocytes # 0.9 L (1.0-4.8) k/uL Fibrinogen (200-500) mg/dL D-Dimer (<0.60) mg/L FEU ABG pCO2 28 L (35-45) mmHg ABG HCO3 17 L (21-25) mmol/L ABG Total CO2 18 L (19-24) mmol/L ABG O2 Saturation 98.2 H (94-97) % Chloride 118 H (98-107) mmol/L Carbon Dioxide 15 L (22-30) mmol/L BUN 31 H (7-17) mg/dL Creatinine 1.52 H (0.52-1.04) mg/dL Iron (50-170) ug/dL TIBC (228-460) ug/dL % Saturation (12.00-45.00) Ferritin (10.0-291.0) ng/mL Alkaline Phosphatase 161 H (38-126) U/L Total Protein 5.0 L (6.3-8.2) g/dL Total Protein (PEP) (6.2-8.2) g/dL Albumin 2.3 L (3.5-5.0) g/dL IgG (700.0-1600.0) mg/dL IgM (40.0-280.0) mg/dL Free [place] LC, Quant (0.33-1.94) mg/dL Free Lambda LC, Quant (0.57-2.63) mg/dL Crossmatch Microbiology - Last 24 Hours (Table) 03/08/20 06:45 Blood Culture - Preliminary Blood No Growth after 96 hours 03/08/20 06:30 Blood Culture - Preliminary Blood No Growth after 96 hours Assessment and Plan Assessment: Impression: Acute hypoxic respiratory failure secondary to community-acquired pneumonia in immunocompromised host. Leukocytosis secondary to above. Multiple myeloma, currently on Revlimid. Acute kidney injury. History of chronic obstructive pulmonary disease Acute on chronic kidney disease stage III. Paroxysmal atrial fibrillation. History of CVA. Benign essential hypertension. Dyslipidemia. Recommendation: Continue to monitor in the ICU. Broaden antibiotics coverage will use empirically Merrem and vancomycin for now. We'll cancel bronchoscopy for now, and the addressed depending on her overall clinical status. Continue bronchodilators. Continue to monitor hemoglobin and transfuse for hemoglobin below 7. Continue to hold eliquis for now. Prognosis is definitely poor and guarded. We'll continue to follow. Critical care time is over 30 minutes. Time with Patient: Greater than 30
[2020-03-12 14:13] LABS: Albumin 1.78 g/dL (3.80-4.90); Gamma Globulin 0.51 g/dL (0.70-1.50)
--- NOTE | 2020-03-12 20:46 | P.PN ---
Progress Note - Text Progress Note Date: 03/12/20 Interval history: This is a very pleasant 69-year-old patient of Dr. Villalobos. Chronic stable me dical conditions include paroxysmal atrial flutter fibrillation, , CHF with an EF of 50-55%, tricuspid and mitral regurgitation, secondary pulmonary hypertension, chronic kidney disease stage IV, hypertension, hyperlipidemia,. Patient also being treated for multiple myeloma. on REVLIMID Patient presented with shortness of breath confusion cough congestion. Admitted with right upper lobe pneumonia, acute delirium. Started on IV aztreonam and azithromycin. Denied black tarry stools. Dropped hemoglobin. 1 unit of blood given. Today-yesterday evening became more short of breath. Over the ICU. He received a unit of blood. Sitting up in bed. Tired. Short of breath. Review of systems: Was done for constitutional, cardiovascular, GI, pulmonary. relevant finding as above Active Medications Acetaminophen (Acetaminophen Tab 325 Mg Tab) 650 mg PO Q4HR PRN PRN Reason: Fever and/ or Pain Last Admin: 03/11/20 22:00 Dose: 650 mg Documented by: Albuterol/Ipratropium (Ipratropium-Albuterol 3 Ml Neb) 3 ml INHALATION RT-Q4H [facility] Last Admin: 03/12/20 19:32 Dose: 3 ml Documented by: Budesonide/Formoterol Fumarate (Symbicort 160-4.5 Mcg Inhaler) 2 puff I NHALATION RT-BID [facility] Last Admin: 03/12/20 19:32 Dose: 2 puff Documented by: Calcitriol (Calcitriol 0.25 Mcg Cap) 0.25 mcg PO PC-LUNCH [facility] Last Admin: 03/12/20 12:47 Dose: 0.25 mcg Documented by: Calcium Carbonate (Calcium Carb-Vit D 500mg-200un 1 Each Tab) 2 each PO DAILY@1200 [facility] Last Admin: 03/12/20 12:29 Dose: 2 each Documented by: Guaifenesin (Guaifenesin 600 Mg Tablet.Er) 600 mg PO Q8HR [facility] Last Admin: 03/12/20 18:03 Dose: Not Given Documented by: Lactated Ringer's (Lactated Ringers) 1,000 mls @ 20 mls/hr IV .Q24H [facility] Last Admin: 03/12/20 03:58 Dose: Not Given Documented by: Meropenem 1 gm/ Sodium (Chloride) 100 mls @ 33.3 mls/hr IVPB Q12HR [facility]; Protocol Last Admin: 03/12/20 12:13 Dose: 33.3 mls/hr Documented by: Vancomycin HCl 750 mg/ Sodium (Chloride) 250 mls @ 125 mls/hr IVPB ONCE ONE Stop: 03/13/20 10:59 Sodium Chloride (Saline 0.9%) 1,000 mls @ 100 mls/hr IV .Q10H [facility] Last Admin: 03/12/20 12:31 Dose: 100 mls/hr Documented by: Latanoprost (Latanoprost 0.005% Ophth Drops 2.5 Ml Btl) 1 drops [facility] Last Admin: 03/11/20 22:01 Dose: 1 drops Documented by: Methylprednisolone Sodium Succinate (Methylprednisolone Sod Succi 125 Mg/2 Ml Vial) 60 mg IV Q6HR [facility] Last Admin: 03/12/20 18:05 Dose: 60 mg Documented by: Metoprolol Tartrate (Metoprolol Tartrate 25 Mg Tab) 25 mg PO BID@1200,2100 [facility] Last Admin: 03/12/20 12:29 Dose: 25 mg Documented by: Miscellaneous Information (Pneumonia Protocol Utilized 1 Each [facility]) 1 each PO ONCE PRN PRN Reason: Per Protocol Miscellaneous Information (Vancomycin Iv Per Pharmacy 1 Each [facility]) 1 each MISCELLANE DIRECTED PRN; Protocol PRN Reason: Per Protocol Pantoprazole Sodium (Pantoprazole 40 Mg Tablet) 40 mg PO AC-BID [facility] Last Admin: 03/12/20 18:03 Dose: Not Given Documented by: Potassium Chloride (Potassium Chloride Er 20 Meq Tab.Er) 20 meq PO PC-LUNCH [facility] Last Admin: 03/12/20 12:29 Dose: 20 meq Documented by: Sertraline HCl (Sertraline 100 Mg Tab) 200 mg PO PC-LUNCH [facility] Last Admin: 03/12/20 12:47 Dose: 200 mg Documented by: Sodium Bicarbonate (Sodium Bicarbonate Tab 650 Mg Tab) 1,300 mg PO DAILY@1200 [facility] Last Admin: 03/11/20 22:00 Dose: 1,300 mg Documented by: Sodium Bicarbonate (Sodium Bicarbonate Tab 650 Mg Tab) 650 mg PO [facility] Last Admin: 03/11/20 22:01 Dose: Not Given Documented by: Physical examination: VITAL SIGNS: 98.9, 73, 22, 108/44,, 94% on 13 L GENERAL: Sitting up in bed, tired, short of breath EYES: Pupils equal. Conjunctiva pale HEENT: External appearance of nose and ears normal, oral cavity grossly normal. NECK: JVD not raised; masses not palpable. HEART: First and second heart sounds are normal; no edema. LUNGS: Respiratory rate increased, decreased breath sounds some crackles, ABDOMEN: Soft, nontender, liver spleen not palpable, no masses palpable. PSYCH: Alert and oriented x3; mood and affect anxious MUSCULOSKELETAL: Diffuse wasting of muscles Investigations, reviewed in the clinical context: March 12: White count 23.4 hemoglobin 9.2 platelets 113. Check stat x-ray film-right upper lobe dense infiltrate March 11: White count 9.2 hemoglobin 6 platelets 86potassium 5 creatinine 1.56 pro-calcitonin 1.34 Pro-calcitonin 1.84 White count 14 hemoglobin 8.1 platelets 134 potassium 4.2 BUN 47 creatinine 2.64 Lactic acid 4.9 Coronavirus P/Cr-not detected VQ scan-low probability for PE EKG tracing personally reviewed by me-normal sinus rhythm some ST segment changes Chest c-ofk-[id number] infiltrate throughout the right upper lobe and the superior segment of the right lower lobe Assessment: -Right upper lobe pneumonia, suspect gram-negative organism in an immunosuppressed patient, , POA,-slow to respond -Acute GI bleed patient having dark stools.-new diagnosis -Paroxysmal atrial flutter and fibrillation-with rapid ventricular rate then went back into sinus rhythm -Anemia multifactorial including that of chronic disease including multiple myeloma -Acute COPD exacerbation in a ex-smoker, -Chronic congestive heart failure from systolic and diastolic dysfunction EF 50- 55% -Moderate tricuspid and severe mitral regurgitation, nontraumatic -Severe secondary pulmonary hypertension secondary to CHF and COPD -Multiple myeloma on chemotherapy -Chronic kidney disease secondary to multiple myeloma stage IV and chronic interstitial nephropathy -Essential hypertension -Hyperlipidemia -Severe protein calorie malnutrition due to poor oral intake. BMI 14.4 -Chronic medical debility -Multiple old rib fractures due to multiple myeloma -Normocytic anemia due to multiple myeloma and chronic kidney disease -Acute GI bleed dropping hemoglobin down to 6. -Acute hypoxic respiratory failure-worsening currently on 13 L of oxygen Plan: IVs aztreonam. Bronchodilators. Patient is to unstable for any GI endoscopy on her bronchoscopy at the present time. Remains in ICU..
[2020-03-12] MEDS: LATANOPROST 0.005% OPHTH DROPS 2.5 ML BTL BOTH EYES SCH (21:48)
[2020-03-12] MEDS: SODIUM BICARBONATE TAB 650 MG TAB PO SCH (21:49)
--- NOTE | 2020-03-12 22:36 | PN ---
PROGRESS NOTE DATE OF SERVICE: 03/12/2020 REASON FOR FOLLOWUP: Pneumonia. INTERVAL HISTORY: Patient did have worsening of her respiratory status and the patient has been transferred down to the ICU. The patient is currently on high-flow nasal cannula oxygen. The patient denies having any chest pain, cough, not bringing up sputum. No vomiting. No abdominal pain. No diarrhea. PHYSICAL EXAMINATION: Blood pressure 112/52 with a pulse of 78, temperature 96.4. She is 99% on 3 L high- flow oxygen. General description is an elderly female lying in bed in no distress. Respiratory system: Unlabored breathing, coarse breath sounds bilaterally. No wheeze. Heart S1, S2. Regular rate and rhythm. Abdomen soft, no tenderness. LAB: Hemoglobin 9.1, white count 3.4. BUN of 31, creatinine 1.52. DIAGNOSTIC IMPRESSION AND PLAN: Patient with pneumonia in this patient who has shown worsening despite being on Azactam and Zithromax. Antibiotic has been adjusted to meropenem, vancomycin to continue. We will try to obtain a sputum to narrow down antibiotics and continue supportive care. MMODL / IJN: [id number] /
[2020-03-13] MEDS: IPRATROPIUM-ALBUTEROL 3 ML NEB INHALATION SCH ×7 (00:23→23:08)
[2020-03-13] MEDS: guaiFENesin 600 MG TABLET.ER PO SCH ×3 (00:24→16:19)
[2020-03-13] MEDS: methylPREDNISolone SOD SUCCI 125 MG/2 ML VIAL IV SCH ×4 (00:24→17:54)
[2020-03-13] MEDS: LACTATED RINGERS 1,000 ML IV SCH (05:24)
[2020-03-13] MEDS: SYMBICORT 160-4.5 MCG INHALER INHALATION SCH ×2 (05:48→18:11)
[2020-03-13 06:15] LABS: Anisocytosis Moderate; HCT 28.9 % (34.0-46.0); HGB 8.7 gm/dL (11.4-16.0); Hypochromasia Marked; MCH 28.5 pg (25.0-35.0); MCV 95.2 fL (80.0-100.0); Macrocytosis Slight; Mean Platelet Volume 9.1; Poikilocytosis Moderate; RBC 3.04 m/uL (3.80-5.40); RDW 20.2 % (11.5-15.5); WBC 15.4 k/uL (3.8-10.6)
[2020-03-13 07:11] LABS: Reticulocyte % 1.1 % (0.5-2.0)
[2020-03-13 07:17] LABS: Calcium 8.4 mg/dL (8.4-10.2); Potassium 4.7 mmol/L (3.5-5.1)
[2020-03-13] MEDS: SODIUM CHLORIDE 0.9% 1,000 ML IV SCH ×3 (07:46→17:57)
[2020-03-13] MEDS: PANTOPRAZOLE 40 MG TABLET PO SCH ×2 (07:54→17:55)
[2020-03-13] MEDS: MEROPENEM 1 GM in SODIUM CHLORIDE 0.9% 100 ML IVPB SCH ×2 (07:54→20:54)
--- NOTE | 2020-03-13 08:21 | XR ---
EXAMINATION TYPE: XR chest 1V portable DATE OF EXAM: 03/13/2020 COMPARISON: 03/12/2020 INDICATION: 03/12/2020 TECHNIQUE: Single frontal view of the chest is obtained. FINDINGS: The heart size is normal. The pulmonary vasculature is normal. There is a large consolidation right upper lobe. Some cavitation may be developing in the right upper periphery. Scattered diffuse groundglass opacities are present through the remaining portions of the lungs. Old bilateral rib fractures are again evident. IMPRESSION: 1. Right upper lobe consolidation. Some developing cavitation in the periphery of the upper outer rig ht lung is not excluded.
[2020-03-13] MEDS ORDERED: VANCOMYCIN 750 MG in SODIUM CHLORIDE 0.9% 250 ML IVPB ONE (09:00)
[2020-03-13 10:00] LABS: Platelet Count 91 k/uL (150-450)
[2020-03-13] MEDS: METOPROLOL TARTRATE 25 MG TAB PO SCH ×2 (12:46→20:55)
[2020-03-13] MEDS: CALCIUM CARB-VIT D 500 MG-5 MCG TAB PO SCH (12:46)
[2020-03-13] MEDS: SODIUM BICARBONATE TAB 650 MG TAB PO SCH ×2 (12:46→20:55)
[2020-03-13] MEDS: POTASSIUM CHLORIDE ER 20 MEQ TAB.ER PO SCH (12:46)
[2020-03-13] MEDS: SERTRALINE 100 MG TAB PO SCH (12:47)
--- NOTE | 2020-03-13 13:07 | P.PN ---
Subjective Progress Note Date: 03/13/20 Principal diagnosis: Anemia and melena Is a 69-year-old pleasant female patient with a history of COPD, multiple myeloma and congestive heart failure admitted to the hospital for shortness of breath. Still has a history of atrial fibrillation has been on eliquis which is on hold. The patient was diagnosed with community-acquired pneumonia and placed on broad-spectrum antibiotics. While in the hospital she developed some dark tarry stools for 1 day duration a drop in her hemoglobin. She was transfused with 1 unit of packed red blood cell, today's hemoglobin is 8.7 with no further episodes of dark tarry stools. She is seen in the ICU lying in bed, she does not appear in any acute distress at this time. She states she still having shortness of breath. Knowledge he is following patient closely. The nurse reports she had a bowel movement yesterday that was brown.. She denies abdominal pain, nausea, or vomiting. She remains on 12 L high flow cannula. Objective - Vital Signs Vital signs: Vital Signs Temp 96.3 F L 03/13/20 04:00 Pulse 80 03/13/20 07:00 Resp 38 H 03/13/20 07:00 BP 129/66 03/13/20 07:00 Pulse Ox 93 L 03/13/20 07:00 Intake & Output 03/12/20 03/13/20 03/13/20 18:59 06:59 18:59 Intake Total 1000 1690 110 Output Total 720 250 30 Balance 280 1440 80 Weight 40 kg 43 kg Intake: IV 1000 1330 110 Meropenem 1 gm In Sodium 100 Chloride 0.9% 100 ml @ 33 .3 mls/hr IVPB Q12HR [facility] Rx#:[id number] Sodium Chloride 0.9% 1, 1000 1230 110 000 ml @ 130 mls/hr IV . Q7H42M [facility] Rx#:[id number] Oral 0 360 Output: Urine 720 250 30 Other: Voiding Method Indwelling Catheter Indwelling Catheter - Exam General appearance: The patient is alert, oriented, in no acute distress. HET: Head is normocephalic and atraumatic. Neck: Supple Heart: S1 S2. Regular rate and rhythm. Lungs: Diminished breath sounds over right lower lobe, without any wheezes, rhonchi or rales noted. Abdomen: Soft, nontender, nondistended with bowel sounds. No peritoneal signs. No palpable organomegaly or masses. Extremities: Normal skin color and turgor. No pedal edema. Neurological: No focal deficits. Alert and Oriented 3. - Labs CBC & Chem 7: 03/13/20 05:30 03/13/20 05:30 Labs: Abnormal Lab Results - Last 24 Hours (Table) 03/11/20 03/11/20 03/12/20 Range/Units 14:59 14:59 07:57 WBC (3.8-10.6) k/uL RBC (3.80-5.40) m/uL Hgb (11.4-16.0) gm/dL Hct (34.0-46.0) % MCHC (31.0-37.0) g/dL RDW (11.5-15.5) % ABG pCO2 (35-45) mmHg ABG HCO3 (21-25) mmol/L ABG Total CO2 (19-24) mmol/L ABG O2 Saturation (94-97) % Chloride 118 H (98-107) mmol/L Carbon Dioxide 15 L (22-30) mmol/L BUN 31 H (7-17) mg/dL Creatinine 1.52 H (0.52-1.04) mg/dL Glucose (74-99) mg/dL Iron 12 L (50-170) ug/dL TIBC 147 L (228-460) ug/dL % Saturation 8.16 L (12.00-45.00) Ferritin 1634.7 H (10.0-291.0) ng/mL Alkaline Phosphatase 161 H (38-126) U/L Total Protein 5.0 L (6.3-8.2) g/dL Albumin 2.3 L (3.5-5.0) g/dL Albumin (PEP) 1.78 L (3.80-4.90) g/dL Xykjp-0-Wzfanzuum 0.67 H (0.10-0.40) g/dL Beta Globulins 0.59 L (0.60-1.30) g/dL Gamma Globulins 0.51 L (0.70-1.50) g/dL 03/12/20 03/13/20 03/13/20 Range/Units 09:31 05:30 05:30 WBC 15.4 H (3.8-10.6) k/uL RBC 3.04 L (3.80-5.40) m/uL Hgb 8.7 L (11.4-16.0) gm/dL Hct 28.9 L (34.0-46.0) % MCHC 30.0 L (31.0-37.0) g/dL RDW 20.2 H (11.5-15.5) % ABG pCO2 28 L (35-45) mmHg ABG HCO3 17 L (21-25) mmol/L ABG Total CO2 18 L (19-24) mmol/L ABG O2 Saturation 98.2 H (94-97) % Chloride 121 H (98-107) mmol/L Carbon Dioxide 17 L (22-30) mmol/L BUN 36 H (7-17) mg/dL Creatinine 1.48 H (0.52-1.04) mg/dL Glucose 126 H (74-99) mg/dL Iron (50-170) ug/dL TIBC (228-460) ug/dL % Saturation (12.00-45.00) Ferritin (10.0-291.0) ng/mL Alkaline Phosphatase (38-126) U/L Total Protein (6.3-8.2) g/dL Albumin (3.5-5.0) g/dL Albumin (PEP) (3.80-4.90) g/dL Husrw-1-Ugapbykvq (0.10-0.40) g/dL Beta Globulins (0.60-1.30) g/dL Gamma Globulins (0.70-1.50) g/dL Microbiology - Last 24 Hours (Table) 03/08/20 06:30 Blood Culture - Preliminary Blood No Growth after 120 hours 03/08/20 06:45 Blood Culture - Preliminary Blood No Growth after 120 hours Assessment and Plan (1) Anemia Narrative/Plan: This is a patient with severe anemia with drop in hemoglobin from 8.3-6.3 in the last 3 days duration, accompanied by black tarry stools for 1 day duration consistent with upper gastrointestinal bleed. The patient has been onEliquis her atrial fibrillation with RVR, currently on hold. We are possibly dealing wi th an upper GI source of bleeding. Patient was scheduled for upper endoscopy, offers currently canceled and on hold until respiratory status improves. Current Visit: Yes Status: Acute Code(s): D64.9 - ANEMIA, UNSPECIFIED SNOMED Code(s): 117770936 (2) Pneumonia Narrative/Plan: Patient having shortness of breath diagnosed with community-acquired pneumonia on broad-spectrum antibiotics. Dr. Montalvo is following patient closely. The patient was scheduled for bronchoscopy, that has been canceled as patient was having worsening respiratory distress and transferred to the ICU. Current Visit: Yes Status: Acute Code(s): J18.9 - PNEUMONIA, UNSPECIFIED ORGANISM SNOMED Code(s): 856832152 (3) Chronic kidney disease Current Visit: Yes Status: Chronic Code(s): N18.9 - CHRONIC KIDNEY DISEASE, UNSPECIFIED SNOMED Code(s): 253577758 (4) Acute exacerbation of chronic obstructive airways disease Current Visit: No Status: Acute Code(s): J44.1 - CHRONIC OBSTRUCTIVE PULMONARY DISEASE W (ACUTE) EXACERBATION SNOMED Code(s): 843011483 (5) Atrial fibrillation with RVR Current Visit: No Status: Acute Code(s): I48.91 - UNSPECIFIED ATRIAL FIBRILLATION SNOMED Code(s): 364756901238489 (6) Multiple myeloma not having achieved remission Narrative/Plan: Oncology following patient Current Visit: No Status: Chronic Priority: Medium Code(s): C90.00 - MULTIPLE MYELOMA NOT HAVING ACHIEVED REMISSION SNOMED Code(s): 904159992 Plan: 1. Continue symptomatic and supportive care 2. Continue Protonix 40 mg twice daily 3. CBC daily, transfuse if hemoglobin less than 7 4. We'll consider rescheduling upper endoscopy if respiratory status improves and cleared by pulmonology 5. Oncology on consult, appreciate their recommendations 6. May and stated as tolerated Dr. Alesia Bains I agree with the dictator's note, documented as a scribe by Kristyn Gómez.
--- NOTE | 2020-03-13 13:30 | P.PN ---
Subjective Progress Note Date: 03/13/20 Principal diagnosis: Acute hypoxic respiratory failure secondary to acute right upper lobe pneumonia This a very pleasant 69-year-old female patient who follows with Dr. Villalobos as her primary care provider. She has a history of atrial fibrillation/flutter, congestive heart failure, chronic obstructive pulmonary disease with chronic hypoxic respiratory failure, CVA/TIA, hypertension, hyperlipidemia, rheumatoid arthritis, COPD with previous chronic tobacco dependence. She also has a history of multiple myeloma and is currently on Revlimid. She follows with Dr. Larson in this regard. She presented here to the emergency room early this morning with a 2-3 day history of increasing shortness of breath cough congestion chest tightness in the right upper chest and wheezing. No fever, chills or night sweats. No nausea vomiting or diarrhea. CoVID 19 not detected. Chest x-ray reveals evidence of a right upper lobe pneumonia. She was initiated on Rocephin and Zithromax and admitted for the same. She was also found to be in atrial flutter with a rapid ventricular response and started on Cardizem drip at 5 mg per hour. She has 0.9 normal saline at 130 ML's per hour. Her lactic acid initially was for currently down to 0.8. She is maintaining O2 saturations up to 100% on 2 L/m per nasal cannula. White count 14.0. Hemoglobin 8.1. Platelet count 134. D-dimer 1.61. Sodium 139. Potassium 4.2. Bicarb 18. Creatinine 2.64. Glucose 188. Troponin 0.014. ProBNP 2540. VQ scan pending. She is seen this morning in consultation on the selective care unit. She is currently resting flat in bed. Awake and alert in no acute distress. Feeling a bit better today compared to yesterday. Still with a loose nonproductive cough. Remains afebrile. Heart rate better controlled currently in sinus rhythm. Hemodynamically stable. The patient is seen today 03/11/2019 in follow-up on the selective care unit. He is currently sitting up in bed. Awake and alert in no acute distress. She was found to be quite anemic as morning with a hemoglobin of 6.3. Eliquis on hold. White count 9.9. Sodium 144. Potassium 5.0. Creatinine 1.56. Pro- calcitonin 1.34. Chest x-ray reveals chronic emphysematous changes with persistent right upper lung pneumonia consolidation. Right infrahilar and left basilar acute infiltrates are present. She is continued on aztreonam, azithromycin. Reevaluated today on 03/12/2020, patient developed worsening shortness of breath t his morning, she had to be placed on a nonrebreather mask, and I have made arrangements for the patient to transfer to the ICU. Chest x-ray is showing showing worsening right upper lobe pneumonia, her ABG is marginal, and I went ahead and canceled the plans for bronchoscopy and biopsy of the right upper lobe. In the meantime I have changed her antibiotics and went to full antibiotics coverage including Merrem and vancomycin, and again I counseled the bronchoscopy for today. I have explained to the patient that if I were to proceed with bronchoscopy, she would likely end up on mechanical ventilation, and would be difficult to extubate post bronchoscopy considering her worsening status today. The plan is to do bronchoscopy if her condition worsens and ends up on mechanical ventilation. Patient seems to be quite agreeable to this approach. WBC count today is up to 23.4 hemoglobin is 9.2. ABG showed a pO2 of 91 pCO2 of 28 pH of 7.38 electrolytes are normal however her bicarb is 15. Renal profile showed a BUN of 31 creatinine 1.52. The patient was reevaluated today on 03/13/2020, remains in the ICU, patient is now on 12 L high flow nasal cannula, O2 saturation is 95%, LV that she feels a bit better compared to how she felt yesterday. Continues to have cough, but cough is productive with brownish phlegm. Chest x-ray in slightly improved, patient is now on vancomycin and Merrem. Cultures so far remain nondiagnostic. Recommended sputum cultures, and the are pending. Patient remains extremely marginal and high risk for bronchoscopy without having to intubate the patient. Hence I would hold on the bronchoscopy plans for now. IV fluid is at 100 mL per hour. WBC count is improving down to 15.4 from 23.4. Renal functioning is improving, BUN is 56 creatinine is down to 1.48. Objective - Vital Signs Vital signs: Vital Signs Temp 97 F L 03/13/20 12:00 Pulse 86 03/13/20 13:00 Resp 24 03/13/20 13:00 BP 114/61 03/13/20 13:00 Pulse Ox 92 L 03/13/20 13:00 Intake & Output 03/12/20 03/13/20 03/13/20 18:59 06:59 18:59 Intake Total 1000 1690 1080 Output Total 720 250 195 Balance 280 1440 885 Weight 40 kg 43 kg Intake: IV 1000 1330 1080 Meropenem 1 gm In Sodium 100 500 Chloride 0.9% 100 ml @ 33 .3 mls/hr IVPB Q12HR [facility] Rx#:[id number] Sodium Chloride 0.9% 1, 1000 1230 330 000 ml @ 130 mls/hr IV . Q7H42M [facility] Rx#:[id number] Vancomycin 750 mg In 250 Sodium Chloride 0.9% 250 ml @ 125 mls/hr IVPB ONCE [facility] Rx#:[id number] Oral 0 360 Output: Urine 720 250 195 Other: Voiding Method Indwelling Catheter Indwelling Catheter Indwelling Catheter - Exam GENERAL EXAM: Revealed a 61-year-old female, frail looking, chronically ill, on 12 L high flow nasal cannula with O2 saturation 95% ENT: PERRLA, EOMI, nonicteric, no neck masses, no JVD, no stridor. CHEST: No chest wall deformity. Symmetrical expansion. LUNGS: Rhonchi on the right side noted otherwise unremarkable. CVS: Regular rate and rhythm, normal S1 and S2, no gallops, no murmurs, no rubs ABDOMEN: Soft, nontender. No hepatosplenomegaly, normal bowel sounds, no guarding or rigidity. EXTREMITIES: No clubbing, no edema, no cyanosis, 2+ pulses and upper and lower extremities. MUSCULOSKELETAL: Muscle strength and tone normal. SPINE: No scoliosis or deformity SKIN: No rashes CENTRAL NERVOUS SYSTEM: Alert and oriented 3, no gross focal neurologic deficits. PSYCHIATRIC: Normal mood affect and normal mental status examination - Labs CBC & Chem 7: 03/13/20 05:30 03/13/20 05:30 Labs: Abnormal Lab Results - Last 24 Hours (Table) 03/11/20 03/13/20 03/13/20 Range/Units 14:59 05:30 05:30 WBC 15.4 H (3.8-10.6) k/uL RBC 3.04 L (3.80-5.40) m/uL Hgb 8.7 L (11.4-16.0) gm/dL Hct 28.9 L (34.0-46.0) % MCHC 30.0 L (31.0-37.0) g/dL RDW 20.2 H (11.5-15.5) % Plt Count 91 L (150-450) k/uL Chloride 121 H (98-107) mmol/L Carbon Dioxide 17 L (22-30) mmol/L BUN 36 H (7-17) mg/dL Creatinine 1.48 H (0.52-1.04) mg/dL Glucose 126 H (74-99) mg/dL Albumin (PEP) 1.78 L (3.80-4.90) g/dL Rfgmc-5-Venzwniwx 0.67 H (0.10-0.40) g/dL Beta Globulins 0.59 L (0.60-1.30) g/dL Gamma Globulins 0.51 L (0.70-1.50) g/dL Microbiology - Last 24 Hours (Table) 03/08/20 06:30 Blood Culture - Preliminary Blood No Growth after 120 hours 03/08/20 06:45 Blood Culture - Preliminary Blood No Growth after 120 hours Assessment and Plan Assessment: Impression: Acute hypoxic respiratory failure secondary to community-acquired pneumonia in immunocompromised host. Leukocytosis secondary to above. Multiple myeloma, currently on Revlimid. Acute kidney injury. History of chronic obstructive pulmonary disease Acute on chronic kidney disease stage III. Paroxysmal atrial fibrillation. History of CVA. Benign essential hypertension. Dyslipidemia. Recommendation: Continue to monitor in the ICU. Continue Merrem and vancomycin. No plans to bronchoscope the patient today. Continue bronchodilators. Continue to monitor hemoglobin and transfuse for hemoglobin below 7. Continue to hold eliquis for now. Slight improvement compared to yesterday. We'll continue to follow. Time with Patient: Less than 30
--- NOTE | 2020-03-13 17:39 | PN ---
PROGRESS NOTE DATE OF SERVICE: 03/13/2020 REASON FOR FOLLOWUP: Pneumonia. INTERVAL HISTORY: Patient is currently afebrile. Patient is breathing comfortably. Denies having any chest pain. Breathing has improved. No nausea, no vomiting. No abdominal pain or diarrhea. PHYSICAL EXAMINATION: Blood pressure is 123/57, pulse of 90, temperature 97. She is 95% on high-flow oxygen. General description is an elderly female lying in bed in no distress. Respiratory system: Unlabored breathing. Coarse breath sounds bilaterally. No wheeze. Heart S1, S2. Regular rate and rhythm. ABDOMEN: Soft. No tenderness. LABS: Hemoglobin 8.7, white count 15.4. BUN of 36, creatinine 1.48. DIAGNOSTIC IMPRESSION AND PLAN: Patient with pneumonia. This patient did have MULTIPLE ANTIBIOTIC ALLERGIES. Patient is currently covered with vancomycin and meropenem to continue. Sputum has been provided. Cultures will be followed and antibiotic adjusted further. Continue supportive care. MMODL / IJN: [id number] /
[2020-03-13] MEDS: LATANOPROST 0.005% OPHTH DROPS 2.5 ML BTL BOTH EYES SCH (20:55)
--- NOTE | 2020-03-13 21:45 | P.PN ---
Progress Note - Text Progress Note Date: 03/13/20 Interval history: This is a very pleasant 69-year-old patient of Dr. Villalobos. Chronic stable me dical conditions include paroxysmal atrial flutter fibrillation, , CHF with an EF of 50-55%, tricuspid and mitral regurgitation, secondary pulmonary hypertension, chronic kidney disease stage IV, hypertension, hyperlipidemia,. Patient also being treated for multiple myeloma. on REVLIMID Patient presented with shortness of breath confusion cough congestion. Admitted with right upper lobe pneumonia, acute delirium. Started on IV aztreonam and azithromycin. Developed black tarry stools. Dropped hemoglobin. 1 unit of blood given. Patient desaturated. Moved to the ICU on March 11. [id number] in bed. Breathing a bit better. On clear liquid diet. No further bleeding. Short of breath. Tired Review of systems: Was done for constitutional, cardiovascular, GI, pulmonary. relevant finding as above Active Medications Acetaminophen (Acetaminophen Tab 325 Mg Tab) 650 mg PO Q4HR PRN PRN Reason: Fever and/ or Pain Last Admin: 03/11/20 22:00 Dose: 650 mg Documented by: Albuterol/Ipratropium (Ipratropium-Albuterol 3 Ml Neb) 3 ml INHALATION RT-Q4H [facility] Last Admin: 03/13/20 18:11 Dose: 3 ml Documented by: Budesonide/Formoterol Fumarate (Symbicort 160-4.5 Mcg Inhaler) 2 puff INHALATION RT-BID [facility] Last Admin: 03/13/20 18:11 Dose: 2 puff Documented by: Calcitriol (Calcitriol 0.25 Mcg Cap) 0.25 mcg PO PC-LUNCH [facility] Last Admin: 03/13/20 12:47 Dose: 0.25 mcg Documented by: Calcium Carbonate (Calcium Carb-Vit D 500mg-200un 1 Each Tab) 2 each PO DAILY@1200 [facility] Last Admin: 03/13/20 12:46 Dose: 2 each Documented by: Guaifenesin (Guaifenesin 600 Mg Tablet.Er) 600 mg PO Q8HR [facility] Last Admin: 03/13/20 16:19 Dose: 600 mg Documented by: Lactated Ringer's (Lactated Ringers) 1,000 mls @ 20 mls/hr IV .Q24H [facility] Last Admin: 03/13/20 05:24 Dose: Not Given Documented by: Meropenem 1 gm/ Sodium (Chloride) 100 mls @ 33.3 mls/hr IVPB Q12HR [facility]; Protocol Last Admin: 03/13/20 20:54 Dose: 33.3 mls/hr Documented by: Sodium Chloride (Saline 0.9%) 1,000 mls @ 100 mls/hr IV .Q10H [facility] Last Admin: 03/13/20 17:57 Dose: 100 mls/hr Documented by: Latanoprost (Latanoprost 0.005% Ophth Drops 2.5 Ml Btl) 1 drops BOTH EYES [facility] Last Admin: 03/13/20 20:55 Dose: 1 drops Documented by: Methylprednisolone Sodium Succinate (Methylprednisolone Sod Succi 125 Mg/2 Ml Vial) 60 mg IV Q6HR [facility] Last Admin: 03/13/20 17:54 Dose: 60 mg Documented by: Metoprolol Tartrate (Metoprolol Tartrate 25 Mg Tab) 25 mg PO BID@1200,2100 [facility] Last Admin: 03/13/20 20:55 Dose: 25 mg Documented by: Miscellaneous Information (Pneumonia Protocol Utilized 1 Each [facility] [place]) 1 each PO ONCE PRN PRN Reason: Per Protocol Miscellaneous Information (Vancomycin Iv Per Pharmacy 1 [facility] [place]) 1 each MISCELLANE DIRECTED PRN; Protocol PRN Reason: Per Protocol Pantoprazole Sodium (Pantoprazole 40 Mg Tablet) 40 mg PO AC-BID [facility] Last Admin: 03/13/20 17:55 Dose: 40 mg Documented by: Potassium Chloride (Potassium Chloride Er 20 Meq Tab.Er) 20 meq PO PC-LUNCH [facility] Last Admin: 03/13/20 12:46 Dose: 20 meq Documented by: Sertraline HCl (Sertraline 100 Mg Tab) 200 mg PO PC-LUNCH [facility] Last Admin: 03/13/20 12:47 Dose: 200 mg Documented by: Sodium Bicarbonate (Sodium Bicarbonate Tab 650 Mg Tab) 1,300 mg PO DAILY@1200 [facility] Last Admin: 03/13/20 12:46 Dose: 1,300 mg Documented by: Sodium Bicarbonate (Sodium Bicarbonate Tab 650 Mg Tab) 650 mg PO [facility] Last Admin: 03/13/20 20:55 Dose: 650 mg Documented by: Physical examination: VITAL SIGNS: 97.5, 70, 22, 122/52, 100% on 2 L GENERAL: Sitting up in bed, tired, less short of breath EYES: Pupils equal. Conjunctiva pale HEENT: External appearance of nose and ears normal, oral cavity grossly normal. NECK: JVD not raised; masses not palpable. HEART: First and second heart sounds are normal; no edema. LUNGS: Respiratory rate increased, decreased breath sounds mild wheezing, ABDOMEN: Soft, nontender, liver spleen not palpable, no masses palpable. PSYCH: Alert and oriented x3; mood and affect anxious MUSCULOSKELETAL: Diffuse wasting of muscles Investigations, reviewed in the clinical context: March 13: White count 15.4 hemoglobin 8.7 platelets 91 bun 36 creatinine 1.48 March 12: White count 23.4 hemoglobin 9.2 platelets 113. Check stat x-ray film-right upper lobe dense infiltrate March 11: White count 9.2 hemoglobin 6 platelets 86potassium 5 creatinine 1.56 pro-calcitonin 1.34 Pro-calcitonin 1.84 White count 14 hemoglobin 8.1 platelets 134 potassium 4.2 BUN 47 creatinine 2.64 Lactic acid 4.9 Coronavirus P/Cr-not detected VQ scan-low probability for PE EKG tracing personally reviewed by me-normal sinus rhythm some ST segment changes Chest g-hjq-gfquny infiltrate throughout the right upper lobe and the superior segment of the right lower lobe Assessment: -Right upper lobe pneumonia, suspect gram-negative organism in an immunosuppressed patient, , POA,-slow to respond -Acute GI bleed patient having dark stools. -Paroxysmal atrial flutter and fibrillation-with rapid ventricular rate then went back into sinus rhythm -Anemia multifactorial including that of chronic disease including multiple myeloma -Acute COPD exacerbation in a ex-smoker, -Chronic congestive heart failure from systolic and diastolic dysfunction EF 50- 55% -Moderate tricuspid and severe mitral regurgitation, nontraumatic -Severe secondary pulmonary hypertension secondary to CHF and COPD -Multiple myeloma on chemotherapy -Chronic kidney disease secondary to multiple myeloma stage IV and chronic interstitial nephropathy -Essential hypertension -Hyperlipidemia -Severe protein calorie malnutrition due to poor oral intake. BMI 14.4 -Chronic medical debility -Multiple old rib fractures due to multiple myeloma -Acute GI bleed dropping hemoglobin down to 6. -Acute hypoxic respiratory failure- currently on 12 L of oxygen-slow to respond Plan: Patient currently on bronchodilators, IV meropenem, IV Solu-Medrol, IV vancomycin. For now EGD and bronchoscopy has been postponed. Follow with consultants. Discussed with the patient.
[2020-03-14] MEDS: methylPREDNISolone SOD SUCCI 125 MG/2 ML VIAL IV SCH ×4 (00:27→18:56)
[2020-03-14] MEDS: LACTATED RINGERS 1,000 ML IV SCH (00:27)
[2020-03-14] MEDS: guaiFENesin 600 MG TABLET.ER PO SCH ×3 (00:28→15:59)
[2020-03-14] MEDS: IPRATROPIUM-ALBUTEROL 3 ML NEB INHALATION SCH ×7 (03:26→23:09)
[2020-03-14 04:58] LABS: Anisocytosis Moderate; HCT 24.4 % (34.0-46.0); HGB 7.4 gm/dL (11.4-16.0); Hypochromasia Marked; MCH 28.4 pg (25.0-35.0); MCHC 30.3 g/dL (31.0-37.0); MCV 93.8 fL (80.0-100.0); Macrocytosis Slight; Mean Platelet Volume 8.9; Poikilocytosis Slight; RDW 20.2 % (11.5-15.5); WBC 12.3 k/uL (3.8-10.6)
[2020-03-14 05:00] LABS: Platelet Count 71 k/uL (150-450)
[2020-03-14 05:54] LABS: Calcium 8.5 mg/dL (8.4-10.2); Potassium 4.8 mmol/L (3.5-5.1)
[2020-03-14 05:59] LABS: Vancomycin,Random 10.3 ug/mL
[2020-03-14] MEDS ORDERED: LORazepam 2 MG/ML INJ IV PRN (06:09)
[2020-03-14] MEDS ORDERED: propofoL 100 ML IV ONE (06:57)
[2020-03-14] MEDS ORDERED: PROPOFOL 10 MG/ML 20 ML VIAL IV ONE (07:15)
[2020-03-14] MEDS ORDERED: ROCURONIUM 10 MG/ML (10 ML VIAL) IV ONE (07:15)
[2020-03-14] MEDS ORDERED: FUROSEMIDE 10 MG/ML 4 ML VIAL IV STA (07:20)
--- NOTE | 2020-03-14 07:23 | XR ---
EXAMINATION TYPE: XR chest 1V portable DATE OF EXAM: 03/14/2020 COMPARISON: 03/13/2020 HISTORY: Cough TECHNIQUE: Single frontal view of the chest is obtained. FINDINGS: There is large area of masslike consolidation with lucency near the right apex could repre sent a neoplasm or pneumonia with cavitation. Diffuse interstitial pattern noted and there appear to be multiple left-sided rib deformities. Bilateral lower lobe consolidation and pleural effusion are n oted and there is suspicion for underlying COPD. Arthropathy of the shoulders. IMPRESSION: 1. Large area of masslike consolidation in the right upper lobe suspected cavitation correlate clinic ally. Findings stable. 2. Diffuse interstitial pattern correlate for interstitial pneumonia or venous congestion. Lymphangit ic metastases also in the differential diagnosis. 3. Multiple remote rib deformities correlate clinically. Underlying metastases in the differential di agnosis.
--- NOTE | 2020-03-14 07:38 | XR ---
EXAMINATION TYPE: XR chest 1V portable DATE OF EXAM: 03/14/2020 COMPARISON: 03/14/2020 HISTORY: Shortness of breath TECHNIQUE: Single frontal view of the chest is obtained. FINDINGS: ET tube approximately 2.1 cm above the yun. NG tube seen extending in the left upper qu adrant likely within the stomach. Diffuse interstitial and parenchymal lung disease is stable with sm all effusions. Underlying COPD suspected in multiple rib deformities with possible underlying metasta ses. Large mass in the right upper lobe with possible cavitation noted. IMPRESSION: 1. ET tube approximately 2 cm above the yun. NG tube appears in good position. 2. Diffuse pulmonary changes with suspected right upper lobe large mass with cavitation stable.
[2020-03-14 08:43] LABS: ABG Base Excess -13.8 mmol/L; ABG HCO3 15 mmol/L (21-25); ABG Oxygen Saturation 93.6 % (94-97); ABG PCO2 43 mmHg (35-45); ABG PO2 85 mmHg (83-108); ABG TCO2 16 mmol/L (19-24); Allen Test Performed? Yes
[2020-03-14 08:46] LABS: ABG PH 7.15 (7.35-7.45)
[2020-03-14] MEDS ORDERED: SODIUM BICARB 8.4% 50 ML SYR (1 MEQ/ML) ONE (08:46)
[2020-03-14] MEDS ORDERED: SODIUM BICARB 8.4% 50 ML SYR (1 MEQ/ML) IV STA (08:47)
[2020-03-14] MEDS ORDERED: VANCOMYCIN 750 MG in SODIUM CHLORIDE 0.9% 250 ML IVPB ONE (09:00)
[2020-03-14] MEDS: HYDROmorphone 1 MG/ML 1 ML SYRINGE IVP PRN ×2 (09:48→12:08)
[2020-03-14] MEDS: DEXTROSE 5% IN WATER 1,000 ML with SODIUM BICARB (1 MEQ/ML) 150 ML IV SCH (09:49)
[2020-03-14] MEDS: NOREPINEPHRINE 8 MG in SODIUM CHLORIDE 0.9% 250 ML IV SCH (09:52)
[2020-03-14] MEDS: SODIUM CHLORIDE 0.9% 1,000 ML IV SCH (09:52)
[2020-03-14] MEDS: SYMBICORT 160-4.5 MCG INHALER INHALATION SCH (09:58)
[2020-03-14] MEDS: MEROPENEM 1 GM in SODIUM CHLORIDE 0.9% 100 ML IVPB SCH ×2 (10:14→20:52)
[2020-03-14] MEDS: CHLORHEXIDINE GLUCONATE 15 ML CUP MUCOUS MEM SCH ×2 (10:14→20:53)
[2020-03-14 10:22] LABS: ABG Base Excess -9.8 mmol/L; ABG HCO3 18 mmol/L (21-25); ABG Oxygen Saturation 98.1 % (94-97); ABG PCO2 40 mmHg (35-45); ABG PH 7.25 (7.35-7.45); ABG PO2 114 mmHg (83-108); ABG TCO2 19 mmol/L (19-24)
[2020-03-14 10:24] LABS: Allen Test Performed? no
[2020-03-14] MEDS: PANTOPRAZOLE 40 MG/10 ML VIAL IVP SCH ×2 (10:37→20:52)
--- NOTE | 2020-03-14 10:49 | PN ---
PROGRESS NOTE DATE OF SERVICE: 03/14/2020 Patient is a 69-year-old pleasant white female admitted to hospital with progressive shortness of breath and subsequently diagnosed with pneumonia on broad-spectrum antibiotics. While in the hospital, she developed acute GI bleed and dropped hemoglobin to 6.3, received a unit of PRBC transfusion and because of worsening respiratory status, she was transferred to the intensive care unit two days ago. Early this morning she became more short of breath and, hence, she was intubated and presently remains on the vent and sedated. As per the nursing staff, she did not have any further episodes of bleeding. She continues to remain on broad-spectrum antibiotics for pneumonia. She also has history of multiple myeloma. PHYSICAL EXAMINATION: She is sedated on the vent. VITAL SIGNS: Show a blood pressure of 94/47, pulse rate 101 temperature 98. HEENT examination unremarkable. Conjunctivae pink. Sclerae anicteric. Oral cavity no lesions. CHEST: Decreased breath sounds bilaterally. HEART: Regular rate and rhythm. ABDOMEN: Soft. Bowel sounds are positive. No organomegaly. NEURO: She is sedated. LABS: From this morning WBC 12.3, hemoglobin 7.4, platelets 71,000. BUN is 39, creatinine 1.43. IMPRESSION: 1. Acute upper gastrointestinal bleed. The patient had multiple episodes of black tarry stools and dropped hemoglobin to 6.3 g/dL requiring a unit of PRBC transfusion on March 11. Currently her hemoglobin is 7.4 g/dL. As per the nursing staff, she did not have any active bleeding. Eliquis has been on hold for the last 3 days. 2. History of atrial fibrillation on Eliquis which is currently on hold. 3. Acute respiratory failure secondary to pneumonia on broad-spectrum antibiotics, presently intubated and on the vent. 4. History of multiple myeloma. RECOMMENDATIONS: 1. Continue Protonix 40 mg q.12 hours. 2. Continue to hold Eliquis. 3. Monitor CBC daily and transfuse if the hemoglobin is less than 7. 4. She is not stable enough to proceed with an upper endoscopy at the present time. 5. Continue with symptomatic and supportive care. We will follow with you closely. Thank you for this consultation. MMODL / IJN: [id number] /
[2020-03-14] MEDS: CALCIUM CARB-VIT D 500 MG-5 MCG TAB PO SCH ×2 (11:33→12:08)
[2020-03-14] MEDS: METOPROLOL TARTRATE 25 MG TAB PO SCH ×2 (12:01→20:52)
[2020-03-14] MEDS: SODIUM BICARBONATE TAB 650 MG TAB PO SCH ×2 (12:08→20:53)
[2020-03-14 12:23] LABS: Glucose,Whole Blood 126 mg/dL (75-99)
--- NOTE | 2020-03-14 13:19 | OP ---
OPERATIVE REPORT OPERATIVE PROCEDURE: Placement of a left radial arterial line. PREOPERATIVE DIAGNOSIS: Acute hypoxic respiratory failure secondary to pneumonia. POSTOPERATIVE DIAGNOSIS: Acute hypoxic respiratory failure secondary to pneumonia. ANESTHESIA: None deployed. PROCEDURE: The left wrist was prepared in a sterile fashion, drapes applied, the left radial artery was palpated, cannulated, and a guidewire was placed. A Cook catheter was inserted over the guidewire, and the guidewire was removed. Good blood flow, good waveform noted. Line was secured using 3.0 silk sutures. No complications. MMODL / IJN: [id number] /
--- NOTE | 2020-03-14 13:32 | P.PN ---
Subjective Progress Note Date: 03/14/20 Principal diagnosis: Acute hypoxic respiratory failure secondary to acute right upper lobe pneumonia This a very pleasant 69-year-old female patient who follows with Dr. Villalobos as her primary care provider. She has a history of atrial fibrillation/flutter, congestive heart failure, chronic obstructive pulmonary disease with chronic hypoxic respiratory failure, CVA/TIA, hypertension, hyperlipidemia, rheumatoid arthritis, COPD with previous chronic tobacco dependence. She also has a history of multiple myeloma and is currently on Revlimid. She follows with Dr. Larson in this regard. She presented here to the emergency room early this morning with a 2-3 day history of increasing shortness of breath cough congestion chest tightness in the right upper chest and wheezing. No fever, chills or night sweats. No nausea vomiting or diarrhea. CoVID 19 not detected. Chest x-ray reveals evidence of a right upper lobe pneumonia. She was initiated on Rocephin and Zithromax and admitted for the same. She was also found to be in atrial flutter with a rapid ventricular response and started on Cardizem drip at 5 mg per hour. She has 0.9 normal saline at 130 ML's per hour. Her lactic acid initially was for currently down to 0.8. She is maintaining O2 saturations up to 100% on 2 L/m per nasal cannula. White count 14.0. Hemoglobin 8.1. Platelet count 134. D-dimer 1.61. Sodium 139. Potassium 4.2. Bicarb 18. Creatinine 2.64. Glucose 188. Troponin 0.014. ProBNP 2540. VQ scan pending. She is seen this morning in consultation on the selective care unit. She is currently resting flat in bed. Awake and alert in no acute distress. Feeling a bit better today compared to yesterday. Still with a loose nonproductive cough. Remains afebrile. Heart rate better controlled currently in sinus rhythm. Hemodynamically stable. The patient is seen today 03/11/2019 in follow-up on the selective care unit. He is currently sitting up in bed. Awake and alert in no acute distress. She was found to be quite anemic as morning with a hemoglobin of 6.3. Eliquis on hold. White count 9.9. Sodium 144. Potassium 5.0. Creatinine 1.56. Pro- calcitonin 1.34. Chest x-ray reveals chronic emphysematous changes with persistent right upper lung pneumonia consolidation. Right infrahilar and left basilar acute infiltrates are present. She is continued on aztreonam, azithromycin. Reevaluated today on 03/12/2020, patient developed worsening shortness of breath t his morning, she had to be placed on a nonrebreather mask, and I have made arrangements for the patient to transfer to the ICU. Chest x-ray is showing showing worsening right upper lobe pneumonia, her ABG is marginal, and I went ahead and canceled the plans for bronchoscopy and biopsy of the right upper lobe. In the meantime I have changed her antibiotics and went to full antibiotics coverage including Merrem and vancomycin, and again I counseled the bronchoscopy for today. I have explained to the patient that if I were to proceed with bronchoscopy, she would likely end up on mechanical ventilation, and would be difficult to extubate post bronchoscopy considering her worsening status today. The plan is to do bronchoscopy if her condition worsens and ends up on mechanical ventilation. Patient seems to be quite agreeable to this approach. WBC count today is up to 23.4 hemoglobin is 9.2. ABG showed a pO2 of 91 pCO2 of 28 pH of 7.38 electrolytes are normal however her bicarb is 15. Renal profile showed a BUN of 31 creatinine 1.52. The patient was reevaluated today on 03/13/2020, remains in the ICU, patient is now on 12 L high flow nasal cannula, O2 saturation is 95%, LV that she feels a bit better compared to how she felt yesterday. Continues to have cough, but cough is productive with brownish phlegm. Chest x-ray in slightly improved, patient is now on vancomycin and Merrem. Cultures so far remain nondiagnostic. Recommended sputum cultures, and the are pending. Patient remains extremely marginal and high risk for bronchoscopy without having to intubate the patient. Hence I would hold on the bronchoscopy plans for now. IV fluid is at 100 mL per hour. WBC count is improving down to 15.4 from 23.4. Renal functioning is improving, BUN is 56 creatinine is down to 1.48. Patient was reevaluated today on 03/14/2020, patient had a significant deterioration in her overall status overnight, continued to have intermittent episodes of desaturations, anxiety and shortness of breath, hence I was notified about this patient early this morning, and clearly noted that the patient is showing worsening pulmonary status, worsening oxygenation, and worsening chest x-ray. I recommended immediate intubation of the patient, recommended placing the patient on Lasix 40 mg IV push, also recommended bicarb and a bicarb drip. Patient was intubated, placed on assist control rate of 24, volume of 350 FiO2 of 100% and PEEP at 8. Later her FiO2 was decreased down to 70%, ABG showed a pO2 of 85 pCO2 of 43 pH of 7.14. Her IV fluid is at KVO, her bicarb drip is at 50 ML per hour, and again she received 1 dose of Lasix for what seems to be worsening pulmonary edema, I suspect we are dealing with some component of acute diastolic congestive heart failure or ARDS picture/noncardiogenic pulmonary edema. I am suspecting this is cardiogenic in nature, and will likely improve with diuretics. Patient remains clinically marginal to undergo safe bronchoscopy and BAL at this point. Hence I would wait for the next 24 hours before performing bronchoscopy on this patient. Repeat ABG later showed a pO2 of 114 pCO2 of 40 0 pH of 7.5. Her CBC showed WBC count of 12.3 hemoglobin of 7.4. Elective lites are normal except bicarb is 17 BUN is 39 creatinine is down to 1.43 Objective - Vital Signs Vital signs: Vital Signs Temp 97.6 F 03/14/20 12:00 Pulse 90 03/14/20 12:44 Resp 22 03/14/20 12:00 BP 104/56 03/14/20 08:00 Pulse Ox 96 03/14/20 12:00 Intake & Output 03/13/20 03/14/20 03/14/20 18:59 06:59 18:59 Intake Total 1570 1520 869.159 Output Total 345 375 288 Balance 1225 1145 581.159 Weight 46.4 kg Intake: IV 1570 1280 400 Meropenem 1 gm In Sodium 500 200 100 Chloride 0.9% 100 ml @ 33 .3 mls/hr IVPB Q12HR [facility] Rx#:[id number] Sodium Chloride 0.9% 1, 1080 300 000 ml @ 100 mls/hr IV . Q10H [facility] Rx#:[id number] Sodium Chloride 0.9% 1, 820 000 ml @ 130 mls/hr IV . Q7H42M [facility] Rx#:[id number] Vancomycin 750 mg In 250 Sodium Chloride 0.9% 250 ml @ 125 mls/hr IVPB ONCE ONE Rx#:[id number] Intake, IV Titration 469.159 Amount Dextrose 5% in Water 1, 150 000 ml @ 50 mls/hr IV . Q23H [facility] with Sodium Bicarb (1 Meq/ml) 150 ml Rx#:[id number] Norepinephrine 8 mg In 29.719 Sodium Chloride 0.9% 250 ml @ 0.05 MCG/KG/MIN 4. 489 mls/hr IV .Q24H [facility] Rx#:[id number] Vancomycin 750 mg In 250 Sodium Chloride 0.9% 250 ml @ 125 mls/hr IVPB ONCE ONE Rx#:[id number] propofoL 1,000 mg In 39.440 Empty Bag 1 bag @ Titrate IV .Q0M [facility] Rx#: [id number] Oral 240 Output: Urine 345 375 288 Other: Voiding Method Indwelling Catheter Indwelling Catheter Indwelling Catheter ABP, PAP, CO, CI - Last Documented Arterial Blood Pressure 115/58 - Exam GENERAL EXAM: Revealed a 61-year-old female, frail looking, intubated and mechanically ventilated, on propofol drip. Head: Atraumatic, normocephalic, endotracheal tube and orogastric tube are intact. ENT: PERRLA, EOMI, nonicteric, no neck masses, no JVD, no stridor. CHEST: No chest wall deformity. Symmetrical expansion. LUNGS: Rhonchi and crackles noted bilaterally. CVS: Regular rate and rhythm, normal S1 and S2, no gallops, no murmurs, no rubs ABDOMEN: Soft, nontender. No hepatosplenomegaly, normal bowel sounds, no guarding or rigidity. EXTREMITIES: No clubbing, no edema, no cyanosis, 2+ pulses and upper and lower extremities. MUSCULOSKELETAL: Muscle strength and tone normal. SPINE: No scoliosis or deformity SKIN: No rashes CENTRAL NERVOUS SYSTEM: Could not be assessed, patient is on propofol drip at present. PSYCHIATRIC: Could not assess because of propofol drip. - Labs CBC & Chem 7: 03/14/20 04:33 03/14/20 04:33 Labs: Abnormal Lab Results - Last 24 Hours (Table) 03/11/20 03/11/20 03/14/20 Range/Units 14:59 14:59 04:33 WBC (3.8-10.6) k/uL RBC (3.80-5.40) m/uL Hgb (11.4-16.0) gm/dL Hct (34.0-46.0) % MCHC (31.0-37.0) g/dL RDW (11.5-15.5) % Plt Count (150-450) k/uL ABG pH (7.35-7.45) ABG pO2 (83-108) mmHg ABG HCO3 (21-25) mmol/L ABG Total CO2 (19-24) mmol/L ABG O2 Saturation (94-97) % Chloride 122 H (98-107) mmol/L Carbon Dioxide 17 L (22-30) mmol/L BUN 39 H (7-17) mg/dL Creatinine 1.43 H (0.52-1.04) mg/dL Glucose 104 H (74-99) mg/dL POC Glucose (mg/dL) (75-99) mg/dL Erythropoietin 118.80 H (2.00-30.00) mIU/mL Methylmalonic Acid 0.46 H (<0.40) umol/L 03/14/20 03/14/20 03/14/20 Range/Units 04:33 08:41 10:20 WBC 12.3 H (3.8-10.6) k/uL RBC 2.60 L (3.80-5.40) m/uL Hgb 7.4 L (11.4-16.0) gm/dL Hct 24.4 L (34.0-46.0) % MCHC 30.3 L (31.0-37.0) g/dL RDW 20.2 H (11.5-15.5) % Plt Count 71 L (150-450) k/uL ABG pH 7.15 L* 7.25 L (7.35-7.45) ABG pO2 114 H (83-108) mmHg ABG HCO3 15 L 18 L (21-25) mmol/L ABG Total CO2 16 L (19-24) mmol/L ABG O2 Saturation 93.6 L 98.1 H (94-97) % Chloride (98-107) mmol/L Carbon Dioxide (22-30) mmol/L BUN (7-17) mg/dL Creatinine (0.52-1.04) mg/dL Glucose (74-99) mg/dL POC Glucose (mg/dL) (75-99) mg/dL Erythropoietin (2.00-30.00) mIU/mL Methylmalonic Acid (<0.40) umol/L 03/14/20 Range/Units 12:21 WBC (3.8-10.6) k/uL RBC (3.80-5.40) m/uL Hgb (11.4-16.0) gm/dL Hct (34.0-46.0) % MCHC (31.0-37.0) g/dL RDW (11.5-15.5) % Plt Count (150-450) k/uL ABG pH (7.35-7.45) ABG pO2 (83-108) mmHg ABG HCO3 (21-25) mmol/L ABG Total CO2 (19-24) mmol/L ABG O2 Saturation (94-97) % Chloride (98-107) mmol/L Carbon Dioxide (22-30) mmol/L BUN (7-17) mg/dL Creatinine (0.52-1.04) mg/dL Glucose (74-99) mg/dL POC Glucose (mg/dL) 126 H (75-99) mg/dL Erythropoietin (2.00-30.00) mIU/mL Methylmalonic Acid (<0.40) umol/L Microbiology - Last 24 Hours (Table) 03/08/20 06:45 Blood Culture - Final Blood No Growth after 144 hours 03/08/20 06:30 Blood Culture - Final Blood No Growth after 144 hours 03/13/20 11:59 Gram Stain - Preliminary Sputum Sputum Culture - Preliminary Assessment and Plan Assessment: Impression: Acute hypoxic respiratory failure secondary to community-acquired pneumonia in immunocompromised host. Requiring intubation and mechanical ventilation on 03/14/2020. Suspect acute diastolic congestive heart failure or possible ARDS/noncardiogenic pulmonary edema. Also contributing to her hypoxic respiratory failure Leukocytosis secondary to above. Multiple myeloma,. Acute kidney injury. History of chronic obstructive pulmonary disease Acute on chronic kidney disease stage III. Paroxysmal atrial fibrillation. History of CVA. Benign essential hypertension. Dyslipidemia. Recommendation: Continue ventilatory support. Continue propofol and sedation. Continue antibiotics including vancomycin and Merrem. Trial of diuretics and if improves that will point to possibly diastolic congestive heart failure. Otherwise we may be dealing with ARDS/noncardiogenic pulmonary edema. Not planning bronchoscopy at this point as the patient remains marginal and her clinical status. Start patient on bicarbonate drip for worsening metabolic acidosis. Patient is critically ill. Critical care time is 40 minutes not including time spent on procedures. Will follow. Time with Patient: Greater than 30
[2020-03-14] MEDS: POTASSIUM CHLORIDE ER 20 MEQ TAB.ER PO SCH (14:34)
[2020-03-14] MEDS: SERTRALINE 100 MG TAB PO SCH (14:34)
--- NOTE | 2020-03-14 16:46 | PN ---
PROGRESS NOTE DATE OF SERVICE: 03/14/2020 REASON FOR FOLLOWUP: Pneumonia. INTERVAL HISTORY: The patient did have worsening of her respiratory status and ended up getting intubated. The patient is currently hemodynamically stable. FiO2 is down to 50%. No significant purulent secretions through the ET or any diarrhea reported by the nursing staff. PHYSICAL EXAMINATION: Blood pressure 124/55 with a pulse of 87, temperature is 97.6. She is 97% on 50% FiO2. General description is an elderly female lying in bed in no distress. RESPIRATORY SYSTEM: Unlabored breathing with decreased intensity of breath sounds. No wheeze. HEART: S1, S2. Regular rate and rhythm. ABDOMEN: Soft. No tenderness. LABS: Hemoglobin is 7.4, white count 12.3, BUN of 39, creatinine 1.43. was low. Blood cultures were negative. Sputum is pending. DIAGNOSTIC IMPRESSION AND PLAN: Patient with acute respiratory failure which is multifactorial in this patient who did have a component of pneumonia. The patient does have MULTIPLE ANTIBIOTIC ALLERGIES. Covered with meropenem and vancomycin; to continue while waiting for the culture to finalize. Continue supportive care. MMODL / IJN: [id number] /
--- NOTE | 2020-03-14 18:14 | P.PN ---
Subjective Progress Note Date: 03/13/20 Still working very hard to breath Objective - Vital Signs Vital signs: Vital Signs Temp 97 F L 03/13/20 12:00 Pulse 86 03/13/20 13:00 Resp 24 03/13/20 13:00 BP 114/61 03/13/20 13:00 Pulse Ox 92 L 03/13/20 13:00 Intake & Output 03/12/20 03/13/20 03/13/20 18:59 06:59 18:59 Intake Total 1000 1690 1080 Output Total 720 250 195 Balance 280 1440 885 Weight 40 kg 43 kg Intake: IV 1000 1330 1080 Meropenem 1 gm In Sodium 100 500 Chloride 0.9% 100 ml @ 33 .3 mls/hr IVPB Q12HR [facility] Rx#:[id number] Sodium Chloride 0.9% 1, 1000 1230 330 000 ml @ 130 mls/hr IV . Q7H42M [facility] Rx#:[id number] Vancomycin 750 mg In 250 Sodium Chloride 0.9% 250 ml @ 125 mls/hr IVPB ONCE ONE Rx#:[id number] Oral 0 360 Output: Urine 720 250 195 Other: Voiding Method Indwelling Catheter Indwelling Catheter Indwelling Catheter - Exam - Constitutional General appearance: In mild-moderate distress, hi flow - EENT Eyes: EOMI, PERRLA ENT: NA/AT, Dry - Neck Neck: normal ROM - Respiratory Respiratory: bilateral: Rhonchi - Cardiovascular Rhythm: regular - Gastrointestinal General gastrointestinal: soft, tenderness Localized gastrointestinal: surgical scar: midline (Tender to palpate directly above pelvic bone) - Integumentary Integumentary: pale - Neurologic Neurologic: CNII-XII intact - Musculoskeletal Musculoskeletal: gait normal, generalized weakness, strength equal bilaterally - Psychiatric Psychiatric: A&O x's 3, appropriate affect, intact judgment & insight - Labs CBC & Chem 7: 03/14/20 04:33 03/14/20 04:33 Labs: Abnormal Lab Results - Last 24 Hours (Table) 03/11/20 03/13/20 03/13/20 Range/Units 14:59 05:30 05:30 WBC 15.4 H (3.8-10.6) k/uL RBC 3.04 L (3.80-5.40) m/uL Hgb 8.7 L (11.4-16.0) gm/dL Hct 28.9 L (34.0-46.0) % MCHC 30.0 L (31.0-37.0) g/dL RDW 20.2 H (11.5-15.5) % Plt Count 91 L (150-450) k/uL Chloride 121 H (98-107) mmol/L Carbon Dioxide 17 L (22-30) mmol/L BUN 36 H (7-17) mg/dL Creatinine 1.48 H (0.52-1.04) mg/dL Glucose 126 H (74-99) mg/dL Albumin (PEP) 1.78 L (3.80-4.90) g/dL Ikfxa-4-Mrhcpxnfm 0.67 H (0.10-0.40) g/dL Beta Globulins 0.59 L (0.60-1.30) g/dL Gamma Globulins 0.51 L (0.70-1.50) g/dL Microbiology - Last 24 Hours (Table) 03/08/20 06:30 Blood Culture - Preliminary Blood No Growth after 120 hours 03/08/20 06:45 Blood Culture - Preliminary Blood No Growth after 120 hours Assessment and Plan (1) Atrial flutter with rapid ventricular response Narrative/Plan: Cardiology Following She is now in the care of ICU for respiratory failure. Current Visit: Yes Status: Acute Code(s): I48.92 - UNSPECIFIED ATRIAL FLUTTER SNOMED Code(s): 2848321 (2) Chronic kidney disease Narrative/Plan: Nephrology Following Current Visit: Yes Status: Chronic Code(s): N18.9 - CHRONIC KIDNEY DISEASE, UNSPECIFIED SNOMED Code(s): 093928369 (3) Acute exacerbation of chronic obstructive airways disease Narrative/Plan: Management per ICU and Pulm High--Flow Oxygen Current Visit: No Status: Acute Code(s): J44.1 - CHRONIC OBSTRUCTIVE PULMONARY DISEASE W (ACUTE) EXACERBATION SNOMED Code(s): 427432682 (4) Multiple myeloma not having achieved remission Narrative/Plan: Continue to Hold Revlimid with Cytopenias at this time Current Visit: No Status: Chronic Priority: Medium Code(s): C90.00 - MULTIPLE MYELOMA NOT HAVING ACHIEVED REMISSION SNOMED Code(s): 761232597 (5) Pancytopenia Narrative/Plan: Secondary to Chronic disease, acute on chronic infectious/inflammatory response, Multiple myeloma, and chemotherapy Continue to hold Revlamid for now Daily CBC with differential and repeat work-up ordered last visit in anticipation to begin epogen If patient improves, will need parental iron prior to epogen initiation Transfuse hemoglobin less than 7 Current Visit: No Status: Chronic Priority: Medium Code(s): D61.818 - OTHER PANCYTOPENIA SNOMED Code(s): 501004432 Plan: Physician Attest: I have completed the full history and physical and agree with above dictation, dictated as a scribe.
[2020-03-14 18:16] LABS: Glucose,Whole Blood 150 mg/dL (75-99)
[2020-03-14] MEDS: LATANOPROST 0.005% OPHTH DROPS 2.5 ML BTL BOTH EYES SCH (20:53)
--- NOTE | 2020-03-14 22:25 | P.PN ---
Progress Note - Text Progress Note Date: 03/14/20 Interval history: This is a very pleasant 69-year-old patient of Dr. Villalobos. Chronic stable me dical conditions include paroxysmal atrial flutter fibrillation, , CHF with an EF of 50-55%, tricuspid and mitral regurgitation, secondary pulmonary hypertension, chronic kidney disease stage IV, hypertension, hyperlipidemia,. Patient also being treated for multiple myeloma. on REVLIMID Patient presented with shortness of breath confusion cough congestion. Admitted with right upper lobe pneumonia, acute delirium. Started on IV aztreonam and azithromycin. Developed black tarry stools. Dropped hemoglobin. 1 unit of blood given. Patient desaturated. Moved to the ICU on March 11. Mewds-XSQ-ddeaxtoy patient had episodes of deterioration respiratory baird. Was intubated earlier today. Drips include sodium bicarbonate, IV meropenem, IV levo fed, IV propofol. Patient is sedated Review of systems: Patient intubated Active Medications Acetaminophen (Acetaminophen Tab 325 Mg Tab) 650 mg PO Q4HR PRN PRN Reason: Fever and/ or Pain Last Admin: 03/11/20 22:00 Dose: 650 mg Documented by: Albuterol/Ipratropium (Ipratropium-Albuterol 3 Ml Neb) 3 ml INHALATION RT-Q4H [facility] Last Admin: 03/14/20 19:04 Dose: 3 ml Documented by: Calcitriol (Calcitriol 0.25 Mcg Cap) 0.25 mcg PO PC-LUNCH [facility] Last Admin: 03/14/20 12:17 Dose: Not Given Documented by: Calcium Carbonate (Calcium Carb-Vit D 500mg-200un 1 Each Tab) 2 each PO DAILY@1200 [facility] Last Admin: 03/14/20 12:08 Dose: 2 each Documented by: Chlorhexidine Gluconate (Chlorhexidine Gluconate 15 Ml Cup) 15 ml MUCOUS MEM BID [facility] Last Admin: 03/14/20 20:53 Dose: 15 ml Documented by: Guaifenesin (Guaifenesin 600 Mg Tablet.Er) 600 mg PO Q8HR [facility] Last Admin: 03/14/20 15:59 Dose: 600 mg Documented by: Hydromorphone HCl (Hydromorphone 1 Mg/Ml 1 Ml Syringe) 1 mg IVP Q2HR PRN PRN Reason: Pain Last Admin: 03/14/20 12:08 Dose: 1 mg Documented by: Meropenem 1 gm/ Sodium (Chloride) 100 mls @ 33.3 mls/hr IVPB Q12HR [facility]; Protocol Last Admin: 03/14/20 20:52 Dose: 33.3 mls/hr Documented by: Propofol 1,000 mg/ IV Solution 100 mls @ 0 mls/hr IV .Q0M [facility]; Protocol Last Admin: 03/14/20 20:51 Dose: 75 mcg/kg/min, 20.88 mls/hr Documented by: Sodium Bicarbonate 150 ml/ (Dextrose/Water) 1,150 mls @ 50 mls/hr IV .Q23H [facility] Last Admin: 03/14/20 09:49 Dose: 50 mls/hr Documented by: Norepinephrine Bitartrate 8 mg (/ Sodium Chloride) 258 mls @ 4.489 mls/hr IV .Q24H [facility]; Protocol Last Titration: 03/14/20 20:30 Dose: 0 mcg/kg/min, 0 mls/hr Documented by: Latanoprost (Latanoprost 0.005% Ophth Drops 2.5 Ml Btl) 1 drops BOTH EYES HS [facility] Last Admin: 03/14/20 20:53 Dose: 1 drops Documented by: Lorazepam (Lorazepam 2 Mg/Ml Inj) 0.5 mg IV Q12H PRN PRN Reason: Anxiety Methylprednisolone Sodium Succinate (Methylprednisolone Sod Succi 125 Mg/2 Ml Vial) 60 mg IV Q6HR [facility] Last Admin: 03/14/20 18:56 Dose: 60 mg Documented by: Metoprolol Tartrate (Metoprolol Tartrate 25 Mg Tab) 25 mg PO BID@1200,2100 [facility] Last Admin: 03/14/20 20:52 Dose: 25 mg Documented by: Miscellaneous Information (Pneumonia Protocol Utilized 1 Each [facility]) 1 each PO ONCE PRN PRN Reason: Per Protocol Miscellaneous Information (Vancomycin Iv Per Pharmacy 1 Each [facility]) 1 each MISCELLANE DIRECTED PRN; Protocol PRN Reason: Per Protocol Pantoprazole Sodium (Pantoprazole 40 Mg/10 Ml Vial) 40 mg IVP BID [facility] Last Admin: 03/14/20 20:52 Dose: 40 mg Documented by: Potassium Chloride (Potassium Chloride Er 20 Meq Tab.Er) 20 meq PO PC-LUNCH [facility] Last Admin: 03/14/20 14:34 Dose: 20 meq Documented by: Sertraline HCl (Sertraline 100 Mg Tab) 200 mg PO PC-LUNCH [facility] Last Admin: 03/14/20 14:34 Dose: 200 mg Documented by: Sodium Bicarbonate (Sodium Bicarbonate Tab 650 Mg Tab) 1,300 mg PO DAILY@1200 [facility] Last Admin: 03/14/20 12:08 Dose: 1,300 mg Documented by: Sodium Bicarbonate (Sodium Bicarbonate Tab 650 Mg Tab) 650 mg PO HS [facility] Last Admin: 03/14/20 20:53 Dose: 650 mg Documented by: Physical examination: VITAL SIGNS: 97.5, 85, 25, 108/63, 98% on the ventilator GENERAL: Laying in bed, intubated EYES: Pupils equal. Conjunctiva pale HEENT: External appearance of nose and ears normal, oral G-tube NECK: JVD not raised; masses not palpable. HEART: First and second heart sounds are normal; no edema. LUNGS: Respiratory rate increased, decreased breath sounds mild wheezing, ABDOMEN: Soft, nontender, liver spleen not palpable, no masses palpable. PSYCH: Sedated MUSCULOSKELETAL: Diffuse wasting of muscles Investigations, reviewed in the clinical context: March 14: White count 12.3 hemoglobin 7.4 potassium 4.8 bun 39 creatinine 1.43. ABG show pH of 7.15 March 13: White count 15.4 hemoglobin 8.7 platelets 91 bun 36 creatinine 1.48 March 12: White count 23.4 hemoglobin 9.2 platelets 113. Check stat x-ray film-right upper lobe dense infiltrate March 11: White count 9.2 hemoglobin 6 platelets 86potassium 5 creatinine 1.56 pro-calcitonin 1.34 Pro-calcitonin 1.84 White count 14 hemoglobin 8.1 platelets 134 potassium 4.2 BUN 47 creatinine 2.64 Lactic acid 4.9 Coronavirus P/Cr-not detected VQ scan-low probability for PE EKG tracing personally reviewed by me-normal sinus rhythm some ST segment changes Chest [id number]-lqr-[id number] infiltrate throughout the right upper lobe and the superior segment of the right lower lobe Assessment: -Right upper lobe pneumonia, suspect gram-negative organism in an immunosuppressed patient, , POA,-slow to respond -Acute GI bleed patient having dark stools. -Paroxysmal atrial flutter and fibrillation-with rapid ventricular rate then went back into sinus rhythm -Anemia multifactorial including that of chronic disease including multiple myeloma -Acute COPD exacerbation in a ex-smoker, -Chronic congestive heart failure from systolic and diastolic dysfunction EF 50- 55% -Moderate tricuspid and severe mitral regurgitation, nontraumatic -Severe secondary pulmonary hypertension secondary to CHF and COPD -Multiple myeloma on chemotherapy -Chronic kidney disease secondary to multiple myeloma stage IV and chronic interstitial nephropathy -Essential hypertension -Hyperlipidemia -Severe protein calorie malnutrition due to poor oral intake. BMI 14.4 -Chronic medical debility -Multiple old rib fractures due to multiple myeloma -Acute GI bleed dropping hemoglobin down to 6. -Acute hypoxic respiratory failure-worsening overnight-intubated on the ventilator March 14 -Hypotensive shock-on levo fed Plan: Patient currently on bronchodilators, IV meropenem, IV Solu-Medrol, IV vancomycin. IV propofol, IV levo fed. Prognosis guarded
[2020-03-14 23:36] LABS: Glucose,Whole Blood 159 mg/dL (75-99)
[2020-03-15] MEDS: INSULIN ASPART (NovoLOG) 100 UNIT/ML VIAL SQ SCH ×4 (00:04→17:35)
[2020-03-15] MEDS: guaiFENesin 600 MG TABLET.ER PO SCH ×3 (00:08→17:41)
[2020-03-15] MEDS: methylPREDNISolone SOD SUCCI 125 MG/2 ML VIAL IV SCH ×4 (00:08→17:41)
[2020-03-15] MEDS: HYDROmorphone 1 MG/ML 1 ML SYRINGE IVP PRN ×3 (02:38→20:30)
[2020-03-15] MEDS: IPRATROPIUM-ALBUTEROL 3 ML NEB INHALATION SCH ×5 (03:21→21:02)
[2020-03-15 05:38] LABS: ABG Base Excess -4.4 mmol/L; ABG HCO3 21 mmol/L (21-25); ABG PCO2 39 mmHg (35-45); ABG PH 7.34 (7.35-7.45); ABG PO2 96 mmHg (83-108); ABG TCO2 23 mmol/L (19-24)
[2020-03-15 05:41] LABS: Glucose,Whole Blood 134 mg/dL (75-99)
[2020-03-15 05:56] LABS: Allen Test Performed? no
[2020-03-15 06:31] LABS: Vancomycin,Random 13.5 ug/mL
--- NOTE | 2020-03-15 07:18 | XR ---
EXAMINATION TYPE: XR chest 1V portable DATE OF EXAM: 03/15/2020 COMPARISON: 03/14/2020 HISTORY: Tube placement TECHNIQUE: Single frontal view of the chest is obtained. FINDINGS: Diffuse interstitial and parenchymal infiltrates are stable with small pleural effusions. Underlying COPD suspected in multiple rib deformities with possible underlying metastases. Large mass in the right upper lobe with possible cavitation noted. IMPRESSION: 1. Diffuse pulmonary pleural-parenchymal findings with suspected right upper lobe large mass with ca vitation stable.
[2020-03-15 07:32] LABS: Calcium 7.3 mg/dL (8.4-10.2); Potassium 4.5 mmol/L (3.5-5.1); Total Bilirubin 0.3 mg/dL (0.2-1.3); Total Protein 4.1 g/dL (6.3-8.2)
[2020-03-15 07:53] LABS: Anisocytosis Moderate; Hypochromasia Marked; MCH 29.5 pg (25.0-35.0); MCHC 31.9 g/dL (31.0-37.0); MCV 92.5 fL (80.0-100.0); Mean Platelet Volume 10.6; Platelet Count 50 k/uL (150-450); Poikilocytosis Slight; RBC 2.01 m/uL (3.80-5.40); WBC 7.4 k/uL (3.8-10.6)
[2020-03-15] MEDS ORDERED: VANCOMYCIN 750 MG in SODIUM CHLORIDE 0.9% 250 ML IVPB ONE (08:00)
[2020-03-15 08:09] LABS: HCT 18.6 % (34.0-46.0); HGB 5.9 gm/dL (11.4-16.0)
[2020-03-15] MEDS: CHLORHEXIDINE GLUCONATE 15 ML CUP MUCOUS MEM SCH ×2 (08:13→19:48)
[2020-03-15] MEDS: MEROPENEM 1 GM in SODIUM CHLORIDE 0.9% 100 ML IVPB SCH ×2 (08:13→19:48)
[2020-03-15] MEDS: PANTOPRAZOLE 40 MG/10 ML VIAL IVP SCH ×2 (08:13→19:48)
[2020-03-15] MEDS: DEXTROSE 5% IN WATER 1,000 ML with SODIUM BICARB (1 MEQ/ML) 150 ML IV SCH (08:14)
[2020-03-15] MEDS: NOREPINEPHRINE 8 MG in SODIUM CHLORIDE 0.9% 250 ML IV SCH (09:23)
[2020-03-15] MEDS: FUROSEMIDE 10 MG/ML 4 ML VIAL IV SCH ×2 (09:23→19:48)
[2020-03-15 12:02] LABS: Glucose,Whole Blood 122 mg/dL (75-99)
--- NOTE | 2020-03-15 12:13 | PN ---
PROGRESS NOTE DATE OF DICTATION: March 15, 2020 Patient is a 69-year-old pleasant white female remains in the intensive care unit, intubated on the vent for acute respiratory failure. As per the nursing staff, she did not have any further episodes of bleeding. In fact, she had no bowel movements, hold. This morning hemoglobin was reported as 5.5 g/dL. The patient was scheduled for an upper endoscopy 3 days ago, but because of worsening respiratory status, the procedure was canceled. In the meantime, the Eliquis continues to remain on hold. She received one unit of PRBC transfusion 3 days ago and she is scheduled to receive 2 more units of PRBC transfusion today. PHYSICAL EXAMINATION: Sedated on the vent. Vital signs show a blood pressure of 103/45, pulse rate 77, temperature 97.8. HEENT examination unremarkable. Conjunctivae pink. Sclerae anicteric. CHEST: Clear to auscultation. HEART: Regular rate and rhythm. ABDOMEN: Soft, it was nontender, nondistended. Bowel sounds are positive. Extremities: No pedal edema. LABS: From today WBC 7.4, hemoglobin 5.9, platelets 50,000. BUN is 38, creatinine 1.54. IMPRESSION: 1. Severe anemia with a hemoglobin of 5.9 g/dL and clinically no active bleeding. The patient had an episode of black tarry stools about 3 days ago. Eliquis has been on hold since then and she was scheduled for an upper endoscopy 3 days ago, but because of worsening respiratory status, the procedure was canceled. Remains on Protonix 40 mg twice daily and hemodynamically stable. No active bleeding. 2. Acute respiratory failure secondary to pneumonia on broad-spectrum antibiotics, remains on the vent, intubated and sedated. 3. Atrial fibrillation on Eliquis, currently on hold. 4. History of multiple myeloma on chemotherapy. 5. History of chronic kidney disease secondary to multiple myeloma. RECOMMENDATIONS: 1. Continue with Protonix 40 mg twice daily. 2. Agree with 2 units of PRBC transfusion. 3. Continue with broad-spectrum antibiotics. 4. We will proceed with an upper endoscopy tomorrow to evaluate for upper GI source of bleeding. 5. Monitor CBC daily. 6. We will follow with you. Thank you for this consultation. MMODL / IJN: [id number] /
[2020-03-15] MEDS: SODIUM BICARBONATE TAB 650 MG TAB PO SCH ×2 (12:20→19:48)
[2020-03-15] MEDS: POTASSIUM BICARBONATE/CIT AC 20 MEQ TABLET.EFF PO SCH (12:20)
[2020-03-15] MEDS: CALCIUM CARB-VIT D 500 MG-5 MCG TAB PO SCH (12:20)
[2020-03-15] MEDS: SERTRALINE 100 MG TAB PO SCH (12:21)
[2020-03-15] MEDS: METOPROLOL TARTRATE 25 MG TAB PO SCH ×2 (12:29→19:48)
--- NOTE | 2020-03-15 13:00 | P.PN ---
Subjective Progress Note Date: 03/15/20 Principal diagnosis: Acute hypoxic respiratory failure secondary to acute right upper lobe pneumonia This a very pleasant 69-year-old female patient who follows with Dr. Villalobos as her primary care provider. She has a history of atrial fibrillation/flutter, congestive heart failure, chronic obstructive pulmonary disease with chronic hypoxic respiratory failure, CVA/TIA, hypertension, hyperlipidemia, rheumatoid arthritis, COPD with previous chronic tobacco dependence. She also has a history of multiple myeloma and is currently on Revlimid. She follows with Dr. Larson in this regard. She presented here to the emergency room early this morning with a 2-3 day history of increasing shortness of breath cough congestion chest tightness in the right upper chest and wheezing. No fever, chills or night sweats. No nausea vomiting or diarrhea. CoVID 19 not detected. Chest x-ray reveals evidence of a right upper lobe pneumonia. She was initiated on Rocephin and Zithromax and admitted for the same. She was also found to be in atrial flutter with a rapid ventricular response and started on Cardizem drip at 5 mg per hour. She has 0.9 normal saline at 130 ML's per hour. Her lactic acid initially was for currently down to 0.8. She is maintaining O2 saturations up to 100% on 2 L/m per nasal cannula. White count 14.0. Hemoglobin 8.1. Platelet count 134. D-dimer 1.61. Sodium 139. Potassium 4.2. Bicarb 18. Creatinine 2.64. Glucose 188. Troponin 0.014. ProBNP 2540. VQ scan pending. She is seen this morning in consultation on the selective care unit. She is currently resting flat in bed. Awake and alert in no acute distress. Feeling a bit better today compared to yesterday. Still with a loose nonproductive cough. Remains afebrile. Heart rate better controlled currently in sinus rhythm. Hemodynamically stable. The patient is seen today 03/11/2019 in follow-up on the selective care unit. He is currently sitting up in bed. Awake and alert in no acute distress. She was found to be quite anemic as morning with a hemoglobin of 6.3. Eliquis on hold. White count 9.9. Sodium 144. Potassium 5.0. Creatinine 1.56. Pro- calcitonin 1.34. Chest x-ray reveals chronic emphysematous changes with persistent right upper lung pneumonia consolidation. Right infrahilar and left basilar acute infiltrates are present. She is continued on aztreonam, azithromycin. Reevaluated today on 03/12/2020, patient developed worsening shortness of breath t his morning, she had to be placed on a nonrebreather mask, and I have made arrangements for the patient to transfer to the ICU. Chest x-ray is showing showing worsening right upper lobe pneumonia, her ABG is marginal, and I went ahead and canceled the plans for bronchoscopy and biopsy of the right upper lobe. In the meantime I have changed her antibiotics and went to full antibiotics coverage including Merrem and vancomycin, and again I counseled the bronchoscopy for today. I have explained to the patient that if I were to proceed with bronchoscopy, she would likely end up on mechanical ventilation, and would be difficult to extubate post bronchoscopy considering her worsening status today. The plan is to do bronchoscopy if her condition worsens and ends up on mechanical ventilation. Patient seems to be quite agreeable to this approach. WBC count today is up to 23.4 hemoglobin is 9.2. ABG showed a pO2 of 91 pCO2 of 28 pH of 7.38 electrolytes are normal however her bicarb is 15. Renal profile showed a BUN of 31 creatinine 1.52. The patient was reevaluated today on 03/13/2020, remains in the ICU, patient is now on 12 L high flow nasal cannula, O2 saturation is 95%, LV that she feels a bit better compared to how she felt yesterday. Continues to have cough, but cough is productive with brownish phlegm. Chest x-ray in slightly improved, patient is now on vancomycin and Merrem. Cultures so far remain nondiagnostic. Recommended sputum cultures, and the are pending. Patient remains extremely marginal and high risk for bronchoscopy without having to intubate the patient. Hence I would hold on the bronchoscopy plans for now. IV fluid is at 100 mL per hour. WBC count is improving down to 15.4 from 23.4. Renal functioning is improving, BUN is 56 creatinine is down to 1.48. Patient was reevaluated today on 03/14/2020, patient had a significant deterioration in her overall status overnight, continued to have intermittent episodes of desaturations, anxiety and shortness of breath, hence I was notified about this patient early this morning, and clearly noted that the patient is showing worsening pulmonary status, worsening oxygenation, and worsening chest x-ray. I recommended immediate intubation of the patient, recommended placing the patient on Lasix 40 mg IV push, also recommended bicarb and a bicarb drip. Patient was intubated, placed on assist control rate of 24, volume of 350 FiO2 of 100% and PEEP at 8. Later her FiO2 was decreased down to 70%, ABG showed a pO2 of 85 pCO2 of 43 pH of 7.14. Her IV fluid is at KVO, her bicarb drip is at 50 ML per hour, and again she received 1 dose of Lasix for what seems to be worsening pulmonary edema, I suspect we are dealing with some component of acute diastolic congestive heart failure or ARDS picture/noncardiogenic pulmonary edema. I am suspecting this is cardiogenic in nature, and will likely improve with diuretics. Patient remains clinically marginal to undergo safe bronchoscopy and BAL at this point. Hence I would wait for the next 24 hours before performing bronchoscopy on this patient. Repeat ABG later showed a pO2 of 114 pCO2 of 40 0 pH of 7.5. Her CBC showed WBC count of 12.3 hemoglobin of 7.4. Elective lites are normal except bicarb is 17 BUN is 39 creatinine is down to 1.43 Reevaluated today on 03/15/2020, patient remains in the ICU, intubated and mechanically ventilated. She is now on assist control rate of 24. Tidal volume is 350 FiO2 50% and PEEP is 8 and I cut it down to 5. ABG showed a pO2 of 96 pCO2 of 39 pH of 7.30. Patient remains on broad-spectrum antibiotics, on bicarb drip at 50 ML's hour, she is on propofol at 75 mcg/kg/m, she is also on enteral feeding, adequate remains on hold, hemoglobin today is 5.9, 2 units of blood were ordered to be transfused today. Chest x-ray slight improvement noted in the right upper lobe consolidation, continues to have mild interstitial edema, hence Lasix was ordered 40 mg IV push every 12 hours. Patient is obviously not ready to be weaned or extubated. Has a long way to go. And considering her slight improvement in her right upper lobe consolidation, I would hold on bronchoscopy and BAL of the right upper lobe. Objective - Vital Signs Vital signs: Vital Signs Temp 97.3 F L 03/15/20 12:39 Pulse 82 03/15/20 12:22 Resp 24 03/15/20 12:22 BP 113/49 03/15/20 12:22 Pulse Ox 98 03/15/20 12:22 Intake & Output 03/14/20 03/15/20 03/15/20 18:59 06:59 18:59 Intake Total 2029.303 6842.002 1047.952 Output Total 612 373 680 Balance 672.253 759.002 367.952 Weight 45 kg 45 kg Intake: IV 400 670 410 Dextrose 5% in Water 1, 550 300 000 ml @ 50 mls/hr IV . Q23H [facility] with Sodium Bicarb (1 Meq/ml) 150 ml Rx#:[id number] Meropenem 1 gm In Sodium 100 100 100 Chloride 0.9% 100 ml @ 33 .3 mls/hr IVPB Q12HR [facility]IVE Rx#:[id number] Sodium Chloride 0.9% 1, 300 20 10 000 ml @ 100 mls/hr IV . Q10H [facility] Rx#:[id number] Intake, IV Titration 884.253 342.002 327.952 Amount Dextrose 5% in Water 1, 450 50 000 ml @ 50 mls/hr IV . Q23H [facility] with Sodium Bicarb (1 Meq/ml) 150 ml Rx#:[id number] Norepinephrine 8 mg In 60.798 7.214 Sodium Chloride 0.9% 250 ml @ 0.05 MCG/KG/MIN 4. 489 mls/hr IV .Q24H [facility] Rx#:[id number] Vancomycin 750 mg In 250 Sodium Chloride 0.9% 250 ml @ 125 mls/hr IVPB ONCE ONE Rx#:[id number] Vancomycin 750 mg In 250 Sodium Chloride 0.9% 250 ml @ 125 mls/hr IVPB ONCE ONE Rx#:[id number] propofoL 1,000 mg In 123.455 284.788 77.952 Empty Bag 1 bag @ Titrate IV .Q0M [facility]IVE Rx#: [id number] Blood Product 310 Rc Irr As1 Unit 310 [id number] Other 120 Output: Urine 612 373 680 Other: Voiding Method Indwelling Catheter Indwelling Catheter Indwelling Catheter ABP, PAP, CO, CI - Last Documented Arterial Blood Pressure 122/59 - Exam GENERAL EXAM: Revealed a 61-year-old female, frail looking, intubated and mechanically ventilated, on propofol drip. At 75 mcg/kg/h. Head: Atraumatic, normocephalic, endotracheal tube and orogastric tube are intact. ENT: PERRLA, EOMI, nonicteric, no neck masses, no JVD, no stridor. CHEST: No chest wall deformity. Symmetrical expansion. LUNGS: Crackles and rhonchi persist bilaterally. CVS: Regular rate and rhythm, normal S1 and S2, no gallops, no murmurs, no rubs ABDOMEN: Soft, nontender. No hepatosplenomegaly, normal bowel sounds, no guar ding or rigidity. EXTREMITIES: No clubbing, no edema, no cyanosis, 2+ pulses and upper and lower extremities. MUSCULOSKELETAL: Muscle strength and tone normal. SPINE: No scoliosis or deformity SKIN: No rashes CENTRAL NERVOUS SYSTEM: Could not be assessed, patient is on propofol drip at present. PSYCHIATRIC: Could not assess because of propofol drip. - Labs CBC & Chem 7: 03/15/20 07:43 03/15/20 05:35 Labs: Abnormal Lab Results - Last 24 Hours (Table) 03/11/20 03/14/20 03/14/20 Range/Units 14:59 18:15 23:34 RBC (3.80-5.40) m/uL Hgb (11.4-16.0) gm/dL Hct (34.0-46.0) % RDW (11.5-15.5) % Plt Count (150-450) k/uL ABG pH (7.35-7.45) ABG O2 Saturation (94-97) % Chloride (98-107) mmol/L Carbon Dioxide (22-30) mmol/L BUN (7-17) mg/dL Creatinine (0.52-1.04) mg/dL Glucose (74-99) mg/dL POC Glucose (mg/dL) 150 H 159 H (75-99) mg/dL Calcium (8.4-10.2) mg/dL Total Protein (6.3-8.2) g/dL Albumin (3.5-5.0) g/dL Methylmalonic Acid 0.46 H (<0.40) umol/L Crossmatch 03/15/20 03/15/20 03/15/20 Range/Units 05:35 05:35 05:37 RBC (3.80-5.40) m/uL Hgb (11.4-16.0) gm/dL Hct (34.0-46.0) % RDW (11.5-15.5) % Plt Count (150-450) k/uL ABG pH 7.34 L (7.35-7.45) ABG O2 Saturation 98.0 H (94-97) % Chloride 117 H (98-107) mmol/L Carbon Dioxide 21 L (22-30) mmol/L BUN 38 H (7-17) mg/dL Creatinine 1.49 H 1.54 H (0.52-1.04) mg/dL Glucose 121 H (74-99) mg/dL POC Glucose (mg/dL) (75-99) mg/dL Calcium 7.3 L (8.4-10.2) mg/dL Total Protein 4.1 L (6.3-8.2) g/dL Albumin 2.0 L (3.5-5.0) g/dL Methylmalonic Acid (<0.40) umol/L Crossmatch 03/15/20 03/15/20 03/15/20 Range/Units 05:40 07:43 08:22 RBC 2.01 L (3.80-5.40) m/uL Hgb 5.9 L* D (11.4-16.0) gm/dL Hct 18.6 L* (34.0-46.0) % RDW 20.0 H (11.5-15.5) % Plt Count 50 L (150-450) k/uL ABG pH (7.35-7.45) ABG O2 Saturation (94-97) % Chloride (98-107) mmol/L Carbon Dioxide (22-30) mmol/L BUN (7-17) mg/dL Creatinine (0.52-1.04) mg/dL Glucose (74-99) mg/dL POC Glucose (mg/dL) 134 H (75-99) mg/dL Calcium (8.4-10.2) mg/dL Total Protein (6.3-8.2) g/dL Albumin (3.5-5.0) g/dL Methylmalonic Acid (<0.40) umol/L Crossmatch See Detail 03/15/20 Range/Units 12:01 RBC (3.80-5.40) m/uL Hgb (11.4-16.0) gm/dL Hct (34.0-46.0) % RDW (11.5-15.5) % Plt Count (150-450) k/uL ABG pH (7.35-7.45) ABG O2 Saturation (94-97) % Chloride (98-107) mmol/L Carbon Dioxide (22-30) mmol/L BUN (7-17) mg/dL Creatinine (0.52-1.04) mg/dL Glucose (74-99) mg/dL POC Glucose (mg/dL) 122 H (75-99) mg/dL Calcium (8.4-10.2) mg/dL Total Protein (6.3-8.2) g/dL Albumin (3.5-5.0) g/dL Methylmalonic Acid (<0.40) umol/L Crossmatch Microbiology - Last 24 Hours (Table) 03/13/20 11:59 Gram Stain - Final Sputum Sputum Culture - Final Nicolle albicans 03/08/20 06:45 Blood Culture - Final Blood No Growth after 144 hours 03/08/20 06:30 Blood Culture - Final Blood No Growth after 144 hours Assessment and Plan Assessment: Impression: Acute hypoxic respiratory failure secondary to community-acquired pneumonia in immunocompromised host. Requiring intubation and mechanical ventilation on 03/14/2020. Suspect acute diastolic congestive heart failure or possible ARDS/noncardiogenic pulmonary edema. Also contributing to her hypoxic respiratory failure Leukocytosis secondary to above. Multiple myeloma,. Acute kidney injury. History of chronic obstructive pulmonary disease Acute on chronic kidney disease stage III. Paroxysmal atrial fibrillation. Anticoagulation remains on hold because of the anemia. History of CVA. Benign essential hypertension. Dyslipidemia. Acute on chronic anemia, GI workup is pending to look into possibility of GI blood loss. In the meantime the patient will receive 2 units of irradiated RBCs today. Recommendation: Continue ventilatory support. Nutritional support/enteral feeding. Continue propofol and sedation. Decrease PEEP to 5. Continue antibiotics including vancomycin and Merrem. Continue diuretics as chest x-ray today showed improvement compared to the one yesterday specially after diuresing the patient. Not planning bronchoscopy , at least up today. Continue bicarb, and possibly discontinue in the next 24 hours Patient is critically ill. Critical care time is 35minutes We'll continue to follow. Time with Patient: Greater than 30
[2020-03-15 17:35] LABS: Glucose,Whole Blood 117 mg/dL (75-99)
[2020-03-15 17:43] LABS: Anisocytosis Slight; HCT 29.2 % (34.0-46.0); Hypochromasia Moderate; MCH 28.8 pg (25.0-35.0); MCHC 31.7 g/dL (31.0-37.0); MCV 90.8 fL (80.0-100.0); Mean Platelet Volume 9.3; Poikilocytosis Slight; RBC 3.21 m/uL (3.80-5.40); RDW 17.5 % (11.5-15.5); WBC 10.8 k/uL (3.8-10.6)
[2020-03-15 17:49] LABS: HGB 9.3 gm/dL (11.4-16.0)
[2020-03-15 17:50] LABS: Platelet Count 44 k/uL (150-450)
[2020-03-15] MEDS: LATANOPROST 0.005% OPHTH DROPS 2.5 ML BTL BOTH EYES SCH (19:48)
--- NOTE | 2020-03-15 20:13 | PN ---
PROGRESS NOTE DATE OF SERVICE: 03/15/2020 REASON FOR FOLLOWUP: Pneumonia. INTERVAL HISTORY: The patient is currently afebrile. The patient is hemodynamically stable. FiO2 is currently stable at 50%. No significant purulent secretions through the ET or any diarrhea reported by the nursing staff. PHYSICAL EXAMINATION: Blood pressure 112/51 with a pulse of 78, temperature 98. She is 98% on 50% FiO2. General description is an elderly female lying in bed in no distress. RESPIRATORY SYSTEM: Unlabored breathing with decreased breath sounds at the base. No wheeze. HEART: S1, S2. Regular rate and rhythm. ABDOMEN: Soft. No tenderness. LABS: Hemoglobin 9.3, white count 10.8. BUN of 38, creatinine 1.54. DIAGNOSTIC IMPRESSION AND PLAN: Patient with acute respiratory failure which is multifactorial with a component of pneumonia. Sputum is showing Nicolle albicans, more likely colonizer. Tracheal aspiration will be requested. Covered with vancomycin and meropenem because of her allergies. However, MRSA will recommend discontinuing vancomycin and monitor her clinical course closely. MMODL / IJN: [id number] /
--- NOTE | 2020-03-15 22:30 | P.PN ---
Progress Note - Text Progress Note Date: 03/15/20 Presenting complaint: Intubated Interval history: This is a very pleasant 69-year-old patient of Dr. Villalobos. Chronic stable medical conditions include paroxysmal atrial flutter fibrillation, , CHF with an EF of 50-55%, tricuspid and mitral regurgitation, secondary pulmonary hypertension, chronic kidney disease stage IV, hypertension, hyperlipidemia,. Patient also being treated for multiple myeloma. on REVLIMID Patient presented with shortness of breath confusion cough congestion. Admitted with right upper lobe pneumonia, acute delirium. Started on IV aztreonam and azithromycin. Developed black tarry stools. Dropped hemoglobin. 1 unit of blood given. Patient desaturated. Moved to the ICU on March 11. Intubated March 14-placed on IV levo fed propofol antibiotics changed to IV meropenem [id number]. FiO2 50 and a PEEP of 8. Drips included propofol, norepinephrine, bicarbonate. On Daniel hugger. Given 2 units of blood. Review of systems: Patient intubated Active Medications Acetaminophen (Acetaminophen Tab 325 Mg Tab) 650 mg PO Q4HR PRN PRN Reason: Fever and/ or Pain Last Admin: 03/11/20 22:00 Dose: 650 mg Documented by: Albuterol/Ipratropium (Ipratropium-Albuterol 3 Ml Neb) 3 ml INHALATION RT-Q4H [facility] Last Admin: 03/15/20 21:02 Dose: 3 ml Documented by: Calcitriol (Calcitriol 0.25 Mcg Cap) 0.25 mcg PO PC-LUNCH [facility] Last Admin: 03/15/20 12:09 Dose: Not Given Documented by: Calcium Carbonate (Calcium Carb-Vit D 500mg-200un 1 Each Tab) 2 each PO DAILY@1200 [facility] Last Admin: 03/15/20 12:20 Dose: 2 each Documented by: Chlorhexidine Gluconate (Chlorhexidine Gluconate 15 Ml Cup) 15 ml MUCOUS MEM BID [facility] Last Admin: 03/15/20 19:48 Dose: 15 ml Documented by: Furosemide (Furosemide 10 Mg/Ml 4 Ml Vial) 40 mg IV Q12HR [facility] Last Admin: 03/15/20 19:48 Dose: 40 mg Documented by: Guaifenesin (Guaifenesin 600 Mg Tablet.Er) 600 mg PO Q8HR [facility] Last Admin: 03/15/20 17:41 Dose: 600 mg Documented by: Hydromorphone HCl (Hydromorphone 1 Mg/Ml 1 Ml Syringe) 1 mg IVP Q2HR PRN PRN Reason: Pain Last Admin: 03/15/20 20:30 Dose: 1 mg Documented by: Meropenem 1 gm/ Sodium (Chloride) 100 mls @ 33.3 mls/hr IVPB Q12HR [facility]; Protocol Last Admin: 03/15/20 19:48 Dose: 33.3 mls/hr Documented by: Propofol 1,000 mg/ IV Solution 100 mls @ 0 mls/hr IV .Q0M [facility]; Protocol Last Admin: 03/15/20 21:02 Dose: 75 mcg/kg/min, 20.25 mls/hr Documented by: Sodium Bicarbonate 150 ml/ (Dextrose/Water) 1,150 mls @ 50 mls/hr IV .Q23H [facility] Last Admin: 03/15/20 08:14 Dose: 50 mls/hr Documented by: Norepinephrine Bitartrate 8 mg (/ Sodium Chloride) 258 mls @ 4.489 mls/hr IV .Q24H [facility]; Protocol Last Admin: 03/15/20 09:23 Dose: Not Given Documented by: Vancomycin HCl 750 mg/ Sodium (Chloride) 250 mls @ 125 mls/hr IVPB ONCE ONE Stop: 03/16/20 10:59 Insulin Aspart (Insulin Aspart (Novolog) 100 Unit/Ml Vial) 0 unit SQ Q6H [facility]; Protocol Last Admin: 03/15/20 17:35 Dose: Not Given Documented by: Latanoprost (Latanoprost 0.005% Ophth Drops 2.5 Ml Btl) 1 drops BOTH EYES HS [facility] Last Admin: 03/15/20 19:48 Dose: 1 drops Documented by: Lorazepam (Lorazepam 2 Mg/Ml Inj) 0.5 mg IV Q12H PRN PRN Reason: Anxiety Methylprednisolone Sodium Succinate (Methylprednisolone Sod Succi 125 Mg/2 Ml Vial) 60 mg IV Q6HR [facility] Last Admin: 03/15/20 17:41 Dose: 60 mg Documented by: Metoprolol Tartrate (Metoprolol Tartrate 25 Mg Tab) 25 mg PO BID@1200,2100 [facility] Last Admin: 03/15/20 19:48 Dose: 25 mg Documented by: Miscellaneous Information (Pneumonia Protocol Utilized 1 Each Misc) 1 each PO ONCE PRN PRN Reason: Per Protocol Miscellaneous Information (Vancomycin Iv Per Pharmacy 1 Each [facility] [place]) 1 each MISCELLANE DIRECTED PRN; Protocol PRN Reason: Per Protocol Pantoprazole Sodium (Pantoprazole 40 Mg/10 Ml Vial) 40 mg IVP BID [facility] Last Admin: 03/15/20 19:48 Dose: 40 mg Documented by: Potassium Bicarbonate (Potassium Bicarbonate/Cit Ac 20 Meq Tablet.Eff) 20 meq PO DAILY [facility] Last Admin: 03/15/20 12:20 Dose: 20 meq Documented by: Sertraline HCl (Sertraline 100 Mg Tab) 200 mg PO PC-LUNCH [facility] Last Admin: 03/15/20 12:21 Dose: 200 mg Documented by: Sodium Bicarbonate (Sodium Bicarbonate Tab 650 Mg Tab) 1,300 mg PO DAILY@1200 [facility] Last Admin: 03/15/20 12:20 Dose: 1,300 mg Documented by: Sodium Bicarbonate (Sodium Bicarbonate Tab 650 Mg Tab) 650 mg PO HS [facility] Last Admin: 03/15/20 19:48 Dose: 650 mg Documented by: Physical examination: VITAL SIGNS: 98.1, 78, 24, 102/48, 98% on the ventilator GENERAL: Laying in bed, intubated EYES: Pupils equal. Conjunctiva pale HEENT: External appearance of nose and ears normal, oral G-tube NECK: JVD not raised; masses not palpable. HEART: First and second heart sounds are normal; no edema. LUNGS: Respiratory rate increased, decreased breath sounds ABDOMEN: Soft, nontender, liver spleen not palpable, no masses palpable. PSYCH: Sedated MUSCULOSKELETAL: Diffuse wasting of muscles Investigations, reviewed in the clinical context: March 15: White count 7.4 hemoglobin 5.9 platelets 50 BUN 38 creatinine 1.5 for March 14: White count 12.3 hemoglobin 7.4 potassium 4.8 bun 39 creatinine 1.43. ABG show pH of 7.15 March 13: White count 15.4 hemoglobin 8.7 platelets 91 bun 36 creatinine 1.48 March 12: White count 23.4 hemoglobin 9.2 platelets 113. Check stat x-ray film-right upper lobe dense infiltrate March 11: White count 9.2 hemoglobin 6 platelets 86potassium 5 creatinine 1.56 pro-calcitonin 1.34 Pro-calcitonin 1.84 White count 14 hemoglobin 8.1 platelets 134 potassium 4.2 BUN 47 creatinine 2.64 Lactic acid 4.9 Coronavirus P/Cr-not detected VQ scan-low probability for PE EKG tracing personally reviewed by me-normal sinus rhythm some ST segment changes Chest k-pvb-rlctam infiltrate throughout the right upper lobe and the superior segment of the right lower lobe Assessment: -Right upper lobe pneumonia, suspect gram-negative organism in an immunosuppressed patient, , POA,-slow to respond -Acute GI bleed patient having dark stools. -Paroxysmal atrial flutter and fibrillation-with rapid ventricular rate then went back into sinus rhythm -Anemia multifactorial including that of chronic disease including multiple myeloma -Acute COPD exacerbation in a ex-smoker, -Chronic congestive heart failure from systolic and diastolic dysfunction EF 50- 55% -Moderate tricuspid and severe mitral regurgitation, nontraumatic -Severe secondary pulmonary hypertension secondary to CHF and COPD -Multiple myeloma on chemotherapy -Chronic kidney disease secondary to multiple myeloma stage IV and chronic interstitial nephropathy -Essential hypertension -Hyperlipidemia -Severe protein calorie malnutrition due to poor oral intake. BMI 14.4 -Chronic medical debility -Multiple old rib fractures due to multiple myeloma -Acute GI bleed dropping hemoglobin down to 6.-Received total of 3 units of blood -Acute hypoxic respiratory failure-worsening overnight-intubated on the ventilator March 14-slow to respond -Hypotensive shock-on levo fed-slow to respond Plan: Patient currently on bronchodilators, IV meropenem, IV Solu-Medrol, IV vancomycin. IV propofol, IV levo fed. Receive 2 units of blood.
[2020-03-16 00:04] LABS: Glucose,Whole Blood 131 mg/dL (75-99)
[2020-03-16] MEDS: INSULIN ASPART (NovoLOG) 100 UNIT/ML VIAL SQ SCH ×4 (00:09→17:40)
[2020-03-16] MEDS: guaiFENesin 600 MG TABLET.ER PO SCH ×2 (00:11→09:11)
[2020-03-16] MEDS: methylPREDNISolone SOD SUCCI 125 MG/2 ML VIAL IV SCH ×4 (00:11→17:45)
[2020-03-16] MEDS: IPRATROPIUM-ALBUTEROL 3 ML NEB INHALATION SCH ×6 (00:49→20:51)
[2020-03-16 04:29] LABS: Anisocytosis Slight; HCT 28.9 % (34.0-46.0); HGB 9.6 gm/dL (11.4-16.0); Hypochromasia Slight; MCH 29.9 pg (25.0-35.0); MCHC 33.4 g/dL (31.0-37.0); MCV 89.4 fL (80.0-100.0); Mean Platelet Volume 9.4; Poikilocytosis Slight; RBC 3.23 m/uL (3.80-5.40); RDW 17.6 % (11.5-15.5); WBC 9.5 k/uL (3.8-10.6)
[2020-03-16 04:32] LABS: Platelet Count 48 k/uL (150-450)
[2020-03-16 04:33] LABS: Potassium 4.3 mmol/L (3.5-5.1)
[2020-03-16 05:29] LABS: Allen Test Performed? Yes
[2020-03-16 05:30] LABS: ABG Base Excess 1.1 mmol/L; ABG HCO3 26 mmol/L (21-25); ABG Oxygen Saturation 99.3 % (94-97); ABG PCO2 41 mmHg (35-45); ABG PO2 129 mmHg (83-108); ABG TCO2 27 mmol/L (19-24)
[2020-03-16] MEDS: DEXTROSE 5% IN WATER 1,000 ML with SODIUM BICARB (1 MEQ/ML) 150 ML IV SCH (05:49)
[2020-03-16 05:58] LABS: Glucose,Whole Blood 120 mg/dL (75-99)
--- NOTE | 2020-03-16 07:46 | XR ---
EXAMINATION TYPE: XR chest 1V portable DATE OF EXAM: 03/16/2020 Comparison: 03/15/2020 Clinical History: 69 year-old female tube placement Findings: ET tube is satisfactory. NG tube is high r, the sidehole is located 2.5 cm above the GE junction. Rec ommend advancement by 7 cm into the stomach. Heart borderline in size. Hyperinflation. Diffuse inters titial opacity. Right upper lobe consolidation with underlying cavitary change redemonstrated. Gabbie us subacute healing bilateral rib fracture deformities. Impression: 1. COPD with continued diffuse interstitial opacities. Continued right upper lobe consolidation with associated cavitary change. Numerous subacute to chronic sclerotic rib fracture deformities. 2. Note that the NG tube is high. Advance by 7 cm so that the sidehole into the stomach.
[2020-03-16] MEDS ORDERED: VANCOMYCIN 750 MG in SODIUM CHLORIDE 0.9% 250 ML IVPB ONE (09:00)
[2020-03-16] MEDS: POTASSIUM BICARBONATE/CIT AC 20 MEQ TABLET.EFF PO SCH (09:11)
[2020-03-16] MEDS: FUROSEMIDE 10 MG/ML 4 ML VIAL IV SCH ×2 (09:12→19:40)
[2020-03-16] MEDS: CHLORHEXIDINE GLUCONATE 15 ML CUP MUCOUS MEM SCH ×2 (09:12→19:40)
[2020-03-16] MEDS: PANTOPRAZOLE 40 MG/10 ML VIAL IVP SCH ×2 (09:12→19:40)
[2020-03-16] MEDS: NOREPINEPHRINE 8 MG in SODIUM CHLORIDE 0.9% 250 ML IV SCH (09:13)
[2020-03-16] MEDS ORDERED: CISATRACURIUM 2 MG/ML 5 ML VIAL IV ONE ×2 (09:31→09:32)
--- NOTE | 2020-03-16 10:23 | PCN ---
PROCEDURE NOTE OPERATORS: Dr. Hart and Dr. Alves. PREOPERATIVE DIAGNOSIS: Pneumonia right upper lobe. POSTOPERATIVE DIAGNOSIS: Pneumonia right upper lobe. PROCEDURE: Bronchoscopy at the bedside in a patient who was intubated. There was informed consent and universal timeout. The patient was sedated and paralyzed. We used a bedside simple bronchoscopy. The bronchoscope was inserted through the bronchoscope adapter connected to the endotracheal tube. It was taken down to the trachea. The trachea appeared normal. Tracheal yun was sharp. There were thick secretions noted in the right upper lobe. We did a BAL in the right upper lobe. About 40 mL of turbid purulent looking material was recovered. It will be sent to the laboratory for analysis. We then cleanse the rest of the airways with saline. There was some bloody coagulum noted on the left side. There was diffuse bronchitis and erythema of the airways throughout. There was some mild mucosal friability. There was also some hyperemia of the airways. There was no dominant mass or tumors. After all the secretions were removed, the bronchoscope was withdrawn. The patient tolerated the procedure well. For the procedure by the way, the patient was placed on 100% oxygen. She will be titrated back down to 40%. Again, there was no immediate complication. MMODL / IJN: [id number] /
[2020-03-16] MEDS: METOPROLOL TARTRATE 25 MG TAB PO SCH ×2 (12:07→19:40)
[2020-03-16] MEDS: CALCIUM CARB-VIT D 500 MG-5 MCG TAB PO SCH (12:08)
[2020-03-16] MEDS: SODIUM BICARBONATE TAB 650 MG TAB PO SCH ×2 (12:08→19:40)
--- NOTE | 2020-03-16 12:23 | PN ---
PROGRESS NOTE PULMONARY/CRITICAL CARE PROGRESS NOTE: DATE OF SERVICE: March 16, 2020 This is a 69-year-old female who was admitted on March 08. Her admission diagnosis included a black stools, atrial fibrillation with RVR, and pneumonia. She was initially admitted to [address] [place] [address]. She came to the ICU on 11 of March and unfortunately, because of worsening respiratory failure, was intubated on March 14. Today, we did bronchoscopies focusing on the infiltrate in the right upper lobe. The BAL was done in that area. Currently, she is on the volume assist-control modality rate of 24, tidal volume 350, FiO2 of 40%, PEEP of 8. Blood gases show a pO2 of 129, pCO2 of 41 and a pH 7.4. Those blood gases were done on 50% and hence the reduction of FiO2 down to 40%. She is currently on propofol at 75 mcg/kg per minute, a bicarbonate drip which can be discontinued, norepinephrine, which has been off since yesterday evening, and saline at KVO. She is also getting Vital high-protein at 21 mL an hour. She is apparently scheduled for an EGD today. Since she has been here, she has received a total of 3 units of PRBCs. PHYSICAL EXAMINATION: VITAL SIGNS: Current vital signs include a temperature which is 95.9, heart rate which is 103, respiratory rate 26, blood pressure 93/46, CVP which is 8, and saturation 94%. GENERAL: Appears in no acute distress. HEENT: Examination is grossly unremarkable. There is an orally placed endotracheal tube and NG tube. NECK: Supple. Full range of motion. No adenopathy. Neck veins are flat. CARDIOVASCULAR: Examination reveals regular rhythm and rate. Heart rate 103. S1, S2 normal. Heart sounds are distant. LUNGS: Reveal diffuse coarse rhonchi. Breath sounds are equal bilaterally. No crackles. ABDOMEN: Soft. Bowel sounds are noted. EXTREMITIES: Are intact. No edema. SKIN: Without rash. NEUROLOGIC: Examination is difficult to assess. She is currently sedated on propofol at 75 mcg/kg per minute. LABORATORY DATA: Laboratory data is reviewed. White count 9.5, hemoglobin 9.6, hematocrit 28.9, platelet count 48,000. Blood gases have been noted. Sodium 141, potassium 4.3, chloride 111, CO2 of 26. Anion gap is 4. BUN and creatinine were 43 and 1.58. Calcium 7. Microbiology is positive for Nicolle albicans in the sputum from March 13. Chest x-ray shows diffuse bilateral patchy infiltrates with consolidation most notable in the right upper lobe. CURRENT MEDICATIONS: Current medications are reviewed. The patient is on Tylenol, calcitriol, Os-Miah with D, chlorhexidine, Lasix, guaifenesin, Dilaudid, insulin, DuoNeb, eye drops, meropenem, Solu-Medrol, metoprolol, Protonix, potassium bicarbonate replacement, propofol, Zoloft, sodium bicarbonate tablets, and vancomycin. ASSESSMENT: 1. Acute hypoxemic respiratory failure secondary to community-acquired pneumonia, requiring intubation on March 14, 2020. 2. Status post bronchoscopy and BAL right upper lobe, March 16, 2020. 3. Acute diastolic congestive heart failure. 4. Multiple myeloma by history. 5. History of acute kidney injury. 6. Chronic obstructive pulmonary disease. 7. Stage 3 chronic kidney disease. 8. Paroxysmal atrial fibrillation. 9. History of cerebrovascular accident. 10.History of essential hypertension. 11.Hyperlipidemia. 12.Acute on chronic anemia. PLAN: The patient underwent bronchoscopy today. We increased the FiO2 to 100% during the procedure. She also received cisatracurium or Nimbex 10 mg IV push prior to the procedure so it could be done safely. The Levophed has been off. She is getting tube feeds. The bicarbonate drip can be discontinued. She is on propofol at 75 mcg/kg per minute. Since she has been here, she has received a total of 3 units of PRBCs. She is scheduled for an EGD today. Prognosis is guarded. Critical care time greater than 30 minutes. MMODL / IJN: [id number] /
[2020-03-16] MEDS: MEROPENEM 1 GM in SODIUM CHLORIDE 0.9% 100 ML IVPB SCH ×2 (12:59→19:40)
[2020-03-16 13:03] LABS: Glucose,Whole Blood 109 mg/dL (75-99)
[2020-03-16] MEDS: SERTRALINE 100 MG TAB PO SCH (13:03)
[2020-03-16] MEDS: HYDROmorphone 1 MG/ML 1 ML SYRINGE IVP PRN ×2 (16:00→21:07)
--- NOTE | 2020-03-16 16:30 | P.PCN ---
Date of Procedure: 03/16/20 Description of Procedure: BRIEF HISTORY: Patient is a 61-year-old female with multiple medical comorbidities including multiple myeloma currently hospitalized for pneumonia patient is intubated and sedated, with the GI consult is to see the patient due to concerns over GI bleed after patient had melena and fall in hemoglobin. Patient has previously been on anticoagulation therapy which is on hold. Hemoglobin fell to 5.9 with reports of black tarry bowel movements. No further episodes since that time. Hemoglobin is stable above 9 on 2 separate occasions after transfusion. PROCEDURE PERFORMED: Esophagogastroduodenoscopy with biopsy. PREOPERATIVE DIAGNOSIS: Melena, anemia of acute blood loss. ESTIMATED BLOOD LOSS: Minimal. IV sedation per anesthesia. PROCEDURE: After informed consent was obtained, the patient was brought into the endoscopy unit. IV sedation was administered by Anesthesia under continuous monitoring. Initially the Olympus GIF-190 video endoscope was inserted into the mouth. Esophagus intubated without any difficulty. It was gradually advanced into the stomach and duodenum and carefully examined. The bulb and the second part of the duodenum appeared normal, with biopsies taken. The scope at this time was withdrawn to the stomach, adequately insufflated with air, and upon careful examination, mucosa of the antrum, body, cardia and the fundus appeared normal, except for some mild punctate erythema in the antrum and body with biopsies ta samanta. There was some debris which obscured complete visualization of the mucosa, this was treated with lavage and suction which improve visualization, however complete examination of the mucosa was not possible due to debris in the stomach. The scope was then withdrawn into the esophagus. The GE junction was located at 37 cm from the incisors. The esophagus appeared normal. There were no erosions or ulcerations seen and the patient tolerated the procedure well. IMPRESSION: 1. No active bleeding, old blood or pathology to explain symptoms of anemia found on upper endoscopy. 2. Mild gastritis. 3. Biopsies of the duodenum, and antrum and body. RECOMMENDATIONS: The findings of this examination were discussed with the patients nursing team. Okay to resume tube feeds. Continue to monitor hemoglobin and hematocrit and transfuse as needed. Continue prophylactic Protonix therapy. Hematology/oncology service also following the patient with a known history of multiple myeloma. Continue other ICU management.
--- NOTE | 2020-03-16 16:49 | P.PN ---
Subjective Progress Note Date: 03/16/20 Principal diagnosis: PNA, multiple myeloma Sedated and mechanically ventilated Objective - Vital Signs Vital signs: Vital Signs Temp 95.9 F L 03/16/20 04:00 Pulse 103 H 03/16/20 10:00 Resp 26 H 03/16/20 10:00 BP 102/49 03/15/20 15:54 Pulse Ox 94 L 03/16/20 10:00 Intake & Output 03/15/20 03/16/20 03/16/20 18:59 06:59 18:59 Intake Total 1885.556 971.641 167.163 Output Total 1046 1320 305 Balance 839.556 -348.359 -137.837 Weight 45 kg 51.2 kg Intake: IV 760 550 100 Dextrose 5% in Water 1, 650 550 100 000 ml @ 50 mls/hr IV . Q23H [facility] with Sodium Bicarb (1 Meq/ml) 150 ml Rx#:[id number] Meropenem 1 gm In Sodium 100 Chloride 0.9% 100 ml @ 33 .3 mls/hr IVPB Q12HR [facility] Rx#:[id number] Sodium Chloride 0.9% 1, 10 000 ml @ 100 mls/hr IV . Q10H [facility] Rx#:[id number] Intake, IV Titration 505.556 235.641 67.163 Amount Vancomycin 750 mg In 250 Sodium Chloride 0.9% 250 ml @ 125 mls/hr IVPB ONCE ONE Rx#:[id number] propofoL 1,000 mg In 255.556 235.641 67.163 Empty Bag 1 bag @ Titrate IV .Q0M [facility] Rx#: [id number] Tube Feeding 126 Blood Product 620 Rc Irr As1 Unit 310 [id number] Rc Irr As1 Unit 310 [id number] Other 60 Output: Urine 1046 1320 305 Other: Voiding Method Indwelling Catheter Indwelling Catheter Indwelling Catheter ABP, PAP, CO, CI - Last Documented Arterial Blood Pressure 93/46 - Constitutional General appearance: Present: thin - EENT Eyes: Present: anicteric sclerae - Respiratory Respiratory: bilateral: diminished - Cardiovascular Heart sounds: normal: S1, S2 Abnormal Heart Sounds: Absent: systolic murmur, diastolic murmur, rub, S3 Gallop, S4 Gallop, click, other - Peripheral edema leg Peripheral Edema: bilateral: Trace - Gastrointestinal General gastrointestinal: Present: decreased bowel sounds, soft - Musculoskeletal Musculoskeletal Comment(s): JAELYN Musculoskeletal: Absent: gait normal, generalized weakness, strength equal bilaterally, right sided weakness, left sided weakness - Psychiatric Psychiatric Comment(s): [facility] Psychiatric: Absent: A&O x's 3, appropriate affect, intact judgment & insight - Labs CBC & Chem 7: 03/16/20 03:53 03/16/20 03:53 Labs: Abnormal Lab Results - Last 24 Hours (Table) 03/15/20 03/15/20 03/15/20 Range/Units 08:22 12:01 17:22 WBC 10.8 H (3.8-10.6) k/uL RBC 3.21 L (3.80-5.40) m/uL Hgb 9.3 L D (11.4-16.0) gm/dL Hct 29.2 L (34.0-46.0) % RDW 17.5 H (11.5-15.5) % Plt Count 44 L (150-450) k/uL ABG pO2 (83-108) mmHg ABG HCO3 (21-25) mmol/L ABG Total CO2 (19-24) mmol/L ABG O2 Saturation (94-97) % Chloride (98-107) mmol/L BUN (7-17) mg/dL Creatinine (0.52-1.04) mg/dL Glucose (74-99) mg/dL POC Glucose (mg/dL) 122 H (75-99) mg/dL Calcium (8.4-10.2) mg/dL Crossmatch See Detail 03/15/20 03/16/20 03/16/20 Range/Units 17:33 00:02 03:53 WBC (3.8-10.6) k/uL RBC (3.80-5.40) m/uL Hgb (11.4-16.0) gm/dL Hct (34.0-46.0) % RDW (11.5-15.5) % Plt Count (150-450) k/uL ABG pO2 (83-108) mmHg ABG HCO3 (21-25) mmol/L ABG Total CO2 (19-24) mmol/L ABG O2 Saturation (94-97) % Chloride 111 H (98-107) mmol/L BUN 43 H (7-17) mg/dL Creatinine 1.58 H (0.52-1.04) mg/dL Glucose 132 H (74-99) mg/dL POC Glucose (mg/dL) 117 H 131 H (75-99) mg/dL Calcium 7.0 L (8.4-10.2) mg/dL Crossmatch 03/16/20 03/16/20 03/16/20 Range/Units 03:53 05:18 05:46 WBC (3.8-10.6) k/uL RBC 3.23 L (3.80-5.40) m/uL Hgb 9.6 L (11.4-16.0) gm/dL Hct 28.9 L (34.0-46.0) % RDW 17.6 H (11.5-15.5) % Plt Count 48 L (150-450) k/uL ABG pO2 129 H (83-108) mmHg ABG HCO3 26 H (21-25) mmol/L ABG Total CO2 27 H (19-24) mmol/L ABG O2 Saturation 99.3 H (94-97) % Chloride (98-107) mmol/L BUN (7-17) mg/dL Creatinine (0.52-1.04) mg/dL Glucose (74-99) mg/dL POC Glucose (mg/dL) 120 H (75-99) mg/dL Calcium (8.4-10.2) mg/dL Crossmatch Microbiology - Last 24 Hours (Table) 03/13/20 11:59 Gram Stain - Final Sputum Sputum Culture - Final Nicolle albicans - Imaging and Cardiology Chest x-ray: report reviewed Assessment and Plan (1) Inger light chain myeloma Narrative/Plan: Pt myeloma treatment has been on hold. Her m-spike is 0/19g/dl, stable. Not th e cause of pt current condition. Current Visit: No Status: Chronic Priority: Low Code(s): C90.00 - MULTIPLE MYELOMA NOT HAVING ACHIEVED REMISSION SNOMED Code(s): 821579398 (2) Bicytopenia Narrative/Plan: Not requiring transfusion at this time Please hold anticoagulation for plt <50,000, Use SCDs Transfuse for Hgb<7 Current Visit: Yes Status: Chronic Priority: Medium Code(s): D75.89 - OTHER SPECIFIED DISEASES OF BLOOD AND BLOOD-FORMING ORGANS SNOMED Code(s): 06101542 Plan: S/P bronch with washings
[2020-03-16 17:41] LABS: Glucose,Whole Blood 112 mg/dL (75-99)
[2020-03-16 18:22] LABS: Appearance,BF Cloudy; Nucleated Cells, Body Fluid 40 /uL; RBC, Body Fluid 20 /uL
[2020-03-16 18:46] LABS: Mononuclear WBC,Body Fluid 94 %; Polynuclear WBC,Body Fluid 6 %; Total Cells Counted,Body Fluid 100
[2020-03-16] MEDS: LATANOPROST 0.005% OPHTH DROPS 2.5 ML BTL BOTH EYES SCH (19:40)
--- NOTE | 2020-03-16 20:17 | P.PN ---
Progress Note - Text Progress Note Date: 03/16/20 Presenting complaint: Intubated Interval history: This is a very pleasant 69-year-old patient of Dr. Villalobos. Chronic stable medical conditions include paroxysmal atrial flutter fibrillation, , CHF with an EF of 50-55%, tricuspid and mitral regurgitation, secondary pulmonary hypertension, chronic kidney disease stage IV, hypertension, hyperlipidemia,. Patient also being treated for multiple myeloma. on REVLIMID Patient presented with shortness of breath confusion cough congestion. Admitted with right upper lobe pneumonia, acute delirium. Started on IV aztreonam and azithromycin. Developed black tarry stools. Dropped hemoglobin. 1 unit of blood given. Patient desaturated. Moved to the ICU on March 11. Intubated March 14-placed on IV levo fed propofol antibiotics changed to IV meropenem [id number]. FiO2 40 and a PEEP of 8. Drips included propofol, , bicarbonate. Had bronchoscopy done by Dr. Acevedo today-thick philomena, secretions obtained.. Review of systems: Patient intubated Active Medications Acetaminophen (Acetaminophen Tab 325 Mg Tab) 650 mg PO Q4HR PRN PRN Reason: Fever and/ or Pain Last Admin: 03/11/20 22:00 Dose: 650 mg Documented by: Albuterol/Ipratropium (Ipratropium-Albuterol 3 Ml Neb) 3 ml INHALATION RT-Q4H [facility] Last Admin: 03/16/20 15:24 Dose: 3 ml Documented by: Calcitriol (Calcitriol 0.25 Mcg Cap) 0.25 mcg PO PC-LUNCH [facility] Last Admin: 03/16/20 13:03 Dose: Not Given Documented by: Calcium Carbonate (Calcium Carb-Vit D 500mg-200un 1 Each Tab) 2 each PO DAILY@1200 [facility] Last Admin: 03/16/20 12:08 Dose: Not Given Documented by: Chlorhexidine Gluconate (Chlorhexidine Gluconate 15 Ml Cup) 15 ml MUCOUS MEM BID [facility] Last Admin: 03/16/20 19:40 Dose: 15 ml Documented by: Furosemide (Furosemide 10 Mg/Ml 4 Ml Vial) 40 mg IV Q12HR [facility] Last Admin: 03/16/20 19:40 Dose: 40 mg Documented by: Hydromorphone HCl (Hydromorphone 1 Mg/Ml 1 Ml Syringe) 1 mg IVP Q2HR PRN PRN Reason: Pain Last Admin: 03/16/20 16:00 Dose: 1 mg Documented by: Meropenem 1 gm/ Sodium (Chloride) 100 mls @ 33.3 mls/hr IVPB Q12HR [facility]; Protocol Last Admin: 03/16/20 19:40 Dose: 33.3 mls/hr Documented by: Propofol 1,000 mg/ IV Solution 100 mls @ 0 mls/hr IV .Q0M [facility]; Protocol Last Admin: 03/16/20 19:16 Dose: 60 mcg/kg/min, 18.432 mls/hr Documented by: Insulin Aspart (Insulin Aspart (Novolog) 100 Unit/Ml Vial) 0 unit SQ Q6H [facility]; Protocol Last Admin: 03/16/20 17:40 Dose: Not Given Documented by: Latanoprost (Latanoprost 0.005% Ophth Drops 2.5 Ml Btl) 1 drops BOTH EYES [facility] Last Admin: 03/16/20 19:40 Dose: 1 drops Documented by: Methylprednisolone Sodium Succinate (Methylprednisolone Sod Succi 125 Mg/2 Ml Vial) 60 mg IV Q6HR [facility] Last Admin: 03/16/20 17:45 Dose: 60 mg Documented by: Metoprolol Tartrate (Metoprolol Tartrate 25 Mg Tab) 25 mg PO BID@1200,2100 [facility] Last Admin: 03/16/20 19:40 Dose: 25 mg Documented by: Miscellaneous Information (Pneumonia Protocol Utilized 1 Each [facility]) 1 each PO ONCE PRN PRN Reason: Per Protocol Miscellaneous Information (Vancomycin Iv Per Pharmacy 1 Each [facility]) 1 each MISCELLANE DIRECTED PRN; Protocol PRN Reason: Per Protocol Pantoprazole Sodium (Pantoprazole 40 Mg/10 Ml Vial) 40 mg IVP BID [facility] Last Admin: 03/16/20 19:40 Dose: 40 mg Documented by: Sertraline HCl (Sertraline 100 Mg Tab) 200 mg PO PC-LUNCH [facility] Last Admin: 03/16/20 13:03 Dose: Not Given Documented by: Sodium Bicarbonate (Sodium Bicarbonate Tab 650 Mg Tab) 1,300 mg PO DAILY@1200 [facility] Last Admin: 03/16/20 12:08 Dose: Not Given Documented by: Sodium Bicarbonate (Sodium Bicarbonate Tab 650 Mg Tab) 650 mg PO HS [facility] Last Admin: 03/16/20 19:40 Dose: 650 mg Documented by: Physical examination: VITAL SIGNS: 98.9, 89, 26, 95/40, 6% on the ventilator GENERAL: Laying in bed, intubated EYES: Pupils equal. Conjunctiva pale HEENT: External appearance of nose and ears normal, oral G-tube NECK: JVD not raised; masses not palpable. HEART: First and second heart sounds are normal; no edema. LUNGS: Respiratory rate increased, decreased breath sounds ABDOMEN: Soft, nontender, liver spleen not palpable, no masses palpable. PSYCH: Sedated MUSCULOSKELETAL: Diffuse wasting of muscles Investigations, reviewed in the clinical context: March 15: White count 7.4 hemoglobin 5.9 platelets 50 BUN 38 creatinine 1.5 for March 14: White count 12.3 hemoglobin 7.4 potassium 4.8 bun 39 creatinine 1.43. ABG show pH of 7.15 March 13: White count 15.4 hemoglobin 8.7 platelets 91 bun 36 creatinine 1.48 March 12: White count 23.4 hemoglobin 9.2 platelets 113. Check stat x-ray film-right upper lobe dense infiltrate March 11: White count 9.2 hemoglobin 6 platelets 86potassium 5 creatinine 1.56 pro-calcitonin 1.34 Pro-calcitonin 1.84 White count 14 hemoglobin 8.1 platelets 134 potassium 4.2 BUN 47 creatinine 2.64 Lactic acid 4.9 Coronavirus P/Cr-not detected VQ scan-low probability for PE EKG tracing personally reviewed by me-normal sinus rhythm some ST segment changes Chest [id number] infiltrate throughout the right upper lobe and the superior segment of the right lower lobe Assessment: -Right upper lobe pneumonia, suspect gram-negative organism in an immunosuppressed patient, , POA,-slow to respond -Acute GI bleed patient having dark stools. -Paroxysmal atrial flutter and fibrillation-with rapid ventricular rate then went back into sinus rhythm -Anemia multifactorial including that of chronic disease including multiple myeloma -Acute COPD exacerbation in a ex-smoker, -Chronic congestive heart failure from systolic and diastolic dysfunction EF 50- 55% -Moderate tricuspid and severe mitral regurgitation, nontraumatic -Severe secondary pulmonary hypertension secondary to CHF and COPD -Multiple myeloma on chemotherapy -Chronic kidney disease secondary to multiple myeloma stage IV and chronic interstitial nephropathy -Essential hypertension -Hyperlipidemia -Severe protein calorie malnutrition due to poor oral intake. BMI 14.4 -Chronic medical debility -Multiple old rib fractures due to multiple myeloma -Acute GI bleed dropping hemoglobin down to 6.-Received total of 3 units of blood -Acute hypoxic respiratory failure-worsening overnight-intubated on the ventilator March 14-slow to respond -Hypotensive status post levo fed-s Plan: Patient currently on bronchodilators, IV meropenem, IV Solu-Medrol, IV vancomycin. IV propofol, . Status post bronchoscopy. Prognosis guarded.
--- NOTE | 2020-03-16 22:31 | PN ---
PROGRESS NOTE DATE OF SERVICE: 03/16/2020 REASON FOR FOLLOWUP: Pneumonia with MULTIPLE ANTIBIOTIC ALLERGIES. INTERVAL HISTORY: The patient is currently afebrile. The patient is status post bronchoscopy this morning. The patient tolerated the procedure. She is hemodynamically stable. FiO2 is currently stable at 40%. No diarrhea has been reported by the nursing staff. PHYSICAL EXAMINATION: Blood pressure 140/54 with a pulse of 64, temperature 98. She is 98% on 40% FiO2. General description is an elderly female lying in bed in no distress. RESPIRATORY SYSTEM: Unlabored breathing with decreased intensity of breath sounds. No wheeze. HEART: S1, S2. Regular rate and rhythm. ABDOMEN: Soft. No tenderness. LABS: Hemoglobin 9.6, white count 9.5, BUN of 43, creatinine is 1.58. DIAGNOSTIC IMPRESSION AND PLAN: Patient with acute respiratory failure which is multifactorial in this patient who did have a component of pneumonia, status post bronchoscopy. Cultures will be followed and antibiotic adjusted further. Currently on vancomycin and meropenem because of her allergies. Continue with supportive care. MMODL / IJN: [id number] /
[2020-03-17 00:15] LABS: Glucose,Whole Blood 80 mg/dL (75-99)
[2020-03-17] MEDS: methylPREDNISolone SOD SUCCI 125 MG/2 ML VIAL IV SCH ×5 (00:15→23:58)
[2020-03-17] MEDS: INSULIN ASPART (NovoLOG) 100 UNIT/ML VIAL SQ SCH ×5 (00:16→23:55)
[2020-03-17] MEDS: IPRATROPIUM-ALBUTEROL 3 ML NEB INHALATION SCH ×6 (00:19→20:11)
[2020-03-17 04:31] LABS: Anisocytosis Slight; HCT 30.5 % (34.0-46.0); Hypochromasia Slight; MCH 29.5 pg (25.0-35.0); MCHC 32.8 g/dL (31.0-37.0); MCV 89.9 fL (80.0-100.0); Mean Platelet Volume 9.8; Poikilocytosis Slight; RBC 3.39 m/uL (3.80-5.40); RDW 17.6 % (11.5-15.5); WBC 11.3 k/uL (3.8-10.6)
[2020-03-17 04:45] LABS: Calcium 6.9 mg/dL (8.4-10.2); Potassium 4.2 mmol/L (3.5-5.1)
[2020-03-17 04:51] LABS: Vancomycin,Random 23.4 ug/mL
[2020-03-17 05:04] LABS: Platelet Count 46 k/uL (150-450)
[2020-03-17 05:21] LABS: ABG Base Excess 3.8 mmol/L; ABG HCO3 27 mmol/L (21-25); ABG Oxygen Saturation 98.7 % (94-97); ABG PCO2 37 mmHg (35-45); ABG PH 7.48 (7.35-7.45); ABG PO2 102 mmHg (83-108); ABG TCO2 29 mmol/L (19-24); Allen Test Performed? Yes
[2020-03-17 05:30] LABS: Glucose,Whole Blood 128 mg/dL (75-99)
[2020-03-17] MEDS: HYDROmorphone 1 MG/ML 1 ML SYRINGE IVP PRN ×2 (08:08→16:46)
[2020-03-17] MEDS: PANTOPRAZOLE 40 MG/10 ML VIAL IVP SCH ×2 (08:13→20:09)
[2020-03-17] MEDS: CHLORHEXIDINE GLUCONATE 15 ML CUP MUCOUS MEM SCH ×2 (08:13→20:10)
[2020-03-17] MEDS: MEROPENEM 1 GM in SODIUM CHLORIDE 0.9% 100 ML IVPB SCH ×2 (08:13→20:09)
[2020-03-17] MEDS: FUROSEMIDE 10 MG/ML 4 ML VIAL IV SCH ×2 (08:14→20:09)
--- NOTE | 2020-03-17 08:47 | XR ---
EXAMINATION TYPE: XR chest 1V portable DATE OF EXAM: 03/17/2020 Comparison: 03/16/2020 Clinical History: 69-year-old female Tube placement Findings: ET tube is satisfactory. NG tube courses below the diaphragm, now satisfactory. Heart normal size. Hy perinflation. Interstitial densities bilaterally persist. Right upper lobe opacity with underlying ca vitary change redemonstrated. Increasing opacity at the left lung base. IMPRESSION: 1. COPD with continued right upper lobe consolidation and associated cavitary changes. 2. Slight increasing opacity at the left base, possible small effusion with adjacent atelectasis and/ or consolidation. 3. Redemonstrated multiple sclerotic subacute to chronic rib fracture deformities.
--- NOTE | 2020-03-17 11:09 | P.PN ---
Subjective Progress Note Date: 03/17/20 Principal diagnosis: Acute hypoxemic respiratory failure. 69-year-old female admitted on March 08. Her initial diagnosis was atrial fibrillation with RVR, black stools, and pneumonia. She was initially admitted to the stepdown unit, and came to the intensive care unit on March 11. Because of worsening respiratory status and hypoxemia, she was intubated on 03/14/2020. Yesterday, we did bronchoscopy, focusing on the right upper lobe. A BAL was performed at the bedside. Current results are pending. She remains on the mechanical ventilator. In addition, the patient had the EGD done on March 16. It was negative for acute bleeding or any significant pathology. Her current ventilator settings are the volume assist control mode, rate 24, tidal volume 350, FiO2 40%, and PEEP of 8. Her arterial blood gases show a PaO2 of 102, PaCO2 37, and a pH is 7.48. In addition, the patient is receiving normal saline at KVO, propofol at 60 g per kilogram per minute, norepinephrine, which is been weaned off, and vital high protein at a rate of 21 mL an hour which is goal. Today, we will attempt a daily interruption of sedation and a spontaneous breathing trial, with a PSV of 8 and CPAP of 5. Objective - Vital Signs Vital signs: Vital Signs Temp 98.9 F 03/17/20 04:00 Pulse 80 03/17/20 10:55 Resp 24 03/17/20 07:00 BP 102/49 03/15/20 15:54 Pulse Ox 97 03/17/20 07:00 Intake & Output 03/16/20 03/17/20 03/17/20 18:59 06:59 18:59 Intake Total 368.699 667.654 111.098 Output Total 1585 1515 55 Balance -1216.301 -847.346 56.098 Weight 48.9 kg Intake: IV 200 110 10 Dextrose 5% in Water 1, 100 000 ml @ 50 mls/hr IV . Q23H [facility] with Sodium Bicarb (1 Meq/ml) 150 ml Rx#:[id number] KVO 110 10 Meropenem 1 gm In Sodium 100 Chloride 0.9% 100 ml @ 33 .3 mls/hr IVPB Q12HR [facility] Rx#:[id number] Intake, IV Titration 168.699 215.654 80.098 Amount propofoL 1,000 mg In 168.699 215.654 80.098 Empty Bag 1 bag @ Titrate IV .Q0M [facility] Rx#: [id number] Tube Feeding 252 21 Other 90 Output: Urine 1585 1515 55 Other: Voiding Method Indwelling Catheter Indwelling Catheter ABP, PAP, CO, CI - Last Documented Arterial Blood Pressure 128/60 - Exam No acute distress, patient's sedated, with an orally placed endotracheal tube, and nasogastric tube.. HEENT examination is grossly unremarkable. Endotracheal tube and nasogastric tube noted. Neck supple. Full range of motion. No adenopathy thyromegaly or neck vein distention. Cardiovascular examination reveals regular rhythm rate. S1-S2 normal. No S3 or S4. No discernible murmur noted. Heart sounds are distant. Lungs reveal coarse bilateral expiratory rhonchi. Bibasilar crackles noted. Breath sounds equal bilaterally. Breath sounds are diminished throughout. Abdomen soft bowel sounds are heard. No masses or tenderness. Extremities are intact. No cyanosis clubbing or edema. Skin is without rash or lesion. Neurologic examination cannot be adequately assessed as the patient's currently sedated on propofol. - Labs CBC & Chem 7: 03/17/20 04:10 03/17/20 04:10 Labs: Abnormal Lab Results - Last 24 Hours (Table) 03/16/20 03/16/20 03/17/20 Range/Units 13:02 17:40 04:10 WBC (3.8-10.6) k/uL RBC (3.80-5.40) m/uL Hgb (11.4-16.0) gm/dL Hct (34.0-46.0) % RDW (11.5-15.5) % Plt Count (150-450) k/uL ABG pH (7.35-7.45) ABG HCO3 (21-25) mmol/L ABG Total CO2 (19-24) mmol/L ABG O2 Saturation (94-97) % Chloride 109 H (98-107) mmol/L BUN 50 H (7-17) mg/dL Creatinine 1.88 H (0.52-1.04) mg/dL Glucose 121 H (74-99) mg/dL POC Glucose (mg/dL) 109 H 112 H (75-99) mg/dL Calcium 6.9 L (8.4-10.2) mg/dL 03/17/20 03/17/20 03/17/20 Range/Units 04:10 05:15 05:29 WBC 11.3 H (3.8-10.6) k/uL RBC 3.39 L (3.80-5.40) m/uL Hgb 10.0 L (11.4-16.0) gm/dL Hct 30.5 L (34.0-46.0) % RDW 17.6 H (11.5-15.5) % Plt Count 46 L (150-450) k/uL ABG pH 7.48 H (7.35-7.45) ABG HCO3 27 H (21-25) mmol/L ABG Total CO2 29 H (19-24) mmol/L ABG O2 Saturation 98.7 H (94-97) % Chloride (98-107) mmol/L BUN (7-17) mg/dL Creatinine (0.52-1.04) mg/dL Glucose (74-99) mg/dL POC Glucose (mg/dL) 128 H (75-99) mg/dL Calcium (8.4-10.2) mg/dL Microbiology - Last 24 Hours (Table) 03/16/20 09:30 Gram Stain - Preliminary Bronchial Washings - Right Bronchial Washings Culture - Preliminary 03/15/20 21:23 Gram Stain - Preliminary Sputum Sputum Culture - Preliminary Nicolle albicans 03/16/20 09:30 Fungal Culture - Preliminary Bronchial Brushings - Right 03/16/20 09:30 Acid Fast Bacilli Culture - Preliminary Bronchial Washings - Right Assessment and Plan Assessment: Acute hypoxemic respiratory failure, secondary to community acquired pneumonia, requiring intubation and mechanical ventilation on 03/14/2020. Status post bronchoscopy and BAL, right upper lobe, 03/16/2020. Acute diastolic congestive heart failure. Multiple myeloma by history. History of acute kidney injury. Chronic obstructive pulmonary disease. Stage III chronic kidney disease. Paroxysmal atrial fibrillation. History of cerebrovascular accident. History of essential hypertension. Hyperlipidemia. Acute on chronic anemia. Plan: Plan dated 03/17/2020. Today, we will attempt a daily interruption of sedation, and a spontaneous ni athing trial, on a pressure support of 8 cm water and a CPAP of 5 cm water. The patient has been weaned off norepinephrine. She remains on enteral nutrition at goal. Arterial blood gases are very good with a pO2 of 102, a PaCO2 of 37, and a pH of 7.48. A bronchoscopy and BAL was performed yesterday at the bedside. We focused on the right upper lobe. Finally, the patient had been EGD done yes terday. There is no active bleeding or any significant pathology noted. Time with Patient: Greater than 30
[2020-03-17 12:17] LABS: Glucose,Whole Blood 122 mg/dL (75-99)
[2020-03-17] MEDS: CALCIUM CARB-VIT D 500 MG-5 MCG TAB PO SCH (12:39)
[2020-03-17] MEDS: METOPROLOL TARTRATE 25 MG TAB PO SCH ×2 (12:40→20:09)
[2020-03-17] MEDS: SODIUM BICARBONATE TAB 650 MG TAB PO SCH ×2 (12:41→20:09)
[2020-03-17] MEDS: SERTRALINE 100 MG TAB PO SCH (12:41)
--- NOTE | 2020-03-17 13:52 | P.PN ---
Subjective Progress Note Date: 03/17/20 Principal diagnosis: PNA, multiple myeloma Sedated and mechanically ventilated Objective - Vital Signs Vital signs: Vital Signs Temp 98.5 F 03/17/20 12:00 Pulse 76 03/17/20 12:00 Resp 24 03/17/20 12:00 BP 102/49 03/15/20 15:54 Pulse Ox 98 03/17/20 12:00 Intake & Output 03/16/20 03/17/20 03/17/20 18:59 06:59 18:59 Intake Total 368.699 667.654 471.304 Output Total 1585 1515 520 Balance -1216.301 -847.346 -48.696 Weight 48.9 kg Intake: IV 200 110 160 Dextrose 5% in Water 1, 100 000 ml @ 50 mls/hr IV . Q23H [facility] with Sodium Bicarb (1 Meq/ml) 150 ml Rx#:[id number] KVO 110 60 Meropenem 1 gm In Sodium 100 100 Chloride 0.9% 100 ml @ 33 .3 mls/hr IVPB Q12HR [facility] Rx#:[id number] Intake, IV Titration 168.699 215.654 104.304 Amount propofoL 1,000 mg In 168.699 215.654 104.304 Empty Bag 1 bag @ Titrate IV .Q0M [facility] Rx#: [id number] Tube Feeding 252 147 Other 90 60 Output: Urine 1585 1515 520 Other: Voiding Method Indwelling Catheter Indwelling Catheter Indwelling Catheter ABP, PAP, CO, CI - Last Documented Arterial Blood Pressure 115/53 - Constitutional General appearance: Present: average body habitus - Respiratory Respiratory: bilateral: CTA (on vent) - Cardiovascular Heart sounds: normal: S1, S2 - Gastrointestinal General gastrointestinal: Present: normal bowel sounds - Neurologic Neurologic: Absent: CNII-XII intact, focal deficits - Psychiatric Psychiatric: Absent: A&O x's 3, appropriate affect, intact judgment & insight - Labs CBC & Chem 7: 03/17/20 04:10 03/17/20 04:10 Labs: Abnormal Lab Results - Last 24 Hours (Table) 03/16/20 03/17/20 03/17/20 Range/Units 17:40 04:10 04:10 WBC 11.3 H (3.8-10.6) k/uL RBC 3.39 L (3.80-5.40) m/uL Hgb 10.0 L (11.4-16.0) gm/dL Hct 30.5 L (34.0-46.0) % RDW 17.6 H (11.5-15.5) % Plt Count 46 L (150-450) k/uL ABG pH (7.35-7.45) ABG HCO3 (21-25) mmol/L ABG Total CO2 (19-24) mmol/L ABG O2 Saturation (94-97) % Chloride 109 H (98-107) mmol/L BUN 50 H (7-17) mg/dL Creatinine 1.88 H (0.52-1.04) mg/dL Glucose 121 H (74-99) mg/dL POC Glucose (mg/dL) 112 H (75-99) mg/dL Calcium 6.9 L (8.4-10.2) mg/dL 03/17/20 03/17/20 03/17/20 Range/Units 05:15 05:29 12:16 WBC (3.8-10.6) k/uL RBC (3.80-5.40) m/uL Hgb (11.4-16.0) gm/dL Hct (34.0-46.0) % RDW (11.5-15.5) % Plt Count (150-450) k/uL ABG pH 7.48 H (7.35-7.45) ABG HCO3 27 H (21-25) mmol/L ABG Total CO2 29 H (19-24) mmol/L ABG O2 Saturation 98.7 H (94-97) % Chloride (98-107) mmol/L BUN (7-17) mg/dL Creatinine (0.52-1.04) mg/dL Glucose (74-99) mg/dL POC Glucose (mg/dL) 128 H 122 H (75-99) mg/dL Calcium (8.4-10.2) mg/dL Microbiology - Last 24 Hours (Table) 03/16/20 09:30 Gram Stain - Preliminary Bronchial Washings - Right Bronchial Washings Culture - Preliminary 03/15/20 21:23 Gram Stain - Preliminary Sputum Sputum Culture - Preliminary Nicolle albicans 03/16/20 09:30 Fungal Culture - Preliminary Bronchial Brushings - Right 03/16/20 09:30 Acid Fast Bacilli Culture - Preliminary Bronchial Washings - Right Assessment and Plan (1) [place] [employer] myeloma Narrative/Plan: Pt myeloma treatment has been on hold. Her m-spike is 0.19g/dl, stable. Cont to hold treatment Current Visit: No Status: Chronic Priority: Low Code(s): C90.00 - MULTIPLE MYELOMA NOT HAVING ACHIEVED REMISSION SNOMED Code(s): 200212421 (2) Bicytopenia Narrative/Plan: Not requiring transfusion at this time Please hold anticoagulation for plt <50,000, Use SCDs Transfuse for Hgb<7, Hgb 10 today Current Visit: Yes Status: Chronic Priority: Medium Code(s): D75.89 - OTHER SPECIFIED DISEASES OF BLOOD AND BLOOD-FORMING ORGANS SNOMED Code(s): 69653363 Plan: S/P bronch with washings, pending path S/P EGD with biopsy, pending path Critical Care mgmt
--- NOTE | 2020-03-17 14:24 | P.PN ---
Subjective Progress Note Date: 03/17/20 Principal diagnosis: Anemia and melena Patient seen and examined lying in bed in the ICU. Patient is sedated and on mechanical ventilation. She is status post EGD yesterday with findings of mild gastritis, no active bleeding or old blood noted to account for anemia. The patient has had no further reported black tarry stools or melena. She has an OG tube with tube feeding tolerating well. Hemoglobin stable at 10.0. Objective - Vital Signs Vital signs: Vital Signs Temp 98.9 F 03/17/20 04:00 Pulse 88 03/17/20 08:03 Resp 24 03/17/20 07:00 BP 102/49 03/15/20 15:54 Pulse Ox 97 03/17/20 07:00 Intake & Output 03/16/20 03/17/20 03/17/20 18:59 06:59 18:59 Intake Total 368.699 667.654 111.098 Output Total 1585 1515 55 Balance -1216.301 -847.346 56.098 Weight 48.9 kg Intake: IV 200 110 10 Dextrose 5% in Water 1, 100 000 ml @ 50 mls/hr IV . Q23H [facility] with Sodium Bicarb (1 Meq/ml) 150 ml Rx#:[id number] KVO 110 10 Meropenem 1 gm In Sodium 100 Chloride 0.9% 100 ml @ 33 .3 mls/hr IVPB Q12HR [facility] Rx#:[id number] Intake, IV Titration 168.699 215.654 80.098 Amount propofoL 1,000 mg In 168.699 215.654 80.098 Empty Bag 1 bag @ Titrate IV .Q0M [facility] Rx#: [id number] Tube Feeding 252 21 Other 90 Output: Urine 1585 1515 55 Other: Voiding Method Indwelling Catheter Indwelling Catheter ABP, PAP, CO, CI - Last Documented Arterial Blood Pressure 128/60 - Exam General appearance: The patient is sedated on mechanical ventilation HET: Head is normocephalic and atraumatic. Neck: Supple. Abdomen: Soft, nontender, nondistended with bowel sounds. Extremities: Normal skin color and turgor. No pedal edema. Neurological: Sedated and ventilated - Labs CBC & Chem 7: 03/17/20 04:10 03/17/20 04:10 Labs: Abnormal Lab Results - Last 24 Hours (Table) 03/16/20 03/16/20 03/17/20 Range/Units 13:02 17:40 04:10 WBC (3.8-10.6) k/uL RBC (3.80-5.40) m/uL Hgb (11.4-16.0) gm/dL Hct (34.0-46.0) % RDW (11.5-15.5) % Plt Count (150-450) k/uL ABG pH (7.35-7.45) ABG HCO3 (21-25) mmol/L ABG Total CO2 (19-24) mmol/L ABG O2 Saturation (94-97) % Chloride 109 H (98-107) mmol/L BUN 50 H (7-17) mg/dL Creatinine 1.88 H (0.52-1.04) mg/dL Glucose 121 H (74-99) mg/dL POC Glucose (mg/dL) 109 H 112 H (75-99) mg/dL Calcium 6.9 L (8.4-10.2) mg/dL 03/17/20 03/17/20 03/17/20 Range/Units 04:10 05:15 05:29 WBC 11.3 H (3.8-10.6) k/uL RBC 3.39 L (3.80-5.40) m/uL Hgb 10.0 L (11.4-16.0) gm/dL Hct 30.5 L (34.0-46.0) % RDW 17.6 H (11.5-15.5) % Plt Count 46 L (150-450) k/uL ABG pH 7.48 H (7.35-7.45) ABG HCO3 27 H (21-25) mmol/L ABG Total CO2 29 H (19-24) mmol/L ABG O2 Saturation 98.7 H (94-97) % Chloride (98-107) mmol/L BUN (7-17) mg/dL Creatinine (0.52-1.04) mg/dL Glucose (74-99) mg/dL POC Glucose (mg/dL) 128 H (75-99) mg/dL Calcium (8.4-10.2) mg/dL Microbiology - Last 24 Hours (Table) 03/16/20 09:30 Gram Stain - Preliminary Bronchial Washings - Right Bronchial Washings Culture - Preliminary 03/15/20 21:23 Gram Stain - Preliminary Sputum Sputum Culture - Preliminary Nicolle albicans 03/16/20 09:30 Fungal Culture - Preliminary Bronchial Brushings - Right 03/16/20 09:30 Acid Fast Bacilli Culture - Preliminary Bronchial Washings - Right Assessment and Plan (1) Anemia Narrative/Plan: This is a patient with severe anemia with drop in hemoglobin from 8.3-6.3 in the last 3 days duration, accompanied by black tarry stools for 1 day duration consistent with upper gastrointestinal bleed. The patient had respiratory distress and was eventually intubated and sedated. She underwent a bronchoscopy yesterday followed by upper endoscopy which showed mild gastritis with no active bleeding or old blood to account for anemia. Current Visit: Yes Status: Acute Code(s): D64.9 - ANEMIA, UNSPECIFIED SNOMED Code(s): 556286633 (2) Pneumonia Narrative/Plan: Patient having shortness of breath diagnosed with community-acquired pneumonia on broad-spectrum antibiotics. Dr. Montalvo is following patient closely. The patient was scheduled for bronchoscopy, that has been canceled as patient was having worsening respiratory distress and transferred to the ICU. Current Visit: Yes Status: Acute Code(s): J18.9 - PNEUMONIA, UNSPECIFIED ORGANISM SNOMED Code(s): 754356142 (3) Chronic kidney disease Current Visit: Yes Status: Chronic Code(s): N18.9 - CHRONIC KIDNEY DISEASE, UNSPECIFIED SNOMED Code(s): 359880454 (4) Acute exacerbation of chronic obstructive airways disease Current Visit: No Status: Acute Code(s): J44.1 - CHRONIC OBSTRUCTIVE PULMONARY DISEASE W (ACUTE) EXACERBATION SNOMED Code(s): 393573897 (5) Atrial fibrillation with RVR Current Visit: No Status: Acute Code(s): I48.91 - UNSPECIFIED ATRIAL FIBRILLATION SNOMED Code(s): 065152140466446 (6) Multiple myeloma not having achieved remission Narrative/Plan: Oncology following patient Current Visit: No Status: Chronic Priority: Medium Code(s): C90.00 - MULTIPLE MYELOMA NOT HAVING ACHIEVED REMISSION SNOMED Code(s): 251627727 Plan: 1. Continue symptomatic and supportive care 2. Continue Protonix 40 mg twice daily 3. CBC daily, transfuse if hemoglobin less than 7 4. We'll consider rescheduling upper endoscopy if respiratory status improves and cleared by pulmonology 5. Oncology on consult, appreciate their recommendations Thank you for this consultation we will and standby at this time. Do not h esitate to call us back if any further episodes of GI bleed or significant drop in hemoglobin. Dr. Rodriguez I agree with the dictator's note, documented as a scribe by Kristyn Gómez.
[2020-03-17 17:26] LABS: Glucose,Whole Blood 114 mg/dL (75-99)
--- NOTE | 2020-03-17 19:50 | P.PN ---
Progress Note - Text Progress Note Date: 03/17/20 Presenting complaint: Intubated Interval history: This is a very pleasant 69-year-old patient of Dr. Villalobos. Chronic stable medical conditions include paroxysmal atrial flutter fibrillation, , CHF with an EF of 50-55%, tricuspid and mitral regurgitation, secondary pulmonary hypertension, chronic kidney disease stage IV, hypertension, hyperlipidemia,. Patient also being treated for multiple myeloma. on REVLIMID Patient presented with shortness of breath confusion cough congestion. Admitted with right upper lobe pneumonia, acute delirium. Started on IV aztreonam and azithromycin. Developed black tarry stools. Dropped hemoglobin. 1 unit of blood given. Patient desaturated. Moved to the ICU on March 11. Intubated March 14-placed on IV levo fed propofol antibiotics changed to IV meropenem. bronchoscopy done by Dr. Hart[March 16]-thick philomena, secretions obtained [id number]. FiO2 40 and a PEEP of 8. telemetry-sinus rhythm. Drips included propofol,. sedated Review of systems: Patient intubated Active Medications Acetaminophen (Acetaminophen Tab 325 Mg Tab) 650 mg PO Q4HR PRN PRN Reason: Fever and/ or Pain Last Admin: 03/11/20 22:00 Dose: 650 mg Documented by: Albuterol/Ipratropium (Ipratropium-Albuterol 3 Ml Neb) 3 ml INHALATION RT-Q4H [facility] Last Admin: 03/17/20 15:43 Dose: 3 ml Documented by: Calcitriol (Calcitriol 0.25 Mcg Cap) 0.25 mcg PO PC-LUNCH [facility] Last Admin: 03/17/20 12:41 Dose: 0.25 mcg Documented by: Calcium Carbonate (Calcium Carb-Vit D 500mg-200un 1 Each Tab) 2 each PO DAILY@1200 [facility] Last Admin: 03/17/20 12:39 Dose: 2 each Documented by: Chlorhexidine Gluconate (Chlorhexidine Gluconate 15 Ml Cup) 15 ml MUCOUS MEM BID [facility] Last Admin: 03/17/20 08:13 Dose: 15 ml Documented by: Furosemide (Furosemide 10 Mg/Ml 4 Ml Vial) 40 mg IV Q12HR [facility] Last Admin: 03/17/20 08:14 Dose: 40 mg Documented by: Hydromorphone HCl (Hydromorphone 1 Mg/Ml 1 Ml Syringe) 1 mg IVP Q2HR PRN PRN Reason: Pain Last Admin: 03/17/20 16:46 Dose: 1 mg Documented by: Meropenem 1 gm/ Sodium (Chloride) 100 mls @ 33.3 mls/hr IVPB Q12HR [facility]; Protocol Last Admin: 03/17/20 08:13 Dose: 33.3 mls/hr Documented by: Propofol 1,000 mg/ IV Solution 100 mls @ 0 mls/hr IV .Q0M [facility]; Protocol Last Admin: 03/17/20 18:58 Dose: 30 mcg/kg/min, 8.802 mls/hr Documented by: Vancomycin HCl 750 mg/ Sodium (Chloride) 250 mls @ 125 mls/hr IVPB ONCE ONE Stop: 03/17/20 22:59 Insulin Aspart (Insulin Aspart (Novolog) 100 Unit/Ml Vial) 0 unit SQ Q6H [facility]; Protocol Last Admin: 03/17/20 17:28 Dose: Not Given Documented by: Latanoprost (Latanoprost 0.005% Ophth Drops 2.5 Ml Btl) 1 drops BOTH EYES HS [facility] Last Admin: 03/16/20 19:40 Dose: 1 drops Documented by: Methylprednisolone Sodium Succinate (Methylprednisolone Sod Succi 125 Mg/2 Ml Vial) 60 mg IV Q6HR [facility] Last Admin: 03/17/20 17:29 Dose: 60 mg Documented by: Metoprolol Tartrate (Metoprolol Tartrate 25 Mg Tab) 25 mg PO BID@1200,2100 [facility] Last Admin: 03/17/20 12:40 Dose: 25 mg Documented by: Miscellaneous Information (Pneumonia Protocol Utilized [address] [facility]) 1 each PO ONCE PRN PRN Reason: Per Protocol Miscellaneous Information (Vancomycin Iv Per Pharmacy [address] [facility]) 1 each MISCELLANE DIRECTED PRN; Protocol PRN Reason: Per Protocol Pantoprazole Sodium (Pantoprazole 40 Mg/10 Ml Vial) 40 mg IVP BID [facility] Last Admin: 03/17/20 08:13 Dose: 40 mg Documented by: Sertraline HCl (Sertraline 100 Mg Tab) 200 mg PO PC-LUNCH [facility] Last Admin: 03/17/20 12:41 Dose: 200 mg Documented by: Sodium Bicarbonate (Sodium Bicarbonate Tab 650 Mg Tab) 1,300 mg PO DAILY@1200 [facility] Last Admin: 03/17/20 12:41 Dose: 1,300 mg Documented by: Sodium Bicarbonate (Sodium Bicarbonate Tab 650 Mg Tab) 650 mg PO HS [facility] Last Admin: 03/16/20 19:40 Dose: 650 mg Documented by: Physical examination: VITAL SIGNS:98.5, 85, 24, 127/55, 98% on the ventilator GENERAL: Laying in bed, intubated EYES: Pupils equal. Conjunctiva pale HEENT: External appearance of nose and ears normal, oral G-tube NECK: JVD not raised; masses not palpable. HEART: First and second heart sounds are normal; no edema. LUNGS: Respiratory rate increased, decreased breath sounds ABDOMEN: Soft, nontender, liver spleen not palpable, no masses palpable. PSYCH: Sedated MUSCULOSKELETAL: Diffuse wasting of muscles Investigations, reviewed in the clinical context: Generally : White count 9.3 hemoglobin 10 platelets 46 potassium 4.2 BUN 50 creatinine 1.88 March 15: White count 7.4 hemoglobin 5.9 platelets 50 BUN 38 creatinine 1.5 for March 14: White count 12.3 hemoglobin 7.4 potassium 4.8 bun 39 creatinine 1.43. ABG show pH of 7.15 March 13: White count 15.4 hemoglobin 8.7 platelets 91 bun 36 creatinine 1.48 March 12: White count 23.4 hemoglobin 9.2 platelets 113. Check stat x-ray film-right upper lobe dense infiltrate March 11: White count 9.2 hemoglobin 6 platelets 86potassium 5 creatinine 1.56 pro-calcitonin 1.34 Pro-calcitonin 1.84 White count 14 hemoglobin 8.1 platelets 134 potassium 4.2 BUN 47 creatinine 2.64 Lactic acid 4.9 Coronavirus P/Cr-not detected VQ scan-low probability for PE EKG tracing personally reviewed by me-normal sinus rhythm some ST segment changes Chest [id number] infiltrate throughout the right upper lobe and the superior segment of the right lower lobe Assessment: -Right upper lobe pneumonia, suspect gram-negative organism in an immunosuppressed patient, , POA,-slow to respond -Acute GI bleed patient having dark stools. -Paroxysmal atrial flutter and fibrillation-with rapid ventricular rate then went back into sinus rhythm -Anemia multifactorial including that of chronic disease including multiple myeloma -Acute COPD exacerbation in a ex-smoker, -Chronic congestive heart failure from systolic and diastolic dysfunction EF 50- 55% -Moderate tricuspid and severe mitral regurgitation, nontraumatic -Severe secondary pulmonary hypertension secondary to CHF and COPD -Multiple myeloma on chemotherapy -Chronic kidney disease secondary to multiple myeloma stage IV and chronic interstitial nephropathy -Essential hypertension -Hyperlipidemia -Severe protein calorie malnutrition due to poor oral intake. BMI 14.4 -Chronic medical debility -Multiple old rib fractures due to multiple myeloma -Acute GI bleed dropping hemoglobin down to 6.-Received total of 3 units of blood -Acute hypoxic respiratory failure-worsening overnight-intubated on the ventilator March 14-slow to respond -Hypotensive status post levo fed-s -Acute kidney injury possibly combination of ATN and prerenal Plan: Patient currently on bronchodilators, IV meropenem, IV Solu-Medrol, IV vancomycin. IV propofol, we'll discuss with Dr. Sánchez from ID regarding patient's creatinine going up patient on vancomycin.. bronchoscopy, cultures pending
[2020-03-17] MEDS: LATANOPROST 0.005% OPHTH DROPS 2.5 ML BTL BOTH EYES SCH (20:08)
[2020-03-17] MEDS ORDERED: VANCOMYCIN 750 MG in SODIUM CHLORIDE 0.9% 250 ML IVPB ONE (21:00)
--- NOTE | 2020-03-17 21:56 | PN ---
PROGRESS NOTE DATE OF SERVICE: 03/17/2020 REASON FOR FOLLOWUP: Pneumonia with MULTIPLE ANTIBIOTIC ALLERGIES. INTERVAL HISTORY: The patient is currently afebrile. The patient is hemodynamically stable. The patient remains intubated on the vent. FiO2 is currently stable. No significant purulent secretions were noted through the ET. Did have 2 episodes of loose stool today. PHYSICAL EXAMINATION: Blood pressure 109/46, pulse of 65, temperature 97.7. She is 99% on 40% FiO2. General description is an elderly female lying in bed in no distress. RESPIRATORY SYSTEM: Unlabored breathing with decreased breath sounds at the base. No wheeze. HEART: S1, S2. Regular rate and rhythm. ABDOMEN: Soft. No tenderness. LABS: Hemoglobin is 10, white count 11.3. BUN of 50, creatinine is 1.88. Vancomycin random is 23.4. DIAGNOSTIC IMPRESSION AND PLAN: Patient with acute respiratory failure which is multifactorial in this patient who did have a component of pneumonia, possibly Gram-negative. MULTIPLE ANTIBIOTIC ALLERGIES. To continue meropenem. With no MRSA found, vancomycin will be discontinued and clinical course will be monitored closely. MMODL / IJN: [id number] /
[2020-03-17 23:56] LABS: Glucose,Whole Blood 125 mg/dL (75-99)
[2020-03-18] MEDS: IPRATROPIUM-ALBUTEROL 3 ML NEB INHALATION SCH ×6 (00:15→20:04)
[2020-03-18] MEDS: HYDROmorphone 1 MG/ML 1 ML SYRINGE IVP PRN ×4 (03:07→23:48)
[2020-03-18 04:46] LABS: Glucose,Whole Blood 119 mg/dL (75-99)
[2020-03-18] MEDS: INSULIN ASPART (NovoLOG) 100 UNIT/ML VIAL SQ SCH ×4 (04:46→23:47)
[2020-03-18 04:54] LABS: Anisocytosis Slight; HCT 29.9 % (34.0-46.0); HGB 10.2 gm/dL (11.4-16.0); Hypochromasia Slight; MCH 30.5 pg (25.0-35.0); MCHC 34.1 g/dL (31.0-37.0); MCV 89.5 fL (80.0-100.0); Mean Platelet Volume 10.6; RBC 3.34 m/uL (3.80-5.40); RDW 17.2 % (11.5-15.5); WBC 9.1 k/uL (3.8-10.6)
[2020-03-18 05:00] LABS: Platelet Count 34 k/uL (150-450)
[2020-03-18 05:03] LABS: ABG Base Excess 5.3 mmol/L; ABG HCO3 29 mmol/L (21-25); ABG Oxygen Saturation 99.6 % (94-97); ABG PCO2 40 mmHg (35-45); ABG PH 7.47 (7.35-7.45); ABG PO2 138 mmHg (83-108); ABG TCO2 30 mmol/L (19-24); Allen Test Performed? Yes
[2020-03-18] MEDS: methylPREDNISolone SOD SUCCI 125 MG/2 ML VIAL IV SCH (05:03)
[2020-03-18 05:16] LABS: Calcium 6.8 mg/dL (8.4-10.2); Potassium 3.7 mmol/L (3.5-5.1)
[2020-03-18] MEDS ORDERED: POTASSIUM BICARBONATE/CIT AC 20 MEQ TABLET.EFF NG-TUBE SCH (07:00)
--- NOTE | 2020-03-18 07:32 | XR ---
EXAMINATION TYPE: XR chest 1V portable DATE OF EXAM: 03/18/2020 Comparison: 03/17/2020 Clinical History: 69-year-old female Tube placement Findings: ET and NG tubes are satisfactory. Hyperinflation. Multiple sclerotic bilateral rib fractures are poor ly. Heart normal size. Continued right upper lobe consolidation with underlying cavitary change, not significantly changed. Some patchy density within both lung bases are also relatively similar. Impression: 1. COPD with continued right upper lobe consolidation and underlying cavitary change. 2. Mild patchy basilar opacities are also similar. 3. Multiple bilateral sclerotic rib fracture deformities redemonstrated.
[2020-03-18] MEDS: PANTOPRAZOLE 40 MG/10 ML VIAL IVP SCH ×2 (09:31→20:20)
[2020-03-18] MEDS: CHLORHEXIDINE GLUCONATE 15 ML CUP MUCOUS MEM SCH ×2 (09:31→20:19)
[2020-03-18] MEDS: MEROPENEM 1 GM in SODIUM CHLORIDE 0.9% 100 ML IVPB SCH ×2 (09:31→20:19)
--- NOTE | 2020-03-18 09:51 | P.PN ---
Subjective Progress Note Date: 03/18/20 Principal diagnosis: Acute hypoxemic respiratory failure. 69-year-old female admitted on March 08. Her initial diagnosis was atrial fibrillation with RVR, black stools, and pneumonia. She was initially admitted to the stepdown unit, and came to the intensive care unit on March 11. Because of worsening respiratory status and hypoxemia, she was intubated on 03/14/2020. Yesterday, we did bronchoscopy, focusing on the right upper lobe. A BAL was performed at the bedside. Current results are pending. She remains on the mechanical ventilator. In addition, the patient had the EGD done on March 16. It was negative for acute bleeding or any significant pathology. Her current ventilator settings are the volume assist control mode, rate 24, tidal volume 350, FiO2 40%, and PEEP of 8. Her arterial blood gases show a PaO2 of 102, PaCO2 37, and a pH is 7.48. In addition, the patient is receiving normal saline at KVO, propofol at 60 g per kilogram per minute, norepinephrine, which is been weaned off, and vital high protein at a rate of 21 mL an hour which is goal. Today, we will attempt a daily interruption of sedation and a spontaneous breathing trial, with a PSV of 8 and CPAP of 5. Progress note dated 03/18/2020. 69-year-old female admitted on March 08 with a diagnosis of atrial fibrillation with RVR, lactulose, and pneumonia. She was initially admitted to the stepdown unit and came to the intensive care unit on March 11. Because of worsening hy poxemic respiratory failure, the patient was intubated and mechanically ventilated on 03/14/2020, and remains on mechanical ventilator. She had an EGD done on March 16 and likewise, we did bronchoscopy and BAL, right upper lobe, on March 16. Currently, cultures are pending. She remains on the mechanical ventilator, on the volume assist control mode, rate 24, tidal volume 350, FiO2 40%, and PEEP of 8. She's getting saline at 10 mL an hour. She is also getting vital high protein at 21 mL an hour which is goal. This morning, the nurses turn the propofol off. She was previously an propofol at 30 mcg/kg/m. We placed her on pressure support of 8 cm water, and CPAP of 5 cm water, but un fortunately, we noted Jose López respirations. Hence, we placed her back on the mechanical ventilator. We will use sedation only as needed. She's not quite ready to be extubated. Her arterial blood gases today showed a pO2 of 138, a pCO2 of 40, and a pH is 7.47. This blood gases consistent with a mild metabolic alkalosis. Objective - Vital Signs Vital signs: Vital Signs Temp 97.8 F 03/18/20 08:00 Pulse 70 03/18/20 08:01 Resp 14 03/18/20 08:00 BP 108/63 03/18/20 08:00 Pulse Ox 100 03/18/20 08:00 Intake & Output 03/17/20 03/18/20 03/18/20 18:59 06:59 18:59 Intake Total 775.542 631 104 Output Total 1245 1275 65 Balance -469.458 -644 39 Weight 46.4 kg Intake: IV 220 268 32 KVO 120 120 20 Meropenem 1 gm In Sodium 100 100 Chloride 0.9% 100 ml @ 33 .3 mls/hr IVPB Q12HR [facility] Rx#:[id number] pressure bag 48 12 Intake, IV Titration 171.542 Amount propofoL 1,000 mg In 171.542 Empty Bag 1 bag @ Titrate IV .Q0M [facility] Rx#: [id number] Tube Feeding 294 273 42 Other 90 90 30 Output: Urine 1245 1225 65 Stool 50 Other: Voiding Method Indwelling Catheter Indwelling Catheter ABP, PAP, CO, CI - Last Documented Arterial Blood Pressure 129/60 - Exam No acute distress, patient off sedation, with an orally placed endotracheal tub e, and nasogastric tube. Patient appears a bit more awake today. HEENT examination is grossly unremarkable. Endotracheal tube and nasogastric tube noted. Neck supple. Full range of motion. No adenopathy thyromegaly or neck vein distention. Cardiovascular examination reveals regular rhythm rate. S1-S2 normal. No S3 or S4. No discernible murmur noted. Heart sounds are distant. Heart rate is 71 bpm. Lungs reveal coarse bilateral expiratory rhonchi. Bibasilar crackles noted. Breath sounds equal bilaterally. Breath sounds are diminished throughout. Abdomen soft bowel sounds are heard. No masses or tenderness. Extremities are intact. No cyanosis clubbing or edema. Skin is without rash or lesion. Neurologic examination finds the patient to have eyes open, and she appears to understand when you speak to her verbally. She obviously cannot respond. Appears to be relatively weak. - Labs CBC & Chem 7: 03/18/20 04:45 03/18/20 04:45 Labs: Abnormal Lab Results - Last 24 Hours (Table) 03/17/20 03/17/20 03/17/20 Range/Units 12:16 17:25 23:54 RBC (3.80-5.40) m/uL Hgb (11.4-16.0) gm/dL Hct (34.0-46.0) % RDW (11.5-15.5) % Plt Count (150-450) k/uL ABG pH (7.35-7.45) ABG pO2 (83-108) mmHg ABG HCO3 (21-25) mmol/L ABG Total CO2 (19-24) mmol/L ABG O2 Saturation (94-97) % Chloride (98-107) mmol/L BUN (7-17) mg/dL Creatinine (0.52-1.04) mg/dL Glucose (74-99) mg/dL POC Glucose (mg/dL) 122 H 114 H 125 H (75-99) mg/dL Calcium (8.4-10.2) mg/dL 03/18/20 03/18/20 03/18/20 Range/Units 04:44 04:45 04:45 RBC 3.34 L (3.80-5.40) m/uL Hgb 10.2 L (11.4-16.0) gm/dL Hct 29.9 L (34.0-46.0) % RDW 17.2 H (11.5-15.5) % Plt Count 34 L (150-450) k/uL ABG pH (7.35-7.45) ABG pO2 (83-108) mmHg ABG HCO3 (21-25) mmol/L ABG Total CO2 (19-24) mmol/L ABG O2 Saturation (94-97) % Chloride 108 H (98-107) mmol/L BUN 62 H (7-17) mg/dL Creatinine 1.83 H (0.52-1.04) mg/dL Glucose 110 H (74-99) mg/dL POC Glucose (mg/dL) 119 H (75-99) mg/dL Calcium 6.8 L (8.4-10.2) mg/dL 03/18/20 Range/Units 04:55 RBC (3.80-5.40) m/uL Hgb (11.4-16.0) gm/dL Hct (34.0-46.0) % RDW (11.5-15.5) % Plt Count (150-450) k/uL ABG pH 7.47 H (7.35-7.45) ABG pO2 138 H (83-108) mmHg ABG HCO3 29 H (21-25) mmol/L ABG Total CO2 30 H (19-24) mmol/L ABG O2 Saturation 99.6 H (94-97) % Chloride (98-107) mmol/L BUN (7-17) mg/dL Creatinine (0.52-1.04) mg/dL Glucose (74-99) mg/dL POC Glucose (mg/dL) (75-99) mg/dL Calcium (8.4-10.2) mg/dL Microbiology - Last 24 Hours (Table) 03/15/20 21:23 Gram Stain - Final Sputum Sputum Culture - Final Nicolle albicans 03/16/20 09:30 Acid Fast Bacilli Smear - Final Bronchial Washings - Right Acid Fast Bacilli Culture - Preliminary 03/16/20 09:30 Gram Stain - Preliminary Bronchial Washings - Right Bronchial Washings Culture - Preliminary Assessment and Plan Assessment: Acute hypoxemic respiratory failure, secondary to community acquired pneumonia, requiring intubation and mechanical ventilation on 03/14/2020. Failure to wean from mechanical ventilation. Status post bronchoscopy and BAL, right upper lobe, 03/16/2020. Status post EGD, on 03/16/2020, without any significant bleeding or active pathology. Acute diastolic congestive heart failure. Multiple myeloma by history. History of acute kidney injury. Chronic obstructive pulmonary disease. Stage III chronic kidney disease. Paroxysmal atrial fibrillation. History of cerebrovascular accident. History of essential hypertension. Hyperlipidemia. Acute on chronic anemia. Plan: Plan dated 03/18/2020. The patient was given a daily eruption of sedation and a spontaneous breathing trial today. We placed her on pressure support of 8 cm of water and CPAP of 5 cm water. Unfortunately, she had periods of crescendo/decrescendo breathing, as well as periods of apnea. Consistent with Jose-López respirations. Currently, the patient is receiving nutrition at goal, receiving vital high protein at 21 mL an hour. We'll use propofol sparingly. She remains on the pressure support of 8 and CPAP of 5. The patient will be placed back on the volume assist control mode. We will attempt another daily eruption of sedation and spontaneous breathing trial tomorrow. Cultures thus far are negative. She remains on meropenem. Time with Patient: Greater than 30
[2020-03-18 11:41] LABS: Glucose,Whole Blood 128 mg/dL (75-99)
[2020-03-18] MEDS: METOPROLOL TARTRATE 25 MG TAB PO SCH ×2 (12:33→20:20)
[2020-03-18] MEDS: CALCIUM CARB-VIT D 500 MG-5 MCG TAB PO SCH (12:33)
[2020-03-18] MEDS: SODIUM BICARBONATE TAB 650 MG TAB PO SCH ×2 (12:34→20:19)
[2020-03-18] MEDS: SERTRALINE 100 MG TAB PO SCH (12:36)
[2020-03-18] MEDS: methylPREDNISolone SOD SUCCI 40 MG/ML 1 ML VIAL IV SCH ×2 (17:00→23:47)
[2020-03-18 17:47] LABS: Glucose,Whole Blood 116 mg/dL (75-99)
--- NOTE | 2020-03-18 18:30 | P.PN ---
Progress Note - Text Progress Note Date: 03/18/20 Presenting complaint: Intubated Interval history: This is a very pleasant 69-year-old patient of Dr. Villalobos. Chronic stable medical conditions include paroxysmal atrial flutter fibrillation, , CHF with an EF of 50-55%, tricuspid and mitral regurgitation, secondary pulmonary hypertension, chronic kidney disease stage IV, hypertension, hyperlipidemia,. Patient also being treated for multiple myeloma. on REVLIMID Patient presented with shortness of breath confusion cough congestion. Admitted with right upper lobe pneumonia, acute delirium. Started on IV aztreonam and azithromycin. Developed black tarry stools. Dropped hemoglobin. 1 unit of blood given. Patient desaturated. Moved to the ICU on March 11. Intubated March 14-placed on IV levo fed propofol antibiotics changed to IV meropenem. bronchoscopy done by Dr. Hart[March 16]-thick philomena, secretions obtained [id number]. FiO2 40 and a PEEP of 5. Telemetry-sinus rhythm. Drips included propofol. 2 feeding at 31 mL an hour. Asked that secretions. Sedated. Review of systems: Patient intubated Active Medications Acetaminophen (Acetaminophen Tab 325 Mg Tab) 650 mg PO Q4HR PRN PRN Reason: Fever and/ or Pain Last Admin: 03/11/20 22:00 Dose: 650 mg Documented by: Albuterol/Ipratropium (Ipratropium-Albuterol 3 Ml Neb) 3 ml INHALATION RT-Q4H [facility] Last Admin: 03/18/20 15:21 Dose: 3 ml Documented by: Calcitriol (Calcitriol 0.25 Mcg Cap) 0.25 mcg PO PC-LUNCH [facility] Last Admin: 03/18/20 12:36 Dose: 0.25 mcg Documented by: Calcium Carbonate (Calcium Carb-Vit D 500mg-200un 1 Each Tab) 2 each PO DAILY@1200 [facility] Last Admin: 03/18/20 12:33 Dose: 2 each Documented by: Chlorhexidine Gluconate (Chlorhexidine Gluconate 15 Ml Cup) 15 ml MUCOUS MEM BID [facility] Last Admin: 03/18/20 09:31 Dose: 15 ml Documented by: Hydromorphone HCl (Hydromorphone 1 Mg/Ml 1 Ml Syringe) 1 mg IVP Q2HR PRN PRN Reason: Pain Last Admin: 03/18/20 12:37 Dose: 1 mg Documented by: Meropenem 1 gm/ Sodium (Chloride) 100 mls @ 33.3 mls/hr IVPB Q12HR [facility]; Protocol Last Admin: 03/18/20 09:31 Dose: 33.3 mls/hr Documented by: Propofol 1,000 mg/ IV Solution 100 mls @ 0 mls/hr IV .Q0M [facility]; Protocol Last Titration: 03/18/20 08:02 Dose: Infused Documented by: Insulin Aspart (Insulin Aspart (Novolog) 100 Unit/Ml Vial) 0 unit SQ Q6H [facility]; Protocol Last Admin: 03/18/20 18:07 Dose: Not Given Documented by: Latanoprost (Latanoprost 0.005% Ophth Drops 2.5 Ml Btl) 1 drops BOTH EYES [facility] Last Admin: 03/17/20 20:08 Dose: 1 drops Documented by: Methylprednisolone Sodium Succinate (Methylprednisolone Sod Succi 40 Mg/Ml 1 Ml Vial) 40 mg IV Q8HR [facility] Last Admin: 03/18/20 17:00 Dose: 40 mg Documented by: Metoprolol Tartrate (Metoprolol Tartrate 25 Mg Tab) 25 mg PO BID@1200,2100 [facility] Last Admin: 03/18/20 12:33 Dose: 25 mg Documented by: Miscellaneous Information (Pneumonia Protocol Utilized 1 Each Misc) 1 each PO ONCE PRN PRN Reason: Per Protocol Pantoprazole Sodium (Pantoprazole 40 Mg/10 Ml Vial) 40 mg IVP BID [facility] Last Admin: 03/18/20 09:31 Dose: 40 mg Documented by: Sertraline HCl (Sertraline 100 Mg Tab) 200 mg PO PC-LUNCH [facility] Last Admin: 03/18/20 12:36 Dose: 200 mg Documented by: Sodium Bicarbonate (Sodium Bicarbonate Tab 650 Mg Tab) 1,300 mg PO DAILY@1200 [facility] Last Admin: 03/18/20 12:34 Dose: 1,300 mg Documented by: Sodium Bicarbonate (Sodium Bicarbonate Tab 650 Mg Tab) 650 mg PO HS [facility] Last Admin: 03/17/20 20:09 Dose: 650 mg Documented by: Physical examination: VITAL SIGNS: 98.8, 67, 24, 139/54, 98% on the ventilator GENERAL: Laying in bed, intubated EYES: Pupils equal. Conjunctiva pale HEENT: External appearance of nose and ears normal, oral G-tube NECK: JVD not raised; masses not palpable. HEART: First and second heart sounds are normal; no edema. LUNGS: Respiratory rate increased, decreased breath sounds ABDOMEN: Soft, nontender, liver spleen not palpable, no masses palpable. PSYCH: Sedated MUSCULOSKELETAL: Diffuse wasting of muscles Investigations, reviewed in the clinical context: March 18: White count 9.1 hemoglobin 10.2 potassium 3.7 bun 62 creatinine 1.83 Chest x-ray film personally reviewed by me-infiltrate clearing March 16: White count 9.3 hemoglobin 10 platelets 46 potassium 4.2 BUN 50 creatinine 1.88 March 15: White count 7.4 hemoglobin 5.9 platelets 50 BUN 38 creatinine 1.5 for March 14: White count 12.3 hemoglobin 7.4 potassium 4.8 bun 39 creatinine 1.43. ABG show pH of 7.15 March 13: White count 15.4 hemoglobin 8.7 platelets 91 bun 36 creatinine 1.48 March 12: White count 23.4 hemoglobin 9.2 platelets 113. Check stat x-ray film-right upper lobe dense infiltrate March 11: White count 9.2 hemoglobin 6 platelets 86potassium 5 creatinine 1.56 pro-calcitonin 1.34 Pro-calcitonin 1.84 White count 14 hemoglobin 8.1 platelets 134 potassium 4.2 BUN 47 creatinine 2.64 Lactic acid 4.9 Coronavirus P/Cr-not detected VQ scan-low probability for PE EKG tracing personally reviewed by me-normal sinus rhythm some ST segment changes Chest e-lmc-pvgyuy infiltrate throughout the right upper lobe and the superior segment of the right lower lobe Icyfwjxqfanc-qpnmqgbr-Iqqoyhb albicans Sputum-Nicolle albicans Assessment: -Right upper lobe pneumonia, suspect gram-negative organism in an immunosuppressed patient, , POA,- -Paroxysmal atrial flutter and fibrillation-with rapid ventricular rate then went back into sinus rhythm -Anemia multifactorial including that of chronic disease including multiple myeloma -Acute COPD exacerbation in a ex-smoker, -Chronic congestive heart failure from systolic and diastolic dysfunction EF 50- 55% -Moderate tricuspid and severe mitral regurgitation, nontraumatic -Severe secondary pulmonary hypertension secondary to CHF and COPD -Multiple myeloma on chemotherapy -Chronic kidney disease secondary to multiple myeloma stage IV and chronic interstitial nephropathy -Essential hypertension -Hyperlipidemia -Severe protein calorie malnutrition due to poor oral intake. BMI 14.4 -Chronic medical debility -Multiple old rib fractures due to multiple myeloma -Acute GI bleed dropping hemoglobin down to 6.-Received total of 3 units of blood, AGG [place] for now. -Acute hypoxic respiratory failure-worsening overnight-intubated on the ventilat or March 14-slow to respond -Hypotensive status post levo fed- -Acute kidney injury possibly combination of ATN and prerenal Plan: Patient currently on bronchodilators, IV meropenem, IV Solu-Medrol, IV propofol,. Vancomycin discontinued. Add Diflucan
[2020-03-18] MEDS ORDERED: FLUCONAZOLE 150 MG TAB PO STA (18:31)
[2020-03-18] MEDS: LATANOPROST 0.005% OPHTH DROPS 2.5 ML BTL BOTH EYES SCH (20:20)
[2020-03-18] MEDS: DEXMEDETOMIDINE/0.9% NACL(PMX) 400 MCG in EMPTY BAG 1 BAG IV SCH (20:35)
--- NOTE | 2020-03-18 23:08 | PN ---
PROGRESS NOTE DATE OF SERVICE: 03/18/2020 REASON FOR FOLLOWUP: Pneumonia. INTERVAL HISTORY: The patient is currently afebrile. The patient seems to be more awake and alert. The patient remains intubated on the vent. Hemodynamically stable. No significant purulent secretions in the ET or any diarrhea reported by nursing staff. PHYSICAL EXAMINATION: Blood pressure 170/69 with a pulse of 78, temperature 98.5. She is 99% on 40% FiO2. General description is an elderly female intubated on the vent. RESPIRATORY SYSTEM: Unlabored breathing with decreased breath sounds at the base. No wheeze. HEART: S1, S2. Regular rate and rhythm. ABDOMEN: Soft. No tenderness. LABS: Hemoglobin is 10.2, white count 9.1, creatinine 1.83. Bronchial washing with Nicolle albicans. DIAGNOSTIC IMPRESSION AND PLAN: Patient with acute respiratory failure which is multifactorial in this patient who did have a component of pneumonia. The patient is currently covered with meropenem because of her MULTIPLE ANTIBIOTIC ALLERGIES. To continue and monitor clinical course closely. MMODL / IJN: [id number] /
[2020-03-18 23:50] LABS: Glucose,Whole Blood 123 mg/dL (75-99)
[2020-03-19] MEDS: IPRATROPIUM-ALBUTEROL 3 ML NEB INHALATION SCH ×7 (00:29→23:38)
[2020-03-19 04:22] LABS: Anisocytosis Slight; HCT 31.9 % (34.0-46.0); HGB 10.8 gm/dL (11.4-16.0); Hypochromasia Slight; MCH 30.4 pg (25.0-35.0); MCHC 33.9 g/dL (31.0-37.0); MCV 89.6 fL (80.0-100.0); Mean Platelet Volume 9.9; RBC 3.56 m/uL (3.80-5.40); RDW 17.3 % (11.5-15.5); WBC 11.5 k/uL (3.8-10.6)
[2020-03-19 04:24] LABS: Platelet Count 40 k/uL (150-450)
[2020-03-19 04:27] LABS: Calcium 6.8 mg/dL (8.4-10.2); Potassium 3.9 mmol/L (3.5-5.1)
[2020-03-19 05:09] LABS: ABG Base Excess 4.2 mmol/L; ABG HCO3 28 mmol/L (21-25); ABG Oxygen Saturation 99.7 % (94-97); ABG PCO2 36 mmHg (35-45); ABG PH 7.49 (7.35-7.45); ABG PO2 145 mmHg (83-108); ABG TCO2 29 mmol/L (19-24); Allen Test Performed? Yes
[2020-03-19 06:12] LABS: Glucose,Whole Blood 139 mg/dL (75-99)
[2020-03-19] MEDS: INSULIN ASPART (NovoLOG) 100 UNIT/ML VIAL SQ SCH ×3 (06:46→17:54)
--- NOTE | 2020-03-19 06:56 | XR ---
EXAMINATION TYPE: XR chest 1V portable DATE OF EXAM: 03/19/2020 CLINICAL HISTORY: Difficulty breathing progress study. TECHNIQUE: Single AP portable upright view of the chest is obtained. COMPARISON: Chest x-ray from one day earlier and older studies. FINDINGS: Stable endotracheal and orogastric tubes. Osseous structures remain demineralized. Multifocal sclerotic rib lesions consistent with healing or healed fractures bilaterally. Cardiac silhouette size is stable and within normal limits. Background chronic emphysematous change with persistent right upper lung consolidation. Stable small to tiny le ft pleural effusion. IMPRESSION: Chronic emphysematous change with continued right upper lung consolidation and underlying cavitary change. Stable scattered patchy right midlung opacities. No significant change from most re cent study.
[2020-03-19] MEDS: methylPREDNISolone SOD SUCCI 40 MG/ML 1 ML VIAL IV SCH ×2 (08:12→16:23)
[2020-03-19] MEDS: DEXMEDETOMIDINE/0.9% NACL(PMX) 400 MCG in EMPTY BAG 1 BAG IV SCH (08:12)
[2020-03-19] MEDS: CHLORHEXIDINE GLUCONATE 15 ML CUP MUCOUS MEM SCH ×2 (08:12→20:40)
[2020-03-19] MEDS: FLUCONAZOLE 100 MG TAB PO SCH (08:12)
[2020-03-19] MEDS: MEROPENEM 1 GM in SODIUM CHLORIDE 0.9% 100 ML IVPB SCH ×2 (08:13→20:41)
[2020-03-19] MEDS: PANTOPRAZOLE 40 MG/10 ML VIAL IVP SCH ×2 (08:13→20:42)
[2020-03-19 09:03] LABS: ABG Base Excess 3.7 mmol/L; ABG HCO3 27 mmol/L (21-25); ABG Oxygen Saturation 99.6 % (94-97); ABG PCO2 38 mmHg (35-45); ABG PH 7.47 (7.35-7.45); ABG PO2 144 mmHg (83-108); ABG TCO2 29 mmol/L (19-24)
[2020-03-19 09:06] LABS: Allen Test Performed? no
--- NOTE | 2020-03-19 10:19 | P.PN ---
Subjective Progress Note Date: 03/19/20 Principal diagnosis: Acute hypoxemic respiratory failure. 69-year-old female admitted on March 08. Her initial diagnosis was atrial fibrillation with RVR, black stools, and pneumonia. She was initially admitted to the stepdown unit, and came to the intensive care unit on March 11. Because of worsening respiratory status and hypoxemia, she was intubated on 03/14/2020. Yesterday, we did bronchoscopy, focusing on the right upper lobe. A BAL was performed at the bedside. Current results are pending. She remains on the mechanical ventilator. In addition, the patient had the EGD done on March 16. It was negative for acute bleeding or any significant pathology. Her current ventilator settings are the volume assist control mode, rate 24, tidal volume 350, FiO2 40%, and PEEP of 8. Her arterial blood gases show a PaO2 of 102, PaCO2 37, and a pH is 7.48. In addition, the patient is receiving normal saline at KVO, propofol at 60 g per kilogram per minute, norepinephrine, which is been weaned off, and vital high protein at a rate of 21 mL an hour which is goal. Today, we will attempt a daily interruption of sedation and a spontaneous breathing trial, with a PSV of 8 and CPAP of 5. Progress note dated 03/18/2020. 69-year-old female admitted on March 08 with a diagnosis of atrial fibrillation with RVR, lactulose, and pneumonia. She was initially admitted to the stepdown unit and came to the intensive care unit on March 11. Because of worsening hy poxemic respiratory failure, the patient was intubated and mechanically ventilated on 03/14/2020, and remains on mechanical ventilator. She had an EGD done on March 16 and likewise, we did bronchoscopy and BAL, right upper lobe, on March 16. Currently, cultures are pending. She remains on the mechanical ventilator, on the volume assist control mode, rate 24, tidal volume 350, FiO2 40%, and PEEP of 8. She's getting saline at 10 mL an hour. She is also getting vital high protein at 21 mL an hour which is goal. This morning, the nurses turn the propofol off. She was previously an propofol at 30 mcg/kg/m. We placed her on pressure support of 8 cm water, and CPAP of 5 cm water, but un fortunately, we noted Jose López respirations. Hence, we placed her back on the mechanical ventilator. We will use sedation only as needed. She's not quite ready to be extubated. Her arterial blood gases today showed a pO2 of 138, a pCO2 of 40, and a pH is 7.47. This blood gases consistent with a mild metabolic alkalosis. Progress note dated 03/19/2020. 69-year-old female admitted on March 08 with a diagnosis of atrial fibrillation, with rapid ventricular response, black stools, and pneumonia. She was initially admitted to the stepdown unit and came to the intensive care unit on March 11. Because of worsening hypoxemic respiratory failure, the patient was intubated and mechanically ventilated on March 14. This morning, she remains on the mechanical ventilator. Yesterday, we did a daily interruption of sedation and a spontaneous breathing trial, and we noted that she had an irregular breathing pattern with periods of crescendo/decrescendo breathing, and intermittent apnea. Today, on her daily interruption of sedation and spontaneous breathing trial, the patient's pattern is much more regular. She remains on the volume assist control modality, rate of 24, tidal volume of 350, FiO2 40%, and PEEP of 5. Arterial blood gases show a PaO2 of 145, a PaCO2 36, and a pH is 7.49. Today's weaning parameters are excellent, and she had a positive cuff leak. Her rapid shallow breathing index was 72. She is currently on dexmedetomidine, at 0.5 mics per kilogram per hour, saline at 30 mL an hour, and vital high protein at 33 with a goal of 33 mL an hour. Because today's respiratory pattern is much more stable, and she is not demonstrating Jose- López respirations, she can be extubated today. We will keep her nothing by mouth for 6 hours. After that point, the patient can begin with sips of water chips of ice, and then the diet can be advanced. The dexmedetomidine was reduced to 0.25 prior to her spontaneous breathing trial today. Objective - Vital Signs Vital signs: Vital Signs Temp 98.8 F 03/19/20 08:00 Pulse 76 03/19/20 10:00 Resp 24 03/19/20 10:00 BP 141/78 03/18/20 12:00 Pulse Ox 100 03/19/20 10:00 Intake & Output 03/18/20 03/19/20 03/19/20 18:59 06:59 18:59 Intake Total 793 781.323 356.575 Output Total 555 795 95 Balance 238 -13.677 261.575 Weight 46.4 kg 45.7 kg Intake: IV 271 192 149 KVO 100 120 40 Meropenem 1 gm In Sodium 99 100 Chloride 0.9% 100 ml @ 33 .3 mls/hr IVPB Q12HR [facility] Rx#:[id number] pressure bag 72 72 9 Intake, IV Titration 100 17.323 52.575 Amount Dexmedetomidine/0.9% NaCl 17.323 52.575 (Pmx) 400 mcg In Empty Bag 1 bag @ Titrate IV . Q0M [facility] Rx#:[id number] propofoL 1,000 mg In 100 Empty Bag 1 bag @ Titrate IV .Q0M [facility] Rx#: [id number] Tube Feeding 332 482 75 Other 90 90 80 Output: Urine 555 545 95 Stool 250 Other: Voiding Method Indwelling Catheter Indwelling Catheter ABP, PAP, CO, CI - Last Documented Arterial Blood Pressure 170/65 - Exam No acute distress, patient off sedation, with an orally placed endotracheal tub e, and nasogastric tube. Patient appears a bit more awake today. HEENT examination is grossly unremarkable. Endotracheal tube and nasogastric tube noted. Neck supple. Full range of motion. No adenopathy thyromegaly or neck vein distention. Cardiovascular examination reveals regular rhythm rate. S1-S2 normal. No S3 or S4. No discernible murmur noted. Heart sounds are distant. Heart rate is 76 bpm. Lungs reveal coarse bilateral expiratory rhonchi. Bibasilar crackles noted. Breath sounds equal bilaterally. Breath sounds are diminished throughout. Abdomen soft bowel sounds are heard. No masses or tenderness. Extremities are intact. No cyanosis clubbing or edema. Skin is without rash or lesion. Neurologic examination finds the patient to have eyes open, and she appears to understand when you speak to her verbally. She obviously cannot respond. Appears to be relatively weak. - Labs CBC & Chem 7: 03/19/20 04:00 03/19/20 04:00 Labs: Abnormal Lab Results - Last 24 Hours (Table) 03/16/20 03/18/20 03/18/20 Range/Units 09:30 11:39 17:46 WBC (3.8-10.6) k/uL RBC (3.80-5.40) m/uL Hgb (11.4-16.0) gm/dL Hct (34.0-46.0) % RDW (11.5-15.5) % Plt Count (150-450) k/uL ABG pH (7.35-7.45) ABG pO2 (83-108) mmHg ABG HCO3 (21-25) mmol/L ABG Total CO2 (19-24) mmol/L ABG O2 Saturation (94-97) % Chloride (98-107) mmol/L BUN (7-17) mg/dL Creatinine (0.52-1.04) mg/dL Glucose (74-99) mg/dL POC Glucose (mg/dL) 128 H 116 H (75-99) mg/dL Calcium (8.4-10.2) mg/dL Viral Test See Below A 03/18/20 03/19/20 03/19/20 Range/Units 23:47 04:00 04:00 WBC 11.5 H (3.8-10.6) k/uL RBC 3.56 L (3.80-5.40) m/uL Hgb 10.8 L (11.4-16.0) gm/dL Hct 31.9 L (34.0-46.0) % RDW 17.3 H (11.5-15.5) % Plt Count 40 L (150-450) k/uL ABG pH (7.35-7.45) ABG pO2 (83-108) mmHg ABG HCO3 (21-25) mmol/L ABG Total CO2 (19-24) mmol/L ABG O2 Saturation (94-97) % Chloride 110 H (98-107) mmol/L BUN 66 H (7-17) mg/dL Creatinine 1.72 H (0.52-1.04) mg/dL Glucose 125 H (74-99) mg/dL POC Glucose (mg/dL) 123 H (75-99) mg/dL Calcium 6.8 L (8.4-10.2) mg/dL Viral Test 03/19/20 03/19/20 03/19/20 Range/Units 05:05 06:09 08:59 WBC (3.8-10.6) k/uL RBC (3.80-5.40) m/uL Hgb (11.4-16.0) gm/dL Hct (34.0-46.0) % RDW (11.5-15.5) % Plt Count (150-450) k/uL ABG pH 7.49 H 7.47 H (7.35-7.45) ABG pO2 145 H 144 H (83-108) mmHg ABG HCO3 28 H 27 H (21-25) mmol/L ABG Total CO2 29 H 29 H (19-24) mmol/L ABG O2 Saturation 99.7 H 99.6 H (94-97) % Chloride (98-107) mmol/L BUN (7-17) mg/dL Creatinine (0.52-1.04) mg/dL Glucose (74-99) mg/dL POC Glucose (mg/dL) 139 H (75-99) mg/dL Calcium (8.4-10.2) mg/dL Viral Test Microbiology - Last 24 Hours (Table) 03/16/20 09:30 Gram Stain - Final Bronchial Washings - Right Bronchial Washings Culture - Final Nicolle albicans 03/15/20 21:23 Gram Stain - Final Sputum Sputum Culture - Final Nicolle albicans Assessment and Plan Assessment: Acute hypoxemic respiratory failure, secondary to community acquired pneumonia, requiring intubation and mechanical ventilation on 03/14/2020, and anticipated extubation on 03/19/2020. Failure to wean from mechanical ventilation. Status post bronchoscopy and BAL, right upper lobe, 03/16/2020. Status post EGD, on 03/16/2020, without any significant bleeding or active pathology. Acute diastolic congestive heart failure. Multiple myeloma by history. History of acute kidney injury. Chronic obstructive pulmonary disease. Stage III chronic kidney disease. Paroxysmal atrial fibrillation. History of cerebrovascular accident. History of essential hypertension. Hyperlipidemia. Acute on chronic anemia. Plan: Plan dated 03/19/2020. Because today his respiratory pattern is much more stable, and because she has excellent weaning parameters and a cuff leak test, we will give her a trial of extubation. The same abnormal breathing pattern that she had yesterday is not being observed today. We will cut the Precedex in half, and eventually discontinue it completely. We'll also discontinue her tube feedings. After 6 hours, if there is stability, we'll begin with sips of water chips of ice and advance to a more regular diet. Today's laboratory data are stable. White count is 11.5, hemoglobin 10.8, BUN and creatinine were 66 and 1.72 respectively. Microbiology is negative and chest x-ray continues to show bilateral infiltrates with predominance in the right upper lobe. Time with Patient: Greater than 30
[2020-03-19] MEDS: HYDROmorphone 1 MG/ML 1 ML SYRINGE IVP PRN ×2 (10:32→16:23)
[2020-03-19] MEDS: CALCIUM CARB-VIT D 500 MG-5 MCG TAB PO SCH (11:30)
[2020-03-19] MEDS: METOPROLOL TARTRATE 25 MG TAB PO SCH ×2 (11:30→20:36)
[2020-03-19] MEDS: SODIUM BICARBONATE TAB 650 MG TAB PO SCH ×2 (11:31→20:37)
[2020-03-19 11:51] LABS: Glucose,Whole Blood 110 mg/dL (75-99)
[2020-03-19] MEDS: SERTRALINE 100 MG TAB PO SCH (13:05)
[2020-03-19] MEDS: hydrALAZINE HCL 20 MG/ML 1 ML VIAL IVP PRN (14:31)
[2020-03-19 17:47] LABS: Glucose,Whole Blood 103 mg/dL (75-99)
--- NOTE | 2020-03-19 19:01 | P.PN ---
Progress Note - Text Progress Note Date: 03/19/20 Presenting complaint: Intubated Interval history: This is a very pleasant 69-year-old patient of Dr. Villalobos. Chronic stable medical conditions include paroxysmal atrial flutter fibrillation, , CHF with an EF of 50-55%, tricuspid and mitral regurgitation, secondary pulmonary hypertension, chronic kidney disease stage IV, hypertension, hyperlipidemia,. Patient also being treated for multiple myeloma. on REVLIMID Patient presented with shortness of breath confusion cough congestion. Admitted with right upper lobe pneumonia, acute delirium. Started on IV aztreonam and azithromycin. Developed black tarry stools. Dropped hemoglobin. 1 unit of blood given. Patient desaturated. Moved to the ICU on March 11. Intubated March 14-placed on IV levo fed propofol antibiotics changed to IV meropenem. bronchoscopy done by Dr. Hart[March 16]-thick philomena, secretions obtained. Extubated March 19 Iwouy-YOY-aegyoommu today. Often drips. Tired. Congested. Awake Review of systems: Patient tired-didn't answer questions Active Medications Acetaminophen (Acetaminophen Tab 325 Mg Tab) 650 mg PO Q4HR PRN PRN Reason: Fever and/ or Pain Last Admin: 03/11/20 22:00 Dose: 650 mg Documented by: Albuterol/Ipratropium (Ipratropium-Albuterol 3 Ml Neb) 3 ml INHALATION RT-Q4H [facility] Last Admin: 03/19/20 14:57 Dose: 3 ml Documented by: Calcitriol (Calcitriol 0.25 Mcg Cap) 0.25 mcg PO PC-LUNCH [facility] Last Admin: 03/19/20 13:05 Dose: Not Given Documented by: Calcium Carbonate (Calcium Carb-Vit D 500mg-200un 1 Each Tab) 2 each PO DAILY@1200 [facility] Last Admin: 03/19/20 11:30 Dose: Not Given Documented by: Chlorhexidine Gluconate (Chlorhexidine Gluconate 15 Ml Cup) 15 ml MUCOUS MEM BID [facility] Last Admin: 03/19/20 08:12 Dose: 15 ml Documented by: Fluconazole (Fluconazole 100 Mg Tab) 100 mg PO DAILY [facility] Last Admin: 03/19/20 08:12 Dose: 100 mg Documented by: Hydralazine HCl (Hydralazine Hcl 20 Mg/Ml 1 Ml Vial) 10 mg IVP Q6HR PRN PRN Reason: Blood Pressure - High Last Admin: 03/19/20 14:31 Dose: 10 mg Documented by: Hydromorphone HCl (Hydromorphone 1 Mg/Ml 1 Ml Syringe) 1 mg IVP Q2HR PRN PRN Reason: Pain Last Admin: 03/19/20 16:23 Dose: 1 mg Documented by: Meropenem 1 gm/ Sodium (Chloride) 100 mls @ 33.3 mls/hr IVPB Q12HR [facility]; Protocol Last Admin: 03/19/20 08:13 Dose: 33.3 mls/hr Documented by: Propofol 1,000 mg/ IV Solution 100 mls @ 0 mls/hr IV .Q0M [facility]; Protocol Last Titration: 03/18/20 08:02 Dose: Infused Documented by: Dexmedetomidine HCl 400 mcg/ (IV Solution) 100 mls @ 0 mls/hr IV .Q0M [facility]; Protocol Stop: 03/19/20 20:31 Last Titration: 03/19/20 09:44 Dose: 0 mcg/kg/hr, 0 mls/hr Documented by: Insulin Aspart (Insulin Aspart (Novolog) 100 Unit/Ml Vial) 0 unit SQ Q6H [facility]; Protocol Last Admin: 03/19/20 17:54 Dose: Not Given Documented by: Latanoprost (Latanoprost 0.005% Ophth Drops 2.5 Ml Btl) 1 drops BOTH EYES HS [facility] Last Admin: 03/18/20 20:20 Dose: 1 drops Documented by: Methylprednisolone Sodium Succinate (Methylprednisolone Sod Succi 40 Mg/Ml 1 Ml Vial) 40 mg IV Q8HR [facility] Last Admin: 03/19/20 16:23 Dose: 40 mg Documented by: Metoprolol Tartrate (Metoprolol Tartrate 25 Mg Tab) 25 mg PO BID@1200,2100 [facility] Last Admin: 03/19/20 11:30 Dose: Not Given Documented by: Miscellaneous Information (Pneumonia Protocol Utilized 1 Each Misc) 1 each PO ONCE PRN PRN Reason: Per Protocol Pantoprazole Sodium (Pantoprazole 40 Mg/10 Ml Vial) 40 mg IVP BID [facility] Last Admin: 03/19/20 08:13 Dose: 40 mg Documented by: Sertraline HCl (Sertraline 100 Mg Tab) 200 mg PO PC-LUNCH [facility] Last Admin: 03/19/20 13:05 Dose: Not Given Documented by: Sodium Bicarbonate (Sodium Bicarbonate Tab 650 Mg Tab) 1,300 mg PO DAILY@1200 [facility] Last Admin: 03/19/20 11:31 Dose: Not Given Documented by: Sodium Bicarbonate (Sodium Bicarbonate Tab 650 Mg Tab) 650 mg PO HS [facility] Last Admin: 03/18/20 20:19 Dose: 650 mg Documented by: Physical examination: VITAL SIGNS: 97.4, 97, 18, 143.52, 98% on 4 L GENERAL: Laying in bed, tired, awake EYES: Pupils equal. Conjunctiva pale HEENT: External appearance of nose and ears normal, oral G-tube NECK: JVD not raised; masses not palpable. HEART: First and second heart sounds are normal; no edema. LUNGS: Respiratory rate increased, decreased breath sounds ABDOMEN: Soft, nontender, liver spleen not palpable, no masses palpable. PSYCH: Difficult to assess MUSCULOSKELETAL: Diffuse wasting of muscles Investigations, reviewed in the clinical context: March 19: White count 9.5 hemoglobin 10.8 platelets 40 potassium 3.9 bun 66 creatinine 1.7 to March 18: White count 9.1 hemoglobin 10.2 potassium 3.7 bun 62 creatinine 1.83 Chest x-ray film personally reviewed by me-infiltrate clearing March 16: White count 9.3 hemoglobin 10 platelets 46 potassium 4.2 BUN 50 creatinine 1.88 March 15: White count 7.4 hemoglobin 5.9 platelets 50 BUN 38 creatinine 1.5 for March 14: White count 12.3 hemoglobin 7.4 potassium 4.8 bun 39 creatinine 1.43. ABG show pH of 7.15 March 13: White count 15.4 hemoglobin 8.7 platelets 91 bun 36 creatinine 1.48 March 12: White count 23.4 hemoglobin 9.2 platelets 113. Check stat x-ray film-right upper lobe dense infiltrate March 11: White count 9.2 hemoglobin 6 platelets 86potassium 5 creatinine 1.56 pro-calcitonin 1.34 Pro-calcitonin 1.84 White count 14 hemoglobin 8.1 platelets 134 potassium 4.2 BUN 47 creatinine 2.64 Lactic acid 4.9 Coronavirus P/Cr-not detected VQ scan-low probability for PE EKG tracing personally reviewed by me-normal sinus rhythm some ST segment changes Chest l-nat-mdqpov infiltrate throughout the right upper lobe and the superior segment of the right lower lobe Taqtnxpnimma-eyhxrwra-Hwmkczc albicans Sputum-Nicolle albicans Assessment: -Right upper lobe pneumonia, suspect gram-negative organism in an immunosuppressed patient, , POA,- -Paroxysmal atrial flutter and fibrillation-with rapid ventricular rate then went back into sinus rhythm -Anemia multifactorial including that of chronic disease including multiple myeloma -Acute COPD exacerbation in a ex-smoker, -Chronic congestive heart failure from systolic and diastolic dysfunction EF 50- 55% -Moderate tricuspid and severe mitral regurgitation, nontraumatic -Severe secondary pulmonary hypertension secondary to CHF and COPD -Multiple myeloma on chemotherapy -Chronic kidney disease secondary to multiple myeloma stage IV and chronic interstitial nephropathy -Essential hypertension -Hyperlipidemia -Severe protein calorie malnutrition due to poor oral intake. BMI 14.4 -Chronic medical debility -Multiple old rib fractures due to multiple myeloma -Acute GI bleed dropping hemoglobin down to 6.-Received total of 3 units of blood, AGG Deford for now. -Acute hypoxic respiratory failure-worsening overnight-intubated on the ventilator March 14-extubated March 19. Currently on 4 L nasal cannula -Hypotensive status post levo fed -Acute kidney injury possibly combination of ATN and prerenal-improved Plan: Patient currently on bronchodilators, IV meropenem, IV Solu-Medrol, . Add Diflucan. Decrease Solu-Medrol to 20 mg IV every 8.-From tomorrow
--- NOTE | 2020-03-19 19:02 | PN ---
PROGRESS NOTE DATE OF SERVICE: 03/19/2020 REASON FOR FOLLOWUP: Pneumonia. INTERVAL HISTORY: The patient is currently afebrile. The patient is breathing comfortably. The patient has been extubated, currently on 4 L nasal cannula. Denies having any chest pain. She did have some cough; no sputum. No abdominal pain or diarrhea. PHYSICAL EXAMINATION: Blood pressure 161/55, pulse of 87, temperature 97.4. She is 98% on 4 L nasal cannula. General description is an elderly female lying in bed in no distress. RESPIRATORY SYSTEM: Unlabored breathing with decreased intensity of breath sounds. No wheeze. HEART: S1, S2. Regular rate and rhythm. ABDOMEN: Soft. No tenderness. LABS: Hemoglobin is 10.8, white count 11.5, BUN of 66, creatinine 1.72. DIAGNOSTIC IMPRESSION AND PLAN: Patient with acute respiratory failure, multifactorial, in this patient who did have a component of pneumonia. Cultures have been negative for any resistant pathogen; however, the patient does have MULTIPLE ANTIBIOTIC ALLERGIES. Currently responding to meropenem. Continue while watching clinical course closely. Continue supportive care. MMODL / IJN: [id number] /
[2020-03-19] MEDS: LATANOPROST 0.005% OPHTH DROPS 2.5 ML BTL BOTH EYES SCH (20:41)
[2020-03-20 00:03] LABS: Glucose,Whole Blood 98 mg/dL (75-99)
[2020-03-20] MEDS: methylPREDNISolone SOD SUCCI 40 MG/ML 1 ML VIAL IV SCH ×4 (00:16→23:39)
[2020-03-20] MEDS: INSULIN ASPART (NovoLOG) 100 UNIT/ML VIAL SQ SCH ×5 (00:18→20:24)
[2020-03-20] MEDS: IPRATROPIUM-ALBUTEROL 3 ML NEB INHALATION SCH ×5 (04:32→20:30)
[2020-03-20 04:37] LABS: Glucose,Whole Blood 92 mg/dL (75-99)
[2020-03-20 04:56] LABS: Anisocytosis Slight; HCT 29.6 % (34.0-46.0); HGB 9.8 gm/dL (11.4-16.0); Hypochromasia Slight; MCH 30.3 pg (25.0-35.0); MCHC 33.3 g/dL (31.0-37.0); MCV 90.9 fL (80.0-100.0); Mean Platelet Volume 10.3; RBC 3.25 m/uL (3.80-5.40); RDW 17.6 % (11.5-15.5); WBC 7.1 k/uL (3.8-10.6)
[2020-03-20 05:00] LABS: Platelet Count 34 k/uL (150-450)
[2020-03-20 05:03] LABS: Calcium 6.6 mg/dL (8.4-10.2); Potassium 3.9 mmol/L (3.5-5.1)
--- NOTE | 2020-03-20 07:21 | XR ---
EXAMINATION TYPE: XR chest 1V portable DATE OF EXAM: 03/20/2020 Comparison: 03/19/2020 Clinical History: 69-year-old female Tube placement Findings: Interval extubation and removal of NG tube. Heart remains borderline in size. Hyperinflation. Redemon strated bilateral sclerotic numerous rib fracture deformities. Continued patchy airspace opacity thro ughout the right upper lobe with underlying cavitary change. Additional patchy bibasilar densities ar e present, slightly increased from yesterday. Impression: 1. COPD with continued right upper lobe infiltrate with underlying cavitary change. 2. Mild patchy bibasilar atelectasis/infiltrate increased in the interval. 3. Numerous bilateral sclerotic rib fracture deformities redemonstrated.
[2020-03-20] MEDS: FLUCONAZOLE 100 MG TAB PO SCH (08:14)
[2020-03-20] MEDS: PANTOPRAZOLE 40 MG/10 ML VIAL IVP SCH (08:14)
[2020-03-20] MEDS: MEROPENEM 1 GM in SODIUM CHLORIDE 0.9% 100 ML IVPB SCH ×2 (08:14→20:27)
--- NOTE | 2020-03-20 10:31 | P.PN ---
Subjective Progress Note Date: 03/20/20 Principal diagnosis: Acute hypoxemic respiratory failure. 69-year-old female admitted on March 08. Her initial diagnosis was atrial fibrillation with RVR, black stools, and pneumonia. She was initially admitted to the stepdown unit, and came to the intensive care unit on March 11. Because of worsening respiratory status and hypoxemia, she was intubated on 03/14/2020. Yesterday, we did bronchoscopy, focusing on the right upper lobe. A BAL was performed at the bedside. Current results are pending. She remains on the mechanical ventilator. In addition, the patient had the EGD done on March 16. It was negative for acute bleeding or any significant pathology. Her current ventilator settings are the volume assist control mode, rate 24, tidal volume 350, FiO2 40%, and PEEP of 8. Her arterial blood gases show a PaO2 of 102, PaCO2 37, and a pH is 7.48. In addition, the patient is receiving normal saline at KVO, propofol at 60 g per kilogram per minute, norepinephrine, which is been weaned off, and vital high protein at a rate of 21 mL an hour which is goal. Today, we will attempt a daily interruption of sedation and a spontaneous breathing trial, with a PSV of 8 and CPAP of 5. Progress note dated 03/18/2020. 69-year-old female admitted on March 08 with a diagnosis of atrial fibrillation with RVR, lactulose, and pneumonia. She was initially admitted to the stepdown unit and came to the intensive care unit on March 11. Because of worsening hy poxemic respiratory failure, the patient was intubated and mechanically ventilated on 03/14/2020, and remains on mechanical ventilator. She had an EGD done on March 16 and likewise, we did bronchoscopy and BAL, right upper lobe, on March 16. Currently, cultures are pending. She remains on the mechanical ventilator, on the volume assist control mode, rate 24, tidal volume 350, FiO2 40%, and PEEP of 8. She's getting saline at 10 mL an hour. She is also getting vital high protein at 21 mL an hour which is goal. This morning, the nurses turn the propofol off. She was previously an propofol at 30 mcg/kg/m. We placed her on pressure support of 8 cm water, and CPAP of 5 cm water, but un fortunately, we noted Jose López respirations. Hence, we placed her back on the mechanical ventilator. We will use sedation only as needed. She's not quite ready to be extubated. Her arterial blood gases today showed a pO2 of 138, a pCO2 of 40, and a pH is 7.47. This blood gases consistent with a mild metabolic alkalosis. Progress note dated 03/19/2020. 69-year-old female admitted on March 08 with a diagnosis of atrial fibrillation, with rapid ventricular response, black stools, and pneumonia. She was initially admitted to the stepdown unit and came to the intensive care unit on March 11. Because of worsening hypoxemic respiratory failure, the patient was intubated and mechanically ventilated on March 14. This morning, she remains on the mechanical ventilator. Yesterday, we did a daily interruption of sedation and a spontaneous breathing trial, and we noted that she had an irregular breathing pattern with periods of crescendo/decrescendo breathing, and intermittent apnea. Today, on her daily interruption of sedation and spontaneous breathing trial, the patient's pattern is much more regular. She remains on the volume assist control modality, rate of 24, tidal volume of 350, FiO2 40%, and PEEP of 5. Arterial blood gases show a PaO2 of 145, a PaCO2 36, and a pH is 7.49. Today's weaning parameters are excellent, and she had a positive cuff leak. Her rapid shallow breathing index was 72. She is currently on dexmedetomidine, at 0.5 mics per kilogram per hour, saline at 30 mL an hour, and vital high protein at 33 with a goal of 33 mL an hour. Because today's respiratory pattern is much more stable, and she is not demonstrating Jose- López respirations, she can be extubated today. We will keep her nothing by mouth for 6 hours. After that point, the patient can begin with sips of water chips of ice, and then the diet can be advanced. The dexmedetomidine was reduced to 0.25 prior to her spontaneous breathing trial today. Progress note dated 03/20/2020. 69-year-old female who was successfully extubated yesterday, 03/19/2020. Currently, she is on O2 2 L by nasal cannula, and saline at KVO. We will advance her diet today. I think she can go out to the general medical floor with telemetry. In addition, we will discontinue her arterial line. Her chest x-ray is somewhat improved. Clinically she is doing much better. She's awake and alert. Yesterday, did a daily eruption sedation with a spontaneous breathing trial, on pressure support of 5, and CPAP of 5. Her weaning parameters, cuff leak, and rapid shallow breathing index were all great. Hence she was successfully extubated. Currently, she is laying in bed. She looks very comfortable. Apparently I do see her in the office for her COPD. Her white blood count is 7.1, he will 9.8, hematocrit 29.6, and platelet count is 34,000. Sodium is 143, potassium 3.9, chloride 113, CO2 26. Anion gap is 4. BUN and creatinine were 61 and 1.51. Microbiology is negative. Her medications are reviewed. Objective - Vital Signs Vital signs: Vital Signs Temp 97.6 F 03/20/20 08:00 Pulse 74 03/20/20 10:00 Resp 20 03/20/20 10:00 BP 141/78 03/18/20 12:00 Pulse Ox 97 03/20/20 10:00 Intake & Output 03/19/20 03/20/20 03/20/20 18:59 06:59 18:59 Intake Total 626.575 276 23 Output Total 1075 830 50 Balance -448.425 -554 -27 Weight 46.9 kg Intake: IV 419 276 23 KVO 280 240 20 Meropenem 1 gm In Sodium 100 Chloride 0.9% 100 ml @ 33 .3 mls/hr IVPB Q12HR [facility] Rx#:[id number] pressure bag 39 36 3 Intake, IV Titration 52.575 Amount Dexmedetomidine/0.9% NaCl 52.575 (Pmx) 400 mcg In Empty Bag 1 bag @ Titrate IV . Q0M [facility] Rx#:[id number] Tube Feeding 75 Other 80 Output: Urine 975 830 50 Stool 100 Other: Voiding Method Indwelling Catheter Indwelling Catheter Indwelling Catheter ABP, PAP, CO, CI - Last Documented Arterial Blood Pressure 148/48 - Exam No acute distress, Alert and oriented 3. The patient's on nasal oxygen at 2 L/m. HEENT examination is grossly unremarkable. Endotracheal tube and nasogastric tube have been removed. Neck supple. Full range of motion. No adenopathy thyromegaly or neck vein dis tention. Cardiovascular examination reveals regular rhythm rate. S1-S2 normal. No S3 or S4. No discernible murmur noted. Heart sounds are distant. Heart rate is 74 bpm. Lungs reveal coarse bilateral expiratory rhonchi. Bibasilar crackles noted. Breath sounds equal bilaterally. Breath sounds are diminished throughout. Abdomen soft bowel sounds are heard. No masses or tenderness. Extremities are intact. No cyanosis clubbing or edema. Skin is without rash or lesion. Neurologic examination is brief but nonfocal. The patient does have diffuse weakness. - Labs CBC & Chem 7: 03/20/20 04:34 03/20/20 04:34 Labs: Abnormal Lab Results - Last 24 Hours (Table) 03/19/20 03/19/20 03/20/20 Range/Units 11:50 17:45 04:34 RBC 3.25 L (3.80-5.40) m/uL Hgb 9.8 L (11.4-16.0) gm/dL Hct 29.6 L (34.0-46.0) % RDW 17.6 H (11.5-15.5) % Plt Count 34 L (150-450) k/uL Chloride (98-107) mmol/L BUN (7-17) mg/dL Creatinine (0.52-1.04) mg/dL POC Glucose (mg/dL) 110 H 103 H (75-99) mg/dL Calcium (8.4-10.2) mg/dL 03/20/20 Range/Units 04:34 RBC (3.80-5.40) m/uL Hgb (11.4-16.0) gm/dL Hct (34.0-46.0) % RDW (11.5-15.5) % Plt Count (150-450) k/uL Chloride 113 H (98-107) mmol/L BUN 61 H (7-17) mg/dL Creatinine 1.51 H (0.52-1.04) mg/dL POC Glucose (mg/dL) (75-99) mg/dL Calcium 6.6 L (8.4-10.2) mg/dL Assessment and Plan Assessment: Acute hypoxemic respiratory failure, secondary to community acquired pneumonia, requiring intubation and mechanical ventilation on 03/14/2020, and successful extubation on 03/19/2020. Status post bronchoscopy and BAL, right upper lobe, 03/16/2020. Status post EGD, on 03/16/2020, without any significant bleeding or active pathology. Acute diastolic congestive heart failure. Multiple myeloma by history. History of acute kidney injury. Chronic obstructive pulmonary disease. Stage III chronic kidney disease. Paroxysmal atrial fibrillation. History of cerebrovascular accident. History of essential hypertension. Hyperlipidemia. Acute on chronic anemia. Plan: Plan dated 03/20/2020. The patient was successfully extubated on March 19. Currently, she is on O2 at 2 L, and receiving saline at KVO. Her diet has been advanced. She can be transferred to the general medical floor, telemetry. We will discontinue her arterial line. Microbiology thus far is negative. This includes the samples obtained from bronchoscopy on March 16. Her chest x-ray is improved. Overall prognosis remains guarded. Her medications will be reviewed. Unnecessary medications are discontinued. We will continue to follow. Time with Patient: Greater than 30
[2020-03-20 11:59] LABS: Glucose,Whole Blood 104 mg/dL (75-99)
[2020-03-20] MEDS: METOPROLOL TARTRATE 25 MG TAB PO SCH ×2 (13:03→20:26)
[2020-03-20] MEDS: CALCIUM CARB-VIT D 500 MG-5 MCG TAB PO SCH (13:03)
[2020-03-20] MEDS: SERTRALINE 100 MG TAB PO SCH (13:03)
[2020-03-20] MEDS: SODIUM BICARBONATE TAB 650 MG TAB PO SCH ×2 (13:17→20:26)
[2020-03-20] MEDS ORDERED: IMMUNE GLOBULIN (GAMMAGARD) 30 GM in EMPTY BAG 1 BAG IV ONE (16:00)
[2020-03-20 16:48] LABS: Glucose,Whole Blood 99 mg/dL (75-99)
--- NOTE | 2020-03-20 16:57 | P.PN ---
Subjective 69-year-old patient of Dr. Villalobos. Chronic stable medical conditions include paroxysmal atrial flutter fibrillation, , CHF with an EF of 50-55%, tricuspid and mitral regurgitation, secondary pulmonary hypertension, chronic kidney disease stage IV, hypertension, hyperlipidemia,. Patient also being treated for multiple myeloma. on REVLIMID Patient presented with shortness of breath confusion cough congestion. Admitted with right upper lobe pneumonia, acute delirium. Started on IV aztreonam and azithromycin. Developed black tarry stools. Dropped hemoglobin. 1 unit of blood given. Patient desaturated. Moved to the ICU on March 11. Intubated March 14-placed on IV levo fed propofol antibiotics changed to IV meropenem. bronchoscopy done by Dr. Hart[March 16]-thick philomena, secretions obtained. Extubated March 19 [id number] today. Often drips. Tired. Congested. Awake. 03/20/2020 Patient is presently on 2 L of oxygen clinically doing well feeling much better. Patient wheezing improved. Constitutional: Denied any fatigue denied any fever. Cardio vascular: denied any chest pain, palpitations Gastrointestinal denied any nausea vomiting Pulmonary: Denied any shortness of breath cough Neurologic denied any new focal deficits All inpatient medications were reviewed and appropriate changes in these medications as dictated in the interval history and assessment and plan. Objective - Vital Signs Vital signs: Vital Signs Temp 98.3 F 03/20/20 16:00 Pulse 70 03/20/20 16:26 Resp 20 03/20/20 16:00 BP 148/74 03/20/20 16:00 Pulse Ox 97 03/20/20 16:00 Intake & Output 03/19/20 03/20/20 03/20/20 18:59 06:59 18:59 Intake Total 626.575 276 244 Output Total 1075 830 280 Balance -448.425 -554 -36 Weight 46.9 kg 46.9 kg Intake: IV 419 276 244 KVO 280 240 120 Meropenem 1 gm In Sodium 100 100 Chloride 0.9% 100 ml @ 33 .3 mls/hr IVPB Q12HR [facility] Rx#:[id number] pressure bag 39 36 24 Intake, IV Titration 52.575 Amount Dexmedetomidine/0.9% NaCl 52.575 (Pmx) 400 mcg In Empty Bag 1 bag @ Titrate IV . Q0M [facility] Rx#:[id number] Tube Feeding 75 Other 80 Output: Urine 975 830 280 Stool 100 Other: Voiding Method Indwelling Catheter Indwelling Catheter Indwelling Catheter ABP, PAP, CO, CI - Last Documented Arterial Blood Pressure 148/48 - Exam PHYSICAL EXAMINATION: GENERAL: The patient is alert and oriented x3, not in any acute distress. Thin built HEENT: Pupils are round and equally reacting to light. EOMI. No scleral icterus. No conjunctival pallor. Normocephalic, atraumatic. No pharyngeal erythema. No thyromegaly. CARDIOVASCULAR: S1 and S2 present. No murmurs, rubs, or gallops. PULMONARY: Chest is clear to auscultation, no wheezing or crackles. ABDOMEN: Soft, nontender, nondistended, normoactive bowel sounds. No palpable organomegaly. MUSCULOSKELETAL: No joint swelling or deformity. EXTREMITIES: No cyanosis, clubbing, or pedal edema. NEUROLOGICAL: Gross neurological examination did not reveal any focal deficits. SKIN: No rashes. - Labs CBC & Chem 7: 03/20/20 04:34 03/20/20 04:34 Labs: Abnormal Lab Results - Last 24 Hours (Table) 03/19/20 03/20/20 03/20/20 Range/Units 17:45 04:34 04:34 RBC 3.25 L (3.80-5.40) m/uL Hgb 9.8 L (11.4-16.0) gm/dL Hct 29.6 L (34.0-46.0) % RDW 17.6 H (11.5-15.5) % Plt Count 34 L (150-450) k/uL Chloride 113 H (98-107) mmol/L BUN 61 H (7-17) mg/dL Creatinine 1.51 H (0.52-1.04) mg/dL POC Glucose (mg/dL) 103 H (75-99) mg/dL Calcium 6.6 L (8.4-10.2) mg/dL 03/20/20 Range/Units 11:58 RBC (3.80-5.40) m/uL Hgb (11.4-16.0) gm/dL Hct (34.0-46.0) % RDW (11.5-15.5) % Plt Count (150-450) k/uL Chloride (98-107) mmol/L BUN (7-17) mg/dL Creatinine (0.52-1.04) mg/dL POC Glucose (mg/dL) 104 H (75-99) mg/dL Calcium (8.4-10.2) mg/dL Microbiology - Last 24 Hours (Table) 03/16/20 09:30 Fungal Culture - Preliminary Bronchial Brushings - Right Nicolle albicans Assessment and Plan Plan: Acute on chronic hypoxic and hypercapnic respiratory failure: Secondary to pneumonia and COPD exacerbation patient was extubated on 03/19/2020 -Right upper lobe pneumonia, patient is on meropenem organism is unknown patient has Nicolle in the sputum as well patient is on meropenem because of multiple ALLERGIES. For Nicolle in the sputum patient was started on the antifungal by infectious disease -Paroxysmal atrial flutter and fibrillation-with rapid ventricular admission presently sinus rhythm -Anemia multifactorial including that of chronic disease including multiple myeloma - COPD exacerbation in a ex-smoker, -Chronic congestive heart failure from systolic and diastolic dysfunction EF 50- 55% patient is not in acute exacerbation -Moderate tricuspid and severe mitral regurgitation, nontraumatic -Severe secondary pulmonary hypertension secondary to COPD -Multiple myeloma on chemotherapy -Chronic kidney disease secondary to multiple myeloma stage IV and chronic interstitial nephropathy -Essential hypertension -Hyperlipidemia -Severe protein calorie malnutrition due to poor oral intake. BMI 14.4 -Chronic medical debility -Multiple old rib fractures due to multiple myeloma -Acute kidney injury possibly combination of ATN and prerenal-improved correlation present creatinine is 1.5, this is a actually better than her baseline
--- NOTE | 2020-03-20 20:04 | P.PN ---
Subjective Progress Note Date: 03/20/20 Principal diagnosis: Multiple Myeloma and Respiratory Failure She is off the ventilator and awake, Her IgG was 469, therefore to help in her immune production will give a dose of IVIG, this was given as a verbal order to pharmacy. Objective - Vital Signs Vital signs: Vital Signs Temp 98.3 F 03/20/20 16:00 Pulse 70 03/20/20 16:26 Resp 20 03/20/20 16:00 BP 148/74 03/20/20 16:00 Pulse Ox 97 03/20/20 16:00 Intake & Output 03/20/20 03/20/20 03/21/20 06:59 18:59 06:59 Intake Total 276 419.600 Output Total 830 756 Balance -554 -336.400 Weight 46.9 kg 46.9 kg Intake: IV 276 304 KVO 240 180 Meropenem 1 gm In Sodium 100 Chloride 0.9% 100 ml @ 33 .3 mls/hr IVPB Q12HR [facility] Rx#:[id number] pressure bag 36 24 Intake, IV Titration 115.600 Amount Immune Globulin ( 115.600 Gammagard) 30 gm In Empty Bag 1 bag @ Per Protocol IV .Q0M [facility] Rx#: [id number] Output: Urine 830 556 Stool 100 Emesis 100 Other: Voiding Method Indwelling Catheter Indwelling Catheter ABP, PAP, CO, CI - Last Documented Arterial Blood Pressure 148/48 - Exam General appearance: Present: average body habitus, appears ill Pale Dry mucus membranes No rash - Respiratory Respiratory: Crackles at bilateral bases, mild increase effort - Cardiovascular Heart sounds: normal: S1, S2 - Gastrointestinal General gastrointestinal: Present: normal bowel sounds - Neurologic Neuro: Non focal - Psychiatric Psychiatric: Absent: A&O x's 3, appropriate affect, intact judgment & insight - Labs CBC & Chem 7: 03/20/20 04:34 03/20/20 04:34 Labs: Abnormal Lab Results - Last 24 Hours (Table) 03/20/20 03/20/20 03/20/20 Range/Units 04:34 04:34 11:58 RBC 3.25 L (3.80-5.40) m/uL Hgb 9.8 L (11.4-16.0) gm/dL Hct 29.6 L (34.0-46.0) % RDW 17.6 H (11.5-15.5) % Plt Count 34 L (150-450) k/uL Chloride 113 H (98-107) mmol/L BUN 61 H (7-17) mg/dL Creatinine 1.51 H (0.52-1.04) mg/dL POC Glucose (mg/dL) 104 H (75-99) mg/dL Calcium 6.6 L (8.4-10.2) mg/dL Microbiology - Last 24 Hours (Table) 03/16/20 09:30 Fungal Culture - Preliminary Bronchial Brushings - Right Nicolle albicans Assessment and Plan (1) Atrial flutter with rapid ventricular response Narrative/Plan: Cardiology Following regular rate, improving Current Visit: Yes Status: Acute Code(s): I48.92 - UNSPECIFIED ATRIAL FLUTTER SNOMED Code(s): 2801571 (2) Chronic kidney disease Narrative/Plan: Nephrology Following Stable, Creat 1.5 today Current Visit: Yes Status: Chronic Code(s): N18.9 - CHRONIC KIDNEY DISEASE, UNSPECIFIED SNOMED Code(s): 953392859 (3) Acute exacerbation of chronic obstructive airways disease Narrative/Plan: Management per ICU and Pulm Extubated and on room air Treatment for pneumonia Current Visit: No Status: Acute Code(s): J44.1 - CHRONIC OBSTRUCTIVE PULMONARY DISEASE W (ACUTE) EXACERBATION SNOMED Code(s): 381505742 (4) Multiple myeloma not having achieved remission Narrative/Plan: Continue to Hold Revlimid with Cytopenias at this time Will anticipate 3-4 week hold for recovery of this hospitalization and can follow-up with Dr. Larson as outpatient at that time. She has been instructed to not resume until re-evaluation as outpatient Current Visit: No Status: Chronic Priority: Medium Code(s): C90.00 - MULTIPLE MYELOMA NOT HAVING ACHIEVED REMISSION SNOMED Code(s): 990905632 (5) Pancytopenia Narrative/Plan: Secondary to Chronic disease, acute on chronic infectious/inflammatory response, Multiple myeloma, and chemotherapy Continue to hold Revlamid for now Transfuse hemoglobin less than 7 Current Visit: No Status: Chronic Priority: Medium Code(s): D61.818 - OTHER PANCYTOPENIA SNOMED Code(s): 063095980 Plan: Physician Attest: I have completed the full history and physical and agree with above dictation, dictated as a scribe.
[2020-03-20 20:25] LABS: Glucose,Whole Blood 105 mg/dL (75-99)
[2020-03-20] MEDS: LATANOPROST 0.005% OPHTH DROPS 2.5 ML BTL BOTH EYES SCH (20:27)
[2020-03-20] MEDS: SYMBICORT 160-4.5 MCG INHALER INHALATION SCH (20:30)
--- NOTE | 2020-03-20 22:02 | PN ---
PROGRESS NOTE DATE OF SERVICE: 03/20/2020 REASON FOR FOLLOWUP: Pneumonia. INTERVAL HISTORY: The patient is currently afebrile. The patient is breathing more comfortably. The patient denies having any chest pain or shortness of breath. Occasional cough. No abdominal pain or diarrhea. PHYSICAL EXAMINATION: Blood pressure 148/74 with a pulse of 67, temperature 98.3. She is 97% on 2 L nasal cannula. General description is an elderly female lying in bed in no distress. RESPIRATORY SYSTEM: Unlabored breathing with decreased intensity of breath sounds. No wheeze. HEART: S1, S2. Regular rate and rhythm. ABDOMEN: Soft. No tenderness. LABS: Hemoglobin is 9.8, white count 7.1. Creatinine is down to 1.51. DIAGNOSTIC IMPRESSION AND PLAN: Patient with acute respiratory failure which is multifactorial in this patient who did have a component of pneumonia. The patient is currently covered with meropenem because of her MULTIPLE ANTIBIOTIC ALLERGIES. To continue and monitor clinical course closely. MMODL / IJN: [id number] /
[2020-03-21 05:06] LABS: Anisocytosis Slight; HCT 28.1 % (34.0-46.0); HGB 9.3 gm/dL (11.4-16.0); Hypochromasia Slight; MCH 29.9 pg (25.0-35.0); MCHC 33.1 g/dL (31.0-37.0); MCV 90.4 fL (80.0-100.0); Mean Platelet Volume 11.6; RBC 3.11 m/uL (3.80-5.40); RDW 17.6 % (11.5-15.5); WBC 8.4 k/uL (3.8-10.6)
[2020-03-21 05:18] LABS: Platelet Count 32 k/uL (150-450)
[2020-03-21 05:19] LABS: Albumin 2.3 g/dL (3.5-5.0); Calcium 6.8 mg/dL (8.4-10.2); Potassium 3.8 mmol/L (3.5-5.1); Total Bilirubin 0.6 mg/dL (0.2-1.3); Total Protein 5.3 g/dL (6.3-8.2)
[2020-03-21 06:14] LABS: Band Neutrophils % 4 %; Lymphocytes # (M) 0.25 k/uL (1.0-4.8); Monocytes # (M) 0.17 k/uL (0-1.0); Neutrophils % (M) 91 %; Nucleated Red Blood Cells 0 /100 WBC (0-0); Total Cells Counted 100
[2020-03-21 06:49] LABS: Glucose,Whole Blood 92 mg/dL (75-99)
[2020-03-21] MEDS: PANTOPRAZOLE 40 MG TABLET PO SCH ×2 (06:49→07:55)
[2020-03-21] MEDS: INSULIN ASPART (NovoLOG) 100 UNIT/ML VIAL SQ SCH ×4 (06:49→20:31)
--- NOTE | 2020-03-21 07:35 | XR ---
EXAMINATION TYPE: XR chest 1V portable DATE OF EXAM: 03/21/2020 COMPARISON: Chest x-ray 03/20/2020 HISTORY: Chest x-ray 03/20/2020 TECHNIQUE: Single frontal view of the chest is obtained. FINDINGS: There is no significant interval change. There are overlying cardiac leads. Multiple scler otic foci present within the ribs. There is underlying emphysema. IMPRESSION: Stable diffuse bilateral airspace disease.
[2020-03-21] MEDS: AZTREONAM 1 GM in SODIUM CHLORIDE 0.9% 50 ML IVPB SCH (07:53)
[2020-03-21] MEDS: AZITHROMYCIN 500 MG in SODIUM CHLORIDE 0.9% 250 ML IVPB SCH (07:54)
[2020-03-21] MEDS: FLUCONAZOLE 100 MG TAB PO SCH (09:00)
[2020-03-21] MEDS: methylPREDNISolone SOD SUCCI 40 MG/ML 1 ML VIAL IV SCH (09:00)
[2020-03-21] MEDS: MEROPENEM 1 GM in SODIUM CHLORIDE 0.9% 100 ML IVPB SCH ×2 (09:00→21:48)
[2020-03-21] MEDS: SYMBICORT 160-4.5 MCG INHALER INHALATION SCH ×2 (09:30→20:24)
[2020-03-21] MEDS: IPRATROPIUM-ALBUTEROL 3 ML NEB INHALATION SCH ×4 (09:30→20:24)
--- NOTE | 2020-03-21 11:27 | P.PN ---
Subjective 69-year-old patient of Dr. Villalobos. Chronic stable medical conditions include paroxysmal atrial flutter fibrillation, , CHF with an EF of 50-55%, tricuspid and mitral regurgitation, secondary pulmonary hypertension, chronic kidney disease stage IV, hypertension, hyperlipidemia,. Patient also being treated for multiple myeloma. on REVLIMID Patient presented with shortness of breath confusion cough congestion. Admitted with right upper lobe pneumonia, acute delirium. Started on IV aztreonam and azithromycin. Developed black tarry stools. Dropped hemoglobin. 1 unit of blood given. Patient desaturated. Moved to the ICU on March 11. Intubated March 14-placed on IV levo fed propofol antibiotics changed to IV meropenem. bronchoscopy done by Dr. Hart[March 16]-thick philomena, secretions obtained. Extubated March 19 [id number] today. Often drips. Tired. Congested. Awake. 03/20/2020 Patient is presently on 2 L of oxygen clinically doing well feeling much better. Patient wheezing improved. 03/21/2020 Patient is presently on 2 L of onset and being transferred out of ICU creatinine continued to improve and presently 1.3 Constitutional: Denied any fatigue denied any fever. Cardio vascular: denied any chest pain, palpitations Gastrointestinal denied any nausea vomiting Pulmonary: Denied any shortness of breath cough Neurologic denied any new focal deficits All inpatient medications were reviewed and appropriate changes in these medications as dictated in the interval history and assessment and plan. Objective - Vital Signs Vital signs: Vital Signs Temp 97.4 F L 03/21/20 08:00 Pulse 68 03/21/20 08:00 Resp 14 03/21/20 08:00 BP 131/65 03/21/20 08:00 Pulse Ox 97 03/21/20 08:00 Intake & Output 03/20/20 03/21/20 03/21/20 18:59 06:59 18:59 Intake Total 419.600 220 Output Total 756 850 Balance -336.400 -630 Weight 46.9 kg 47.5 kg Intake: IV 304 220 KVO 180 120 Meropenem 1 gm In Sodium 100 100 Chloride 0.9% 100 ml @ 33 .3 mls/hr IVPB Q12HR [facility] Rx#:[id number] pressure bag 24 Intake, IV Titration 115.600 Amount Immune Globulin ( 115.600 Gammagard) 30 gm In Empty Bag 1 bag @ Per Protocol IV .Q0M ONE Rx#: [id number] Output: Urine 556 750 Stool 100 100 Emesis 100 Other: Voiding Method Indwelling Catheter Indwelling Catheter Indwelling Catheter ABP, PAP, CO, CI - Last Documented Arterial Blood Pressure 148/48 - Exam PHYSICAL EXAMINATION: GENERAL: The patient is alert and oriented x3, not in any acute distress. Thin built HEENT: Pupils are round and equally reacting to light. EOMI. No scleral icterus. No conjunctival pallor. Normocephalic, atraumatic. No pharyngeal erythema. No thyromegaly. CARDIOVASCULAR: S1 and S2 present. No murmurs, rubs, or gallops. PULMONARY: Bilatral rhonchi ABDOMEN: Soft, nontender, nondistended, normoactive bowel sounds. No palpable organomegaly. MUSCULOSKELETAL: No joint swelling or deformity. EXTREMITIES: No cyanosis, clubbing, or pedal edema. NEUROLOGICAL: Gross neurological examination did not reveal any focal deficits. SKIN: No rashes. - Labs CBC & Chem 7: 03/21/20 04:40 03/21/20 04:40 Labs: Abnormal Lab Results - Last 24 Hours (Table) 03/20/20 03/20/20 03/21/20 Range/Units 11:58 20:23 04:40 RBC 3.11 L (3.80-5.40) m/uL Hgb 9.3 L (11.4-16.0) gm/dL Hct 28.1 L (34.0-46.0) % RDW 17.6 H (11.5-15.5) % Plt Count 32 L (150-450) k/uL Neutrophils # (Manual) 7.90 H (1.3-7.7) k/uL Lymphocytes # (Manual) 0.25 L (1.0-4.8) k/uL Chloride (98-107) mmol/L BUN (7-17) mg/dL Creatinine (0.52-1.04) mg/dL POC Glucose (mg/dL) 104 H 105 H (75-99) mg/dL Calcium (8.4-10.2) mg/dL Total Protein (6.3-8.2) g/dL Albumin (3.5-5.0) g/dL 03/21/20 Range/Units 04:40 RBC (3.80-5.40) m/uL Hgb (11.4-16.0) gm/dL Hct (34.0-46.0) % RDW (11.5-15.5) % Plt Count (150-450) k/uL Neutrophils # (Manual) (1.3-7.7) k/uL Lymphocytes # (Manual) (1.0-4.8) k/uL Chloride 114 H (98-107) mmol/L BUN 52 H (7-17) mg/dL Creatinine 1.39 H (0.52-1.04) mg/dL POC Glucose (mg/dL) (75-99) mg/dL Calcium 6.8 L (8.4-10.2) mg/dL Total Protein 5.3 L (6.3-8.2) g/dL Albumin 2.3 L (3.5-5.0) g/dL Microbiology - Last 24 Hours (Table) 03/16/20 09:30 Fungal Culture - Preliminary Bronchial Brushings - Right Nicolle albicans Assessment and Plan Plan: Acute on chronic hypoxic and hypercapnic respiratory failure: Secondary to pneumonia and COPD exacerbation patient was extubated on 03/19/2020 lymph nodes of arts and being transferred out of ICU, Covarrubias catheter will be more -Right upper lobe pneumonia, patient is on meropenem organism is unknown patient has Nicolle in the sputum as well patient is on meropenem because of multiple ALLERGIES. For Nicolle in the sputum patient was started on the antifungal by infectious disease -Paroxysmal atrial flutter and fibrillation-with rapid ventricular admission presently sinus rhythm -Anemia multifactorial including that of chronic disease including multiple myeloma - COPD exacerbation in a ex-smoker, -Chronic congestive heart failure from systolic and diastolic dysfunction EF 50- 55% patient is not in acute exacerbation -Moderate tricuspid and severe mitral regurgitation, nontraumatic -Severe secondary pulmonary hypertension secondary to COPD -Multiple myeloma on chemotherapy -Chronic kidney disease secondary to multiple myeloma stage IV and chronic interstitial nephropathy -Essential hypertension -Hyperlipidemia -Severe protein calorie malnutrition due to poor oral intake. BMI 14.4 -Chronic medical debility -Multiple old rib fractures due to multiple myeloma -Acute kidney injury possibly combination of ATN and prerenal-improved co rrelation present creatinine is 1.3, this is a actually better than her baseline
--- NOTE | 2020-03-21 12:11 | P.PN ---
Subjective Progress Note Date: 03/21/20 Principal diagnosis: Acute hypoxemic respiratory failure. 69-year-old female admitted on March 08. Her initial diagnosis was atrial fibrillation with RVR, black stools, and pneumonia. She was initially admitted to the stepdown unit, and came to the intensive care unit on March 11. Because of worsening respiratory status and hypoxemia, she was intubated on 03/14/2020. Yesterday, we did bronchoscopy, focusing on the right upper lobe. A BAL was performed at the bedside. Current results are pending. She remains on the mechanical ventilator. In addition, the patient had the EGD done on March 16. It was negative for acute bleeding or any significant pathology. Her current ventilator settings are the volume assist control mode, rate 24, tidal volume 350, FiO2 40%, and PEEP of 8. Her arterial blood gases show a PaO2 of 102, PaCO2 37, and a pH is 7.48. In addition, the patient is receiving normal saline at KVO, propofol at 60 g per kilogram per minute, norepinephrine, which is been weaned off, and vital high protein at a rate of 21 mL an hour which is goal. Today, we will attempt a daily interruption of sedation and a spontaneous breathing trial, with a PSV of 8 and CPAP of 5. Progress note dated 03/18/2020. 69-year-old female admitted on March 08 with a diagnosis of atrial fibrillation with RVR, lactulose, and pneumonia. She was initially admitted to the stepdown unit and came to the intensive care unit on March 11. Because of worsening hy poxemic respiratory failure, the patient was intubated and mechanically ventilated on 03/14/2020, and remains on mechanical ventilator. She had an EGD done on March 16 and likewise, we did bronchoscopy and BAL, right upper lobe, on March 16. Currently, cultures are pending. She remains on the mechanical ventilator, on the volume assist control mode, rate 24, tidal volume 350, FiO2 40%, and PEEP of 8. She's getting saline at 10 mL an hour. She is also getting vital high protein at 21 mL an hour which is goal. This morning, the nurses turn the propofol off. She was previously an propofol at 30 mcg/kg/m. We placed her on pressure support of 8 cm water, and CPAP of 5 cm water, but un fortunately, we noted Jose López respirations. Hence, we placed her back on the mechanical ventilator. We will use sedation only as needed. She's not quite ready to be extubated. Her arterial blood gases today showed a pO2 of 138, a pCO2 of 40, and a pH is 7.47. This blood gases consistent with a mild metabolic alkalosis. Progress note dated 03/19/2020. 69-year-old female admitted on March 08 with a diagnosis of atrial fibrillation, with rapid ventricular response, black stools, and pneumonia. She was initially admitted to the stepdown unit and came to the intensive care unit on March 11. Because of worsening hypoxemic respiratory failure, the patient was intubated and mechanically ventilated on March 14. This morning, she remains on the mechanical ventilator. Yesterday, we did a daily interruption of sedation and a spontaneous breathing trial, and we noted that she had an irregular breathing pattern with periods of crescendo/decrescendo breathing, and intermittent apnea. Today, on her daily interruption of sedation and spontaneous breathing trial, the patient's pattern is much more regular. She remains on the volume assist control modality, rate of 24, tidal volume of 350, FiO2 40%, and PEEP of 5. Arterial blood gases show a PaO2 of 145, a PaCO2 36, and a pH is 7.49. Today's weaning parameters are excellent, and she had a positive cuff leak. Her rapid shallow breathing index was 72. She is currently on dexmedetomidine, at 0.5 mics per kilogram per hour, saline at 30 mL an hour, and vital high protein at 33 with a goal of 33 mL an hour. Because today's respiratory pattern is much more stable, and she is not demonstrating Jose- López respirations, she can be extubated today. We will keep her nothing by mouth for 6 hours. After that point, the patient can begin with sips of water chips of ice, and then the diet can be advanced. The dexmedetomidine was reduced to 0.25 prior to her spontaneous breathing trial today. Progress note dated 03/20/2020. 69-year-old female who was successfully extubated yesterday, 03/19/2020. Currently, she is on O2 2 L by nasal cannula, and saline at KVO. We will advance her diet today. I think she can go out to the general medical floor with telemetry. In addition, we will discontinue her arterial line. Her chest x-ray is somewhat improved. Clinically she is doing much better. She's awake and alert. Yesterday, did a daily eruption sedation with a spontaneous breathing trial, on pressure support of 5, and CPAP of 5. Her weaning parameters, cuff leak, and rapid shallow breathing index were all great. Hence she was successfully extubated. Currently, she is laying in bed. She looks very comfortable. Apparently I do see her in the office for her COPD. Her white blood count is 7.1, he will 9.8, hematocrit 29.6, and platelet count is 34,000. Sodium is 143, potassium 3.9, chloride 113, CO2 26. Anion gap is 4. BUN and creatinine were 61 and 1.51. Microbiology is negative. Her medications are reviewed. Progress note dated 03/21/2020. 69-year-old female successfully extubated on 03/19/2020. The patient looks much better today. She is on 2 L nasal cannula. The patient's getting saline at KVO. She's awake and alert. She is not having any respiratory or hemodynamic issues and the patient could be transferred to a general medical floor. The patient's chest x-ray shows a persistent infiltrate in the right upper lobe, but in our opinion, the chest x-ray is improving. Bronchoscopy and BAL done on March 16, is failing to reveal any specific bacteria. The patient also had an EGD on March 16, which showed no significant pathology in the upper gastrointestinal tract. The patient's white count is 8.4, hemoglobin 9.3, hematocrit 28.1, and platelet count 99611. Sodium is 143, potassium 3.8, chlorides are 114, and bicarbonate concentration is 26. Anion gap is 3, BUN is 52, and creatinine is 1.39. Objective - Vital Signs Vital signs: Vital Signs Temp 97.4 F L 03/21/20 08:00 Pulse 68 03/21/20 08:00 Resp 14 03/21/20 08:00 BP 131/65 03/21/20 08:00 Pulse Ox 97 03/21/20 08:00 Intake & Output 03/20/20 03/21/20 03/21/20 18:59 06:59 18:59 Intake Total 419.600 220 Output Total 756 850 Balance -336.400 -630 Weight 46.9 kg 47.5 kg Intake: IV 304 220 KVO 180 120 Meropenem 1 gm In Sodium 100 100 Chloride 0.9% 100 ml @ 33 .3 mls/hr IVPB Q12HR [facility] Rx#:[id number] pressure bag 24 Intake, IV Titration 115.600 Amount Immune Globulin ( 115.600 Gammagard) 30 gm In Empty Bag 1 bag @ Per Protocol IV .Q0M ONE Rx#: [id number] Output: Urine 556 750 Stool 100 100 Emesis 100 Other: Voiding Method Indwelling Catheter Indwelling Catheter Indwelling Catheter ABP, PAP, CO, CI - Last Documented Arterial Blood Pressure 148/48 - Exam No acute distress, Alert and oriented 3. The patient's on nasal oxygen at 2 L/m. HEENT examination is grossly unremarkable. Endotracheal tube and nasogastric tube have been removed. Neck supple. Full range of motion. No adenopathy thyromegaly or neck vein di stention. Cardiovascular examination reveals regular rhythm rate. S1-S2 normal. No S3 or S4. No discernible murmur noted. Heart sounds are distant. Heart rate is 68 bpm. Lungs reveal coarse bilateral expiratory rhonchi. Bibasilar crackles noted. Breath sounds equal bilaterally. Breath sounds are diminished throughout. Abdomen soft bowel sounds are heard. No masses or tenderness. Extremities are intact. No cyanosis clubbing or edema. Skin is without rash or lesion. Neurologic examination is brief but nonfocal. - Labs CBC & Chem 7: 03/21/20 04:40 03/21/20 04:40 Labs: Abnormal Lab Results - Last 24 Hours (Table) 03/20/20 03/21/20 03/21/20 Range/Units 20:23 04:40 04:40 RBC 3.11 L (3.80-5.40) m/uL Hgb 9.3 L (11.4-16.0) gm/dL Hct 28.1 L (34.0-46.0) % RDW 17.6 H (11.5-15.5) % Plt Count 32 L (150-450) k/uL Neutrophils # (Manual) 7.90 H (1.3-7.7) k/uL Lymphocytes # (Manual) 0.25 L (1.0-4.8) k/uL Chloride 114 H (98-107) mmol/L BUN 52 H (7-17) mg/dL Creatinine 1.39 H (0.52-1.04) mg/dL POC Glucose (mg/dL) 105 H (75-99) mg/dL Calcium 6.8 L (8.4-10.2) mg/dL Total Protein 5.3 L (6.3-8.2) g/dL Albumin 2.3 L (3.5-5.0) g/dL Microbiology - Last 24 Hours (Table) 03/16/20 09:30 Fungal Culture - Preliminary Bronchial Brushings - Right Nicolle albicans Assessment and Plan Assessment: Acute hypoxemic respiratory failure, secondary to community acquired pneumonia, requiring intubation and mechanical ventilation on 03/14/2020, and successful extubation on 03/19/2020. Status post bronchoscopy and BAL, right upper lobe, 03/16/2020. Status post EGD, on 03/16/2020, without any significant bleeding or active pat hology. Acute diastolic congestive heart failure. Multiple myeloma by history. History of acute kidney injury. Chronic obstructive pulmonary disease. Stage III chronic kidney disease. Paroxysmal atrial fibrillation. History of cerebrovascular accident. History of essential hypertension. Hyperlipidemia. Acute on chronic anemia. Plan: Plan dated 03/21/2020. Currently, the patient is doing well. The patient's hemodynamic status and respiratory status are stable. The patient's on 2 L nasal cannula. She is getting saline at KVO. In my opinion, the patient is stable to transfer to a general medical floor. Her chest x-ray shows improvement particularly in the right upper lobe. Her medications are reviewed. Unnecessary medications are discontinued. We will continue to follow her. We recommend deep breathing coughing clearing secretions, and hourly use of the incentive spirometer. She remains on updrafts with albuterol soft and ipratropium bromide, as well as Symbicort. Her Solu-Medrol will be discontinued in favor of a small dose of prednisone. Time with Patient: Greater than 30
[2020-03-21 13:07] LABS: Glucose,Whole Blood 90 mg/dL (75-99)
[2020-03-21] MEDS: SODIUM BICARBONATE TAB 650 MG TAB PO SCH ×2 (13:45→21:47)
[2020-03-21] MEDS: METOPROLOL TARTRATE 25 MG TAB PO SCH ×2 (13:45→21:47)
[2020-03-21] MEDS: SERTRALINE 100 MG TAB PO SCH (13:45)
[2020-03-21] MEDS: CALCIUM CARB-VIT D 500 MG-5 MCG TAB PO SCH (13:46)
[2020-03-21 16:56] LABS: Glucose,Whole Blood 87 mg/dL (75-99)
--- NOTE | 2020-03-21 17:25 | PN ---
PROGRESS NOTE DATE OF SERVICE: 03/21/2020 REASON FOR FOLLOWUP: Pneumonia. INTERVAL HISTORY: The patient is currently afebrile. Patient has been moved out of the ICU. The patient is breathing comfortably, currently on room air. The patient denies having any chest pain. No shortness of breath. Occasional cough. No abdominal pain. No diarrhea. PHYSICAL EXAMINATION: Blood pressure 155/68 with a pulse of 61. Temperature is 97.4. She is 99% on room air. General description is an elderly female lying in bed in no distress. Respiratory system: Unlabored breathing with decreased intensity in breath sounds in the base, with no wheeze. Heart S1, S2. Regular rate and rhythm. Abdomen soft, no tenderness. LABS: Hemoglobin 9.8, white count 8.4, BUN of 52, creatinine 1.39. DIAGNOSTIC IMPRESSION AND PLAN: Patient with pneumonia in this patient who does have MULTIPLE ANTIBIOTIC ALLERGIES. Patient is currently covered with meropenem to continue to finish a course of therapy. Continue supportive care. MMODL / IJN: [id number] /
[2020-03-21 20:01] LABS: Glucose,Whole Blood 129 mg/dL (75-99)
[2020-03-21 20:29] LABS: Glucose,Whole Blood 120 mg/dL (75-99)
[2020-03-21] MEDS ORDERED: methylPREDNISolone SOD SUCCI 40 MG/ML 1 ML VIAL IV SCH (21:00)
[2020-03-21] MEDS: LATANOPROST 0.005% OPHTH DROPS 2.5 ML BTL BOTH EYES SCH (21:47)
[2020-03-22] MEDS: IPRATROPIUM-ALBUTEROL 3 ML NEB INHALATION SCH ×4 (07:10→20:09)
[2020-03-22] MEDS: SYMBICORT 160-4.5 MCG INHALER INHALATION SCH ×2 (07:10→20:08)
[2020-03-22 07:21] LABS: Glucose,Whole Blood 85 mg/dL (75-99)
[2020-03-22] MEDS: INSULIN ASPART (NovoLOG) 100 UNIT/ML VIAL SQ SCH ×4 (07:22→20:53)
[2020-03-22] MEDS: PANTOPRAZOLE 40 MG TABLET PO SCH (08:01)
[2020-03-22] MEDS: MEROPENEM 1 GM in SODIUM CHLORIDE 0.9% 100 ML IVPB SCH ×2 (08:17→19:55)
[2020-03-22] MEDS ORDERED: predniSONE 20 MG TAB PO SCH (09:00)
[2020-03-22 09:39] LABS: African American GFR (CKD) 44.6 (60.0-200.0); Anion Gap 7.5 mmol/L (4.00-12.00); Calcium 7.2 mg/dL (8.7-10.3); Carbon Dioxide 23.5 mmol/L (21.6-31.8); Non-African American GFR(CKD) 38.5 (60.0-200.0); Potassium 3.4 mmol/L (3.5-5.5)
[2020-03-22] MEDS ORDERED: Potassium Replacement Protocol 1 EACH MISC MISCELLANE PRN (10:17)
[2020-03-22] MEDS: CALCIUM CARB-VIT D 500 MG-5 MCG TAB PO SCH (10:23)
[2020-03-22] MEDS: POTASSIUM CHLORIDE ER 20 MEQ TAB.ER PO SCH ×2 (10:23→12:16)
[2020-03-22 11:38] LABS: Glucose,Whole Blood 138 mg/dL (75-99)
--- NOTE | 2020-03-22 12:01 | P.PN ---
Subjective 69-year-old patient of Dr. Villalobos. Chronic stable medical conditions include paroxysmal atrial flutter fibrillation, , CHF with an EF of 50-55%, tricuspid and mitral regurgitation, secondary pulmonary hypertension, chronic kidney disease stage IV, hypertension, hyperlipidemia,. Patient also being treated for multiple myeloma. on REVLIMID Patient presented with shortness of breath confusion cough congestion. Admitted with right upper lobe pneumonia, acute delirium. Started on IV aztreonam and azithromycin. Developed black tarry stools. Dropped hemoglobin. 1 unit of blood given. Patient desaturated. Moved to the ICU on March 11. Intubated March 14-placed on IV levo fed propofol antibiotics changed to IV meropenem. bronchoscopy done by Dr. Hart[March 16]-thick philomena, secretions obtained. Extubated March 19 [id number] today. Often drips. Tired. Congested. Awake. 03/20/2020 Patient is presently on 2 L of oxygen clinically doing well feeling much better. Patient wheezing improved. 03/21/2020 Patient is presently on 2 L of onset and being transferred out of ICU creatinine continued to improve and presently 1.3 03/22/2020 Patient the creatinine remains stable remains untreated is oxygen. Constitutional: Denied any fatigue denied any fever. Cardio vascular: denied any chest pain, palpitations Gastrointestinal denied any nausea vomiting Pulmonary: Denied any shortness of breath cough Neurologic denied any new focal deficits All inpatient medications were reviewed and appropriate changes in these medications as dictated in the interval history and assessment and plan. Objective - Vital Signs Vital signs: Vital Signs Temp 97.4 F L 03/22/20 10:53 Pulse 70 03/22/20 11:17 Resp 18 03/22/20 10:53 BP 169/81 03/22/20 10:53 Pulse Ox 96 03/22/20 10:53 Intake & Output 03/21/20 03/22/20 03/22/20 18:59 06:59 18:59 Intake Total 590 Balance 590 Weight 47 kg Intake: Oral 590 Other: Voiding Method Indwelling Catheter Bedpan Bedpan Diaper Diaper Incontinent # Voids 2 # Bowel Movements 1 ABP, PAP, CO, CI - Last Documented Arterial Blood Pressure 148/48 - Exam PHYSICAL EXAMINATION: GENERAL: The patient is alert and oriented x3, not in any acute distress. Thin built HEENT: Pupils are round and equally reacting to light. EOMI. No scleral icterus. No conjunctival pallor. Normocephalic, atraumatic. No pharyngeal erythema. No thyromegaly. CARDIOVASCULAR: S1 and S2 present. No murmurs, rubs, or gallops. PULMONARY: Bilatral rhonchi ABDOMEN: Soft, nontender, nondistended, normoactive bowel sounds. No palpable organomegaly. MUSCULOSKELETAL: No joint swelling or deformity. EXTREMITIES: No cyanosis, clubbing, or pedal edema. NEUROLOGICAL: Gross neurological examination did not reveal any focal deficits. SKIN: No rashes. - Labs CBC & Chem 7: 03/21/20 04:40 03/22/20 05:37 Labs: Abnormal Lab Results - Last 24 Hours (Table) 03/21/20 03/21/20 03/22/20 Range/Units 19:57 20:27 05:37 Potassium 3.4 L (3.5-5.5) mmol/L Chloride 114 H (96-109) mmol/L BUN 49.0 H (9.0-27.0) mg/dL Est GFR (CKD-EPI)AfAm 44.6 L (60.0-200.0) Est GFR (CKD-EPI)NonAf 38.5 L (60.0-200.0) BUN/Creatinine Ratio 35.00 H (12.00-20.00) Ratio POC Glucose (mg/dL) 129 H 120 H (75-99) mg/dL Calcium 7.2 L (8.7-10.3) mg/dL 03/22/20 Range/Units 11:31 Potassium (3.5-5.5) mmol/L Chloride (96-109) mmol/L BUN (9.0-27.0) mg/dL Est GFR (CKD-EPI)AfAm (60.0-200.0) Est GFR (CKD-EPI)NonAf (60.0-200.0) BUN/Creatinine Ratio (12.00-20.00) Ratio POC Glucose (mg/dL) 138 H (75-99) mg/dL Calcium (8.7-10.3) mg/dL Assessment and Plan Plan: Acute on chronic hypoxic and hypercapnic respiratory failure: Secondary to pneumonia and COPD exacerbation patient was extubated on 03/19/2020 lymph nodes of arts and being transferred out of ICU, Covarrubias catheter will be more -Right upper lobe pneumonia, patient is on meropenem organism is unknown patient has Nicolle in the sputum as well patient is on meropenem because of multiple ALLERGIES. For Nicolle in the sputum patient was started on the antifungal by infectious disease -Paroxysmal atrial flutter and fibrillation-with rapid ventricular admission presently sinus rhythm -Anemia multifactorial including that of chronic disease including multiple myeloma - COPD exacerbation in a ex-smoker, -Chronic congestive heart failure from systolic and diastolic dysfunction EF 50- 55% patient is not in acute exacerbation -Moderate tricuspid and severe mitral regurgitation, nontraumatic -Severe secondary pulmonary hypertension secondary to COPD -Multiple myeloma on chemotherapy -Chronic kidney disease secondary to multiple myeloma stage IV and chronic interstitial nephropathy -Essential hypertension -Hyperlipidemia -Severe protein calorie malnutrition due to poor oral intake. BMI 14.4 -Chronic medical debility -Multiple old rib fractures due to multiple myeloma -Acute kidney injury possibly combination of ATN and prerenal-improved correlation present creatinine is 1.3, this is a actually better than her baseline
[2020-03-22] MEDS: SERTRALINE 100 MG TAB PO SCH (12:15)
[2020-03-22] MEDS: METOPROLOL TARTRATE 25 MG TAB PO SCH ×2 (12:15→20:56)
[2020-03-22] MEDS: SODIUM BICARBONATE TAB 650 MG TAB PO SCH ×2 (12:18→20:56)
--- NOTE | 2020-03-22 14:49 | P.PN ---
Subjective Progress Note Date: 03/22/20 Principal diagnosis: Anemia, right-sided chest discomfort, shortness of breath This is a very pleasant 69-year-old female admitted on March 08, 2020. She has a history of atrial fibrillation/flutter, congestive heart failure, chronic obstructive pulmonary disease with chronic hypoxic respiratory failure, CVA/TIA, hypertension, hyperlipidemia, rheumatoid arthritis, COPD with previous chronic tobacco dependence. She also has a history of multiple myeloma and is currently on Revlimid. Her initial diagnosis this admission was atrial fibrillation with RVR, black stools, and pneumonia. She was initially admitted to the stepdown unit, and came to the intensive care unit on March 11. She did require 3 units of packed red blood cells for her anemia. Because of worsening respiratory status and hypoxemia, she was intubated on 03/14/2020 and successfully extubated on 03/19/2020. She had undergone bronchoscopy with BAL of the right upper lobe. Cultures positive for Nicolle only. She is seen today 03/22/2020 on the regular medical floor. Presently she is sitting up in bed, awake and alert in no acute distress. Maintaining good O2 saturations in the mid 90s on 3 L/m per nasal cannula. She's been afebrile. Sodium 145. Potassium 3.4. Creatinine 1.4. Remains on Symbicort, DuoNeb inhalations, prednisone. Antibiotics in the form of meropenem. Objective - Vital Signs Vital signs: Vital Signs Temp 97.4 F L 03/22/20 10:53 Pulse 70 03/22/20 11:17 Resp 18 03/22/20 10:53 BP 169/81 03/22/20 10:53 Pulse Ox 96 03/22/20 10:53 Intake & Output 03/21/20 03/22/20 03/22/20 18:59 06:59 18:59 Intake Total 590 Balance 590 Weight 47 kg Intake: Oral 590 Other: Voiding Method Indwelling Catheter Bedpan Bedpan Diaper Diaper Incontinent # Voids 2 # Bowel Movements 1 ABP, PAP, CO, CI - Last Documented Arterial Blood Pressure 148/48 - Exam GENERAL EXAM: Alert, very pleasant, 61-year-old frail looking female patient on 3 L of oxygen with pulse ox of 96% comfortable in no apparent distress. HEAD: Normocephalic/atraumatic. EYES: Normal reaction of pupils, equal size. Conjunctiva pink, sclera white. NOSE: Clear with pink turbinates. THROAT: No erythema or exudates. NECK: No masses, no JVD, no thyroid enlargement, no adenopathy. CHEST: No chest wall deformity. Symmetrical expansion. LUNGS: Equal air entry with diminished breath over right upper lobe, no wheeze, rhonchi or dullness. CVS: Regular rate and rhythm, normal S1 and S2, no gallops, no murmurs, no rubs ABDOMEN: Soft, nontender. No hepatosplenomegaly, normal bowel sounds, no guarding or rigidity. EXTREMITIES: No clubbing, no edema, no cyanosis, 2+ pulses and upper and lower extremities. MUSCULOSKELETAL: Muscle strength and tone normal. SPINE: No scoliosis or deformity SKIN: No rashes CENTRAL NERVOUS SYSTEM: No focal deficits, tone is normal in all 4 extremities. PSYCHIATRIC: Alert and oriented -3. Appropriate affect. Intact judgment and insight. - Labs CBC & Chem 7: 03/21/20 04:40 03/22/20 05:37 Labs: Abnormal Lab Results - Last 24 Hours (Table) 03/21/20 03/21/20 03/22/20 Range/Units 19:57 20:27 05:37 Potassium 3.4 L (3.5-5.5) mmol/L Chloride 114 H (96-109) mmol/L BUN 49.0 H (9.0-27.0) mg/dL Est GFR (CKD-EPI)AfAm 44.6 L (60.0-200.0) Est GFR (CKD-EPI)NonAf 38.5 L (60.0-200.0) BUN/Creatinine Ratio 35.00 H (12.00-20.00) Ratio POC Glucose (mg/dL) 129 H 120 H (75-99) mg/dL Calcium 7.2 L (8.7-10.3) mg/dL 03/22/20 Range/Units 11:31 Potassium (3.5-5.5) mmol/L Chloride (96-109) mmol/L BUN (9.0-27.0) mg/dL Est GFR (CKD-EPI)AfAm (60.0-200.0) Est GFR (CKD-EPI)NonAf (60.0-200.0) BUN/Creatinine Ratio (12.00-20.00) Ratio POC Glucose (mg/dL) 138 H (75-99) mg/dL Calcium (8.7-10.3) mg/dL Assessment and Plan Assessment: 1 Acute hypoxic respiratory failure requiring intubation and mechanical ventilation from 03/14 - 03/19/2020 secondary to an acute right upper lung the pneumonia, status post bronchoscopy with BAL 2 Right-sided atypical chest pain secondary to above 3 Leukocytosis secondary to above 4 Anemia, current hemoglobin 9.3, received 3 units of packed red blood cells this admission 5 Acute renal failure, covered, current creatinine 1.4 6 Lactic acidosis secondary to above, recovered 7 Multiple myeloma with abnormal uptake associated sedated with the patient's right lower lobe lung mass, currently on Revlimid 8 Chronic obstructive pulmonary disease with previous chronic tobacco dependence 9 Acute on chronic kidney disease, stage IIIIV 10 History of diastolic congestive heart failure 11 Paroxysmal atrial fibrillation/flutter with RVR, currently in sinus rhythm and maintained on Eliquis 12 Previous history of CVA 13 Hypertension 14 Hyperlipidemia 15 Chronic anxiety Plan: The patient was seen and evaluated by Dr. Hart She is improved from the pulmonary standpoint and on 3 L nasal cannula Continue the current treatment plan Increase her activity as tolerated May need subacute rehabilitation We'll continue to follow and make further recommendations based on her clinical status I, the cosigning physician, performed a history & physical examination of the patient. Lungs sounds scattered rhonchi more so on the right lung. Maintaining good O2 saturations in the 90s on 3 L/m per nasal cannula. I discussed the assessment and plan of care with my nurse practitioner, Elida Rasheed. I attest to the above note as dictated by her.
[2020-03-22 17:21] LABS: Glucose,Whole Blood 84 mg/dL (75-99)
[2020-03-22 20:19] LABS: Glucose,Whole Blood 100 mg/dL (75-99)
[2020-03-22] MEDS: valACYclovir 500 MG TAB PO SCH (20:56)
[2020-03-22] MEDS: LATANOPROST 0.005% OPHTH DROPS 2.5 ML BTL BOTH EYES SCH (20:59)
--- NOTE | 2020-03-22 22:31 | PN ---
PROGRESS NOTE DATE OF SERVICE: 03/22/2020 REASON FOR FOLLOWUP: Pneumonia. INTERVAL HISTORY: The patient is currently afebrile. The patient is breathing comfortably. The patient denies having any chest pain or shortness of breath. Minimal cough. No nausea. No abdominal pain or diarrhea. PHYSICAL EXAMINATION: Blood pressure 117/77 with a pulse of 74, temperature 98.9. She is 98% on 3 L nasal cannula. General description is a middle-aged female lying in bed in no distress. Respiratory system: Unlabored breathing, decreased breath sounds in the bases. No wheeze. Heart S1, S2. Regular rate and rhythm. Abdomen soft, no tenderness. LABS: BUN of 49, creatinine 1.4. DIAGNOSTIC IMPRESSION AND PLAN: Patient admitted to the hospital with right upper lobe pneumonia in this patient overall improvement and has completed almost 2 week course of IV antibiotic therapy. Will recommend no antibiotic on discharge. Continue supportive care. MMODL / IJN: [id number] /
[2020-03-23 04:11] LABS: Glucose,Whole Blood 136 mg/dL (75-99)
[2020-03-23] MEDS ORDERED: FUROSEMIDE 10 MG/ML 10 ML VIAL IV STA (04:18)
[2020-03-23 04:32] LABS: ABG HCO3 22 mmol/L (21-25); ABG Oxygen Saturation 88.8 % (94-97); ABG PCO2 43 mmHg (35-45); ABG PH 7.32 (7.35-7.45); ABG PO2 61 mmHg (83-108); ABG TCO2 23 mmol/L (19-24); Allen Test Performed? Yes
[2020-03-23] MEDS ORDERED: ALPRAZolam 0.5 MG TAB PO STA (04:50)
--- NOTE | 2020-03-23 04:54 | P.EN ---
A team note Activated at 11 AM. Arrived at the scene shortly after. Reviewed the chart and discussed the case with RN. The patient had reportedly been resting comfortably and had an SpO2 of 98% on 3 L throughout the night. She was subsequently found to be in respiratory distress by the RN, with an SpO2 of 56%. The RN immediately placed the patient on a nonrebreather at 15 L. At time of evaluation, the patient's vitals were 161/84, SpO2 93% on 15 L nonrebreather, pulse 105, and temperature 97.4. Upon examination, elderly patient in respiratory distress, appeared anxious. Cardiovascular examination revealed tachycardia with regular rate and rhythm with no audible murmurs. Lung examination revealed diffuse rales with rhonchi. No wheezing appreciated. Abdomen was soft and nontender. No edema of the extremities was noted. The patient was oriented only to self at time of evaluation. She was moving all extremities with no focal deficits noted. Assessment/plan Acute hypoxic respiratory failure, suspected secondary to flash pulmonary edema -Echocardiogram reviewed, with mild pulmonary hypertension but otherwise unremarkable -Lasix 80 mg IV push ordered -Stat chest x-ray ordered -Primary team notified by the RN -Continue with nonrebreather at this time -Intake and output -Closely monitor the patient -ABG ordered
--- NOTE | 2020-03-23 05:08 | XR ---
EXAM: XR Chest, 1 View CLINICAL HISTORY: shortness of breath TECHNIQUE: Frontal view of the chest. COMPARISON: 03/21/20. FINDINGS/IMPRESSION: Diffuse bilateral airspace disease, right greater than left, interval worsening since prior study, with bilateral small pleural effusions, similar to prior study. No other significant interval change. Continued attention on follow-up is recommended.
[2020-03-23] MEDS ORDERED: propofoL 100 ML IV ONE (05:40)
[2020-03-23] MEDS ORDERED: SUCCINYLCHOLINE CHLORIDE VIAL 200 MG/10 ML VIAL IV ONE (05:45)
[2020-03-23] MEDS ORDERED: ETOMIDATE 2 MG/ML 10 ML VIAL ONE (05:45)
[2020-03-23 05:58] LABS: Glucose,Whole Blood 118 mg/dL (75-99)
[2020-03-23 06:51] LABS: Anisocytosis Slight; HCT 34.3 % (34.0-46.0); HGB 10.7 gm/dL (11.4-16.0); Hypochromasia Marked; MCH 29.4 pg (25.0-35.0); MCV 94.7 fL (80.0-100.0); Mean Platelet Volume 10.7; RBC 3.63 m/uL (3.80-5.40); RDW 17.9 % (11.5-15.5); WBC 32.2 k/uL (3.8-10.6)
--- NOTE | 2020-03-23 07:16 | XR ---
EXAMINATION TYPE: XR chest 1V portable DATE OF EXAM: 03/23/2020 Comparison: 03/23/2020 Clinical History: 69 year-old female follow-up intubation and OG tube. Findings: ET tube is satisfactory. OG tube courses below the diaphragm. Heart upper limits of normal in size. R edemonstrated bilateral sclerotic rib fracture deformities. Dense consolidation persists within the r ight upper lobe with underlying cavitary change. Hyperinflation. Additional diffuse interstitial opac ities with small effusions also persist without significant change. Impression: 1. COPD with continued diffuse interstitial opacities and small effusions. Possible interstitial pulm onary edema. 2. Continued right upper lobe consolidation with underlying cavitary change.
[2020-03-23] MEDS: IPRATROPIUM-ALBUTEROL 3 ML NEB INHALATION SCH ×4 (07:22→19:57)
[2020-03-23 07:24] LABS: Platelet Count 75 k/uL (150-450)
[2020-03-23] MEDS ORDERED: VANCOMYCIN IV PER PHARMACY 1 EACH MISC MISCELLANE PRN (07:58)
--- NOTE | 2020-03-23 08:00 | P.PN ---
Subjective Progress Note Date: 03/23/20 This is a very pleasant 69-year-old female admitted on March 08, 2020. She has a history of atrial fibrillation/flutter, congestive heart failure, chronic obstructive pulmonary disease with chronic hypoxic respiratory failure, CVA/TIA, hypertension, hyperlipidemia, rheumatoid arthritis, COPD with previous chronic tobacco dependence. She also has a history of multiple myeloma and is currently on Revlimid. Her initial diagnosis this admission was atrial fibrillation with RVR, black stools, and pneumonia. She was initially admitted to the stepdown unit, and came to the intensive care unit on March 11. She did require 3 units of packed red blood cells for her anemia. Because of worsening respiratory status and hypoxemia, she was intubated on 03/14/2020 and successfully extubated on 03/19/2020. She had undergone bronchoscopy with BAL of the right upper lobe. Cultures positive for Nicolle only. The patient this morning the chest into the intensive care unit. Apparently overnight the patient was getting progressively more short of breath. He got transferred to the intensive. Earlier this morning and the patient was intubated and placed on a mechanical ventilator. Note that the patient currently is sedated with propofol it is running at 50 g per KG per minute. The patient is on assist control mode of ventilation at the rate of 20 with a tidal volume of 350 and FiO2 of 50% with a PEEP of 5. Current pulse ox is 98%. Peak airway pressures 38. Chest x-ray shows multiple bila teral rib fractures in addition to extensive consolidation of the right is essentially worse compared to her previous chest x-rays. Her white cell count is up to 32. She is currently on IV Merrem. The patient is also chronically on prednisone maintained at a dose of 20 mg by mouth daily. Cardiac rhythm is sinus. She is very much thin and frail and cachectic looking. She has cold sores on her lips and she is currently on Valtrex. Objective - Vital Signs Vital signs: Vital Signs Temp 97.4 F L 03/23/20 04:18 Pulse 72 03/23/20 07:43 Resp 28 H 03/23/20 04:18 BP 127/67 03/23/20 04:18 Pulse Ox 96 03/22/20 22:05 Intake & Output 03/22/20 03/23/20 03/23/20 18:59 06:59 18:59 Intake Total 540 Balance 540 Weight 45 kg Intake: Oral 540 Other: Voiding Method Bedpan Bedpan Diaper Diaper Incontinent Incontinent # Voids 2 # Bowel Movements 1 ABP, PAP, CO, CI - Last Documented Arterial Blood Pressure 148/48 - Exam GENERAL EXAM: Alert, very pleasant, 61-year-old frail looking female patient on 3 L of oxygen with pulse ox of 96% comfortable in no apparent distress. HEAD: Normocephalic/atraumatic. EYES: Normal reaction of pupils, equal size. Conjunctiva pink, sclera white. NOSE: Clear with pink turbinates. THROAT: No erythema or exudates. NECK: No masses, no JVD, no thyroid enlargement, no adenopathy. CHEST: No chest wall deformity. Symmetrical expansion. LUNGS: Equal air entry with diminished breath over right upper lobe, no wheeze, rhonchi or dullness. CVS: Regular rate and rhythm, normal S1 and S2, no gallops, no murmurs, no rubs ABDOMEN: Soft, nontender. No hepatosplenomegaly, normal bowel sounds, no guarding or rigidity. EXTREMITIES: No clubbing, no edema, no cyanosis, 2+ pulses and upper and lower extremities. MUSCULOSKELETAL: Muscle strength and tone normal. SPINE: No scoliosis or deformity SKIN: No rashes CENTRAL NERVOUS SYSTEM: No focal deficits, tone is normal in all 4 extremities. PSYCHIATRIC: Alert and oriented -3. Appropriate affect. Intact judgment and insight. - Labs CBC & Chem 7: 03/23/20 04:53 03/22/20 05:37 Labs: Abnormal Lab Results - Last 24 Hours (Table) 03/22/20 03/22/20 03/22/20 Range/Units 05:37 11:31 20:17 WBC (3.8-10.6) k/uL RBC (3.80-5.40) m/uL Hgb (11.4-16.0) gm/dL RDW (11.5-15.5) % Plt Count (150-450) k/uL ABG pH (7.35-7.45) ABG pO2 (83-108) mmHg ABG O2 Saturation (94-97) % Potassium 3.4 L (3.5-5.5) mmol/L Chloride 114 H (96-109) mmol/L BUN 49.0 H (9.0-27.0) mg/dL Est GFR (CKD-EPI)AfAm 44.6 L (60.0-200.0) Est GFR (CKD-EPI)NonAf 38.5 L (60.0-200.0) BUN/Creatinine Ratio 35.00 H (12.00-20.00) Ratio POC Glucose (mg/dL) 138 H 100 H (75-99) mg/dL Calcium 7.2 L (8.7-10.3) mg/dL 03/23/20 03/23/20 03/23/20 Range/Units 04:09 04:26 04:53 WBC 32.2 H (3.8-10.6) k/uL RBC 3.63 L (3.80-5.40) m/uL Hgb 10.7 L (11.4-16.0) gm/dL RDW 17.9 H (11.5-15.5) % Plt Count 75 L D (150-450) k/uL ABG pH 7.32 L (7.35-7.45) ABG pO2 61 L (83-108) mmHg ABG O2 Saturation 88.8 L (94-97) % Potassium (3.5-5.5) mmol/L Chloride (96-109) mmol/L BUN (9.0-27.0) mg/dL Est GFR (CKD-EPI)AfAm (60.0-200.0) Est GFR (CKD-EPI)NonAf (60.0-200.0) BUN/Creatinine Ratio (12.00-20.00) Ratio POC Glucose (mg/dL) 136 H (75-99) mg/dL Calcium (8.7-10.3) mg/dL 03/23/20 Range/Units 05:38 WBC (3.8-10.6) k/uL RBC (3.80-5.40) m/uL Hgb (11.4-16.0) gm/dL RDW (11.5-15.5) % Plt Count (150-450) k/uL ABG pH (7.35-7.45) ABG pO2 (83-108) mmHg ABG O2 Saturation (94-97) % Potassium (3.5-5.5) mmol/L Chloride (96-109) mmol/L BUN (9.0-27.0) mg/dL Est GFR (CKD-EPI)AfAm (60.0-200.0) Est GFR (CKD-EPI)NonAf (60.0-200.0) BUN/Creatinine Ratio (12.00-20.00) Ratio POC Glucose (mg/dL) 118 H (75-99) mg/dL Calcium (8.7-10.3) mg/dL Assessment and Plan Plan: 1 Acute hypoxic respiratory failure requiring intubation and mechanical ventilation from 03/14 - 03/19/2020 secondary to an acute right upper lung the pneumonia, status post bronchoscopy with BAL. After being extubated, the patient will be admitted to the intensive care unit with worsening hypoxemia respiratory failure. The patient is currently intubated on a mechanical ventilator. Chest x-ray shows extensive consolidation of the right upper lobe. Her previous CAT scan of the chest from 01/10/2020 showed emphysema with upper lobe predominance. There was however some creatinine but opacity in the lung bases bilaterally. Nevertheless, the current findings are quite extensive and the patient developed worsening in the right upper lobe pulmonary cavitary consolidation. Currently intubated on a mechanical ventilator. 2 Right-sided atypical chest pain secondary to above 3 Leukocytosis secondary to above 4 Anemia, current hemoglobin 10, received 3 units of packed red blood cells during the course of this admission 5 Acute renal failure, covered, current creatinine 1.4 6 Lactic acidosis secondary to above, recovered 7 Multiple myeloma with abnormal uptake associated sedated with the patient's right lower lobe lung mass, currently on Revlimid 8 Chronic obstructive pulmonary disease with previous chronic tobacco dependence 9 Acute on chronic kidney disease, stage IIIIV, and the patient stable creatinine is at 1.4. 10 History of diastolic congestive heart failure 11 Paroxysmal atrial fibrillation/flutter with RVR, currently in sinus rhythm and maintained on Eliquis, currently off anticoagulation because of history of bleeding. Her current rhythm is sinus. 12 Previous history of CVA 13 Hypertension 14 Hyperlipidemia 15 Chronic anxiety Plan The patient most likely has a recurrent pneumonia. Consider aspiration. Consider hospital-acquired pneumonia. I'm going to continue the Merrem for now. Add vancomycin. Add Eraxis. Repeat bronchoscopy and obtain another lavage of the right upper lobe. Start the patient and enteral feeding for nutritional support IV fluids in the form of normal saline at the rate of 75 mL an hour Use norepinephrine infusion if needed should the patient developed hypotension Monitor renal function Discontinue the prednisone put the patient on 60 mg of IV Solu Medrol every 8 hours The patient has a PICC line in the left upper extremity and an art line in the right radial artery has been inserted keep the patient sedated with propofol which is running at 50 g per KG / minutes. Monitor the gases Monitor hemoglobin blood culture Condition is critical and will continue to follow make further recommendation. Critical care evaluation, more than 30 minutes. Time with Patient: Greater than 30
[2020-03-23] MEDS ORDERED: VANCOMYCIN 750 MG in SODIUM CHLORIDE 0.9% 250 ML IVPB ONE (08:15)
[2020-03-23] MEDS ORDERED: CISATRACURIUM 2 MG/ML 5 ML VIAL IV ONE (09:00)
--- NOTE | 2020-03-23 09:18 | P.PCN ---
Date of Procedure: 03/23/20 Operative Findings: Date of Procedure: 03/23/20 Preoperative Diagnosis: Pneumonia, extensive right upper lobe consolidation Postoperative Diagnosis: Pneumonia, extensive right upper lobe consolidation Procedure(s) Performed: Bronchoscopy, right upper lobe bronchioloalveolar lavage Anesthesia: UZMA Surgeon: Enriqueta Del Cid Lsw #1: Bere Alves Estimated Blood Loss (ml): 0 Pathology: other Condition: critical Disposition: ICU Operative Findings: This procedure was done in the intensive care unit. The patient was already intubated on a mechanical ventilator. The patient was placed on a psychiatrist. The patient was on propofol running at 50 g and the patient was given a dose of Nimbex 10 mg IV push. After achieving a adequate sedation flexible bronchoscope was introduced through the oral tracheal treatment with acids of the lower trachea. This procedure was done as the patient was being fully oxygenated and ventilated. Note that preoperatively currently was from both wrists or secretions rotated film and the patient was on no anticoagulants Bronchoscope was introduced and an airway inspection. Physical trachea was within normal limits. Judy was sharp in the midline. There were bilateral mainstem bronchi. Examination included the right upper lobe bronchus, bronchus intermedius, right middle lobe and right lower lobe. Examination of the left side include the left upper lobe bronchus, lingular segment of the left lower lobe bronchus. Therapeutic it was suctioning was done. We'll secretions were suctioned out. Bronchoscope was then wedged into the anterior segment of the right upper lobe and the bronchioloalveolar lavage done. A total 120 mL of fluid was infused at around 25-30 mL of blood gases. No endobronchial tumors or foreign bodies. The lavage will be sent for microbial cultures and analysis. Procedure was terminated. Bronchoscope was removed. No bedside complications.
[2020-03-23 09:29] LABS: African American GFR (CKD) 41.1 (60.0-200.0); Anion Gap 9.2 mmol/L (4.00-12.00); Calcium 7.6 mg/dL (8.7-10.3); Carbon Dioxide 23.8 mmol/L (21.6-31.8); Non-African American GFR(CKD) 35.4 (60.0-200.0); Potassium 4.8 mmol/L (3.5-5.5)
[2020-03-23] MEDS: SODIUM CHLORIDE 0.9% 1,000 ML IV SCH ×2 (09:32→22:26)
[2020-03-23] MEDS: SYMBICORT 160-4.5 MCG INHALER INHALATION SCH (09:40)
[2020-03-23] MEDS: methylPREDNISolone SOD SUCCI 125 MG/2 ML VIAL IV SCH ×3 (10:14→17:43)
[2020-03-23] MEDS: ANIDULAFUNGIN 100 MG in SODIUM CHLORIDE 0.9% 100 ML IVPB SCH (10:23)
[2020-03-23] MEDS: PANTOPRAZOLE 40 MG/10 ML VIAL IVP SCH ×2 (10:44→21:28)
[2020-03-23] MEDS: MEROPENEM 1 GM in SODIUM CHLORIDE 0.9% 100 ML IVPB SCH ×2 (11:01→21:28)
[2020-03-23] MEDS: CHLORHEXIDINE GLUCONATE 15 ML CUP MUCOUS MEM SCH ×2 (11:07→21:29)
[2020-03-23] MEDS: valACYclovir 500 MG TAB PO SCH ×2 (11:37→21:28)
[2020-03-23] MEDS: CALCIUM CARB-VIT D 500 MG-5 MCG TAB PO SCH (11:42)
[2020-03-23] MEDS: METOPROLOL TARTRATE 25 MG TAB PO SCH ×3 (11:42→22:24)
[2020-03-23] MEDS: SODIUM BICARBONATE TAB 650 MG TAB PO SCH ×2 (11:43→21:28)
--- NOTE | 2020-03-23 12:22 | P.PN ---
Subjective Progress Note Date: 03/23/20 Principal diagnosis: PNA, multiple myeloma Sedated and mechanically ventilated, patient was extubated for only a short period of time, Nursing communicated A-team had to be called last night Objective - Vital Signs Vital signs: Vital Signs Temp 98.0 F 03/23/20 08:00 Pulse 69 03/23/20 11:51 Resp 20 03/23/20 10:00 BP 106/64 03/23/20 09:00 Pulse Ox 100 03/23/20 10:00 Intake & Output 03/22/20 03/23/20 03/23/20 18:59 06:59 18:59 Intake Total 540 35 Output Total 435 Balance 540 -400 Weight 45 kg Intake: IV 35 Sodium Chloride 0.9% 1, 35 000 ml @ 75 mls/hr IV . [id number] OLIVE Rx#:[id number] Oral 540 Output: Urine 435 Other: Voiding Method Bedpan Bedpan Diaper Diaper Incontinent Incontinent # Voids 2 # Bowel Movements 1 ABP, PAP, CO, CI - Last Documented Arterial Blood Pressure 158/62 - Constitutional General appearance: Present: thin - Respiratory Respiratory: bilateral: diminished - Cardiovascular Heart sounds: normal: S1, S2 - Peripheral edema leg Peripheral Edema: bilateral: Trace - Gastrointestinal General gastrointestinal: Present: normal bowel sounds, soft - Neurologic Neurologic: Absent: CNII-XII intact, focal deficits - Psychiatric Psychiatric: Absent: A&O x's 3, appropriate affect, intact judgment & insight - Labs CBC & Chem 7: 03/23/20 04:53 03/23/20 04:53 Labs: Abnormal Lab Results - Last 24 Hours (Table) 03/22/20 03/23/20 03/23/20 Range/Units 20:17 04:09 04:26 WBC (3.8-10.6) k/uL RBC (3.80-5.40) m/uL Hgb (11.4-16.0) gm/dL RDW (11.5-15.5) % Plt Count (150-450) k/uL ABG pH 7.32 L (7.35-7.45) ABG pO2 61 L (83-108) mmHg ABG O2 Saturation 88.8 L (94-97) % Sodium (135-145) mmol/L Chloride (96-109) mmol/L BUN (9.0-27.0) mg/dL Est GFR (CKD-EPI)AfAm (60.0-200.0) Est GFR (CKD-EPI)NonAf (60.0-200.0) BUN/Creatinine Ratio (12.00-20.00) Ratio Glucose (70-110) mg/dL POC Glucose (mg/dL) 100 H 136 H (75-99) mg/dL Calcium (8.7-10.3) mg/dL 03/23/20 03/23/20 03/23/20 Range/Units 04:53 04:53 05:38 WBC 32.2 H (3.8-10.6) k/uL RBC 3.63 L (3.80-5.40) m/uL Hgb 10.7 L (11.4-16.0) gm/dL RDW 17.9 H (11.5-15.5) % Plt Count 75 L D (150-450) k/uL ABG pH (7.35-7.45) ABG pO2 (83-108) mmHg ABG O2 Saturation (94-97) % Sodium 147 H (135-145) mmol/L Chloride 114 H (96-109) mmol/L BUN 45.0 H (9.0-27.0) mg/dL Est GFR (CKD-EPI)AfAm 41.1 L (60.0-200.0) Est GFR (CKD-EPI)NonAf 35.4 L (60.0-200.0) BUN/Creatinine Ratio 30.00 H (12.00-20.00) Ratio Glucose 134 H (70-110) mg/dL POC Glucose (mg/dL) 118 H (75-99) mg/dL Calcium 7.6 L (8.7-10.3) mg/dL Assessment and Plan (1) [place]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 Her most recent M-spike was 0.19g/dl, stable. 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
[2020-03-23 12:26] LABS: Glucose,Whole Blood 76 mg/dL (75-99)
[2020-03-23] MEDS: INSULIN ASPART (NovoLOG) 100 UNIT/ML VIAL SQ SCH ×2 (12:27→17:48)
[2020-03-23] MEDS: SERTRALINE 100 MG TAB PO SCH (13:11)
--- NOTE | 2020-03-23 15:33 | P.PN ---
Subjective 69-year-old patient of Dr. Villalobos. Chronic stable medical conditions include paroxysmal atrial flutter fibrillation, , CHF with an EF of 50-55%, tricuspid and mitral regurgitation, secondary pulmonary hypertension, chronic kidney disease stage IV, hypertension, hyperlipidemia,. Patient also being treated for multiple myeloma. on REVLIMID Patient presented with shortness of breath confusion cough congestion. Admitted with right upper lobe pneumonia, acute delirium. Started on IV aztreonam and azithromycin. Developed black tarry stools. Dropped hemoglobin. 1 unit of blood given. Patient desaturated. Moved to the ICU on March 11. Intubated March 14-placed on IV levo fed propofol antibiotics changed to IV meropenem. bronchoscopy done by Dr. Hart[March 16]-thick philomena, secretions obtained. Extubated March 19 Ajide-CKF-tklmgavmn today. Often drips. Tired. Congested. Awake. 03/20/2020 Patient is presently on 2 L of oxygen clinically doing well feeling much better. Patient wheezing improved. 03/21/2020 Patient is presently on 2 L of onset and being transferred out of ICU creatinine continued to improve and presently 1.3 03/22/2020 Patient the creatinine remains stable remains untreated is oxygen. 03/23/2020 This is pretty status has worsened after that patient was transferred to ICU and patient was subsequently intubated today morning. Patient chest x-ray continued to show significant infiltrate because of which gram-positive coverage was added. Patient white blood cell count jumped up to 32,000 platelet count improved as well and is 75,000. Patient is presently on meropenem, vancomycin and IV antifungal. Patient's sputum cultures are positive for CMV although this may not need to be treated Review of systems: Unable to obtain due to her clinical condition All inpatient medications were reviewed and appropriate changes in these medications as dictated in the interval history and assessment and plan. Objective - Vital Signs Vital signs: Vital Signs Temp 98.6 F 03/23/20 12:00 Pulse 61 03/23/20 15:00 Resp 21 03/23/20 15:00 BP 112/65 03/23/20 14:30 Pulse Ox 100 03/23/20 15:00 Intake & Output 03/22/20 03/23/20 03/23/20 18:59 06:59 18:59 Intake Total 540 830 Output Total 1010 Balance 540 -180 Weight 45 kg 45 kg Intake: IV 710 Anidulafungin 100 mg In 100 Sodium Chloride 0.9% 100 ml @ 84 mls/hr IVPB DAILY [facility] Rx#:[id number] Meropenem 1 gm In Sodium 100 Chloride 0.9% 100 ml @ 33 .3 mls/hr IVPB Q12HR [facility] Rx#:[id number] Sodium Chloride 0.9% 1, 260 000 ml @ 75 mls/hr IV . [id number] [facility] Rx#:[id number] Vancomycin 750 mg In 250 Sodium Chloride 0.9% 250 ml @ 125 mls/hr IVPB ONCE ONE Rx#:[id number] Oral 540 Other 120 Output: Urine 1010 Other: Voiding Method Bedpan Bedpan Indwelling Catheter Diaper Diaper Incontinent Incontinent # Voids 2 # Bowel Movements 1 ABP, PAP, CO, CI - Last Documented Arterial Blood Pressure 128/55 - Exam PHYSICAL EXAMINATION: GENERAL: Patient is presently intubated, sedated HEENT: Pupils are round and equally reacting to light. EOMI. No scleral icterus. No conjunctival pallor. Normocephalic, atraumatic. No pharyngeal erythema. No thyromegaly. CARDIOVASCULAR: S1 and S2 present. No murmurs, rubs, or gallops. PULMONARY: Bilatral rhonchi ABDOMEN: Soft, nontender, nondistended, normoactive bowel sounds. No palpable organomegaly. MUSCULOSKELETAL: No joint swelling or deformity. EXTREMITIES: No cyanosis, clubbing, or pedal edema. NEUROLOGICAL: Patient is sedated SKIN: No rashes. - Labs CBC & Chem 7: 03/23/20 04:53 03/23/20 04:53 Labs: Abnormal Lab Results - Last 24 Hours (Table) 03/22/20 03/23/20 03/23/20 Range/Units 20:17 04:09 04:26 WBC (3.8-10.6) k/uL RBC (3.80-5.40) m/uL Hgb (11.4-16.0) gm/dL RDW (11.5-15.5) % Plt Count (150-450) k/uL ABG pH 7.32 L (7.35-7.45) ABG pO2 61 L (83-108) mmHg ABG O2 Saturation 88.8 L (94-97) % Sodium (135-145) mmol/L Chloride (96-109) mmol/L BUN (9.0-27.0) mg/dL Est GFR (CKD-EPI)AfAm (60.0-200.0) Est GFR (CKD-EPI)NonAf (60.0-200.0) BUN/Creatinine Ratio (12.00-20.00) Ratio Glucose (70-110) mg/dL POC Glucose (mg/dL) 100 H 136 H (75-99) mg/dL Calcium (8.7-10.3) mg/dL 03/23/20 03/23/20 03/23/20 Range/Units 04:53 04:53 05:38 WBC 32.2 H (3.8-10.6) k/uL RBC 3.63 L (3.80-5.40) m/uL Hgb 10.7 L (11.4-16.0) gm/dL RDW 17.9 H (11.5-15.5) % Plt Count 75 L D (150-450) k/uL ABG pH (7.35-7.45) ABG pO2 (83-108) mmHg ABG O2 Saturation (94-97) % Sodium 147 H (135-145) mmol/L Chloride 114 H (96-109) mmol/L BUN 45.0 H (9.0-27.0) mg/dL Est GFR (CKD-EPI)AfAm 41.1 L (60.0-200.0) Est GFR (CKD-EPI)NonAf 35.4 L (60.0-200.0) BUN/Creatinine Ratio 30.00 H (12.00-20.00) Ratio Glucose 134 H (70-110) mg/dL POC Glucose (mg/dL) 118 H (75-99) mg/dL Calcium 7.6 L (8.7-10.3) mg/dL Assessment and Plan Plan: Acute on chronic hypoxic and hypercapnic respiratory failure: Secondary to pneumonia and COPD exacerbation patient was extubated on 03/19/2020, patient was pretty status worsened overnight last night and patient was subsequently transferred to ICU and intubated today that is on the 03/23/2020 chest x-ray showing worsening infiltrate and the patient is presently on broad-spectrum antibiotics as mentioned above -Right upper lobe pneumonia, patient is on meropenem, vancomycin and antifungal. White blood cell count went up -Paroxysmal atrial flutter and fibrillation-with rapid ventricular admission presently sinus rhythm -Anemia multifactorial including that of chronic disease including multiple myeloma - COPD exacerbation in a ex-smoker, -Chronic congestive heart failure from systolic and diastolic dysfunction EF 50-55% patient is not in acute exacerbation -Moderate tricuspid and severe mitral regurgitation, nontraumatic -Severe secondary pulmonary hypertension secondary to COPD -Multiple myeloma on chemotherapy -Chronic kidney disease secondary to multiple myeloma stage IV and chronic interstitial nephropathy -Essential hypertension -Hyperlipidemia -Severe protein calorie malnutrition due to poor oral intake. BMI 14.4 -Chronic medical debility -Multiple old rib fractures due to multiple myeloma -Acute kidney injury possibly combination of ATN and prerenal-improved correlation present creatinine is 1.4, this is her baseline Considering her multiple myeloma patient prognosis overall is extremely poor.
[2020-03-23 16:14] LABS: Appearance,BF Hazy; Color,BF Pink; Nucleated Cells, Body Fluid 1030 /uL; RBC, Body Fluid 16860 /uL
[2020-03-23] MEDS: ENOXAPARIN 30 MG/0.3 ML SYRINGE SQ SCH (16:41)
--- NOTE | 2020-03-23 17:01 | CDI ---
Documentation Clarification Form Date: 03/23/2020 04:59 PM CDS: Allie Neal, VIDAL, CCDS Admit Date: 03/08/2020 05:56 AM Patient Name: Lucero Coleman Discharge Date: ATTENTION: The Clinical Documentation Specialists (CDI) and [facility] Coding Staff appreciate your assistance in clarifying documentation. Please respond to the clarification below the line at the bottom and electronically sign. The CDI & [facility] Coding staff will review the response and follow-up if needed. Please note: Queries are made part of the Legal Health Record. If you have any questions, please contact the author of this message via ITS. Dear Dr. Enriqueta Del Cid: Per the ED Note on 03/08: Respiratory distress. Respiratory distress is also documented in subsequent Progress Notes beginning 03/12 and throughout the chart. History/Risk Factors: Multiple Myeloma status post chemo, COPD, CHF, Atrial Fibrillation, Atrial Flutter, Hypertension, Hyperlipidemia, Anxiety, Former smoker. Clinical Indicators: Presented to the ED on 03/08 with SOB via EMS. On arrival, patient was delirious, somnolent, SOB with cough & chills. Screened for Sepsis with tachycardia, irregular rhythm, given Sepsis bolus, Cardizem and started on antibiotics. Patient was found to have RUL infiltrates, in atrial flutter with ventricular rate, mildly hypotensive and with elevated lactic acidosis consistent with sepsis. Admitted with Gram negative Sepsis, Gram negative Pneumonia, Atrial flutter w/RVR, Lactic acidosis & CKD, Acute Hypoxic & Hypercapnic Respiratory Failure, GREGORY w/ATN, Severe Protein Calorie Malnutrition, Hypertensive Heart & CKD IV with Chronic Combined CHF. VS 03/08: T 98.2, P 61 - 152^, R 20 - 24 (sob, labored), BP 91/69*, PO 92 3Lnc LAB: WBC 14.0^, Hgb 8.1*, Pl Ct 134*, Neut 12.8^, D Dimer 1.61^, Cl 108^, CO2 18*, BUN 47^, Cr 2.64^, Gluc 188^. 03/16: Blood gas: pH 7.40, pCO2 41, pO2 129^, HCO3 26^, Total CO2 27^. 03/23 Blood gas: pH 7.32*, pCO2 43, pO2 61*, HCO3 22, Total CO2 23. Treatment 03/08: O2 3Lnc, IV Cardizem Drip Bolus, IV Cardizem, IV fl 1,000 mls @ 130 mls/hr, IV fl 500 mls @ 1000 mls/hr, IV Azithromycin, IV Aztreonam, INH Duoneb 03/14 Patient was intubated, extubated 03/19 03/23 Patient was re-intubated, remains on vent in ICU In order to accurately reflect the severity of condition, please indicate if the above clinical findings and treatment signify a respiratory condition, such as: Acute Respiratory Distress Acute Respiratory Distress Syndrome Other, please specify Unable to determine (Last Revision: December 2016) Acute Respiratory Distress Syndrome MTDD
[2020-03-23 17:48] LABS: Glucose,Whole Blood 112 mg/dL (75-99)
--- NOTE | 2020-03-23 20:55 | PN ---
PROGRESS NOTE DATE OF SERVICE: 03/23/2020 REASON FOR FOLLOWUP: Pneumonia. INTERVAL HISTORY: The patient went into respiratory distress last night and ended up getting intubated; has been transferred to the ICU. The patient is currently hemodynamically stable. FiO2 is currently 50%. No significant purulent secretions in the ET or any diarrhea reported by the nursing staff. PHYSICAL EXAMINATION: Blood pressure 114/50 with a pulse of 66, temperature 98. She is 100% on 50% FiO2. General description is an elderly female patient on the vent. RESPIRATORY SYSTEM: Unlabored breathing with decreased intensity of breath sounds. No wheeze. HEART: S1, S2. Regular rate and rhythm. ABDOMEN: Soft. No tenderness. LABS: Hemoglobin is 10.7, white count 32.2, BUN of 45, creatinine 1.5. DIAGNOSTIC IMPRESSION AND PLAN: Patient with acute respiratory failure, multifactorial, in this patient with a component of pneumonia. Sputum was negative for any resistant pathogen and the patient has been meropenem. She is status post repeat all of those cultures will be followed and antibiotic adjusted as needed. Continue with supportive care. MMODL / IJN: [id number] /
[2020-03-23] MEDS ORDERED: SODIUM CHLORIDE 0.9% 1,000 ML IV ONE (21:16)
[2020-03-23 21:59] LABS: Mononuclear WBC,Body Fluid 11 %; Polynuclear WBC,Body Fluid 89 %
[2020-03-23 23:57] LABS: Glucose,Whole Blood 114 mg/dL (75-99)
[2020-03-24] MEDS: methylPREDNISolone SOD SUCCI 125 MG/2 ML VIAL IV SCH ×4 (01:02→17:39)
[2020-03-24] MEDS: INSULIN ASPART (NovoLOG) 100 UNIT/ML VIAL SQ SCH ×4 (01:03→18:14)
[2020-03-24 04:05] LABS: Anisocytosis Slight; HCT 25.7 % (34.0-46.0); Hypochromasia Slight; MCH 30.6 pg (25.0-35.0); MCHC 33.4 g/dL (31.0-37.0); MCV 91.5 fL (80.0-100.0); Mean Platelet Volume 10.7; RBC 2.81 m/uL (3.80-5.40); RDW 18.1 % (11.5-15.5); WBC 4.5 k/uL (3.8-10.6)
[2020-03-24 04:10] LABS: Platelet Count 43 k/uL (150-450)
[2020-03-24 04:12] LABS: HGB 8.6 gm/dL (11.4-16.0)
[2020-03-24 04:18] LABS: Calcium 6.7 mg/dL (8.4-10.2); Potassium 3.7 mmol/L (3.5-5.1)
[2020-03-24] MEDS: LATANOPROST 0.005% OPHTH DROPS 2.5 ML BTL BOTH EYES SCH (04:54)
[2020-03-24 05:38] LABS: Glucose,Whole Blood 137 mg/dL (75-99)
[2020-03-24 05:44] LABS: ABG Base Excess -2.3 mmol/L; ABG HCO3 22 mmol/L (21-25); ABG Oxygen Saturation 98.7 % (94-97); ABG PCO2 34 mmHg (35-45); ABG PH 7.43 (7.35-7.45); ABG PO2 106 mmHg (83-108); ABG TCO2 23 mmol/L (19-24); Allen Test Performed? Yes
[2020-03-24] MEDS ORDERED: POTASSIUM BICARBONATE/CIT AC 20 MEQ TABLET.EFF NG-TUBE SCH (06:00)
[2020-03-24] MEDS: IPRATROPIUM-ALBUTEROL 3 ML NEB INHALATION SCH ×4 (07:14→18:58)
--- NOTE | 2020-03-24 07:30 | XR ---
EXAMINATION TYPE: XR chest 1V portable DATE OF EXAM: 03/24/2020 COMPARISON: Chest x-ray 03/23/2020 HISTORY: Intubated TECHNIQUE: Single frontal view of the chest is obtained. FINDINGS: Endotracheal tube, NG tube, bony sclerotic rib densities are all again seen. There may be some improvement in aeration as compared to previous exam accounting for differences in technique. No evident pneumothorax or sizable effusion. Cardiac mediastinal silhouette is stable. Aorta is dense. IMPRESSION: Suspect improvement in aeration
--- NOTE | 2020-03-24 07:34 | P.PN ---
Subjective Progress Note Date: 03/24/20 This is a very pleasant 69-year-old female admitted on March 08, 2020. She has a history of atrial fibrillation/flutter, congestive heart failure, chronic obstructive pulmonary disease with chronic hypoxic respiratory failure, CVA/TIA, hypertension, hyperlipidemia, rheumatoid arthritis, COPD with previous chronic tobacco dependence. She also has a history of multiple myeloma and is currently on Revlimid. Her initial diagnosis this admission was atrial fibrillation with RVR, black stools, and pneumonia. She was initially admitted to the stepdown unit, and came to the intensive care unit on March 11. She did require 3 units of packed red blood cells for her anemia. Because of worsening respiratory status and hypoxemia, she was intubated on 03/14/2020 and successfully extubated on 03/19/2020. She had undergone bronchoscopy with BAL of the right upper lobe. Cultures positive for Nicolle only. The patient this morning the chest into the intensive care unit. Apparently overnight the patient was getting progressively more short of breath. He got transferred to the intensive. Earlier this morning and the patient was intubated and placed on a mechanical ventilator. Note that the patient currently is sedated with propofol it is running at 50 g per KG per minute. The patient is on assist control mode of ventilation at the rate of 20 with a tidal volume of 350 and FiO2 of 50% with a PEEP of 5. Current pulse ox is 98%. Peak airway pressures 38. Chest x-ray shows multiple bila teral rib fractures in addition to extensive consolidation of the right is essentially worse compared to her previous chest x-rays. Her white cell count is up to 32. She is currently on IV Merrem. The patient is also chronically on prednisone maintained at a dose of 20 mg by mouth daily. Cardiac rhythm is sinus. She is very much thin and frail and cachectic looking. She has cold sores on her lips and she is currently on Valtrex. On today's evaluation of 03/24/2020, seeing the patient for a follow-up. As mentioned earlier, the patient was intubated and placed on a mechanical ventilator for an acute and recurrent respiratory failure. The chest x-ray showed extensive consolidation of the right upper lobe along with a cavitating right upper lobe pulmonary infiltrates/pneumonia. The patient was already taking melatonin. Vancomycin and atelectasis was also added to her regimen. Th is morning, the patient remains on a mechanical ventilator. She is an assist- control mode at the rate of 20 with a tidal volume of 350 and FiO2 of 40% with a PEEP of 5. Chest x-ray from today adequate positioning of the orotracheal tube. There is still consolidation of the right upper lobe and this has improved considerably compared to yesterday. The patient has multiple areas of rib fractures bilaterally. Orogastric tube is in place. Comparing the x-ray from yesterday, there is improvement in the right upper lobe consolidation and elevation. Noted the patient is also post bronchoscopy that was done yesterday and we collected a lavage of the right upper lobe. cultures are still pending for now. the patient is still on broad-spectrum antibiotics and the patient is currently receiving a combination of meropenem, atelectasis and vancomycin. she is afebrile for now. her white cell count is at 4.7 with a hemoglobin of 8.6. blood gases from today showed a ph of 7.43 with a pco2 of 34 and po2 of 106 and this was done above-mentioned ventilator setting. he had a 45 with a creatinine of 1.25. she is improved compared to yesterday. the patient is receiving enteral feeding for nutritional support and currently she is on vital high protein at the rate of 34 ml an hour. she has no abdominal distention. there is 1 bowel movement activity yet. she is on no pressors. He still having some loose bloody respiratory secretions. Bronchoscopy that was done yesterday showed no evidence of any endobronchial tumors or lesions or foreign bodies. As mentioned, culture are still pending. The patient is known to have COPD and previous history of multiple myeloma. Her cardiac rhythm is sinus and she is known to have previous history of atrial fibrillation. She is on no antico agulants for now. On Lovenox for DVT prophylaxis dose of 30 mg subcu every 24 hours. Objective - Vital Signs Vital signs: Vital Signs Temp 98.1 F 03/24/20 04:00 Pulse 61 03/24/20 07:19 Resp 22 03/24/20 07:00 BP 117/63 03/24/20 07:00 Pulse Ox 98 03/24/20 07:00 Intake & Output 03/23/20 03/24/20 03/24/20 18:59 06:59 18:59 Intake Total 0635.916 7932 109 Output Total 1210 320 30 Balance 57.654 2173 79 Weight 45 kg 45.2 kg Intake: IV 935 1925 75 Anidulafungin 100 mg In 100 Sodium Chloride 0.9% 100 ml @ 84 mls/hr IVPB DAILY [facility] Rx#:[id number] Meropenem 1 gm In Sodium 100 100 Chloride 0.9% 100 ml @ 33 .3 mls/hr IVPB Q12HR [facility] Rx#:[id number] Sodium Chloride 0.9% 1, 485 825 75 000 ml @ 75 mls/hr IV . [id number] [facility] Rx#:[id number] Sodium Chloride 0.9% 1, 1000 000 ml @ 999 mls/hr IV . Q1H1M [facility] Rx#:[id number] Vancomycin 750 mg In 250 Sodium Chloride 0.9% 250 ml @ 125 mls/hr IVPB ONCE [facility] Rx#:[id number] Intake, IV Titration 129.654 Amount propofoL 1,000 mg In 129.654 Empty Bag 1 bag @ Titrate IV .Q0M [facility] Rx#: [id number] Tube Feeding 83 408 34 Other 120 160 Output: Urine 1210 320 30 Other: Voiding Method Indwelling Catheter Indwelling Catheter ABP, PAP, CO, CI - Last Documented Arterial Blood Pressure 105/42 - Exam GENERAL EXAM: Alert, very pleasant, 61-year-old frail looking female patient on 3 L of oxygen with pulse ox of 96% comfortable in no apparent distress. HEAD: Normocephalic/atraumatic. EYES: Normal reaction of pupils, equal size. Conjunctiva pink, sclera white. NOSE: Clear with pink turbinates. THROAT: No erythema or exudates. NECK: No masses, no JVD, no thyroid enlargement, no adenopathy. CHEST: No chest wall deformity. Symmetrical expansion. LUNGS: Equal air entry with diminished breath over right upper lobe, no wheeze, rhonchi or dullness. CVS: Regular rate and rhythm, normal S1 and S2, no gallops, no murmurs, no rubs ABDOMEN: Soft, nontender. No hepatosplenomegaly, normal bowel sounds, no guarding or rigidity. EXTREMITIES: No clubbing, no edema, no cyanosis, 2+ pulses and upper and lower extremities. MUSCULOSKELETAL: Muscle strength and tone normal. SPINE: No scoliosis or deformity SKIN: No rashes CENTRAL NERVOUS SYSTEM: No focal deficits, tone is normal in all 4 extremities. PSYCHIATRIC: Alert and oriented -3. Appropriate affect. Intact judgment and insight. - Labs CBC & Chem 7: 03/24/20 04:00 03/24/20 04:00 Labs: Abnormal Lab Results - Last 24 Hours (Table) 03/23/20 03/23/20 03/23/20 Range/Units 04:53 17:47 23:55 RBC (3.80-5.40) m/uL Hgb (11.4-16.0) gm/dL Hct (34.0-46.0) % RDW (11.5-15.5) % Plt Count (150-450) k/uL ABG pCO2 (35-45) mmHg ABG O2 Saturation (94-97) % Sodium 147 H (135-145) mmol/L Chloride 114 H (96-109) mmol/L BUN 45.0 H (9.0-27.0) mg/dL Creatinine (0.52-1.04) mg/dL Est GFR (CKD-EPI)AfAm 41.1 L (60.0-200.0) Est GFR (CKD-EPI)NonAf 35.4 L (60.0-200.0) BUN/Creatinine Ratio 30.00 H (12.00-20.00) Ratio Glucose 134 H (70-110) mg/dL POC Glucose (mg/dL) 112 H 114 H (75-99) mg/dL Calcium 7.6 L (8.7-10.3) mg/dL 03/24/20 03/24/20 03/24/20 Range/Units 04:00 04:00 05:35 RBC 2.81 L (3.80-5.40) m/uL Hgb 8.6 L D (11.4-16.0) gm/dL Hct 25.7 L (34.0-46.0) % RDW 18.1 H (11.5-15.5) % Plt Count 43 L (150-450) k/uL ABG pCO2 (35-45) mmHg ABG O2 Saturation (94-97) % Sodium (135-145) mmol/L Chloride 117 H (96-109) mmol/L BUN 45 H (9.0-27.0) mg/dL Creatinine 1.25 H (0.52-1.04) mg/dL Est GFR (CKD-EPI)AfAm (60.0-200.0) Est GFR (CKD-EPI)NonAf (60.0-200.0) BUN/Creatinine Ratio (12.00-20.00) Ratio Glucose 107 H (70-110) mg/dL POC Glucose (mg/dL) 137 H (75-99) mg/dL Calcium 6.7 L (8.7-10.3) mg/dL 03/24/20 Range/Units 05:40 RBC (3.80-5.40) m/uL Hgb (11.4-16.0) gm/dL Hct (34.0-46.0) % RDW (11.5-15.5) % Plt Count (150-450) k/uL ABG pCO2 34 L (35-45) mmHg ABG O2 Saturation 98.7 H (94-97) % Sodium (135-145) mmol/L Chloride (96-109) mmol/L BUN (9.0-27.0) mg/dL Creatinine (0.52-1.04) mg/dL Est GFR (CKD-EPI)AfAm (60.0-200.0) Est GFR (CKD-EPI)NonAf (60.0-200.0) BUN/Creatinine Ratio (12.00-20.00) Ratio Glucose (70-110) mg/dL POC Glucose (mg/dL) (75-99) mg/dL Calcium (8.7-10.3) mg/dL Microbiology - Last 24 Hours (Table) 03/16/20 09:30 Acid Fast Bacilli Smear - Final Bronchial Washings - Right Acid Fast Bacilli Culture - Preliminary 03/23/20 09:15 Gram Stain - Preliminary Bronchoalviolar Lavage - Right Bronchial Washings Culture - Preliminary 03/23/20 09:15 Acid Fast Bacilli Culture - Preliminary Bronchoalviolar Lavage - Right 03/23/20 09:15 Fungal Culture - Preliminary Bronchoalviolar Lavage - Right Assessment and Plan Plan: 1 Acute hypoxic respiratory failure requiring intubation and mechanical ventilation from 03/14 - 03/19/2020 secondary to an acute right upper lung the pneumonia, status post bronchoscopy with BAL. After being extubated, the patient will be admitted to the intensive care unit with worsening hypoxemia respiratory failure. The patient is currently intubated on a mechanical ventilator. Chest x-ray shows extensive consolidation of the right upper lobe. Her previous CAT scan of the chest from 01/10/2020 showed emphysema with upper lobe predominance. There was however some creatinine but opacity in the lung bases bilaterally. Nevertheless, the current findings are quite extensive and the patient developed worsening in the right upper lobe pulmonary cavitary consolidation. She was intubated on 03/23/2020 and the chest x-ray showed extensive consolidation of the right upper lobe. Bronchoscopy was done and the results are still pending. Meanwhile, the repeat chest x-ray showed significant improvement in the right upper lobe infiltration of the patient is having adequate oxygenation and ventilation on today's blood gas. She is also hemodynamically stable. Results of the bronchoscopy are still pending. She is on broad-spectrum antibiotics including a combination of meropenem, vancomycin and Eraxis. Within 2 Right-sided atypical chest pain secondary to above 3 Leukocytosis secondary to above 4 Anemia, current hemoglobin 8.6, slightly lower compared to yesterday, received 3 units of packed red blood cells during the course of this admission 5 Acute renal failure, covered, current creatinine 1.25 6 Lactic acidosis secondary to above, recovered 7 Multiple myeloma with abnormal uptake associated sedated with the patient's right lower lobe lung mass, currently on Revlimid 8 Chronic obstructive pulmonary disease with previous chronic tobacco dependence 9 Acute on chronic kidney disease, stage IIIIV, and the patient stable creatinine is at 1.25. 10 History of diastolic congestive heart failure 11 Paroxysmal atrial fibrillation/flutter with RVR, currently in sinus rhythm and maintained on Eliquis, currently off anticoagulation because of history of bleeding. Her current rhythm is sinus. 12 Previous history of CVA 13 Hypertension 14 Hyperlipidemia 15 Chronic anxiety Plan The patient most likely has a recurrent pneumonia. Continue the combination meropenem, vancomycin and Eraxis Repeat bronchoscopy was done and the results of the bronchioloalveolar lavage is still pending Continue enteral feeding for nutritional support IV fluids in the form of normal saline at the rate of 75 mL an hour she received a bolus of 1 L yesterday. Urine output is in order of 30 mL an hour she is currently on no pressors and the renal function is also improving IV Solu Medrol every 8 hours my 60 mg The patient has a PICC line in the left upper extremity and an art line in the right radial artery has been inserted keep the patient sedated with propofol which is running at 60 g per KG / minutes. Monitor the gases Monitor hemoglobin blood culture are negative for now and the patient cultures of been all negative and stable for now. Sedation holiday and check weaning parameters and assess the readiness to wean Condition is critical and will continue to follow make further recommendation. Critical care evaluation, more than 30 minutes. Time with Patient: Greater than 30
[2020-03-24] MEDS ORDERED: VANCOMYCIN 750 MG in SODIUM CHLORIDE 0.9% 250 ML IVPB ONE (09:00)
[2020-03-24] MEDS: ANIDULAFUNGIN 100 MG in SODIUM CHLORIDE 0.9% 100 ML IVPB SCH (09:04)
[2020-03-24] MEDS: CHLORHEXIDINE GLUCONATE 15 ML CUP MUCOUS MEM SCH ×2 (09:07→22:27)
[2020-03-24] MEDS: MEROPENEM 1 GM in SODIUM CHLORIDE 0.9% 100 ML IVPB SCH ×2 (09:09→22:28)
[2020-03-24] MEDS: valACYclovir 500 MG TAB PO SCH ×2 (09:11→22:27)
[2020-03-24] MEDS: PANTOPRAZOLE 40 MG/10 ML VIAL IVP SCH ×2 (09:11→22:28)
[2020-03-24] MEDS: ENOXAPARIN 30 MG/0.3 ML SYRINGE SQ SCH (09:15)
[2020-03-24 11:20] LABS: Glucose,Whole Blood 131 mg/dL (75-99)
--- NOTE | 2020-03-24 12:37 | P.PN ---
Subjective 69-year-old patient of Dr. Villalobos. Chronic stable medical conditions include paroxysmal atrial flutter fibrillation, , CHF with an EF of 50-55%, tricuspid and mitral regurgitation, secondary pulmonary hypertension, chronic kidney disease stage IV, hypertension, hyperlipidemia,. Patient also being treated for multiple myeloma. on REVLIMID Patient presented with shortness of breath confusion cough congestion. Admitted with right upper lobe pneumonia, acute delirium. Started on IV aztreonam and azithromycin. Developed black tarry stools. Dropped hemoglobin. 1 unit of blood given. Patient desaturated. Moved to the ICU on March 11. Intubated March 14-placed on IV levo fed propofol antibiotics changed to IV meropenem. bronchoscopy done by Dr. Hart[March 16]-thick philomena, secretions obtained. Extubated March 19 Pacqz-KPS-gsantstza today. Often drips. Tired. Congested. Awake. 03/20/2020 Patient is presently on 2 L of oxygen clinically doing well feeling much better. Patient wheezing improved. 03/21/2020 Patient is presently on 2 L of onset and being transferred out of ICU creatinine continued to improve and presently 1.3 03/22/2020 Patient the creatinine remains stable remains untreated is oxygen. 03/23/2020 This is pretty status has worsened after that patient was transferred to ICU and patient was subsequently intubated today morning. Patient chest x-ray continued to show significant infiltrate because of which gram-positive coverage was added. Patient white blood cell count jumped up to 32,000 platelet count improved as well and is 75,000. Patient is presently on meropenem, vancomycin and IV antifungal. Patient's sputum cultures are positive for CMV although this may not need to be treated. 03/24/2020 Patient remains on ventilator support chest x-ray showing extensive consolidation patient does have multiple areas of due to fractures bilaterally patient underwent bronchoscopy and lavage of the right upper lobe cultures are still pending from that the BAL patient remains on PEEP of 55-40% tidal volume of 3. 50 assist-control ventilation with set up respiratory rate of 20. Diana ent remains on propofol Review of systems: Unable to obtain due to her clinical condition All inpatient medications were reviewed and appropriate changes in these medications as dictated in the interval history and assessment and plan. Objective - Vital Signs Vital signs: Vital Signs Temp 97.7 F 03/24/20 08:00 Pulse 66 03/24/20 11:05 Resp 17 03/24/20 10:00 BP 119/63 03/24/20 08:30 Pulse Ox 100 03/24/20 10:00 Intake & Output 03/23/20 03/24/20 03/24/20 18:59 06:59 18:59 Intake Total 6139.482 4619 908.921 Output Total 1210 320 122 Balance 57.654 2173 786.921 Weight 45 kg 45.2 kg Intake: IV 935 1925 675 Anidulafungin 100 mg In 100 100 Sodium Chloride 0.9% 100 ml @ 84 mls/hr IVPB DAILY [facility] Rx#:[id number] Meropenem 1 gm In Sodium 100 100 100 Chloride 0.9% 100 ml @ 33 .3 mls/hr IVPB Q12HR [facility] Rx#:[id number] Sodium Chloride 0.9% 1, 485 825 225 000 ml @ 75 mls/hr IV . [id number] [facility] Rx#:[id number] Sodium Chloride 0.9% 1, 1000 000 ml @ 999 mls/hr IV . Q1H1M [facility] Rx#:[id number] Vancomycin 750 mg In 250 250 Sodium Chloride 0.9% 250 ml @ 125 mls/hr IVPB ONCE [facility] Rx#:[id number] Intake, IV Titration 129.654 101.921 Amount propofoL 1,000 mg In 129.654 Empty Bag 1 bag @ Titrate IV .Q0M [facility] Rx#: [id number] propofoL 1,000 mg In 101.921 Empty Bag 1 bag @ Titrate IV .Q0M [facility] Rx#: [id number] Tube Feeding 83 408 102 Other 120 160 30 Output: Urine 1210 320 122 Other: Voiding Method Indwelling Catheter Indwelling Catheter Indwelling Catheter ABP, PAP, CO, CI - Last Documented Arterial Blood Pressure 157/94 - Exam PHYSICAL EXAMINATION: GENERAL: Patient is presently intubated, sedated HEENT: Pupils are round and equally reacting to light. EOMI. No scleral icterus. No conjunctival pallor. Normocephalic, atraumatic. No pharyngeal erythema. No thyromegaly. CARDIOVASCULAR: S1 and S2 present. No murmurs, rubs, or gallops. PULMONARY: Bilatral rhonchi ABDOMEN: Soft, nontender, nondistended, normoactive bowel sounds. No palpable o rganomegaly. MUSCULOSKELETAL: No joint swelling or deformity. EXTREMITIES: No cyanosis, clubbing, or pedal edema. NEUROLOGICAL: Patient is sedated SKIN: No rashes. - Labs CBC & Chem 7: 03/24/20 04:00 03/24/20 04:00 Labs: Abnormal Lab Results - Last 24 Hours (Table) 03/23/20 03/23/20 03/24/20 Range/Units 17:47 23:55 04:00 RBC 2.81 L (3.80-5.40) m/uL Hgb 8.6 L D (11.4-16.0) gm/dL Hct 25.7 L (34.0-46.0) % RDW 18.1 H (11.5-15.5) % Plt Count 43 L (150-450) k/uL ABG pCO2 (35-45) mmHg ABG O2 Saturation (94-97) % Chloride (98-107) mmol/L BUN (7-17) mg/dL Creatinine (0.52-1.04) mg/dL Glucose (74-99) mg/dL POC Glucose (mg/dL) 112 H 114 H (75-99) mg/dL Calcium (8.4-10.2) mg/dL 03/24/20 03/24/20 03/24/20 Range/Units 04:00 05:35 05:40 RBC (3.80-5.40) m/uL Hgb (11.4-16.0) gm/dL Hct (34.0-46.0) % RDW (11.5-15.5) % Plt Count (150-450) k/uL ABG pCO2 34 L (35-45) mmHg ABG O2 Saturation 98.7 H (94-97) % Chloride 117 H (98-107) mmol/L BUN 45 H (7-17) mg/dL Creatinine 1.25 H (0.52-1.04) mg/dL Glucose 107 H (74-99) mg/dL POC Glucose (mg/dL) 137 H (75-99) mg/dL Calcium 6.7 L (8.4-10.2) mg/dL 03/24/20 Range/Units 11:19 RBC (3.80-5.40) m/uL Hgb (11.4-16.0) gm/dL Hct (34.0-46.0) % RDW (11.5-15.5) % Plt Count (150-450) k/uL ABG pCO2 (35-45) mmHg ABG O2 Saturation (94-97) % Chloride (98-107) mmol/L BUN (7-17) mg/dL Creatinine (0.52-1.04) mg/dL Glucose (74-99) mg/dL POC Glucose (mg/dL) 131 H (75-99) mg/dL Calcium (8.4-10.2) mg/dL Microbiology - Last 24 Hours (Table) 03/16/20 09:30 Acid Fast Bacilli Smear - Final Bronchial Washings - Right Acid Fast Bacilli Culture - Preliminary 03/23/20 09:15 Gram Stain - Preliminary Bronchoalviolar Lavage - Right Bronchial Washings Culture - Preliminary 03/23/20 09:15 Acid Fast Bacilli Culture - Preliminary Bronchoalviolar Lavage - Right 03/23/20 09:15 Fungal Culture - Preliminary Bronchoalviolar Lavage - Right Assessment and Plan Plan: Acute on chronic hypoxic and hypercapnic respiratory failure: Secondary to pn eumonia and COPD exacerbation patient was extubated on 03/19/2020, patient was pretty status worsened overnight last night and patient was subsequently transferred to ICU and intubated today that is on the 03/23/2020 chest x-ray showing worsening infiltrate and the patient is presently on broad-spectrum antibiotics as mentioned above -Right upper lobe pneumonia, patient is on meropenem, vancomycin and antifungal. White blood cell count improved today -Anemia multifactorial including that of chronic disease including multiple myeloma - COPD exacerbation in a ex-smoker, -Chronic congestive heart failure from systolic and diastolic dysfunction EF 50- 55% patient is not in acute exacerbation -Moderate tricuspid and severe mitral regurgitation, nontraumatic -Severe secondary pulmonary hypertension secondary to COPD -Multiple myeloma on chemotherapy -Chronic kidney disease secondary to multiple myeloma stage IV and chronic interstitial nephropathy -Essential hypertension -Hyperlipidemia -Severe protein calorie malnutrition due to poor oral intake. BMI 14.4 -Chronic medical debility -Multiple old rib fractures due to multiple myeloma -Acute kidney injury possibly combination of ATN and prerenal-improved correlation present creatinine is 1.2, better compared to even to her baseline Considering her multiple myeloma patient prognosis overall is extremely poor.
[2020-03-24] MEDS: CALCIUM CARB-VIT D 500 MG-5 MCG TAB PO SCH (12:49)
[2020-03-24] MEDS: SODIUM BICARBONATE TAB 650 MG TAB PO SCH ×2 (12:50→22:28)
[2020-03-24] MEDS: SERTRALINE 100 MG TAB PO SCH (12:51)
--- NOTE | 2020-03-24 13:36 | P.PN ---
Subjective Progress Note Date: 03/24/20 Principal diagnosis: PNA, multiple myeloma Sedated and mechanically ventilated x 2 this hospitalization. Objective - Vital Signs Vital signs: Vital Signs Temp 98.1 F 03/24/20 12:00 Pulse 68 03/24/20 13:00 Resp 23 03/24/20 13:00 BP 106/60 03/24/20 13:00 Pulse Ox 98 03/24/20 13:00 Intake & Output 03/23/20 03/24/20 03/24/20 18:59 06:59 18:59 Intake Total 5345.595 1425 1235.921 Output Total 1210 320 207 Balance 57.654 2173 1028.921 Weight 45 kg 45.2 kg Intake: IV 935 1925 900 Anidulafungin 100 mg In 100 100 Sodium Chloride 0.9% 100 ml @ 84 mls/hr IVPB DAILY [facility] Rx#:[id number] Meropenem 1 gm In Sodium 100 100 100 Chloride 0.9% 100 ml @ 33 .3 mls/hr IVPB Q12HR [facility] Rx#:[id number] Sodium Chloride 0.9% 1, 485 825 450 000 ml @ 75 mls/hr IV . [id number] [facility] Rx#:[id number] Sodium Chloride 0.9% 1, 1000 000 ml @ 999 mls/hr IV . Q1H1M [facility] Rx#:[id number] Vancomycin 750 mg In 250 250 Sodium Chloride 0.9% 250 ml @ 125 mls/hr IVPB ONCE [facility] Rx#:[id number] Intake, IV Titration 129.654 101.921 Amount propofoL 1,000 mg In 129.654 Empty Bag 1 bag @ Titrate IV .Q0M [facility] Rx#: [id number] propofoL 1,000 mg In 101.921 Empty Bag 1 bag @ Titrate IV .Q0M [facility] Rx#: [id number] Tube Feeding 83 408 204 Other 120 160 30 Output: Urine 1210 320 207 Other: Voiding Method Indwelling Catheter Indwelling Catheter Indwelling Catheter ABP, PAP, CO, CI - Last Documented Arterial Blood Pressure 103/41 - Constitutional General appearance: Present: thin - Respiratory Respiratory: bilateral: diminished - Cardiovascular Heart sounds: normal: S1, S2 - Peripheral edema leg Peripheral Edema: bilateral: Trace - Gastrointestinal General gastrointestinal: Present: normal bowel sounds - Neurologic Neurologic: Absent: CNII-XII intact, focal deficits - Musculoskeletal Musculoskeletal: Absent: gait normal, generalized weakness, strength equal bilaterally, right sided weakness, left sided weakness - Psychiatric Psychiatric: Absent: A&O x's 3, appropriate affect, intact judgment & insight - Labs CBC & Chem 7: 03/24/20 04:00 03/24/20 04:00 Labs: Abnormal Lab Results - Last 24 Hours (Table) 03/23/20 03/23/20 03/24/20 Range/Units 17:47 23:55 04:00 RBC 2.81 L (3.80-5.40) m/uL Hgb 8.6 L D (11.4-16.0) gm/dL Hct 25.7 L (34.0-46.0) % RDW 18.1 H (11.5-15.5) % Plt Count 43 L (150-450) k/uL ABG pCO2 (35-45) mmHg ABG O2 Saturation (94-97) % Chloride (98-107) mmol/L BUN (7-17) mg/dL Creatinine (0.52-1.04) mg/dL Glucose (74-99) mg/dL POC Glucose (mg/dL) 112 H 114 H (75-99) mg/dL Calcium (8.4-10.2) mg/dL 03/24/20 03/24/20 03/24/20 Range/Units 04:00 05:35 05:40 RBC (3.80-5.40) m/uL Hgb (11.4-16.0) gm/dL Hct (34.0-46.0) % RDW (11.5-15.5) % Plt Count (150-450) k/uL ABG pCO2 34 L (35-45) mmHg ABG O2 Saturation 98.7 H (94-97) % Chloride 117 H (98-107) mmol/L BUN 45 H (7-17) mg/dL Creatinine 1.25 H (0.52-1.04) mg/dL Glucose 107 H (74-99) mg/dL POC Glucose (mg/dL) 137 H (75-99) mg/dL Calcium 6.7 L (8.4-10.2) mg/dL 03/24/20 Range/Units 11:19 RBC (3.80-5.40) m/uL Hgb (11.4-16.0) gm/dL Hct (34.0-46.0) % RDW (11.5-15.5) % Plt Count (150-450) k/uL ABG pCO2 (35-45) mmHg ABG O2 Saturation (94-97) % Chloride (98-107) mmol/L BUN (7-17) mg/dL Creatinine (0.52-1.04) mg/dL Glucose (74-99) mg/dL POC Glucose (mg/dL) 131 H (75-99) mg/dL Calcium (8.4-10.2) mg/dL Microbiology - Last 24 Hours (Table) 03/23/20 09:22 Blood Culture - Preliminary Blood No Growth after 24 hours 03/16/20 09:30 Acid Fast Bacilli Smear - Final Bronchial Washings - Right Acid Fast Bacilli Culture - Preliminary 03/23/20 09:15 Gram Stain - Preliminary Bronchoalviolar Lavage - Right Bronchial Washings Culture - Preliminary 03/23/20 09:15 Acid Fast Bacilli Culture - Preliminary Bronchoalviolar Lavage - Right 03/23/20 09:15 Fungal Culture - Preliminary Bronchoalviolar Lavage - Right - Imaging and Cardiology Chest x-ray: report reviewed Assessment and Plan (1) [place]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 Her most recent M-spike was 0.19g/dl, stable. 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
[2020-03-24] MEDS: METOPROLOL TARTRATE 25 MG TAB PO SCH ×2 (15:20→22:28)
--- NOTE | 2020-03-24 15:20 | PN ---
PROGRESS NOTE DATE OF SERVICE: 03/24/2020 REASON FOR FOLLOWUP: Pneumonia. INTERVAL HISTORY: The patient is currently afebrile. The patient remains intubated . The patient is hemodynamically stable. FiO2 is currently 40%. No significant purulent secretion through the ET or any diarrhea reported by the nursing staff. PHYSICAL EXAMINATION: Blood pressure 106/60, pulse of 68, temperature 98.1. She is 98% on 40% FiO2. General description is a middle-aged female intubated on the vent. RESPIRATORY SYSTEM: Unlabored breathing with decreased breath sounds at the base. No wheeze. HEART: S1, S2. Regular rate and rhythm. ABDOMEN: Soft. No tenderness. LABS: Hemoglobin is 8.3, white count 4.5, BUN of 45, creatinine 1.25. DIAGNOSTIC IMPRESSION AND PLAN: Patient with acute respiratory failure which is multifactorial in this patient who did have a component of pneumonia, for which the patient received an adequate amount of antibiotic therapy, with recurrent respiratory failure and intubation. Will keep the patient on meropenem at this point and will monitor clinical course closely. Continue with supportive care. MMODL / IJN: [id number] /
[2020-03-24 17:06] LABS: Glucose,Whole Blood 125 mg/dL (75-99)
[2020-03-24 18:11] LABS: Glucose,Whole Blood 111 mg/dL (75-99)
[2020-03-24] MEDS: SODIUM CHLORIDE 0.9% 1,000 ML IV SCH (18:17)
[2020-03-24 23:46] LABS: Glucose,Whole Blood 153 mg/dL (75-99)
[2020-03-25] MEDS: LATANOPROST 0.005% OPHTH DROPS 2.5 ML BTL BOTH EYES SCH ×2 (03:15→23:50)
[2020-03-25] MEDS: methylPREDNISolone SOD SUCCI 125 MG/2 ML VIAL IV SCH ×6 (03:16→23:53)
[2020-03-25] MEDS: INSULIN ASPART (NovoLOG) 100 UNIT/ML VIAL SQ SCH ×5 (03:16→20:48)
[2020-03-25 04:17] LABS: ABG HCO3 22 mmol/L (21-25); ABG Oxygen Saturation 99.5 % (94-97); ABG PCO2 33 mmHg (35-45); ABG PH 7.42 (7.35-7.45); ABG PO2 131 mmHg (83-108); ABG TCO2 23 mmol/L (19-24)
[2020-03-25 04:51] LABS: Allen Test Performed? no
[2020-03-25 05:29] LABS: Glucose,Whole Blood 115 mg/dL (75-99)
[2020-03-25] MEDS: SODIUM CHLORIDE 0.9% 1,000 ML IV SCH ×2 (06:01→12:14)
[2020-03-25 07:05] LABS: Calcium 6.5 mg/dL (8.4-10.2); Potassium 3.5 mmol/L (3.5-5.1)
[2020-03-25 07:06] LABS: Anisocytosis Slight; HCT 25.7 % (34.0-46.0); HGB 8.1 gm/dL (11.4-16.0); Hypochromasia Moderate; MCH 29.6 pg (25.0-35.0); MCHC 31.6 g/dL (31.0-37.0); MCV 93.7 fL (80.0-100.0); Macrocytosis Slight; Mean Platelet Volume 10.1; RBC 2.74 m/uL (3.80-5.40); RDW 18.6 % (11.5-15.5); WBC 4.3 k/uL (3.8-10.6)
[2020-03-25 07:07] LABS: Platelet Count 61 k/uL (150-450)
--- NOTE | 2020-03-25 07:29 | P.PN ---
Subjective Progress Note Date: 03/25/20 This is a very pleasant 69-year-old female admitted on March 08, 2020. She has a history of atrial fibrillation/flutter, congestive heart failure, chronic obstructive pulmonary disease with chronic hypoxic respiratory failure, CVA/TIA, hypertension, hyperlipidemia, rheumatoid arthritis, COPD with previous chronic tobacco dependence. She also has a history of multiple myeloma and is currently on Revlimid. Her initial diagnosis this admission was atrial fibrillation with RVR, black stools, and pneumonia. She was initially admitted to the stepdown unit, and came to the intensive care unit on March 11. She did require 3 units of packed red blood cells for her anemia. Because of worsening respiratory status and hypoxemia, she was intubated on 03/14/2020 and successfully extubated on 03/19/2020. She had undergone bronchoscopy with BAL of the right upper lobe. Cultures positive for Nicolle only. The patient this morning the chest into the intensive care unit. Apparently overnight the patient was getting progressively more short of breath. He got transferred to the intensive. Earlier this morning and the patient was intubated and placed on a mechanical ventilator. Note that the patient currently is sedated with propofol it is running at 50 g per KG per minute. The patient is on assist control mode of ventilation at the rate of 20 with a tidal volume of 350 and FiO2 of 50% with a PEEP of 5. Current pulse ox is 98%. Peak airway pressures 38. Chest x-ray shows multiple bila teral rib fractures in addition to extensive consolidation of the right is essentially worse compared to her previous chest x-rays. Her white cell count is up to 32. She is currently on IV Merrem. The patient is also chronically on prednisone maintained at a dose of 20 mg by mouth daily. Cardiac rhythm is sinus. She is very much thin and frail and cachectic looking. She has cold sores on her lips and she is currently on Valtrex. On today's evaluation of 03/24/2020, seeing the patient for a follow-up. As mentioned earlier, the patient was intubated and placed on a mechanical ventilator for an acute and recurrent respiratory failure. The chest x-ray showed extensive consolidation of the right upper lobe along with a cavitating right upper lobe pulmonary infiltrates/pneumonia. The patient was already taking melatonin. Vancomycin and atelectasis was also added to her regimen. Th is morning, the patient remains on a mechanical ventilator. She is an assist- control mode at the rate of 20 with a tidal volume of 350 and FiO2 of 40% with a PEEP of 5. Chest x-ray from today adequate positioning of the orotracheal tube. There is still consolidation of the right upper lobe and this has improved considerably compared to yesterday. The patient has multiple areas of rib fractures bilaterally. Orogastric tube is in place. Comparing the x-ray from yesterday, there is improvement in the right upper lobe consolidation and elevation. Noted the patient is also post bronchoscopy that was done yesterday and we collected a lavage of the right upper lobe. cultures are still pending for now. the patient is still on broad-spectrum antibiotics and the patient is currently receiving a combination of meropenem, atelectasis and vancomycin. she is afebrile for now. her white cell count is at 4.7 with a hemoglobin of 8.6. blood gases from today showed a ph of 7.43 with a pco2 of 34 and po2 of 106 and this was done above-mentioned ventilator setting. he had a 45 with a creatinine of 1.25. she is improved compared to yesterday. the patient is receiving enteral feeding for nutritional support and currently she is on vital high protein at the rate of 34 ml an hour. she has no abdominal distention. there is 1 bowel movement activity yet. she is on no pressors. He still having some loose bloody respiratory secretions. Bronchoscopy that was done yesterday showed no evidence of any endobronchial tumors or lesions or foreign bodies. As mentioned, culture are still pending. The patient is known to have COPD and previous history of multiple myeloma. Her cardiac rhythm is sinus and she is known to have previous history of atrial fibrillation. She is on no antico agulants for now. On Lovenox for DVT prophylaxis dose of 30 mg subcu every 24 hours. On 03/25/2020, I'm seeing the patient on a follow-up. the patient and Mrs sedated with propofol and this is running at 60 mcg/kg per minute. She is hemodynamically stable. The propofol be gradually weaned off. We attempted to wean her to yesterday, however the patient seemed to have a high rapid shallow breathing index and she was a bit uncomfortable. Based on that, we avoided the extubation process. She was placed back on sedation and she's been off sedation since. She is calm and comfortable that she is easily arousable. She is on a mechanical ventilator on assist control mode at a rate of 20 with tidal volume of 50 and FiO2 of 40% with a PEEP of 5. Her blood gases from today shows a pH of 7.42 with a pCO2 of 33 and pO2 of 131. Chest x-ray shows right upper lobe consolidation with seems to be improving. Bronchoscopy and the right upper lobe bronchioloalveolar lavage was done and the cultures are still negative and the patient continues to be on a combination of meropenem, vancomycin and Eraxis. She has been afebrile for now. No significant orotracheal secretions. There is some loose bloody secretions in her orotracheal tube is being suctioned out. She is having an adequate urine output. She is on Lovenox for DVT prophylaxis. This was held yesterday because of some drop in the platelet count. The white cell count today is at 4.3 with a platelet count of 61 and I think the Lovenox can be restarted. BUN is at 49 with a creatinine of 1.2 Objective - Vital Signs Vital signs: Vital Signs Temp 98.2 F 03/25/20 04:00 Pulse 54 L 03/25/20 07:00 Resp 22 03/25/20 07:00 BP 118/57 03/25/20 07:00 Pulse Ox 100 03/25/20 07:00 Intake & Output 03/24/20 03/25/20 03/25/20 18:59 06:59 18:59 Intake Total 5166.863 9102.592 109 Output Total 352 285 40 Balance 0337.467 4345.592 69 Weight 47 kg Intake: IV 1275 925 75 Anidulafungin 100 mg In 100 Sodium Chloride 0.9% 100 ml @ 84 mls/hr IVPB DAILY [facility] Rx#:[id number] Meropenem 1 gm In Sodium 100 100 Chloride 0.9% 100 ml @ 33 .3 mls/hr IVPB Q12HR [facility] Rx#:[id number] Sodium Chloride 0.9% 1, 825 825 75 000 ml @ 75 mls/hr IV . [id number] [facility] Rx#:[id number] Vancomycin 750 mg In 250 Sodium Chloride 0.9% 250 ml @ 125 mls/hr IVPB ONCE ONE Rx#:[id number] Intake, IV Titration 196.163 183.592 Amount propofoL 1,000 mg In 196.163 183.592 Empty Bag 1 bag @ Titrate IV .Q0M [facility] Rx#: [id number] Tube Feeding 374 442 34 Other 60 90 Output: Urine 352 285 40 Other: Voiding Method Indwelling Catheter Indwelling Catheter ABP, PAP, CO, CI - Last Documented Arterial Blood Pressure 141/57 - Exam GENERAL EXAM: Alert, very pleasant, 61-year-old frail looking female patient she is still intubated on a mechanical ventilator, quite sedated on this morning. Nevertheless, she is easily arousable. Orotracheal and orogastric tube are both in place. EYES: Normal reaction of pupils, equal size. Conjunctiva pink, sclera white. NOSE: Clear with pink turbinates. THROAT: No erythema or exudates. NECK: No masses, no JVD, no thyroid enlargement, no adenopathy. CHEST: No chest wall deformity. Symmetrical expansion. LUNGS: Equal air entry with diminished breath over right upper lobe, no wheeze, rhonchi or dullness. CVS: Regular rate and rhythm, normal S1 and S2, no gallops, no murmurs, no rubs ABDOMEN: Soft, nontender. No hepatosplenomegaly, normal bowel sounds, no guarding or rigidity. EXTREMITIES: No clubbing, no edema, no cyanosis, 2+ pulses and upper and lower extremities. MUSCULOSKELETAL: Muscle strength and tone normal. SPINE: No scoliosis or deformity SKIN: No rashes CENTRAL NERVOUS SYSTEM: Sedated, withdraws to painful his condition all 4 extremities. PSYCHIATRIC: Unable to obtain - Labs CBC & Chem 7: 03/25/20 05:20 03/25/20 05:20 Labs: Abnormal Lab Results - Last 24 Hours (Table) 03/23/20 03/24/20 03/24/20 Range/Units 09:15 11:19 17:04 RBC (3.80-5.40) m/uL Hgb (11.4-16.0) gm/dL Hct (34.0-46.0) % RDW (11.5-15.5) % Plt Count (150-450) k/uL ABG pCO2 (35-45) mmHg ABG pO2 (83-108) mmHg ABG O2 Saturation (94-97) % Chloride (98-107) mmol/L BUN (7-17) mg/dL Creatinine (0.52-1.04) mg/dL Glucose (74-99) mg/dL POC Glucose (mg/dL) 131 H 125 H (75-99) mg/dL Calcium (8.4-10.2) mg/dL Viral Test See Below A 03/24/20 03/24/20 03/25/20 Range/Units 18:11 23:43 04:15 RBC (3.80-5.40) m/uL Hgb (11.4-16.0) gm/dL Hct (34.0-46.0) % RDW (11.5-15.5) % Plt Count (150-450) k/uL ABG pCO2 33 L (35-45) mmHg ABG pO2 131 H (83-108) mmHg ABG O2 Saturation 99.5 H (94-97) % Chloride (98-107) mmol/L BUN (7-17) mg/dL Creatinine (0.52-1.04) mg/dL Glucose (74-99) mg/dL POC Glucose (mg/dL) 111 H 153 H (75-99) mg/dL Calcium (8.4-10.2) mg/dL Viral Test 03/25/20 03/25/20 03/25/20 Range/Units 05:20 05:20 05:27 RBC 2.74 L (3.80-5.40) m/uL Hgb 8.1 L (11.4-16.0) gm/dL Hct 25.7 L (34.0-46.0) % RDW 18.6 H (11.5-15.5) % Plt Count 61 L (150-450) k/uL ABG pCO2 (35-45) mmHg ABG pO2 (83-108) mmHg ABG O2 Saturation (94-97) % Chloride 118 H (98-107) mmol/L BUN 49 H (7-17) mg/dL Creatinine 1.21 H (0.52-1.04) mg/dL Glucose 111 H (74-99) mg/dL POC Glucose (mg/dL) 115 H (75-99) mg/dL Calcium 6.5 L (8.4-10.2) mg/dL Viral Test Microbiology - Last 24 Hours (Table) 03/23/20 09:15 Acid Fast Bacilli Smear - Final Bronchoalviolar Lavage - Right Acid Fast Bacilli Culture - Preliminary 03/23/20 09:22 Blood Culture - Preliminary Blood No Growth after 24 hours Assessment and Plan Plan: 1 Acute hypoxic respiratory failure requiring intubation and mechanical ventilation from 03/14 - 03/19/2020 secondary to an acute right upper lung the pneumonia, status post bronchoscopy with BAL. After being extubated, the patient will be admitted to the intensive care unit with worsening hypoxemia respiratory failure. The patient is currently intubated on a mechanical ventilator. Chest x-ray shows extensive consolidation of the right upper lobe. Her previous CAT scan of the chest from 01/10/2020 showed emphysema with upper lobe predominance. There was however some creatinine but opacity in the lung bases bilaterally. Nevertheless, the current findings are quite extensive and the patient developed worsening in the right upper lobe pulmonary cavitary consolidation. She was intubated on 03/23/2020 and the chest x-ray showed extensive consolidation of the right upper lobe. Bronchoscopy was done and the results showing any significant bacteria or fungal microbial growth. The patient remained on the same antibiotic coverage. As mentioned earlier, the chest x-ray is showing some improvement in the right upper lobe findings. Meanwhile, the patient's failed this point is breathing trial and her weaning parameters work for yesterday. The same will be done today as the patient will be taken off the sedation and she'll be given another small to his breathing trial. 2 Right-sided atypical chest pain secondary to above , inactive stable 3 Leukocytosis secondary to above, improved with a white cell count of 4.3. Her white cell count is up from 32 down to 4.3. 4 Anemia, current hemoglobin 8.1, slightly lower compared to yesterday, received 3 units of packed red blood cells during the course of this admission 5 Acute renal failure, covered, current creatinine 1.21, stable 6 Lactic acidosis secondary to above, recovered 7 Multiple myeloma with abnormal uptake associated sedated with the patient's right lower lobe lung mass, currently on Revlimid 8 Chronic obstructive pulmonary disease with previous chronic tobacco dependence 9 Acute on chronic kidney disease, stage IIIIV, and the patient stable creatinine is at 1.25. 10 History of diastolic congestive heart failure 11 Paroxysmal atrial fibrillation/flutter with RVR, currently in sinus rhythm and maintained on Eliquis, currently off anticoagulation because of history of bleeding. Her current rhythm is sinus. 12 Previous history of CVA 13 Hypertension 14 Hyperlipidemia 15 Chronic anxiety 16 thrombocytopenia, platelet counts are stable Plan The patient most likely has a recurrent pneumonia. Continue the combination meropenem, vancomycin and Eraxis Waiting the final results from the bronchoscopy and lavage Hold sedation Check weaning parameters Give the patient a spontaneous breathing trial Down the IV fluids to 40 mL an hour Monitor the gases Monitor hemoglobin blood culture are negative for now and the patient cultures of been all negative and stable for now. Continue the rest of the supportive care. Hematologic profile is stable. Platelet counts are stable. Restart Lovenox. Possibly extubated today is on her ability to recover from sedation and based on her weaning parameters and her ability to perform an adequate point is breathing trial. I'm inclined of extubating this patient today Condition is critical and will continue to follow make further recommendation. Critical care evaluation, more than 30 minutes. Time with Patient: Greater than 30
[2020-03-25] MEDS ORDERED: Potassium Replacement Protocol 1 EACH MISC MISCELLANE PRN (07:33)
[2020-03-25] MEDS: IPRATROPIUM-ALBUTEROL 3 ML NEB INHALATION SCH ×4 (08:06→20:01)
[2020-03-25] MEDS: PANTOPRAZOLE 40 MG/10 ML VIAL IVP SCH ×2 (08:14→20:30)
[2020-03-25] MEDS: POTASSIUM BICARBONATE/CIT AC 20 MEQ TABLET.EFF NG-TUBE SCH ×2 (08:14→08:26)
[2020-03-25] MEDS: CHLORHEXIDINE GLUCONATE 15 ML CUP MUCOUS MEM SCH (08:14)
[2020-03-25] MEDS: ANIDULAFUNGIN 100 MG in SODIUM CHLORIDE 0.9% 100 ML IVPB SCH (08:14)
[2020-03-25] MEDS: valACYclovir 500 MG TAB PO SCH ×2 (08:15→20:21)
[2020-03-25] MEDS: MEROPENEM 1 GM in SODIUM CHLORIDE 0.9% 100 ML IVPB SCH ×2 (08:39→20:29)
--- NOTE | 2020-03-25 09:10 | XR ---
EXAMINATION TYPE: XR chest 1V portable DATE OF EXAM: 03/25/2020 COMPARISON: 03/24/2020 INDICATION: Tube placement TECHNIQUE: Single frontal view of the chest is obtained. FINDINGS: The heart size is normal. The pulmonary vasculature is normal. Right upper lobe patchy infiltrate is present. Milder infiltrates are scattered through the left lung and right lower lobe. Old left-sided rib fractures are evident. Some old right-sided rib fractures a re evident. There is a step-off of the 6 right lateral rib not identified previously may be a new fr acture. No pneumothorax is evident. Right apical thickening is present. Endotracheal tube tip is above the yun. Nasogastric tube transverses the thorax. IMPRESSION: 1. Scattered infiltrates greatest in the right upper lobe. 2. A new right lateral sixth rib fractures not excluded. Correlate with the patient's symptoms. 3. Lines and catheters discussed above
[2020-03-25 09:18] LABS: Vancomycin,Random 13.6 ug/mL
[2020-03-25] MEDS: hydrALAZINE HCL 20 MG/ML 1 ML VIAL IVP PRN (11:02)
[2020-03-25] MEDS: CALCIUM CARB-VIT D 500 MG-5 MCG TAB PO SCH (11:25)
[2020-03-25] MEDS: SODIUM BICARBONATE TAB 650 MG TAB PO SCH ×2 (11:26→20:21)
[2020-03-25] MEDS: METOPROLOL TARTRATE 25 MG TAB PO SCH ×2 (11:26→20:21)
[2020-03-25 11:53] LABS: Glucose,Whole Blood 107 mg/dL (75-99)
[2020-03-25] MEDS ORDERED: VANCOMYCIN 750 MG in SODIUM CHLORIDE 0.9% 250 ML IVPB ONE (12:00)
[2020-03-25] MEDS: SERTRALINE 100 MG TAB PO SCH (12:14)
--- NOTE | 2020-03-25 15:20 | P.PN ---
Subjective Progress Note Date: 03/25/20 Principal diagnosis: PNA, multiple myeloma 1st time I have seen pt this visit off vent. She is so pleasant and grateful, she has weak, congested cough, mouth and lips dry, she is a little confused on time, she is asking for chocolate Objective - Vital Signs Vital signs: Vital Signs Temp 97.7 F 03/25/20 08:00 Pulse 76 03/25/20 14:00 Resp 28 H 03/25/20 14:00 BP 134/68 03/25/20 13:00 Pulse Ox 98 03/25/20 14:00 Intake & Output 03/24/20 03/25/20 03/25/20 18:59 06:59 18:59 Intake Total 0434.371 4699.592 1137.016 Output Total 352 285 470 Balance 2079.237 8816.592 667.016 Weight 47 kg Intake: IV 0293 801 1422 Anidulafungin 100 mg In 100 100 Sodium Chloride 0.9% 100 ml @ 84 mls/hr IVPB DAILY [facility] Rx#:[id number] Meropenem 1 gm In Sodium 100 100 100 Chloride 0.9% 100 ml @ 33 .3 mls/hr IVPB Q12HR [facility] Rx#:[id number] Sodium Chloride 0.9% 1, 825 825 600 000 ml @ 75 mls/hr IV . [id number] [facility] Rx#:[id number] Vancomycin 750 mg In 250 Sodium Chloride 0.9% 250 ml @ 125 mls/hr IVPB ONCE ONE Rx#:[id number] Vancomycin 750 mg In 250 Sodium Chloride 0.9% 250 ml @ 125 mls/hr IVPB ONCE ONE Rx#:[id number] Intake, IV Titration 196.163 183.592 53.016 Amount propofoL 1,000 mg In 196.163 183.592 53.016 Empty Bag 1 bag @ Titrate IV .Q0M [facility] Rx#: [id number] Tube Feeding 374 442 34 Other 60 90 Output: Urine 352 285 470 Other: Voiding Method Indwelling Catheter Indwelling Catheter Indwelling Catheter ABP, PAP, CO, CI - Last Documented Arterial Blood Pressure 97/75 - Constitutional General appearance: Present: cooperative, mild distress, thin - EENT EENT Comment(s): dry mucus membranes, dry, bloody lips Eyes: Present: anicteric sclerae, EOMI - Respiratory Details: expiratory rhonchi - Cardiovascular Rhythm: regular Heart sounds: normal: S1, S2 Abnormal Heart Sounds: Absent: systolic murmur, diastolic murmur, rub, S3 Gallop, S4 Gallop, click, other - Peripheral edema leg Peripheral Edema: bilateral: Trace - Gastrointestinal General gastrointestinal: Present: normal bowel sounds, soft - Integumentary Integumentary Comment(s): dry - Musculoskeletal Musculoskeletal: Present: generalized weakness - Psychiatric Psychiatric Comment(s): A&O x 2 Psychiatric: Present: appropriate affect - Labs CBC & Chem 7: 03/25/20 05:20 03/25/20 05:20 Labs: Abnormal Lab Results - Last 24 Hours (Table) 03/24/20 03/24/20 03/24/20 Range/Units 17:04 18:11 23:43 RBC (3.80-5.40) m/uL Hgb (11.4-16.0) gm/dL Hct (34.0-46.0) % RDW (11.5-15.5) % Plt Count (150-450) k/uL ABG pCO2 (35-45) mmHg ABG pO2 (83-108) mmHg ABG O2 Saturation (94-97) % Chloride (98-107) mmol/L BUN (7-17) mg/dL Creatinine (0.52-1.04) mg/dL Glucose (74-99) mg/dL POC Glucose (mg/dL) 125 H 111 H 153 H (75-99) mg/dL Calcium (8.4-10.2) mg/dL 03/25/20 03/25/20 03/25/20 Range/Units 04:15 05:20 05:20 RBC 2.74 L (3.80-5.40) m/uL Hgb 8.1 L (11.4-16.0) gm/dL Hct 25.7 L (34.0-46.0) % RDW 18.6 H (11.5-15.5) % Plt Count 61 L (150-450) k/uL ABG pCO2 33 L (35-45) mmHg ABG pO2 131 H (83-108) mmHg ABG O2 Saturation 99.5 H (94-97) % Chloride 118 H (98-107) mmol/L BUN 49 H (7-17) mg/dL Creatinine 1.21 H (0.52-1.04) mg/dL Glucose 111 H (74-99) mg/dL POC Glucose (mg/dL) (75-99) mg/dL Calcium 6.5 L (8.4-10.2) mg/dL 03/25/20 03/25/20 Range/Units 05:27 11:51 RBC (3.80-5.40) m/uL Hgb (11.4-16.0) gm/dL Hct (34.0-46.0) % RDW (11.5-15.5) % Plt Count (150-450) k/uL ABG pCO2 (35-45) mmHg ABG pO2 (83-108) mmHg ABG O2 Saturation (94-97) % Chloride (98-107) mmol/L BUN (7-17) mg/dL Creatinine (0.52-1.04) mg/dL Glucose (74-99) mg/dL POC Glucose (mg/dL) 115 H 107 H (75-99) mg/dL Calcium (8.4-10.2) mg/dL Microbiology - Last 24 Hours (Table) 03/23/20 09:22 Blood Culture - Preliminary Blood No Growth after 48 hours 03/23/20 09:15 Gram Stain - Preliminary Bronchoalviolar Lavage - Right Bronchial Washings Culture - Preliminary Presumptive Staph aureus 03/23/20 09:15 Acid Fast Bacilli Smear - Final Bronchoalviolar Lavage - Right Acid Fast Bacilli Culture - Preliminary Assessment and Plan (1) 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 Her most recent M-spike was 0.19g/dl, stable. 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
--- NOTE | 2020-03-25 16:06 | PN ---
PROGRESS NOTE DATE OF SERVICE: 03/25/2020 REASON FOR FOLLOWUP: Pneumonia. INTERVAL HISTORY: The patient is afebrile. The patient has been extubated. The patient is hemodynamically stable not on pressor support. The patient is breathing comfortably, currently on room air. The patient denies having any chest pain. She did have minimal cough. No abdominal pain or diarrhea. PHYSICAL EXAMINATION: Blood pressure is 134/68 with pulse of 80, temperature 97.7. She is 97% on 2 L nasal cannula. General description is an elderly female lying in bed in no distress. RESPIRATORY SYSTEM: Unlabored breathing, decreased intensity of breath sounds in the base. No wheeze. HEART: S1, S2. Regular rate and rhythm. ABDOMEN: Soft, no tenderness. LAB DATA: Hemoglobin 8.1, white count 4.3, BUN of 49, creatinine 1.21. Blood culture has been negative so far. Bronchoalveolar lavage on the has been negative so far. DIAGNOSTIC IMPRESSION AND PLAN: Patient with acute respiratory failure, which is multifactorial, did have a component of pneumonia. The patient is currently covered with meropenem, vancomycin, with bronch culture showing presumptive Staph aureus. Continue current antibiotics while waiting for the culture to finalize and monitor clinical course closely. MMODL / IJN: [id number] /
[2020-03-25 18:14] LABS: Hemoglobin A1C 5.4 % (4.0-6.0)
--- NOTE | 2020-03-25 20:06 | P.PN ---
Progress Note - Text Progress Note Date: 03/25/20 Presenting complaint: Intubated Interval history: This is a very pleasant 69-year-old patient of Dr. Villalobos. Chronic stable medical conditions include paroxysmal atrial flutter fibrillation, , CHF with an EF of 50-55%, tricuspid and mitral regurgitation, secondary pulmonary hypertension, chronic kidney disease stage IV, hypertension, hyperlipidemia,. Patient also being treated for multiple myeloma. on REVLIMID Patient presented with shortness of breath confusion cough congestion. Admitted with right upper lobe pneumonia, acute delirium. Started on IV aztreonam and azithromycin. Developed black tarry stools. Dropped hemoglobin. 1 unit of blood given. Patient desaturated. Moved to the ICU on March 11. Intubated March 14-placed on IV levo fed propofol antibiotics changed to IV meropenem. bronchoscopy done by Dr. Hart[March 16]-thick philomena, secretions obtained. Extubated March 19. Patient had to be reintubated. Patient underwent repeat bronchoscopy on March 23. [id number]-pvatfqjok today. Reclining in bed. 4 L nasal cannula. Tired. Review of systems: Attempted for constitutional, cardiovascular, GI, pulmonary. relevant finding as above Active Medications Acetaminophen (Acetaminophen Tab 325 Mg Tab) 650 mg PO Q4HR PRN PRN Reason: Fever and/ or Pain Last Admin: 03/11/20 22:00 Dose: 650 mg Documented by: Albuterol/Ipratropium (Ipratropium-Albuterol 3 Ml Neb) 3 ml INHALATION RT-QID [facility] Last Admin: 03/25/20 20:01 Dose: 3 ml Documented by: Apixaban (Apixaban 5 Mg Tab) 2.5 mg PO BID [facility] Calcitriol (Calcitriol 0.25 Mcg Cap) 0.25 mcg PO PC-LUNCH [facility] Last Admin: 03/25/20 12:14 Dose: Not Given Documented by: Calcium Carbonate (Calcium Carb-Vit D 500mg-200un 1 Each Tab) 2 each PO DAILY@1200 [facility] Last Admin: 03/25/20 11:25 Dose: Not Given Documented by: Hydralazine HCl (Hydralazine Hcl 20 Mg/Ml 1 Ml Vial) 10 mg IVP Q6HR PRN PRN Reason: Blood Pressure - High Last Admin: 03/25/20 11:02 Dose: 10 mg Documented by: Meropenem 1 gm/ Sodium (Chloride) 100 mls @ 33.3 mls/hr IVPB Q12HR [facility]; Protocol Last Admin: 03/25/20 08:39 Dose: 33.3 mls/hr Documented by: Anidulafungin 100 mg/ Sodium (Chloride) 100 mls @ 84 mls/hr IVPB DAILY [facility] Last Admin: 03/25/20 08:14 Dose: 84 mls/hr Documented by: Sodium Chloride (Saline 0.9%) 1,000 mls @ 40 mls/hr IV .Q24H [facility] Last Admin: 03/25/20 12:14 Dose: 75 mls/hr Documented by: Insulin Aspart (Insulin Aspart (Novolog) 100 Unit/Ml Vial) 0 unit SQ ACHS [facility]; Protocol Last Admin: 03/25/20 18:33 Dose: Not Given Documented by: Latanoprost (Latanoprost 0.005% Ophth Drops 2.5 Ml Btl) 1 drops BOTH EYES HS [facility] Last Admin: 03/25/20 03:15 Dose: Not Given Documented by: Methylprednisolone Sodium Succinate (Methylprednisolone Sod Succi 125 Mg/2 Ml Vial) 60 mg IV Q6HR [facility] Last Admin: 03/25/20 18:36 Dose: 60 mg Documented by: Metoprolol Tartrate (Metoprolol Tartrate 25 Mg Tab) 25 mg PO BID@1200,2100 [facility] Last Admin: 03/25/20 11:26 Dose: Not Given Documented by: Miscellaneous Information (Pneumonia Protocol Utilized 1 Each [facility] [place]) 1 each PO ONCE PRN PRN Reason: Per Protocol Miscellaneous Information (Potassium Replacement Protocol 1 Each [facility] [place]) 1 each MISCELLANE DAILY PRN; Protocol PRN Reason: Per Protocol Miscellaneous Information (Vancomycin Iv Per Pharmacy 1 Each [facility] [place]) 1 each MISCELLANE DIRECTED PRN; Protocol PRN Reason: Per Protocol Miscellaneous Information (Potassium Replacement Protocol 1 Each [facility] [place]) 1 each MISCELLANE DAILY PRN; Protocol PRN Reason: Per Protocol Pantoprazole Sodium (Pantoprazole 40 Mg/10 Ml Vial) 40 mg IVP BID [facility] Last Admin: 03/25/20 08:14 Dose: 40 mg Documented by: Sertraline HCl (Sertraline 100 Mg Tab) 200 mg PO PC-LUNCH [facility] Last Admin: 03/25/20 12:14 Dose: Not Given Documented by: Sodium Bicarbonate (Sodium Bicarbonate Tab 650 Mg Tab) 1,300 mg PO DAILY@1200 [facility] Last Admin: 03/25/20 11:26 Dose: Not Given Documented by: Sodium Bicarbonate (Sodium Bicarbonate Tab 650 Mg Tab) 650 mg PO HS [facility] Last Admin: 03/24/20 22:28 Dose: 650 mg Documented by: Valacyclovir HCl (Valacyclovir 500 Mg Tab) 500 mg PO BID [facility] Last Admin: 03/25/20 08:15 Dose: 500 mg Documented by: Physical examination: VITAL SIGNS: 97.7, 55, 22, 1 59 x 66, on 4 L nasal cannula GENERAL: Reclining in bed,, tired, awake EYES: Pupils equal. Conjunctiva pale HEENT: External appearance of nose and ears normal, oral G-tube NECK: JVD not raised; masses not palpable. HEART: First and second heart sounds are normal; no edema. LUNGS: Respiratory rate increased, decreased breath sounds ABDOMEN: Soft, nontender, liver spleen not palpable, no masses palpable. PSYCH: Difficult to assess MUSCULOSKELETAL: Diffuse wasting of muscles Investigations, reviewed in the clinical context: March 25: White count 4.3 hemoglobin 8.1 platelet 61 potassium 3.5 bun 49 creatinine 1.21 March 19: White count 9.5 hemoglobin 10.8 platelets 40 potassium 3.9 bun 66 creatinine 1.7 to March 18: White count 9.1 hemoglobin 10.2 potassium 3.7 bun 62 creatinine 1.83 Chest x-ray film personally reviewed by me-infiltrate clearing March 16: White count 9.3 hemoglobin 10 platelets 46 potassium 4.2 BUN 50 creatinine 1.88 March 15: White count 7.4 hemoglobin 5.9 platelets 50 BUN 38 creatinine 1.5 for March 14: White count 12.3 hemoglobin 7.4 potassium 4.8 bun 39 creatinine 1.43. ABG show pH of 7.15 March 13: White count 15.4 hemoglobin 8.7 platelets 91 bun 36 creatinine 1.48 March 12: White count 23.4 hemoglobin 9.2 platelets 113. Check stat x-ray film-right upper lobe dense infiltrate March 11: White count 9.2 hemoglobin 6 platelets 86potassium 5 creatinine 1.56 pro-calcitonin 1.34 Pro-calcitonin 1.84 White count 14 hemoglobin 8.1 platelets 134 potassium 4.2 BUN 47 creatinine 2.64 Lactic acid 4.9 Coronavirus P/Cr-not detected VQ scan-low probability for PE EKG tracing personally reviewed by me-normal sinus rhythm some ST segment changes Chest u-hmk-ifpxip infiltrate throughout the right upper lobe and the superior segment of the right lower lobe Ncjagkdpwqli-ohmfqaun-Yugwivg albicans Sputum-Nicolle albicans Assessment: -Right upper lobe pneumonia, suspect gram-negative organism in an immunosuppressed patient, , POA,- -Paroxysmal atrial flutter and fibrillation-with rapid ventricular rate then went back into sinus rhythm -Anemia multifactorial including that of chronic disease including multiple myeloma -Acute COPD exacerbation in a ex-smoker, -Chronic congestive heart failure from systolic and diastolic dysfunction EF 50- 55% -Moderate tricuspid and severe mitral regurgitation, nontraumatic -Severe secondary pulmonary hypertension secondary to CHF and COPD -Multiple myeloma on chemotherapy -Chronic kidney disease secondary to multiple myeloma stage IV and chronic interstitial nephropathy -Essential hypertension -Hyperlipidemia -Severe protein calorie malnutrition due to poor oral intake. BMI 14.4 -Chronic medical debility -Multiple old rib fractures due to multiple myeloma -Acute GI bleed dropping hemoglobin down to 6.-Received total of 3 units of blood, AGG Deford for now. -Acute hypoxic respiratory failure-worsening overnight-intubated on the ventilator March 14-extubated March 19. Currently on 4 L nasal cannula -Hypotensive status post levo fed -Acute kidney injury possibly combination of ATN and prerenal-improved Plan: Patient on IV Anidulafungin, eliquis, IV meropenem, IV Solu-Medrol, IV vancomycin, valacyclovir. Follow closely with pulmonary.
[2020-03-25] MEDS: APIXABAN 5 MG TAB PO SCH (20:22)
[2020-03-25 20:39] LABS: Glucose,Whole Blood 123 mg/dL (75-99)
[2020-03-26] MEDS: hydrALAZINE HCL 20 MG/ML 1 ML VIAL IVP PRN (02:29)
[2020-03-26 03:52] LABS: Anisocytosis Slight; HCT 27.7 % (34.0-46.0); HGB 9.2 gm/dL (11.4-16.0); Hypochromasia Slight; MCH 30.7 pg (25.0-35.0); MCHC 33.3 g/dL (31.0-37.0); MCV 92.3 fL (80.0-100.0); Mean Platelet Volume 10.5; RDW 18.5 % (11.5-15.5); WBC 5.3 k/uL (3.8-10.6)
[2020-03-26 04:08] LABS: Platelet Count 63 k/uL (150-450)
[2020-03-26 04:15] LABS: Calcium 6.8 mg/dL (8.4-10.2)
[2020-03-26 04:20] LABS: Vancomycin,Random 19.6 ug/mL
[2020-03-26 05:06] LABS: Potassium 4.3 mmol/L (3.5-5.1)
[2020-03-26] MEDS: SODIUM CHLORIDE 0.9% 1,000 ML IV SCH (05:53)
[2020-03-26] MEDS: methylPREDNISolone SOD SUCCI 125 MG/2 ML VIAL IV SCH ×2 (06:17→13:54)
[2020-03-26 06:33] LABS: Glucose,Whole Blood 105 mg/dL (75-99)
[2020-03-26] MEDS: INSULIN ASPART (NovoLOG) 100 UNIT/ML VIAL SQ SCH ×4 (06:42→21:03)
--- NOTE | 2020-03-26 07:28 | P.PN ---
Subjective Progress Note Date: 03/26/20 This is a very pleasant 69-year-old female admitted on March 08, 2020. She has a history of atrial fibrillation/flutter, congestive heart failure, chronic obstructive pulmonary disease with chronic hypoxic respiratory failure, CVA/TIA, hypertension, hyperlipidemia, rheumatoid arthritis, COPD with previous chronic tobacco dependence. She also has a history of multiple myeloma and is currently on Revlimid. Her initial diagnosis this admission was atrial fibrillation with RVR, black stools, and pneumonia. She was initially admitted to the stepdown unit, and came to the intensive care unit on March 11. She did require 3 units of packed red blood cells for her anemia. Because of worsening respiratory status and hypoxemia, she was intubated on 03/14/2020 and successfully extubated on 03/19/2020. She had undergone bronchoscopy with BAL of the right upper lobe. Cultures positive for Nicolle only. The patient this morning the chest into the intensive care unit. Apparently overnight the patient was getting progressively more short of breath. He got transferred to the intensive. Earlier this morning and the patient was intubated and placed on a mechanical ventilator. Note that the patient currently is sedated with propofol it is running at 50 g per KG per minute. The patient is on assist control mode of ventilation at the rate of 20 with a tidal volume of 350 and FiO2 of 50% with a PEEP of 5. Current pulse ox is 98%. Peak airway pressures 38. Chest x-ray shows multiple bila teral rib fractures in addition to extensive consolidation of the right is essentially worse compared to her previous chest x-rays. Her white cell count is up to 32. She is currently on IV Merrem. The patient is also chronically on prednisone maintained at a dose of 20 mg by mouth daily. Cardiac rhythm is sinus. She is very much thin and frail and cachectic looking. She has cold sores on her lips and she is currently on Valtrex. On today's evaluation of 03/24/2020, seeing the patient for a follow-up. As mentioned earlier, the patient was intubated and placed on a mechanical ventilator for an acute and recurrent respiratory failure. The chest x-ray showed extensive consolidation of the right upper lobe along with a cavitating right upper lobe pulmonary infiltrates/pneumonia. The patient was already taking melatonin. Vancomycin and atelectasis was also added to her regimen. Th is morning, the patient remains on a mechanical ventilator. She is an assist- control mode at the rate of 20 with a tidal volume of 350 and FiO2 of 40% with a PEEP of 5. Chest x-ray from today adequate positioning of the orotracheal tube. There is still consolidation of the right upper lobe and this has improved considerably compared to yesterday. The patient has multiple areas of rib fractures bilaterally. Orogastric tube is in place. Comparing the x-ray from yesterday, there is improvement in the right upper lobe consolidation and elevation. Noted the patient is also post bronchoscopy that was done yesterday and we collected a lavage of the right upper lobe. cultures are still pending for now. the patient is still on broad-spectrum antibiotics and the patient is currently receiving a combination of meropenem, atelectasis and vancomycin. she is afebrile for now. her white cell count is at 4.7 with a hemoglobin of 8.6. blood gases from today showed a ph of 7.43 with a pco2 of 34 and po2 of 106 and this was done above-mentioned ventilator setting. he had a 45 with a creatinine of 1.25. she is improved compared to yesterday. the patient is receiving enteral feeding for nutritional support and currently she is on vital high protein at the rate of 34 ml an hour. she has no abdominal distention. there is 1 bowel movement activity yet. she is on no pressors. He still having some loose bloody respiratory secretions. Bronchoscopy that was done yesterday showed no evidence of any endobronchial tumors or lesions or foreign bodies. As mentioned, culture are still pending. The patient is known to have COPD and previous history of multiple myeloma. Her cardiac rhythm is sinus and she is known to have previous history of atrial fibrillation. She is on no antico agulants for now. On Lovenox for DVT prophylaxis dose of 30 mg subcu every 24 hours. On 03/25/2020, I'm seeing the patient on a follow-up. the patient and Mrs sedated with propofol and this is running at 60 mcg/kg per minute. She is hemodynamically stable. The propofol be gradually weaned off. We attempted to wean her to yesterday, however the patient seemed to have a high rapid shallow breathing index and she was a bit uncomfortable. Based on that, we avoided the extubation process. She was placed back on sedation and she's been off sedation since. She is calm and comfortable that she is easily arousable. She is on a mechanical ventilator on assist control mode at a rate of 20 with tidal volume of 50 and FiO2 of 40% with a PEEP of 5. Her blood gases from today shows a pH of 7.42 with a pCO2 of 33 and pO2 of 131. Chest x-ray shows right upper lobe consolidation with seems to be improving. Bronchoscopy and the right upper lobe bronchioloalveolar lavage was done and the cultures are still negative and the patient continues to be on a combination of meropenem, vancomycin and Eraxis. She has been afebrile for now. No significant orotracheal secretions. There is some loose bloody secretions in her orotracheal tube is being suctioned out. She is having an adequate urine output. She is on Lovenox for DVT prophylaxis. This was held yesterday because of some drop in the platelet count. The white cell count today is at 4.3 with a platelet count of 61 and I think the Lovenox can be restarted. BUN is at 49 with a creatinine of 1.2 On 03/26/2020, the patient is being seen for a follow-up. The patient was weaned off the mechanical ventilator and the patient was extubated to 2 L of oxygen by nasal cannula. This morning she is awake and alert she is following commands and answering questions appropriately. A follow-up chest x-ray was done this morning and is still showing some chronic consolidation of the right upper lobe. Multiple rib fractures bilaterally. No interval worsening. As for the bronchioloalveolar lavage from the previous bronchoscopy, it showed presumed staph species and the final cultures and sensitivities is pending.. There was a viral growth with HSV. The patient is receiving a combination of meropenem, vancomycin and Eraxis. He is doing well. Her white cell count today is at 5.3 with hemoglobin of 9.2. Blood work shows a stable renal function. She remains on IV fluids at 40 mL an hour of normal saline. She is awake and alert and communicating. No other significant events overnight. She was extubated successfully. Her platelet count from today is 63 which is stable compared to yesterday. Objective - Vital Signs Vital signs: Vital Signs Temp 97.9 F 03/26/20 04:00 Pulse 70 03/26/20 07:00 Resp 20 03/26/20 07:00 BP 153/68 03/26/20 07:00 Pulse Ox 96 03/26/20 07:00 Intake & Output 03/25/20 03/26/20 03/26/20 18:59 06:59 18:59 Intake Total 1437.016 580 40 Output Total 800 785 60 Balance 637.016 -205 -20 Weight 50.4 kg Intake: IV 1350 480 40 Anidulafungin 100 mg In 100 Sodium Chloride 0.9% 100 ml @ 84 mls/hr IVPB DAILY [facility] Rx#:[id number] Meropenem 1 gm In Sodium 100 Chloride 0.9% 100 ml @ 33 .3 mls/hr IVPB Q12HR [facility] Rx#:[id number] Sodium Chloride 0.9% 1, 900 480 40 000 ml @ 40 mls/hr IV . Q24H [facility] Rx#:[id number] Vancomycin 750 mg In 250 Sodium Chloride 0.9% 250 ml @ 125 mls/hr IVPB ONCE ONE Rx#:[id number] Intake, IV Titration 53.016 100 Amount Meropenem 1 gm In Sodium 100 Chloride 0.9% 100 ml @ 33 .3 mls/hr IVPB Q12HR [facility] Rx#:[id number] propofoL 1,000 mg In 53.016 Empty Bag 1 bag @ Titrate IV .Q0M [facility] Rx#: [id number] Tube Feeding 34 Output: Urine 700 785 60 Stool 100 Other: Voiding Method Indwelling Catheter Indwelling Catheter ABP, PAP, CO, CI - Last Documented Arterial Blood Pressure 146/53 - Exam GENERAL EXAM: Alert, very pleasant, 61-year-old frail looking female patient she is extubated at 2 L of oxygen by nasal cannula Nevertheless, she is easily arousable. Orotracheal and orogastric tube are both in place. EYES: Normal reaction of pupils, equal size. Conjunctiva pink, sclera white. NOSE: Clear with pink turbinates. THROAT: No erythema or exudates. NECK: No masses, no JVD, no thyroid enlargement, no adenopathy. CHEST: No chest wall deformity. Symmetrical expansion. LUNGS: Equal air entry with diminished breath over right upper lobe, no wheeze, rhonchi or dullness. CVS: Regular rate and rhythm, normal S1 and S2, no gallops, no murmurs, no rubs ABDOMEN: Soft, nontender. No hepatosplenomegaly, normal bowel sounds, no guarding or rigidity. EXTREMITIES: No clubbing, no edema, no cyanosis, 2+ pulses and upper and lower extremities. MUSCULOSKELETAL: Muscle strength and tone normal. SPINE: No scoliosis or deformity SKIN: No rashes CENTRAL NERVOUS SYSTEM: Alert and oriented 3, there is global generalized muscle weakness. PSYCHIATRIC: Unable to obtain - Labs CBC & Chem 7: 03/26/20 03:30 03/26/20 03:30 Labs: Abnormal Lab Results - Last 24 Hours (Table) 03/25/20 03/25/20 03/26/20 Range/Units 11:51 20:37 03:30 RBC 3.00 L (3.80-5.40) m/uL Hgb 9.2 L (11.4-16.0) gm/dL Hct 27.7 L (34.0-46.0) % RDW 18.5 H (11.5-15.5) % Plt Count 63 L (150-450) k/uL Chloride (98-107) mmol/L BUN (7-17) mg/dL Creatinine (0.52-1.04) mg/dL Glucose (74-99) mg/dL POC Glucose (mg/dL) 107 H 123 H (75-99) mg/dL Calcium (8.4-10.2) mg/dL 03/26/20 03/26/20 Range/Units 03:30 06:31 RBC (3.80-5.40) m/uL Hgb (11.4-16.0) gm/dL Hct (34.0-46.0) % RDW (11.5-15.5) % Plt Count (150-450) k/uL Chloride 119 H (98-107) mmol/L BUN 46 H (7-17) mg/dL Creatinine 1.11 H (0.52-1.04) mg/dL Glucose 110 H (74-99) mg/dL POC Glucose (mg/dL) 105 H (75-99) mg/dL Calcium 6.8 L (8.4-10.2) mg/dL Microbiology - Last 24 Hours (Table) 03/23/20 09:22 Blood Culture - Preliminary Blood No Growth after 48 hours 03/23/20 09:15 Gram Stain - Preliminary Bronchoalviolar Lavage - Right Bronchial Washings Culture - Preliminary Presumptive Staph aureus Assessment and Plan Plan: 1 Acute hypoxic respiratory failure requiring intubation and mechanical ventilation from 03/14 - 03/19/2020 secondary to an acute right upper lung the pneumonia, status post bronchoscopy with BAL. After being extubated, the jen alanis will be admitted to the intensive care unit with worsening hypoxemia respiratory failure. The patient is currently intubated on a mechanical ventilator. Chest x-ray shows extensive consolidation of the right upper lobe. Her previous CAT scan of the chest from 01/10/2020 showed emphysema with upper lobe predominance. There was however some creatinine but opacity in the lung bases bilaterally. Nevertheless, the current findings are quite extensive and the patient developed worsening in the right upper lobe pulmonary cavitary consolidation. She was intubated on 03/23/2020 and the chest x-ray showed extensive consolidation of the right upper lobe. She was extubated on 03/25/2020. She is currently on 2 L of oxygen by nasal cannula. Bronchoscopy was done and is showing staph species and the patient is currently on a combination of vancomycin, Merrem and Eraxis. Eraxis was added due to previous evaluations yielding Nicolle. She is currently on 2 L of oxygen by nasal cannula. 2 Right-sided atypical chest pain secondary to above , inactive stable 3 Leukocytosis secondary to above, improved 4 Anemia, current hemoglobin 9.2 5 Acute renal failure, covered, current creatinine 1.1, stable 6 Lactic acidosis secondary to above, recovered 7 Multiple myeloma with abnormal uptake associated sedated with the patient's right lower lobe lung mass, currently on Revlimid 8 Chronic obstructive pulmonary disease with previous chronic tobacco dependence 9 Acute on chronic kidney disease, stage IIIIV, and the patient stable creatinine is at 1.1. 10 History of diastolic congestive heart failure 11 Paroxysmal atrial fibrillation/flutter with RVR, currently in sinus rhythm and maintained on Eliquis, currently off anticoagulation because of history of bleeding. Her current rhythm is sinus. 12 Previous history of CVA 13 Hypertension 14 Hyperlipidemia 15 Chronic anxiety 16 thrombocytopenia, platelet counts are stable Plan The patient most likely has a recurrent pneumonia severity hospital-acquired pneumonia with staph and the patient is currently on a combination of antibiotics. She is extubated.. Continue the combination meropenem, vancomycin and Eraxis Waiting the final results from the bronchoscopy and lavage Down the IV fluids to 40 mL an hour Monitor the gases Monitor hemoglobin Continue the rest of the supportive care. Hematologic profile is stable. Platelet counts are stable. Restart Lovenox. The patient passed a swallow evaluation Advance diet Transfer to a medical floor exerting remains stable he'll afternoon. She may need also telemetry.
[2020-03-26] MEDS: IPRATROPIUM-ALBUTEROL 3 ML NEB INHALATION SCH ×4 (07:36→20:20)
--- NOTE | 2020-03-26 07:57 | XR ---
EXAMINATION TYPE: XR chest 1V portable DATE OF EXAM: 03/26/2020 COMPARISON: 03/25/2020 INDICATION: Short of breath TECHNIQUE: Single frontal view of the chest is obtained. FINDINGS: The heart size is normal. The pulmonary vasculature is normal. Right upper lobe consolidation is present. Remaining patchy infiltrates appear to be improving. Multi ple prior bilateral rib fractures are evident. The previous suspected right rib fractures not evident currently. Right apical thickening is present. No pneumothorax is evident. IMPRESSION: 1. Stable right upper lobe consolidation. 2. There may be some improvement of prior additional infiltrates
[2020-03-26] MEDS: ANIDULAFUNGIN 100 MG in SODIUM CHLORIDE 0.9% 100 ML IVPB SCH (08:57)
[2020-03-26] MEDS: APIXABAN 5 MG TAB PO SCH ×2 (08:57→20:55)
[2020-03-26] MEDS: PANTOPRAZOLE 40 MG/10 ML VIAL IVP SCH ×2 (08:58→20:56)
[2020-03-26] MEDS: valACYclovir 500 MG TAB PO SCH ×2 (08:58→20:56)
[2020-03-26] MEDS: MEROPENEM 1 GM in SODIUM CHLORIDE 0.9% 100 ML IVPB SCH (09:36)
[2020-03-26 11:53] LABS: Glucose,Whole Blood 98 mg/dL (75-99)
--- NOTE | 2020-03-26 12:47 | CDI ---
Documentation Clarification Form Date: 03/26/2020 12:37:39 PM From: Allie BeckerNeal, CCS, CCDS Admit Date: 03/08/2020 05:56:00 AM Patient Name: Lucero Coleman Visit Number: [id number] Discharge Date: ATTENTION: The Clinical Documentation Specialists (CDI) and [facility] Coding Staff appreciate your assistance in clarifying documentation. Please respond to the clarification below the line at the bottom and electronically sign. The CDI & [facility] Coding staff will review the response and follow-up if needed. Please note: Queries are made part of the Legal Health Record. If you have any questions, please contact the author of this message via ITS. Dr. Christopher Serrano: Sepsis is documented in the 03/11 Clinical Documentation Query: "Sepsis, ruled in from pneumonia." Sepsis is also documented in the 03/08 ED Note, the 03/08 History Physical and the 03/08 Infectious Disease Consult. Sepsis has not been documented in subsequent documentation. 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 Clinical Indicators: Presented to the ED on 03/08 with SOB and cough via EMS. Found to have a RUL infiltrate, tachycardic, hypotensive, elevated lactic acidosis in atrial flutter. Given Sepsis bolus started on Cardizem IV Antibiotics in ED. 03/08 VS: T 98.2, P 61 - 152 , R 20 - 24 , BP 91/69*, PO 92 3Lnc 03/08 LAB: WBC 14.0 , RBC 2.64*, Hgb 8.1*, Hct 26.1*, Pl Ct 134*, Neut 12.8*, Lymph 0.5*, D Dimer 1.61 , Cl 108 , CO2 18*, BUN 47 , Cr 2.64 , Glucose 188 , L actic Acid (0.8), ALT 35 , Alk Phos 151 . UA: clear, trace protein 03/08 Blood Cultures x2:Negative @ 72 hours, final pending. COVID Negative 03/08 RAD 03/08: CXR: Severe infiltration throughout the RUL likely within the superior segment of the RLL.VQ: Low evidence of acute PE. Consults: Cardiology 03/08: RUL Pneumonia, COPD exacerbation and Atrial Fibrillation w/RVR. Pulmonary 03/08: Acute Hypoxic Respiratory Failure secondary to acute RUL Pneumonia, suspect community acquired, GREGORY, Lactic Acidosis. Treatment on Admission: IV Cardizem Drip Bolus, IV Cardizem, IV fluid 1,000 mls @ 130 mls/hr q7, IV fluid 500 mls @ 1000 mls/hr q30M, IV Azithromycin, IV Aztreonam, IV fluid 1,000 mls @ 130 mls/hr q7, INH Duoneb, INH Symbicort, po Eliquis Patient was re-intubated on 03/23 and extubated on 03/25 to 4Lnc. In your professional opinion, please clarify if these findings signify one of the following conditions, whether the condition is POA, and cause, if known: Sepsis ruled out Sepsis ruled in o Please specify cause suspected organism if know: Severe Sepsis: o Please specify organ failure: Other, please specify Unable to determine Present on Admission o Yes o No (Last Revision: June 2017) ____ sepsis, POA MTDD
[2020-03-26] MEDS: CALCIUM CARB-VIT D 500 MG-5 MCG TAB PO SCH (13:54)
[2020-03-26] MEDS: SODIUM BICARBONATE TAB 650 MG TAB PO SCH ×2 (13:55→20:56)
[2020-03-26] MEDS: METOPROLOL TARTRATE 25 MG TAB PO SCH ×2 (13:55→20:55)
[2020-03-26] MEDS: SERTRALINE 100 MG TAB PO SCH (13:56)
[2020-03-26] MEDS: VANCOMYCIN 750 MG in SODIUM CHLORIDE 0.9% 250 ML IVPB SCH (14:33)
--- NOTE | 2020-03-26 15:03 | P.PN ---
Subjective Progress Note Date: 03/26/20 Principal diagnosis: PNA, multiple myeloma In f/u pt is doing better, more alert and oriented, she cont to have cough but less congested, less O2 needs. She continues to be pleasant, wants to do whatever she can to get better. She also had questions about code status and what resuscitation is. She is not complaining of anything. Objective - Vital Signs Vital signs: Vital Signs Temp 98.5 F 03/26/20 08:00 Pulse 77 03/26/20 11:49 Resp 0 L 03/26/20 10:00 BP 153/70 03/26/20 10:00 Pulse Ox 96 03/26/20 10:00 Intake & Output 03/25/20 03/26/20 03/26/20 18:59 06:59 18:59 Intake Total 1437.016 580 360 Output Total 800 785 280 Balance 637.016 -205 80 Weight 50.4 kg 50.4 kg Intake: IV 1350 480 360 Anidulafungin 100 mg In 100 100 Sodium Chloride 0.9% 100 ml @ 84 mls/hr IVPB DAILY [facility] Rx#:[id number] Meropenem 1 gm In Sodium 100 100 Chloride 0.9% 100 ml @ 33 .3 mls/hr IVPB Q12HR [facility] Rx#:[id number] Sodium Chloride 0.9% 1, 900 480 160 000 ml @ 40 mls/hr IV . Q24H [facility] Rx#:[id number] Vancomycin 750 mg In 250 Sodium Chloride 0.9% 250 ml @ 125 mls/hr IVPB ONCE ONE Rx#:[id number] Intake, IV Titration 53.016 100 Amount Meropenem 1 gm In Sodium 100 Chloride 0.9% 100 ml @ 33 .3 mls/hr IVPB Q12HR [facility] Rx#:[id number] propofoL 1,000 mg In 53.016 Empty Bag 1 bag @ Titrate IV .Q0M [facility] Rx#: [id number] Tube Feeding 34 Output: Urine 700 785 280 Stool 100 Other: Voiding Method Indwelling Catheter Indwelling Catheter Indwelling Catheter ABP, PAP, CO, CI - Last Documented Arterial Blood Pressure 146/53 - Constitutional General appearance: Present: cooperative, no acute distress, thin - EENT EENT Comment(s): dry mucus membranes, dry cracked, chapped lips Eyes: Present: anicteric sclerae, EOMI ENT: Present: hearing grossly normal - Respiratory Respiratory: left: rales (anterior, expiratory), bilateral: diminished - Cardiovascular Rhythm: regular Heart sounds: normal: S1, S2 Abnormal Heart Sounds: Absent: systolic murmur, diastolic murmur, rub, S3 Gallop, S4 Gallop, click, other - Peripheral edema foot Peripheral Edema: bilateral: Trace - Gastrointestinal General gastrointestinal: Present: normal bowel sounds, soft. Absent: absent bowel sounds, decreased bowel sounds, distended, hepatomegaly, hyperactive bowel sounds, organomegaly, rigid, scaphoid, splenomegaly, tenderness, umbilical hernia, ventral hernia - Neurologic Neurologic: Present: CNII-XII intact - Musculoskeletal Musculoskeletal: Present: generalized weakness - Psychiatric Psychiatric: Present: A&O x's 3, appropriate affect, intact judgment & insight - Labs CBC & Chem 7: 03/26/20 03:30 03/26/20 03:30 Labs: Abnormal Lab Results - Last 24 Hours (Table) 03/25/20 03/26/20 03/26/20 Range/Units 20:37 03:30 03:30 RBC 3.00 L (3.80-5.40) m/uL Hgb 9.2 L (11.4-16.0) gm/dL Hct 27.7 L (34.0-46.0) % RDW 18.5 H (11.5-15.5) % Plt Count 63 L (150-450) k/uL Chloride 119 H (98-107) mmol/L BUN 46 H (7-17) mg/dL Creatinine 1.11 H (0.52-1.04) mg/dL Glucose 110 H (74-99) mg/dL POC Glucose (mg/dL) 123 H (75-99) mg/dL Calcium 6.8 L (8.4-10.2) mg/dL 03/26/20 Range/Units 06:31 RBC (3.80-5.40) m/uL Hgb (11.4-16.0) gm/dL Hct (34.0-46.0) % RDW (11.5-15.5) % Plt Count (150-450) k/uL Chloride (98-107) mmol/L BUN (7-17) mg/dL Creatinine (0.52-1.04) mg/dL Glucose (74-99) mg/dL POC Glucose (mg/dL) 105 H (75-99) mg/dL Calcium (8.4-10.2) mg/dL Microbiology - Last 24 Hours (Table) 03/23/20 09:22 Blood Culture - Preliminary Blood No Growth after 72 hours 03/23/20 09:15 Gram Stain - Final Bronchoalviolar Lavage - Right Bronchial Washings Culture - Final Methicillin resist S. aureus - Imaging and Cardiology Chest x-ray: report reviewed Assessment and Plan (1) [place]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 Her most recent M-spike was 0.19g/dl, stable. Current Visit: No Status: Chronic Priority: Low Code(s): C90.00 - MULTIPLE MYELOMA NOT HAVING ACHIEVED REMISSION SNOMED Code(s): 087754668 (2) Bicytopenia Narrative/Plan: Not requiring transfusion at this time Resume DVT prophylaxis, plt 63,000 today Transfuse for Hgb<7, Hgb 9.2 today Current Visit: Yes Status: Chronic Priority: Medium Code(s): D75.89 - OTHER SPECIFIED DISEASES OF BLOOD AND BLOOD-FORMING ORGANS SNOMED Code(s): 39035412 (3) Hypogammaglobulinemia due to multiple myeloma Narrative/Plan: Given IVIG late last week for IgG of 489 and severe acute illness Current Visit: Yes Status: Acute Priority: High Code(s): D80.1 - NONFAMILIAL HYPOGAMMAGLOBULINEMIA; C90.00 - MULTIPLE MYELOMA NOT HAVING ACHIEVED REMISSION SNOMED Code(s): 67589428154889543 Plan: S/P bronch with washings, neg for malignancy S/P EGD with biopsy, negative path We discussed her COPD and lung infections with superimposed myeloma/treatment of myeloma making each instance of exacerbation more severe. Her body gets tired of the labored breathing and then she needs the help of the ventilator so her body can rest and her lungs can be treated. Her COPD exacerbations are becoming more frequent and after recovery from each instance her body is that much weaker taking longer to recover and likely not recovering to the level of strength she had before. We discussed CPR and intubation. We touched on code status. I encouraged her to ask questions. I told her that reconsidering her code status is reasonable. All the questions she had at this time were answered to the best of my ability. Time with Patient: Greater than 30 (>50% counseling and coordinating care)
[2020-03-26 16:52] LABS: Glucose,Whole Blood 163 mg/dL (75-99)
--- NOTE | 2020-03-26 17:25 | PN ---
PROGRESS NOTE DATE OF SERVICE: 03/26/2020 REASON FOR FOLLOWUP: Pneumonia. INTERVAL HISTORY: The patient is currently afebrile. The patient is breathing comfortably on nasal cannula oxygen. The patient denies having any chest pain. Some cough but not bringing up any sputum. No nausea, no vomiting, no abdominal pain or diarrhea. PHYSICAL EXAMINATION: Blood pressure 153/71, pulse 81, temperature 98. She is 96% on 2 L nasal cannula. General description is an elderly female lying in bed in no distress. RESPIRATORY SYSTEM: Unlabored breathing. Some coarse breath sounds at the bases. No wheeze. HEART: S1, S2. Regular rate and rhythm. ABDOMEN: Soft. No tenderness. LABS: Hemoglobin is 9.2, white count 5.3. BUN of 46, creatinine 1.11. Vancomycin level 19.6. Bronch cultures now showing MRSA. DIAGNOSTIC IMPRESSION AND PLAN: Patient with admission to hospital with pneumonia in this patient who did have right upper lobe consolidation. The patient has completed 2 weeks of IV meropenem, now with sputum showing predominantly MRSA. We will keep the patient on vancomycin while monitoring her kidney function closely. Discontinue meropenem, as no Gram-negative has been seen, and continue supportive care. MMODL / IJN: [id number] /
--- NOTE | 2020-03-26 17:40 | P.PN ---
Progress Note - Text Progress Note Date: 03/26/20 Presenting complaint: Intubated Interval history: This is a very pleasant 69-year-old patient of Dr. Villalobos. Chronic stable medical conditions include paroxysmal atrial flutter fibrillation, , CHF with an EF of 50-55%, tricuspid and mitral regurgitation, secondary pulmonary hypertension, chronic kidney disease stage IV, hypertension, hyperlipidemia,. Patient also being treated for multiple myeloma. on REVLIMID Patient presented with shortness of breath confusion cough congestion. Admitted with right upper lobe pneumonia, acute delirium. Started on IV aztreonam and azithromycin. Developed black tarry stools. Dropped hemoglobin. 1 unit of blood given. Patient desaturated. Moved to the ICU on March 11. Intubated March 14-placed on IV levo fed propofol antibiotics changed to IV meropenem. bronchoscopy done by Dr. Hart[March 16]-thick philomena, secretions obtained. Extubated March 19. Patient had to be reintubated. Patient underwent repeat bronchoscopy on March 23. Extubated March 25. [id number] nasal cannula. Oral intake about 25%. More awake. Tired. Review of systems: Attempted for constitutional, cardiovascular, GI, pulmonary. relevant finding as above Active Medications Acetaminophen (Acetaminophen Tab 325 Mg Tab) 650 mg PO Q4HR PRN PRN Reason: Fever and/ or Pain Last Admin: 03/11/20 22:00 Dose: 650 mg Documented by: Albuterol/Ipratropium (Ipratropium-Albuterol 3 Ml Neb) 3 ml INHALATION RT-QID [facility] Last Admin: 03/26/20 15:55 Dose: 3 ml Documented by: Apixaban (Apixaban 5 Mg Tab) 2.5 mg PO BID [facility] Last Admin: 03/26/20 08:57 Dose: 2.5 mg Documented by: Calcitriol (Calcitriol 0.25 Mcg Cap) 0.25 mcg PO PC-LUNCH [facility] Last Admin: 03/26/20 13:54 Dose: 0.25 mcg Documented by: Calcium Carbonate (Calcium Carb-Vit D 500mg-200un 1 Each Tab) 2 each PO DAILY@1200 [facility] Last Admin: 03/26/20 13:54 Dose: 2 each Documented by: Hydralazine HCl (Hydralazine Hcl 20 Mg/Ml 1 Ml Vial) 10 mg IVP Q6HR PRN PRN Reason: Blood Pressure - High Last Admin: 03/26/20 02:29 Dose: 10 mg Documented by: Sodium Chloride (Saline 0.9%) 1,000 mls @ 40 mls/hr IV .Q24H [facility] Last Admin: 03/26/20 05:53 Dose: Not Given Documented by: Vancomycin HCl 750 mg/ Sodium (Chloride) 250 mls @ 125 mls/hr IVPB Q24H [facility] Last Admin: 03/26/20 14:33 Dose: 125 mls/hr Documented by: Anidulafungin 100 mg/ Sodium (Chloride) 130 mls @ 84 mls/hr IVPB DAILY [facility] Insulin Aspart (Insulin Aspart (Novolog) 100 Unit/Ml Vial) 0 unit SQ ACHS [facility]; Protocol Last Admin: 03/26/20 13:46 Dose: Not Given Documented by: Latanoprost (Latanoprost 0.005% Ophth Drops 2.5 Ml Btl) 1 drops BOTH EYES [facility] Last Admin: 03/25/20 23:50 Dose: 1 drops Documented by: Methylprednisolone Sodium Succinate (Methylprednisolone Sod Succi 125 Mg/2 Ml Vial) 60 mg IV Q6HR [facility] Last Admin: 03/26/20 13:54 Dose: 60 mg Documented by: Metoprolol Tartrate (Metoprolol Tartrate 25 Mg Tab) 25 mg PO BID@1200,2100 [facility] Last Admin: 03/26/20 13:55 Dose: 25 mg Documented by: Miscellaneous Information (Pneumonia Protocol Utilized 1 Each Misc) 1 each PO ONCE PRN PRN Reason: Per Protocol Miscellaneous Information (Potassium Replacement Protocol 1 Each Misc) 1 each MISCELLANE DAILY PRN; Protocol PRN Reason: Per Protocol Pantoprazole Sodium (Pantoprazole 40 Mg/10 Ml Vial) 40 mg IVP BID [facility] Last Admin: 03/26/20 08:58 Dose: 40 mg Documented by: Sertraline HCl (Sertraline 100 Mg Tab) 200 mg PO PC-LUNCH [facility] Last Admin: 03/26/20 13:56 Dose: 200 mg Documented by: Sodium Bicarbonate (Sodium Bicarbonate Tab 650 Mg Tab) 1,300 mg PO DAILY@1200 [facility] Last Admin: 03/26/20 13:55 Dose: 1,300 mg Documented by: Sodium Bicarbonate (Sodium Bicarbonate Tab 650 Mg Tab) 650 mg PO HS [facility] Last Admin: 03/25/20 20:21 Dose: 650 mg Documented by: Valacyclovir HCl (Valacyclovir 500 Mg Tab) 500 mg PO BID [facility] Last Admin: 03/26/20 08:58 Dose: 500 mg Documented by: Physical examination: VITAL SIGNS: 77, 14, 159 with 71, 95% on 2 L GENERAL: Reclining in bed,, more awake today. EYES: Pupils equal. Conjunctiva pale HEENT: Dry lips. NECK: JVD not raised; masses not palpable. HEART: First and second heart sounds are normal; no edema. LUNGS: Respiratory rate increased, decreased breath sounds ABDOMEN: Soft, nontender, liver spleen not palpable, no masses palpable. PSYCH: Answering questions MUSCULOSKELETAL: Diffuse wasting of muscles Investigations, reviewed in the clinical context: March 26: White count 5.3 hemoglobin 9.2 platelets 63 potassium 4.3 creatinine 1.11 March 25: White count 4.3 hemoglobin 8.1 platelet 61 potassium 3.5 bun 49 creatinine 1.21 March 19: White count 9.5 hemoglobin 10.8 platelets 40 potassium 3.9 bun 66 creatinine 1.7 to March 18: White count 9.1 hemoglobin 10.2 potassium 3.7 bun 62 creatinine 1.83 Chest x-ray film personally reviewed by me-infiltrate clearing March 16: White count 9.3 hemoglobin 10 platelets 46 potassium 4.2 BUN 50 creatinine 1.88 March 15: White count 7.4 hemoglobin 5.9 platelets 50 BUN 38 creatinine 1.5 for March 14: White count 12.3 hemoglobin 7.4 potassium 4.8 bun 39 creatinine 1.43. ABG show pH of 7.15 March 13: White count 15.4 hemoglobin 8.7 platelets 91 bun 36 creatinine 1.48 March 12: White count 23.4 hemoglobin 9.2 platelets 113. Check stat x-ray film-right upper lobe dense infiltrate March 11: White count 9.2 hemoglobin 6 platelets 86potassium 5 creatinine 1.56 pro-calcitonin 1.34 Pro-calcitonin 1.84 White count 14 hemoglobin 8.1 platelets 134 potassium 4.2 BUN 47 creatinine 2.64 Lactic acid 4.9 Coronavirus P/Cr-not detected VQ scan-low probability for PE EKG tracing personally reviewed by me-normal sinus rhythm some ST segment changes Chest o-abx-nplfvq infiltrate throughout the right upper lobe and the superior segment of the right lower lobe Xunilogyaudm-vrsuxuvb-Fdchpjp albicans Sputum-Nicolle albicans Bronchial washing culture from March 23-MRSA Assessment: -Right upper lobe pneumonia, MRSA in an immunosuppressed patient, , POA,- -Paroxysmal atrial flutter and fibrillation-with rapid ventricular rate then went back into sinus rhythm -Anemia multifactorial including that of chronic disease including multiple myeloma -Acute COPD exacerbation in a ex-smoker, -Chronic congestive heart failure from systolic and diastolic dysfunction EF 50- 55% -Moderate tricuspid and severe mitral regurgitation, nontraumatic -Severe secondary pulmonary hypertension secondary to CHF and COPD -Multiple myeloma on chemotherapy -Chronic kidney disease secondary to multiple myeloma stage IV and chronic interstitial nephropathy -Essential hypertension -Hyperlipidemia -Severe protein calorie malnutrition due to poor oral intake. BMI 14.4 -Chronic medical debility -Multiple old rib fractures due to multiple myeloma -Acute GI bleed dropping hemoglobin down to 6.-Received total of 3 units of blood, AGG [place] for now. -Acute hypoxic respiratory failure-worsening overnight-intubated on the ventilator March 14-extubated March 19. Currently on 4 L nasal cannula -Hypotensive status post levo fed -Acute kidney injury possibly combination of ATN and prerenal-improved Plan: Patient on IV Anidulafungin, eliquis, , IV Solu-Medrol, IV vancomycin, valacyclovir. IV meropenem discontinued. Decreased dose of Solu-Medrol.
[2020-03-26] MEDS: LATANOPROST 0.005% OPHTH DROPS 2.5 ML BTL BOTH EYES SCH (20:46)
[2020-03-26 20:59] LABS: Glucose,Whole Blood 158 mg/dL (75-99)
[2020-03-27] MEDS: methylPREDNISolone SOD SUCCI 40 MG/ML 1 ML VIAL IV SCH ×3 (00:21→15:44)
[2020-03-27] MEDS: hydrALAZINE HCL 20 MG/ML 1 ML VIAL IVP PRN (03:26)
[2020-03-27] MEDS: SODIUM CHLORIDE 0.9% 1,000 ML IV SCH (03:58)
[2020-03-27] MEDS ORDERED: FUROSEMIDE 10 MG/ML 10 ML VIAL IV ONE (04:00)
[2020-03-27 04:24] LABS: Calcium 6.9 mg/dL (8.4-10.2); Potassium 4.5 mmol/L (3.5-5.1)
[2020-03-27 04:41] LABS: Anisocytosis Slight; HCT 32.1 % (34.0-46.0); HGB 10.3 gm/dL (11.4-16.0); Hypochromasia Moderate; MCH 30.2 pg (25.0-35.0); MCHC 32.2 g/dL (31.0-37.0); Macrocytosis Slight; Mean Platelet Volume 8.6; RBC 3.42 m/uL (3.80-5.40); RDW 19.2 % (11.5-15.5); WBC 16.1 k/uL (3.8-10.6)
[2020-03-27 04:42] LABS: Platelet Count 135 k/uL (150-450)
[2020-03-27 06:52] LABS: Glucose,Whole Blood 104 mg/dL (75-99)
[2020-03-27] MEDS: IPRATROPIUM-ALBUTEROL 3 ML NEB INHALATION SCH ×4 (07:20→19:05)
--- NOTE | 2020-03-27 07:20 | XR ---
EXAMINATION TYPE: XR chest 1V portable DATE OF EXAM: 03/27/2020 COMPARISON: 03/26/2020 HISTORY: Shortness of breath TECHNIQUE: Single frontal view of the chest is obtained. FINDINGS: Chronic rib deformities are seen is hyperinflation suggestive of COPD with tiny bilateral effusions or pleural thickening. Diffuse interstitial pattern with basilar infiltrates and right uppe r lobe area of consolidation. Underlying neoplastic process not excluded. Findings are stable. IMPRESSION: 1. COPD with bilateral infiltrates most marked in the right upper lobe stable. Underlying neoplasm in the differential diagnosis.
[2020-03-27 09:21] LABS: Magnesium 1.8 mg/dL (1.6-2.3)
[2020-03-27] MEDS: INSULIN ASPART (NovoLOG) 100 UNIT/ML VIAL SQ SCH ×4 (09:41→21:13)
[2020-03-27 09:42] LABS: Glucose,Whole Blood 95 mg/dL (75-99)
[2020-03-27] MEDS: FUROSEMIDE 10 MG/ML 4 ML VIAL IV SCH ×2 (09:48→20:39)
[2020-03-27] MEDS: PANTOPRAZOLE 40 MG/10 ML VIAL IVP SCH (09:52)
[2020-03-27] MEDS: ANIDULAFUNGIN 100 MG in SODIUM CHLORIDE 0.9% 100 ML IVPB SCH (09:53)
[2020-03-27] MEDS: VANCOMYCIN 750 MG in SODIUM CHLORIDE 0.9% 250 ML IVPB SCH (11:56)
[2020-03-27] MEDS: SODIUM BICARBONATE TAB 650 MG TAB PO SCH ×2 (11:57→20:38)
[2020-03-27] MEDS: METOPROLOL TARTRATE 25 MG TAB PO SCH ×2 (11:57→20:39)
[2020-03-27] MEDS: CALCIUM CARB-VIT D 500 MG-5 MCG TAB PO SCH (11:58)
[2020-03-27] MEDS: APIXABAN 5 MG TAB PO SCH (11:58)
[2020-03-27] MEDS: valACYclovir 500 MG TAB PO SCH ×2 (12:04→20:38)
[2020-03-27 12:06] LABS: Glucose,Whole Blood 102 mg/dL (75-99)
[2020-03-27] MEDS: SERTRALINE 100 MG TAB PO SCH (12:33)
--- NOTE | 2020-03-27 13:48 | P.PN ---
Subjective Progress Note Date: 03/27/20 This is a very pleasant 69-year-old female admitted on March 08, 2020. She has a history of atrial fibrillation/flutter, congestive heart failure, chronic obstructive pulmonary disease with chronic hypoxic respiratory failure, CVA/TIA, hypertension, hyperlipidemia, rheumatoid arthritis, COPD with previous chronic tobacco dependence. She also has a history of multiple myeloma and is currently on Revlimid. Her initial diagnosis this admission was atrial fibrillation with RVR, black stools, and pneumonia. She was initially admitted to the stepdown unit, and came to the intensive care unit on March 11. She did require 3 units of packed red blood cells for her anemia. Because of worsening respiratory status and hypoxemia, she was intubated on 03/14/2020 and successfully extubated on 03/19/2020. She had undergone bronchoscopy with BAL of the right upper lobe. Cultures positive for Nicolle only. The patient this morning the chest into the intensive care unit. Apparently overnight the patient was getting progressively more short of breath. He got transferred to the intensive. Earlier this morning and the patient was intubated and placed on a mechanical ventilator. Note that the patient currently is sedated with propofol it is running at 50 g per KG per minute. The patient is on assist control mode of ventilation at the rate of 20 with a tidal volume of 350 and FiO2 of 50% with a PEEP of 5. Current pulse ox is 98%. Peak airway pressures 38. Chest x-ray shows multiple bila teral rib fractures in addition to extensive consolidation of the right is essentially worse compared to her previous chest x-rays. Her white cell count is up to 32. She is currently on IV Merrem. The patient is also chronically on prednisone maintained at a dose of 20 mg by mouth daily. Cardiac rhythm is sinus. She is very much thin and frail and cachectic looking. She has cold sores on her lips and she is currently on Valtrex. On today's evaluation of 03/24/2020, seeing the patient for a follow-up. As mentioned earlier, the patient was intubated and placed on a mechanical ventilator for an acute and recurrent respiratory failure. The chest x-ray showed extensive consolidation of the right upper lobe along with a cavitating right upper lobe pulmonary infiltrates/pneumonia. The patient was already taking melatonin. Vancomycin and atelectasis was also added to her regimen. Th is morning, the patient remains on a mechanical ventilator. She is an assist- control mode at the rate of 20 with a tidal volume of 350 and FiO2 of 40% with a PEEP of 5. Chest x-ray from today adequate positioning of the orotracheal tube. There is still consolidation of the right upper lobe and this has improved considerably compared to yesterday. The patient has multiple areas of rib fractures bilaterally. Orogastric tube is in place. Comparing the x-ray from yesterday, there is improvement in the right upper lobe consolidation and elevation. Noted the patient is also post bronchoscopy that was done yesterday and we collected a lavage of the right upper lobe. cultures are still pending for now. the patient is still on broad-spectrum antibiotics and the patient is currently receiving a combination of meropenem, atelectasis and vancomycin. she is afebrile for now. her white cell count is at 4.7 with a hemoglobin of 8.6. blood gases from today showed a ph of 7.43 with a pco2 of 34 and po2 of 106 and this was done above-mentioned ventilator setting. he had a 45 with a creatinine of 1.25. she is improved compared to yesterday. the patient is receiving enteral feeding for nutritional support and currently she is on vital high protein at the rate of 34 ml an hour. she has no abdominal distention. there is 1 bowel movement activity yet. she is on no pressors. He still having some loose bloody respiratory secretions. Bronchoscopy that was done yesterday showed no evidence of any endobronchial tumors or lesions or foreign bodies. As mentioned, culture are still pending. The patient is known to have COPD and previous history of multiple myeloma. Her cardiac rhythm is sinus and she is known to have previous history of atrial fibrillation. She is on no antico agulants for now. On Lovenox for DVT prophylaxis dose of 30 mg subcu every 24 hours. On 03/25/2020, I'm seeing the patient on a follow-up. the patient and Mrs sedated with propofol and this is running at 60 mcg/kg per minute. She is hemodynamically stable. The propofol be gradually weaned off. We attempted to wean her to yesterday, however the patient seemed to have a high rapid shallow breathing index and she was a bit uncomfortable. Based on that, we avoided the extubation process. She was placed back on sedation and she's been off sedation since. She is calm and comfortable that she is easily arousable. She is on a mechanical ventilator on assist control mode at a rate of 20 with tidal volume of 50 and FiO2 of 40% with a PEEP of 5. Her blood gases from today shows a pH of 7.42 with a pCO2 of 33 and pO2 of 131. Chest x-ray shows right upper lobe consolidation with seems to be improving. Bronchoscopy and the right upper lobe bronchioloalveolar lavage was done and the cultures are still negative and the patient continues to be on a combination of meropenem, vancomycin and Eraxis. She has been afebrile for now. No significant orotracheal secretions. There is some loose bloody secretions in her orotracheal tube is being suctioned out. She is having an adequate urine output. She is on Lovenox for DVT prophylaxis. This was held yesterday because of some drop in the platelet count. The white cell count today is at 4.3 with a platelet count of 61 and I think the Lovenox can be restarted. BUN is at 49 with a creatinine of 1.2 On 03/26/2020, the patient is being seen for a follow-up. The patient was weaned off the mechanical ventilator and the patient was extubated to 2 L of oxygen by nasal cannula. This morning she is awake and alert she is following commands and answering questions appropriately. A follow-up chest x-ray was done this morning and is still showing some chronic consolidation of the right upper lobe. Multiple rib fractures bilaterally. No interval worsening. As for the bronchioloalveolar lavage from the previous bronchoscopy, it showed presumed staph species and the final cultures and sensitivities is pending.. There was a viral growth with HSV. The patient is receiving a combination of meropenem, vancomycin and Eraxis. He is doing well. Her white cell count today is at 5.3 with hemoglobin of 9.2. Blood work shows a stable renal function. She remains on IV fluids at 40 mL an hour of normal saline. She is awake and alert and communicating. No other significant events overnight. She was extubated successfully. Her platelet count from today is 63 which is stable compared to yesterday. 03/27/2020, the patient is back on BiPAP. After extubated in the patient, she was able to go down to 2 L about 2 by nasal cannula. Overnight, was informed that the patient was getting short of breath and she was having increased chest congestion and worsening shortness of breath and increased work of breathing. She was placed on BiPAP at a pressure of 10/5 cm of water and FiO2 40%. She was started on diuretics. She was given IV Lasix. Since then, she is producing adequate amount of urine output and she is less short of breath. She is able to tolerate the BiPAP without any major difficulties. She is a very thin frail elderly female patient who carries a BMI of 18.9. She is currently on Lasix 40 mg IV push every 12 hours. The patient is not fluid balance has been negative since she was started on diuretics. Note that the bronchioloalveolar lavage from the right upper lobe showed MRSA. The patient also had positive HSV. The patient is currently on a combination of meropenem, vancomycin and Eraxis. As mentioned earlier, she is afebrile. The patient's white cell count has not been repeated today and this is pending. Her sodium level is at 148 with a chloride of 120. BUN is 44 with a creatinine of 1.1. Magnesium is at 1.8. The chest x- ray from today shows COPD and bilateral pulmonary infiltrates most marked in the right upper lobe area. Objective - Vital Signs Vital signs: Vital Signs Temp 97.7 F 03/27/20 12:00 Pulse 84 03/27/20 12:00 Resp 19 03/27/20 12:00 BP 161/86 03/27/20 12:00 Pulse Ox 96 03/27/20 12:00 Intake & Output 03/26/20 03/27/20 03/27/20 18:59 06:59 18:59 Intake Total 720 530 500 Output Total 535 655 1296 Balance 215 270 -2225 Weight 50.4 kg 49.9 kg Intake: IV 360 280 150 Anidulafungin 100 mg In 100 Sodium Chloride 0.9% 100 ml @ 84 mls/hr IVPB DAILY [facility] Rx#:[id number] Meropenem 1 gm In Sodium 100 Chloride 0.9% 100 ml @ 33 .3 mls/hr IVPB Q12HR [facility] Rx#:[id number] Sodium Chloride 0.9% 1, 160 280 150 000 ml @ 40 mls/hr IV . Q24H [facility] Rx#:[id number] Intake, IV Titration 350 Amount Anidulafungin 100 mg In 100 Sodium Chloride 0.9% 100 ml @ 84 mls/hr IVPB DAILY [facility] Rx#:[id number] Vancomycin 750 mg In 250 Sodium Chloride 0.9% 250 ml @ 125 mls/hr IVPB Q24H [facility] Rx#:[id number] Oral 360 250 Output: Urine 919 612 2333 Stool 200 Other: Voiding Method Indwelling Catheter Indwelling Catheter Indwelling Catheter ABP, PAP, CO, CI - Last Documented Arterial Blood Pressure 146/53 - Exam GENERAL EXAM: Alert, very pleasant, 61-year-old frail looking female patient who is currently utilizing BiPAP at a pressure of 10/5 cm of water with an FiO2 of 40%. She seems to be a much more rested compared to earlier as the patient is also being diuresis with IV Lasix. She is a thin elderly female patient with has a body mass index of 18.9. EYES: Normal reaction of pupils, equal size. Conjunctiva pink, sclera white. NOSE: Clear with pink turbinates. THROAT: No erythema or exudates. NECK: No masses, no JVD, no thyroid enlargement, no adenopathy. CHEST: No chest wall deformity. Symmetrical expansion. LUNGS: Equal air entry with diminished breath over right upper lobe, no wheeze, rhonchi or dullness. CVS: Regular rate and rhythm, normal S1 and S2, no gallops, no murmurs, no rubs ABDOMEN: Soft, nontender. No hepatosplenomegaly, normal bowel sounds, no guarding or rigidity. EXTREMITIES: No clubbing, no edema, no cyanosis, 2+ pulses and upper and lower extremities. MUSCULOSKELETAL: Muscle strength and tone normal. SPINE: No scoliosis or deformity SKIN: No rashes CENTRAL NERVOUS SYSTEM: Alert and oriented 3, there is global generalized muscle weakness. PSYCHIATRIC: Unable to obtain - Labs CBC & Chem 7: 03/27/20 03:57 03/27/20 08:56 Labs: Abnormal Lab Results - Last 24 Hours (Table) 03/26/20 03/26/20 03/27/20 Range/Units 16:50 20:57 03:57 WBC (3.8-10.6) k/uL RBC (3.80-5.40) m/uL Hgb (11.4-16.0) gm/dL Hct (34.0-46.0) % RDW (11.5-15.5) % Plt Count (150-450) k/uL Sodium 147 H (137-145) mmol/L Chloride 123 H (98-107) mmol/L Carbon Dioxide 17 L (22-30) mmol/L BUN 42 H (7-17) mg/dL Creatinine 1.07 H (0.52-1.04) mg/dL Glucose 152 H (74-99) mg/dL POC Glucose (mg/dL) 163 H 158 H (75-99) mg/dL Calcium 6.9 L (8.4-10.2) mg/dL 03/27/20 03/27/20 03/27/20 Range/Units 03:57 06:50 08:56 WBC 16.1 H (3.8-10.6) k/uL RBC 3.42 L (3.80-5.40) m/uL Hgb 10.3 L (11.4-16.0) gm/dL Hct 32.1 L (34.0-46.0) % RDW 19.2 H (11.5-15.5) % Plt Count 135 L D (150-450) k/uL Sodium 148 H (137-145) mmol/L Chloride 120 H (98-107) mmol/L Carbon Dioxide (22-30) mmol/L BUN 44 H (7-17) mg/dL Creatinine 1.16 H (0.52-1.04) mg/dL Glucose 101 H (74-99) mg/dL POC Glucose (mg/dL) 104 H (75-99) mg/dL Calcium 7.0 L (8.4-10.2) mg/dL 03/27/20 Range/Units 12:05 WBC (3.8-10.6) k/uL RBC (3.80-5.40) m/uL Hgb (11.4-16.0) gm/dL Hct (34.0-46.0) % RDW (11.5-15.5) % Plt Count (150-450) k/uL Sodium (137-145) mmol/L Chloride (98-107) mmol/L Carbon Dioxide (22-30) mmol/L BUN (7-17) mg/dL Creatinine (0.52-1.04) mg/dL Glucose (74-99) mg/dL POC Glucose (mg/dL) 102 H (75-99) mg/dL Calcium (8.4-10.2) mg/dL Microbiology - Last 24 Hours (Table) 03/23/20 09:15 Fungal Culture - Preliminary Bronchoalviolar Lavage - Right Nicolle albicans 03/23/20 09:22 Blood Culture - Preliminary Blood No Growth after 96 hours 03/23/20 09:15 Gram Stain - Final Bronchoalviolar Lavage - Right Bronchial Washings Culture - Final Methicillin resist S. aureus Assessment and Plan Plan: 1 Acute hypoxic respiratory failure requiring intubation and mechanical ventilation from 03/14 - 03/19/2020 secondary to an acute right upper lung the pneumonia, status post bronchoscopy with BAL. After being extubated, the patient will be admitted to the intensive care unit with worsening hypoxemia respiratory failure. The patient is currently intubated on a mechanical ventilator. Chest x-ray shows extensive consolidation of the right upper lobe. Her previous CAT scan of the chest from 01/10/2020 showed emphysema with upper lobe predominance. There was however some creatinine but opacity in the lung bases bilaterally. Nevertheless, the current findings are quite extensive and the patient developed worsening in the right upper lobe pulmonary cavitary consolidation. She was intubated on 03/23/2020 and the chest x-ray showed extensive consolidation of the right upper lobe. She was extubated on 03/25/2020. After being extubated, the patient did well for around 24-48 hours on 2 L about 2 by nasal cannula. Yesterday evening, the patient became progressively more short of breath. I think she may have gone into pulmonary edema or she may have had aspiration. I'm not exactly sure. I have the patient on him BiPAP at a pressure of 10/5 cm of water. I restarted diuretics and she is currently on Lasix 40 mg every 12 hours IV push. She is receiving Lasix. She is feeling better. She is still on BiPAP. Meanwhile, the bronchioloalveolar lavage from the right upper lobe showed a combination of Nicolle albicans and MRSA and the patient is currently on appropriate antibiotic coverage. Chest x-ray showed increased bilateral pulmonary infiltrates more so on the right and more prominent on the right. 2 Right-sided atypical chest pain secondary to above , inactive stable 3 Leukocytosis secondary to above, was improving and the white cell count came back at 16.1 4 Anemia, current hemoglobin 10.3 5 Acute renal failure, covered, current creatinine 1.1, stable 6 Lactic acidosis secondary to above, recovered 7 Multiple myeloma with abnormal uptake associated sedated with the patient's right lower lobe lung mass, currently on Revlimid 8 Chronic obstructive pulmonary disease with previous chronic tobacco dependence 9 Acute on chronic kidney disease, stage IIIIV, and the patient stable creatinine is at 1.1. 10 History of diastolic congestive heart failure 11 Paroxysmal atrial fibrillation/flutter with RVR, currently in sinus rhythm and maintained on Eliquis, currently off anticoagulation because of history of bleeding. Her current rhythm is sinus. 12 Previous history of CVA 13 Hypertension 14 Hyperlipidemia 15 Chronic anxiety 16 thrombocytopenia, platelet counts are improving for now and the level is up to 135 Plan The patient most likely has a recurrent pneumonia severity hospital-acquired pneumonia with staph/MRSA and the patient also showed Nicolle albicans. The patient is currently on a combination of antibiotics. Continue the combination meropenem, vancomycin and Eraxis he had the chest x-ray shows increased infiltration of the right upper lobe area. There is decreased by the pulmonary infiltration. White cell count is up to 16.1. Consider superimposed pulmonary edema decompensating the patient's overall respiratory status. Based on this, the patient is currently on a BiPAP at a pressure of 10/5 with an FiO2 of 40%. She is also being subjected to diuretics in combination with broad-spectrum antibiotics. Waiting the final results from the bronchoscopy and lavage Down the IV fluids to 40 mL an hour Monitor white count Monitor hemoglobin Continue the rest of the supportive care. Hematologic profile is stable. Platelet counts are stable and improving The patient passed a swallow evaluation. We will keep her nothing by mouth for now as the patient is currently BiPAP dependent. He is same antibiotic coverage Monitor electrolytes Condition is critical and she has a high risk of going into further respiratory insufficiency requiring intubation mechanical ventilation. Continue IV Solu- Medrol. We'll continue to follow. Keep the patient ICU. Evaluation was done and more than 30 minutes. Time with Patient: Greater than 30
[2020-03-27 16:07] LABS: Glucose,Whole Blood 79 mg/dL (75-99)
--- NOTE | 2020-03-27 16:12 | PN ---
PROGRESS NOTE DATE OF SERVICE: 03/27/2020 REASON FOR FOLLOWUP: MRSA pneumonia. INTERVAL HISTORY: The patient is currently afebrile. The patient is hemodynamically stable. She is currently on 2 L nasal cannula. Denies having any chest pain. Occasional cough. No abdominal pain. No diarrhea has been reported. PHYSICAL EXAMINATION: Blood pressure 161/86, pulse 84, temperature 97.7. She is 96% on 2 L nasal cannula. General description is an elderly female lying in bed in no distress. RESPIRATORY SYSTEM: Unlabored breathing, coarse breath sounds bilaterally. No wheeze. HEART: S1, S2. Regular rate and rhythm. ABDOMEN: Soft, no tenderness. LABS: Hemoglobin is 10.3, white count 16.1, BUN of 44, creatinine 1.16. DIAGNOSTIC IMPRESSION AND PLAN: Patient with MRSA pneumonia plus minus component of oropharyngeal candidiasis. Patient is covered with vancomycin and Eraxis. White count slightly up that will be monitor closely. Continue supportive care. MMODL / IJN: [id number] /
--- NOTE | 2020-03-27 17:35 | P.PN ---
Progress Note - Text Progress Note Date: 03/27/20 Presenting complaint: Intubated Interval history: This is a very pleasant 69-year-old patient of Dr. Villalobos. Chronic stable medical conditions include paroxysmal atrial flutter fibrillation, , CHF with an EF of 50-55%, tricuspid and mitral regurgitation, secondary pulmonary hypertension, chronic kidney disease stage IV, hypertension, hyperlipidemia,. Patient also being treated for multiple myeloma. on REVLIMID Patient presented with shortness of breath confusion cough congestion. Admitted with right upper lobe pneumonia, acute delirium. Started on IV aztreonam and azithromycin. Developed black tarry stools. Dropped hemoglobin. 1 unit of blood given. Patient desaturated. Moved to the ICU on March 11. Intubated March 14-placed on IV levo fed propofol antibiotics changed to IV meropenem. bronchoscopy done by Dr. Hart[March 16]-thick philomena, secretions obtained. Extubated March 19. Patient had to be reintubated. Patient underwent repeat bronchoscopy on March 23. Extubated March 25. [id number]-[id number] a bit better today. For short of breath early hours of today. Does receive BiPAP and some IV Lasix. Didn't tolerate some diet. Review of systems: Attempted for constitutional, cardiovascular, GI, pulmonary. relevant finding as above Active Medications Acetaminophen (Acetaminophen Tab 325 Mg Tab) 650 mg PO Q4HR PRN PRN Reason: Fever and/ or Pain Last Admin: 03/11/20 22:00 Dose: 650 mg Documented by: Albuterol/Ipratropium (Ipratropium-Albuterol 3 Ml Neb) 3 ml INHALATION RT-QID [facility] Last Admin: 03/27/20 15:27 Dose: 3 ml Documented by: Apixaban (Apixaban 2.5 Mg Tablet) 2.5 mg PO BID [facility] Calcitriol (Calcitriol 0.25 Mcg Cap) 0.25 mcg PO PC-LUNCH [facility] Last Admin: 03/27/20 12:33 Dose: 0.25 mcg Documented by: Calcium Carbonate (Calcium Carb-Vit D 500mg-200un 1 Each Tab) 2 each PO DAILY@1200 [facility] Last Admin: 03/27/20 11:58 Dose: 2 each Documented by: Furosemide (Furosemide 10 Mg/Ml 4 Ml Vial) 40 mg IV Q12HR [facility] Last Admin: 03/27/20 09:48 Dose: 40 mg Documented by: Hydralazine HCl (Hydralazine Hcl 20 Mg/Ml 1 Ml Vial) 10 mg IVP Q6HR PRN PRN Reason: Blood Pressure - High Last Admin: 03/27/20 03:26 Dose: 10 mg Documented by: Sodium Chloride (Saline 0.9%) 1,000 mls @ 40 mls/hr IV .Q24H [facility] Last Admin: 03/27/20 03:58 Dose: 40 mls/hr Documented by: Vancomycin HCl 750 mg/ Sodium (Chloride) 250 mls @ 125 mls/hr IVPB Q24H [facility] Last Admin: 03/27/20 11:56 Dose: 125 mls/hr Documented by: Anidulafungin 100 mg/ Sodium (Chloride) 130 mls @ 84 mls/hr IVPB DAILY [facility] Last Admin: 03/27/20 09:53 Dose: 84 mls/hr Documented by: Insulin Aspart (Insulin Aspart (Novolog) 100 Unit/Ml Vial) 0 unit SQ ACHS [facility]; Protocol Last Admin: 03/27/20 12:10 Dose: Not Given Documented by: Latanoprost (Latanoprost 0.005% Ophth Drops 2.5 Ml Btl) 1 drops BOTH EYES HS [facility] Last Admin: 03/26/20 20:46 Dose: 1 drops Documented by: Methylprednisolone Sodium Succinate (Methylprednisolone Sod Succi 40 Mg/Ml 1 Ml Vial) 40 mg IV Q8HR [facility] Last Admin: 03/27/20 15:44 Dose: 40 mg Documented by: Metoprolol Tartrate (Metoprolol Tartrate 25 Mg Tab) 25 mg PO BID@1200,2100 [facility] Last Admin: 03/27/20 11:57 Dose: 25 mg Documented by: Miscellaneous Information (Pneumonia Protocol Utilized 1 Each Misc) 1 each PO ONCE PRN PRN Reason: Per Protocol Miscellaneous Information (Potassium Replacement Protocol 1 Each Misc) 1 each MISCELLANE DAILY PRN; Protocol PRN Reason: Per Protocol Miscellaneous Information (Vancomycin Trough Due 1 Each Misc) 0 each MISCELLANE DIRECTED ONE Stop: 03/28/20 11:01 Pantoprazole Sodium (Pantoprazole 40 Mg Tablet) 40 mg PO BID [facility] Sertraline HCl (Sertraline 100 Mg Tab) 200 mg PO PC-LUNCH [facility] Last Admin: 03/27/20 12:33 Dose: 200 mg Documented by: Sodium Bicarbonate (Sodium Bicarbonate Tab 650 Mg Tab) 1,300 mg PO DAILY@1200 [facility] Last Admin: 03/27/20 11:57 Dose: 1,300 mg Documented by: Sodium Bicarbonate (Sodium Bicarbonate Tab 650 Mg Tab) 650 mg PO HS [facility] Last Admin: 03/26/20 20:56 Dose: 650 mg Documented by: Valacyclovir HCl (Valacyclovir 500 Mg Tab) 500 mg PO BID [facility] Last Admin: 03/27/20 12:04 Dose: 500 mg Documented by: Physical examination: VITAL SIGNS: 97.7, 84, 82, 1 6186, 96% on 4 L GENERAL: Reclining in bed,, awake. EYES: Pupils equal. Conjunctiva pale HEENT: Dry lips. NECK: JVD not raised; masses not palpable. HEART: First and second heart sounds are normal; no edema. LUNGS: Respiratory rate increased, decreased breath sounds ABDOMEN: Soft, nontender, liver spleen not palpable, no masses palpable. PSYCH: AO - times three. Mood and affect tired MUSCULOSKELETAL: Diffuse wasting of muscles Investigations, reviewed in the clinical context: March 25: Sodium 148 potassium 4 creatinine 1.16 March 26: White count 5.3 hemoglobin 9.2 platelets 63 potassium 4.3 creatinine 1.11 March 25: White count 4.3 hemoglobin 8.1 platelet 61 potassium 3.5 bun 49 creatinine 1.21 March 19: White count 9.5 hemoglobin 10.8 platelets 40 potassium 3.9 bun 66 creatinine 1.7 to March 18: White count 9.1 hemoglobin 10.2 potassium 3.7 bun 62 creatinine 1.83 Chest x-ray film personally reviewed by me-infiltrate clearing March 16: White count 9.3 hemoglobin 10 platelets 46 potassium 4.2 BUN 50 creatinine 1.88 March 15: White count 7.4 hemoglobin 5.9 platelets 50 BUN 38 creatinine 1.5 for March 14: White count 12.3 hemoglobin 7.4 potassium 4.8 bun 39 creatinine 1.43. ABG show pH of 7.15 March 13: White count 15.4 hemoglobin 8.7 platelets 91 bun 36 creatinine 1.48 March 12: White count 23.4 hemoglobin 9.2 platelets 113. Check stat x-ray film-right upper lobe dense infiltrate March 11: White count 9.2 hemoglobin 6 platelets 86potassium 5 creatinine 1.56 pro-calcitonin 1.34 Pro-calcitonin 1.84 White count 14 hemoglobin 8.1 platelets 134 potassium 4.2 BUN 47 creatinine 2.64 Lactic acid 4.9 Coronavirus P/Cr-not detected VQ scan-low probability for PE EKG tracing personally reviewed by me-normal sinus rhythm some ST segment changes Chest h-vir-vffjqf infiltrate throughout the right upper lobe and the superior segment of the right lower lobe Ofjvzfufyhtu-rjsbhttu-Zxjqnur albicans Sputum-Nicolle albicans Bronchial washing culture from March 23-MRSA Assessment: -Right upper lobe pneumonia, MRSA in an immunosuppressed patient, , POA,- -Paroxysmal atrial flutter and fibrillation-with rapid ventricular rate then went back into sinus rhythm -Anemia multifactorial including that of chronic disease including multiple myeloma -Acute COPD exacerbation in a ex-smoker, improving slowly -Chronic congestive heart failure from systolic and diastolic dysfunction EF 50- 55% -Moderate tricuspid and severe mitral regurgitation, nontraumatic -Severe secondary pulmonary hypertension secondary to CHF and COPD -Multiple myeloma on chemotherapy -Chronic kidney disease secondary to multiple myeloma stage IV and chronic interstitial nephropathy -Essential hypertension -Hyperlipidemia -Severe protein calorie malnutrition due to poor oral intake. BMI 14.4 -Chronic medical debility -Multiple old rib fractures due to multiple myeloma -Acute GI bleed dropping hemoglobin down to 6.-Received total of 3 units of blood, AGG [place] for now. -Acute hypoxic respiratory failure-worsening overnight-intubated on the ventilator March 14-extubated March 19. Currently on 4 L nasal cannula -Hypotensive status post levo fed -Acute kidney injury possibly combination of ATN and prerenal-improved Plan: Patient on IV Anidulafungin, eliquis, , IV Solu-Medrol, IV vancomycin, valacyclovir. Discussed with the patient. Advanced care planning: Had a lengthy talk with the patient. Patient's currently full code. Patient takes her own decisions. Did explain to patient had cardiac prognosis given multiple medical issues. Patient does understand her condition. Did talk to her about her DO NOT RESUSCITATE CODE STATUS. Patient would like to think more about it. Patient therefore remains full code for now. She will get back to me. Questions were answered. About 20-25 minutes was spent on this.
--- NOTE | 2020-03-27 19:41 | P.PN ---
Subjective Progress Note Date: 03/27/20 Principal diagnosis: Multiple Myeloma and Respiratory Failure Continue to slowly improve daily Objective - Vital Signs Vital signs: Vital Signs Temp 97.7 F 03/27/20 16:00 Pulse 80 03/27/20 19:06 Resp 25 H 03/27/20 16:00 BP 161/73 03/27/20 16:00 Pulse Ox 99 03/27/20 16:00 Intake & Output 03/27/20 03/27/20 03/28/20 06:59 18:59 06:59 Intake Total 530 1066 60 Output Total 260 3225 250 Balance 270 -2159 -190 Weight 49.9 kg Intake: IV 280 230 60 Sodium Chloride 0.9% 1, 280 230 60 000 ml @ 40 mls/hr IV . Q24H [facility] Rx#:[id number] Intake, IV Titration 600 Amount Anidulafungin 100 mg In 100 Sodium Chloride 0.9% 100 ml @ 84 mls/hr IVPB DAILY [facility] Rx#:[id number] Vancomycin 750 mg In 500 Sodium Chloride 0.9% 250 ml @ 125 mls/hr IVPB Q24H [facility] Rx#:[id number] Oral 250 236 Output: Urine 260 3225 250 Other: Voiding Method Indwelling Catheter Indwelling Catheter ABP, PAP, CO, CI - Last Documented Arterial Blood Pressure 146/53 - Exam - Constitutional General appearance: Present: cooperative, no acute distress, thin - EENT EENT Comment(s): dry mucus membranes, dry cracked, chapped lips Eyes: Present: anicteric sclerae, EOMI ENT: Present: hearing grossly normal - Respiratory Respiratory: left: rales (anterior, expiratory), bilateral: diminished - Cardiovascular Rhythm: regular Heart sounds: normal: S1, S2 Abnormal Heart Sounds: Absent: systolic murmur, diastolic murmur, rub, S3 Gallop, S4 Gallop, click, other - Peripheral edema foot Peripheral Edema: bilateral: Trace - Gastrointestinal General gastrointestinal: Present: normal bowel sounds, soft. Absent: absent bowel sounds, decreased bowel sounds, distended, hepatomegaly, hyperactive bowel sounds, organomegaly, rigid, scaphoid, splenomegaly, tenderness, umbilical hernia, ventral hernia - Neurologic Neurologic: Present: CNII-XII intact - Musculoskeletal Musculoskeletal: Present: generalized weakness - Psychiatric Psychiatric: Present: A&O x's 3, appropriate affect, intact judgment & insight - Labs CBC & Chem 7: 03/27/20 03:57 03/27/20 08:56 Labs: Abnormal Lab Results - Last 24 Hours (Table) 03/26/20 03/27/20 03/27/20 Range/Units 20:57 03:57 03:57 WBC 16.1 H (3.8-10.6) k/uL RBC 3.42 L (3.80-5.40) m/uL Hgb 10.3 L (11.4-16.0) gm/dL Hct 32.1 L (34.0-46.0) % RDW 19.2 H (11.5-15.5) % Plt Count 135 L D (150-450) k/uL Sodium 147 H (137-145) mmol/L Chloride 123 H (98-107) mmol/L Carbon Dioxide 17 L (22-30) mmol/L BUN 42 H (7-17) mg/dL Creatinine 1.07 H (0.52-1.04) mg/dL Glucose 152 H (74-99) mg/dL POC Glucose (mg/dL) 158 H (75-99) mg/dL Calcium 6.9 L (8.4-10.2) mg/dL 03/27/20 03/27/20 03/27/20 Range/Units 06:50 08:56 12:05 WBC (3.8-10.6) k/uL RBC (3.80-5.40) m/uL Hgb (11.4-16.0) gm/dL Hct (34.0-46.0) % RDW (11.5-15.5) % Plt Count (150-450) k/uL Sodium 148 H (137-145) mmol/L Chloride 120 H (98-107) mmol/L Carbon Dioxide (22-30) mmol/L BUN 44 H (7-17) mg/dL Creatinine 1.16 H (0.52-1.04) mg/dL Glucose 101 H (74-99) mg/dL POC Glucose (mg/dL) 104 H 102 H (75-99) mg/dL Calcium 7.0 L (8.4-10.2) mg/dL Microbiology - Last 24 Hours (Table) 03/23/20 09:15 Fungal Culture - Preliminary Bronchoalviolar Lavage - Right Nicolle albicans 01/18/21 09:22 Blood Culture - Preliminary Blood No Growth after 96 hours Assessment and Plan (1) Atrial flutter with rapid ventricular response Current Visit: Yes Status: Acute Code(s): I48.92 - UNSPECIFIED ATRIAL FLU TTER SNOMED Code(s): 3063692 (2) Chronic kidney disease Current Visit: Yes Status: Chronic Code(s): N18.9 - CHRONIC KIDNEY DISEASE, UNSPECIFIED SNOMED Code(s): 060346160 (3) Acute exacerbation of chronic obstructive airways disease Current Visit: No Status: Acute Code(s): J44.1 - CHRONIC OBSTRUCTIVE PULMONARY DISEASE W (ACUTE) EXACERBATION SNOMED Code(s): 187140640 (4) Multiple myeloma not having achieved remission Current Visit: No Status: Chronic Priority: Medium Code(s): C90.00 - MULTIPLE MYELOMA NOT HAVING ACHIEVED REMISSION SNOMED Code(s): 473422004 (5) Pancytopenia Current Visit: No Status: Chronic Priority: Medium Code(s): D61.818 - OT HER PANCYTOPENIA SNOMED Code(s): 635568452 Plan: Assessment and Plan [place] Multiple myeloma not having achieved remission - Treatment continues to remain on hold (Revlimid) with Cytopenias and acute illness - Will anticipate another 2-3 week hold for recovery of this hospitalization and can follow-up with Dr. Larson as outpatient at that time. - She has been instructed to not resume until re-evaluation as outpatient - Her most recent M-spike was 0.19g/dl, stable. Pancytopenia - Secondary to Chronic disease, acute on chronic infectious/inflammatory response, Multiple myeloma, and chemotherapy - Continue to hold Revlamid for now - Transfuse hemoglobin less than 7, stable today, no transfusion required - Platelets recovering and anticoagulation has resumed Hypogammaglobulinemia due to multiple myeloma - Status Post IVIG on 03/20/2020 for IgG of 489 and severe acute illness Atrial flutter with rapid ventricular response - Cardiology Following - regular rate, improving - Eliquis continued Chronic kidney disease - Nephrology Following - Stable today Acute exacerbation of chronic obstructive airways disease - Resolved, Extubated - Continued slow improvement - S/P bronch with washings, neg for malignancy - S/P EGD with biopsy, negative path Our team has discussed CPR and intubation, as well as, code status. Overall prognosis is guarded and goals of care being of no extreme lifesaving intervention is reasonable. Physician Attest: I have completed the full history and physical and developed the above impression and plan, agree with above dictation by Radha Louis NP. Dictated as a scribe.
[2020-03-27] MEDS: APIXABAN 2.5 MG TABLET PO SCH (20:38)
[2020-03-27] MEDS: LATANOPROST 0.005% OPHTH DROPS 2.5 ML BTL BOTH EYES SCH (20:39)
[2020-03-27] MEDS: PANTOPRAZOLE 40 MG TABLET PO SCH (20:39)
[2020-03-27 21:04] LABS: Glucose,Whole Blood 146 mg/dL (75-99)
[2020-03-28] MEDS: methylPREDNISolone SOD SUCCI 40 MG/ML 1 ML VIAL IV SCH (00:26)
[2020-03-28 04:10] LABS: Anisocytosis Slight; Basophils % (A) 0 %; Eosinophils % (A) 0 %; Hypochromasia Slight; Lymphocytes # (A) 0.2 k/uL (1.0-4.8); Lymphocytes % (A) 3 %; MCH 30.4 pg (25.0-35.0); MCHC 32.7 g/dL (31.0-37.0); Macrocytosis Slight; Mean Platelet Volume 9.5; Monocytes # (A) 0.3 k/uL (0-1.0); Monocytes % (A) 4 %; Neutrophils # (A) 5.5 k/uL (1.3-7.7); Neutrophils % (A) 92 %; Platelet Count 53 k/uL (150-450); RBC 2.79 m/uL (3.80-5.40); RDW 19.1 % (11.5-15.5); WBC 5.9 k/uL (3.8-10.6)
[2020-03-28 04:17] LABS: HGB 8.5 gm/dL (11.4-16.0)
[2020-03-28 04:24] LABS: Calcium 7.1 mg/dL (8.4-10.2); Magnesium 1.8 mg/dL (1.6-2.3); Potassium 3.6 mmol/L (3.5-5.1)
[2020-03-28] MEDS ORDERED: POTASSIUM CHLORIDE ER 20 MEQ TAB.ER PO SCH (05:00)
[2020-03-28] MEDS: MAGNESIUM SULFATE-D5W PMX 1 GM in DEXTROSE/WATER 1 100ML.BAG IVPB SCH ×2 (06:41→08:34)
[2020-03-28] MEDS: SODIUM CHLORIDE 0.9% 1,000 ML IV SCH (06:41)
--- NOTE | 2020-03-28 07:30 | P.PN ---
Subjective Progress Note Date: 03/28/20 This is a very pleasant 69-year-old female admitted on March 08, 2020. She has a history of atrial fibrillation/flutter, congestive heart failure, chronic obstructive pulmonary disease with chronic hypoxic respiratory failure, CVA/TIA, hypertension, hyperlipidemia, rheumatoid arthritis, COPD with previous chronic tobacco dependence. She also has a history of multiple myeloma and is currently on Revlimid. Her initial diagnosis this admission was atrial fibrillation with RVR, black stools, and pneumonia. She was initially admitted to the stepdown unit, and came to the intensive care unit on March 11. She did require 3 units of packed red blood cells for her anemia. Because of worsening respiratory status and hypoxemia, she was intubated on 03/14/2020 and successfully extubated on 03/19/2020. She had undergone bronchoscopy with BAL of the right upper lobe. Cultures positive for Nicolle only. The patient this morning the chest into the intensive care unit. Apparently overnight the patient was getting progressively more short of breath. He got transferred to the intensive. Earlier this morning and the patient was intubated and placed on a mechanical ventilator. Note that the patient currently is sedated with propofol it is running at 50 g per KG per minute. The patient is on assist control mode of ventilation at the rate of 20 with a tidal volume of 350 and FiO2 of 50% with a PEEP of 5. Current pulse ox is 98%. Peak airway pressures 38. Chest x-ray shows multiple bila teral rib fractures in addition to extensive consolidation of the right is essentially worse compared to her previous chest x-rays. Her white cell count is up to 32. She is currently on IV Merrem. The patient is also chronically on prednisone maintained at a dose of 20 mg by mouth daily. Cardiac rhythm is sinus. She is very much thin and frail and cachectic looking. She has cold sores on her lips and she is currently on Valtrex. On today's evaluation of 03/24/2020, seeing the patient for a follow-up. As mentioned earlier, the patient was intubated and placed on a mechanical ventilator for an acute and recurrent respiratory failure. The chest x-ray showed extensive consolidation of the right upper lobe along with a cavitating right upper lobe pulmonary infiltrates/pneumonia. The patient was already taking melatonin. Vancomycin and atelectasis was also added to her regimen. Th is morning, the patient remains on a mechanical ventilator. She is an assist- control mode at the rate of 20 with a tidal volume of 350 and FiO2 of 40% with a PEEP of 5. Chest x-ray from today adequate positioning of the orotracheal tube. There is still consolidation of the right upper lobe and this has improved considerably compared to yesterday. The patient has multiple areas of rib fractures bilaterally. Orogastric tube is in place. Comparing the x-ray from yesterday, there is improvement in the right upper lobe consolidation and elevation. Noted the patient is also post bronchoscopy that was done yesterday and we collected a lavage of the right upper lobe. cultures are still pending for now. the patient is still on broad-spectrum antibiotics and the patient is currently receiving a combination of meropenem, atelectasis and vancomycin. she is afebrile for now. her white cell count is at 4.7 with a hemoglobin of 8.6. blood gases from today showed a ph of 7.43 with a pco2 of 34 and po2 of 106 and this was done above-mentioned ventilator setting. he had a 45 with a creatinine of 1.25. she is improved compared to yesterday. the patient is receiving enteral feeding for nutritional support and currently she is on vital high protein at the rate of 34 ml an hour. she has no abdominal distention. there is 1 bowel movement activity yet. she is on no pressors. He still having some loose bloody respiratory secretions. Bronchoscopy that was done yesterday showed no evidence of any endobronchial tumors or lesions or foreign bodies. As mentioned, culture are still pending. The patient is known to have COPD and previous history of multiple myeloma. Her cardiac rhythm is sinus and she is known to have previous history of atrial fibrillation. She is on no antico agulants for now. On Lovenox for DVT prophylaxis dose of 30 mg subcu every 24 hours. On 03/25/2020, I'm seeing the patient on a follow-up. the patient and Mrs sedated with propofol and this is running at 60 mcg/kg per minute. She is hemodynamically stable. The propofol be gradually weaned off. We attempted to wean her to yesterday, however the patient seemed to have a high rapid shallow breathing index and she was a bit uncomfortable. Based on that, we avoided the extubation process. She was placed back on sedation and she's been off sedation since. She is calm and comfortable that she is easily arousable. She is on a mechanical ventilator on assist control mode at a rate of 20 with tidal volume of 50 and FiO2 of 40% with a PEEP of 5. Her blood gases from today shows a pH of 7.42 with a pCO2 of 33 and pO2 of 131. Chest x-ray shows right upper lobe consolidation with seems to be improving. Bronchoscopy and the right upper lobe bronchioloalveolar lavage was done and the cultures are still negative and the patient continues to be on a combination of meropenem, vancomycin and Eraxis. She has been afebrile for now. No significant orotracheal secretions. There is some loose bloody secretions in her orotracheal tube is being suctioned out. She is having an adequate urine output. She is on Lovenox for DVT prophylaxis. This was held yesterday because of some drop in the platelet count. The white cell count today is at 4.3 with a platelet count of 61 and I think the Lovenox can be restarted. BUN is at 49 with a creatinine of 1.2 On 03/26/2020, the patient is being seen for a follow-up. The patient was weaned off the mechanical ventilator and the patient was extubated to 2 L of oxygen by nasal cannula. This morning she is awake and alert she is following commands and answering questions appropriately. A follow-up chest x-ray was done this morning and is still showing some chronic consolidation of the right upper lobe. Multiple rib fractures bilaterally. No interval worsening. As for the bronchioloalveolar lavage from the previous bronchoscopy, it showed presumed staph species and the final cultures and sensitivities is pending.. There was a viral growth with HSV. The patient is receiving a combination of meropenem, vancomycin and Eraxis. He is doing well. Her white cell count today is at 5.3 with hemoglobin of 9.2. Blood work shows a stable renal function. She remains on IV fluids at 40 mL an hour of normal saline. She is awake and alert and communicating. No other significant events overnight. She was extubated successfully. Her platelet count from today is 63 which is stable compared to yesterday. 03/27/2020, the patient is back on BiPAP. After extubated in the patient, she was able to go down to 2 L about 2 by nasal cannula. Overnight, was informed that the patient was getting short of breath and she was having increased chest congestion and worsening shortness of breath and increased work of breathing. She was placed on BiPAP at a pressure of 10/5 cm of water and FiO2 40%. She was started on diuretics. She was given IV Lasix. Since then, she is producing adequate amount of urine output and she is less short of breath. She is able to tolerate the BiPAP without any major difficulties. She is a very thin frail elderly female patient who carries a BMI of 18.9. She is currently on Lasix 40 mg IV push every 12 hours. The patient is not fluid balance has been negative since she was started on diuretics. Note that the bronchioloalveolar lavage from the right upper lobe showed MRSA. The patient also had positive HSV. The patient is currently on a combination of meropenem, vancomycin and Eraxis. As mentioned earlier, she is afebrile. The patient's white cell count has not been repeated today and this is pending. Her sodium level is at 148 with a chloride of 120. BUN is 44 with a creatinine of 1.1. Magnesium is at 1.8. The chest x- ray from today shows COPD and bilateral pulmonary infiltrates most marked in the right upper lobe area. 03/28/2020, the patient is doing well on 2 L of oxygen by nasal cannula and she is extubated. BiPAP was discontinued and the patient did not require BiPAP. The patient is doing well. A repeat chest x-ray was done today and the patient has still chronic infiltration of the right upper lobe consistent with some pneumonia/airspace disease. There is also bilateral interstitial infiltrates. The patient was diuresed with IV Lasix 40 mg every 12 hours and she is clean 0.6 negative fluid balance since yesterday. White cell count is at 5.0 which is lower compared to yesterday the hemoglobin stable at 8.5. She has chronic thrombocytopenia with a limited amount of 53. Creatinine is at 1.25 with a BUN of 40. Sodium was on the right is 146 and the patient was being diuresed. Nevertheless, sodium is improved compared to yesterday. The patient is awake. She passed a swallow evaluation. However, we still have to be very cautious with her swallowing process and the patient is able to swallow nectar thick material. She is also having her pills with an applesauce. Her antibiotic coverage includes a combination of vancomycin and Eraxis and the patient has MRSA and Nicolle in her bronchioloalveolar lavage. She is known to have COPD. She'll be provided incentive spirometer. She is afebrile. No issues with pain. No other issues for now. Objective - Vital Signs Vital signs: Vital Signs Temp 97.6 F 03/28/20 04:00 Pulse 67 03/28/20 06:00 Resp 20 03/28/20 06:00 BP 158/64 03/28/20 06:00 Pulse Ox 100 03/28/20 06:00 Intake & Output 03/27/20 03/28/20 03/28/20 18:59 06:59 18:59 Intake Total 1066 820 Output Total 3325 2185 Balance -2259 -4927 Weight 47.6 kg Intake: IV 230 280 Sodium Chloride 0.9% 1, 230 280 000 ml @ 40 mls/hr IV . Q24H [facility] Rx#:[id number] Intake, IV Titration 600 Amount Anidulafungin 100 mg In 100 Sodium Chloride 0.9% 100 ml @ 84 mls/hr IVPB DAILY [facility] Rx#:[id number] Vancomycin 750 mg In 500 Sodium Chloride 0.9% 250 ml @ 125 mls/hr IVPB Q24H [facility] Rx#:[id number] Oral 236 540 Output: Urine 3225 2185 Stool 100 Other: Voiding Method Indwelling Catheter Indwelling Catheter # Bowel Movements 1 ABP, PAP, CO, CI - Last Documented Arterial Blood Pressure 146/53 - Exam GENERAL EXAM: Alert, very pleasant, 61-year-old frail looking female patient currently on 2 L of oxygen by nasal cannula, she is quite frail and she has a body mass index of 18 EYES: Normal reaction of pupils, equal size. Conjunctiva pink, sclera white. NOSE: Clear with pink turbinates. THROAT: No erythema or exudates. NECK: No masses, no JVD, no thyroid enlargement, no adenopathy. CHEST: No chest wall deformity. Symmetrical expansion. LUNGS: Equal air entry with diminished breath over right upper lobe, no wheeze, rhonchi or dullness. CVS: Regular rate and rhythm, normal S1 and S2, no gallops, no murmurs, no rubs ABDOMEN: Soft, nontender. No hepatosplenomegaly, normal bowel sounds, no guarding or rigidity. EXTREMITIES: No clubbing, no edema, no cyanosis, 2+ pulses and upper and lower extremities. MUSCULOSKELETAL: Muscle strength and tone normal. SPINE: No scoliosis or deformity SKIN: No rashes CENTRAL NERVOUS SYSTEM: Alert and oriented 3, there is global generalized muscle weakness. PSYCHIATRIC: Awake and alert and there is no significant anxiety or depression - Labs CBC & Chem 7: 03/28/20 03:26 03/28/20 03:23 Labs: Abnormal Lab Results - Last 24 Hours (Table) 03/27/20 03/27/20 03/27/20 Range/Units 08:56 12:05 21:03 RBC (3.80-5.40) m/uL Hgb (11.4-16.0) gm/dL Hct (34.0-46.0) % RDW (11.5-15.5) % Plt Count (150-450) k/uL Lymphocytes # (1.0-4.8) k/uL Sodium 148 H (137-145) mmol/L Chloride 120 H (98-107) mmol/L BUN 44 H (7-17) mg/dL Creatinine 1.16 H (0.52-1.04) mg/dL Glucose 101 H (74-99) mg/dL POC Glucose (mg/dL) 102 H 146 H (75-99) mg/dL Calcium 7.0 L (8.4-10.2) mg/dL 03/28/20 03/28/20 Range/Units 03:23 03:26 RBC 2.79 L (3.80-5.40) m/uL Hgb 8.5 L D (11.4-16.0) gm/dL Hct 26.0 L (34.0-46.0) % RDW 19.1 H (11.5-15.5) % Plt Count 53 L D (150-450) k/uL Lymphocytes # 0.2 L (1.0-4.8) k/uL Sodium 146 H (137-145) mmol/L Chloride 117 H (98-107) mmol/L BUN 40 H (7-17) mg/dL Creatinine 1.25 H (0.52-1.04) mg/dL Glucose (74-99) mg/dL POC Glucose (mg/dL) (75-99) mg/dL Calcium 7.1 L (8.4-10.2) mg/dL Microbiology - Last 24 Hours (Table) 03/23/20 09:15 Fungal Culture - Preliminary Bronchoalviolar Lavage - Right Nicolle albicans 03/23/20 09:22 Blood Culture - Preliminary Blood No Growth after 96 hours Assessment and Plan Plan: 1 Acute hypoxic respiratory failure requiring intubation and mechanical ventilation from 03/14 - 03/19/2020 secondary to an acute right upper lung the pneumonia, status post bronchoscopy with BAL. After being extubated, the jen alanis will be admitted to the intensive care unit with worsening hypoxemia respiratory failure. The patient is currently intubated on a mechanical ventilator. Chest x-ray shows extensive consolidation of the right upper lobe. Her previous CAT scan of the chest from 01/10/2020 showed emphysema with upper lobe predominance. There was however some creatinine but opacity in the lung bases bilaterally. Nevertheless, the current findings are quite extensive and the patient developed worsening in the right upper lobe pulmonary cavitary consolidation. She was intubated on 03/23/2020 and the chest x-ray showed extensive consolidation of the right upper lobe. She was extubated on 03/25/2020. After being extubated, the patient did well for around 24-48 hours on 2 L about 2 by nasal cannula. He went again to respiratory failure requiring BiPAP and she was supported with BiPAP for another 24 hours and currently she is on 2 L of oxygen by nasal cannula. During this time, the bronchioloalveolar lavage with a combination of MRSA and Nicolle and the patient is on a combination of vancomycin and Eraxis for now. Her chest x-ray stable. Her pulmonary status is also stable. 2 Right-sided atypical chest pain secondary to above , inactive stable 3 Leukocytosis secondary to above, was improving and the white cell count came back at 16.1, Recovered 4 Anemia, current hemoglobin 8.5 5 Acute renal failure, covered, current creatinine 1.25, stable 6 Lactic acidosis secondary to above, recovered 7 Multiple myeloma with abnormal uptake associated sedated with the patient's right lower lobe lung mass, currently on Revlimid 8 Chronic obstructive pulmonary disease with previous chronic tobacco dependence 9 Acute on chronic kidney disease, stage IIIIV, and the patient stable creatin ine is at 1.25. 10 History of diastolic congestive heart failure 11 Paroxysmal atrial fibrillation/flutter with RVR, currently in sinus rhythm and maintained on Eliquis, currently off anticoagulation because of history of bleeding. Her current rhythm is sinus. 12 Previous history of CVA 13 Hypertension 14 Hyperlipidemia 15 Chronic anxiety 16 thrombocytopenia, platelet counts are improving for now and the level is up to 135 Plan The patient most likely has a recurrent pneumonia severity hospital-acquired pneumonia with staph/MRSA and the patient also showed Nicolle albicans. The patient is currently on a combination of antibiotics. Continue the combination vancomycin and Eraxis he had the chest x-ray shows increased infiltration of the right upper lobe area. Metoprolol and has been discontinued. The chest x-ray showing stable right upper lobe pulmonary infiltration. The patient is currently on 2 L of oxygen by nasal cannula. She did not require to use the BiPAP overnight. She needs to use the incentive spirometer and do more aggressive pulmonary toileting along with aspiration precautions. Down the IV fluids to 20 mL an hour Monitor white count Monitor hemoglobin Use the Lasix dose of 40 mg every 24 hours IV Continue the rest of the supportive care. Hematologic profile is stable. Platelet counts are stable and improving The patient passed a swallow evaluation. We will keep her nothing by mouth for now as the patient is currently BiPAP dependent. He is same antibiotic coverage Monitor electrolytes Condition is critical and she has a high risk of going into further respiratory insufficiency requiring intubation mechanical ventilation. Stop the IV Solu- Medrol and put the patient a prednisone burst taper. We'll continue to follow. Patient can be transferred to S.
[2020-03-28] MEDS: IPRATROPIUM-ALBUTEROL 3 ML NEB INHALATION SCH ×4 (08:00→20:21)
--- NOTE | 2020-03-28 08:05 | XR ---
EXAMINATION TYPE: XR chest 1V DATE OF EXAM: 03/28/2020 COMPARISON: 03/27/2020 INDICATION: Fluid overload TECHNIQUE: Single frontal view of the chest is obtained. FINDINGS: The heart size is normal. The pulmonary vasculature is prominent. There is a patchy consolidation to the right upper lobe. Additional milder increased lung markings ar e through the remaining portions of the lungs. Multiple old rib fractures are evident. Findings appea r stable over the interval IMPRESSION: 1. Stable appearance to the chest. Consolidation in the right upper lobe and milder infiltrate elsewh ere remains present
[2020-03-28 08:32] LABS: Glucose,Whole Blood 131 mg/dL (75-99)
[2020-03-28] MEDS: INSULIN ASPART (NovoLOG) 100 UNIT/ML VIAL SQ SCH ×4 (08:33→20:31)
[2020-03-28] MEDS: APIXABAN 2.5 MG TABLET PO SCH ×2 (09:43→20:32)
[2020-03-28] MEDS: ANIDULAFUNGIN 100 MG in SODIUM CHLORIDE 0.9% 100 ML IVPB SCH (09:43)
[2020-03-28] MEDS: FUROSEMIDE 10 MG/ML 4 ML VIAL IV SCH (09:43)
[2020-03-28] MEDS: predniSONE 20 MG TAB PO SCH (09:44)
[2020-03-28] MEDS: valACYclovir 500 MG TAB PO SCH ×2 (09:44→20:33)
[2020-03-28] MEDS: PANTOPRAZOLE 40 MG TABLET PO SCH ×2 (09:44→20:32)
[2020-03-28] MEDS ORDERED: VANCOMYCIN TROUGH DUE 1 EACH MISC MISCELLANE ONE (11:00)
[2020-03-28 11:51] LABS: Glucose,Whole Blood 140 mg/dL (75-99)
[2020-03-28] MEDS: CALCIUM CARB-VIT D 500 MG-5 MCG TAB PO SCH (13:12)
[2020-03-28] MEDS: SERTRALINE 100 MG TAB PO SCH (13:13)
[2020-03-28] MEDS: SODIUM BICARBONATE TAB 650 MG TAB PO SCH ×2 (13:13→20:32)
[2020-03-28] MEDS: METOPROLOL TARTRATE 25 MG TAB PO SCH ×2 (13:13→20:32)
[2020-03-28] MEDS: VANCOMYCIN 750 MG in SODIUM CHLORIDE 0.9% 250 ML IVPB SCH (14:29)
[2020-03-28 17:28] LABS: Glucose,Whole Blood 103 mg/dL (75-99)
--- NOTE | 2020-03-28 18:17 | P.PN ---
Progress Note - Text Progress Note Date: 03/28/20 Presenting complaint: Intubated Interval history: This is a very pleasant 69-year-old patient of Dr. Villalobos. Chronic stable medical conditions include paroxysmal atrial flutter fibrillation, , CHF with an EF of 50-55%, tricuspid and mitral regurgitation, secondary pulmonary hypertension, chronic kidney disease stage IV, hypertension, hyperlipidemia,. Patient also being treated for multiple myeloma. on REVLIMID Patient presented with shortness of breath confusion cough congestion. Admitted with right upper lobe pneumonia, acute delirium. Started on IV aztreonam and azithromycin. Developed black tarry stools. Dropped hemoglobin. 1 unit of blood given. Patient desaturated. Moved to the ICU on March 11. Intubated March 14-placed on IV levo fed propofol antibiotics changed to IV meropenem. bronchoscopy done by Dr. Hart[March 16]-thick philomena, secretions obtained. Extubated March 19. Patient had to be reintubated. Patient underwent repeat bronchoscopy on March 23. Extubated March 25. Today-moved out of the ICU. Eating some. Breathing better. Laying in bed. Review of systems: Attempted for constitutional, cardiovascular, GI, pulmonary. relevant finding as above Active Medications Acetaminophen (Acetaminophen Tab 325 Mg Tab) 650 mg PO Q4HR PRN PRN Reason: Fever and/ or Pain Last Admin: 03/11/20 22:00 Dose: 650 mg Documented by: Albuterol/Ipratropium (Ipratropium-Albuterol 3 Ml Neb) 3 ml INHALATION RT-QID [facility] Last Admin: 03/28/20 16:37 Dose: 3 ml Documented by: Apixaban (Apixaban 2.5 Mg Tablet) 2.5 mg PO BID [facility] Last Admin: 03/28/20 09:43 Dose: 2.5 mg Documented by: Calcitriol (Calcitriol 0.25 Mcg Cap) 0.25 mcg PO PC-LUNCH [facility] Last Admin: 03/28/20 13:12 Dose: 0.25 mcg Documented by: Calcium Carbonate (Calcium Carb-Vit D 500mg-200un 1 Each Tab) 2 each PO DAILY@1200 [facility] Last Admin: 03/28/20 13:12 Dose: 2 each Documented by: Furosemide (Furosemide 10 Mg/Ml 4 Ml Vial) 40 mg IV Q24HR [facility] Last Admin: 03/28/20 09:43 Dose: 40 mg Documented by: Hydralazine HCl (Hydralazine Hcl 20 Mg/Ml 1 Ml Vial) 10 mg IVP Q6HR PRN PRN Reason: Blood Pressure - High Last Admin: 03/27/20 03:26 Dose: 10 mg Documented by: Sodium Chloride (Saline 0.9%) 1,000 mls @ 20 mls/hr IV .Q24H [facility] Last Admin: 03/28/20 06:41 Dose: 40 mls/hr Documented by: Anidulafungin 100 mg/ Sodium (Chloride) 130 mls @ 84 mls/hr IVPB DAILY [facility] Last Admin: 03/28/20 09:43 Dose: 84 mls/hr Documented by: Vancomycin HCl 750 mg/ Sodium (Chloride) 250 mls @ 125 mls/hr IVPB Q24H [facility] Insulin Aspart (Insulin Aspart (Novolog) 100 Unit/Ml Vial) 0 unit SQ ACHS [facility]; Protocol Last Admin: 03/28/20 17:40 Dose: Not Given Documented by: Latanoprost (Latanoprost 0.005% Ophth Drops 2.5 Ml Btl) 1 drops BOTH EYES HS [facility] Last Admin: 03/27/20 20:39 Dose: 1 drops Documented by: Metoprolol Tartrate (Metoprolol Tartrate 25 Mg Tab) 25 mg PO BID@1200,2100 [facility] Last Admin: 03/28/20 13:13 Dose: 25 mg Documented by: Miscellaneous Information (Pneumonia Protocol Utilized 1 Each Mis) 1 each PO ONCE PRN PRN Reason: Per Protocol Miscellaneous Information (Potassium Replacement Protocol 1 Each [facility] [place]) 1 each MISCELLANE DAILY PRN; Protocol PRN Reason: Per Protocol Pantoprazole Sodium (Pantoprazole 40 Mg Tablet) 40 mg PO BID [facility] Last Admin: 03/28/20 09:44 Dose: 40 mg Documented by: Prednisone (Prednisone 20 Mg Tab) 40 mg PO DAILY [facility] Last Admin: 03/28/20 09:44 Dose: 40 mg Documented by: Sertraline HCl (Sertraline 100 Mg Tab) 200 mg PO PC-LUNCH [facility] Last Admin: 03/28/20 13:13 Dose: 200 mg Documented by: Sodium Bicarbonate (Sodium Bicarbonate Tab 650 Mg Tab) 1,300 mg PO DAILY@1200 [facility] Last Admin: 03/28/20 13:13 Dose: 1,300 mg Documented by: Sodium Bicarbonate (Sodium Bicarbonate Tab 650 Mg Tab) 650 mg PO HS [facility] Last Admin: 03/27/20 20:38 Dose: 650 mg Documented by: Valacyclovir HCl (Valacyclovir 500 Mg Tab) 500 mg PO BID [facility] Last Admin: 03/28/20 09:44 Dose: 500 mg Documented by: Physical examination: VITAL SIGNS: 98, 82, 16, 140/86, 98% on 3 L GENERAL: Laying in bed, awake. EYES: Pupils equal. Conjunctiva pale HEENT: Dry lips. NECK: JVD not raised; masses not palpable. HEART: First and second heart sounds are normal; no edema. LUNGS: Respiratory rate increased, decreased breath sounds ABDOMEN: Soft, nontender, liver spleen not palpable, no masses palpable. PSYCH: AO - times three. Mood and affect tired MUSCULOSKELETAL: Diffuse wasting of muscles Investigations, reviewed in the clinical context: March 28: White count 5.9 hemoglobin 8.5 platelets 53 potassium 3.6 bun 40 creatinine 1.25 March 27: Sodium 148 potassium 4 creatinine 1.16 March 26: White count 5.3 hemoglobin 9.2 platelets 63 potassium 4.3 creatinine 1.11 March 25: White count 4.3 hemoglobin 8.1 platelet 61 potassium 3.5 bun 49 creatinine 1.21 March 19: White count 9.5 hemoglobin 10.8 platelets 40 potassium 3.9 bun 66 creatinine 1.7 to March 18: White count 9.1 hemoglobin 10.2 potassium 3.7 bun 62 creatinine 1.83 Chest x-ray film personally reviewed by me-infiltrate clearing March 16: White count 9.3 hemoglobin 10 platelets 46 potassium 4.2 BUN 50 creatinine 1.88 March 15: White count 7.4 hemoglobin 5.9 platelets 50 BUN 38 creatinine 1.5 for March 14: White count 12.3 hemoglobin 7.4 potassium 4.8 bun 39 creatinine 1.43. ABG show pH of 7.15 March 13: White count 15.4 hemoglobin 8.7 platelets 91 bun 36 creatinine 1.48 March 12: White count 23.4 hemoglobin 9.2 platelets 113. Check stat x-ray film-right upper lobe dense infiltrate March 11: White count 9.2 hemoglobin 6 platelets 86potassium 5 creatinine 1.56 pro-calcitonin 1.34 Pro-calcitonin 1.84 White count 14 hemoglobin 8.1 platelets 134 potassium 4.2 BUN 47 creatinine 2.64 Lactic acid 4.9 Coronavirus P/Cr-not detected VQ scan-low probability for PE EKG tracing personally reviewed by me-normal sinus rhythm some ST segment changes Chest f-rew-aizijd infiltrate throughout the right upper lobe and the superior segment of the right lower lobe Wtcxmlcnabuh-ejlzuiuo-Aamsdbs albicans Sputum-Nicolle albicans Bronchial washing culture from March 23-MRSA Assessment: -Right upper lobe pneumonia, MRSA in an immunosuppressed patient, , POA,- -Paroxysmal atrial flutter and fibrillation-with rapid ventricular rate then went back into sinus rhythm -Anemia multifactorial including that of chronic disease including multiple myeloma -Acute COPD exacerbation in a ex-smoker, improving slowly -Chronic congestive heart failure from systolic and diastolic dysfunction EF 50- 55% -Moderate tricuspid and severe mitral regurgitation, nontraumatic -Severe secondary pulmonary hypertension secondary to CHF and COPD -Multiple myeloma on chemotherapy -Chronic kidney disease secondary to multiple myeloma stage IV and chronic interstitial nephropathy -Essential hypertension -Hyperlipidemia -Severe protein calorie malnutrition due to poor oral intake. BMI 14.4 -Chronic medical debility -Multiple old rib fractures due to multiple myeloma -Acute GI bleed dropping hemoglobin down to 6.-Received total of 3 units of blood, AGG [place] for now. -Acute hypoxic respiratory failure-worsening overnight-intubated on the ventilator March 14-extubated March 19. Currently on 4 L nasal cannula -Hypotensive status post levo fed -Acute kidney injury possibly combination of ATN and prerenal-improved Plan: Continue IV Anidulafungin, eliquis, , oral prednisone, IV vancomycin, valacyclovir. Follow
--- NOTE | 2020-03-28 19:39 | PN ---
PROGRESS NOTE DATE OF SERVICE: 03/28/2020 REASON FOR FOLLOWUP: MRSA pneumonia. INTERVAL HISTORY: The patient is currently afebrile. The patient is breathing more comfortably. The patient denies having any chest pain, shortness of breath. She did have some cough, not bringing up any sputum. No nausea, vomiting. No abdominal pain. No diarrhea. PHYSICAL EXAMINATION: Blood pressure 152/79 with a pulse of 73, temperature 98. She is 96% on 3 L nasal cannula. General description is an elderly female lying in bed in no distress. Respiratory system: Unlabored breathing. Coarse breath sounds at the base. No wheeze. HEART: S1, S2. Regular rate and rhythm EXTREMITIES: No edema of the feet. LABS: Hemoglobin 8.5, white count 5.9. DIAGNOSTIC IMPRESSION AND PLAN: Patient with MRSA pneumonia, covered with vancomycin. Kidney function will be monitored closely which is currently stable and continue supportive care. MMODL / IJN: [id number] /
[2020-03-28 20:24] LABS: Glucose,Whole Blood 105 mg/dL (75-99)
[2020-03-28] MEDS: LATANOPROST 0.005% OPHTH DROPS 2.5 ML BTL BOTH EYES SCH (20:33)
[2020-03-29 06:07] LABS: Anisocytosis Slight; Basophils % (A) 0 %; Eosinophils % (A) 1 %; HCT 26.2 % (34.0-46.0); HGB 8.6 gm/dL (11.4-16.0); Hypochromasia Slight; Lymphocytes # (A) 0.3 k/uL (1.0-4.8); Lymphocytes % (A) 6 %; MCH 30.3 pg (25.0-35.0); MCHC 32.7 g/dL (31.0-37.0); MCV 92.6 fL (80.0-100.0); Macrocytosis Slight; Mean Platelet Volume 9.6; Monocytes # (A) 0.3 k/uL (0-1.0); Monocytes % (A) 5 %; Neutrophils % (A) 88 %; RBC 2.84 m/uL (3.80-5.40); RDW 19.3 % (11.5-15.5); WBC 5.7 k/uL (3.8-10.6)
[2020-03-29 06:13] LABS: Glucose,Whole Blood 81 mg/dL (75-99)
[2020-03-29 06:20] LABS: Calcium 7.1 mg/dL (8.4-10.2); Magnesium 2.3 mg/dL (1.6-2.3); Potassium 3.7 mmol/L (3.5-5.1)
[2020-03-29] MEDS: INSULIN ASPART (NovoLOG) 100 UNIT/ML VIAL SQ SCH ×4 (06:22→21:28)
[2020-03-29 07:24] LABS: Large Platelets Present; Platelet Count 49 k/uL (150-450)
[2020-03-29] MEDS: IPRATROPIUM-ALBUTEROL 3 ML NEB INHALATION SCH ×4 (08:39→19:42)
--- NOTE | 2020-03-29 09:25 | P.PN ---
Subjective Progress Note Date: 03/29/20 This is a very pleasant 69-year-old female admitted on March 08, 2020. She has a history of atrial fibrillation/flutter, congestive heart failure, chronic obstructive pulmonary disease with chronic hypoxic respiratory failure, CVA/TIA, hypertension, hyperlipidemia, rheumatoid arthritis, COPD with previous chronic tobacco dependence. She also has a history of multiple myeloma and is currently on Revlimid. Her initial diagnosis this admission was atrial fibrillation with RVR, black stools, and pneumonia. She was initially admitted to the stepdown unit, and came to the intensive care unit on March 11. She did require 3 units of packed red blood cells for her anemia. Because of worsening respiratory status and hypoxemia, she was intubated on 03/14/2020 and successfully extubated on 03/19/2020. She had undergone bronchoscopy with BAL of the right upper lobe. Cultures positive for Nicolle only. The patient this morning the chest into the intensive care unit. Apparently overnight the patient was getting progressively more short of breath. He got transferred to the intensive. Earlier this morning and the patient was intubated and placed on a mechanical ventilator. Note that the patient currently is sedated with propofol it is running at 50 g per KG per minute. The patient is on assist control mode of ventilation at the rate of 20 with a tidal volume of 350 and FiO2 of 50% with a PEEP of 5. Current pulse ox is 98%. Peak airway pressures 38. Chest x-ray shows multiple bila teral rib fractures in addition to extensive consolidation of the right is essentially worse compared to her previous chest x-rays. Her white cell count is up to 32. She is currently on IV Merrem. The patient is also chronically on prednisone maintained at a dose of 20 mg by mouth daily. Cardiac rhythm is sinus. She is very much thin and frail and cachectic looking. She has cold sores on her lips and she is currently on Valtrex. On today's evaluation of 03/24/2020, seeing the patient for a follow-up. As mentioned earlier, the patient was intubated and placed on a mechanical ventilator for an acute and recurrent respiratory failure. The chest x-ray showed extensive consolidation of the right upper lobe along with a cavitating right upper lobe pulmonary infiltrates/pneumonia. The patient was already taking melatonin. Vancomycin and atelectasis was also added to her regimen. Th is morning, the patient remains on a mechanical ventilator. She is an assist- control mode at the rate of 20 with a tidal volume of 350 and FiO2 of 40% with a PEEP of 5. Chest x-ray from today adequate positioning of the orotracheal tube. There is still consolidation of the right upper lobe and this has improved considerably compared to yesterday. The patient has multiple areas of rib fractures bilaterally. Orogastric tube is in place. Comparing the x-ray from yesterday, there is improvement in the right upper lobe consolidation and elevation. Noted the patient is also post bronchoscopy that was done yesterday and we collected a lavage of the right upper lobe. cultures are still pending for now. the patient is still on broad-spectrum antibiotics and the patient is currently receiving a combination of meropenem, atelectasis and vancomycin. she is afebrile for now. her white cell count is at 4.7 with a hemoglobin of 8.6. blood gases from today showed a ph of 7.43 with a pco2 of 34 and po2 of 106 and this was done above-mentioned ventilator setting. he had a 45 with a creatinine of 1.25. she is improved compared to yesterday. the patient is receiving enteral feeding for nutritional support and currently she is on vital high protein at the rate of 34 ml an hour. she has no abdominal distention. there is 1 bowel movement activity yet. she is on no pressors. He still having some loose bloody respiratory secretions. Bronchoscopy that was done yesterday showed no evidence of any endobronchial tumors or lesions or foreign bodies. As mentioned, culture are still pending. The patient is known to have COPD and previous history of multiple myeloma. Her cardiac rhythm is sinus and she is known to have previous history of atrial fibrillation. She is on no antico agulants for now. On Lovenox for DVT prophylaxis dose of 30 mg subcu every 24 hours. On 03/25/2020, I'm seeing the patient on a follow-up. the patient and Mrs sedated with propofol and this is running at 60 mcg/kg per minute. She is hemodynamically stable. The propofol be gradually weaned off. We attempted to wean her to yesterday, however the patient seemed to have a high rapid shallow breathing index and she was a bit uncomfortable. Based on that, we avoided the extubation process. She was placed back on sedation and she's been off sedation since. She is calm and comfortable that she is easily arousable. She is on a mechanical ventilator on assist control mode at a rate of 20 with tidal volume of 50 and FiO2 of 40% with a PEEP of 5. Her blood gases from today shows a pH of 7.42 with a pCO2 of 33 and pO2 of 131. Chest x-ray shows right upper lobe consolidation with seems to be improving. Bronchoscopy and the right upper lobe bronchioloalveolar lavage was done and the cultures are still negative and the patient continues to be on a combination of meropenem, vancomycin and Eraxis. She has been afebrile for now. No significant orotracheal secretions. There is some loose bloody secretions in her orotracheal tube is being suctioned out. She is having an adequate urine output. She is on Lovenox for DVT prophylaxis. This was held yesterday because of some drop in the platelet count. The white cell count today is at 4.3 with a platelet count of 61 and I think the Lovenox can be restarted. BUN is at 49 with a creatinine of 1.2 On 03/26/2020, the patient is being seen for a follow-up. The patient was weaned off the mechanical ventilator and the patient was extubated to 2 L of oxygen by nasal cannula. This morning she is awake and alert she is following commands and answering questions appropriately. A follow-up chest x-ray was done this morning and is still showing some chronic consolidation of the right upper lobe. Multiple rib fractures bilaterally. No interval worsening. As for the bronchioloalveolar lavage from the previous bronchoscopy, it showed presumed staph species and the final cultures and sensitivities is pending.. There was a viral growth with HSV. The patient is receiving a combination of meropenem, vancomycin and Eraxis. He is doing well. Her white cell count today is at 5.3 with hemoglobin of 9.2. Blood work shows a stable renal function. She remains on IV fluids at 40 mL an hour of normal saline. She is awake and alert and communicating. No other significant events overnight. She was extubated successfully. Her platelet count from today is 63 which is stable compared to yesterday. 03/27/2020, the patient is back on BiPAP. After extubated in the patient, she was able to go down to 2 L about 2 by nasal cannula. Overnight, was informed that the patient was getting short of breath and she was having increased chest congestion and worsening shortness of breath and increased work of breathing. She was placed on BiPAP at a pressure of 10/5 cm of water and FiO2 40%. She was started on diuretics. She was given IV Lasix. Since then, she is producing adequate amount of urine output and she is less short of breath. She is able to tolerate the BiPAP without any major difficulties. She is a very thin frail elderly female patient who carries a BMI of 18.9. She is currently on Lasix 40 mg IV push every 12 hours. The patient is not fluid balance has been negative since she was started on diuretics. Note that the bronchioloalveolar lavage from the right upper lobe showed MRSA. The patient also had positive HSV. The patient is currently on a combination of meropenem, vancomycin and Eraxis. As mentioned earlier, she is afebrile. The patient's white cell count has not been repeated today and this is pending. Her sodium level is at 148 with a chloride of 120. BUN is 44 with a creatinine of 1.1. Magnesium is at 1.8. The chest x- ray from today shows COPD and bilateral pulmonary infiltrates most marked in the right upper lobe area. 03/28/2020, the patient is doing well on 2 L of oxygen by nasal cannula and she is extubated. BiPAP was discontinued and the patient did not require BiPAP. The patient is doing well. A repeat chest x-ray was done today and the patient has still chronic infiltration of the right upper lobe consistent with some pneumonia/airspace disease. There is also bilateral interstitial infiltrates. The patient was diuresed with IV Lasix 40 mg every 12 hours and she is clean 0.6 negative fluid balance since yesterday. White cell count is at 5.0 which is lower compared to yesterday the hemoglobin stable at 8.5. She has chronic thrombocytopenia with a limited amount of 53. Creatinine is at 1.25 with a BUN of 40. Sodium was on the right is 146 and the patient was being diuresed. Nevertheless, sodium is improved compared to yesterday. The patient is awake. She passed a swallow evaluation. However, we still have to be very cautious with her swallowing process and the patient is able to swallow nectar thick material. She is also having her pills with an applesauce. Her antibiotic coverage includes a combination of vancomycin and Eraxis and the patient has MRSA and Nicolle in her bronchioloalveolar lavage. She is known to have COPD. She'll be provided incentive spirometer. She is afebrile. No issues with pain. No other issues for now. 03/29/2020, the patient remains extubated on 2 L of oxygen by nasal cannula. Yesterday she was in the intensive care unit. She was quite stable. She was diuresed adequately. Based on that, I transferred out of the intensive care unit. She is in a negative fluid balance as the patient is receiving Lasix 40 mg IV push every 12 hours. The fluid balance over the past 24 hours remains essentially negative. She has produced another 3.7 L of negativity in terms of her fluid balance over the past 24 hours. The chest x-ray from yesterday showed persistent infiltration of the right upper lobe and there is some increased interstitial markings bilaterally. The patient otherwise is receiving Lasix. She is on Lasix 40 mg every 12 hours is also being covered with broad-spectrum antibiotics regarding MRSA pneumonia. Note that on 2 separate occasions, she control Nicolle in her bronchioloalveolar lavage and she was placed on Eraxis. MRSA was also present in the bronchioloalveolar lavage and the patient is currently on vancomycin. Her blood work from today shows a stable hemoglobin of 8.6. The creatinine today is at 1.26 which is also stable compared to yesterday. She has developed some mild metabolic acidosis with a bicarb level of 29. BUN is at 37. She has COPD patient using incentive spirometer. She is quite frail. Her body mass index is at 16.1. Overall, she is quite debilitated. She is currently on a medical floor. Objective - Vital Signs Vital signs: Vital Signs Temp 97.4 F L 03/29/20 08:00 Pulse 72 03/29/20 08:50 Resp 20 03/29/20 08:00 BP 159/78 03/29/20 08:00 Pulse Ox 92 L 03/29/20 08:00 Intake & Output 03/28/20 03/29/20 03/29/20 18:59 06:59 18:59 Intake Total 1010 Output Total 880 3500 Balance 130 -3500 Weight 42.5 kg Intake: IV 380 Magnesium Sulfate-D5w Pmx 300 1 gm In Dextrose/Water 1 100ml.bag @ 100 mls/hr IVPB Q1H [facility] Rx#: [id number] Sodium Chloride 0.9% 1, 80 000 ml @ 20 mls/hr IV . Q24H [facility]IVE Rx#:[id number] Oral 630 Output: Urine 280 2100 Stool 600 1400 Other: Voiding Method Indwelling Catheter Indwelling Catheter ABP, PAP, CO, CI - Last Documented Arterial Blood Pressure 146/53 - Exam GENERAL EXAM: Alert, very pleasant, 61-year-old frail looking female patient currently on 2-3 L of oxygen by nasal cannula, she is quite frail and she has a body mass index of 18 EYES: Normal reaction of pupils, equal size. Conjunctiva pink, sclera white. NOSE: Clear with pink turbinates. THROAT: No erythema or exudates. NECK: No masses, no JVD, no thyroid enlargement, no adenopathy. CHEST: No chest wall deformity. Symmetrical expansion. LUNGS: Equal air entry with diminished breath over right upper lobe, no wheeze, rhonchi or dullness. CVS: Regular rate and rhythm, normal S1 and S2, no gallops, no murmurs, no rubs ABDOMEN: Soft, nontender. No hepatosplenomegaly, normal bowel sounds, no guarding or rigidity. EXTREMITIES: No clubbing, no edema, no cyanosis, 2+ pulses and upper and lower extremities. MUSCULOSKELETAL: Muscle strength and tone normal. SPINE: No scoliosis or deformity SKIN: No rashes CENTRAL NERVOUS SYSTEM: Alert and oriented 3, there is global generalized muscle weakness. PSYCHIATRIC: Awake and alert and there is no significant anxiety or depression - Labs CBC & Chem 7: 03/29/20 05:43 03/29/20 05:43 Labs: Abnormal Lab Results - Last 24 Hours (Table) 03/28/20 03/28/20 03/28/20 Range/Units 11:49 17:15 20:23 RBC (3.80-5.40) m/uL Hgb (11.4-16.0) gm/dL Hct (34.0-46.0) % RDW (11.5-15.5) % Plt Count (150-450) k/uL Lymphocytes # (1.0-4.8) k/uL Sodium (137-145) mmol/L Chloride (98-107) mmol/L BUN (7-17) mg/dL Creatinine (0.52-1.04) mg/dL POC Glucose (mg/dL) 140 H 103 H 105 H (75-99) mg/dL Calcium (8.4-10.2) mg/dL 03/29/20 03/29/20 Range/Units 05:43 05:43 RBC 2.84 L (3.80-5.40) m/uL Hgb 8.6 L (11.4-16.0) gm/dL Hct 26.2 L (34.0-46.0) % RDW 19.3 H (11.5-15.5) % Plt Count 49 L (150-450) k/uL Lymphocytes # 0.3 L (1.0-4.8) k/uL Sodium 146 H (137-145) mmol/L Chloride 115 H (98-107) mmol/L BUN 37 H (7-17) mg/dL Creatinine 1.26 H (0.52-1.04) mg/dL POC Glucose (mg/dL) (75-99) mg/dL Calcium 7.1 L (8.4-10.2) mg/dL Microbiology - Last 24 Hours (Table) 03/23/20 09:22 Blood Culture - Preliminary Blood No Growth after 120 hours Assessment and Plan Plan: 1 Acute hypoxic respiratory failure requiring intubation and mechanical ventilation from 03/14 - 03/19/2020 secondary to an acute right upper lung the pneumonia, status post bronchoscopy with BAL. After being extubated, the patient will be admitted to the intensive care unit with worsening hypoxemia respiratory failure. The patient is currently intubated on a mechanical ventilator. Chest x-ray shows extensive consolidation of the right upper lobe. Her previous CAT scan of the chest from 01/10/2020 showed emphysema with upper lobe predominance. There was however some creatinine but opacity in the lung bases bilaterally. Nevertheless, the current findings are quite extensive and the patient developed worsening in the right upper lobe pulmonary cavitary consolidation. She was intubated on 03/23/2020 and the chest x-ray showed extensive consolidation of the right upper lobe. She was extubated on 03/25/2020. After being extubated, the patient did well for around 24-48 hours on 2 L about 2 by nasal cannula. He went again to respiratory failure requiring BiPAP and she was supported with BiPAP for another 24 hours and currently she is on 2 L of oxygen by nasal cannula. During this time, the bronchioloalveolar lavage with a combination of MRSA and Nicolle and the patient is on a combination of vancomycin and Eraxis for now. Her chest x-ray stable. Her pulmonary status is also stable. 2 Right-sided atypical chest pain secondary to above , inactive stable 3 Leukocytosis secondary to above, was improving and the white cell count came back at 5.7 4 Anemia, current hemoglobin 8.6 5 Acute renal failure, covered, current creatinine 1.26, stable 6 Lactic acidosis secondary to above, recovered 7 Multiple myeloma with abnormal uptake associated sedated with the patient's right lower lobe lung mass, currently on Revlimid 8 Chronic obstructive pulmonary disease with previous chronic tobacco dependence 9 Acute on chronic kidney disease, stage IIIIV, and the patient stable creatinine is at 1.26. 10 History of diastolic congestive heart failure 11 Paroxysmal atrial fibrillation/flutter with RVR, currently in sinus rhythm and maintained on Eliquis, currently off anticoagulation because of history of bleeding. Her current rhythm is sinus. 12 Previous history of CVA 13 Hypertension 14 Hyperlipidemia 15 Chronic anxiety 16 thrombocytopenia, platelet counts are 49 Plan The patient most likely has a recurrent pneumonia severity hospital-acquired pneumonia with staph/MRSA and the patient also showed Nicolle albicans. The patient is currently on a combination of antibiotics. She is off the BiPAP. Her oxygen flows ranging between 2 and 3 L per minute nasal cannula. A repeat chest x-ray will be done tomorrow. Meanwhile, continue the same antibiotic coverage including examination of vancomycin and Eraxis Down the IV fluids to 20 mL an hour Monitor white count, normalized Monitor hemoglobin, stable Lower the Lasix dose to 40 mg once a day campus safety officer and this continued IV Lasix Monitor the platelet counts Continue the rest of the supportive care. Hematologic profile is stable. Platelet counts are stable and improving The patient passed a swallow evaluation. Continue the Eliquis and monitor the platelet count. No signs of any bleeding for now. He is same antibiotic coverage Monitor electrolytes Continue the prednisone burst taper Physical therapy Aspiration precautions Repeat chest x-ray in the morning Monitor platelet count We'll follow
[2020-03-29] MEDS: ANIDULAFUNGIN 100 MG in SODIUM CHLORIDE 0.9% 100 ML IVPB SCH (10:35)
[2020-03-29] MEDS: valACYclovir 500 MG TAB PO SCH (10:37)
[2020-03-29] MEDS: FUROSEMIDE 10 MG/ML 4 ML VIAL IV SCH (10:37)
[2020-03-29] MEDS: predniSONE 20 MG TAB PO SCH (10:38)
[2020-03-29] MEDS: APIXABAN 2.5 MG TABLET PO SCH ×2 (10:38→21:28)
[2020-03-29] MEDS: PANTOPRAZOLE 40 MG TABLET PO SCH ×2 (10:38→21:28)
[2020-03-29 12:22] LABS: Glucose,Whole Blood 74 mg/dL (75-99)
[2020-03-29] MEDS: SERTRALINE 100 MG TAB PO SCH (12:27)
[2020-03-29] MEDS: SODIUM BICARBONATE TAB 650 MG TAB PO SCH ×2 (12:27→21:28)
[2020-03-29] MEDS: CALCIUM CARB-VIT D 500 MG-5 MCG TAB PO SCH (12:28)
[2020-03-29] MEDS: METOPROLOL TARTRATE 25 MG TAB PO SCH ×2 (12:28→21:27)
[2020-03-29] MEDS: VANCOMYCIN 750 MG in SODIUM CHLORIDE 0.9% 250 ML IVPB SCH (15:42)
[2020-03-29 17:10] LABS: Glucose,Whole Blood 125 mg/dL (75-99)
[2020-03-29] MEDS: SODIUM CHLORIDE 0.9% 1,000 ML IV SCH (19:11)
--- NOTE | 2020-03-29 19:30 | PN ---
PROGRESS NOTE DATE OF SERVICE: 03/29/2020 REASON FOR FOLLOWUP: MRSA pneumonia. INTERVAL HISTORY: Patient is currently afebrile. Patient is breathing comfortably. Denies having any chest pain. Did have a cough. No sputum. No abdominal pain. No diarrhea. PHYSICAL EXAMINATION: Blood pressure 137/66, pulse of 90, temperature 98. She is 97% on room air. General description is an elderly female lying in bed in no distress. Respiratory system: Unlabored breathing, decreased breath sounds in the bases. No wheeze. Heart S1, S2. Regular rate and rhythm. Abdomen soft, no tenderness. LABS: Hemoglobin 8.1, white count of 5.7. BUN of 27, creatinine 1.36. DIAGNOSTIC IMPRESSION AND PLAN: Patient with MRSA pneumonia in this patient clinically responded to vancomycin to continue to finish a 2 week course of therapy while monitoring her kidney function closely. Continue supportive care. MMODL / IJN: [id number] /
--- NOTE | 2020-03-29 19:44 | P.PN ---
Progress Note - Text Progress Note Date: 03/29/20 Presenting complaint: Tired Interval history: This is a very pleasant 69-year-old patient of Dr. Villalobos. Chronic stable medical conditions include paroxysmal atrial flutter fibrillation, , CHF with an EF of 50-55%, tricuspid and mitral regurgitation, secondary pulmonary hypertension, chronic kidney disease stage IV, hypertension, hyperlipidemia,. Patient also being treated for multiple myeloma. on REVLIMID Patient presented with shortness of breath confusion cough congestion. Admitted with right upper lobe pneumonia, acute delirium. Started on IV aztreonam and azithromycin. Developed black tarry stools. Dropped hemoglobin. 1 unit of blood given. Patient desaturated. Moved to the ICU on March 11. Intubated March 14-placed on IV levo fed propofol antibiotics changed to IV meropenem. bronchoscopy done by Dr. Hart[March 16]-thick philomena, secretions obtained. Extubated March 19. Patient had to be reintubated. Patient underwent repeat bronchoscopy on March 23. Extubated March 25. Today-oral intake improving. Tired. Laying in bed. Breathing stable. Review of systems: Attempted for constitutional, cardiovascular, GI, pulmonary. relevant finding as above Active Medications Acetaminophen (Acetaminophen Tab 325 Mg Tab) 650 mg PO Q4HR PRN PRN Reason: Fever and/ or Pain Last Admin: 03/11/20 22:00 Dose: 650 mg Documented by: Albuterol/Ipratropium (Ipratropium-Albuterol 3 Ml Neb) 3 ml INHALATION RT-QID [facility] Last Admin: 03/29/20 15:54 Dose: 3 ml Documented by: Apixaban (Apixaban 2.5 Mg Tablet) 2.5 mg PO BID [facility] Last Admin: 03/29/20 10:38 Dose: 2.5 mg Documented by: Calcitriol (Calcitriol 0.25 Mcg Cap) 0.25 mcg PO PC-LUNCH [facility] Last Admin: 03/29/20 12:27 Dose: 0.25 mcg Documented by: Calcium Carbonate (Calcium Carb-Vit D 500mg-200un 1 Each Tab) 2 each PO DAILY@1200 [facility] Last Admin: 03/29/20 12:28 Dose: 2 each Documented by: Furosemide (Furosemide 40 Mg Tab) 40 mg PO DAILY [facility] Hydralazine HCl (Hydralazine Hcl 20 Mg/Ml 1 Ml Vial) 10 mg IVP Q6HR PRN PRN Reason: Blood Pressure - High Last Admin: 03/27/20 03:26 Dose: 10 mg Documented by: Sodium Chloride (Saline 0.9%) 1,000 mls @ 20 mls/hr IV .Q24H [facility] Last Admin: 03/29/20 19:11 Dose: Not Given Documented by: Anidulafungin 100 mg/ Sodium (Chloride) 130 mls @ 84 mls/hr IVPB DAILY [facility] Last Admin: 03/29/20 10:35 Dose: 84 mls/hr Documented by: Vancomycin HCl 750 mg/ Sodium (Chloride) 250 mls @ 125 mls/hr IVPB Q24H [facility] Last Admin: 03/29/20 15:42 Dose: 125 mls/hr Documented by: Insulin Aspart (Insulin Aspart (Novolog) 100 Unit/Ml Vial) 0 unit SQ ACHS [facility]; Protocol Last Admin: 03/29/20 17:19 Dose: Not Given Documented by: Latanoprost (Latanoprost 0.005% Ophth Drops 2.5 Ml Btl) 1 drops BOTH EYES HS [facility] Last Admin: 03/28/20 20:33 Dose: 1 drops Documented by: Metoprolol Tartrate (Metoprolol Tartrate 25 Mg Tab) 25 mg PO BID@1200,2100 [facility] Last Admin: 03/29/20 12:28 Dose: 25 mg Documented by: Miscellaneous Information (Pneumonia Protocol Utilized 1 Each Misc) 1 each PO ONCE PRN PRN Reason: Per Protocol Miscellaneous Information (Potassium Replacement Protocol 1 Each Misc) 1 each MISCELLANE DAILY PRN; Protocol PRN Reason: Per Protocol Miscellaneous Information (Vancomycin Trough Due 1 Each Misc) 0 each MISCELLANE DIRECTED ONE Stop: 03/30/20 14:01 Pantoprazole Sodium (Pantoprazole 40 Mg Tablet) 40 mg PO BID [facility] Last Admin: 03/29/20 10:38 Dose: 40 mg Documented by: Prednisone (Prednisone 20 Mg Tab) 40 mg PO DAILY [facility] Last Admin: 03/29/20 10:38 Dose: 40 mg Documented by: Sertraline HCl (Sertraline 100 Mg Tab) 200 mg PO PC-LUNCH [facility] Last Admin: 03/29/20 12:27 Dose: 200 mg Documented by: Sodium Bicarbonate (Sodium Bicarbonate Tab 650 Mg Tab) 1,300 mg PO DAILY@1200 [facility] Last Admin: 03/29/20 12:27 Dose: 1,300 mg Documented by: Sodium Bicarbonate (Sodium Bicarbonate Tab 650 Mg Tab) 650 mg PO HS [facility] Last Admin: 03/28/20 20:32 Dose: 650 mg Documented by: Physical examination: VITAL SIGNS: 97.9, 78, 18, 1 6580, 97% room air GENERAL: Laying in bed, awake. EYES: Pupils equal. Conjunctiva pale HEENT: Dry lips. NECK: JVD not raised; masses not palpable. HEART: First and second heart sounds are normal; no edema. LUNGS: Respiratory rate increased, decreased breath sounds ABDOMEN: Soft, nontender, liver spleen not palpable, no masses palpable. PSYCH: AO - times three. Mood and affect tired MUSCULOSKELETAL: Diffuse wasting of muscles Investigations, reviewed in the clinical context: March 29: White count 5.7 hemoglobin 8.6 platelets 49 potassium 3.7 creatinine 1.26 March 28: White count 5.9 hemoglobin 8.5 platelets 53 potassium 3.6 bun 40 creatinine 1.25 March 27: Sodium 148 potassium 4 creatinine 1.16 March 26: White count 5.3 hemoglobin 9.2 platelets 63 potassium 4.3 creatinine 1.11 March 25: White count 4.3 hemoglobin 8.1 platelet 61 potassium 3.5 bun 49 creatinine 1.21 March 19: White count 9.5 hemoglobin 10.8 platelets 40 potassium 3.9 bun 66 creatinine 1.7 to March 18: White count 9.1 hemoglobin 10.2 potassium 3.7 bun 62 creatinine 1.83 Chest x-ray film personally reviewed by me-infiltrate clearing March 16: White count 9.3 hemoglobin 10 platelets 46 potassium 4.2 BUN 50 creatinine 1.88 March 15: White count 7.4 hemoglobin 5.9 platelets 50 BUN 38 creatinine 1.5 for March 14: White count 12.3 hemoglobin 7.4 potassium 4.8 bun 39 creatinine 1.43. ABG show pH of 7.15 March 13: White count 15.4 hemoglobin 8.7 platelets 91 bun 36 creatinine 1.48 March 12: White count 23.4 hemoglobin 9.2 platelets 113. Check stat x-ray film-right upper lobe dense infiltrate March 11: White count 9.2 hemoglobin 6 platelets 86potassium 5 creatinine 1.56 pro-calcitonin 1.34 Pro-calcitonin 1.84 White count 14 hemoglobin 8.1 platelets 134 potassium 4.2 BUN 47 creatinine 2.64 Lactic acid 4.9 Coronavirus P/Cr-not detected VQ scan-low probability for PE EKG tracing personally reviewed by me-normal sinus rhythm some ST segment changes Chest q-wfv-utknsa infiltrate throughout the right upper lobe and the superior segment of the right lower lobe Odrnfvigvqjd-wrpjuwql-Kobcjzf albicans Sputum-Nicolle albicans Bronchial washing culture from March 23-MRSA Assessment: -Right upper lobe pneumonia, MRSA in an immunosuppressed patient, , POA,- -Paroxysmal atrial flutter and fibrillation-with rapid ventricular rate then went back into sinus rhythm -Anemia multifactorial including that of chronic disease including multiple myeloma -Acute COPD exacerbation in a ex-smoker, improved -Chronic congestive heart failure from systolic and diastolic dysfunction EF 50- 55% -Moderate tricuspid and severe mitral regurgitation, nontraumatic -Severe secondary pulmonary hypertension secondary to CHF and COPD -Multiple myeloma on chemotherapy -Chronic kidney disease secondary to multiple myeloma stage IV and chronic interstitial nephropathy -Essential hypertension -Hyperlipidemia -Severe protein calorie malnutrition due to poor oral intake. BMI 14.4 -Chronic medical debility -Multiple old rib fractures due to multiple myeloma -Acute GI bleed dropping hemoglobin down to 6.-Received total of 3 units of blood, endoscopy deferred for now. -Acute hypoxic respiratory failure-worsening overnight-intubated on the ventilator March 14-extubated March 19. Currently on 4 L nasal cannula -Hypotensive status post levo fed -Acute kidney injury possibly combination of ATN and prerenal-improved -Full code Plan: Continue IV Anidulafungin, eliquis, , oral prednisone, IV vancomycin, valacyclovir. CODE STATUS addressed with the patient. Wishes to remain full code.
[2020-03-29 20:12] LABS: Glucose,Whole Blood 132 mg/dL (75-99)
[2020-03-29] MEDS: LATANOPROST 0.005% OPHTH DROPS 2.5 ML BTL BOTH EYES SCH (21:28)
[2020-03-30] MEDS: SODIUM CHLORIDE 0.9% 1,000 ML IV SCH (04:27)
[2020-03-30 06:20] LABS: Glucose,Whole Blood 90 mg/dL (75-99)
[2020-03-30] MEDS: INSULIN ASPART (NovoLOG) 100 UNIT/ML VIAL SQ SCH ×4 (06:31→20:31)
--- NOTE | 2020-03-30 07:25 | XR ---
EXAMINATION TYPE: XR chest 1V portable DATE OF EXAM: 03/30/2020 Comparison: 03/28/2020 Clinical History: 69-year-old female RUL pneumonia Findings: Heart upper limits of normal in size. Hyperinflation. Mild interstitial change. Continued consolidati on throughout the right lung with underlying cavitary change. The overall density in the right upper lobe seems to be minimally increased. Bilateral sclerotic rib fracture deformities redemonstrated. No significant change. Impression: 1. COPD with stable residual interstitial changes bilaterally. 2. Consolidation throughout the right upper lobe with underlying cavitary change. The consolidation s eems to be slightly increasing. 3. Bilateral sclerotic rib fracture deformities redemonstrated.
[2020-03-30] MEDS: IPRATROPIUM-ALBUTEROL 3 ML NEB INHALATION SCH ×4 (08:44→20:31)
[2020-03-30] MEDS: PANTOPRAZOLE 40 MG TABLET PO SCH ×3 (08:57→20:43)
[2020-03-30] MEDS: ANIDULAFUNGIN 100 MG in SODIUM CHLORIDE 0.9% 100 ML IVPB SCH (09:09)
[2020-03-30] MEDS: APIXABAN 2.5 MG TABLET PO SCH ×2 (09:11→20:44)
[2020-03-30] MEDS: ACETAMINOPHEN TAB 325 MG TAB PO PRN (09:11)
[2020-03-30] MEDS: predniSONE 10 MG TAB PO SCH (09:11)
[2020-03-30] MEDS: SODIUM BICARBONATE TAB 650 MG TAB PO SCH ×2 (09:11→20:43)
[2020-03-30] MEDS: FUROSEMIDE 40 MG TAB PO SCH (09:11)
[2020-03-30 11:36] LABS: Glucose,Whole Blood 113 mg/dL (75-99)
[2020-03-30] MEDS: CALCIUM CARB-VIT D 500 MG-5 MCG TAB PO SCH (12:31)
[2020-03-30] MEDS: SERTRALINE 100 MG TAB PO SCH (12:31)
[2020-03-30] MEDS: METOPROLOL TARTRATE 25 MG TAB PO SCH ×2 (12:31→20:43)
[2020-03-30 13:16] VITALS: BMI 16.0
[2020-03-30] MEDS ORDERED: VANCOMYCIN TROUGH DUE 1 EACH MISC MISCELLANE ONE (14:00)
[2020-03-30] MEDS ORDERED: VANCOMYCIN 750 MG in SODIUM CHLORIDE 0.9% 250 ML IVPB SCH (15:00)
--- NOTE | 2020-03-30 15:02 | P.PN ---
Subjective Progress Note Date: 03/30/20 Principal diagnosis: Acute hypoxic respiratory failure secondary to acute right upper lobe pneumonia secondary to MRSA. This a very pleasant 69-year-old female patient who follows with Dr. Villalobos as her primary care provider. She has a history of atrial fibrillation/flutter, c ongestive heart failure, chronic obstructive pulmonary disease with chronic hypoxic respiratory failure, CVA/TIA, hypertension, hyperlipidemia, rheumatoid arthritis, COPD with previous chronic tobacco dependence. She also has a history of multiple myeloma and is currently on Revlimid. She follows with Dr. Larson in this regard. She presented here to the emergency room early this morning with a 2-3 day history of increasing shortness of breath cough congestion chest tightness in the right upper chest and wheezing. No fever, chills or night sweats. No nausea vomiting or diarrhea. CoVID 19 not detected. Chest x-ray reveals evidence of a right upper lobe pneumonia. She was initiated on Rocephin and Zithromax and admitted for the same. She was also found to be in atrial flutter with a rapid ventricular response and started on Cardizem drip at 5 mg per hour. She has 0.9 normal saline at 130 ML's per hour. Her lactic acid initially was for currently down to 0.8. She is maintaining O2 saturations up to 100% on 2 L/m per nasal cannula. White count 14.0. Hemoglobin 8.1. Platelet count 134. D-dimer 1.61. Sodium 139. Potassium 4.2. Bicarb 18. Creatinine 2.64. Glucose 188. Troponin 0.014. ProBNP 2540. VQ scan pending. She is seen this morning in consultation on the selective care unit. She is currently resting flat in bed. Awake and alert in no acute distress. Feeling a bit better today compared to yesterday. Still with a loose nonproductive cough. Remains afebrile. Heart rate better controlled currently in sinus rhythm. Hemodynamically stable. The patient is seen today 03/11/2019 in follow-up on the selective care unit. He is currently sitting up in bed. Awake and alert in no acute distress. She was found to be quite anemic as morning with a hemoglobin of 6.3. Eliquis on hold. White count 9.9. Sodium 144. Potassium 5.0. Creatinine 1.56. Pro- calcitonin 1.34. Chest x-ray reveals chronic emphysematous changes with persistent right upper lung pneumonia consolidation. Right infrahilar and left basilar acute infiltrates are present. She is continued on aztreonam, azithromycin. Reevaluated today on 03/12/2020, patient developed worsening shortness of breath this morning, she had to be placed on a nonrebreather mask, and I have made arrangements for the patient to transfer to the ICU. Chest x-ray is showing showing worsening right upper lobe pneumonia, her ABG is marginal, and I went ahead and canceled the plans for bronchoscopy and biopsy of the right upper lobe. In the meantime I have changed her antibiotics and went to full anti biotics coverage including Merrem and vancomycin, and again I counseled the bronchoscopy for today. I have explained to the patient that if I were to proceed with bronchoscopy, she would likely end up on mechanical ventilation, and would be difficult to extubate post bronchoscopy considering her worsening status today. The plan is to do bronchoscopy if her condition worsens and ends up on mechanical ventilation. Patient seems to be quite agreeable to this approach. WBC count today is up to 23.4 hemoglobin is 9.2. ABG showed a pO2 of 91 pCO2 of 28 pH of 7.38 electrolytes are normal however her bicarb is 15. Renal profile showed a BUN of 31 creatinine 1.52. The patient was reevaluated today on 03/13/2020, remains in the ICU, patient is now on 12 L high flow nasal cannula, O2 saturation is 95%, LV that she feels a bit better compared to how she felt yesterday. Continues to have cough, but cough is productive with brownish phlegm. Chest x-ray in slightly improved, patient is now on vancomycin and Merrem. Cultures so far remain nondiagnostic. Recommended sputum cultures, and the are pending. Patient remains extremely marginal and high risk for bronchoscopy without having to intubate the patient. Hence I would hold on the bronchoscopy plans for now. IV fluid is at 100 mL per hour. WBC count is improving down to 15.4 from 23.4. Renal functioning is improving, BUN is 56 creatinine is down to 1.48. Patient was reevaluated today on 03/14/2020, patient had a significant de terioration in her overall status overnight, continued to have intermittent episodes of desaturations, anxiety and shortness of breath, hence I was notified about this patient early this morning, and clearly noted that the patient is showing worsening pulmonary status, worsening oxygenation, and worsening chest x-ray. I recommended immediate intubation of the patient, recommended placing the patient on Lasix 40 mg IV push, also recommended bicarb and a bicarb drip. Patient was intubated, placed on assist control rate of 24, volume of 350 FiO2 of 100% and PEEP at 8. Later her FiO2 was decreased down to 70%, ABG showed a pO2 of 85 pCO2 of 43 pH of 7.14. Her IV fluid is at KVO, her bicarb drip is at 50 ML per hour, and again she received 1 dose of Lasix for what seems to be worsening pulmonary edema, I suspect we are dealing with some component of acute diastolic congestive heart failure or ARDS picture/noncardiogenic pulmonary edema. I am suspecting this is cardiogenic in nature, and will likely improve with diuretics. Patient remains clinically marginal to undergo safe bronchosc opy and BAL at this point. Hence I would wait for the next 24 hours before performing bronchoscopy on this patient. Repeat ABG later showed a pO2 of 114 pCO2 of 40 0 pH of 7.5. Her CBC showed WBC count of 12.3 hemoglobin of 7.4. Elective lites are normal except bicarb is 17 BUN is 39 creatinine is down to 1.43 Reevaluated today on 03/15/2020, patient remains in the ICU, intubated and mechanically ventilated. She is now on assist control rate of 24. Tidal volume is 350 FiO2 50% and PEEP is 8 and I cut it down to 5. ABG showed a pO2 of 96 pCO2 of 39 pH of 7.30. Patient remains on broad-spectrum antibiotics, on bicarb drip at 50 ML's hour, she is on propofol at 75 mcg/kg/m, she is also on enteral feeding, adequate remains on hold, hemoglobin today is 5.9, 2 units of blood were ordered to be transfused today. Chest x-ray slight improvement noted in the right upper lobe consolidation, continues to have mild interstitial edema, hence Lasix was ordered 40 mg IV push every 12 hours. Patient is obviously not ready to be weaned or extubated. Has a long way to go. And considering her slight improvement in her right upper lobe consolidation, I would hold on bronchoscopy and BAL of the right upper lobe. 03/29/2020, the patient remains extubated on 2 L of oxygen by nasal cannula. Yesterday she was in the intensive care unit. She was quite stable. She was diuresed adequately. Based on that, I transferred out of the intensive care unit. She is in a negative fluid balance as the patient is receiving Lasix 40 mg IV push every 12 hours. The fluid balance over the past 24 hours remains essentially negative. She has produced another 3.7 L of negativity in terms of her fluid balance over the past 24 hours. The chest x-ray from yesterday showed persistent infiltration of the right upper lobe and there is some increased interstitial markings bilaterally. The patient otherwise is receiving Lasix. She is on Lasix 40 mg every 12 hours is also being covered with broad-spectrum antibiotics regarding MRSA pneumonia. Note that on 2 separate occasions, she control Nicolle in her bronchioloalveolar lavage and she was placed on Eraxis. MRSA was also present in the bronchioloalveolar lavage and the patient is currently on vancomycin. Her blood work from today shows a stable hemoglobin of 8.6. The creatinine today is at 1.26 which is also stable compared to yesterday . She has developed some mild metabolic acidosis with a bicarb level of 29. BUN is at 37. She has COPD patient using incentive spirometer. She is quite frail. Her body mass index is at 16.1. Overall, she is quite debilitated. She is currently on a medical floor. Reevaluated today on 03/30/2020, patient is on the regular medical floor, she is on 3 L nasal cannula, and her O2 saturation is in the mid 90s. Few days ago, patient was in the ICU for her hypoxic referred failure secondary to pneumonia and she was eventually extubated. Patient remains on Lasix at 40 mg IV push every 12 hours, she has negative fluid balance, seems to be quite comfortable, her cultures from the BAL showed MRSA infection so most likely her pneumonia secondary to MRSA. CBC today is relatively unremarkable electrolytes are normal BUN is 37 creatinine is 1.26. Chest x-ray continues to show evidence of conso lidation with possible cavitary change in the right upper lobe, and she has bilateral sclerotic rib fractures/deformities redemonstrated. She does have residual interstitial changes bilaterally patient remains on vancomycin, she remains on Eraxis, she is also on prednisone at 30 mg daily. She is also on Lasix at 40 mg by mouth daily. Remains on bicarbonate for her underlying renal failure. Objective - Vital Signs Vital signs: Vital Signs Temp 98.3 F 03/30/20 08:00 Pulse 78 03/30/20 11:32 Resp 16 03/30/20 11:32 BP 149/74 03/30/20 08:00 Pulse Ox 97 03/30/20 08:00 Intake & Output 03/29/20 03/30/20 03/30/20 18:59 06:59 18:59 Intake Total 240 90 250 Output Total 2125 850 750 Balance -7195 -760 -500 Weight 42.5 kg 42.5 kg Intake: Oral 240 90 250 Output: Urine 1125 850 750 Stool 1000 Other: Voiding Method Indwelling Catheter Indwelling Catheter Indwelling Catheter ABP, PAP, CO, CI - Last Documented Arterial Blood Pressure 146/53 - Exam GENERAL EXAM: Revealed a 61-year-old female, on 3 L nasal cannula, in no distress. Head: Atraumatic, normocephalic ENT: PERRLA, EOMI, nonicteric, no neck masses, no JVD, no stridor. CHEST: No chest wall deformity. Symmetrical expansion. LUNGS: Crackles and persist bilaterally. No rhonchi and no wheezes. CVS: Regular rate and rhythm, normal S1 and S2, no gallops, no murmurs, no rubs ABDOMEN: Soft, nontender. No hepatosplenomegaly, normal bowel sounds, no guarding or rigidity. EXTREMITIES: No clubbing, no edema, no cyanosis, 2+ pulses and upper and lower extremities. MUSCULOSKELETAL: Muscle strength and tone normal. SPINE: No scoliosis or deformity SKIN: No rashes CENTRAL NERVOUS SYSTEM: Alert and oriented 3 focal deficits. PSYCHIATRIC: Normal mood, affect and normal mental status examination - Labs CBC & Chem 7: 03/29/20 05:43 03/29/20 05:43 Labs: Abnormal Lab Results - Last 24 Hours (Table) 03/29/20 03/29/20 03/30/20 Range/Units 16:59 20:11 11:35 POC Glucose (mg/dL) 125 H 132 H 113 H (75-99) mg/dL Microbiology - Last 24 Hours (Table) 03/23/20 09:22 Blood Culture - Final Blood No Growth after 144 hours Assessment and Plan Assessment: Impression: Acute hypoxic respiratory failure secondary to MRSA pneumonia involving mostly the right upper lobe requiring intubation and mechanical ventilation, extubated on 03/25/2020, and so far remains extubated. Multiple myeloma, presently on Revlimid. History of chronic obstructive pulmonary disease and tobacco dependence syndrome. Acute on chronic kidney disease. Stage III. Chronic diastolic congestive heart failure Paroxysmal atrial fibrillation. Remains on Lasix. Previous history of CVA. Benign essential hypertension. Dyslipidemia. Generalized anxiety disorder. Thrombocytopenia, being addressed by oncology. Recommendation: Continue present treatment with antibiotics and antifungal therapy. Continue diuretics/Lasix 40 mg by mouth daily May have to increase the dose. Continue bronchodilators. Continue all her questions. Continue GI and DVT prophylaxis. Continue to monitor daily x-rays of the chest. Continue prednisone. Continue aspiration precautions. Continue to monitor platelets. Continue to monitor renal profile. Overall long-term prognosis remains extremely poor and guarded, we'll continue to follow. Time with Patient: Less than 30
[2020-03-30] MEDS: VANCOMYCIN 750 MG in SODIUM CHLORIDE 0.9% 250 ML IVPB SCH (15:13)
[2020-03-30 17:02] LABS: Glucose,Whole Blood 167 mg/dL (75-99)
--- NOTE | 2020-03-30 18:56 | P.PN ---
Progress Note - Text Progress Note Date: 03/30/20 Presenting complaint: Tired Interval history: This is a very pleasant 69-year-old patient of Dr. Villalobos. Chronic stable medical conditions include paroxysmal atrial flutter fibrillation, , CHF with an EF of 50-55%, tricuspid and mitral regurgitation, secondary pulmonary hypertension, chronic kidney disease stage IV, hypertension, hyperlipidemia,. Patient also being treated for multiple myeloma. on REVLIMID Patient presented with shortness of breath confusion cough congestion. Admitted with right upper lobe pneumonia, acute delirium. Started on IV aztreonam and azithromycin. Developed black tarry stools. Dropped hemoglobin. 1 unit of blood given. Patient desaturated. Moved to the ICU on March 11. Intubated March 14-placed on IV levo fed propofol antibiotics changed to IV meropenem. bronchoscopy done by Dr. Hart[March 16]-thick philomena, secretions obtained. Extubated March 19. Patient had to be reintubated. Patient underwent repeat bronchoscopy on March 23. Extubated March 25. Today-patient had 100% of her lunch. Breathing better. In bed. Seen by physic al therapy-total assist Review of systems: Attempted for constitutional, cardiovascular, GI, pulmonary. relevant finding as above Active Medications Acetaminophen (Acetaminophen Tab 325 Mg Tab) 650 mg PO Q4HR PRN PRN Reason: Fever and/ or Pain Last Admin: 03/30/20 09:11 Dose: 650 mg Documented by: Albuterol/Ipratropium (Ipratropium-Albuterol 3 Ml Neb) 3 ml INHALATION RT-QID [facility] Last Admin: 03/30/20 15:32 Dose: Not Given Documented by: Apixaban (Apixaban 2.5 Mg Tablet) 2.5 mg PO BID [facility] Last Admin: 03/30/20 09:11 Dose: 2.5 mg Documented by: Calcitriol (Calcitriol 0.25 Mcg Cap) 0.25 mcg PO PC-LUNCH [facility] Last Admin: 03/30/20 12:31 Dose: 0.25 mcg Documented by: Calcium Carbonate (Calcium Carb-Vit D 500mg-200un 1 Each Tab) 2 each PO DAILY@1200 [facility] Last Admin: 03/30/20 12:31 Dose: 2 each Documented by: Furosemide (Furosemide 40 Mg Tab) 40 mg PO DAILY [facility] Last Admin: 03/30/20 09:11 Dose: 40 mg Documented by: Hydralazine HCl (Hydralazine Hcl 20 Mg/Ml 1 Ml Vial) 10 mg IVP Q6HR PRN PRN Reason: Blood Pressure - High Last Admin: 03/27/20 03:26 Dose: 10 mg Documented by: Sodium Chloride (Saline 0.9%) 1,000 mls @ 20 mls/hr IV .Q24H [facility] Last Admin: 03/30/20 04:27 Dose: 20 mls/hr Documented by: Anidulafungin 100 mg/ Sodium (Chloride) 130 mls @ 84 mls/hr IVPB DAILY [facility] Last Admin: 03/30/20 09:09 Dose: 84 mls/hr Documented by: Vancomycin HCl 750 mg/ Sodium (Chloride) 250 mls @ 125 mls/hr IVPB Q36H [facility] Last Admin: 03/30/20 15:07 Dose: 125 mls/hr Documented by: Insulin Aspart (Insulin Aspart (Novolog) 100 Unit/Ml Vial) 0 unit SQ ACHS [facility]; Protocol Last Admin: 03/30/20 17:04 Dose: 2 unit Documented by: Latanoprost (Latanoprost 0.005% Ophth Drops 2.5 Ml Btl) 1 drops BOTH EYES HS [facility] Last Admin: 03/29/20 21:28 Dose: 1 drops Documented by: Metoprolol Tartrate (Metoprolol Tartrate 25 Mg Tab) 25 mg PO BID@1200,2100 [facility] Last Admin: 03/30/20 12:31 Dose: 25 mg Documented by: Miscellaneous Information (Pneumonia Protocol Utilized 1 Each Mis) 1 each PO ONCE PRN PRN Reason: Per Protocol Miscellaneous Information (Potassium Replacement Protocol 1 Each Mis) 1 each MISCELLANE DAILY PRN; Protocol PRN Reason: Per Protocol Pantoprazole Sodium (Pantoprazole 40 Mg Tablet) 40 mg PO BID [facility] Last Admin: 03/30/20 09:11 Dose: 40 mg Documented by: Prednisone (Prednisone 10 Mg Tab) 30 mg PO DAILY [facility] Last Admin: 03/30/20 09:11 Dose: 30 mg Documented by: Sertraline HCl (Sertraline 100 Mg Tab) 200 mg PO PC-LUNCH [facility] Last Admin: 03/30/20 12:31 Dose: 200 mg Documented by: Sodium Bicarbonate (Sodium Bicarbonate Tab 650 Mg Tab) 650 mg PO BID [facility] Last Admin: 03/30/20 09:11 Dose: 650 mg Documented by: Physical examination: VITAL SIGNS: 97, 89, 20, 140/78, 98% on 3 L GENERAL: Sitting up in bed, comfortable. EYES: Pupils equal. Conjunctiva pale HEENT: Dry lips. NECK: JVD not raised; masses not palpable. HEART: First and second heart sounds are normal; no edema. LUNGS: Respiratory rate increased, decreased breath sounds ABDOMEN: Soft, nontender, liver spleen not palpable, no masses palpable. PSYCH: AO - times three. Mood and affect more cheerful today MUSCULOSKELETAL: Diffuse wasting of muscles Investigations, reviewed in the clinical context: March 29: White count 5.7 hemoglobin 8.6 platelets 49 potassium 3.7 creatinine 1.26 March 28: White count 5.9 hemoglobin 8.5 platelets 53 potassium 3.6 bun 40 creatinine 1.25 March 27: Sodium 148 potassium 4 creatinine 1.16 March 26: White count 5.3 hemoglobin 9.2 platelets 63 potassium 4.3 creatinine 1.11 March 25: White count 4.3 hemoglobin 8.1 platelet 61 potassium 3.5 bun 49 creatinine 1.21 March 19: White count 9.5 hemoglobin 10.8 platelets 40 potassium 3.9 bun 66 creatinine 1.7 to March 18: White count 9.1 hemoglobin 10.2 potassium 3.7 bun 62 creatinine 1.83 Chest x-ray film personally reviewed by me-infiltrate clearing March 16: White count 9.3 hemoglobin 10 platelets 46 potassium 4.2 BUN 50 creatinine 1.88 March 15: White count 7.4 hemoglobin 5.9 platelets 50 BUN 38 creatinine 1.5 for March 14: White count 12.3 hemoglobin 7.4 potassium 4.8 bun 39 creatinine 1.43. ABG show pH of 7.15 March 13: White count 15.4 hemoglobin 8.7 platelets 91 bun 36 creatinine 1.48 March 12: White count 23.4 hemoglobin 9.2 platelets 113. Check stat x-ray film-right upper lobe dense infiltrate March 11: White count 9.2 hemoglobin 6 platelets 86potassium 5 creatinine 1.56 pro-calcitonin 1.34 Pro-calcitonin 1.84 White count 14 hemoglobin 8.1 platelets 134 potassium 4.2 BUN 47 creatinine 2.64 Lactic acid 4.9 Coronavirus P/Cr-not detected VQ scan-low probability for PE EKG tracing personally reviewed by me-normal sinus rhythm some ST segment changes Chest [id number]-uie-dsvvxs infiltrate throughout the right upper lobe and the superior segment of the right lower lobe Iavvkvjmxxge-nbhenpis-Fyipfvk albicans Sputum-Nicolle albicans Bronchial washing culture from March 23-MRSA Assessment: -Right upper lobe pneumonia, MRSA in an immunosuppressed patient, , POA,- -Paroxysmal atrial flutter and fibrillation-with rapid ventricular rate then went back into sinus rhythm -Anemia multifactorial including that of chronic disease including multiple myeloma -Acute COPD exacerbation in a ex-smoker, improved -Chronic congestive heart failure from systolic and diastolic dysfunction EF 50- 55% -Moderate tricuspid and severe mitral regurgitation, nontraumatic -Severe secondary pulmonary hypertension secondary to CHF and COPD -Multiple myeloma on chemotherapy -Chronic kidney disease secondary to multiple myeloma stage IV and chronic interstitial nephropathy -Essential hypertension -Hyperlipidemia -Severe protein calorie malnutrition due to poor oral intake. BMI 14.4 -Chronic medical debility -Multiple old rib fractures due to multiple myeloma -Acute GI bleed dropping hemoglobin down to 6.-Received total of 3 units of blood, endoscopy deferred for now. -Acute hypoxic respiratory failure-worsening overnight-intubated on the ventilator March 14-extubated March 19. Currently on 4 L nasal cannula -Hypotensive status post levo fed -Acute kidney injury possibly combination of ATN and prerenal-improved -Full code Plan: Continue IV Anidulafungin, eliquis, , oral prednisone, IV vancomycin, valacyclovir. Discussed with dietitian. Patient's oral intake is improving. She had 100% of her lunch. Also discussed with and from speech therapist. She is advancing her diet. Total time spent today about 40 minutes with over 20 minutes of discussion. We will discuss discharge antibiotics per Dr. Sánchez. Possible DC ECF tomorrow.
[2020-03-30 20:03] LABS: Glucose,Whole Blood 129 mg/dL (75-99)
[2020-03-30] MEDS: LATANOPROST 0.005% OPHTH DROPS 2.5 ML BTL BOTH EYES SCH (20:55)
--- NOTE | 2020-03-30 21:19 | P.PN ---
Subjective Progress Note Date: 03/30/20 Principal diagnosis: Multiple Myeloma and Respiratory Failure She appears comfortable during follow-up today. No acute changes. 3L Nasal canula, afebrile. Objective - Vital Signs Vital signs: Vital Signs Temp 98.1 F 03/30/20 16:00 Pulse 72 03/30/20 20:45 Resp 18 03/30/20 16:00 BP 163/70 03/30/20 16:00 Pulse Ox 95 03/30/20 16:00 Intake & Output 03/30/20 03/30/20 03/31/20 06:59 18:59 06:59 Intake Total 90 500 Output Total 850 1100 Balance -760 -600 Weight 42.5 kg 42.5 kg Intake: Oral 90 500 Output: Urine 850 1100 Other: Voiding Method Indwelling Catheter Indwelling Catheter # Bowel Movements 1 ABP, PAP, CO, CI - Last Documented Arterial Blood Pressure 146/53 - Exam - Constitutional General appearance: Present: cooperative, no acute distress, thin - EENT EENT Comment(s): dry mucus membranes, dry cracked, chapped lips Eyes: Present: anicteric sclerae, EOMI ENT: Present: hearing grossly normal - Respiratory Respiratory: left: rales (anterior, expiratory), bilateral: diminished - Cardiovascular Rhythm: regular Heart sounds: normal: S1, S2 Abnormal Heart Sounds: Absent: systolic murmur, diastolic murmur, rub, S3 Gallop, S4 Gallop, click, other - Peripheral edema foot Peripheral Edema: bilateral: Trace - Gastrointestinal General gastrointestinal: Present: normal bowel sounds, soft. Absent: absent bowel sounds, decreased bowel sounds, distended, hepatomegaly, hyperactive bowel sounds, organomegaly, rigid, scaphoid, splenomegaly, tenderness, umbilical hernia, ventral hernia - Neurologic Neurologic: Present: CNII-XII intact - Musculoskeletal Musculoskeletal: Present: generalized weakness - Psychiatric Psychiatric: Present: A&O x's 3, appropriate affect, intact judgment & insight - Labs CBC & Chem 7: 03/29/20 05:43 03/29/20 05:43 Labs: Abnormal Lab Results - Last 24 Hours (Table) 03/30/20 03/30/20 03/30/20 Range/Units 11:35 17:01 20:02 POC Glucose (mg/dL) 113 H 167 H 129 H (75-99) mg/dL Assessment and Plan (1) Atrial flutter with rapid ventricular response Narrative/Plan: Cardiology Following regular rate, improving Current Visit: Yes Status: Acute Code(s): I48.92 - UNSPECIFIED ATRIAL FLUTTER SNOMED Code(s): 1694872 (2) Chronic kidney disease Narrative/Plan: Nephrology Following Stable, Creat 1.5 today Current Visit: Yes Status: Chronic Code(s): N18.9 - CHRONIC KIDNEY DISEASE, UNSPECIFIED SNOMED Code(s): 045624113 (3) Acute exacerbation of chronic obstructive airways disease Narrative/Plan: Management per ICU and Pulm Extubated and on room air Treatment for pneumonia Current Visit: No Status: Acute Code(s): J44.1 - CHRONIC OBSTRUCTIVE PULMONARY DISEASE W (ACUTE) EXACERBATION SNOMED Code(s): 859312200 (4) Multiple myeloma not having achieved remission Narrative/Plan: Continue to Hold Revlimid with Cytopenias at this time Will anticipate 3-4 week hold for recovery of this hospitalization and can follow-up with Dr. Larson as outpatient at that time. She has been instructed to not resume until re-evaluation as outpatient Current Visit: No Status: Chronic Priority: Medium Code(s): C90.00 - MULTIPLE MYELOMA NOT HAVING ACHIEVED REMISSION SNOMED Code(s): 318641229 (5) Pancytopenia Narrative/Plan: Secondary to Chronic disease, acute on chronic infectious/inflammatory response, Multiple myeloma, and chemotherapy Continue to hold Revlamid for now Transfuse hemoglobin less than 7 PLease check Daily CBC, will order for am Current Visit: No Status: Chronic Priority: Medium Code(s): D61.818 - OTHER PANCYTOPENIA SNOMED Code(s): 776277131 Plan: Assessment and Plan [place] Multiple myeloma not having achieved remission - Treatment continues to remain on hold (Revlimid) with Cytopenias and acute illness - Will anticipate another 2-3 week hold for recovery of this hospitalization and can follow-up with Dr. Larson as outpatient at that time. - She has been instructed to not resume until re-evaluation as outpatient - Her most recent M-spike was 0.19g/dl, stable. Pancytopenia - Secondary to Chronic disease, acute on chronic infectious/inflammatory response, Multiple myeloma, and chemotherapy - Continue to hold Revlamid for now - Transfuse hemoglobin less than 7, stable today, no transfusion required - Platelets recovering and anticoagulation has resumed Hypogammaglobulinemia due to multiple myeloma - Status Post IVIG on 03/20/2020 for IgG of 489 and severe acute illness Atrial flutter with rapid ventricular response - Cardiology Following - regular rate, improving - Eliquis continued, although if platelts drop below 50K will hold. - MONITOR daily CBC Chronic kidney disease - Nephrology Following - Stable as of yesterday - Recheck in am Acute exacerbation of chronic obstructive airways disease - Resolved, Extubated - Continued slow improvement - S/P bronch with washings, neg for malignancy - S/P EGD with biopsy, negative path Our team has discussed CPR and intubation, as well as, code status. Overall prognosis is guarded and goals of care being of no extreme lifesaving intervention is reasonable. COntinue daily CBC and BMP monitoring
--- NOTE | 2020-03-30 22:37 | PN ---
PROGRESS NOTE DATE OF SERVICE: 03/30/2020 REASON FOR FOLLOWUP: Pneumonia. INTERVAL HISTORY: The patient is currently afebrile. The patient is breathing comfortably. Denies having any chest pain or shortness of breath. Minimal cough. No abdominal pain or diarrhea. PHYSICAL EXAMINATION: Her blood pressure is 163/70 with a pulse of 84, temperature 98.1. She is 95% on 3 L nasal cannula. General description is an elderly female lying in bed in no distress. RESPIRATORY SYSTEM: Unlabored breathing with decreased breath sounds at the base. No wheeze. HEART: S1, S2. Regular rate and rhythm. ABDOMEN: Soft. No tenderness. LABS: Repeat blood cultures are negative. DIAGNOSTIC IMPRESSION AND PLAN: Patient with methicillin-resistant Staphylococcus aeruginosa, covered with vancomycin. Dose should be adjusted down to keep the trough around 15. Kidney function needs to be monitored closely. Recommended a week of IV vancomycin to finish her course of therapy. Continue with supportive care. MMODL / IJN: [id number] /
[2020-03-31] MEDS: SODIUM CHLORIDE 0.9% 1,000 ML IV SCH (03:55)
[2020-03-31 06:17] LABS: Glucose,Whole Blood 88 mg/dL (75-99)
[2020-03-31] MEDS: INSULIN ASPART (NovoLOG) 100 UNIT/ML VIAL SQ SCH ×2 (06:21→17:37)
[2020-03-31 07:35] LABS: Anisocytosis Slight; Basophils % (A) 0 %; Eosinophils % (A) 1 %; HCT 25.2 % (34.0-46.0); HGB 8.3 gm/dL (11.4-16.0); Hypochromasia Moderate; Lymphocytes # (A) 0.3 k/uL (1.0-4.8); Lymphocytes % (A) 6 %; MCH 31.5 pg (25.0-35.0); MCHC 32.8 g/dL (31.0-37.0); MCV 96.1 fL (80.0-100.0); Macrocytosis Slight; Mean Platelet Volume 9.4; Monocytes # (A) 0.3 k/uL (0-1.0); Monocytes % (A) 6 %; Neutrophils % (A) 86 %; RBC 2.62 m/uL (3.80-5.40); RDW 19.9 % (11.5-15.5); WBC 4.7 k/uL (3.8-10.6)
[2020-03-31 07:38] LABS: Platelet Count 36 k/uL (150-450)
[2020-03-31 07:52] LABS: Albumin 2.5 g/dL (3.5-5.0); Calcium 7.1 mg/dL (8.4-10.2); Potassium 3.2 mmol/L (3.5-5.1); Total Bilirubin 0.7 mg/dL (0.2-1.3); Total Protein 4.9 g/dL (6.3-8.2)
[2020-03-31 08:18] VITALS: RESP 18
[2020-03-31] MEDS: IPRATROPIUM-ALBUTEROL 3 ML NEB INHALATION SCH ×4 (08:18→20:27)
[2020-03-31] MEDS: ANIDULAFUNGIN 100 MG in SODIUM CHLORIDE 0.9% 100 ML IVPB SCH (10:07)
[2020-03-31] MEDS: APIXABAN 2.5 MG TABLET PO SCH ×2 (10:08→18:26)
[2020-03-31] MEDS: PANTOPRAZOLE 40 MG TABLET PO SCH ×2 (10:09→18:26)
[2020-03-31] MEDS: FUROSEMIDE 40 MG TAB PO SCH (10:09)
[2020-03-31] MEDS: predniSONE 10 MG TAB PO SCH (10:10)
[2020-03-31] MEDS: POTASSIUM CHLORIDE ER 20 MEQ TAB.ER PO SCH ×2 (10:10→12:21)
[2020-03-31] MEDS: SODIUM BICARBONATE TAB 650 MG TAB PO SCH ×2 (10:12→18:26)
[2020-03-31 11:38] LABS: Glucose,Whole Blood 116 mg/dL (75-99)
[2020-03-31 12:09] VITALS: TEMP 97.5
[2020-03-31] MEDS: METOPROLOL TARTRATE 25 MG TAB PO SCH ×2 (12:21→18:26)
[2020-03-31] MEDS: CALCIUM CARB-VIT D 500 MG-5 MCG TAB PO SCH (12:21)
[2020-03-31] MEDS: SERTRALINE 100 MG TAB PO SCH (12:21)
--- NOTE | 2020-03-31 13:53 | FL ---
Modified barium swallow. HISTORY: Dysphagia. Modified barium swallow was performed with the department of speech pathology. The patient was prese nted with various consistencies of barium. There is no evidence for aspiration. Transient deep penetration noted with thin liquid barium. Full r eport is to follow from the department of speech pathology. Impression: Transient deep penetration noted with thin liquid barium.
--- NOTE | 2020-03-31 15:57 | P.PN ---
Subjective Progress Note Date: 03/31/20 Principal diagnosis: Acute hypoxic respiratory failure secondary to acute right upper lobe pneumonia secondary to MRSA. This a very pleasant 69-year-old female patient who follows with Dr. Villalobos as her primary care provider. She has a history of atrial fibrillation/flutter, c ongestive heart failure, chronic obstructive pulmonary disease with chronic hypoxic respiratory failure, CVA/TIA, hypertension, hyperlipidemia, rheumatoid arthritis, COPD with previous chronic tobacco dependence. She also has a history of multiple myeloma and is currently on Revlimid. She follows with Dr. Larson in this regard. She presented here to the emergency room early this morning with a 2-3 day history of increasing shortness of breath cough congestion chest tightness in the right upper chest and wheezing. No fever, chills or night sweats. No nausea vomiting or diarrhea. CoVID 19 not detected. Chest x-ray reveals evidence of a right upper lobe pneumonia. She was initiated on Rocephin and Zithromax and admitted for the same. She was also found to be in atrial flutter with a rapid ventricular response and started on Cardizem drip at 5 mg per hour. She has 0.9 normal saline at 130 ML's per hour. Her lactic acid initially was for currently down to 0.8. She is maintaining O2 saturations up to 100% on 2 L/m per nasal cannula. White count 14.0. Hemoglobin 8.1. Platelet count 134. D-dimer 1.61. Sodium 139. Potassium 4.2. Bicarb 18. Creatinine 2.64. Glucose 188. Troponin 0.014. ProBNP 2540. VQ scan pending. She is seen this morning in consultation on the selective care unit. She is currently resting flat in bed. Awake and alert in no acute distress. Feeling a bit better today compared to yesterday. Still with a loose nonproductive cough. Remains afebrile. Heart rate better controlled currently in sinus rhythm. Hemodynamically stable. The patient is seen today 03/11/2019 in follow-up on the selective care unit. He is currently sitting up in bed. Awake and alert in no acute distress. She was found to be quite anemic as morning with a hemoglobin of 6.3. Eliquis on hold. White count 9.9. Sodium 144. Potassium 5.0. Creatinine 1.56. Pro- calcitonin 1.34. Chest x-ray reveals chronic emphysematous changes with persistent right upper lung pneumonia consolidation. Right infrahilar and left basilar acute infiltrates are present. She is continued on aztreonam, azithromycin. Reevaluated today on 03/12/2020, patient developed worsening shortness of breath this morning, she had to be placed on a nonrebreather mask, and I have made arrangements for the patient to transfer to the ICU. Chest x-ray is showing showing worsening right upper lobe pneumonia, her ABG is marginal, and I went ahead and canceled the plans for bronchoscopy and biopsy of the right upper lobe. In the meantime I have changed her antibiotics and went to full anti biotics coverage including Merrem and vancomycin, and again I counseled the bronchoscopy for today. I have explained to the patient that if I were to proceed with bronchoscopy, she would likely end up on mechanical ventilation, and would be difficult to extubate post bronchoscopy considering her worsening status today. The plan is to do bronchoscopy if her condition worsens and ends up on mechanical ventilation. Patient seems to be quite agreeable to this approach. WBC count today is up to 23.4 hemoglobin is 9.2. ABG showed a pO2 of 91 pCO2 of 28 pH of 7.38 electrolytes are normal however her bicarb is 15. Renal profile showed a BUN of 31 creatinine 1.52. The patient was reevaluated today on 03/13/2020, remains in the ICU, patient is now on 12 L high flow nasal cannula, O2 saturation is 95%, LV that she feels a bit better compared to how she felt yesterday. Continues to have cough, but cough is productive with brownish phlegm. Chest x-ray in slightly improved, patient is now on vancomycin and Merrem. Cultures so far remain nondiagnostic. Recommended sputum cultures, and the are pending. Patient remains extremely marginal and high risk for bronchoscopy without having to intubate the patient. Hence I would hold on the bronchoscopy plans for now. IV fluid is at 100 mL per hour. WBC count is improving down to 15.4 from 23.4. Renal functioning is improving, BUN is 56 creatinine is down to 1.48. Patient was reevaluated today on 03/14/2020, patient had a significant de terioration in her overall status overnight, continued to have intermittent episodes of desaturations, anxiety and shortness of breath, hence I was notified about this patient early this morning, and clearly noted that the patient is showing worsening pulmonary status, worsening oxygenation, and worsening chest x-ray. I recommended immediate intubation of the patient, recommended placing the patient on Lasix 40 mg IV push, also recommended bicarb and a bicarb drip. Patient was intubated, placed on assist control rate of 24, volume of 350 FiO2 of 100% and PEEP at 8. Later her FiO2 was decreased down to 70%, ABG showed a pO2 of 85 pCO2 of 43 pH of 7.14. Her IV fluid is at KVO, her bicarb drip is at 50 ML per hour, and again she received 1 dose of Lasix for what seems to be worsening pulmonary edema, I suspect we are dealing with some component of acute diastolic congestive heart failure or ARDS picture/noncardiogenic pulmonary edema. I am suspecting this is cardiogenic in nature, and will likely improve with diuretics. Patient remains clinically marginal to undergo safe bronchosc opy and BAL at this point. Hence I would wait for the next 24 hours before performing bronchoscopy on this patient. Repeat ABG later showed a pO2 of 114 pCO2 of 40 0 pH of 7.5. Her CBC showed WBC count of 12.3 hemoglobin of 7.4. Elective lites are normal except bicarb is 17 BUN is 39 creatinine is down to 1.43 Reevaluated today on 03/15/2020, patient remains in the ICU, intubated and mechanically ventilated. She is now on assist control rate of 24. Tidal volume is 350 FiO2 50% and PEEP is 8 and I cut it down to 5. ABG showed a pO2 of 96 pCO2 of 39 pH of 7.30. Patient remains on broad-spectrum antibiotics, on bicarb drip at 50 ML's hour, she is on propofol at 75 mcg/kg/m, she is also on enteral feeding, adequate remains on hold, hemoglobin today is 5.9, 2 units of blood were ordered to be transfused today. Chest x-ray slight improvement noted in the right upper lobe consolidation, continues to have mild interstitial edema, hence Lasix was ordered 40 mg IV push every 12 hours. Patient is obviously not ready to be weaned or extubated. Has a long way to go. And considering her slight improvement in her right upper lobe consolidation, I would hold on bronchoscopy and BAL of the right upper lobe. 03/29/2020, the patient remains extubated on 2 L of oxygen by nasal cannula. Yesterday she was in the intensive care unit. She was quite stable. She was diuresed adequately. Based on that, I transferred out of the intensive care unit. She is in a negative fluid balance as the patient is receiving Lasix 40 mg IV push every 12 hours. The fluid balance over the past 24 hours remains essentially negative. She has produced another 3.7 L of negativity in terms of her fluid balance over the past 24 hours. The chest x-ray from yesterday showed persistent infiltration of the right upper lobe and there is some increased interstitial markings bilaterally. The patient otherwise is receiving Lasix. She is on Lasix 40 mg every 12 hours is also being covered with broad-spectrum antibiotics regarding MRSA pneumonia. Note that on 2 separate occasions, she control Nicolle in her bronchioloalveolar lavage and she was placed on Eraxis. MRSA was also present in the bronchioloalveolar lavage and the patient is currently on vancomycin. Her blood work from today shows a stable hemoglobin of 8.6. The creatinine today is at 1.26 which is also stable compared to yesterday . She has developed some mild metabolic acidosis with a bicarb level of 29. BUN is at 37. She has COPD patient using incentive spirometer. She is quite frail. Her body mass index is at 16.1. Overall, she is quite debilitated. She is currently on a medical floor. Reevaluated today on 03/30/2020, patient is on the regular medical floor, she is on 3 L nasal cannula, and her O2 saturation is in the mid 90s. Few days ago, patient was in the ICU for her hypoxic referred failure secondary to pneumonia and she was eventually extubated. Patient remains on Lasix at 40 mg IV push every 12 hours, she has negative fluid balance, seems to be quite comfortable, her cultures from the BAL showed MRSA infection so most likely her pneumonia secondary to MRSA. CBC today is relatively unremarkable electrolytes are normal BUN is 37 creatinine is 1.26. Chest x-ray continues to show evidence of conso lidation with possible cavitary change in the right upper lobe, and she has bilateral sclerotic rib fractures/deformities redemonstrated. She does have residual interstitial changes bilaterally patient remains on vancomycin, she remains on Eraxis, she is also on prednisone at 30 mg daily. She is also on Lasix at 40 mg by mouth daily. Remains on bicarbonate for her underlying renal failure. Reevaluated today on 03/31/2020, patient remains on the regular medical floor, she is on 2L nasal cannula, O2 saturations 97%, patient is feeling better, breathing a lot easier, however she developed some coccygeal ulcer that being addressed by the admitting physician and by infectious disease on the case. Pulmonary-baird, the patient is improving, remains on antibiotics for presumptive MRSA pneumonia. Functioning is improving. WBC count is 4.7 hemoglobin is 8.3 BUN is 29 and creatinine is 1.21. Objective - Vital Signs Vital signs: Vital Signs Temp 97.5 F L 03/31/20 11:59 Pulse 78 03/31/20 12:27 Resp 18 03/31/20 12:27 BP 157/77 03/31/20 11:59 Pulse Ox 97 03/31/20 11:59 Intake & Output 03/30/20 03/31/20 03/31/20 18:59 06:59 18:59 Intake Total 500 500 340 Output Total 8244 721 1064 Balance -600 300 -960 Weight 42.5 kg 42.5 kg Intake: IV 100 Sodium Chloride 0.9% 1, 100 000 ml @ 20 mls/hr IV . Q24H [facility] Rx#:[id number] Oral 500 340 Tube Feeding 400 Output: Urine 1100 200 300 Stool 1000 Other: Voiding Method Indwelling Catheter Indwelling Catheter Indwelling Catheter # Bowel Movements 1 ABP, PAP, CO, CI - Last Documented Arterial Blood Pressure 146/53 - Exam GENERAL EXAM: Revealed a 61-year-old female, on 2 L nasal cannula, in no distress. Head: Atraumatic, normocephalic ENT: PERRLA, EOMI, nonicteric, no neck masses, no JVD, no stridor. CHEST: No chest wall deformity. Symmetrical expansion. LUNGS: Crackles and persist bilaterally. No rhonchi and no wheezes. CVS: Regular rate and rhythm, normal S1 and S2, no gallops, no murmurs, no rubs ABDOMEN: Soft, nontender. No hepatosplenomegaly, normal bowel sounds, no guarding or rigidity. EXTREMITIES: No clubbing, no edema, no cyanosis, 2+ pulses and upper and lower extremities. MUSCULOSKELETAL: Muscle strength and tone normal. SPINE: No scoliosis or deformity SKIN: No rashes CENTRAL NERVOUS SYSTEM: Alert and oriented 3 focal deficits. PSYCHIATRIC: Normal mood, affect and normal mental status examination - Labs CBC & Chem 7: 03/31/20 07:11 03/31/20 07:11 Labs: Abnormal Lab Results - Last 24 Hours (Table) 03/30/20 03/30/20 03/31/20 Range/Units 17:01 20:02 07:11 RBC 2.62 L (3.80-5.40) m/uL Hgb 8.3 L (11.4-16.0) gm/dL Hct 25.2 L (34.0-46.0) % RDW 19.9 H (11.5-15.5) % Plt Count 36 L (150-450) k/uL Lymphocytes # 0.3 L (1.0-4.8) k/uL Potassium (3.5-5.1) mmol/L Chloride (98-107) mmol/L BUN (7-17) mg/dL Creatinine (0.52-1.04) mg/dL POC Glucose (mg/dL) 167 H 129 H (75-99) mg/dL Calcium (8.4-10.2) mg/dL AST (14-36) U/L Total Protein (6.3-8.2) g/dL Albumin (3.5-5.0) g/dL 03/31/20 03/31/20 Range/Units 07:11 11:36 RBC (3.80-5.40) m/uL Hgb (11.4-16.0) gm/dL Hct (34.0-46.0) % RDW (11.5-15.5) % Plt Count (150-450) k/uL Lymphocytes # (1.0-4.8) k/uL Potassium 3.2 L (3.5-5.1) mmol/L Chloride 112 H (98-107) mmol/L BUN 29 H (7-17) mg/dL Creatinine 1.21 H (0.52-1.04) mg/dL POC Glucose (mg/dL) 116 H (75-99) mg/dL Calcium 7.1 L (8.4-10.2) mg/dL AST 13 L (14-36) U/L Total Protein 4.9 L (6.3-8.2) g/dL Albumin 2.5 L (3.5-5.0) g/dL Assessment and Plan Assessment: Impression: Acute hypoxic respiratory failure secondary to MRSA pneumonia involving mostly the right upper lobe requiring intubation and mechanical ventilation, extubated on 03/25/2020 Multiple myeloma, presently on Revlimid. History of chronic obstructive pulmonary disease and tobacco dependence syndrome. Acute on chronic kidney disease. Stage III. Chronic diastolic congestive heart failure Paroxysmal atrial fibrillation. Remains on Lasix. Previous history of CVA. Benign essential hypertension. Dyslipidemia. Generalized anxiety disorder. Thrombocytopenia, being addressed by oncology. Recommendation: Continue antifungal therapy along with antibiotics. Continue diuretics/Lasix 40 mg by mouth daily May have to increase the dose. Continue bronchodilators. Continue GI and DVT prophylaxis. The chest x-ray in a.m. Continue prednisone. Continue aspiration precautions. Continue to monitor platelets. Continue to monitor renal profile. Will follow. Time with Patient: Less than 30
--- NOTE | 2020-03-31 16:19 | P.DS ---
Providers Date of admission: 03/08/20 05:56 Expected date of discharge: 03/31/20 Attending physician: Christopher Serrano Consults: 03/08/20 06:01 Consult Physician Routine Consulting Provider: Bin Murphy Consult Reason/Comments: Atrial flutter with rapid ventricular rate Do you want consulting provider notified?: Yes 03/08/20 06:02 Consult Physician Routine Consulting Provider: Bette Cole Consult Reason/Comments: Severe pneumonia Do you want consulting provider notified?: Yes 03/08/20 06:05 Consult Physician Routine Consulting Provider: Chriss Hart Consult Reason/Comments: COPD patient. Right upper lobe pneumonia. A flutter with RVR. Do you want consulting provider notified?: Already Contacted 03/11/20 12:47 Consult Physician Routine Consulting Provider: Efren Larson Consult Reason/Comments: anemia Do you want consulting provider notified?: Yes Primary care physician: [facility] Course: Presenting complaint: Tired Interval history: This is a very pleasant 69-year-old patient of Dr. Villalobos. Chronic stable medical conditions include paroxysmal atrial flutter fibrillation, , CHF with an EF of 50-55%, tricuspid and mitral regurgitation, secondary pulmonary hypertension, chronic kidney disease stage IV, hypertension, hyperlipidemia,. Patient also being treated for multiple myeloma. on REVLIMID Patient presented with shortness of breath confusion cough congestion. Admitted with right upper lobe pneumonia, acute delirium. Started on IV aztreonam and azithromycin. Developed black tarry stools. Dropped hemoglobin. 1 unit of blood given. Patient desaturated. Moved to the ICU on March 11. Intubated March 14-placed on IV levo fed propofol antibiotics changed to IV meropenem. bronchoscopy done by Dr. Hart[March 16]-thick philomena, secretions obtained. Extubated March 19. Patient had to be reintubated. Patient underwent repeat bronchoscopy on March 23. Extubated March 25. Today-oral intake good. Breathing better. Laying in bed comfortable. Discussed with ID.-1 week of IV vancomycin. DC antifungal. Discussed with event planner. Diet advanced per speech therapist. Patient to follow-up with oncology, pulmonary Discussion and discharge planning more than 35 minutes Consultation: Dr. Cole from ID Dr. Hart and partners from pulmonary Dr. Larson and partners from oncology Physical examination: VITAL SIGNS: 97.5, 81, 18, 157 with 77, 97% on 2 L GENERAL: Reclining in bed, comfortable. EYES: Pupils equal. Conjunctiva pale HEENT: Dry lips. NECK: JVD not raised; masses not palpable. HEART: First and second heart sounds are normal; no edema. LUNGS: Respiratory rate increased, decreased breath sounds ABDOMEN: Soft, nontender, liver spleen not palpable, no masses palpable. PSYCH: AO - times three. Mood and affect more cheerful today MUSCULOSKELETAL: Diffuse wasting of muscles Investigations, reviewed in the clinical context: March 31: White count 4.7 hemoglobin 8.3 platelets 36 potassium 3.2 creatinine 1.21 albumin 2.5 March 29: White count 5.7 hemoglobin 8.6 platelets 49 potassium 3.7 creatinine 1.26 March 28: White count 5.9 hemoglobin 8.5 platelets 53 potassium 3.6 bun 40 creatinine 1.25 March 27: Sodium 148 potassium 4 creatinine 1.16 March 26: White count 5.3 hemoglobin 9.2 platelets 63 potassium 4.3 creatinine 1.11 March 25: White count 4.3 hemoglobin 8.1 platelet 61 potassium 3.5 bun 49 creatinine 1.21 March 19: White count 9.5 hemoglobin 10.8 platelets 40 potassium 3.9 bun 66 creatinine 1.7 to March 18: White count 9.1 hemoglobin 10.2 potassium 3.7 bun 62 creatinine 1.83 Chest x-ray film personally reviewed by me-infiltrate clearing March 16: White count 9.3 hemoglobin 10 platelets 46 potassium 4.2 BUN 50 creatinine 1.88 March 15: White count 7.4 hemoglobin 5.9 platelets 50 BUN 38 creatinine 1.5 for March 14: White count 12.3 hemoglobin 7.4 potassium 4.8 bun 39 creatinine 1.43. ABG show pH of 7.15 March 13: White count 15.4 hemoglobin 8.7 platelets 91 bun 36 creatinine 1.48 March 12: White count 23.4 hemoglobin 9.2 platelets 113. Check stat x-ray film-right upper lobe dense infiltrate March 11: White count 9.2 hemoglobin 6 platelets 86potassium 5 creatinine 1.56 pro-calcitonin 1.34 Pro-calcitonin 1.84 White count 14 hemoglobin 8.1 platelets 134 potassium 4.2 BUN 47 creatinine 2.64 Lactic acid 4.9 Coronavirus P/Cr-not detected VQ scan-low probability for PE EKG tracing personally reviewed by me-normal sinus rhythm some ST segment changes Chest d-lou-lyywlf infiltrate throughout the right upper lobe and the superior segment of the right lower lobe Gmetkkbfkpjf-fpldsbxe-Nudbtbj albicans Sputum-Nicolle albicans Bronchial washing culture from March 23-MRSA Assessment: -Right upper lobe pneumonia, MRSA in an immunosuppressed patient, , POA,- -Paroxysmal atrial flutter and fibrillation-with rapid ventricular rate then went back into sinus rhythm -Anemia multifactorial including that of chronic disease including multiple myeloma -Acute COPD exacerbation in a ex-smoker, improved -Chronic congestive heart failure from systolic and diastolic dysfunction EF 50- 55% -Moderate tricuspid and severe mitral regurgitation, nontraumatic -Severe secondary pulmonary hypertension secondary to CHF and COPD -Multiple myeloma on chemotherapy -Chronic kidney disease secondary to multiple myeloma stage IV and chronic interstitial nephropathy -Essential hypertension -Hyperlipidemia -Severe protein calorie malnutrition due to poor oral intake. BMI 14.4 -Chronic medical debility -Multiple old rib fractures due to multiple myeloma -Acute GI bleed dropping hemoglobin down to 6.-Received total of 3 units of blood, endoscopy deferred for now. -Acute hypoxic respiratory failure-worsening overnight-intubated on the ventilator March 14-extubated March 19. Currently on 4 L nasal cannula -Hypotensive status post levo fed -Acute kidney injury possibly combination of ATN and prerenal-improved -Full code Disposition: [facility] [place] [facility] Concerns: Follow up with ENT for to rule out vocal fold pathology Patient Condition at Discharge: Stable Plan - Discharge Summary Discharge Rx Participant: Yes New Discharge Prescriptions: New Furosemide [Lasix] 40 mg PO DAILY tab predniSONE 10 mg PO DIRECTED tab Pantoprazole [Protonix] 40 mg PO BID tablet. Acetaminophen Tab [Tylenol] 650 mg PO Q4HR PRN tab PRN Reason: Fever And/ Or Pain Vancomycin 750 mg IVPB Q36H #5 vial Continue Sertraline [Zoloft] 200 mg PO PC-LUNCH calcitrioL [Calcitriol] 0.25 mcg PO PC-LUNCH Acyclovir 400 mg PO PC-LUNCH Calcium Carb-Vit D 500Mg-5Mcg [Oscal 500+D 5 Mcg (200 Iu)] 2 tab PO DAILY@1200 Budesonide-Formot 160-4.5 Mcg [Symbicort 160-4.5 Mcg Inhaler] 2 puff INHALATION RT-BID #1 each Latanoprost [Xalatan 0.005%] 1 drop BOTH EYES HS Lenalidomide [Revlimid] 5 mg PO Q48H Apixaban [Eliquis] 2.5 mg PO BID@1199,2100 Changed Ipratropium-Albuterol Nebulize [Duoneb 0.5 mg-3 mg/3 ml Soln] 3 ml INHALATION TID #0 Sodium Bicarbonate Tab 650 mg PO BID #0 Discontinued Potassium Chloride [Klor-Con 20] 20 meq PO PC-LUNCH Cyclobenzaprine [Flexeril] 10 mg PO BID@1199,2099 Sodium Bicarbonate Tab 650 mg PO HS No Action Metoprolol Tartrate [Lopressor] 12.5 mg PO BID@1199,2100 Discharge Medication List Sertraline [Zoloft] 200 mg PO PC-LUNCH 01/28/17 [History] calcitrioL [Calcitriol] 0.25 mcg PO PC-LUNCH 10/23/17 [History] Acyclovir 400 mg PO PC-LUNCH 12/28/17 [History] Calcium Carb-Vit D 500Mg-5Mcg [Oscal 500+D 5 Mcg (200 Iu)] 2 tab PO DAILY@1200 08/15/18 [History] Metoprolol Tartrate [Lopressor] 12.5 mg PO BID@1199,209908/15/18 [History] Budesonide-Formot 160-4.5 Mcg [Symbicort 160-4.5 Mcg Inhaler] 2 puff INHALATION RT-BID #1 each 08/20/18 [Rx] Latanoprost [Xalatan 0.005%] 1 drop BOTH EYES HS 03/15/19 [History] Apixaban [Eliquis] 2.5 mg PO BID@1200,209905/03/19 [History] Lenalidomide [Revlimid] 5 mg PO Q48H 05/03/19 [History] Acetaminophen Tab [Tylenol] 650 mg PO Q4HR PRN tab 03/31/20 [Rx] Furosemide [Lasix] 40 mg PO DAILY tab 03/31/20 [Rx] Ipratropium-Albuterol Nebulize [Duoneb 0.5 mg-3 mg/3 ml Soln] 3 ml INHALATION TID #0 03/31/20 [Rx] Pantoprazole [Protonix] 40 mg PO BID tablet. 03/31/20 [Rx] Sodium Bicarbonate Tab 650 mg PO BID #0 03/31/20 [Rx] Vancomycin 750 mg IVPB Q36H #5 vial 03/31/20 [Rx] predniSONE 10 mg PO DIRECTED tab 03/31/20 [Rx] Follow up Appointment(s)/Referral(s): Sparkle Sainz MD [STAFF PHYSICIAN] - 2 Weeks Kirby Villalobos DO [Primary Care Provider] - 1 Week John Morse MD [STAFF PHYSICIAN] - 2 Weeks
--- NOTE | 2020-03-31 16:26 | PN ---
PROGRESS NOTE DATE OF SERVICE: 03/31/2020 REASON FOR FOLLOWUP: MRSA pneumonia. INTERVAL HISTORY: The patient is currently afebrile. The patient is breathing comfortably. The patient denies having any chest pain or shortness of breath. Minimal cough. No abdominal pain or diarrhea. PHYSICAL EXAMINATION: Blood pressure 157/77 with a pulse of 81, temperature 97.5. She is 97% on 2 L nasal cannula. General description is an elderly female lying in bed in no distress. RESPIRATORY SYSTEM: Unlabored breathing. Clear to auscultation anteriorly. HEART: S1, S2. Regular rate and rhythm. ABDOMEN: Soft. No tenderness. LABS: Hemoglobin 8.3, white count 4.7. BUN of 29, creatinine 1.21. DIAGNOSTIC IMPRESSION AND PLAN: Patient with methicillin-resistant Staphylococcus aeruginosa pneumonia, currently covered with IV vancomycin; to continue to finish a 2-week course of therapy while monitoring her kidney function closely. Continue with supportive care. MMODL / IJN: [id number] /
[2020-03-31 16:41] LABS: Glucose,Whole Blood 126 mg/dL (75-99)
[2020-03-31 17:36] VITALS: BP 152/88; PULSE 82
[2020-03-31] MEDS: LATANOPROST 0.005% OPHTH DROPS 2.5 ML BTL BOTH EYES SCH (18:26)
--- NOTE | 2020-03-31 19:39 | P.PN ---
Subjective Progress Note Date: 03/31/20 Principal diagnosis: Multiple Myeloma and Respiratory Failure Patient planning for discharge today. PLatelets are 36K today (mild decrease). Discussed with night nurse to hold second dose of Eliquis. Order sent to Dr. Larson's helpdesk specialist and [place] staff to call patient in am to have CBC drawn and if >50K may resume Eliquis. PM Nurse will relay verbal message to patient prior to discharge tonight Objective - Vital Signs Vital signs: Vital Signs Temp 97.5 F L 03/31/20 11:59 Pulse 82 03/31/20 16:14 Resp 18 03/31/20 16:14 BP 152/88 03/31/20 16:00 Pulse Ox 93 L 03/31/20 16:00 Intake & Output 03/31/20 03/31/20 04/01/20 06:59 18:59 06:59 Intake Total 500 940 Output Total 200 3400 Balance 300 -2460 Weight 42.5 kg Intake: IV 100 Sodium Chloride 0.9% 1, 100 000 ml @ 20 mls/hr IV . Q24H [facility] Rx#:[id number] Oral 940 Tube Feeding 400 Output: Urine 200 1400 Stool 2000 Other: Voiding Method Indwelling Catheter Indwelling Catheter ABP, PAP, CO, CI - Last Documented Arterial Blood Pressure 146/53 - Exam - Constitutional General appearance: Present: cooperative, no acute distress, thin - EENT EENT Comment(s): dry mucus membranes, dry cracked, chapped lips Eyes: Present: anicteric sclerae, EOMI ENT: Present: hearing grossly normal - Respiratory Respiratory: left: rales (anterior, expiratory), bilateral: diminished - Cardiovascular Rhythm: regular Heart sounds: normal: S1, S2 Abnormal Heart Sounds: Absent: systolic murmur, diastolic murmur, rub, S3 Gallop, S4 Gallop, click, other - Peripheral edema foot Peripheral Edema: bilateral: Trace - Gastrointestinal General gastrointestinal: Present: normal bowel sounds, soft. Absent: absent bowel sounds, decreased bowel sounds, distended, hepatomegaly, hyperactive bowel sounds, organomegaly, rigid, scaphoid, splenomegaly, tenderness, umbilical hernia, ventral hernia - Neurologic Neurologic: Present: CNII-XII intact - Musculoskeletal Musculoskeletal: Present: generalized weakness - Psychiatric Psychiatric: Present: A&O x's 3, appropriate affect, intact judgment & insight - Labs CBC & Chem 7: 03/31/20 07:11 03/31/20 07:11 Labs: Abnormal Lab Results - Last 24 Hours (Table) 03/30/20 03/31/20 03/31/20 Range/Units 20:02 07:11 07:11 RBC 2.62 L (3.80-5.40) m/uL Hgb 8.3 L (11.4-16.0) gm/dL Hct 25.2 L (34.0-46.0) % RDW 19.9 H (11.5-15.5) % Plt Count 36 L (150-450) k/uL Lymphocytes # 0.3 L (1.0-4.8) k/uL Potassium 3.2 L (3.5-5.1) mmol/L Chloride 112 H (98-107) mmol/L BUN 29 H (7-17) mg/dL Creatinine 1.21 H (0.52-1.04) mg/dL POC Glucose (mg/dL) 129 H (75-99) mg/dL Calcium 7.1 L (8.4-10.2) mg/dL AST 13 L (14-36) U/L Total Protein 4.9 L (6.3-8.2) g/dL Albumin 2.5 L (3.5-5.0) g/dL 03/31/20 03/31/20 Range/Units 11:36 16:38 RBC (3.80-5.40) m/uL Hgb (11.4-16.0) gm/dL Hct (34.0-46.0) % RDW (11.5-15.5) % Plt Count (150-450) k/uL Lymphocytes # (1.0-4.8) k/uL Potassium (3.5-5.1) mmol/L Chloride (98-107) mmol/L BUN (7-17) mg/dL Creatinine (0.52-1.04) mg/dL POC Glucose (mg/dL) 116 H 126 H (75-99) mg/dL Calcium (8.4-10.2) mg/dL AST (14-36) U/L Total Protein (6.3-8.2) g/dL Albumin (3.5-5.0) g/dL Assessment and Plan (1) Atrial flutter with rapid ventricular response Current Visit: Yes Status: Acute Code(s): I48.92 - UNSPECIFIED ATRIAL FLUTTER SNOMED Code(s): 9267225 (2) Chronic kidney disease Current Visit: Yes Status: Chronic Code(s): N18.9 - CHRONIC KIDNEY DISEASE, UNSPECIFIED SNOMED Code(s): 113483476 (3) Acute exacerbation of chronic obstructive airways disease Current Visit: No Status: Acute Code(s): J44.1 - CHRONIC OBSTRUCTIVE PULMONARY DISEASE W (ACUTE) EXACERBATION SNOMED Code(s): 007745778 (4) Multiple myeloma not having achieved remission Current Visit: No Status: Chronic Priority: Medium Code(s): C90.00 - MULTIPLE MYELOMA NOT HAVING ACHIEVED REMISSION SNOMED Code(s): 451831268 (5) Pancytopenia Current Visit: No Status: Chronic Priority: Medium Code(s): D61.818 - OTHER PANCYTOPENIA SNOMED Code(s): 979287344 Plan: Assessment and Plan [place] Multiple myeloma not having achieved remission - Treatment continues to remain on hold (Revlimid) with Cytopenias and acute illness - Will anticipate another 2-3 week hold for recovery of this hospitalization and can follow-up with Dr. Larson as outpatient at that time. - She has been instructed to not resume until re-evaluation as outpatient - Her most recent M-spike was 0.19g/dl, stable. Pancytopenia - Secondary to Chronic disease, acute on chronic infectious/inflammatory response, Multiple myeloma, and chemotherapy - Continue to hold Revlamid for now - Transfuse hemoglobin less than 7, stable today, no transfusion required - Platelets recovering and anticoagulation has resumed Hypogammaglobulinemia due to multiple myeloma - Status Post IVIG on 03/20/2020 for IgG of 489 and severe acute illness Atrial flutter with rapid ventricular response - Cardiology Following - regular rate, improving - Eliquis Held today secondary to platelets less than 50K - MONITOR daily CBC Chronic kidney disease - Nephrology Following - Stable as of yesterday - Recheck in am Acute exacerbation of chronic obstructive airways disease - Resolved, Extubated - Continued slow improvement - S/P bronch with washings, neg for malignancy - S/P EGD with biopsy, negative path DISPO PLAN: - Primary team placed discharge orders - ELIQUIS on hold until platelet count greater than 50K - RN will relay message to Patient prior to discharge to hold eliquis until CBC at Dr. Gant office in am and follow-up with Dr. LARSON 1-2 weeks to discuss resuming revlamid.
[2020-03-31 20:25] LABS: Glucose,Whole Blood 155 mg/dL (75-99)
--- NOTE | 2020-04-01 09:44 | CDI ---
Documentation Clarification Form Date: 04/01/20 From: Vicky Ng Phone: If you have a question about this query, please contact Lucero Pemberton, Roofer at [phone] between 8am and 5pm. Admit Date: 03/08/2020 05:56:00 AM Patient Name: Lucero Coleman Visit Number: [id number] Discharge Date: 03/31/2020 09:07:00 PM ATTENTION: The Clinical Documentation Specialists (CDI) and [facility] Coding Staff appreciate your assistance in clarifying documentation. Please respond to the clarification below the line at the bottom and electronically sign. The CDI & [facility] Coding staff will review the response and follow-up if needed. Please note: Queries are made part of the Legal Health Record. If you have any questions, please contact the author of this message via ITS. Dr. Christopher Serrano, Atrial Flutter is documented in the ED note, H&P, consults and numerous PNs. History/Risk factors: MRSA sepsis, MRSA pneumonia, ARDS, COPD/emphysema, HTN w CHF w CKD IV, rheumatoid arthritis, anemia Clinical Indicators: Patient is tachycardia and found to have atrial flutter with ventricular rate in the 130's. 03/08 EKG: Atrial flutter with variable AV block, Vent rate: 136, QRS-78, QT/QTc- 306/460 Treatment: Diltazem drip In your professional opinion, in order to capture the severity of condition; can you please clarify the type of Atrial Flutter if known? Typical/Type I Atypical/Type II Other, please specify Unable to determine Unable to determine MTDD
== END 2020-03-31 21:07 | DRG 870 ==
LOC: EC 03:53 → 3SCARD 05:56 → 2SICU 03-12 08:49 → 6NMEDSUR 03-21 12:06 → 2SICU 03-23 05:42 → 3SCARD 03-28 11:38
PROVIDERS: ADMIT Hospitalist; ATTEND Hospitalist
DX: A41.02 Sepsis due to Methicillin resistant Staphylococcus aureus (principal); N17.0 Acute kidney failure with tubular necrosis; J80 Acute respiratory distress syndrome; J15.212 Pneumonia due to Methicillin resistant Staphylococcus aureus; E43 Unspecified severe protein-calorie malnutrition; K29.71 Gastritis, unspecified, with bleeding; R57.9 Shock, unspecified; J96.11 Chronic respiratory failure with hypoxia; D61.818 Other pancytopenia; J96.12 Chronic respiratory failure with hypercapnia; R64 Cachexia; E87.4 Mixed disorder of acid-base balance; I13.0 Hypertensive heart and chronic kidney disease with heart failure and stage 1 through stage 4 chronic kidney disease, or unspecified chronic kidney disease; D80.1 Nonfamilial hypogammaglobulinemia; F05 Delirium due to known physiological condition; D62 Acute posthemorrhagic anemia; C90.00 Multiple myeloma not having achieved remission; N18.4 Chronic kidney disease, stage 4 (severe); Z68.1 Body mass index [BMI] 19.9 or less, adult; J98.11 Atelectasis; B37.0 Candidal stomatitis; I50.42 Chronic combined systolic (congestive) and diastolic (congestive) heart failure; I48.92 Unspecified atrial flutter; L89.151 Pressure ulcer of sacral region, stage 1; J43.9 Emphysema, unspecified; I27.29 Other secondary pulmonary hypertension; I48.0 Paroxysmal atrial fibrillation; M06.9 Rheumatoid arthritis, unspecified; I69.344 Monoplegia of lower limb following cerebral infarction affecting left non-dominant side; Z20.822 Contact with and (suspected) exposure to COVID-19; D63.1 Anemia in chronic kidney disease; R54 Age-related physical debility; D63.0 Anemia in neoplastic disease; E86.0 Dehydration; B00.1 Herpesviral vesicular dermatitis; Y95 Nosocomial condition; F32.9 Major depressive disorder, single episode, unspecified; I08.1 Rheumatic disorders of both mitral and tricuspid valves; F41.1 Generalized anxiety disorder; E78.5 Hyperlipidemia, unspecified; M84.58XS Pathological fracture in neoplastic disease, other specified site, sequela; H40.9 Unspecified glaucoma; M54.5 Low back pain; M79.604 Pain in right leg; H35.30 Unspecified macular degeneration; M19.90 Unspecified osteoarthritis, unspecified site; Z79.01 Long term (current) use of anticoagulants; Z79.51 Long term (current) use of inhaled steroids; Z79.899 Other long term (current) drug therapy; Z85.41 Personal history of malignant neoplasm of cervix uteri; Z98.1 Arthrodesis status; Z90.710 Acquired absence of both cervix and uterus; Z87.891 Personal history of nicotine dependence; Z87.01 Personal history of pneumonia (recurrent); Z87.440 Personal history of urinary (tract) infections; Z98.890 Other specified postprocedural states; Z71.3 Dietary counseling and surveillance; Z88.1 Allergy status to other antibiotic agents; Z88.5 Allergy status to narcotic agent; Z88.0 Allergy status to penicillin; Z88.2 Allergy status to sulfonamides; Z83.6 Family history of other diseases of the respiratory system; Z80.1 Family history of malignant neoplasm of trachea, bronchus and lung
CPT/HCPCS: 31645; 36410; 36415; 36600; 43239; 71045; 71046; 74230; 76937; 78582; 80048; 80053; 80202; 81003; 82330; 82565; 82607; 82668; 82728; 82784; 82805; 83036; 83540; 83550; 83605; 83615; 83735; 83880; 83883; 83921; 84145; 84165; 84484; 85025; 85027; 85045; 85379; 85384; 85610; 85730; 86140; 86850; 86900; 86901; 86920; 87040; 87070; 87077; 87102; 87116; 87186; 87205; 87206; 87252; 87324; 87496; 87498; 87502; 87529; 87634; 87635; 87798; 88108; 88305; 88342; 89050; 93005; 93306; 94002; 94003; 94640; 94660; 94760; 96365; 96366; 96368; 96376; 99291